=== PATIENT | female | born 1950 | race Caucasian/White ===

== ENCOUNTER 2023-01-09 10:41 | Outpatient (RCR) | payer MEDICARE, OTHER, SELFPAY | END 2023-02-26 11:42 | disposition home or self-care (01) | LOC: PT 10:41 | DX: S82.009D Unspecified fracture of unspecified patella, subsequent encounter for closed fracture with routine healing (principal) | CPT/HCPCS: 97110; 97112; 97113; 97140; 97162 ==

== ENCOUNTER 2023-02-04 08:47 | Outpatient (OUT) | payer MEDICARE, OTHER, SELFPAY ==
--- NOTE | 2023-02-04 08:58 | US_ITS ---
[address] [address] Patient Name: SALOMÓN ROMERO MRN: [id number] date: 1950 Sex: F Assigned Patient Location: US Current Patient Location: US Accession/Order Number: [id number] Exam Date: 02/04/2023 09:00 Report Date: 02/04/2023 11:06 At the request of: SAIMA RIGGS Procedure: US thyroid EXAMINATION: US thyroid HISTORY: Thyroid Nodule E04.1 COMPARISON: Ultrasound thyroid 10/18/2022 FINDINGS: RIGHT LOBE: Normal size and echotexture. Contains an incidental 4 mm colloid cyst. Lobe size: 4.0 x 1.5 x 1.6 cm LEFT LOBE: Homogeneous echotexture. Contains a stable 13 x 10 x 6 mm TR 3 nodule. Lobe size: 3.0 x 1.1 x 1.3 cm ISTHMUS: Normal size and echotexture. Thickness: 2 mm US/US thyroid IMPRESSION: 1. Stable 13 mm TR 3 nodule within left lobe. Follow-up in one year is recommended. TR3 (mildly suspicious): > 1.5 cm, follow-up ultrasound in 1, 3, and 5 years. > 2.5 cm, fine needle aspiration. Electronically authenticated by: LUPIS OZUNA Date: 02/04/2023 11:06
== END 2023-02-04 08:48 | disposition home or self-care (01) ==
LOC: US 08:48
PROVIDERS: Visit Provider Family Medicine
DX: E04.1 Nontoxic single thyroid nodule (principal)
CPT/HCPCS: 76536

== ENCOUNTER 2023-05-22 14:50 | Outpatient (REF) | payer MEDICARE, OTHER, SELFPAY ==
[2023-05-22 15:59] LABS: Bilirubin Urine NEGATIVE (NEGATIVE); Blood Urine NEGATIVE (NEGATIVE); Clarity Urine CLEAR (CLEAR); Color Urine LT. YELLOW (YELLOW); Glucose Urine UA NEGATIVE (NEGATIVE); Ketones Urine NEGATIVE (NEGATIVE); Leukocyte Esterase Urine MODERATE (NEGATIVE); Nitrite Urine POSITIVE (NEGATIVE); Protein Urine NEGATIVE (NEG/TRACE); Urobilinogen Urine 0.2 EU/dL (0.2-1.0)
[2023-05-22 16:19] LABS: Bacteria Urine LARGE #/HPF (NONE SEEN); Crystals Seen? None Seen #/HPF (None Seen); Mucus Urine NONE SEEN (NONE SEEN); RBC Urine 0-2 #/HPF (0-2); Squamous Epithelial Cell Urine FEW #/LPF (NONE/RARE)
[2023-05-22 16:20] LABS: Cast Seen? NONE SEEN #/LPF (NONE SEEN)
== END 2023-05-22 14:51 | disposition home or self-care (01) ==
LOC: LAB 14:50
PROVIDERS: Visit Provider Nurse Practitioner Family
DX: R35.0 Frequency of micturition (principal)
CPT/HCPCS: 81001; 87086; 87150; 87186

== ENCOUNTER 2023-07-18 09:26 | Outpatient (OUT) | payer MEDICARE, OTHER, SELFPAY ==
[2023-07-18 09:52] LABS: Bilirubin Urine NEGATIVE (NEGATIVE); Blood Urine NEGATIVE (NEGATIVE); Clarity Urine SL CLOUDY (CLEAR); Color Urine LT. YELLOW (YELLOW); Glucose Urine UA NEGATIVE (NEGATIVE); Ketones Urine NEGATIVE (NEGATIVE); Leukocyte Esterase Urine LARGE (NEGATIVE); Nitrite Urine NEGATIVE (NEGATIVE); Protein Urine NEGATIVE (NEG/TRACE); Urobilinogen Urine 0.2 EU/dL (0.2-1.0); pH Urine 5.5 (5.0-9.0)
[2023-07-18 10:00] LABS: WBC Urine 20-50 #/HPF (NONE SEEN)
[2023-07-18 10:01] LABS: Bacteria Urine SMALL #/HPF (NONE SEEN); Cast Seen? NONE SEEN #/LPF (NONE SEEN); Crystals Seen? None Seen #/HPF (None Seen); Mucus Urine NONE SEEN (NONE SEEN); RBC Urine 0-2 #/HPF (0-2); Squamous Epithelial Cell Urine FEW #/LPF (NONE/RARE)
== END 2023-07-18 09:27 | disposition home or self-care (01) ==
LOC: LAB 09:28
PROVIDERS: PCP Nurse Practitioner Family; Visit Provider Nurse Practitioner Family
DX: R30.0 Dysuria (principal)
CPT/HCPCS: 81001; 87086; 87150; 87186

== ENCOUNTER 2023-07-31 16:00 | Outpatient (REF) | payer MEDICARE, OTHER, SELFPAY ==
[2023-07-31 16:49] LABS: Bilirubin Urine NEGATIVE (NEGATIVE); Blood Urine NEGATIVE (NEGATIVE); Color Urine LT. YELLOW (YELLOW); Glucose Urine UA NEGATIVE (NEGATIVE); Ketones Urine NEGATIVE (NEGATIVE); Leukocyte Esterase Urine SMALL (NEGATIVE); Nitrite Urine NEGATIVE (NEGATIVE); Protein Urine NEGATIVE (NEG/TRACE); Specific Gravity Urine 1.025 (1.005-1.025); Urobilinogen Urine 0.2 EU/dL (0.2-1.0)
[2023-07-31 16:56] LABS: Clarity Urine SLIGHTLY CLOUDY (CLEAR); RBC Urine NONE SEEN #/HPF (0-2)
[2023-07-31 16:57] LABS: Bacteria Urine TRACE #/HPF (NONE SEEN); Cast Seen? NONE SEEN #/LPF (NONE SEEN); Crystals Seen? None Seen #/HPF (None Seen); Mucus Urine NONE SEEN (NONE SEEN); Squamous Epithelial Cell Urine RARE #/LPF (NONE/RARE)
== END 2023-07-31 16:01 | disposition home or self-care (01) ==
LOC: LAB 16:00
PROVIDERS: PCP Nurse Practitioner Family; Visit Provider Nurse Practitioner Family
DX: R30.0 Dysuria (principal)
CPT/HCPCS: 81001; 87086

== ENCOUNTER 2023-08-05 16:21 | Outpatient (REF) | payer MEDICARE, OTHER, SELFPAY ==
[2023-08-05 16:41] LABS: Bilirubin Urine NEGATIVE (NEGATIVE); Blood Urine NEGATIVE (NEGATIVE); Clarity Urine CLEAR (CLEAR); Color Urine LT. YELLOW (YELLOW); Glucose Urine UA NEGATIVE (NEGATIVE); Ketones Urine NEGATIVE (NEGATIVE); Leukocyte Esterase Urine SMALL (NEGATIVE); Nitrite Urine NEGATIVE (NEGATIVE); Protein Urine NEGATIVE (NEG/TRACE); Specific Gravity Urine 1.025 (1.005-1.025); Urobilinogen Urine 0.2 EU/dL (0.2-1.0); pH Urine 5.5 (5.0-9.0)
[2023-08-05 16:54] LABS: Bacteria Urine SMALL #/HPF (NONE SEEN); Cast Seen? NONE SEEN #/LPF (NONE SEEN); Crystals Seen? None Seen #/HPF (None Seen); Mucus Urine NONE SEEN (NONE SEEN); RBC Urine 0-2 #/HPF (0-2); Squamous Epithelial Cell Urine MODERATE #/LPF (NONE/RARE)
== END 2023-08-05 16:22 | disposition home or self-care (01) ==
LOC: LAB 16:21
PROVIDERS: PCP Nurse Practitioner Family; Visit Provider Nurse Practitioner Family
DX: N39.0 Urinary tract infection, site not specified (principal)
CPT/HCPCS: 81001; 87086

== ENCOUNTER 2023-08-26 06:48 | Outpatient (OUT) | payer MEDICARE, OTHER, SELFPAY ==
--- NOTE | 2023-08-26 08:00 | CT_ITS ---
[address] [address] Patient Name: SALOMÓN ROMERO MRN: [id number] date: 1950 Sex: F Assigned Patient Location: CT Current Patient Location: CT Accession/Order Number: [id number] Exam Date: 08/26/2023 07:55 Report Date: 08/26/2023 08:23 At the request of: SHAMIR RECINOS Procedure: CT abdomen pelvis wo con EXAMINATION: CT abdomen pelvis wo con HISTORY: Flank Pain R10.9, Urinary Tract Infection N39.0 COMPARISON: No relevant comparison available. TECHNIQUE: Axial, Coronal, and Sagittal images were created without IV contrast. Dose reduction techniques were achieved by using automated exposure control and/or adjustment of mA and/or kV according to patient size and/or use of iterative reconstruction technique. FINDINGS: LUNG BASES: Right basilar bronchiectasis LIVER: No enlargement, atrophy, abnormal density, or significant focal lesion. BILIARY: No dilatation or calcification. PANCREAS: No lesion, fluid collection, ductal dilatation, or atrophy. SPLEEN: No enlargement or focal lesion. ADRENALS: No mass or enlargement. KIDNEYS: Punctate bilateral nonobstructing nephrolithiasis. No hydronephrosis BOWEL/MESENTERY: No visible mass, obstruction, or bowel wall thickening. AORTA/VASCULAR: No aneurysm. Moderate diffuse atherosclerosis RETROPERITONEUM: No mass or adenopathy. LYMPH NODES: No adenopathy. URINARY BLADDER: Moderate fluid distention PELVIC ORGANS: Hysterectomy ABDOMINAL WALL: Density in the left breast possibly an implant, partially visualized BONES: No bony lesion or fracture. Rotatory levocurvature with moderate degenerative changes OTHER: Negative. CT/CT abdomen pelvis wo con IMPRESSION: No acute abnormality Electronically authenticated by: ILDEFONSO HO Date: 08/26/2023 08:23
== END 2023-08-26 06:49 | disposition home or self-care (01) ==
LOC: CT 06:48
PROVIDERS: PCP Nurse Practitioner Family; Visit Provider Urology
DX: R10.9 Unspecified abdominal pain (principal); N39.0 Urinary tract infection, site not specified
CPT/HCPCS: 74176

== ENCOUNTER 2023-09-08 07:22 | Day surgery (SDC) | payer MEDICARE, OTHER, SELFPAY ==
[2023-09-08 07:37] VITALS: BP 150/86; PULSE 69; RESP 20; TEMP 36.2; O2SAT 100
[2023-09-08] MEDS: LIDOCAINE 2% JELLY 10 ML UR (08:49)
[2023-09-08 08:52] VITALS: BP 134/87; PULSE 67; RESP 18; O2SAT 100
--- NOTE | 2023-09-08 09:01 | P.URON_ITS ---
Urology Surgery Operative Note Operative Note Procedure Date: 09/08/23 Time Out Performed: yes Pre-op Diagnosis: Urethral mass Post-op Diagnosis: same as pre-op Procedures performed: Cystoscopy Anesthesia: local Primary Surgeon: Star Campos Complications: None Estimated blood loss (mL): 0 Findings: Urethral prolapse Specimens: None Indications for Procedures: This lady has a urethral mass that she has palpated. It has been bothering her quite a bit. She has had a UTI. She is currently taking daily Augmentin. She now presents for cystoscopy and possible urethral dilation. She has signed an informed consent after risks were explained. Detailed description of Procedure: The patient was kept on the [facility] bed and brought to the endoscopy suite. She was in the supine position. Her legs were frog-legged and her perineum and genitalia were sterilely prepped and draped in the usual fashion. Timeout was done by all parties in the room. We all agreed upon the patient's identification and the planned procedures for this patient. 2% lidocaine gel was passed per urethra. I started by inspecting her urethra. 1 could see there was a 1-1/2 to 2 cm protruding fleshy mass. This seems to be simply prolapse of her urethral mucosa versus a neoplasm. I then passed a flexible cystoscope per urethra and into the bladder. Careful street endoscopy revealed no evidence of any tumors stones or erythematous mucosal lesions. The scope was retroverted upon itself and no new findings were noted. There was high-grade trabeculation. The scope was then removed. With Valsalva maneuver she did not leak. She had no prolapse. She was then discharged to home. I did send a prescription for Myrbetriq 50 mg daily. We will get her scheduled for excision of urethral prolapse under anesthesia.
[2023-09-08 09:03] VITALS: BP 141/72; PULSE 61; RESP 18; O2SAT 98
== END 2023-09-08 09:11 | disposition home or self-care (01) ==
PROVIDERS: PCP Nurse Practitioner Family; Visit Provider Urology
PROC: (CPT 52000; principal; 2023-09-08 08:05)
DX: N81.0 Urethrocele (principal); R33.9 Retention of urine, unspecified; Z87.440 Personal history of urinary (tract) infections; Z85.3 Personal history of malignant neoplasm of breast; M19.90 Unspecified osteoarthritis, unspecified site; Z87.891 Personal history of nicotine dependence; Z90.10 Acquired absence of unspecified breast and nipple; Z79.899 Other long term (current) drug therapy
CPT/HCPCS: 52000

== ENCOUNTER 2023-09-11 14:16 | Outpatient (OUT) | payer MEDICARE, OTHER, SELFPAY ==
--- NOTE | 2023-09-11 14:22 | ECG_ITS ---
[facility] Test Date: 2023-09-11 Pat Name: SALOMÓN ROMERO Department: Room: - Gender: Female [employer]ter: : 1950 Requested By: SHAMIR RECINOS Order Number: [id number] Reading MD: MAICOL LIMA Measurements Intervals [place] Rate: 65 P: 79 TN: 183 QRS: 9 QRSD: 74 T: 34 QT: 418 QTc: 436 Interpretive Statements SINUS RHYTHM WARNING: DATA QUALITY MAY AFFECT INTERPRETATION No previous ECG available for comparison Electronically Signed On 09-11-2023 21:28:03 EST by MAICOL LIMA
[2023-09-11 15:17] LABS: Basophils Percent Auto 0.8 % (0.2-2.0); Eosinophils Absolute Auto 0.2 10^3/uL (0.0-0.7); Hematocrit 37.6 % (36.0-48.0); Hemoglobin 12.1 g/dL (12.0-16.0); Immature Granulocytes Abs Auto 0.01 10^3/uL (0.00-0.03); Immature Granulocytes Pct Auto 0.2 % (0.0-0.5); Lymphocytes Percent Auto 39.1 % (20.5-60.0); Mean Corpuscular HGB Conc 32.2 g/dL (29.9-35.2); Mean Corpuscular Hemoglobin 29.7 pg (26.7-34.0); Mean Corpuscular Volume 92.4 fL (81.0-99.0); Mean Platelet Volume 9.7 fL (9.5-13.5); Monocytes Absolute Auto 0.3 10^3/uL (0.3-0.8); Monocytes Percent Auto 6.5 % (1.7-12.0); Neutrophils Absolute Auto 2.6 10^3/uL (1.4-6.5); Neutrophils Percent Auto 50.4 % (43.0-75.0); Platelet Count 238 10^3/uL (150-450); Red Blood Count 4.07 10^6/uL (4.20-5.40); Red Cell Distribution Width 13.6 % (11.0-15.0); White Blood Count 5.1 10^3/uL (4.0-11.0)
[2023-09-11 15:42] LABS: BUN Creatinine Ratio 23.8; Calcium 9.1 mg/dL (8.5-10.1); Carbon Dioxide 24.9 mmol/L (21.0-32.0); Chloride 107 mmol/L (98-107); Estimated GFR (African America >60 (>=60); Estimated GFR (Non-African Ame >60 (>=60); Glucose 93 mg/dL (74-106); Potassium 3.9 mmol/L (3.5-5.1); Sodium 142 mmol/L (136-145)
[2023-09-11 15:43] LABS: INR 1.04; Partial Thromboplastin Time 26.6 sec (22.3-36.2)
== END 2023-09-11 14:17 | disposition home or self-care (01) ==
LOC: PST 14:17
PROVIDERS: PCP Nurse Practitioner Family; Visit Provider Urology
DX: Z01.810 Encounter for preprocedural cardiovascular examination (principal); Z01.812 Encounter for preprocedural laboratory examination; N81.0 Urethrocele
CPT/HCPCS: 80048; 85025; 85610; 85730; 93005

== ENCOUNTER 2023-09-15 10:07 | Outpatient (OUT) | payer MEDICARE, OTHER, SELFPAY ==
[2023-09-15 10:57] LABS: Estimated Average Glucose 111 mg/dL; Glycohemoglobin A1C 5.5 % (4.5-6.2)
[2023-09-15 11:14] LABS: Alanine Aminotransferase 19 U/L (14-59); Albumin Globulin Ratio 0.9; Albumin Level 3.8 g/dL (3.4-5.0); Alkaline Phosphatase 87 U/L (46-116); Anion Gap 13.2; Aspartate Amino Transferase 17 U/L (15-37); BUN Creatinine Ratio 16.9; Bilirubin Total 0.5 mg/dL (0.2-1.0); Calcium 9.4 mg/dL (8.5-10.1); Carbon Dioxide 27.7 mmol/L (21.0-32.0); Chloride 110 mmol/L (98-107); Chol HDL Ratio 2.2; Cholesterol 188 mg/dL (<=200); Estimated GFR (African America >60 (>=60); Estimated GFR (Non-African Ame >60 (>=60); Free T3 2.65 pg/mL (2.18-3.98); Globulin 4.2 g/dL; Glucose 97 mg/dL (74-106); HDL Cholesterol 84 mg/dL (40-60); Potassium 3.9 mmol/L (3.5-5.1); Sodium 147 mmol/L (136-145); Thyroid Stimulating Hormone 2.631 uIU/mL (0.358-3.740); Triglycerides 90 mg/dL (<=150)
[2023-09-16 06:13] LABS: Insulin 6.4 uIU/mL (2.6-24.9)
== END 2023-09-15 10:08 | disposition home or self-care (01) ==
LOC: LAB 10:09
PROVIDERS: PCP Nurse Practitioner Family; Visit Provider Nurse Practitioner Family
DX: E78.5 Hyperlipidemia, unspecified (principal); R73.09 Other abnormal glucose; Z79.899 Other long term (current) drug therapy; R53.83 Other fatigue; E55.9 Vitamin D deficiency, unspecified; Z85.3 Personal history of malignant neoplasm of breast; D64.9 Anemia, unspecified
CPT/HCPCS: 36415; 80053; 80061; 82306; 83036; 83525; 83540; 84436; 84443; 84481; 86300

== ENCOUNTER 2023-09-25 08:35 | Day surgery (SDC) | payer MEDICARE, OTHER, SELFPAY ==
[2023-09-11 14:57] VITALS: BP 124/82; PULSE 73; RESP 16; TEMP 36.3; O2SAT 98; BMI 26.2
[2023-09-25] VITALS (8 sets, daily range): BP systolic 111–151; BP diastolic 74–94; PULSE 68–81; RESP 12–20; TEMP 36.1–36.6; O2SAT 93–100; BMI 25.8
[2023-09-25] MEDS: LACTATED RINGER'S SOLUTION 1,000 ML 50 ML IV (09:12)
[2023-09-25] MEDS: CEFAZOLIN SODIUM/DEXTROSE,ISO 1 GM/50 ML IV.SOLN IV (10:10)
--- NOTE | 2023-09-25 11:32 | PM.URSON ---
Urology Surgery Operative Note Operative Note Procedure Date: 09/25/23 Time Out Performed: yes Pre-op Diagnosis: Urethral prolapse and urinary frequency Post-op Diagnosis: same as pre-op Procedures performed: 1. Cystoscopy. 2. Excision of urethral prolapse. Anesthesia: General-LMA Primary Surgeon: Star Campos Complications: None Estimated blood loss (mL): 5 Findings: Significant urethral prolapse. Specimens: Urethral prolapse segment Drains: 18 Azerbaijani Martinez catheter to the bladder Indications for Procedures: This lady has had urethral prolapse for many years. She feels that it has been getting larger and it is now bothersome for her. She is getting infections also. She was desirous for excision of the urethral prolapse. Risks were explained to her. Some of these include bleeding, infection, anesthesia, urinary incontinence and recurrence to name a few. Detailed description of Procedure: The patient was brought to the operating room and placed on the operating room table in the supine position. SCDs were placed on the lower extremities and turned on and functioning during the entire case. Timeout was done by all parties in the room. We all agreed upon the patient's identification and the planned procedures for this patient. Genn. anesthesia was then administered. The patient was then repositioned into the modified dorsal lithotomy position. All pressure points were satisfactorily padded. Genitalia were sterilely prepped and draped in usual fashion. I started by passing a 22 Azerbaijani Olympus cystoscope per urethra and carefully evaluating the proximal and distal urethra. Her prolapse was mostly posterior in location. I then used a Allis to gain a purchase on the prolapse and then the needle tip Bovie cautery was used to excise this redundant protruding tissue. This was sent for permanent sections. I then used 4-0 Vicryl in an interrupted fashion to timo the mucosa circumferentially. Upon completion the scope was passed back in. There was no evidence of bleeding. Her anterior and mid urethra were not touched by the excision. The scope was removed. I then placed an 18 Azerbaijani Martinez catheter in the bladder. She was then transferred to a [place] bed and wheeled to PACU in stable condition. Urinary Catheter Management Urinary Catheter Management Urethral: Cath placed during this visit: no
== END 2023-09-25 12:40 | disposition home or self-care (01) ==
PROVIDERS: PCP Nurse Practitioner Family; Visit Provider Urology
PROC: (CPT 53275; principal; 2023-09-25 09:40)
DX: N81.0 Urethrocele (principal); N36.2 Urethral caruncle; R35.0 Frequency of micturition; D64.9 Anemia, unspecified; M19.90 Unspecified osteoarthritis, unspecified site; H91.90 Unspecified hearing loss, unspecified ear; Z87.891 Personal history of nicotine dependence; Z85.3 Personal history of malignant neoplasm of breast; Z90.10 Acquired absence of unspecified breast and nipple; Z87.440 Personal history of urinary (tract) infections; R35.1 Nocturia; N39.41 Urge incontinence; R10.9 Unspecified abdominal pain
CPT/HCPCS: 53275; 36415; 88305; 88342; 88360; 99999; J1094

== ENCOUNTER 2023-09-30 09:58 | Outpatient (OUT) | payer MEDICARE, OTHER, SELFPAY ==
[2023-09-30 11:28] LABS: Alanine Aminotransferase 38 U/L (14-59); Albumin Globulin Ratio 0.8; Albumin Level 3.5 g/dL (3.4-5.0); Alkaline Phosphatase 91 U/L (46-116); Anion Gap 12.6; Aspartate Amino Transferase 17 U/L (15-37); BUN Creatinine Ratio 15.5; Bilirubin Total 0.4 mg/dL (0.2-1.0); Calcium 9.5 mg/dL (8.5-10.1); Carbon Dioxide 28.7 mmol/L (21.0-32.0); Chloride 105 mmol/L (98-107); Estimated GFR (African America >60 (>=60); Estimated GFR (Non-African Ame >60 (>=60); Globulin 4.4 g/dL; Glucose 80 mg/dL (74-106); Potassium 4.3 mmol/L (3.5-5.1); Sodium 142 mmol/L (136-145); Total Protein 7.9 g/dL (6.4-8.2)
== END 2023-09-30 09:59 | disposition home or self-care (01) ==
LOC: LAB 10:00
PROVIDERS: PCP Nurse Practitioner Family; Visit Provider Nurse Practitioner Family
DX: R89.9 Unspecified abnormal finding in specimens from other organs, systems and tissues (principal)
CPT/HCPCS: 36415; 80053

== ENCOUNTER 2023-11-18 21:50 | Outpatient (REF) | payer MEDICARE, OTHER, SELFPAY | END 2023-11-18 21:51 | disposition home or self-care (01) | LOC: LAB 21:50 | PROVIDERS: PCP Nurse Practitioner Family; Visit Provider Obstetrics & Gynecology | DX: Z01.419 Encounter for gynecological examination (general) (routine) without abnormal findings (principal) | CPT/HCPCS: G0145 ==

== ENCOUNTER 2023-12-24 08:31 | Outpatient (OUT) | payer MEDICARE, OTHER, SELFPAY ==
--- NOTE | 2023-12-24 08:38 | MM_ITS ---
Patient Name: SALOMÓN ROMERO MR#: [id number] : 1950 Exam Date: 12/24/2023 Ordering Doctor: DR Danielito Morales . RADIOLOGY REPORT PROCEDURE: MM TOMOSYNTHESIS SCREENING RT COMPARISON: MG MAMM DX 3D RT CAD, 12/18/2022. INDICATIONS: Screening Calculator Name NCI Breast Cancer Risk Assessment Tool 5 Year Breast Cancer Risk n/a% Lifetime Breast Cancer Risk n/a% Personal Breast Cancer Yes, 48, mastectomy Personal Ovarian Cancer No Treatments None Family Cancers Sister with colon cancer at age 54. LOCATION: [facility] BREAST COMPOSITION: The breasts are heterogeneously dense,which may obscure small masses. FINDINGS: DIAGNOSTIC CATEGORY 2--BENIGN FINDING: Scattered benign-appearing calcifications are present. RIGHT BREAST: No significant suspicious finding. LEFT BREAST: No significant suspicious finding. RECOMMENDATIONS: ROUTINE MAMMOGRAM AND CLINICAL EVALUATION IN 12 MONTHS. PLEASE NOTE: A NORMAL MAMMOGRAM DOES NOT EXCLUDE THE POSSIBILITY OF BREAST CANCER. A CLINICALLY SUSPICIOUS PALPABLE LUMP SHOULD BE BIOPSIED. Dictated by: Jef Torres MD on 12/24/2023 at 13:03 Approved by: Jef Torres MD on 12/24/2023 at 13:04
== END 2023-12-24 08:32 | disposition home or self-care (01) ==
PROVIDERS: PCP Nurse Practitioner Family; Visit Provider Obstetrics & Gynecology
DX: Z12.31 Encounter for screening mammogram for malignant neoplasm of breast (principal); Z78.0 Asymptomatic menopausal state; Z80.0 Family history of malignant neoplasm of digestive organs
CPT/HCPCS: 77063; 77067

== ENCOUNTER 2023-12-25 09:59 | Outpatient (REF) | payer MEDICARE, OTHER, SELFPAY ==
[2023-12-25 13:03] LABS: Internal Control Within Normal Limits; SARS-CoV-2 Ag NEGATIVE (NEGATIVE)
[2023-12-25 15:36] LABS: SARS-CoV-2 NAA NOT DETECTED (NOT DETECTE)
== END 2023-12-25 10:00 | disposition home or self-care (01) ==
LOC: LAB 09:59
PROVIDERS: PCP Nurse Practitioner Family; Visit Provider Nurse Practitioner Family
DX: J40 Bronchitis, not specified as acute or chronic (principal)
CPT/HCPCS: 87635; 87811

== ENCOUNTER 2023-12-26 09:47 | Outpatient (OUT) | payer MEDICARE, OTHER, SELFPAY ==
--- NOTE | 2023-12-26 10:04 | XR_ITS ---
The [address] [address] Patient Name: SALOMÓN ROMERO MRN: [id number] date: 1950 Sex: F Assigned Patient Location: [facility] Current Patient Location: [facility] Accession/Order Number: [id number] Exam Date: 12/26/2023 09:53 Report Date: 12/26/2023 11:59 At the request of: TANIA ARREDONDO Procedure: XR DEXA axial skeleton EXAMINATION: XR DEXA axial skeleton HISTORY: Post Menopausal State Z78.0 COMPARISON: No relevant comparison available. TECHNIQUE: Dual-energy X-ray absorptiometry (DXA) was performed. FINDINGS: SPINE ANALYSIS: Prior back surgery. HIP ANALYSIS: Lowest bone mineral density is within the right femoral neck, 0.659 g/cm2. T-score (standard deviation relative to young adult mean): -2.7 . XR/XR DEXA axial skeleton IMPRESSION: [employer] Classification: Osteoporosis - High Fracture Risk FRAX: Cannot be calculated. Electronically authenticated by: LUPIS OZUNA Date: 12/26/2023 11:59
== END 2023-12-26 09:48 | disposition home or self-care (01) ==
LOC: RAD 09:49
PROVIDERS: PCP Nurse Practitioner Family; Visit Provider Obstetrics & Gynecology
DX: M81.0 Age-related osteoporosis without current pathological fracture (principal); Z78.0 Asymptomatic menopausal state
CPT/HCPCS: 77080

== ENCOUNTER 2024-02-17 13:45 | Outpatient (OUT) | payer MEDICARE, OTHER, SELFPAY ==
--- NOTE | 2024-02-17 13:48 | US_ITS ---
The [address] [address] Patient Name: SALOMÓN ROMERO MRN: [id number] date: 1950 Sex: F Assigned Patient Location: US Current Patient Location: Accession/Order Number: [id number] Exam Date: 02/17/2024 14:00 Report Date: 02/18/2024 07:08 At the request of: BART DOUGHERTY Procedure: US thyroid EXAMINATION: US thyroid HISTORY: Nontoxic Single Thyroid Nodule E04.1 COMPARISON: 02/04/2023 TECHNIQUE: Sonographic images of the thyroid gland were obtained. FINDINGS: The right thyroid lobe measures 3.6 x 1.2 x 1.5 cm. Single 6 mm cystic nodule Thyroid isthmus measures 2.4 mm, homogeneous with no nodule. The left thyroid lobe measures 3.4 x 1.1 x 1.1 cm. Single nodule. Nodule 1:1.4 x 1.2 x 0.6 cm. Solid, hyperechoic, wide, smooth margins, no calcifications. TR 3 US/US thyroid IMPRESSION: Minimal increase in size of a now 1.4 cm left thyroid TR 3 nodule TI-RADS: The [employer] TI-RADS committee's white paper recommendations for thyroid lesions classified as TR3 (mildly suspicious) are listed below: > 1.5 cm. Follow-up ultrasound in 1, 3, and 5 years. > 2.5 cm. FNA. J. Am Eduardo Radiol 2017;14:587-595. Electronically authenticated by: ILDEFONSO HO Date: 02/18/2024 07:08
== END 2024-02-17 13:46 | disposition home or self-care (01) ==
LOC: US 13:45
PROVIDERS: PCP Nurse Practitioner Family; Visit Provider Nurse Practitioner Family
DX: E04.1 Nontoxic single thyroid nodule (principal)
CPT/HCPCS: 76536

== ENCOUNTER 2024-04-26 12:21 | Outpatient (OUT) | payer MEDICARE, OTHER, SELFPAY ==
--- OUTSIDE RECORDS SUMMARY | 2024-04-26 12:30 | XMS_ITS | CCD ---
Author Organization [facility] Care Team Providers Care Milieu Coordinator Name Role Phone Se Campbellelle Unavailable Unavailable Adrian, Jing Unavailable Unavailable Adrian, Jing Unavailable Unavailable ADRIAN, JING Attending Unavailable ADRIAN, JING Primary Care Unavailable JUAN RUTHERFORD Attending Unavailable ADRIAN, JING Primary Care Unavailable Adrian, Jing Unavailable Unavailable Adrian, Jing R Unavailable Unavailable Adrian, Jing R Unavailable Unavailable Unavailable KRISTYN DOUGHERTY Attending Unavailable LADONNA, KRISTYN Consulting Unavailable LADONNA, KRISTYN Admitting Unavailable LADONNA, KRISTYN Attending Unavailable LADONNA, KRISTYN Admitting Unavailable LADONNA, KRISTYN Primary Care Unavailable DR ILDEFONSO HO V Consulting Unavailable LADONNA, KRISTYN Admitting Unavailable LADONNA, KRISTYN Primary Care Unavailable LADONNA, KRISTYN Attending Unavailable LADONNA, KRISTYN Consulting Unavailable LADONNA, KRISTYN Attending Unavailable DR LUPIS OZUNA Consulting Unavailable LADONNA, KRISTYN Admitting Unavailable LADONNA, KRISTYN Primary Care Unavailable LADONNA, KRISTYN Consulting Unavailable DR ILDEFONSO HO V Consulting Unavailable LADONNA, KRISTYN Attending Unavailable LADONNA, KRISTYN Admitting Unavailable LADONNA, KRISTYN Primary Care Unavailable LADONNA, KRISTYN Consulting Unavailable LADONNA, KRISTYN Attending Unavailable LADONNA, KRISTYN Admitting Unavailable LADONNA, KRISTYN Consulting Unavailable Ladonna, Kristyn S Unavailable MD CARLITO HORVATH Attending Laura camble DO JING CAMPBELL Referring Unavail able DO JING CAMPBELL Attending Unavail able DO JING CAMPBELL Primary Care Unavail able MD SANDRA TAYLOR Referring Unavailable MD SANDRA TAYLOR Attending Unavailable MD SANDRA TAYLOR Referring Unavailable MD SANDRA TAYLOR Attending Unavailable DO JING CAMPBELL Primary Care Unavail able MD SANDRA TAYLOR Referring Unavailable MD SANDRA TAYLOR Attending Unavailable MD SANDRA TAYLOR Attending Unavailable MD SANDRA TAYLOR Referring Unavailable MD CARLITO HORVATH Attending Laura MD CARLITO Crow Admitting Laura vailable ADRIAN, DO JING KEREN Primary Care Unavail able ADRIAN, DO JING KEREN Referring Unavail able ADRIAN, DO JING KEREN Attending Unavail able Adrian DO, Jing Keren Primary Care Provider KRISTYN DOUGHERTY Primary Care Physician [phone] Lawrence MEDINA Referring Unavailable ADRIAN, JING KEREN Primary Care Unavailabl e Lawrence MEDINA Attending Unavailable ADRIAN, JIGN KEREN Primary Care Unavailmaricruz e Star Recinos Attending Unavailable Star Recinos Admitting Unavailable TANIA ARREDONDO Attending Unavailable MD Star Recinos Attending Provider [phone] CARLITO HORVATH Attending Unavailable LADONNA, KRISTYN S Primary Care Unavailable LADONNA, KRISTYN S Primary Care Unavailable Ghazoul, Jadyn Attending Unavailable Ghazoul, Jadyn Referring Unavailable Ladonna, Kristyn Primary Care Unavailable Ladonna, Kristyn Referring Unavailable Ghazoul, Jadyn Attending Unavailable Ladonna, Kristyn Primary Care Unavailable Ladonna, Kristyn Referring Unavailable Ladonna, Kristyn Primary Care Unavailable Ghazoul, Jadyn Attending Unavailable Ladonna, Kristyn Primary Care Unavailable Ghazoul, Jadyn Attending Unavailable Ladonna, Kristyn Referring Unavailable Ghazoul, Jadyn Referring Unavailable Ghazoul, Jadyn Consulting Unavailable Ladonna, Kristyn Primary Care Unavailable Ghazoul, Jadyn Attending Unavailable Ladonna, Kristyn Primary Care Unavailable Ghazoul, Jadyn Attending Unavailable Ladonna, Kristyn Referring Unavailable Ghazoul, Jadyn Attending Unavailable Ghazoul, Jadyn Attending Unavailable Ghazoul, Jadyn Attending Unavailable Star RECINOS Attending Unavailable Star RECINOS Attending Unavailable Star RCEINOS Attending Unavailable Star RECINOS Attending Unavailable LADONNA, KRISTYN S Referring Unavailable Star RECINOS Attending Unavailable Star RECINOS Attending Unavailable Star RECINOS Attending Unavailable Star RECINOS Attending Unavailable Star RECINOS Referring Unavailable Allergies Allergy Classification Reported Allergen(s) Allergy Type Date of Onset Reaction(s) Facility Acetaminophen (9 sources) Acetaminophen; Translations: [Tylenol] Drug Allergy [id number] Work Phone: (20 sources) Acetaminophen; Translations: [Tylenol] Drug Allergy Tinnitus (finding) [facility] (19 sources) Codeine; Translations: [Codeine Derivatives] Drug Allergy [id number] Work Phone: (15 sources) Mold Extract Drug Allergy [id number] [id number] Work Phone: (15 sources) [place] mold Allergy to substance (finding) [id number] [id number] Work Phone: (5 sources) Animal dander - Cats Allergy to substance (finding) [id number] 2532L Work Phone: (4 sources) Acetaminophen; Translations: [ACETAMINOPHEN] Drug Allergy 4 Other: See [facility] (2 sources) Codeine; Translations: [CODEINE] Drug Allergy 3 [facility] (1 source) Environmental Allergies: Uncoded; Translations: [Environmental Allergies: Uncoded] Propensity to adverse reactions (disorder) 4 [facility] (1 source) cat dander Drug allergy (disorder) 4 [facility] Medications Current Medications Medication Drug Class(es) Dates Sig (Normalized) Sig (Original) amoxicillin 875 mg / clavulanate 125 mg oral tablet (2 sources) Penicillin-class Antibacterial Start: 08-25-2023 End: 10-24-2023 take 1 tablet by mouth every twenty-four hours at mealtime Augmentin 875 mg oral tablet = 1 tab(s), Oral, q24hr, Take with probiotics and with food., X 30 day(s), # 30 tab(s), Refills(s) 1, Pharmacy: [facility]/pharmacy #[id number], 165, cm, 08/25/23 12:11:00 EST, Height/Length Dosing, 72, kg, 08/25/23 12:11:00 EST, Weight Dosing Start Date: 08/25/23 Stop Date: 10/24/23 Status: Ordered Azithromycin (2 sources) Macrolide Antimicrobial Start: 12-21-2023 Azithromycin Active 0 PO .COMPLEX December 21, 2023 12:00am For 250 mg dose pack: take 500 mg today (day 1), then 250 mg for 4 days (days 2-5) PO Start: 10-29-2021 Azithromycin 2 50 MG Oral Tablet TAKE 2 TABLETS ON DAY 1 THEN TAKE 1 TABLET A DAY FOR 4 DAYS. Quantity: 1 Refills: 0 Ordered: 29-Oct-2021 Jing aCmpbell DO Start : 29-Oct-2021 Active Calcium Citrate / Vitamin D (4 sources) Start: 08-25-2023 calcium-vitamin D Refill(s) 0 Start Date: 08/25/23 Status: Ordered Elderberry preparation (3 sources) Start: 10-06-2023 elderberry oral liquid Refill(s) 0 Start Date: 10/06/23 Status: Ordered 12 hr guaiFENesin 600 mg extended release oral tablet (1 source) Start: 12-21-2023 take 1 tablet by mouth twice daily, then take 1 tablet by mouth every twelve hours Guaifenesin (Mucinex) 600 mg tablet extended release 12hr Active 600 MG PO Twice daily 14 December 21, 2023 12:00am methylPREDNISolone 4 mg oral tablet (1 source) Corticosteroid Start: 12-21-2023 take 1 tablet by mouth once Methylprednisolone (Medrol (John Paul)) 4 mg tablets,dose pack Active 0 PO per package directions December 21, 2023 12:00am PO PER PKG DIR 24 hr mirabegron 50 mg extended release oral tablet (3 sources) beta3-Adrenergic Agonist Start: 10-06-2023 Myrbetriq 50 mg oral tablet, extended release Refills(s) 0 Start Date: 10/06/23 Status: Ordered multivitamin with iron (4 sources) Start: 08-25-2023 multivitamin with iron mL, Refill(s) 0 Start Date: 08/25/23 Status: Ordered Phentermine (6 sources) Sympathomimetic Amine Anorectic Start: 08-25-2023 take 1 mg by mouth once daily Adipex-P mg, Oral, Daily, Refills(s) 0 Start Date: 08/25/23 Status: Ordered Start: 11-21-2022 Phentermine HC l - 37.5 MG Oral Tablet Quantity: 30 Refills: 0 Ordered: 21-Nov-2022 DO Start : 21-Nov-2022 Active Completed/Discontinued Medications Medication Drug Class(es) Dates Sig (Normalized) Sig (Original) B Complex 1 TABS (1 source) B Complex 1 TABS Refills: 0 DO Active B Complex 1 TABS (20 sources) B Complex 1 TABS Quantity: 0 Refills: 0 Ordered: 30-Apr-2019 DO Active bimatoprost 0.3 mg/ml topical solution (20 sources) Prostaglandin Analog Bimatoprost 0.03 % External Solution APPLY 1 [facility] Bedtime Quantity: 1 Refills: 3 Ordered: 12-Apr-2022 Jing Campbell DO Active Bimatoprost 0.03 % External Solution APPLY 1 [facility] Bedtime Quantity: 1 Refills: 3 Ordered: 29-Oct-2021 Jing Campbell DO Active calcium carbonate 1500 mg / cholecalciferol 200 unt oral tablet (1 source) Vitamin D Start: 03-28-2015 take 1 tablet by mouth once daily calcium carbonate 600 mg-cholecalciferol 200 units (CALCIUM 600 + D,3,) 600 mg(1,500mg) -200 unit tab Take 1 tablet by mouth once daily. 0 03/28/2015 Active Comment on above: Take 1 tablet by sophia once daily. cefdinir 300 mg oral capsule (2 sources) Cephalosporin Antibacterial Start: 06-28-2022 Cefdinir 300 MG Oral Capsule Quantity: 20 Refills: 0 Ordered: 28-Jun-2022 DO Start : 28-Jun-2022 Active celecoxib 200 mg oral capsule (2 sources) Nonsteroidal Anti-inflammatory Drug Start: 05-08-2021 take 1 capsule by mouth once daily as needed Celecoxib 200 MG Oral Capsule TAKE 1 CAPSULE DAILY NEEDED. Quantity: 30 Refills: 2 Ordered: 08-May-2021 Jing Campbell DO Start : 08-May-2021 Active cephalexin 500 mg oral capsule (2 sources) Cephalosporin Antibacterial Start: 08-16-2022 Cephalexin 500 MG Oral Capsule Quantity: 40 Refills: 0 Ordered: 16-Aug-2022 DO Start : 16-Aug-2022 Active cholecalciferol 0.05 mg oral tablet (20 sources) Vitamin D Start: 07-10-2020 take 1 capsule by mouth once daily Vitamin D 50 MCG (1999) Oral Tablet TAKE 1 CAPSULE BY MOUTH DAILY. Quantity: 0 Refills: 0 Ordered: 10-Jul-2020 DO Start : 10-Jul-2020 Active clindamycin 10 mg/ml medicated pad (2 sources) Lincosamide Antibacterial Start: 03-28-2022 Clindamycin Phosphate 1 % External Swab Quantity: 60 Refills: 0 Ordered: 28-Mar-2022 DO Start : 28-Mar-2022 Active diclofenac sodium 75 mg delayed release oral tablet (2 sources) Nonsteroidal Anti-inflammatory Drug Start: 07-06-2022 Diclofenac Sodium 75 MG Oral Tablet Delayed Release Quantity: 60 Refills: 0 Ordered: 06-Jul-2022 DO Start : 06-Jul-2022 Active doxycycline hyclate 100 mg oral capsule (15 sources) Tetracycline-clas s Drug Start: 10-29-2021 take 1 capsule by mouth once Doxycycline Hyclate 100 MG Oral Capsule Take 1 capsule by mouth daily. (Per Derm) Quantity: 0 Refills: 0 Ordered: 29-Oct-2021 DO Start : 29-Oct-2021 Active escitalopram 10 mg oral tablet (15 sources) Serotonin Reuptake Inhibitor take 1 tablet by mouth once daily Escitalopram Oxalate 10 MG Oral Tablet TAKE 1 TABLET DAILY. Quantity: 90 Refills: 3 Ordered: 04-Apr-2021 Jing Campbell DO Active estradiol 0.1 mg/ml vaginal cream (6 sources) Estrogen Start: 11-20-2021 Estradiol 0.1 MG/GM Vaginal Cream Apply pea-sized amount to vulva twice daily x 2 weeks then 2 daily x 2 weeks then twice a week for maintenance Quantity: 1 Refills: 2 Ordered: 20-Nov-2021 Efra Barnett DO Start : 20-Nov-2021 Active OK to substitute any generic version of topical estrogen Rx covered by insurance ibuprofen 600 mg oral tablet (2 sources) Nonsteroidal Anti-inflammatory Drug Start: 11-20-2022 Ibuprofen 600 MG Oral Tablet Quantity: 100 Refills: 0 Ordered: 20-Nov-2022 DO Start : 20-Nov-2022 Active linaclotide 0.29 mg oral capsule (3 sources) Guanylate Cyclase-C Agonist Start: 04-20-2021 take 1 capsule by mouth once daily Linzess 290 MCG Oral Capsule TAKE 1 CAPSULE Daily Quantity: 90 Refills: 3 Ordered: 20-Apr-2021 Allyn Ba PA-C Start : 20-Apr-2021 Active meloxicam 15 mg oral tablet (7 sources) Nonsteroidal Anti-inflammatory Drug Start: 02-26-2021 take 1 tablet by mouth once daily Meloxicam 15 MG Oral Tablet TAKE 1 TABLET BY MOUTH DAILY Quantity: 30 Refills: 3 Ordered: 26-Feb-2021 Jing Campbell DO Start : 26-Feb-2021 Active methylPREDNISolone 4 MG Oral Tablet Therapy Pack (3 sources) Start: 04-12-2022 methylPREDNISolone 4 MG Oral Tablet Therapy Pack USE DIRECTED Quantity: 1 Refills: 0 Ordered: 12-Apr-2022 Jing Campbell DO Start : 12-Apr-2022 Active Start: 10-29-2021 methylPREDNISo lone 4 MG Oral Tablet Therapy Pack USE DIRECTED Quantity: 1 Refills: 0 Ordered: 29-Oct-2021 Jing Campbell DO Start : 29-Oct-2021 Active multivitamin (DAILY MULTIPLE) tablet (1 source) Start: 03-28-2015 take 1 tablet by mouth once daily multivitamin (DAILY MULTIPLE) tablet Take 1 tablet by mouth once daily. 0 03/28/2015 Active Comment on above: Take 1 tablet by sophia once daily. Multivitamin Oral Tablet (10 sources) Start: 02-20-2021 take 1 tablet by mouth once daily Multivitamin Oral Tablet TAKE 1 TABLET DAILY. Quantity: 0 Refills: 0 Ordered: 20-Feb-2021 DO Start : 20-Feb-2021 Active omeprazole 40 mg delayed release oral capsule (2 sources) Proton Pump Inhibitor Start: 10-14-2022 Omeprazole 40 MG Oral Capsule Delayed Release Quantity: 30 Refills: 0 Ordered: 14-Oct-2022 DO Start : 14-Oct-2022 Active polyethylene glycol 3350 282210 mg / potassium chloride 2970 mg / sodium bicarbonate 6740 mg / sodium chloride 5860 mg / sodium sulfate 37953 mg powder for oral solution (2 sources) Osmotic Laxative Start: 05-01-2022 GaviLyte-G 23 6 GM Oral Solution Reconstituted Quantity: 4000 Refills: 0 Ordered: 01-May-2022 DO Start : 01-May-2022 Active predniSONE 10 mg oral tablet (10 sources) Start: 02-20-2021 take 4 tablets by mouth once daily, then take 3 tablets by mouth once daily, then take 2 tablets by mouth once daily, then take 1 tablet by mouth once daily predniSONE 10 MG Oral Tablet 4 po qd x 3 then 3 po qd x 3 then 2 o qd x 3 then 1 po qd x 3 Quantity: 30 Refills: 0 Ordered: 20-Feb-2021 Jing Campbell DO Start : 20-Feb-2021 Active Start: 12-27-2020 take 4 tablets by mo uth once daily, then take 3 tablets by mouth once daily, then take 2 tablets by mouth once daily, then take 1 tablet by mouth once daily predniSONE 10 MG Oral Tablet 4 po qd x 3 then 3 po qd x 3 then 2 o qd x 3 then 1 po qd x 3 Quantity: 30 Refills: 0 Ordered: 27-Dec-2020 Jing Campbell DO Start : 27-Dec-2020 Active Start: 07-10-2020 predniSONE 10 MG Oral Tablet 4 po qd x 2 then 3 po qd x 2 then2 po qd x 2 then 1 po qd x 2 Quantity: 20 Refills: 0 Jing Campbell DO Start : 10-Jul-2020 Active sennosides, halfway 8.6 mg oral tablet (19 sources) Start: 04-04-2021 take 8 tablets by mouth once daily at bedtime Senokot 8.6 MG Oral Tablet Take 8 tabs PO QHS. Quantity: 0 Refills: 0 Ordered: 04-Apr-2021 DO Start : 04-Apr-2021 Active spironolactone 50 mg oral tablet (15 sources) Aldosterone Antagonist Start: 04-21-2019 Spironolactone 50 MG Oral Tablet TAKE ONE-HALF TABLET BY MOUTH DAILY FOR ONE WEEK THEN INCREASE TO ONE Quantity: 30 Refills: 0 Ordered: 21-Apr-2019 DO Start : 21-Apr-2019 Active topiramate 25 mg oral tablet (1 source) Start: 03-28-2015 take 1 tablet by mouth twice daily topiramate (TOPAMAX) 25 mg tablet Take 1 tablet by mouth twice daily. 0 03/28/2015 Active Comment on above: Take 1 tablet by sophia twice daily. tretinoin 0.25 mg/ml topical cream (13 sources) Retinoid Start: 09-05-2020 Tretinoin 0.025 % External Cream Quantity: 45 Refills: 0 Ordered: 05-Sep-2020 DO Start : 05-Sep-2020 Active vitamin e 450 mg oral capsule (14 sources) Start: 07-10-2020 take 1 capsule by mouth once daily Vitamin E 1000 UNIT Oral Capsule TAKE 1 CAPSULE BY MOUTH DAILY. Quantity: 0 Refills: 0 Ordered: 10-Jul-2020 DO Start : 10-Jul-2020 Active Problems Active Problems Problem Classification Problem Date Documented Da te Episodic/Chronic Abdominal pain (5 sources) Abdominal pain; Translations: [Unspecified abdominal pain] Onset: 08-25-2023 Episodic Acute bronchitis (15 sources) Acute bronchitis; Translations: [Acute bronchitis] Episodic Calculus of urinary tract (4 sources) Kidney stone; Translations: [Calculus of kidney] Onset: 10-06-2023 Episodic Cancer of breast (4 sources) Malignant neoplasm of unspecified site of unspecified female breast; Translations: [Malignant neoplasm of central portion of right female breast] Onset: 01-17-2023 Chronic Cancer of breast (20 sources) History of malignant neoplasm of breast; Translations: [Personal history of malignant neoplasm of breast] Onset: 03-25-2023 Resolved: 07-10-2020 08-21-2023 Episodic Cataract (20 sources) Bilateral cataracts; Translations: [Unspecified cataract] Chronic Chronic obstructive pulmonary disease and bronchiectasis (2 sources) Bronchitis; Translations: [Bronchitis, not specified as acute or chronic] 12-21-2023 Episodic Complication of device; implant or graft (1 source) Capsular breast contracture of breast implant; Translations: [Capsular contracture of breast implant, initial encounter] 03-28-2023 Episodic Complications of surgical procedures or medical care (14 sources) Postablative ovarian failure; Translations: [Postablative ovarian failure] Chronic Deficiency and other anemia (4 sources) Anemia 08-25-2023 Episodic Developmental disorders (1 source) Word finding difficulty ; Translations: [Word finding difficulty] Chronic Diseases of mouth; excluding dental (20 sources) Geographic tongue; Translations: [Glossitis] Episodic Disorders of lipid metabolism (2 sources) Hyperlipidemia, unspecified; Translations: [HYPERLIPIDEMIA UNSPECIFIED] Onset: 08-21-2022 Chronic E Codes: Fall (20 sources) Fall; Translations: [Unspecified fall] Episodic Fracture of lower limb (3 sources) Closed fracture of patella; Translations: [Closed fracture of patella] Episodic Gastroduodenal ulcer (except hemorrhage) (1 source) Peptic ulcer, site unspecified, unspecified as acute or chronic, without hemorrhage or perforation; Translations: [Peptic ulc, site unsp, unsp as ac or chr, w/o hemor or perf] Onset: 01-17-2023 Chronic Genitourinary symptoms and ill-defined conditions (20 sources) Delay when starting to pass urine; Translations: [Urinary hesitancy] Onset: 06-28-2022 Episodic Headache; including migraine (4 sources) Headache 08-25-2023 Episodic Hemorrhoids (20 sources) Prolapsed internal hemorrhoids; Translations: [Hemorrhoids] Episodic Menopausal disorders (20 sources) Postmenopausal bleeding; Translations: [Postmenopausal bleeding] Chronic Mood disorders (1 source) Major depressive disorder, single episode, unspecified; Translations: [Major depressive disorder, single episode, unspecified] Onset: 01-17-2023 Chronic Nonmalignant breast conditions (7 sources) Pain of breast; Translations: [Mastodynia] Onset: 02-04-2024 03-28-2023 Episodic Nonspecific chest pain (19 sources) Pain of intercostal space; Translations: [Other chest pain] Episodic Nutritional deficiencies (20 sources) Vitamin D deficiency; Translations: [Unspecified vitamin D deficiency] Chronic Nutritional deficiencies (2 sources) Iron deficiency; Translations: [Iron deficiency] Onset: 01-16-2024 Episodic Osteoarthritis (20 sources) Arthritis; Translations: [Arthropathy, unspecified, site unspecified] Onset: 01-17-2023 08-25-2023 Chronic Osteoporosis (18 sources) Postmenopausal osteoporosis; Translations: [Senile osteoporosis] Onset: 01-17-2023 Chronic Other aftercare (20 sources) Patient encounter status; Translations: [Long-term (current) use of other medications] Episodic Other aftercare (2 sources) 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 non-steroidal anti-inflammatories (NSAID); Translations: [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 non-steroidal anti-inflammatories (NSAID)] Onset: 02-04-2024 Episodic Other connective tissue disease (20 sources) Muscle weakness of limb; Translations: [Other musculoskeletal symptoms referable to limbs] Episodic Other connective tissue disease (20 sources) H/O: osteoarthritis; Translations: [Personal history of other musculoskeletal disorders] Episodic Other connective tissue disease (7 sources) Swelling of finger ; Translations: [Swelling of limb] Episodic Other diseases of bladder and urethra (14 sources) Prolapse of urethral mucosa; Translations: [Prolapsed urethral mucosa] Episodic Other diseases of bladder and urethra (6 sources) Urethral caruncle; Translations: [Urethral caruncle] Onset: 08-25-2023 Episodic Other ear and sense organ disorders (4 sources) Hearing loss 08-25-2023 Chronic Other female genital disorders (6 sources) Vaginal bleeding; Translations: [Other specified noninflammatory disorders of vagina] Chronic Other gastrointestinal disorders (20 sources) Constipation; Translations: [Constipation, unspecified] Episodic Other gastrointestinal disorders (20 sources) Alteration in bowel elimination; Translations: [Other symptoms involving digestive system] Episodic Other gastrointestinal disorders (2 sources) Altered bowel function; Translations: [Other symptoms involving digestive system] Episodic Other inflammatory condition of skin (20 sources) Prurigo simplex ; Translations: [Prurigo] Episodic Other injuries and conditions due to external causes (20 sources) Spider bite wound; Translations: [Toxic effect of venom] Episodic Other nervous system disorders (20 sources) Word finding difficulty ; Translations: [Mental and behavioral problems with communication [including speech]] Episodic Other nervous system disorders (19 sources) Numbness and tingling sensation of skin; Translations: [Disturbance of skin sensation] Episodic Other nervous system disorders (2 sources) Impairment of balance; Translations: [Other symptoms involving nervous and musculoskeletal systems] Episodic Other non-traumatic joint disorders (20 sources) Polyarthropathy; Translations: [Unspecified polyarthropathy or polyarthritis, site unspecified] Chronic Other non-traumatic joint disorders (20 sources) Hip pain; Translations: [Pain in joint, pelvic region and thigh] Episodic Other non-traumatic joint disorders (1 source) Knee pain; Translations: [Knee pain, bilateral] Episodic Other non-traumatic joint disorders (20 sources) Pain in right knee; Translations: [Knee pain, bilateral] Episodic Other non-traumatic joint disorders (4 sources) Pain in left knee; Translations: [PAIN IN LEFT KNEE] Onset: 11-28-2022 Episodic Other nutritional; endocrine; and metabolic disorders (1 source) Lipodystrophy; Translations: [Lipodystrophy, not elsewhere classified] Onset: 12-09-2014 12-09-2014 Chronic Other nutritional; endocrine; and metabolic disorders (20 sources) Weight loss; Translations: [Loss of weight] Episodic Other nutritional; endocrine; and metabolic disorders (14 sources) Body mass index 25-29 - overweight; Translations: [Overweight] Episodic Other screening for suspected conditions (not mental disorders or infectious disease) (20 sources) Breast neoplasm screening status; Translations: [Other screening mammogram] Episodic Other skin disorders (20 sources) Inflamed seborrheic keratosis; Translations: [Inflamed seborrheic keratosis] Episodic Other skin disorders (2 sources) Other skin changes; Translations: [Other skin changes] Onset: 02-04-2024 Episodic Other upper respiratory disease (20 sources) Chronic rhinitis; Translations: [Chronic rhinitis] Chronic Other upper respiratory disease (20 sources) Allergic rhinitis; Translations: [Allergic rhinitis, cause unspecified] Chronic Other upper respiratory disease (1 source) Other seasonal allergic rhinitis; Translations: [Other seasonal allergic rhinitis] Onset: 01-17-2023 Chronic Pneumonia (except that caused by tuberculosis or sexually transmitted disease) (20 sources) Pneumonia; Translations: [Pneumonia, organism unspecified] Episodic Residual codes; unclassified (20 sources) Sleep apnea; Translations: [Unspecified sleep apnea] Chronic Residual codes; unclassified (20 sources) Memory impairment; Translations: [Memory loss] Episodic Residual codes; unclassified (20 sources) Insomnia; Translations: [Insomnia, unspecified] Episodic Residual codes; unclassified (19 sources) Symptom of head and neck region; Translations: [Other general symptoms] Episodic Residual codes; unclassified (14 sources) History of hysterectomy for benign disease; Translations: [Acquired absence of both cervix and uterus] Episodic Residual codes; unclassified (2 sources) Estrogen receptor negative status [ER-]; Translations: [Estrogen receptor negative status (ER-)] Onset: 01-16-2024 Episodic Residual codes; unclassified (2 sources) Other specified postprocedural states; Translations: [Other specified postprocedural states] Onset: 02-04-2024 Episodic Screening and history of mental health and substance abuse codes (20 sources) H/O: depression; Translations: [H/O: anxiety state] Onset: 08-25-2023 Resolved: 07-17-2020 Episodic Comment on above: Depression; Spondylosis; intervertebral disc disorders; other back problems (13 sources) Cervical radiculopathy; Translations: [Disorder of lumbar disc] Chronic Spondylosis; intervertebral disc disorders; other back problems (20 sources) Radiculopathy, cervical region; Translations: [Neck pain] Onset: 05-07-2018 Episodic Thyroid disorders (1 source) Nontoxic single thyroid nodule; Translations: [NONTOXIC SINGLE THYROID NODULE] Onset: 10-22-2022 Chronic Unclassified (1 source) Unknown / UNK(Unknown) Onset: 10-18-2017 Unclassified (1 source) Pain in left knee Onset: 05-07-2018 Unclassified (3 sources) Trochanteric bursitis, left hip; Translations: [Trochanteric bursitis, left hip] Onset: 08-25-2018 Unclassified (1 source) Trochanteric bursitis, right hip Onset: 08-25-2018 Unclassified (1 source) Pain in right hip Onset: 08-25-2018 Unclassified (1 source) Pain in left hip Onset: 08-25-2018 Unclassified (1 source) Other intervertebral disc degeneration, lumbar region Onset: 05-07-2018 Unclassified (1 source) Pain in right knee Onset: 05-07-2018 Unclassified (1 source) Encounter for screening, unspecified Onset: 05-07-2018 Unclassified (1 source) Toxic effect of unsp spider venom, accidental, init Onset: 05-07-2018 Unclassified (3 sources) CONTACT W/AND (SUSP) EXPOS COVID-19; Translations: [CONTACT W/AND (SUSP) EXPOS COVID-19] Onset: 07-08-2022 Unclassified (1 source) COUGH, UNSPECIFIED; Translations: [COUGH, UNSPECIFIED] Onset: 07-08-2022 Urinary tract infections (5 sources) Urinary tract infectious disease; Translations: [Urinary tract infection, site not specified] Onset: 08-25-2023 Episodic Viral infection (20 sources) Other specified viral infection; Translations: [Disease caused by nCoV] Episodic Past or Other Problems Problem Classification Problem Date Documented Date Episodic/Chronic Deficiency and other anemia (1 source) Anemia, unspecified; Translations: [ANEMIA UNSPECIFIED] Onset: 08-21-2022 Episodic Diabetes mellitus without complication (1 source) Other abnormal glucose; Translations: [OTHER ABNORMAL GLUCOSE] Onset: 08-21-2022 Episodic External cause codes: Fall (1 source) Fall; Translations: [Fall] Fracture of neck of femur (hip) (20 sources) Fracture of greater trochanter; Translations: [Closed fracture of trochanteric section of neck of femur] Resolved: 07-10-2020 Episodic Malaise and fatigue (4 sources) Other fatigue; Translations: [OTHER FATIGUE] Onset: 08-17-2022 Episodic Other female genital disorders (8 sources) History of gynecological disorder; Translations: [Personal history of other genital system and obstetric disorders] Resolved: 01-07-2022 Episodic Other lower respiratory disease (1 source) Pleurodynia; Translations: [PLEURODYNIA] Onset: 08-21-2022 Episodic Other upper respiratory disease (1 source) Nasal congestion; Translations: [NASAL CONGESTION] Onset: 07-08-2022 Episodic Unclassified (1 source) M54.16 [id number] Onset: 10-18-2017 Unclassified (1 source) Patient encounter status; Translations: [Medication management] Unclassified (1 source) CONTACT W/AND (SUSP) EXPOS COVID-19; Translations: [CONTACT W/AND (SUSP) EXPOS COVID-19] Onset: 07-05-2022 NEGATED: Highlighted row has not occurred!Residual codes; unclassified (6 sources) Disease Episodic Results Test Name Value Interpretation Reference Range Facility Plastic Surgery Visit Report on 04-21-2024 Plastic Surgery Visit Report [facility] Plastic Reconstructive Surgery [address], [address] [place] [id number] OFFICE VISIT Date of Service: 04/21/24 MR#: [id number] Acct: [id number] Name: BRIGITTE HIGH Rep #: [id number] : 1950 Provider: Dr. Jadyn mccall MD Age/Sex: 73/F Location: [facility] Status: Signed Intake Vital Signs 03/31/24 10:14 04/21/24 11:00 Height 5 ft 5 in 5 ft 5 in Weight: 157 lb 5 oz 156 lb BMI 26.2 25.9 BP 128/80 H Blood Pressure Location Rt brachial Rt brachial Position Sitting Sitting Respiration 16 18 Pulse 62 67 Pulse Source Monitor Temp 99.2 F H 97.7 F L Temp Source Temporal Oral Pulse Oximetry (%) 99 97 Oxygen Delivery Method room air room air Intake Visit Reasons: 3 W FU POST OP Chief Complaint: right breast lift/left skin fold revision post op Is patient in pain?: No Allergies cat dander (cats) Allergy (Mild, Verified 04/21/24 10:59) Other Environmental Allergies: Uncoded (dust) Allergy (Mild, Verified 04/21/24 10:59) Itching Medications ???Medication ???Instructions ???Recorded ???Confirmed ???Type coffee extract 100 mg-phosphatidyl 1 cap PO DAILY 01/20/24 04/21/24 History serine 100 mg capsule (Neuriva Original) ibuprofen 600 mg tablet 600 mg PO Q6H PRN pain 01/20/24 04/21/24 History cigncljyyfdt-Kr-eycn-mine rals 1 tab PO DAILY 01/20/24 04/21/24 History vitamin C 45 mg-zinc citrate 3.75 1 tab PO DAILY 01/20/24 04/21/24 History mg-elderberry 50 mg chewable tablet ([employer]) calcium carbonate 600 mg-vitamin 1 tab PO DAILY 03/02/24 04/21/24 History D3 5 mcg (200 unit) tablet fluticasone propionate 50 1 spray intranasal BID ALLERGY 03/02/24 04/21/24 History mcg/actuation nasal spray,suspension silver sulfadiazine 1 % topical 1 applic topical DAILY #20 grams 04/21/24 04/21/24 Rx cream (Silvadene) Have you fallen in the past year?: No Nurse's Note: post op R breast lift, L breast revision Subjective Details: Cata comes in for recheck of her right breast reduction and left breast revision. She had had some difficulty with some drainage noted at the base of her right breast. She was put on an oral antibiotic. Objective Details: There is a small opening at the base of the right breast. There is no evidence of infection or cellulitis. Fibrinous exudate was debrided. A thin layer of Silvadene was applied along with dry gauze. I have asked her to do the same daily. On the left breast revision, I have asked her to apply Aquaphor to the site daily. She is to follow-up in 2 weeks. We are delaying her return to work because of the opening and drainage. Coding Level of Care Code Global Post Op Diagnoses Delayed wound healing T14.8XXD Status post breast reconstruction Z98.890 [facility] Medical History Wears hearing aid Wears dentures Alcohol use Arthritis Low iron Anemia Back pain Injury of head and neck Syncope Constipation Gastric reflux Former smoker Shortness of breath on exertion Leg cramps History of pain when walking History of stress test History of breast cancer History of arthritis Surgical History Hx of neck surgery Hx of left breast implant History of reconstruction of left breast History of bladder surgery History of bilateral cataract extraction History of tonsillectomy and adenoidectomy H/O uvulectomy History of lumbar discectomy History of carpal tunnel release History of bilateral salpingo-oophorectomy History of total abdominal hysterectomy Family History Mother Arthritis Blood clot in leg Heart disease Father Blood clot in leg CVA (cerebral vascular accident) Sister Colon cancer Social History Smoking Status: Former smoker how long ago did patient quit smoking: quit 2015 alcohol intake: current substance use type: does not use additional social history: pt denies vaping, denies marijuana use, denies edibles, denies aspirin use Uses 600 mg ibuprofen Assessment and Plan (No Qualifiers) Assessment and Plan (1) Delayed wound healing: Status: Acute (2) Status post breast reconstruction: Status: Acute Plan Details Additional Comments: Follow-up in 2 weeks 04/21/24 198 Date Jadyn Houston Signature: Date (if applicable) CC: [facility] Plastic Surgery Visit Report on 03-31-2024 Plastic Surgery Visit Report [facility] Plastic Reconstructive Surgery [address], [address] [place] [address] OFFICE VISIT Date of Service: 03/31/24 MR#: [id number] Acct: [id number] Name: BRIGITTE HIGH Rep #: [id number] : 1950 Provider: Dr. Jadyn mccall MD Age/Sex: 73/F Location: [facility] Status: Signed Intake Vital Signs 03/17/24 09:28 03/31/24 10:14 Height 5 ft 5 in 5 ft 5 in Weight: 154 lb 6 oz 157 lb 5 oz BMI 25.7 26.2 BP 122/85 H Blood Pressure Location Rt brachial Rt brachial Position Sitting Sitting Respiration 16 16 Pulse 65 62 Temp 98.3 F 99.2 F H Temp Source Temporal Temporal Pulse Oximetry (%) 93 99 Oxygen Delivery Method room air room air Intake Visit Reasons: POST OP Chief Complaint: right breast lift/left skin fold revision post op Is patient in pain?: No Allergies cat dander (cats) Allergy (Mild, Verified 03/31/24 10:16) Other Environmental Allergies: Uncoded (dust) Allergy (Mild, Verified 03/31/24 10:16) Itching Medications ???Medication ???Instructions ???Recorded ???Confirmed ???Type coffee extract 100 mg-phosphatidyl 1 cap PO DAILY 01/20/24 03/31/24 History serine 100 mg capsule (Neuriva Original) ibuprofen 600 mg tablet 600 mg PO Q6H PRN pain 01/20/24 03/31/24 History letpbncgctvx-Tk-njzr-mine rals 1 tab PO DAILY 01/20/24 03/31/24 History vitamin C 45 mg-zinc citrate 3.75 1 tab PO DAILY 01/20/24 03/31/24 History mg-elderberry 50 mg chewable tablet ([employer]) calcium carbonate 600 mg-vitamin 1 tab PO DAILY 03/02/24 03/31/24 History D3 5 mcg (200 unit) tablet fluticasone propionate 50 1 spray intranasal BID ALLERGY 03/02/24 03/31/24 History mcg/actuation nasal spray,suspension Have you fallen in the past year?: No Nurse's Note: pt here for follow up no issues Subjective Details: Cata is 4 weeks since her right breast left and left breast revision. She denies any problems. She has started sleeping in her bed flat. Objective Details: Incisions are well-approximated. There is no evidence of infection. There is 1 small crust at the base of the right breast at the T portion. The remaining suture on the right side was removed. I have asked her to apply Aquaphor to her incisions. She is to continue to restrict her activity. I will see her back in 3 weeks for recheck. Coding Level of Care Code Global Post Op Diagnoses Status post breast reconstruction Z98.890 History of reduction surgery of right breast Z98.890 [facility] Medical History Wears hearing aid Wears dentures Alcohol use Arthritis Low iron Anemia Back pain Injury of head and neck Syncope Constipation Gastric reflux Former smoker Shortness of breath on exertion Leg cramps History of pain when walking History of stress test History of breast cancer History of arthritis Surgical History Hx of neck surgery Hx of left breast implant History of reconstruction of left breast History of bladder surgery History of bilateral cataract extraction History of tonsillectomy and adenoidectomy H/O uvulectomy History of lumbar discectomy History of carpal tunnel release History of bilateral salpingo-oophorectomy History of total abdominal hysterectomy Family History Mother Arthritis Blood clot in leg Heart disease Father Blood clot in leg CVA (cerebral vascular accident) Sister Colon cancer Social History Smoking Status: Former smoker how long ago did patient quit smoking: quit 2015 alcohol intake: current substance use type: does not use additional social history: pt denies vaping, denies marijuana use, denies edibles, denies aspirin use Uses 600 mg ibuprofen Assessment and Plan (No Qualifiers) Assessment and Plan (1) Status post breast reconstruction: Status: Acute (2) History of reduction surgery of right breast: Status: Acute Plan Details Additional Comments: She has to follow-up in 3 weeks. 03/31/24 1646 Date Jadyn Ocasioignbo Signature: Date (if applicable) CC: [facility] Reminderson 03-26-2024 Reminders Reminders From: Daniella Green To: EU - Recalls Recinos; Sent: 10/20/2023 15:17:03 EDT Show up: 01/26/2024 15:16:00 EDT Subject: Cysto Due Date/Time: 02/16/2024 15:17:00 EDT Reminder/Recall Patient needs 6 month cysto in 2023. DX; hx urethral lesion l/m on vm.LG Patient called back, sched for 05/03/24 at [facility] Plastic Surgery Visit Report on 03-17-2024 Plastic Surgery Visit Report [facility] Plastic Reconstructive Surgery [address], [address] [place], [place] [address] OFFICE VISIT Date of Service: 03/17/24 MR#: [id number] Acct: [id number] Name: BRIGITTE HIGH Rep #: [id number] : 1950 Provider: Dr. Jadyn mccall MD Age/Sex: 73/F Location: [facility] Status: Signed Intake Vital Signs 01/20/24 10:05 03/10/24 09:39 03/17/24 09:28 Height 5 ft 5 in 5 ft 5 in 5 ft 5 in Weight: 154 lb 6 oz BMI 25.7 BP 122/85 H Blood Pressure Location Rt brachial Position Sitting Respiration 16 Pulse 65 Temp 98.3 F Temp Source Temporal Pulse Oximetry (%) 93 Oxygen Delivery Method room air Intake Visit Reasons: post #2 right lift, left excision skin Chief Complaint: right breast lift/left skin fold revision post op Accompanied by: Daughter Is patient in pain?: No Allergies cat dander (cats) Allergy (Mild, Verified 03/17/24 09:30) Other Environmental Allergies: Uncoded (dust) Allergy (Mild, Verified 03/17/24 09:30) Itching Medications ???Medication ???Instructions ???Recorded ???Confirmed ???Type coffee extract 100 mg-phosphatidyl 1 cap PO DAILY 01/20/24 03/17/24 History serine 100 mg capsule (Neuriva Original) ibuprofen 600 mg tablet 600 mg PO Q6H PRN pain 01/20/24 03/17/24 History zolqrzxfbmcq-Yn-dsye-mine rals 1 tab PO DAILY 01/20/24 03/17/24 History vitamin C 45 mg-zinc citrate 3.75 1 tab PO DAILY 01/20/24 03/17/24 History mg-elderberry 50 mg chewable tablet ([employer]) calcium carbonate 600 mg-vitamin 1 tab PO DAILY 03/02/24 03/17/24 History D3 5 mcg (200 unit) tablet fluticasone propionate 50 1 spray intranasal BID ALLERGY 03/02/24 03/17/24 History mcg/actuation nasal spray,suspension Have you fallen in the past year?: No Nurse's Note: pt here for post op no issues, question about restrictions Subjective Details: Cata comes in for recheck of the right breast lift and left breast revision. She denies any problems. Objective Details: The incisions are well-approximated. There is no evidence of infection. I redressed the incisions with antibiotic ointment and dry gauze. She is instructed to do the same. She can begin to shower and drive. She is cautioned about other excessive activity. Coding Level of Care Code Global Post Op Diagnoses Status post breast reconstruction Z98.890 [facility] Medical History Wears hearing aid Wears dentures Alcohol use Arthritis Low iron Anemia Back pain Injury of head and neck Syncope Constipation Gastric reflux Former smoker Shortness of breath on exertion Leg cramps History of pain when walking History of stress test History of breast cancer History of arthritis Surgical History Hx of neck surgery Hx of left breast implant History of reconstruction of left breast History of bladder surgery History of bilateral cataract extraction History of tonsillectomy and adenoidectomy H/O uvulectomy History of lumbar discectomy History of carpal tunnel release History of bilateral salpingo-oophorectomy History of total abdominal hysterectomy Family History Mother Arthritis Blood clot in leg Heart disease Father Blood clot in leg CVA (cerebral vascular accident) Sister Colon cancer Social History Smoking Status: Former smoker how long ago did patient quit smoking: quit 2015 alcohol intake: current substance use type: does not use additional social history: pt denies vaping, denies marijuana use, denies edibles, denies aspirin use Uses 600 mg ibuprofen Assessment and Plan (No Qualifiers) Assessment and Plan (1) Status post breast reconstruction: Status: Acute Plan Details Additional Comments: I will see her back in 2 weeks for recheck and she is encouraged to call in the interim with any questions or problems 03/17/24 0448 Date Jadyn Chavez MD Cosigner Signature: Date (if applicable) CC: [facility] Plastic Surgery Visit Report on 03-10-2024 Plastic Surgery Visit Report [facility] Plastic Reconstructive Surgery [address], [address] [place] [address] OFFICE VISIT Date of Service: 03/10/24 MR#: [id number] Acct: [id number] Name: BRIGITTE HIGH Rep #: [id number] : 1950 Provider: Dr. Jadyn mccall MD Age/Sex: 73/F Location: [facility] Status: Signed Intake Vital Signs 01/20/24 10:05 03/04/24 06:31 03/10/24 09:39 Height 5 ft 5 in 5 ft 5 in 5 ft 5 in Weight: 157 lb 2 oz BMI 26.1 BP 138/84 H Blood Pressure Location Rt brachial Position Sitting Respiration 16 Pulse 74 Temp 97.4 F L Temp Source Oral Pulse Oximetry (%) 95 Oxygen Delivery Method room air Intake Visit Reasons: post #1 right lift/left excision skin Chief Complaint: right breast lift/left skin fold revision post op Accompanied by: Daughter Is patient in pain?: Yes (08/06 feeling alittle swollen) Allergies cat dander (cats) Allergy (Mild, Verified 03/10/24 09:43) Other Environmental Allergies: Uncoded (dust) Allergy (Mild, Verified 03/10/24 09:43) Itching Medications ???Medication ???Instructions ???Recorded ???Confirmed ???Type coffee extract 100 mg-phosphatidyl 1 cap PO DAILY 01/20/24 03/10/24 History serine 100 mg capsule (Neuriva Original) ibuprofen 600 mg tablet 600 mg PO Q6H PRN pain 01/20/24 03/10/24 History yroqngoprjdz-Zv-dxvc-mine rals 1 tab PO DAILY 01/20/24 03/10/24 History vitamin C 45 mg-zinc citrate 3.75 1 tab PO DAILY 01/20/24 03/10/24 History mg-elderberry 50 mg chewable tablet ([employer]) calcium carbonate 600 mg-vitamin 1 tab PO DAILY 03/02/24 03/10/24 History D3 5 mcg (200 unit) tablet fluticasone propionate 50 1 spray intranasal BID ALLERGY 03/02/24 03/10/24 History mcg/actuation nasal spray,suspension Have you fallen in the past year?: No Nurse's Note: pt here with daughter post op breast reconstruction-little swollen , question on lifting restrictions, has some issues with pain in right hand. Subjective Details: Brigitte comes in for recheck of the right breast left and left reconstruction revision. She denies any problems other than tightness especially noted medially. Objective Details: The incisions are well-approximated. There is no evidence of infection. Periareolar sutures are removed on the right side. The incision on the left lateral chest is well-approximated. Xeroform is placed on both sides. An ABD is placed over the left lateral incision to pad this from her bra. Dry gauze is placed on the right breast. She is placed vascular surgery bra. Limitations were reviewed with her including maintaining an elevated position and avoiding overusing her arms. Coding Level of Care Code Global Post Op Diagnoses Breast asymmetry between [place] breast and reconstructed breast N65.1 Status post left breast reconstruction Z98.890 History of reduction surgery of right breast Z98.890 [facility] Medical History Wears hearing aid Wears dentures Alcohol use Arthritis Low iron Anemia Back pain Injury of head and neck Syncope Constipation Gastric reflux Former smoker Shortness of breath on exertion Leg cramps History of pain when walking History of stress test History of breast cancer History of arthritis Surgical History Hx of neck surgery Hx of left breast implant History of reconstruction of left breast History of bladder surgery History of bilateral cataract extraction History of tonsillectomy and adenoidectomy H/O uvulectomy History of lumbar discectomy History of carpal tunnel release History of bilateral salpingo-oophorectomy History of total abdominal hysterectomy Family History Mother Arthritis Blood clot in leg Heart disease Father Blood clot in leg CVA (cerebral vascular accident) Sister Colon cancer Social History Smoking Status: Former smoker how long ago did patient quit smoking: quit 2015 alcohol intake: current substance use type: does not use additional social history: pt denies vaping, denies marijuana use, denies edibles, denies aspirin use Uses 600 mg ibuprofen Assessment and Plan (No Qualifiers) Assessment and Plan (1) Breast asymmetry between [place] breast and reconstructed breast: Status: Acute (2) Status post left breast reconstruction: Status: Acute (3) History of reduction surgery of right breast: Status: Acute Plan Details Additional Comments: She is to follow-up in 1 week for recheck. She is encouraged to call in the interim with any problems. Her limitations were reviewed with her and her daughter 02/25 (more content not included)... [facility] Discharge Instructionon Discharge Instruction [facility] Medical Records Department [address] [place] [address] Instructions for Home/Discharge Instructions 03/04/24 1123 MR#: [id number] Acct: [id number] Name: BRIGITTE HIGH Rep #: [id number] : 1950 73 From: Jadyn Chavez MD PCP: DOUG Brown Status:REG [facility] Discharge Instructions Dressing / Incision Additional Dressing/Incision Instructions:: Follow instructions given in the office. Maintain a recliner position. Leave the dressings in place until seen in the office. Follow Up Care Please Follow Up With: Jadyn Chavez MD Test Results: Test results from this visit will be discussed in further detail at your follow-up appointment, if applicable. Discharge Plan Admission Attending Provider: Jadyn Chavez Primary Care Provider: Kristyn Dougherty Instructions Print Language: Luxembourgish Discharge Orders/Prescriptions Prescriptions: No Action ibuprofen 600 mg tablet 600 mg PO Q6H PRN (Reason: pain) jodlzycgnpht-Pq-pjuy-mine rals Tablet 1 tab PO DAILY Neuriva Original 100-100 mg capsule 1 cap PO DAILY Elderberry [employer] 45-3.75-50 mg tablet,chewable 1 tab PO DAILY calcium carbonate-vitamin D3 600 mg-5 mcg (200 unit) tablet 1 tab PO DAILY fluticasone propionate 50 mcg/actuation spray,suspension 1 spray intranasal BID Rx Instructions: administer into each nostril cephalexin 500 mg capsule 500 mg PO BID Referrals / Follow Up: Kristyn Dougherty NP-C [Primary Care Provider] - Disposition Disposition (needs filled in before D/C Order can be placed): Home, Self Care 03/04/241123 Jadyn Chavez MD CC: [employer]-C Kristyn Dougherty Signed [facility] Discharge Instruction [facility] Medical Records Department [address] [place] [address] Instructions for Home/Discharge Instructions 03/04/24 1121 MR#: [id number] Acct: [id number] Name: BRIGITTE HIGH Rep #: [id number] : 1950 73 From: Jadyn Chavez MD PCP: DOUG Brown Status:DEP [place] Discharge Instructions Dressing / Incision Additional Dressing/Incision Instructions:: Follow instructions given in the office. Maintain a recliner position. Leave the dressings in place until seen in the office. Follow Up Care Please Follow Up With: Jadyn Chavez MD When: In 1 week Test Results: Test results from this visit will be discussed in further detail at your follow-up appointment, if applicable. Discharge Plan Admission Attending Provider: Jadyn Chavez Primary Care Provider: Kristyn Dougherty Instructions Print Language: Luxembourgish Discharge Orders/Prescriptions Prescriptions: No Action ibuprofen 600 mg tablet 600 mg PO Q6H PRN (Reason: pain) irkjdgdambzn-Iv-haox-mine rals Tablet 1 tab PO DAILY Neuriva Original 100-100 mg capsule 1 cap PO DAILY Elder[employer] 45-3.75-50 mg tablet,chewable 1 tab PO DAILY calcium carbonate-vitamin D3 600 mg-5 mcg (200 unit) tablet 1 tab PO DAILY fluticasone propionate 50 mcg/actuation spray,suspension 1 spray intranasal BID Rx Instructions: administer into each nostril cephalexin 500 mg capsule 500 mg PO BID Referrals / Follow Up: Kristyn Dougherty NP-C [Primary Care Provider] - Disposition Disposition (needs filled in before D/C Order can be placed): Home, Self Care 03/04/24 1333 Jadyn Chavez MD CC: [employer]-C Kristyn Dougherty Signed [facility] MR/POSTOP.NADIYA 03-04-2024 MR/POSTOP.[facility] Medical Records Department [address] [place] [address] Anesthesia Postop Eval I 03/04/24 1122 MR#: [id number] Acct: [id number] Name: BRIGITTE HIGH Rep #: [id number] : 1950 73 From: Hyun Hernandez PCP: DOUG Brown Status:REG [facility] Y Race: C Location: [place] [address] Anesthesia: Postop Eval I Current Vital Signs Temperature: 97.3 F Pulse Rate: 79 Blood Pressure: 127/67 Respiratory Rate: 16 Pulse Ox: 97 Oxygen Delivery Method: Room Air Assessment Airway patent: Yes Spontaneous unlabored respirations: Yes Mental status: Awake and Calm nausea: No Vomiting: No Anesthesia Complication: No Fluid Hydration Crystalloid volume administer (ml): 1,800 Total IV fluid infused: 1,800 Progress Note Anesthesia document: Postop Eval 1 completed: Yes 03/04/24 1233 Date Hyun Hernandez Cosigner Signature: CC: Signed [facility] MR/[id number] 03-04-2024 [facility] Medical Records Department [address] [place] [id number] Anesthesia Postop Eval II 03/04/24 1146 MR#: [id number] Acct: [id number] Name: BRIGITTE HIGH Rep #: [id number] : 1950 73 From: Julito Domingo MD PCP: Kristyn Dougherty NP-C Status:REG [facility] Y Race: C Location: [place] [address] Anesthesia Postop Eval I Sum Anesthesia Postop Eval I Summary Anesthesia Postop Eval I Summary: Anesthesia Postop Eval I: Assessment Summary Airway patent Spontaneous unlabored respirations Mental status nausea Vomiting Anesthesia Postop Eval I: Fluid Summary Crystalloid volume administer (ml) Colloids volume administered ( ml) Blood Product volume administered (ml) Total IV fluid infused Anesthesia Postop Eval I: Summary Notes Anesthesia Complication Anesthesia Complication Comment: Post-operative progress note Anesthesia: Postop Eval II Evaluation Mental status: Awake Pain Level: 0 nausea: No Vomiting: No 03/04/24 1146 Date Julito Domingo MD Cosigner Signature: CC: Signed [facility] Operative Reporton 4 Operative Report [facility] Medical Records Department [address] [place] [address] Operative Report 03/04/24 1124 MR#: [id number] Acct: [id number] Name: BRIGITTE HIGH Rep #: [id number] : 1950 73 From: Jadyn Chavez MD PCP: Kristyn Dougherty NP-C Status:[facility] Location: [facility] Report of Operation Date of Procedure: 03/04/24 Pre-Operative Diagnosis: Asymmetry between the right [place] breast and the left reconstructed breast; Right breast ptosis Painful scar left reconstructed breast Personal history of breast cancer Post-Operative Diagnosis: Same Surgery/Procedure Performed:: Right breast mastopexy Excision scar and skin fold left lateral breast (12 cm) with intermediate closure Surgeon: Jadyn Chavez Type of Anesthesia: General Drains: None Estimated Blood Loss (mL): Minimal Description of Procedure: The patient presents today status post left mastectomy and reconstruction following breast cancer. She has a fold of the left lateral breast which is painful which extends laterally from the previous flap area. Additionally, she has right breast ptosis. She presents for right breast mastopexy and revision left breast reconstruction with excision of a skin fold and intermediate closure. The patient is marked in the preop holding area prior to surgery. Informed consent was obtained. Patient is brought to the operating room and placed under general anesthesia in the supine position. Care was taken to pad all pressure points and inserted a Martinez catheter as well as sequential compression stockings. The chest and breasts are prepped and draped in the usual sterile fashion. We initially began with incising the premarked incisions of the right breast. Following this, the pedicle and inferior aspect of the breast are de-epithelialized. The upper flap is then from the breast maintaining a skin thickness of at least 2 cm as dissection continued cephalad. Following this, the wound is irrigated with antibiotic solution and checked for hemostasis which is controlled with cautery. The wound is then infolded intact together with silk and skin clips. With a satisfactory size and shape noted, the incisions are initially tacked together with a Vicryl suture. Following this, a STRATAFIX suture is used to approximate skin edges in 3 layers. Approximately 4 cm above the inframammary crease, the nipple areola is brought out through an opening and tacked in place with interrupted nylon suture. Further approximation of all the skin edges is performed with a running subcuticular strata fix suture. Xeroform and fluff gauze were placed on the breast. The patient is then repositioned into a right lateral decubitus position with care to apply axillary rolls, and padding. The left lateral breast area is prepped and draped in the usual sterile fashion. We I initially began with injecting the incision line with 1% Xylocaine with epinephrine. The skin within the premarked area is then removed leaving the underlying tissue which would include the pedicle intact. The skin is taken off in a deep dermal layer. The incision is then tacked together with skin clips. This is further reinforced with some pmpfwv-rf-xavhu Vicryl sutures. The skin edges were then approximated with a layered closure of strata fix with the epidermal layer approximated in a subcuticular fashion. Quarter percent plain Marcaine is injected along all the incisions. A silver padded dressing is applied. She is placed back in a supine position and placed in a surgery bra. She tolerated the procedure well was taken to the recovery area in awake and stable condition. Needle and sponge counts are correct. Complications None Admit VTE Documentation VTE Mechan Device Prophylaxis: SCD's 03/04/24 1333 Cosigner Signature (if applicable): CC: DOUG Dougherty; Dr. Jadyn Chavez MD Signed [facility] Surgery Specimen Level Franky 03-04-2024 Surgery Specimen Level IV Patient Age/Sex Location Account Attending Physician BRIGITTE HIGH 73/F [facility] [id number] Dr. Jadyn Chavez MD Specimen: [id number] Received: 03/04/24-130 Status: MEHREEN Tavarez Num: [id number] Spec Type: Lesion Subm Dr: Dr. Jadyn Chavez MD HEADER OPERATION: Right breast lift and revision left breast reconstruction PRE-OP DIAGNOSIS: Breast asymmetry between [place] breast and reconstructed breast, painful periwound skin, ptosis of right breast, status post left breast reconstruction, history of breast cancer in adulthood TISSUE SUBMITTED: Right breast tissue and skin MICROSCOPIC DIAGNOSIS Right breast tissue and skin, revision left breast reconstruction: Skin with underlying tissue and scant fragments of benign breast tissue, no pathologic diagnosis. GONZALEZ/ 03/05/2024 MICROSCOPIC DESCRIPTION Slides are reviewed. GROSS DESCRIPTION Received in fixative is one container labeled with the patient's name and designated Right breast tissue and skin. The specimen consists of a piece of skin with underlying tissue measuring 5.0 x 1.5cm and up to 1.5cm in thickness. Also present in the container are four variable sized pieces of sloan-white skin measuring in aggregate 7.5 x 4.0 x 0.2cm. No skin lesion is identified. Sections do not reveal any mass lesions. Baling Press Operator sections are submitted in two cassettes. Cecily 03/04/2024 TC:4 CPT:44914 Patient Age/Sex Location Account Attending Physician BRIGITTE HIGH 73/F [facility] [id number] Dr. Jadyn Chavez MD Signed (signature on file) Dr. Cy Sandhu MD 03/05/24 1101 [facility] Comment on above: Performed By: #### P SUIV #### [facility] [address] [place], [address] Basic Metabolic Profile (BMP )on 02-18-2024 BUN/CRE 32.4 RATIO High 10-20 [facility] Comment on above: Order Comment: pre s urgery testing Performed By: #### L 300.4310, L500.2500, L300.3900, L100.0500 ####[facility] [address] [place], [address] CA,Total 9.3 mg/dL Normal 8.5-10.1 [facility] Comment on above: Order Comment: pre s urgery testing Performed By: #### L 300.4310, L500.2500, L300.3900, L100.0500 ####[facility] [address] [place], [address] Chloride [Moles/Vol] 109 mmol/L High 98-107 [facility] Comment on above: Order Comment: pre s urgery testing Performed By: #### L 300.4310, L500.2500, L300.3900, L100.0500 ####[facility] [address] [place], [address] CO2 [Moles/Vol] 23.0 mmol/L Normal 21.0-32.0 [facility] Comment on above: Order Comment: pre s urgery testing Performed By: #### L 300.4310, L500.2500, L300.3900, L100.0500 ####[facility] [address] [place], [address] Creatinine [Mass/Vol] 0.68 mg/dL Normal 0.55-1.02 [facility] Comment on above: Order Comment: pre s urgery testing Result Comment: The validity of the calculated GFR GFRAA in patients over 70 years has not been determined. Clinical correlation is essential. Performed By: #### L 300.4310, L500.2500, L300.3900, L100.0500 ####[facility] [address] [place], [address] EST GFR - AA 109 mL/min Normal >60 [facility] Comment on above: Order Comment: pre s urgery testing Result Comment: Afri can Faroese GFR Calc Performed By: #### L 300.4310, L500.2500, L300.3900, L100.0500 ####[facility] [address] [place], [address] GAP 6 Normal 5-15 [facility] Comment on above: Order Comment: pre s urgery testing Performed By: #### L 300.4310, L500.2500, L300.3900, L100.0500 ####[facility] [address] [place], [address] GFR/1.73 sq M.predicted among non-blacks MDRD (S/P/Bld) [Vol rate/Area] 90 mL/min/{1.73_m2} Normal >60 [facility] Comment on above: Order Comment: pre s urgery testing Result Comment: Non- GFR Calc Performed By: #### L 300.4310, L500.2500, L300.3900, L100.0500 ####[facility] [address] [place], [address] Glucose [Mass/Vol] 104 mg/dL Normal 74-106 [facility] Comment on above: Order Comment: pre s urgery testing Result Comment: Fast ing Glucose result from 100 to 125 mg/dL suggests IMPAIRED HOMEOSTASIS per A.D.A. criteria. Performed By: #### L 300.4310, L500.2500, L300.3900, L100.0500 ####[facility] [address] [place], [address] Potassium [Moles/Vol] 4.2 mmol/L Normal 3.5-5.1 [facility] Comment on above: Order Comment: pre s urgery testing Performed By: #### L 300.4310, L500.2500, L300.3900, L100.0500 ####[facility] [address] [place], [address] Sodium [Moles/Vol] 138 mmol/L Normal 136-145 [facility] Comment on above: Order Comment: pre s urgery testing Performed By: #### L 300.4310, L500.2500, L300.3900, L100.0500 ####[facility] [address] [place], [address] Urea nitrogen [Mass/Vol] 22 mg/dL High 7-18 [facility] Comment on above: Order Comment: pre s urgery testing Performed By: #### L 300.4310, L500.2500, L300.3900, L100.0500 ####[facility] [address] [place], [address] CBC-Complete Blood Cnt No Di ffon 02-18-2024 Erythrocyte distribution width (RBC) [Ratio] 13.8 % Normal 11.6-14.6 [facility] Comment on above: Order Comment: Comme nts: pre surgery testing Performed By: #### L 300.4310, L500.2500, L300.3900, L100.0500 ####[facility] [address] [place], [address] Hematocrit (Bld) [Volume fraction] 41.3 % Normal 37-47 [facility] Comment on above: Order Comment: Comme nts: pre surgery testing Performed By: #### L 300.4310, L500.2500, L300.3900, L100.0500 ####[facility] [address] [place], [address] Hemoglobin (Bld) [Mass/Vol] 13.4 g/dL Normal 12.0-15.0 [facility] Comment on above: Order Comment: Comme nts: pre surgery testing Performed By: #### L 300.4310, L500.2500, L300.3900, L100.0500 ####[facility] [address] [place], [address] MCH (RBC) [Entitic mass] 30.4 pg Normal 27.0-32.0 [facility] Comment on above: Order Comment: Ester nts: pre surgery testing Performed By: #### L 300.4310, L500.2500, L300.3900, L100.0500 ####[facility] [address] [place], [address] MCHC (RBC) [Mass/Vol] 32.4 g/dL Normal 32-36 [facility] Comment on above: Order Comment: Ester nts: pre surgery testing Performed By: #### L 300.4310, L500.2500, L300.3900, L100.0500 ####[facility] [address] [place], [address] MCV (RBC) [Entitic vol] 93.7 fL Normal 81-99 [facility] Comment on above: Order Comment: Ester nts: pre surgery testing Performed By: #### L 300.4310, L500.2500, L300.3900, L100.0500 ####[facility] [address] [place], [address] Platelet mean volume (Bld) [Entitic vol] 9.4 fL Normal 6.2-12.0 [facility] Comment on above: Order Comment: Ester nts: pre surgery testing Performed By: #### L 300.4310, L500.2500, L300.3900, L100.0500 ####[facility] [address] [place], [address] Platelets (Bld) [#/Vol] 268 10*3/uL Normal 150-450 [facility] Comment on above: Order Comment: Ester nts: pre surgery testing Performed By: #### L 300.4310, L500.2500, L300.3900, L100.0500 ####[facility] [address] [place], [address] RBC (Bld) [#/Vol] 4.41 10*6/uL Normal 4.2-5.4 [facility] Comment on above: Order Comment: Comme nts: pre surgery testing Performed By: #### L 300.4310, L500.2500, L300.3900, L100.0500 ####[facility] [address] [place], [address] RDW SD 47.8 fl High 35.1-43.9 [facility] Comment on above: Order Comment: Comme nts: pre surgery testing Performed By: #### L 300.4310, L500.2500, L300.3900, L100.0500 ####[facility] [address] [place], [address] WBC (Bld) [#/Vol] 6.6 10*3/uL Normal 4.4-11.0 [facility] Comment on above: Order Comment: Comme nts: pre surgery testing Performed By: #### L 300.4310, L500.2500, L300.3900, L100.0500 ####[facility] [address] [place], [address] Partial Thromboplast Timeon 02-18-2024 aPTT Coag (Bld) [Time] 27.0 s Normal 24.1-36.2 [facility] Comment on above: Order Comment: Comme nts: pre surgery testing Performed By: #### L 300.4310, L500.2500, L300.3900, L100.0500 ####[facility] [address] [place], [address] Plastic Surgery Visit Report on 02-18-2024 Plastic Surgery Visit Report [facility] [address], [address] [place] [address] OFFICE VISIT Date of Service: 02/18/24 MR#: [id number] Acct: [id number] Name: BRIGITTE HIGH Rep #: [id number] : 1950 Provider: Dr. Jadyn mccall MD Age/Sex: 73/F Location: [facility] Status: Signed Intake Vital Signs 01/20/24 10:05 02/04/24 10:02 02/18/24 09:33 Height 5 ft 5 in 5 ft 5 in 5 ft 5 in Weight: 160 lb 165 lb BMI 26.6 27.4 BP 122/77 H 143/90 H Blood Pressure Location Rt brachial Rt brachial Position Sitting Sitting Respiration 16 Pulse 65 66 Temp 99.4 F H 97.4 F L Temp Source Temporal Oral Pulse Oximetry (%) 97 95 Oxygen Delivery Method room air room air Intake Visit Reasons: pre #2 right breast lift, left revision skin fold Chief Complaint: pre op #2 right breast lift/left skin fold revision Is patient in pain?: No Allergies cat dander (cats) Allergy (Mild, Verified 02/18/24 09:34) Other Environmental Allergies: Uncoded (dust) Allergy (Mild, Verified 02/18/24 09:34) Itching Medications ???Medication ???Instructions ???Recorded ???Confirmed ???Type cholecalciferol (vitamin D3) 125 125 mcg PO DAILY 01/20/24 02/18/24 History mcg (5,000 unit) capsule coffee extract 100 mg-phosphatidyl cap PO 01/20/24 02/18/24 History serine 100 mg capsule (Neuriva Original) ibuprofen 600 mg tablet 600 mg PO Q6H PRN 01/20/24 02/18/24 History tducyaozmfzu-Be-ljqd-mine rals tab PO 01/20/24 02/18/24 History vitamin C 45 mg-zinc citrate 3.75 tab PO 01/20/24 02/18/24 History mg-elderberry 50 mg chewable tablet (Guided [employer]) coffee extract 100 mg-phosphatidyl cap PO 02/04/24 02/18/24 History serine 100 mg capsule (Neuriva Original) zovksdiwpf-VW-ctjtpnhtnbr en 6.25 ml PO 02/04/24 02/18/24 History mg-15 mg-325 mg/15 mL oral liquid (Vicks Nyquil Nighttime Relief) cephalexin 500 mg capsule 500 mg PO BID #14 caps 02/18/24 02/18/24 Rx oxycodone-acetaminophen 5 mg-325 1 tab PO TID PRN pain 3 days #8 02/18/24 02/18/24 Rx mg tablet (Percocet) tab-caps Have you fallen in the past year?: No Nurse's Note: pt here with daughter pre op #2, has a few questions PFSH Medical History (Updated 01/20/24 @ 10:[address] Jadyn Chavez MD) History of breast cancer History of visual impairment History of hearing problem History of back problems History of arthritis History of anemia History of seasonal allergies Surgical History (Updated 01/20/24 @ 10:[address] Jadyn Chavez MD) Hx of left breast implant History of reconstruction of left breast History of bladder surgery History of bilateral cataract extraction History of tonsillectomy and adenoidectomy H/O uvulectomy History of lumbar discectomy History of carpal tunnel release History of bilateral salpingo-oophorectomy History of total abdominal hysterectomy Family History (Updated 01/20/24 @ 09:47 by Janel Wick) Mother Arthritis Blood clot in leg Heart disease Father Blood clot in leg CVA (cerebral vascular accident) Sister Colon cancer Social History (Updated 01/20/24 @ 10:08 by Janel Wick) Smoking Status: Former smoker how long ago did patient quit smoking: quit 2015 alcohol intake: current substance use type: does not use additional social history: pt denies vaping, denies marijuana use, denies edibles, denies aspirin use Uses 600 mg ibuprofen HPI pre #2 right breast lift, left revision skin fold Details: Cata comes in for review of the upcoming right breast reduction/lift and left lateral breast revision. She has obtained her medical clearance. She will be obtaining her PAT labs today. She has had a previous normal mammogram on the right side. Exam Details Patient with breast asymmetry with the right breast being slightly larger and ptotic compared to the left breast. She also has a lateral left breast skin fold which she described as painful. This follows lateral to the flap on the left breast. The procedure of right breast reduction/lift and left breast revision was reviewed with her including the incisions and scars as well as limitations after surgery. The expected pre-, intra, and postoperative course were reviewed. I have written prescriptions for Keflex and Percocet and their use and precautions reviewed. The pre and postoperative instructions were reviewed. This includes the need for sleeping in a recliner position, keeping her incisions dry, and limiting her lifting and reaching. The potential risks and complications of surgery were reviewed which include but are not exclusive of bleeding, infection, pain, numbness, asymmetry, scar tissue, skin necrosis, the need for further surgery, DVT, and even . She attends the appointmen (more content not included)... [facility] Prothrombin Time w/INRon INR Coag (PPP) [Relative time] 1.1 {INR} [facility] Comment on above: Order Comment: Ester nts: pre surgery testing Performed By: #### L 300.4310, L500.2500, L300.3900, L100.0500 ####[facility] [address] [place], [place], [address] PT Coag (PPP) [Time] 13.8 s Normal 11.7-14.9 [facility] Comment on above: Order Comment: Ester nts: pre surgery testing Performed By: #### L 300.4310, L500.2500, L300.3900, L100.0500 ####[facility] [address] [place], [address] Plastic Surgery Visit Report on 02-04-2024 Plastic Surgery Visit Report [facility]astic [facility] Surgery [address], [address] [place], [place] [address] OFFICE VISIT Date of Service: 02/04/24 MR#: [id number] Acct: [id number] Name: BRIGITTE HIGH Rep #: [id number] : 1950 Provider: Dr. Jadyn mccall MD Age/Sex: 73/F Location: [facility] [place] [facility] Status: Signed Intake Vital Signs 01/20/24 10:05 02/04/24 10:02 Height 5 ft 5 in 5 ft 5 in Weight: 160 lb 161 lb 6 oz BMI 26.6 26.8 BP 122/77 H 131/87 H Blood Pressure Location Rt brachial Rt brachial Position Sitting Sitting Respiration 16 16 Pulse 65 64 Temp 99.4 F H 97.6 F L Temp Source Temporal Oral Pulse Oximetry (%) 97 93 Oxygen Delivery Method room air room air Intake Visit Reasons: pre #1 right breast lift/left revision skin fold Chief Complaint: pre op #1 right breast lift/left skin fold revision Accompanied by: Daughter Is patient in pain?: No Allergies cat dander (cats) Allergy (Mild, Verified 02/04/24 10:04) Other Environmental Allergies: Uncoded (dust) Allergy (Mild, Verified 02/04/24 10:04) Itching Medications ???Medication ???Instructions ???Recorded ???Confirmed ???Type cholecalciferol (vitamin D3) 125 125 mcg PO DAILY 01/20/24 02/04/24 History mcg (5,000 unit) capsule coffee extract 100 mg-phosphatidyl cap PO 01/20/24 02/04/24 History serine 100 mg capsule (Neuriva Original) ibuprofen 600 mg tablet 600 mg PO Q6H PRN 01/20/24 02/04/24 History jgvroslnoypu-Eu-olrr-mine rals tab PO 01/20/24 02/04/24 History vitamin C 45 mg-zinc citrate 3.75 tab PO 01/20/24 02/04/24 History mg-elderberry 50 mg chewable tablet ([employer]) coffee extract 100 mg-phosphatidyl cap PO 02/04/24 02/04/24 History serine 100 mg capsule (Neuriva Original) pcggxgpewk-TS-njwnyegbrfw en 6.25 ml PO 02/04/24 02/04/24 History mg-15 mg-325 mg/15 mL oral liquid (Vicks Nyquil Nighttime Relief) Have you fallen in the past year?: No Nurse's Note: pt here with daughter(Chrissy) preop #1 PFSH Medical History (Updated 01/20/24 @ 10:[address] Jadyn Chavez MD) History of breast cancer History of visual impairment History of hearing problem History of back problems History of arthritis History of anemia History of seasonal allergies Surgical History (Updated 01/20/24 @ 10:[address] aJdyn Chavez MD) Hx of left breast implant History of reconstruction of left breast History of bladder surgery History of bilateral cataract extraction History of tonsillectomy and adenoidectomy H/O uvulectomy History of lumbar discectomy History of carpal tunnel release History of bilateral salpingo-oophorectomy History of total abdominal hysterectomy Family History (Updated 01/20/24 @ 09:47 by Janel Wick) Mother Arthritis Blood clot in leg Heart disease Father Blood clot in leg CVA (cerebral vascular accident) Sister Colon cancer Social History (Updated 01/20/24 @ 10:08 by Janel Wick) Smoking Status: Former smoker how long ago did patient quit smoking: quit 2015 alcohol intake: current substance use type: does not use additional social history: pt denies vaping, denies marijuana use, denies edibles, denies aspirin use Uses 600 mg ibuprofen HPI pre #1 right breast lift/left revision skin fold Details: Real comes in for further discussion regarding the proposed right breast mastopexy and left breast reconstruction revision of redundant skin. She is scheduled for surgery. She had had surgery in October including a cardiac clearance. She is otherwise in good health. She denies current use of nicotine or marijuana. Exam Details The breast volume of her right side is comparable to the left reconstructed side. Therefore we discussed mastopexy on the right side. On the left side, she has a redundant fold of tissue lateral to the flap. I reviewed excision and closure of this area. I indicated that we would not be taking subcutaneous fat to avoid compromising the pedicle. The incisions and scars as well as limitations after surgery were reviewed. 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 I discussed the need for a recliner and the limitations in driving and showering after surgery. She takes a significant amount of anti-inflammatory daily including ibuprofen morning and night as well as NyQuil. I reviewed the need to abstain from this for at least 2 weeks before surgery. I have given her a packet of information to review prior to the next appointment which includes instructions and an informed consent. Coding Level of Care Code Off vis,est,level 4 Diagnoses Painful periwound skin R23.8 Breast asymmetry between [place] breast and reconstructed breast N65.1 Ptosis of right breast N64.81 Status post left br (more content not included)... [facility] Surgery Visit Report on 01-20-2024 Plastic Surgery Visit Report [facility] Plastic Reconstructive Surgery [address], [address] [place] [address] OFFICE VISIT Date of Service: 01/20/24 MR#: [id number] Acct: [id number] Name: BRIGITTE HIGH Rep #: [id number] : 1950 Provider: Dr. Jadyn mccall MD Age/Sex: 73/F Location: [facility] Status: Signed Intake Vital Signs 01/20/24 10:05 Height 5 ft 5 in Weight: 160 lb BMI 26.6 BP 122/77 H Blood Pressure Location Rt brachial Position Sitting Respiration 16 Pulse 65 Temp 99.4 F H Temp Source Temporal Pulse Oximetry (%) 97 Oxygen Delivery Method room air Intake Visit Reasons: IMPLANT ISSUES/ SCAR ISSUES Chief Complaint: left implant issue/scar revision Accompanied by: Friend Allergies cat dander (cats) Allergy (Mild, Verified 01/20/24 09:49) Other Environmental Allergies: Uncoded (dust) Allergy (Mild, Verified 01/20/24 09:49) Itching Medications ???Medication ???Instructions ???Recorded ???Confirmed ???Type cholecalciferol (vitamin D3) 125 125 mcg PO DAILY 01/20/24 01/20/24 History mcg (5,000 unit) capsule coffee extract 100 mg-phosphatidyl cap PO 01/20/24 01/20/24 History serine 100 mg capsule (Neuriva Original) ibuprofen 600 mg tablet 600 mg PO Q6H PRN 01/20/24 01/20/24 History cjepdrilbgcg-In-ceja-mine rals tab PO 01/20/24 01/20/24 History vitamin C 45 mg-zinc citrate 3.75 tab PO 01/20/24 01/20/24 History mg-elderberry 50 mg chewable tablet ([employer]) Have you fallen in the past year?: No Nurse's Note: pt here for left breast reconstruction/concern, scar on back from surgery PFSH Medical History (Updated 01/20/24 @ 10:[address] Jadyn Chavez MD) History of breast cancer History of visual impairment History of hearing problem History of back problems History of arthritis History of anemia History of seasonal allergies Surgical History (Updated 01/20/24 @ 10:[address] Jadyn Chavez MD) Hx of left breast implant History of reconstruction of left breast History of bladder surgery History of bilateral cataract extraction History of tonsillectomy and adenoidectomy H/O uvulectomy History of lumbar discectomy History of carpal tunnel release History of bilateral salpingo-oophorectomy History of total abdominal hysterectomy Family History (Updated 01/20/24 @ 09:47 by Janel Wick) Mother Arthritis Blood clot in leg Heart disease Father Blood clot in leg CVA (cerebral vascular accident) Sister Colon cancer Social History (Updated 01/20/24 @ 10:08 by Janel Wick) Smoking Status: Former smoker how long ago did patient quit smoking: quit 2015 alcohol intake: current substance use type: does not use additional social history: pt denies vaping, denies marijuana use, denies edibles, denies aspirin use Uses 600 mg ibuprofen HPI IMPLANT ISSUES/ SCAR ISSUES Details: Cata is a 73-year-old female patient who presents for bilateral breast assessment. She underwent a left breast reconstruction following mastectomy in 1998. She had to have an implant replacement in 1999 for leaking implant. She believes her implants are saline. She also had a latissimus flap done at the time of her mastectomy. She had her initial surgery at [facility] and the second surgery at [facility]. She has a history of nicotine use and quit in 2006 after smoking 35 years. She admits to a titanium plate in her neck. She states she had an MRI of her breast last year which did not demonstrate any issues. ROS General General: Yes good health; No fatigue, fever(s) or weight loss HENMT HENMT: Yes rhinitis; No sore throat/mouth sore, nasal congestion, contacts or glaucoma Endo Endocrine: Yes cold intolerance; No thyroid disease, polydipsia, heat intolerance, hepatitis or excessive urine Skin Skin: No Bleeding, bruising, changing moles or suspicious lesion Musc Musculoskeletal: Yes joint pain, joint stiffness, muscle weakness and back pain; No osteoarthritis or Muscle aches/ myalgia Neuro Neurological: No headache(s), No lightheadedness and No numbness Cardio Cardiovascular: No chest pain, pacemaker, fatigue or shortness of breat with exertion Psych Psychiatric: No depression, claustrophobia or anxiety Resp Respiratory: No spitting up, shortness of breath, sleep apnea, asthma, emphysema, TB, Cough or Smoker Gastro Gastrointestinal: Yes constipation; No diarrhea, blood in stool, nausea, vomiting or abdominal bloating Jah Hematologic: No anemia, No bleeding and No abnormal bleeding Genitourinary: Yes urinary frequency; No blood in urine or incontinence Exam Details Patient with evidence of a latissimus flap on the left side with an implant. The implant appears to be intact. She has ptos (more content not included)... [facility] C Urineon 11-06-2023 Bacteria identified Cx Nom (U) Microbiology PROCEDURE: Urine Culture [R1] SOURCE: U Random BODY SITE: COLLECTED DATE/TIME: 11/04/2023 14:56 EDT RECEIVED DATE/TIME: 11/04/2023 20:15 EDT START DATE/TIME: 11/04/2023 20:15 EDT FREE TEXT SOURCE: JORJE FIGUEROA, Star RECINOS MD, Star Villavicencio FINAL REPORTS Final Report [] Verified Date/Time: 11/06/2023 10:14 EDT >100,000 cfu/ml Klebsiella pneumoniae SUSCEPTIBILITY RESULTS __ LEGEND: S=Susceptible, N/R=Not Reported, Blank=Data not available, or drug not advisable or tested, I=Intermediate, ESBL=Extended spectrum beta-lactamase, R=Resistant, TFG=Thymidine-dependent strain, AZEB=Beta-lactamase positive, THANH=mcg/m;(mg/L), S*=Predicted susceptible interp, R*=Predicted resistant interp Klepne Antibiotic THANH Dilutn THANH Interp Amikacin <=16 S Ampicillin >16 R Ampicillin/ >16/8 R Sulbactam Aztreonam <=4 S Cefazolin 4 S Cefepime <=2 S Cefoxitin <=8 S Ceftazidime <=1 S Ceftazidime/ <=8 S Avibactam Ceftriaxone <=1 S Ciprofloxacin <=1 S Ertapenem <=0.5 S Gentamicin <=4 S Levofloxacin <=2 S Meropenem <=1 S Nitrofurantoin <=32 S Piperacillin/ <=16 S Tazobactam Tetracycline <=4 S Tigecycline <=2 S Tobramycin <=4 S Trimethoprim/ <=2/38 S Sulfa Performing Locations R1: This test was performed at: [facility], [address] [place] [address], [id number] [place] [address], [facility] Comment on above: Performed By: #### 2 [id number] ####[place] [address] Pathology Noteon 11-05-2023 Pathology Note [id number]#1.00TIFF [facility] Pathology Noteon 10-23-2023 Pathology Note [id number]#1.00TIFF [facility] Pathology Noteon 10-21-2023 Pathology Note [id number]#1.00TIFF [facility] Pathology Note [id number]#1.00TIFF [facility] Pathology Noteon 10-20-2023 Pathology Note [id number]#1.00TIFF [facility] Pathology Noteon 10-17-2023 Pathology Note [id number]#1.00TIFF [facility] Pathology Note [id number]#1.00TIFF [facility] Pathology Noteon 10-08-2023 Pathology Note [id number]#1.00TIFF [facility] SURGICAL PATHOLOGY REFERENCE LAB CONSULTon 10-08-2023 CASE REPORT [facility] Comment on above: Order Comment: Speci men Type: FORMALIN-FIXED PARAFFIN-EMBEDDED TISSUE SPECIMEN Ordering Facility: [facility] Address: [address] [place] [phone] Result Comment: Surg ical Pathology Report Case: [id number] Authorizing Provider: Star Recinos MD Collected: 10/08/2023 07:46 PM Ordering Location: [facility] Received: 10/08/2023 07:45 PM [facility] Pathologist: Hema Ho MD Specimen: SLIDE(S), 4 SLIDES ([id number]) Performed By: #### L [id number] #### [facility] CLIA [id number] [address] [place] [address] [place] CLINICAL HISTORY CONSULT REQUESTED Normal [facility] Comment on above: Order Comment: Speci men Type: FORMALIN-FIXED PARAFFIN-EMBEDDED TISSUE SPECIMEN Ordering Facility: [facility] Address: [address] [place] [phone] Performed By: #### L [id number] #### [facility] CLIA [id number] [address] [place] [address] [place] DIAGNOSIS COMMENT Normal [facility] Comment on above: Order Comment: Speci men Type: FORMALIN-FIXED PARAFFIN-EMBEDDED TISSUE SPECIMEN Ordering Facility: [facility] Address: [address] [place] [phone] Result Comment: No i nvasive component is found in the sample examined. P16 immunostain performed at the referring institution is diffusely/strongly positive. Further, high-risk HPV CISH performed at the [facility] is positive. Laboratory Developed Test (LDT) Disclaimer: Performance characteristics of immunohistochemical, immunofluorescent and chromogenic in-situ hybridization tests have been determined by the performing laboratory within [facility]???s [facility] Laboratory Medicine David ([facility], [facility], [facility], [facility], [facility], [facility], [facility], or [facility]) in a manner consistent with CLIA requirements. One or more of these tests have not been cleared or approved by the FDA. [facility] is regulated under CLIA as qualified to perform high-complexity testing. These tests are used for clinical purposes. They should not be regarded as investigational or for research. Positive and negative controls stain appropriately. Performed By: #### L [id number] #### [facility] CLIA [id number] [address] [place] [address] FINAL DIAGNOSIS [facility] Comment on above: Order Comment: Speci men Type: FORMALIN-FIXED PARAFFIN-EMBEDDED TISSUE SPECIMEN Ordering Facility: [facility] Address: [address] [place], [place] [phone] Result Comment: A. U rethral mass, excision: ([id number], 09/25/2023) - High-grade squamous intraepithelial lesion (see comment). Performed By: #### L [id number] #### [facility] CLIA [id number] [address] [place] [address] OF [facility] FINAL PERFORMING LAB [facility] Comment on above: Order Comment: Speci men Type: FORMALIN-FIXED PARAFFIN-EMBEDDED TISSUE SPECIMEN Ordering Facility: [facility] Address: [address] [place] [phone] Result Comment: Diag nostic interpretation performed at [address] [address] CLIA# [id number] Network Project Manager: Eleazar Sutherland M.D. Performed By: #### L [id number] #### [facility] CLIA [id number] [address] [place] [address] [id number] [place] [address] [place] Patient Educationon 10-06-19 Patient Education Obstetrics and Gynec ology Kegel Exercises Kegel exercises can help strengthen your pelvic floor muscles. The pelvic floor is a group of muscles that support your rectum, small intestine, and bladder. In females, pelvic floor muscles also help support the uterus. These muscles help you control the flow of urine and stool (feces). Kegel exercises are painless and simple. They do not require any equipment. Your provider may suggest Kegel exercises to: ? Improve bladder and bowel control. ? Improve sexual response. ? Improve weak pelvic floor muscles after surgery to remove the uterus (hysterectomy) or after , in females. ? Improve weak pelvic floor muscles after prostate gland removal or surgery, in males. Kegel exercises involve squeezing your pelvic floor muscles. These are the same muscles you squeeze when you try to stop the flow of urine or keep from passing gas. The exercises can be done while sitting, standing, or lying down, but it is best to vary your position. Ask your health care provider which exercises are safe for you. Do exercises exactly as told by your health care provider and adjust them as directed. Do not begin these exercises until told by your health care provider. Exercises How to do Kegel exercises: 1. Squeeze your pelvic floor muscles tight. You should feel a tight lift in your rectal area. If you are a female, you should also feel a tightness in your vaginal area. Keep your stomach, buttocks, and legs relaxed. 2. Hold the muscles tight for up to 10 seconds. 3. Breathe normally. 4. Relax your muscles for up to 10 seconds. 5. Repeat as told by your health care provider. Repeat this exercise daily as told by your health care provider. Continue to do this exercise for at least 4?6 weeks, or for as long as told by your health care provider. You may be referred to a physical therapist who can help you learn more about how to do Kegel exercises. Depending on your condition, your health care provider may recommend: ? Varying how long you squeeze your muscles. ? Doing several sets of exercises every day. ? Doing exercises for several weeks. ? Making Kegel exercises a part of your regular exercise routine. This information is not intended to replace advice given to you by your health care provider. Make sure you discuss any questions you have with your health care provider. Document Revised: 11/22/2021 Document Reviewed: 11/22/2021 [employer] Patient Education ? 2022 [employer]. [employer] [facility] Urology Office/Clinic Noteon 10-06-2023 Urology Office/Clinic Note Chief Complaint follow up HPI Staff F/u to Excision of urethral prolapse done 09/25/23 to review pathology. Dx: UTI, left flank pain, urethral caruncle, incomplete bladder emptying and former smoker. Patient has catheter still-states she has noticed intermittent discharge around catheter and in catheter bag History of Present Illness Tests reviewed: reviewed path report I have reviewed the previous health record information and history for this patient from Dr. Recinos. I have reviewed and verified the staff HPI to be accurate for this encounter. Review of Systems PHQ Score Initial Depression Screen Score: 0 SCORE ROS - Provider Constitutional: denies weight loss, denies hot flashes. Eyes: denies eye problems. Gastrointestinal: denies nausea, denies vomiting. Cardiovascular: denies chest pain or angina. Integumentary: no dryness Musculoskeletal: denies musculoskeletal symptoms. ENMT: denies otolaryngeal symptoms. Respiratory: no shortness of breath. Heme/Lymph: denies easy bleeding tendency, denies easy bruising tendency. Psychiatric: no confusion, no anxiety. Genitourinary: See HPI. Physical Exam Vitals & Measurements HT: 65 in HT: 165 cm WT: 72 kg WT: 158.4 lb BMI: 26.45 General Appearance: alert , no acute distress, well nourished, well developed female. Genitourinary: bladder nonpalpable, no flank pain. Assessment/Plan Brigitte is a 72 yo female initially referred by Kristyn Dougherty CNP for urinary frequency and caruncle. Pt states she is going to [place] in November. 1. 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 High grade trabeculation. No leakage with Valsalva maneuver. S/p Cysto/Excision of urethral prolapse 09/25/23. Had 18 Fr Martinez catheter placed. 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 The pathology report was reviewed with the patient in detail today.This was discussed with the patient and all questions were answered in terms the patient could understand completely, along with the implications. We will be making plans for further treatment and evaluation as the results demand. The patient understands and agrees with this plan. -Pathology sent to [facility] for second opinion, will call pt with results -Pt's catheter has been removed in office with no complications. They have been advised to drink plenty of fluids. Pt. has been instructed to call the office in the event that they are not able to void in the next 4-6 hrs. Advised pt. to go to the ER if they experience any severe bleeding, fever over 101, and/or shaking chills. 2. Incomplete bladder emptying (R33.9: Retention of urine, unspecified) PVR 08/25/23 - [address] AP wo con 08/26/23 [facility] - Moderate fluid distention of bladder. No abnormalities. Started on Myrbetriq at time of cysto. 3. History of UTI (Z87.440: Personal history of urinary (tract) infections) Hx of breast cancer, tx'd w/ mastectomy. Tried estrogen cream and hormone cream but had SE of irritation on hormone replacement therapy. Treated with Augmentin x60 days at last OV. Denies any UTI sxs. 4. Kidney stones (N20.0: Calculus of kidney) CT AP wo con 08/26/23 [facility] - Punctate bilateral nonobstructing nephrolithiasis. No hydro. 5. Former smoker (Z87.891: Personal history of nicotine dependence) Quit at age 56. Risk factor for urothelial ca. [1] Follow-up With When Contact Information JORJE FIGUEROA, Star Villavicencio, URL [facility] [address], [place] [address]- [phone] Additional Instructions: toro call pt to review updated path Patient Education Pascual Buckner I, Pari Anton, personally scribed for Dr. Recinos on 10/06/2023 17:16:07. . Documentation recorded by the scribe, Pari Anton, accurately reflects the services(s) I performed and decisions made by me. Authenticated by Dr. Recinos on 10/06/2023 17:17:36. Problem List/Past Medical History Ongoing Anemia Arthritis Deafness Flank pain Former smoker Headache History of UTI Hx of breast cancer Incomplete bladder emptying Kidney stones Urethral caruncle UTI (urinary tract infection) Historical No qualifying data Procedure/Surgical History Carpal tunnel release, CE - Cataract extraction, Extraction of wisdom tooth, Mastectomy, Procedure on back, Procedure on neck. Medications Adipex-P, Oral, Daily Augmentin 875 mg oral tablet, 1 tab(s), Oral, q24hr, 1 refills calcium-vitamin D elderberry oral liquid multivitamin with iron Myrbetriq 50 mg oral tablet, extended release Allergies Tylenol (Ringing in ears) Social History Alcohol Current, Wine, Daily, 2 drinks/episode average. 2.00 drinks/episode maximum. Alcohol use interferes with work or home: No. Drinks more than intended: No. Others hurt by drinking: No. Wilma (more content not included)... [facility] Comment on above: Result Comment: Elec tronically Signed By: Star RECINOS MD\.br\Date and Time Signed: 10/06/23 17:17 EDT\.br\Electronically Co-Signed By: Pari Anton\.br\Date and Time Co-Signed: 10/06/23 17:16 EDT Pathology Noteon 10-02-2023 Pathology Note [id number]#1.00TIFF [facility] Fabian 09-25-2023 L Specimen: [id number] Received: 09/26/23-1329 Status: SOUT Req Num: [id number] Spec Type: Surgical Subm Dr: Star Recinos MD Tissues: A Urethra Biopsy (URETHRAL MASS) Procedures: HE/2, Gross/Micro L4, Ki-67, CINtec p16, IHC First AB Age/ Patient Sex Location Account Attending Physician Brigitte High 72/F [facility] [id number] Star Recinos MD SPEC NUM: [id number] RECD: 09/26/23-1328 STATUS: MEHREEN TAVAREZ NUM: [id number] CRESCENCIO: 09/25/23- SUBM DR: Star Recinos MD ENTERED: 09/26/23-[address]: MARIA E TYPE: Surgical DEPT: HONG GARCIA ORDERED: HE/2, Gross/Micro L4, Ki-67, CINtec p16, IHC First AB ORDERED: HE/2, Gross/Micro L4, Ki-67, CINtec p16, IHC First AB, IMMUNOHISTOCHEM Supplemental Report Addendum 2 Entered: 10/20/23-1132 Supplemental for findings of consultation report from [facility]: -No discrepancy between the diagnosis of the original report and the findings of consultation report from [facility] -Please also see the first supplemental report issued below Addendum Signed (signature on file) Chicho-Freddy Horvath MD 10/20/23 113 Addendum 1 Entered: 10/16/23-1436 Urethral mass, excision: ? High-grade squamous intraepithelial lesion. ? Comment: This specimen was reviewed by Dr. Hema Ho at the [facility], who rendered the diagnosis above. She noted that no invasive carcinoma is present in the sample examined. P16 immunostain performed at the referring institution is diffusely/strongly positive. Further, high-risk HPV CISH performed at the [facility] is positive. Specimen: [id number] Received: 09/26/23 Status: MEHREEN Tavarez Num: [id number] Spec Type: Surgical Subm Dr: Star Recinos MD Tissues: A Urethra Biopsy (URETHRAL MASS) Procedures: HE/2, Gross/Micro L4, Ki-67, CINtec p16, IHC First AB Patient: Brigitte High [id number] (Continued) Specimen: [id number] Received: 09/26/23 (Continued) Supplemental Report (Continued) Signed (signature on file) Rocío Horvath MD 09/29/23 1838 Specimen: [id number] Received: 09/26/23 Status: MEHREEN Tavarez Num: [id number] Spec Type: Surgical Subm Dr: Star Recinos MD Tissues: A Urethra Biopsy (URETHRAL MASS) Procedures: HE/2, Gross/Micro L4, Ki-67, CINtec p16, IHC First AB Patient: Brigitte High [id number] (Continued) Specimen: [id number] Received: 09/26/23-1329 (Continued) Supplemental Report (Continued) Addendum Signed (signature on file) Ildefonso Bella MD 10/16/23 1506 Pathological Diagnosis Urethral mass, excision: -High-grade squamous intraepithelial lesion of at least moderate dysplasia including patchy foci of grade 2?3/3, otherwise without stromal invasion -Ki-67 (at least 70% of lesional cells) and p16 (strongly positive of the entire epithelial layer) immunostains with appropriate control also show findings supporting the above interpretation -Lesion is present in at least one peripheral edge Clinical Information Urethral prolapse Gross Description Received in formalin labeled with the patient's name, date of and urethral mass is a 1.1 x 0.7 x 0.4 cm sloan-wetzel, rubbery tissue that is partially surfaced by sloan-wetzel mucosa. The specimen is inked and bisected revealing a rubbery, sloan-wetzel cut surface. Entirely submitted in one cassette labeled A1. CPT Codes 96354 18902, 35578 Specimen: [id number] Received: 09/26/23 Status: MEHREEN Tavarez Num: [id number] Spec Type: Surgical Subm Dr: Star Recinos MD Tissues: A Urethra Biopsy (URETHRAL MASS) Procedures: HE/2, Gross/Micro L4, Ki-67, CINtec p16, IHC First AB Patient: KodyJody macdonaldie [id number] (Continued) Signed (signature on file)___ (more content not included)... [facility] Operative Reporton 4 Operative Report [id number]#1.00TIFF [facility] Provider Letteron 09-16-2023 Provider Letter (Inserted Image. Laura ble to display) September 16, 2023 BRIGITTE HIGH [address] [place] [id number] : 1950 To Whom It May Concern, Please excuse above patient from work. Date of Illness: From: 09/25/2023 To: 10/09/2023 May Return to Work On:10/10/2023 Restrictions: N/A Comments: Patient is having a surgical procedure done 09/25/23, and may return to work on 10/10/23 without restrictions. Sincerely, [facility] ECG 12-Leadon 09-12-2023 ECG 12-Lead [id number]#1.00TIFF [facility] Lab Reportson 09-12-2023 Lab Reports [id number]#1.00TIFF [facility] Lab Reports [id number]#1.00TIFF [facility] Consent for Procedure/Surger yon 09-10-2023 Consent for Procedure/Surgery [id number]#1.00TIFF [facility] Operative Reporton 4 Operative Report [id number]#1.00TIFF [facility] Physician Referralon 024 Physician Referral [id number]#1.00TIFF [facility] Consent for Procedure/Surger yon 08-26-2023 Consent for Procedure/Surgery [id number]#1.00TIFF [facility] RAD - CT Reporton 08-26-2023 RAD - CT Report [id number]#1.00TIFF [facility] Ambulatory Visit Summaryon 0 08-25-2023 Ambulatory Visit Summary BRIGITTE HIGH :1950 Visit Date:08/25/2023 Ambulatory Visit Instructions Your Diagnosis UTI (urinary tract infection) Flank pain Urethral caruncle Incomplete bladder emptying Former smoker Tests Performed CT Abdomen/Pelvis w/o Contrast -- Results Pending -- Please visit your patient portal for your results or contact your primary care physician. Your Care Team Attending Physician - Star RECINOS MD Primary Care Physician - KRISTYN DOUGHERTY CNP Referring Physician - KRISTYN DOUGHERTY CNP This Is Your Medications List amoxicillin-clavulanate (Augmentin 875 mg oral tablet) Contact prescribing physician if questions or concerns calcium-vitamin D multivitamin with iron phentermine (Adipex-P) Procedures Performed Carpal tunnel release, CE - Cataract extraction, Extraction of wisdom tooth, Mastectomy, Procedure on back, Procedure on neck. Discharge Vitals Heart Rate (Peripheral) 79 Respiratory Rate 16 Blood Pressure 134/84 Height 165 cm Height 65 in Weight 72 kg Weight 158.4 lb BMI 26.45 What to do next You Need to Schedule the Following Appointments Follow Up with JORJE FIGUEROA, Star Villavicencio, URL When: Comments: sched cysto/UD Where: [facility] [address] , [place] [address]- [phone] Medications What How Much When Instructions New amoxicillin-clavulanate (Augmentin 875 mg oral tablet) 1 Tablets By Mouth Every 24 hours Duration: 30 Days Refills: 1 Take with probiotics and with food. Pickup at [facility]/pharmacy #[id number] Unchanged calcium-vitamin D Contact prescribing physician if questions or concerns Unchanged multivitamin with iron Contact prescribing physician if questions or concerns Unchanged phentermine (Adipex-P) By Mouth Every day Contact prescribing physician if questions or concerns Pharmacy Information [facility]/pharmacy #[id number]: [address], [place] [phone] Allergies Tylenol (Ringing in ears) Problems Ongoing - Any problem that you are currently receiving treatment for. Anemia Arthritis Deafness Flank pain Former smoker Headache Hx of breast cancer Incomplete bladder emptying Urethral caruncle UTI (urinary tract infection) Patient Survey You may receive a survey via text or e-mail asking about your office visit. Please share your experience with us by completing your survey. We appreciate your feedback and thank you for choosing us for your care. Education Materials Urinary Tract Infection, Adult A urinary tract infection (UTI) is an infection of any part of the urinary tract. The urinary tract includes: ? The kidneys. ? The ureters. ? The bladder. ? The urethra. These organs make, store, and get rid of pee (urine) in the body. What are the causes? This infection is caused by germs (bacteria) in your genital area. These germs grow and cause swelling (inflammation) of your urinary tract. What increases the risk? The following factors may make you more likely to develop this condition: ? Using a small, thin tube (catheter) to drain pee. ? Not being able to control when you pee or poop (incontinence). ? Being female. If you are female, these things can increase the risk: ? Using these methods to prevent : ? A medicine that kills sperm (spermicide). ? A device that blocks sperm (diaphragm). ? Having low levels of a female hormone (estrogen). ? Being . You are more likely to develop this condition if: ? You have genes that add to your risk. ? You are sexually active. ? You take antibiotic medicines. ? You have trouble peeing because of: ? A prostate that is bigger than normal, if you are male. ? A blockage in the part of your body that drains pee from the bladder. ? A kidney stone. ? A nerve condition that affects your bladder. ? Not getting enough to drink. ? Not peeing often enough. ? You have other conditions, such as: ? Diabetes. ? A weak disease-fighting system (immune system). ? Sickle cell disease. ? Gout. ? Injury of the spine. What are the signs or symptoms? Symptoms of this condition include: ? Needing to pee right away. ? Peeing small amounts often. ? Pain or burning when peeing. ? Blood in the pee. ? Pee that smells bad or not like normal. ? Trouble peeing. ? Pee that is cloudy. ? Fluid coming from the vagina, if you are female. ? Pain in the belly or lower back. Other symptoms include: ? Vomiting. ? Not feeling hungry. ? Feeling mixed up (confused). This may be the first symptom in older adults. ? Being tired and grouchy (irritable). ? A fever. ? Watery poop (diarrhea). How is this treated? ? Taking antibiotic medicine. ? Taking other medicines. ? Drinking enough water. In some cases, you may need to see a specialist. Follow these (more content not included)... [facility] Ambulatory Visit Summary BRIGITTE HIGH :1950 Visit Date:08/25/2023 Ambulatory Visit Instructions Your Diagnosis UTI (urinary tract infection) Flank pain Urethral caruncle Former smoker Your Care Team Attending Physician - Star RECINOS MD Primary Care Physician - KRISTYN DOUGHERTY CNP Referring Physician - KRISTYN DOUGHERTY CNP This Is Your Medications List Contact prescribing physician if questions or concerns calcium-vitamin D multivitamin with iron phentermine (Adipex-P) Procedures Performed Carpal tunnel release, CE - Cataract extraction, Extraction of wisdom tooth, Mastectomy, Procedure on back, Procedure on neck. Discharge Vitals Heart Rate (Peripheral) 79 Respiratory Rate 16 Blood Pressure 134/84 Height 165 cm Height 65 in Weight 72 kg Weight 158.4 lb BMI 26.45 Medications What How Much When Instructions Unchanged calcium-vitamin D Contact prescribing physician if questions or concerns Unchanged multivitamin with iron Contact prescribing physician if questions or concerns Unchanged phentermine (Adipex-P) Every day Contact prescribing physician if questions or concerns Allergies Tylenol (Ringing in ears) Problems Ongoing - Any problem that you are currently receiving treatment for. Anemia Arthritis Deafness Flank pain Former smoker Headache Hx of breast cancer Urethral caruncle UTI (urinary tract infection) Patient Survey You may receive a survey via text or e-mail asking about your office visit. Please share your experience with us by completing your survey. We appreciate your feedback and thank you for choosing us for your care. Education Materials Urinary Tract Infection, Adult A urinary tract infection (UTI) is an infection of any part of the urinary tract. The urinary tract includes: ? The kidneys. ? The ureters. ? The bladder. ? The urethra. These organs make, store, and get rid of pee (urine) in the body. What are the causes? This infection is caused by germs (bacteria) in your genital area. These germs grow and cause swelling (inflammation) of your urinary tract. What increases the risk? The following factors may make you more likely to develop this condition: ? Using a small, thin tube (catheter) to drain pee. ? Not being able to control when you pee or poop (incontinence). ? Being female. If you are female, these things can increase the risk: ? Using these methods to prevent : ? A medicine that kills sperm (spermicide). ? A device that blocks sperm (diaphragm). ? Having low levels of a female hormone (estrogen). ? Being . You are more likely to develop this condition if: ? You have genes that add to your risk. ? You are sexually active. ? You take antibiotic medicines. ? You have trouble peeing because of: ? A prostate that is bigger than normal, if you are male. ? A blockage in the part of your body that drains pee from the bladder. ? A kidney stone. ? A nerve condition that affects your bladder. ? Not getting enough to drink. ? Not peeing often enough. ? You have other conditions, such as: ? Diabetes. ? A weak disease-fighting system (immune system). ? Sickle cell disease. ? Gout. ? Injury of the spine. What are the signs or symptoms? Symptoms of this condition include: ? Needing to pee right away. ? Peeing small amounts often. ? Pain or burning when peeing. ? Blood in the pee. ? Pee that smells bad or not like normal. ? Trouble peeing. ? Pee that is cloudy. ? Fluid coming from the vagina, if you are female. ? Pain in the belly or lower back. Other symptoms include: ? Vomiting. ? Not feeling hungry. ? Feeling mixed up (confused). This may be the first symptom in older adults. ? Being tired and grouchy (irritable). ? A fever. ? Watery poop (diarrhea). How is this treated? ? Taking antibiotic medicine. ? Taking other medicines. ? Drinking enough water. In some cases, you may need to see a specialist. Follow these instructions at home: Medicines ? Take txdk-dip-qyytggk and prescription medicines only as told by your doctor. ? If you were prescribed an antibiotic medicine, take it as told by your doctor. Do not stop taking it even if you start to feel better. General instructions ? Make sure you: ? Pee until your bladder is empty. ? Do not hold pee for a long time. ? Empty your bladder after sex. ? Wipe from front to back after peeing or pooping if you are a female. Use each tissue one time when you wipe. ? Drink enough fluid to keep your pee pale yellow. ? Keep all follow-up visits. Contact a doctor if: ? You do not get better after 1?2 days. ? Your symptoms go away and then come back. Get help right away if: ? You have very bad back chacha (more content not included)... [facility] Formson 08-25-2023 Forms [id number] [facility] Patient Educationon 08-25-19 24 Patient Education Obstetrics and Gynec ology Urinary Tract Infection, Adult A urinary tract infection (UTI) is an infection of any part of the urinary tract. The urinary tract includes: ? The kidneys. ? The ureters. ? The bladder. ? The urethra. These organs make, store, and get rid of pee (urine) in the body. What are the causes? This infection is caused by germs (bacteria) in your genital area. These germs grow and cause swelling (inflammation) of your urinary tract. What increases the risk? The following factors may make you more likely to develop this condition: ? Using a small, thin tube (catheter) to drain pee. ? Not being able to control when you pee or poop (incontinence). ? Being female. If you are female, these things can increase the risk: ? Using these methods to prevent : ? A medicine that kills sperm (spermicide). ? A device that blocks sperm (diaphragm). ? Having low levels of a female hormone (estrogen). ? Being . You are more likely to develop this condition if: ? You have genes that add to your risk. ? You are sexually active. ? You take antibiotic medicines. ? You have trouble peeing because of: ? A prostate that is bigger than normal, if you are male. ? A blockage in the part of your body that drains pee from the bladder. ? A kidney stone. ? A nerve condition that affects your bladder. ? Not getting enough to drink. ? Not peeing often enough. ? You have other conditions, such as: ? Diabetes. ? A weak disease-fighting system (immune system). ? Sickle cell disease. ? Gout. ? Injury of the spine. What are the signs or symptoms? Symptoms of this condition include: ? Needing to pee right away. ? Peeing small amounts often. ? Pain or burning when peeing. ? Blood in the pee. ? Pee that smells bad or not like normal. ? Trouble peeing. ? Pee that is cloudy. ? Fluid coming from the vagina, if you are female. ? Pain in the belly or lower back. Other symptoms include: ? Vomiting. ? Not feeling hungry. ? Feeling mixed up (confused). This may be the first symptom in older adults. ? Being tired and grouchy (irritable). ? A fever. ? Watery poop (diarrhea). How is this treated? ? Taking antibiotic medicine. ? Taking other medicines. ? Drinking enough water. In some cases, you may need to see a specialist. Follow these instructions at home: Medicines ? Take ncsp-pob-xcysdqm and prescription medicines only as told by your doctor. ? If you were prescribed an antibiotic medicine, take it as told by your doctor. Do not stop taking it even if you start to feel better. General instructions ? Make sure you: ? Pee until your bladder is empty. ? Do not hold pee for a long time. ? Empty your bladder after sex. ? Wipe from front to back after peeing or pooping if you are a female. Use each tissue one time when you wipe. ? Drink enough fluid to keep your pee pale yellow. ? Keep all follow-up visits. Contact a doctor if: ? You do not get better after 1?2 days. ? Your symptoms go away and then come back. Get help right away if: ? You have very bad back pain. ? You have very bad pain in your lower belly. ? You have a fever. ? You have chills. ? You feeling like you will vomit or you vomit. Summary ? A urinary tract infection (UTI) is an infection of any part of the urinary tract. ? This condition is caused by germs in your genital area. ? There are many risk factors for a UTI. ? Treatment includes antibiotic medicines. ? Drink enough fluid to keep your pee pale yellow. This information is not intended to replace advice given to you by your health care provider. Make sure you discuss any questions you have with your health care provider. Document Revised: 02/23/2021 Document Reviewed: 02/23/2021 [employer] Patient Education ? [address] [employer] [facility] 04-02-2023 CATHYN Telephone (PLASAV) ----- BRIGITTE HIGH ([id number]) 1950 F Date Time Provider Department 04/02/23 Lawrence MEDINA PLASJESSICA During your visit today, we recorded the following information about you: Kyra Page RN 04/02/2023 7:41 AM Signed Brigitte called; she has decided to postpone any surgical procedure at this time; I have too much going on . She will contact our office if and when she is ready to proceed Allergies As of Date: 04/02/2023 Noted Allergy Reaction TYLENOL (ACETAMINOPHEN) 05/30/2014 14 - Other: See Comments Comments: Makes my ears ring Date Reviewed: 03/28/2023 Reviewed by: Radha Rosario MA - Fully Assessed Reason for Visit: Patient Update [1234] Prescriptions as of 04/02/2023 - topiramate (TOPAMAX) 25 mg tablet Take 1 tablet by mouth twice daily. - calcium carbonate 600 mg-cholecalciferol 200 units (CALCIUM 600 + D,3,) 600 mg(1,500mg) -200 unit tab Take 1 tablet by mouth once daily. - multivitamin (DAILY MULTIPLE) tablet Take 1 tablet by mouth once daily. Problem List As Of Date 04/02/2023 Noted Resolved Lipodystrophy [E88.1] 12/09/2014 Encounter Status:Closed by KYRA PAGE on 04/02/23 [facility] CNOVon 03-28-2023 CNOV Office Visit (PLASAM ) ----- BRIGITTE HIGH ([id number]) 1950 F Date Time Provider Department 03/28/23 10:00 AM Lawrence MEDINA During your visit today, we recorded the following information about you: Lawrence Medina MD 03/28/2023 10:57 AM Signed Family History: Significant Family Hx :NA Social History Smoking: No Marital Status: NA ROS: Mental status changes: No Chest pain difficulty breathing: No Bleeding problems: No Visual Disturbances No Weight change No Mood changes No Urine frequency No Joint pain No Skin changes No Hx of asthma, cough, wheezing No HPI: Brigitte High is a 72 year old with main concern:decreasing volume, and pain on her reconstructed left breast. S/p Lat Dorsi/implant reconstruction in 1999. She has done well up until a few a years ago when she noted tightening on the left reconstructed brats. The last 2 years, she has noted progressive loss of volume and worsening of pain, more within the past few months prompting this visit. Duration: few years Prior Treatment: above PMHx: None reported Exam: General: healthy appearing female, not in acutre distress Self-Perception: appropriate Mental Status: a/o x 3 Labored Breathing: no Extremity Edema:no Breast: Right Left Sternal notch-NAC 29cm NA Base width 13 13.5, contracted breast ~11cm IMF-NAC 68 NA LEFT reconstructed breast- healed scar from LD flap, visible and palpable contracture, tender to deep palpation. 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 Lawrence Medina MD Allergies As of Date: 03/28/2023 Noted Allergy Reaction TYLENOL (ACETAMINOPHEN) 05/30/2014 14 - Other: See Comments Comments: Makes my ears ring Date Reviewed: 03/28/2023 Reviewed by: Radha Rosario MA - Fully Assessed Reason for Visit: New Patient Evaluation [154] Cmt: Patient states has possible implant leak. Primary Visit Diagnosis:Breast pain [N64.4] Other Visit Diagnoses:Acquired breast deformity [N64.89] Capsular contracture of breast implant, initial encounter [T85.44XA] Prescriptions as of 03/28/2023 - topiramate (TOPAMAX) 25 mg tablet Take 1 tablet by mouth twice daily. - calcium carbonate 600 mg-cholecalciferol 200 units (CALCIUM 600 + D,3,) 600 mg(1,500mg) -200 unit tab Take 1 tablet by mouth once daily. - multivitamin (DAILY MULTIPLE) tablet Take 1 tablet by mouth once daily. Problem List As Of Date 03/28/2023 Noted Resolved Lipodystrophy [E88.1] 12/09/2014 Encounter Status:Closed by Lawrence MEDINA on 03/28/23 [facility] MRI BREAST WO IVCON BILon MRI BREAST WO IVCON CHRIS * * *Final Report* * * DATE OF EXAM: Mar 25 2023 2:01PM [facility] 0699 - MRI BREAST WO IVCON CHRIS / PROCEDURE REASON: History of breast cancer * * * * Physician Interpretation * * * * #[id number] - MRI BREAST WO IVCON CHRIS BREAST MRI OF BOTH BREASTS: 03/25/2023 HISTORY: History Of Breast Cancer/ This exam is without contrast only. RESULT: No prior exams were available for comparison. Informed consent was obtained from the patient. MRI images were obtained at 1 mm intervals with a dedicated breast MRI. PROCEDURE: The patient was studied using the dedicated breast coil of the Siemens 1.5 Melita scanner. Initial axial STIR imaging, silicone and water-suppressed imaging was obtained. No contrast was administered. FINDINGS: There is an intact retropectoral left saline implant. There is no axillary adenopathy. IMPRESSION: Left intact retropectoral saline implant. Note: This is a non-contrast exam and does not evaluate for breast cancer. Marva Bonilla M.D. tr/renato:03/26/2023 11:11:18 Permit Coordinator(s): Gray Mcdonald RT(R), [facility] MRI BI-RADS: n/a Multiple national specialty organizations have released breast cancer screening guidelines for women at average risk for developing breast cancer - guidelines that are based on both evidence and opinion, yet differ on when to start and how often to screen for breast cancer. With representation from Breast Imaging, Internal Medicine, Women's Health, Family Medicine, and Medical/Surgical Oncology, the [facility] has carefully reviewed the data and reached the following consensus: 1) All women should engage in shared decision-making with their providers to decide when to start and how often to screen; 2) All women should have the opportunity to start screening mammography at age 40; 3) For women ages 45-55, we recommend annual screening mammograms; 4) For women ages 55 and over, we support both the transition from an annual to a biennial interval if this aligns more with patient's values and preferences, or continuation with annual screening; 5) All women should discuss with their providers when to stop screening mammograms. Quality Assurance Qa Lab Technician: Renato Transcribe Date/Time: Mar 25 2023 1:29P Dictated by : MARVA BONILLA MD This examination was interpreted and the report reviewed and electronically signed by: MARVA BONILLA MD on Mar 26 2023 11:11AM EST [id number] [facility] Established Visit (Orthopaed ic Surgery)on 02-11-2023 Established Visit (Orthopaedic Surgery) Diagnoses/Problems Assessed Patella fracture (822.0) (S82.009A) Orders Patella fracture Xray Knee 3 View; Status:Resulted - Preliminary,Retrospective Authorization; Done: [id number] 10:14AM Laterality : Left Radiologist to Determine Optimal Study : Y What are the patient's signs and symptoms? : . Chief Complaint F/U Subacute left patella fracture XRAYS TODAY History of Present Illness History of Present Illness She is here today for follow-up of her left knee transverse patella fracture. She is roughly 3 months out from her injury. She has been treated with a knee brace and physical therapy. She states she is doing much better. She wears the brace on occasion when she is out of the house but does not wear it around the home. She is not using any ambulatory aids. Review of Systems GENERAL: Negative for malaise, significant weight loss, fever MUSCULOSKELETAL: see HPI NEURO: Negative Physical Exam Left knee Skin is intact without any evidence of erythema ecchymosis or effusion. No tenderness to palpation over bony landmarks Range of motion is 0 to 120 degrees The knee is stable in varus valgus and anterior posterior stresses She is distally neurovascularly intact. Imaging See dictated report from today. Assessment Left knee transverse patella fracture, healed Plan Continue with physical therapy as needed Wean out of the brace Follow-up in as needed All questions answered . Active Problems Problems Acute bronchitis (466.0) (J20.9) Acute pain of right knee (719.46) (M25.561) Allergic rhinitis (477.9) (J30.9) Arthritis (716.90) (M19.90) Atrophic vulvovaginitis (627.3) (N95.2) Back pain (724.5) (M54.9) Balance problem (781.99) (R26.89) Bowel habit changes (787.99) (R19.4) Cataracts, bilateral (366.9) (H26.9) Cervical radiculopathy, acute (723.4) (M54.12) Chronic rhinitis (472.0) (J31.0) Constipation (564.00) (K59.00) COVID-19 (079.89) (U07.1) Encounter for immunization (V03.89) (Z23) Fall (E888.9) (W19.XXXA) Fall, accidental (E888.9) (W19.XXXA) Finger swelling (729.81) (M79.89) Geographic tongue (529.1) (K14.1) Glossitis (529.0) (K14.0) H/O degenerative disc disease (V13.59) (Z87.39) H/O hysterectomy for benign disease (V88.01) (Z90.710) Hemorrhoids (455.6) (K64.9) Hip pain, bilateral (719.45) (M25.551,M25.552) Inflamed seborrheic keratosis (702.11) (L82.0) Insomnia (780.52) (G47.00) Intercostal pain (786.59) (R07.82) Knee pain, bilateral (719.46) (M25.561,M25.562) Leg weakness (729.89) (R29.898) Lumbar disc disease (722.93) (M51.9) Lumbar radiculopathy, acute (724.4) (M54.16) Lumbar spinal stenosis (724.02) (M48.061) Medication management (V58.69) (Z79.899) Memory loss or impairment (780.93) (R41.3) Neck pain (723.1) (M54.2) Other closed fracture of patella, unspecified laterality, initial encounter (822.0) (S82.099A) Other screening mammogram (V76.12) (Z12.31) Overweight (BMI 25.0-29.9) (278.02) (E66.3) Papular urticaria (698.2) (L28.2) Patella fracture (822.0) (S82.009A) Pneumonia (486) (J18.9) Polyarthropathy, multiple sites (716.50) (M13.0) Postmenopausal osteoporosis (733.01) (M81.0) Postmenopausal vaginal bleeding (627.1) (N95.0) 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) Prolapse urethral mucosa (599.5) (N36.8) Prolapsed internal hemorrhoids (455.2) (K64.8) Right knee pain, unspecified chronicity (719.46) (M25.561) Sciatica (724.3) (M54.30) Screening for colon cancer (V76.51) (Z12.11) Sleep apnea (780.57) (G47.30) Spider bite (989.5,E905.1) (T63.301A) Spinal stenosis, lumbar (724.02) (M48.061) Urinary hesitancy (788.64) (R39.11) Vitamin D deficiency (268.9) (E55.9) Weight loss (783.21) (R63.4) Word finding difficulty (V40.1) (R47.89) Past Medical History Problems History of Eye, ear, nose, and throat symptom (780.99) (R68.89) History of Greater trochanter fracture (820.20) (S72.113A) Resolved Date: 10 Jul 2020 History of anxiety (V11.8) (Z86.59) Resolved Date: 10 Jul 2020 History of depression (V11.8) (Z86.59) Resolved Date: 17 Jul 2020 Depression History of malignant neoplasm of breast (V10.3) (Z85.3) Resolved Date: 10 Jul 2020 History of vaginal bleeding (V13.29) (Z87.42) Resolved Date: 07 Jan 2022 History of Numbness and tingling (782.0) (R20.0,R20.2) Surgical History Problems History of Cataract surgery bilateral 2014 History of Hysterectomy total 1981 - due AUB and enloarged ovarian cyst History of Tonsillectomy with adenoidectomy uvula also removed History of Tubal ligation History of Varicose vein ligation Family History Mother Family history of Family history of hyperlipidemia (V18.19) (Z83.438) History of quadruple bypass Family history of Overweight Father Family history of Family history of hypertension (V17.49) (Z82.49) Social History Problems Caffeine use (V49.89) (Z78.9) Former smoker (V15.82) (Z87 (more content not included)... Normal [facility] KNEE 3 VIEWSon 02-11-2023 KNEE 3 VIEWS Patient Name: BRIGITTE HIGH STUDY: KNEE; 3 VIEWS; Left; 02/11/2023 10:14 am INDICATION: . S82.009A: Patella fracture. ACCESSION NUMBER(S): [id number] ORDERING CLINICIAN: SANDRA TAYLOR FINDINGS: Left knee films show transverse patellar fracture to stable in satisfactory position. There is filling in at the fracture site. There is moderate degenerative change seen in the medial and lateral compartments of the knee. There is also moderate degenerative change seen in the patellofemoral joint Electronically signed by: SANDRA TAYLOR MD [facility] Radiologyon 02-11-2023 XR Knee 3 Views Normal [facility] [address] Work Phone: Clinic Note - Heme Onc Sched ulingon 01-20-2023 Clinic Note - Heme Onc Scheduling Retrieve Patient Instructions: Patient Instructions: Patient Instructions: RetrievePatient Instructions Instructions Printed Schedule End of Visit Documentation: Clinic Location/Phone Number: Clinic Location/Phone Number: [place] [phone] End Of Visit MU Report Item: Visit Summary given or mailed to patientyes Mailed Appointments Electronic Signatures: Fatimah Melendez (Rev Cycl Spec) (Signed 20-Jan-2023 09:06) Authored: Retrieve Patient Instructions, End of Visit Documentation Last Updated: 20-Jan-2023 09:06 by Fatimah Melendez (Rev Cycl Spec) Normal [facility] CA27.29on 01-18-2023 CA27.29 53.0 U/mL High 0.0 - 38.6 [facility] Comment on above: Result Comment: CA 2 7.29 testing is performed by chemiluminescent immunoassay using the [employer]. Values obtained with different analytic methods cannot be used interchangeably. . Serum CA 27.29 measurement is intended for use as an aid in monitoring patients previously treated for Stage II or Stage III breast cancer. This assay is not intended for screening or diagnosis of cancer in the general population. The results must not be used as the sole means for clinical diagnosis or patient management decisions. Performed By: #### C 2729 #### [facility] [address] [place] [address] CA27.29 (CA15-3)on 3 Cancer Ag 27-29 Qn 53.0 [arb'U]/mL above high threshold 0.0 - 38.6 -[facility] [address] Work Phone: Comment on above: CA 27.29 testing is performed by chemiluminescent immunoassay using the [employer]. Values obtained with different analytic methods cannot be used interchangeably.. Serum CA 27.29 measurement is intended for use as an aid in monitoring patients previously treated for Stage II or Stage III breast cancer. This assay is not intended for screening or diagnosis of cancer in the general population. The results must not be used as the sole means for clinical diagnosis or patient management decisions. Clinic Note - Heme Onc-Follo w Up Visiton 01-17-2023 Clinic Note - Heme Onc-Follow Up Visit Patient Visit Information: Visit Type: Follow Up Visit History of Present Illness: ID Statement: BRIGITTE HIGH is a 72 year old Female Chief Complaint: I am doing okay Interval History: Ms. High is a 72 year old female with history of breast cancer who is here for medical oncology consultation. Patient is a transfer her care from [facility]. Dr. Jing Campbell is her PCP. The patient is transferring her medical oncology care here, after having been cared for by Dr. Aleyda Richardson. Her Juan Sheffield was a patient of our practice and in early 2018. Last reported mammogram 06/05/2016 done in [place]. She has history of left sided breast cancer s/p mastectomy. Her diagnostic right mammogram was negative for abnormalities. The patient was diagnosed with T2N1M0 carcinoma of the left breast, undergoing left radical mastectomy in 1998, followed by post op chemotherapy. She also has osteoporosis as well as cervical spondylosis. Dr. Davies offered and performed fusion surgery of 2 vertebrae, which improved the pain she was having in her neck and hands. She also has a history of peptic ulcer disease, and had panendoscopy in January 2009, and a repeat EGD done in 2017, which showed normal findings. For her osteoporosis, she had been on Fosamax with Calcium and Vitamin D supplements previously, with the osteoporosis pain centered in her right hip, at one point she was switched to Prolia which the patient discontinued previously. Last visit with Dr. Richardson was August 28, 2016. CA27.29 was 38.4 Her original pathology from her original breast surgery, which showed invasive poorly differentiated ductal adenocarcinoma, grade 3/3, 3cm across extension of resection margin, lymphovascular invasion not definite; ER neg, NJ neg, [id number] neg. The patient does not recall what chemotherapy she received back in 1989 for triple negative breast cancer. She did not need radiation treatment. She also states that one point her left breast implant had ruptured and it had to be replaced by the plastic surgeon. She decided to transfer her care here, because I previously took care of her who last year. Her PCP has her set up for right sided mammogram and chest xray to be done at [facility] this upcoming Friday. She also happens to mention that 3 months ago, her PCP had started her on Lisinopril, but then she developed an annoying dry cough, and she self discontinued Lisinopril one month ago, but she is still coughing. The patient has a daughter in law Corrie Ybarra who apparently has history of recurrent clots and is on Coumadin and has some sort of Factor deficiency. She has expressed interest in wanting to transfer her care here for now due to intolerable waits at the [place] office. 12/27/2019: Here for annual visit in the setting of history of breast cancer. Her most recent mammogram done on December 30 2018 and that was negative. 12/26/2020 here for interval followup; looking forward to going back to [place] in near future 01/18/2022 here for interval followup; has no complaints 01/17/2023 here for interval followup; now living in [facility] PAST MEDICAL HISTORY: History of sleep apnea, arthritis sciatica, depression, hearing problems PAST SURGICAL HISTORY: Cervical spine surgery adenoidectomy in September 2014 Hysterectomy in 1980 Mastectomy in 1988 left side with reconstruction Spinal anterior fusion surgery stripping of varicose veins in 2011 bone spur removed from foot, cataracts, bilateral carpal tunnel in 1984. Review of Systems: System ReviewAll other systems have been reviewed and are negative for complaint. ConstitutionalNEGATIVE: Fever, Chills, Anorexia, Weight Loss, Malaise EyesNEGATIVE: Blurry Vision, Drainage, Diploplia, Redness, Vision Loss/ Change ENMTNEGATIVE: Nasal Discharge, Nasal Congestion, Ear Pain, Mouth Pain, Throat Pain RespiratoryPOSITIVE: Dry Cough NEGATIVE: Productive Cough, Hemoptysis, Wheezing, Shortness of Breath CardiologyNEGATIVE: Chest Pain, Dyspnea on Exertion, Orthopnea, Palpitations, Syncope GastrointestinalPOSITIVE: Constipation NEGATIVE: Abdominal Pain, Diarrhea, Nausea, Vomiting GenitourinaryNEGATIVE: Discharge, Dysuria, Flank Pain, Frequency, Hematuria MusculoskeletalPOSITIVE: Pain, Stiffness NEGATIVE: Decreased ROM, Swelling, Weakness Comments POSITIVE back pain NeurologicalPOSITIVE: Headache NEGATIVE: Dizziness, Confusion, Seizures, Syncope PsychiatricNEGATIVE: Mood Changes, Anxiety, Hallucinations, Sleep Changes, Suicidal Ideas SkinNEGATIVE: Mass, Pain, Pruritus, Rash, Ulcer EndocrinePOSITIVE: Cold Intolerance NEGATIVE: Heat Intolerance, Sweat, Polyuria, Thirst Hematologic/LymphNEGATIVE : Anemia, Bruising, Easy Bleeding, Night Sweats, Petechiae Allergic/ImmunologicNEGAT VICKEY: Anaphylaxis, Itchy/ Teary Eyes, Itching, (more content not included)... [facility] Clinic Note - Intakeon 01-17 Clinic Note - Intake Patient Visit Information: Visit TypeFollow Up Visit Source of Informationpatient Admission Information: Admission Since Last VisitNo Vital Signs: Temp (degrees C)36 degrees C Temperaturetemporal Heart Rate (beats/min)77 beats per minute Respiration (breaths/min)16 breath per minute BP Systolic (mm Hg)140 mmHg BP Diastolic (mm Hg)86 mmHg BP Mean (mm Hg)104 mmHg Height in cm163.9 centimeter(s) Weight in kg72.4 kilogram(s) BMI (kg/m2)26.9 kg/M2 BSA (m2)1.81 M2 Last 3 Weights & HeightsDate: Weight/Scale Type:Height: 18-Jan-2022 09:4877.7 kg 163.9 cm SpO2 (%)95 % SpO2 Patient Onroom air Pain Screening: Patient States Painno (0) Allergies: Tylenol: Drug, Other, Active Outpatient Medication Profile: * Patient Currently Takes Medications as of 07-Feb-2022 10:12 documented in Structured Notes Motrin 400 mg oral tablet: 1 tab(s) orally every 6 hours doxycycline: 100 milligram(s) orally once a day spironolactone 50 mg oral tablet: 1 tab(s) orally 2 times a day Vitamin D3: 4000 international unit(s) orally once a day tretinoin 0.025% topical cream: Apply topically to affected area once a day (at bedtime) Notification: NotificationsAnnual Screens Due Dates Advanced Directives: Jan 18, 2023 Family Violence: Jan 18, 2023 Depression (Due every 6 months for ONC only; all others use Annual date): Jul 17, 2022 Substance Use - Alcohol: Jan 18, 2023 Substance Use - Drugs: Jan 18, 2023 Nutrition: Jan 18, 2023 Learning: Jan 18, 2023 Travel History: COVID-19 Screening Completedno exposure or symptoms Travel or ExposureNO travel to International locations in the past 30 days Falls: Have you fallen in the last 6 monthsyes Why have you fallenPt missed a step and fell Did you have a fall with injuryyes Explain Injurybroken left knee Do you have a fear of fallingno Do you feel you need assistanceno Is the patient using an assistive deviceno Falls Band/Sticker Applied and Clinician Awareno Electronic Signatures: Iona Ríos (DAMION II) (Signed 17-Jan-2023 13:29) Authored: Patient Visit Information, Vital Signs, Allergies, Outpatient Medication Profile, Notification, Travel History, Falls Last Updated: 17-Jan-2023 13:29 by Iona Ríos (DAMION II) [facility] BILATERAL KNEE 1 OR 2 VIEWSo n 01-07-2023 BILATERAL KNEE 1 OR 2 VIEWS Patient Name: BRIGITTE HIGH STUDY: BILATERAL KNEE; 1 OR 2 VIEWS; Left; 01/07/2023 9:57 am INDICATION: FX S82.009A: Patella fracture. ACCESSION NUMBER(S): [id number] ORDERING CLINICIAN: SANDRA TAYLOR FINDINGS: Bilateral knee films show on the right no fracture, dislocation or destructive lesion. There is mild to moderate degenerative change seen. The left knee patellar fracture is in stable position. It is nondisplaced. There is some filling in at the fracture site. Electronically signed by: SANDRA TAYLOR MD [facility] Established Visit (Orthopaed ic Surgery)on 01-07-2023 Established Visit (Orthopaedic Surgery) Diagnoses/Problems Assessed Patella fracture (822.0) (S82.009A) Right knee pain, unspecified chronicity (719.46) (M25.561) Orders Patella fracture Xray Knee 1 or 2 View; Status:Canceled; Laterality : Left Radiologist to Determine Optimal Study : Y What are the patient's signs and symptoms? : FX Physical Therapy - General Referral Evaluation and Treatment Evaluate AND Treat I ROM brace at 0 to 30 degrees, advance 10 degrees/week Status: Hold For - Scheduling Requested for: [id number] Chief Complaint F/U Subacute left patella fracture XRAYS TODAY History of Present Illness History of Present Illness She is here today for follow-up of her left knee transverse patella fracture. She has been in a knee immobilizer. She complains of no pain. She also had some right knee pain. She fell directly on both knees. The right knee pain has essentially resolved. Review of Systems GENERAL: Negative for malaise, significant weight loss, fever MUSCULOSKELETAL: see HPI NEURO: Negative Physical Exam Left knee Skin is intact without any evidence of erythema ecchymosis or effusion No tenderness to palpation over bony landmarks or around the patella Range of motion is 0 to 70 degrees The knee is stable in varus valgus and anterior posterior stresses Distally neurovascularly intact. Right knee Skin is intact without any evidence of erythema ecchymosis or effusion. No tenderness to palpation over bony landmarks Range of motion is 0 to 120 degrees Knee is stable in varus valgus and anterior posterior stresses She is distally neurovascularly intact. Imaging See dictated report from today. Assessment Left knee transverse patella fracture, healing Right knee pain Osteoarthrosis right knee Plan Discontinue knee immobilizer, begin I ROM brace at 0 to 60 degrees, to advance 10 degrees/week Physical therapy Follow-up in 1 month with x-rays Reassured patient there is no fracture on the right Observe right knee All questions answered . Active Problems Problems Acute bronchitis (466.0) (J20.9) Acute pain of right knee (719.46) (M25.561) Allergic rhinitis (477.9) (J30.9) Arthritis (716.90) (M19.90) Atrophic vulvovaginitis (627.3) (N95.2) Back pain (724.5) (M54.9) Balance problem (781.99) (R26.89) Bowel habit changes (787.99) (R19.4) Cataracts, bilateral (366.9) (H26.9) Cervical radiculopathy, acute (723.4) (M54.12) Chronic rhinitis (472.0) (J31.0) Constipation (564.00) (K59.00) COVID-19 (079.89) (U07.1) Encounter for immunization (V03.89) (Z23) Fall (E888.9) (W19.XXXA) Fall, accidental (E888.9) (W19.XXXA) Finger swelling (729.81) (M79.89) Geographic tongue (529.1) (K14.1) Glossitis (529.0) (K14.0) H/O degenerative disc disease (V13.59) (Z87.39) H/O hysterectomy for benign disease (V88.01) (Z90.710) Hemorrhoids (455.6) (K64.9) Hip pain, bilateral (719.45) (M25.551,M25.552) Inflamed seborrheic keratosis (702.11) (L82.0) Insomnia (780.52) (G47.00) Intercostal pain (786.59) (R07.82) Knee pain, bilateral (719.46) (M25.561,M25.562) Leg weakness (729.89) (R29.898) Lumbar disc disease (722.93) (M51.9) Lumbar radiculopathy, acute (724.4) (M54.16) Lumbar spinal stenosis (724.02) (M48.061) Medication management (V58.69) (Z79.899) Memory loss or impairment (780.93) (R41.3) Neck pain (723.1) (M54.2) Other closed fracture of patella, unspecified laterality, initial encounter (822.0) (S82.099A) Other screening mammogram (V76.12) (Z12.31) Overweight (BMI 25.0-29.9) (278.02) (E66.3) Papular urticaria (698.2) (L28.2) Pneumonia (486) (J18.9) Polyarthropathy, multiple sites (716.50) (M13.0) Postmenopausal osteoporosis (733.01) (M81.0) Postmenopausal vaginal bleeding (627.1) (N95.0) 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) Prolapse urethral mucosa (599.5) (N36.8) Prolapsed internal hemorrhoids (455.2) (K64.8) Sciatica (724.3) (M54.30) Screening for colon cancer (V76.51) (Z12.11) Sleep apnea (780.57) (G47.30) Spider bite (989.5,E905.1) (T63.301A) Spinal stenosis, lumbar (724.02) (M48.061) Urinary hesitancy (788.64) (R39.11) Vitamin D deficiency (268.9) (E55.9) Weight loss (783.21) (R63.4) Word finding difficulty (V40.1) (R47.89) Past Medical History Problems History of Eye, ear, nose, and throat symptom (780.99) (R68.89) History of Greater trochanter fracture (820.20) (S72.113A) Resolved Date: 10 Jul 2020 History of anxiety (V11.8) (Z86.59) Resolved Date: 10 Jul 2020 History of depression (V11.8) (Z86.59) Resolved Date: 17 Jul 2020 Depression History of malignant neoplasm of breast (V10.3) (Z85.3) Resolved Date: 10 Jul 2020 History of vaginal bleeding (V13.29) (Z87.42) Resolved Date: 07 Jan 2022 History of Numbness and tingling (782.0) (R20.0,R20.2) Surgical History Problems History of Cataract surgery bilateral 2014 History of Hysterectomy total 1980 - due AUB and enloarged ovarian cyst History o (more content not included)... [facility] Established Visit (Orthopaed ic Surgery)on 12-10-2022 Established Visit (Orthopaedic Surgery) Diagnoses/Problems Assessed Other closed fracture of patella, unspecified laterality, initial encounter (822.0) (S82.362Z) Chief Complaint Left knee pain Patient to bring xray disc History of Present Illness History of Present Illness This is a 72-year-old female here for. She was in [place] when she fell and landed on both knees. She has swelling and pain initially. Her pain did improve some. She never sought medical attention. She had knee pain. She had persistent pain and went to a hospital back in [place] and had x-rays. She is here for follow-up. She denies any hip or groin pain on the left. She complains of anterior knee pain. She has pain at night. She is able to walk. She denies any locking or catching in the knee. Review of Systems GENERAL: Negative for malaise, significant weight loss, fever MUSCULOSKELETAL: see HPI NEURO: Negative Physical Exam This is a female in no acute distress Left hip motion is painless with flexion, internal and external rotation. Left knee: The skin is intact, the extensor mechanism is intact There is no effusion, erythema or warmth Range of motion: 0-130 degrees Pain with flexion of the knee Exquisite tenderness to palpation about the patella Intact ankle dorsiflexion plantarflexion on the left Imaging Films from an outlying facility dated November 28, 2022 show a nondisplaced transverse patella fracture. No other fractures identified. Assessment Subacute left patella fracture Plan Knee immobilizer at all times only removing this for hygiene purposes. 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 Active Problems Problems Acute bronchitis (466.0) (J20.9) Acute pain of right knee (719.46) (M25.561) Allergic rhinitis (477.9) (J30.9) Arthritis (716.90) (M19.90) Atrophic vulvovaginitis (627.3) (N95.2) Back pain (724.5) (M54.9) Bowel habit changes (787.99) (R19.4) Cataracts, bilateral (366.9) (H26.9) Cervical radiculopathy, acute (723.4) (M54.12) Chronic rhinitis (472.0) (J31.0) Constipation (564.00) (K59.00) COVID-19 (079.89) (U07.1) Encounter for immunization (V03.89) (Z23) Fall (E888.9) (W19.XXXA) Fall, accidental (E888.9) (W19.XXXA) Finger swelling (729.81) (M79.89) Geographic tongue (529.1) (K14.1) Glossitis (529.0) (K14.0) H/O degenerative disc disease (V13.59) (Z87.39) H/O hysterectomy for benign disease (V88.01) (Z90.710) Hemorrhoids (455.6) (K64.9) Hip pain, bilateral (719.45) (M25.551,M25.552) Inflamed seborrheic keratosis (702.11) (L82.0) Insomnia (780.52) (G47.00) Intercostal pain (786.59) (R07.82) Knee pain, bilateral (719.46) (M25.561,M25.562) Leg weakness (729.89) (R29.898) Lumbar disc disease (722.93) (M51.9) Lumbar radiculopathy, acute (724.4) (M54.16) Lumbar spinal stenosis (724.02) (M48.061) Medication management (V58.69) (Z79.899) Memory loss or impairment (780.93) (R41.3) Neck pain (723.1) (M54.2) Other screening mammogram (V76.12) (Z12.31) Overweight (BMI 25.0-29.9) (278.02) (E66.3) Papular urticaria (698.2) (L28.2) Pneumonia (486) (J18.9) Polyarthropathy, multiple sites (716.50) (M13.0) Postmenopausal osteoporosis (733.01) (M81.0) Postmenopausal vaginal bleeding (627.1) (N95.0) 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) Prolapse urethral mucosa (599.5) (N36.8) Prolapsed internal hemorrhoids (455.2) (K64.8) Sciatica (724.3) (M54.30) Screening for colon cancer (V76.51) (Z12.11) Sleep apnea (780.57) (G47.30) Spider bite (989.5,E905.1) (T63.301A) Spinal stenosis, lumbar (724.02) (M48.061) Urinary hesitancy (788.64) (R39.11) Vitamin D deficiency (268.9) (E55.9) Weight loss (783.21) (R63.4) Word finding difficulty (V40.1) (R47.89) Past Medical History Problems History of Eye, ear, nose, and throat symptom (780.99) (R68.89) History of Greater trochanter fracture (820.20) (S72.113A) Resolved Date: 10 Jul 2020 History of anxiety (V11.8) (Z86.59) Resolved Date: 10 Jul 2020 History of depression (V11.8) (Z86.59) Resolved Date: 17 Jul 2020 Depression History of malignant neoplasm of breast (V10.3) (Z85.3) Resolved Date: 10 Jul 2020 History of vaginal bleeding (V13.29) (Z87.42) Resolved Date: 07 Jan 2022 History of Numbness and tingling (782.0) (R20.0,R20.2) Surgical History Problems History of Cataract surgery bilateral 2014 History of Hysterectomy total 1980 - due AUB and enloarged ovarian cyst History of Tonsillectomy with adenoidectomy uvula also removed History of Tubal ligation History of Varicose vein ligation Family History Mother Family history of Family history of hyperlipidemia (V18.19) (Z83.438) History of quadruple bypass Family history of Overweight Father Family history of Family history of hypertension (V17.49) (Z82.49) Social History (more content not included)... [facility] US THYROIDon 10-18-2022 US THYROID EXAMINATION: US THYR OID HISTORY: Disorder of spinal region COMPARISON: No relevant comparison available. FINDINGS: RIGHT LOBE: Homogeneous echotexture and contains an incidental 4 mm colloid cyst. Lobe size: 3.5 x 1.7 x 1.4 cm. LEFT LOBE: Homogeneous echotexture and contains a 14 x 12 x 7 mm TR 3 nodule. Lobe size: 3.7 x 1.2 x 1.3 cm ISTHMUS: Normal size and echotexture. Thickness: 3 mm IMPRESSION: 1. Left lobe contains a 14 mm TR 3 nodule. Follow-up in one year is recommended. TR3 (mildly suspicious): > 1.5 cm, follow-up ultrasound in 1, 3, and 5 years. > 2.5 cm, fine needle aspiration. Electronically authenticated by: LUPIS OZUNA Date: 2022-10-18 14:45 Normal [facility] INSULINon 08-19-2022 Insulin 4.6 uIU/mL Normal 2.6-24.9 [facility] Comment on above: Performed By: #### I NSULIN #### [facility] [address] [place] [address] Dr. Destini Horvath XR RIBS LT PA George 3 XR RIBS LT PA CH EXAMINATION: XR RIBS LT PA CH HISTORY: Rib pain COMPARISON: No relevant comparison available. FINDINGS: LUNGS: No significant pulmonary parenchymal abnormalities. PLEURA: No pneumothorax, effusion, or pleural thickening. MEDIASTINUM: No visible mass or adenopathy. CARDIAC: No cardiomegaly or cardiac silhouette abnormality. RIBS: No acute rib fracture OTHER: Mild to moderate spondylosis. Levocurvature of the thoracolumbar spine. Cervical fusion hardware. IMPRESSION: Clear lungs No definite rib fracture Electronically authenticated by: ILDEFONSO HO Date: 2022-08-19 06:59 Normal [facility] CBC AUTO DIFFon 08-17-2022 BASO # 0.1 103/ul Normal 0.0-0.1 [facility] Comment on above: Performed By: #### C BC #### [facility] [address] [place] [address] Dr. Destini Horvath Basophils/100 WBC (Bld) 1.1 % Normal 0.2-2.0 [facility] Comment on above: Performed By: #### C BC #### [facility] [address] [place] [address] Dr. Destini Horvath EO # 0.2 103/ul Normal 0.0-0.7 [facility] Comment on above: Performed By: #### C BC #### [facility] [address] [place] [address] Dr. Destini Horvath Eosinophils/100 WBC (Bld) 2.9 % Normal 0.9-7.0 [facility] Comment on above: Performed By: #### C BC #### [facility] [address] [place] [address] Dr. Destini Horvath Erythrocyte distribution width (RBC) [Ratio] 13.4 % Normal 11.0-15.0 [facility] Comment on above: Performed By: #### C BC #### [facility] [address] [place] [address] Dr. Destini Horvath Hematocrit (Bld) [Volume fraction] 35.2 % Critically low 36.0-48.0 [facility] Comment on above: Performed By: #### C BC #### [facility] [address] [place] [address] Dr. Destini Horvath Hemoglobin (Bld) [Mass/Vol] 12.4 g/dL Normal 12.0-16.0 [facility] [facility] Comment on above: Performed By: #### C BC #### [facility] [address] [place] [address] Dr. Destini Horvath IG # 0.01 10e3/ul Normal 0.00-0.03 [facility] Comment on above: Performed By: #### C BC #### [facility] [address] [place] [address] Dr. Destini Horvath IG % 0.2 % Normal 0.0-0.5 [facility] Comment on above: Performed By: #### C BC #### [facility] [address] [place] [address] Dr. Destini Horvath LYMPH # 2.5 103/ul Normal 1.2-3.8 [facility] Comment on above: Performed By: #### C BC #### [facility] [address] [place] [address] Dr. Destini Horvath Lymphocytes/100 WBC (Bld) 45.6 % Normal 20.5-60.0 [facility] Comment on above: Performed By: #### C BC #### [facility] [address] [place] [address] Dr. Destini Horvath MANUAL DIFF REQ NO Normal [facility] Comment on above: Performed By: #### C BC #### [facility] [address] [place] [address] Dr. Destini Horvath MCH (RBC) [Entitic mass] 30.1 pg Normal 26.7-34.0 [facility] Comment on above: Performed By: #### C BC #### [facility] [address] [place] [address] Dr. Destini Horvath MCHC (RBC) [Mass/Vol] 35.2 g/dL Normal 29.9-35.2 [facility] Comment on above: Performed By: #### C BC #### [facility] [address] [place] [address] Dr. Destini Horvath MCV (RBC) [Entitic vol] 85.4 fL Normal 81.0-99.0 [facility] Comment on above: Performed By: #### C BC #### [facility] [address] [place] [address] Dr. Destini Horvath MONO # 0.5 103/ul Normal 0.3-0.8 [facility] Comment on above: Performed By: #### C BC #### [facility] [address] [place] [address] Dr. Destini Horvath Monocytes/100 WBC (Bld) 8.3 % Normal 1.7-12.0 [facility] Comment on above: Performed By: #### C BC #### [facility] [address] [place] [address] Dr. Destini Horvath NEUT # 2.3 103/ul Normal 1.4-6.5 [facility] Comment on above: Performed By: #### C BC #### [facility] [address] [place] [address] Dr. Destini Horvath Neutrophils/100 WBC (Bld) 41.9 % Critically low 43.0-75.0 [facility] Comment on above: Performed By: #### C BC #### [facility] [address] [place] [address] Dr. Destini Horvath Platelet mean volume (Bld) [Entitic vol] 9.6 fL Normal 9.5-13.5 [facility] Comment on above: Performed By: #### C BC #### [facility] [address] [address] [address] Destini Horvath PLT 262 103/ul Normal 150-450 [facility] Comment on above: Performed By: #### C BC #### [facility] [address] [address] [address] Destini Horvath RBC 4.12 106/ul Critically low 4.20-5.[address] [facility] Comment on above: Performed By: #### C BC #### [facility] [address] [address] [address] Destini Horvath WBC 5.6 103/ul Normal 4.0-11.0 [facility] Comment on above: Performed By: #### C BC #### [facility] [address] [place] [address] Dr. Destini Horvath FREE THYROXINE INDEX T7on FTI 2.14 Normal 1.30-4.50 [facility] Comment on above: Performed By: #### T SH, LIPID, CMP, T7 #### [facility] [address] [place] [address] Dr. Destini Horvath T3U 34.0 % Normal 30.0-39.0 [facility] Comment on above: Performed By: #### T SH, LIPID, CMP, T7 #### [facility] [address] [place] [address] Dr. Destini Horvath T4 [Mass/Vol] 6.30 ug/dL Normal 4.80-13.90 [facility] Comment on above: Performed By: #### T SH, LIPID, CMP, T7 #### [facility] [address] [place] [address] Dr. Destini Horvath GLYCOHEMOGLOBIN A1Con 2022 ADA RECOMMENDATION SEE BELOW Normal [facility] Comment on above: Result Comment: ADA RECOMMENDED LIMIT 4.0 - 6.0 ADA THERAPEUTIC TARGET < 7.0 ACTION SUGGESTED > 7.0 Performed By: #### U RCX #### [facility] [address] [address] [address] Destini Horvath Glucose [Mass/Vol] 117 mg/dL Normal [facility] Comment on above: Performed By: #### U RCX #### [facility] [address] [place] [address] Dr. Destini Horvath HbA1c (Bld) [Mass fraction] 5.7 % Normal 4.5-6.2 [facility] Comment on above: Performed By: #### U RCX #### [facility] [address] [place] [address] Dr. Destini Horvath IRONon 08-17-2022 Iron [Mass/Vol] 39.0 ug/dL Critically low 50.0-170.0 [facility] Comment on above: Performed By: #### U RCX #### [facility] [address] [place] [address] Dr. Destini Horvath LIPID PROFILEon 08-17-2022 CHOL-HDL RATIO NORM SEE BELOW Normal [facility] Comment on above: Result Comment: 3.3 - 4.4 LOW RISK 4.4 - 7.1 AVERAGE RISK 7.1 - 11.0 MODERATE RISK >11.0 HIGH RISK Performed By: #### T SH, LIPID, CMP, T7 #### [facility] [address] [place] [address] Dr. Destini Horvath Cholesterol [Mass/Vol] 191 mg/dL Normal <=200 [facility] Comment on above: Performed By: #### T SH, LIPID, CMP, T7 #### [facility] [address] [place] [address] Dr. Destini Horvath Cholesterol in HDL [Mass/Vol] 109 mg/dL Critically high 40-60 [facility] Comment on above: Performed By: #### T SH, LIPID, CMP, T7 #### [facility] [address] [place] [address] Dr. Destini Horvath Cholesterol in LDL [Mass/Vol] 69.2 mg/dL Normal [facility] Comment on above: Performed By: #### T SH, LIPID, CMP, T7 #### [facility] [address] [place] [address] Dr. Destini Horvath Cholesterol.total/ Cholesterol in HDL [Mass ratio] 1.8 {ratio} Normal [facility] Comment on above: Performed By: #### T SH, LIPID, CMP, T7 #### [facility] [address] [address] [address] Destini Horvath HDL NORMAL > or = 60 mg/dl - LO W CARDIOVASCULAR RISK <40 mg/dl - HIGH CARDIOVASCULAR RISK Normal [facility] Comment on above: Performed By: #### T SH, LIPID, CMP, T7 #### [facility] [address] [address] [address] Destini Horvath LDL CALC NORMAL SEE BELOW Normal [facility] Comment on above: Result Comment: <100 mg/dl OPTIMAL 100 - 129 mg/dl NEAR OR ABOVE OPTIMAL 130 - 159 mg/dl BORDERLINE HIGH 160 - 189 mg/dl HIGH >190 mg/dl VERY HIGH Performed By: #### T SH, LIPID, CMP, T7 #### [facility] [address] [address] [address] Destini Horvath Triglyceride [Mass/Vol] 64 mg/dL Normal <=150 [facility] Comment on above: Performed By: #### T SH, LIPID, CMP, T7 #### [facility] [address] [place] [address] Dr. Destini Horvath VLDL CALC 12.8 mg/dL Normal [facility] Comment on above: Performed By: #### T SH, LIPID, CMP, T7 #### [facility] [address] [place] [address] Dr. Destini Horvath PROF 14(COMP METB)on 023 Albumin [Mass/Vol] 3.6 g/dL Normal 3.4-5.0 [facility] Comment on above: Performed By: #### T SH, LIPID, CMP, T7 #### [facility] [address] [place] [address] Dr. Destini Horvath Albumin/Globulin [Mass ratio] 1.0 {ratio} Normal [facility] Comment on above: Performed By: #### T SH, LIPID, CMP, T7 #### [facility] [address] [address] [address] Destini Horvath ALP [Catalytic activity/Vol] 101 U/L Normal 46-116 [facility] Comment on above: Performed By: #### T SH, LIPID, CMP, T7 #### [facility] [address] [place] [address] Dr. Destini Horvath ALT [Catalytic activity/Vol] 27 U/L Normal 14-59 [facility] Comment on above: Performed By: #### T SH, LIPID, CMP, T7 #### [facility] [address] [place] [address] Dr. Destini Horvath Anion gap [Moles/Vol] 15.0 mmol/L Normal [facility] Comment on above: Performed By: #### T SH, LIPID, CMP, T7 #### [facility] [address] [place] [address] Dr. Destini Horvath AST [Catalytic activity/Vol] 22 U/L Normal 15-37 [facility] Comment on above: Performed By: #### T SH, LIPID, CMP, T7 #### [facility] [address] [place] [address] Dr. Destini Horvath Bilirubin [Mass/Vol] 0.3 mg/dL Normal 0.2-1.0 [facility] Comment on above: Performed By: #### T SH, LIPID, CMP, T7 #### [facility] [address] [place] [address] Dr. Destini Horvath Calcium [Mass/Vol] 9.2 mg/dL Normal 8.5-10.1 [facility] Comment on above: Performed By: #### T SH, LIPID, CMP, T7 #### [facility] [address] [place] [address] Dr. Destini Horvath Chloride [Moles/Vol] 108 mmol/L Critically high 98-107 [facility] Comment on above: Performed By: #### T SH, LIPID, CMP, T7 #### [facility] [address] [place] [address] Dr. Destini Horvath CO2 [Moles/Vol] 23.7 mmol/L Normal 21.0-32.0 [facility] Comment on above: Performed By: #### T SH, LIPID, CMP, T7 #### [facility] [address] [address] [address] Destini Horvath Creatinine [Mass/Vol] 0.59 mg/dL Normal 0.55-1.02 [facility] Comment on above: Performed By: #### T SH, LIPID, CMP, T7 #### [facility] [address] [address] [address] Destini Horvath EGFR-AF PUERTO RICAN >60 Normal >=60 [facility] Comment on above: Performed By: #### T SH, LIPID, CMP, T7 #### [facility] [address] [address] [address] Destini Horvath EGFR-NON AF PUERTO RICAN >60 Normal >=60 [facility] Comment on above: Performed By: #### T SH, LIPID, CMP, T7 #### [facility] [address] [address] [address] Destini Horvath Globulin (S) [Mass/Vol] 3.7 g/dL Normal [facility] Comment on above: Performed By: #### T SH, LIPID, CMP, T7 #### [facility] [address] [address] [address] Destini Horvath Glucose [Mass/Vol] 91 mg/dL Normal 74-106 [facility] Comment on above: Performed By: #### T SH, LIPID, CMP, T7 #### [facility] [address] [address] [address] Destini Horvath Potassium [Moles/Vol] 3.7 mmol/L Normal 3.5-5.1 [facility] Comment on above: Performed By: #### T SH, LIPID, CMP, T7 #### [facility] [address] [address] [address] Destini Horvath Protein [Mass/Vol] 7.3 g/dL Normal 6.4-8.2 [facility] Comment on above: Performed By: #### T SH, LIPID, CMP, T7 #### [facility] [address] [place] [address] Dr. Destini Horvath Sodium [Moles/Vol] 143 mmol/L Normal 136-145 [facility] Comment on above: Performed By: #### T SH, LIPID, CMP, T7 #### [facility] [address] [address] [address] Destini Horvath Urea nitrogen [Mass/Vol] 17.0 mg/dL Normal 7.0-18.0 [facility] Comment on above: Performed By: #### T SH, LIPID, CMP, T7 #### [facility] [address] [address] [address] Destini Horvath Urea nitrogen/Creatinin e [Mass ratio] 28.8 mg/mg Normal [facility] Comment on above: Performed By: #### T SH, LIPID, CMP, T7 #### [facility] [address] [place] [address] Dr. Destini Horvath TSHon 08-17-2022 TSH 2.888 uIU/mL Normal 0.358-3.740 [facility] Comment on above: Performed By: #### T SH, LIPID, CMP, T7 #### [facility] [address] [place] [address] Dr. Destini Horvath Covid-19 PCR ([place])on SARS-CoV-2 (COVID-19) RNA MARY+probe Ql (Unsp spec) Not detected Normal NOT DETECTED [facility] Comment on above: Result Comment: When diagnostic testing is negative, the possibility of a false negative should be considered in the context of a patient's recent exposures and the presence of clinical signs and symptoms consistent with SARS-CoV-2. This test is not yet approved or cleared by the [place] FDA. When there are no FDA-approved or cleared tests available, and other criteria are met, FDA can make tests available under an emergency access mechanism called an Emergency Use Authorization (EUA). The EUA for this test is supported by the [place] of Health and Human Service's declaration that circumstances exist to justify the emergency use of in vitro diagnostics for the detection and/or diagnosis of the virus that causes COVID-19. This EUA will remain in effect for the duration of the COVID-19 declaration justifying emergency of IVDs, unless it is terminated or revoked by the FDA (after which the test may no longer be used). Performed By: #### C VDTBH #### [facility] [address] [place] [address] Dr. Destini Horvath INFLUENZA A AND B [facility] 07-05 [facility] SEE BELOW Normal [facility] Comment on above: Result Comment: Nega tive for Flu A protein angiten. Infection due to Flu A cannot be ruled out. Flu A angiten in the sample may be below the detection limit of the test. Performed By: #### U RCX #### [facility] [address] [place] [address] Dr. Destini Horvath INFLUBNEG SEE BELOW Normal [facility] Comment on above: Result Comment: Nega tive for Flu B protein antigen. Infection due to Flu B cannot be ruled out. Flu B antigen in the sample may be below the detection limit of the test. Performed By: #### U RCX #### [facility] [address] [place] [address] Dr. Destini Horvath INFLUENZA A AG Negative Normal NEGATIVE SEE COMMENT [facility] Comment on above: Performed By: #### U RCX #### [facility] [address] [place] [address] Dr. Destini Horvath INFLUENZA B AG Negative Normal NEGATIVE SEE COMMENT [facility] Comment on above: Performed By: #### U RCX #### [facility] [address] [place] [address] Dr. Destini Horvath INTERNAL CONTROLS Within Normal Limits Normal Wi thin Normal Limits [facility] Comment on above: Performed By: #### U RCX #### [facility] [address] [place] [address] Dr. Destini Horvath CULTURE URINEon 06-30-2022 CULTURE URINE Isolate 1 Escherichia coli >100,000 cfu/ml of ORGANISM 1 Escherichia coli ANTIBIOTIC M.I.C RX STATUS Ampicillin 4 S F Ampicillin/Sulbactam <=2 S F Piperacillin/Tazobactam <=4 S F Cefazolin <=4 S F Ceftazidime <=1 S F Ceftriaxone <=1 S F Ertapenem <=0.5 S F Imipenem <=0.25 S F Amikacin <=2 S F Gentamicin <=1 S F Tobramycin <=1 S F Ciprofloxacin <=0.25 S F Levofloxacin <=0.12 S F Nitrofurantoin <=16 S F Trimethoprim/Sulfamethoxa zole <=20 S F Normal [facility] Comment on above: Performed By: #### U RCX #### [facility] [address] [place] [address] Dr. Destini Horvath UA RANDOM W/MICROSCOPICon BACTERIA LARGE Abnormal NONE SEEN [facility] Comment on above: Performed By: #### U RCX #### [facility] [address] [place] [address] Dr. Destini Horvath Bilirubin Ql (U) Negative Normal NEGATIVE [facility] Comment on above: Performed By: #### U RCX #### [facility] [address] [place] [address] Dr. Destini Horvath CAST NONE SEEN Normal NONE SEEN [facility] Comment on above: Performed By: #### U RCX #### [facility] [address] [place] [address] Dr. Destini Horvath Clarity (U) SL CLOUDY Abnormal CLEAR [facility] Comment on above: Performed By: #### U RCX #### [facility] [address] [place] [address] Dr. Destini Horvath Color (U) LT. YELLOW Normal YELLOW [facility] Comment on above: Performed By: #### U RCX #### [facility] [address] [place] [address] Dr. Destini Horvath Crystals LM Nom (Urine sed) NONE SEEN Normal NONE SEEN [facility] Comment on above: Performed By: #### U RCX #### [facility] [address] [place] [address] Dr. Destini Horvath Epithelial cells LM Ql (Urine sed) FEW Abnormal NONE SEEN /RARE [facility] Comment on above: Performed By: #### U RCX #### [facility] [address] [place] [address] Dr. Destini Horvath Glucose Ql (U) Negative Normal NEGATIVE [facility] Comment on above: Performed By: #### U RCX #### [facility] [address] [place] [address] Dr. Destini Horvath Hemoglobin Ql (U) TRACE-INTACT Abnormal NEGATIVE [facility] Comment on above: Performed By: #### U RCX #### [facility] [address] [address] [address] Destini Horvath Ketones Ql (U) Negative Normal NEGATIVE [facility] Comment on above: Performed By: #### U RCX #### [facility] [address] [address] [address] Destini Horvath LEUKOCYTES MODERATE Abnormal NEGATIVE [facility] Comment on above: Performed By: #### U RCX #### [facility] [address] [place] [address] Dr. Destini Horvath MUCOUS NONE SEEN Normal NONE SEEN [facility] Comment on above: Performed By: #### U RCX #### [facility] [address] [place] [address] Dr. Destini Horvath Nitrite Ql (U) Negative Normal NEGATIVE [facility] Comment on above: Performed By: #### U RCX #### [facility] [address] [place] [address] Dr. Destini Horvath pH (U) 5.5 [pH] Normal 5-9 [facility] Comment on above: Performed By: #### U RCX #### [facility] [address] [place] [address] Dr. Destini Horvath RBC 2-5 Abnormal 0-2 [facility] Comment on above: Performed By: #### U RCX #### [facility] [address] [address] [address] Destini Horvath SPEC GRAVITY 1.015 Normal 1.005-<=1.02 5 [facility] Comment on above: Performed By: #### U RCX #### [facility] [address] [place] [address] Dr. Destini Horvath UA PROTEIN Negative Normal NEGATIVE/ TRACE [facility] Comment on above: Performed By: #### U RCX #### [facility] [address] [place], [place] [address] Dr. Destini Horvath Urobilinogen Qn (U) 0.2 {Abner'U}/dL Normal 0.2 - 1.0 [facility] Comment on above: Performed By: #### U RCX #### [facility] [address] [place], [place] [address] Dr. Destini Horvath WBC (U) [#/Vol] /uL Abnormal NONE SEEN [facility] Comment on above: Performed By: #### U RCX #### [facility] [address] [place], [place] [address] Dr. Destini Horvath CBCon 04-29-2022 Erythrocyte distribution width (RBC) [Ratio] 14.0 % Normal 11.5 - 14.5 [facility] Comment on above: Performed By: #### C BC #### [address] [id number] Hematocrit (Bld) [Volume fraction] 41.0 % Normal 36.0 - 46.0 [facility] Comment on above: Performed By: #### C BC #### [address] [id number] Hemoglobin (Bld) [Mass/Vol] 12.9 g/dL Normal 12.0 - 16.0 [facility] Comment on above: Performed By: #### C BC #### [address] [id number] MCHC (RBC) [Mass/Vol] 31.5 g/dL Low 32.0 - 36.0 [facility] Comment on above: Performed By: #### C BC #### [address] [id number] MCV (RBC) [Entitic vol] 97 fL Normal 80 - 100 [facility] Comment on above: Performed By: #### C BC #### [address] [id number] Platelets (Bld) [#/Vol] 268 10*3/uL Normal 150 - 450 [facility] Comment on above: Performed By: #### C BC #### [address] [id number] RBC 4.24 x10E12/L Normal 4.00 - 5.20 [facility] Comment on above: Performed By: #### C BC #### [address] [id number] WBC (Bld) [#/Vol] 6.0 10*3/uL Normal 4.4 - 11.3 [facility] Comment on above: Performed By: #### C BC #### [address] [id number] COMPREHENSIVE PANELon 2021 Albumin [Mass/Vol] 4.2 g/dL Normal 3.4 - 5.0 [facility] Comment on above: Performed By: #### C MP #### [address] [id number] ALP [Catalytic activity/Vol] 71 U/L Normal 33 - 136 [facility] Comment on above: Performed By: #### C MP #### [address] [id number] ALT [Catalytic activity/Vol] 23 U/L Normal 7 - 45 [facility] Comment on above: Result Comment: Luanne ents treated with Sulfasalazine may generate falsely decreased results for ALT. Performed By: #### C MP #### [address] [id number] Anion gap [Moles/Vol] 13 mmol/L Normal 10 - 20 [facility] Comment on above: Performed By: #### C MP #### [address] [id number] AST [Catalytic activity/Vol] 24 U/L Normal 9 - 39 [facility] Comment on above: Performed By: #### C MP #### [address] [id number] Bilirubin [Mass/Vol] 0.4 mg/dL Normal 0.0 - 1.2 [facility] Comment on above: Performed By: #### C MP #### [address] [id number] Calcium [Mass/Vol] 9.4 mg/dL Normal 8.6 - 10.3 [facility] Comment on above: Performed By: #### C MP #### [address] [id number] Chloride [Moles/Vol] 106 mmol/L Normal 98 - 107 [facility] Comment on above: Performed By: #### C MP #### [address] [id number] Creatinine [Mass/Vol] 0.69 mg/dL Normal 0.50 - 1.05 [facility] Comment on above: Performed By: #### C MP #### [address] [id number] eGFR FEMALE >90 Normal >90 [facility] Comment on above: Result Comment: CALC ULATIONS OF ESTIMATED GFR ARE PERFORMED USING THE 2020 CKD-EPI STUDY REFIT EQUATION WITHOUT THE RACE VARIABLE FOR THE IDMS-TRACEABLE CREATININE METHODS. https://jasn.asnjournals.org/content//ASN.123779729 8 Performed By: #### C MP #### [address] [id number] Glucose [Mass/Vol] 79 mg/dL Normal 74 - 99 [facility] Comment on above: Performed By: #### C MP #### [address] [id number] HCO3 (Bld) [Moles/Vol] 25 mmol/L Normal 21 - 32 [facility] Comment on above: Performed By: #### C MP #### [address] [id number] Potassium [Moles/Vol] 4.1 mmol/L Normal 3.5 - 5.3 [facility] Comment on above: Performed By: #### C MP #### [address] [id number] Protein [Mass/Vol] 7.4 g/dL Normal 6.4 - 8.2 [facility] Comment on above: Performed By: #### C MP #### [address] [id number] Sodium [Moles/Vol] 140 mmol/L Normal 136 - 145 [facility] Comment on above: Performed By: #### C MP #### [address] [id number] Urea nitrogen [Mass/Vol] 12 mg/dL Normal 6 - 23 [facility] Comment on above: Performed By: #### C MP #### [address] [id number] LIPID PANEL (CORONARY RISK 2 )on 04-29-2022 Cholesterol [Mass/Vol] 198 mg/dL Normal 0 - 199 [facility] Comment on above: Result Comment: . AGE DESIRABLE BORDERLINE HIGH HIGH 0-19 Y 0 - 169 170 - 199 >/= 200 20-24 Y 0 - 189 190 - 224 >/= 225 >24 Y 0 - 199 200 - 239 >/= 240 All ranges are based on fasting samples. Specific therapeutic targets will vary based on patient-specific cardiac risk. . Pediatric guidelines reference:Pediatrics 2011, 128(S5). Adult guidelines reference: NCEP ATPIII Guidelines, LUDIVINA 2001, 258:2486-97 . Venipuncture immediately after or during the administration of Metamizole may lead to falsely low results. Testing should be performed immediately prior to Metamizole dosing. Performed By: #### L IPID #### [address] [id number] Cholesterol in HDL [Mass/Vol] 89.0 mg/dL Normal [facility] Comment on above: Result Comment: . AGE VERY LOW LOW NORMAL HIGH 0-19 Y < 35 < 40 40-45 ---- 20-24 Y ---- < 40 >45 ---- >24 Y ---- < 40 40-60 >60 . Performed By: #### L IPID #### [address] [id number] Cholesterol in LDL [Mass/Vol] 87 mg/dL Normal 0 - 99 [facility] Comment on above: Result Comment: . NEAR BORD AGE DESIRABLE OPTIMAL HIGH HIGH VERY HIGH 0-19 Y 0 - 109 --- 110-129 >/= 130 ---- 20-24 Y 0 - 119 --- 120-159 >/= 160 ---- >24 Y 0 - 99 100-129 130-159 160-189 >/=190 . Performed By: #### L IPID #### [address] [id number] Cholesterol in VLDL [Mass/Vol] 22 mg/dL Normal 0 - 40 [facility] Comment on above: Performed By: #### L IPID #### [address] [id number] Cholesterol.total/ Cholesterol in HDL [Mass ratio] 2.2 {ratio} Normal [facility] Comment on above: Result Comment: REF VALUES DESIRABLE < 3.4 HIGH RISK > 5.0 Performed By: #### L IPID #### [address] [id number] Triglyceride [Mass/Vol] 109 mg/dL Normal 0 - 149 [facility] Comment on above: Result Comment: . AGE DESIRABLE BORDERLINE HIGH HIGH VERY HIGH 0 D-90 D 19 - 174 ---- ---- ---- 91 D- 9 Y 0 - 74 75 - 99 >/= 100 ---- 10-19 Y 0 - 89 90 - 129 >/= 130 ---- 20-24 Y 0 - 114 115 - 149 >/= 150 ---- >24 Y 0 - 149 150 - 199 200- 499 >/= 500 . Venipuncture immediately after or during the administration of Metamizole may lead to falsely low results. Testing should be performed immediately prior to Metamizole dosing. Performed By: #### L IPID #### [address] [id number] Laboratory - Chemistry and C hemistry - challengeon 04-29-2022 Albumin BCP dye [Mass/Vol] 4.2 g/dL 3.4 - 5.0 MQ-ODBR-Mnwe 2535A Work Phone: ALP [Catalytic activity/Vol] 71 U/L 33 - 136 RC-ULSJ-Skwq 2535A Work Phone: ALT With P-5'-P [Catalytic activity/Vol] 23 U/L 7 - 45 ZY-UOLA-Zneb 2535A Work Phone: Comment on above: Patients treated wit h Sulfasalazine may generate falsely decreased results for ALT. Anion gap [Moles/Vol] 13 mmol/L 10 - 20 XX-DIBD-Cznb 2535A Work Phone: AST With P-5'-P [Catalytic activity/Vol] 24 U/L 9 - 39 PF-WBKH-Rorl 2535A Work Phone: Bilirubin [Mass/Vol] 0.4 mg/dL 0.0 - 1.2 DW-KPKX-Zzik 2535A Work Phone: Calcium [Mass/Vol] 9.4 mg/dL 8.6 - 10.3 MP-WSP C-[place] Óscar Work Phone: Chloride [Moles/Vol] 106 mmol/L 98 - 107 GX-IVTL-Itfm 2535A Work Phone: CO2 [Moles/Vol] 25 mmol/L 21 - 32 MP-WSPC-A von Óscar Work Phone: Creatinine [Mass/Vol] 0.69 mg/dL See Below JI-LZUG-Eqsi 2535A Work Phone: Comment on above: Reference Range: 0.5 0 - 1.05 Glucose [Mass/Vol] 79 mg/dL 74 - 99 MP-WSP C-[place] 2535A Work Phone: Potassium [Moles/Vol] 4.1 mmol/L 3.5 - 5.3 HU-BGSC-Nlvh 2535A Work Phone: Protein [Mass/Vol] 7.4 g/dL 6.4 - 8.2 MP-WSP C-[place] Óscar5A Work Phone: Sodium [Moles/Vol] 140 mmol/L 136 - 145 MP-WSP C-[place] 2535A Work Phone: Urea nitrogen [Mass/Vol] 12 mg/dL 6 - 23 LQ-MJUF-Xzax 2535A Work Phone: Laboratory - Hematology and Cell countson 04-29-2022 Erythrocyte distribution width (RBC) [Ratio] 14.0 % See Below CY-EZOP-Mcvp 2535A Work Phone: Comment on above: Reference Range: 11. 5 - 14.5 Hematocrit (Bld) [Volume fraction] 41.0 % See Below CW-XFHT-Awpu 2535A Work Phone: Comment on above: Reference Range: 36. 0 - 46.0 Hemoglobin (Bld) [Mass/Vol] 12.9 g/dL See Below OD-XQBH-Dcct 2535A Work Phone: Comment on above: Reference Range: 12. 0 - 16.0 MCHC (RBC) [Mass/Vol] 31.5 g/dL below low threshold See Below PM-OCME-Dpzn 2535A Work Phone: Comment on above: Reference Range: 32. 0 - 36.0 MCV (RBC) [Entitic vol] 97 fL 80 - 100 OB-KYXO-Sqtm 2535A Work Phone: Platelets (Bld) [#/Vol] 268 10*3/uL 150 - 450 NJ-QBHC-Ccga 2535A Work Phone: RBC (Bld) [#/Vol] 4.24 {x10E12/L} See Below MP -WSPC-Laila 2535A Work Phone: Comment on above: Reference Range: 4.0 0 - 5.20 WBC (Bld) [#/Vol] 6.0 10*3/uL 4.4 - 11.3 MP-WSP C-Laila 6587I Work Phone: Lipid Panelon 04-29-2022 Cholesterol [Mass/Vol] 198 mg/dL 0 - 199 CM-YTYE-Hcgf 5968H Work Phone: Comment on above: . AGE DESIRABLE BORD CARMELO HIGH HIGH 0-19 Y 0 - 169 170 - 199 >/= 200 20-24 Y 0 - 189 190 - 224 >/= 225 >24 Y 0 - 199 200 - 239 >/= 240 All ranges are based on fasting samples. Specific therapeutic targets will vary based on patient-specific cardiac risk.. Pediatric guidelines reference:Pediatrics 2011, 128(S5). Adult guidelines reference: NCEP ATPIII Guidelines, LUDIVINA 2001, 258:2486-97. Venipuncture immediately after or during the administration of Metamizole may lead to falsely low results. Testing should be performed immediately prior to Metamizole dosing. Cholesterol in HDL [Mass/Vol] 89.0 mg/dL GQ-KGCA-Mfih 4758Z Work Phone: Comment on above: . AGE VERY LOW LOW N ORMAL HIGH 0-19 Y < 35 < 40 40-45 ---- 20- 24 Y ---- < 40 >45 ---- >24 Y ---- < 40 40-60 >60. Cholesterol in LDL [Mass/Vol] 87 mg/dL 0 - 99 TY-AOMX-Scxn 6555T Work Phone: Comment on above: . NEAR BORD AGE CHERRIE RABLE OPTIMAL HIGH HIGH VERY HIGH 0-19 Y 0 - 109 --- 110-129 >/= 130 ---- 20-24 Y 0 - 119 --- 120-159 >/= 160 ---- >24 Y 0 - 99 100-129 130-159 160-189 >/=190. Cholesterol.total/ Cholesterol in HDL [Mass ratio] 2.2 {ratio} XX-SICQ-Ajxy 1876O Work Phone: Comment on above: REF VALUESDESIRABLE < 3.4HIGH RISK > 5.0 Triglyceride [Mass/Vol] 109 mg/dL 0 - 149 BT-QIAO-Caqw 3039W Work Phone: Comment on above: . AGE DESIRABLE BORD CARMELO HIGH HIGH VERY HIGH 0 D-90 D 19 - 174 ---- ---- ----91 D- 9 Y 0 - 74 75 - 99 >/= 100 ---- 10-19 Y 0 - 89 90 - 129 >/= 130 ---- 20-24 Y 0 - 114 115 - 149 >/= 150 ---- >24 Y 0 - 149 150 - 199 200- 499 >/= 500. Venipuncture immediately after or during the administration of Metamizole may lead to falsely low results. Testing should be performed immediately prior to Metamizole dosing. Lipid Panel 22 mg/dL 0 - 40 JR-VTUU-Yqme 9045G Work Phone: Medicare Annual Wellness Vis iton 04-29-2022 Medicare Annual Wellness Visit *Chief Complaint flu 22 covid x 3 shingrix due prevnar + pneumovax + pap age mammogram 11/16 dxa declines colonoscopy 17 5 year [facility] in 2 weeks bmi 28 fall risk 2021 adv dir y depression screen 2021 eye exam 22 Adult Risk Screening There are no spiritual/cultural practices/values/needs that are important to know Initial Fall Risk Screening: BRIGITTE has fallen in the last 6 months. She has fallen due to Pt reports occasional mechanical falls d/t tripping over feet. Her fall did not result in injury. BRIGITTE does not have a fear of falling. She does not need assistance with sitting, standing or walking. Does not need assistance walking in her home. She does not need assistance in an unfamiliar setting. The patient is not using an assistive device. Pain Scale: On a scale of 0 to 10, the patient rates the pain at 2. Please identify location of pain: Generalized pain. Pain Quality: aching. Living Will. Living Will: Living will on file. Healthcare POA: Health care proxy on file. Tobacco Screening: BRIGITTE does not use tobacco. Domestic Violence Screen: Does not feel threatened or abused physically, emotionally or sexually. Do you feel UNSAFE? The patient feels safe in the home. Depression/Suicide Screening: During the past 2 weeks, the patient has not felt down, depressed or hopeless. During the past 2 weeks, the patient has not felt little interest or pleasure in doing things. Single alcohol screening question: In the past year the patient has had 5 or more drinks (men) or 4 or more drinks (women)? 0 time(s). Single substance abuse screening question: In the past year the patient has used a recreational drug or used a prescription drug for non-medical reasons? 0 time(s). Procedure or Sedation Areas: patient has not had alcohol, recreational drugs, or prescription drugs for non-medical reasons this morning. Nutrition Screening: In the past month, there was not a day when I or anyone in my family went hungry because there was not enough food. Patient Education: The patient denies that they or the person with them has problems with hearing, speaking, seeing, moving around or learning The patient is comfortable filling out medical forms. Food Insecurity: 1. Within the past 12 months, you worried that your food would run out before you got money to buy more: No 2. Within the past 12 months, the food you bought just didn't last and you didn't have money to get more: No History of Present Illness The patient is being seen for the subsequent annual wellness visit. Past Medical, Surgical and Family History: reviewed and updated in chart. Medications and Supplements: Review of all medications by a prescribing practitioner or clinical pharmacist (such as prescriptions, OTCs, herbal therapies and supplements) documented in the medical record. No, the patient is not using opioids. Patient Self Assessment of Health Status: good. Tobacco use: Non-User Alcohol use: User Illicit drug use: Non-User Current diet: well balanced diet, does not consume adequate fluids and does consume caffeine. Exercise Frequency: regularly. Depression/Suicide Screening: . During the past 2 weeks, the patient has not felt down, depressed or hopeless. During the past 2 weeks, the patient has not felt little interest or pleasure in doing things. Hearing Impairment: Patient has slight hearing impairment, bilaterally, She uses a hearing aid. Cognitive Impairment: No cognitive impairment observed. Bathing: performs independently. Dressing: performs independently. Walking: performs independently. Toileting: performs independently. Feeding: performs independently. Personal Hygiene: performs independently. Bowels: continent. Bladder: continent. Managing Finances: performs independently. Shopping: performs independently. Managing Medications: performs independently. Housework / Basic Home Maintenance: performs independently. Handling Transportation: performs independently. Preparing Meals: performs independently. Using the Telephone/ Communication Devices: performs independently. Falls Risk Screening:. BRIGITTE has fallen in the last 6 months. Her fall did not result in injury. (Pt reports falling d/t tripping over feet) Home safety risk factors: none. Advance directives:. Patient has living will. Patient has healthcare POA. Review of Systems Constitutional: not feeling poorly, no fever, no recent weight gain and no recent weight loss. Eyes: no blurred vision and no diplopia. ENT: no hearing loss, no tinnitus, no earache, no sore throat, no hoarseness and no swollen glands in the neck. Cardiovascular: no chest pain, no tightness or heavy pressure, no shortness of breath, no palpitations and no lower extremity edema. Respiratory: no cough, not coughing up sputum and no wheezing that is consistent with asthma. Gastrointestinal: no change in bowel habits, no diarrhea, no constipatio (more content not included)... Normal Touchworks No Panel Informationon 04-29 >90 >90 [employer] 4020V Work Phone: Comment on above: CALCULATIONS OF RYAN MATED GFR ARE PERFORMED USING THE 2020 CKD-EPI STUDY REFIT EQUATION WITHOUT THE RACE VARIABLE FOR THE IDMS-TRACEABLE CREATININE METHODS.https://jasn.asnjournals.org/content/early/ASN.2 047224674 TSHon 04-29-2022 TSH Qn 1.70 m[IU]/L Normal 0.44 - 3.98 [facility] Comment on above: Result Comment: TSH testing is performed using different testing methodology at [facility] than at other [facility]. Direct result comparisons should only be made within the same method. Performed By: #### T [facility] ####[address] [id number] TSH - Thyroid Stimulating Ho rmone, Serumon 04-29-2022 TSH Qn 1.70 m[IU]/L See Below DY-VLRH-Nmir 3995M Work Phone: Comment on above: Reference Range: 0.4 4 - 3.98 TSH testing is performed using different testing methodology at [facility] than at other [facility]. Direct result comparisons should only be made within the same method. Tobacco Screening.on Adult depression screening assessment No XY-VYYF-Zzph 2535A Work Phone: Fall risk assessment b) One or more falls in the last year OX-EPKK-Ofgc 2535A Work Phone: Tobacco use status CPHS b) No GL-BJCY-Glhl 2535A Work Phone: VITAMIN B12on 04-29-2022 Cobalamin (Vitamin B12) [Mass/Vol] 417 pg/mL Normal 211 - 911 [facility] Comment on above: Performed By: #### V TB12 ####[facility] [place], [place] [id number] VITAMIN D, 25-HYDROXYon VITAMIN D, 25-HYDROXY 31 ng/mL Normal [facility] Comment on above: Result Comment: . DEFICIENCY: < 20 NG/ML INSUFFICIENCY: 20-29 NG/ML SUFFICIENCY: 30-100 NG/ML THIS ASSAY ACCURATELY QUANTIFIES THE SUM OF VITAMIN D3, 25-HYDROXY AND VIT D2,25-HYDROXY. Performed By: #### V TDOH #### [facility] [address] [place], [place] [phone] Vitamin B12, Serumon Cobalamin (Vitamin B12) [Mass/Vol] 417 pg/mL 91 IJ-GRUS-Bclz 2535A Work Phone: Vitamin D 25-Hydroxyon 04-29 25-hydroxyvitamin D3 [Mass/Vol] 31 ng/mL SK-MWLT-Spej 2535A Work Phone: Comment on above: .DEFICIENCY: < 20 NG /MLINSUFFICIENCY: 20-29 NG/MLSUFFICIENCY: 30-100 NG/MLTHIS ASSAY ACCURATELY QUANTIFIES THE SUM OFVITAMIN D3, 25-HYDROXY AND VIT D2,25-HYDROXY. BASIC METABOLIC PANELon - Anion gap [Moles/Vol] 15 mmol/L Normal 10 - 20 [facility] Comment on above: Performed By: #### B MP #### [address] [id number] Calcium [Mass/Vol] 9.6 mg/dL Normal 8.6 - 10.3 [facility] Comment on above: Performed By: #### B MP #### [address] [id number] Chloride [Moles/Vol] 106 mmol/L Normal 98 - 107 [facility] Comment on above: Performed By: #### B MP #### [address] [id number] Creatinine [Mass/Vol] 0.80 mg/dL Normal 0.50 - 1.05 [facility] Comment on above: Performed By: #### B MP #### [address] [id number] GFR/1.73 sq M.predicted among non-blacks MDRD (S/P/Bld) [Vol rate/Area] 78 mL/min/{1.73_m2} Normal >90 [facility] Comment on above: Result Comment: CALC ULATIONS OF ESTIMATED GFR ARE PERFORMED USING THE 2020 CKD-EPI STUDY REFIT EQUATION WITHOUT THE RACE VARIABLE FOR THE IDMS-TRACEABLE CREATININE METHODS. https://jasn.asnjournals.org/content//ASN.161958001 8 Performed By: #### B MP #### [address] [id number] Glucose [Mass/Vol] 67 mg/dL Low 74 - 99 [facility] Comment on above: Performed By: #### B MP #### [address] [id number] HCO3 (Bld) [Moles/Vol] 22 mmol/L Normal 21 - 32 [facility] Comment on above: Performed By: #### B MP #### [address] [id number] Potassium [Moles/Vol] 3.6 mmol/L Normal 3.5 - 5.3 [facility] Comment on above: Performed By: #### B MP #### [address] [id number] Sodium [Moles/Vol] 139 mmol/L Normal 136 - 145 [facility] Comment on above: Performed By: #### B MP #### [address] [id number] Urea nitrogen [Mass/Vol] 17 mg/dL Normal 6 - 23 [facility] Comment on above: Performed By: #### B MP #### [address] [id number] CBCon 04-12-2022 Erythrocyte distribution width (RBC) [Ratio] 13.8 % Normal 11.5 - 14.5 [facility] Comment on above: Performed By: #### C BC #### [address] [id number] Hematocrit (Bld) [Volume fraction] 41.1 % Normal 36.0 - 46.0 [facility] Comment on above: Performed By: #### C BC #### [address] [id number] Hemoglobin (Bld) [Mass/Vol] 13.0 g/dL Normal 12.0 - 16.0 [facility] Comment on above: Performed By: #### C BC #### [address] [id number] MCHC (RBC) [Mass/Vol] 31.6 g/dL Low 32.0 - 36.0 [facility] Comment on above: Performed By: #### C BC #### [address] [id number] MCV (RBC) [Entitic vol] 97 fL Normal 80 - 100 [facility] Comment on above: Performed By: #### C BC #### [address] [id number] Platelets (Bld) [#/Vol] 287 10*3/uL Normal 150 - 450 [facility] Comment on above: Performed By: #### C BC #### [address] [id number] RBC 4.24 x10E12/L Normal 4.00 - 5.20 [facility] Comment on above: Performed By: #### C BC #### [address] [phone] WBC (Bld) [#/Vol] 5.9 10*3/uL Normal 4.4 - 11.3 [facility] Comment on above: Performed By: #### C BC #### [address] [phone] Laboratory - Chemistry and C hemistry - challengeon 04-12-2022 Anion gap [Moles/Vol] 15 mmol/L 10 - 20 FK-VFIQ-Ilaw 2535A Work Phone: Calcium [Mass/Vol] 9.6 mg/dL 8.6 - 10.3 MP-WSP C-[place] 2535A Work Phone: Chloride [Moles/Vol] 106 mmol/L 98 - 107 FW-YHDK-Yzlg 2535A Work Phone: CO2 [Moles/Vol] 22 mmol/L 21 - 32 MP-WSPC-A von 2535A Work Phone: Creatinine [Mass/Vol] 0.80 mg/dL See Below LG-SVPP-Jdwf 2535A Work Phone: Comment on above: Reference Range: 0.5 0 - 1.05 Glucose [Mass/Vol] 67 mg/dL below low threshold 74 - 99 NY-JURN-Bkbk 2535A Work Phone: Potassium [Moles/Vol] 3.6 mmol/L 3.5 - 5.3 LV-CLRQ-Nfcr 2535A Work Phone: Sodium [Moles/Vol] 139 mmol/L 136 - 145 MP-WSP C-Laila 2535A Work Phone: Urea nitrogen [Mass/Vol] 17 mg/dL 6 - 23 FY-IMZT-Yvpw 2535A Work Phone: Laboratory - Hematology and Cell countson 04-12-2022 Erythrocyte distribution width (RBC) [Ratio] 13.8 % See Below SC-ZPCS-Qyss 2535A Work Phone: Comment on above: Reference Range: 11. 5 - 14.5 Hematocrit (Bld) [Volume fraction] 41.1 % See Below ZF-RNMB-Raqy 2535A Work Phone: Comment on above: Reference Range: 36. 0 - 46.0 Hemoglobin (Bld) [Mass/Vol] 13.0 g/dL See Below EK-RXCY-Lrwu 2535A Work Phone: Comment on above: Reference Range: 12. 0 - 16.0 MCHC (RBC) [Mass/Vol] 31.6 g/dL below low threshold See Below HT-XGEM-Vucw 2535A Work Phone: Comment on above: Reference Range: 32. 0 - 36.0 MCV (RBC) [Entitic vol] 97 fL 80 - 100 WY-BNMN-Vecz Óscar5A Work Phone: Platelets (Bld) [#/Vol] 287 10*3/uL 150 - 450 PJ-DMPC-Exvp Óscar5A Work Phone: RBC (Bld) [#/Vol] 4.24 {x10E12/L} See Below MP -WSPC-[place] 2535A Work Phone: Comment on above: Reference Range: 4.0 0 - 5.20 WBC (Bld) [#/Vol] 5.9 10*3/uL 4.4 - 11.3 MP-WSP C-Laila 2535A Work Phone: No Panel Informationon 04-12 78 {mL/min/1.73m2} >90 MP-WSP C-Laila 2535A Work Phone: Comment on above: CALCULATIONS OF RYAN MATED GFR ARE PERFORMED USING THE 2020 CKD-EPI STUDY REFIT EQUATION WITHOUT THE RACE VARIABLE FOR THE IDMS-TRACEABLE CREATININE METHODS.https://jasn.asnjournals.org/content//ASN.2 641034749 Office Visit (Primary Care T xt/Forms)on 04-12-2022 Follow-up visit Diagnoses/Problems Assessed Encounter for immunization (V03.89) (Z23) Finger swelling (729.81) (M79.89) Orders Encounter for immunization Administered: Fluzone High-Dose Quadrivalent 0.7 ML Intramuscular Suspension Prefilled Syringe Finger swelling Start: methylPREDNISolone 4 MG Oral Tablet Therapy Pack (Medrol); USE DIRECTED Basic Metabolic Panel; Status:Complete; Done: 91Kyp1933 12:16PM Complete Blood Count; Status:Complete; Done: [id number] 12:16PM Sedimentation Rate, Erythrocyte; Status:Complete; Done: 74Obo6708 12:16PM Uric Acid, Serum; Status:Complete; Done: 65Rva0721 12:16PM Xray Finger(s) Min 2 View; Status:Hold For - Scheduling; Requested for:[id number]; Laterality : Left Radiologist to Determine Optimal Study : Y What are the patient's signs and symptoms? : 3rd digit Health Maintenance Renew: Bimatoprost 0.03 % External Solution (Latisse); APPLY 1 INCH Bedtime Patient Discussion/Summary steroid check labs xray if not improving History of Present Illness Hand Swelling C/o swelling to 1st finger and middle finger x1 week. C/o joint aching. Hands felt tight while wearing gloves. Took OTC Diurex and Aspercreme, voiced mild improvement. Review of Systems Constitutional: not feeling tired and no fever. Cardiovascular: no chest pain and no palpitations. Respiratory: no cough and no dyspnea with exertion. Active Problems Problems Acute bronchitis (466.0) (J20.9) Acute pain of right knee (719.46) (M25.561) Allergic rhinitis (477.9) (J30.9) Arthritis (716.90) (M19.90) Atrophic vulvovaginitis (627.3) (N95.2) Back pain (724.5) (M54.9) Bowel habit changes (787.99) (R19.4) Cataracts, bilateral (366.9) (H26.9) Cervical radiculopathy, acute (723.4) (M54.12) Chronic rhinitis (472.0) (J31.0) Constipation (564.00) (K59.00) COVID-19 (079.89) (U07.1) Encounter for immunization (V03.89) (Z23) Fall (E888.9) (W19.XXXA) Fall, accidental (E888.9) (W19.XXXA) Geographic tongue (529.1) (K14.1) Glossitis (529.0) (K14.0) H/O degenerative disc disease (V13.59) (Z87.39) H/O hysterectomy for benign disease (V88.01) (Z90.710) Hemorrhoids (455.6) (K64.9) Hip pain, bilateral (719.45) (M25.551,M25.552) Inflamed seborrheic keratosis (702.11) (L82.0) Insomnia (780.52) (G47.00) Intercostal pain (786.59) (R07.82) Knee pain, bilateral (719.46) (M25.561,M25.562) Leg weakness (729.89) (R29.898) Lumbar disc disease (722.93) (M51.9) Lumbar radiculopathy, acute (724.4) (M54.16) Lumbar spinal stenosis (724.02) (M48.061) Medication management (V58.69) (Z79.899) Memory loss or impairment (780.93) (R41.3) Neck pain (723.1) (M54.2) Other screening mammogram (V76.12) (Z12.31) Overweight (BMI 25.0-29.9) (278.02) (E66.3) Papular urticaria (698.2) (L28.2) Pneumonia (486) (J18.9) Polyarthropathy, multiple sites (716.50) (M13.0) Postmenopausal osteoporosis (733.01) (M81.0) Postmenopausal vaginal bleeding (627.1) (N95.0) 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) Prolapse urethral mucosa (599.5) (N36.8) Prolapsed internal hemorrhoids (455.2) (K64.8) Sciatica (724.3) (M54.30) Sleep apnea (780.57) (G47.30) Spider bite (989.5,E905.1) (T63.301A) Spinal stenosis, lumbar (724.02) (M48.061) Urinary hesitancy (788.64) (R39.11) Vitamin D deficiency (268.9) (E55.9) Weight loss (783.21) (R63.4) Word finding difficulty (V40.1) (R47.89) Past Medical History Problems History of Eye, ear, nose, and throat symptom (780.99) (R68.89) History of Greater trochanter fracture (820.20) (S72.113A) History of anxiety (V11.8) (Z86.59) History of depression (V11.8) (Z86.59) History of malignant neoplasm of breast (V10.3) (Z85.3) History of vaginal bleeding (V13.29) (Z87.42) History of Numbness and tingling (782.0) (R20.0,R20.2) Surgical History Problems History of Cataract surgery History of Hysterectomy total History of Tonsillectomy with adenoidectomy History of Tubal ligation History of Varicose vein ligation Family History Mother Family history of Family history of hyperlipidemia (V18.19) (Z83.438) History of quadruple bypass Family history of Overweight Father Family history of Family history of hypertension (V17.49) (Z82.49) Social History Problems Caffeine use (V49.89) (Z78.9) Former smoker (V15.82) (Z87.891) Occasional alcohol use Retired from employment Current Meds Medication NameInstruction B Complex 1 TABS Bimatoprost 0.03 % External SolutionAPPLY 1 INCH Bedtime Doxycycline Hyclate 100 MG Oral CapsuleTake 1 capsule by mouth daily. (Per Derm) Senokot 8.6 MG Oral TabletTake 8 tabs PO QHS. Vitamin D 50 MCG (1999) Oral TabletTAKE 1 CAPSULE BY MOUTH DAILY. Allergies Medication Codeine Derivatives Tylenol NonMedication [place] [employer] Mold Vitals Vital Signs Recorded: 12Apr2022 11:45AM Temperature: 98.2 F Heart Rate: 72 Respiration: 18 Systolic: 126 Diastolic: 80 Weight: 167 lb (more content not included)... Normal Touchworks SEDIMENTATION RATE, ERYTHROC YTEon 04-12-2022 SEDIMENTATION RATE, ERYTHROCYTE 9 mm/h Normal 0 - 30 [facility] Comment on above: Result Comment: Karis tatum note new reference ranges as of 12/03/2021. Ran on alternate instrument Reference Ranges: Males: 0-15 Females: 0-20 Children under 18: 0-10 Performed By: #### E SRWS #### [address] [id number] Sedimentation Rate, Erythroc yteon 04-12-2022 ESR (Bld) [Velocity] 9 mm/h 0 - 30 US-INCW-Lfgw 2532W Work Phone: Comment on above: Please note new refe rence ranges as of 12/03/2021.Ran on alternate instrumentReference Ranges: Males: 0-15 Females: 0-20 Children under 18: 0-10 Tobacco Screening.on 022 Fall risk assessment b) One or more falls in the last year ZI-YQJD-Liis 2532N Work Phone: Tobacco use status [facility] b) No XB-ZMYD-Yais 2535A Work Phone: URIC ACIDon 04-12-2022 Urate [Mass/Vol] 4.2 mg/dL Normal 2.3 - 6.7 [facility] Comment on above: Result Comment: Rachael puncture immediately after or during the administration of Metamizole may lead to falsely low results. Testing should be performed immediately prior to Metamizole dosing. Performed By: #### U AILYN #### [address] [id number] Uric Acid, Serumon 09-16-202 2 Urate [Mass/Vol] 4.2 mg/dL 2.3 - 6.7 MP-WSPC- [place] 2535A Work Phone: Comment on above: Venipuncture immedia tely after or during the administration of Metamizole may lead to falsely low results. Testing should be performed immediately prior to Metamizole dosing. DIGITAL MAMM SCREENING W/ TO Taylor 11-20-2021 DIGITAL MAMM SCREENING W/ CLAUDIA Patient Name: BRIGITTE HIGH STUDY: DIGITAL MAMM SCREENING W/ CLAUDIA; 11/20/2021 12:37 pm ACCESSION NUMBER(S): [id number] ORDERING CLINICIAN: JING CAMPBELL INDICATION: Right breast screening. Previous left mastectomy. COMPARISON: 07/15/2020, 12/30/2018. FINDINGS: 2D and tomosynthesis images of the right breast were reviewed at 1 mm slice thickness. The breast tissue is heterogeneously dense, which may obscure small masses. No new suspicious masses or calcifications are identified. IMPRESSION: No mammographic evidence of malignancy. BI-RADS CATEGORY: Category: 1 - Negative. Recommendation: 1 Year Screening. For any future breast imaging appointments, please call [phone]). Electronically signed by: BUCK HIGUERA MD Normal [facility] Mamm - Screening Mammogram w / Tomosynthesison 11-20-2021 MG Breast Screening Normal [facility] Work Phone: No Panel Informationon 11-20 Please click on the link to view the study images Normal [facility] Work Phone: Normal XI-MTGI-Jvvi 5A Work Phone: SPINE, LUMBOSACRAL MIN 4 VIE WSon 11-20-2021 SPINE, LUMBOSACRAL MIN 4 VIEWS Patient Name: BRIGITTE HIGH STUDY: Lumbar Spine, 5 views. INDICATION: lbp M54.9: Back pain. COMPARISON: 07/15/2020. ACCESSION NUMBER(S): [id number] ORDERING CLINICIAN: JING CAMPBELL FINDINGS: Moderate levoscoliosis centered in the mid lumbar region. Grade 1 L5-S1 anterolisthesis noted. Moderate spondylosis at L2-3 with disc height loss and endplate sclerosis. Mild spondylosis at L3-4. Ufoh-vw-xgvpnmmy facet joint degenerative changes throughout the lumbar spine. No spondylolysis on the oblique views. Atherosclerosis of the abdominal aorta noted Vertebral body heights are preserved. Posterior elements are intact. IMPRESSION: 1. Moderate levoscoliosis with lumbar spine degenerative changes as described above that are most pronounced at L2-3 and L3-4. 2. Grade 1 L5-S1 anterolisthesis. Electronically signed by: POORNIMA MONTERO MD Normal [facility] Tobacco Screening.on Last menstrual period start date hysterectomy [facility] Work Phone: Tobacco use status [facility] b) No [facility] Work Phone: CHEST 2 VIEW PA AND LATon CHEST 2 VIEW PA AND LAT Patient Name: BRIGITTE HIGH STUDY: TH CHEST 2 VIEW PA AND LAT; INDICATION: pain. Cough. History of breast cancer and history of smoking. COMPARISON: 07/27/2020 ACCESSION NUMBER(S): [id number] ORDERING CLINICIAN: JING CAMPBELL FINDINGS: The cardiac silhouette size is within normal limits. There is no focal consolidation, edema or pneumothorax. No sizeable pleural effusion. No acute osseous abnormality. Thoracic spine discogenic degenerative changes are noted in the mid and lower thoracic regions with disc height loss. Mild dextroscoliosis, centered in the lower thoracic region noted as well. Surgical clips are visualized in the region of the left breast. IMPRESSION: No acute cardiopulmonary process. Electronically signed by: POORNIMA MONTERO MD Normal [facility] Cult, Urineon 04-04-2021 Bacteria identified Cx Nom (U) RS-HXWO-Uycc 8500R Work Phone: Laboratory - Chemistry and C hemistry - challengeon 04-04-2021 Albumin BCP dye [Mass/Vol] 4.2 g/dL 3.4 - 5.0 DY-ZMQY-Zpqn 2535A Work Phone: ALP [Catalytic activity/Vol] 81 U/L 33 - 136 AT-VMJF-Bfqx 2535A Work Phone: ALT With P-5'-P [Catalytic activity/Vol] 24 U/L 7 - 45 PW-ZKON-Mqfv 2535A Work Phone: Comment on above: Patients treated wit h Sulfasalazine may generate falsely decreased results for ALT. Anion gap [Moles/Vol] 12 mmol/L 10 - 20 IN-GWVV-Wtkm Óscar5A Work Phone: AST With P-5'-P [Catalytic activity/Vol] 22 U/L 9 - 39 EM-USOP-Eucu 2535A Work Phone: Bilirubin [Mass/Vol] 0.4 mg/dL 0.0 - 1.2 RQ-QMWF-Xphv Óscar5A Work Phone: Calcium [Mass/Vol] 9.6 mg/dL 8.6 - 10.3 MP-WSP C-[place] Guy Work Phone: Chloride [Moles/Vol] 107 mmol/L 98 - 107 BI-VJZK-Zada Óscar5A Work Phone: CO2 [Moles/Vol] 26 mmol/L 21 - 32 MP-WSPC-A onel Cantrell Work Phone: Creatinine [Mass/Vol] 0.65 mg/dL See Below XO-MEEP-Llvw 2535A Work Phone: Comment on above: Reference Range: 0.5 0 - 1.05 Glucose [Mass/Vol] 89 mg/dL 74 - 99 MP-WSP C-Laila 2535A Work Phone: Potassium [Moles/Vol] 4.7 mmol/L 3.5 - 5.3 ZS-CHQH-Ejve 2535A Work Phone: Protein [Mass/Vol] 7.2 g/dL 6.4 - 8.2 MP-WSP C-[place] 2535A Work Phone: Sodium [Moles/Vol] 140 mmol/L 136 - 145 MP-WSP C-Laila Guy Work Phone: Urea nitrogen [Mass/Vol] 12 mg/dL 6 - 23 UE-UTDP-Ctzo 2535A Work Phone: Laboratory - Hematology and Cell countson 04-04-2021 Erythrocyte distribution width (RBC) [Ratio] 13.8 % See Below QW-PTSM-Arvh 2535A Work Phone: Comment on above: Reference Range: 11. 5 - 14.5 Hematocrit (Bld) [Volume fraction] 41.7 % See Below FX-NBIY-Deiw 253Jose Luis Work Phone: Comment on above: Reference Range: 36. 0 - 46.0 Hemoglobin (Bld) [Mass/Vol] 13.2 g/dL See Below WL-CUNP-Nlyr Guy Work Phone: Comment on above: Reference Range: 12. 0 - 16.0 MCHC (RBC) [Mass/Vol] 31.7 g/dL below low threshold See Below LP-NJYR-Vwvu Guy Work Phone: Comment on above: Reference Range: 32. 0 - 36.0 MCV (RBC) [Entitic vol] 98 fL 80 - 100 EQ-LUCW-Yeab Guy Work Phone: Platelets (Bld) [#/Vol] 247 10*3/uL 150 - 450 YZ-MCUI-Jmsu Guy Work Phone: RBC (Bld) [#/Vol] 4.26 {x10E12/L} See Below MP -WSPC-[place] 2535A Work Phone: Comment on above: Reference Range: 4.0 0 - 5.20 WBC (Bld) [#/Vol] 4.7 10*3/uL 4.4 - 11.3 MP-WSP C-Laila Work Phone: Lipid Panelon 04-04-2021 Cholesterol [Mass/Vol] 206 mg/dL above high threshold 0 - 199 DK-ZPVS-Etyv 0415R Work Phone: Comment on above: . AGE DESIRABLE BORD CARMELO HIGH HIGH 0-19 Y 0 - 169 170 - 199 >/= 200 20-24 Y 0 - 189 190 - 224 >/= 225 >24 Y 0 - 199 200 - 239 >/= 240 All ranges are based on fasting samples. Specific therapeutic targets will vary based on patient-specific cardiac risk.. Pediatric guidelines reference:Pediatrics 2011, 128(S5). Adult guidelines reference: NCEP ATPIII Guidelines, LUDIVINA 2001, 258:2486-97. Venipuncture immediately after or during the administration of Metamizole may lead to falsely low results. Testing should be performed immediately prior to Metamizole dosing. Cholesterol in HDL [Mass/Vol] 79.0 mg/dL XR-ZLCE-Bise 4077O Work Phone: Comment on above: . AGE VERY LOW LOW N ORMAL HIGH 0-19 Y < 35 < 40 40-45 ---- 20- 24 Y ---- < 40 >45 ---- >24 Y ---- < 40 40-60 >60. Cholesterol in LDL [Mass/Vol] 95 mg/dL 0 - 99 AS-LHRP-Qdvh 4822C Work Phone: Comment on above: . NEAR BORD AGE CHERRIE RABLE OPTIMAL HIGH HIGH VERY HIGH 0-19 Y 0 - 109 --- 110-129 >/= 130 ---- 20-24 Y 0 - 119 --- 120-159 >/= 160 ---- >24 Y 0 - 99 100-129 130-159 160-189 >/=190. Cholesterol.total/ Cholesterol in HDL [Mass ratio] 2.6 {ratio} HP-UQTJ-Vlch 6327L Work Phone: Comment on above: REF VALUESDESIRABLE < 3.4HIGH RISK > 5.0 Triglyceride [Mass/Vol] 161 mg/dL above high threshold 0 - 149 WI-NCOM-Ijzr 0882T Work Phone: Comment on above: . AGE DESIRABLE BORD CARMELO HIGH HIGH VERY HIGH 0 D-90 D 19 - 174 ---- ---- ----91 D- 9 Y 0 - 74 75 - 99 >/= 100 ---- 10-19 Y 0 - 89 90 - 129 >/= 130 ---- 20-24 Y 0 - 114 115 - 149 >/= 150 ---- >24 Y 0 - 149 150 - 199 200- 499 >/= 500. Venipuncture immediately after or during the administration of Metamizole may lead to falsely low results. Testing should be performed immediately prior to Metamizole dosing. Lipid Panel 32 mg/dL 0 - 40 HV-MDNY-Tkxi [employer] Work Phone: No Panel Informationon 04-04 >60 >60 ML-QXRT-Qarm [employer] Work Phone: Comment on above: CALCULATIONS OF RYAN MATED GFR ARE PERFORMED USING THE MDRD STUDY EQUATION FOR THE IDMS-TRACEABLE CREATININE METHODS. CLIN CHEM 2007;53:766-72 Radiologyon 04-04-2021 XR Chest 2 Views Normal MP-WSPC- [place] [employer] Work Phone: Urinalysison 04-04-2021 Color (U) YELLOW See Below TW-EXGS-Kgql [employer] Work Phone: Comment on above: Reference Range: STR AW,YELLOW Glucose Ql (U) Negative NEGATIVE MP-WSPC-Av on [employer] Work Phone: Ketones Ql (U) Negative NEGATIVE MP-WSPC-Av on [employer] Work Phone: Leukocyte esterase Test strip Ql (U) LARGE (3+) Abnormal NEGATIVE SJ-TFBI-Lscq [employer] Work Phone: pH (U) 5.0 [pH] 5.0 - 8.0 ND-LZUA-Ncse 2535A Work Phone: Protein (U) [Mass/Vol] Negative NEGATIVE AV-ZFNX-Ixxl [employer] Work Phone: RBC (U) [#/Vol] Negative NEGATIVE MP-WSPC-A von Óscar8G Work Phone: Specific gravity (U) [Rel density] 1.016 1 See Below NL-QCEA-Hvwg 2535A Work Phone: Comment on above: Reference Range: 1.0 05 - 1.035 Urinalysis Negative NEGATIVE SS-ITAM-Jttm 2535A Work Phone: Urinalysis <2.0 0.0 - 1.9 GP-NZTH-Rwqr 2535A Work Phone: Urinalysis CLEAR CLEAR ZV-BYGJ-Oydn 2535A Work Phone: Urinalysis, Microscopicon Urinalysis, Microscopic <1 0-5 KX-ROTW-Avto 2535A Work Phone: Urinalysis, Microscopic 1 {/HPF} 0-5 RN-ROBO-Cxuu 2535A Work Phone: Vitamin D 25-Hydroxyon 04-04 25-hydroxyvitamin D3 [Mass/Vol] 34 ng/mL KL-NHVD-Kemf 253Jose Luis Work Phone: Comment on above: .DEFICIENCY: < 20 NG /MLINSUFFICIENCY: 20-29 NG/MLSUFFICIENCY: 30-100 NG/MLTHIS ASSAY ACCURATELY QUANTIFIES THE SUM OFVITAMIN D3, 25-HYDROXY AND VIT D2,25-HYDROXY. BILATERAL KNEE 3 VIEWSon BILATERAL KNEE 3 VIEWS Patient Name: BRIGITTE HIGH STUDY: BILATERAL KNEE; 3 VIEWS; 02/20/2021 12:06 pm INDICATION: right lateral knee pain. COMPARISON: None. ACCESSION NUMBER(S): [id number] ORDERING CLINICIAN: JING CAMPBELL FINDINGS: Bilateral knees, three views of each Mild tricompartmental osteophytosis bilaterally. There is no joint space narrowing. There is no effusion. No fracture seen IMPRESSION: Mild degenerative changes with osteophyte formation Electronically signed by: RIKY MCDONOUGH MD [facility] C Reactive Protein, Serumon 02-20-2021 CRP [Mass/Vol] 0.59 mg/dL MP-WSPC-Av on Work Phone: Comment on above: REF VALUE< 1.00 Citrulline Antibodyon 2020 Cyclic citrullinated peptide IgG Qn <1 RT-UBJS-Pmap Work Phone: Comment on above: THE TEST FOR ANTIBOD IES SPECIFIC FOR CYCLICCITRULLINATED PEPTIDE (CCP) HAS SHOWN TO BEVALUABLE IN THE DIAGNOSIS OF RHEUMATOIDARTHRITIS. THE DIAGNOSTIC VALUE OFANTIBODIES TO CCP IN JUVENILE RHEUMATOIDARTHRITIS PATIENTS HAS NOT BEEN DETERMINED.ANTIBODIES TO CENTROMERE OR SS-A AND MYELOMA IGG MAY BE REACTIVE IN THIS ASSAY. REF VALUES NEGATIVE < 3 U/ML POSITIVE >=3 U/ML Laboratory - Chemistry and C hemistry - challengeon 02-20-2021 Albumin BCP dye [Mass/Vol] 4.3 g/dL 3.4 - 5.0 XS-DMZA-Coor 2S Work Phone: ALP [Catalytic activity/Vol] 70 U/L 33 - 136 ZV-OSGA-Pvbp [employer]0P Work Phone: ALT With P-5'-P [Catalytic activity/Vol] 23 U/L 7 - 45 CF-MRNW-Gqoz 1M Work Phone: Comment on above: Patients treated wit h Sulfasalazine may generate falsely decreased results for ALT. Anion gap [Moles/Vol] 13 mmol/L 10 - 20 IH-UERZ-Ywvl 0F Work Phone: AST With P-5'-P [Catalytic activity/Vol] 27 U/L 9 - 39 OO-AEOW-Jaux 2535A Work Phone: Bilirubin [Mass/Vol] 0.5 mg/dL 0.0 - 1.2 XS-WEMI-Grvu 2535A Work Phone: Calcium [Mass/Vol] 9.6 mg/dL 8.6 - 10.3 MP-WSP C-Laila 1Y Work Phone: Chloride [Moles/Vol] 107 mmol/L 98 - 107 OT-HMUI-Vbix 2535A Work Phone: CO2 [Moles/Vol] 23 mmol/L 21 - 32 LYN-WSPC-Lauryn quigley Work Phone: Creatinine [Mass/Vol] 0.71 mg/dL See Below GE-HZWC-Mjko 2535A Work Phone: Comment on above: Reference Range: 0.5 0 - 1.05 Glucose [Mass/Vol] 82 mg/dL 74 - 99 MP-WSP CThierno Tovar Work Phone: Potassium [Moles/Vol] 4.2 mmol/L 3.5 - 5.3 SY-LCVG-Flbj 2535A Work Phone: Protein [Mass/Vol] 7.2 g/dL 6.4 - 8.2 LYN-WSP C-Laila Tovar Work Phone: Sodium [Moles/Vol] 139 mmol/L 136 - 145 MP-WSP C-Laila Tovar Work Phone: Urea nitrogen [Mass/Vol] 18 mg/dL 6 - 23 AR-NZGN-Fklu 2535A Work Phone: Laboratory - Hematology and Cell countson 02-20-2021 Erythrocyte distribution width (RBC) [Ratio] 14.3 % See Below NV-FGDI-Zvto 2535A Work Phone: Comment on above: Reference Range: 11. 5 - 14.5 Hematocrit (Bld) [Volume fraction] 41.3 % See Below CE-JPGM-Cqri 2535A Work Phone: Comment on above: Reference Range: 36. 0 - 46.0 Hemoglobin (Bld) [Mass/Vol] 13.0 g/dL See Below GC-QEUR-Hihm Guy Work Phone: Comment on above: Reference Range: 12. 0 - 16.0 MCHC (RBC) [Mass/Vol] 31.5 g/dL below low threshold See Below OC-QBTS-Xuwr 2535A Work Phone: Comment on above: Reference Range: 32. 0 - 36.0 MCV (RBC) [Entitic vol] 100 fL 80 - 100 TK-TVTJ-Kder 2535A Work Phone: Platelets (Bld) [#/Vol] 261 10*3/uL 150 - 450 JF-CQNM-Irfg 2535A Work Phone: RBC (Bld) [#/Vol] 4.13 {x10E12/L} See Below MP -WSPC-[place] 2535A Work Phone: Comment on above: Reference Range: 4.0 0 - 5.20 WBC (Bld) [#/Vol] 6.0 10*3/uL 4.4 - 11.3 MP-WSP C-Laila 2535A Work Phone: Laboratory - Serology - non- microon 02-20-2021 Nuclear Ab Hep2 substrate Ql (S) Negative NEGATIVE JX-LDXE-Aogd 2535A Work Phone: Comment on above: The Antinuclear Anti body (JACOB) test was performed using indirect immunofluorescence assay with HEp-2 cells slide. No Panel Informationon 02-20 >60 >60 ZP-KVMN-Kdia 2535A Work Phone: Comment on above: CALCULATIONS OF RYAN MATED GFR ARE PERFORMED USING THE MDRD STUDY EQUATION FOR THE IDMS-TRACEABLE CREATININE METHODS. CLIN CHEM 2007;53:766-72 Radiologyon 02-20-2021 XR Knee - bilateral 3 Views Normal UO-LXNP-Kmyh 2535A Work Phone: XR Knee - bilateral 3 Views Please click on the link to view the study images Normal HU-OFNH-Sntn 2535A Work Phone: Rheumatoid Factor, Serum or Plasmaon 02-20-2021 Rheumatoid factor Nephelometry Qn (S) <10 0 - 15 OF-LHML-Zuql 2535A Work Phone: Sedimentation Rate, Erythroc yteon 02-20-2021 ESR (Bld) [Velocity] 8 mm/h 0 - 20 UJ-AGHF-VylwConductiv5L Work Phone: TSH - Thyroid Stimulating Ho rmone, Serumon 02-20-2021 TSH Qn 2.66 m[IU]/L See Below CA-HGGR-Qvuw 9357Q Work Phone: Comment on above: Reference Range: 0.4 4 - 3.98 TSH testing is performed using different testing methodology at [facility] than at other [facility]. Direct result comparisons should only be made within the same method. Uric Acid, Serumon 1 Urate [Mass/Vol] 4.5 mg/dL 2.3 - 6.7 MP-Abyz6N Work Phone: Comment on above: Venipuncture immedia tely after or during the administration of Metamizole may lead to falsely low results. Testing should be performed immediately prior to Metamizole dosing. Vitamin B12, Serumon 021 Cobalamin (Vitamin B12) [Mass/Vol] 306 pg/mL 211 - 911 IB-MLCI-HrydConductiv0O Work Phone: CA27.29 (CA15-3)on 1 Cancer Ag 27-29 Qn 44.7 [arb'U]/mL above high threshold 0.0 - 38.6 LS-MVQL-HvpdYETI Group1I Work Phone: Comment on above: CA 27.29 testing is performed by chemiluminescent immunoassay using the H-care. Values obtained with different analytic methods cannot be used interchangeably.. Serum CA 27.29 measurement is intended for use as an aid in monitoring patients previously treated for Stage II or Stage III breast cancer. This assay is not intended for screening or diagnosis of cancer in the general population. The results must not be used as the sole means for clinical diagnosis or patient management decisions. Complete Blood Count + Diffe rentialon 12-26-2020 Basophils/100 WBC (Bld) 0.5 % 0.0 - 2.0 TV-PNMK-Wdsp 2535A Work Phone: Erythrocyte distribution width (RBC) [Ratio] 14.1 % See Below FO-UIST-Prju 2535A Work Phone: Comment on above: Reference Range: 11. 5 - 14.5 Hematocrit (Bld) [Volume fraction] 36.1 % See Below HK-QZKA-Zasa 2535A Work Phone: Comment on above: Reference Range: 36. 0 - 46.0 Hemoglobin (Bld) [Mass/Vol] 11.9 g/dL below low threshold See Below GU-PJZD-Tnea 2535A Work Phone: Comment on above: Reference Range: 12. 0 - 16.0 Lymphocytes/100 WBC (Bld) 39.4 % See Below JZ-CMQJ-Wsik 253Jose Luis Work Phone: Comment on above: Reference Range: 13. 0 - 44.0 MCHC (RBC) [Mass/Vol] 33.0 g/dL See Below XF-RNTV-Szxk 253Jose Luis Work Phone: Comment on above: Reference Range: 32. 0 - 36.0 MCV (RBC) [Entitic vol] 95 fL 80 - 100 ET-QORS-Geae Guy Work Phone: Monocytes/100 WBC (Bld) 7.5 % 2.0 - 10.0 NN-OLEB-Olbm 2535A Work Phone: Neutrophils/100 WBC (Bld) 50.1 % See Below JV-DPCL-Zyrr 2535A Work Phone: Comment on above: Reference Range: 40. 0 - 80.0 Platelets (Bld) [#/Vol] 225 10*3/uL 150 - 450 FF-HRSG-Qghq 2535A Work Phone: RBC (Bld) [#/Vol] 3.80 {x10E12/L} below low threshold See Below DF-EZYN-Lryx 2535A Work Phone: Comment on above: Reference Range: 4.0 0 - 5.20 WBC (Bld) [#/Vol] 4.0 10*3/uL below low threshold 4.4 - 11.3 ZY-ILMG-Jplr Guy Work Phone: Complete Blood Count + Differential 0.02 {x10E9/L} See Below ZD-KPOR-Odlk Guy Work Phone: Comment on above: Reference Range: 0.0 0 - 0.10 Complete Blood Count + Differential 0.10 {x10E9/L} See Below JV-RYPQ-Wakg Guy Work Phone: Comment on above: Reference Range: 0.0 0 - 0.40 Complete Blood Count + Differential 0.30 {x10E9/L} See Below ZV-BQQA-Pdep Guy Work Phone: Comment on above: Reference Range: 0.0 5 - 0.80 Complete Blood Count + Differential 1.57 {x10E9/L} See Below DL-FWMU-Lwvy Guy Work Phone: Comment on above: Reference Range: 0.8 0 - 3.00 Complete Blood Count + Differential 1.99 {x10E9/L} See Below OO-UASB-Jpqe Guy Work Phone: Comment on above: Reference Range: 1.6 0 - 5.50 Complete Blood Count + Differential 2.5 % 0.0 - 6.0 LF-XRDR-Cdum Guy Work Phone: Complete Blood Count + Differential 0.0 % 0.0 - 0.9 CO-EOLK-Sdzc Guy Work Phone: Comment on above: Immature Granulocyte Count (IG) includes promyelocytes, myelocytes and metamyelocytes but does not include bands. Percent differential counts (%) should be interpreted in the context of the absolute cell counts (cells/L). Laboratory - Chemistry and C hemistry - challengeon 12-26-2020 Albumin BCP dye [Mass/Vol] 4.4 g/dL 3.4 - 5.0 MN-UYLR-Mdtj Guy Work Phone: ALP [Catalytic activity/Vol] 66 U/L 33 - 136 GZ-MKDC-Ygxd 2535A Work Phone: ALT With P-5'-P [Catalytic activity/Vol] 18 U/L 7 - 45 WS-JZKN-Bduk 2535A Work Phone: Comment on above: Patients treated wit h Sulfasalazine may generate falsely decreased results for ALT. Anion gap [Moles/Vol] 10 mmol/L 10 - 20 NP-VABO-Bjsy 2535A Work Phone: AST With P-5'-P [Catalytic activity/Vol] 19 U/L 9 - 39 TY-SHRJ-Tkxl 2535A Work Phone: Bilirubin [Mass/Vol] 0.5 mg/dL 0.0 - 1.2 RI-FJZE-Mgem 2535A Work Phone: Calcium [Mass/Vol] 9.6 mg/dL 8.6 - 10.3 MP-WSP C-[place] Work Phone: Chloride [Moles/Vol] 108 mmol/L above high threshold 98 - 107 AX-VCPO-Ugxo 2535A Work Phone: CO2 [Moles/Vol] 25 mmol/L 21 - 32 MP-WSPC-A von 6A Work Phone: Creatinine [Mass/Vol] 0.70 mg/dL See Below UV-YDHR-Spmz 2535A Work Phone: Comment on above: Reference Range: 0.5 0 - 1.05 Glucose [Mass/Vol] 108 mg/dL above high threshold 74 - 99 ZB-XGXO-Dyui 2535A Work Phone: Potassium [Moles/Vol] 3.7 mmol/L 3.5 - 5.3 OY-QCIQ-Talo 2535A Work Phone: Protein [Mass/Vol] 7.1 g/dL 6.4 - 8.2 MP-WSP C-[place] 0K Work Phone: Sodium [Moles/Vol] 139 mmol/L 136 - 145 MP-WSP C-[place] 2535A Work Phone: Urea nitrogen [Mass/Vol] 16 mg/dL 6 - 23 IH-QCJO-Zzpj 2535A Work Phone: No Panel Informationon 12-26 >60 >60 YK-CBCF-Sgsn 2537Z Work Phone: Comment on above: CALCULATIONS OF RYAN MATED GFR ARE PERFORMED USING THE MDRD STUDY EQUATION FOR THE IDMS-TRACEABLE CREATININE METHODS. CLIN CHEM 2007;53:766-72 Mamm - Screening Mammogram w / Tomosynthesison 07-15-2020 MG Breast screening Interpreted by: BAILEE HUDSON09/17/19 08:23MRN: [id number] Name: BRIGITTE HIGH STUDY:DIGITAL SCREENING RIGHT-SIDED MAMMOGRAM WITH BREAST TOMOSYNTHESIS ANDWITH CAD; 07/15/2020 9:51 am INDICATION:Routine screening. COMPARISON:12/30/2018 ORDERING CLINICIAN:JING CAMPBELL FINDINGS:2D and tomosynthesis images were reviewed at 1 mm slice thickness.Images were obtained in MLO and CC projections. The breast tissue is heterogeneously dense, which may obscure smallmasses. There are few stable scattered calcifications. No newsuspicious masses or calcifications are identified. There are stableareas of asymmetry. This study was interpreted with CAD. IMPRESSION:No mammographic evidence of malignancy. BI-RADS CATEGORY: Category: 2 - Benign.Recommendation: 1 Year Screening.Electronically signed by: BAILEE HUTSON 07/17/20 08:23 Normal TH-VVGB-Srvw 2907X Work Phone: Comment on above: ORDER REVISED TO A D IGITAL MAMM SCREENING W/ CLAUDIA BY RADIOLOGIST; Original Order Number: [id number] Otheron 07-15-2020 XR Cervical spine 3 views Interpreted by: YASMINE GIRON07/17/20 10:01MRN: [id number] Name: BRIGITTE HIGH STUDY:SPINE, CERVICAL, 2 OR 3 VIEWS INDICATION:Neck pain Cervicalgia M54.9 Dorsalgia, unspecified . COMPARISON:May 07, 2018 ORDERING CLINICIAN:JING CAMPBELL FINDINGS:Anterior cervical fusion C5 through C7 satisfactory appearance withadvanced cervical degenerative change C4-5 and to a lesser extentC7-T1 hardware satisfactory. Alignment unchanged. Possible new area of patchy airspace disease right upper lobe. IMPRESSION:Unchanged appearance with satisfactory C5-C7 seizure in anddegenerative change. Possible new right upper lobe airspace disease which could bepneumonia. I recommend dedicated radiographs of the chest.Electronically signed by: YASMINE GIRON 07/17/20 10:01 Normal [employer] 6980R Work Phone: XR Lumbar spine AP and lateral Interpreted by: YASMINE GIRON07/17/20 10:02MRN: [id number] Name: REAL HIGHMARIE STUDY:SPINE, LUMBOSACRAL; 2 OR 3 VIEWS INDICATION:Neck pain Cervicalgia M54.9 Dorsalgia, unspecified . COMPARISON:April 22, 2016 ORDERING CLINICIAN:JING CAMPBELL FINDINGS:Mild scoliosis unchanged. There is a moderate degree of multilevel lumbar degenerative changeat all levels from L2-S1 which has minimally progressed from prior.There is a mild anterolisthesis of 8 mm of L4-L5 which has alsoprogressed. IMPRESSION:There is a moderate degree of multilevel lumbar degenerative changeat all levels from L2-S1 which has minimally progressed from prior.There is a mild anterolisthesis of 8 mm of L4-L5 which has alsoprogressed.Electronic ally signed by: YASMINE GIRON 07/17/20 10:02 Normal [employer] 2535A Work Phone: KNEES BOTH STANDINGon 2017 KNEES BOTH STANDING DATE OF EXAM: May 07 2018 1:48PM CLINICAL HISTORY/ Patient Name: BRIGITTE HIGH STUDY: KNEES BOTH STANDING; 05/07/2018 1:48 pm INDICATION: cervical radiculopathy, bilat knee pain. COMPARISON: None. ACCESSION NUMBER(S): [id number] ORDERING CLINICIAN: JING CAMPBELL FINDINGS: No fracture or dislocation of either knee. Moderate joint space narrowing. Tiny patellar osteophytes. CONCLUSION: IMPRESSION: Moderate degenerative changes of the knees. Normal [facility] SPINE C MIN 4 VIEWSon 2017 SPINE C MIN 4 VIEWS DATE OF EXAM: May 07 2018 1:48PM CLINICAL HISTORY/ Patient Name: BRIGITTE HIGH STUDY: SPINE C MIN 4 VIEWS; 05/07/2018 1:48 pm INDICATION: cervical radiculopathy, bilat knee pain. COMPARISON: None. ACCESSION NUMBER(S): [id number] ORDERING CLINICIAN: JING CAMPBELL FINDINGS: Anterior metallic fusion hardware with solid osseous interbody fusion extends from C5-C7. Multilevel degenerative disc disease most pronounced at C4-5 and C7-T1. Multilevel facet arthropathy. Grade 1 anterolisthesis C7-T1. No apparent fracture or subluxation. Uncovertebral osteophytes are scattered throughout the cervical spine causing multilevel foraminal stenosis most pronounced at C4-5. CONCLUSION: IMPRESSION: C5-C7 fusion without apparent complication. Degenerative changes of the cervical spine. Normal [facility] LUMBAR SP WO CONTRASTon 09-26 LUMBAR SP WO CONTRAST STUDY:LUMBAR SP WO CONTRAST; 10/18/2017 8:10 amINDICATION:LUMBAR RADICULOPATHY (M54.16).COMPARISON:04/29ACCESSION NUMBER(S):[id number] RDERING CLINICIAN:Jing CampbellTECHNIQUE:Sagittal and axial T1 and T2 weighted images of the lumbar spine wereacquired.FINDINGS:Ali gnment: There remains mild levoscoliosis without listhesis.Vertebrae/Inter vertebral Discs: The vertebral bodies demonstrateexpected height.The marrow signal is within normal limits. There ispersistent disc desiccation with loss of disc height remaining mostpronounced at L3-4.Conus: The lower thoracic cord and conus remain unremarkable.T12-L1: There is no significant central canal or neural foraminalstenosis.L1-2: There is slight circumferential disc bulge. There is nosignificant central canal or neural foraminal stenosis.L2-3: There is slight circumferential disc bulge and right greaterthan left mild facet hypertrophy. There is no significant centralcanal or left neural foraminal stenosis. There is mild compromise ofthe right foramen.L3-4: There is a right side disc bulge that involves the mid anddistal right foramen. There is bilateral facet and some ligamentoushypertrophy that produce mild canal stenosis. There remains mild leftand moderate right compromise of foramina.L4-5: There is posterior disc bulge greater to the right with facetand ligamentous hypertrophy combining now for moderate canalstenosis. There remains mild left and moderate right compromise offoramina.L5-S1: There is posterior disc bulge with some facet hypertrophy.There is effacement of anterior epidural fat and mild narrowing ofthe transverse diameter of the canal from epidural fat but no greatercanal stenosis. There is mild left greater than right compromise offoramina.There remains a right S2 Tarlov cyst as normal-variant.IMPRESSION :Multifocal degenerative changes. There has been some progression tonow moderate canal stenosis at L4-5.Compromise of foramen remains most pronounced yet moderate to theright at L3-4 and L4-5.Interpreted within [facility] [place] [place] Normal [facility] [place], [place] Vital Signs Date Time Vital Sign Value Performing Clinician Facility 12-21-2023 09:57-0400 Body height 165.1 cm MD Star Recinos Work Phone: [facility] 12-21-2023 09:57-0400 Body mass index (BMI) [Ratio] 26.8 kg/m2 MD Star Recinos Work Phone: [facility] 12-21-2023 09:57-0400 Body temperature 97.8 [degF] MD Star Recinos Work Phone: [facility] 12-21-2023 09:57-0400 Body weight 73.02 kg MD Star Recinos Work Phone: [facility] 12-21-2023 09:57-0400 Diastolic blood pressure 70 mm[Hg] MD Star Recinos Work Phone: [facility] 12-21-2023 09:57-0400 Heart rate 77 /min MD Star Recinos Work Phone: [facility] 12-21-2023 09:57-0400 Respiratory rate 16 /min MD Star Recinos Work Phone: [facility] 12-21-2023 09:57-0400 SaO2% (BldA) [Mass fraction] 98 % MD Star Recinos Work Phone: [facility] 12-21-2023 09:57-0400 Systolic blood pressure 112 mm[Hg] MD Star Recinos Work Phone: [facility] 08-25-2023 11:36-0500 Blood Pressure Location Star RECINOS [facility] 08-25-2023 11:36-0500 Diastolic blood pressure 84 mm[Hg] Star RECINOS [facility] 08-25-2023 11:36-0500 Heart rate 79 /min Star RECINOS [facility] 08-25-2023 11:36-0500 Respiratory rate 16 /min Star RECINOS [facility] 08-25-2023 11:36-0500 Systolic blood pressure 134 mm[Hg] Star RECINOS [facility] 12-10-2022 16:07-0400 Body height 165.1 cm Kristyn Dougherty Work Phone: [facility] Work Phone: 12-10-2022 16:07-0400 Body mass index (BMI) [Ratio] 26.96 kg/m2 Kristyn Dougherty Work Phone: [facility] Work Phone: 12-10-2022 16:07-0400 Body surface area Derived from formula 1.81 m2 Kristyn Dougherty Work Phone: [facility] Work Phone: 12-10-2022 16:07-0400 Body weight 73.48 kg Kristyn Dougherty [facility] Work Phone: 04-29-2022 11:05-0400 Body height 163.83 cm Jing Campbell Work Phone: VU-GDAN-Fisy 2535A Work Phone: 04-29-2022 11:05-0400 Body mass index (BMI) [Ratio] 28.73 kg/m2 Jing Campbell Work Phone: XU-WSZV-Hfwm 2535A Work Phone: 04-29-2022 11:05-0400 Body surface area Derived from formula 1.84 m2 Jing Campbell Work Phone: EG-PTQM-Mzcg 2535A Work Phone: 04-29-2022 11:05-0400 Body temperature 97.5 [degF] Jing Campbell Work Phone: RM-QGZQ-Qwtg 2535A Work Phone: 04-29-2022 11:05-0400 Body weight 77.11 kg Jing Campbell Work Phone: FN-QELU-Vstn 2535A Work Phone: 04-29-2022 11:05-0400 Diastolic blood pressure 82 mm[Hg] Jing Campbell Work Phone: SO-CERU-Mpvr 2535A Work Phone: 04-29-2022 11:05-0400 Heart rate 72 /min Jing Campbell Work Phone: CJ-KXZG-Nycb 2535A Work Phone: 04-29-2022 11:05-0400 Respiratory rate 16 /min Jing Campbell Work Phone: mp-WSPC-Avon 2535A Work Phone: 04-29-2022 11:05-0400 SaO2% (BldA) [Mass fraction] 98 % Jing Campbell Work Phone: WO-UWCN-Hkol 2535A Work Phone: 04-29-2022 11:05-0400 Systolic blood pressure 130 mm[Hg] Jing Campbell Work Phone: SM-SYUQ-Zyjb 2535A Work Phone: 04-12-2022 11:45-0400 Body mass index (BMI) [Ratio] 27.79 kg/m2 Jing Campbell Work Phone: LR-PWYX-Ksxl 2535A Work Phone: 04-12-2022 11:45-0400 Body surface area Derived from formula 1.83 m2 Jing Campbell Work Phone: BV-PCMP-Vqub 2535A Work Phone: 04-12-2022 11:45-0400 Body temperature 98.2 [degF] Jing Campbell Work Phone: SR-QIOG-Qqoj 2535A Work Phone: 04-12-2022 11:45-0400 Body weight 75.75 kg Jing Campbell Work Phone: HJ-LEOQ-Zmgy 2535A Work Phone: 04-12-2022 11:45-0400 Diastolic blood pressure 80 mm[Hg] Jing Campbell Work Phone: DN-DQYB-Fyjz 2535A Work Phone: 04-12-2022 11:45-0400 Heart rate 72 /min Jing Campbell Work Phone: QY-DNOY-Efxg 2535A Work Phone: 04-12-2022 11:45-0400 Respiratory rate 18 /min Jing Campbell Work Phone: KR-RWLQ-Rsrx 2535A Work Phone: 04-12-2022 11:45-0400 SaO2% (BldA) [Mass fraction] 98 % Jing Campbell Work Phone: NN-OZEM-Rnhn 2535A Work Phone: 04-12-2022 11:45-0400 Systolic blood pressure 126 mm[Hg] Jing Campbell Work Phone: NS-EWTL-Hdpy 2532K Work Phone: 01-07-2022 09:18-0400 Body height 165.1 cm Jing Campbell Work Phone: [facility] Work Phone: 01-07-2022 09:18-0400 Body mass index (BMI) [Ratio] 28.11 kg/m2 Jing Campbell Work Phone: [facility] Work Phone: 01-07-2022 09:18-0400 Body surface area Derived from formula 1.84 m2 Jing Campbell Work Phone: [facility] Work Phone: 01-07-2022 09:18-0400 Body weight 76.61 kg Jing Campbell Work Phone: [facility] Work Phone: 01-07-2022 09:18-0400 Diastolic blood pressure 70 mm[Hg] Jing Campbell Work Phone: [facility] Work Phone: 01-07-2022 09:18-0400 Systolic blood pressure 118 mm[Hg] Jing Campbell Work Phone: [facility] Work Phone: 11-20-2021 13:51-0400 Body height 165.1 cm Jing Campbell Work Phone: [facility] Work Phone: 11-20-2021 13:51-0400 Body mass index (BMI) [Ratio] 28.62 kg/m2 Jing Campbell Work Phone: [facility] Work Phone: 11-20-2021 13:51-0400 Body surface area Derived from formula 1.86 m2 Jing Campbell Work Phone: [facility] Work Phone: 11-20-2021 13:51-0400 Body weight 78.02 kg Jing Campbell Work Phone: [facility] Work Phone: 11-20-2021 13:51-0400 Diastolic blood pressure 80 mm[Hg] Jing Campbell Work Phone: [facility] Work Phone: 11-20-2021 13:51-0400 Systolic blood pressure 110 mm[Hg] [facility] Work Phone: 10-29-2021 11:29-0400 Body mass index (BMI) [Ratio] 28.62 kg/m2 Jing Campbell Work Phone: LB-WCHZ-Zcrz 7305B Work Phone: 10-29-2021 11:29-0400 Body surface area Derived from formula 1.86 m2 Jing Campbell Work Phone: WV-GZIA-Hriv 2535A Work Phone: 10-29-2021 11:29-0400 Body temperature 98.2 [degF] Jing Campbell Work Phone: PL-RZXS-Nwgs 2535A Work Phone: 10-29-2021 11:29-0400 Body weight 78.02 kg Jing Campbell Work Phone: AO-BROK-Bqyk 2535A Work Phone: 10-29-2021 11:29-0400 Diastolic blood pressure 72 mm[Hg] Jing Campbell Work Phone: LQ-MMRN-Vxqm 2535A Work Phone: 10-29-2021 11:29-0400 Heart rate 76 /min Jing Campbell Work Phone: IF-PHOP-Qwst 2535A Work Phone: 10-29-2021 11:29-0400 Respiratory rate 18 /min Jing Campbell Work Phone: US-INID-Ooau 2535A Work Phone: 10-29-2021 11:29-0400 SaO2% (BldA) [Mass fraction] 98 % Jing Campbell Work Phone: PL-QGTN-Hnno 2535A Work Phone: 10-29-2021 11:29-0400 Systolic blood pressure 122 mm[Hg] Jing Campbell Work Phone: OY-VALW-Ahqt 2535A Work Phone: 05-08-2021 11:20-0400 Diastolic blood pressure 82 mm[Hg] Jing Campbell Work Phone: PK-YGJS-Zzxr 2535A Work Phone: 05-08-2021 11:20-0400 Systolic blood pressure 130 mm[Hg] Jing Campbell Work Phone: DS-BACO-Kkco 2535A Work Phone: 05-08-2021 10:35-0400 Body height 165.1 cm Jing Campbell Work Phone: WF-HQAA-Wjky 2535A Work Phone: 05-08-2021 10:35-0400 Body mass index (BMI) [Ratio] 28.62 kg/m2 Jing Campbell Work Phone: HH-HWZP-Anmn 2535A Work Phone: 05-08-2021 10:35-0400 Body surface area Derived from formula 1.86 m2 Jing Campbell Work Phone: PQ-KPNJ-Wxfo 2535A Work Phone: 05-08-2021 10:35-0400 Body temperature 97.5 [degF] Jing Campbell Work Phone: CR-JQRU-Ukjd 2535A Work Phone: 05-08-2021 10:35-0400 Body weight 78.02 kg Jing Campbell Work Phone: XW-XRZP-Yqrz 2535A Work Phone: 05-08-2021 10:35-0400 Diastolic blood pressure 84 mm[Hg] Jing Campbell Work Phone: RI-YJKM-Mefk 2535A Work Phone: 05-08-2021 10:35-0400 Heart rate 80 /min Jing Campbell Work Phone: CM-RSQH-Ymyy 2535A Work Phone: 05-08-2021 10:35-0400 Respiratory rate 16 /min Jing Campbell Work Phone: WL-AEPW-Jsfp 2535A Work Phone: 05-08-2021 10:35-0400 SaO2% (BldA) [Mass fraction] 98 % Jing Campbell Work Phone: KL-UTTA-Tgpi 0320A Work Phone: 05-08-2021 10:35-0400 Systolic blood pressure 144 mm[Hg] Jing Campbell Work Phone: VM-UKXV-Mqvt 9796C Work Phone: 04-20-2021 09:27-0400 Body height 165.1 cm Jing Campbell Work Phone: [facility] Work Phone: 04-20-2021 09:27-0400 Body mass index (BMI) [Ratio] 28.29 kg/m2 Jing Campbell Work Phone: [facility] Work Phone: 04-20-2021 09:27-0400 Body surface area Derived from formula 1.85 m2 Jing Campbell Work Phone: [facility] Work Phone: 04-20-2021 09:27-0400 Body temperature 97.3 [degF] Jnig Campbell Work Phone: [facility] Work Phone: 04-20-2021 09:27-0400 Body weight 77.11 kg Jing Campbell Work Phone: [facility] Work Phone: 04-20-2021 09:27-0400 Diastolic blood pressure 93 mm[Hg] Jing Campbell Work Phone: [facility] Work Phone: 04-20-2021 09:27-0400 Heart rate 69 /min Jing Campbell Work Phone[facility] Work Phone: 04-20-2021 09:27-0400 Systolic blood pressure 139 mm[Hg] Jing Campbell Work Phone: [facility] Work Phone: 04-04-2021 09:17-0400 Body height 165.1 cm Jing Campbell Work Phone: FF-QNIA-Larz 2535A Work Phone: 04-04-2021 09:17-0400 Body mass index (BMI) [Ratio] 28.46 kg/m2 Jing Campbell Work Phone: QG-HPCA-Ygal 2535A Work Phone: 04-04-2021 09:17-0400 Body surface area Derived from formula 1.85 m2 Jing Campbell Work Phone: KM-BAXP-Rufk 2535A Work Phone: 04-04-2021 09:17-0400 Body temperature 97.7 [degF] Jing Campbell Work Phone: EJ-WQXH-Cttq 2535A Work Phone: 04-04-2021 09:17-0400 Body weight 77.57 kg Jing Campbell Work Phone: UJ-FENL-Sjkk 2535A Work Phone: 04-04-2021 09:17-0400 Diastolic blood pressure 84 mm[Hg] Jing Campbell Work Phone: FO-LRQN-Xwae 2535A Work Phone: 04-04-2021 09:17-0400 Heart rate 68 /min Jing Campbell Work Phone: LT-XKXB-Tnnc 2535A Work Phone: 04-04-2021 09:17-0400 Respiratory rate 18 /min Jing Campbell Work Phone: EM-APLK-Xweu 2535A Work Phone: 04-04-2021 09:17-0400 SaO2% (BldA) [Mass fraction] 98 % Jing Campbell Work Phone: UE-DNWC-Fxkr 2535A Work Phone: 04-04-2021 09:17-0400 Systolic blood pressure 128 mm[Hg] Jing Saud Garciaey Work Phone: DN-SUVA-Yvsz 2535A Work Phone: 03-20-2021 15:27-0400 Body height 166.37 cm Jing Saud Garciaey Work Phone: MQ-IMBY-Dppd 2535A Work Phone: 03-20-2021 15:27-0400 Body mass index (BMI) [Ratio] 27.04 kg/m2 Jing Garciaey Work Phone: RX-HDTI-Dlpo 2535A Work Phone: 03-20-2021 15:27-0400 Body surface area Derived from formula 1.83 m2 Jing Garciaey Work Phone: HD-JRGU-Pkcr 2535A Work Phone: 03-20-2021 15:27-0400 Body weight 74.84 kg Jingbryce Garciaey Work Phone: EG-XQYE-Dccq 2535A Work Phone: 02-20-2021 10:54-0400 Body mass index (BMI) [Ratio] 27.12 kg/m2 Jing Campbell Work Phone: VF-JBRT-Bzco 2535A Work Phone: 02-20-2021 10:54-0400 Body surface area Derived from formula 1.81 m2 Jing Campbell Work Phone: KH-MCNL-Olav 2535A Work Phone: 02-20-2021 10:54-0400 Body temperature 97.2 [degF] Jing Campbell Work Phone: GV-PXLO-Babh 2535A Work Phone: 02-20-2021 10:54-0400 Body weight 73.94 kg Jing Campbell Work Phone: BC-YKYB-Tdxp 2535A Work Phone: 02-20-2021 10:54-0400 Diastolic blood pressure 78 mm[Hg] Jing Campbell Work Phone: RK-BKPD-Nwgx 2535A Work Phone: 02-20-2021 10:54-0400 Heart rate 72 /min Jing Campbell Work Phone: GB-MVPP-Pgjj 2535A Work Phone: 02-20-2021 10:54-0400 Respiratory rate 16 /min Jing Campbell Work Phone: EJ-EMSK-Qeou 2535A Work Phone: 02-20-2021 10:54-0400 SaO2% (BldA) [Mass fraction] 98 % Jing Campbell Work Phone: VW-NIBN-Prfl 2535A Work Phone: 02-20-2021 10:54-0400 Systolic blood pressure 128 mm[Hg] iJng Campbell Work Phone: LY-CITE-Rplw 2535A Work Phone: 12-27-2020 09:29-0400 Body mass index (BMI) [Ratio] 26.29 kg/m2 Jing Campbell Work Phone: HG-QHMD-Ocpo 2535A Work Phone: 12-27-2020 09:29-0400 Body surface area Derived from formula 1.79 m2 Jing Campbell Work Phone: XF-AQJW-Yynv 2535A Work Phone: 12-27-2020 09:29-0400 Body temperature 97.8 [degF] Jing Campbell Work Phone: LU-DLEF-Tkpd 2535A Work Phone: 12-27-2020 09:29-0400 Body weight 71.67 kg Jing Campbell Work Phone: BI-LVSI-Isjx 2532V Work Phone: 12-27-2020 09:29-0400 Diastolic blood pressure 82 mm[Hg] Jing Campbell Work Phone: LS-HQOF-Xufm 2537P Work Phone: 12-27-2020 09:29-0400 Heart rate 72 /min Jing Campbell Work Phone: WR-QEMX-Guaf 2533S Work Phone: 12-27-2020 09:29-0400 Respiratory rate 16 /min Jing Campbell Work Phone: EF-OJGT-Maqk 2535D Work Phone: 12-27-2020 09:29-0400 SaO2% (BldA) [Mass fraction] 97 % Jing Campbell Work Phone: LI-SMWP-Ngzd 2535A Work Phone: 12-27-2020 09:29-0400 Systolic blood pressure 132 mm[Hg] Jing Campbell Work Phone: HJ-TPJO-Fceo 2535A Work Phone: Encounters Encounter Date Encounter Type Care Provider Facility Start: 05-03-2024 ambulatory Star Macias ty:[id number] Start: 04-21-2024 End: 04-21-2024 ambulatory Kristyn Jean[facility] Start: 03-31-2024 End: 03-31-2024 ambulatory Kristyn Jean[facility] Start: 03-17-2024 End: 03-17-2024 ambulatory Kristyn Ladonna Facility:[facility] Start: 03-10-2024 End: 03-10-2024 ambulatory Kristyn Ladonna Facility:[facility] Start: 03-04-2024 ambulatory Jadyn Ghazoul Facility :[facility] Start: 03-04-2024 End: 03-04-2024 ambulatory Jadyn Ghazoul Facility:[facility] Start: 02-18-2024 End: 02-18-2024 ambulatory Jadyn Ghazoul Facility:[facility] Start: 02-04-2024 End: 02-04-2024 ambulatory Jadyn Ghazoul Facility:[facility] Start: 01-20-2024 End: 01-20-2024 ambulatory Jadyn Ghazoul Facility:[facility] Start: 01-16-2024 End: 01-16-2024 ambulatory [facility] Start: 12-21-2023 End: 12-21-2023 ambulatory MD Star Recinos Work Phone: [facility] Work Phone: Start: 12-21-2023 End: 12-21-2023 Patient encounter procedure MD Star Recinos Work Phone: [facility] Work Phone: Start: 11-18-2023 End: 11-18-2023 ambulatory TANIA ARREDONDO Not Available Start: 11-04-2023 End: 11-04-2023 ambulatory Star RECINOS [place] [place] Start: 11-04-2023 End: 11-04-2023 Lab Drop off Star RECINOS [facility] Start: 11-04-2023 End: 11-04-2023 ambulatory Star RECINOS Facility:[facility] Start: 11-04-2023 End: 11-04-2023 Patient encounter procedure Star RECINOS [facility] Start: 10-09-2023 ambulatory Star R RECINOS Facili ty:CD:[id number] Start: 10-06-2023 End: 10-06-2023 ambulatory Starvamsi RECINOS Facility:[facility] Start: 10-06-2023 End: 10-06-2023 Patient encounter procedure Star R JORJE [facility] Start: 09-25-2023 End: 09-25-2023 ambulatory Star Jorje Facility:[facility] Start: 09-25-2023 End: 09-25-2023 Departed Referred MD Star Recinos Work Phone: [facility] Start: 09-25-2023 End: 09-25-2023 ambulatory Star Saud JORJE Facility:CD:[id number] Start: 09-08-2023 End: 09-08-2023 ambulatory Star R RECINOS Facility:CD:[id number] Start: 08-25-2023 End: 08-25-2023 ambulatory Star RECINOS Facility:[facility] Start: 08-25-2023 End: 08-25-2023 Patient encounter procedure Starvamsi RECINOS [facility] Start: 05-27-2023 ambulatory Star RECINOS Facility :[facility] Start: 03-28-2023 End: 03-28-2023 ambulatory Lawrence MEDINA Facility:[facility] Start: 03-28-2023 End: 03-28-2023 Patient encounter procedure Lawrence Medina MD Work Phone: Plastic Surgery Comment on above: Breast pain (Primary Dx); Acquired breast deformity; Capsular contracture of breast implant, initial encounter Start: 03-25-2023 End: 03-25-2023 ambulatory Lawrence MEDINA Facility:[facility] Start: 02-11-2023 Patient encounter procedure Kristyn Dougherty [facility] Phone: [facility] Work Phone: Start: 02-11-2023 ambulatory MD SANDRA TAYLOR Facility: [id number] Start: 01-17-2023 ambulatory MD CARLITO HORVATH [facility] Start: 01-17-2023 ambulatory MD CARLITO HORVATH Facility:[id number] Start: 01-07-2023 ambulatory MD SANDRA TAYLOR Facility: [id number] Start: 12-18-2022 ambulatory KRISTYN DOUGHERTY Facility: H1 Start: 12-17-2022 ambulatory MD SANDRA TAYLOR Facility: [id number] Start: 12-10-2022 Patient encounter procedure Kristyn Dougherty Work Phone: [facility] Work Phone: Start: 12-10-2022 ambulatory DO JING CAMPBELL Facility:[id number] Start: 11-28-2022 End: 11-29-[address] ILDEFONSO HO Facility:H1 Start: 10-18-2022 End: 10-19-2022 ambulatory KRISTYN DOUGHERTY Facility:[facility] Start: 08-17-2022 End: 08-18-[address] ILDEFONSO HO Facility:H1 Start: 07-05-2022 End: 07-05-2022 ambulatory KRISTYN DOUGHERTY Facility:[facility] Start: 06-28-2022 End: 06-28-2022 ambulatory KRISTYN DOUGHERTY Facility:H1 Start: 05-01-2022 Chart Update Jing canseco Work Phone: XB-VCKI-Mvdq 6152B Work Phone: Start: 04-29-2022 ambulatory DO JING CAMPBELL Facility:[id number] Start: 04-29-2022 Current tobacco non- user cad cap copd pv dm Jing Campbell Work Phone: BQ-PENE-Pcrs 1500V Work Phone: Start: 04-16-2022 Chart Update Jing canseco Work Phone: RL-UQYG-Txsx 2535A Work Phone: Start: 04-12-2022 Patient encounter procedure Jing Campbell Work Phone: GI-XWNQ-Fcmc 2535A Work Phone: Start: 04-12-2022 ambulatory DO JING JOE SANDOVALManuel CAMPBELL Facility:[id number] Start: 01-07-2022 Office outpatient vi sit 15 minutes [facility]ing [facility] Work [facility]: Start: 11-30-2021 AUDIT Jing canseco Work Phone: BC-PHRA-Vwrd 2535A Work Phone: Start: 11-28-2021 AUDIT Jing canseco Work Phone: OO-QFDV-Sgkj 2535A Work Phone: Start: 11-26-2021 Chart Update Jing canseco Work Phone: FR-LWQL-Uzzt 2535A Work Phone: Start: 11-20-2021 Office outpatient ne w 45 minutes Jing Campbell Work Phone: [facility] Work Phone: Start: 10-29-2021 Office outpatient vi sit 25 minutes Jing Campbell Work Phone: OB-WBNG-Rugs 2535A Work Phone: Start: 05-08-2021 Current tobacco non- user cad cap copd pv dm Jing Campbell Work Phone: EO-NPKK-Yrjf 2535A Work Phone: Start: 04-20-2021 Office consultation new/estab patient 60 min Jing Campbell Work Phone: [facility] Work Phone: Start: 04-04-2021 Office outpatient vi sit 25 minutes Jing Campbell Work Phone: PP-JNIL-Jsvg 2535A Work Phone: Start: 03-13-2021 AUDIT Jing canseco Work Phone: FL-RPPX-Dare 2535A Work Phone: Start: 02-26-2021 AUDIT Jing canseco Work Phone: LT-WPIV-Yzzx 2535A Work Phone: Start: 02-23-2021 Chart Update Jing canseco Work Phone: CM-BHAS-Ztuv 2535A Work Phone: Start: 02-20-2021 Office outpatient vi sit 25 minutes Jing Campbell Work Phone: VY-APOW-Tnrw 2535A Work Phone: Start: 02-20-2021 Patient encounter procedure Jing Campbell Work Phone: MN-XSRE-Oqco 2535A Work Phone: Start: 12-27-2020 Office outpatient vi sit 25 minutes Jing Campbell Work Phone: UZ-VIIF-Hown 2535A Work Phone: Start: 07-10-2020 Patient encounter procedure Jing Campbell KE-FPZP-Bcna 2535A Work Phone: Start: 02-11-2020 Patient encounter procedure Jing Campbell VF-TZBL-Memx 2535A Work Phone: Start: 07-01-2019 Patient encounter procedure Jing Campbell IE-ADYY-Kcwr 2535A Work Phone: Start: 05-19-2019 Patient encounter procedure Jing Campbell UU-CFVA-Zpld 2535A Work Phone: Start: 05-10-2019 Patient encounter procedure Jing Campbell LM-UAPX-Vtpd 2535A Work Phone: Start: 08-25-2018 Patient encounter procedure JUAN RUTHERFORD Facility:8 Start: 05-07-2018 Patient encounter procedure JING CAMPBELL Facility:3 Start: 10-18-2017 Ambulatory Jing [place] [place] Procedure Procedure Detail Performing Clinician Cataract surgery Jing portillo Comment on above: bilateral 2015; Decompression of med melchor nerve Star RECINOS Excision of breast Star W ATEMOUNA Extraction of cataract Patri ck JORJE Extraction of wisdom tooth P atrick JORJE History of total hysterectomy with bilateral salpingo-oophorectomy Star RECINOS Ligation of fallopian tube M tito Campbell Work Phone: Ligation of varicose vein Lauren Campbell Procedure on back Star WA TERS Procedure on neck Star WA TERS Tonsillectomy and adenoidectomy Jing Campbell Comment on above: uvula also removed; Total hysterectomy Jing Campbell Work Phone: Comment on above: 1981 - due AUB and e nloarged ovarian cyst; Plan of Treatment Date Care Activity Detail Author Start: 03-28-2023 Influenza vaccination INFLUENZA (#1) [facility] Start: 01-07-2023 FUV, Provider: Sandra Taylor, Status: Pen, Time: 9:45 AM FUV, Provider: Sandra Taylor, Status: Pen, Time: 9:45 AM [facility] Work Phone: Start: 10-29-2022 EPV, Provider: Jing Campbell, Status: Pen, Time: 10:40 AM EPV, Provider: Jing Campbell, Status: Pen, Time: 10:40 AM WV-AVPK-Pquk 2535A Work Phone: Start: 07-28-2022 ADVANCE DIRECTIVE DISCUSSION ADVANCE DIRECTIVE DISCUSSION [facility] Start: 07-28-2022 DEPRESSION ASSESSMENT DEPRESSION ASSESSMENT [facility] Start: 04-29-2022 MCRINITIAL, Provider: Jing Campbell, Status: Pen, Time: 10:40 AM MCRINITIAL, Provider: Jing Campbell, Status: Pen, Time: 10:40 AM DH-AAKB-Uiep 2535A Work Phone: Start: 01-07-2022 FUV, Provider: Efra Barnett, Status: Pen, Time: 9:15 AM FUV, Provider: Efra Barnett, Status: Pen, Time: 9:15 AM -[facility] Work Phone: Start: 12-05-2021 NPV, Provider: Efra Barnett, Status: Pen, Time: 9:30 AM NPV, Provider: Efra Barnett, Status: Pen, Time: 9:30 AM FG-CQCA-Ublb 2535A Work Phone: Start: 07-16-2021 COVID-19 VACCINE (4 - Moderna series) COVID-19 VACCINE (4 - Moderna series) [facility] Start: 05-08-2021 Patient encounter procedure MCRANNUAL, Provider: Jing Campbell, Status: Pen, Time: 10:20 AM [id number]-[id number] 2535A Work Phone: Start: 04-20-2021 NPV, Provider: Allyn Ba, Status: Pen, Time: 9:30 AM NPV, Provider: Allyn Ba, Status: Pen, Time: 9:30 AM [facility] Work Phone: Start: 04-04-2021 MCRINITIAL, Provider: Jing Campbell, Status: Pen, Time: 9:20 AM MCRINITIAL, Provider: Jing Campbell, Status: Pen, Time: 9:20 AM PJ-ECVR-Kxjy 2535A Work Phone: Start: 03-20-2021 NPV, Provider: Juan Rutherford, Status: Pen, Time: 2:30 PM NPV, Provider: Juan Rutherford, Status: Pen, Time: 2:30 PM [facility] Work Phone: Start: 02-16-2021 NPV, Provider: Allyn Ba, Status: Pen, Time: 8:00 AM NPV, Provider: Allyn Ba, Status: Pen, Time: 8:00 AM [id number] Work Phone: Start: 2014 BONE DENSITY BONE DENSITY [facility] Start: 2014 PNEUMOCOCCAL: 65+ (1 - PCV) PNEUMOCOCCAL: 65+ (1 - PCV) [facility] Start: 11-08-1999 SHINGRIX VACCINE (1 of 2) SHINGRIX VACCINE (1 of 2) [facility] Start: 1994 COLOGUARD (FIT-DNA) COLOGUARD (FIT-DNA) [facility] Start: 1994 Colonoscopy COLONOSCOPY [facility] Start: 1994 COLORECTAL CANCER SCREENING COLORECTAL CANCER SCREENING [facility] Start: [address] COLONOGRAPHY [facility] Start: 1994 DIABETES SCREEN DIABETES SCREEN [facility] Start: 1994 FECAL OCCULT BLOOD FECAL OCCULT BLOOD [facility] Start: 1994 LIPID SCREEN LIPID SCREEN [facility] Start: 1994 SIGMOIDOSCOPY SIGMOIDOSCOPY [facility] Start: 1989 Mammography MAMMOGRAM [facility] Start: 1968 Urine microalbumin profile DTAP,TDAP,TD (1 - Tdap) [facility] Start: 11-08-1967 HEPATITIS C SCREENING HEPATITIS C SCREENING [facility] Immunizations Immunization Date Immunization Notes Care Provider Keila schneider 04-12-2022 Fluzone High-Dose Quadrivalent 0.7 ML Intramuscular Suspension Prefilled Syringe; Translations: [Fluzone High-Dose Quadrivalent 0.7 ML Intramuscular Suspension Prefilled Syringe] Jing Campbell Work Phone: [id number] [id number] Work Phone: Comment on above: Series: 05-21-2021 Moderna COVID-19 Vac cine 100 MCG/0.5ML Intramuscular Suspension Jing Campbell Work Phone: GH-MJYW-Cmvp 2535A Work Phone: Comment on above: Series: 04-04-2021 influenza, high dose seasonal, preservative-free; Translations: [Fluzone High-Dose 0.5 ML Intramuscular Suspension Prefilled Syringe] Jing Campbell Work Phone: VY-ONZX-Lgej 2532D Work Phone: Comment on above: Series: 10-27-2020 Moderna COVID-19 Vac cine 100 MCG/0.5ML Intramuscular Suspension Jing Campbell Work Phone: GC-QKPH-Qtcl 2534Y Work Phone: Comment on above: Series: 09-22-2020 Moderna COVID-19 Vac cine 100 MCG/0.5ML Intramuscular Suspension Jing Campbell Work Phone: CM-MAVZ-Drbt 2534H Work Phone: 03-20-2020 influenza, injectabl e, quadrivalent, preservative free Jing Campbell Work Phone: KF-FIMA-Apoi 2536W Work Phone: 05-19-2019 influenza, high dose seasonal, preservative-free; Translations: [Fluzone High-Dose 0.5 ML Intramuscular Suspension Prefilled Syringe] Jing Campbell ZN-CMRV-Csqg 2530G Work Phone: Comment on above: Series: 05-10-2019 pneumococcal polysaccharide vaccine, 23 valent; Translations: [Pneumococcal polysaccharide vaccine, 23 valent] Jing Campbell AI-NRBR-Bjgz 2534Z Work Phone: Comment on above: Series: 03-12-2018 influenza, high dose seasonal, preservative-free Jing Campbell Work Phone: UC-DPJE-Okla 2536I Work Phone: 05-08-2016 pneumococcal conjuga te vaccine, 13 valent Jing Campbell Work Phone: KN-AGYD-Ysms 2643M Work Phone: Comment on above: Series: 06-21-2014 pneumococcal polysaccharide vaccine, 23 valent Jing Villavicencio Adrian Work Phone: KZ-WIFF-Xyxu 2532L Work Phone: 06-21-2014 zoster vaccine, live Hayley Campbell Work Phone: YO-XAWW-Vggj 2532V Work Phone: Payers Date Payer Category Payer Self-pay 2021 Unknown 2014 Medicare MEDICARE MEDICAR E A AND B [id number] 2014-Present [phone] [place] [address] Medicare [id number] 1992 Medicare [id number] 1959 Medicare [id number] 1959 Unknown [id number] 1949 Unknown [id number] 2.16.840.1.860906.3.579.2.355 1949 Unknown [id number] 2.16.840.1.041019.3.579.2.355 1949 Unknown [id number] 2.16.840.1.461984.3.579.2.593 1949 Unknown [id number] 2.16.840.1.487478.3.579.2.593 1949 Unknown [id number] 2.16.840.1.608917.3.579.2.59 1949 Unknown [id number] 2.16.840.1.294284.3.579.2.593 1949 Unknown [id number] 2.16.840.1.635404.3.579.2.593 1949 Unknown [id number] 2.16.840.1.761183.3.579.2.593 1949 Unknown [id number] 2.16.840.1.921574.3.579.2.1069 1949 Unknown [id number] 2.16.840.1.953764.3.579.2.356 1949 Unknown [id number] 2.16.840.1.804753.3.579.2.356 1949 Unknown [id number] 2.16.840.1.663882.3.579.2.356 1949 Unknown [id number] 2.16.840.1.807406.3.579.2.356 1949 Unknown [id number] 2.16.840.1.848912.3.579.2.356 1949 Unknown [id number] 2.16.840.1.591856.3.579.2.356 1949 Unknown [id number] 2.16.840.1.220550.3.579.2.356 1949 Unknown [id number] 2.16.840.1.139477.3.579.2.1259 1949 Unknown [id number] 2.16.840.1.318002.3.579.2.1245 1949 Unknown [id number] 2.16.840.1.600744.3.579.2.1243 1949 Unknown [id number] 2.16.840.1.473833.3.579.2.727 1949 Unknown [id number] 2.16.840.1.018593.3.579.2.727 1949 Unknown [id number] 2.16.840.1.897053.3.579.2.727 1949 Unknown [id number] 2.16.840.1.563402.3.579.2.727 1949 Unknown [id number] 2.16.840.1.959024.3.579.2.727 1949 Unknown [id number] 2.16.840.1.853265.3.579.2.727 1949 Unknown [id number] 2.16.840.1.446654.3.579.2.727 Unknown [id number] Unknown [id number] 2.16.840.1.668599.3.579.2.531 Unknown [id number] 2.16.840.1.373063.3.579.2.462 Unknown [id number] 2.16.840.1.225570.3.579.2.462 Unknown [id number] 2.16.840.1.450741.3.579.2.462 Unknown [id number] 2.16.840.1.867179.3.579.2.462 Unknown [id number] 2.16.840.1.602866.3.579.2.462 Unknown [id number] 2.16.840.1.451095.3.579.2.462 Unknown [id number] 2.16.840.1.420878.3.579.2.462 Unknown [id number] 2.16.840.1.354068.3.579.2.462 Unknown [id number] 2.16.840.1.484484.3.579.2.462 Social History Date Type Detail Facility Start: 03-11-2022 End: 02-24-2023 Former smoker Former smoker ZL-LETE-Svpu 2535A Work Phone: Start: 05-30-2014 End: 08-25-2023 Tobacco smoking status DCIS Ex-smoker [facility] History of tobacco use Current smoker [facility] Start: 03-11-2022 Alcohol intake Current drinke r of alcohol (finding) [facility] Start: 03-11-2022 End: 02-24-2023 Tobacco use panel [facility] National Score (1-100), lower number is lower risk 91 [facility] Start: 05-30-2014 Tobacco Comment quit 7 years ago [facility] Start: 05-30-[address] [facility] Start: 1950 Sex Assigned At Not on file C [facility] Start: 1950 Sex Assigned At Female F [facility] NEGATED: Highlighted row - - Arideas- WSPC-Laila [id number] Work Phone: Medical Equipment Procedure Code Equipment Code Equipment Origin al Text Equipment Identifier Dates Lens Iol +15.50 Acrsf 13mm 6mm - [id number]_[facility] Start: 04-11-2015 Lens Iol +14 Salvador p 0 D Bcnvx 13 - [id number]_[facility] Start: 04-25-2015 Functional Status Date Assessment Result Facility 10-06-2023 Functional Status N/A [facility] 08-25-2023 Functional Status N/A [facility] NEGATED: Highlighted row Functional performance Functional status health issues are not documented Disease WV-UIKC-Ntwa 2532B Work Phone: Mental Status Date Assessment Result Facility NEGATED: Highlighted row Cognitive function [Interpretation] Cognitive status health issues are not documented Disease QN-QEKS-Nqum 1628V Work Phone: Clinical Notes 12-28-2020 to 03-04-2024 Lawrence Medina MD - 03/28/2023 10:39 AM EDT Note Date & Type Note Facility 03-04-2024 Note [facility] Medical Records Department [address] [place] [id number] History Physical Exam 03/04/24 0715 MR#: [id number] Acct: [id number] Name: BRIGITTE HIGH Rep #: [id number] : 1950 73 From: Jadyn Chavez MD PCP: MITCHEL BrownC Status:REG [facility] Location: [place] [address] History and Physical Date of Admission: 03/04/24 The patient is examined and there are no changes from the H P dated 02/12/2024. The patient presents for right breast lift for symmetry and revision left breast reconstruction. Informed consent is obtained and patient is marked in the preop holding area. Assessment Plan Assessment/Plan (1) Breast asymmetry between [facility] breast and reconstructed breast: PLAN: Patient for right breast lift for symmetry (2) Painful periwound skin: PLAN: Patient for revision left breast reconstruction (3) Ptosis of right breast: (4) Status post left breast reconstruction: (5) History of breast cancer in adulthood: 03/04/24 0718 Cosigner Signature (if applicable): CC: DOUG Dougherty; Dr. Jadyn Chavez MD Signed [facility] 11-04-2023 Evaluation + Plan note Diagnostic Tests PendingUrine Culture 11/04/23 [facility] 10-06-2023 Hospital Discharge instructions Patient Education 10/06/2023 17:14:42 Kegel Exercises Kegel Exercises Kegel exercises can help strengthen your pelvic floor muscles. The pelvic floor is a group of muscles that support your rectum, small intestine, and bladder. In females, pelvic floor muscles also help support the uterus. These muscles help you control the flow of urine and stool (feces). Kegel exercises are painless and simple. They do not require any equipment. Your provider may suggest Kegel exercises to: Improve bladder and bowel control. Improve sexual response. Improve weak pelvic floor muscles after surgery to remove the uterus (hysterectomy) or after , in females. Improve weak pelvic floor muscles after prostate gland removal or surgery, in males. Kegel exercises involve squeezing your pelvic floor muscles. These are the same muscles you squeeze when you try to stop the flow of urine or keep from passing gas. The exercises can be done while sitting, standing, or lying down, but it is best to vary your position. Ask your health care provider which exercises are safe for you. Do exercises exactly as told by your health care provider and adjust them as directed. Do not begin these exercises until told by your health care provider. Exercises How to do Kegel exercises: 1.Squeeze your pelvic floor muscles tight. You should feel a tight lift in your rectal area. If you are a female, you should also feel a tightness in your vaginal area. Keep your stomach, buttocks, and legs relaxed. 2.Hold the muscles tight for up to 10 seconds. 3.Breathe normally. 4.Relax your muscles for up to 10 seconds. 5.Repeat as told by your health care provider. Repeat this exercise daily as told by your health care provider. Continue to do this exercise for at least 4 6 weeks, or for as long as told by your health care provider. You may be referred to a physical therapist who can help you learn more about how to do Kegel exercises. Depending on your condition, your health care provider may recommend: Varying how long you squeeze your muscles. Doing several sets of exercises every day. Doing exercises for several weeks. Making Kegel exercises a part of your regular exercise routine. This information is not intended to replace advice given to you by your health care provider. Make sure you discuss any questions you have with your health care provider. Document Revised: 11/22/2021 Document Reviewed: 11/22/2021 [employer] Patient Education 2022 [employer]. Follow Up Care 09/09/2023 14:36:29 With:JORJE FIGUEROA, Star Villavicencio, URL Address: [facility] [address] [place] [address]- [phone] When: Unknown Comments:toro call pt to review updated path [facility] 08-25-2023 Hospital Discharge instructions Patient Education 08/25/2023 13:11:13 Urinary Tract Infection, Adult, Ljcu-bv-Qwxd Urinary Tract Infection, Adult A urinary tract infection (UTI) is an infection of any part of the urinary tract. The urinary tract includes: The kidneys. The ureters. The bladder. The urethra. These organs make, store, and get rid of pee (urine) in the body. What are the causes? This infection is caused by germs (bacteria) in your genital area. These germs grow and cause swelling (inflammation) of your urinary tract. What increases the risk? The following factors may make you more likely to develop this condition: Using a small, thin tube (catheter) to drain pee. Not being able to control when you pee or poop (incontinence). Being female. If you are female, these things can increase the risk: ?Using these methods to prevent : ?A medicine that kills sperm (spermicide). ?A device that blocks sperm (diaphragm). ?Having low levels of a female hormone (estrogen). ?Being . You are more likely to develop this condition if: You have genes that add to your risk. You are sexually active. You take antibiotic medicines. You have trouble peeing because of: ?A prostate that is bigger than normal, if you are male. ?A blockage in the part of your body that drains pee from the bladder. ?A kidney stone. ?A nerve condition that affects your bladder. ?Not getting enough to drink. ?Not peeing often enough. You have other conditions, such as: ?Diabetes. ?A weak disease-fighting system (immune system). ?Sickle cell disease. ?Gout. ?Injury of the spine. What are the signs or symptoms? Symptoms of this condition include: Needing to pee right away. Peeing small amounts often. Pain or burning when peeing. Blood in the pee. Pee that smells bad or not like normal. Trouble peeing. Pee that is cloudy. Fluid coming from the vagina, if you are female. Pain in the belly or lower back. Other symptoms include: Vomiting. Not feeling hungry. Feeling mixed up (confused). This may be the first symptom in older adults. Being tired and grouchy (irritable). A fever. Watery poop (diarrhea). How is this treated? Taking antibiotic medicine. Taking other medicines. Drinking enough water. In some cases, you may need to see a specialist. Follow these instructions at home: Medicines Take ktbl-qci-njfgpii and prescription medicines only as told by your doctor. If you were prescribed an antibiotic medicine, take it as told by your doctor. Do not stop taking it even if you start to feel better. General instructions Make sure you: ?Pee until your bladder is empty. ?Do not hold pee for a long time. ?Empty your bladder after sex. ?Wipe from front to back after peeing or pooping if you are a female. Use each tissue one time when you wipe. Drink enough fluid to keep your pee pale yellow. Keep all follow-up visits. Contact a doctor if: You do not get better after 1 2 days. Your symptoms go away and then come back. Get help right away if: You have very bad back pain. You have very bad pain in your lower belly. You have a fever. You have chills. You feeling like you will vomit or you vomit. Summary A urinary tract infection (UTI) is an infection of any part of the urinary tract. This condition is caused by germs in your genital area. There are many risk factors for a UTI. Treatment includes antibiotic medicines. Drink enough fluid to keep your pee pale yellow. This information is not intended to replace advice given to you by your health care provider. Make sure you discuss any questions you have with your health care provider. Document Revised: 02/23/2021 Document Reviewed: 02/23/2021 [employer] Patient Education 2022 [employer]. Follow Up Care 05/27/2023 09:36:14 With:JORJE FIGUEROA, Star Villavicencio, URL Address: [facility] [address], [place] [address]- [phone] When: Unknown Comments:sched cysto/UD [facility]25-2023 Note Chief Complaint furuncle HPI Staff Referral for urinary frequency and caruncle by Kristyn Dougherty CNP. Pt states that she has had this for about 10 years and has noticed a change in size in the caruncle. She feels it is changing her urinary stream. Pt as recently treated for UTI with nitrofurantoin. Finished the antibiotic a week ago. Pt feels she does not empty her bladder well. PVR today is 229ml. Dysuria: off and on burning Incomplete bladder emptying: pt feel she is not emptying Hematuria: no Frequency: varies sometimes every half an hour to every 2 hours Urgency: yes Nocturia: 3-4x for 4-5 months now Stream: some straining when she is trying to finish Leaking: yes a little Post void dripping: no Wearing pads/ Depends: thin pads and changes 3-4x daily Urge incontinence: yes Stress incontinence: yes with coughing and sneezing Incontinence without Sensory Awareness: no Abdominal pain: the last couple of weeks in her bladder and lower groin Flank pain: left sided for about 2 months now. Sexual complaints: no History of Present Illness Tests reviewed: reviewed UA, referral records I have reviewed the previous health record information and history for this patient from external providers. I have reviewed and verified the staff HPI to be accurate for this encounter. Review of Systems PHQ Score Initial Depression Screen Score: 0 SCORE ROS - Provider Constitutional: denies weight loss, denies hot flashes. Eyes: denies eye problems. Gastrointestinal: denies nausea, denies vomiting. Cardiovascular: denies chest pain or angina. Integumentary: no dryness Musculoskeletal: denies musculoskeletal symptoms. ENMT: denies otolaryngeal symptoms. Respiratory: no shortness of breath. Heme/Lymph: denies easy bleeding tendency, denies easy bruising tendency. Psychiatric: no confusion, no anxiety. Genitourinary: See HPI. Physical Exam Vitals & Measurements HR: 79(Peripheral) RR: 16 BP: 134/84 HT: 65 in HT: 165 cm WT: 72 kg WT: 158.4 lb BMI: 26.45 General Appearance: alert , no acute distress, well nourished, well developed female. Head: normocephalic . Eyes: normal orbit and globe. ENMT: normal examination of external ears. Chest: Lungs CTA, respirations non labored . Cardiovascular: regular rate and rhythm. Abdomen: soft , non distended, no tenderness, no mass or organomegaly, no hernia. Genitourinary: bladder nonpalpable, no flank tenderness. Lymph Nodes: unremarkable palpation of the cervical area. Skin: warm, dry, no bruising. Psychiatric: cooperative, affect appropriate for age, normal judgement, euthymic mood. Assessment/Plan Brigitte is a 72 yo female new pt referred by Kristyn Dougherty CNP for urinary frequency and caruncle. Pt states she is going to [place] in November. 1. UTI (urinary tract infection) (N39.0: Urinary tract infection, site not specified) Recently treated for UTI with nitrofurantoin, finished this 1wk ago. UA today shows small leuks. PVR today 229mL. Recommended pt to try emptying more often and to bend forward/press on bladder to ensure she empties and to prevent further infection. Discussed low dose daily abx for pt to help resolve infection. Hx of breast cancer, tx'd w/ mastectomy. Tried estrogen cream and hormone cream but had SE of irritation on hormone replacement therapy. No known hx of stones. States her stream does not feel as strong. States she can feel caruncle when she sits. Discussed it may be inflamed/infected. States she has only had blood a few times. Admits she had severe fever and chills 1 month ago. Advised pt she was bacteremic. Discussed she may be obstructed due to kidney stones. Will need to obtain imaging and sched cysto for further evaluation. -Take Augmentin 875mg qd x60 days. -Obtain CT AP wo con -Begin timed voids -Double void maneuvers -Will schedule Cysto with UD. The procedure risks, benefits, details, and treatment alternatives have been discussed with the patient. These include bleeding, infection, recurrent scar in over 50%, need for repeat dilation or other procedures, no symptom relief with dilation, among others. Full informed consent has been obtained. Will order Local anesthesia. 2. Flank pain (R10.9: Unspecified abdominal pain) Has had L flank pain, tender to palpation. ?from chronic infections. ?ureteral stone? -CT scan as above 3. 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 Incomplete bladder emptying (R33.9: Retention of urine, unspecified) See #1 5. Former smoker (Z87.891: Personal history of nicotine dependence) Quit at age 56. Risk factor for urothelial ca. Follow-up With When Contact Information Star RECINOS MD, URL [facility] [address], [place] [address] [phone] Additional Instructions: sched cysto/UD Patient Education Urinary Tract Infection, Adult, Udzh-ti-Wpvi IPari, personally scribed for Dr. Recinos on 08/25/2023 13:18:05. Electronically signed by (more content not included)... [facility] Comment on above: Result Comment: Elec tronically Signed By: Star RECINOS MD\.br\Date and Time Signed: 08/25/23 13:21 EST\.br\Electronically Co-Signed By: Pari Anton\Juliethbr\Date and Time Co-Signed: 08/25/23 13:18 EST 03-28-2023 Note HNO ID: [id number] Author: Lawrence Medina MD Service: ? Author Type: Physician Type: Progress Notes Filed: 03/28/2023 10:57 AM Note Text: Family History: Significant Family Hx :NA Social History Smoking: No Marital Status: NA ROS: Mental status changes: No Chest pain difficulty breathing: No Bleeding problems: No Visual Disturbances No Weight change No Mood changes No Urine frequency No Joint pain No Skin changes No Hx of asthma, cough, wheezing No HPI: Brigitte High is a 72 year old with main concern:decreasing volume, and pain on her reconstructed left breast. S/p Lat Dorsi/implant reconstruction in 1999. She has done well up until a few a years ago when she noted tightening on the left reconstructed brats. The last 2 years, she has noted progressive loss of volume and worsening of pain, more within the past few months prompting this visit. Duration: few years Prior Treatment: above PMHx: None reported Exam: General: healthy appearing female, not in acutre distress Self-Perception: appropriate Mental Status: a/o x 3 Labored Breathing: no Extremity Edema:no Breast: Right Left Sternal notch-NAC 29cm NA Base width 13 13.5, contracted breast ~11cm IMF-NAC 6/8 NA LEFT reconstructed breast- healed scar from LD flap, visible and palpable contracture, tender to deep palpation. 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 Lawrence Medina MD [facility] 03-28-2023 History of Present illness Narrative Family History: Significant Family Hx :NA Social History Smoking: No Marital Status: NA ROS: Mental status changes: No Chest pain difficulty breathing: No Bleeding problems: No Visual Disturbances No Weight change No Mood changes No Urine frequency No Joint pain No Skin changes No Hx of asthma, cough, wheezing No HPI: Brigitte High is a 72 year old with main concern:decreasing volume, and pain on her reconstructed left breast. S/p Lat Dorsi/implant reconstruction in 1999. She has done well up until a few a years ago when she noted tightening on the left reconstructed brats. The last 2 years, she has noted progressive loss of volume and worsening of pain, more within the past few months prompting this visit. Duration: few years Prior Treatment: above PMHx: None reported Exam: General: healthy appearing female, not in acutre distress Self-Perception: appropriate Mental Status: a/o x 3 Labored Breathing: no Extremity Edema:no Breast: Right Left Sternal notch-NAC 29cm NA Base width 13 13.5, contracted breast ~11cm IMF-NAC 6/8 NA LEFT reconstructed breast- healed scar from LD flap, visible and palpable contracture, tender to deep palpation. 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 Lawrence Medina MD documented in this encounter [facility] 03-25-2023 Note HNO ID: [id number] Author: Gray Mcdonald RT(Saud) Service: Radiology Author Type: Technologist Type: Progress Notes Filed: 03/25/2023 1:37 PM Note Text: Radiology Service Progress Note PATIENT NAME: Brigitte High DATE OF SERVICE: March 25, 2023 TIME: 1:36 PM PATIENT IDENTITY VERIFICATION COMPLETED USING TWO (2) IDENTIFIERS: Name and Date of confirmed by patient verbally and Name and Date of confirmed by identification band FALL SCREENING: Has the patient had 2 falls in the last year or 1 fall with injury or currently using an Ambulatory Assistive Device (Walker, Cane, Wheelchair, Crutches, etc.)? No PATIENT GENDER DATA: Female. status: : No status: N/A PATIENT RELEVANT IMPLANT DATA REVIEWED: Yes RADIOLOGY DEPARTMENT: MR; Exam(s) Completed: Chest: Breast PERIPHERAL IV DATA: Not applicable SIGNED BY: RT Jennifer(R) March 25, 2023 1:36 PM [facility] 11-28-2022 Note PROCEDURE: XR KNEE L T 3V COMPARISON: None. HISTORY: Pain of left knee joint FINDINGS: BONES:Subacute fracture mid pole of the patella extending from the anterior to posterior, articular, surface. Cortical step-off of the articular surface of 2 mm. Presence of lucency and ill-defined fracture planes suggests a subacute injury. Marginal osteophyte formation of the medial compartment. SOFT TISSUES:Negative. No visible soft tissue swelling. EFFUSION:Joint effusion OTHER: Call result initiated through operations IMPRESSION: Subacute mid patellar fracture extending to the articular surface Electronically authenticated by: ILDEFONSO HO Date: 2022-11-28 18:01 [facility] 12-05-2021 History of Present illness Narrative The patient is being seen for worsening symptoms of back pain. Symptoms: back stiffnessThe patient presents with complaints of back pain (Reports worsening back pain when attempting to move bowels).The patient presents with complaints of lower extremity numbness (Reports noted left big toe numbness last night) The patient is currently experiencing symptoms. Pain scores include a current pain level of 4/10. (Reports worsening bilat hip pain, knee pain) (Uses CBD gummies and Ibuprofen)The patient is being seen for worsening symptoms of constipation. Symptoms: infrequent stools, straining at stools and incomplete evacuationThe patient presents with complaints of small volume stools (Reports small, loose bm's). The patient is currently experiencing symptoms. Associated symptoms: bloating. (Saw GI, prescribed Linzess. Ineffective and could not tolerate)BRIGITTE HIGH presents with complaints of nonmenstrual bleeding (Reports occasional dark blood noted on underpants. Reports foul odor. Used OTC vaginal anti-fungal suppository. Noted blood on insert. Reports h/o hysterectomy 1980)BRIGITTE HIGH presents with complaints of cough (Reports symptoms started yesterday. Reports was in [place] about a month ago, had similar sx's. Took Zyrtec and Coricidin w/good effect. Had Covid test x1 month ago, negative)Associated symptoms include runny nose, stuffy nose, sore throat and headache, but no wheezing, no fever and no chest pain.The patient presents with complaints of dyspnea (Reports SOB on exertion) [facility] Work Phone: 10-29-2021 History of Present illness Narrative The patient is being seen for worsening symptoms of back pain. Symptoms: back stiffnessThe patient presents with complaints of back pain (Reports worsening back pain when attempting to move bowels).The patient presents with complaints of lower extremity numbness (Reports noted left big toe numbness last night) The patient is currently experiencing symptoms. Pain scores include a current pain level of 4/10. (Reports worsening bilat hip pain, knee pain) (Uses CBD gummies and Ibuprofen)The patient is being seen for worsening symptoms of constipation. Symptoms: infrequent stools, straining at stools and incomplete evacuationThe patient presents with complaints of small volume stools (Reports small, loose bm's). The patient is currently experiencing symptoms. Associated symptoms: bloating. (Saw GI, prescribed Linzess. Ineffective and could not tolerate)BRIGITTE HIGH presents with complaints of nonmenstrual bleeding (Reports occasional dark blood noted on underpants. Reports foul odor. Used OTC vaginal anti-fungal suppository. Noted blood on insert. Reports h/o hysterectomy 1980)BRIGITTE HIGH presents with complaints of cough (Reports symptoms started yesterday. Reports was in [place] about a month ago, had similar sx's. Took Zyrtec and Coricidin w/good effect. Had Covid test x1 month ago, negative)Associated symptoms include runny nose, stuffy nose, sore throat and headache, but no wheezing, no fever and no chest pain.The patient presents with complaints of dyspnea (Reports SOB on exertion) [id number] Work Phone: 04-20-2021 History of Present illness Narrative Ms. High is a 70-year-old female who is referred by Dr. Campbell for chronic constipation.She has history of chronic constipation. She has been using laxatives for over 20 years. Currently, she is taking 8 tabs of Sennakot every 2 to 3 days. She has tried fiber in the past (not effective) and Miralax (not effective though did not use consistently). Without using laxatives, she will go 3 to 4 days without a bowel movement and then develop abdominal bloating and discomfort. She denies splinting or using manual maneuvers to help herself defecate.She had a colonoscopy in March [address] at 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 I do not have the pathology results. She was advised to have her next colonoscopy in 5 years.Recent blood work reviewed and normal. She follows with Dr. Horvath in Oncology due to her history of breast cancer. She had a surveillance CT Chest/Abdomen/Pelvis last year that was normal.Past medical history: Chronic constipation, OA, anxiety, sleep apnea, breast cancer.Surgical history: Hemorrhoidal banding, cervical spine surgery, tonsillectomy and adenoidectomy, hysterectomy, mastectomy with reconstruction, spinal fusion, orthopedic surgeries NOS.Family history: Sister had colon cancer; she believes she was diagnosed in her 60's.Social history: Former smoker. Drinks 1 glass of wine daily. No illicits. [facility] Work Phone: 03-31-2021 History of Present illness Narrative The patient is being seen for an initial evaluation of chest pain. Symptoms: no cough, no fever and no palpitationsThe patient presents with complaints of intermittent episodes of bilateral anterior chest pain, described as pressure-like Episodes started March 31, 2021 (Pt reports falling x2 weeks ago. Was holding vasquez, hand in fist, fell forward onto chest. Reports chest pain started this past Sat).The patient presents with complaints of shortness of breath (C/o SOB on exertion or in supine position)The patient presents with complaints of orthopnea (C/o SOB in supine position) The patient is currently experiencing symptoms. Associated symptoms: fatigue, but no dizziness, no lightheadedness and no leg swellingThe patient presents with complaints of < 10 pound weight gain.BRIGITTE HIGH presents with complaints of dysuria starting 1 week ago (Pt reports lack or urination. Took Diurex x2. Pt not sure if effective)Associated symptoms include no urgency, no frequency, no suprapubic pain, no flank pain, no fever and no chills.The patient is being seen for worsening symptoms of constipation. Symptoms: straining at stools, hard stools and abdominal crampingThe patient presents with complaints of infrequent stools starting 1 month ago Symptoms are worsening (Pt reports worsening constipation. Taking x8 tabs of OTC Senokot QHS). The patient is currently experiencing symptoms. No associated symptoms are reported. [id number] Work Phone: 02-22-2021 History of Present illness Narrative BRIGITTE HIGH presents with complaints of joint pain, described as aching On a scale of 1 to 10, the patient rates the pain as 7 (Reports h/o generalized joint pain. Worsening x2 weeks)Associated symptoms include joint stiffness, morning stiffness and fatigue, but no fever and no chills.joint swelling [id number] Work Phone: 02-20-2021 History of Present illness Narrative BRIGITTE HIGH presents with complaints of joint pain, described as aching On a scale of 1 to 10, the patient rates the pain as 7 (Reports h/o generalized joint pain. Worsening x2 weeks)Associated symptoms include joint stiffness, morning stiffness and fatigue, but no fever and no chills.joint swelling [id number] Work Phone: 02-17-2021 History of Present illness Narrative The patient is being seen for worsening symptoms of back pain. Symptoms: back stiffness, decreased lateral bending and lower extremity weaknessThe patient presents with complaints of intermittent episodes of bilateral lower and bilateral upper back pain, described as aching, radiating to the left hand. On a scale of 1 to 10, the patient rates the pain as 1. Episodes started 2 months ago Symptoms are made worse by bending, twisting and walking down stairs (Pt reports h/o Sciatica pain. Reports worsening lower back pain w/bowel movements. ).The patient presents with complaints of lower extremity numbness (L>R)The patient presents with complaints of lower extremity tingling (L>R) The patient is currently experiencing symptoms. Associated symptoms: neck pain, but no headache, no dizziness, no urinary incontinence and no fecal incontinenceThe patient presents with complaints of difficulty sleeping (Sleeping on on couch d/t treatment for Radon in house). (C/o trigger finger to left middle finger and occasional right middle finger) Current treatment includes nonsteroidal anti-inflammatory drugs and Ibuprofen 600 mg BID/TID Hot shower in AM.low back pain into [facility] Work Phone: 12-31-2020 History of Present illness Narrative The patient is being seen for worsening symptoms of back pain. Symptoms: back stiffness, decreased lateral bending and lower extremity weaknessThe patient presents with complaints of intermittent episodes of bilateral lower and bilateral upper back pain, described as aching, radiating to the left hand. On a scale of 1 to 10, the patient rates the pain as 1. Episodes started 2 months ago Symptoms are made worse by bending, twisting and walking down stairs (Pt reports h/o Sciatica pain. Reports worsening lower back pain w/bowel movements. ).The patient presents with complaints of lower extremity numbness (L>R)The patient presents with complaints of lower extremity tingling (L>R) The patient is currently experiencing symptoms. Associated symptoms: neck pain, but no headache, no dizziness, no urinary incontinence and no fecal incontinenceThe patient presents with complaints of difficulty sleeping (Sleeping on on couch d/t treatment for Radon in house). (C/o trigger finger to left middle finger and occasional right middle finger) Current treatment includes nonsteroidal anti-inflammatory drugs and Ibuprofen 600 mg BID/TID Hot shower in AM.[facility] Work [facility]: 12-28-2020 History of Present illness Narrative The patient is being seen for worsening symptoms of back pain. Symptoms: back stiffness, decreased lateral bending and lower extremity weaknessThe patient presents with complaints of intermittent episodes of bilateral lower and bilateral upper back pain, described as aching, radiating to the left hand. On a scale of 1 to 10, the patient rates the pain as 1. Episodes started 2 months ago Symptoms are made worse by bending, twisting and walking down stairs (Pt reports h/o Sciatica pain. Reports worsening lower back pain w/bowel movements. ).The patient presents with complaints of lower extremity numbness (L>R)The patient presents with complaints of lower extremity tingling (L>R) The patient is currently experiencing symptoms. Associated symptoms: neck pain, but no headache, no dizziness, no urinary incontinence and no fecal incontinenceThe patient presents with complaints of difficulty sleeping (Sleeping on on couch d/t treatment for Radon in house). (C/o trigger finger to left middle finger and occasional right middle finger) Current treatment includes nonsteroidal anti-inflammatory drugs and Ibuprofen 600 mg BID/TID Hot shower in AM.low back pain into [id number] Work Phone: Evaluation + Plan note No data available for this section [facility] Evaluation note Diagnosis Breast pain- Primary Mastodynia Acquired breast deformity Other specified disorders of breast Capsular contracture of breast implant, initial encounter [facility] Onset Date Resolution Status Bronchitis acute [facility] Work Phone: History of Present illness Narrative* The patient is being seen for the subsequent annual wellness visit. * Past Medical, Surgical and Family History: reviewed and updated in chart. * Interval History: Patient has not been hospitalized previously. * Medications and Supplements: Medications and supplements, including calcium and vitamins reviewed and updated in chart. * No, the patient is not using opioids. * Patient Self Assessment of Health Status: good. * Tobacco use: Non-User * Alcohol use: User * Illicit drug use: Non-User * Current diet: well balanced diet, does consume adequate fluids and does consume caffeine. * Exercise Frequency: infrequently. * Depression/Suicide Screening: . * During the past 2 weeks, the patient has not felt down, depressed or hopeless. * During the past 2 weeks, the patient has not felt little interest or pleasure in doing things. * Hearing Impairment: none. * Cognitive Impairment: No cognitive impairment observed. * Bathing: performs independently. * Dressing: performs independently. * Walking: performs independently. * Toileting: performs independently. * Feeding: performs independently. * Personal Hygiene: performs independently. * Managing Finances: performs independently. * Shopping: performs independently. * Managing Medications: performs independently. * Housework / Basic Home Maintenance: performs independently. * Handling Transportation: performs independently. * Preparing Meals: performs independently. * Using the Telephone/ Communication Devices: performs independently. * Falls Risk Screening:. BRIGITTE has fallen in the last 6 months. Her fall did not result in injury. (Pt slipped on wet pavement and fell forward onto ground. Fell on closed fist to chest. No visibleinjury... Pt states she fell backwards after missing rung on step stool yesterday. Landed on R hip and shoulder, rolled on ground. No injury) * Home safety risk factors: none. * Advance directives:. Patient has living will. Patient has healthcare POA. [id number] Work Phone: History of Present illness NarrativePatient presents today with complaints of postmenopausal spotting x 2 weeks. No pain, + discolored dark discharge with wiping, bleeding with small/spotting with wiping or in underwear. The bleeding is vaginal, not urinary or bowel in origin. She had a prior hysterectomy 1980 for AUB/ovarian cyst, she had an open midline BRUCE/BSO. She was on hormonal therapy for short period of time after the removal of her ovaries, but she then stopped it she had severe mood side effects. She is not sexually active currently since the of her approximately 6 years ago, however she does have a new set of relationship and would like to become sexually active soon.[facility] Work Phone: history of Present illness NarrativePatient here for recheck of topical estrogen Rx use for severe atrophic vulvovaginitis. Patient stated she had a lot of spotting with using the applicator, she started having hot flashes and headaches and had to stop the topical estrogen. She has no further bleeding since stopping the medication. 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 [facility] Work Phone: History of Present illness Narrative* Hand Swelling * C/o swelling to 1st finger and middle finger x1 week. * C/o joint aching. * Hands felt tight while wearing gloves. * Took OTC Diurex and Aspercreme, voiced mild improvement. [id number] Work Phone: History of Present illness Narrative* The patient is being seen for the subsequent annual wellness visit. * Past Medical, Surgical and Family History: reviewed and updated in chart. * Medications and Supplements: Review of all medications by a prescribing practitioner or clinical pharmacist (such as prescriptions, OTCs, herbal therapies and supplements) documented in the medical record. * No, the patient is not using opioids. * Patient Self Assessment of Health Status: good. * Tobacco use: Non-User * Alcohol use: User * Illicit drug use: Non-User * Current diet: well balanced diet, does not consume adequate fluids and does consume caffeine. * Exercise Frequency: regularly. * Depression/Suicide Screening: . * During the past 2 weeks, the patient has not felt down, depressed or hopeless. * During the past 2 weeks, the patient has not felt little interest or pleasure in doing things. * Hearing Impairment: Patient has slight hearing impairment, bilaterally, She uses a hearing aid. * Cognitive Impairment: No cognitive impairment observed. * Bathing: performs independently. * Dressing: performs independently. * Walking: performs independently. * Toileting: performs independently. * Feeding: performs independently. * Personal Hygiene: performs independently. * Bowels: continent. * Bladder: continent. * Managing Finances: performs independently. * Shopping: performs independently. * Managing Medications: performs independently. * Housework / Basic Home Maintenance: performs independently. * Handling Transportation: performs independently. * Preparing Meals: performs independently. * Using the Telephone/ Communication Devices: performs independently. * Falls Risk Screening:. BRIGITTE has fallen in the last 6 months. Her fall did not result in injury. (Pt reports falling d/t tripping over feet) * Home safety risk factors: none. * Advance directives:. Patient has living will. Patient has healthcare POA. [id number] Work Phone: History of Present illness Narrative* History of Present Illness * She is here today for follow-up of her left knee transverse patella fracture. She is roughly 3 months out from her injury. She has been treated with a knee brace and physical therapy. She states she is doing much better. She wears the brace on occasion when she is out of the house but does not wearit around the home. She is not using any ambulatory aids. * Review of Systems * GENERAL: Negative for malaise, significant weight loss, fever * MUSCULOSKELETAL: see HPI * NEURO: Negative * Physical Exam * Left knee * Skin is intact without any evidence of erythema ecchymosis or effusion. * No tenderness to palpation over bony landmarks * Range of motion is 0 to 120 degrees * The knee is stable in varus valgus and anterior posterior stresses * She is distally neurovascularly intact. * Imaging * See dictated report from today. * Assessment * Left knee transverse patella fracture, healed * Plan * Continue with physical therapy as needed * Wean out of the brace * Follow-up in as needed * All questions answered * . [facility] Work Phone: Hospital Discharge instructions No data available for this section [facility] progress note No data available for this section [facility] Summary Purpose Family History No Family History Records Found Mother Name Dates Details Family history of (7 99.9, R99) Status:Active Family history of hyperlipid emia(V18.19, Z83.438) Status:Active Family history of History of quadruple bypass(V15.1, Z95.1) Status:Active Family history of Overweight (278.02, E66.3) Status:Active Father Name Dates Details Family history of (7 99.9, R99) Status:Active Family history of hypertensi on(V17.49, Z82.49) Status:Active Unknown Family Member Name Dates Details : Mother, Father Status:Active Family history of hyperlipid emia: Mother(V18.19, Z83.438) Status:Active History of quadruple bypass: Mother(V15.1, Z95.1) Status:Active Overweight: Mother Status:Active Family history of hypertensi on: Father(V17.49, Z82.49) Status:Active Unknown Family Member Name Dates Details : Mother, Father Status:Active Family history of hyperlipid emia: Mother(V18.19, Z83.438) Status:Active History of quadruple bypass: Mother(V15.1, Z95.1) Status:Active Overweight: Mother Status:Active Family history of hypertensi on: Father(V17.49, Z82.49) Status:Active Unknown Family Member Name Dates Details : Mother, Father Status:Active Family history of hyperlipid emia: Mother(V18.19, Z83.438) Status:Active History of quadruple bypass: Mother(V15.1, Z95.1) Status:Active Overweight: Mother Status:Active Family history of hypertensi on: Father(V17.49, Z82.49) Status:Active Unknown Family Member Name Dates Details : Mother, Father Status:Active Family history of hyperlipid emia: Mother(V18.19, Z83.438) Status:Active History of quadruple bypass: Mother(V15.1, Z95.1) Status:Active Overweight: Mother Status:Active Family history of hypertensi on: Father(V17.49, Z82.49) Status:Active Unknown Family Member Name Dates Details : Mother, Father Status:Active Family history of hyperlipid emia: Mother(V18.19, Z83.438) Status:Active History of quadruple bypass: Mother(V15.1, Z95.1) Status:Active Overweight: Mother Status:Active Family history of hypertensi on: Father(V17.49, Z82.49) Status:Active Unknown Family Member Name Dates Details : Mother, Father Status:Active Family history of hyperlipid emia: Mother(V18.19, Z83.438) Status:Active History of quadruple bypass: Mother(V15.1, Z95.1) Status:Active Overweight: Mother Status:Active Family history of hypertensi on: Father(V17.49, Z82.49) Status:Active Unknown Family Member Name Dates Details : Mother, Father Status:Active Family history of hyperlipid emia: Mother(V18.19, Z83.438) Status:Active History of quadruple bypass: Mother(V15.1, Z95.1) Status:Active Overweight: Mother Status:Active Family history of hypertensi on: Father(V17.49, Z82.49) Status:Active Unknown Family Member Name Dates Details : Mother, Father Status:Active Family history of hyperlipid emia: Mother(V18.19, Z83.438) Status:Active History of quadruple bypass: Mother(V15.1, Z95.1) Status:Active Overweight: Mother Status:Active Family history of hypertensi on: Father(V17.49, Z82.49) Status:Active Unknown Family Member Name Dates Details : Mother, Father Status:Active Family history of hyperlipid emia: Mother(V18.19, Z83.438) Status:Active History of quadruple bypass: Mother(V15.1, Z95.1) Status:Active Overweight: Mother Status:Active Family history of hypertensi on: Father(V17.49, Z82.49) Status:Active Unknown Family Member Name Dates Details : Mother, Father Status:Active Family history of hyperlipid emia: Mother(V18.19, Z83.438) Status:Active History of quadruple bypass: Mother(V15.1, Z95.1) Status:Active Overweight: Mother Status:Active Family history of hypertensi on: Father(V17.49, Z82.49) Status:Active Unknown Family Member Name Dates Details : Mother, Father Status:Active Family history of hyperlipid emia: Mother(V18.19, Z83.438) Status:Active History of quadruple bypass: Mother(V15.1, Z95.1) Status:Active Overweight: Mother Status:Active Family history of hypertensi on: Father(V17.49, Z82.49) Status:Active Unknown Family Member Name Dates Details : Mother, Father Status:Active Family history of hyperlipid emia: Mother(V18.19, Z83.438) Status:Active History of quadruple bypass: Mother(V15.1, Z95.1) Status:Active Overweight: Mother Status:Active Family history of hypertensi on: Father(V17.49, Z82.49) Status:Active Unknown Family Member Name Dates Details : Mother, Father Status:Active Family history of hyperlipid emia: Mother(V18.19, Z83.438) Status:Active History of quadruple bypass: Mother(V15.1, Z95.1) Status:Active Overweight: Mother Status:Active Family history of hypertensi on: Father(V17.49, Z82.49) Status:Active Unknown Family Member Name Dates Details Family history of hypertensi on: Father(V17.49, Z82.49) Status:Active Overweight: Mother Status:Active History of quadruple bypass: Mother(V15.1, Z95.1) Status:Active Family history of hyperlipid emia: Mother(V18.19, Z83.438) Status:Active : Mother, Father Status:Active Unknown Family Member Name Dates Details Family history of hypertensi on: Father(V17.49, Z82.49) Status:Active Overweight: Mother Status:Active History of quadruple bypass: Mother(V15.1, Z95.1) Status:Active Family history of hyperlipid emia: Mother(V18.19, Z83.438) Status:Active : Mother, Father Status:Active Unknown Family Member Name Dates Details : Mother, Father Status:Active Family history of hyperlipid emia: Mother(V18.19, Z83.438) Status:Active History of quadruple bypass: Mother(V15.1, Z95.1) Status:Active Overweight: Mother Status:Active Family history of hypertensi on: Father(V17.49, Z82.49) Status:Active Unknown Family Member Name Dates Details : Mother, Father Status:Active Family history of hyperlipid emia: Mother(V18.19, Z83.438) Status:Active History of quadruple bypass: Mother(V15.1, Z95.1) Status:Active Overweight: Mother Status:Active Family history of hypertensi on: Father(V17.49, Z82.49) Status:Active Unknown Family Member Name Dates Details : Mother, Father Status:Active Family history of hyperlipid emia: Mother(V18.19, Z83.438) Status:Active History of quadruple bypass: Mother(V15.1, Z95.1) Status:Active Overweight: Mother Status:Active Family history of hypertensi on: Father(V17.49, Z82.49) Status:Active Unknown Family Member Name Dates Details : Mother, Father Status:Active Family history of hyperlipid emia: Mother(V18.19, Z83.438) Status:Active History of quadruple bypass: Mother(V15.1, Z95.1) Status:Active Overweight: Mother Status:Active Family history of hypertensi on: Father(V17.49, Z82.49) Status:Active Unknown Family Member Name Dates Details : Mother, Father Status:Active Family history of hyperlipid emia: Mother(V18.19, Z83.438) Status:Active History of quadruple bypass: Mother(V15.1, Z95.1) Status:Active Overweight: Mother Status:Active Family history of hypertensi on: Father(V17.49, Z82.49) Status:Active Unknown Family Member Name Dates Details : Mother, Father Status:Active Family history of hyperlipid emia: Mother(V18.19, Z83.438) Status:Active History of quadruple bypass: Mother(V15.1, Z95.1) Status:Active Overweight: Mother Status:Active Family history of hypertensi on: Father(V17.49, Z82.49) Status:Active Unknown Family Member Name Dates Details : Mother, Father Status:Active Family history of hyperlipid emia: Mother(V18.19, Z83.438) Status:Active History of quadruple bypass: Mother(V15.1, Z95.1) Status:Active Overweight: Mother Status:Active Family history of hypertensi on: Father(V17.49, Z82.49) Status:Active Unknown Family Member Name Dates Details : Mother, Father Status:Active Family history of hyperlipid emia: Mother(V18.19, Z83.438) Status:Active History of quadruple bypass: Mother(V15.1, Z95.1) Status:Active Overweight: Mother Status:Active Family history of hypertensi on: Father(V17.49, Z82.49) Status:Active Unknown Family Member Name Dates Details : Mother, Father Status:Active Family history of hyperlipid emia: Mother(V18.19, Z83.438) Status:Active History of quadruple bypass: Mother(V15.1, Z95.1) Status:Active Overweight: Mother Status:Active Family history of hypertensi on: Father(V17.49, Z82.49) Status:Active Unknown Family Member Name Dates Details : Mother, Father Status:Active Family history of hyperlipid emia: Mother(V18.19, Z83.438) Status:Active History of quadruple bypass: Mother(V15.1, Z95.1) Status:Active Overweight: Mother Status:Active Family history of hypertensi on: Father(V17.49, Z82.49) Status:Active Unknown Family Member Name Dates Details : Mother, Father Status:Active Family history of hyperlipid emia: Mother(V18.19, Z83.438) Status:Active History of quadruple bypass: Mother(V15.1, Z95.1) Status:Active Overweight: Mother Status:Active Family history of hypertensi on: Father(V17.49, Z82.49) Status:Active Advance Directives No Advanced Directives Records Found Advance Directive Response Recorded Date/ Time Advance Directives No December 20 4 9:44am Chief Complaint * every joint is hurting * got a hot tub * helps * hips and neck * every joint is hurting * got a hot tub * helps * hips and neck * [place] raining and turned mechanical * next day was sore and has gotten worse and worse * painful to take a deep breath * today is able to * sore to touch and sore to breath in deep * pain in lower rib cage in back * pain with laying down * not urinating * just dribbles * drinking liquids * drinking pitcher * constipation * chronic * rescheduled gastro appt * had colonoscopy in 2016 joey * weight gain * eating healthy Referred by Dr. Campbell for constipation.* flu * shingrix due * prevnar * pneumovax * mammogram * dxa due * colooscopy 2016 4 year * pap age * depression screen 2020 * eye exam * fall risk 2020 * joints are getting tingly again * flu * shingrix due * prevnar * pneumovax * mammogram * dxa due * colooscopy 2016 4 year * pap age * depression screen 2020 * eye exam * fall risk 2020 * joints are getting tingly again * sick since yesterday * cough * mild shortness of breath * with straining has bright red blood on tp * dark brown on underwear * was in pool * used monistat and had blood * had a carbuncle * bowels are not formed * tried linzess * was too much * also was 600$ * had tried benefiber and miralax * new patient - here today c/o vaginal bleeding * patient had total hysterectomy in 80 - due to AUB * 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 No bleeding.* flu 22 * covid x 3 * shingrix due * prevnar + * pneumovax + * pap age * mammogram 11/16 * dxa declines * colonoscopy [age] year [facility] in 2 weeks * bmi 27 * fall risk 2021 * adv dir y * depression screen 2021 * eye exam 22 * flu 22 * covid x 3 * shingrix due * prevnar + * pneumovax + * pap age * mammogram 11/16 * dxa declines * colonoscopy [age] year [facility] in 2 weeks * bmi 27 * fall risk 2021 * adv dir y * depression screen 2021 * eye exam 22 * F/U Subacute left patella fracture * XRAYS TODAY Additional Source Comments INFORMATION SOURCE (unrecogn ized section and content) DATE CREATED AUTHOR 01/31/2018 [facility] DATE CREATED AUTHOR AUTHOR'S ORGANIZ ATION 09/16/2018 [facility] DATE CREATED AUTHOR AUTHOR'S ORGANIZ ATION 11/26/2021 [facility] DATE CREATED AUTHOR AUTHOR'S ORGANIZ ATION 12/05/2022 [facility] DATE CREATED AUTHOR AUTHOR'S ORGANIZ ATION 01/21/2023 [facility] DATE CREATED AUTHOR AUTHOR'S ORGANIZ ATION 02/12/2023 [facility] DATE CREATED AUTHOR AUTHOR'S ORGANIZ ATION 02/12/2023 [facility] DATE CREATED AUTHOR AUTHOR'S ORGANIZ ATION 10/17/2023 [facility] DATE CREATED AUTHOR AUTHOR'S ORGANIZ ATION 10/21/2023 [facility] DATE CREATED AUTHOR AUTHOR'S ORGANIZ ATION 11/19/2023 [facility] DATE CREATED AUTHOR AUTHOR'S ORGANIZ ATION 01/20/[address] [facility] DATE CREATED AUTHOR AUTHOR'S ORGANIZ ATION 01/21/2024 [facility] DATE CREATED AUTHOR AUTHOR'S ORGANIZ ATION 04/23/2024 [facility] DATE CREATED AUTHOR AUTHOR'S ORGANIZ ATION 04/23/2024 [facility] Source Comments (unrecognize d section and content) In the event this informatio n is protected by the Federal Confidentiality of Alcohol and Drug Abuse Patient Records regulations: The Federal rules restrict any use of the information to criminally investigate or prosecute any alcohol or drug abuse patient.[facility] Reason for Visit (unrecogniz ed section and content) Reason Comments New Patient Evaluation Patient states ramires s possible implant leak. Care Teams (unrecognized sec tion and content) Milieu Coordinator Relationship Specialty Start Date End Date AdrianJing canseco KerenDO [address] [place] [id number] PCP - General 03/28/15 Team Status: Active Member Role Status Dates DOUG Melendez Primary Care Provider Active Team Status: Inactive Member Role Status Dates Star Recinos MD Attending Provider Active St art: September 25, 2023 End: September 25, 2023 Team Status: Inactive Member Role Status Dates Suha Goel APRN Attending Provider Active S tart: December 21, 2023 End: December 21, 2023 DOUG Melendez Primary Care Provider Active Start: December 21, 2023 End: December 21, 2023 Goals (unrecognized section and content) Goals may be documented in a n alternate section FOR RECORDS PERTAINING TO PATIENTS WHO ARE OR HAVE BEEN ENROLLED IN A CHEMICAL DEPENDENCY/SUBSTANCEABUSE PROGRAM, SOME INFORMATION MAY BE OMITTED. This clinical summary was aggregated from multiple sources. Caution should be exercised in using it in the provision of clinical care. This summary normalizes information from multiple sources, and as a consequence, information in this document may materially change the coding, format and clinical context of patient data. In addition, data may be omitted in some cases. CLINICAL DECISIONS SHOULD BE BASED ON THE PRIMARY CLINICAL RECORDS. [facility] [facility]. provides no warranty or guarantee of the accuracy or completeness of information in this document.
== END 2024-04-26 12:22 | disposition home or self-care (01) ==
LOC: PST 12:22
PROVIDERS: PCP Nurse Practitioner Family; Visit Provider Urology
DX: Z01.818 Encounter for other preprocedural examination (principal); Z87.440 Personal history of urinary (tract) infections

== ENCOUNTER 2024-05-03 07:34 | Day surgery (SDC) | payer MEDICARE, OTHER, SELFPAY ==
--- OUTSIDE RECORDS SUMMARY | 2024-05-03 07:38 | XMS_ITS | CCD ---
Author Organization [facility] Care Team Providers Care Television Engineer Name Role Phone Jing Campbell Unavailable Unavailable Adrian, Jing Unavailable Unavailable Adrian, [...] Care Provider KRISTYN DOUGHERTY Primary Care Physician [phone] Lawrence MEDINA Referring Unavailable ADRIAN, JING KEREN Primary Care Unavailabl e Lawrence MEDINA Attending Unavailable ADRIAN, JING KEREN Primary Care Unavailmaricruz e Star Recinos Attending Unavailable Star Recinos Admitting Unavailable TANIA ARREDONDO Attending Unavailable MD Star Recinos Attending Provider [phone] CARLITO HORVATH Attending Unavailable LADONNA, KRISTYN S [...] Referring Unavailable Ghazoul, Jadyn Consulting Unavailable Ladonna, Kristny Primary Care Unavailable Ghazoul, Jadyn Attending Unavailable Ladonna, Kristyn Primary Care Unavailable Ghazoul, Jadyn Attending Unavailable Ladonna, Kristyn Referring Unavailable Ghazoul, Jadyn Attending Unavailable Ghazoul, Jadyn Attending Unavailable Ghazoul, Jadyn Attending Unavailable Star RECINOS Attending Unavailable Star RECINOS Attending Unavailable Star RECINOS Attending Unavailable Star RECINOS Attending Unavailable LADONNA, KRISTYN S Referring Unavailable Star RECINOS Attending Unavailable Star RECINOS Attending Unavailable Star RECINOS Attending Unavailable Star RECINOS Attending Unavailable Star RECINOS Referring Unavailable Allergies Allergy Classification Reported Allergen(s) Allergy Type Date of Onset Reaction(s) Facility Acetaminophen (9 sources) Acetaminophen; Translations: [Tylenol] Drug Allergy AJ-IKOE-Tyha 3871X Work Phone: (20 sources) Acetaminophen; Translations: [Tylenol] Drug Allergy Tinnitus (finding) [facility] (19 sources) Codeine; Translations: [Codeine Derivatives] Drug Allergy HX-YFIH-Phxz 6666T Work Phone: (15 sources) Mold Extract Drug Allergy QV-GGFK-Rsnt 2536A Work Phone: (15 sources) [place] mold Allergy to substance (finding) XH-AGTY-Ohoq 2532W Work Phone: (5 sources) Animal dander - Cats Allergy to substance (finding) OC-QZFP-Lwth 2531C Work Phone: (4 sources) Acetaminophen; Translations: [ACETAMINOPHEN] Drug Allergy 4 Other: See [facility] (2 sources) Codeine; Translations: [CODEINE] Drug Allergy 3 [facility] Repository (1 source) Environmental Allergies: Uncoded; Translations: [Environmental Allergies: Uncoded] Propensity to adverse reactions (disorder) 4 [facility] Repository (1 source) cat dander Drug allergy (disorder) 4 [facility] Repository Medications Current Medications Medication Drug [...] day(s), # 30 tab(s), Refills(s) 1, Pharmacy: [facility]/pharmacy #[id number], 165, cm, 08/25/23 12:11:00 EST, Height/Length [...] Jing Campbell DO Start : 29-Oct-2021 Active Calcium Citrate [...] Start : 14-Oct-2022 Active polyethylene glycol 3350 310037 mg / potassium chloride 2970 mg / sodium bicarbonate 6740 mg / sodium chloride 5860 mg / sodium sulfate 45526 mg powder for oral solution (2 sources) [...] Campbell DO Start : 10-Jul-2020 Active sennosides, mcfp 8.6 mg oral tablet (19 sources) Start: [...] other medications] Episodic Other aftercare (2 sources) 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) use of non-steroidal anti-inflammatories (NSAID); Translations: [custodial (current) use of non-steroidal anti-inflammatories (NSAID)] Onset: [...] Onset: 07-08-2022 Episodic Unclassified (1 source) M54.16 99701 Onset: 10-18-2017 Unclassified (1 source) Patient encounter status; Translations: [Medication management] Unclassified (1 source) CONTACT W/AND (SUSP) EXPOS COVID-19; Translations: [CONTACT W/AND (SUSP) EXPOS COVID-19] Onset: 07-05-2022 NEGATED: Highlighted row has not occurred!Residual codes; unclassified (6 sources) Disease Episodic Results Test Name Value Interpretation Reference Range Facility Plastic Surgery Visit Report on 04-21-2024 Plastic Surgery Visit Report [facility] Plastic Reconstructive Surgery [address], [address] [place] [id number] OFFICE VISIT Date of Service: 04/21/24 MR#: [id number] Acct: [id number] Name: BRIGITTE HIGH Rep #: [id number] : 1950 Provider: Dr. Jadyn mccall MD Age/Sex: 73/F Location: [facility] Status: Signed Intake Vital Signs 03/31/24 10:14 [...] PO Q6H PRN pain 01/20/24 04/21/24 History dcppzwkmusxz-Jg-bvei-mine rals 1 tab PO DAILY 01/20/24 04/21/24 History vitamin C 45 mg-zinc citrate 3.75 1 tab PO DAILY 01/20/24 04/21/24 History mg-elderberry 50 mg chewable tablet ([employer]) calcium carbonate 600 mg-vitamin 1 tab PO [...] healing T14.8XXD Status post breast reconstruction Z98.890 [facility] Medical History Wears hearing aid Wears dentures [...] Additional Comments: Follow-up in 2 weeks 04/21/24 731 Date Jadyn Houston Signature: Date (if applicable) CC: Normal [facility] Plastic Surgery Visit Report on 03-31-2024 Plastic Surgery Visit Report [facility] Plastic Reconstructive Surgery [address], [address] [place] [address] OFFICE VISIT Date of Service: 03/31/24 MR#: [id number] Acct: [id number] Name: BRIGITTE HIGH Rep #: [id number] : 1950 Provider: Dr. Jadyn mccall MD Age/Sex: 73/F Location: [facility] Status: Signed Intake Vital Signs 03/17/24 09:28 [...] PO Q6H PRN pain 01/20/24 03/31/24 History nypnzndxhwcz-Ta-wzyx-mine rals 1 tab PO DAILY 01/20/24 03/31/24 History vitamin C 45 mg-zinc citrate 3.75 1 tab PO DAILY 01/20/24 03/31/24 History mg-elderberry 50 mg chewable tablet ([employer]) calcium carbonate 600 mg-vitamin 1 tab PO [...] of reduction surgery of right breast Z98.890 [facility] Medical History Wears hearing aid Wears dentures [...] Ocasioignbo Signature: Date (if applicable) CC: Normal [facility] Reminderson 03-26-2024 Reminders Reminders From: Daniella Green To: EU - Recalls Recinos; Sent: 10/20/2023 15:17:03 EDT Show up: 01/26/2024 15:16:00 EDT Subject: Cysto Due Date/Time: 02/16/2024 15:17:00 EDT Reminder/Recall Patient needs 6 month cysto in 2023. DX; hx urethral lesion l/m on vm.LG Patient called back, sched for 05/03/24 at [facility].LG Normal [facility] Plastic Surgery Visit Report on 03-17-2024 Plastic Surgery Visit Report [facility] Plastic Reconstructive Surgery [address], [address] [place], [place] [address] OFFICE VISIT Date of Service: 03/17/24 MR#: [id number] Acct: [id number] Name: BRIGITTE HIGH Rep #: [id number] : 1950 Provider: Dr. Jadyn mccall MD Age/Sex: 73/F Location: [facility] Status: Signed Intake Vital Signs [...] PO Q6H PRN pain 01/20/24 03/17/24 History xszaqpfuxcom-Dp-ikva-mine rals 1 tab PO DAILY 01/20/24 03/17/24 History vitamin C 45 mg-zinc citrate 3.75 1 tab PO DAILY 01/20/24 03/17/24 History mg-elderberry 50 mg chewable tablet ([employer]) calcium carbonate 600 mg-vitamin 1 tab PO [...] Op Diagnoses Status post breast reconstruction Z98.890 [facility] Medical History Wears hearing aid Wears dentures [...] interim with any questions or problems 03/17/24 2058 Date Jadyn Chavez MD Cosigner Signature: Date (if applicable) CC: Normal [facility] Plastic Surgery Visit Report on 03-10-2024 Plastic Surgery Visit Report [facility] Plastic Reconstructive Surgery [address], [address] [place] [address] OFFICE VISIT Date of Service: 03/10/24 MR#: [id number] Acct: [id number] Name: BRIGITTE HIGH Rep #: [id number] : 1950 Provider: Dr. Jadyn mccall MD Age/Sex: 73/F Location: [facility] Status: Signed Intake Vital Signs [...] PO Q6H PRN pain 01/20/24 03/10/24 History pmrdpjqvgsqb-Ld-ynoa-mine rals 1 tab PO DAILY 01/20/24 03/10/24 History vitamin C 45 mg-zinc citrate 3.75 1 tab PO DAILY 01/20/24 03/10/24 History mg-elderberry 50 mg chewable tablet ([employer]) calcium carbonate 600 mg-vitamin 1 tab PO [...] Global Post Op Diagnoses Breast asymmetry between atka breast and reconstructed breast N65.1 Status post left breast reconstruction Z98.890 History of reduction surgery of right breast Z98.890 [facility] Medical History Wears hearing aid Wears dentures [...] Assessment and Plan (1) Breast asymmetry between atka breast and reconstructed breast: Status: Acute (2) Status post left breast reconstruction: Status: Acute (3) History of reduction surgery of right breast: Status: Acute Plan Details Additional Comments: She is to follow-up in 1 week for recheck. She is encouraged to call in the interim with any problems. Her limitations were reviewed with her and her daughter 02/25 (more content not included)... Normal [facility] Discharge Instructionon Discharge Instruction [facility] Medical Records Department [address] [place] [address] Instructions for Home/Discharge Instructions 03/04/24 1123 MR#: [id number] Acct: [id number] Name: BRIGITTE HIGH Rep #: [id number] : 1950 73 From: Jadyn Chavez MD PCP: DOUG Brown Status[place] [facility] [place] Instructions Dressing / Incision Additional Dressing/Incision [...] Care Provider: Kristyn Dougherty Instructions Print Language: Chinese Discharge Orders/Prescriptions Prescriptions: No Action ibuprofen 600 mg tablet 600 mg PO Q6H PRN (Reason: pain) ozyohplpswun-Wp-yssf-mine rals Tablet 1 tab PO DAILY Neuriva [...] Self Care 03/04/241123 Jadyn Chavez MD CC: PLANT ATTENDANT OR ASSISTANT OPERATOR-C Kristyn Dougherty Signed Normal [facility] Discharge Instruction [facility] Medical Records Department [address] [place] [address] Instructions for Home/Discharge Instructions 03/04/24 1121 MR#: [id number] Acct: [id number] Name: BRIGITTE HIGH Rep #: [id number] : 1950 73 From: Jadyn Chavez MD [...] Care Provider: Kristyn Dougherty Instructions Print Language: Chinese Discharge Orders/Prescriptions Prescriptions: No Action ibuprofen 600 mg tablet 600 mg PO Q6H PRN (Reason: pain) hbfacecfpoez-Pr-uvex-mine rals Tablet 1 tab PO DAILY Neuriva [...] Care 03/04/24 1333 Jadyn Chavez MD CC: PLANT ATTENDANT OR ASSISTANT OPERATOR-C Kristyn Dougherty Signed Normal [facility] MR/POSTOP.NADIYA 03-04-2024 MR/POSTOP.[facility] Medical Records Department [address] [place] [address] Anesthesia Postop Eval I 03/04/24 1122 MR#: [id number] Acct: [id number] Name: BRIGITTE HIGH Rep #: [id number] : 1950 73 From: Hyun Hernandez PCP: DOUG Bronw Status:REG SDC Y Race: C Location: [place] [address] Anesthesia: Postop Eval I Current Vital Signs [...] Hyun Hernandez Cosigner Signature: CC: Signed Normal [facility] MR/WALIWOSE4en 03-04-2024 /[facility] Medical Records Department [address] [place] [address] Anesthesia Postop Eval II 03/04/24 1146 MR#: [id number] Acct: [id number] Name: BRIGITTE HIGH Rep #: [id number] : 1950 73 From: Julito Domingo MD PCP: Kristyn Dougherty NP-C Status:REG [facility] Y Race: C Location: [place] [address] Anesthesia Postop Eval I Sum Anesthesia Postop [...] Domingo MD Cosigner Signature: CC: Signed Normal [facility] Operative Reporton 4 Operative Report [facility] Medical Records Department [address] [place] [address] Operative Report 03/04/24 1124 MR#: [id number] Acct: [id number] Name: BRIGITTE HIGH Rep #: [id number] : 1950 73 From: Jadyn Chavez MD PCP: Kristyn Dougherty NP-C Status:[facility] Location[place] [facility] [place] [place] Report of Operation Date of Procedure: 03/04/24 Pre-Operative Diagnosis: Asymmetry between the right atka breast and the left reconstructed breast; Right [...] clips. This is further reinforced with some bevqrp-mo-fcbas Vicryl sutures. The skin edges were then [...] Dougherty; Dr. Jadyn Chavez MD Signed Normal [facility] Surgery Specimen Level Franky 03-04-2024 Surgery Specimen Level IV Patient Age/Sex Location Account Attending Physician BRIGITTE HIGH 73/F [facility] [id number]. Jadyn Chavez MD Specimen: [id number] Received: 03/04/24-130 Status: MEHREEN Tavarez Num: [id number] Spec Type: Lesion Subm Dr: Dr. Jadyn Chavez MD HEADER OPERATION: Right breast lift and revision left breast reconstruction PRE-OP DIAGNOSIS: Breast asymmetry between atka breast and reconstructed breast, painful periwound skin, [...] Sections do not reveal any mass lesions. Director Of Mobile Marketing sections are submitted in two cassettes. Cecily 03/04/2024 TC:4 CPT:99666 Patient Age/Sex Location Account Attending Physician BRIGITTE HIGH 73/F [facility] [id number] Dr. Jadyn Chavez MD Signed (signature on file) Dr. Cy Sandhu MD 03/05/24 1101 [facility] Comment on above: Performed By: #### P SUIV #### [facility] Laboratory [address] [place], [address] Basic Metabolic Profile (BMP )on 02-18-2024 BUN/CRE 32.4 RATIO High 10-20 [facility] Comment on above: Order Comment: pre s urgery testing Performed By: #### L 300.4310, L500.2500, L300.3900, L100.0500 ####[facility] [address] [place], [address] CA,Total 9.3 mg/dL Normal 8.5-10.1 [facility] Comment on above: Order Comment: pre s urgery testing Performed By: #### L 300.4310, L500.2500, L300.3900, L100.0500 ####[facility] [address] [place], [address] Chloride [Moles/Vol] 109 mmol/L High 98-107 [facility] Comment on above: Order Comment: pre s urgery testing Performed By: #### L 300.4310, L500.2500, L300.3900, L100.0500 ####[facility] [address] [place], [address] CO2 [Moles/Vol] 23.0 mmol/L Normal 21.0-32.0 [facility] Comment on above: Order Comment: pre s urgery testing Performed By: #### L 300.4310, L500.2500, L300.3900, L100.0500 ####[facility] [address] [place], [address] Creatinine [Mass/Vol] 0.68 mg/dL Normal 0.55-1.02 [facility] Comment on above: Order Comment: pre s urgery testing Result Comment: The validity of the calculated GFR GFRAA in patients over 70 years has not been determined. Clinical correlation is essential. Performed By: #### L 300.4310, L500.2500, L300.3900, L100.0500 ####[facility] [address] [place], [address] EST GFR - AA 109 mL/min Normal >60 [facility] Comment on above: Order Comment: pre s urgery testing Result Comment: Afri can Bermudian GFR Calc Performed By: #### L 300.4310, L500.2500, L300.3900, L100.0500 ####[facility] [address] [place], [address] GAP 6 Normal 5-15 [facility] Comment on above: Order Comment: pre s urgery testing Performed By: #### L 300.4310, L500.2500, L300.3900, L100.0500 ####[facility] [address] [place], [address] GFR/1.73 sq M.predicted among non-blacks MDRD (S/P/Bld) [Vol rate/Area] 90 mL/min/{1.73_m2} Normal >60 [facility] Comment on above: Order Comment: pre s urgery testing Result Comment: Non- GFR Calc Performed By: #### L 300.4310, L500.2500, L300.3900, L100.0500 ####[facility] [address] [place], [address] Glucose [Mass/Vol] 104 mg/dL Normal 74-106 [facility] Comment on above: Order Comment: pre s urgery testing Result Comment: Fast ing Glucose result from 100 to 125 mg/dL suggests IMPAIRED HOMEOSTASIS per A.D.A. criteria. Performed By: #### L 300.4310, L500.2500, L300.3900, L100.0500 ####[facility] [address] [place], [address] Potassium [Moles/Vol] 4.2 mmol/L Normal 3.5-5.1 [facility] Comment on above: Order Comment: pre s urgery testing Performed By: #### L 300.4310, L500.2500, L300.3900, L100.0500 ####[facility] [address] [place], [address] Sodium [Moles/Vol] 138 mmol/L Normal 136-145 [facility] Comment on above: Order Comment: pre s urgery testing Performed By: #### L 300.4310, L500.2500, L300.3900, L100.0500 ####[facility] [address] [place], [address] Urea nitrogen [Mass/Vol] 22 mg/dL High 7-18 [facility] Comment on above: Order Comment: pre s urgery testing Performed By: #### L 300.4310, L500.2500, L300.3900, L100.0500 ####[facility] [address] [place], [address] CBC-Complete Blood Cnt No Di ffon 02-18-2024 Erythrocyte distribution width (RBC) [Ratio] 13.8 % Normal 11.6-14.6 [facility] Comment on above: Order Comment: Comme nts: pre surgery testing Performed By: #### L 300.4310, L500.2500, L300.3900, L100.0500 ####[facility] [address] [place], [address] Hematocrit (Bld) [Volume fraction] 41.3 % Normal 37-47 [facility] Comment on above: Order Comment: Comme nts: pre surgery testing Performed By: #### L 300.4310, L500.2500, L300.3900, L100.0500 ####[facility] [address] [place], [address] Hemoglobin (Bld) [Mass/Vol] 13.4 g/dL Normal 12.0-15.0 [facility] Comment on above: Order Comment: Comme nts: pre surgery testing Performed By: #### L 300.4310, L500.2500, L300.3900, L100.0500 ####[facility] [address] [place], [address] MCH (RBC) [Entitic mass] 30.4 pg Normal 27.0-32.0 [facility] Comment on above: Order Comment: Ester nts: pre surgery testing Performed By: #### L 300.4310, L500.2500, L300.3900, L100.0500 ####[facility] [address] [place], [address] MCHC (RBC) [Mass/Vol] 32.4 g/dL Normal 32-36 [facility] Comment on above: Order Comment: Ester nts: pre surgery testing Performed By: #### L 300.4310, L500.2500, L300.3900, L100.0500 ####[facility] [address] [place], [address] MCV (RBC) [Entitic vol] 93.7 fL Normal 81-99 [facility] Comment on above: Order Comment: Ester nts: pre surgery testing Performed By: #### L 300.4310, L500.2500, L300.3900, L100.0500 ####[facility] [address] [place], [address] Platelet mean volume (Bld) [Entitic vol] 9.4 fL Normal 6.2-12.0 [facility] Comment on above: Order Comment: Ester nts: pre surgery testing Performed By: #### L 300.4310, L500.2500, L300.3900, L100.0500 ####[facility] [address] [place], [address] Platelets (Bld) [#/Vol] 268 10*3/uL Normal 150-450 [facility] Comment on above: Order Comment: Ester nts: pre surgery testing Performed By: #### L 300.4310, L500.2500, L300.3900, L100.0500 ####[facility] [address] [place], [address] RBC (Bld) [#/Vol] 4.41 10*6/uL Normal 4.2-5.4 [facility] Comment on above: Order Comment: Comme nts: pre surgery testing Performed By: #### L 300.4310, L500.2500, L300.3900, L100.0500 ####[facility] [address] [place], [address] RDW SD 47.8 fl High 35.1-43.9 [facility] Comment on above: Order Comment: Comme nts: pre surgery testing Performed By: #### L 300.4310, L500.2500, L300.3900, L100.0500 ####[facility] [address] [place], [address] WBC (Bld) [#/Vol] 6.6 10*3/uL Normal 4.4-11.0 [facility] Comment on above: Order Comment: Comme nts: pre surgery testing Performed By: #### L 300.4310, L500.2500, L300.3900, L100.0500 ####[facility] [address] [place], [address] Partial Thromboplast Timeon 02-18-2024 aPTT Coag (Bld) [Time] 27.0 s Normal 24.1-36.2 [facility] Comment on above: Order Comment: Comme nts: pre surgery testing Performed By: #### L 300.4310, L500.2500, L300.3900, L100.0500 ####[facility] [address] [place], [address] Plastic Surgery Visit Report on 02-18-2024 Plastic Surgery Visit Report [facility] Plastic Reconstructive Surgery [address], [address] [place] [address] OFFICE VISIT Date of Service: 02/18/24 MR#: [id number] Acct: [id number] Name: BRIGITTE HIGH Rep #: [id number] : 1950 Provider: Dr. Jadyn mccall MD Age/Sex: 73/F Location: [facility] Status: Signed Intake Vital Signs 01/20/24 10:05 [...] mg PO Q6H PRN 01/20/24 02/18/24 History eaahyotyqrip-Ni-uaqm-mine rals tab PO 01/20/24 02/18/24 History vitamin C 45 mg-zinc citrate 3.75 tab PO 01/20/24 02/18/24 History mg-elderberry 50 mg chewable tablet ([employer]) coffee extract 100 mg-phosphatidyl cap PO 02/04/24 02/18/24 History serine 100 mg capsule (Neuriva Original) vvsvwfnjhp-FX-krgpdikgogv en 6.25 ml PO 02/04/24 02/18/24 History [...] the appointmen (more content not included)... Normal [facility] Prothrombin Time w/INRon INR Coag (PPP) [Relative time] 1.1 {INR} Normal [facility] Comment on above: Order Comment: Ester nts: pre surgery testing Performed By: #### L 300.4310, L500.2500, L300.3900, L100.0500 ####[facility] [address] [place], [place], [address] PT Coag (PPP) [Time] 13.8 s Normal 11.7-14.9 [facility] Comment on above: Order Comment: Ester nts: pre surgery testing Performed By: #### L 300.4310, L500.2500, L300.3900, L100.0500 ####[facility] [address] [place], [address] Plastic Surgery Visit Report on 02-04-2024 Plastic Surgery Visit Report [facility] Plastic Reconstructive Surgery [address], [address] [place], [place] [address] OFFICE VISIT Date of Service: 02/04/24 MR#: [id number] Acct: [id number] Name: BRIGITTE HIGH Rep #: [id number] : 1950 Provider: Dr. 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 [...] Painful periwound skin R23.8 Breast asymmetry between atka breast and reconstructed breast N65.1 Ptosis of right breast N64.81 Status post left br (more content not included)... Normal [facility] Plastic Surgery Visit Report on 01-20-2024 Plastic Surgery Visit Report [facility] Plastic Reconstructive Surgery [address], [address] [place] [address] OFFICE VISIT Date of Service: 01/20/24 MR#: [id number] Acct: [id number] Name: BRIGITTE HIGH Rep #: [id number] : 1950 Provider: Dr. Jadyn mccall MD Age/Sex: 73/F Location: [facility] Status: Signed Intake Vital Signs [...] mg PO Q6H PRN 01/20/24 01/20/24 History yueolrjugysn-Is-absh-mine rals tab PO 01/20/24 01/20/24 History vitamin C 45 mg-zinc citrate 3.75 tab PO 01/20/24 01/20/24 History mg-elderberry 50 mg chewable tablet ([employer]) Have you fallen in the past year?: [...] mastectomy. She had her initial surgery at [facility] and the second surgery at [facility]. She has a history of nicotine [...] has ptos (more content not included)... Normal [facility] C Urineon 11-06-2023 Bacteria identified Cx [...] Locations R1: This test was performed at: [facility], [address] [place] [address], [id number] [place] [address], [facility] Comment on above: Performed By: #### 2 [id number] ####[place] [address] Pathology Noteon 11-05-2023 Pathology Note [id number]#1.00TIFF Normal [facility] Pathology Noteon 10-23-2023 Pathology Note [id number]#1.00TIFF Normal [facility] Pathology Noteon 10-21-2023 Pathology Note [id number]#1.00TIFF Normal [facility] Pathology Note [id number]#1.00TIFF Normal [facility] Pathology Noteon 10-20-2023 Pathology Note [id number]#1.00TIFF Normal [facility] Pathology Noteon 10-17-2023 Pathology Note [id number]#1.00TIFF Normal [facility] Pathology Note [id number]#1.00TIFF Normal [facility] Pathology Noteon 10-08-2023 Pathology Note [id number]#1.00TIFF Normal [facility] SURGICAL PATHOLOGY REFERENCE LAB CONSULTon 10-08-2023 CASE REPORT Normal [facility] Comment on above: Order Comment: Speci men Type: FORMALIN-FIXED PARAFFIN-EMBEDDED TISSUE SPECIMEN Ordering Facility: [facility] Address: [address] [place] [phone] Result Comment: Surg ical Pathology Report Case: [id number] Authorizing Provider: Star Recinos MD Collected: 10/08/2023 07:46 PM Ordering Location: [facility] Received: 10/08/2023 07:45 PM [facility] Pathologist: Hema Ho MD Specimen: SLIDE(S), 4 SLIDES ([id number]) Performed By: #### L [id number] #### [facility] CLIA [id number] [address] [place] [address] [place] CLINICAL HISTORY CONSULT REQUESTED Normal [facility] Comment on above: Order Comment: Speci men Type: FORMALIN-FIXED PARAFFIN-EMBEDDED TISSUE SPECIMEN Ordering Facility: [facility] Address: [address] [place] [phone] Performed By: #### L [id number] #### [facility] CLIA [id number] [address] [place] [address] [place] DIAGNOSIS COMMENT Normal [facility] Comment on above: Order Comment: Speci men Type: FORMALIN-FIXED PARAFFIN-EMBEDDED TISSUE SPECIMEN Ordering Facility: [facility] Address: [address] [place] [phone] Result Comment: No i nvasive component is found in the sample examined. P16 immunostain performed at the referring institution is diffusely/strongly positive. Further, high-risk HPV CISH performed at the [facility] is positive. Laboratory Developed Test (LDT) Disclaimer: Performance characteristics of immunohistochemical, immunofluorescent and chromogenic in-situ hybridization tests have been determined by the performing laboratory within [facility]???s [facility] [place] ([facility], [facility], [facility], [facility], [facility], [facility], or [facility]) in a manner consistent with CLIA requirements. One or more of these tests have not been cleared or approved by the FDA. [facility] is regulated under CLIA as qualified to perform high-complexity testing. These tests are used for clinical purposes. They should not be regarded as investigational or for research. Positive and negative controls stain appropriately. Performed By: #### L [id number] #### [facility] CLIA [id number] [address] [place] [address] FINAL DIAGNOSIS Normal [facility] Comment on above: Order Comment: Speci men Type: FORMALIN-FIXED PARAFFIN-EMBEDDED TISSUE SPECIMEN Ordering Facility: [facility] Address: [address] [place], [place] [phone] Result Comment: A. U rethral mass, excision: ([id number], 09/25/2023) - High-grade squamous intraepithelial lesion (see comment). Performed By: #### L [id number] #### [facility] CLIA [id number] [address] [place] [address] OF [facility] FINAL PERFORMING LAB Normal [facility] Comment on above: Order Comment: Speci men Type: FORMALIN-FIXED PARAFFIN-EMBEDDED TISSUE SPECIMEN Ordering Facility: [facility] Address: [address] [place] [phone] Result Comment: Diag nostic interpretation performed at [address] [address] CLIA# [id number] Clinical Dietetic Technician: Eleazar Sutherland M.D. Performed By: #### L [id number] #### [facility] CLIA [id number] [address] [place] [address] [id number] [place] [address] [place] Patient Educationon 10-06-19 [...] provider. Document Revised: 11/22/2021 Document Reviewed: 11/22/2021 [employer] Patient Education ? 2022 [employer]. [facility] Urology Office/Clinic Noteon 10-06-2023 Urology Office/Clinic [...] [facility] [address], [place] [address]- [phone] Additional Instructions: toro call pt to review [...] No. Wilma (more content not included)... Normal [facility] Comment on above: Result Comment: Elec tronically Signed By: Star RECINOS MD\.br\Date and Time Signed: 10/06/23 17:17 EDT\.br\Electronically Co-Signed By: Pari Anton\.br\Date and Time Co-Signed: 10/06/23 17:16 EDT Pathology Noteon 10-02-2023 Pathology Note [id number]#1.00TIFF [facility] Fabian 09-25-2023 L Specimen: [id number] Received: 09/26/23-1329 Status: SOUT Req Num: [id number] Spec Type: Surgical Subm Dr: Star Recinos MD Tissues: A Urethra Biopsy (URETHRAL MASS) Procedures: HE/2, Gross/Micro L4, Ki-67, CINtec p16, IHC First AB Age/ Patient Sex Location Account Attending Physician Brigitte High 72/F LABELL [id number] Star Recinos MD SPEC NUM: [id number] RECD: 09/26/23-1328 STATUS: MEHREEN TAVAREZ NUM: [id number] CRESCENCIO: 09/25/23- SUBM DR: Star Recinos MD ENTERED: 09/26/23-[address]: MARIA E TYPE: Surgical DEPT: HONG GARCIA ORDERED: HE/2, Gross/Micro L4, Ki-67, CINtec p16, IHC First AB ORDERED: HE/2, Gross/Micro L4, Ki-67, CINtec p16, IHC First AB, IMMUNOHISTOCHEM Supplemental Report Addendum 2 Entered: 10/20/23-1132 Supplemental for findings of consultation report from [facility]: -No discrepancy between the diagnosis of the original report and the findings of consultation report from [facility] -Please also see the first supplemental report issued below Addendum Signed (signature on file) Chicho-Freddy Horvath MD 10/20/23 113 Addendum 1 Entered: 10/16/23-1436 Urethral mass, excision: ? High-grade squamous intraepithelial lesion. ? Comment: This specimen was reviewed by Dr. Hema Ho at the [facility], who rendered the diagnosis above. She noted that no invasive carcinoma is present in the sample examined. P16 immunostain performed at the referring institution is diffusely/strongly positive. Further, high-risk HPV CISH performed at the [facility] is positive. Specimen: [id number] Received: 09/26/23 Status: MEHREEN Tavarez Num: [id number] Spec Type: Surgical Subm Dr: Star Recinos MD Tissues: A Urethra Biopsy (URETHRAL MASS) Procedures: HE/2, Gross/Micro L4, Ki-67, CINtec p16, IHC First AB Patient: Brigitte High [id number] (Continued) Specimen: [id number] Received: 09/26/23 (Continued) Supplemental Report (Continued) Signed (signature on file) Rocío Horvath MD 09/29/23 1838 Specimen: [id number] Received: 09/26/23 Status: MEHREEN Tavarez Num: [id number] Spec Type: Surgical Subm Dr: Star Recinos MD Tissues: A Urethra Biopsy (URETHRAL MASS) Procedures: HE/2, Gross/Micro L4, Ki-67, CINtec p16, IHC First AB Patient: Brigitte High [id number] (Continued) Specimen: [id number] Received: 09/26/23-1329 (Continued) Supplemental Report (Continued) Addendum [...] in one cassette labeled A1. CPT Codes 42894 53607, 32793 Specimen: [id number] Received: 09/26/23 Status: MEHREEN Tavarez Num: [id number] Spec Type: Surgical Subm Dr: Star Recinos MD Tissues: A Urethra Biopsy (URETHRAL MASS) Procedures: HE/2, Gross/Micro L4, Ki-67, CINtec p16, IHC First AB Patient: KodyJody macdonaldie [id number] (Continued) Signed (signature on file)___ (more content not included)... Normal [facility] Operative Reporton 4 Operative Report [id number]#1.00TIFF [facility] Provider Letteron 09-16-2023 Provider Letter (Inserted Image. Laura ble to display) September 16, 2023 BRIGITTE HIGH [address] [place] [phone] : 1950 To Whom It May Concern, Please excuse above patient from work. Date of Illness: From: 09/25/2023 To: 10/09/2023 May Return to Work On:10/10/2023 Restrictions: N/A Comments: Patient is having a surgical procedure done 09/25/23, and may return to work on 10/10/23 without restrictions. Sincerely, [facility] ECG 12-Leadon 09-12-2023 ECG 12-Lead [id number]#1.00TIFF [facility] Lab Reportson 09-12-2023 Lab Reports [id number]#1.00TIFF [facility] Lab Reports [id number]#1.00TIFF [facility] Consent for Procedure/Surger yon 09-10-2023 Consent for Procedure/Surgery [id number]#1.00TIFF [facility] Operative Reporton 4 Operative Report [id number]#1.00TIFF [facility] Physician Referralon 024 Physician Referral [id number]#1.00TIFF [facility] Consent for Procedure/Surger yon 08-26-2023 Consent for Procedure/Surgery [id number]#1.00TIFF Normal [facility] RAD - CT Reporton 08-26-2023 RAD - CT Report [id number]#1.00TIFF Normal [facility] Ambulatory Visit Summaryon 0 08-25-2023 Ambulatory [...] cysto/UD Where: [facility] [address] , [place] [address]- [phone] Medications What How Much When Instructions New amoxicillin-clavulanate (Augmentin 875 mg oral tablet) 1 Tablets By Mouth Every 24 hours Duration: 30 Days Refills: 1 Take with probiotics and with food. Pickup at [facility]/pharmacy #[id number] Unchanged calcium-vitamin D Contact prescribing physician if questions or concerns Unchanged multivitamin with iron Contact prescribing physician if questions or concerns Unchanged phentermine (Adipex-P) By Mouth Every day Contact prescribing physician if questions or concerns Pharmacy Information [facility]/pharmacy #[id number]: [address], [place] [phone] Allergies Tylenol (Ringing in ears) Problems Ongoing [...] Follow these (more content not included)... Normal [facility] Ambulatory Visit Summary BRIGITTE HIGH :1950 [...] these instructions at home: Medicines ? Take zewy-uus-wmybxmo and prescription medicines only as told by [...] back chacha (more content not included)... Normal [facility] Formson 08-25-2023 Forms [id number]#1.00TIFF Normal [facility] Patient Educationon 08-25-19 24 Patient Education [...] these instructions at home: Medicines ? Take wvvn-wwd-gijhxnt and prescription medicines only as told by [...] provider. Document Revised: 02/23/2021 Document Reviewed: 02/23/2021 [employer] Patient Education ? 2022 MYFX. [facility] 04-02-2023 CATHYN Telephone (PLASAV) ----- BRIGITTE HIGH ([id number]) 1950 F Date Time Provider Department 04/02/23 [...] Encounter Status:Closed by KYRA PAGE on 04/02/23 [facility] CNOVon 03-28-2023 CNOV Office Visit (PLASAM ) ----- BRIGITTE HIGH ([id number]) 1950 F Date Time Provider Department 03/28/23 [...] Encounter Status:Closed by Lawrence MEDINA on 03/28/23 [facility] MRI BREAST WO IVCON BILon MRI BREAST WO IVCON CHRIS * * *Final Report* * * DATE OF EXAM: Mar 25 2023 2:01PM [facility] 0699 - MRI BREAST WO IVCON CHRIS / PROCEDURE REASON: History of breast cancer * * * * Physician Interpretation * * * * #[id number] - MRI BREAST WO IVCON CHRIS BREAST [...] breast cancer. Marva Bonilla M.D. tr/renato:03/26/2023 11:11:18 Service Member(s): Gray Mcdonald RT(R), [facility] MRI BI-RADS: n/a Multiple national specialty organizations have released breast cancer screening guidelines for women at average risk for developing breast cancer - guidelines that are based on both evidence and opinion, yet differ on when to start and how often to screen for breast cancer. With representation from Breast Imaging, Internal Medicine, Women's Health, Family Medicine, and Medical/Surgical Oncology, the [facility] has carefully reviewed the data and reached [...] their providers when to stop screening mammograms. Shop Foreman: Renato Transcribe Date/Time: Mar 25 2023 1:29P Dictated by : MARVA BONILLA MD This examination was interpreted and the report reviewed and electronically signed by: MARVA BONILLA MD on Mar 26 2023 11:11AM EST [id number] Normal [facility] Established Visit (Orthopaed ic Surgery)on 02-11-2023 Established Visit (Orthopaedic Surgery) Diagnoses/Problems Assessed Patella fracture (822.0) (S82.009A) Orders Patella fracture Xray Knee 3 View; Status:Resulted - Preliminary,Retrospective Authorization; Done: [id number] 10:14AM Laterality : Left Radiologist to Determine [...] INDICATION: . S82.009A: Patella fracture. ACCESSION NUMBER(S): [id number] ORDERING CLINICIAN: SANDRA TAYLOR FINDINGS: Left knee films show transverse patellar fracture to stable in satisfactory position. There is filling in at the fracture site. There is moderate degenerative change seen in the medial and lateral compartments of the knee. There is also moderate degenerative change seen in the patellofemoral joint Electronically signed by: SANDRA TAYLOR MD Normal [facility] Radiologyon 02-11-2023 XR Knee 3 Views Normal [facility] Work Phone: Clinic Note - Heme Onc Sched ulingon 01-20-2023 Clinic Note - Heme Onc Scheduling Retrieve Patient Instructions: Patient Instructions: Patient Instructions: RetrievePatient Instructions Instructions Printed Schedule End of Visit Documentation: Clinic Location/Phone Number: Clinic Location/Phone Number: [place] [phone] End Of Visit MU Report Item: Visit Summary given or mailed to patientyes Mailed Appointments Electronic Signatures: Fatimah Melendez (Rev Cycl Spec) (Signed 20-Jan-2023 09:06) Authored: Retrieve Patient Instructions, End of Visit Documentation Last Updated: 20-Jan-2023 09:06 by Fatimah Melendez (Rev Cycl Spec) Normal [facility] CA27.29on 01-18-2023 CA27.29 53.0 U/mL High 0.0 - 38.6 [place] Comment on above: Result Comment: CA 2 7.29 testing is performed by chemiluminescent immunoassay using the [employer]. Values obtained with different analytic methods cannot [...] decisions. Performed By: #### C 2729 #### [facility] [address] [place] [address] CA27.29 (CA15-3)on 3 Cancer Ag 27-29 Qn 53.0 [arb'U]/mL above high threshold 0.0 - 38.6 -[facility] Work Phone: Comment on above: CA 27.29 testing is performed by chemiluminescent immunoassay using the [employer]. Values obtained with different analytic methods cannot [...] Patient is a transfer her care from [facility]. Dr. Jing Campbell is her PCP. The patient is transferring her medical oncology care here, after having been cared for by Dr. Aleyda Richardson. Her Juan Sheffield was a patient of our practice and in early 2018. Last reported mammogram 06/05/2016 done in [place]. She has history of left sided breast [...] margin, lymphovascular invasion not definite; ER neg, LA neg, BRW0ggj neg. The patient does not recall what [...] and chest xray to be done at [facility] this upcoming Friday. She also happens [...] now due to intolerable waits at the [place] office. 12/27/2019: Here for annual visit in the setting of history of breast cancer. Her most recent mammogram done on December 30 2018 and that was negative. 12/26/2020 here for interval followup; looking forward to going back to [place] in near future 01/18/2022 here for interval followup; has no complaints 01/17/2023 here for interval followup; now living in [facility] PAST MEDICAL HISTORY: History of sleep apnea, [...] Eyes, Itching, (more content not included)... Normal [facility] Clinic Note - Intakeon 01-17 [...] 13:29 by Iona Ríos (DAMION II) Normal [facility] BILATERAL KNEE 1 OR 2 VIEWSo n 01-07-2023 BILATERAL KNEE 1 OR 2 VIEWS Patient Name: BRIGITTE HIGH STUDY: BILATERAL KNEE; 1 OR 2 VIEWS; Left; 01/07/2023 9:57 am INDICATION: FX S82.009A: Patella fracture. ACCESSION NUMBER(S): [id number] ORDERING CLINICIAN: SANDRA TAYLOR FINDINGS: Bilateral knee films show on the right no fracture, dislocation or destructive lesion. There is mild to moderate degenerative change seen. The left knee patellar fracture is in stable position. It is nondisplaced. There is some filling in at the fracture site. Electronically signed by: SANDRA TAYLOR MD Normal [facility] Established Visit (Orthopaed ic Surgery)on [...] Status: Hold For - Scheduling Requested for: [id number] Chief Complaint F/U Subacute left patella fracture [...] History o (more content not included)... Normal [employer] Established Visit (Orthopaed ic Surgery)on 12-10-2022 Established Visit (Orthopaedic Surgery) Diagnoses/Problems Assessed Other closed fracture of patella, unspecified laterality, initial encounter (822.0) (S82.502P) Chief Complaint Left knee pain Patient to [...] and went to a hospital back in [place] and had x-rays. 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 Destini Horvath XR RIBS LT PA [...] ILDEFONSO HO Date: 2022-08-19 06:59 Normal [facility] CBC AUTO DIFFon 08-17-2022 BASO # 0.1 103/ul Normal 0.0-0.1 [facility] Comment on above: Performed By: #### C BC #### [facility] [address] [place] [address] Dr. Destini Horvath Basophils/100 WBC (Bld) 1.1 % Normal 0.2-2.0 [facility] Comment on above: Performed By: #### C BC #### [facility] [address] [place] [address] Dr. Destini Horvath EO # 0.2 103/ul Normal 0.0-0.7 [facility] Comment on above: Performed By: #### C BC #### [facility] [address] [place] [address] Dr. Destini Horvath Eosinophils/100 WBC (Bld) 2.9 % Normal 0.9-7.0 [facility] Comment on above: Performed By: #### C BC #### [facility] [address] [place] [address] Dr. Destini Horvath Erythrocyte distribution width (RBC) [Ratio] 13.4 % Normal 11.0-15.0 [facility] Comment on above: Performed By: #### C BC #### [facility] [address] [place] [address] Dr. Destini Horvath Hematocrit (Bld) [Volume fraction] 35.2 % Critically low 36.0-48.0 [facility] Comment on above: Performed By: #### C BC #### [facility] [address] [place] [address] Dr. Destini Horvath Hemoglobin (Bld) [Mass/Vol] 12.4 g/dL Normal 12.0-16.0 [facility] Comment on above: Performed By: #### C BC #### [facility] [address] [place] [address] Dr. Destini Horvath IG # 0.01 10e3/ul Normal 0.00-0.03 [facility] Comment on above: Performed By: #### C BC #### [facility] [address] [place] [address] Dr. Destini Horvath IG % 0.2 % Normal 0.0-0.5 [facility] Comment on above: Performed By: #### C BC #### [facility] [address] [place] [address] Dr. Destini Horvath LYMPH # 2.5 103/ul Normal 1.2-3.8 [facility] Comment on above: Performed By: #### C BC #### [facility] [address] [place] [address] Dr. Destini Horvath Lymphocytes/100 WBC (Bld) 45.6 % Normal 20.5-60.0 [facility] Comment on above: Performed By: #### C BC #### [facility] [address] [place] [address] Dr. Destini Horvath MANUAL DIFF REQ NO Normal [facility] Comment on above: Performed By: #### C BC #### [facility] [address] [place] [address] Dr. eDstini Horvath MCH (RBC) [Entitic mass] 30.1 pg Normal 26.7-34.0 [facility] Comment on above: Performed By: #### C BC #### [facility] [address] [place] [address] Dr. Destini Horvath MCHC (RBC) [Mass/Vol] 35.2 g/dL Normal 29.9-35.2 [facility] Comment on above: Performed By: #### C BC #### [facility] [address] [place] [address] Dr. Destini Horvath MCV (RBC) [Entitic vol] 85.4 fL Normal 81.0-99.0 [facility] Comment on above: Performed By: #### C BC #### [facility] [address] [place] [address] Dr. Destini Horvath MONO # 0.5 103/ul Normal 0.3-0.8 [facility] Comment on above: Performed By: #### C BC #### [facility] [address] [place] [address] Dr. Destini Horvath Monocytes/100 WBC (Bld) 8.3 % Normal 1.7-12.0 [facility] [facility] Comment on above: Performed By: #### C BC #### [facility] [address] [place] [address] Dr. Destini Horvath NEUT # 2.3 103/ul Normal 1.4-6.5 [facility] Comment on above: Performed By: #### C BC #### [facility] [address] [place] [address] Dr. Destini Horvath Neutrophils/100 WBC (Bld) 41.9 % Critically low 43.0-75.0 [facility] Comment on above: Performed By: #### C BC #### [facility] [address] [place] [address] Dr. Destini Horvath Platelet mean volume (Bld) [Entitic vol] 9.6 fL Normal 9.5-13.5 [facility] Comment on above: Performed By: #### C BC #### [facility] [address] [address] [address] Destini Horvath PLT 262 103/ul Normal 150-450 [facility] Comment on above: Performed By: #### C BC #### [facility] [address] [address] [address] Destini Horvath RBC 4.12 106/ul Critically low 4.20-5.40 [facility] Comment on above: Performed By: #### C BC #### [facility] [address] [address] [address] Destini Horvath WBC 5.6 103/ul Normal 4.0-11.0 [facility] Comment on above: Performed By: #### C BC #### [facility] [address] [place] [address] Dr. Destini Horvath FREE THYROXINE INDEX T7on FTI 2.14 Normal 1.30-4.50 [facility] Comment on above: Performed By: #### T SH, LIPID, CMP, T7 #### [facility] [address] [place] [address] Dr. Destini Horvath T3U 34.0 % Normal 30.0-39.0 [facility] Comment on above: Performed By: #### T SH, LIPID, CMP, T7 #### [facility] [address] [place] [address] Dr. Destini Horvath T4 [Mass/Vol] 6.30 ug/dL Normal 4.80-13.90 [facility] Comment on above: Performed By: #### T SH, LIPID, CMP, T7 #### [facility] [address] [place] [address] Dr. Destini Horvath GLYCOHEMOGLOBIN A1Con 2022 ADA RECOMMENDATION SEE BELOW Normal [facility] Comment on above: Result Comment: ADA RECOMMENDED LIMIT 4.0 - 6.0 ADA THERAPEUTIC TARGET < 7.0 ACTION SUGGESTED > 7.0 Performed By: #### U RCX #### [facility] [address] [address] [address] Destini Horvath Glucose [Mass/Vol] 117 mg/dL Normal [facility] Comment on above: Performed By: #### U RCX #### [facility] [address] [place] [address] Dr. Destini Horvath HbA1c (Bld) [Mass fraction] 5.7 % Normal 4.5-6.2 [facility] Comment on above: Performed By: #### U RCX #### [facility] [address] [place] [address] Dr. Destini Horvath IRONon 08-17-2022 Iron [Mass/Vol] 39.0 ug/dL Critically low 50.0-170.0 [facility] Comment on above: Performed By: #### U RCX #### [facility] [address] [place] [address] Dr. Destini Horvath LIPID PROFILEon 08-17-2022 CHOL-HDL RATIO NORM SEE BELOW Normal [facility] Comment on above: Result Comment: 3.3 - 4.4 LOW RISK 4.4 - 7.1 AVERAGE RISK 7.1 - 11.0 MODERATE RISK >11.0 HIGH RISK Performed By: #### T SH, LIPID, CMP, T7 #### [facility] [address] [place] [address] Dr. Destini Horvath Cholesterol [Mass/Vol] 191 mg/dL Normal <=200 [facility] Comment on above: Performed By: #### T SH, LIPID, CMP, T7 #### [facility] [address] [place] [address] Dr. Destini Horvath Cholesterol in HDL [Mass/Vol] 109 mg/dL Critically high 40-60 [facility] Comment on above: Performed By: #### T SH, LIPID, CMP, T7 #### [facility] [address] [place] [address] Dr. Destini Horvath Cholesterol in LDL [Mass/Vol] 69.2 mg/dL Normal [facility] Comment on above: Performed By: #### T SH, LIPID, CMP, T7 #### [facility] [address] [place] [address] Dr. Destini Horvath Cholesterol.total/ Cholesterol in HDL [Mass ratio] 1.8 {ratio} Normal [facility] Comment on above: Performed By: #### T SH, LIPID, CMP, T7 #### [facility] [address] [address] [address] Destini Horvath HDL NORMAL > or = 60 mg/dl - LO W CARDIOVASCULAR RISK <40 mg/dl - HIGH CARDIOVASCULAR RISK Normal [facility] Comment on above: Performed By: #### T SH, LIPID, CMP, T7 #### [facility] [address] [address] [address] Destini Horvath LDL CALC NORMAL SEE BELOW Normal [facility] Comment on above: Result Comment: <100 mg/dl OPTIMAL 100 - 129 mg/dl NEAR OR ABOVE OPTIMAL 130 - 159 mg/dl BORDERLINE HIGH 160 - 189 mg/dl HIGH >190 mg/dl VERY HIGH Performed By: #### T SH, LIPID, CMP, T7 #### [facility] [address] [address] [address] Destini Horvath Triglyceride [Mass/Vol] 64 mg/dL Normal <=150 [facility] Comment on above: Performed By: #### T SH, LIPID, CMP, T7 #### [facility] [address] [place] [address] Dr. Destini Horvath VLDL CALC 12.8 mg/dL Normal [facility] Comment on above: Performed By: #### T SH, LIPID, CMP, T7 #### [facility] [address] [place] [address] Dr. Destini Horvath PROF 14(COMP METB)on 023 Albumin [Mass/Vol] 3.6 g/dL Normal 3.4-5.0 [facility] Comment on above: Performed By: #### T SH, LIPID, CMP, T7 #### [facility] [address] [place] [address] Dr. Destini Horvath Albumin/Globulin [Mass ratio] 1.0 {ratio} Normal [facility] Comment on above: Performed By: #### T SH, LIPID, CMP, T7 #### [facility] [address] [address] [address] Destini Horvath ALP [Catalytic activity/Vol] 101 U/L Normal 46-116 [facility] Comment on above: Performed By: #### T SH, LIPID, CMP, T7 #### [facility] [address] [place] [address] Dr. Destini Horvath ALT [Catalytic activity/Vol] 27 U/L Normal 14-59 [facility] Comment on above: Performed By: #### T SH, LIPID, CMP, T7 #### [facility] [address] [place] [address] Dr. Destini Horvath Anion gap [Moles/Vol] 15.0 mmol/L Normal [facility] Comment on above: Performed By: #### T SH, LIPID, CMP, T7 #### [facility] [address] [place] [address] Dr. Destini Horvath AST [Catalytic activity/Vol] 22 U/L Normal 15-37 [facility] Comment on above: Performed By: #### T SH, LIPID, CMP, T7 #### [facility] [address] [place] [address] Dr. Destini Horvath Bilirubin [Mass/Vol] 0.3 mg/dL Normal 0.2-1.0 [facility] Comment on above: Performed By: #### T SH, LIPID, CMP, T7 #### [facility] [address] [place] [address] Dr. Destini Horvath Calcium [Mass/Vol] 9.2 mg/dL Normal 8.5-10.1 [facility] Comment on above: Performed By: #### T SH, LIPID, CMP, T7 #### [facility] [address] [place] [address] Dr. Destini Horvath Chloride [Moles/Vol] 108 mmol/L Critically high 98-107 [facility] Comment on above: Performed By: #### T SH, LIPID, CMP, T7 #### [facility] [address] [place] [address] Dr. Destini Horvath CO2 [Moles/Vol] 23.7 mmol/L Normal 21.0-32.0 [facility] Comment on above: Performed By: #### T SH, LIPID, CMP, T7 #### [facility] [address] [address] [address] Destini Horvath Creatinine [Mass/Vol] 0.59 mg/dL Normal 0.55-1.02 [facility] Comment on above: Performed By: #### T SH, LIPID, CMP, T7 #### [facility] [address] [address] [address] Destini Horvath EGFR-AF KYRGYZ >60 Normal >=60 [facility] Comment on above: Performed By: #### T SH, LIPID, CMP, T7 #### [facility] [address] [address] [address] Destini Horvath EGFR-NON AF KYRGYZ >60 Normal >=60 [facility] Comment on above: Performed By: #### T SH, LIPID, CMP, T7 #### [facility] [address] [address] [address] Destini Horvath Globulin (S) [Mass/Vol] 3.7 g/dL Normal [facility] Comment on above: Performed By: #### T SH, LIPID, CMP, T7 #### [facility] [address] [address] [address] Destini Horvath Glucose [Mass/Vol] 91 mg/dL Normal 74-106 [facility] Comment on above: Performed By: #### T SH, LIPID, CMP, T7 #### [facility] [address] [address] [address] Destini Horvath Potassium [Moles/Vol] 3.7 mmol/L Normal 3.5-5.1 [facility] Comment on above: Performed By: #### T SH, LIPID, CMP, T7 #### [facility] [address] [address] [address] Destini Horvath Protein [Mass/Vol] 7.3 g/dL Normal 6.4-8.2 [facility] Comment on above: Performed By: #### T SH, LIPID, CMP, T7 #### [facility] [address] [place] [address] Dr. Destini Horvath Sodium [Moles/Vol] 143 mmol/L Normal 136-145 [facility] Comment on above: Performed By: #### T SH, LIPID, CMP, T7 #### [facility] [address] [address] [address] Destini Horvath Urea nitrogen [Mass/Vol] 17.0 mg/dL Normal 7.0-18.0 [facility] Comment on above: Performed By: #### T SH, LIPID, CMP, T7 #### [facility] [address] [address] [address] Destini Horvath Urea nitrogen/Creatinin e [Mass ratio] 28.8 mg/mg Normal [facility] Comment on above: Performed By: #### T SH, LIPID, CMP, T7 #### [facility] [address] [place] [address] Dr. Destini Horvath TSHon 08-17-2022 TSH 2.888 uIU/mL Normal 0.358-3.740 [facility] Comment on above: Performed By: #### T SH, LIPID, CMP, T7 #### [facility] [address] [place] [address] Dr. Destini Horvath Covid-19 PCR ([facility])on SARS-CoV-2 (COVID-19) RNA MARY+probe Ql (Unsp spec) Not detected Normal NOT DETECTED [facility] Comment on above: Result Comment: When diagnostic [...] for this test is supported by the May of Health and Human Service's declaration that [...] used). Performed By: #### C VDTBH #### [facility] [address] [place] [address] Dr. Destini Horvath INFLUENZA A AND B [facility] 07-05 [facility] SEE BELOW Normal [facility] Comment on above: Result Comment: Nega tive for Flu A protein angiten. Infection due to Flu A cannot be ruled out. Flu A angiten in the sample may be below the detection limit of the test. Performed By: #### U RCX #### [facility] [address] [place] [address] Dr. Destini Horvath INFLUBNEG SEE BELOW Normal [facility] Comment on above: Result Comment: Nega tive for Flu B protein antigen. Infection due to Flu B cannot be ruled out. Flu B antigen in the sample may be below the detection limit of the test. Performed By: #### U RCX #### [facility] [address] [place] [address] Dr. Destini Horvath INFLUENZA A AG Negative Normal NEGATIVE SEE COMMENT [facility] Comment on above: Performed By: #### U RCX #### [facility] [address] [place] [address] Dr. Destini Horvath INFLUENZA B AG Negative Normal NEGATIVE SEE COMMENT [facility] Comment on above: Performed By: #### U RCX #### [facility] [address] [place] [address] Dr. Destini Horvath INTERNAL CONTROLS Within Normal Limits Normal Wi thin Normal Limits [facility] Comment on above: Performed By: #### U RCX #### [facility] [address] [place] [address] Dr. Destini Horvath CULTURE URINEon 06-30-2022 CULTURE [...] Trimethoprim/Sulfamethoxa zole <=20 S F Normal [facility] Comment on above: Performed By: #### U RCX #### [facility] [address] [place] [address] Dr. Destini Horvath UA RANDOM W/MICROSCOPICon BACTERIA LARGE Abnormal NONE SEEN [facility] Comment on above: Performed By: #### U RCX #### [facility] [address] [place] [address] Dr. Destini Horvath Bilirubin Ql (U) Negative Normal NEGATIVE [facility] Comment on above: Performed By: #### U RCX #### [facility] [address] [place] [address] Dr. Destini Horvath CAST NONE SEEN Normal NONE SEEN [facility] Comment on above: Performed By: #### U RCX #### [facility] [address] [place] [address] Dr. Destini Horvath Clarity (U) SL CLOUDY Abnormal CLEAR [facility] Comment on above: Performed By: #### U RCX #### [facility] [address] [place] [address] Dr. Destini Horvath Color (U) LT. YELLOW Normal YELLOW [facility] Comment on above: Performed By: #### U RCX #### [facility] [address] [place] [address] Dr. Destini Horvath Crystals LM Nom (Urine sed) NONE SEEN Normal NONE SEEN [facility] Comment on above: Performed By: #### U RCX #### [facility] [address] [place] [address] Dr. Destini Horvath Epithelial cells LM Ql (Urine sed) FEW Abnormal NONE SEEN /RARE [facility] Comment on above: Performed By: #### U RCX #### [facility] [address] [place] [address] Dr. Destini Horvath Glucose Ql (U) Negative Normal NEGATIVE [facility] Comment on above: Performed By: #### U RCX #### [facility] [address] [place] [address] Dr. Destini Horvath Hemoglobin Ql (U) TRACE-INTACT Abnormal NEGATIVE [facility] Comment on above: Performed By: #### U RCX #### [facility] [address] [address] [address] Destini Horvath Ketones Ql (U) Negative Normal NEGATIVE [facility] Comment on above: Performed By: #### U RCX #### [facility] [address] [address] [address] Destini Horvath LEUKOCYTES MODERATE Abnormal NEGATIVE [facility] Comment on above: Performed By: #### U RCX #### [facility] [address] [place] [address] Dr. Destini Horvath MUCOUS NONE SEEN Normal NONE SEEN [facility] Comment on above: Performed By: #### U RCX #### [facility] [address] [place] [address] Dr. Destini Horvath Nitrite Ql (U) Negative Normal NEGATIVE [facility] Comment on above: Performed By: #### U RCX #### [facility] [address] [place] [address] Dr. Destini Horvath pH (U) 5.5 [pH] Normal 5-9 [facility] Comment on above: Performed By: #### U RCX #### [facility] [address] [place] [address] Dr. Destini Horvath RBC 2-5 Abnormal 0-2 [facility] Comment on above: Performed By: #### U RCX #### [facility] [address] [address] [address] Destini Horvath SPEC GRAVITY 1.015 Normal 1.005-<=1.02 5 [facility] Comment on above: Performed By: #### U RCX #### [facility] [address] [place] [address] Dr. Destini Horvath UA PROTEIN Negative Normal NEGATIVE/ TRACE [facility] Comment on above: Performed By: #### U RCX #### [facility] [address] [place], [place] [address] Dr. Destini Horvath Urobilinogen Qn (U) 0.2 {Abner'U}/dL Normal 0.2 - 1.0 [facility] Comment on above: Performed By: #### U RCX #### [facility] [address] [place], [place] [address] Dr. Destini Horvath WBC (U) [#/Vol] /uL Abnormal NONE SEEN [facility] Comment on above: Performed By: #### U RCX #### [facility] [address] [place], [place] [address] Dr. Destini Horvath CBCon 04-29-2022 Erythrocyte distribution width (RBC) [Ratio] 14.0 % Normal 11.5 - 14.5 [facility] Comment on above: Performed By: #### C BC #### [address] [id number] Hematocrit (Bld) [Volume fraction] 41.0 % Normal 36.0 - 46.0 [facility] Comment on above: Performed By: #### C BC #### [address] [id number] Hemoglobin (Bld) [Mass/Vol] 12.9 g/dL Normal 12.0 - 16.0 [facility] Comment on above: Performed By: #### C BC #### [address] [id number] MCHC (RBC) [Mass/Vol] 31.5 g/dL Low 32.0 - 36.0 [facility] Comment on above: Performed By: #### C BC #### [address] [id number] MCV (RBC) [Entitic vol] 97 fL Normal 80 - 100 [facility] Comment on above: Performed By: #### C BC #### [address] [id number] Platelets (Bld) [#/Vol] 268 10*3/uL Normal 150 - 450 [facility] Comment on above: Performed By: #### C BC #### [address] [id number] RBC 4.24 x10E12/L Normal 4.00 - 5.20 [facility] Comment on above: Performed By: #### C BC #### [address] [id number] WBC (Bld) [#/Vol] 6.0 10*3/uL Normal 4.4 - 11.3 [facility] Comment on above: Performed By: #### C BC #### [address] [id number] COMPREHENSIVE PANELon 2021 Albumin [Mass/Vol] 4.2 g/dL Normal 3.4 - 5.0 [facility] Comment on above: Performed By: #### C MP #### [address] [id number] ALP [Catalytic activity/Vol] 71 U/L Normal 33 - 136 [facility] Comment on above: Performed By: #### C MP #### [address] [id number] ALT [Catalytic activity/Vol] 23 U/L Normal 7 - 45 [facility] Comment on above: Result Comment: Luanne ents treated with Sulfasalazine may generate falsely decreased results for ALT. Performed By: #### C MP #### [address] [id number] Anion gap [Moles/Vol] 13 mmol/L Normal 10 - 20 [facility] Comment on above: Performed By: #### C MP #### [address] [id number] AST [Catalytic activity/Vol] 24 U/L Normal 9 - 39 [facility] Comment on above: Performed By: #### C MP #### [address] [id number] Bilirubin [Mass/Vol] 0.4 mg/dL Normal 0.0 - 1.2 [facility] Comment on above: Performed By: #### C MP #### [address] [id number] Calcium [Mass/Vol] 9.4 mg/dL Normal 8.6 - 10.3 [facility] Comment on above: Performed By: #### C MP #### [address] [id number] Chloride [Moles/Vol] 106 mmol/L Normal 98 - 107 [facility] Comment on above: Performed By: #### C MP #### [address] [id number] Creatinine [Mass/Vol] 0.69 mg/dL Normal 0.50 - 1.05 [facility] Comment on above: Performed By: #### C MP #### [address] [id number] eGFR FEMALE >90 Normal >90 [facility] Comment on above: Result Comment: CALC ULATIONS OF ESTIMATED GFR ARE PERFORMED USING THE 2020 CKD-EPI STUDY REFIT EQUATION WITHOUT THE RACE VARIABLE FOR THE IDMS-TRACEABLE CREATININE METHODS. https://jasn.asnjournals.org/content//ASN.842245792 8 Performed By: #### C MP #### [address] [id number] Glucose [Mass/Vol] 79 mg/dL Normal 74 - 99 [facility] Comment on above: Performed By: #### C MP #### [address] [id number] HCO3 (Bld) [Moles/Vol] 25 mmol/L Normal 21 - 32 [facility] Comment on above: Performed By: #### C MP #### [address] [id number] Potassium [Moles/Vol] 4.1 mmol/L Normal 3.5 - 5.3 [facility] Comment on above: Performed By: #### C MP #### [address] [id number] Protein [Mass/Vol] 7.4 g/dL Normal 6.4 - 8.2 [facility] Comment on above: Performed By: #### C MP #### [address] [id number] Sodium [Moles/Vol] 140 mmol/L Normal 136 - 145 [facility] Comment on above: Performed By: #### C MP #### [address] [id number] Urea nitrogen [Mass/Vol] 12 mg/dL Normal 6 - 23 [facility] Comment on above: Performed By: #### C MP #### [address] [id number] LIPID PANEL (CORONARY RISK 2 )on 04-29-2022 Cholesterol [Mass/Vol] 198 mg/dL Normal 0 - 199 [facility] Comment on above: Result Comment: [...] dosing. Performed By: #### L IPID #### [address] [id number] Cholesterol in HDL [Mass/Vol] 89.0 mg/dL Normal [facility] Comment on above: Result Comment: . AGE VERY LOW LOW NORMAL HIGH 0-19 Y < 35 < 40 40-45 ---- 20-24 Y ---- < 40 >45 ---- >24 Y ---- < 40 40-60 >60 . Performed By: #### L IPID #### [address] [id number] Cholesterol in LDL [Mass/Vol] 87 mg/dL Normal 0 - 99 [facility] Comment on above: Result Comment: . NEAR BORD AGE DESIRABLE OPTIMAL HIGH HIGH VERY HIGH 0-19 Y 0 - 109 --- 110-129 >/= 130 ---- 20-24 Y 0 - 119 --- 120-159 >/= 160 ---- >24 Y 0 - 99 100-129 130-159 160-189 >/=190 . Performed By: #### L IPID #### [address] [id number] Cholesterol in VLDL [Mass/Vol] 22 mg/dL Normal 0 - 40 [facility] Comment on above: Performed By: #### L IPID #### [address] [id number] Cholesterol.total/ Cholesterol in HDL [Mass ratio] 2.2 {ratio} Normal [facility] Comment on above: Result Comment: REF VALUES DESIRABLE < 3.4 HIGH RISK > 5.0 Performed By: #### L IPID #### [address] [id number] Triglyceride [Mass/Vol] 109 mg/dL Normal 0 - 149 [facility] Comment on above: Result Comment: [...] dosing. Performed By: #### L IPID #### [address] [id number] Laboratory - Chemistry and C hemistry - challengeon 04-29-2022 Albumin BCP dye [Mass/Vol] 4.2 g/dL 3.4 - 5.0 [id number]-Ztxr 2535A Work Phone: ALP [Catalytic activity/Vol] 71 U/L 33 - 136 WI-CVOC-Dzbu 2535A Work Phone: ALT With P-5'-P [Catalytic activity/Vol] 23 U/L 7 - 45 HF-IXES-Ptiz 2535A Work Phone: Comment on above: Patients treated wit h Sulfasalazine may generate falsely decreased results for ALT. Anion gap [Moles/Vol] 13 mmol/L 10 - 20 TF-TLFY-Wlfw 2535A Work Phone: AST With P-5'-P [Catalytic activity/Vol] 24 U/L 9 - 39 CT-XNRH-Oxjx 2535A Work Phone: Bilirubin [Mass/Vol] 0.4 mg/dL 0.0 - 1.2 VP-CRCT-Qpqf 2535A Work Phone: Calcium [Mass/Vol] 9.4 mg/dL 8.6 - 10.3 MP-WSP C-Laila Óscar Work Phone: Chloride [Moles/Vol] 106 mmol/L 98 - 107 PH-IARG-Fsah 2535A Work Phone: CO2 [Moles/Vol] 25 mmol/L 21 - 32 MP-WSPC-A von Óscar Work Phone: Creatinine [Mass/Vol] 0.69 mg/dL See Below PB-TKCU-Pdeg 2535A Work Phone: Comment on above: Reference Range: 0.5 0 - 1.05 Glucose [Mass/Vol] 79 mg/dL 74 - 99 MP-WSP C-[place] 2535A Work Phone: Potassium [Moles/Vol] 4.1 mmol/L 3.5 - 5.3 GF-FLRC-Qidb 2535A Work Phone: Protein [Mass/Vol] 7.4 g/dL 6.4 - 8.2 MP-WSP C-Laila Óscar5A Work Phone: Sodium [Moles/Vol] 140 mmol/L 136 - 145 MP-WSP C-Laila 2535A Work Phone: Urea nitrogen [Mass/Vol] 12 mg/dL 6 - 23 VT-KRLC-Zhvg 2535A Work Phone: Laboratory - Hematology and Cell countson 04-29-2022 Erythrocyte distribution width (RBC) [Ratio] 14.0 % See Below UT-VZBI-Lfsl 2535A Work Phone: Comment on above: Reference Range: 11. 5 - 14.5 Hematocrit (Bld) [Volume fraction] 41.0 % See Below QJ-FUTT-Wsfm 2535A Work Phone: Comment on above: Reference Range: 36. 0 - 46.0 Hemoglobin (Bld) [Mass/Vol] 12.9 g/dL See Below UI-VTAR-Yyzb 2535A Work Phone: Comment on above: Reference Range: 12. 0 - 16.0 MCHC (RBC) [Mass/Vol] 31.5 g/dL below low threshold See Below NL-KATF-Bphd 2535A Work Phone: Comment on above: Reference Range: 32. 0 - 36.0 MCV (RBC) [Entitic vol] 97 fL 80 - 100 TT-GTGG-Zsnc 2535A Work Phone: Platelets (Bld) [#/Vol] 268 10*3/uL 150 - 450 GM-GNHJ-Siwn 2535A Work Phone: RBC (Bld) [#/Vol] 4.24 {x10E12/L} See Below MP -WSPC-Laila 2535A Work Phone: Comment on above: Reference Range: 4.0 0 - 5.20 WBC (Bld) [#/Vol] 6.0 10*3/uL 4.4 - 11.3 MP-WSP C-[place] 1033L Work Phone: Lipid Panelon 04-29-2022 Cholesterol [Mass/Vol] 198 mg/dL 0 - 199 IA-GROW-Gvpw 9143C Work Phone: Comment on above: . AGE [...] dosing. Cholesterol in HDL [Mass/Vol] 89.0 mg/dL VS-MTWW-Xxxj 9527Q Work Phone: Comment on above: . AGE VERY LOW LOW N ORMAL HIGH 0-19 Y < 35 < 40 40-45 ---- 20- 24 Y ---- < 40 >45 ---- >24 Y ---- < 40 40-60 >60. Cholesterol in LDL [Mass/Vol] 87 mg/dL 0 - 99 UI-PMWX-Plzf 5109Z Work Phone: Comment on above: . NEAR BORD AGE CHERRIE RABLE OPTIMAL HIGH HIGH VERY HIGH 0-19 Y 0 - 109 --- 110-129 >/= 130 ---- 20-24 Y 0 - 119 --- 120-159 >/= 160 ---- >24 Y 0 - 99 100-129 130-159 160-189 >/=190. Cholesterol.total/ Cholesterol in HDL [Mass ratio] 2.2 {ratio} EY-AOQE-Gyzj 1360Z Work Phone: Comment on above: REF VALUESDESIRABLE < 3.4HIGH RISK > 5.0 Triglyceride [Mass/Vol] 109 mg/dL 0 - 149 XH-TDFL-Zuih 9094F Work Phone: Comment on above: . AGE [...] Lipid Panel 22 mg/dL 0 - 40 VT-LGXG-Rztv 4214W Work Phone: Medicare Annual Wellness Vis iton [...] Touchworks No Panel Informationon 04-29 >90 >90 AmVac 6532N Work Phone: Comment on above: CALCULATIONS OF RYAN MATED GFR ARE PERFORMED USING THE 2020 CKD-EPI STUDY REFIT EQUATION WITHOUT THE RACE VARIABLE FOR THE IDMS-TRACEABLE CREATININE METHODS.https://jasn.asnjournals.org/content/early/ASN.2 856619946 TSHon 04-29-2022 TSH Qn 1.70 m[IU]/L Normal 0.44 - 3.98 [facility] Comment on above: Result Comment: TSH testing is performed using different testing methodology at [facility] than at other [facility]. Direct result comparisons should only be made within the same method. Performed By: #### [facility] ####[address] [id number] TSH - Thyroid Stimulating Ho rmone, Serumon 04-29-2022 TSH Qn 1.70 m[IU]/L See Below FY-GJVI-Kkls 9659P Work Phone: Comment on above: Reference Range: 0.4 4 - 3.98 TSH testing is performed using different testing methodology at [facility] than at other [facility]. Direct result comparisons should only be made within the same method. Tobacco Screening.on Adult depression screening assessment No VW-HKDB-Xiqq 2535A Work Phone: Fall risk assessment b) One or more falls in the last year EE-ZXXF-Yppg 2535A Work Phone: Tobacco use status [facility]PHS b) No MK-EKQB-Pzff 2535A Work Phone: VITAMIN B12on 04-29-2022 Cobalamin (Vitamin B12) [Mass/Vol] 417 pg/mL Normal 211 - 911 [facility] Comment on above: Performed By: #### V TB12 ####[facility] [place], [place] [phone] VITAMIN D, 25-HYDROXYon VITAMIN D, 25-HYDROXY 31 ng/mL Normal [facility] Comment on above: Result Comment: . DEFICIENCY: < 20 NG/ML INSUFFICIENCY: 20-29 NG/ML SUFFICIENCY: 30-100 NG/ML THIS ASSAY ACCURATELY QUANTIFIES THE SUM OF VITAMIN D3, 25-HYDROXY AND VIT D2,25-HYDROXY. Performed By: #### V TDOH #### [facility] [address] [place], [place] [id number] Vitamin B12, Serumon Cobalamin (Vitamin B12) [Mass/Vol] 417 pg/mL 91 JT-ZIEN-Xlkd 2535A Work Phone: Vitamin D 25-Hydroxyon 04-29 25-hydroxyvitamin D3 [Mass/Vol] 31 ng/mL QQ-VNLB-Lggz 2535A Work Phone: Comment on above: .DEFICIENCY: < 20 NG /MLINSUFFICIENCY: 20-29 NG/MLSUFFICIENCY: 30-100 NG/MLTHIS ASSAY ACCURATELY QUANTIFIES THE SUM OFVITAMIN D3, 25-HYDROXY AND VIT D2,25-HYDROXY. BASIC METABOLIC PANELon - Anion gap [Moles/Vol] 15 mmol/L Normal 10 - 20 [facility] Comment on above: Performed By: #### B MP #### [address] [phone] Calcium [Mass/Vol] 9.6 mg/dL Normal 8.6 - 10.3 [facility] Comment on above: Performed By: #### B MP #### [address] [phone] Chloride [Moles/Vol] 106 mmol/L Normal 98 - 107 [facility] Comment on above: Performed By: #### B MP #### [address] [phone] Creatinine [Mass/Vol] 0.80 mg/dL Normal 0.50 - 1.05 [facility] Comment on above: Performed By: #### B MP #### [address] [phone] GFR/1.73 sq M.predicted among non-blacks MDRD (S/P/Bld) [Vol rate/Area] 78 mL/min/{1.73_m2} Normal >90 [facility] Comment on above: Result Comment: CALC ULATIONS OF ESTIMATED GFR ARE PERFORMED USING THE 2020 CKD-EPI STUDY REFIT EQUATION WITHOUT THE RACE VARIABLE FOR THE IDMS-TRACEABLE CREATININE METHODS. https://jasn.asnjournals.org/content//ASN.425421525 8 Performed By: #### B MP #### [address] [id number] Glucose [Mass/Vol] 67 mg/dL Low 74 - 99 [facility] Comment on above: Performed By: #### B MP #### [address] [phone] HCO3 (Bld) [Moles/Vol] 22 mmol/L Normal 21 - 32 [facility] Comment on above: Performed By: #### B MP #### [address] [phone] Potassium [Moles/Vol] 3.6 mmol/L Normal 3.5 - 5.3 [facility] Comment on above: Performed By: #### B MP #### [address] [phone] Sodium [Moles/Vol] 139 mmol/L Normal 136 - 145 [facility] Comment on above: Performed By: #### B MP #### [address] [id number] Urea nitrogen [Mass/Vol] 17 mg/dL Normal 6 - 23 [facility] Comment on above: Performed By: #### B MP #### [address] [phone] CBCon 04-12-2022 Erythrocyte distribution width (RBC) [Ratio] 13.8 % Normal 11.5 - 14.5 [facility] Comment on above: Performed By: #### C BC #### [address] [phone] Hematocrit (Bld) [Volume fraction] 41.1 % Normal 36.0 - 46.0 [facility] Comment on above: Performed By: #### C BC #### [address] [phone] Hemoglobin (Bld) [Mass/Vol] 13.0 g/dL Normal 12.0 - 16.0 [facility] Comment on above: Performed By: #### C BC #### [address] [phone] MCHC (RBC) [Mass/Vol] 31.6 g/dL Low 32.0 - 36.0 [facility] Comment on above: Performed By: #### C BC #### [address] [phone] MCV (RBC) [Entitic vol] 97 fL Normal 80 - 100 [facility] Comment on above: Performed By: #### C BC #### [address] [phone] Platelets (Bld) [#/Vol] 287 10*3/uL Normal 150 - 450 [facility] Comment on above: Performed By: #### C BC #### [address] [phone] RBC 4.24 x10E12/L Normal 4.00 - 5.20 [facility] Comment on above: Performed By: #### C BC #### [address] [phone] WBC (Bld) [#/Vol] 5.9 10*3/uL Normal 4.4 - 11.3 [facility] Comment on above: Performed By: #### C BC #### [address] [phone] Laboratory - Chemistry and C hemistry - challengeon 04-12-2022 Anion gap [Moles/Vol] 15 mmol/L 10 - 20 NS-UTRG-Kvvq 2535A Work Phone: Calcium [Mass/Vol] 9.6 mg/dL 8.6 - 10.3 MP-WSP C-Laila 2535A Work Phone: Chloride [Moles/Vol] 106 mmol/L 98 - 107 KV-RJFJ-Uhrj 2535A Work Phone: [phone] CO2 [Moles/Vol] 22 mmol/L 21 - 32 MP-WSPC-A von 2535A Work Phone: Creatinine [Mass/Vol] 0.80 mg/dL See Below AV-POAD-Pjbv 2535A Work Phone: Comment on above: Reference Range: 0.5 0 - 1.05 Glucose [Mass/Vol] 67 mg/dL below low threshold 74 - 99 VI-PMFS-Anos 2535A Work Phone: Potassium [Moles/Vol] 3.6 mmol/L 3.5 - 5.3 PI-FEVP-Ygus 2535A Work Phone: Sodium [Moles/Vol] 139 mmol/L 136 - 145 MP-WSP C-Laila 2535A Work Phone: Urea nitrogen [Mass/Vol] 17 mg/dL 6 - 23 NN-ZMWV-Rfkv 2535A Work Phone: Laboratory - Hematology and Cell countson 04-12-2022 Erythrocyte distribution width (RBC) [Ratio] 13.8 % See Below GU-VDBV-Csyg 2535A Work Phone: Comment on above: Reference Range: 11. 5 - 14.5 Hematocrit (Bld) [Volume fraction] 41.1 % See Below WA-VDOH-Lqou 2535A Work Phone: Comment on above: Reference Range: 36. 0 - 46.0 Hemoglobin (Bld) [Mass/Vol] 13.0 g/dL See Below QW-ZBZM-Etmp 2535A Work Phone: Comment on above: Reference Range: 12. 0 - 16.0 MCHC (RBC) [Mass/Vol] 31.6 g/dL below low threshold See Below GZ-IETR-Mpdw 2535A Work Phone: Comment on above: Reference Range: 32. 0 - 36.0 MCV (RBC) [Entitic vol] 97 fL 80 - 100 PP-JAPH-Jwpo Óscar5A Work Phone: Platelets (Bld) [#/Vol] 287 10*3/uL 150 - 450 YK-NOFE-Msuk Óscar5A Work Phone: RBC (Bld) [#/Vol] 4.24 {x10E12/L} See Below MP -WSPC-[place] 2535A Work Phone: Comment on above: Reference Range: 4.0 0 - 5.20 WBC (Bld) [#/Vol] 5.9 10*3/uL 4.4 - 11.3 MP-WSP C-[place] 2535A Work Phone: No Panel Informationon 04-12 78 {mL/min/1.73m2} >90 MP-WSP C-[place] 2535A Work Phone: Comment on above: CALCULATIONS OF RYAN MATED GFR ARE PERFORMED USING THE 2020 CKD-EPI STUDY REFIT EQUATION WITHOUT THE RACE VARIABLE FOR THE IDMS-TRACEABLE CREATININE METHODS.https://jasn.asnjournals.org/content//ASN.2 132055989 Office Visit (Primary Care T xt/Forms)on 04-12-2022 Follow-up visit Diagnoses/Problems Assessed Encounter for immunization (V03.89) (Z23) Finger swelling (729.81) (M79.89) Orders Encounter for immunization Administered: Fluzone High-Dose Quadrivalent 0.7 ML Intramuscular Suspension Prefilled Syringe Finger swelling Start: methylPREDNISolone 4 MG Oral Tablet Therapy Pack (Medrol); USE DIRECTED Basic Metabolic Panel; Status:Complete; Done: [id number] 12:16PM Complete Blood Count; Status:Complete; Done: 41Bph2950 12:16PM Sedimentation Rate, Erythrocyte; Status:Complete; Done: 72Okd7600 12:16PM Uric Acid, Serum; Status:Complete; Done: 14Owh9860 12:16PM Xray Finger(s) Min 2 View; Status:Hold For - Scheduling; Requested for:56Lgw2718; Laterality : Left Radiologist to Determine Optimal [...] DAILY. Allergies Medication Codeine Derivatives Tylenol NonMedication [place] mold Mold Vitals Vital Signs Recorded: 12Apr2022 11:45AM Temperature: 98.2 F Heart Rate: 72 Respiration: 18 Systolic: 126 Diastolic: 80 Weight: 167 lb (more content not included)... Normal Touchworks SEDIMENTATION RATE, ERYTHROC YTEon 04-12-2022 SEDIMENTATION RATE, ERYTHROCYTE 9 mm/h Normal 0 - 30 [facility] Comment on above: Result Comment: Karis tatum note new reference ranges as of 12/03/2021. Ran on alternate instrument Reference Ranges: Males: 0-15 Females: 0-20 Children under 18: 0-10 Performed By: #### E SRWS #### [address] [phone] Sedimentation Rate, Erythroc yteon 04-12-2022 ESR (Bld) [Velocity] 9 mm/h 0 - 30 CQ-ZIJV-Zwmg 2536I Work Phone: Comment on above: Please note new refe rence ranges as of 12/03/2021.Ran on alternate instrumentReference Ranges: Males: 0-15 Females: 0-20 Children under 18: 0-10 Tobacco Screening.on 022 Fall risk assessment b) One or more falls in the last year TY-JMGC-Bvwl 2535Q Work Phone: Tobacco use status [facility] b) No EP-NYLL-Tteu 2535A Work Phone: URIC ACIDon 04-12-2022 Urate [Mass/Vol] 4.2 mg/dL Normal 2.3 - 6.7 [facility] Comment on above: Result Comment: Rachael puncture immediately after or during the administration of Metamizole may lead to falsely low results. Testing should be performed immediately prior to Metamizole dosing. Performed By: #### U AILYN #### [address] [phone] Uric Acid, Serumon 09-16-202 2 Urate [Mass/Vol] 4.2 mg/dL 2.3 - 6.7 MP-WSPC- Laila 2535A Work Phone: Comment on above: Venipuncture immedia tely after or during the administration of Metamizole may lead to falsely low results. Testing should be performed immediately prior to Metamizole dosing. DIGITAL MAMM SCREENING W/ TO Taylor 11-20-2021 DIGITAL MAMM SCREENING W/ CLAUDIA Patient Name: BRIGITTE HIGH STUDY: DIGITAL MAMM SCREENING W/ CLAUDIA; 11/20/2021 12:37 pm ACCESSION NUMBER(S): [id number] ORDERING CLINICIAN: JING CAMPBELL INDICATION: Right breast [...] any future breast imaging appointments, please call [phone] Electronically signed by: BUCK HIGUERA MD Normal [facility] Mamm - Screening Mammogram w / Tomosynthesison 11-20-2021 MG Breast Screening Normal [facility] Work Phone: No Panel Informationon 11-20 Please click on the link to view the study images Normal [facility] Work Phone: Normal HT-XIAB-Mxob 5A Work Phone: SPINE, LUMBOSACRAL MIN 4 VIE WSon 11-20-2021 SPINE, LUMBOSACRAL MIN 4 VIEWS Patient Name: BRIGITTE HIGH STUDY: Lumbar Spine, 5 views. INDICATION: lbp M54.9: Back pain. COMPARISON: 07/15/2020. ACCESSION NUMBER(S): [id number] ORDERING CLINICIAN: JING CAMPBELL FINDINGS: Moderate levoscoliosis centered in the mid lumbar region. Grade 1 L5-S1 anterolisthesis noted. Moderate spondylosis at L2-3 with disc height loss and endplate sclerosis. Mild spondylosis at L3-4. Uglm-dd-sjzxqrka facet joint degenerative changes throughout the lumbar spine. No spondylolysis on the oblique views. Atherosclerosis of the abdominal aorta noted Vertebral body heights are preserved. Posterior elements are intact. IMPRESSION: 1. Moderate levoscoliosis with lumbar spine degenerative changes as described above that are most pronounced at L2-3 and L3-4. 2. Grade 1 L5-S1 anterolisthesis. Electronically signed by: POORNIMA MONTERO MD Normal [facility] Tobacco Screening.on Last menstrual period start date hysterectomy [facility] Work Phone: Tobacco use status CPHS b) No [facility] Work Phone: CHEST 2 VIEW PA AND LATon CHEST 2 VIEW PA AND LAT Patient Name: BRIGITTE HIGH STUDY: TH CHEST 2 VIEW PA AND LAT; INDICATION: pain. Cough. History of breast cancer and history of smoking. COMPARISON: 07/27/2020 ACCESSION NUMBER(S): [id number] ORDERING CLINICIAN: JING CAMPBELL FINDINGS: The cardiac [...] Electronically signed by: POORNIMA MONTERO MD Normal [facility] Cult, Urineon 04-04-2021 Bacteria identified Cx Nom (U) NG-MZRR-Lvwi 3566S Work Phone: Laboratory - Chemistry and C hemistry - challengeon 04-04-2021 Albumin BCP dye [Mass/Vol] 4.2 g/dL 3.4 - 5.0 HM-DGWX-Mmnp 2535A Work Phone: ALP [Catalytic activity/Vol] 81 U/L 33 - 136 XE-BAAH-Nbaa 2535A Work Phone: ALT With P-5'-P [Catalytic activity/Vol] 24 U/L 7 - 45 EP-BKOD-Afda 2535A Work Phone: Comment on above: Patients treated wit h Sulfasalazine may generate falsely decreased results for ALT. Anion gap [Moles/Vol] 12 mmol/L 10 - 20 OP-RRCT-Npyx Óscar5A Work Phone: AST With P-5'-P [Catalytic activity/Vol] 22 U/L 9 - 39 PO-PRWW-Gmze 2535A Work Phone: Bilirubin [Mass/Vol] 0.4 mg/dL 0.0 - 1.2 ED-IAPB-Nhbw Óscar5A Work Phone: Calcium [Mass/Vol] 9.6 mg/dL 8.6 - 10.3 MP-WSP C-[place] Guy Work Phone: Chloride [Moles/Vol] 107 mmol/L 98 - 107 JJ-QDUR-Vxbt Óscar5A Work Phone: CO2 [Moles/Vol] 26 mmol/L 21 - 32 MP-WSPC-A onel Cantrell Work Phone: Creatinine [Mass/Vol] 0.65 mg/dL See Below XI-HDET-Ebkq 2535A Work Phone: Comment on above: Reference Range: 0.5 0 - 1.05 Glucose [Mass/Vol] 89 mg/dL 74 - 99 MP-WSP C-Laila 2535A Work Phone: Potassium [Moles/Vol] 4.7 mmol/L 3.5 - 5.3 HN-OUXQ-Rwoq 2535A Work Phone: Protein [Mass/Vol] 7.2 g/dL 6.4 - 8.2 MP-WSP C-Laila 2535A Work Phone: Sodium [Moles/Vol] 140 mmol/L 136 - 145 MP-WSP C-[place] Guy Work Phone: Urea nitrogen [Mass/Vol] 12 mg/dL 6 - 23 HP-BABQ-Fqti 2535A Work Phone: Laboratory - Hematology and Cell countson 04-04-2021 Erythrocyte distribution width (RBC) [Ratio] 13.8 % See Below PL-EJGF-Sxsj 2535A Work Phone: Comment on above: Reference Range: 11. 5 - 14.5 Hematocrit (Bld) [Volume fraction] 41.7 % See Below AM-NGMR-Lugw 253Jose Luis Work Phone: Comment on above: Reference Range: 36. 0 - 46.0 Hemoglobin (Bld) [Mass/Vol] 13.2 g/dL See Below JU-JNNW-Jyzs Guy Work Phone: Comment on above: Reference Range: 12. 0 - 16.0 MCHC (RBC) [Mass/Vol] 31.7 g/dL below low threshold See Below RG-TYIG-Uffb Gyu Work Phone: Comment on above: Reference Range: 32. 0 - 36.0 MCV (RBC) [Entitic vol] 98 fL 80 - 100 RH-JEHB-Wgiq Guy Work Phone: Platelets (Bld) [#/Vol] 247 10*3/uL 150 - 450 LW-OKWG-Dcpg Guy Work Phone: RBC (Bld) [#/Vol] 4.26 {x10E12/L} See Below MP -WSPC-[place] 2535A Work Phone: Comment on above: Reference Range: 4.0 0 - 5.20 WBC (Bld) [#/Vol] 4.7 10*3/uL 4.4 - 11.3 MP-WSP C-[place] Work Phone: Lipid Panelon 04-04-2021 Cholesterol [Mass/Vol] 206 mg/dL above high threshold 0 - 199 BJ-GEGS-Ktfr 0253C Work Phone: Comment on above: . AGE [...] dosing. Cholesterol in HDL [Mass/Vol] 79.0 mg/dL AX-WRDN-Pqza 8337F Work Phone: Comment on above: . AGE VERY LOW LOW N ORMAL HIGH 0-19 Y < 35 < 40 40-45 ---- 20- 24 Y ---- < 40 >45 ---- >24 Y ---- < 40 40-60 >60. Cholesterol in LDL [Mass/Vol] 95 mg/dL 0 - 99 SF-XKFI-Lvpi 1713C Work Phone: Comment on above: . NEAR BORD AGE CHERRIE RABLE OPTIMAL HIGH HIGH VERY HIGH 0-19 Y 0 - 109 --- 110-129 >/= 130 ---- 20-24 Y 0 - 119 --- 120-159 >/= 160 ---- >24 Y 0 - 99 100-129 130-159 160-189 >/=190. Cholesterol.total/ Cholesterol in HDL [Mass ratio] 2.6 {ratio} RF-DBYB-Vuaq 4449R Work Phone: Comment on above: REF VALUESDESIRABLE < 3.4HIGH RISK > 5.0 Triglyceride [Mass/Vol] 161 mg/dL above high threshold 0 - 149 QK-TYRF-Rlwv 3140L Work Phone: Comment on above: . AGE [...] Lipid Panel 32 mg/dL 0 - 40 PQ-EAWK-Wpvl [place] Work Phone: No Panel Informationon 04-04 >60 >60 HR-EGIR-Nkvy [place] Work Phone: Comment on above: CALCULATIONS OF RYAN MATED GFR ARE PERFORMED USING THE MDRD STUDY EQUATION FOR THE IDMS-TRACEABLE CREATININE METHODS. CLIN CHEM 2007;53:766-72 Radiologyon 04-04-2021 XR Chest 2 Views Normal MP-WSPC- [place] Work Phone: Urinalysison 04-04-2021 Color (U) YELLOW See Below YZ-OMLI-Uohp [place] Work Phone: Comment on above: Reference Range: STR AW,YELLOW Glucose Ql (U) Negative NEGATIVE MP-WSPC-Av on [place] Work Phone: Ketones Ql (U) Negative NEGATIVE MP-WSPC-Av on [email or web address] Work Phone: Leukocyte esterase Test strip Ql (U) LARGE (3+) Abnormal NEGATIVE XO-JVHJ-Rvmt [place] Work Phone: pH (U) 5.0 [pH] 5.0 - 8.0 PO-LYIS-Eldw 2535A Work Phone: Protein (U) [Mass/Vol] Negative NEGATIVE DM-WIVF-Tnby [place] Work Phone: RBC (U) [#/Vol] Negative NEGATIVE MP-WSPC-A von Óscar1O Work Phone: Specific gravity (U) [Rel density] 1.016 1 See Below NZ-TZPD-Otzh 2535A Work Phone: Comment on above: Reference Range: 1.0 05 - 1.035 Urinalysis Negative NEGATIVE IR-OOWL-Rvyq 2535A Work Phone: Urinalysis <2.0 0.0 - 1.9 GU-OROQ-Ubtk 2535A Work Phone: Urinalysis CLEAR CLEAR OB-COJT-Kdbv 2535A Work Phone: Urinalysis, Microscopicon Urinalysis, Microscopic <1 0-5 NS-KVTF-Ghoq 2535A Work Phone: Urinalysis, Microscopic 1 {/HPF} 0-5 DO-XYUK-Gscc 2535A Work Phone: Vitamin D 25-Hydroxyon 04-04 25-hydroxyvitamin D3 [Mass/Vol] 34 ng/mL FO-ADNW-Bzxk 253Jose Luis Work Phone: Comment on above: .DEFICIENCY: < 20 NG /MLINSUFFICIENCY: 20-29 NG/MLSUFFICIENCY: 30-100 NG/MLTHIS ASSAY ACCURATELY QUANTIFIES THE SUM OFVITAMIN D3, 25-HYDROXY AND VIT D2,25-HYDROXY. BILATERAL KNEE 3 VIEWSon BILATERAL KNEE 3 VIEWS Patient Name: BRIGITTE HIGH STUDY: BILATERAL KNEE; 3 VIEWS; 02/20/2021 12:06 pm INDICATION: right lateral knee pain. COMPARISON: None. ACCESSION NUMBER(S): [id number] ORDERING CLINICIAN: JING CAMPBELL FINDINGS: Bilateral knees, three views of each Mild tricompartmental osteophytosis bilaterally. There is no joint space narrowing. There is no effusion. No fracture seen IMPRESSION: Mild degenerative changes with osteophyte formation Electronically signed by: RIKY MCDONOUGH MD [facility] C Reactive Protein, Serumon 02-20-2021 CRP [Mass/Vol] 0.59 mg/dL MP-WSPC-Av on Work Phone: Comment on above: REF VALUE< 1.00 Citrulline Antibodyon 2020 Cyclic citrullinated peptide IgG Qn <1 WN-GGLV-Tqno Work Phone: Comment on above: THE TEST [...] dye [Mass/Vol] 4.3 g/dL 3.4 - 5.0 DX-BLPF-Gmuu 9R Work Phone: ALP [Catalytic activity/Vol] 70 U/L 33 - 136 ZL-CHXE-Jvii [email or web address] Work Phone: ALT With P-5'-P [Catalytic activity/Vol] 23 U/L 7 - 45 PA-SYMN-Iacd 3N Work Phone: Comment on above: Patients treated wit h Sulfasalazine may generate falsely decreased results for ALT. Anion gap [Moles/Vol] 13 mmol/L 10 - 20 LO-GXPO-Ahtt 1Q Work Phone: AST With P-5'-P [Catalytic activity/Vol] 27 U/L 9 - 39 SM-ZBPW-Etyg 2535A Work Phone: Bilirubin [Mass/Vol] 0.5 mg/dL 0.0 - 1.2 YH-KZOL-Wvuy 2535A Work Phone: Calcium [Mass/Vol] 9.6 mg/dL 8.6 - 10.3 MP-WSP C-[place] 9V Work Phone: Chloride [Moles/Vol] 107 mmol/L 98 - 107 FZ-OPLY-Ikcz 2535A Work Phone: CO2 [Moles/Vol] 23 mmol/L 21 - 32 LYN-WSPC-Lauryn quigley Work Phone: Creatinine [Mass/Vol] 0.71 mg/dL See Below GR-CQIR-Oqri 2535A Work Phone: Comment on above: Reference Range: 0.5 0 - 1.05 Glucose [Mass/Vol] 82 mg/dL 74 - 99 MP-WSP CThierno Tovar Work Phone: Potassium [Moles/Vol] 4.2 mmol/L 3.5 - 5.3 KY-VUWL-Ktjd 2535A Work Phone: Protein [Mass/Vol] 7.2 g/dL 6.4 - 8.2 LYN-WSP C-Laila Tovar Work Phone: Sodium [Moles/Vol] 139 mmol/L 136 - 145 MP-WSP C-Laila Tovar Work Phone: Urea nitrogen [Mass/Vol] 18 mg/dL 6 - 23 SF-JRHB-Cbxn 2535A Work Phone: Laboratory - Hematology and Cell countson 02-20-2021 Erythrocyte distribution width (RBC) [Ratio] 14.3 % See Below NM-QALC-Xirn 2535A Work Phone: Comment on above: Reference Range: 11. 5 - 14.5 Hematocrit (Bld) [Volume fraction] 41.3 % See Below FX-AMWW-Fveo 2535A Work Phone: Comment on above: Reference Range: 36. 0 - 46.0 Hemoglobin (Bld) [Mass/Vol] 13.0 g/dL See Below OI-KKNS-Abzm Guy Work Phone: Comment on above: Reference Range: 12. 0 - 16.0 MCHC (RBC) [Mass/Vol] 31.5 g/dL below low threshold See Below QI-TJEO-Pexi 2535A Work Phone: Comment on above: Reference Range: 32. 0 - 36.0 MCV (RBC) [Entitic vol] 100 fL 80 - 100 PR-FVTA-Pxnr 2535A Work Phone: Platelets (Bld) [#/Vol] 261 10*3/uL 150 - 450 ZM-HXQJ-Krwu 2535A Work Phone: RBC (Bld) [#/Vol] 4.13 {x10E12/L} See Below MP -WSPC-Laila 2535A Work Phone: Comment on above: Reference Range: 4.0 0 - 5.20 WBC (Bld) [#/Vol] 6.0 10*3/uL 4.4 - 11.3 MP-WSP C-[place] 2535A Work Phone: Laboratory - Serology - non- microon 02-20-2021 Nuclear Ab Hep2 substrate Ql (S) Negative NEGATIVE JA-MLTJ-Pzxl 2535A Work Phone: Comment on above: The Antinuclear Anti body (JACOB) test was performed using indirect immunofluorescence assay with HEp-2 cells slide. No Panel Informationon 02-20 >60 >60 CS-CJRY-Gvzi 2535A Work Phone: Comment on above: CALCULATIONS OF RYAN MATED GFR ARE PERFORMED USING THE MDRD STUDY EQUATION FOR THE IDMS-TRACEABLE CREATININE METHODS. CLIN CHEM 2007;53:766-72 Radiologyon 02-20-2021 XR Knee - bilateral 3 Views Normal SI-VOSD-Fhxk 2535A Work Phone: XR Knee - bilateral 3 Views Please click on the link to view the study images Normal WR-IHDH-Opbn 2535A Work Phone: Rheumatoid Factor, Serum or Plasmaon 02-20-2021 Rheumatoid factor Nephelometry Qn (S) <10 0 - 15 CU-WLGN-Nfjc 2535A Work Phone: Sedimentation Rate, Erythroc yteon 02-20-2021 ESR (Bld) [Velocity] 8 mm/h 0 - 20 HF-BIIN-FpldCounterStorm1U Work Phone: TSH - Thyroid Stimulating Ho rmone, Serumon 02-20-2021 TSH Qn 2.66 m[IU]/L See Below CU-XPEN-Lxor 8575M Work Phone: Comment on above: Reference Range: 0.4 4 - 3.98 TSH testing is performed using different testing methodology at [facility] than at other [facility]. Direct result comparisons should only be made within the same method. Uric Acid, Serumon 1 Urate [Mass/Vol] 4.5 mg/dL 2.3 - 6.7 MP-Plazes5W Work Phone: Comment on above: Venipuncture immedia tely after or during the administration of Metamizole may lead to falsely low results. Testing should be performed immediately prior to Metamizole dosing. Vitamin B12, Serumon 021 Cobalamin (Vitamin B12) [Mass/Vol] 306 pg/mL 211 - 911 GM-BMST-YpelCounterStorm5H Work Phone: CA27.29 (CA15-3)on 1 Cancer Ag 27-29 Qn 44.7 [arb'U]/mL above high threshold 0.0 - 38.6 LJ-WXEA-[employer]zed[employer]9Z Work Phone: Comment on above: CA 27.29 testing is performed by chemiluminescent immunoassay using the [employer]. Values obtained with different analytic methods cannot [...] WBC (Bld) 0.5 % 0.0 - 2.0 KV-TVJZ-Kqko 2535A Work Phone: Erythrocyte distribution width (RBC) [Ratio] 14.1 % See Below LY-EBYF-Crns 2535A Work Phone: Comment on above: Reference Range: 11. 5 - 14.5 Hematocrit (Bld) [Volume fraction] 36.1 % See Below PJ-KWFY-Lwdc 2535A Work Phone: Comment on above: Reference Range: 36. 0 - 46.0 Hemoglobin (Bld) [Mass/Vol] 11.9 g/dL below low threshold See Below NY-DXVB-Jade 2535A Work Phone: Comment on above: Reference Range: 12. 0 - 16.0 Lymphocytes/100 WBC (Bld) 39.4 % See Below AD-EBKN-Ntab 253Jose Luis Work Phone: Comment on above: Reference Range: 13. 0 - 44.0 MCHC (RBC) [Mass/Vol] 33.0 g/dL See Below PF-WGSA-Ykpp 253Jose Luis Work Phone: Comment on above: Reference Range: 32. 0 - 36.0 MCV (RBC) [Entitic vol] 95 fL 80 - 100 SV-BLLE-Bsjy Guy Work Phone: Monocytes/100 WBC (Bld) 7.5 % 2.0 - 10.0 VY-KKIA-Cukp 2535A Work Phone: Neutrophils/100 WBC (Bld) 50.1 % See Below SE-KGKQ-Bfyd 2535A Work Phone: Comment on above: Reference Range: 40. 0 - 80.0 Platelets (Bld) [#/Vol] 225 10*3/uL 150 - 450 PY-QOEA-Xeup 2535A Work Phone: RBC (Bld) [#/Vol] 3.80 {x10E12/L} below low threshold See Below WP-DLZT-Gbcv 2535A Work Phone: Comment on above: Reference Range: 4.0 0 - 5.20 WBC (Bld) [#/Vol] 4.0 10*3/uL below low threshold 4.4 - 11.3 WO-DIOI-Chwz Guy Work Phone: Complete Blood Count + Differential 0.02 {x10E9/L} See Below AG-DCNJ-Jyhk Guy Work Phone: Comment on above: Reference Range: 0.0 0 - 0.10 Complete Blood Count + Differential 0.10 {x10E9/L} See Below VH-IVPR-Tnpm Guy Work Phone: Comment on above: Reference Range: 0.0 0 - 0.40 Complete Blood Count + Differential 0.30 {x10E9/L} See Below JZ-NEOV-Wefd Guy Work Phone: Comment on above: Reference Range: 0.0 5 - 0.80 Complete Blood Count + Differential 1.57 {x10E9/L} See Below MR-NLFH-Uifr Guy Work Phone: Comment on above: Reference Range: 0.8 0 - 3.00 Complete Blood Count + Differential 1.99 {x10E9/L} See Below CH-GTNZ-Aqwf Guy Work Phone: Comment on above: Reference Range: 1.6 0 - 5.50 Complete Blood Count + Differential 2.5 % 0.0 - 6.0 KI-XGUN-Rzrn Guy Work Phone: Complete Blood Count + Differential 0.0 % 0.0 - 0.9 BB-OYZJ-Apkm Guy Work Phone: Comment on above: Immature Granulocyte Count (IG) includes promyelocytes, myelocytes and metamyelocytes but does not include bands. Percent differential counts (%) should be interpreted in the context of the absolute cell counts (cells/L). Laboratory - Chemistry and C hemistry - challengeon 12-26-2020 Albumin BCP dye [Mass/Vol] 4.4 g/dL 3.4 - 5.0 ES-HNNA-Faoq Guy Work Phone: ALP [Catalytic activity/Vol] 66 U/L 33 - 136 JY-BYRA-Tgri 2535A Work Phone: ALT With P-5'-P [Catalytic activity/Vol] 18 U/L 7 - 45 SA-HLPT-Zyna 2535A Work Phone: Comment on above: Patients treated wit h Sulfasalazine may generate falsely decreased results for ALT. Anion gap [Moles/Vol] 10 mmol/L 10 - 20 ON-OGZR-Sezi 2535A Work Phone: AST With P-5'-P [Catalytic activity/Vol] 19 U/L 9 - 39 IY-NVZO-Xiyi 2535A Work Phone: Bilirubin [Mass/Vol] 0.5 mg/dL 0.0 - 1.2 VW-GBEW-Ctlt 2535A Work Phone: Calcium [Mass/Vol] 9.6 mg/dL 8.6 - 10.3 MP-WSP C-[place] Work Phone: Chloride [Moles/Vol] 108 mmol/L above high threshold 98 - 107 SJ-YBWY-Qxno 2535A Work Phone: CO2 [Moles/Vol] 25 mmol/L 21 - 32 MP-WSPC-A von 9Q Work Phone: Creatinine [Mass/Vol] 0.70 mg/dL See Below XM-VGAV-Fqdt 2535A Work Phone: Comment on above: Reference Range: 0.5 0 - 1.05 Glucose [Mass/Vol] 108 mg/dL above high threshold 74 - 99 HE-IRHS-Ruxd 2535A Work Phone: Potassium [Moles/Vol] 3.7 mmol/L 3.5 - 5.3 PU-BZZY-Tsby 2535A Work Phone: Protein [Mass/Vol] 7.1 g/dL 6.4 - 8.2 MP-WSP C-Laila 3Y Work Phone: Sodium [Moles/Vol] 139 mmol/L 136 - 145 MP-WSP C-Laila 2535A Work Phone: Urea nitrogen [Mass/Vol] 16 mg/dL 6 - 23 CU-HNPI-Dman 2535A Work Phone: No Panel Informationon 12-26 >60 >60 DB-MIOA-Tmhq 2539A Work Phone: Comment on above: CALCULATIONS OF RYAN MATED GFR ARE PERFORMED USING THE MDRD STUDY EQUATION FOR THE IDMS-TRACEABLE CREATININE METHODS. CLIN CHEM 2007;53:766-72 Mamm - Screening Mammogram w / Tomosynthesison 07-15-2020 MG Breast screening Interpreted by: BAILEE HUDSON09/17/19 08:23MRN: [id number] Name: BRIGITTE HIGH STUDY:DIGITAL SCREENING RIGHT-SIDED MAMMOGRAM [...] signed by: BAILEE HUTSON 07/17/20 08:23 Normal YM-ZMCF-Agpl 7070U Work Phone: Comment on above: ORDER REVISED TO A D IGITAL MAMM SCREENING W/ CLAUDIA BY RADIOLOGIST; Original Order Number: [id number] Otheron 07-15-2020 XR Cervical spine 3 views Interpreted by: YASMINE GIRON07/17/20 10:01MRN: [id number] Name: BRIGITTE HIGH STUDY:SPINE, CERVICAL, 2 OR [...] signed by: YASMINE GIRON 07/17/20 10:01 Normal AmVac 7231Z Work Phone: XR Lumbar spine AP and lateral Interpreted by: YASMINE GIRON07/17/20 10:02MRN: [id number] Name: REAL HIGHMARIE STUDY:SPINE, LUMBOSACRAL; 2 OR [...] signed by: YASMINE GIRON 07/17/20 10:02 Normal AmVac 2535A Work Phone: KNEES BOTH STANDINGon 2017 KNEES BOTH STANDING DATE OF EXAM: May 07 2018 1:48PM CLINICAL HISTORY/ Patient Name: BRIGITTE HIGH STUDY: KNEES BOTH STANDING; 05/07/2018 1:48 pm INDICATION: cervical radiculopathy, bilat knee pain. COMPARISON: None. ACCESSION NUMBER(S): [id number] ORDERING CLINICIAN: JING CAMPBELL FINDINGS: No fracture or dislocation of either knee. Moderate joint space narrowing. Tiny patellar osteophytes. CONCLUSION: IMPRESSION: Moderate degenerative changes of the knees. Normal [facility] SPINE C MIN 4 VIEWSon 2017 SPINE C MIN 4 VIEWS DATE OF EXAM: May 07 2018 1:48PM CLINICAL HISTORY/ Patient Name: BRIGITTE HIGH STUDY: SPINE C MIN 4 VIEWS; 05/07/2018 1:48 pm INDICATION: cervical radiculopathy, bilat knee pain. COMPARISON: None. ACCESSION NUMBER(S): [id number] ORDERING CLINICIAN: JING CAMPBELL FINDINGS: Anterior metallic [...] Degenerative changes of the cervical spine. Normal [facility] LUMBAR SP WO CONTRASTon 09-26 LUMBAR SP WO CONTRAST STUDY:LUMBAR SP WO CONTRAST; 10/18/2017 8:10 amINDICATION:LUMBAR RADICULOPATHY (M54.16).COMPARISON:04/29ACCESSION NUMBER(S):[id number] RDERING CLINICIAN:Jing CampbellTECHNIQUE:Sagittal and axial T1 and [...] to theright at L3-4 and L4-5.Interpreted within [facility], [place] Normal [facility] [place] Vital Signs Date Time Vital Sign Value Performing Clinician Facility 12-21-2023 09:57-0400 Body height 165.1 cm MD Star Recinos Work Phone: [facility] 12-21-2023 09:57-0400 Body mass index (BMI) [Ratio] 26.8 kg/m2 MD Star Recinos Work Phone: [facility] 12-21-2023 09:57-0400 Body temperature 97.8 [degF] MD Star Recinos Work Phone: [facility] 12-21-2023 09:57-0400 Body weight 73.02 kg MD Star Recinos Work Phone: [facility] 12-21-2023 09:57-0400 Diastolic blood pressure 70 mm[Hg] MD Star Recinos Work Phone: [facility] 12-21-2023 09:57-0400 Heart rate 77 /min MD Star Recinos Work Phone: [facility] 12-21-2023 09:57-0400 Respiratory rate 16 /min MD Star Recinos Work Phone: [facility] 12-21-2023 09:57-0400 SaO2% (BldA) [Mass fraction] 98 % MD Star Recinos Work Phone: [facility] 12-21-2023 09:57-0400 Systolic blood pressure 112 mm[Hg] MD Star Recinos Work Phone: [facility] 08-25-2023 11:36-0500 Blood Pressure Location Star RECINOS [facility] 08-25-2023 11:36-0500 Diastolic blood pressure 84 mm[Hg] Star RECINOS [facility] 08-25-2023 11:36-0500 Heart rate 79 /min Star RECINOS [facility] 08-25-2023 11:36-0500 Respiratory rate 16 /min Star RECINOS [facility] 08-25-2023 11:36-0500 Systolic blood pressure 134 mm[Hg] Star RECINOS [facility] 12-10-2022 16:07-0400 Body height 165.1 cm Kristyn Dougherty Work Phone: [facility] Work Phone: 12-10-2022 16:07-0400 Body mass index (BMI) [Ratio] 26.96 kg/m2 Kristyn Dougherty Work Phone: [facility] Work Phone: 12-10-2022 16:07-0400 Body surface area Derived from formula 1.81 m2 Kristyn Dougherty Work Phone: [facility] Work Phone: 12-10-2022 16:07-0400 Body weight 73.48 kg Kristyn Dougherty [facility] Work Phone: 04-29-2022 11:05-0400 Body height 163.83 cm Jing Campbell Work Phone: JU-OZVO-Fzbi 2535A Work Phone: 04-29-2022 11:05-0400 Body mass index (BMI) [Ratio] 28.73 kg/m2 Jing Campbell Work Phone: QQ-TYZO-Znnb 2535A Work Phone: 04-29-2022 11:05-0400 Body surface area Derived from formula 1.84 m2 Jing Campbell Work Phone: SL-TONB-Henv 2535A Work Phone: 04-29-2022 11:05-0400 Body temperature 97.5 [degF] Jing Campbell Work Phone: IQ-NAXQ-Dbzc 2535A Work Phone: 04-29-2022 11:05-0400 Body weight 77.11 kg Jing Campbell Work Phone: SI-UWTF-Iimv 2535A Work Phone: 04-29-2022 11:05-0400 Diastolic blood pressure 82 mm[Hg] Jing Campbell Work Phone: IV-CSJB-Vcfi 2535A Work Phone: 04-29-2022 11:05-0400 Heart rate 72 /min Jing Campbell Work Phone: NH-OEJP-Iqqr 2535A Work Phone: 04-29-2022 11:05-0400 Respiratory rate 16 /min Jing Campbell Work Phone: mp-WSPC-Avon 2535A Work Phone: 04-29-2022 11:05-0400 SaO2% (BldA) [Mass fraction] 98 % Jing Campbell Work Phone: ZB-DGYW-Ozom 2535A Work Phone: 04-29-2022 11:05-0400 Systolic blood pressure 130 mm[Hg] Jing Campbell Work Phone: CH-NAST-Pfam 2535A Work Phone: 04-12-2022 11:45-0400 Body mass index (BMI) [Ratio] 27.79 kg/m2 Jing Campbell Work Phone: QM-YMXT-Jucv 2535A Work Phone: 04-12-2022 11:45-0400 Body surface area Derived from formula 1.83 m2 Jing Campbell Work Phone: IS-CSCN-Azwe 2535A Work Phone: 04-12-2022 11:45-0400 Body temperature 98.2 [degF] Jing Campbell Work Phone: DF-SUBP-Tlai 2535A Work Phone: 04-12-2022 11:45-0400 Body weight 75.75 kg Jing Campbell Work Phone: HP-HTMB-Ywaw 2535A Work Phone: 04-12-2022 11:45-0400 Diastolic blood pressure 80 mm[Hg] Jing Campbell Work Phone: JF-XWPG-Afdy 2535A Work Phone: 04-12-2022 11:45-0400 Heart rate 72 /min Jing Campbell Work Phone: NQ-QSWZ-Eeoq 2535A Work Phone: 04-12-2022 11:45-0400 Respiratory rate 18 /min Jing Campbell Work Phone: QY-EMRT-Arin 2535A Work Phone: 04-12-2022 11:45-0400 SaO2% (BldA) [Mass fraction] 98 % Jing Campbell Work Phone: SY-LSIN-Bpsk 2535A Work Phone: 04-12-2022 11:45-0400 Systolic blood pressure 126 mm[Hg] Jing Campbell Work Phone: ET-DHDF-Cycj 2538M Work Phone: 01-07-2022 09:18-0400 Body height 165.1 cm Jing Campbell Work Phone: [facility] Work Phone: 01-07-2022 09:18-0400 Body mass index (BMI) [Ratio] 28.11 kg/m2 Jing Campbell Work Phone: [facility] Work Phone: 01-07-2022 09:18-0400 Body surface area Derived from formula 1.84 m2 Jing Campbell Work Phone: [facility] Work Phone: 01-07-2022 09:18-0400 Body weight 76.61 kg Jing Campbell Work Phone: [facility] Work Phone: 01-07-2022 09:18-0400 Diastolic blood pressure 70 mm[Hg] Jing Campbell Work Phone: [facility] Work Phone: 01-07-2022 09:18-0400 Systolic blood pressure 118 mm[Hg] Jing Campbell Work Phone: [facility] Work Phone: 11-20-2021 13:51-0400 Body height 165.1 cm Jing Campbell Work Phone: [facility] Work Phone: 11-20-2021 13:51-0400 Body mass index (BMI) [Ratio] 28.62 kg/m2 Jing Campbell Work Phone: [facility] Work Phone: 11-20-2021 13:51-0400 Body surface area Derived from formula 1.86 m2 Jing Campbell Work Phone: [facility] Work Phone: 11-20-2021 13:51-0400 Body weight 78.02 kg Jing Campbell Work Phone: [facility] Work Phone: 11-20-2021 13:51-0400 Diastolic blood pressure 80 mm[Hg] Jing Campbell Work Phone: [facility] Work Phone: 11-20-2021 13:51-0400 Systolic blood pressure 110 mm[Hg] [facility]ing [facility] Work Phone: 10-29-2021 11:29-0400 Body mass index (BMI) [Ratio] 28.62 kg/m2 Jing Campbell Work Phone: JS-EHST-Ngbx 6332E Work Phone: 10-29-2021 11:29-0400 Body surface area Derived from formula 1.86 m2 Jing Campbell Work Phone: BT-QQLT-Aqqm 2535A Work Phone: 10-29-2021 11:29-0400 Body temperature 98.2 [degF] Jing Campbell Work Phone: YB-VAWZ-Ybgx 2535A Work Phone: 10-29-2021 11:29-0400 Body weight 78.02 kg Jing Campbell Work Phone: SG-IIFZ-Mlds 2535A Work Phone: 10-29-2021 11:29-0400 Diastolic blood pressure 72 mm[Hg] Jing Campbell Work Phone: LT-NTQG-Eqhl 2535A Work Phone: 10-29-2021 11:29-0400 Heart rate 76 /min Jing Campbell Work Phone: EU-DOFE-Rzao 2535A Work Phone: 10-29-2021 11:29-0400 Respiratory rate 18 /min Jing Campbell Work Phone: JH-XYPR-Seuw 2535A Work Phone: 10-29-2021 11:29-0400 SaO2% (BldA) [Mass fraction] 98 % Jing Campbell Work Phone: WN-HLTF-Pxqw 2535A Work Phone: 10-29-2021 11:29-0400 Systolic blood pressure 122 mm[Hg] Jing Campbell Work Phone: TW-ALJQ-Ckzs 2535A Work Phone: 05-08-2021 11:20-0400 Diastolic blood pressure 82 mm[Hg] Jing Campbell Work Phone: JL-LVBB-Juyz 2535A Work Phone: 05-08-2021 11:20-0400 Systolic blood pressure 130 mm[Hg] Jing Campbell Work Phone: ZA-FPIZ-Tujf 2535A Work Phone: 05-08-2021 10:35-0400 Body height 165.1 cm Jing Campbell Work Phone: VF-BSNJ-Seni 2535A Work Phone: 05-08-2021 10:35-0400 Body mass index (BMI) [Ratio] 28.62 kg/m2 Jing Campbell Work Phone: CK-IIRJ-Urlf 2535A Work Phone: 05-08-2021 10:35-0400 Body surface area Derived from formula 1.86 m2 Jing Campbell Work Phone: PY-KEJB-Itxo 2535A Work Phone: 05-08-2021 10:35-0400 Body temperature 97.5 [degF] Jing Campbell Work Phone: UM-ADTR-Hemp 2535A Work Phone: 05-08-2021 10:35-0400 Body weight 78.02 kg Jing Campbell Work Phone: DD-ZFHR-Aczs 2535A Work Phone: 05-08-2021 10:35-0400 Diastolic blood pressure 84 mm[Hg] Jing Campbell Work Phone: UO-CEXN-Sntc 2535A Work Phone: 05-08-2021 10:35-0400 Heart rate 80 /min Jing Campbell Work Phone: SU-WJXM-Qgmk 2535A Work Phone: 05-08-2021 10:35-0400 Respiratory rate 16 /min Jing Campbell Work Phone: CQ-NYBA-Czfx 2535A Work Phone: 05-08-2021 10:35-0400 SaO2% (BldA) [Mass fraction] 98 % Jing Campbell Work Phone: WT-ERKD-Wgrk 6579W Work Phone: 05-08-2021 10:35-0400 Systolic blood pressure 144 mm[Hg] Jing Campbell Work Phone: DC-TIXU-Iuwk 0799R Work Phone: 04-20-2021 09:27-0400 Body height 165.1 cm Jing Campbell Work Phone: [facility] Work Phone: 04-20-2021 09:27-0400 Body mass index (BMI) [Ratio] 28.29 kg/m2 Jing Campbell Work Phone: [facility] Work Phone: 04-20-2021 09:27-0400 Body surface area Derived from formula 1.85 m2 Jing Campbell Work Phone: [facility] Work Phone: 04-20-2021 09:27-0400 Body temperature 97.3 [degF] Jing Campbell Work Phone: [facility] Work Phone: 04-20-2021 09:27-0400 Body weight 77.11 kg Jing Campbell Work Phone: [facility] Work Phone: 04-20-2021 09:27-0400 Diastolic blood pressure 93 mm[Hg] Jing Campbell Work Phone: [facility] Work Phone: 04-20-2021 09:27-0400 Heart rate 69 /min Jing Campbell Work Phone: [facility] Work Phone: 04-20-2021 09:27-0400 Systolic blood pressure 139 mm[Hg] Jing Campbell Work Phone: [facility] Work Phone: 04-04-2021 09:17-0400 Body height 165.1 cm Jing Campbell Work Phone: NV-ETUT-Xelj 2535A Work Phone: 04-04-2021 09:17-0400 Body mass index (BMI) [Ratio] 28.46 kg/m2 Jing Campbell Work Phone: VV-UFYY-Tbdr 2535A Work Phone: 04-04-2021 09:17-0400 Body surface area Derived from formula 1.85 m2 Jing Campbell Work Phone: AX-LFNW-Vrxd 2535A Work Phone: 04-04-2021 09:17-0400 Body temperature 97.7 [degF] Jing Campbell Work Phone: KK-FFWL-Msbo 2535A Work Phone: 04-04-2021 09:17-0400 Body weight 77.57 kg Jing Campbell Work Phone: MN-BMXJ-Ncao 2535A Work Phone: 04-04-2021 09:17-0400 Diastolic blood pressure 84 mm[Hg] Jing Campbell Work Phone: ZA-DQOX-Lhay 2535A Work Phone: 04-04-2021 09:17-0400 Heart rate 68 /min Jing Campbell Work Phone: HM-KFQU-Duuj 2535A Work Phone: 04-04-2021 09:17-0400 Respiratory rate 18 /min Jing Campbell Work Phone: WZ-EHMF-Dysc 2535A Work Phone: 04-04-2021 09:17-0400 SaO2% (BldA) [Mass fraction] 98 % Jing Campbell Work Phone: CX-LKKL-Wpyy 2535A Work Phone: 04-04-2021 09:17-0400 Systolic blood pressure 128 mm[Hg] Jing Saud Garciaey Work Phone: VR-SDNZ-Zrzf 2535A Work Phone: 03-20-2021 15:27-0400 Body height 166.37 cm Jing Saud Garciaey Work Phone: AS-DPVM-Cbfv 2535A Work Phone: 03-20-2021 15:27-0400 Body mass index (BMI) [Ratio] 27.04 kg/m2 Jing Garciaey Work Phone: KD-NBOQ-Qmcr 2535A Work Phone: 03-20-2021 15:27-0400 Body surface area Derived from formula 1.83 m2 Jing Garciaey Work Phone: FE-MGMQ-Cqpt 2535A Work Phone: 03-20-2021 15:27-0400 Body weight 74.84 kg Jingbryce Garciaey Work Phone: QV-SZME-Xffu 2535A Work Phone: 02-20-2021 10:54-0400 Body mass index (BMI) [Ratio] 27.12 kg/m2 Jing Campbell Work Phone: JU-ZLFG-Jpui 2535A Work Phone: 02-20-2021 10:54-0400 Body surface area Derived from formula 1.81 m2 Jing Campbell Work Phone: XD-HKIT-Iaze 2535A Work Phone: 02-20-2021 10:54-0400 Body temperature 97.2 [degF] Jing Campbell Work Phone: ZE-BQSO-Xugo 2535A Work Phone: 02-20-2021 10:54-0400 Body weight 73.94 kg Jing Campbell Work Phone: RL-TPFW-Gqhf 2535A Work Phone: 02-20-2021 10:54-0400 Diastolic blood pressure 78 mm[Hg] Jing Campbell Work Phone: AD-CCJN-Nfja 2535A Work Phone: 02-20-2021 10:54-0400 Heart rate 72 /min Jing Campbell Work Phone: NF-VVGL-Jfxi 2535A Work Phone: 02-20-2021 10:54-0400 Respiratory rate 16 /min Jing Campbell Work Phone: KN-YCMK-Nwdh 2535A Work Phone: 02-20-2021 10:54-0400 SaO2% (BldA) [Mass fraction] 98 % Jing Campbell Work Phone: VS-LIOD-Cxwt 2535A Work Phone: 02-20-2021 10:54-0400 Systolic blood pressure 128 mm[Hg] Jing Campbell Work Phone: CM-AJAA-Ymex 2535A Work Phone: 12-27-2020 09:29-0400 Body mass index (BMI) [Ratio] 26.29 kg/m2 Jing Campbell Work Phone: CZ-CCRF-Bwsj 2535A Work Phone: 12-27-2020 09:29-0400 Body surface area Derived from formula 1.79 m2 Jing Campbell Work Phone: AU-AMUE-Ipsc 2535A Work Phone: 12-27-2020 09:29-0400 Body temperature 97.8 [degF] Jing Campbell Work Phone: RV-YIZX-Fldu 2535A Work Phone: 12-27-2020 09:29-0400 Body weight 71.67 kg Jing Campbell Work Phone: KW-BEDW-Cfqa 2532B Work Phone: 12-27-2020 09:29-0400 Diastolic blood pressure 82 mm[Hg] Jing Campbell Work Phone: VT-CRYO-Jahm 2533L Work Phone: 12-27-2020 09:29-0400 Heart rate 72 /min Jing Campbell Work Phone: IL-BDBT-Ifdo 2532U Work Phone: 12-27-2020 09:29-0400 Respiratory rate 16 /min Jing Campbell Work Phone: HX-DXAM-Gags 2536G Work Phone: 12-27-2020 09:29-0400 SaO2% (BldA) [Mass fraction] 97 % Jing Campbell Work Phone: ZU-BDRJ-Rlvi 2535A Work Phone: 12-27-2020 09:29-0400 Systolic blood pressure 132 mm[Hg] Jing Campbell Work Phone: EP-RCIS-Mzsx 2535A Work Phone: Encounters Encounter Date Encounter Type Care Provider Facility Start: 05-03-2024 ambulatory Star Macias ty:[id number] Start: 04-21-2024 End: 04-21-2024 ambulatory Kristyn Jean[facility] Start: 03-31-2024 End: 03-31-2024 ambulatory Kristyn Jean[facility] Start: 03-17-2024 End: 03-17-2024 ambulatory Kristyn Ladonna Facility:[facility] Start: 03-10-2024 End: 03-10-2024 ambulatory Kristyn Ladonna Facility:[facility] Start: 03-04-2024 ambulatory Jadyn Ghazoul Facility :[facility] Start: 03-04-2024 End: 03-04-2024 ambulatory Jadyn Ghazoul Facility:[facility] Start: 02-18-2024 End: 02-18-2024 ambulatory Jadyn Ghazoul Facility:[facility] Start: 02-04-2024 End: 02-04-2024 ambulatory Jadyn Ghazoul Facility:[facility] Start: 01-20-2024 End: 01-20-2024 ambulatory Jadyn Ghazoul Facility:[facility] Start: 01-16-2024 End: 01-16-2024 ambulatory [facility] Start: 12-21-2023 End: 12-21-2023 ambulatory MD Star Recinos Work Phone: [facility] Work Phone: Start: 12-21-2023 End: 12-21-2023 Patient encounter procedure MD Star Recinos Work Phone: [facility] Work Phone: Start: 11-18-2023 End: 11-18-2023 ambulatory TANIA ARREDONDO Not Available Start: 11-04-2023 End: 11-04-2023 ambulatory Star RECINOS Facility[facility] Start: 11-04-2023 End: 11-04-2023 Lab Drop off Star RECINOS [facility] Start: 11-04-2023 End: 11-04-2023 ambulatory Star RECINOS Facility:[facility] Start: 11-04-2023 End: 11-04-2023 Patient encounter procedure Star RECINOS [facility] Start: 10-09-2023 ambulatory Star R RECINOS Facili ty:CD:[id number] Start: 10-06-2023 End: 10-06-2023 ambulatory Starvamsi RECINOS Facility:[facility] Start: 10-06-2023 End: 10-06-2023 Patient encounter procedure Star R JORJE [facility] Start: 09-25-2023 End: 09-25-2023 ambulatory Star Jorje Facility:[facility] Start: 09-25-2023 End: 09-25-2023 Departed Referred MD Star Recinos Work Phone: [facility] Start: 09-25-2023 End: 09-25-2023 ambulatory Star Saud JORJE Facility:[id number] Start: 09-08-2023 End: 09-08-2023 ambulatory Star R RECINOS Facility:[id number] Start: 08-25-2023 End: 08-25-2023 ambulatory Star RECINOS Facility:[facility] [place] Start: 08-25-2023 End: 08-25-2023 Patient encounter procedure Starvamsi RECINOS [facility] Start: 05-27-2023 ambulatory Star RECINOS Facility :[facility] [place] Start: 03-28-2023 End: 03-28-2023 ambulatory Lawrence MEDINA Facility:[facility] Start: 03-28-2023 End: 03-28-2023 Patient encounter procedure Lawrence Medina MD Work Phone: Plastic Surgery Comment on above: Breast pain (Primary Dx); Acquired breast deformity; Capsular contracture of breast implant, initial encounter Start: 03-25-2023 End: 03-25-2023 ambulatory Lawrence MEDINA Facility:[facility] Start: 02-11-2023 Patient encounter procedure Kristyn Dougherty Work Phone: [facility] Work Phone: Start: 02-11-2023 ambulatory MD SANDRA TAYLOR Facility: [id number] Start: 01-17-2023 ambulatory MD CARLITO HORVATH Facility:[facility] Start: 01-17-2023 ambulatory MD CARLITO HORVATH Facility:[id number] Start: 01-07-2023 ambulatory MD SANDRA TAYLOR Facility: [id number] Start: 12-18-2022 ambulatory KRISTYN DOUGHERTY Facility: H1 Start: 12-17-2022 ambulatory MD SANDRA TAYLOR Facility: [id number] Start: 12-10-2022 Patient encounter procedure Kristyn Dougherty Work Phone: [facility] Work Phone: Start: 12-10-2022 ambulatory DO JING CAMPBELL Facility:[id number] Start: 11-28-2022 End: 11-29-[address] ILDEFONSO HO Facility:H1 Start: 10-18-2022 End: 10-19-2022 ambulatory KRISTYN DOUGHERTY Facility:[facility] Start: 08-17-2022 End: 08-18-[address] ILDEFONSO HO Facility:[facility]1 Start: 07-05-2022 End: 07-05-2022 ambulatory KRISTYN DOUGHERTY Facility:[facility] Start: 06-28-2022 End: 06-28-2022 ambulatory KRISTYN DOUGHERTY Facility:[facility] Start: 05-01-2022 Chart Update Jing canseco Work Phone: HV-CICF-Fqmb 5614E Work Phone: Start: 04-29-2022 ambulatory DO JING CAMPBELL Facility:[id number] Start: 04-29-2022 Current tobacco non- user cad cap copd pv dm Jing Campbell Work Phone: IY-SRTQ-Sxke 0769W Work Phone: Start: 04-16-2022 Chart Update Jing canseco Work Phone: CZ-DJEK-Qiwc 2535A Work Phone: Start: 04-12-2022 Patient encounter procedure Jing Campbell Work Phone: YL-HVVS-Asgb 2535A Work Phone: Start: 04-12-2022 ambulatory DO JING JOE SANDOVALManuel CAMPBELL Facility:[id number] Start: 01-07-2022 Office outpatient vi sit 15 minutes Jing Campbell [facility] Work Phone: Start: 11-30-2021 AUDIT Jing canseco Work Phone: [id number] Work Phone: Start: 11-28-2021 AUDIT Jing canseco Work Phone: [id number] Work Phone: Start: 11-26-2021 Chart Update Jing canseco Work Phone: [id number] Work Phone: Start: 11-20-2021 Office outpatient ne w 45 minutes Jing Campbell Work Phone: [facility] Work Phone: Start: 10-29-2021 Office outpatient vi sit 25 minutes Jing Campbell Work Phone: HV-KUCZ-Qxzx [id number] Work Phone: Start: 05-08-2021 Current tobacco non- user cad cap copd pv dm Jing Campbell Work Phone: LN-WOGC-Qgom 2535A Work Phone: Start: 04-20-2021 Office consultation new/estab patient 60 min Jing Campbell Work Phone: [facility] Gastroenterology-[facility] Work Phone: Start: 04-04-2021 Office outpatient vi sit 25 minutes Jing Campbell Work Phone: PC-YOTN-Qlls 2535A Work Phone: Start: 03-13-2021 AUDIT Jing canseco Work Phone: DD-TNLO-Lzgq 2535A Work Phone: Start: 02-26-2021 AUDIT Jing canseco Work Phone: CW-SOZH-Sbwa 2535A Work Phone: Start: 02-23-2021 Chart Update Jing canseco Work Phone: JJ-GGJJ-Jjgm 2535A Work Phone: Start: 02-20-2021 Office outpatient vi sit 25 minutes Jing Campbell Work Phone: RH-UDLE-Pdoi 2535A Work Phone: Start: 02-20-2021 Patient encounter procedure Jing Campbell Work Phone: AV-UZMP-Bups 2535A Work Phone: Start: 12-27-2020 Office outpatient vi sit 25 minutes Jing Campbell Work Phone: XT-KFWU-Kpnv 2535A Work Phone: Start: 07-10-2020 Patient encounter procedure Jing Campblel AY-ZCSY-Ntrc 2535A Work Phone: Start: 02-11-2020 Patient encounter procedure Jing Campbell DH-CBYA-Hzol 2535A Work Phone: Start: 07-01-2019 Patient encounter procedure Jing Campbell MN-OMXQ-Jgmh 2535A Work Phone: Start: 05-19-2019 Patient encounter procedure Jing Campbell GW-DQDQ-Icsi 2535A Work Phone: Start: 05-10-2019 Patient encounter procedure Jing Campbell TK-SHJO-Wadu 2535A Work Phone: Start: 08-25-2018 Patient encounter procedure JUAN RUTHERFORD Facility:8 Start: 05-07-2018 Patient encounter procedure JING CAMPBELL Facility:3 Start: 10-18-2017 Ambulatory Jing Campbell Facility :[place] Procedures Date Procedure Procedure Detail Performing Clinician [...] Author Start: 03-28-2023 Influenza vaccination INFLUENZA (#1) [facility] Start: 01-07-2023 FUV, Provider: Sandra Taylor, Status: Pen, Time: 9:45 AM FUV, Provider: Sandra Taylor, Status: Pen, Time: 9:45 AM [facility] Work Phone: Start: 10-29-2022 EPV, Provider: Jing Campbell, Status: Pen, Time: 10:40 AM EPV, Provider: Jing Campbell, Status: Pen, Time: 10:40 AM XA-FXIQ-Zkfq 2535A Work Phone: Start: 07-28-2022 ADVANCE DIRECTIVE DISCUSSION ADVANCE DIRECTIVE DISCUSSION [facility] Start: 07-28-2022 DEPRESSION ASSESSMENT DEPRESSION ASSESSMENT [facility] Start: 04-29-2022 MCRINITIAL, Provider: Jing Campbell, Status: Pen, Time: 10:40 AM MCRINITIAL, Provider: Jing Campbell, Status: Pen, Time: 10:40 AM EG-WFIX-Hpaa 2535A Work Phone: Start: 01-07-2022 FUV, Provider: Efra Barnett, Status: Pen, Time: 9:15 AM FUV, Provider: Efra Barnett, Status: Pen, Time: 9:15 AM -[facility] Work Phone: Start: 12-05-2021 NPV, Provider: Efra Barnett, Status: Pen, Time: 9:30 AM NPV, Provider: Efra Barnett, Status: Pen, Time: 9:30 AM EI-GIAU-Kedl 2535A Work Phone: Start: 07-16-2021 COVID-19 VACCINE (4 - Moderna series) COVID-19 VACCINE (4 - Moderna series) [facility] Start: 05-08-2021 Patient encounter procedure MCRANNUAL, Provider: Jing Campbell, Status: Pen, Time: 10:20 AM NU-IFOJ-Jquf 2535A Work Phone: Start: 04-20-2021 NPV, Provider: Allyn Ba, Status: Pen, Time: 9:30 AM NPV, Provider: Allyn Ba, Status: Pen, Time: 9:30 AM [facility] Work Phone: Start: 04-04-2021 MCRINITIAL, Provider: Jing Campbell, Status: Pen, Time: 9:20 AM MCRINITIAL, Provider: Jing Campbell, Status: Pen, Time: 9:20 AM MR-MMVD-Xxks 2535A Work Phone: Start: 03-20-2021 NPV, Provider: Juan Rutherford, Status: Pen, Time: 2:30 PM NPV, Provider: Juan Rutherford, Status: Pen, Time: 2:30 PM [facility] Work Phone: Start: 02-16-2021 NPV, Provider: Allyn Ba, Status: Pen, Time: 8:00 AM NPV, Provider: Allyn Ba, Status: Pen, Time: 8:00 AM CW-NNXR-Dpnr 4040J Work Phone: Start: 2014 BONE DENSITY BONE DENSITY [facility] Start: 2014 PNEUMOCOCCAL: 65+ (1 - PCV) PNEUMOCOCCAL: 65+ (1 - PCV) [facility] Start: 11-08-1999 SHINGRIX VACCINE (1 of 2) SHINGRIX VACCINE (1 of 2) [facility] Start: 1994 COLOGUARD (FIT-DNA) COLOGUARD (FIT-DNA) [facility] Start: 1994 Colonoscopy COLONOSCOPY [facility] Start: 1994 COLORECTAL CANCER SCREENING COLORECTAL CANCER SCREENING [facility] Start: [address] COLONOGRAPHY [facility] Start: 1994 DIABETES SCREEN DIABETES SCREEN [facility] Start: 1994 FECAL OCCULT BLOOD FECAL OCCULT BLOOD [facility] Start: 1994 LIPID SCREEN LIPID SCREEN [facility] Start: 1994 SIGMOIDOSCOPY SIGMOIDOSCOPY [facility] Start: 1989 Mammography MAMMOGRAM [facility] Start: 1968 Urine microalbumin profile DTAP,TDAP,TD (1 - Tdap) [facility] Start: 11-08-1967 HEPATITIS C SCREENING HEPATITIS C SCREENING [facility] Immunizations Immunization Date Immunization Notes Care Provider Keila schneider 04-12-2022 Fluzone High-Dose Quadrivalent 0.7 ML Intramuscular Suspension Prefilled Syringe; Translations: [Fluzone High-Dose Quadrivalent 0.7 ML Intramuscular Suspension Prefilled Syringe] Jing Campbell Work Phone: EG-LBYG-Pntu 8814L Work Phone: Comment on above: Series: 05-21-2021 Moderna COVID-19 Vac cine 100 MCG/0.5ML Intramuscular Suspension Jing Campbell Work Phone: DH-FXSH-Cznl 2535A Work Phone: Comment on above: Series: 04-04-2021 influenza, high dose seasonal, preservative-free; Translations: [Fluzone High-Dose 0.5 ML Intramuscular Suspension Prefilled Syringe] Jing Campbell Work Phone: FE-NSXQ-Fhbs 2536Z Work Phone: Comment on above: Series: 10-27-2020 Moderna COVID-19 Vac cine 100 MCG/0.5ML Intramuscular Suspension Jing Campbell Work Phone: WF-BRMD-Rzec 2538Z Work Phone: Comment on above: Series: 09-22-2020 Moderna COVID-19 Vac cine 100 MCG/0.5ML Intramuscular Suspension Jing Campbell Work Phone: NB-KRKR-Lvwb 2538I Work Phone: 03-20-2020 influenza, injectabl e, quadrivalent, preservative free Jing Campbell Work Phone: YZ-CLXE-Lemh 2538U Work Phone: 05-19-2019 influenza, high dose seasonal, preservative-free; Translations: [Fluzone High-Dose 0.5 ML Intramuscular Suspension Prefilled Syringe] Jing Campbell HR-NHFW-Ulnv 2532I Work Phone: Comment on above: Series: 05-10-2019 pneumococcal polysaccharide vaccine, 23 valent; Translations: [Pneumococcal polysaccharide vaccine, 23 valent] Jing Campbell VN-WMUH-Yptb 2534M Work Phone: Comment on above: Series: 03-12-2018 influenza, high dose seasonal, preservative-free Jing Campbell Work Phone: HM-WTQO-Bsej 2535B Work Phone: 05-08-2016 pneumococcal conjuga te vaccine, 13 valent Jing Campbell Work Phone: EJ-UITJ-Zzwn 1803U Work Phone: Comment on above: Series: 06-21-2014 pneumococcal polysaccharide vaccine, 23 valent Jing Villavicencio Adrian Work Phone: ZK-ZHAD-Xinb 2538Z Work Phone: 06-21-2014 zoster vaccine, live Hayley Campbell Work Phone: ZK-BKKX-Ilue 2532L Work Phone: Payers Date Payer Category Payer Self-pay 2021 Unknown 2014 Medicare MEDICARE MEDICAR E A AND B [id number] 2014-Present [phone] [place] [address] Medicare [id number] 1992 Medicare [id number] 1959 Medicare [id number] 1959 Unknown [id number] 1949 Unknown [id number] 2.16.840.1.608409.3.579.2.355 1949 Unknown [id number] 2.16.840.1.936979.3.579.2.355 1949 Unknown [id number] 2.16.840.1.470319.3.579.2.593 1949 Unknown [id number] 2.16.840.1.467935.3.579.2.593 1949 Unknown [id number] 2.16.840.1.925023.3.579.2.59 1949 Unknown [id number] 2.16.840.1.668503.3.579.2.593 1949 Unknown [id number] 2.16.840.1.185430.3.579.2.593 1949 Unknown [id number] 2.16.840.1.035388.3.579.2.593 1949 Unknown [id number] 2.16.840.1.712881.3.579.2.1069 1949 Unknown [id number] 2.16.840.1.822189.3.579.2.356 1949 Unknown [id number] 2.16.840.1.220753.3.579.2.356 1949 Unknown [id number] 2.16.840.1.066817.3.579.2.356 1949 Unknown [id number] 2.16.840.1.868856.3.579.2.356 1949 Unknown [id number] 2.16.840.1.098630.3.579.2.356 1949 Unknown [id number] 2.16.840.1.269744.3.579.2.356 1949 Unknown [id number] 2.16.840.1.528237.3.579.2.356 1949 Unknown [id number] 2.16.840.1.400706.3.579.2.1259 1949 Unknown [id number] 2.16.840.1.872430.3.579.2.1245 1949 Unknown [id number] 2.16.840.1.743864.3.579.2.1243 1949 Unknown [id number] 2.16.840.1.033498.3.579.2.727 1949 Unknown [id number] 2.16.840.1.239241.3.579.2.727 1949 Unknown [id number] 2.16.840.1.872446.3.579.2.727 1949 Unknown [id number] 2.16.840.1.606660.3.579.2.727 1949 Unknown [id number] 2.16.840.1.138260.3.579.2.727 1949 Unknown [id number] 2.16.840.1.376782.3.579.2.727 1949 Unknown [id number] 2.16.840.1.069667.3.579.2.727 Unknown [id number] Unknown [id number] 2.16.840.1.203137.3.579.2.531 Unknown [id number] 2.16.840.1.827911.3.579.2.462 Unknown [id number] 2.16.840.1.410756.3.579.2.462 Unknown [id number] 2.16.840.1.666650.3.579.2.462 Unknown [id number] 2.16.840.1.951392.3.579.2.462 Unknown [id number] 2.16.840.1.984772.3.579.2.462 Unknown [id number] 2.16.840.1.434463.3.579.2.462 Unknown [id number] 2.16.840.1.133745.3.579.2.462 Unknown [id number] 2.16.840.1.700916.3.579.2.462 Unknown [id number] 2.16.840.1.701176.3.579.2.462 Social History Date Type Detail Facility Start: 03-11-2022 End: 02-24-2023 Former smoker Former smoker PZ-VILO-Ddlz 2535A Work Phone: Start: 05-30-2014 End: 08-25-2023 Tobacco smoking status WAIS Ex-smoker [facility] History of tobacco use Current smoker [facility] Start: 03-11-2022 Alcohol intake Current drinke r of alcohol (finding) [facility] Start: 03-11-2022 End: 02-24-2023 Tobacco use panel [facility] National Score (1-100), lower number is lower risk 91 [facility] Start: 05-30-2014 Tobacco Comment quit 7 years ago Efra[facility] Start: 05-30-2014 Alcohol Comment social [facility] Start: 1950 Sex Assigned At Not on file [facility] Start: 1950 Sex Assigned At Female F [facility] NEGATED: Highlighted row - - [employer]- [facility] [place] 3055A Work Phone: Medical Equipment Procedure Code Equipment Code Equipment Origin al Text Equipment Identifier Dates Lens Iol +15.50 Acrsf 13mm 6mm - [id number] Start: 04-11-2015 Lens Iol +14 Salvador p 0 D Bcnvx 13 - [id number] Start: 04-25-2015 Functional Status Date Assessment Result Facility 10-06-2023 Functional Status N/A [facility] 08-25-2023 Functional Status N/A [facility] NEGATED: Highlighted row Functional performance Functional status health issues are not documented Disease CE-FRTN-Hkfs 2532P Work Phone: Mental Status Date Assessment Result Facility NEGATED: Highlighted row Cognitive function [Interpretation] Cognitive status health issues are not documented Disease NF-KKHG-Hcpe 2097K Work Phone: Clinical Notes 12-28-2020 to 03-04-2024 Lawrence Medina MD - 03/28/2023 10:39 AM EDT Note Date & Type Note Facility 03-04-2024 Note [facility] Medical Records Department [address] [place] [address] History Physical Exam 03/04/24 0715 MR#: [id number] Acct: [id number] Name: BRIGITTE IHGH Rep #: [id number] : 1950 73 From: Jadyn Chavez MD PCP: MITCHEL BrownC [place] [facility] [place] [address] History and Physical Date of Admission: 03/04/24 The patient is examined and there are no changes from the H P dated 02/12/2024. The patient presents for right breast lift for symmetry and revision left breast reconstruction. Informed consent is obtained and patient is marked in the preop holding area. Assessment Plan Assessment/Plan (1) Breast asymmetry between atka breast and reconstructed breast: PLAN: Patient for right breast lift for symmetry (2) Painful periwound skin: PLAN: Patient for revision left breast reconstruction (3) Ptosis of right breast: (4) Status post left breast reconstruction: (5) History of breast cancer in adulthood: 03/04/24 0718 Cosigner Signature (if applicable): CC: DOUG Dougherty; Dr. Jadyn Chavez MD Signed [facility] 11-04-2023 Evaluation + Plan note Diagnostic Tests PendingUrine Culture 11/04/23 [facility] 10-06-2023 Hospital Discharge instructions Patient Education 10/06/2023 [...] provider. Document Revised: 11/22/2021 Document Reviewed: 11/22/2021 [employer] Patient Education 2022 MYFX. Follow Up Care 09/09/2023 14:36:29 With:JORJE FIGUEROA, Star Villavicencio, URL Address: [facility] [address] [place] [phone] When: Unknown Comments:toro call pt to review updated path [facility] 08-25-2023 Hospital Discharge instructions Patient Education 08/25/2023 13:11:13 Urinary Tract Infection, Adult, Ctkh-fo-Rjht Urinary Tract Infection, Adult A urinary tract [...] Follow these instructions at home: Medicines Take tmpc-ths-fpuisvu and prescription medicines only as told by [...] provider. Document Revised: 02/23/2021 Document Reviewed: 02/23/2021 [employer] Patient Education 2022 MYFX. Follow Up Care 05/27/2023 09:36:14 With:JORJE FIGUEROA, Star Villavicencio, URL Address: [facility] [address], [place] [address]- [phone] When: Unknown Comments:sched cysto/UD [facility]-2023 Note Chief Complaint furuncle HPI [...] MD, URL [facility] [address], [place] [phone] Additional Instructions: sched cysto/UD Patient Education Urinary Tract Infection, Adult, Csnt-ye-Imrn IPari, personally scribed for Dr. Recinos on 08/25/2023 13:18:05. Electronically signed by (more content not included)... [facility] Comment on above: Result Comment: Elec tronically Signed By: Star RECINOS MD\.br\Date and Time Signed: 08/25/23 13:21 EST\.br\Electronically Co-Signed By: Pari Anton\Juliethbr\Date and Time Co-Signed: 08/25/23 13:18 EST 03-28-2023 Note HNO ID: [id number] Author: Lawrence Medina MD Service: ? Author [...] forward with replacement surgery. Lawrence Medina MD [facility] 03-28-2023 History of Present illness Narrative Family [...] Lawrence Medina MD documented in this encounter [facility] 03-25-2023 Note HNO ID: [id number] Author: Gray Mcdonald RT(Saud) Service: Radiology Author [...] RT Jennifer(R) March 25, 2023 1:36 PM [facility] 11-28-2022 Note PROCEDURE: XR KNEE L T [...] authenticated by: ILDEFONSO HO Date: 2022-11-28 18:01 [facility] 12-05-2021 History of Present illness Narrative The [...] complaints of dyspnea (Reports SOB on exertion) [facility] Work Phone: 10-29-2021 History of Present illness [...] complaints of dyspnea (Reports SOB on exertion) FH-TDHW-Ssvi 4650U Work Phone: 04-20-2021 History of Present illness [...] in March [address] Simms at [facility] that demonstrated melanosis coli, two 2-3 mm [...] 1 glass of wine daily. No illicits. [facility] G[facility]ology-[facility] Work Phone: 03-31-2021 History of Present illness [...] experiencing symptoms. No associated symptoms are reported. TE-LPGG-Slid 5946R Work Phone: 02-22-2021 History of Present illness Narrative BRIGITTE HIGH presents with complaints of joint pain, described as aching On a scale of 1 to 10, the patient rates the pain as 7 (Reports h/o generalized joint pain. Worsening x2 weeks)Associated symptoms include joint stiffness, morning stiffness and fatigue, but no fever and no chills.joint swelling HI-BJNF-Qlim 2535A Work Phone: 02-20-2021 History of Present illness Narrative BRIGITTE HIGH presents with complaints of joint pain, described as aching On a scale of 1 to 10, the patient rates the pain as 7 (Reports h/o generalized joint pain. Worsening x2 weeks)Associated symptoms include joint stiffness, morning stiffness and fatigue, but no fever and no chills.joint swelling JK-QXJO-Ymww 2535A Work Phone: 02-17-2021 History of Present [...] Hot shower in AM.low back pain into [facility] Work Phone: 12-31-2020 History of Present illness [...] [facility]: 12-28-2020 History of Present illness [...] Hot shower in AM.low back pain into [facility] 2535A Work Phone: Evaluation + Plan note No data available for this section [facility] [place] Evaluation note Diagnosis Breast pain- Primary Mastodynia Acquired breast deformity Other specified disorders of breast Capsular contracture of breast implant, initial encounter documented in this encounter [facility] Diagnosis Onset Date Resolution Status Bronchitis acute [facility] Work Phone: History of Present illness Narrative* [...] has living will. Patient has healthcare POA. JD-WNMJ-Gnkv 7581R Work Phone: History of Present illness NarrativePatient [...] and would like to become sexually active soon.[facility] Work Phone: history of Present illness NarrativePatient here for recheck of topical estrogen Rx use for severe atrophic vulvovaginitis. Patient stated she had a lot of spotting with using the applicator, she started having hot flashes and headaches and had to stop the topical estrogen. She has no further bleeding since stopping the medication. 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 [facility] Work Phone: History of Present illness Narrative* Hand Swelling * C/o swelling to 1st finger and middle finger x1 week. * C/o joint aching. * Hands felt tight while wearing gloves. * Took OTC Diurex and Aspercreme, voiced mild improvement. CQ-MPOO-Tkxd 5844I Work Phone: History of Present illness Narrative* [...] has living will. Patient has healthcare POA. BZ-TGHI-Jtbr 4599K Work Phone: History of Present illness Narrative* [...] needed * All questions answered * . 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 DATE CREATED AUTHOR AUTHOR'S ORGANIZ ATION 11/26/2021 [facility] DATE CREATED AUTHOR AUTHOR'S ORGANIZ ATION 12/05/2022 [facility] DATE CREATED AUTHOR AUTHOR'S ORGANIZ ATION 01/21/2023 [facility] DATE CREATED AUTHOR AUTHOR'S ORGANIZ ATION 02/12/2023 [facility] DATE CREATED AUTHOR AUTHOR'S ORGANIZ ATION 02/12/2023 [facility] DATE CREATED AUTHOR AUTHOR'S ORGANIZ ATION 10/17/2023 [facility] DATE CREATED AUTHOR AUTHOR'S ORGANIZ ATION 10/21/2023 [facility] DATE CREATED AUTHOR AUTHOR'S ORGANIZ ATION 11/19/2023 [facility] DATE CREATED AUTHOR AUTHOR'S ORGANIZ ATION 01/20/2024 [facility] DATE CREATED AUTHOR AUTHOR'S ORGANIZ ATION 01/21/2024 [facility] DATE CREATED AUTHOR AUTHOR'S ORGANIZ ATION 04/23/2024 [facility] DATE CREATED AUTHOR AUTHOR'S ORGANIZ ATION 04/23/2024 [facility] Source Comments (unrecognize d section and content) In the event this informatio n is protected by the Federal Confidentiality of Alcohol and Drug Abuse Patient Records regulations: The Federal rules restrict any use of the information to criminally investigate or prosecute any alcohol or drug abuse patient.[facility] Reason for Visit (unrecogniz ed section and content) Reason Comments New Patient Evaluation Patient states ramires s possible implant leak. 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 [employer] [facility]. provides no warranty or guarantee of the accuracy or completeness of information in this document.
[2024-05-03 08:12] VITALS: BP 126/83; PULSE 64; TEMP 36.2; O2SAT 95
[2024-05-03] MEDS: LIDOCAINE 2% JELLY 10 ML UR (08:20)
[2024-05-03 08:25] VITALS: BP 123/72; BP 135/84; PULSE 60; PULSE 62; O2SAT 97; O2SAT 98
--- NOTE | 2024-05-03 08:28 | PM.URSON ---
Urology Surgery Operative Note Operative Note Procedure Date: 05/03/24 Time Out Performed: yes Pre-op Diagnosis: History of high-grade squamous intraepithelial urethral lesion Post-op Diagnosis: same as pre-op Procedures performed: 1. Cystoscopy. Anesthesia: local Primary Surgeon: Star Campos Complications: None Estimated blood loss (mL): 0 Findings: Possible minimal regrowth of urethral lesion Specimens: None Drains: None Indications for Procedures: This lady has a history of recurrent UTIs and high-grade squamous intraepithelial lesion by excisional biopsy done September 26, 2023. She now presents for a cystoscopy and urethral exam. She has signed an informed consent. Detailed description of Procedure: The patient was kept on the [place] bed and brought in the Endo suite. She was in the supine position. Her legs were frog-legged. Timeout was done by all parties in the room. We all agreed upon the patient's identification and the planned procedures for this patient. Genitalia were sterilely prepped and draped in the usual fashion. 2% lidocaine gel was passed per urethra. I started by examining her urethra. It is possible that she has ever so slight regrowth of the lesion on the posterior aspect of the urethral meatus. I then passed the flexible cystoscope per urethra and into the bladder. The urethra appeared unremarkable. The bladder revealed no evidence of any tumors or stones. There was moderate trabeculation. The scope was retroverted upon itself and no new findings were noted. The scope was then removed. The plan is that we will do this again in 6 months. If there is any growth noted we will then reexcise this posterior urethral lesion.
== END 2024-05-03 08:40 | disposition home or self-care (01) ==
PROVIDERS: PCP Nurse Practitioner Family; Visit Provider Urology
PROC: (CPT 52000; principal; 2024-05-03 08:30)
DX: Z87.440 Personal history of urinary (tract) infections (principal); Z85.3 Personal history of malignant neoplasm of breast; H91.90 Unspecified hearing loss, unspecified ear; Z87.448 Personal history of other diseases of urinary system; N32.89 Other specified disorders of bladder; Z87.891 Personal history of nicotine dependence
CPT/HCPCS: 52000

== ENCOUNTER 2024-09-15 12:19 | Outpatient (OUT) | payer MEDICARE, OTHER, SELFPAY ==
--- OUTSIDE RECORDS SUMMARY | 2024-09-15 12:25 | XMS_ITS | CCD ---
Author Organization [facility] Care Team Providers Care Ux Consultant Name Role Phone Jing Campbell Unavailable Unavailable Se Campbellelle Unavailable Unavailable Se Campbellelle Unavailable Unavailable JING CAMPBELL Attending Unavailable JING CAMPBELL Primary Care Unavailable JUAN RUTHERFORD Attending Unavailable [...] S Unavailable MD CARLITO HORVATH Attending Laura hamiltonilable DO JING CAMPBELL Referring Unavail able DO JING CAMPBELL Attending Unavail able ADRIAN, DO JING GILLETTE Primary Care Unavail able MD SANDRA TAYLOR Referring Unavailable MD SANDRA TAYLOR Attending Unavailable MD SANDRA TAYLOR Referring Unavailable MD SANDRA TAYLOR Attending Unavailable ADRIAN, DO JING KEREN Primary Care Unavail able MD SANDRA TAYLOR Referring Unavailable MD SANDRA TAYLOR Attending Unavailable MD SANDRA TAYLOR Attending Unavailable MD SANDRA TAYLOR Referring Unavailable MD CARLITO HORVATH Attending Laura vailable MD CARLITO HORVATH Admitting Laura vailable ADRIAN, DO JING KEREN Primary Care Unavail able ADRIAN, DO JING KEREN Referring Unavail able ADRIAN, DO JING KEREN Attending Unavail able Adrian DO, Jing Keren Primary Care Provider KRISTYN DOUGHERTY S Primary Care Physician Lawrence MEDINA Referring Unavailable ADRIAN, JING KEREN Primary Care Unavailabl e Lawrence MEDINA Attending Unavailable ADRIAN, JING KEREN Primary Care Unavailabl Star Parnell Attending Unavailable Star Recinos Admitting Unavailable TANIA ARREDONDO Attending Unavailable MD Star Recinos Attending Provider CARLITO HORVATH Attending Unavailable LADONNA, KRISTYN S Primary Care Unavailable LADONNA, KRISTYN S Primary Care Unavailable Ghazoul, Jadyn Consulting Unavailable Ladonna, Kristyn Primary Care Unavailable Ghazoul, Jadyn Attending Unavailable Ghazoul, Jadyn Referring Unavailable Ghazoul, Jadyn Attending Unavailable Ghazoul, Jadyn Attending Unavailable Ghazoul, Jadyn Attending Unavailable Ghazoul, Jadyn Attending Unavailable Ladonna, Kristyn Referring Unavailable Ladonna, Kristyn Primary Care Unavailable Ghazoul, Jadyn Attending Unavailable Ladonna, Kristyn Referring Unavailable Ladonna, Kristyn Primary Care Unavailable Ladonna, Kristyn Primary Care Unavailable Ghazoul, Jadyn Attending Unavailable Ladonan, Kristyn Referring Unavailable Ladonna, Kristyn Primary Care Unavailable Ghazoul, Jadyn Attending Unavailable Ladonna, Kristyn Referring Unavailable Ladonna, Kristyn Primary Care Unavailable Ghazoul, Jadyn Attending Unavailable Ladonna, Kristyn Referring Unavailable Ladonna, Kristyn Primary Care Unavailable Ghazoul, Jadyn Attending Unavailable Ghazoul, Jadyn Referring Unavailable Ladonna, Kristyn Primary Care Unavailable Ghazoul, Jadyn Attending Unavailable Ladonna, Kristyn Referring Unavailable Ladonna [employer] [facility], Kristyn S Primary Care Provider Carlito Horvath MD Unavailable [phone] Star RECINOS Attending Unavailable RECINOS, Star Villavicencio Attending Unavailable RECINOS, Star Villavicencio Attending Unavailable RECINOS, Star Villavicencio Attending Unavailable RECINOS, Star Villavicencio Attending Unavailable RECINOS, Star Villavicencio Attending Unavailable RECINOS, Star Villavicencio Referring Unavailable Star RECINOS Attending Unavailable Allergies Allergy Classification Reported Allergen(s) Allergy Type Date of Onset Reaction(s) Facility Acetaminophen (9 sources) Acetaminophen; Translations: [Tylenol] Drug Allergy [id number] 2535A Work Phone: (20 sources) Acetaminophen; Translations: [Tylenol] Drug Allergy Tinnitus (finding) [facility] (20 sources) Codeine; Translations: [Codeine Derivatives] Drug Allergy 3 Unknown UN-PHNF-Narv 2535A Work Phone: (15 sources) Mold Extract Drug Allergy XX-BLED-Lbbz 2535A Work Phone: (15 sources) Redkey mold Allergy to substance (finding) BO-DOKK-Ktfk 2535A Work Phone: (5 sources) Animal dander - Cats Allergy to substance (finding) CV-ZSKH-[id number] 2535A Work Phone: (5 sources) Acetaminophen; Translations: [ACETAMINOPHEN] Drug Allergy 4 Other: See Comments, Unknown [facility] (2 sources) Codeine; Translations: [CODEINE] Drug Allergy 3 [facility] (1 source) Environmental Allergies: Uncoded; Translations: [Environmental Allergies: Uncoded] Propensity to adverse reactions (disorder) 4 [facility] (1 source) cat dander Drug allergy (disorder) 4 [facility] Medications Current Medications Medication Drug Class(es) Dates Sig (Normalized) Sig (Original) amoxicillin 875 mg / clavulanate 125 mg oral tablet (2 sources) Penicillin-class Antibacterial Start: 08-25-2023 End: 10-24-2023 take 1 tablet by mouth every twenty-four hours at mealtime Augmentin 875 mg oral tablet = 1 tab(s), Oral, q24hr, Take with probiotics and with food., X 30 day(s), # 30 tab(s), Refills(s) 1, Pharmacy: [facility]/pharmacy #[id number], 165, cm, 08/25/23 12:11:00 EST, Height/Length [...] Jing Campbell DO Start : 29-Oct-2021 Active bimatoprost 0.3 mg/ml topical solution (20 sources) Prostaglandin Analog Start: 04-15-[address] (Latisse) 0.03 % ophthalmic solution Indications: Encounter for general adult medical examination without abnormal findings APPLY 1 IN[facility] TO AFFECTED EYE EVERYDAY AT BEDTIME 3 mL 3 04/15/2023 Active Bimatoprost 0.03 % External Solution APPLY 1 [facility] Bedtime Quantity: 1 Refills: 3 Ordered: 12-Apr-2022 Jing Campbell DO Active Bimatoprost 0.03 % External Solution APPLY 1 [facility] Bedtime Quantity: 1 Refills: 3 Ordered: 29-Oct-2021 Jing Campbell DO Active Calcium Citrate / Vitamin D (4 sources) Start: 08-25-2023 calcium-vitamin D Refill(s) 0 Start Date: 08/25/23 Status: Ordered cholecalciferol 0.05 mg oral tablet (20 sources) Vitamin D Start: 07-10-2020 take 1 tablet by mouth once daily cholecalciferol (Vitamin D-3) 50 MCG (2000 UT) tablet Take 1 tablet (2,000 Units) by mouth once daily. 07/10/2020 Active doxycycline hyclate 100 mg oral capsule (16 sources) Tetracycline-c lass Drug Start: 10-29-2021 doxycycline (Vibramycin) 100 mg capsule Take by mouth. 10/29/2021 Active Start: 10-29-2021 take 1 capsule by mouth once D oxycycline Hyclate 100 MG Oral Capsule Take 1 capsule by mouth daily. (Per Derm) Quantity: 0 Refills: 0 Ordered: 29-Oct-2021 DO Start : 29-Oct-2021 Active Elderberry preparation (3 sources) Start: 10-06-2023 elderberry [...] 2023 12:00am methylPREDNISolone 4 mg oral tablet (2 sources) Corticosteroid Start: 12-21-2023 take 1 tablet by mouth once Methylprednisolone (Medrol (John Paul)) 4 mg tablets,dose pack Active 0 PO per package directions December 21, 2023 12:00am PO PER PKG DIR Start: 04-12-2022 methylPREDNISo lone (Medrol Dospak) 4 mg tablets Take by mouth. 04/12/2022 Active 24 hr mirabegron 50 mg extended release [...] Ordered: 21-Nov-2022 DO Start : 21-Nov-2022 Active sennosides, prison 8.6 mg oral tablet (20 sources) Start: 04-04-2021 sennosides (Se nokot) 8.6 mg tablet 8 tablets (68.8 mg) once daily at bedtime. 04/04/2021 Active vit B complex 100 combo no.2 (B-100 Complex) 100 mg tablet extended release (1 source) vit B complex 10 0 combo no.2 (B-100 Complex) 100 mg tablet extended release Take by mouth. Active Completed/Discontinued Medications Medication Drug Class(es) Dates Sig (Normalized) Sig (Original) B Complex 1 TABS (1 source) B Complex 1 TABS Refills: 0 DO Active B Complex 1 TABS (20 sources) B Complex 1 TABS Quantity: 0 Refills: 0 Ordered: 30-Apr-2019 DO Active calcium carbonate 1500 mg / cholecalciferol 200 unt oral tablet (1 source) Vitamin D Start: 5 take 1 tablet by mouth once daily calcium carbonate 600 mg-cholecalciferol 200 units (CALCIUM 600 + D,3,) 600 mg(1,500mg) -200 unit tab Take 1 tablet by mouth once daily. 0 03/28/2015 Active Comment on above: Take 1 tablet by sophia th once daily. cefdinir 300 mg oral capsule (2 sources) Cephalosporin Antibacterial Start: 2 Cefdinir 300 MG Oral Capsule Quantity: 20 Refills: 0 Ordered: 28-Jun-2022 DO Start : 28-Jun-2022 Active celecoxib 200 mg oral capsule (2 sources) Nonsteroidal Anti-inflammatory Drug Start: 1 take 1 capsule by mouth once daily as needed Celecoxib 200 MG Oral Capsule TAKE 1 CAPSULE DAILY NEEDED. Quantity: 30 Refills: 2 Ordered: 08-May-2021 Jing Campbell DO Start : 08-May-2021 Active cephalexin 500 mg oral capsule (2 sources) Cephalosporin Antibacterial Start: 3 Cephalexin 500 MG Oral Capsule Quantity: 40 Refills: 0 Ordered: 16-Aug-2022 DO Start : 16-Aug-2022 Active clindamycin 10 mg/ml medicated pad (2 sources) Lincosamide Antibacterial Start: 2 Clindamycin Phosphate 1 % External Swab Quantity: 60 Refills: 0 Ordered: 28-Mar-2022 DO Start : 28-Mar-2022 Active diclofenac sodium 75 mg delayed release oral tablet (2 sources) Nonsteroidal Anti-inflammatory Drug Start: 2 Diclofenac Sodium 75 MG Oral Tablet Delayed Release Quantity: 60 Refills: 0 Ordered: 06-Jul-2022 DO Start : 06-Jul-2022 Active escitalopram 10 mg oral tablet (15 sources) Serotonin Reuptake Inhibitor take 1 tablet by mouth once daily Escitalopram Oxalate 10 MG Oral Tablet TAKE 1 TABLET DAILY. Quantity: 90 Refills: 3 Ordered: 04-Apr-2021 Jing Campbell DO Active estradiol 0.1 mg/ml vaginal cream (6 sources) Estrogen Start: 2 Estradiol 0.1 MG/GM Vaginal Cream Apply pea-sized [...] tablet (2 sources) Nonsteroidal Anti-inflammatory Drug Start: 3 Ibuprofen 600 MG Oral Tablet Quantity: 100 Refills: 0 Ordered: 20-Nov-2022 DO Start : 20-Nov-2022 Active linaclotide 0.29 mg oral capsule (3 sources) Guanylate Cyclase-C Agonist Start: 1 take 1 capsule by mouth once daily Linzess 290 MCG Oral Capsule TAKE 1 CAPSULE Daily Quantity: 90 Refills: 3 Ordered: 20-Apr-2021 Allyn Ba PA-C Start : 20-Apr-2021 Active meloxicam 15 mg oral tablet (7 sources) Nonsteroidal Anti-inflammatory Drug Start: 1 take 1 tablet by mouth once daily Meloxicam 15 MG Oral Tablet TAKE 1 TABLET BY MOUTH DAILY Quantity: 30 Refills: 3 Ordered: 26-Feb-2021 Jing Campbell DO Start : 26-Feb-2021 Active methylPREDNISolone 4 MG Oral Tablet Therapy Pack (3 sources) Start: 2 methylPREDNISolone 4 MG Oral Tablet Therapy Pack [...] Start : 14-Oct-2022 Active polyethylene glycol 3350 508356 mg / potassium chloride 2970 mg / sodium bicarbonate 6740 mg / sodium chloride 5860 mg / sodium sulfate 52047 mg powder for oral solution (2 sources) [...] Start: 12-27-2020 take 4 tablets by mo [facility] once daily, then take 3 tablets by [...] Jing Campbell DO Start : 10-Jul-2020 Active spironolactone 50 mg oral tablet (15 [...] on above: Take 1 tablet by sophia th twice daily. tretinoin 0.25 mg/ml topical cream [...] Translations: [Unspecified abdominal pain] Onset: 08-25-2023 Episodic Calculus of urinary tract (4 sources) Kidney stone; Translations: [Calculus of kidney] Onset: 10-06-2023 Episodic Cancer of breast (6 sources) Malignant neoplasm of unspecified site of unspecified female breast; Translations: [Malignant neoplasm of central portion of right female breast] Onset: 01-17-2023 Chronic Cancer of breast (20 sources) History of malignant neoplasm of breast; Translations: [Personal history of malignant neoplasm of breast] Onset: 03-25-2023 Resolved: 07-10-2020 08-21-2023 Episodic Cataract (20 sources) Bilateral cataracts; Translations: [Unspecified cataract] Onset: 09-05-2022 09-05-2022 Chronic Chronic obstructive pulmonary disease and bronchiectasis (2 sources) Bronchitis; Translations: [Bronchitis, not specified as acute or chronic] 12-21-2023 Episodic Complication of device; implant or graft (1 source) Capsular breast contracture of breast implant; Translations: [Capsular contracture of breast implant, initial encounter] 03-28-2023 Episodic Complications of surgical procedures or medical care (15 sources) Postablative ovarian failure; Translations: [Postablative ovarian failure] Onset: 09-05-2022 09-05-2022 Chronic Deficiency and other anemia (4 sources) Anemia 08-25-2023 Episodic Developmental disorders (1 source) Word finding difficulty ; Translations: [Word finding difficulty] Chronic Disorders of lipid metabolism (2 sources) Hyperlipidemia, unspecified; Translations: [HYPERLIPIDEMIA UNSPECIFIED] Onset: 08-21-2022 Chronic Gastroduodenal ulcer (except hemorrhage) (3 sources) Peptic ulcer, site unspecified, unspecified as acute or chronic, without hemorrhage or perforation; Translations: [Peptic ulcer] Onset: 01-17-2023 01-19-2024 Chronic Headache; including migraine (4 sources) Headache 08-25-2023 Episodic Menopausal disorders (20 sources) Postmenopausal bleeding; Translations: [Postmenopausal bleeding] Onset: 09-05-2022 09-05-2022 Chronic Mood disorders (1 source) Major depressive disorder, single episode, unspecified; Translations: [Major depressive disorder, single episode, unspecified] Onset: 01-17-2023 Chronic Nonmalignant breast conditions (7 sources) Pain of breast; Translations: [Mastodynia] Onset: 02-04-2024 03-28-2023 Episodic Nutritional deficiencies (20 sources) Vitamin D deficiency; Translations: [Unspecified vitamin D deficiency] Onset: 09-05-2022 09-05-2022 Chronic Nutritional deficiencies (4 sources) Iron deficiency; Translations: [Iron deficiency] Onset: 01-16-2024 Episodic Osteoarthritis (20 sources) Arthritis; Translations: [Arthropathy, unspecified, site unspecified] Onset: 09-05-2022 08-25-2023 Chronic Osteoporosis (20 sources) Postmenopausal osteoporosis; Translations: [Senile osteoporosis] Onset: 09-05-2022 01-19-2024 Chronic Other aftercare (20 sources) Patient encounter status; Translations: [Long-term (current) use of other medications] Episodic Other aftercare (2 sources) residential (current) use of non-steroidal anti-inflammatories (NSAID); Translations: [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 non-steroidal anti-inflammatories (NSAID)] Onset: 02-04-2024 Episodic Other connective tissue disease (20 sources) H/O: osteoarthritis; Translations: [Personal history of other musculoskeletal disorders] Episodic Other diseases of bladder and urethra (6 sources) Urethral caruncle; Translations: [Urethral caruncle] Onset: 08-25-2023 Episodic Other ear and sense organ disorders (4 sources) Hearing loss 08-25-2023 Chronic Other female genital disorders (6 sources) Vaginal bleeding; Translations: [Other specified noninflammatory disorders of vagina] Chronic Other gastrointestinal disorders (20 sources) Alteration in bowel elimination; Translations: [Other symptoms involving digestive system] Episodic Other nervous system disorders (19 sources) Numbness and tingling sensation of skin; Translations: [Disturbance of skin sensation] Episodic Other nervous system disorders (2 sources) Impairment of balance; Translations: [Other symptoms involving nervous and musculoskeletal systems] Episodic Other non-traumatic joint disorders (20 sources) Polyarthropathy; Translations: [Unspecified polyarthropathy or polyarthritis, site unspecified] Onset: 09-05-2022 09-05-2022 Chronic Other non-traumatic joint disorders (1 source) Knee pain; Translations: [Knee pain, bilateral] Episodic Other non-traumatic joint disorders (4 sources) Pain in left knee; Translations: [PAIN IN LEFT KNEE] Onset: 11-28-2022 Episodic Other nutritional; endocrine; and metabolic disorders (1 source) Lipodystrophy; Translations: [Lipodystrophy, not elsewhere classified] Onset: 12-09-2014 12-09-2014 Chronic Other screening for suspected conditions (not mental disorders or infectious disease) (20 sources) Breast neoplasm screening status; Translations: [Other screening mammogram] Episodic Other skin disorders (2 sources) Other skin changes; Translations: [Other skin changes] Onset: 02-04-2024 Episodic Other upper respiratory disease (20 sources) Chronic rhinitis; Translations: [Chronic rhinitis] Onset: 09-05-2022 09-05-2022 Chronic Other upper respiratory disease (20 sources) Allergic rhinitis; Translations: [Allergic rhinitis, cause unspecified] Onset: 09-05-2022 09-05-2022 Chronic Other upper respiratory disease (1 source) Other seasonal allergic rhinitis; Translations: [Other seasonal allergic rhinitis] Onset: 01-17-2023 Chronic Residual codes; unclassified (20 sources) Sleep apnea; Translations: [Unspecified sleep apnea] Onset: 09-05-2022 09-05-2022 Chronic Residual codes; unclassified (19 sources) Symptom of head and neck region; Translations: [Other general symptoms] Episodic Residual codes; unclassified (2 sources) Estrogen [...] Spondylosis; intervertebral disc disorders; other back problems (14 sources) Cervical radiculopathy; Translations: [Disorder of lumbar disc] Onset: 09-05-2022 09-05-2022 Chronic Thyroid disorders (1 source) Nontoxic single thyroid [...] infection, site not specified] Onset: 08-25-2023 Episodic Past or Other Problems Problem Classification Problem Date Documented Da te Episodic/Chronic Acute bronchitis (16 sources) Acute bronchitis; Translations: [Acute bronchitis] Onset: 09-05-2022 09-05-2022 Episodic Deficiency and other anemia (1 source) Anemia, unspecified; Translations: [ANEMIA UNSPECIFIED] Onset: 08-21-2022 Episodic Diabetes mellitus without complication (1 source) Other abnormal glucose; Translations: [OTHER ABNORMAL GLUCOSE] Onset: 08-21-2022 Episodic Diseases of mouth; excluding dental (20 sources) Geographic tongue; Translations: [Glossitis] Onset: 09-05-2022 09-05-2022 Episodic E Codes: Fall (20 sources) Fall; Translations: [Unspecified fall] Onset: 09-05-2022 09-05-2022 Episodic External cause codes: Fall (1 source) Fall; Translations: [Fall] Fracture of lower limb (5 sources) Closed fracture of patella; Translations: [Closed fracture of patella] Onset: 01-19-2024 01-19-2024 Episodic Fracture of neck of femur (hip) (20 sources) Fracture of greater trochanter; Translations: [Closed fracture of trochanteric section of neck of femur] Resolved: 07-10-2020 Episodic Genitourinary symptoms and ill-defined conditions (20 sources) Delay when starting to pass urine; Translations: [Urinary hesitancy] Onset: 06-28-2022 Episodic Hemorrhoids (20 sources) Prolapsed internal hemorrhoids; Translations: [Hemorrhoids] Onset: 09-05-2022 09-05-2022 Episodic Malaise and fatigue (4 sources) Other fatigue; Translations: [OTHER FATIGUE] Onset: 08-17-2022 Episodic Nonspecific chest pain (20 sources) Pain of intercostal space; Translations: [Other chest pain] Onset: 09-05-2022 09-05-2022 Episodic Other connective tissue disease (20 sources) Muscle weakness of limb; Translations: [Other musculoskeletal symptoms referable to limbs] Onset: 09-05-2022 09-05-2022 Episodic Other connective tissue disease (8 sources) Swelling of finger ; Translations: [Swelling of limb] Onset: 09-05-2022 09-05-2022 Episodic Other diseases of bladder and urethra (15 sources) Prolapse of urethral mucosa; Translations: [Prolapsed urethral mucosa] Onset: 09-05-2022 09-05-2022 Episodic Other eye disorders (2 sources) Dry eyes; Translations: [Dry eye syndrome of bilateral lacrimal glands] Onset: 01-19-2024 01-19-2024 Episodic Other female genital disorders (8 sources) History of gynecological disorder; Translations: [Personal history of other genital system and obstetric disorders] Resolved: 01-07-2022 Episodic Other gastrointestinal disorders (20 sources) Constipation; Translations: [Constipation, unspecified] Onset: 09-05-2022 09-05-2022 Episodic Other gastrointestinal disorders (3 sources) Altered bowel function; Translations: [Other symptoms involving digestive system] Onset: 09-05-2022 09-05-2022 Episodic Other inflammatory condition of skin (20 sources) Prurigo simplex ; Translations: [Prurigo] Onset: 09-05-2022 09-05-2022 Episodic Other injuries and conditions due to external causes (20 sources) Spider bite wound; Translations: [Toxic effect of venom] Onset: 09-05-2022 09-05-2022 Episodic Other lower respiratory disease (1 source) Pleurodynia; Translations: [PLEURODYNIA] Onset: 08-21-2022 Episodic Other nervous system disorders (20 sources) Word finding difficulty ; Translations: [Mental and behavioral problems with communication [including speech]] Onset: 09-05-2022 09-05-2022 Episodic Other non-traumatic joint disorders (20 sources) Hip pain; Translations: [Pain in joint, pelvic region and thigh] Onset: 09-05-2022 09-05-2022 Episodic Other non-traumatic joint disorders (20 sources) Pain in right knee; Translations: [Knee pain, bilateral] Onset: 09-05-2022 09-05-2022 Episodic Other nutritional; endocrine; and metabolic disorders (20 sources) Weight loss; Translations: [Loss of weight] Onset: 09-05-2022 09-05-2022 Episodic Other nutritional; endocrine; and metabolic disorders (15 sources) Body mass index 25-29 - overweight; Translations: [Overweight] Onset: 09-05-2022 09-05-2022 Episodic Other skin disorders (20 sources) Inflamed seborrheic keratosis; Translations: [Inflamed seborrheic keratosis] Onset: 09-05-2022 09-05-2022 Episodic Other upper respiratory disease (1 source) Nasal congestion; Translations: [NASAL CONGESTION] Onset: 07-08-2022 Episodic Pneumonia (except that caused by tuberculosis or sexually transmitted disease) (20 sources) Pneumonia; Translations: [Pneumonia, organism unspecified] Onset: 09-05-2022 09-05-2022 Episodic Residual codes; unclassified (20 sources) Memory impairment; Translations: [Memory loss] Onset: 09-05-2022 09-05-2022 Episodic Residual codes; unclassified (20 sources) Insomnia; Translations: [Insomnia, unspecified] Onset: 09-05-2022 09-05-2022 Episodic Residual codes; unclassified (15 sources) History of hysterectomy for benign disease; Translations: [Acquired absence of both cervix and uterus] Onset: 09-05-2022 09-05-2022 Episodic Spondylosis; intervertebral disc disorders; other back problems (20 sources) Radiculopathy, cervical region; Translations: [Neck pain] Onset: 05-07-2018 Episodic Unclassified (1 source) M54.16 [id number] Onset: 10-18-2017 Unclassified (1 source) Patient encounter status; Translations: [Medication management] Unclassified (1 source) CONTACT W/AND (SUSP) EXPOS COVID-19; Translations: [CONTACT W/AND (SUSP) EXPOS COVID-19] Onset: 07-05-2022 Viral infection (20 sources) Other specified viral infection; Translations: [Disease caused by 2019-nCoV] Onset: 09-05-2022 09-05-2022 Episodic NEGATED: Highlighted row has not occurred!Residual codes; unclassified (6 sources) Disease Episodic Results Test Name Value Interpretation Reference Range Facility Reminderson 09-09-2024 Reminders Reminders From: Daniella Green To: CLAUDY - Riana Recnios; Sent: 05/20/2024 16:30:34 EDT Show up: 08/28/2024 16:30:00 EST Subject: cysto, 6 mo Due Date/Time: 09/20/2024 16:30:00 EST Reminder/Recall Patient needs sched for 6 month cysto in October 2024, pt prefers [facility] on cell [facility] l/m on cell [facility] Patient called back, sched for 11/15/24 at [facility] Normal [facility] Plastic Surgery Visit Report on 06-02-2024 Plastic Surgery Visit Report [facility]ive [facility] [address] [place] [address] OFFICE VISIT Date of Service: 06/02/24 MR#: [id number] Acct: [id number] Name: BRIGITTE HIGH Rep #: [id number] : 1950 Provider: Dr. Jadyn mccall MD Age/Sex: 73/F Location: [facility] Status: Signed Intake Vital Signs 04/21/24 11:00 06/02/24 10:46 Height 5 ft 5 in 5 ft 5 in Weight: 156 lb BMI 25.9 BP 128/80 H 147/87 H Blood Pressure Location Rt brachial Lt brachial Position Sitting Sitting Respiration 18 16 Pulse 67 64 Pulse Source Monitor Temp 97.7 F L 97.5 F L Temp Source Oral Oral Pulse Oximetry (%) 97 96 Oxygen Delivery Method room air room air Intake Visit Reasons: 1 M FU Chief Complaint: right breast lift/left skin fold revision post op Is patient in pain?: No Allergies cat dander (cats) Allergy (Mild, Verified 06/02/24 10:47) Other Environmental Allergies: Uncoded (dust) Allergy (Mild, Verified 06/02/24 10:47) Itching Medications ???Medication ???Instructions ???Recorded ???Confirmed ???Type coffee extract 100 mg-phosphatidyl 1 cap PO DAILY 01/20/24 06/02/24 History serine 100 mg capsule (Neuriva Original) ibuprofen 600 mg tablet 600 mg PO Q6H PRN pain 01/20/24 06/02/24 History ksmsdkewidke-Fw-zhuu-mine rals 1 tab PO DAILY 01/20/24 06/02/24 History vitamin C 45 mg-zinc citrate 3.75 1 tab PO DAILY 01/20/24 06/02/24 History mg-elderberry 50 mg chewable tablet ([employer]) calcium 600 mg (as 1 tab PO DAILY 03/02/24 06/02/24 History carbonate)-vitamin D3 5 mcg (200 unit) tablet fluticasone propionate 50 1 spray intranasal BID ALLERGY 03/02/24 06/02/24 History mcg/actuation nasal spray,suspension silver sulfadiazine 1 % topical 1 applic topical DAILY #20 grams 04/21/24 06/02/24 Rx cream (Silvadene) Have you fallen in the past year?: No Nurse's Note: post op , no issues Subjective Details: Cata comes in for recheck of the right breast mastopexy and left breast scar revision. She denies any problems. She has had no further drainage. Objective Details: All the incisions are well-approximated. There is no evidence of infection or drainage. The left lateral chest incision is also healing satisfactorily. She is encouraged to call with any problems otherwise I will see her back as needed. Coding Level of Care Code Global Post Op Diagnoses Status post breast reconstruction Z98.890 History of reduction surgery of right breast Z98.890 [facility] Medical History Wears hearing aid Wears dentures [...] Details Additional Comments: She is to follow-up as needed. 06/02/24 1748 Date Jadyn Chavez MD Cosigner Signature: Date (if applicable) CC: Normal [facility] Plastic Surgery Visit Report on 05-05-2024 Plastic Surgery Visit Report [facility] Plastic Reconstructive Surgery [address], [address] [place] [address] OFFICE VISIT Date of Service: 05/05/24 MR#: [id number] Acct: [id number] Name: BRIGITTE HIGH Rep #: [id number] : 1950 Provider: Dr. Jadyn mccall MD Age/Sex: 73/F Location: [facility] Status: Signed Intake Vital Signs 04/21/24 11:00 05/05/24 11:27 Height 5 ft 5 in Weight: 156 lb 159 lb BMI 25.9 BP 128/80 H 130/78 H Blood Pressure Location Rt brachial Rt brachial Position Sitting Sitting Respiration 18 18 Pulse 67 65 Pulse Source Monitor Monitor Temp 97.7 F L 97.6 F L Temp Source Oral Oral Pulse Oximetry (%) 97 96 Oxygen Delivery Method room air room air Intake Visit Reasons: 2 W FU Chief Complaint: right breast lift/left skin fold revision post op Is patient in pain?: No Allergies cat dander (cats) Allergy (Mild, Verified 05/05/24 11:24) Other Environmental Allergies: Uncoded (dust) Allergy (Mild, Verified 05/05/24 11:24) Itching Medications ???Medication ???Instructions ???Recorded ???Confirmed ???Type coffee extract 100 mg-phosphatidyl 1 cap PO DAILY 01/20/24 05/05/24 History serine 100 mg capsule (Neuriva Original) ibuprofen 600 mg tablet 600 mg PO Q6H PRN pain 01/20/24 04/21/24 History fcgouflpylfk-Gr-rrtt-mine rals 1 tab PO DAILY 01/20/24 05/05/24 History vitamin C 45 mg-zinc citrate 3.75 1 tab PO DAILY 01/20/24 05/05/24 History mg-elderberry 50 mg chewable tablet ([employer]) calcium 600 mg (as 1 tab PO DAILY 03/02/24 05/05/24 History carbonate)-vitamin D3 5 mcg (200 unit) tablet fluticasone propionate 50 1 spray intranasal BID ALLERGY 03/02/24 04/21/24 History mcg/actuation nasal spray,suspension silver sulfadiazine 1 % topical 1 applic topical DAILY #20 grams 04/21/24 05/05/24 Rx cream (Silvadene) Have you fallen in the past year?: No Nurse's Note: post op skin revision and breast lift Subjective Details: Brigitte comes in for recheck of her right breast surgery and left breast reconstruction revision. She states that she still has an open area at the base of the right breast. Objective Details: There is a small opening at the base of the right breast which is smaller and more shallow than at the last appointment. The tract is granulating. The left breast incision is healing satisfactorily. She also states there is a size discrepancy however I indicated that her surgery on the right side just removed skin and did not alter the size of her existing breast. I have asked her to keep the area on the right breast open at night. She can apply Silvadene once a day. She can begin resuming normal activities. I will see her back in a month for recheck. Coding Level of Care Code Global Post Op Diagnoses Delayed wound healing T14.8XXD Status post breast reconstruction Z98.890 [facility] Medical History Wears hearing aid Wears dentures [...] Acute Plan Details Additional Comments: Follow-up in 1 month 05/05/24 1535 Date Jadyn Chavez MD Cosigner Signature: Date (if applicable) CC: Normal [facility] Plastic Surgery Visit Report on 04-21-2024 Plastic Surgery Visit Report [facility] Plastic Reconstructive Surgery [address], [address] [place] [address] OFFICE VISIT Date of Service: 04/21/24 MR#: [id number] Acct: [id number] Name: BRIGITTE HIGH Rep #: [id number] : 1950 Provider: Dr. Jadyn mccall MD Age/Sex: 73/F Location: [facility] Status: Signed Intake Vital Signs 03/31/24 [...] PO Q6H PRN pain 01/20/24 04/21/24 History gyxcdvauzydj-Zw-frsb-mine rals 1 tab PO DAILY 01/20/24 04/21/24 History vitamin C 45 mg-zinc citrate 3.75 1 tab PO DAILY 01/20/24 04/21/24 History mg-elderberry 50 mg chewable tablet ([employer]) calcium carbonate 600 mg-vitamin 1 tab PO [...] healing T14.8XXD Status post breast reconstruction Z98.890 [facility] Medical History Wears hearing aid Wears dentures [...] long ago did patient quit smoking: quit 2016 alcohol intake: current substance use type: does not use additional social history: pt denies vaping, denies marijuana use, denies edibles, denies aspirin use Uses 600 mg ibuprofen Assessment and Plan (No Qualifiers) Assessment and Plan (1) Delayed wound healing: Status: Acute (2) Status post breast reconstruction: Status: Acute Plan Details Additional Comments: Follow-up in 2 weeks 04/21/24 1653 Date Jadyn Chavez MD Cosigner Signature: Date (if applicable) CC: Normal [facility] Plastic Surgery Visit Report on 03-31-2024 Plastic Surgery Visit Report [facility] Plastic Reconstructive Surgery [address], [address] [place] [address] OFFICE VISIT Date of Service: 03/31/24 MR#: [id number] Acct: [id number] Name: BRIGITTE HIGH Rep #: [id number] : 1950 Provider: Dr. Jadyn mccall MD Age/Sex: 73/F Location: [facility] Status: Signed Intake Vital Signs 03/17/24 [...] PO Q6H PRN pain 01/20/24 03/31/24 History bjgbzptawbgw-Ap-zzzb-mine rals 1 tab PO DAILY 01/20/24 03/31/24 History vitamin C 45 mg-zinc citrate 3.75 1 tab PO DAILY 01/20/24 03/31/24 History mg-elderberry 50 mg chewable tablet ([employer]) calcium carbonate 600 mg-vitamin 1 tab PO [...] of reduction surgery of right breast Z98.890 [facility] Medical History Wears hearing aid Wears dentures [...] in 3 weeks. 03/31/24 1646 Date Jadyn Chavez MD Cosign Signature: Date (if applicable) CC: Normal [facility] Reminderson 03-26-2024 Reminders Reminders From: Daniella Green To: EU - Recalls Recinos; Sent: 10/20/2023 15:17:03 EDT Show up: 01/26/2024 15:16:00 EDT Subject: Cysto Due Date/Time: 02/16/2024 15:17:00 EDT Reminder/Recall Patient needs 6 month cysto in 2023. DX; hx urethral lesion l/m on vm.LG Patient called back, sched for 05/03/24 at [facility] Plastic Surgery Visit Report on 03-17-2024 Plastic Surgery Visit Report [facility] Plastic Reconstructive Surgery [address], [address] [place] [address] OFFICE VISIT Date of Service: 03/17/24 MR#: [id number] Acct: [id number] Name: BRIGITTE HIGH Rep #: [id number] : 1950 Provider: Dr. Jadyn mccall MD Age/Sex: 73/F Location: [facility] Status: Signed Intake Vital Signs 01/20/24 [...] PO Q6H PRN pain 01/20/24 03/17/24 History mwxpkcrhdfzv-Aq-mtpv-mine rals 1 tab PO DAILY 01/20/24 03/17/24 History vitamin C 45 mg-zinc citrate 3.75 1 tab PO DAILY 01/20/24 03/17/24 History mg-elderberry 50 mg chewable tablet (Elderberry [employer]) calcium carbonate 600 mg-vitamin 1 tab PO [...] Op Diagnoses Status post breast reconstruction Z98.890 [facility] Medical History Wears hearing aid Wears dentures [...] interim with any questions or problems 03/17/24 7851 Date Jadyn Chavez MD [facility] Signature: Date (if applicable) CC: Normal [facility] Plastic Surgery Visit Report on 03-10-2024 Plastic Surgery Visit Report [facility] Plastic Reconstructive Surgery [address], [address] [place] [address] OFFICE VISIT Date of Service: 03/10/24 MR#: [id number] Acct: [id number] Name: BRIGITTE HIGH Rep #: [id number] : 1950 Provider: Dr. Jadyn mccall MD Age/Sex: 73/F Location: [facility] Status: Signed Intake Vital Signs 01/20/24 [...] PO Q6H PRN pain 01/20/24 03/10/24 History jzkxavjgbmfs-Em-kjyy-mine rals 1 tab PO DAILY 01/20/24 03/10/24 History vitamin C 45 mg-zinc citrate 3.75 1 tab PO DAILY 01/20/24 03/10/24 History mg-elderberry 50 mg chewable tablet ([employer]) calcium carbonate 600 mg-vitamin 1 tab PO [...] Global Post Op Diagnoses Breast asymmetry between onondaga breast and reconstructed breast N65.1 Status post left breast reconstruction Z98.890 History of reduction surgery of right breast Z98.890 [facility] Medical History Wears hearing aid Wears dentures [...] Assessment and Plan (1) Breast asymmetry between onondaga breast and reconstructed breast: Status: Acute (2) Status post left breast reconstruction: Status: Acute (3) History of reduction surgery of right breast: Status: Acute Plan Details Additional Comments: She is to follow-up in 1 week for recheck. She is encouraged to call in the interim with any problems. Her limitations were reviewed with her and her daughter 02/25 (more content not included)... Normal [facility] Discharge Instructionon Discharge Instruction [facility] Medical Records Department [address] [place] [address] Instructions for Home/Discharge Instructions 03/04/24 1123 MR#: [id number] Acct: [id number] Name: BRIGITTE HIGH Rep #: [id number] : 1950 73 From: Jadyn Chavez MD PCP: DOUG Brown Status:REG [facility] Discharge Instructions Dressing / Incision Additional Dressing/Incision [...] Care Provider: Kristyn Dougherty Instructions Print Language: Mauritanian Discharge Orders/Prescriptions Prescriptions: No Action ibuprofen 600 mg tablet 600 mg PO Q6H PRN (Reason: pain) oxqndcwudxru-Ku-lmuy-mine rals Tablet 1 tab PO DAILY Neuriva Original 100-100 mg capsule 1 cap PO DAILY Elderberry [employer] 45-3.75-50 mg tablet,chewable 1 tab PO [...] can be placed): Home, Self Care 03/04/24 1124 Jadyn Chavez MD CC: INTERNATIONAL STUDENT COUNSELOR-C Kristyn Dougherty Signed Normal [facility] Discharge Instruction [facility] Medical Records Department [address] [place] [address] Instructions for Home/Discharge Instructions 03/04/24 1121 MR#: [id number] Acct: [id number] Name: BRIGITTE HIGH Rep #: [id number] : 1950 73 From: Jadyn Chavez MD PCP: DOUG Brown Status:DEP [facility] Discharge Instructions Dressing / Incision Additional Dressing/Incision [...] Care Provider: Kristyn Dougherty Instructions Print Language: Mauritanian Discharge Orders/Prescriptions Prescriptions: No Action ibuprofen 600 mg tablet 600 mg PO Q6H PRN (Reason: pain) lmupjgaztugj-No-gwml-mine rals Tablet 1 tab PO DAILY Neuriva Original 100-100 mg capsule 1 cap PO DAILY [employer] 45-3.75-50 mg tablet,chewable 1 tab PO [...] Care 03/04/24 1333 Jadyn Chavez MD CC: DOUG Dougherty Signed [facility] MR/POSTOP.ANEon 03-04-2024 MR/POSTOP.[facility] Medical Records Department [address] [place] [address] Anesthesia Postop Eval I 03/04/24 1122 MR#: [id number] Acct: [id number] Name: BRIGITTE HIGH Rep #: [id number] : 1950 73 From: Hyun Hernandez PCP: DOUG Brown Status:REG SDC Y Race: C Location: [place] [address] Anesthesia: Postop Eval I Current Vital Signs [...] 1 completed: Yes 03/04/24 1233 Date Hyun Houston Signature: Date CC: Signed [facility] MR/JIFQZYZW8jo 03-04-2024 MR/POSTOPAN2 [facility] Medical Records Department [address] [place] [address] Anesthesia Postop Eval II 03/04/24 1146 MR#: [id number] Acct: [id number] Name: BRIGITTE HIGH Rep #: [id number] : 1950 73 From: Julito Domingo MD PCP: DOUG Brown Status:[facility] Y Race: C Location: [place] [address] Anesthesia Postop Eval I Sum Anesthesia Postop [...] 1146 Date Julito Domingo MD Cosigner Signature: Date CC: Signed Normal [facility] Operative Reporton 4 Operative Report [facility] Medical Records Department [address] [place] [address] Operative Report 03/04/24 1124 MR#: [id number] Acct: [id number] Name: BRIGITTE HIGH Rep #: [id number] : 1950 73 From: Jadyn Chavez MD PCP: DOUG Brown Status:[facility] Location: [facility] Report of Operation Date of Procedure: 03/04/24 Pre-Operative Diagnosis: Asymmetry between the right onondaga breast and the left reconstructed breast; Right [...] clips. This is further reinforced with some sewbfw-na-etvob Vicryl sutures. The skin edges were then [...] Documentation VTE Mechan Device Prophylaxis: SCD's 03/04/24 3814 Cosigner Signature (if applicable): CC: DOUG Dougherty; Dr. Jadyn Chavez MD Signed Normal [facility] Surgery Specimen Level Franky 03-04-2024 Surgery Specimen Level IV Patient Age/Sex Location Account Attending Physician BRIGITTE HIGH 73/F [facility] [id number] Dr. Jadyn Chavez MD Specimen: [id number] Received: 03/04/24 Status: MEHREEN Maude Num: [id number] Spec Type: Lesion Subm Dr: Dr. Jadyn Chavez MD HEADER OPERATION: Right breast lift and revision left breast reconstruction PRE-OP DIAGNOSIS: Breast asymmetry between onondaga breast and reconstructed breast, painful periwound skin, ptosis of right breast, status post left breast reconstruction, history of breast cancer in adulthood TISSUE SUBMITTED: Right breast tissue and skin MICROSCOPIC DIAGNOSIS Right breast tissue and skin, revision left breast reconstruction: Skin with underlying tissue and scant fragments of benign breast tissue, no pathologic diagnosis. / 03/05/2024 MICROSCOPIC DESCRIPTION Slides are reviewed. GROSS [...] Sections do not reveal any mass lesions. Managed Care Coordinator sections are submitted in two cassettes. / 03/04/2024 TC:4 CPT:15163 Patient Age/Sex Location Account Attending Physician BRIGITTE HIGH 73/F [facility] [id number] Dr. Jadyn Chavez MD Signed (signature on file) Dr. Cy Sandhu MD 03/05/24 1101 Normal [facility] Comment on above: Performed By: #### P SUIV ####[facility] [address] [place], [place], [id number] Basic Metabolic Profile (BMP )on 02-18-2024 BUN/CRE 32.4 RATIO High 10-20 [facility] Comment on above: Order Comment: pre s urgery testing Performed By: #### L 300.4310, L500.2500, L300.3900, L100.0500 ####[facility] [address] [place], [address] CA,Total 9.3 mg/dL Normal 8.5-10.1 [facility] Comment on above: Order Comment: pre s urgery testing Performed By: #### L 300.4310, L500.2500, L300.3900, L100.0500 ####[facility] [address] [place], [address] Chloride [Moles/Vol] 109 mmol/L High 98-107 [facility] Comment on above: Order Comment: pre s urgery testing Performed By: #### L 300.4310, L500.2500, L300.3900, L100.0500 ####[facility] [address] [place], [address] CO2 [Moles/Vol] 23.0 mmol/L Normal 21.0-32.0 [facility] Comment on above: Order Comment: pre s urgery testing Performed By: #### L 300.4310, L500.2500, L300.3900, L100.0500 ####[facility] [address] [place], [address] Creatinine [Mass/Vol] 0.68 mg/dL Normal 0.55-1.02 [facility] Comment on above: Order Comment: pre s urgery testing Result Comment: The validity of the calculated GFR GFRAA in patients over 70 years has not been determined. Clinical correlation is essential. Performed By: #### L 300.4310, L500.2500, L300.3900, L100.0500 ####[facility] [address] [place], [address] EST GFR - AA 109 mL/min Normal >60 [facility] Comment on above: Order Comment: pre s urgery testing Result Comment: Afri can [place] GFR Calc Performed By: #### L 300.4310, L500.2500, L300.3900, L100.0500 ####[facility] [address] [place], [address] GAP 6 Normal 5-15 [facility] Comment on above: Order Comment: pre s urgery testing Performed By: #### L 300.4310, L500.2500, L300.3900, L100.0500 ####[facility] [address] [place], [address] GFR/1.73 sq M.predicted among non-blacks MDRD (S/P/Bld) [Vol rate/Area] 90 mL/min/{1.73_m2} Normal >60 [facility] Comment on above: Order Comment: pre s urgery testing Result Comment: Non- GFR Calc Performed By: #### L 300.4310, L500.2500, L300.3900, L100.0500 ####[facility] [address] [place], [address] Glucose [Mass/Vol] 104 mg/dL Normal 74-106 [facility] Comment on above: Order Comment: pre s urgery testing Result Comment: Fast ing Glucose result from 100 to 125 mg/dL suggests IMPAIRED HOMEOSTASIS per A.D.A. criteria. Performed By: #### L 300.4310, L500.2500, L300.3900, L100.0500 ####[facility] [address] [place], [address] Potassium [Moles/Vol] 4.2 mmol/L Normal 3.5-5.1 [facility] Comment on above: Order Comment: pre s urgery testing Performed By: #### L 300.4310, L500.2500, L300.3900, L100.0500 ####[facility] [address] [place], [address] Sodium [Moles/Vol] 138 mmol/L Normal 136-145 [facility] Comment on above: Order Comment: pre s urgery testing Performed By: #### L 300.4310, L500.2500, L300.3900, L100.0500 ####[facility] [address] [place], [address] Urea nitrogen [Mass/Vol] 22 mg/dL High 7-18 [facility] Comment on above: Order Comment: pre s urgery testing Performed By: #### L 300.4310, L500.2500, L300.3900, L100.0500 ####[facility] [address] [place], [address] CBC-Complete Blood Cnt No Di ffon 02-18-2024 Erythrocyte distribution width (RBC) [Ratio] 13.8 % Normal 11.6-14.6 [facility] Comment on above: Order Comment: Ester nts: pre surgery testing Performed By: #### L 300.4310, L500.2500, L300.3900, L100.0500 ####[facility] [address] [place], [address] Hematocrit (Bld) [Volume fraction] 41.3 % Normal 37-47 [facility] Comment on above: Order Comment: Ester nts: pre surgery testing Performed By: #### L 300.4310, L500.2500, L300.3900, L100.0500 ####[facility] [address] [place], [address] Hemoglobin (Bld) [Mass/Vol] 13.4 g/dL Normal 12.0-15.0 [facility] Comment on above: Order Comment: Ester nts: pre surgery testing Performed By: #### L 300.4310, L500.2500, L300.3900, L100.0500 ####[facility] [address] [place], [address] MCH (RBC) [Entitic mass] 30.4 pg Normal 27.0-32.0 [facility] Comment on above: Order Comment: Ester nts: pre surgery testing Performed By: #### L 300.4310, L500.2500, L300.3900, L100.0500 ####[facility] [address] [place], [address] MCHC (RBC) [Mass/Vol] 32.4 g/dL Normal 32-36 [facility] Comment on above: Order Comment: Ester nts: pre surgery testing Performed By: #### L 300.4310, L500.2500, L300.3900, L100.0500 ####[facility] [address] [place], [address] MCV (RBC) [Entitic vol] 93.7 fL Normal 81-99 [facility] Comment on above: Order Comment: Comme nts: pre surgery testing Performed By: #### L 300.4310, L500.2500, L300.3900, L100.0500 ####[facility] [address] [place], [address] Platelet mean volume (Bld) [Entitic vol] 9.4 fL Normal 6.2-12.0 [facility] Comment on above: Order Comment: Comme nts: pre surgery testing Performed By: #### L 300.4310, L500.2500, L300.3900, L100.0500 ####[facility] [address] [place], [address] Platelets (Bld) [#/Vol] 268 10*3/uL Normal 150-450 [facility] Comment on above: Order Comment: Commmanuel nts: pre surgery testing Performed By: #### L 300.4310, L500.2500, L300.3900, L100.0500 ####[facility] [address] [place], [address] RBC (Bld) [#/Vol] 4.41 10*6/uL Normal 4.2-5.4 [facility] Comment on above: Order Comment: Commmanuel nts: pre surgery testing Performed By: #### L 300.4310, L500.2500, L300.3900, L100.0500 ####[facility] [address] [place], [address] RDW SD 47.8 fl High 35.1-43.9 [facility] Comment on above: Order Comment: Ester nts: pre surgery testing Performed By: #### L 300.4310, L500.2500, L300.3900, L100.0500 ####[facility] [address] [place], [address] WBC (Bld) [#/Vol] 6.6 10*3/uL Normal 4.4-11.0 [facility] Comment on above: Order Comment: Comme nts: pre surgery testing Performed By: #### L 300.4310, L500.2500, L300.3900, L100.0500 ####[facility] [address] [place], [address] Partial Thromboplast Timeon 02-18-2024 aPTT Coag (Bld) [Time] 27.0 s Normal 24.1-36.2 [facility] Comment on above: Order Comment: Comme nts: pre surgery testing Performed By: #### L 300.4310, L500.2500, L300.3900, L100.0500 ####[facility] [address] [place], [place], [address] Plastic Surgery Visit Report on 02-18-2024 Plastic Surgery Visit Report [facility] Plastic Reconstructive Surgery [address], [address] [place] [address] OFFICE VISIT Date of Service: 02/18/24 MR#: [id number] Acct: [id number] Name: BRIGITTE HIGH Rep #: [id number] : 1950 Provider: Dr. Jadyn mccall MD Age/Sex: 73/F Location: [facility] Status: Signed Intake Vital Signs 01/20/24 [...] mg PO Q6H PRN 01/20/24 02/18/24 History zqzrtzlhkqtq-Ma-vyst-mine rals tab PO 01/20/24 02/18/24 History vitamin C 45 mg-zinc citrate 3.75 tab PO 01/20/24 02/18/24 History mg-elderberry 50 mg chewable tablet ([employer]) coffee extract 100 mg-phosphatidyl cap PO 02/04/24 02/18/24 History serine 100 mg capsule (Neuriva Original) xeamypaonj-TC-ypklbiqfmja en 6.25 ml PO 02/04/24 02/18/24 History [...] long ago did patient quit smoking: quit 2016 alcohol intake: current substance use type: does [...] the appointmen (more content not included)... Normal [facility] Prothrombin Time w/INRon INR Coag (PPP) [Relative time] 1.1 {INR} Normal [facility] Comment on above: Order Comment: Comme nts: pre surgery testing Performed By: #### L 300.4310, L500.2500, L300.3900, L100.0500 ####[facility] [address] [place], [place], [id number] PT Coag (PPP) [Time] 13.8 s Normal 11.7-14.9 [facility] Comment on above: Order Comment: Comme nts: pre surgery testing Performed By: #### L 300.4310, L500.2500, L300.3900, L100.0500 ####[facility] [address] [place], [address] Plastic Surgery Visit Report on 02-04-2024 Plastic Surgery Visit Report [facility] Plastic Reconstructive Surgery [address], [address] [place], [place] [address] OFFICE VISIT Date of Service: 02/04/24 MR#: [id number] Acct: [id number] Name: BRIGITTE HIGH Rep #: [id number] : 1950 Provider: Dr. Jadyn mccall MD Age/Sex: 73/F Location: [facility] Status: Signed Intake Vital Signs 01/20/24 [...] mg PO Q6H PRN 01/20/24 02/04/24 History pyertcxoueij-Eu-jzfb-mine rals tab PO 01/20/24 02/04/24 History vitamin C 45 mg-zinc citrate 3.75 tab PO 01/20/24 02/04/24 History mg-elderberry 50 mg chewable tablet ([employer]) coffee extract 100 mg-phosphatidyl cap PO 02/04/24 02/04/24 History serine 100 mg capsule (Neuriva Original) grevwpmbzw-GI-ullarknurfm en 6.25 ml PO 02/04/24 02/04/24 History [...] right breast lift/left revision skin fold Details: Caridad comes in for further discussion regarding the [...] 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 I [...] Painful periwound skin R23.8 Breast asymmetry between [place] breast and reconstructed breast N65.1 Ptosis of right breast N64.81 Status post left br (more content not included)... Normal [facility] Plastic Surgery Visit Report on 01-20-2024 Plastic Surgery Visit Report [facility] Plastic Reconstructive Surgery [address], [address] [place] [address] OFFICE VISIT Date of Service: 01/20/24 MR#: [id number] Acct: [id number] Name: BRIGITTE HIGH Rep #: [id number] : 1950 Provider: Dr. Jadyn mccall MD Age/Sex: 73/F Location: [facility] Status: Signed Intake Vital Signs 01/20/24 [...] mg PO Q6H PRN 01/20/24 01/20/24 History clcoymvriasq-Qt-cwvc-mine rals tab PO 01/20/24 01/20/24 History vitamin C 45 mg-zinc citrate 3.75 tab PO 01/20/24 01/20/24 History mg-elderberry 50 mg chewable tablet ([employer]) Have you fallen in the past year?: [...] had to have an implant replacement in 2000 for leaking implant. She believes her implants are saline. She also had a latissimus flap done at the time of her mastectomy. She had her initial surgery at [facility] and the second surgery at [facility]. She has a history of nicotine [...] has ptos (more content not included)... Normal [facility] C Urineon 11-06-2023 Bacteria identified Cx Nom (U) Microbiology PROCEDURE: Urine Culture [R1] SOURCE: U Random BODY SITE: COLLECTED DATE/TIME: 11/04/2023 14:56 EDT RECEIVED DATE/TIME: 11/04/2023 20:15 EDT START DATE/TIME: 11/04/2023 20:15 EDT FREE TEXT SOURCE: JORJE FIGUEROA, Star RCEINOS MD, Star Villavicencio FINAL REPORTS Final Report [...] Locations R1: This test was performed at: [facility], [address] [place] [address], [address] , [place], Normal [facility] Comment on above: Performed By: #### 2 [id number] ####[facility] [address] [place] [address] Pathology Noteon 11-05-2023 Pathology Note [id number]#1.00TIFF Normal [facility] Pathology Noteon 10-23-2023 Pathology Note [id number]#1.00TIFF Normal [facility] Pathology Noteon 10-21-2023 Pathology Note [id number]#1.00TIFF Normal [facility] Pathology Note [id number]#1.00TIFF Normal [facility] Pathology Noteon 10-20-2023 Pathology Note [id number]#1.00TIFF Normal [facility] Pathology Noteon 10-17-2023 Pathology Note [id number]#1.00TIFF Normal [facility] Pathology Note [id number]#1.00TIFF Normal [facility] Pathology Noteon 10-08-2023 Pathology Note [id number]#1.00TIFF Normal [facility] SURGICAL PATHOLOGY REFERENCE LAB CONSULTon 10-08-2023 CASE REPORT Normal [facility] Comment on above: Order Comment: Speci men Type: FORMALIN-FIXED PARAFFIN-EMBEDDED TISSUE SPECIMEN Ordering Facility: [facility] Address: [address] [place] [phone] Result Comment: Surg ical Pathology Report Case: [id number] Authorizing Provider: Star Recinos MD Collected: 10/08/2023 07:46 PM [facility] Received: 10/08/2023 07:45 PM [facility] Laboratory Pathologist: Hema Ho MD Specimen: SLIDE(S), 4 SLIDES ([id number]) Performed By: #### L [id number] #### [facility] CLIA [id number] [address] [place] [address] OF THE [facility] CLINICAL HISTORY CONSULT REQUESTED [facility] Comment on above: Order Comment: Speci men Type: FORMALIN-FIXED PARAFFIN-EMBEDDED TISSUE SPECIMEN Ordering Facility: [facility] Address: [address] [place], [place] [phone] Performed By: #### L [id number] #### [facility] CLIA [id number] [address] [place] [address] DIAGNOSIS COMMENT Normal [facility] Comment on above: Order Comment: Speci men Type: FORMALIN-FIXED PARAFFIN-EMBEDDED TISSUE SPECIMEN Ordering Facility: [facility] Address: [address] [place] [address] Result Comment: No i nvasive component is found in the sample examined. P16 immunostain performed at the referring institution is diffusely/strongly positive. Further, high-risk HPV CISH performed at the [facility] is positive. Laboratory Developed Test (LDT) Disclaimer: Performance characteristics of immunohistochemical, immunofluorescent and chromogenic in-situ hybridization tests have been determined by the performing laboratory within [facility]???s Silvio Martinez Pathology and Laboratory Medicine [place] ([facility], [facility], [facility], [facility], [facility], [facility], or [facility]) in a manner consistent with CLIA requirements. One or more of these tests have not been cleared or approved by the FDA. [facility] is regulated under CLIA as qualified to perform high-complexity testing. These tests are used for clinical purposes. They should not be regarded as investigational or for research. Positive and negative controls stain appropriately. Performed By: #### L [id number] #### [facility] CLIA [id number] [address] [place] [address] FINAL DIAGNOSIS Normal [facility] Comment on above: Order Comment: Speci men Type: FORMALIN-FIXED PARAFFIN-EMBEDDED TISSUE SPECIMEN Ordering Facility: [facility] Address: [address] [place], [place] [phone] Result Comment: A. U rethral mass, excision: ([id number], 09/25/2023) - High-grade squamous intraepithelial lesion (see comment). Performed By: #### L [id number] #### [facility] CLIA [id number] [address] [place] [address] [place] FINAL PERFORMING LAB Normal [facility] Comment on above: Order Comment: Speci men Type: FORMALIN-FIXED PARAFFIN-EMBEDDED TISSUE SPECIMEN Ordering Facility: [facility] Address: [address] [place], [place] [phone] Result Comment: Diag nostic interpretation performed at [facility], [address] [place] [address] CLIA# [id number] Personnel Analyst: Eleazar Sutherland M.D. Performed By: #### L [id number] #### [facility] CLIA [id number] [address] [place] [address] [place] Patient Educationon 10-06-19 Patient [...] provider. Document Revised: 11/22/2021 Document Reviewed: 11/22/2021 [employer] Patient Education ? 2022 enosiX. [facility] Urology Office/Clinic Noteon 10-06-2023 Urology Office/Clinic [...] caruncle. Pt states she is going to [place] in November. 1. Urethral caruncle (N36.2: Urethral [...] Urology [address], [place] [phone] Additional Instructions: toro call pt to review updated path Patient Education Kegel Exercises I, Pari Anton, personally scribed for Dr. Recinos on 10/06/2023 17:16:07. . Documentation recorded by the scribePari, accurately reflects the services(s) I performed and [...] No. Wilma (more content not included)... Normal [facility] Comment on above: Result Comment: Elec tronically Signed By: JORJE FIGUEROA, Star Villavicencio\.br\Date and Time Signed: 10/06/23 17:17 EDT\.br\Electronically Co-Signed By: Pari Anton\.br\Date and Time Co-Signed: 10/06/23 17:16 EDT Pathology Noteon 10-02-2023 Pathology Note [id number]#1.00TIFF Normal [facility] Fabian 09-25-2023 L Specimen: [id number] Received: 09/26/23 Status: SOURyann Req Num: [id number] Spec Type: Surgical Subm Dr: Star Recinos MD Tissues: A Urethra Biopsy (URETHRAL MASS) Procedures: HE/2, Gross/Micro L4, Ki-67, CINtec p16, IHC First AB Age/ Patient Sex Location Account Attending Physician Brigitte High 72/F LABELL [id number] Star Recinos MD SPEC NUM: [id number] RECD: 09/26/23 STATUS: MEHREEN TAVAREZ NUM: [id number] CRESCENCIO: 09/25/23 DR: Star Recinos MD ENTERED: 09/26/[address] [facility] [address]: SPEC TYPE: Surgical DEPT: HONG GARCIA ORDERED: HE/2, Gross/Micro L4, Ki-67, CINtec p16, IHC First AB ORDERED: HE/2, Gross/Micro L4, Ki-67, CINtec p16, IHC First AB, IMMUNOHISTOCHEM Supplemental Report Addendum 2 Entered: 10/20/23 Supplemental for findings of consultation report from [facility]: -No discrepancy between the diagnosis of the original report and the findings of consultation report from [facility] -Please also see the first supplemental report issued below Addendum Signed (signature on file) Rocío Horvath MD 10/20/23 743 Addendum 1 Entered: 10/16/23143 Urethral mass, excision: ? High-grade squamous intraepithelial lesion. ? Comment: This specimen was reviewed by Dr. Hema Ho at the [facility], who rendered the diagnosis above. She noted that no invasive carcinoma is present in the sample examined. P16 immunostain performed at the referring institution is diffusely/strongly positive. Further, high-risk HPV CISH performed at the [facility] is positive. Specimen: [id number] Received: 09/26/23 Status: MEHREEN Tavarez Num: [id number] Spec Type: Surgical Subm Dr: Star Recinos MD Tissues: A Urethra Biopsy (URETHRAL MASS) Procedures: HE/2, Gross/Micro L4, Ki-67, CINtec p16, IHC First AB Patient: Jody Highie [id number] (Continued) Specimen: [id number] Received: 09/26/23 (Continued) Supplemental Report (Continued) Signed (signature on file) Lou Horvath MD 09/29/23 1838 Specimen: [id number] Received: 09/26/23 Status: MEHREEN Tavarez Num: [id number] Spec Type: Surgical Subm Dr: Star Recinos MD Tissues: A Urethra Biopsy (URETHRAL MASS) Procedures: HE/2, Gross/Micro L4, Ki-67, CINtec p16, IHC First AB Patient: Caridad Highmarie [id number] (Continued) Specimen: [id number] Received: 09/26/23 (Continued) Supplemental Report (Continued) Addendum Signed (signature [...] in one cassette labeled A1. CPT Codes 86602 13139, 86534 Specimen: [id number] Received: 09/26/23 Status: MEHREEN Tavarez Num: [id number] Spec Type: Surgical Subm Dr: Star Recinos MD Tissues: A Urethra Biopsy (URETHRAL MASS) Procedures: HE/2, Gross/Micro L4, Ki-67, CINte p16, IHC First AB Patient: Brigitte High [id number] (Continued) Signed (signature on file)___ (more content not included)... [facility] Operative Reporton 4 Operative Report [id number]#1.00TIFF [facility] Provider Letteron 09-16-2023 Provider Letter (Inserted Image. Laura ble to display) September 16, 2023 BRIGITTEIBRAHIMA VIERASANDEEP [address] [place] [id number] : 1950 To Whom It May Concern, Please excuse above patient from work. Date of Illness: From: 09/25/2023 To: 10/09/2023 May Return to Work On:10/10/2023 Restrictions: N/A Comments: Patient is having a surgical procedure done 09/25/23, and may return to work on 10/10/23 without restrictions. Sincerely, [facility] Daniel 04-02-2023 CNPN Telephone (PLASAV) ----- BRIGITTE HIGH ([id number]) 1950 F Date Time Provider Department 04/02/23 Lawrence MEDINA During your visit today, we recorded the following information about you: Kyra Page, RN 04/02/2023 7:41 AM Signed Brigitte called; [...] Encounter Status:Closed by KYRA PAGE on 04/02/23 [facility] BEBETOOVgloria 03-28-2023 CNOV Office Visit (PLASAM ) ----- BRIGITTE HIGH ([id number]) 1950 F Date Time Provider Department 03/28/23 [...] Hx of asthma, cough, wheezing No HPI: Brgiitte High is a 72 year old with [...] Encounter Status:Closed by Lawrence MEDINA on 03/28/23 Normal [facility] MRI BREAST WO IVCON BILon MRI BREAST WO IVCON CHRIS * * *Final Report* * * DATE OF EXAM: Mar 25 2023 2:01PM [facility] 0699 - MRI BREAST WO IVCON CHRIS / PROCEDURE REASON: History of breast cancer * * * * Physician Interpretation * * * * #[id number] - MRI BREAST WO IVCON CHRIS BREAST [...] does not evaluate for breast cancer. Marva pérez/renato:03/26/2023 11:11:18 Fruit Farmer(s): RT Jennifer(R), [facility] MRI BI-RADS: n/a Multiple national specialty organizations have released breast cancer screening guidelines for women at average risk for developing breast cancer - guidelines that are based on both evidence and opinion, yet differ on when to start and how often to screen for breast cancer. With representation from Breast Imaging, Internal Medicine, Women's Health, Family Medicine, and Medical/Surgical Oncology, the [facility] has carefully reviewed the data and reached [...] their providers when to stop screening mammograms. Kalsominer: Renato Transcribe Date/Time: Mar 25 2023 1:29P Dictated by : MARVA BONILLA MD This examination was interpreted and the report reviewed and electronically signed by: MARVA BONILLA MD on Mar 26 2023 11:11AM EST [id number] Normal [facility] Established Visit (Orthopaed ic Surgery)on 02-11-2023 Established Visit (Orthopaedic Surgery) Diagnoses/Problems Assessed Patella fracture (822.0) (S82.009A) Orders Patella fracture Xray Knee 3 View; Status:Resulted - Preliminary,Retrospective Authorization; Done: [id number] 10:14AM Laterality : Left Radiologist to Determine [...] History Problems History of Cataract surgery bilateral 2015 History of Hysterectomy total 1981 - due [...] (V15.82) (Z87 (more content not included)... Normal [facility] KNEE 3 VIEWSon 02-11-2023 KNEE 3 VIEWS Patient Name: BRIGITTE HIGH STUDY: KNEE; 3 VIEWS; Left; 02/11/2023 10:14 am INDICATION: . S82.009A: Patella fracture. ACCESSION NUMBER(S): [id number] ORDERING CLINICIAN: SANDRA TAYLOR FINDINGS: Left knee films show transverse patellar fracture to stable in satisfactory position. There is filling in at the fracture site. There is moderate degenerative change seen in the medial and lateral compartments of the knee. There is also moderate degenerative change seen in the patellofemoral joint Electronically signed by: SANDRA TAYLOR MD Normal [facility] Radiologyon 02-11-2023 XR Knee 3 Views [facility] Work Phone: Clinic Note - Heme Onc Sched ulingon 01-20-2023 Clinic Note - Heme Onc Scheduling Retrieve Patient Instructions: Patient Instructions: Patient Instructions: RetrievePatient Instructions Instructions Printed Schedule End of Visit Documentation: Clinic Location/Phone Number: Clinic Location/Phone Number: [address] [address] End Of Visit MU Report Item: Visit Summary given or mailed to patientyes Mailed Appointments Electronic Signatures: Fatimah Melendez (Rev Cycl Spec) (Signed 20-Jan-2023 09:06) Authored: Retrieve Patient Instructions, End of Visit Documentation Last Updated: 20-Jan-2023 09:06 by Fatimah Melendez (Rev Cycl Spec) Normal [facility] CA27.29on 01-18-2023 CA27.29 53.0 U/mL High 0.0 - 38.6 [facility] Comment on above: Result Comment: CA 2 7.29 testing is performed by chemiluminescent immunoassay using the Siemens Atellica. Values obtained with different analytic methods cannot [...] decisions. Performed By: #### C 2729 #### [facility] [address] [place] [address] CA27.29 (CA15-3)on 3 Cancer Ag 27-29 Qn 53.0 [arb'U]/mL above high threshold 0.0 - 38.6 -[facility] Work Phone: Comment on above: CA 27.29 testing is performed by chemiluminescent immunoassay using the Siemens Atellica. Values obtained with different analytic methods cannot [...] Patient is a transfer her care from [facility]. Dr. Jing Campbell is her PCP. The patient is transferring her medical oncology care here, after having been cared for by Dr. Aleyda Richardson. Her Juan Sheffield was a patient of our practice and in early 2017. Last reported mammogram 06/05/2016 done in [place]. She has history of left sided breast [...] 2009, and a repeat EGD done in 2016, which showed normal findings. For her osteoporosis, [...] margin, lymphovascular invasion not definite; ER neg, CA neg, MKK2yjc neg. The patient does not recall what [...] and chest xray to be done at [facility] this upcoming Friday. She also happens [...] now due to intolerable waits at the [place] office. 12/27/2019: Here for annual visit in the setting of history of breast cancer. Her most recent mammogram done on December 30 2018 and that was negative. 12/26/2020 here for interval followup; looking forward to going back to [place] in near future 01/18/2022 here for interval followup; has no complaints 01/17/2023 here for interval followup; now living in [facility] PAST MEDICAL HISTORY: History of sleep [...] Eyes, Itching, (more content not included)... Normal [facility] Clinic Note - Intakeon 01-17 [...] and Clinician Awareno Electronic Signatures: Iona Ríos II) (Signed 17-Jan-2023 13:29) Authored: Patient Visit Information, Vital Signs, Allergies, Outpatient Medication Profile, Notification, Travel History, Falls Last Updated: 17-Jan-2023 13:29 by Iona Ríos (DAMION II) Normal [facility] BILATERAL KNEE 1 OR 2 VIEWSo n 01-07-2023 BILATERAL KNEE 1 OR 2 VIEWS Patient Name: BRIGITTE HIGH STUDY: BILATERAL KNEE; 1 OR 2 VIEWS; Left; 01/07/2023 9:57 am INDICATION: FX S82.009A: Patella fracture. ACCESSION NUMBER(S): [id number] ORDERING CLINICIAN: SANDRA TAYLOR FINDINGS: Bilateral knee films show on the right no fracture, dislocation or destructive lesion. There is mild to moderate degenerative change seen. The left knee patellar fracture is in stable position. It is nondisplaced. There is some filling in at the fracture site. Electronically signed by: SANDRA TAYLOR MD Normal [facility] Established Visit (Orthopaed ic Surgery)on [...] Status: Hold For - Scheduling Requested for: 07Jan2023 Chief Complaint F/U Subacute left patella fracture [...] History o (more content not included)... Normal [place] Established Visit (Orthopaed ic Surgery)on 12-10-2022 Established Visit (Orthopaedic Surgery) Diagnoses/Problems Assessed Other closed fracture of patella, unspecified laterality, initial encounter (822.0) (S82.759U) Chief Complaint Left knee pain Patient to bring xray disc History of Present Illness History of Present Illness This is a 72-year-old female here for. She was in [place] when she fell and landed on both knees. She has swelling and pain initially. Her pain did improve some. She never sought medical attention. She had knee pain. She had persistent pain and went to a hospital back in [place] and had x-rays. 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 Normal [facility] US THYROIDon 10-18-2022 US THYROID EXAMINATION: [...] LUPIS OZUNA Date: 2022-10-18 14:45 Normal [facility] INSULINon 08-19-2022 Insulin 4.6 uIU/mL Normal 2.6-24.9 [facility] Comment on above: Performed By: #### I NSULIN #### [facility] [address] [place] [address] Dr. Destini Horvath XR RIBS LT PA [...] ILDEFONSO HO Date: 2022-08-19 06:59 Normal [facility] CBC AUTO DIFFon 08-17-2022 BASO # 0.1 103/ul Normal 0.0-0.1 [facility] Comment on above: Performed By: #### C BC #### [facility] [address] [address] [address] Destini Horvath Basophils/100 WBC (Bld) 1.1 % Normal 0.2-2.0 [facility] Comment on above: Performed By: #### C BC #### [facility] [address] [address] [address] Destini Horvath EO # 0.2 103/ul Normal 0.0-0.7 [facility] Comment on above: Performed By: #### C BC #### [facility] [address] [address] [address] Destini Horvath Eosinophils/100 WBC (Bld) 2.9 % Normal 0.9-7.0 [facility] Comment on above: Performed By: #### C BC #### [facility] [address] [address] [address] Destini Horvath Erythrocyte distribution width (RBC) [Ratio] 13.4 % Normal 11.0-15.0 [facility] Comment on above: Performed By: #### C BC #### [facility] [address] [address] [address] Destini Horvath Hematocrit (Bld) [Volume fraction] 35.2 % Critically low 36.0-48.0 [facility] Comment on above: Performed By: #### C BC #### [facility] [address] [address] [address] Destini Horvath Hemoglobin (Bld) [Mass/Vol] 12.4 g/dL Normal 12.0-16.0 [facility] Comment on above: Performed By: #### C BC #### [facility] [address] [place] [address] Dr. Destini Horvath IG # 0.01 10e3/ul Normal 0.00-0.03 [facility] Comment on above: Performed By: #### C BC #### [facility] [address] [place] [address] Dr. Destini Horvath IG % 0.2 % Normal 0.0-0.5 [facility] Comment on above: Performed By: #### C BC #### [facility] [address] [place] [address] Dr. Destini Horvath LYMPH # 2.5 103/ul Normal 1.2-3.8 [facility] Comment on above: Performed By: #### C BC #### [facility] [address] [place] [address] Dr. Destini Horvath Lymphocytes/100 WBC (Bld) 45.6 % Normal 20.5-60.0 [facility] Comment on above: Performed By: #### C BC #### [facility] [address] [place] [address] Dr. Destini Horvath MANUAL DIFF REQ NO Normal [facility] Comment on above: Performed By: #### C BC #### [facility] [address] [place] [address] Dr. Destini Horvath MCH (RBC) [Entitic mass] 30.1 pg Normal 26.7-34.0 [facility] Comment on above: Performed By: #### C BC #### [facility] [address] [place] [address] Dr. Destini Horvath MCHC (RBC) [Mass/Vol] 35.2 g/dL Normal 29.9-35.2 [facility] Comment on above: Performed By: #### C BC #### [facility] [address] [place] [address] Dr. Destini Horvath MCV (RBC) [Entitic vol] 85.4 fL Normal 81.0-99.0 [facility] Comment on above: Performed By: #### C BC #### [facility] [address] [place] [address] Dr. Destini Horvath MONO # 0.5 103/ul Normal 0.3-0.8 [facility] Comment on above: Performed By: #### C BC #### [facility] [address] [address] [address] Destini Horvath Monocytes/100 WBC (Bld) 8.3 % Normal 1.7-12.0 [facility] Comment on above: Performed By: #### C BC #### [facility] [address] [place] [address] Dr. Destini Horvath NEUT # 2.3 103/ul Normal 1.4-6.5 [facility] Comment on above: Performed By: #### C BC #### [facility] [address] [place] [address] Dr. Destini Horvath Neutrophils/100 WBC (Bld) 41.9 % Critically low 43.0-75.0 [facility] Comment on above: Performed By: #### C BC #### [facility] [address] [place] [address] Dr. Destini Horvath Platelet mean volume (Bld) [Entitic vol] 9.6 fL Normal 9.5-13.5 [facility] Comment on above: Performed By: #### C BC #### [facility] [address] [place] [address] Dr. Destini Horvath PLT 262 103/ul Normal 150-450 [facility] Comment on above: Performed By: #### C BC #### [facility] [address] [place] [address] Dr. Destini Horvath RBC 4.12 106/ul Critically low 4.20-5.40 [facility] Comment on above: Performed By: #### C BC #### [facility] [address] [place] [address] Dr. Destiin Horvath WBC 5.6 103/ul Normal 4.0-11.0 [facility] Comment on above: Performed By: #### C BC #### [facility] [address] [address] [address] Destini Horvath FREE THYROXINE INDEX T7on FTI 2.14 Normal 1.30-4.50 [facility] Comment on above: Performed By: #### T SH, LIPID, CMP, T7 #### [facility] [address] [address] [address] Destini Horvath T3U 34.0 % Normal 30.0-39.0 [facility] Comment on above: Performed By: #### T SH, LIPID, CMP, T7 #### [facility] [address] [address] [address] Destini Horvath T4 [Mass/Vol] 6.30 ug/dL Normal 4.80-13.90 [facility] Comment on above: Performed By: #### T SH, LIPID, CMP, T7 #### [facility] [address] [place] [address] Dr. Destini Horvath GLYCOHEMOGLOBIN A1Con 2022 ADA RECOMMENDATION SEE BELOW Normal [facility] Comment on above: Result Comment: ADA RECOMMENDED LIMIT 4.0 - 6.0 ADA THERAPEUTIC TARGET < 7.0 ACTION SUGGESTED > 7.0 Performed By: #### U RCX #### [facility] [address] [place] [address] Dr. Destini Horvath Glucose [Mass/Vol] 117 mg/dL Normal [facility] Comment on above: Performed By: #### U RCX #### [facility] [address] [place] [address] Dr. Destini Horvath HbA1c (Bld) [Mass fraction] 5.7 % Normal 4.5-6.2 [facility] Comment on above: Performed By: #### U RCX #### [facility] [address] [place] [address] Dr. Destini Horvath IRONon 08-17-2022 Iron [Mass/Vol] 39.0 ug/dL Critically low 50.0-170.0 [facility] Comment on above: Performed By: #### U RCX #### [facility] [address] [place] [address] Dr. Destini Horvath LIPID PROFILEon 08-17-2022 CHOL-HDL RATIO NORM SEE BELOW Normal [facility] Comment on above: Result Comment: 3.3 - 4.4 LOW RISK 4.4 - 7.1 AVERAGE RISK 7.1 - 11.0 MODERATE RISK >11.0 HIGH RISK Performed By: #### T SH, LIPID, CMP, T7 #### [facility] [address] [address] [address] Destini Horvath Cholesterol [Mass/Vol] 191 mg/dL Normal <=200 [facility] Comment on above: Performed By: #### T SH, LIPID, CMP, T7 #### [facility] [address] [address] [address] Destini Horvath Cholesterol in HDL [Mass/Vol] 109 mg/dL Critically high 40-60 [facility] Comment on above: Performed By: #### T SH, LIPID, CMP, T7 #### [facility] [address] [address] [address] Destini Horvath Cholesterol in LDL [Mass/Vol] 69.2 mg/dL Normal [facility] Comment on above: Performed By: #### T SH, LIPID, CMP, T7 #### [facility] [address] [address] [address] Destini Horvath Cholesterol.total/ Cholesterol in HDL [Mass ratio] 1.8 {ratio} Normal [facility] Comment on above: Performed By: #### T SH, LIPID, CMP, T7 #### [facility] [address] [address] [address] Destini Horvath HDL NORMAL > or = 60 mg/dl - LO W CARDIOVASCULAR RISK <40 mg/dl - HIGH CARDIOVASCULAR RISK Normal [facility] Comment on above: Performed By: #### T SH, LIPID, CMP, T7 #### [facility] [address] [place] [address] Dr. Destini Horvath LDL CALC NORMAL SEE BELOW Normal [facility] Comment on above: Result Comment: <100 mg/dl OPTIMAL 100 - 129 mg/dl NEAR OR ABOVE OPTIMAL 130 - 159 mg/dl BORDERLINE HIGH 160 - 189 mg/dl HIGH >190 mg/dl VERY HIGH Performed By: #### T SH, LIPID, CMP, T7 #### [facility] [address] [address] [address] Destini Horvath Triglyceride [Mass/Vol] 64 mg/dL Normal <=150 [facility] Comment on above: Performed By: #### T SH, LIPID, CMP, T7 #### [facility] [address] [address] [address] Destini Horvath VLDL CALC 12.8 mg/dL Normal [facility] Comment on above: Performed By: #### T SH, LIPID, CMP, T7 #### [facility] [address] [place] [address] Dr. Destini Horvath PROF 14(COMP METB)on 023 Albumin [Mass/Vol] 3.6 g/dL Normal 3.4-5.0 [facility] Comment on above: Performed By: #### T SH, LIPID, CMP, T7 #### [facility] [address] [place] [address] Dr. Destini Horvath Albumin/Globulin [Mass ratio] 1.0 {ratio} Normal [facility] Comment on above: Performed By: #### T SH, LIPID, CMP, T7 #### [facility] [address] [place] [address] Dr. Destini Horvath ALP [Catalytic activity/Vol] 101 U/L Normal 46-116 [facility] Comment on above: Performed By: #### T SH, LIPID, CMP, T7 #### [facility] [address] [place] [address] Dr. Destini Horvath ALT [Catalytic activity/Vol] 27 U/L Normal 14-59 [facility] Comment on above: Performed By: #### T SH, LIPID, CMP, T7 #### [facility] [address] [place] [address] Dr. Destini Horvath Anion gap [Moles/Vol] 15.0 mmol/L Normal [facility] Comment on above: Performed By: #### T SH, LIPID, CMP, T7 #### [facility] [address] [place] [address] Dr. Destini Horvath AST [Catalytic activity/Vol] 22 U/L Normal 15-37 [facility] Comment on above: Performed By: #### T SH, LIPID, CMP, T7 #### [facility] [address] [address] [address] Destini Horvath Bilirubin [Mass/Vol] 0.3 mg/dL Normal 0.2-1.0 [facility] Comment on above: Performed By: #### T SH, LIPID, CMP, T7 #### [facility] [address] [address] [address] Destini Horvath Calcium [Mass/Vol] 9.2 mg/dL Normal 8.5-10.1 [facility] Comment on above: Performed By: #### T SH, LIPID, CMP, T7 #### [facility] [address] [place] [address] Dr. Destini Horvath Chloride [Moles/Vol] 108 mmol/L Critically high 98-107 [facility] Comment on above: Performed By: #### T SH, LIPID, CMP, T7 #### [facility] [address] [place] [address] Dr. Destini Horvath CO2 [Moles/Vol] 23.7 mmol/L Normal 21.0-32.0 [facility] Comment on above: Performed By: #### T SH, LIPID, CMP, T7 #### [facility] [address] [place] [address] Dr. Destini Horvath Creatinine [Mass/Vol] 0.59 mg/dL Normal 0.55-1.02 [facility] Comment on above: Performed By: #### T SH, LIPID, CMP, T7 #### [facility] [address] [place] [address] Dr. Destini Horvath EGFR-AF ALGERIAN >60 Normal >=60 [facility] Comment on above: Performed By: #### T SH, LIPID, CMP, T7 #### [facility] [address] [place] [address] Dr. Destini Horvath EGFR-NON AF ALGERIAN >60 Normal >=60 [facility] Comment on above: Performed By: #### T SH, LIPID, CMP, T7 #### [facility] [address] [address] [address] Destini Horvath Globulin (S) [Mass/Vol] 3.7 g/dL Normal [facility] Comment on above: Performed By: #### T SH, LIPID, CMP, T7 #### [facility] [address] [address] [address] Destini Horvath Glucose [Mass/Vol] 91 mg/dL Normal 74-106 [facility] Comment on above: Performed By: #### T SH, LIPID, CMP, T7 #### [facility] [address] [address] [address] Destini Horvath Potassium [Moles/Vol] 3.7 mmol/L Normal 3.5-5.1 [facility] Comment on above: Performed By: #### T SH, LIPID, CMP, T7 #### [facility] [address] [place] [address] Dr. Destini Horvath Protein [Mass/Vol] 7.3 g/dL Normal 6.4-8.2 [facility] Comment on above: Performed By: #### T SH, LIPID, CMP, T7 #### [facility] [address] [address] [address] Destini Horvath Sodium [Moles/Vol] 143 mmol/L Normal 136-145 [facility] Comment on above: Performed By: #### T SH, LIPID, CMP, T7 #### [facility] [address] [address] [address] Destini Horvath Urea nitrogen [Mass/Vol] 17.0 mg/dL Normal 7.0-18.0 [facility] Comment on above: Performed By: #### T SH, LIPID, CMP, T7 #### [facility] [address] [address] [address] Destini Horvath Urea nitrogen/Creatinin e [Mass ratio] 28.8 mg/mg Normal [facility] Comment on above: Performed By: #### T SH, LIPID, CMP, T7 #### [facility] [address] [address] [address] Destini Horvath TSHon 08-17-2022 TSH 2.888 uIU/mL Normal 0.358-3.740 [facility] Comment on above: Performed By: #### T SH, LIPID, CMP, T7 #### [facility] [address] [place] [address] [id number] [address] Destini Horvath Covid-19 PCR ([facility])on SARS-CoV-2 (COVID-19) RNA MARY+probe Ql (Unsp spec) Not detected Normal NOT DETECTED [facility] Comment on above: Result Comment: When [...] for this test is supported by the Assistant Art Director of Health and Human Service's declaration that [...] used). Performed By: #### C VDTBH #### [facility] [address] [place] [address] Dr. Destini Horvath INFLUENZA A AND B AGon 07-05 [facility] SEE BELOW Normal [facility] Comment on above: Result Comment: Nega tive for Flu A protein angiten. Infection due to Flu A cannot be ruled out. Flu A angiten in the sample may be below the detection limit of the test. Performed By: #### U RCX #### [facility] [address] [place] [address] Dr. Destini Horvath INFLUBNEG SEE BELOW Normal [facility] Comment on above: Result Comment: Nega tive for Flu B protein antigen. Infection due to Flu B cannot be ruled out. Flu B antigen in the sample may be below the detection limit of the test. Performed By: #### U RCX #### [facility] [address] [place] [address] Dr. Destini Horvath INFLUENZA A AG Negative Normal NEGATIVE SEE COMMENT [facility] Comment on above: Performed By: #### U RCX #### [facility] [address] [address] [address] Destini Horvath INFLUENZA B AG Negative Normal NEGATIVE SEE COMMENT [facility] Comment on above: Performed By: #### U RCX #### [facility] [address] [place] [address] Dr. Destini Horvath INTERNAL CONTROLS Within Normal Limits Normal Wi thin Normal Limits [facility] Comment on above: Performed By: #### U RCX #### [facility] [address] [place] [address] Dr. Destini Horvath CULTURE URINEon 06-30-2022 CULTURE [...] Trimethoprim/Sulfamethoxa zole <=20 S F Normal [facility] Comment on above: Performed By: #### U RCX #### [facility] [address] [place] [address] Dr. Destini Horvath UA RANDOM W/MICROSCOPICon BACTERIA LARGE Abnormal NONE SEEN [facility] Comment on above: Performed By: #### U RCX #### [facility] [address] [place] [address] Dr. Destini Horvath Bilirubin Ql (U) Negative Normal NEGATIVE [facility] Comment on above: Performed By: #### U RCX #### [facility] [address] [address] [address] Destini Horvath CAST NONE SEEN Normal NONE SEEN [facility] Comment on above: Performed By: #### U RCX #### [facility] [address] [address] [address] Destini Horvath Clarity (U) SL CLOUDY Abnormal CLEAR [facility] Comment on above: Performed By: #### U RCX #### [facility] [address] [address] [address] Destini Horvath Color (U) LT. YELLOW Normal YELLOW [facility] Comment on above: Performed By: #### U RCX #### [facility] [address] [place] [address] Dr. Destini Horvath Crystals LM Nom (Urine sed) NONE SEEN Normal NONE SEEN [facility] Comment on above: Performed By: #### U RCX #### [facility] [address] [place] [address] Dr. Destini Horvath Epithelial cells LM Ql (Urine sed) FEW Abnormal NONE SEEN /RARE [facility] Comment on above: Performed By: #### U RCX #### [facility] [address] [place] [address] Dr. Destini Horvath Glucose Ql (U) Negative Normal NEGATIVE [facility] Comment on above: Performed By: #### U RCX #### [facility] [address] [place] [address] Dr. Destini Horvath Hemoglobin Ql (U) TRACE-INTACT Abnormal NEGATIVE [facility] Comment on above: Performed By: #### U RCX #### [facility] [address] [place] [address] Dr. Destini Horvath Ketones Ql (U) Negative Normal NEGATIVE [facility] Comment on above: Performed By: #### U RCX #### [facility] [address] [place] [address] Dr. Destini Horvath LEUKOCYTES MODERATE Abnormal NEGATIVE [facility] Comment on above: Performed By: #### U RCX #### [facility] [address] [place] [address] Dr. Destini Horvath MUCOUS NONE SEEN Normal NONE SEEN [facility] Comment on above: Performed By: #### U RCX #### [facility] [address] [place] [address] Dr. Destini Horvath Nitrite Ql (U) Negative Normal NEGATIVE [facility] Comment on above: Performed By: #### U RCX #### [facility] [address] [place] [address] Dr. Destini Horvath pH (U) 5.5 [pH] Normal 5-9 [facility] Comment on above: Performed By: #### U RCX #### [facility] [address] [place] [address] Dr. Destini Horvath RBC 2-5 Abnormal 0-2 [facility] Comment on above: Performed By: #### U RCX #### [facility] [address] [place] [address] Dr. Destini Horvath SPEC GRAVITY 1.015 Normal 1.005-<=1.02 5 [facility] Comment on above: Performed By: #### U RCX #### [facility] [address] [place] [address] Dr. Destini Horvath UA PROTEIN Negative Normal NEGATIVE/ TRACE [facility] Comment on above: Performed By: #### U RCX #### [facility] [address] [place] [address] Dr. Destini Horvath Urobilinogen Qn (U) 0.2 {Abner'U}/dL Normal 0.2 - 1.0 [facility] Comment on above: Performed By: #### U RCX #### [facility] [address] [place] [address] Dr. Destini Horvath WBC (U) [#/Vol] /uL Abnormal NONE SEEN [facility] Comment on above: Performed By: #### U RCX #### [facility] [address] [place] [address] Dr. Destini Horvath CBCon 04-29-2022 Erythrocyte distribution width (RBC) [Ratio] 14.0 % Normal 11.5 - 14.5 [facility] Comment on above: Performed By: #### C BC #### [address] [id number] Hematocrit (Bld) [Volume fraction] 41.0 % Normal 36.0 - 46.0 [facility] Comment on above: Performed By: #### C BC #### [address] [id number] Hemoglobin (Bld) [Mass/Vol] 12.9 g/dL Normal 12.0 - 16.0 [facility] Comment on above: Performed By: #### C BC #### [address] [id number] MCHC (RBC) [Mass/Vol] 31.5 g/dL Low 32.0 - 36.0 [facility] Comment on above: Performed By: #### C BC #### [address] [id number] MCV (RBC) [Entitic vol] 97 fL Normal 80 - 100 [facility] Comment on above: Performed By: #### C BC #### [address] [id number] Platelets (Bld) [#/Vol] 268 10*3/uL Normal 150 - 450 [facility] Comment on above: Performed By: #### C BC #### [address] [id number] RBC 4.24 x10E12/L Normal 4.00 - 5.20 [facility] Comment on above: Performed By: #### C BC #### [address] [id number] WBC (Bld) [#/Vol] 6.0 10*3/uL Normal 4.4 - 11.3 [facility] Comment on above: Performed By: #### C BC #### [address] [id number] COMPREHENSIVE PANELon 2021 Albumin [Mass/Vol] 4.2 g/dL Normal 3.4 - 5.0 [facility] Comment on above: Performed By: #### C MP #### [address] [id number] ALP [Catalytic activity/Vol] 71 U/L Normal 33 - 136 [facility] Comment on above: Performed By: #### C MP #### [address] [id number] ALT [Catalytic activity/Vol] 23 U/L Normal 7 - 45 [facility] Comment on above: Result Comment: Luanne ents treated with Sulfasalazine may generate falsely decreased results for ALT. Performed By: #### C MP #### [address] [id number] Anion gap [Moles/Vol] 13 mmol/L Normal 10 - 20 [facility] Comment on above: Performed By: #### C MP #### [address] [id number] AST [Catalytic activity/Vol] 24 U/L Normal 9 - 39 [facility] Comment on above: Performed By: #### C MP #### [address] [id number] Bilirubin [Mass/Vol] 0.4 mg/dL Normal 0.0 - 1.2 [facility] Comment on above: Performed By: #### C MP #### [address] [id number] Calcium [Mass/Vol] 9.4 mg/dL Normal 8.6 - 10.3 [facility] Comment on above: Performed By: #### C MP #### [address] [id number] Chloride [Moles/Vol] 106 mmol/L Normal 98 - 107 [facility] Comment on above: Performed By: #### C MP #### [address] [id number] Creatinine [Mass/Vol] 0.69 mg/dL Normal 0.50 - 1.05 [facility] Comment on above: Performed By: #### C MP #### [address] [id number] eGFR FEMALE >90 Normal >90 [facility] Comment on above: Result Comment: CALC ULATIONS OF ESTIMATED GFR ARE PERFORMED USING THE 2020 CKD-EPI STUDY REFIT EQUATION WITHOUT THE RACE VARIABLE FOR THE IDMS-TRACEABLE CREATININE METHODS. https://jasn.asnjournals.org/content//ASN.092130103 8 Performed By: #### C MP #### [address] [id number] Glucose [Mass/Vol] 79 mg/dL Normal 74 - 99 [facility] Comment on above: Performed By: #### C MP #### [address] [id number] HCO3 (Bld) [Moles/Vol] 25 mmol/L Normal 21 - 32 [facility] Comment on above: Performed By: #### C MP #### [address] [id number] Potassium [Moles/Vol] 4.1 mmol/L Normal 3.5 - 5.3 [facility] Comment on above: Performed By: #### C MP #### [address] [id number] Protein [Mass/Vol] 7.4 g/dL Normal 6.4 - 8.2 [facility] Comment on above: Performed By: #### C MP #### [address] [id number] Sodium [Moles/Vol] 140 mmol/L Normal 136 - 145 [facility] Comment on above: Performed By: #### C MP #### [address] [id number] Urea nitrogen [Mass/Vol] 12 mg/dL Normal 6 - 23 [facility] Comment on above: Performed By: #### C MP #### [address] [id number] LIPID PANEL (CORONARY RISK 2 )on 04-29-2022 Cholesterol [Mass/Vol] 198 mg/dL Normal 0 - 199 [facility] Comment on above: Result Comment: [...] dosing. Performed By: #### L IPID #### [address] [id number] Cholesterol in HDL [Mass/Vol] 89.0 mg/dL Normal [facility] Comment on above: Result Comment: . AGE VERY LOW LOW NORMAL HIGH 0-19 Y < 35 < 40 40-45 ---- 20-24 Y ---- < 40 >45 ---- >24 Y ---- < 40 40-60 >60 . Performed By: #### L IPID #### [address] [id number] Cholesterol in LDL [Mass/Vol] 87 mg/dL Normal 0 - 99 [facility] Comment on above: Result Comment: . NEAR BORD AGE DESIRABLE OPTIMAL HIGH HIGH VERY HIGH 0-19 Y 0 - 109 --- 110-129 >/= 130 ---- 20-24 Y 0 - 119 --- 120-159 >/= 160 ---- >24 Y 0 - 99 100-129 130-159 160-189 >/=190 . Performed By: #### L IPID #### [address] [id number] Cholesterol in VLDL [Mass/Vol] 22 mg/dL Normal 0 - 40 [facility] Comment on above: Performed By: #### L IPID #### [address] [id number] Cholesterol.total/ Cholesterol in HDL [Mass ratio] 2.2 {ratio} Normal [facility] Comment on above: Result Comment: REF VALUES DESIRABLE < 3.4 HIGH RISK > 5.0 Performed By: #### L IPID #### [address] [id number] Triglyceride [Mass/Vol] 109 mg/dL Normal 0 - 149 [facility] Comment on above: Result Comment: [...] dosing. Performed By: #### L IPID #### [address] [id number] Laboratory - Chemistry and C hemistry - challengeon 04-29-2022 Albumin BCP dye [Mass/Vol] 4.2 g/dL 3.4 - 5.0 RG-EMMU-Wayn [id number] Work Phone: ALP [Catalytic activity/Vol] 71 U/L 33 - 136 VB-MKGK-Krqt [id number] Work Phone: ALT With P-5'-P [Catalytic activity/Vol] 23 U/L 7 - 45 CP-EWQM-Xzxo 2535A Work Phone: Comment on above: Patients treated wit h Sulfasalazine may generate falsely decreased results for ALT. Anion gap [Moles/Vol] 13 mmol/L 10 - 20 XJ-GBVS-Oxym 2535A Work Phone: AST With P-5'-P [Catalytic activity/Vol] 24 U/L 9 - 39 MA-HQTK-Aiug 2535A Work Phone: Bilirubin [Mass/Vol] 0.4 mg/dL 0.0 - 1.2 JE-CURD-Quaj 2535A Work Phone: Calcium [Mass/Vol] 9.4 mg/dL 8.6 - 10.3 MP-WSP C-Laila Cantrell Work Phone: Chloride [Moles/Vol] 106 mmol/L 98 - 107 HM-CUXY-Fmtw 2535A Work Phone: CO2 [Moles/Vol] 25 mmol/L 21 - 32 MP-WSPC-A onel Tovar Work Phone: Creatinine [Mass/Vol] 0.69 mg/dL See Below TC-XCYT-Fgrt 2535A Work Phone: Comment on above: Reference Range: 0.5 0 - 1.05 Glucose [Mass/Vol] 79 mg/dL 74 - 99 MP-WSP C-Laila Cantrell Work Phone: Potassium [Moles/Vol] 4.1 mmol/L 3.5 - 5.3 BP-AYUC-Bhsg 2535A Work Phone: Protein [Mass/Vol] 7.4 g/dL 6.4 - 8.2 MP-WSP C-Laila Tovar Work Phone: Sodium [Moles/Vol] 140 mmol/L 136 - 145 MP-WSP C-Lailagloria Tovar Work Phone: Urea nitrogen [Mass/Vol] 12 mg/dL 6 - 23 AQ-IEMK-Popk Guy Work Phone: Laboratory - Hematology and Cell countson 04-29-2022 Erythrocyte distribution width (RBC) [Ratio] 14.0 % See Below AX-GZGS-Wwqx Óscar5A Work Phone: Comment on above: Reference Range: 11. 5 - 14.5 Hematocrit (Bld) [Volume fraction] 41.0 % See Below CC-KOBR-Nrzw Guy Work Phone: Comment on above: Reference Range: 36. 0 - 46.0 Hemoglobin (Bld) [Mass/Vol] 12.9 g/dL See Below YZ-JNMG-Nnaw 2537S Work Phone: Comment on above: Reference Range: 12. 0 - 16.0 MCHC (RBC) [Mass/Vol] 31.5 g/dL below low threshold See Below WO-IQQM-Mhus 2537Z Work Phone: Comment on above: Reference Range: 32. 0 - 36.0 MCV (RBC) [Entitic vol] 97 fL 80 - 100 ZJ-BQBX-Rxuk 2538U Work Phone: Platelets (Bld) [#/Vol] 268 10*3/uL 150 - 450 NI-BIDX-Yazu 4D Work Phone: RBC (Bld) [#/Vol] 4.24 {x10E12/L} See Below MP -WSPC-Laila 2539Z Work Phone: Comment on above: Reference Range: 4.0 0 - 5.20 WBC (Bld) [#/Vol] 6.0 10*3/uL 4.4 - 11.3 MP-WSP C-Laila 5538N Work Phone: Lipid Panelon 04-29-2022 Cholesterol [Mass/Vol] 198 mg/dL 0 - 199 TW-AVBM-Mbai WILEX9R Work Phone: Comment on above: . AGE [...] dosing. Cholesterol in HDL [Mass/Vol] 89.0 mg/dL GD-OOCT-Booi WILEX6G Work Phone: Comment on above: . AGE VERY LOW LOW N ORMAL HIGH 0-19 Y < 35 < 40 40-45 ---- 20- 24 Y ---- < 40 >45 ---- >24 Y ---- < 40 40-60 >60. Cholesterol in LDL [Mass/Vol] 87 mg/dL 0 - 99 ZL-CORT-Ramn WILEX9V Work Phone: Comment on above: . NEAR BORD AGE CHERRIE RABLE OPTIMAL HIGH HIGH VERY HIGH 0-19 Y 0 - 109 --- 110-129 >/= 130 ---- 20-24 Y 0 - 119 --- 120-159 >/= 160 ---- >24 Y 0 - 99 100-129 130-159 160-189 >/=190. Cholesterol.total/ Cholesterol in HDL [Mass ratio] 2.2 {ratio} OZ-TUUY-Ufqq 2535A Work Phone: Comment on above: REF VALUESDESIRABLE < 3.4HIGH RISK > 5.0 Triglyceride [Mass/Vol] 109 mg/dL 0 - 149 AE-BCJX-Roxg 2530V Work Phone: Comment on above: . AGE [...] Lipid Panel 22 mg/dL 0 - 40 JM-FZJA-Mimw WILEX2I Work Phone: Medicare Annual Wellness Vis iton [...] Communication Devices: performs independently. Falls Risk Screening:. BRIIGTTE has fallen in the last 6 months. [...] Touchworks No Panel Informationon 04-29 >90 >90 CZ-XJGJ-Vepm 2535A Work Phone: Comment on above: CALCULATIONS OF RYAN MATED GFR ARE PERFORMED USING THE 2020 CKD-EPI STUDY REFIT EQUATION WITHOUT THE RACE VARIABLE FOR THE IDMS-TRACEABLE CREATININE METHODS.https://jasn.asnjournals.org/content//ASN.2 514030683 TSHon 04-29-2022 TSH Qn 1.70 m[IU]/L Normal 0.44 - 3.98 [facility] Comment on above: Result Comment: TSH testing is performed using different testing methodology at [facility] than at other [facility]. Direct result comparisons should only be made within the same method. Performed By: #### T SH2 ####[address] [place], [place] [id number] TSH - Thyroid Stimulating Ho rmone, Serumon 04-29-2022 TSH Qn 1.70 m[IU]/L See Below RE-VGTL-Ekbu 2535Y Work Phone: Comment on above: Reference Range: 0.4 4 - 3.98 TSH testing is performed using different testing methodology at [facility] than at [facility]. Direct result comparisons should only be made within the same method. Tobacco Screening.on 022 Adult depression screening assessment No TL-EXOD-Iiyf 2535A Work Phone: Fall risk assessment b) One or more falls in the last year LU-VQAL-Jsht 2535A Work Phone: Tobacco use status CPHS b) No PW-XWNR-Zdgb 2535A Work Phone: VITAMIN B12on 04-29-2022 Cobalamin (Vitamin B12) [Mass/Vol] 417 pg/mL Normal 211 - 911 [facility] Comment on above: Performed By: #### V TB12 ####[address] [place], [place] [id number] VITAMIN D, 25-HYDROXYon VITAMIN D, 25-HYDROXY 31 ng/mL Normal [facility] Comment on above: Result Comment: . DEFICIENCY: < 20 NG/ML INSUFFICIENCY: 20-29 NG/ML SUFFICIENCY: 30-100 NG/ML THIS ASSAY ACCURATELY QUANTIFIES THE SUM OF VITAMIN D3, 25-HYDROXY AND VIT D2,25-HYDROXY. Performed By: #### V TDOH #### [address] [id number] Vitamin B12, Serumon 022 Cobalamin (Vitamin B12) [Mass/Vol] 417 pg/mL 211 - 911 SV-PNOG-Ovqt 5346E Work Phone: Vitamin D 25-Hydroxyon 04-29 25-hydroxyvitamin D3 [Mass/Vol] 31 ng/mL ED-QATF-Jjuc 1839Y Work Phone: Comment on above: .DEFICIENCY: < 20 NG /MLINSUFFICIENCY: 20-29 NG/MLSUFFICIENCY: 30-100 NG/MLTHIS ASSAY ACCURATELY QUANTIFIES THE SUM OFVITAMIN D3, 25-HYDROXY AND VIT D2,25-HYDROXY. BASIC METABOLIC PANELon 03-28 Anion gap [Moles/Vol] 15 mmol/L Normal 10 - 20 [facility] Comment on above: Performed By: #### B MP #### [address] [id number] Calcium [Mass/Vol] 9.6 mg/dL Normal 8.6 - 10.3 [facility] Comment on above: Performed By: #### B MP #### [address] [id number] Chloride [Moles/Vol] 106 mmol/L Normal 98 - 107 [facility] Comment on above: Performed By: #### B MP #### [address] [id number] Creatinine [Mass/Vol] 0.80 mg/dL Normal 0.50 - 1.05 [facility] Comment on above: Performed By: #### B MP #### [address] [id number] GFR/1.73 sq M.predicted among non-blacks MDRD (S/P/Bld) [Vol rate/Area] 78 mL/min/{1.73_m2} Normal >90 [facility] Comment on above: Result Comment: CALC ULATIONS OF ESTIMATED GFR ARE PERFORMED USING THE 2020 CKD-EPI STUDY REFIT EQUATION WITHOUT THE RACE VARIABLE FOR THE IDMS-TRACEABLE CREATININE METHODS. https://jasn.asnjournals.org/content/early//ASN.697804513 8 Performed By: #### B MP #### [address] [id number] Glucose [Mass/Vol] 67 mg/dL Low 74 - 99 [facility] Comment on above: Performed By: #### B MP #### [address] [phone] HCO3 (Bld) [Moles/Vol] 22 mmol/L Normal 21 - 32 [facility] Comment on above: Performed By: #### B MP #### [address] [id number] Potassium [Moles/Vol] 3.6 mmol/L Normal 3.5 - 5.3 [facility] Comment on above: Performed By: #### B MP #### [address] [id number] Sodium [Moles/Vol] 139 mmol/L Normal 136 - 145 [facility] Comment on above: Performed By: #### B MP #### [address] [id number] Urea nitrogen [Mass/Vol] 17 mg/dL Normal 6 - 23 [facility] Comment on above: Performed By: #### B MP #### [address] [id number] CBCon 04-12-2022 Erythrocyte distribution width (RBC) [Ratio] 13.8 % Normal 11.5 - 14.5 [facility] Comment on above: Performed By: #### C BC #### [address] [id number] Hematocrit (Bld) [Volume fraction] 41.1 % Normal 36.0 - 46.0 [facility] Comment on above: Performed By: #### C BC #### [address] [id number] Hemoglobin (Bld) [Mass/Vol] 13.0 g/dL Normal 12.0 - 16.0 [facility] Comment on above: Performed By: #### C BC #### [address] [id number] MCHC (RBC) [Mass/Vol] 31.6 g/dL Low 32.0 - 36.0 [facility] Comment on above: Performed By: #### C BC #### [address] [id number] MCV (RBC) [Entitic vol] 97 fL Normal 80 - 100 [facility] Comment on above: Performed By: #### C BC #### [address] [id number] Platelets (Bld) [#/Vol] 287 10*3/uL Normal 150 - 450 [facility] Comment on above: Performed By: #### C BC #### [address] [id number] RBC 4.24 x10E12/L Normal 4.00 - 5.20 [facility] Comment on above: Performed By: #### C BC #### [address] [id number] WBC (Bld) [#/Vol] 5.9 10*3/uL Normal 4.4 - 11.3 [facility] Comment on above: Performed By: #### C BC #### [address] [phone] Laboratory - Chemistry and C hemistry - challengeon 04-12-2022 Anion gap [Moles/Vol] 15 mmol/L 10 - 20 HY-IQMF-Qggq 2535A Work Phone: Calcium [Mass/Vol] 9.6 mg/dL 8.6 - 10.3 MP-WSP C-Laila Tovar Work Phone: Chloride [Moles/Vol] 106 mmol/L 98 - 107 WN-JSCS-Zfbp 2535A Work Phone: CO2 [Moles/Vol] 22 mmol/L 21 - 32 MP-WSPC-A onel Tovar Work Phone: Creatinine [Mass/Vol] 0.80 mg/dL See Below RO-XNCA-Pnzf 2535A Work Phone: Comment on above: Reference Range: 0.5 0 - 1.05 Glucose [Mass/Vol] 67 mg/dL below low threshold 74 - 99 RG-CAPA-Vhaj 2535A Work Phone: Potassium [Moles/Vol] 3.6 mmol/L 3.5 - 5.3 DD-RPRA-Upuu 2535A Work Phone: Sodium [Moles/Vol] 139 mmol/L 136 - 145 MP-WSP Zaheer-Laila Tovar Work Phone: Urea nitrogen [Mass/Vol] 17 mg/dL 6 - 23 XU-MGIN-Qvpj 2535A Work Phone: Laboratory - Hematology and Cell countson 04-12-2022 Erythrocyte distribution width (RBC) [Ratio] 13.8 % See Below YL-ZVFY-Uskj 2535A Work Phone: Comment on above: Reference Range: 11. 5 - 14.5 Hematocrit (Bld) [Volume fraction] 41.1 % See Below IG-VNAL-Xcnf 2535A Work Phone: Comment on above: Reference Range: 36. 0 - 46.0 Hemoglobin (Bld) [Mass/Vol] 13.0 g/dL See Below PL-VHLO-Ouey 2535A Work Phone: Comment on above: Reference Range: 12. 0 - 16.0 MCHC (RBC) [Mass/Vol] 31.6 g/dL below low threshold See Below BO-HCRL-Mtmf 2535A Work Phone: Comment on above: Reference Range: 32. 0 - 36.0 MCV (RBC) [Entitic vol] 97 fL 80 - 100 MA-NKDI-Gvgt 2535A Work Phone: Platelets (Bld) [#/Vol] 287 10*3/uL 150 - 450 RS-LOOG-Ewpj 2535A Work Phone: RBC (Bld) [#/Vol] 4.24 {x10E12/L} See Below MP -WSPC-Watkins 2535A Work Phone: Comment on above: Reference Range: 4.0 0 - 5.20 WBC (Bld) [#/Vol] 5.9 10*3/uL 4.4 - 11.3 MP-WSP C-Watkins 2533O Work Phone: No Panel Informationon 04-12 78 {mL/min/1.73m2} >90 MP-WSP C-Watkins 2535A Work Phone: Comment on above: CALCULATIONS OF RYAN MATED GFR ARE PERFORMED USING THE 2020 CKD-EPI STUDY REFIT EQUATION WITHOUT THE RACE VARIABLE FOR THE IDMS-TRACEABLE CREATININE METHODS.https://jasn.asnjournals.org/content//ASN.2 320586042 Office Visit (Primary Care T xt/Forms)on 04-12-2022 Follow-up visit Diagnoses/Problems Assessed Encounter for immunization (V03.89) (Z23) Finger swelling (729.81) (M79.89) Orders Encounter for immunization Administered: Fluzone High-Dose Quadrivalent 0.7 ML Intramuscular Suspension Prefilled Syringe Finger swelling Start: methylPREDNISolone 4 MG Oral Tablet Therapy Pack (Medrol); USE DIRECTED Basic Metabolic Panel; Status:Complete; Done: [id number] 12:16PM Complete Blood Count; Status:Complete; Done: 74Ayz5236 12:16PM Sedimentation Rate, Erythrocyte; Status:Complete; Done: 99Cmy8163 12:16PM Uric Acid, Serum; Status:Complete; Done: 57Efh0610 12:16PM Xray Finger(s) Min 2 View; Status:Hold For - Scheduling; Requested for:[id number]; Laterality : Left Radiologist to Determine Optimal [...] tabs PO QHS. Vitamin D 50 MCG (1999 UT) Oral TabletTAKE 1 CAPSULE BY MOUTH DAILY. Allergies Medication Codeine Derivatives Tylenol NonMedication Redkey mold Mold Vitals Vital Signs Recorded: 20Mpt3261 11:45AM Temperature: 98.2 F Heart Rate: 72 Respiration: 18 Systolic: 126 Diastolic: 80 Weight: 167 lb (more content not included)... Normal Touchworks SEDIMENTATION RATE, ERYTHROC YTEon 04-12-2022 SEDIMENTATION RATE, ERYTHROCYTE 9 mm/h Normal 0 - 30 [facility] Comment on above: Result Comment: Karis tatum note new reference ranges as of 12/03/2021. Ran on alternate instrument Reference Ranges: Males: 0-15 Females: 0-20 Children under 18: 0-10 Performed By: #### E [facility] #### [address] [id number] Sedimentation Rate, Erythroc yteon 04-12-2022 ESR (Bld) [Velocity] 9 mm/h 0 - 30 RI-JSPU-Gnly 4596V Work Phone: Comment on above: Please note new refe rence ranges as of 12/03/2021.Ran on alternate instrumentReference Ranges: Males: 0-15 Females: 0-20 Children under 18: 0-10 Tobacco Screening.on 022 Fall risk assessment b) One or more falls in the last year JE-BBNO-Oyfr 2536U Work Phone: Tobacco use status CP b) No FM-PWGP-Nibj 2535A Work Phone: URIC ACIDon 04-12-2022 Urate [Mass/Vol] 4.2 mg/dL Normal 2.3 - 6.7 [facility] Comment on above: Result Comment: Rachael puncture immediately after or during the administration of Metamizole may lead to falsely low results. Testing should be performed immediately prior to Metamizole dosing. Performed By: #### U AILYN #### [address] [id number] Uric Acid, Serumon Urate [Mass/Vol] 4.2 mg/dL 2.3 - 6.7 MP-WSPC- Watkins 5336H Work Phone: Comment on above: Venipuncture immedia tely after or during the administration of Metamizole may lead to falsely low results. Testing should be performed immediately prior to Metamizole dosing. DIGITAL MAMM SCREENING W/ TO Taylor 11-20-2021 DIGITAL MAMM SCREENING W/ CLAUDIA Patient Name: BRIGITTE HIGH STUDY: DIGITAL MAMM SCREENING W/ CLAUDIA; 11/20/2021 12:37 pm ACCESSION NUMBER(S): [id number] ORDERING CLINICIAN: JING CAMPBELL INDICATION: Right breast [...] any future breast imaging appointments, please call [phone]). Electronically signed by: BUCK HIGUERA MD Normal [facility] Mamm - Screening Mammogram w / Tomosynthesison 11-20-2021 MG Breast Screening Normal [facility] Work Phone: No Panel Informationon 11-20 Please click on the link to view the study images Normal [facility] Work Phone: Normal XJ-AKHY-Zwjx 2531B Work Phone: SPINE, LUMBOSACRAL MIN 4 VIE WSon 11-20-2021 SPINE, LUMBOSACRAL MIN 4 VIEWS Patient Name: BRIGITTE HIGH STUDY: Lumbar Spine, 5 views. INDICATION: lbp M54.9: Back pain. COMPARISON: 07/15/2020. ACCESSION NUMBER(S): [id number] ORDERING CLINICIAN: JING CAMPBELL FINDINGS: Moderate levoscoliosis centered in the mid lumbar region. Grade 1 L5-S1 anterolisthesis noted. Moderate spondylosis at L2-3 with disc height loss and endplate sclerosis. Mild spondylosis at L3-4. Vmul-bs-acciglfl facet joint degenerative changes throughout the lumbar spine. No spondylolysis on the oblique views. Atherosclerosis of the abdominal aorta noted Vertebral body heights are preserved. Posterior elements are intact. IMPRESSION: 1. Moderate levoscoliosis with lumbar spine degenerative changes as described above that are most pronounced at L2-3 and L3-4. 2. Grade 1 L5-S1 anterolisthesis. Electronically signed by: POORNIMA MONTERO MD Normal [facility] Tobacco Screening.on 022 Last menstrual period start date hysterectomy [facility] Work Phone: Tobacco use status CPHS b) No [facility] Work Phone: CHEST 2 VIEW PA AND LATon CHEST 2 VIEW PA AND LAT Patient Name: BRIGITTE HIGH STUDY: TH CHEST 2 VIEW PA AND LAT; INDICATION: pain. Cough. History of breast cancer and history of smoking. COMPARISON: 07/27/2020 ACCESSION NUMBER(S): [id number] ORDERING CLINICIAN: JING CAMPBELL FINDINGS: The cardiac [...] process. Electronically signed by: POORNIMA MONTERO MD [facility] Cult, Urineon 04-04-2021 Bacteria identified Cx Nom (U) JX-USTI-Kfvc 2533T Work Phone: Laboratory - Chemistry and C hemistry - challengeon 04-04-2021 Albumin BCP dye [Mass/Vol] 4.2 g/dL 3.4 - 5.0 JV-JKWZ-Ozbs 2535A Work Phone: ALP [Catalytic activity/Vol] 81 U/L 33 - 136 SE-SOWD-Okmc 2535A Work Phone: ALT With P-5'-P [Catalytic activity/Vol] 24 U/L 7 - 45 CF-MXLH-Fgkf 2535A Work Phone: Comment on above: Patients treated wit h Sulfasalazine may generate falsely decreased results for ALT. Anion gap [Moles/Vol] 12 mmol/L 10 - 20 NF-NZAU-Prlr 2535A Work Phone: AST With P-5'-P [Catalytic activity/Vol] 22 U/L 9 - 39 XF-FIXH-Xnpv 2535A Work Phone: Bilirubin [Mass/Vol] 0.4 mg/dL 0.0 - 1.2 BV-UVPQ-Blnt 2535A Work Phone: Calcium [Mass/Vol] 9.6 mg/dL 8.6 - 10.3 MP-WSP C-Laila Tovar Work Phone: Chloride [Moles/Vol] 107 mmol/L 98 - 107 JR-GSPQ-Xzyj 2535A Work Phone: CO2 [Moles/Vol] 26 mmol/L 21 - 32 LYN-WSPC-Lauryn Magallanes Work Phone: Creatinine [Mass/Vol] 0.65 mg/dL See Below QB-FLYW-Zdxr 2535A Work Phone: Comment on above: Reference Range: 0.5 0 - 1.05 Glucose [Mass/Vol] 89 mg/dL 74 - 99 LYN-WSP C-Laila Tovar Work Phone: Potassium [Moles/Vol] 4.7 mmol/L 3.5 - 5.3 AX-VTSN-Gbjb 2535A Work Phone: Protein [Mass/Vol] 7.2 g/dL 6.4 - 8.2 MP-WSP C-Laila Tovar Work Phone: Sodium [Moles/Vol] 140 mmol/L 136 - 145 MP-WSP C-Laila Tovar Work Phone: Urea nitrogen [Mass/Vol] 12 mg/dL 6 - 23 AW-FBAT-Cngc 2535A Work Phone: Laboratory - Hematology and Cell countson 04-04-2021 Erythrocyte distribution width (RBC) [Ratio] 13.8 % See Below UA-XPEX-Mrps 2535A Work Phone: Comment on above: Reference Range: 11. 5 - 14.5 Hematocrit (Bld) [Volume fraction] 41.7 % See Below BZ-SJPT-Gxbm Guy Work Phone: Comment on above: Reference Range: 36. 0 - 46.0 Hemoglobin (Bld) [Mass/Vol] 13.2 g/dL See Below WB-ZCMG-Nsmj 2535A Work Phone: Comment on above: Reference Range: 12. 0 - 16.0 MCHC (RBC) [Mass/Vol] 31.7 g/dL below low threshold See Below NP-DYBK-Hgdv 2535A Work Phone: Comment on above: Reference Range: 32. 0 - 36.0 MCV (RBC) [Entitic vol] 98 fL 80 - 100 GP-XVXP-Ntti 2535A Work Phone: Platelets (Bld) [#/Vol] 247 10*3/uL 150 - 450 KR-VBAI-Xcot 2535A Work Phone: RBC (Bld) [#/Vol] 4.26 {x10E12/L} See Below MP -WSPC-Laila 2535A Work Phone: Comment on above: Reference Range: 4.0 0 - 5.20 WBC (Bld) [#/Vol] 4.7 10*3/uL 4.4 - 11.3 MP-WSP C-Watkins 2537G Work Phone: Lipid Panelon 04-04-2021 Cholesterol [Mass/Vol] 206 mg/dL above high threshold 0 - 199 RS-TTVF-Fuig 2535A Work Phone: Comment on above: . AGE [...] dosing. Cholesterol in HDL [Mass/Vol] 79.0 mg/dL CF-RRUW-Olqa 2535A Work Phone: Comment on above: . AGE VERY LOW LOW N ORMAL HIGH 0-19 Y < 35 < 40 40-45 ---- 20- 24 Y ---- < 40 >45 ---- >24 Y ---- < 40 40-60 >60. Cholesterol in LDL [Mass/Vol] 95 mg/dL 0 - 99 PJ-CQOK-Lpdv 2097S Work Phone: Comment on above: . NEAR BORD AGE CHERRIE RABLE OPTIMAL HIGH HIGH VERY HIGH 0-19 Y 0 - 109 --- 110-129 >/= 130 ---- 20-24 Y 0 - 119 --- 120-159 >/= 160 ---- >24 Y 0 - 99 100-129 130-159 160-189 >/=190. Cholesterol.total/ Cholesterol in HDL [Mass ratio] 2.6 {ratio} XO-YFTK-Wvzd WILEX3O Work Phone: Comment on above: REF VALUESDESIRABLE < 3.4HIGH RISK > 5.0 Triglyceride [Mass/Vol] 161 mg/dL above high threshold 0 - 149 BR-VPMG-Xomq WILEX7L Work Phone: Comment on above: . AGE [...] Lipid Panel 32 mg/dL 0 - 40 HH-OGYW-Zcqx 4099K Work Phone: No Panel Informationon 04-04 >60 >60 LK-AAEZ-Iuon 2531U Work Phone: Comment on above: CALCULATIONS OF RYAN MATED GFR ARE PERFORMED USING THE MDRD STUDY EQUATION FOR THE IDMS-TRACEABLE CREATININE METHODS. CLIN CHEM 2007;53:766-72 Radiologyon 04-04-2021 XR Chest 2 Views Normal MP-WSPC- Watkins 2535A Work Phone: Urinalysison 04-04-2021 Color (U) YELLOW See Below LB-JMYB-Qjah 2535A Work Phone: Comment on above: Reference Range: STR AW,YELLOW Glucose Ql (U) Negative NEGATIVE MP-WSPC-Av on Work Phone: Ketones Ql (U) Negative NEGATIVE MP-WSPC-Av on Work Phone: Leukocyte esterase Test strip Ql (U) LARGE (3+) Abnormal NEGATIVE VD-LHRB-Yrtu Work Phone: pH (U) 5.0 [pH] 5.0 - 8.0 AJ-METB-Tpxi Work Phone: Protein (U) [Mass/Vol] Negative NEGATIVE AB-VFXK-Kcst 2535A Work Phone: RBC (U) [#/Vol] Negative NEGATIVE MP-WSPC-A von Work Phone: Specific gravity (U) [Rel density] 1.016 1 See Below TJ-KMMI-Wiyq 2535A Work Phone: Comment on above: Reference Range: 1.0 05 - 1.035 Urinalysis Negative NEGATIVE FA-HGZQ-Auih 2535A Work Phone: Urinalysis <2.0 0.0 - 1.9 EY-WQUY-Jsxj 2535A Work Phone: Urinalysis CLEAR CLEAR LS-LJEJ-Xvwo 2535A Work Phone: Urinalysis, Microscopicon Urinalysis, Microscopic <1 0-5 EE-MRGK-Brys 2535A Work Phone: Urinalysis, Microscopic 1 {/HPF} 0-5 QH-KTFW-Zyzz Work Phone: Vitamin D 25-Hydroxyon 04-04 25-hydroxyvitamin D3 [Mass/Vol] 34 ng/mL CZ-JERY-Wdhr Work Phone: Comment on above: .DEFICIENCY: < 20 NG /MLINSUFFICIENCY: 20-29 NG/MLSUFFICIENCY: 30-100 NG/MLTHIS ASSAY ACCURATELY QUANTIFIES THE SUM OFVITAMIN D3, 25-HYDROXY AND VIT D2,25-HYDROXY. BILATERAL KNEE 3 VIEWSon BILATERAL KNEE 3 VIEWS Patient Name: BRIGITTE HIGH STUDY: BILATERAL KNEE; 3 VIEWS; 02/20/2021 12:06 pm INDICATION: right lateral knee pain. COMPARISON: None. ACCESSION NUMBER(S): [id number] ORDERING CLINICIAN: JING CAMPBELL FINDINGS: Bilateral knees, three views of each Mild tricompartmental osteophytosis bilaterally. There is no joint space narrowing. There is no effusion. No fracture seen IMPRESSION: Mild degenerative changes with osteophyte formation Electronically signed by: RIKY MCDONOUGH MD [facility] C Reactive Protein, Serumon 02-20-2021 CRP [Mass/Vol] 0.59 mg/dL MP-WSPC-Av on Work Phone: Comment on above: REF VALUE< 1.00 Citrulline Antibodyon 2020 Cyclic citrullinated peptide IgG Qn <1 ST-FXOM-Elil Work Phone: Comment on above: THE TEST [...] dye [Mass/Vol] 4.3 g/dL 3.4 - 5.0 ZW-YCII-Twoi 2535A Work Phone: ALP [Catalytic activity/Vol] 70 U/L 33 - 136 EH-HAHH-Rcaz 2535A Work Phone: ALT With P-5'-P [Catalytic activity/Vol] 23 U/L 7 - 45 EZ-ITCG-Usgr 2535A Work Phone: Comment on above: Patients treated wit h Sulfasalazine may generate falsely decreased results for ALT. Anion gap [Moles/Vol] 13 mmol/L 10 - 20 IR-FTTC-Rwpw 2535A Work Phone: AST With P-5'-P [Catalytic activity/Vol] 27 U/L 9 - 39 QD-ETWM-Atdi 2535A Work Phone: Bilirubin [Mass/Vol] 0.5 mg/dL 0.0 - 1.2 LP-MDZV-Tdys 2535A Work Phone: Calcium [Mass/Vol] 9.6 mg/dL 8.6 - 10.3 MP-WSP C-Watkins Óscar Work Phone: Chloride [Moles/Vol] 107 mmol/L 98 - 107 BK-CRXX-Wflv 2535A Work Phone: CO2 [Moles/Vol] 23 mmol/L 21 - 32 MP-WSPC-A onel Cantrell Work Phone: Creatinine [Mass/Vol] 0.71 mg/dL See Below SE-VVEQ-Mdao 2535A Work Phone: Comment on above: Reference Range: 0.5 0 - 1.05 Glucose [Mass/Vol] 82 mg/dL 74 - 99 MP-WSP C-Watkins 2535A Work Phone: Potassium [Moles/Vol] 4.2 mmol/L 3.5 - 5.3 NX-NWLP-Vckq 2535A Work Phone: Protein [Mass/Vol] 7.2 g/dL 6.4 - 8.2 MP-WSP C-Watkins Guy Work Phone: Sodium [Moles/Vol] 139 mmol/L 136 - 145 MP-WSP C-Laila Óscar5A Work Phone: Urea nitrogen [Mass/Vol] 18 mg/dL 6 - 23 SY-QIFF-Sqtx Guy Work Phone: Laboratory - Hematology and Cell countson 02-20-2021 Erythrocyte distribution width (RBC) [Ratio] 14.3 % See Below BA-UGLZ-Iuah 2535A Work Phone: Comment on above: Reference Range: 11. 5 - 14.5 Hematocrit (Bld) [Volume fraction] 41.3 % See Below NP-KVGJ-Qyuy Guy Work Phone: Comment on above: Reference Range: 36. 0 - 46.0 Hemoglobin (Bld) [Mass/Vol] 13.0 g/dL See Below TR-YUJX-Ygld Guy Work Phone: Comment on above: Reference Range: 12. 0 - 16.0 MCHC (RBC) [Mass/Vol] 31.5 g/dL below low threshold See Below VO-EHBJ-Mzdi Guy Work Phone: Comment on above: Reference Range: 32. 0 - 36.0 MCV (RBC) [Entitic vol] 100 fL 80 - 100 LA-ONRX-Vlcw Guy Work Phone: Platelets (Bld) [#/Vol] 261 10*3/uL 150 - 450 FH-YREA-Mizi 2535A Work Phone: RBC (Bld) [#/Vol] 4.13 {x10E12/L} See Below MP -WSPC-Laila 2535A Work Phone: Comment on above: Reference Range: 4.0 0 - 5.20 WBC (Bld) [#/Vol] 6.0 10*3/uL 4.4 - 11.3 MP-WSP C-Watkins 2535A Work Phone: Laboratory - Serology - non- microon 02-20-2021 Nuclear Ab Hep2 substrate Ql (S) Negative NEGATIVE CX-HZOD-Xqcu Óscar5A Work Phone: Comment on above: The Antinuclear Anti body (JACOB) test was performed using indirect immunofluorescence assay with HEp-2 cells slide. No Panel Informationon 02-20 >60 >60 ZC-XXAH-Hzst Guy Work Phone: Comment on above: CALCULATIONS OF RYAN MATED GFR ARE PERFORMED USING THE MDRD STUDY EQUATION FOR THE IDMS-TRACEABLE CREATININE METHODS. CLIN CHEM 2007;53:766-72 Radiologyon 02-20-2021 XR Knee - bilateral 3 Views Normal HO-ZHUX-Azlt Guy Work Phone: XR Knee - bilateral 3 Views Please click on the link to view the study images Normal KQ-DLDM-Vrlz Guy Work Phone: Rheumatoid Factor, Serum or Plasmaon 02-20-2021 Rheumatoid factor Nephelometry Qn (S) <10 0 - 15 KF-IRBD-Wppd 253Jose Luis Work Phone: Sedimentation Rate, Erythroc yteon 02-20-2021 ESR (Bld) [Velocity] 8 mm/h 0 - 20 HS-LDHE-Qbnr Guy Work Phone: TSH - Thyroid Stimulating Ho rmone, Serumon 02-20-2021 TSH Qn 2.66 m[IU]/L See Below TE-JVHT-Ifyq 2535A Work Phone: Comment on above: Reference Range: 0.4 4 - 3.98 TSH testing is performed using different testing methodology at [facility] than at other [facility]. Direct result comparisons should only be made within the same method. Uric Acid, Serumon Urate [Mass/Vol] 4.5 mg/dL 2.3 - 6.7 MP-WSPC- Watkins 2535A Work Phone: Comment on above: Venipuncture immedia tely after or during the administration of Metamizole may lead to falsely low results. Testing should be performed immediately prior to Metamizole dosing. Vitamin B12, Serumon 021 Cobalamin (Vitamin B12) [Mass/Vol] 306 pg/mL 211 - 911 KK-TASP-Cfyl 9216G Work Phone: CA27.29 (CA15-3)on Cancer Ag 27-29 Qn 44.7 [arb'U]/mL above high threshold 0.0 - 38.6 BY-FYTQ-Hara 2531I Work Phone: Comment on above: CA 27.29 testing is performed by chemiluminescent immunoassay using the [employer]. Values obtained with different analytic methods cannot [...] WBC (Bld) 0.5 % 0.0 - 2.0 ZL-QRJG-Fbrg 5089M Work Phone: Erythrocyte distribution width (RBC) [Ratio] 14.1 % See Below RL-CMEK-Xgko WILEX0N Work Phone: Comment on above: Reference Range: 11. 5 - 14.5 Hematocrit (Bld) [Volume fraction] 36.1 % See Below BY-TDJC-Nork WILEX1K Work Phone: Comment on above: Reference Range: 36. 0 - 46.0 Hemoglobin (Bld) [Mass/Vol] 11.9 g/dL below low threshold See Below US-UMCJ-Aycq [id number] Work Phone: Comment on above: Reference Range: 12. 0 - 16.0 Lymphocytes/100 WBC (Bld) 39.4 % See Below AK-IVUD-Ztwi WILEX9X Work Phone: Comment on above: Reference Range: 13. 0 - 44.0 MCHC (RBC) [Mass/Vol] 33.0 g/dL See Below NY-CAAJ-Tuzr Guy Work Phone: Comment on above: Reference Range: 32. 0 - 36.0 MCV (RBC) [Entitic vol] 95 fL 80 - 100 UA-NQUW-Zsme Óscar5A Work Phone: Monocytes/100 WBC (Bld) 7.5 % 2.0 - 10.0 MR-NPRO-Ylgy Óscar5A Work Phone: Neutrophils/100 WBC (Bld) 50.1 % See Below KL-MZSS-Rrzw Guy Work Phone: Comment on above: Reference Range: 40. 0 - 80.0 Platelets (Bld) [#/Vol] 225 10*3/uL 150 - 450 VQ-FJXN-Gxfe Guy Work Phone: RBC (Bld) [#/Vol] 3.80 {x10E12/L} below low threshold See Below TF-UWOZ-Ulej Guy Work Phone: Comment on above: Reference Range: 4.0 0 - 5.20 WBC (Bld) [#/Vol] 4.0 10*3/uL below low threshold 4.4 - 11.3 SE-CREF-Sqqa Guy Work Phone: Complete Blood Count + Differential 0.02 {x10E9/L} See Below PD-FYWJ-Qxrx Guy Work Phone: Comment on above: Reference Range: 0.0 0 - 0.10 Complete Blood Count + Differential 0.10 {x10E9/L} See Below JA-TFSO-Tred 2535A Work Phone: Comment on above: Reference Range: 0.0 0 - 0.40 Complete Blood Count + Differential 0.30 {x10E9/L} See Below UP-OGRO-Wlgj Óscar5A Work Phone: Comment on above: Reference Range: 0.0 5 - 0.80 Complete Blood Count + Differential 1.57 {x10E9/L} See Below FK-DQCF-Fajl 2X Work Phone: Comment on above: Reference Range: 0.8 0 - 3.00 Complete Blood Count + Differential 1.99 {x10E9/L} See Below JB-VLTM-Egal 3L Work Phone: Comment on above: Reference Range: 1.6 0 - 5.50 Complete Blood Count + Differential 2.5 % 0.0 - 6.0 DF-LLMB-Whcr 7N Work Phone: Complete Blood Count + Differential 0.0 % 0.0 - 0.9 KY-QRCE-Kftc Guy Work Phone: Comment on above: Immature Granulocyte Count (IG) includes promyelocytes, myelocytes and metamyelocytes but does not include bands. Percent differential counts (%) should be interpreted in the context of the absolute cell counts (cells/L). Laboratory - Chemistry and C hemistry - challengeon 12-26-2020 Albumin BCP dye [Mass/Vol] 4.4 g/dL 3.4 - 5.0 SV-UNDZ-Rhrx 7V Work Phone: ALP [Catalytic activity/Vol] 66 U/L 33 - 136 AL-AYGP-Xoin Work Phone: ALT With P-5'-P [Catalytic activity/Vol] 18 U/L 7 - 45 HQ-TCUV-Tuxq Work Phone: Comment on above: Patients treated wit h Sulfasalazine may generate falsely decreased results for ALT. Anion gap [Moles/Vol] 10 mmol/L 10 - 20 AA-WPJO-Hyxr Work Phone: AST With P-5'-P [Catalytic activity/Vol] 19 U/L 9 - 39 HY-VGPA-Vavn 2535A Work Phone: Bilirubin [Mass/Vol] 0.5 mg/dL 0.0 - 1.2 JW-RVFJ-Pcfh Óscar5A Work Phone: Calcium [Mass/Vol] 9.6 mg/dL 8.6 - 10.3 MP-WSP C-Laila Óscar5A Work Phone: Chloride [Moles/Vol] 108 mmol/L above high threshold 98 - 107 CG-JRYF-Khgi Óscar5A Work Phone: CO2 [Moles/Vol] 25 mmol/L 21 - 32 MP-WSPC-A onel Tovar Work Phone: Creatinine [Mass/Vol] 0.70 mg/dL See Below PT-RAWO-Bbgv Guy Work Phone: Comment on above: Reference Range: 0.5 0 - 1.05 Glucose [Mass/Vol] 108 mg/dL above high threshold 74 - 99 LZ-IJLB-Elmw 2535A Work Phone: Potassium [Moles/Vol] 3.7 mmol/L 3.5 - 5.3 AB-WDYR-Lxzf Guy Work Phone: Protein [Mass/Vol] 7.1 g/dL 6.4 - 8.2 MP-WSP C-Laila Guy Work Phone: Sodium [Moles/Vol] 139 mmol/L 136 - 145 MP-WSP C-Watkins Guy Work Phone: Urea nitrogen [Mass/Vol] 16 mg/dL 6 - 23 WS-BIJQ-Pyyj Guy Work Phone: No Panel Informationon 12-26 >60 >60 AN-UTFI-Pldy 2535A Work Phone: Comment on above: CALCULATIONS OF RYAN MATED GFR ARE PERFORMED USING THE MDRD STUDY EQUATION FOR THE IDMS-TRACEABLE CREATININE METHODS. CLIN CHEM 2007;53:766-72 Mamm - Screening Mammogram w / Tomosynthesison 07-15-2020 MG Breast screening Interpreted by: BAILEE FRANKLIND109/17/19 08:23MRN: [id number] Name: BRIGITTE HIGH STUDY:DIGITAL SCREENING RIGHT-SIDED MAMMOGRAM [...] signed by: BAILEE HUTSON 07/17/20 08:23 Normal AH-EYKS-Wlhs 7271E Work Phone: Comment on above: ORDER REVISED TO A D IGITAL MAMM SCREENING W/ CLAUDIA BY RADIOLOGIST; Original Order Number: [id number] Otheron 07-15-2020 XR Cervical spine 3 views Interpreted by: YASMINE GIRON07/17/20 10:01MRN: [id number] Name: BRIGITTE HIGH STUDY:SPINE, CERVICAL, 2 OR [...] signed by: YASMINE GIRON 07/17/20 10:01 Normal VW-UZAR-Lsnh 2177S Work Phone: XR Lumbar spine AP and lateral Interpreted by: YASMINE GIRON07/17/20 10:02MRN: [id number] Name: BRIGITTE HIGH STUDY:SPINE, LUMBOSACRAL; 2 OR 3 VIEWS INDICATION:Neck [...] signed by: YASMINE GIRON 07/17/20 10:02 Normal IC-DCRE-Tijo 2535A Work Phone: KNEES BOTH STANDINGon 2017 KNEES BOTH STANDING DATE OF EXAM: May 07 2018 1:48PM CLINICAL HISTORY/ Patient Name: BRIGITTE HIGH STUDY: KNEES BOTH STANDING; 05/07/2018 1:48 pm INDICATION: cervical radiculopathy, bilat knee pain. COMPARISON: None. ACCESSION NUMBER(S): [id number] ORDERING CLINICIAN: JING CAMPBELL FINDINGS: No fracture or dislocation of either knee. Moderate joint space narrowing. Tiny patellar osteophytes. CONCLUSION: IMPRESSION: Moderate degenerative changes of the knees. Normal [facility] SPINE C MIN 4 VIEWSon 2017 SPINE C MIN 4 VIEWS DATE OF EXAM: May 07 2018 1:48PM CLINICAL HISTORY/ Patient Name: BRIGITTE HIGH STUDY: SPINE C MIN 4 VIEWS; 05/07/2018 1:48 pm INDICATION: cervical radiculopathy, bilat knee pain. COMPARISON: None. ACCESSION NUMBER(S): [id number] ORDERING CLINICIAN: JING CAMPBELL FINDINGS: Anterior metallic [...] Degenerative changes of the cervical spine. Normal [facility] LUMBAR SP WO CONTRASTon 09-26 LUMBAR SP WO CONTRAST STUDY:LUMBAR SP WO CONTRAST; 10/18/2017 8:10 amINDICATION:LUMBAR RADICULOPATHY (M54.16).COMPARISON:04/29ACCESSION NUMBER(S):[id number] RDERING CLINICIAN:Jing Johnson:Sagittal and axial T1 and T2 weighted images [...] to theright at L3-4 and L4-5.Interpreted within [facility] [place] Normal [facility] Vital Signs Date Time Vital Sign Value Performing Clinician Facility 01-16-2024 10:23-0400 Body mass index (BMI) [Ratio] 26.89 kg/m2 Carlito Horvath MD Work Phone: [facility] 01-16-2024 10:23-0400 Body temperature 97.9 [degF] Carlito Horvath MD Work Phone: [facility] 01-16-2024 10:23-0400 Body weight 73.3 kg Carlito Horvath MD Work Phone: [facility] 01-16-2024 10:23-0400 Diastolic blood pressure 87 mm[Hg] Carlito Horvath MD Work Phone: [facility] 01-16-2024 10:23-0400 Heart rate 70 /min Carlito Horvath MD Work Phone: [facility] 01-16-2024 10:23-0400 Respiratory rate 16 /min Carlito Horvath MD Work Phone: [facility] 01-16-2024 10:23-0400 SaO2% (BldA) [Mass fraction] 96 % Carlito Horvtah MD Work Phone: [facility] 01-16-2024 10:23-0400 Systolic blood pressure 137 mm[Hg] Carlito Horvath MD Work Phone: [facility] 12-21-2023 09:57-0400 Body height 165.1 cm MD Star Recinos Work Phone: [facility] 12-21-2023 09:57-0400 Body mass index (BMI) [Ratio] 26.8 kg/m2 MD Star Recinos Work Phone: [facility] 12-21-2023 09:57-0400 Body temperature 97.8 [degF] MD Star Recinos Work Phone: [facility] 12-21-2023 09:57-0400 Body weight 73.02 kg MD Star Recinos Work Phone: [facility] 12-21-2023 09:57-0400 Diastolic blood pressure 70 mm[Hg] MD Star Recinos Work Phone: [facility] 12-21-2023 09:57-0400 Heart rate 77 /min MD Star Recinos Work Phone: [facility] 12-21-2023 09:57-0400 Respiratory rate 16 /min MD Star Recinos Work Phone: [facility] 12-21-2023 09:57-0400 SaO2% (BldA) [Mass fraction] 98 % MD Star Recinos Work Phone: [facility] 12-21-2023 09:57-0400 Systolic blood pressure 112 mm[Hg] MD Star Recinos Work Phone: [facility] 08-25-2023 11:36-0500 Blood Pressure Location Star RECINOS [facility] 08-25-2023 11:36-0500 Diastolic blood pressure 84 mm[Hg] Star RECINOS [facility] 08-25-2023 11:36-0500 Heart rate 79 /min Star RECINOS [facility] 08-25-2023 11:36-0500 Respiratory rate 16 /min Star RECINOS [facility] 08-25-2023 11:36-0500 Systolic blood pressure 134 mm[Hg] Star RECINOS [facility] 12-10-2022 16:07-0400 Body height 165.1 cm Kristyn Dougherty Work Phone: [facility] Work Phone: 12-10-2022 16:07-0400 Body mass index (BMI) [Ratio] 26.96 kg/m2 Kristyn Dougherty Work Phone: [facility] Work Phone: 12-10-2022 16:07-0400 Body surface area Derived from formula 1.81 m2 Kristyn Jean-Baptistemer Work Phone: [facility] Work Phone: 12-10-2022 16:07-0400 Body weight 73.48 kg Kristyn Dougherty Work Phone: [facility] Work Phone: 04-29-2022 11:05-0400 Body height 163.83 cm Jing Campbell Work Phone: AA-WALY-Rfnd 2535A Work Phone: 04-29-2022 11:05-0400 Body mass index (BMI) [Ratio] 28.73 kg/m2 Jing Campbell Work Phone: VQ-QPLF-Mqww 2535A Work Phone: 04-29-2022 11:05-0400 Body surface area Derived from formula 1.84 m2 Jing Campbell Work Phone: PF-GLHM-Tcse 2535A Work Phone: 04-29-2022 11:05-0400 Body temperature 97.5 [degF] Jing Campbell Work Phone: UP-CAKS-Mxtw 2535A Work Phone: 04-29-2022 11:05-0400 Body weight 77.11 kg Jing Campbell Work Phone: JU-IYBG-Axux 2535A Work Phone: 04-29-2022 11:05-0400 Diastolic blood pressure 82 mm[Hg] Jing Campbell Work Phone: ZD-PMVP-Cqiz 2535A Work Phone: 04-29-2022 11:05-0400 Heart rate 72 /min Jing Campbell Work Phone: AS-BEDD-Srec 2535A Work Phone: 04-29-2022 11:05-0400 Respiratory rate 16 /min Jing Campbell Work Phone: MB-LMSR-Xyio 2535A Work Phone: 04-29-2022 11:05-0400 SaO2% (BldA) [Mass fraction] 98 % Jing Campbell Work Phone: AQ-TDEB-Vdzy 2535A Work Phone: 04-29-2022 11:05-0400 Systolic blood pressure 130 mm[Hg] Jing Campbell Work Phone: TO-FAQS-Lnip 2535A Work Phone: 04-12-2022 11:45-0400 Body mass index (BMI) [Ratio] 27.79 kg/m2 Jing Campbell Work Phone: XJ-FPXV-Bsml 2535A Work Phone: 04-12-2022 11:45-0400 Body surface area Derived from formula 1.83 m2 Jing Campbell Work Phone: UQ-NRGW-Rdbc 2535A Work Phone: 04-12-2022 11:45-0400 Body temperature 98.2 [degF] Jing Campbell Work Phone: FM-KUOA-Vtap 2535A Work Phone: 04-12-2022 11:45-0400 Body weight 75.75 kg Jing Campbell Work Phone: EW-DYOR-Lcuz 2535A Work Phone: 04-12-2022 11:45-0400 Diastolic blood pressure 80 mm[Hg] Jing Campbell Work Phone: ML-XXTM-Nitb 2535A Work Phone: 04-12-2022 11:45-0400 Heart rate 72 /min Jing Campbell Work Phone: BQ-UVIR-Buee 2535A Work Phone: 04-12-2022 11:45-0400 Respiratory rate 18 /min Jing Campbell Work Phone: NM-BUPI-Tbhc 2532W Work Phone: 04-12-2022 11:45-0400 SaO2% (BldA) [Mass fraction] 98 % Jing Campbell Work Phone: VX-WHSU-Xcsu 2536I Work Phone: 04-12-2022 11:45-0400 Systolic blood pressure 126 mm[Hg] Jing Campbell Work Phone: PV-ZXJD-Ilfg 2530K Work Phone: 01-07-2022 09:18-0400 Body height 165.1 cm Jing Campbell Work Phone: [facility] Work Phone: 01-07-2022 09:18-0400 Body mass index (BMI) [Ratio] 28.11 kg/m2 [facility] 01-07-2022 09:18-0400 Body surface area Derived from formula 1.84 m2 Jing Campbell [facility] Work Phone: 01-07-2022 09:18-0400 Body weight 76.61 kg Jing Campbell Work Phone: [facility] Work Phone: 01-07-2022 09:18-0400 Diastolic blood pressure 70 mm[Hg] Jing Campbell Work Phone: [facility] Work Phone: 01-07-2022 09:18-0400 Systolic blood pressure 118 mm[Hg] Jing Campbell Work Phone: [facility] Work Phone: 11-20-2021 13:51-0400 Body height 165.1 cm Jing Campbell Work Phone: [facility] Work Phone: 11-20-2021 13:51-0400 Body mass index (BMI) [Ratio] 28.62 kg/m2 Jing Campbell Work Phone: [facility] Work Phone: 11-20-2021 13:51-0400 Body surface area Derived from formula 1.86 m2 Jing Campbell Work Phone: [facility] Work Phone: 11-20-2021 13:51-0400 Body weight 78.02 kg Jing Campbell Work Phone: [facility] Work Phone: 11-20-2021 13:51-0400 Diastolic blood pressure 80 mm[Hg] Jing Campbell Work Phone: [facility] Work Phone: 11-20-2021 13:51-0400 Systolic blood pressure 110 mm[Hg] Jing Campbell Work Phone: [facility] Work Phone: 10-29-2021 11:29-0400 Body mass index (BMI) [Ratio] 28.62 kg/m2 Jing Campbell Work Phone: WO-VQSH-Viox 2535A Work Phone: 10-29-2021 11:29-0400 Body surface area Derived from formula 1.86 m2 Jing Campbell Work Phone: NY-HHMM-Xyma 2535A Work Phone: 10-29-2021 11:29-0400 Body temperature 98.2 [degF] Jing Campbell Work Phone: WB-GDWG-Embk 2535A Work Phone: 10-29-2021 11:29-0400 Body weight 78.02 kg Jing Campbell Work Phone: PV-AALC-Ojuv 2535A Work Phone: 10-29-2021 11:29-0400 Diastolic blood pressure 72 mm[Hg] Jing Campbell Work Phone: OF-XPAA-Jxwh 2535A Work Phone: 10-29-2021 11:29-0400 Heart rate 76 /min Jing Campbell Work Phone: YV-SOAE-Voca 2535A Work Phone: 10-29-2021 11:29-0400 Respiratory rate 18 /min Jing Campbell Work Phone: BE-LFEM-Unvc 2535A Work Phone: 10-29-2021 11:29-0400 SaO2% (BldA) [Mass fraction] 98 % Jing Campbell Work Phone: GY-ZOBT-Vceq 2535A Work Phone: 10-29-2021 11:29-0400 Systolic blood pressure 122 mm[Hg] Jing Campbell Work Phone: GG-YCIN-Unoq 2535A Work Phone: 05-08-2021 11:20-0400 Diastolic blood pressure 82 mm[Hg] Jingnikhil Garciaey Work Phone: JL-VNBM-Rgem 2535A Work Phone: 05-08-2021 11:20-0400 Systolic blood pressure 130 mm[Hg] Jing Garciaey Work Phone: RN-KILF-Fnsa 2535A Work Phone: 05-08-2021 10:35-0400 Body height 165.1 cm Jing Campbell Work Phone: IH-WXHA-Dsno 2535A Work Phone: 05-08-2021 10:35-0400 Body mass index (BMI) [Ratio] 28.62 kg/m2 Jingnikhil Garciaey Work Phone: LA-ETTA-Mmmv 2535A Work Phone: 05-08-2021 10:35-0400 Body surface area Derived from formula 1.86 m2 Jing Garciaey Work Phone: VG-PQND-Adux 2535A Work Phone: 05-08-2021 10:35-0400 Body temperature 97.5 [degF] Jing Campbell Work Phone: GN-HHJI-Blka 2535A Work Phone: 05-08-2021 10:35-0400 Body weight 78.02 kg Jing Campbell Work Phone: AP-EQIM-Qagd 2535A Work Phone: 05-08-2021 10:35-0400 Diastolic blood pressure 84 mm[Hg] Jing Campbell Work Phone: CI-CIHE-Vpeq 2535A Work Phone: 05-08-2021 10:35-0400 Heart rate 80 /min Jing Campbell Work Phone: NUVETA 2537N Work Phone: 05-08-2021 10:35-0400 Respiratory rate 16 /min Jing Campbell Work Phone: NUVETA 2539U Work Phone: 05-08-2021 10:35-0400 SaO2% (BldA) [Mass fraction] 98 % Jing Campbell Work Phone: NUVETA 2537I Work Phone: 05-08-2021 10:35-0400 Systolic blood pressure 144 mm[Hg] Jing Campbell Work Phone: NUVETA 2530P Work Phone: 04-20-2021 09:27-0400 Body height 165.1 cm Jing Campbell Work Phone: [facility] Work Phone: 04-20-2021 09:27-0400 Body mass index (BMI) [Ratio] 28.29 kg/m2 Jing Campbell Work Phone: [facility] Work Phone: 04-20-2021 09:27-0400 Body surface area Derived from formula 1.85 m2 Jing Campbell Work Phone: [facility] Work Phone: 04-20-2021 09:27-0400 Body temperature 97.3 [degF] Jing Campbell Work Phone: [facility] Work Phone: 04-20-2021 09:27-0400 Body weight 77.11 kg Jing Campbell Work Phone: [facility] Work Phone: 04-20-2021 09:27-0400 Diastolic blood pressure 93 mm[Hg] Jing Campbell Work Phone: [facility] Work Phone: 04-20-2021 09:27-0400 Heart rate 69 /min Jing Campbell Work Phone: [facility] Work Phone: 04-20-2021 09:27-0400 Systolic blood pressure 139 mm[Hg] Jing Campbell Work Phone: [facility] Work Phone: 04-04-2021 09:17-0400 Body height 165.1 cm Jing Campbell Work Phone: BO-HERZ-Iluv 2535A Work Phone: 04-04-2021 09:17-0400 Body mass index (BMI) [Ratio] 28.46 kg/m2 Jing Campbell Work Phone: RC-LJKP-Uvlu 2535A Work Phone: 04-04-2021 09:17-0400 Body surface area Derived from formula 1.85 m2 Jing Campbell Work Phone: ID-DJNI-Oixd 2535A Work Phone: 04-04-2021 09:17-0400 Body temperature 97.7 [degF] Jing Campbell Work Phone: GC-HCUF-Qvpn 2535A Work Phone: 04-04-2021 09:17-0400 Body weight 77.57 kg Jing Campbell Work Phone: FX-LGES-Hshl 2535A Work Phone: 04-04-2021 09:17-0400 Diastolic blood pressure 84 mm[Hg] Jing Campbell Work Phone: ST-HYSM-Heat 2535A Work Phone: 04-04-2021 09:17-0400 Heart rate 68 /min Jing Campbell Work Phone: OU-WZLH-Hwhm 2535A Work Phone: 04-04-2021 09:17-0400 Respiratory rate 18 /min Jing Campbell Work Phone: DF-DBKK-Lmus 2535A Work Phone: 04-04-2021 09:17-0400 SaO2% (BldA) [Mass fraction] 98 % Jing Campbell Work Phone: BC-DREQ-Ryjb 2535A Work Phone: 04-04-2021 09:17-0400 Systolic blood pressure 128 mm[Hg] Jing Campbell Work Phone: MD-LDFF-Phhq 2535A Work Phone: 03-20-2021 15:27-0400 Body height 166.37 cm Jing Campbell Work Phone: KD-LHJR-Heni 2535A Work Phone: 03-20-2021 15:27-0400 Body mass index (BMI) [Ratio] 27.04 kg/m2 Jing Campbell Work Phone: GQ-ERYD-Ktib 2535A Work Phone: 03-20-2021 15:27-0400 Body surface area Derived from formula 1.83 m2 Jing Saud Adrian Work Phone: GY-DFVU-Peif 2535A Work Phone: 03-20-2021 15:27-0400 Body weight 74.84 kg Jing Saud Adrian Work Phone: KW-YNWG-Ejpx 2535A Work Phone: 02-20-2021 10:54-0400 Body mass index (BMI) [Ratio] 27.12 kg/m2 Jing Campbell Work Phone: JA-VLHK-Sgbu 2535A Work Phone: 02-20-2021 10:54-0400 Body surface area Derived from formula 1.81 m2 Jing Campbell Work Phone: YK-XDSY-Wxew 2535A Work Phone: 02-20-2021 10:54-0400 Body temperature 97.2 [degF] Jing Campbell Work Phone: UT-ZCYL-Wzhg 2535A Work Phone: 02-20-2021 10:54-0400 Body weight 73.94 kg Jing Campbell Work Phone: AL-WKWK-Rntd 2535A Work Phone: 02-20-2021 10:54-0400 Diastolic blood pressure 78 mm[Hg] Jing Campbell Work Phone: JA-QOSC-Hyou 2535A Work Phone: 02-20-2021 10:54-0400 Heart rate 72 /min Jing Campbell Work Phone: EX-LNWR-Yqco 2535A Work Phone: 02-20-2021 10:54-0400 Respiratory rate 16 /min Jing Campbell Work Phone: SF-TVTE-Ectp 2535A Work Phone: 02-20-2021 10:54-0400 SaO2% (BldA) [Mass fraction] 98 % Jing Campbell Work Phone: YZ-YQMM-Ocfd 2535A Work Phone: 02-20-2021 10:54-0400 Systolic blood pressure 128 mm[Hg] Jing Garciaey Work Phone: QR-MFDG-Bqmo 2535A Work Phone: 12-27-2020 09:29-0400 Body mass index (BMI) [Ratio] 26.29 kg/m2 Jing Garciaey Work Phone: KX-ISVT-Ddpj 2535A Work Phone: 12-27-2020 09:29-0400 Body surface area Derived from formula 1.79 m2 Jing Campbell Work Phone: SX-VYBX-Woeh 2535A Work Phone: 12-27-2020 09:29-0400 Body temperature 97.8 [degF] Jing Campbell Work Phone: QU-ZSSP-Edzm 2535A Work Phone: 12-27-2020 09:29-0400 Body weight 71.67 kg Jing Garciaey Work Phone: II-WLPK-Anxj 2535A Work Phone: 12-27-2020 09:29-0400 Diastolic blood pressure 82 mm[Hg] Jing Campbell Work Phone: UB-JOJQ-Jpfz 2535A Work Phone: 12-27-2020 09:29-0400 Heart rate 72 /min Jing Campbell Work Phone: GO-BPFR-Qdpt 2535A Work Phone: 12-27-2020 09:29-0400 Respiratory rate 16 /min Jing Campbell Work Phone: LP-FNQW-Ctek 2535A Work Phone: 12-27-2020 09:29-0400 SaO2% (BldA) [Mass fraction] 97 % Jing Campbell Work Phone: XI-SAFG-Nzbz 2535A Work Phone: 12-27-2020 09:29-0400 Systolic blood pressure 132 mm[Hg] Jing Campbell Work Phone: mp-WSPC-Avon 2537Z Work Phone: Encounters Encounter Date Encounter Type Care Provider Facility Start: 11-15-[facility]24 [id number] Start: 06-02-2024 End: 06-02-2024 ambulatory Jadyn Ghazoul Facility:[facility] Start: 05-05-2024 End: 05-05-2024 ambulatory Jadyn Ghazoul Facility:[facility] Start: 05-03-2024 End: 05-03-2024 ambulatory Star RECINOS Facility:[id number] Start: 04-21-2024 End: 04-21-2024 ambulatory Kristyn Dougherty Facility:[facility] Start: 03-31-2024 End: 03-31-2024 ambulatory Kristyn Ladonna Facility:[facility] Start: 03-17-2024 End: 03-17-2024 ambulatory Kristyn Ladonna Facility:[facility] Start: 03-10-2024 End: 03-10-2024 ambulatory Kristyn Ladonna Facility:[facility] Start: 03-04-2024 ambulatory Jadyn Ghazoul Facility :[facility] Start: 03-04-2024 End: 03-04-2024 ambulatory Kristyn Ladonna Facility:[facility] Start: 02-18-2024 End: 02-18-2024 ambulatory Jadyn Ghazoul Facility:[facility] Start: 02-04-2024 End: 02-04-2024 ambulatory Jadyn Ghazoul Facility:[facility] Start: 01-20-2024 End: 01-20-2024 ambulatory Jadyn Ghazoul Facility:[facility] Start: 01-16-2024 End: 01-16-2024 Office outpatient visit 25 minutes Carlito Horvath MD Work Phone: [facility] Comment on above: Malignant neoplasm o f central portion of right breast in female, estrogen receptor negative (Multi) (Primary Dx); Iron deficiency; Postmenopausal osteoporosis; Peptic ulcer disease; Dry eyes; Closed sleeve fracture of left patella, sequela Start: 01-16-2024 End: 01-16-2024 ambulatory CARLITO Y [facility] Start: 12-21-2023 End: 12-21-2023 ambulatory MD Star Recinos Work Phone: [facility] Work Phone: Start: 12-21-2023 End: 12-21-2023 Patient encounter procedure MD Star Recinos Work Phone: [facility] Work Phone: Start: 11-18-2023 End: 11-18-2023 ambulatory TANIA ARNULFO Not Available Start: 11-04-2023 End: 11-04-2023 ambulatory Star RECINOS Facility:[facility] Start: 11-04-2023 End: 11-04-2023 Lab Drop off Star RECINOS [facility] Start: 11-04-2023 End: 11-04-2023 ambulatory Star RECINOS Facility:[facility] Start: 11-04-2023 End: 11-04-2023 Patient encounter procedure Star RECINOS [facility] Start: 10-09-2023 ambulatory Star RECINOS Facili ty:[id number] Start: 10-06-2023 End: 10-06-2023 ambulatory Star RECINOS Facility:[facility] Start: 10-06-2023 End: 10-06-2023 Patient encounter procedure Star RECINOS [facility] Start: 09-25-2023 End: 09-25-2023 ambulatory Star Recinos Facility:[facility] Start: 09-25-2023 End: 09-25-2023 Departed Referred MD Star Recinos Work Phone: [facility] Start: 09-25-2023 End: 09-25-2023 ambulatory Star RECINOS Facility:[id number] Start: 08-25-2023 End: 08-25-2023 Patient encounter procedure Star RECINOS [facility] Start: 03-28-2023 End: 03-28-2023 ambulatory Lawrence MEDINA Facility:[facility] Start: 03-28-2023 End: 03-28-2023 Patient encounter procedure Lawrence Medina MD Work Phone: Plastic Surgery Comment on above: Breast pain (Primary Dx); Acquired breast deformity; Capsular contracture of breast implant, initial encounter Start: 03-25-2023 End: 03-25-2023 ambulatory Lawrence MEDINA Facility:[facility] Start: 02-11-2023 Patient encounter procedure Kristyn Dougherty [facility] Work Phone: Start: 02-11-2023 ambulatory MD SANDRA TAYLOR Facility: [id number] Start: 01-17-2023 ambulatory MD CARLITO HORVATH Facility:[facility] Start: 01-17-2023 ambulatory MD CARLITO HORVATH Facility:[id number] Start: 01-07-2023 ambulatory MD SANDRA TAYLOR Facility: [id number] Start: 12-18-2022 ambulatory KRISTYN DOUGHERTY Facility: H1 Start: 12-17-2022 ambulatory MD SANDRA TAYLOR Facility: [id number] Start: 12-10-2022 Patient encounter procedure Kristyn Dougherty Work Phone: [facility] Work Phone: Start: 12-10-2022 ambulatory DO JING CAMPBELL Facility:[id number] Start: 11-28-2022 End: 11-29-[address] ILDEFONSO HO Facility:H1 Start: 10-18-2022 End: 10-19-2022 ambulatory KRISTYN DOUGHERTY Facility:H1 Start: 08-17-2022 End: 08-18-[address] ILDEFONSO HO Facility:H1 Start: 07-05-2022 End: 07-05-2022 ambulatory KRISTYN DOUGHERTY Facility:H1 Start: 06-28-2022 End: 06-28-2022 ambulatory KRISTYN DOUGHERTY Facility:H1 Start: 05-01-2022 Chart Update Jing canseco Work Phone: YC-MIZH-Sbva 2535A Work Phone: Start: 04-29-2022 ambulatory DO JING CAMPBELL Facility:[id number] Start: 04-29-2022 Current tobacco non- user cad cap copd pv dm Jing Campbell Work Phone: PR-MWEA-Jkvj 2535A Work Phone: Start: 04-16-2022 Chart Update Jing canseco Work Phone: LH-GHIT-Cxsv 2535A Work Phone: Start: 04-12-2022 Patient encounter procedure Jing Campbell Work Phone: EV-VCMO-Mlve 2535A Work Phone: Start: 04-12-2022 ambulatory DO JING CAMPBELL Facility:[id number] Start: 01-07-2022 Office outpatient vi sit 15 minutes Jing Campbell Work Phone: [facility] Work Phone: Start: 11-30-2021 AUDIT Jing canseco Work Phone: [id number] Work Phone: Start: 11-28-2021 AUDIT Jing canseco Work Phone: [id number] [id number] Work Phone: Start: 11-26-2021 Chart Update Jing canseco Work Phone: [id number] [id number] Work Phone: Start: 11-20-2021 Office outpatient ne w 45 minutes Jing Campbell Work Phone: [facility] Work Phone: Start: 10-29-2021 Office outpatient vi sit 25 minutes Jing Campbell Work Phone: [id number] [id number] Work Phone: Start: 05-08-2021 Current tobacco non- user cad cap copd pv dm Jing Campbell Work Phone: [id number]-[id number] [id number] Work Phone: Start: 04-20-2021 Office consultation new/estab patient 60 min Jing Campbell Work Phone: [facility] Work Phone: Start: 04-04-2021 Office outpatient vi sit 25 minutes Jing Campbell Work Phone: [id number] [id number] Work Phone: Start: 03-13-2021 AUDIT Jing canseco Work Phone: [id number]-[id number] [id number] Work Phone: Start: 02-26-2021 AUDIT Jing canseco Work Phone: [id number]-Oexk [id number] Work Phone: Start: 02-23-2021 Chart Update Jing canseco Work Phone: RE-RKEV-Tzbv [id number] Work Phone: Start: 02-20-2021 Office outpatient vi sit 25 minutes Jing Campbell Work Phone: [id number] 2535A Work Phone: Start: 02-20-2021 Patient encounter procedure Jing Campbell Work Phone: [id number] [id number] Work Phone: Start: 12-27-2020 Office outpatient vi sit 25 minutes Jing Saud Adrian Work Phone: [id number] [id number] Work Phone: Start: 07-10-2020 Patient encounter procedure Jing Campbell UV-BPFW-Myyo 2535A Work Phone: Start: 02-11-2020 Patient encounter procedure Jing Campbell [id number]-[id number] 2535A Work Phone: Start: 07-01-2019 Patient encounter procedure Jing Campbell UN-LJFL-Onja 2535A Work Phone: Start: 05-19-2019 Patient encounter procedure Jing Campebll GA-ZFDJ-Lgej 2535A Work Phone: Start: 05-10-2019 Patient encounter procedure Jing Campbell AJ-RVTT-Mcsk [id number] Work Phone: Start: 08-25-2018 Patient encounter procedure JUAN CORONAFIELD Facility:8 Start: 05-07-2018 Patient encounter procedure JINGNIKHIL CAMPBELL Facility:3 Start: 10-18-2017 Ambulatory Jing Adrian Facility :[facility] Procedures Date Procedure Procedure Detail Performing Clinician Start: 05-16-2022 Colonoscopy Carlito paul MD Work Phone: Start: 04-29-2022 Lipid 1996 panel - S saadia or Plasma Carlito Horvath MD Work Phone: Cataract surgery Jing portillo Comment on above: bilateral 2014; Decompression of med melchor nerve Star RECINOS Excision of breast Star W ATERS Extraction of cataract Patri tony RECINOS Extraction of wisdom tooth P atrick JORJE History of total hysterectomy with bilateral salpingo-oophorectomy Star RECINOS Ligation of fallopian tube M tito Campbell Work Phone: Ligation of varicose vein Lauren Campbell Procedure on back Starvamsi CASEY Procedure on neck Star CASEY Tonsillectomy and adenoidectomy Jing Campbell Comment on above: uvula also removed; Total hysterectomy Jing R Adrian Work Phone: Comment on above: 1981 - due AUB and e nloarged ovarian cyst; Plan of Treatment Date Care Activity Detail Author Start: 05-16-2032 Screening for malign ant neoplasm of colon [facility] Start: 04-29-2027 Lipid panel Lipid Panel [facility] Start: 01-14-2025 End: 07-17-2025 Cancer Ag 27-29 [Units/volume] in Serum or Plasma Cancer Antigen 27-29 Lab Routine Malignant neoplasm of central portion of right breast in female, estrogen receptor negative (Multi) Expected: 01/14/2025 (Approximate), Expires: 07/17/2025 [facility] Work Phone: Comment on above: Expected: 01/14/2025 (Approximate), Expires: 07/17/2025 Start: 01-14-2025 End: 07-17-2025 CBC W Auto Differential panel - Blood CBC and Auto Differential Lab Routine Malignant neoplasm of central portion of right breast in female, estrogen receptor negative (Multi) Expected: 01/14/2025, Expires: 07/17/2025 [facility] Service Area Work Phone: Comment on above: Expected: 01/14/2025 , Expires: 07/17/2025 Start: 01-14-2025 End: 07-17-2025 Comprehensive metabolic 2000 panel - Serum or Plasma Comprehensive metabolic panel Lab Routine Malignant neoplasm of central portion of right breast in female, estrogen receptor negative (Multi) Expected: 01/14/2025 (Approximate), Expires: 07/17/2025 [facility] Work Phone: Comment on above: Expected: 01/14/2025 (Approximate), Expires: 07/17/2025 Start: 01-14-2025 End: 07-17-2025 Ferritin [Mass/volume] in Serum or Plasma Ferritin Lab Routine Iron deficiency Expected: 01/14/2025 (Approximate), Expires: 07/17/2025 [facility] Work Phone: Comment on above: Expected: 01/14/2025 (Approximate), Expires: 07/17/2025 Start: 01-14-2025 End: 07-17-2025 Iron and Iron binding capacity panel - Serum or Plasma Iron and TIBC Lab Routine Iron deficiency Expected: 01/14/2025, Expires: 07/17/2025 [facility] Work Phone: Comment on above: Expected: 01/14/2025 , Expires: 07/17/2025 Start: 01-14-2025 End: 01-14-2025 Patient encounter procedure 01/14/2025 10:00 AM EDT Office Visit [facility] [address] [place] [address] [address] [place] [id number] Carlito Horvath MD [address] [place] [address] [address] [place], [place] [id number] [facility] Start: 11-26-2023 Zoster Vaccines (3 of 3) Zoste r Vaccines (3 of 3) [facility] Start: 03-28-2023 COVID-19 Vaccine ( season) COVID-19 Vaccine ( season) [facility] Start: 03-28-2023 Influenza vaccination INFLUENZA (#1) [facility] Start: 01-07-2023 FUV, Provider: Sandra Taylor, Status: Pen, Time: 9:45 AM FUV, Provider: Sandra Taylor, Status: Pen, Time: 9:45 AM [facility] Work Phone: Start: 10-29-2022 EPV, Provider: Jing Campbell, Status: Pen, Time: 10:40 AM EPV, Provider: Jing Campbell, Status: Pen, Time: 10:40 AM [id number] [id number] Work Phone: Start: 07-28-2022 ADVANCE DIRECTIVE DISCUSSION ADVANCE DIRECTIVE DISCUSSION [facility] Start: 07-28-2022 DEPRESSION ASSESSMENT DEPRESSION ASS ESSMENT [facility] Start: 04-29-2022 MCRINITIAL, Provider : Jing aCmpbell, Status: Pen, Time: 10:40 AM MCRINITIAL, Provider: Jing Campbell, Status: Pen, Time: 10:40 AM [id number]-[id number] 2535A Work Phone: Start: 01-07-2022 FUV, Provider: Efra Barnett, Status: Pen, Time: 9:15 AM FUV, Provider: Efra Barnett, Status: Pen, Time: 9:[address] [facility] Work Phone: Start: 12-05-2021 NPV, Provider: Efra Barnett, Status: Pen, Time: 9:30 AM NPV, Provider: Efra Barnett, Status: Pen, Time: 9:30 AM [id number]-[id number] [id number] Work Phone: Start: 07-16-2021 COVID-19 VACCINE (4 - Moderna series) COVID-19 VACCINE (4 - Moderna series) [facility] Start: 05-08-2021 Patient encounter procedure MCRANNUAL, Provider: Jing Campbell, Status: Pen, Time: 10:20 AM DH-[id number]-[id number] 2535A Work Phone: Start: 04-20-2021 NPV, Provider: Allyn Ba, Status: Pen, Time: 9:30 AM NPV, Provider: Allyn Ba, Status: Pen, Time: 9:30 AM [facility] Work Phone: Start: 04-04-2021 MCRINITIAL, Provider : Jing Campbell, Status: Pen, Time: 9:20 AM MCRINITIAL, Provider: Jing Campbell, Status: Pen, Time: 9:20 AM UP-[id number]-Mrir 2535A Work Phone: Start: 03-20-2021 NPV, Provider: Juan Rutherford, Status: Pen, Time: 2:30 PM NPV, Provider: Juan Rutherford, Status: Pen, Time: 2:30 PM [facility] Work Phone: Start: 02-16-2021 NPV, Provider: Allyn Ba, Status: Pen, Time: 8:00 AM NPV, Provider: Allyn Ba, Status: Pen, Time: 8:00 AM [id number] [id number] Work Phone: Start: 2014 BONE DENSITY BONE DENSITY [facility] Start: 2014 PNEUMOCOCCAL: 65+ (1 - PCV) PNEUMOCOCCAL: 65+ (1 - PCV) [facility] Start: 11-08-1999 SHINGRIX VACCINE (1 of 2) SHINGRIX VACCINE (1 of 2) [facility] Start: 1994 COLOGUARD (FIT-DNA) COLOGUARD (FIT-D NA) [facility] Start: 1994 Colonoscopy COLONOSCOPY [facility] Start: 1994 COLORECTAL CANCER SCREENING COLORECTAL CANCER SCREENING [facility] Start: [address] COLONOGRAPHY [facility] Start: 1994 DIABETES SCREEN DIABETES SCREEN [facility] Start: 1994 FECAL OCCULT BLOOD FECAL OCCULT BLOO D [facility] Start: 1994 LIPID SCREEN LIPID SCREEN [facility] Start: 1994 SIGMOIDOSCOPY SIGMOIDOSCOPY [facility] Start: 1989 Mammography MAMMOGRAM [facility] Start: 11-08-1971 DTaP/Tdap/Td Vaccine s (1 - Tdap) DTaP/Tdap/Td Vaccines (1 - Tdap) [facility] Start: 1968 Urine microalbumin profile DTAP,TDAP,TD (1 - Tdap) [facility] Start: 11-08-1967 HEPATITIS C SCREENING HEPATITIS C [facility] Start: 11-08-1967 Hepatitis C screening Hepatitis C [facility] Start: 1949 Medicare Annual Well ness Visit Medicare Annual Wellness Visit (AWV) [facility] Start: 1949 Screening for malign ant neoplasm of colon [facility] Start: 1949 Screening for osteoporosis Bone Density Scan [facility] Immunizations Immunization Date Immunization Notes Care Provider Keila schneider 04-12-2022 Fluzone High-Dose Quadrivalent 0.7 ML Intramuscular Suspension Prefilled Syringe; Translations: [Fluzone High-Dose Quadrivalent 0.7 ML Intramuscular Suspension Prefilled Syringe] Jing Campbell Work Phone: [id number] Work Phone: Comment on above: Series: 05-21-2021 Moderna COVID-19 Vac cine 100 MCG/0.5ML Intramuscular Suspension Jing Campbell Work Phone: [facility] Comment on above: Series: 04-04-2021 influenza, high dose seasonal, preservative-free; Translations: [Fluzone High-Dose 0.5 ML Intramuscular Suspension Prefilled Syringe] Jing Campbell Work Phone: [id number] Work Phone: Comment on above: Series: 10-27-2020 Moderna COVID-19 Vac cine 100 MCG/0.5ML Intramuscular Suspension Jing Campbell Work Phone: [id number]-Vctu [id number] Work Phone: Comment on above: Series: 09-22-2020 Moderna COVID-19 Vac cine 100 MCG/0.5ML Intramuscular Suspension Jing Campbell Work Phone: [facility] 03-20-2020 influenza, injectabl e, quadrivalent, preservative free Jing Campbell Work Phone: [id number]-Awhd 2530N Work Phone: 05-19-2019 influenza, high dose seasonal, preservative-free; Translations: [Fluzone High-Dose 0.5 ML Intramuscular Suspension Prefilled Syringe] Jing Campbell TN-LBHN-Pszh 2536O Work Phone: Comment on above: Series: 05-10-2019 pneumococcal polysaccharide vaccine, 23 valent; Translations: [Pneumococcal polysaccharide vaccine, 23 valent] Jing Campbell [facility] Comment on above: Series: 03-12-2018 influenza, high dose seasonal, preservative-free Jing Campbell Work Phone: LN-BQQO-Udpx [id number] Work Phone: 05-08-2016 pneumococcal conjuga te vaccine, 13 valent Jing Campbell Work Phone: [id number]-TWFE-Hymo 4785O Work Phone: Comment on above: Series: 06-21-2014 pneumococcal polysaccharide vaccine, 23 valent Jing Campbell Work Phone: [facility] 06-21-2014 zoster vaccine, live Hayley Garciaey Work Phone: [facility] Payers Date Payer Category Payer Self-pay 2021 Unknown 2014 Medicare [id number] 1992 Medicare [id number] 1959 Medicare [id number] 1959 Unknown [id number] 1949 Unknown [id number] 2.16.8 40.1.162039.3.579.2.355 1949 Unknown [id number] 2.16.8 40.1.405440.3.579.2.355 1949 Unknown [id number] 2.16.84 0.1.223439.3.579.2.593 1949 Unknown [id number] 2.16.84 0.1.405089.3.579.2.593 1949 Unknown [id number] 2.16.84 0.1.825694.3.579.2.593 1949 Unknown [id number] 2.16.84 0.1.795211.3.579.2.593 1949 Unknown [id number] 2.16.84 0.1.319570.3.579.2.593 1949 Unknown [id number] 2.16.84 0.1.765296.3.579.2.593 1949 Unknown [id number] 2.16.8 40.1.913829.3.579.2.1069 1949 Unknown [id number] 2.16. 840.1.247153.3.579.2.356 1949 Unknown [id number] 2.16. 840.1.537275.3.579.2.356 1949 Unknown [id number] 2.16. 840.1.857519.3.579.2.356 1949 Unknown [id number] 2.16. 840.1.424702.3.579.2.356 1949 Unknown [id number] 2.16. 840.1.895187.3.579.2.356 1949 Unknown [id number] 2.16. 840.1.055584.3.579.2.356 1949 Unknown [id number] 2.16. 840.1.777579.3.579.2.356 1949 Unknown [id number] 2.16.84 0.1.282388.3.579.2.1259 1949 Unknown [id number] 2.16.8 40.1.540612.3.579.2.1245 1949 Unknown [id number] 2.16.8 40.1.322876.3.579.2.1243 1949 Unknown [id number] 2.16.8 40.1.902334.3.579.2.727 1949 Unknown [id number] 2.16.8 40.1.689274.3.579.2.727 1949 Unknown [id number] 2.16.8 40.1.024473.3.579.2.727 1949 Unknown [id number] 2.16.8 40.1.569581.3.579.2.727 1949 Unknown [id number] 2.16.8 40.1.050489.3.579.2.727 Unknown [id number] Unknown [id number] 2.16.8 40.1.262666.3.579.2.531 Unknown [id number] 2.16.8 40.1.874839.3.579.2.462 Unknown [id number] 2.16.8 40.1.939174.3.579.2.462 Unknown [id number] 2.16.8 40.1.875352.3.579.2.462 Unknown [id number] 2.16.8 40.1.448771.3.579.2.462 Unknown [id number] 2.16.8 40.1.302056.3.579.2.462 Unknown [id number] 2.16.8 40.1.618276.3.579.2.462 Unknown [id number] 2.16.8 40.1.650510.3.579.2.462 Unknown [id number] 2.16.8 40.1.871569.3.579.2.462 Unknown [id number] 2.16.8 40.1.070245.3.579.2.462 Unknown [id number] 2.16.8 40.1.871451.3.579.2.462 Unknown [id number] 2.16.8 40.1.479104.3.579.2.462 Social History Date Type Detail Facility Start: 03-11-2022 End: 02-24-2023 Former smoker Former smoker [id number] Work Phone: Start: 05-30-2014 End: 08-25-2023 Tobacco smoking status NHIS Ex-smoker [facility] History of tobacco use Current smoker [facility] Start: 03-11-2022 Alcohol intake Current drinke r of alcohol (finding) [facility] Start: 03-11-2022 End: 02-24-2023 Tobacco use panel [facility] National Score (1-100), lower number is lower risk 91 [facility] Start: 05-30-2014 Tobacco Comment quit 7 years ago [facility] Start: 05-30-2014 Alcohol Comment [facility] Start: 1950 Sex Assigned At Not on file [facility] Start: 1950 Sex Assigned At Female [facility] Start: 01-16-2024 Tobacco smoking status NHIS Tobacco smoking consumption unknown [facility] Start: 01-06-2024 End: 01-16-2024 Exposure to SARS-CoV-2 (event) Not sure [facility] NEGATED: Highlighted row - - [id number] 2535A Work Phone: Medical Equipment Procedure Code Equipment Code Equipment Origin al Text Equipment Identifier Dates Lens Iol +15.50 Acrsf 13mm 6mm - [id number] Start: 04-11-2015 Lens Iol +14 Salvador p 0 D Bcnvx 13 - [id number] Start: 04-25-2015 Functional Status Date Assessment Result Facility 10-06-2023 Functional Status N/A [facility] 08-25-2023 Functional Status N/A [facility] NEGATED: Highlighted row Functional performance Functional status health issues are not documented Disease [id number] 2535A Work Phone: Mental Status Date Assessment Result Facility NEGATED: Highlighted row Cognitive function [Interpretation] Cognitive status health issues are not documented Disease [id number]-Nshs [id number] Work Phone: Clinical Notes 12-28-2020 to 03-04-2024 Carlito Horvath MD - 01/16/2024 10:40 AM EDTPatient Lawrence Isaacs MD - 03/28/2023 10:39 AM EDT Note Date & Type Note Facility 03-04-2024 Note [facility] Medical Records Department [address] [place] [address] History Physical Exam 03/04/24 0715 MR#: [id number] Acct: [id number] Name: BRIGITTE HIGH Rep #: [id number] : 1950 73 From: Jadyn Chavez MD PCP: DOUG Brown Status[facility] Location: [address] History and Physical Date of Admission: 03/04/24 The patient is examined and there are no changes from the H P dated 02/12/2024. The patient presents for right breast lift for symmetry and revision left breast reconstruction. Informed consent is obtained and patient is marked in the preop holding area. Assessment Plan Assessment/Plan (1) Breast asymmetry between [place] breast and reconstructed breast: PLAN: Patient for right breast lift for symmetry (2) Painful periwound skin: PLAN: Patient for revision left breast reconstruction (3) Ptosis of right breast: (4) Status post left breast reconstruction: (5) History of breast cancer in adulthood: 03/04/24717 Cosigner Signature (if applicable): CC: INTERNATIONAL STUDENT COUNSELORAriadne Dougherty; Dr. Jadyn Chavez MD Signed [facility] 01-16-2024 History of Present illness Narrative Patient ID: Brigitte High is a 73 y.o. female. Referring Physician: No referring provider defined for this encounter. Primary Care Provider: NADIRA Davis Visit Type: Follow Up Subjective HPI I am doing okay Review of Systems Constitutional: Negative. HENT: Negative. Eyes: Negative. Respiratory: Negative. Cardiovascular: Negative. Gastrointestinal: Negative. Endocrine: Negative. Genitourinary: Negative. Musculoskeletal: Negative. Skin: Negative. Neurological: Negative. Hematological: Negative. Psychiatric/Behavioral: Negative. Objective BSA: 1.83 meters squared BP 137/87 (BP Location: Right arm, Patient Position: Sitting, BP Cuff Size: Adult) Pulse 70 Temp 36.6 C (97.9 F) (Temporal) Resp 16 Wt 73.3 kg (161 lb 9.6 oz) SpO2 96% BMI 26.89 kg/m has a past medical history of Anesthesia of skin (03/20/2021), Displaced fracture of greater trochanter of unspecified femur, initial encounter for closed fracture (Multi) (07/10/2020), Other general symptoms and signs (03/20/2021), Personal history of malignant neoplasm of breast (07/10/2020), Personal history of other diseases of the female genital tract (01/07/2022), Personal history of other mental and behavioral disorders (07/17/2020), and Personal history of other mental and behavioral disorders (07/10/2020). has a past surgical history that includes Other surgical history (04/30/2019); Other surgical history (04/30/2019); Other surgical history (04/30/2019); Other surgical history (11/20/2021); and Other surgical history (11/20/2021). No family history on file. Oncology History No history exists. Brigitte High has no history on file for tobacco use. She has no history on file for alcohol use. She has no history on file for drug use. Physical Exam Vitals reviewed. Constitutional: Appearance: Normal appearance. HENT: Head: Normocephalic. Mouth/Throat: Mouth: Mucous membranes are moist. Eyes: Extraocular Movements: Extraocular movements intact. Pupils: Pupils are equal, round, and reactive to light. Cardiovascular: Rate and Rhythm: Normal rate and regular rhythm. Pulses: Normal pulses. Heart sounds: Normal heart sounds. Pulmonary: Breath sounds: Normal breath sounds. Abdominal: General: Bowel sounds are normal. Palpations: Abdomen is soft. Musculoskeletal: General: Normal range of motion. Cervical back: Normal range of motion and neck supple. Skin: General: Skin is warm. Neurological: General: No focal deficit present. Mental Status: She is alert and oriented to person, place, and time. Psychiatric: Mood and Affect: Mood normal. Behavior: Behavior normal. WBC Date/Time Value Ref Range Status 04/29/2022 11:49 AM 6.0 4.4 - 11.3 x10E9/L Final 04/12/2022 12:16 PM 5.9 4.4 - 11.3 x10E9/L Final 01/18/2022 10:00 AM 5.8 4.4 - 11.3 x10E9/L Final nRBC Date Value Ref Range Status 02/11/2020 0.0 0.0 - 0.0 /100 WBC Final 05/10/2019 0.0 0.0 - 0.0 /100 WBC Final 11/09/2018 0.0 0.0 - 0.0 /100 WBC Final RBC Date Value Ref Range Status 04/29/2022 4.24 4.00 - 5.20 x10E12/L Final 04/12/2022 4.24 4.00 - 5.20 x10E12/L Final 01/18/2022 4.24 4.00 - 5.20 x10E12/L Final Hemoglobin Date Value Ref Range Status 04/29/2022 12.9 12.0 - 16.0 g/dL Final 04/12/2022 13.0 12.0 - 16.0 g/dL Final 01/18/2022 12.9 12.0 - 16.0 g/dL Final Hematocrit Date Value Ref Range Status 04/29/2022 41.0 36.0 - 46.0 % Final 04/12/2022 41.1 36.0 - 46.0 % Final 01/18/2022 39.5 36.0 - 46.0 % Final MCV Date/Time Value Ref Range Status 04/29/2022 11:49 AM 97 80 - 100 fL Final 04/12/2022 12:16 PM 97 80 - 100 fL Final 01/18/2022 10:00 AM 93 80 - 100 fL Final No results found for: MCH MCHC Date/Time Value Ref Range Status 04/29/2022 11:49 AM 31.5 (L) 32.0 - 36.0 g/dL Final 04/12/2022 12:16 PM 31.6 (L) 32.0 - 36.0 g/dL Final 01/18/2022 10:00 AM 32.7 32.0 - 36.0 g/dL Final RDW Date/Time Value Ref Range Status 04/29/2022 11:49 AM 14.0 11.5 - 14.5 % Final 04/12/2022 12:16 PM 13.8 11.5 - 14.5 % Final 01/18/2022 10:00 AM 14.0 11.5 - 14.5 % Final Platelets Date/Time Value Ref Range Status 04/29/2022 11:49 AM 268 150 - 450 x10E9/L Final 04/12/2022 12:16 PM 287 150 - 450 x10E9/L Final 01/18/2022 10:00 AM 272 150 - 450 x10E9/L Final No results found for: MPV Neutrophils % Date/Time Value Ref Range Status 01/18/2022 10:00 AM 54.7 40.0 - 80.0 % Final 12/26/2020 10:30 AM 50.1 40.0 - 80.0 % Final 12/22/2019 01:38 PM 52.2 40.0 - 80.0 % Final Immature Granulocytes %, Automated Date/Time Value Ref Range Status 01/18/2022 10:00 AM 0.3 0.0 - 0.9 % Final Comment: Immature Granulocyte Count (IG) includes promyelocytes, myelocytes and metamyelocytes but does not include bands. Percent differential counts (%) should be interpreted in the context of the absolute cell counts (cells/L). 12/26/2020 10:30 AM 0.0 0.0 - 0.9 % Final Comment: Immature Granulocyte Count (IG) includes promyelocytes, myelocytes and metamyelocytes but does not include bands. Percent differential counts (%) should be interpreted in the context of the absolute cell counts (cells/L). 12/22/2019 01:38 PM 0.0 0.0 - 0.9 % Final Comment: Immature Granulocyte Count (IG) includes promyelocytes, myelocytes and metamyelocytes but does not include bands. Percent differential counts (%) should be interpreted in the context of the absolute cell counts (cells/L). Lymphocytes % Date/Time Value Ref Range Status 01/18/2022 10:00 AM 33.4 13.0 - 44.0 % Final 12/26/2020 10:30 AM 39.4 13.0 - 44.0 % Final 12/22/2019 01:38 PM 37.2 13.0 - 44.0 % Final Monocytes % Date/Time Value Ref Range Status 01/18/2022 10:00 AM 8.7 2.0 - 10.0 % Final 12/26/2020 10:30 AM 7.5 2.0 - 10.0 % Final 12/22/2019 01:38 PM 7.0 2.0 - 10.0 % Final Eosinophils % Date/Time Value Ref Range Status 01/18/2022 10:00 AM 2.4 0.0 - 6.0 % Final 12/26/2020 10:30 AM 2.5 0.0 - 6.0 % Final 12/22/2019 01:38 PM 2.8 0.0 - 6.0 % Final Basophils % Date/Time Value Ref Range Status 01/18/2022 10:00 AM 0.5 0.0 - 2.0 % Final 12/26/2020 10:30 AM 0.5 0.0 - 2.0 % Final 12/22/2019 01:38 PM 0.8 0.0 - 2.0 % Final Neutrophils Absolute Date/Time Value Ref Range Status 01/18/2022 10:00 AM 3.18 1.60 - 5.50 x10E9/L Final 12/26/2020 10:30 AM 1.99 1.60 - 5.50 x10E9/L Final 12/22/2019 01:38 PM 3.22 1.20 - 7.70 x10E9/L Final No results found for: IGABSOL Lymphocytes Absolute Date/Time Value Ref Range Status 01/18/2022 10:00 AM 1.95 0.80 - 3.00 x10E9/L Final 12/26/2020 10:30 AM 1.57 0.80 - 3.00 x10E9/L Final 12/22/2019 01:38 PM 2.29 1.20 - 4.80 x10E9/L Final Monocytes Absolute Date/Time Value Ref Range Status 01/18/2022 10:00 AM 0.51 0.05 - 0.80 x10E9/L Final 12/26/2020 10:30 AM 0.30 0.05 - 0.80 x10E9/L Final 12/22/2019 01:38 PM 0.43 0.10 - 1.00 x10E9/L Final Eosinophils Absolute Date/Time Value Ref Range Status 01/18/2022 10:00 AM 0.14 0.00 - 0.40 x10E9/L Final 12/26/2020 10:30 AM 0.10 0.00 - 0.40 x10E9/L Final 12/22/2019 01:38 PM 0.17 0.00 - 0.70 x10E9/L Final Basophils Absolute Date/Time Value Ref Range Status 01/18/2022 10:00 AM 0.03 0.00 - 0.10 x10E9/L Final 12/26/2020 10:30 AM 0.02 0.00 - 0.10 x10E9/L Final 12/22/2019 01:38 PM 0.05 0.00 - 0.10 x10E9/L Final Comment: Automated WBC differential has been confirmed by manual smear. 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, invasive ductal carcinoma of the left breast in 1998, for which she underwent left radical mastectomy followed by reconstruction -It was ER neg, CA neg, and GTO3tar neg -She had received post-op chemotherapy but is unable to recall the names of these agents -She did not need radiation therapy -The implant did rupture at one point, and she needed this to be replaced - here for interval followup-moved to [facility] -last mammo was done in 12/24/2023 in [place]--breasts are heterogeneously dense which may obscure small masses; scattered benign appearing calcifications are present; no significant suspicious findings in either breast -labs done with PCP on 09/15/2023 reviewed wbc 5.1, hgb 12.1, plt 238,000, creatinine 0.59, calcium 9.4, ALT 17, AST 19, alk phos 87, ca 27.29 43.1 -serum iron 115--not sure what this was for as marker of body's iron stores is ferritin, not serum iron -she was given lab requisition slips for CBC, COMP, Ca 27.29 and iron panel + ferritin for next year -she went on a [email or web address] sponsored bus tour of [place]--she said she had to share a room with a crazy lady who was coughing on everyone; by the time the trip ended, Brigitte herself had gotten sick 2) osteoporosis -was on fosamax -was on prolia -now just on high dose vitamin D supplements 50,000 units once per week 3) dry eyes -on latisse 4) Peptic ulcer disease -has history of gastric ulcers -diagnosed in 2008, but subsequent EGD in 2017 revealed no abnormalities in her stomach. 5) fractured patella -while visiting a friend in [place] in January 2023--she saw her friend returning home, and ran through the house intending to open the front gate--she tripped on a landing and fractured her left kneecap--neither her friend nor her friend's wanted to take her to the ED so when she returned to [place] she went to the ER and had xrays done confirming fractured left patella--she worse a knee stabilizer/brace Problem List Items Addressed This Visit None Visit Diagnoses Codes Malignant neoplasm of central portion of right breast in female, estrogen receptor negative (Multi) - Primary C50.111, Z17.1 Relevant Orders Clinic Appointment Request Follow Up; CARLITO HORVATH; [facility] CBC and Auto Differential Comprehensive metabolic panel Cancer Antigen 27-29 Iron deficiency E61.1 Relevant Orders Iron and TIBC Ferritin Carlito Horvath MD documented in this encounter [facility] Work Phone: 01-16-2024 Instructions Carlito Horvath MD - 01/16/2024 10:40 AM EDT See you again in 1 year documented in this encounter [facility] Work Phone: 11-04-2023 Evaluation + Plan note Diagnostic Tests PendingUrine Culture 11/04/23 [facility] 10-06-2023 Hospital Discharge instructions Patient Education [...] provider. Document Revised: 11/22/2021 Document Reviewed: 11/22/2021 [employer] Patient Education 2022 [email or web address]. Follow Up Care 09/09/2023 14:36:29 With:JORJE FIGUEROA, Star Villavicencio, URL Address: [facility] [address] [place] [address] [phone] When: Unknown Comments:toro call pt to review updated path [facility] 08-25-2023 Hospital Discharge instructions Patient Education 08/25/2023 13:11:13 Urinary Tract Infection, Adult, Lzas-ih-Vsok Urinary Tract Infection, Adult A urinary tract [...] Follow these instructions at home: Medicines Take kqbi-acb-vsadzee and prescription medicines only as told by [...] provider. Document Revised: 02/23/2021 Document Reviewed: 02/23/2021 [employer] Patient Education 2022 [email or web address]. Follow Up Care 05/27/2023 09:36:14 With:JORJE FIGUEROA, Star Villavicencio, URL Address: [facility] [address], [place] [address] [phone] When: Unknown Comments:sched cysto/UD [facility] 03-28-2023 Note HNO ID: [id number] Author: Lawrence Medina MD Service: ? Author [...] forward with replacement surgery. Lawrence Medina MD [facility] 03-28-2023 History of Present illness Narrative Family [...] width 13 13.5, contracted breast ~11cm IMF-NAC 01/02 NA LEFT reconstructed breast- healed scar from [...] Lawrence Medina MD documented in this encounter [facility] 03-25-2023 Note HNO ID: [id number] Author: Gray Mcdonald RT(R) Service: Radiology Author Type: Technologist Type: Progress [...] RT Jennifer(R) March 25, 2023 1:36 PM [facility] 11-28-2022 Note PROCEDURE: XR KNEE L T [...] authenticated by: ILDEFONSO HO Date: 2022-11-28 18:01 [facility] 12-05-2021 History of Present illness Narrative [...] complaints of dyspnea (Reports SOB on exertion) [facility] Work Phone: 10-29-2021 History of Present illness [...] complaints of dyspnea (Reports SOB on exertion) [id number] Work Phone: 04-20-2021 History of Present illness [...] March [address] [facility] that demonstrated melanosis coli, two [...] 1 glass of wine daily. No illicits. [facility] [place] Work Phone: 03-31-2021 History of Present illness [...] experiencing symptoms. No associated symptoms are reported. [id number] Work Phone: 02-22-2021 History of Present illness Narrative BRIGITTE HIGH presents with complaints of joint pain, described as aching On a scale of 1 to 10, the patient rates the pain as 7 (Reports h/o generalized joint pain. Worsening x2 weeks)Associated symptoms include joint stiffness, morning stiffness and fatigue, but no fever and no chills.joint swelling [id number] Work Phone: 02-20-2021 History of Present illness Narrative BRIGITTE HIGH presents with complaints of joint pain, described as aching On a scale of 1 to 10, the patient rates the pain as 7 (Reports h/o generalized joint pain. Worsening x2 weeks)Associated symptoms include joint stiffness, morning stiffness and fatigue, but no fever and no chills.joint swelling [id number] Work Phone: 02-17-2021 History of Present illness [...] Hot shower in AM.[facility] back [facility] [employer] Work Phone: 12-28-2020 History of Present illness [...] Hot shower in AM.low back pain into butthaving bad constipation [id number] Work Phone: Evaluation + Plan note No data available for this section [facility] Evaluation note Diagnosis Breast pain- Primary Mastodynia Acquired breast deformity Other specified disorders of breast Capsular contracture of breast implant, initial encounter [facility] Onset Date Resolution Status Bronchitis acute [facility] Work Phone: Evaluation note* Diagnosis Malignant neoplasm of central portion of right breast in female, estrogen receptor negative (Multi)- Primary Iron deficiency Disorders of iron metabolism Postmenopausal osteoporosis Peptic ulcer disease Peptic ulcer, unspecified site, unspecified as acute or chronic, without mention of hemorrhage, perforation, or obstruction Dry eyes Unspecified tear film insufficiency Closed sleeve fracture of left patella, sequela documented in this encounter [facility] Work Phone: History of Present illness Narrative* [...] has living will. Patient has healthcare POA. [facility] [id number] Work Phone: History of Present illness NarrativePatient [...] and would like to become sexually active soon.[facility] Work Phone: history of Present illness NarrativePatient here for recheck of topical estrogen Rx use for severe atrophic vulvovaginitis. Patient stated she had a lot of spotting with using the applicator, she started having hot flashes and headaches and had to stop the topical estrogen. She has no further bleeding since stopping the medication. She has no new TABLEAU LEAD complaints. [facility] Work Phone: History of Present illness Narrative* Hand Swelling * C/o swelling to 1st finger and middle finger x1 week. * C/o joint aching. * Hands felt tight while wearing gloves. * Took OTC Diurex and Aspercreme, voiced mild improvement. [facility] [id number] Work Phone: History of Present illness Narrative* [...] has living will. Patient has healthcare POA. [id number] Work Phone: History of Present illness Narrative* [...] needed * All questions answered * . 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 Prachi winters Living Will 10/14/2014 Chief Complaint * every joint is hurting [...] gastro appt * had colonoscopy in [facility] * weight gain * eating healthy Referred [...] mammogram * dxa due * colooscopy 2016 10 year * pap age * depression screen [...] in 80 - due to AUB * 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 - DAMION Rodgers * sick since yesterday [...] section and content) DATE CREATED AUTHOR 01/31/2018 [facility] DATE CREATED AUTHOR AUTHOR'S ORGANIZ ATION 09/16/2018 [facility] DATE CREATED AUTHOR AUTHOR'S ORGANIZ ATION 11/26/2021 [facility] DATE CREATED AUTHOR AUTHOR'S ORGANIZ ATION 12/05/2022 [facility] DATE CREATED AUTHOR AUTHOR'S ORGANIZ ATION 01/21/2023 [facility] DATE CREATED AUTHOR AUTHOR'S ORGANIZ ATION 02/12/2023 [facility] DATE CREATED AUTHOR AUTHOR'S ORGANIZ ATION 02/12/2023 [employer] DATE CREATED AUTHOR AUTHOR'S ORGANIZ ATION 10/17/2023 [facility] DATE CREATED AUTHOR AUTHOR'S ORGANIZ ATION 10/21/2023 [facility] DATE CREATED AUTHOR AUTHOR'S ORGANIZ ATION 11/19/2023 [facility] DATE CREATED AUTHOR AUTHOR'S ORGANIZ ATION 01/20/2024 [facility] DATE CREATED AUTHOR AUTHOR'S ORGANIZ ATION 01/21/2024 [facility] DATE CREATED AUTHOR AUTHOR'S ORGANIZ ATION 06/04/2024 [facility] DATE CREATED AUTHOR AUTHOR'S ORGANIZ ATION 09/14/2024 [facility] Source Comments (unrecognize d section and content) In the event this informatio n is protected by the Federal Confidentiality of Alcohol and Drug Abuse Patient Records regulations: The Federal rules restrict any use of the information to criminally investigate or prosecute any alcohol or drug abuse patient.[facility] Reason for Visit (unrecogniz ed section and content) Reason Comments New Patient Evaluation Patient states ramires s possible implant leak. Reason Comments Follow-up Care Teams (unrecognized sec tion and content) [employer] Consultant Relationship Specialty Start Date End Date Jing Campbell DO [address] [place] [id number] PCP - General 03/28/15 Team Status: Active Member Role Status Dates Kristyn Dougherty NP-C Primary Care Provider Active Team Status: Inactive Member Role Status Dates Star Recinos MD Attending Provider Active St art: September 25, 2023 End: September 25, 2023 Team Status: Inactive Member Role Status Dates Suha Goel APRN Attending Provider Active S tart: December 21, 2023 End: December 21, 2023 Kristyn Dougherty NP-C Primary Care Provider Active Start: December 21, 2023 End: December 21, 2023 Ux Consultant Relationship Specialty Start Date End Date Kristyn Dougherty APRN-DISABILITY AIDE [address] [place] [address] PCP - General 12/10/22 [place] [id number] [facility] [address] [place] [address] Consulting Physician Hematology and Oncology 09/16/23 Goals (unrecognized section and content) Goals may [...] BE BASED ON THE PRIMARY CLINICAL RECORDS. [facility] [employer] [facility] provides no warranty or guarantee of the accuracy or completeness of information in this document.
== END 2024-09-15 12:20 | disposition home or self-care (01) ==
PROVIDERS: PCP Nurse Practitioner Family; Visit Provider Nurse Practitioner Family
DX: I96 Gangrene, not elsewhere classified (principal)
CPT/HCPCS: 93923

== ENCOUNTER 2024-11-09 09:38 | Outpatient (OUT) | payer MEDICARE, OTHER, SELFPAY ==
--- OUTSIDE RECORDS SUMMARY | 2024-11-09 10:00 | XMS_ITS | CCD ---
Author Organization [facility] Care Team Providers Care Motorcycle Deliverer Name Role Phone Adrian, Jing Unavailable Unavailable Adrian, Jing Unavailable Unavailable Adrian, [...] Attending Unavailable MD Star Recinos Attending Provider [phone] CARLITO HORVATH Attending Unavailable LADONNA, KRISTYN S [...] Attending Unavailable Ladonna, Kristyn Referring Unavailable Ladonna APPLICATION SECURITY DEVELOPER-CATHY Kristyn S Primary Care Provider Carlito Horvath MD Unavailable [phone] Ladonna MORGAN Kristyn S Primary Care Provider [phone] Star RECINOS Attending Unavailable Star RECINOS Attending Unavailable Star RECINOS Attending Unavailable Star RECINOS Attending Unavailable Star RECINOS Attending Unavailable Star RECINOS Attending Unavailable Unavailable Primary Care Provider Unavailabl e Allergies Allergy Classification Reported Allergen(s) Allergy Type Date of Onset Reaction(s) Facility Acetaminophen (9 sources) Acetaminophen; Translations: [Tylenol] Drug Allergy PO-TVCM-Szpb 2535A Work Phone: (20 sources) Acetaminophen; Translations: [Tylenol] Drug Allergy Tinnitus (finding) [facility] (20 sources) Codeine; Translations: [Codeine Derivatives] Drug Allergy 3 Unknown, Other (See Comments) SS-TVFQ-Jgcv 2535A Work Phone: (15 sources) Mold Extract Drug Allergy CU-QCIF-Cjaz 2535A Work Phone: (15 sources) [place] mold Allergy to substance (finding) HU-NTTC-Vczw 2535A Work Phone: (5 sources) Animal dander - Cats Allergy to substance (finding) BI-LCLG-Lybt 2535A Work Phone: (9 sources) Acetaminophen; Translations: [ACETAMINOPHEN] Drug Allergy 3 Other: See Comments, Unknown, Other (See Comments), Tinnitus [facility] (2 sources) Codeine; Translations: [CODEINE] Drug Allergy 3 [facility] (1 source) Environmental Allergies: Uncoded; Translations: [Environmental Allergies: Uncoded] Propensity to adverse reactions (disorder) 4 [facility] (1 source) cat dander Drug allergy (disorder) 4 [facility] Medications Current Medications Medication Drug [...] day(s), # 30 tab(s), Refills(s) 1, Pharmacy: [id number]/pharmacy #[id number], 165, cm, 08/25/23 12:11:00 EST, [...] 3 Ordered: 29-Oct-2021 Jing Campbell DO Active Biotin (2 sources) BIOTIN ORAL Take by mouth. Active calcium carbonate 1500 mg oral tablet (1 source) take 1 tablet by mouth in the morning, then take 1 tablet by mouth at mealtime calcium carbonate (OS-JAMESON) 600 mg elemental (1,500 mg) tablet Take 1 tablet (600 mg total) by mouth in the morning and 1 tablet (600 mg total) in the evening. Take with meals. Active calcium carbonate 1500 mg / cholecalciferol 200 unt oral tablet (4 sources) Vitamin D Start: 03-28-20 15 take 1 tablet by mouth once daily calcium carbonate 600 mg-cholecalciferol 200 units (CALCIUM 600 + D,3,) 600 mg(1,500mg) -200 unit tab Take 1 tablet by mouth once daily. 03/28/2015 Active Comment on above: Take 1 tablet by sophia th once daily. Calcium Citrate / Vitamin D (4 sources) Start: 08-25-19 24 calcium-vitamin D Refill(s) 0 Start Date: 08/25/23 Status: Ordered cholecalciferol 0.05 mg oral tablet (20 sources) Vitamin D Start: 07-10-20 20 take 1 tablet by mouth once daily cholecalciferol (Vitamin D-3) 50 MCG (2000 UT) tablet Take 1 tablet (2,000 Units) by mouth once daily. 07/10/2020 Active clopidogrel 75 mg oral tablet (1 source) P2Y12 Platelet Inhibitor Start: 10-22-19 25 take 1 tablet by mouth in the morning clopidogreL (PLAVIX) 75 mg tablet Take 1 tablet (75 mg total) by mouth in the morning. 60 tablet 3 10/21/2024 Active Start: 10-21-2024 take 1 tablet by sophia th in the morning clopidogreL (PLAVIX) 75 mg tablet Take 1 tablet (75 mg total) by mouth in the morning. 60 tablet 3 10/21/2024 Active pjbhvi-pcqpyxfs-xdofufzibe d is (NEURIVA DE-STRESS) 100-200-10 mg capsule (1 source) take 1 tablet by mouth in the morning ywwyoc-kgjfpclw-ugfglwzlmj dis (NEURIVA DE-STRESS) 100-200-10 mg capsule Take 1 tablet by mouth in the morning. Active doxycycline hyclate 100 mg o ral capsule (16 sources) Tetracycl ine-class Drug Star t: 04-0 11-14 doxycycline (Vibramycin) 100 mg capsule Take by [...] Twice daily 14 December 21, 2023 12:00am lubiprostone 0.024 mg oral capsule (1 source) Chloride Channel Activator Start: 09-21-2024 take 1 capsule by mouth twice daily at mealtime lubiprostone (AMITIZA) 24 mcg capsule Take 1 capsule by mouth two times a day with meals. 60 capsule 5 09/21/2024 Active methylPREDNISolone 4 mg oral tablet (2 sources) [...] Refills(s) 0 Start Date: 10/06/23 Status: Ordered wktikxpa-eue-gupce acid-lutein 0.4-250 mg-mcg tablet (1 source) take 1 tablet by mouth once in the morning vfhwuqum-iqz-sgsy c acid-lutein 0.4-250 mg-mcg tablet Take 1 tablet by mouth in the morning. Active multivitamin (DAILY MULTIPLE) tablet (4 sources) Start: 03-28-2015 take 1 tablet by mouth once daily multivitamin (DAILY MULTIPLE) tablet Take 1 tablet by mouth once daily. 0 03/28/2015 Active Comment on above: Take 1 tablet by sophia once daily. multivitamin with iron (4 sources) Start: 08-25-2023 [...] Ordered: 21-Nov-2022 DO Start : 21-Nov-2022 Active plecanatide 3 mg oral tablet (2 sources) Start: 09-21-2024 take 1 tablet by mouth once daily plecanatide (TRULANCE) 3 mg tablet Take 1 tablet by mouth once daily. 30 tablet 5 09/21/2024 Active rosuvastatin calcium 5 mg oral tablet (1 source) HMG-CoA Reductase Inhibitor Start: 10-21-2024 take 1 tablet by mouth in the morning rosuvastatin (CRESTOR) 5 mg tablet Take 1 tablet (5 mg total) by mouth in the morning. 30 tablet 3 10/21/2024 Active Start: 10-21-2024 take 1 tablet by sophia th in the morning rosuvastatin (CRESTOR) 5 mg tablet Take 1 tablet (5 mg total) by mouth in the morning. 30 tablet 3 10/21/2024 Active sennosides, care home 8.6 mg oral tablet (20 sources) Start: 04-04-2021 sennosides (Se nokot) 8.6 mg tablet 8 tablets (68.8 mg) once daily at bedtime. 04/04/2021 Active Turmeric extract (3 sources) take 1 tablet by mouth in the morning TURMERIC ORAL Take 1 tablet by mouth in the morning. Active TURMERIC ORAL Ta ke by mouth. Active vit B complex 100 combo no.2 [...] 0 Refills: 0 Ordered: 30-Apr-2019 DO Active cefdinir 300 mg oral capsule (2 sources) [...] by insurance ibuprofen 600 mg oral tablet (5 sources) Nonsteroidal Anti-inflammatory Drug Start: 11-20-2022 Ibuprofen 600 MG Oral Tablet Quantity: 100 Refills: 0 Ordered: 20-Nov-2022 DO Start : 20-Nov-2022 Active take 1 tablet by sophia th every eight hours as needed ibuprofen (MOTRIN) 600 mg tablet Take 1 tablet (600 mg total) by mouth every 8 (eight) hours as needed. Active linaclotide 0.29 mg oral capsule (3 sources) Guanylate Cyclase-C Agonist Start: 04-20-2021 take 1 capsule by mouth once daily Linzess 290 MCG Oral Capsule TAKE 1 CAPSULE Daily Quantity: 90 Refills: 3 Ordered: 20-Apr-2021 Allyn Ba PA-C Start : 20-Apr-2021 Active meloxicam 15 mg oral tablet (7 sources) Nonsteroidal Anti-inflammator y Drug Start: 02-26-2021 take 1 tablet by [...] Jing Campbell DO Start : 29-Oct-2021 Active Multivitamin Oral Tablet (10 sources) Start: 02-20-2021 [...] Start : 14-Oct-2022 Active polyethylene glycol 3350 860982 mg / potassium chloride 2970 mg / sodium bicarbonate 6740 mg / sodium chloride 5860 mg / sodium sulfate 39385 mg powder for oral solution (2 sources) [...] 3 Quantity: 30 Refills: 0 Ordered: 20-Feb-2021 Adrian Jing Start : 20-Feb-2021 Active Start: 12-27-2020 take 4 tablets by mo [facility] once daily, then take 3 tablets [...] 21-Apr-2019 Active topiramate 25 mg oral tablet (3 sources) Start: 03-28-2015 End: 09-21-2024 take 1 tablet by mouth twice daily topiramate (TOPAMAX) 25 mg tablet Take 1 tablet by mouth twice daily. 0 03/28/2015 09/21/2024 Discontinued Comment on above: Take 1 tablet by [facility] twice daily. 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 Chronic Calculus of urinary tract (4 sources) Kidney [...] other medications] Episodic Other aftercare (2 sources) terminal manager (current) use of non-steroidal anti-inflammatories (NSAID); Translations: [terminal manager (current) use of non-steroidal anti-inflammatories (NSAID)] Onset: 02-04-2024 Episodic Other and unspecified benign neoplasm (1 source) History of polyp of colon; Translations: [History of colon polyps] 09-21-2024 Episodic Other connective tissue disease (20 sources) [...] Onset: 09-05-2022 09-05-2022 Episodic Other gastrointestinal disorders (20 sources) Alteration [...] Episodic Other nutritional; endocrine; and metabolic disorders (4 sources) Lipodystrophy; Translations: [Lipodystrophy, not elsewhere classified] Onset: [...] [Other seasonal allergic rhinitis] Onset: 01-17-2023 Chronic Peripheral and visceral atherosclerosis (4 sources) Peripheral vascular disease, unspecified; Translations: [Peripheral vascular disease, unspecified] Onset: 10-21-2024 10-21-2024 Chronic Residual codes; unclassified (20 sources) Sleep [...] states; Translations: [Other specified postprocedural states] Onset: 07-10-2024 Episodic Screening and history of mental health [...] disorders] Resolved: 01-07-2022 Episodic Other gastrointestinal disorders (3 sources) Altered [...] Onset: 05-07-2018 Episodic Unclassified (1 source) M54.16 35102 Onset: 10-18-2017 Unclassified (1 source) Patient encounter [...] Test Name Value Interpretation Reference Range Facility Ambulatory Visit Summaryon 0 10-18-2024 Ambulatory Visit Summary Ambulatory Visit Summary BRIGITTE HIGH :1950 Visit Date:10/18/2024 Ambulatory Visit Instructions Your Diagnosis Urethral caruncle Incomplete bladder emptying History of UTI Kidney stones Former smoker Your Care Team Attending Physician - JORJE FIGUEROA, Star Villavicencio Primary Care Physician - LADONNA MORGAN, KRISTYN Marie This Is Your Medications List Contact prescribing physician if questions or concerns calcium-vitamin D elderberry (elderberry oral liquid) mirabegron (Myrbetriq 50 mg oral tablet, extended release) multivitamin with iron phentermine (Adipex-P) [Image Removed: STOP]Stop taking these medications ciprofloxacin (Cipro 500 mg Tab) Procedures Performed Carpal tunnel release, CE - Cataract extraction, Extraction of wisdom tooth, History of total hysterectomy with bilateral salpingo-oophorectomy, Mastectomy, Procedure on back, Procedure on neck. Discharge Vitals Heart Rate (Peripheral) 72 Respiratory Rate 18 Blood Pressure 130/82 Height 165 cm Height 65 in Weight 72 kg Weight 158.733 lb BMI 26.45 What to do next Scheduled Follow-Up Appointments Friday 8:15 AM EDT With: Star RECINOS MD Where: [facility] [address] [facility] [place] [address]- You Need to Schedule the Following Appointments Follow Up with Star RECINOS MD, URL When: Where: [facility] [address], [place] [address]- [phone] Medications What How Much When Instructions Unchanged calcium-vitamin D Contact prescribing physician if questions or concerns Unchanged elderberry (elderberry oral liquid) Contact prescribing physician if questions or concerns Unchanged mirabegron (Myrbetriq 50 mg oral tablet, extended release) Contact prescribing physician if questions or concerns Unchanged multivitamin with iron Contact prescribing physician if questions or concerns Unchanged phentermine (Adipex-P) Every day Contact prescribing physician if questions or concerns What How Much When Comments Stop Taking ciprofloxacin (Cipro 500 mg Tab) 1 Tablets By Mouth Every day Take 1 tablet the day before the procedure and 1 tablet after the procedure Medications and Immunizations Administered Given lidocaine Top 2% Gel w/Appl 6 mL, 6 mL, Topical. For: Urethral caruncle Allergies Tylenol (Ringing in ears) Problems Ongoing - Any problem that you are currently receiving treatment for. Anemia Arthritis Deafness Flank pain Former smoker Headache History of UTI Hx of breast cancer Incomplete bladder emptying Kidney stones Urethral caruncle UTI (urinary tract infection) Patient Survey You may receive a survey via text or e-mail asking about your office visit. Please share your experience with us by completing your survey. We appreciate your feedback and thank you for choosing us for your care. Education Materials Cystoscopy Cystoscopy is a procedure that is used to help diagnose and sometimes treat conditions that affect the lower urinary tract. The lower urinary tract includes the bladder and the urethra. The urethra is the tube that drains urine from the bladder. Cystoscopy is done using a thin, tube-shaped instrument with a light and camera at the end (cystoscope). The cystoscope may be hard or flexible, depending on the goal of the procedure. The cystoscope is inserted through the urethra, into the bladder. Cystoscopy may be recommended if you have: ??? Urinary tract infections that keep coming back. ??? Blood in the urine (hematuria). ??? An inability to control when you urinate (urinary incontinence) or an overactive bladder. ??? Unusual cells found in a urine sample. ??? A blockage in the urethra, such as a urinary stone. ??? Painful urination. ??? An abnormality in the bladder found during an intravenous pyelogram (IVP) or CT scan. Cystoscopy may also be done to remove a sample of tissue to be examined under a microscope (biopsy). Tell a health care provider about: ??? Any allergies you have. ??? All medicines you are taking, including vitamins, herbs, eye drops, creams, and tiub-yaf-cezzoqy medicines. ??? Any problems you or family members have had with anesthetic medicines. ??? Any blood disorders you have. ??? Any surgeries you have had. ??? Any medical conditions you have. ??? Whether you are or may be . What are the risks? Generally, this is a safe procedure. However, problems may occur, including: ??? Infection. ??? Bleeding. ??? Allergic reactions to medicines. ??? Damage to other structures or organs. What happens before the procedure? Medicines Ask your health care provider about: ??? Changing or stopping your regular medicines. This is especially important if you are taking diabetes medicines or blood thinners. ??? Taking medic (more content not included)... Normal [facility] Urology Office/Clinic Noteon 10-18-2024 Urology Office/Clinic Note Urology Office/Clinic Note Chief Complaint cystoscopy HPI Staff 73 yr old here for cystoscopy. Dx: UTI, left flank pain, urethral caruncle, incomplete bladder emptying and former smoker. History of Present Illness Tests reviewed: none I have reviewed the previous health record [...] HPI. Physical Exam Vitals & Measurements HR: 72(Peripheral) RR: 18 BP: 130/82 HT: 165 cm HT: 65 in WT: 158.733 lb WT: 72 kg BMI: 26.45 General Appearance: alert , no acute distress, well nourished, well developed female. Procedure Operative Information Anesthesia Type: Local Procedure: Local Cystoscopy Complications: None Surgical risks, benefits, details of the procedure have been explained to the patient. Full informed consent has been obtained. Intraoperative Information Prepped: Patient is brought back to the endoscopy suite. Patient is placed in modified dorso/lithotomy position. Patient prepped in the usual fashion with Betadine solution. 2% Xylocaine Jelly is placed per Urethra. After waiting several minutes, the Cystoscope is introduced. The Urethra is: Mild regrowth of lesion on posterior and lateral aspects of urethral meatus. no inflammation or bleeding. The Bladder: No tumors or stones, Trabeculated: Moderate (2) The Ureteral orifices: Show efflux of clear urine Specimens Removed: None Removal: Cystoscope is removed. The patient tolerated it well. Postoperative Information Patient is discharged home with antibiotic coverage. Follow up arranged. Assessment/Plan 1. 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 High grade trabeculation. No leakage with Valsalva maneuver. S/p Cysto/Excision of urethral prolapse 09/25/23. 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 S/p Cysto 05/03/24 - Slight regrowth of lesion on posterior aspect of urethral meatus. No b.t. or stones. Moderate bladder trabeculations. Pt had IO cysto wo complications today to check for further regrowth. Pt took prophylactic abx prior to procedure. Found to have mild regrowth today. -Cysto in 6 mos to reevaluate 2. Incomplete bladder emptying (R33.9: Retention of urine, unspecified) PVR 08/25/23 - [address] AP wo con 08/26/23 [facility] - Moderate fluid distention of bladder. No abnormalities. 3. History of UTI (Z87.440: Personal history of urinary (tract) infections) Hx of breast cancer, tx'd w/ mastectomy. Tried estrogen cream and hormone cream but had SE of irritation on hormone replacement therapy. [1] 4. Kidney stones (N20.0: Calculus of kidney) CT AP wo con 08/26/23 [facility] - Punctate bilateral nonobstructing nephrolithiasis. No hydro. [2] 5. Former smoker (Z87.891: Personal history of nicotine dependence) Quit at age 56. Risk factor for urothelial ca. [3] Follow-up With When Contact Information JORJE FIGUEROA, Star Villavicencio, URL [facility] [address], [place] [address]- [phone] Additional Instructions: 6 mos cysto Patient Education Cystoscopy I, Pari Anton, personally scribed for Dr. Recinos on 10/18/2024 09:07:03. . Documentation recorded by the scribePari, accurately reflects the services(s) I performed and decisions made by me. Authenticated by Dr. Recinos on 10/18/2024 09:11:00. Problem List/Past Medical History Ongoing Anemia Arthritis Deafness Flank pain Former smoker Headache History of UTI Hx of breast cancer Incomplete bladder emptying Kidney stones Urethral caruncle UTI (urinary tract infection) Historical No qualifying data Procedure/Surgical History Carpal tunnel release, CE - Cataract extraction, Extraction of wisdom tooth, History of total hysterectomy with bilateral salpingo-oophorectomy, Mastectomy, Procedure on back, Procedure on neck. Medications Adipex-P, Oral, Daily calcium-vitamin D elderberry oral liquid multivitamin with iron Myrbetriq 50 mg oral tablet, extended r (more content not included)... Normal [facility] Comment on above: Result Comment: Elec tronically Signed By: JORJE FIGUEROA, Star Villavicencio\.br\Date and Time Signed: 10/18/24 09:11 EDT\.br\Electronically Co-Signed By: Pari Anton\.gregorio\Date and Time Co-Signed: 10/18/24 09:07 EDT Reminderson 09-09-2024 Reminders Reminders From: Daniella Green To: [facility] - Recalls Recinos; Sent: 05/20/2024 16:30:34 EDT Show up: 08/28/2024 16:30:00 EST Subject: cysto, 6 mo Due Date/Time: 09/20/2024 16:30:00 EST Reminder/Recall Patient needs sched for 6 month cysto in October 2024, pt prefers [facility] l/m on cell vm.[facility] l/m on cell vm.[facility] Patient called back, sched for 11/15/24 at [facility] Normal [facility] Plastic Surgery Visit Report on 06-02-2024 Plastic Surgery Visit Report [facility] Plastic Reconstructive Surgery [address], [address] [place] [id number] OFFICE VISIT Date of Service: 06/02/24 MR#: [id number] Acct: [id number] Name: BRIGITTE HIGH Rep #: [id number] : 1950 Provider: Dr. Jadyn mccall MD Age/Sex: 73/F Location: [facility] Status: Signed Intake Vital Signs 04/21/24 11:00 [...] PO Q6H PRN pain 01/20/24 06/02/24 History clrphenxpyqx-Cc-tyhi-mine rals 1 tab PO DAILY 01/20/24 06/02/24 History vitamin C 45 mg-zinc citrate 3.75 1 tab PO DAILY 01/20/24 06/02/24 History mg-elderberry 50 mg chewable tablet (PlumWillow) calcium 600 mg (as 1 tab PO [...] of reduction surgery of right breast Z98.890 [facility] Medical History Wears hearing aid Wears [...] needed. 06/02/24 1748 Date Jadyn Chavez MD Cosign Signature: Date (if applicable) CC: Normal [facility] Plastic Surgery Visit Report on 05-05-2024 Plastic Surgery Visit Report [facility] Plastic Reconstructive Surgery [address] [place] [address], [address] [place] [address] OFFICE VISIT Date of Service: 05/05/24 MR#: [id number] Acct: [id number] Name: BRIGITTE HIGH Rep #: [id number] : 1950 Provider: Dr. Jadyn mccall MD Age/Sex: 73/F Location: [facility] Status: Signed Intake Vital Signs 04/21/24 11:00 [...] PO Q6H PRN pain 01/20/24 04/21/24 History flntwdfoatar-Gm-uvtb-mine rals 1 tab PO DAILY 01/20/24 05/05/24 History vitamin C 45 mg-zinc citrate 3.75 1 tab PO DAILY 01/20/24 05/05/24 History mg-elderberry 50 mg chewable tablet (PlumWillow) calcium 600 mg (as 1 tab PO [...] healing T14.8XXD Status post breast reconstruction Z98.890 [facility] Medical History Wears hearing aid Wears [...] Additional Comments: Follow-up in 1 month 05/05/24 3958 Date Jadyn Chavez MD Cosigner Signature: Date (if applicable) CC: Normal [facility] Plastic Surgery Visit Report on 04-21-2024 Plastic Surgery Visit Report [facility] Plastic Reconstructive Surgery [address], [address] [place] [address] OFFICE VISIT Date of Service: 04/21/24 MR#: [id number] Acct: [id number] Name: BRIGITTE HIGH Rep #: [id number] : 1950 Provider: Dr. Jadyn mccall MD Age/Sex: 73/F Location: [facility] Status: Signed Intake Vital Signs [...] PO Q6H PRN pain 01/20/24 04/21/24 History likgnizbwpqv-Ms-fwbb-mine rals 1 tab PO DAILY 01/20/24 04/21/24 History vitamin C 45 mg-zinc citrate 3.75 1 tab PO DAILY 01/20/24 04/21/24 History mg-elderberry 50 mg chewable tablet (PlumWillow) calcium carbonate 600 mg-vitamin 1 tab PO [...] healing T14.8XXD Status post breast reconstruction Z98.890 [facility] Medical History Wears hearing aid Wears [...] Cosigner Signature: Date (if applicable) CC: Normal [facility] Plastic Surgery Visit Report on 03-31-2024 Plastic Surgery Visit Report [facility] Plastic Reconstructive Surgery [address] [facility], [address] [place] [address] OFFICE VISIT Date of Service: 03/31/24 MR#: [id number] Acct: [id number] Name: BRIGITTE HIGH Rep #: [id number] : 1950 Provider: Dr. Jadyn mccall MD Age/Sex: 73/F Location: [facility] Status: Signed Intake Vital Signs [...] PO Q6H PRN pain 01/20/24 03/31/24 History zctushchpjld-Xq-rtry-mine rals 1 tab PO DAILY 01/20/24 03/31/24 History vitamin C 45 mg-zinc citrate 3.75 1 tab PO DAILY 01/20/24 03/31/24 History mg-elderberry 50 mg chewable tablet (PlumWillow) calcium carbonate 600 mg-vitamin 1 tab PO [...] of reduction surgery of right breast Z98.890 [facility] Medical History Wears hearing aid Wears [...] weeks. 03/31/24 1646 Date Jadyn Chavez MD Cosigner Signature: Date (if applicable) CC: Normal [facility] Plastic Surgery Visit Report on 03-17-2024 Plastic Surgery Visit Report [facility] Plastic Reconstructive Surgery [address], [address] [place] [address] OFFICE VISIT Date of Service: 03/17/24 MR#: [id number] Acct: [id number] Name: BRIGITTE HIGH Rep #: [id number] : 1950 Provider: Dr. Jadyn mccall MD Age/Sex: 73/F Location: [facility] Status: Signed Intake Vital Signs 01/20/24 10:05 [...] PO Q6H PRN pain 01/20/24 03/17/24 History xkmxhnlyksbe-Lt-ulpf-mine rals 1 tab PO DAILY 01/20/24 03/17/24 History vitamin C 45 mg-zinc citrate 3.75 1 tab PO DAILY 01/20/24 03/17/24 History mg-elderberry 50 mg chewable tablet (PlumWillow) calcium carbonate 600 mg-vitamin 1 tab PO [...] Op Diagnoses Status post breast reconstruction Z98.890 [facility] Medical History Wears hearing aid Wears [...] interim with any questions or problems 03/17/24 0622 Date Jadyn Chavez MD Cosigner Signature: Date (if applicable) CC: Normal [facility] Plastic Surgery Visit Report on 03-10-2024 Plastic Surgery Visit Report [facility] Plastic Reconstructive Surgery [address], [address] [place] [address] OFFICE VISIT Date of Service: 03/10/24 MR#: [id number] Acct: [id number] Name: BRIGITTE HIGH Rep #: [id number] : 1950 Provider: Dr. Jadyn mccall MD Age/Sex: 73/F Location: [facility] Status: Signed Intake Vital Signs [...] PO Q6H PRN pain 01/20/24 03/10/24 History qkppbtimpqan-Cp-gfoz-mine rals 1 tab PO DAILY 01/20/24 03/10/24 History vitamin C 45 mg-zinc citrate 3.75 1 tab PO DAILY 01/20/24 03/10/24 History mg-elderberry 50 mg chewable tablet (Elderberry Generous Deals) calcium carbonate 600 mg-vitamin 1 tab PO [...] Global Post Op Diagnoses Breast asymmetry between [place] breast and reconstructed breast N65.1 Status post left breast reconstruction Z98.890 History of reduction surgery of right breast Z98.890 [facility] Medical History Wears hearing aid Wears [...] Assessment and Plan (1) Breast asymmetry between [place] breast and reconstructed breast: Status: Acute (2) Status post left breast reconstruction: Status: Acute (3) History of reduction surgery of right breast: Status: Acute Plan Details Additional Comments: She is to follow-up in 1 week for recheck. She is encouraged to call in the interim with any problems. Her limitations were reviewed with her and her daughter 02/25 (more content not included)... Normal [facility] Discharge Instructionon Discharge Instruction [facility] Medical Records Department [address] [place] [address] Instructions for Home/Discharge Instructions 03/04/24 1123 MR#: [id number] Acct: [id number] Name: BRIGITTE HIGH Rep #: [id number] : 1950 73 From: Jadyn Chavez MD PCP: DOUG Brown Status:REG [facility] Discharge Instructions Dressing / Incision Additional Dressing/Incision [...] Care Provider: Kristyn Dougherty Instructions Print Language: Afghan Discharge Orders/Prescriptions Prescriptions: No Action ibuprofen 600 mg tablet 600 mg PO Q6H PRN (Reason: pain) ypozslydcihp-Yk-kgnx-mine rals Tablet 1 tab PO DAILY Neuriva Original 100-100 mg capsule 1 cap PO DAILY [facility] 45-3.75-50 mg tablet,chewable 1 tab PO [...] Care 03/04/24 1124 Jadyn Chavez MD CC: MACHINE CUTTERIglesiaC Kristyn Dougherty Signed Normal [facility] Discharge Instruction [facility] Medical Records Department [address] [place] [address] Instructions for Home/Discharge Instructions 03/04/24 112 MR#: [id number] Acct: [id number] Name: BRIGITTE HIGH Rep #: [id number] : 1950 73 From: Jadyn Chavez MD PCP: DOUG Brown Status:DEP [facility] Discharge Instructions Dressing / Incision Additional Dressing/Incision [...] Care Provider: Kristyn Dougherty Instructions Print Language: Afghan Discharge Orders/Prescriptions Prescriptions: No Action ibuprofen 600 mg tablet 600 mg PO Q6H PRN (Reason: pain) spxhvqguraoy-Wj-ioir-mine rals Tablet 1 tab PO DAILY Neuriva [...] Jadyn Chavez MD CC: DOUG Dougherty Signed Normal [facility] MR/POSTOP.ANEon 03-04-2024 MR/POSTOP.ANE [facility] Medical Records Department [address] [place] [address] Anesthesia Postop Eval I 03/04/24 1122 MR#: [id number] Acct: [id number] Name: AYLINBRIGITTE HOPKINS Rep #: [id number] : 1950 73 From: Hyun Hernandez PCP: DOUG Brown Status:REG SDC Y Race: C Location: [place] [address] Anesthesia: Postop Eval I Current Vital Signs [...] Date Hyun Houston Signature: Date CC: Signed Normal [facility] MR/TKAUPIDZ8fj 03-04-2024 [facility] Medical Records Department [address] [place] [address] Anesthesia Postop Eval II 03/04/24 1146 MR#: [id number] Acct: [id number] Name: BRIGITTE HIGH Rep #: [id number] : 1950 73 From: Julito Domingo MD PCP: DOUG Brown Status:REG SDC Y Race: C Location: [place] [address] Anesthesia Postop Eval I Sum Anesthesia Postop [...] MD Cosigner Signature: Date CC: Signed Normal [facility] Operative Reporton 4 Operative Report [facility] Medical Records Department [address] [place] [address] Operative Report 03/04/24 1124 MR#: [id number] Acct: [id number] Name: BRIGITTE HIGH Rep #: [id number] : 1950 73 From: Jadyn Chavez MD PCP: Kristyn Dougherty NP-C Status:[facility] Location: [facility] Report of Operation Date of Procedure: 03/04/24 Pre-Operative Diagnosis: Asymmetry between the right [place] breast and the left reconstructed breast; Right [...] clips. This is further reinforced with some fpgaul-pl-dndbh Vicryl sutures. The skin edges were then [...] Documentation VTE Mechan Device Prophylaxis: SCD's 03/04/24 6773 Cosigner Signature (if applicable): CC: DOUG Dougherty; Dr. Jadyn Chavez MD Signed Normal [facility] Surgery Specimen Level Franky 03-04-2024 Surgery Specimen Level IV Patient Age/Sex Location Account Attending Physician BRIGITTE HIGH 73/F [facility] [id number] Dr. Jadyn Chavez MD Specimen: [id number] Received: 03/04/24 Status: MEHREEN Tavarez Num: [id number] Spec Type: Lesion Subm Dr: Dr. Jadyn Chavez MD HEADER OPERATION: Right breast lift and revision left breast reconstruction PRE-OP DIAGNOSIS: Breast asymmetry between [place] breast and reconstructed breast, painful periwound skin, ptosis of right breast, status post left breast reconstruction, history of breast cancer in adulthood TISSUE SUBMITTED: Right breast tissue and skin MICROSCOPIC DIAGNOSIS Right breast tissue and skin, revision left breast reconstruction: Skin with underlying tissue and scant fragments of benign breast tissue, no pathologic diagnosis. [facility] 03/05/2024 MICROSCOPIC DESCRIPTION Slides are reviewed. GROSS [...] Sections do not reveal any mass lesions. Radio Installer sections are submitted in two cassettes. [facility] 03/04/2024 TC:4 CPT:70670 Patient Age/Sex Location Account Attending Physician BRIGITTE HIGH 73/F [facility] [id number] Dr. Jadyn Chavez MD Signed (signature on file) Dr. Cy Sandhu MD 03/05/24 1101 Normal [facility] Comment on above: Performed By: #### P SUIV ####[facility] [address] [place], [address] Basic Metabolic Profile (BMP )on 02-18-2024 BUN/CRE 32.4 RATIO High 10-20 [facility] Comment on above: Order Comment: pre s urgery testing Performed By: #### L 300.4310, L500.2500, L300.3900, L100.0500 ####[facility] [address] [place], [address] CA,Total 9.3 mg/dL Normal 8.5-10.1 [facility] Comment on above: Order Comment: pre s urgery testing Performed By: #### L 300.4310, L500.2500, L300.3900, L100.0500 ####[facility] [address] [place], [address] Chloride [Moles/Vol] 109 mmol/L High 98-107 [facility] Comment on above: Order Comment: pre s urgery testing Performed By: #### L 300.4310, L500.2500, L300.3900, L100.0500 ####[facility] [address] [place], [address] CO2 [Moles/Vol] 23.0 mmol/L Normal 21.0-32.0 [facility] Comment on above: Order Comment: pre s urgery testing Performed By: #### L 300.4310, L500.2500, L300.3900, L100.0500 ####[facility] [address] [place], [address] Creatinine [Mass/Vol] 0.68 mg/dL Normal 0.55-1.02 [facility] Comment on above: Order Comment: pre s urgery testing Result Comment: The validity of the calculated GFR GFRAA in patients over 70 years has not been determined. Clinical correlation is essential. Performed By: #### L 300.4310, L500.2500, L300.3900, L100.0500 ####[facility] [address] [place], [address] EST GFR - AA 109 mL/min Normal >60 [facility] Comment on above: Order Comment: pre s urgery testing Result Comment: Afri can Luxembourger GFR Calc Performed By: #### L 300.4310, L500.2500, L300.3900, L100.0500 ####[facility] [address] [place], [address] GAP 6 Normal 5-15 [facility] Comment on above: Order Comment: pre s urgery testing Performed By: #### L 300.4310, L500.2500, L300.3900, L100.0500 ####[facility] [address] [place], [address] GFR/1.73 sq M.predicted among non-blacks MDRD (S/P/Bld) [Vol rate/Area] 90 mL/min/{1.73_m2} Normal >60 [facility] Comment on above: Order Comment: pre s urgery testing Result Comment: Non- GFR Calc Performed By: #### L 300.4310, L500.2500, L300.3900, L100.0500 ####[facility] [address] [place], [address] Glucose [Mass/Vol] 104 mg/dL Normal 74-106 [facility] Comment on above: Order Comment: pre s urgery testing Result Comment: Fast ing Glucose result from 100 to 125 mg/dL suggests IMPAIRED HOMEOSTASIS per A.D.A. criteria. Performed By: #### L 300.4310, L500.2500, L300.3900, L100.0500 ####[facility] [address] [place], [address] Potassium [Moles/Vol] 4.2 mmol/L Normal 3.5-5.1 [facility] Comment on above: Order Comment: pre s urgery testing Performed By: #### L 300.4310, L500.2500, L300.3900, L100.0500 ####[facility] [address] [place], [address] Sodium [Moles/Vol] 138 mmol/L Normal 136-145 [facility] Comment on above: Order Comment: pre s urgery testing Performed By: #### L 300.4310, L500.2500, L300.3900, L100.0500 ####[facility] [address] [place], [address] Urea nitrogen [Mass/Vol] 22 mg/dL High 7-18 [facility] Comment on above: Order Comment: pre s urgery testing Performed By: #### L 300.4310, L500.2500, L300.3900, L100.0500 ####[facility] [address] [place], [address] CBC-Complete Blood Cnt No Di ffon 02-18-2024 Erythrocyte distribution width (RBC) [Ratio] 13.8 % Normal 11.6-14.6 [facility] Comment on above: Order Comment: Comme nts: pre surgery testing Performed By: #### L 300.4310, L500.2500, L300.3900, L100.0500 ####[facility] [address] [place], [address] Hematocrit (Bld) [Volume fraction] 41.3 % Normal 37-47 [facility] Comment on above: Order Comment: Ester nts: pre surgery testing Performed By: #### L 300.4310, L500.2500, L300.3900, L100.0500 ####[facility] [address] [place], [address] Hemoglobin (Bld) [Mass/Vol] 13.4 g/dL Normal 12.0-15.0 [facility] Comment on above: Order Comment: Ester nts: pre surgery testing Performed By: #### L 300.4310, L500.2500, L300.3900, L100.0500 ####[facility] [address] [place], [address] MCH (RBC) [Entitic mass] 30.4 pg Normal 27.0-32.0 [facility] Comment on above: Order Comment: Ester nts: pre surgery testing Performed By: #### L 300.4310, L500.2500, L300.3900, L100.0500 ####[facility] [address] [place], [address] MCHC (RBC) [Mass/Vol] 32.4 g/dL Normal 32-36 [facility] Comment on above: Order Comment: Ester nts: pre surgery testing Performed By: #### L 300.4310, L500.2500, L300.3900, L100.0500 ####[facility] [address] [place], [address] MCV (RBC) [Entitic vol] 93.7 fL Normal 81-99 [facility] Comment on above: Order Comment: Ester nts: pre surgery testing Performed By: #### L 300.4310, L500.2500, L300.3900, L100.0500 ####[facility] [address] [place], [address] Platelet mean volume (Bld) [Entitic vol] 9.4 fL Normal 6.2-12.0 [facility] Comment on above: Order Comment: Comme nts: pre surgery testing Performed By: #### L 300.4310, L500.2500, L300.3900, L100.0500 ####[facility] [address] [place], [address] Platelets (Bld) [#/Vol] 268 10*3/uL Normal 150-450 [facility] Comment on above: Order Comment: Comme nts: pre surgery testing Performed By: #### L 300.4310, L500.2500, L300.3900, L100.0500 ####[facility] [address] [place], [address] RBC (Bld) [#/Vol] 4.41 10*6/uL Normal 4.2-5.4 [facility] Comment on above: Order Comment: Etser nts: pre surgery testing Performed By: #### L 300.4310, L500.2500, L300.3900, L100.0500 ####[facility] [address] [place], [address] RDW SD 47.8 fl High 35.1-43.9 [facility] Comment on above: Order Comment: Ester nts: pre surgery testing Performed By: #### L 300.4310, L500.2500, L300.3900, L100.0500 ####[facility] [address] [place], [address] WBC (Bld) [#/Vol] 6.6 10*3/uL Normal 4.4-11.0 [facility] Comment on above: Order Comment: Ester nts: pre surgery testing Performed By: #### L 300.4310, L500.2500, L300.3900, L100.0500 ####[facility] [address] [place], [address] Partial Thromboplast Timeon 02-18-2024 aPTT Coag (Bld) [Time] 27.0 s Normal 24.1-36.2 [facility] Comment on above: Order Comment: Comme nts: pre surgery testing Performed By: #### L 300.4310, L500.2500, L300.3900, L100.0500 ####[facility] [address] [place], [address] Plastic Surgery Visit Report on 02-18-2024 Plastic Surgery Visit Report [facility] Plastic Reconstructive Surgery [address], [address] [place] [address] OFFICE VISIT Date of Service: 02/18/24 MR#: [id number] Acct: [id number] Name: BRIGITTE HIGH Rep #: [id number] : 1950 Provider: Dr. Jadyn mccall MD Age/Sex: 73/F Location: [facility] Status: Signed Intake Vital Signs [...] mg PO Q6H PRN 01/20/24 02/18/24 History ninyzvjwhkmq-Xx-ukhb-mine rals tab PO 01/20/24 02/18/24 History vitamin C 45 mg-zinc citrate 3.75 tab PO 01/20/24 02/18/24 History mg-elderberry 50 mg chewable tablet (PlumWillow) coffee extract 100 mg-phosphatidyl cap PO 02/04/24 02/18/24 History serine 100 mg capsule (Neuriva Original) ydusaygcck-ZG-lvfksejsxso en 6.25 ml PO 02/04/24 02/18/24 History [...] the appointmen (more content not included)... Normal [facility] Prothrombin Time w/INRon INR Coag (PPP) [Relative time] 1.1 {INR} Normal [facility] Comment on above: Order Comment: Ester nts: pre surgery testing Performed By: #### L 300.4310, L500.2500, L300.3900, L100.0500 ####[facility] [address] [place] [place], [address] PT Coag (PPP) [Time] 13.8 s Normal 11.7-14.9 [facility] Comment on above: Order Comment: Ester nts: pre surgery testing Performed By: #### L 300.4310, L500.2500, L300.3900, L100.0500 ####[facility] [address] [place], [address] Plastic Surgery Visit Report on 02-04-2024 Plastic Surgery Visit Report [facility] Plastic Reconstructive Surgery [address], [address] [place], [place] [address] OFFICE VISIT Date of Service: 02/04/24 MR#: [id number] Acct: [id number] Name: BRIGITTE HIGH Rep #: [id number] : 1950 Provider: Dr. Jadyn mccall MD Age/Sex: 73/F Location: [facility] Status: Signed Intake Vital Signs [...] mg PO Q6H PRN 01/20/24 02/04/24 History ohhtehfqqedo-Rt-badk-mine rals tab PO 01/20/24 02/04/24 History vitamin C 45 mg-zinc citrate 3.75 tab PO 01/20/24 02/04/24 History mg-elderberry 50 mg chewable tablet (PlumWillow) coffee extract 100 mg-phosphatidyl cap PO 02/04/24 02/04/24 History serine 100 mg capsule (Neuriva Original) eontnaissk-VQ-rtspoyltvrr en 6.25 ml PO 02/04/24 02/04/24 History mg-15 mg-325 mg/15 mL oral liquid (Vicks Nyquil Nighttime Relief) Have you fallen in the past year?: No Nurse's Note: pt here with daughter(Chrissy) preop #1 [facility] Medical History (Updated 01/20/24 @ 10:37 by [...] 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 [...] Painful periwound skin R23.8 Breast asymmetry between [place] breast and reconstructed breast N65.1 Ptosis of right breast N64.81 Status post left br (more content not included)... Normal [facility] Plastic Surgery Visit Report on 01-20-2024 Plastic Surgery Visit Report [facility] Plastic Reconstructive Surgery [address], [address] [place] [address] OFFICE VISIT Date of Service: 01/20/24 MR#: [id number] Acct: [id number] Name: BRIGITTE HIGH Rep #: [id number] : 1950 Provider: Dr. Jadyn mccall MD Age/Sex: 73/F Location: [facility] Status: Signed Intake Vital Signs [...] mg PO Q6H PRN 01/20/24 01/20/24 History czowwytswsmw-Qz-oqwd-mine rals tab PO 01/20/24 01/20/24 History vitamin C 45 mg-zinc citrate 3.75 tab PO 01/20/24 01/20/24 History mg-elderberry 50 mg chewable tablet (Elderberry Generous Deals) Have you fallen in the past year?: No Nurse's Note: pt here for left breast reconstruction/concern, scar on back from surgery [facility] Medical History (Updated 01/20/24 @ 10:37 by [...] mastectomy. She had her initial surgery at [facility] and the second surgery at [facility]. She has a history of nicotine [...] has ptos (more content not included)... Normal [facility] C Urineon 11-06-2023 Bacteria identified Cx Nom [...] Locations R1: This test was performed at: [facility], [address] [place] [address], [address]- , [place], Normal [facility] Comment on above: Performed By: #### 2 [id number] #### [facility] [address] [place] [address] SURGICAL PATHOLOGY REFERENCE LAB CONSULTon 10-08-2023 CASE REPORT Normal [facility] Comment on above: Order Comment: Speci men Type: FORMALIN-FIXED PARAFFIN-EMBEDDED TISSUE SPECIMEN Ordering Facility: [facility] Address: [address] [place] [address] Result Comment: Surg ical Pathology Report Case: [id number] Authorizing Provider: Star Recinos MD Collected: 10/08/2023 07:46 PM Ordering Location: [facility] Received: 10/08/2023 07:45 PM [facility] Pathologist: Hema Ho MD Specimen: SLIDE(S), 4 SLIDES ([id number]) Performed By: #### L [id number] #### [facility] CLIA [id number] [address] [place] [address] [place] CLINICAL HISTORY CONSULT REQUESTED [facility] Comment on above: Order Comment: Speci men Type: FORMALIN-FIXED PARAFFIN-EMBEDDED TISSUE SPECIMEN Ordering Facility: [facility] Address: [address] [place] [address] Performed By: #### L [id number] #### [facility] CLIA [id number] [address] [place] [address] DIAGNOSIS COMMENT Normal [facility] [place] Comment on above: Order Comment: Speci men Type: FORMALIN-FIXED PARAFFIN-EMBEDDED TISSUE SPECIMEN Ordering Facility: [facility] Address: [address] [place] [address] Result Comment: No i nvasive component is found in the sample examined. P16 immunostain performed at the referring institution is diffusely/strongly positive. 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 Laboratory Developed Test (LDT) Disclaimer: Performance characteristics of immunohistochemical, immunofluorescent and chromogenic in-situ hybridization tests have been determined by the performing laboratory within [facility]???s [facility] [place] ([facility], [facility], [facility], [facility], [facility], [facility], [facility], or [facility]) in a manner consistent with CLIA requirements. One or more of these tests have not been cleared or approved by the FDA. [facility] is regulated under CLIA as qualified to perform high-complexity testing. These tests are used for clinical purposes. They should not be regarded as investigational or for research. Positive and negative controls stain appropriately. Performed By: #### L [id number] #### [facility] CLIA [id number] [address] [place] [address] FINAL DIAGNOSIS Normal [facility] Comment on above: Order Comment: Speci men Type: FORMALIN-FIXED PARAFFIN-EMBEDDED TISSUE SPECIMEN Ordering Facility: [facility] Address: [address] [place] [address] Result Comment: A. U rethral mass, excision: ([id number], 09/25/2023) - High-grade squamous intraepithelial lesion (see comment). Performed By: #### L [id number] #### [facility] CLIA [id number] [address] [place] [address] FINAL PERFORMING LAB Normal [facility] Comment on above: Order Comment: Speci men Type: FORMALIN-FIXED PARAFFIN-EMBEDDED TISSUE SPECIMEN Ordering Facility: [facility] Address: [address] [place] [address] Result Comment: Diag nostic interpretation performed at [facility], [address] [place] [address] CLIA# [id number] Tick Eradicator: Eleazar Sutherland M.D. Performed By: #### L [id number] #### [facility] CLIA [id number] [address] [place] [address] Fabian 09-25-2023 L Specimen: [id number] Received: 09/26/239 Status: MEHREEN Tavarez Num: [id number] Spec Type: Surgical Subm Dr: Star Recinos MD Tissues: A Urethra Biopsy (URETHRAL MASS) Procedures: HE/2, Gross/Micro L4, Ki-67, CINtec p16, IHC First AB Age/ Patient Sex Location Account Attending Physician Brigitte High 72/F [facility] [id number] Star Recinos MD SPEC NUM: [id number] RECD: 09/26/23-1328 STATUS: MEHREEN TAVAREZ NUM: [id number] CRESCENCIO: 09/25/23- SUBM DR: Star Recinos MD ENTERED: 09/26/23-[address]: MARIA E TYPE: Surgical DEPT: HONG GARCIA ORDERED: HE/2, Gross/Micro L4, Ki-67, CINtec p16, IHC First AB ORDERED: HE/2, Gross/Micro L4, Ki-67, CINtec p16, IHC First AB, IMMUNOHISTOCHEM Supplemental Report Addendum 2 Entered: 10/20/23-1132 Supplemental for findings of consultation report from [facility]: -No discrepancy between the diagnosis of the original report and the findings of consultation report from [facility] -Please also see the first supplemental report issued below Addendum Signed (signature on file) Chicho-Freddy Horvath MD 10/20/23 113 Addendum 1 Entered: 10/16/23-1436 Urethral mass, excision: ? High-grade squamous intraepithelial lesion. ? Comment: This specimen was reviewed by Dr. Hema Ho at the [facility], who rendered the diagnosis above. She noted that no invasive carcinoma is present in the sample examined. P16 immunostain performed at the referring institution is diffusely/strongly positive. 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 Specimen: [id number] Received: 09/26/23 Status: NADIARyann Tavarez Num: [id number] Spec Type: Surgical Subm Dr: Star Recinos MD Tissues: A Urethra Biopsy (URETHRAL MASS) Procedures: HE/2, Gross/Micro L4, Ki-67, CINtec p16, IHC First AB Patient: Brigitte High [id number] (Continued) Specimen: [id number] Received: 09/26/23 (Continued) Supplemental Report (Continued) Signed (signature on file) Rocío Horvath MD 09/29/23 1838 Specimen: [id number] Received: 09/26/23 Status: MEHREEN Tavarez Num: [id number] Spec Type: Surgical Subm Dr: Star Recinos MD Tissues: A Urethra Biopsy (URETHRAL MASS) Procedures: HE/2, Gross/Micro L4, Ki-67, CINtec p16, IHC First AB Patient: Brigitte High [id number] (Continued) Specimen: [id number] Received: 09/26/23-1325 (Continued) Supplemental Report (Continued) Addendum Signed (signature [...] in one cassette labeled A1. CPT Codes 96601 58621, 17040 Specimen: [id number] Received: 09/26/23 Status: MEHREEN Tavarez Num: [id number] Spec Type: Surgical Subm Dr: Star Recinos MD Tissues: A Urethra Biopsy (URETHRAL MASS) Procedures: HE/2, Gross/Micro L4, Ki-67, CINtec p16, IHC First AB Patient: Brigitte High [id number] (Continued) Signed (signature on file)___ (more content not included)... [facility] CNPSherry 04-02-2023 CNPN Telephone (PLASAV) ----- BRIGITTE HIGH ([id number]) 1950 F Date Time Provider Department 04/02/23 Lawrence MEDINA PLASAV During your visit today, we recorded the [...] by KYRA PAGE on 04/02/23 [facility] CNOVon 03-28-2023 CNOV Office Visit (PLASAM ) ----- BRIGITTE HIGH ([id number]) 1950 F Date Time Provider Department 03/28/23 [...] by Lawrence MEDINA on 03/28/23 [facility] MRI BREAST WO IVCON BILon MRI BREAST WO IVCON CHRIS * * *Final Report* * * DATE OF EXAM: Mar 25 2023 2:01PM [facility] 0699 - MRI BREAST WO IVCON CHRIS / PROCEDURE REASON: History of breast cancer * * * * Physician Interpretation * * * * #[id number] - MRI BREAST WO IVCON CHRIS BREAST [...] does not evaluate for breast cancer. Marva pérez/penrad:03/26/2023 11:11:18 [employer]obile Spring Repairer(s): Gray Mcdonald RT(R), [facility] MRI BI-RADS: n/a Multiple national specialty organizations have released breast cancer screening guidelines for women at average risk for developing breast cancer - guidelines that are based on both evidence and opinion, yet differ on when to start and how often to screen for breast cancer. With representation from Breast Imaging, Internal Medicine, Women's Health, Family Medicine, and Medical/Surgical Oncology, the [facility] has carefully reviewed the data and [...] their providers when to stop screening mammograms. Clinical Rehab Specialist: Renato Transcribe Date/Time: Mar 25 2023 1:29P Dictated by : MARVA BONILLA MD This examination was interpreted and the report reviewed and electronically signed by: MARVA OBNILLA MD on Mar 26 2023 11:11AM EST [id number] Normal [facility] Established Visit (Orthopaed ic Surgery)on 02-11-2023 Established Visit (Orthopaedic Surgery) Diagnoses/Problems Assessed Patella fracture (822.0) (S82.009A) Orders Patella fracture Xray Knee 3 View; Status:Resulted - Preliminary,Retrospective Authorization; Done: [id number] 10:14AM Laterality : Left Radiologist to Determine [...] INDICATION: . S82.009A: Patella fracture. ACCESSION NUMBER(S): [id number] ORDERING CLINICIAN: SANDRA TAYLOR FINDINGS: Left knee films show transverse patellar fracture to stable in satisfactory position. There is filling in at the fracture site. There is moderate degenerative change seen in the medial and lateral compartments of the knee. There is also moderate degenerative change seen in the patellofemoral joint Electronically signed by: SANDRA TAYLOR MD Normal [facility] Radiologyon 02-11-2023 XR Knee 3 Views Normal [facility] Work Phone: Clinic Note - Heme Onc Sched ulingon 01-20-2023 Clinic Note - Heme Onc Scheduling Retrieve Patient Instructions: Patient Instructions: Patient Instructions: RetrievePatient Instructions Instructions Printed Schedule End of Visit Documentation: Clinic Location/Phone Number: Clinic Location/Phone Number: [place] [phone] End Of Visit MU Report Item: Visit Summary given or mailed to patientyes Mailed Appointments Electronic Signatures: Fatimah Melendez (Rev Cycl Spec) (Signed 20-Jan-2023 09:06) Authored: Retrieve Patient Instructions, End of Visit Documentation Last Updated: 20-Jan-2023 09:06 by Fatimah Melendez (Rev Cycl Spec) Normal [facility] CA27.29on 01-18-2023 CA27.29 53.0 U/mL High 0.0 - 38.6 [facility] Comment on above: Result Comment: CA 2 [...] decisions. Performed By: #### C 2729 #### [facility] [address] [place] [address] CA27.29 (CA15-3)on 3 Cancer Ag 27-29 Qn 53.0 [arb'U]/mL above high threshold 0.0 - 38.6 -[facility] Work Phone: Comment on above: CA 27.29 [...] Patient is a transfer her care from [facility]. Dr. Jing Campbell is her PCP. The patient is transferring her medical oncology care here, after having been cared for by Dr. Aleyda Richardson. Her Juan Sheffield was a patient of our practice and in early 2017. Last reported mammogram 06/05/2016 done in [place]. She has history of left sided breast [...] margin, lymphovascular invasion not definite; ER neg, DE neg, FHY4vbt neg. The patient does not recall what [...] and chest xray to be done at [facility] this upcoming Friday. She also happens to [...] now due to intolerable waits at the [place] office. 12/27/2019: Here for annual visit in the setting of history of breast cancer. Her most recent mammogram done on December 30 2018 and that was negative. 12/26/2020 here for interval followup; looking forward to going back to [place] in near future 01/18/2022 here for interval followup; has no complaints 01/17/2023 here for interval followup; now living in [facility] PAST MEDICAL HISTORY: History of [...] Eyes, Itching, (more content not included)... Normal [facility] Clinic Note - Intakeon 01-17 [...] and Clinician Awareno Electronic Signatures: Iona Ríos (MA II) (Signed 17-Jan-2023 13:29) Authored: Patient Visit Information, Vital Signs, Allergies, Outpatient Medication Profile, Notification, Travel History, Falls Last Updated: 17-Jan-2023 13:29 by Iona Ríos (DAMION II) Normal [facility] BILATERAL KNEE 1 OR 2 VIEWSo n 01-07-2023 BILATERAL KNEE 1 OR 2 VIEWS Patient Name: BRIGITTE HIGH STUDY: BILATERAL KNEE; 1 OR 2 VIEWS; Left; 01/07/2023 9:57 am INDICATION: FX S82.009A: Patella fracture. ACCESSION NUMBER(S): [id number] ORDERING CLINICIAN: SANDRA TAYLOR FINDINGS: Bilateral knee films show on the right no fracture, dislocation or destructive lesion. There is mild to moderate degenerative change seen. The left knee patellar fracture is in stable position. It is nondisplaced. There is some filling in at the fracture site. Electronically signed by: SANDRA TAYLOR MD Normal [facility] Established Visit (Orthopaed ic Surgery)on [...] 2014 History of Hysterectomy total 1980 - AUB and enloarged ovarian cyst History o (more content not included)... Normal [facility] Established Visit (Orthopaed ic Surgery)on 12-10-2022 Established Visit (Orthopaedic Surgery) Diagnoses/Problems Assessed Other closed fracture of patella, unspecified laterality, initial encounter (822.0) (S82.981B) Chief Complaint Left knee pain Patient to bring xray disc History of Present Illness History of Present Illness This is a 72-year-old female here for. 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 Destini Horvath XR RIBS LT PA [...] ILDEFONSO HO Date: 2022-08-19 06:59 Normal The [facility] CBC AUTO DIFFon 08-17-2022 BASO # 0.1 103/ul Normal 0.0-0.1 [facility] Comment on above: Performed By: #### C BC #### [facility] [address] [place] [address] Dr. Destini Horvath Basophils/100 WBC (Bld) 1.1 % Normal 0.2-2.0 [facility] Comment on above: Performed By: #### C BC #### [facility] [address] [place] [address] Dr. Destini Horvath EO # 0.2 103/ul Normal 0.0-0.7 [facility] Comment on above: Performed By: #### C BC #### [facility] [address] [place] [address] Dr. Destini Horvath Eosinophils/100 WBC (Bld) 2.9 % Normal 0.9-7.0 [facility] Comment on above: Performed By: #### C BC #### [facility] [address] [place] [address] Dr. Destini Horvath Erythrocyte distribution width (RBC) [Ratio] 13.4 % Normal 11.0-15.0 [facility] Comment on above: Performed By: #### C BC #### [facility] [address] [place] [address] Dr. Destini Horvath Hematocrit (Bld) [Volume fraction] 35.2 % Critically low 36.0-48.0 [facility] Comment on above: Performed By: #### C BC #### [facility] [address] [place] [address] Dr. Destini Horvath Hemoglobin (Bld) [Mass/Vol] 12.4 g/dL Normal 12.0-16.0 [facility] Comment on above: Performed By: #### C BC #### [facility] [address] [place] [address] Dr. Destini Horvath IG # 0.01 10e3/ul Normal 0.00-0.03 [facility] Comment on above: Performed By: #### C BC #### [facility] [address] [place] [address] Dr. Destini Horvath IG % 0.2 % Normal 0.0-0.5 [facility] Comment on above: Performed By: #### C BC #### [facility] [address] [place] [address] Dr. Destini Horvath LYMPH # 2.5 103/ul Normal 1.2-3.8 [facility] Comment on above: Performed By: #### C BC #### [facility] [address] [place] [address] Dr. Destini Horvath Lymphocytes/100 WBC (Bld) 45.6 % Normal 20.5-60.0 [facility] Comment on above: Performed By: #### C BC #### [facility] [address] [place] [address] Dr. Destini Horvath MANUAL DIFF REQ NO Normal [facility] Comment on above: Performed By: #### C BC #### [facility] [address] [place] [address] Dr. Destini Horvath MCH (RBC) [Entitic mass] 30.1 pg Normal 26.7-34.0 [facility] Comment on above: Performed By: #### C BC #### [facility] [address] [place] [address] Dr. Destini Horvath MCHC (RBC) [Mass/Vol] 35.2 g/dL Normal 29.9-35.2 [facility] Comment on above: Performed By: #### C BC #### [facility] [address] [address] [address] Destini Horvath MCV (RBC) [Entitic vol] 85.4 fL Normal 81.0-99.0 [facility] Comment on above: Performed By: #### C BC #### [facility] [address] [address] [address] Destini Horvath MONO # 0.5 103/ul Normal 0.3-0.8 [facility] Comment on above: Performed By: #### C BC #### [facility] [address] [address] [address] Destini Horvath Monocytes/100 WBC (Bld) 8.3 % Normal 1.7-12.0 [facility] Comment on above: Performed By: #### C BC #### [facility] [address] [address] [address] Destini Horvath NEUT # 2.3 103/ul Normal 1.4-6.5 [facility] Comment on above: Performed By: #### C BC #### [facility] [address] [place] [address] Dr. Destini Horvath Neutrophils/100 WBC (Bld) 41.9 % Critically low 43.0-75.0 [facility] Comment on above: Performed By: #### C BC #### [facility] [address] [address] [address] Destini Horvath Platelet mean volume (Bld) [Entitic vol] 9.6 fL Normal 9.5-13.5 The [facility] Comment on above: Performed By: #### C BC #### [facility] [address] [place] [address] Dr. Destini Horvath PLT 262 103/ul Normal 150-450 The [facility] Comment on above: Performed By: #### C BC #### [facility] [address] [address] [address] Destini Horvath RBC 4.12 106/ul Critically low 4.20-5.40 [facility] Comment on above: Performed By: #### C BC #### [facility] [address] [address] [address] Destini Horvath WBC 5.6 103/ul Normal 4.0-11.0 [facility] Comment on above: Performed By: #### C BC #### [facility] [address] [address] [address] Destini Horvath FREE THYROXINE INDEX T7on FTI 2.14 Normal 1.30-4.50 [facility] Comment on above: Performed By: #### T SH, LIPID, CMP, T7 #### [facility] [address] [address] [address] Destini Horvath T3U 34.0 % Normal 30.0-39.0 [facility] Comment on above: Performed By: #### T SH, LIPID, CMP, T7 #### [facility] [address] [place] [address] Dr. Destini Horvath T4 [Mass/Vol] 6.30 ug/dL Normal 4.80-13.90 [facility] Comment on above: Performed By: #### T SH, LIPID, CMP, T7 #### [facility] [address] [address] [address] Destini Horvath GLYCOHEMOGLOBIN A1Con 2022 ADA RECOMMENDATION SEE BELOW Normal [facility] Comment on above: Result Comment: ADA RECOMMENDED LIMIT 4.0 - 6.0 ADA THERAPEUTIC TARGET < 7.0 ACTION SUGGESTED > 7.0 Performed By: #### U RCX #### [facility] [address] [place] [address] Dr. Destini Horvath Glucose [Mass/Vol] 117 mg/dL Normal [facility] Comment on above: Performed By: #### U RCX #### [facility] [address] [place] [address] Dr. Destini Horvath HbA1c (Bld) [Mass fraction] 5.7 % Normal 4.5-6.2 [facility] Comment on above: Performed By: #### U RCX #### [facility] [address] [place] [address] Dr. Destini Horvath IRONon 08-17-2022 Iron [Mass/Vol] 39.0 ug/dL Critically low 50.0-170.0 [facility] Comment on above: Performed By: #### U RCX #### [facility] [address] [place] [address] Dr. Destini Horvath LIPID PROFILEon 08-17-2022 CHOL-HDL RATIO NORM SEE BELOW Normal [facility] Comment on above: Result Comment: 3.3 - 4.4 LOW RISK 4.4 - 7.1 AVERAGE RISK 7.1 - 11.0 MODERATE RISK >11.0 HIGH RISK Performed By: #### T SH, LIPID, CMP, T7 #### [facility] [address] [place] [address] Dr. Destini Horvath Cholesterol [Mass/Vol] 191 mg/dL Normal <=200 [facility] Comment on above: Performed By: #### T SH, LIPID, CMP, T7 #### [facility] [address] [place] [address] Dr. Destini Horvath Cholesterol in HDL [Mass/Vol] 109 mg/dL Critically high 40-60 [facility] Comment on above: Performed By: #### T SH, LIPID, CMP, T7 #### [facility] [address] [place] [address] Dr. Destini Horvath Cholesterol in LDL [Mass/Vol] 69.2 mg/dL Normal [facility] Comment on above: Performed By: #### T SH, LIPID, CMP, T7 #### [facility] [address] [place] [address] Dr. Destini Horvath Cholesterol.total/ Cholesterol in HDL [Mass ratio] 1.8 {ratio} Normal [facility] Comment on above: Performed By: #### T SH, LIPID, CMP, T7 #### [facility] [address] [place] [address] Dr. Destini Horvath HDL NORMAL > or = 60 mg/dl - LO W CARDIOVASCULAR RISK <40 mg/dl - HIGH CARDIOVASCULAR RISK Normal [facility] Comment on above: Performed By: #### T SH, LIPID, CMP, T7 #### [facility] [address] [place] [address] Dr. Destini Horvath LDL CALC NORMAL SEE BELOW Normal [facility] Comment on above: Result Comment: <100 mg/dl OPTIMAL 100 - 129 mg/dl NEAR OR ABOVE OPTIMAL 130 - 159 mg/dl BORDERLINE HIGH 160 - 189 mg/dl HIGH >190 mg/dl VERY HIGH Performed By: #### T SH, LIPID, CMP, T7 #### [facility] [address] [address] [address] Destini Horvath Triglyceride [Mass/Vol] 64 mg/dL Normal <=150 [facility] Comment on above: Performed By: #### T SH, LIPID, CMP, T7 #### [facility] [address] [address] [address] Destini Horvath VLDL CALC 12.8 mg/dL Normal [facility] Comment on above: Performed By: #### T SH, LIPID, CMP, T7 #### [facility] [address] [place] [address] Dr. Destini Horvath PROF 14(COMP METB)on 023 Albumin [Mass/Vol] 3.6 g/dL Normal 3.4-5.0 [facility] Comment on above: Performed By: #### T SH, LIPID, CMP, T7 #### [facility] [address] [address] [address] Destini Horvath Albumin/Globulin [Mass ratio] 1.0 {ratio} Normal [facility] Comment on above: Performed By: #### T SH, LIPID, CMP, T7 #### [facility] [address] [address] [address] Destini Horvath ALP [Catalytic activity/Vol] 101 U/L Normal 46-116 The [facility] Comment on above: Performed By: #### T SH, LIPID, CMP, T7 #### [facility] [address] [address] [address] Destini Horvath ALT [Catalytic activity/Vol] 27 U/L Normal 14-59 [facility] Comment on above: Performed By: #### T SH, LIPID, CMP, T7 #### [facility] [address] [address] [address] Destini Horvath Anion gap [Moles/Vol] 15.0 mmol/L Normal [facility] Comment on above: Performed By: #### T SH, LIPID, CMP, T7 #### [facility] [address] [address] [address] Destini Horvath AST [Catalytic activity/Vol] 22 U/L Normal 15-37 [facility] Comment on above: Performed By: #### T SH, LIPID, CMP, T7 #### [facility] [address] [address] [address] Destini Horvath Bilirubin [Mass/Vol] 0.3 mg/dL Normal 0.2-1.0 The [facility] Comment on above: Performed By: #### T SH, LIPID, CMP, T7 #### [facility] [address] [address] [address] Destini Horvath Calcium [Mass/Vol] 9.2 mg/dL Normal 8.5-10.1 [facility] Comment on above: Performed By: #### T SH, LIPID, CMP, T7 #### [facility] [address] [address] [address] Destini Horvath Chloride [Moles/Vol] 108 mmol/L Critically high 98-107 The [facility] Comment on above: Performed By: #### T SH, LIPID, CMP, T7 #### [facility] [address] [address] [address] Destini Horvath CO2 [Moles/Vol] 23.7 mmol/L Normal 21.0-32.0 [facility] [place] [facility] Comment on above: Performed By: #### T SH, LIPID, CMP, T7 #### [facility] [address] [address] [address] Destini Horvath Creatinine [Mass/Vol] 0.59 mg/dL Normal 0.55-1.02 The [facility] Comment on above: Performed By: #### T SH, LIPID, CMP, T7 #### [facility] [address] [address] [address] Destini Horvath EGFR-AF NEPALESE >60 Normal >=60 [facility] [place] [facility] Comment on above: Performed By: #### T SH, LIPID, CMP, T7 #### [facility] [address] [address] [address] Destini Horvath EGFR-NON AF NEPALESE >60 Normal >=60 [facility] Comment on above: Performed By: #### T SH, LIPID, CMP, T7 #### [facility] [address] [address] [address] Destini Horvath Globulin (S) [Mass/Vol] 3.7 g/dL Normal [facility] Comment on above: Performed By: #### T SH, LIPID, CMP, T7 #### [facility] [address] [address] [address] Destini Horvath Glucose [Mass/Vol] 91 mg/dL Normal 74-106 [facility] Comment on above: Performed By: #### T SH, LIPID, CMP, T7 #### [facility] [address] [place] [address] Dr. Destini Horvath Potassium [Moles/Vol] 3.7 mmol/L Normal 3.5-5.1 [facility] Comment on above: Performed By: #### T SH, LIPID, CMP, T7 #### [facility] [address] [address] [address] Destini Horvath Protein [Mass/Vol] 7.3 g/dL Normal 6.4-8.2 [facility] Comment on above: Performed By: #### T SH, LIPID, CMP, T7 #### [facility] [address] [address] [address] Destini Horvath Sodium [Moles/Vol] 143 mmol/L Normal 136-145 [facility] Comment on above: Performed By: #### T SH, LIPID, CMP, T7 #### [facility] [address] [address] [address] Destini Horvath Urea nitrogen [Mass/Vol] 17.0 mg/dL Normal 7.0-18.0 [facility] Comment on above: Performed By: #### T SH, LIPID, CMP, T7 #### [facility] [address] [address] [address] Destini Horvath Urea nitrogen/Creatinin e [Mass ratio] 28.8 mg/mg Normal The [facility] Comment on above: Performed By: #### T SH, LIPID, CMP, T7 #### [facility] [address] [place] [address] [address] [address] Destini Horvath TSHon 08-17-2022 TSH 2.888 uIU/mL Normal 0.358-3.740 [facility] Comment on above: Performed By: #### T SH, LIPID, CMP, T7 #### [facility] [address] [place], [place] [address] Dr. Destini Horvath Covid-19 PCR ([facility])on SARS-CoV-2 (COVID-19) RNA MARY+probe Ql (Unsp spec) Not detected Normal NOT DETECTED The [facility] Comment on above: Result Comment: [...] for this test is supported by the [place] of Health and Human Service's declaration that [...] used). Performed By: #### C VDTBH #### [facility] [address] [place] [address] [address] [address] Destini Horvath INFLUENZA A AND B AGon 07-05 INFLUANEGH SEE BELOW Normal The [facility] Comment on above: Result Comment: Nega tive for Flu A protein angiten. Infection due to Flu A cannot be ruled out. Flu A angiten in the sample may be below the detection limit of the test. Performed By: #### U RCX #### [facility] [address] [place] [address] Dr. Destini Horvath [facility] SEE BELOW Normal [facility] [facility] Comment on above: Result Comment: Nega tive for Flu B protein antigen. Infection due to Flu B cannot be ruled out. Flu B antigen in the sample may be below the detection limit of the test. Performed By: #### U RCX #### [facility] [address] [place] [address] Dr. Destini Horvath INFLUENZA A AG Negative Normal NEGATIVE SEE COMMENT The [facility] Comment on above: Performed By: #### U RCX #### [facility] [address] [place] [address] Dr. Destini Horvath INFLUENZA B AG Negative Normal NEGATIVE SEE COMMENT The [facility] Comment on above: Performed By: #### U RCX #### [facility] [address] [place] [address] Dr. Destini Horvath INTERNAL CONTROLS Within Normal Limits Normal Wi thin Normal Limits [facility] Comment on above: Performed By: #### U RCX #### [facility] [address] [place] [address] Dr. Destini Horvath CULTURE URINEon 06-30-2022 CULTURE [...] Trimethoprim/Sulfamethoxa zole <=20 S F Normal The [facility] Comment on above: Performed By: #### U RCX #### [facility] [address] [place] [address] Dr. Destini Horvath UA RANDOM W/MICROSCOPICon BACTERIA LARGE Abnormal NONE SEEN The [facility] Comment on above: Performed By: #### U RCX #### [facility] [address] [address] [address] Destini Horvath Bilirubin Ql (U) Negative Normal NEGATIVE [facility] Comment on above: Performed By: #### U RCX #### [facility] [address] [address] [address] Destini Horvath CAST NONE SEEN Normal NONE SEEN The [facility] Comment on above: Performed By: #### U RCX #### [facility] [address] [address] [address] Destini Horvath Clarity (U) SL CLOUDY Abnormal CLEAR The [facility] Comment on above: Performed By: #### U RCX #### [facility] [address] [address] [address] Destini Horvath Color (U) LT. YELLOW Normal YELLOW The [facility] Comment on above: Performed By: #### U RCX #### [facility] [address] [address] [address] Destini Horvath Crystals LM Nom (Urine sed) NONE SEEN Normal NONE SEEN [facility] Comment on above: Performed By: #### U RCX #### [facility] [address] [place] [address] Dr. Destini Horvath Epithelial cells LM Ql (Urine sed) FEW Abnormal NONE SEEN /RARE The [facility] Comment on above: Performed By: #### U RCX #### [facility] [address] [address] [address] Destini Horvath Glucose Ql (U) Negative Normal NEGATIVE [facility] Comment on above: Performed By: #### U RCX #### [facility] [address] [address] [address] Destini Horvath Hemoglobin Ql (U) TRACE-INTACT Abnormal NEGATIVE [facility] Comment on above: Performed By: #### U RCX #### [facility] [address] [address] [address] Destini Horvath Ketones Ql (U) Negative Normal NEGATIVE [facility] Comment on above: Performed By: #### U RCX #### [facility] [address] [place] [address] Dr. Destini Horvath LEUKOCYTES MODERATE Abnormal NEGATIVE [facility] Comment on above: Performed By: #### U RCX #### [facility] [address] [place] [address] Dr. Destini Horvath MUCOUS NONE SEEN Normal NONE SEEN [facility] Comment on above: Performed By: #### U RCX #### [facility] [address] [place] [address] Dr. Destini Horvath Nitrite Ql (U) Negative Normal NEGATIVE [facility] Comment on above: Performed By: #### U RCX #### [facility] [address] [place] [address] Dr. Destini Horvath pH (U) 5.5 [pH] Normal 5-9 [facility] Comment on above: Performed By: #### U RCX #### [facility] [address] [place] [address] Dr. Destini Horvath RBC 2-5 Abnormal 0-2 The [facility] Comment on above: Performed By: #### U RCX #### [facility] [address] [place] [address] Dr. Destini Horvath SPEC GRAVITY 1.015 Normal 1.005-<=1.02 5 [facility] Comment on above: Performed By: #### U RCX #### [facility] [address] [place] [address] Dr. Destini Horvath UA PROTEIN Negative Normal NEGATIVE/ TRACE The [facility] Comment on above: Performed By: #### U RCX #### [facility] [address] [place] [address] Dr. Destini Horvath Urobilinogen Qn (U) 0.2 {Abner'U}/dL Normal 0.2 - 1.0 [facility] Comment on above: Performed By: #### U RCX #### [facility] [address] [place] [address] Dr. Destini Horvath WBC (U) [#/Vol] /uL Abnormal NONE SEEN The [facility] Comment on above: Performed By: #### U RCX #### [facility] [address] [place], [place] [address] Dr. Destini Horvath CBCon 04-29-2022 Erythrocyte distribution width (RBC) [Ratio] 14.0 % Normal 11.5 - 14.5 [facility] Comment on above: Performed By: #### C BC #### [address] [id number] Hematocrit (Bld) [Volume fraction] 41.0 % Normal 36.0 - 46.0 [facility] Comment on above: Performed By: #### C BC #### [address] [id number] Hemoglobin (Bld) [Mass/Vol] 12.9 g/dL Normal 12.0 - 16.0 [facility] Comment on above: Performed By: #### C BC #### [address] [id number] MCHC (RBC) [Mass/Vol] 31.5 g/dL Low 32.0 - 36.0 [facility] Comment on above: Performed By: #### C BC #### [address] [id number] MCV (RBC) [Entitic vol] 97 fL Normal 80 - 100 [facility] Comment on above: Performed By: #### C BC #### [address] [id number] Platelets (Bld) [#/Vol] 268 10*3/uL Normal 150 - 450 [facility] Comment on above: Performed By: #### C BC #### [address] [id number] RBC 4.24 x10E12/L Normal 4.00 - 5.20 [facility] Comment on above: Performed By: #### C BC #### [address] [id number] WBC (Bld) [#/Vol] 6.0 10*3/uL Normal 4.4 - 11.3 [facility] [place] Comment on above: Performed By: #### C BC #### [address] [id number] COMPREHENSIVE PANELon 2021 Albumin [Mass/Vol] 4.2 g/dL Normal 3.4 - 5.0 [facility] [place] Comment on above: Performed By: #### C MP #### [address] [id number] ALP [Catalytic activity/Vol] 71 U/L Normal 33 - 136 [facility] Comment on above: Performed By: #### C MP #### [address] [id number] ALT [Catalytic activity/Vol] 23 U/L Normal 7 - 45 [facility] Comment on above: Result Comment: Luanne ents treated with Sulfasalazine may generate falsely decreased results for ALT. Performed By: #### C MP #### [address] [id number] Anion gap [Moles/Vol] 13 mmol/L Normal 10 - 20 [facility] Comment on above: Performed By: #### C MP #### [address] [id number] AST [Catalytic activity/Vol] 24 U/L Normal 9 - 39 [facility] Comment on above: Performed By: #### C MP #### [address] [id number] Bilirubin [Mass/Vol] 0.4 mg/dL Normal 0.0 - 1.2 [facility] Comment on above: Performed By: #### C MP #### [address] [id number] Calcium [Mass/Vol] 9.4 mg/dL Normal 8.6 - 10.3 [facility] [place] Comment on above: Performed By: #### C MP #### [address] [id number] Chloride [Moles/Vol] 106 mmol/L Normal 98 - 107 [facility] Comment on above: Performed By: #### C MP #### [address] [id number] Creatinine [Mass/Vol] 0.69 mg/dL Normal 0.50 - 1.05 [facility] Comment on above: Performed By: #### C MP #### [address] [id number] eGFR FEMALE >90 Normal >90 [facility] Comment on above: Result Comment: CALC ULATIONS OF ESTIMATED GFR ARE PERFORMED USING THE 2020 CKD-EPI STUDY REFIT EQUATION WITHOUT THE RACE VARIABLE FOR THE IDMS-TRACEABLE CREATININE METHODS. https://jasn.asnjournals.org/content//ASN.580811984 8 Performed By: #### C MP #### [address] [id number] Glucose [Mass/Vol] 79 mg/dL Normal 74 - 99 [facility] [place] Comment on above: Performed By: #### C MP #### [address] [id number] HCO3 (Bld) [Moles/Vol] 25 mmol/L Normal 21 - 32 [facility] Comment on above: Performed By: #### C MP #### [address] [id number] Potassium [Moles/Vol] 4.1 mmol/L Normal 3.5 - 5.3 [facility] Comment on above: Performed By: #### C MP #### [address] [id number] Protein [Mass/Vol] 7.4 g/dL Normal 6.4 - 8.2 [facility] [place] Comment on above: Performed By: #### C MP #### [address] [id number] Sodium [Moles/Vol] 140 mmol/L Normal 136 - 145 [facility] [place] Comment on above: Performed By: #### C MP #### [address] [id number] Urea nitrogen [Mass/Vol] 12 mg/dL Normal 6 - 23 [facility] Comment on above: Performed By: #### C MP #### [address] [id number] LIPID PANEL (CORONARY RISK 2 )on 04-29-2022 Cholesterol [Mass/Vol] 198 mg/dL Normal 0 - 199 [facility] Comment on above: Result Comment: [...] dosing. Performed By: #### L IPID #### [address] [id number] Cholesterol in HDL [Mass/Vol] 89.0 mg/dL Normal [facility] Comment on above: Result Comment: . AGE VERY LOW LOW NORMAL HIGH 0-19 Y < 35 < 40 40-45 ---- 20-24 Y ---- < 40 >45 ---- >24 Y ---- < 40 40-60 >60 . Performed By: #### L IPID #### [address] [id number] Cholesterol in LDL [Mass/Vol] 87 mg/dL Normal 0 - 99 [facility] Comment on above: Result Comment: . NEAR BORD AGE DESIRABLE OPTIMAL HIGH HIGH VERY HIGH 0-19 Y 0 - 109 --- 110-129 >/= 130 ---- 20-24 Y 0 - 119 --- 120-159 >/= 160 ---- >24 Y 0 - 99 100-129 130-159 160-189 >/=190 . Performed By: #### L IPID #### [address] [id number] Cholesterol in VLDL [Mass/Vol] 22 mg/dL Normal 0 - 40 [facility] Comment on above: Performed By: #### L IPID #### [address] [id number] Cholesterol.total/ Cholesterol in HDL [Mass ratio] 2.2 {ratio} Normal [facility] Comment on above: Result Comment: REF VALUES DESIRABLE < 3.4 HIGH RISK > 5.0 Performed By: #### L IPID #### [address] [id number] Triglyceride [Mass/Vol] 109 mg/dL Normal 0 - 149 [facility] Comment on above: Result Comment: [...] dosing. Performed By: #### L IPID #### [address] [id number] Laboratory - Chemistry and C hemistry - challengeon 04-29-2022 Albumin BCP dye [Mass/Vol] 4.2 g/dL 3.4 - 5.0 HW-HUPG-Zbqm 1895F Work Phone: ALP [Catalytic activity/Vol] 71 U/L 33 - 136 RA-FHBC-Jcje 4245F Work Phone: ALT With P-5'-P [Catalytic activity/Vol] 23 U/L 7 - 45 RF-XPLB-Ouep 4106M Work Phone: Comment on above: Patients treated wit h Sulfasalazine may generate falsely decreased results for ALT. Anion gap [Moles/Vol] 13 mmol/L 10 - 20 WI-TAQS-Utqr 253 Work Phone: AST With P-5'-P [Catalytic activity/Vol] 24 U/L 9 - 39 TL-WEJQ-Umze 2535A Work Phone: Bilirubin [Mass/Vol] 0.4 mg/dL 0.0 - 1.2 ME-RSSS-Afau 2535A Work Phone: Calcium [Mass/Vol] 9.4 mg/dL 8.6 - 10.3 MP-WSP C-Laila Cantrell Work Phone: Chloride [Moles/Vol] 106 mmol/L 98 - 107 PH-YDWY-Bprg 2535A Work Phone: CO2 [Moles/Vol] 25 mmol/L 21 - 32 -Digit[employer]PC-Lauryn quigley Work Phone: Creatinine [Mass/Vol] 0.69 mg/dL See Below CI-QZNE-Otri 2535A Work Phone: Comment on above: Reference Range: 0.5 0 - 1.05 Glucose [Mass/Vol] 79 mg/dL 74 - 99 MP-WSP C-Laila Cantrell Work Phone: [phone] Potassium [Moles/Vol] 4.1 mmol/L 3.5 - 5.3 TM-HJMK-Ldfj 2535A Work Phone: Protein [Mass/Vol] 7.4 g/dL 6.4 - 8.2 MP-WSP C-Laila Cantrell Work Phone: Sodium [Moles/Vol] 140 mmol/L 136 - 145 MP-WSP C-Lailagloria Cantrell Work Phone: [phone] Urea nitrogen [Mass/Vol] 12 mg/dL 6 - 23 BI-OSJS-Qrjo 2535A Work Phone: [phone] Laboratory - Hematology and Cell countson 04-29-2022 Erythrocyte distribution width (RBC) [Ratio] 14.0 % See Below ZK-TSMQ-Ogtz 2535A Work Phone: Comment on above: Reference Range: 11. 5 - 14.5 Hematocrit (Bld) [Volume fraction] 41.0 % See Below OL-UJVQ-Dtrn 2535A Work Phone: Comment on above: Reference Range: 36. 0 - 46.0 Hemoglobin (Bld) [Mass/Vol] 12.9 g/dL See Below LA-JVHM-Mjlf 2535A Work Phone: Comment on above: Reference Range: 12. 0 - 16.0 MCHC (RBC) [Mass/Vol] 31.5 g/dL below low threshold See Below HQ-YRWM-Knrt 2535A Work Phone: Comment on above: Reference Range: 32. 0 - 36.0 MCV (RBC) [Entitic vol] 97 fL 80 - 100 SZ-QDYE-Upyr 2535A Work Phone: Platelets (Bld) [#/Vol] 268 10*3/uL 150 - 450 NY-KKKR-Uymw 2535A Work Phone: RBC (Bld) [#/Vol] 4.24 {x10E12/L} See Below MP -WSPC-Laila 2535A Work Phone: Comment on above: Reference Range: 4.0 0 - 5.20 WBC (Bld) [#/Vol] 6.0 10*3/uL 4.4 - 11.3 MP-WSP C-Laila 3D Work Phone: Lipid Panelon 04-29-2022 Cholesterol [Mass/Vol] 198 mg/dL 0 - 199 PS-HLBN-Hxmh 2535A Work Phone: Comment on above: . [...] dosing. Cholesterol in HDL [Mass/Vol] 89.0 mg/dL [facility] ([facility] 4430M Work Phone: Comment on above: . AGE VERY LOW LOW N ORMAL HIGH 0-19 Y < 35 < 40 40-45 ---- 20- 24 Y ---- < 40 >45 ---- >24 Y ---- < 40 40-60 >60. Cholesterol in LDL [Mass/Vol] 87 mg/dL 0 - 99 [employer] Work Phone: Comment on above: . NEAR BORD AGE CHERRIE RABLE OPTIMAL HIGH HIGH VERY HIGH 0-19 Y 0 - 109 --- 110-129 >/= 130 ---- 20-24 Y 0 - 119 --- 120-159 >/= 160 ---- >24 Y 0 - 99 100-129 130-159 160-189 >/=190. Cholesterol.total/ Cholesterol in HDL [Mass ratio] 2.2 {ratio} [facility] ([facility] 9163I Work Phone: Comment on above: REF VALUESDESIRABLE < 3.4HIGH RISK > 5.0 Triglyceride [Mass/Vol] 109 mg/dL 0 - 149 [facility] ([facility] 5250N Work Phone: Comment on above: . AGE [...] Lipid Panel 22 mg/dL 0 - 40 WZ-EVAQ-Csey 2363G Work Phone: Medicare Annual Wellness Vis shaun 04-29-2022 Medicare Annual Wellness Visit *Chief Complaint [...] Touchworks No Panel Informationon 04-29 >90 >90 EM-ALPN-Syja 9106J Work Phone: Comment on above: CALCULATIONS OF RYAN MATED GFR ARE PERFORMED USING THE 2020 CKD-EPI STUDY REFIT EQUATION WITHOUT THE RACE VARIABLE FOR THE IDMS-TRACEABLE CREATININE METHODS.https://jasn.asnjournals.org/content//ASN.2 120367108 TSHon 04-29-2022 TSH Qn 1.70 m[IU]/L Normal 0.44 - 3.98 [facility] Comment on above: Result Comment: TSH testing is performed using different testing methodology at [facility] than at other [facility]. Direct result comparisons should only be made within the same method. Performed By: #### T SH2 ####[address] [id number] TSH - Thyroid Stimulating Ho liliana, Serumon 04-29-2022 TSH Qn 1.70 m[IU]/L See Below KK-YEDS-Joeu 3019J Work Phone: Comment on above: Reference Range: 0.4 4 - 3.98 TSH testing is performed using different testing methodology at [facility] than at other [facility]. Direct result comparisons should only be made within the same method. Tobacco Screening.on 022 Adult depression screening assessment No QI-YIYJ-Tigo 2530B Work Phone: Fall risk assessment b) One or more falls in the last year PE-HHGH-Ojog 2538O Work Phone: Tobacco use status CPHS b) No GZ-QERT-Htko 2535A Work Phone: VITAMIN B12on 04-29-2022 Cobalamin (Vitamin B12) [Mass/Vol] 417 pg/mL Normal 211 - 911 [facility] Comment on above: Performed By: #### V TB12 ####[facility] [place], [place] [id number] VITAMIN D, 25-HYDROXYon 10-0 VITAMIN D, 25-HYDROXY 31 ng/mL Normal [facility] Comment on above: Result Comment: . DEFICIENCY: < 20 NG/ML INSUFFICIENCY: 20-29 NG/ML SUFFICIENCY: 30-100 NG/ML THIS ASSAY ACCURATELY QUANTIFIES THE SUM OF VITAMIN D3, 25-HYDROXY AND VIT D2,25-HYDROXY. Performed By: #### V TDOH #### [facility] [address] [place], [place] [id number] Vitamin B12, Serumon 022 Cobalamin (Vitamin B12) [Mass/Vol] 417 pg/mL 211 - 911 [facility] ([facility] 4687G Work Phone: Vitamin D 25-Hydroxyon 04-29 25-hydroxyvitamin D3 [Mass/Vol] 31 ng/mL BS-OGEU-Kotp 2535A Work Phone: Comment on above: .DEFICIENCY: < 20 NG /MLINSUFFICIENCY: 20-29 NG/MLSUFFICIENCY: 30-100 NG/MLTHIS ASSAY ACCURATELY QUANTIFIES THE SUM OFVITAMIN D3, 25-HYDROXY AND VIT D2,25-HYDROXY. BASIC METABOLIC PANELon 03-28 Anion gap [Moles/Vol] 15 mmol/L Normal 10 - 20 [facility] Comment on above: Performed By: #### B MP #### [facility] [address] [place], [place] [id number] Calcium [Mass/Vol] 9.6 mg/dL Normal 8.6 - 10.3 [facility] [place] Comment on above: Performed By: #### B MP #### [facility] [address] [place], [place] [phone] Chloride [Moles/Vol] 106 mmol/L Normal 98 - 107 [facility] Comment on above: Performed By: #### B MP #### [address] [id number] Creatinine [Mass/Vol] 0.80 mg/dL Normal 0.50 - 1.05 [facility] Comment on above: Performed By: #### B MP #### [address] [id number] GFR/1.73 sq M.predicted among non-blacks MDRD (S/P/Bld) [Vol rate/Area] 78 mL/min/{1.73_m2} Normal >90 [facility] Comment on above: Result Comment: CALC ULATIONS OF ESTIMATED GFR ARE PERFORMED USING THE 2020 CKD-EPI STUDY REFIT EQUATION WITHOUT THE RACE VARIABLE FOR THE IDMS-TRACEABLE CREATININE METHODS. https://jasn.asnjournals.org/content/early//ASN.213846786 8 Performed By: #### B MP #### [address] [id number] Glucose [Mass/Vol] 67 mg/dL Low 74 - 99 [facility] [place] Comment on above: Performed By: #### B MP #### [address] [id number] HCO3 (Bld) [Moles/Vol] 22 mmol/L Normal 21 - 32 [facility] Comment on above: Performed By: #### B MP #### [address] [id number] Potassium [Moles/Vol] 3.6 mmol/L Normal 3.5 - 5.3 [facility] Comment on above: Performed By: #### B MP #### [address] [id number] Sodium [Moles/Vol] 139 mmol/L Normal 136 - 145 [facility] [place] Comment on above: Performed By: #### B MP #### [address] [id number] Urea nitrogen [Mass/Vol] 17 mg/dL Normal 6 - 23 [facility] Comment on above: Performed By: #### B MP #### [address] [id number] CBCon 04-12-2022 Erythrocyte distribution width (RBC) [Ratio] 13.8 % Normal 11.5 - 14.5 [facility] Comment on above: Performed By: #### C BC #### [address] [id number] Hematocrit (Bld) [Volume fraction] 41.1 % Normal 36.0 - 46.0 [facility] Comment on above: Performed By: #### C BC #### [address] [id number] Hemoglobin (Bld) [Mass/Vol] 13.0 g/dL Normal 12.0 - 16.0 [facility] Comment on above: Performed By: #### C BC #### [address] [id number] MCHC (RBC) [Mass/Vol] 31.6 g/dL Low 32.0 - 36.0 [facility] Comment on above: Performed By: #### C BC #### [address] [id number] MCV (RBC) [Entitic vol] 97 fL Normal 80 - 100 [facility] Comment on above: Performed By: #### C BC #### [address] [id number] Platelets (Bld) [#/Vol] 287 10*3/uL Normal 150 - 450 [facility] Comment on above: Performed By: #### C BC #### [address] [id number] RBC 4.24 x10E12/L Normal 4.00 - 5.20 [facility] Comment on above: Performed By: #### C BC #### [address] [id number] WBC (Bld) [#/Vol] 5.9 10*3/uL Normal 4.4 - 11.3 [facility] [place] Comment on above: Performed By: #### C BC #### [address] [id number] Laboratory - Chemistry and C hemistry - challengeon 04-12-2022 Anion gap [Moles/Vol] 15 mmol/L 10 - 20 CV-SRVC-Qiee 2535A Work Phone: Calcium [Mass/Vol] 9.6 mg/dL 8.6 - 10.3 MP-WSP C-[place] 2535A Work Phone: Chloride [Moles/Vol] 106 mmol/L 98 - 107 ME-OFZG-Mydq 2535A Work Phone: CO2 [Moles/Vol] 22 mmol/L 21 - 32 MP-WSPC-A von 2535A Work Phone: Creatinine [Mass/Vol] 0.80 mg/dL See Below XX-NXSM-Bqad 2535A Work Phone: Comment on above: Reference Range: 0.5 0 - 1.05 Glucose [Mass/Vol] 67 mg/dL below low threshold 74 - 99 PK-ESAA-Elrn 2535A Work Phone: Potassium [Moles/Vol] 3.6 mmol/L 3.5 - 5.3 XM-RGRS-Rcmc 2535A Work Phone: Sodium [Moles/Vol] 139 mmol/L 136 - 145 MP-WSP C-[place] 2535A Work Phone: Urea nitrogen [Mass/Vol] 17 mg/dL 6 - 23 SR-ONZK-Mwwm 2535A Work Phone: Laboratory - Hematology and Cell countson 04-12-2022 Erythrocyte distribution width (RBC) [Ratio] 13.8 % See Below ML-UFMK-Ekyt 2535A Work Phone: Comment on above: Reference Range: 11. 5 - 14.5 Hematocrit (Bld) [Volume fraction] 41.1 % See Below VL-PSTF-Vjam 2535A Work Phone: Comment on above: Reference Range: 36. 0 - 46.0 Hemoglobin (Bld) [Mass/Vol] 13.0 g/dL See Below JK-BFEX-Qnlj 2535A Work Phone: Comment on above: Reference Range: 12. 0 - 16.0 MCHC (RBC) [Mass/Vol] 31.6 g/dL below low threshold See Below DN-YKOK-Uozf 2535A Work Phone: Comment on above: Reference Range: 32. 0 - 36.0 MCV (RBC) [Entitic vol] 97 fL 80 - 100 WS-EDNE-Unfa 2535A Work Phone: Platelets (Bld) [#/Vol] 287 10*3/uL 150 - 450 XF-PYAF-Gxrh 2535A Work Phone: RBC (Bld) [#/Vol] 4.24 {x10E12/L} See Below MP -WSPC-Laila 2535A Work Phone: Comment on above: Reference Range: 4.0 0 - 5.20 WBC (Bld) [#/Vol] 5.9 10*3/uL 4.4 - 11.3 MP-WSP C-[place] 2535A Work Phone: No Panel Informationon 04-12 78 {mL/min/1.73m2} >90 MP-WSP C-Laila 2535A Work Phone: Comment on above: CALCULATIONS OF RYAN MATED GFR ARE PERFORMED USING THE 2020 CKD-EPI STUDY REFIT EQUATION WITHOUT THE RACE VARIABLE FOR THE IDMS-TRACEABLE CREATININE METHODS.https://jasn.asnjournals.org/content//ASN.2 399351966 Office Visit (Primary Care T xt/Forms)on 04-12-2022 Follow-up visit Diagnoses/Problems Assessed Encounter for immunization (V03.89) (Z23) Finger swelling (729.81) (M79.89) Orders Encounter for immunization Administered: Fluzone High-Dose Quadrivalent 0.7 ML Intramuscular Suspension Prefilled Syringe Finger swelling Start: methylPREDNISolone 4 MG Oral Tablet Therapy Pack (Medrol); USE DIRECTED Basic Metabolic Panel; Status:Complete; Done: [id number] 12:16PM Complete Blood Count; Status:Complete; Done: [id number] 12:16PM Sedimentation Rate, Erythrocyte; Status:Complete; Done: 01Ysx1465 12:16PM Uric Acid, Serum; Status:Complete; Done: 81Seh3177 12:16PM Xray Finger(s) Min 2 View; Status:Hold For - Scheduling; Requested for:[id number]; Laterality : Left Radiologist to Determine Optimal [...] DAILY. Allergies Medication Codeine Derivatives Tylenol NonMedication [place] mold Mold Vitals Vital Signs Recorded: [id number] 11:45AM Temperature: 98.2 F Heart Rate: 72 Respiration: 18 Systolic: 126 Diastolic: 80 Weight: 167 lb (more content not included)... Normal Touchworks SEDIMENTATION RATE, ERYTHROC YTEon 04-12-2022 SEDIMENTATION RATE, ERYTHROCYTE 9 mm/h Normal 0 - 30 [facility] Comment on above: Result Comment: Plea se note new reference ranges as of 12/03/2021. Ran on alternate instrument Reference Ranges: Males: 0-15 Females: 0-20 Children under 18: 0-10 Performed By: #### E SRWS #### [address] [id number] Sedimentation Rate, Erythroc yteon 04-12-2022 ESR (Bld) [Velocity] 9 mm/h 0 - 30 FE-GENE-Vagk 2535A Work Phone: Comment on above: Please note new refe rence ranges as of 12/03/2021.Ran on alternate instrumentReference Ranges: Males: 0-15 Females: 0-20 Children under 18: 0-10 Tobacco Screening.on 022 Fall risk assessment b) One or more falls in the last year EC-JSYK-Qeqh 2535A Work Phone: Tobacco use status CPHS b) No XW-KYCV-Ayav 2535A Work Phone: URIC ACIDon 04-12-2022 Urate [Mass/Vol] 4.2 mg/dL Normal 2.3 - 6.7 [facility] Comment on above: Result Comment: Rachael puncture immediately after or during the administration of Metamizole may lead to falsely low results. Testing should be performed immediately prior to Metamizole dosing. Performed By: #### U AILYN #### [address] [id number] Uric Acid, Serumon Urate [Mass/Vol] 4.2 mg/dL 2.3 - 6.7 MP-WSPC- Laila 2530Z Work Phone: Comment on above: Venipuncture immedia tely after or during the administration of Metamizole may lead to falsely low results. Testing should be performed immediately prior to Metamizole dosing. DIGITAL MAMM SCREENING W/ TO Taylor 11-20-2021 DIGITAL MAMM SCREENING W/ CLAUDIA Patient Name: BRIGITTE HIGH STUDY: DIGITAL MAMM SCREENING W/ CLAUDIA; 11/20/2021 12:37 pm ACCESSION NUMBER(S): [id number] ORDERING CLINICIAN: JING CAMPBELL INDICATION: Right breast [...] any future breast imaging appointments, please call [phone]). Electronically signed by: BUCK HIGUERA MD [facility] Mamm - Screening Mammogram w / Tomosynthesison 11-20-2021 MG Breast Screening Normal [facility] Work Phone: No Panel Informationon 11-20 Please click on the link to view the study images Normal [facility] Work Phone: Normal TD-THXN-Jtiu 8886S Work Phone: SPINE, LUMBOSACRAL MIN 4 VIE WSon 11-20-2021 SPINE, LUMBOSACRAL MIN 4 VIEWS Patient Name: BRIGITTE HIGH STUDY: Lumbar Spine, 5 views. INDICATION: lbp M54.9: Back pain. COMPARISON: 07/15/2020. ACCESSION NUMBER(S): [id number] ORDERING CLINICIAN: JING CAMPBELL FINDINGS: Moderate levoscoliosis centered in the mid lumbar region. Grade 1 L5-S1 anterolisthesis noted. Moderate spondylosis at L2-3 with disc height loss and endplate sclerosis. Mild spondylosis at L3-4. Uugc-qi-syxujehj facet joint degenerative changes throughout the lumbar spine. No spondylolysis on the oblique views. Atherosclerosis of the abdominal aorta noted Vertebral body heights are preserved. Posterior elements are intact. IMPRESSION: 1. Moderate levoscoliosis with lumbar spine degenerative changes as described above that are most pronounced at L2-3 and L3-4. 2. Grade 1 L5-S1 anterolisthesis. Electronically signed by: POORNIMA MONTERO MD [facility] Tobacco Screening.on Last menstrual period start date hysterectomy [facility] Work Phone: Tobacco use status [facility] b) No [facility] Work Phone: CHEST 2 VIEW PA AND LATon CHEST 2 VIEW PA AND LAT Patient Name: BRIGITTE HIGH STUDY: TH CHEST 2 VIEW PA AND LAT; INDICATION: pain. Cough. History of breast cancer and history of smoking. COMPARISON: 07/27/2020 ACCESSION NUMBER(S): [id number] ORDERING CLINICIAN: IJNG CAMPBELL FINDINGS: The cardiac silhouette size is [...] Electronically signed by: POORNIMA MONTERO MD Normal [facility] Cult, Urineon 04-04-2021 Bacteria identified Cx Nom (U) UZ-PRJI-Zvty 1964E Work Phone: Laboratory - Chemistry and C hemistry - challengeon 04-04-2021 Albumin BCP dye [Mass/Vol] 4.2 g/dL 3.4 - 5.0 MR-CKOP-Bjpv 2535A Work Phone: ALP [Catalytic activity/Vol] 81 U/L 33 - 136 WZ-YXLK-Ewen 2535A Work Phone: ALT With P-5'-P [Catalytic activity/Vol] 24 U/L 7 - 45 PD-KNBB-Ipxf 2535A Work Phone: Comment on above: Patients treated wit h Sulfasalazine may generate falsely decreased results for ALT. Anion gap [Moles/Vol] 12 mmol/L 10 - 20 PH-PJZB-Ywri 2535A Work Phone: AST With P-5'-P [Catalytic activity/Vol] 22 U/L 9 - 39 XZ-TZTD-Leuo 2535A Work Phone: Bilirubin [Mass/Vol] 0.4 mg/dL 0.0 - 1.2 SG-NKNS-Nyui Guy Work Phone: Calcium [Mass/Vol] 9.6 mg/dL 8.6 - 10.3 MP-WSP C-Lailagloria Cantrell Work Phone: Chloride [Moles/Vol] 107 mmol/L 98 - 107 YD-HQZV-Pgqh 2535A Work Phone: CO2 [Moles/Vol] 26 mmol/L 21 - 32 MP-WSPC-A onel Cantrell Work Phone: Creatinine [Mass/Vol] 0.65 mg/dL See Below UW-ZURG-Ugnf 2535A Work Phone: Comment on above: Reference Range: 0.5 0 - 1.05 Glucose [Mass/Vol] 89 mg/dL 74 - 99 MP-WSP C-Laila Tovar Work Phone: Potassium [Moles/Vol] 4.7 mmol/L 3.5 - 5.3 VC-THWA-Ebxt 2535A Work Phone: Protein [Mass/Vol] 7.2 g/dL 6.4 - 8.2 MP-WSP C-Laila Cantrell Work Phone: Sodium [Moles/Vol] 140 mmol/L 136 - 145 MP-WSP C-Lailagloria Cantrell5A Work Phone: Urea nitrogen [Mass/Vol] 12 mg/dL 6 - 23 AJ-DTQH-Zrbi Guy Work Phone: Laboratory - Hematology and Cell countson 04-04-2021 Erythrocyte distribution width (RBC) [Ratio] 13.8 % See Below KU-XQBA-Kydw Guy Work Phone: Comment on above: Reference Range: 11. 5 - 14.5 Hematocrit (Bld) [Volume fraction] 41.7 % See Below TX-ZKAK-Dpdl 2535A Work Phone: Comment on above: Reference Range: 36. 0 - 46.0 Hemoglobin (Bld) [Mass/Vol] 13.2 g/dL See Below WN-CWWB-Quks 2535A Work Phone: Comment on above: Reference Range: 12. 0 - 16.0 MCHC (RBC) [Mass/Vol] 31.7 g/dL below low threshold See Below AB-ZIAG-Uwql 2535A Work Phone: Comment on above: Reference Range: 32. 0 - 36.0 MCV (RBC) [Entitic vol] 98 fL 80 - 100 TJ-YJWG-Zgwk 2535A Work Phone: Platelets (Bld) [#/Vol] 247 10*3/uL 150 - 450 NZ-OJPZ-Iews 2535A Work Phone: RBC (Bld) [#/Vol] 4.26 {x10E12/L} See Below MP -WSPC-[place] 2535A Work Phone: Comment on above: Reference Range: 4.0 0 - 5.20 WBC (Bld) [#/Vol] 4.7 10*3/uL 4.4 - 11.3 MP-WSP C-[place] 2426D Work Phone: Lipid Panelon 04-04-2021 Cholesterol [Mass/Vol] 206 mg/dL above high threshold 0 - 199 YJ-ETWX-Akxz 2535A Work Phone: Comment on above: . [...] dosing. Cholesterol in HDL [Mass/Vol] 79.0 mg/dL [facility] 7048T Work Phone: Comment on above: . AGE VERY LOW LOW N ORMAL HIGH 0-19 Y < 35 < 40 40-45 ---- 20- 24 Y ---- < 40 >45 ---- >24 Y ---- < 40 40-60 >60. Cholesterol in LDL [Mass/Vol] 95 mg/dL 0 - 99 [facility] 8831G Work Phone: Comment on above: . NEAR BORD AGE CHERRIE RABLE OPTIMAL HIGH HIGH VERY HIGH 0-19 Y 0 - 109 --- 110-129 >/= 130 ---- 20-24 Y 0 - 119 --- 120-159 >/= 160 ---- >24 Y 0 - 99 100-129 130-159 160-189 >/=190. Cholesterol.total/ Cholesterol in HDL [Mass ratio] 2.6 {ratio} [facility] 8951Q Work Phone: Comment on above: REF VALUESDESIRABLE < 3.4HIGH RISK > 5.0 Triglyceride [Mass/Vol] 161 mg/dL above high threshold 0 - 149 [facility] 1885D Work Phone: Comment on above: . AGE [...] Lipid Panel 32 mg/dL 0 - 40 QU-ITCX-Zaxc Work Phone: No Panel Informationon 04-04 >60 >60 CB-OPMP-Vvtr 2535A Work Phone: Comment on above: CALCULATIONS OF RYAN MATED GFR ARE PERFORMED USING THE MDRD STUDY EQUATION FOR THE IDMS-TRACEABLE CREATININE METHODS. CLIN CHEM 2007;53:766-72 Radiologyon 04-04-2021 XR Chest 2 Views Normal MP-WSPC- [place] Work Phone: Urinalysison 04-04-2021 Color (U) YELLOW See Below RX-EAMI-Gigi Work Phone: Comment on above: Reference Range: STR AW,YELLOW Glucose Ql (U) Negative NEGATIVE MP-WSPC-Av on Work Phone: Ketones Ql (U) Negative NEGATIVE MP-WSPC-Av on Work Phone: Leukocyte esterase Test strip Ql (U) LARGE (3+) Abnormal NEGATIVE FN-BFUL-Lqhm Work Phone: pH (U) 5.0 [pH] 5.0 - 8.0 QH-HXTQ-Ytbk Work Phone: Protein (U) [Mass/Vol] Negative NEGATIVE HQ-QYJF-Czko Work Phone: RBC (U) [#/Vol] Negative NEGATIVE MP-WSPC-A von Work Phone: Specific gravity (U) [Rel density] 1.016 1 See Below LM-FDAK-Yzwm Work Phone: Comment on above: Reference Range: 1.0 05 - 1.035 Urinalysis Negative NEGATIVE CU-WPJE-Lhsz Work Phone: Urinalysis <2.0 0.0 - 1.9 WF-FOKC-Wclg 253 Work Phone: Urinalysis CLEAR CLEAR XJ-GUPI-Cmyp Work Phone: Urinalysis, Microscopicon Urinalysis, Microscopic <1 0-5 EQ-QXXG-Oyqd Work Phone: Urinalysis, Microscopic 1 {/HPF} 0-5 YK-DFRL-Czqz Work Phone: Vitamin D 25-Hydroxyon 04-04 25-hydroxyvitamin D3 [Mass/Vol] 34 ng/mL CZ-CPXZ-Evpk Work Phone: Comment on above: .DEFICIENCY: < 20 NG /MLINSUFFICIENCY: 20-29 NG/MLSUFFICIENCY: 30-100 NG/MLTHIS ASSAY ACCURATELY QUANTIFIES THE SUM OFVITAMIN D3, 25-HYDROXY AND VIT D2,25-HYDROXY. BILATERAL KNEE 3 VIEWSon BILATERAL KNEE 3 VIEWS Patient Name: BRIGITTE HIGH STUDY: BILATERAL KNEE; 3 VIEWS; 02/20/2021 12:06 pm INDICATION: right lateral knee pain. COMPARISON: None. ACCESSION NUMBER(S): [id number] ORDERING CLINICIAN: JING CAMPBELL FINDINGS: Bilateral knees, three views of each Mild tricompartmental osteophytosis bilaterally. There is no joint space narrowing. There is no effusion. No fracture seen IMPRESSION: Mild degenerative changes with osteophyte formation Electronically signed by: RIKY MCDONOUGH MD [facility] C Reactive Protein, Serumon 02-20-2021 CRP [Mass/Vol] 0.59 mg/dL MP-WSPC-Av on Work Phone: Comment on above: REF VALUE< 1.00 Citrulline Antibodyon 2020 Cyclic citrullinated peptide IgG Qn <1 SN-TKTF-Yjre Work Phone: Comment on above: THE TEST [...] dye [Mass/Vol] 4.3 g/dL 3.4 - 5.0 XL-JFZH-Djye 2535A Work Phone: ALP [Catalytic activity/Vol] 70 U/L 33 - 136 IG-RFKA-Myjr 2535A Work Phone: ALT With P-5'-P [Catalytic activity/Vol] 23 U/L 7 - 45 HA-IDMP-Tudu 2535A Work Phone: Comment on above: Patients treated wit h Sulfasalazine may generate falsely decreased results for ALT. Anion gap [Moles/Vol] 13 mmol/L 10 - 20 AQ-FTSW-Jiin 2535A Work Phone: AST With P-5'-P [Catalytic activity/Vol] 27 U/L 9 - 39 NR-CCBX-Uxxs 2535A Work Phone: Bilirubin [Mass/Vol] 0.5 mg/dL 0.0 - 1.2 EZ-SWVQ-Ctxm 2535A Work Phone: Calcium [Mass/Vol] 9.6 mg/dL 8.6 - 10.3 MP-WSP C-[place] Work Phone: Chloride [Moles/Vol] 107 mmol/L 98 - 107 VK-CYIT-Csow 2535A Work Phone: CO2 [Moles/Vol] 23 mmol/L 21 - 32 MP-WSPC-A von 253 Work Phone: Creatinine [Mass/Vol] 0.71 mg/dL See Below ZA-SWTY-Cqvv 2535A Work Phone: [phone] Comment on above: Reference Range: 0.5 0 - 1.05 Glucose [Mass/Vol] 82 mg/dL 74 - 99 MP-WSP C-[place] 2535A Work Phone: Potassium [Moles/Vol] 4.2 mmol/L 3.5 - 5.3 EW-PELZ-Qjok 2535A Work Phone: Protein [Mass/Vol] 7.2 g/dL 6.4 - 8.2 MP-WSP C-[place] 2535A Work Phone: Sodium [Moles/Vol] 139 mmol/L 136 - 145 MP-WSP C-Laila Óscar5A Work Phone: Urea nitrogen [Mass/Vol] 18 mg/dL 6 - 23 JG-VEGE-Kvxi 2535A Work Phone: Laboratory - Hematology and Cell countson 02-20-2021 Erythrocyte distribution width (RBC) [Ratio] 14.3 % See Below YW-XEPQ-Vakk 2535A Work Phone: Comment on above: Reference Range: 11. 5 - 14.5 Hematocrit (Bld) [Volume fraction] 41.3 % See Below YA-RZIL-Mdwx 253Jose Luis Work Phone: Comment on above: Reference Range: 36. 0 - 46.0 Hemoglobin (Bld) [Mass/Vol] 13.0 g/dL See Below PX-UNZB-Xutq 2535A Work Phone: Comment on above: Reference Range: 12. 0 - 16.0 MCHC (RBC) [Mass/Vol] 31.5 g/dL below low threshold See Below VF-ZEVP-Olzd 2535A Work Phone: Comment on above: Reference Range: 32. 0 - 36.0 MCV (RBC) [Entitic vol] 100 fL 80 - 100 QI-FWMM-Qizq 2535A Work Phone: Platelets (Bld) [#/Vol] 261 10*3/uL 150 - 450 WN-YDTW-Qzdi 2535A Work Phone: RBC (Bld) [#/Vol] 4.13 {x10E12/L} See Below MP -WSPC-Laila Guy Work Phone: Comment on above: Reference Range: 4.0 0 - 5.20 WBC (Bld) [#/Vol] 6.0 10*3/uL 4.4 - 11.3 MP-WSP C-Laila Guy Work Phone: Laboratory - Serology - non- microon 02-20-2021 Nuclear Ab Hep2 substrate Ql (S) Negative NEGATIVE AX-GHSP-Gbvy Guy Work Phone: Comment on above: The Antinuclear Anti body (JACOB) test was performed using indirect immunofluorescence assay with HEp-2 cells slide. No Panel Informationon 02-20 >60 >60 XR-SFWV-Lsxg Guy Work Phone: Comment on above: CALCULATIONS OF RYAN MATED GFR ARE PERFORMED USING THE MDRD STUDY EQUATION FOR THE IDMS-TRACEABLE CREATININE METHODS. CLIN CHEM 2007;53:766-72 Radiologyon 02-20-2021 XR Knee - bilateral 3 Views Normal SO-LNYD-Hirx Guy Work Phone: XR Knee - bilateral 3 Views Please click on the link to view the study images Normal TS-BVQT-Ziav Guy Work Phone: Rheumatoid Factor, Serum or Plasmaon 02-20-2021 Rheumatoid factor Nephelometry Qn (S) <10 0 - 15 PY-SRUN-Dsqt Guy Work Phone: Sedimentation Rate, Erythroc yteon 02-20-2021 ESR (Bld) [Velocity] 8 mm/h 0 - 20 CD-JZTG-Pbet 2535A Work Phone: TSH - Thyroid Stimulating Ho rmone, Serumon 02-20-2021 TSH Qn 2.66 m[IU]/L See Below FX-HAQY-Zxbn Guy Work Phone: Comment on above: Reference Range: 0.4 4 - 3.98 TSH testing is performed using different testing methodology at [facility] than at other [place] [facility]. Direct result comparisons should only be made within the same method. Uric Acid, Serumon 1 Urate [Mass/Vol] 4.5 mg/dL 2.3 - 6.7 [employer] Work Phone: Comment on above: Venipuncture immedia tely after or during the administration of Metamizole may lead to falsely low results. Testing should be performed immediately prior to Metamizole dosing. Vitamin B12, Serumon 021 Cobalamin (Vitamin B12) [Mass/Vol] 306 pg/mL 211 - 911 BG-BFKG-Tvmh 2539N Work Phone: CA27.29 (CA15-3)on 1 Cancer Ag 27-29 Qn 44.7 [arb'U]/mL above high threshold 0.0 - 38.6 [employer] Work Phone: Comment on above: CA 27.29 testing is performed by chemiluminescent immunoassay using the [employer]WINLINX. Values obtained with different analytic methods cannot [...] WBC (Bld) 0.5 % 0.0 - 2.0 PZ-UQLJ-Typt [employer] Work Phone: Erythrocyte distribution width (RBC) [Ratio] 14.1 % See Below QN-NXDA-Cmvv [employer] Work Phone: Comment on above: Reference Range: 11. 5 - 14.5 Hematocrit (Bld) [Volume fraction] 36.1 % See Below JK-CSGC-Rtny [employer] Work Phone: Comment on above: Reference Range: 36. 0 - 46.0 Hemoglobin (Bld) [Mass/Vol] 11.9 g/dL below low threshold See Below CS-PYPQ-Nxqz 2535A Work Phone: Comment on above: Reference Range: 12. 0 - 16.0 Lymphocytes/100 WBC (Bld) 39.4 % See Below HJ-KTHU-Phck 2535A Work Phone: Comment on above: Reference Range: 13. 0 - 44.0 MCHC (RBC) [Mass/Vol] 33.0 g/dL See Below JJ-IHWF-Seop 2535A Work Phone: Comment on above: Reference Range: 32. 0 - 36.0 MCV (RBC) [Entitic vol] 95 fL 80 - 100 SI-TCCZ-Nlij 2535A Work Phone: Monocytes/100 WBC (Bld) 7.5 % 2.0 - 10.0 UB-ULPV-Yagy 2535A Work Phone: Neutrophils/100 WBC (Bld) 50.1 % See Below FL-AMYW-Ejja 2535A Work Phone: Comment on above: Reference Range: 40. 0 - 80.0 Platelets (Bld) [#/Vol] 225 10*3/uL 150 - 450 DN-KXZQ-Nreh 2535A Work Phone: RBC (Bld) [#/Vol] 3.80 {x10E12/L} below low threshold See Below VL-FBPN-Wuyp 2535A Work Phone: Comment on above: Reference Range: 4.0 0 - 5.20 WBC (Bld) [#/Vol] 4.0 10*3/uL below low threshold 4.4 - 11.3 IA-DWRH-Vnds 2535A Work Phone: Complete Blood Count + Differential 0.02 {x10E9/L} See Below XY-VKMS-Potw 2535A Work Phone: Comment on above: Reference Range: 0.0 0 - 0.10 Complete Blood Count + Differential 0.10 {x10E9/L} See Below CW-AVXE-Gxwb 2535A Work Phone: Comment on above: Reference Range: 0.0 0 - 0.40 Complete Blood Count + Differential 0.30 {x10E9/L} See Below AE-RZQF-Pjfw 1C Work Phone: Comment on above: Reference Range: 0.0 5 - 0.80 Complete Blood Count + Differential 1.57 {x10E9/L} See Below ZT-WECI-Qwcg 8B Work Phone: Comment on above: Reference Range: 0.8 0 - 3.00 Complete Blood Count + Differential 1.99 {x10E9/L} See Below PQ-KYOJ-Ansn 0I Work Phone: Comment on above: Reference Range: 1.6 0 - 5.50 Complete Blood Count + Differential 2.5 % 0.0 - 6.0 OU-LBBW-Cfly 8C Work Phone: Complete Blood Count + Differential 0.0 % 0.0 - 0.9 AG-QOLA-Qnij Óscar1D Work Phone: Comment on above: Immature Granulocyte Count (IG) includes promyelocytes, myelocytes and metamyelocytes but does not include bands. Percent differential counts (%) should be interpreted in the context of the absolute cell counts (cells/L). Laboratory - Chemistry and C hemistry - challengeon 12-26-2020 Albumin BCP dye [Mass/Vol] 4.4 g/dL 3.4 - 5.0 KG-TNFH-Ztmr 3T Work Phone: ALP [Catalytic activity/Vol] 66 U/L 33 - 136 QN-TXUN-Ovqm 0Z Work Phone: ALT With P-5'-P [Catalytic activity/Vol] 18 U/L 7 - 45 GT-KMJK-Nrsg 6C Work Phone: Comment on above: Patients treated wit h Sulfasalazine may generate falsely decreased results for ALT. Anion gap [Moles/Vol] 10 mmol/L 10 - 20 OH-UQOE-Begk 0S Work Phone: AST With P-5'-P [Catalytic activity/Vol] 19 U/L 9 - 39 LG-VUJP-Gacw 2535A Work Phone: Bilirubin [Mass/Vol] 0.5 mg/dL 0.0 - 1.2 CN-ZXEX-Ehpr 2535A Work Phone: Calcium [Mass/Vol] 9.6 mg/dL 8.6 - 10.3 MP-WSP C-Laila Tovar Work Phone: Chloride [Moles/Vol] 108 mmol/L above high threshold 98 - 107 QB-YXYX-Fyps 2535A Work Phone: CO2 [Moles/Vol] 25 mmol/L 21 - 32 LYN-WSPC-Lauryn Magallanes Work Phone: Creatinine [Mass/Vol] 0.70 mg/dL See Below GG-IGFP-Uovx 2535A Work Phone: Comment on above: Reference Range: 0.5 0 - 1.05 Glucose [Mass/Vol] 108 mg/dL above high threshold 74 - 99 SZ-DCSI-Tknk 2535A Work Phone: Potassium [Moles/Vol] 3.7 mmol/L 3.5 - 5.3 YD-ZVZM-Ckax 2535A Work Phone: Protein [Mass/Vol] 7.1 g/dL 6.4 - 8.2 MP-WSP C-Laila Tovar Work Phone: Sodium [Moles/Vol] 139 mmol/L 136 - 145 MP-WSP C-[place] Óscar5A Work Phone: Urea nitrogen [Mass/Vol] 16 mg/dL 6 - 23 RC-BNOB-Vuxb Óscar5A Work Phone: No Panel Informationon 12-26 >60 >60 MK-JZWP-Kbvr Guy Work Phone: Comment on above: CALCULATIONS OF RYAN MATED GFR ARE PERFORMED USING THE MDRD STUDY EQUATION FOR THE IDMS-TRACEABLE CREATININE METHODS. CLIN CHEM 2007;53:766-72 Mamm - Screening Mammogram w / Tomosynthesison 07-15-2020 MG Breast screening Interpreted by: BAILEE HUDSON09/17/19 08:23MRN: [id number] Name: BRIGITTE HIGH STUDY:DIGITAL SCREENING RIGHT-SIDED MAMMOGRAM [...] signed by: BAILEE HUTSON 07/17/20 08:23 Normal KI-WVOR-Znzc 6820G Work Phone: Comment on above: ORDER REVISED TO A D IGITAL MAMM SCREENING W/ CLAUDIA BY RADIOLOGIST; Original Order Number: [id number] Otheron 07-15-2020 XR Cervical spine 3 views Interpreted by: YASMINE GIRON07/17/20 10:01MRN: [id number] Name: BRIGITTE HIGH STUDY:SPINE, CERVICAL, 2 OR [...] signed by: YASMINE GIRON 07/17/20 10:01 Normal [facility] 6438O Work Phone: XR Lumbar spine AP and lateral Interpreted by: YASMINE GIRON07/17/20 10:02MRN: [id number] Name: BRIGITTE HIGH STUDY:SPINE, LUMBOSACRAL; 2 OR [...] signed by: YASMINE GIRON 07/17/20 10:02 Normal [facility] 2535A Work Phone: KNEES BOTH STANDINGon 2017 KNEES BOTH STANDING DATE OF EXAM: May 07 2018 1:48PM CLINICAL HISTORY/ Patient Name: BRIGITTE HIGH STUDY: KNEES BOTH STANDING; 05/07/2018 1:48 pm INDICATION: cervical radiculopathy, bilat knee pain. COMPARISON: None. ACCESSION NUMBER(S): [id number] ORDERING CLINICIAN: JING CAMPBELL FINDINGS: No fracture or dislocation of either knee. Moderate joint space narrowing. Tiny patellar osteophytes. CONCLUSION: IMPRESSION: Moderate degenerative changes of the knees. Normal [facility] SPINE C MIN 4 VIEWSon 2017 SPINE C MIN 4 VIEWS DATE OF EXAM: May 07 2018 1:48PM CLINICAL HISTORY/ Patient Name: BRIGITTE HIGH STUDY: SPINE C MIN 4 VIEWS; 05/07/2018 1:48 pm INDICATION: cervical radiculopathy, bilat knee pain. COMPARISON: None. ACCESSION NUMBER(S): [id number] ORDERING CLINICIAN: JING CAMPBELL FINDINGS: Anterior metallic [...] changes of the cervical spine. Normal [facility] LUMBAR SP WO CONTRASTon 09-26 LUMBAR SP WO CONTRAST STUDY:LUMBAR SP WO CONTRAST; 10/18/2017 8:10 amINDICATION:LUMBAR RADICULOPATHY (M54.16).COMPARISON:04/29ACCESSION NUMBER(S):[id number] RDERING CLINICIAN:Jing CampbellTECHNIQUE:Sagittal and axial T1 and [...] to theright at L3-4 and L4-5.Interpreted within [facility] [place] Normal [facility] Vital Signs Date Time Vital Sign Value Performing Clinician Facility 10-21-2024 09:15-0400 Body height 165.1 cm Lexx Diop MD Work Phone: [facility] 10-21-2024 09:15-0400 Body mass index (BMI) [Ratio] 26.96 kg/m2 Lexx Diop MD Work Phone: [facility] 10-21-2024 09:15-0400 Body temperature 97.2 [degF] Lexx Diop MD Work Phone: [facility] 10-21-2024 09:15-0400 Body weight 73.48 kg Lexx Diop MD Work Phone: [facility] 10-21-2024 09:15-0400 Diastolic blood pressure 76 mm[Hg] Lexx Diop MD Work Phone: [facility] 10-21-2024 09:15-0400 Heart rate 86 /min Lexx Diop MD Work Phone: [facility] 10-21-2024 09:15-0400 SaO2% (BldA) [Mass fraction] 97 % Lexx Diop MD Work Phone: [facility] 10-21-2024 09:15-0400 Systolic blood pressure 122 mm[Hg] Lexx Diop MD Work Phone: [facility] 09-21-2024 10:35-0500 Body height 165.1 cm Christi Jones APRN.CNP Work Phone: [facility] 09-21-2024 10:35-0500 Body mass index (BMI) [Ratio] 27.36 kg/m2 Christi Jones APRN.PRINT [employer] FEEDER Work Phone: [facility] 09-21-2024 10:35-0500 Body weight 74.57 kg Christi Karen APPLICATION SECURITY DEVELOPER.[employer] Work Phone: [facility] 09-21-2024 10:35-0500 Diastolic blood pressure 86 mm[Hg] Christi Karen APPLICATION SECURITY DEVELOPER.[employer] Work Phone: [facility] 09-21-2024 10:35-0500 Heart rate 67 /min Christi Karen APPLICATION SECURITY DEVELOPER.[employer] Work Phone: [facility] 09-21-2024 10:35-0500 Systolic blood pressure 135 mm[Hg] Christi Karen APPLICATION SECURITY DEVELOPER.[employer] Work Phone: [facility] 01-16-2024 10:23-0400 Body mass index (BMI) [Ratio] 26.89 kg/m2 Carlito Horvath MD Work Phone: [facility] 01-16-2024 10:23-0400 Body temperature 97.9 [degF] Carlito Horvath MD Work Phone: [facility] 01-16-2024 10:23-0400 Body weight 73.3 kg Carlito Horvath MD Work Phone: [facility] 01-16-2024 10:23-0400 Diastolic blood pressure 87 mm[Hg] Carlito Horvath MD Work Phone: [facility] 01-16-2024 10:23-0400 Heart rate 70 /min Carlito Horvath MD Work Phone: [facility] 01-16-2024 10:23-0400 Respiratory rate 16 /min Carlito Horvath MD Work Phone: [facility] 01-16-2024 10:23-0400 SaO2% (BldA) [Mass fraction] 96 % Carlito Horvath MD Work Phone: [facility] 01-16-2024 10:23-0400 Systolic blood pressure 137 mm[Hg] Carlito Horvath MD Work Phone: [facility] 12-21-2023 09:57-0400 Body height 165.1 cm MD Star Recinos Work Phone: [facility] 12-21-2023 09:57-0400 Body mass index (BMI) [Ratio] 26.8 kg/m2 MD Star Recinos Work Phone: [facility] 12-21-2023 09:57-0400 Body temperature 97.8 [degF] MD Star Recinos Work Phone: [facility] 12-21-2023 09:57-0400 Body weight 73.02 kg MD Star Recinos Work Phone: [facility] 12-21-2023 09:57-0400 Diastolic blood pressure 70 mm[Hg] MD Star Recinos Work Phone: [facility] 12-21-2023 09:57-0400 Heart rate 77 /min MD Star Recinos Work Phone: [facility] 12-21-2023 09:57-0400 Respiratory rate 16 /min MD Star Recinos Work Phone: [facility] 12-21-2023 09:57-0400 SaO2% (BldA) [Mass fraction] 98 % MD Star Recinos Work Phone: [facility] 12-21-2023 09:57-0400 Systolic blood pressure 112 mm[Hg] MD Star Recinos Work Phone: [facility] 08-25-2023 11:36-0500 Blood Pressure Location Star RECINOS [facility] 08-25-2023 11:36-0500 Diastolic blood pressure 84 mm[Hg] Star RECINOS [facility] 08-25-2023 11:36-0500 Heart rate 79 /min Star RECINOS [facility] 08-25-2023 11:36-0500 Respiratory rate 16 /min Star RECINOS [facility] 08-25-2023 11:36-0500 Systolic blood pressure 134 mm[Hg] Star RECINOS [facility] 12-10-2022 16:07-0400 Body height 165.1 cm Kristyn Dougherty Work Phone: -[facility] Work Phone: 12-10-2022 16:07-0400 Body mass index (BMI) [Ratio] 26.96 kg/m2 Kristyn Jean-Baptistemer Work Phone: [facility] Work Phone: 12-10-2022 16:07-0400 Body surface area Derived from formula 1.81 m2 Kristyn Dougherty Work Phone: [facility] [facility] Work Phone: 12-10-2022 16:07-0400 Body weight 73.48 kg Kristyn Dougherty Work Phone: [facility] [facility] Work Phone: 04-29-2022 11:05-0400 Body height 163.83 cm Jing Campbell Work Phone: JO-ROXY-Eyjm 2535A Work Phone: 04-29-2022 11:05-0400 Body mass index (BMI) [Ratio] 28.73 kg/m2 Jing Campbell Work Phone: ZL-KOPW-Yfyi 2535A Work Phone: 04-29-2022 11:05-0400 Body surface area Derived from formula 1.84 m2 Jing Campbell Work Phone: RF-RFJN-Jbur 2535A Work Phone: 04-29-2022 11:05-0400 Body temperature 97.5 [degF] Jing Saud Adrian Work Phone: MW-DRML-Rzvj 2535A Work Phone: 04-29-2022 11:05-0400 Body weight 77.11 kg Jing Saud Garciaey Work Phone: UY-WUFN-Goni 2535A Work Phone: 04-29-2022 11:05-0400 Diastolic blood pressure 82 mm[Hg] Jing Garciaey Work Phone: SO-SBCX-Infp 2535A Work Phone: 04-29-2022 11:05-0400 Heart rate 72 /min Jing Campbell Work Phone: VP-VVOA-Ojan 2535A Work Phone: 04-29-2022 11:05-0400 Respiratory rate 16 /min Jing Garciaey Work Phone: IE-PAUU-Gwyo 2535A Work Phone: 04-29-2022 11:05-0400 SaO2% (BldA) [Mass fraction] 98 % Jing Garciaey Work Phone: UD-YRUD-Wkgw 2535A Work Phone: 04-29-2022 11:05-0400 Systolic blood pressure 130 mm[Hg] Jing Garciaey Work Phone: OZ-NALS-Pagi 2535A Work Phone: 04-12-2022 11:45-0400 Body mass index (BMI) [Ratio] 27.79 kg/m2 Jing Campbell Work Phone: NG-YDCK-Ivif 2535A Work Phone: 04-12-2022 11:45-0400 Body surface area Derived from formula 1.83 m2 Jing Campbell Work Phone: KQ-SHDR-Lxrp 2535A Work Phone: 04-12-2022 11:45-0400 Body temperature 98.2 [degF] Jing Campbell Work Phone: UT-JUMZ-Ruew 2535A Work Phone: 04-12-2022 11:45-0400 Body weight 75.75 kg Jing Campbell Work Phone: PO-DQTC-Gnpt 2535A Work Phone: 04-12-2022 11:45-0400 Diastolic blood pressure 80 mm[Hg] Jing Campbell Work Phone: QP-OSDV-Zqle 2535A Work Phone: 04-12-2022 11:45-0400 Heart rate 72 /min Jing Campbell Work Phone: BM-LALD-Rxyh 2535A Work Phone: 04-12-2022 11:45-0400 Respiratory rate 18 /min Jing Campbell Work Phone: MV-HLOR-Jdtd 2535A Work Phone: 04-12-2022 11:45-0400 SaO2% (BldA) [Mass fraction] 98 % Jing Campbell Work Phone: ZT-SXAF-Uvvl 2535A Work Phone: 04-12-2022 11:45-0400 Systolic blood pressure 126 mm[Hg] Jing Campbell Work Phone: LQ-WCEB-Svvp 2531C Work Phone: 01-07-2022 09:18-0400 Body height 165.1 cm Jing Campbell Work Phone: [facility] Work Phone: 01-07-2022 09:18-0400 Body mass index (BMI) [Ratio] 28.11 kg/m2 Jing Campbell Work Phone: [facility] Work Phone: 01-07-2022 09:18-0400 Body surface area Derived from formula 1.84 m2 Jing Campbell Work Phone: [facility] Work Phone: 01-07-2022 09:18-0400 Body weight 76.61 kg Jing Campbell Work Phone: [facility] Work Phone: 01-07-2022 09:18-0400 Diastolic blood pressure 70 mm[Hg] Jing Campbell Work Phone: [facility] Work Phone: 01-07-2022 09:18-0400 Systolic blood pressure 118 mm[Hg] Jing Campbell Work Phone: [facility] Work Phone: 11-20-2021 13:51-0400 Body height 165.1 cm Jing Campbell Work Phone: [facility] Work Phone: 11-20-2021 13:51-0400 Body mass index (BMI) [Ratio] 28.62 kg/m2 Jing Campbell Work Phone: [facility] Work Phone: 11-20-2021 13:51-0400 Body surface area Derived from formula 1.86 m2 Jing Campbell Work Phone: [facility] Work Phone: 11-20-2021 13:51-0400 Body weight 78.02 kg Jing Campbell Work Phone: [facility] Work Phone: 11-20-2021 13:51-0400 Diastolic blood pressure 80 mm[Hg] Jing Campbell Work Phone: [facility] Work Phone: 11-20-2021 13:51-0400 Systolic blood pressure 110 mm[Hg] Jing Campbell Work Phone: [facility] Work Phone: 10-29-2021 11:29-0400 Body mass index (BMI) [Ratio] 28.62 kg/m2 Jing Campbell Work Phone: NB-VQWS-Hgkx 2535A Work Phone: 10-29-2021 11:29-0400 Body surface area Derived from formula 1.86 m2 Jing Campbell Work Phone: VX-DYUH-Ayqi 2535A Work Phone: 10-29-2021 11:29-0400 Body temperature 98.2 [degF] Jing Campbell Work Phone: WM-JDWH-Wxwo 2535A Work Phone: 10-29-2021 11:29-0400 Body weight 78.02 kg Jing Campbell Work Phone: TY-RUPL-Zujb 2535A Work Phone: 10-29-2021 11:29-0400 Diastolic blood pressure 72 mm[Hg] Jing Campbell Work Phone: YH-MXHA-Gsol 2535A Work Phone: 10-29-2021 11:29-0400 Heart rate 76 /min Jing Campbell Work Phone: RM-SRZP-Roim 2535A Work Phone: 10-29-2021 11:29-0400 Respiratory rate 18 /min Jing Campbell Work Phone: AV-NBZT-Tmfr 2535A Work Phone: 10-29-2021 11:29-0400 SaO2% (BldA) [Mass fraction] 98 % Jing Campbell Work Phone: UA-JFVJ-Tiuj 2535A Work Phone: 10-29-2021 11:29-0400 Systolic blood pressure 122 mm[Hg] Jing Campbell Work Phone: BN-HROH-Povx 2535A Work Phone: 05-08-2021 11:20-0400 Diastolic blood pressure 82 mm[Hg] Jing Campbell Work Phone: SV-ZYVV-Wsmb 2535A Work Phone: 05-08-2021 11:20-0400 Systolic blood pressure 130 mm[Hg] Jign Campbell Work Phone: MV-TMMX-Rwdx 2535A Work Phone: 05-08-2021 10:35-0400 Body height 165.1 cm Jing Campbell Work Phone: RG-WEIX-Aclf 2535A Work Phone: 05-08-2021 10:35-0400 Body mass index (BMI) [Ratio] 28.62 kg/m2 Jing Campbell Work Phone: WL-QPNI-Nyyq 2535A Work Phone: 05-08-2021 10:35-0400 Body surface area Derived from formula 1.86 m2 Jing Campbell Work Phone: NF-ZICH-Aqeu 2535A Work Phone: 05-08-2021 10:35-0400 Body temperature 97.5 [degF] Jing Garciaey Work Phone: VK-RNKW-Pbdl 2535A Work Phone: 05-08-2021 10:35-0400 Body weight 78.02 kg Jing Campbell Work Phone: LQ-HXSJ-Ygfh 2535A Work Phone: 05-08-2021 10:35-0400 Diastolic blood pressure 84 mm[Hg] Jing Campbell Work Phone: GN-VMZS-Zmxl 2535A Work Phone: 05-08-2021 10:35-0400 Heart rate 80 /min Jing Campbell Work Phone: NG-BVSR-Balg 2535A Work Phone: 05-08-2021 10:35-0400 Respiratory rate 16 /min Jing Campbell Work Phone: VK-PZSJ-Mhzd 2535A Work Phone: 05-08-2021 10:35-0400 SaO2% (BldA) [Mass fraction] 98 % Jing Campbell Work Phone: VJ-WVTE-Sjjb 2535A Work Phone: 05-08-2021 10:35-0400 Systolic blood pressure 144 mm[Hg] Jing Campbell Work Phone: PP-WRRY-Knfz 2535A Work Phone: 04-20-2021 09:27-0400 Body height 165.1 cm Jing Campbell [facility] Phone[facility] Work Phone: 04-20-2021 09:27-0400 Body mass index (BMI) [Ratio] 28.29 kg/m2 Jing Campbell Work Phone: [facility] Work Phone: 04-20-2021 09:27-0400 Body surface area Derived from formula 1.85 m2 Jing Campbell Work Phone: [facility] Work Phone: 04-20-2021 09:27-0400 Body temperature 97.3 [degF] Jing Campbell Work Phone: [facility] Work Phone: 04-20-2021 09:27-0400 Body weight 77.11 kg Jing Campbell Work Phone: [facility] Work Phone: 04-20-2021 09:27-0400 Diastolic blood pressure 93 mm[Hg] Jing Campbell Work Phone: [facility] Work Phone: 04-20-2021 09:27-0400 Heart rate 69 /min Jing Campbell Work Phone: [facility] Work Phone: 04-20-2021 09:27-0400 Systolic blood pressure 139 mm[Hg] Jing Campbell Work Phone: [facility] Work Phone: 04-04-2021 09:17-0400 Body height 165.1 cm Jing Campbell Work Phone: GL-GKNG-Yalr 2535A Work Phone: 04-04-2021 09:17-0400 Body mass index (BMI) [Ratio] 28.46 kg/m2 Jing Campbell Work Phone: TJ-VHRT-Fmtg 2535A Work Phone: 04-04-2021 09:17-0400 Body surface area Derived from formula 1.85 m2 Jing Campbell Work Phone: UE-GMQN-Vdgp 2535A Work Phone: 04-04-2021 09:17-0400 Body temperature 97.7 [degF] Jing Campbell Work Phone: EF-UPEP-Clet 2535A Work Phone: 04-04-2021 09:17-0400 Body weight 77.57 kg Jing Campbell Work Phone: MQ-SRAZ-Vkcs 2535A Work Phone: 04-04-2021 09:17-0400 Diastolic blood pressure 84 mm[Hg] Jing Campbell Work Phone: IA-UYEU-Abje 2535A Work Phone: 04-04-2021 09:17-0400 Heart rate 68 /min Jing Campbell Work Phone: RW-NAUH-Yahl 2535A Work Phone: 04-04-2021 09:17-0400 Respiratory rate 18 /min Jing Campbell Work Phone: UC-RCYQ-Dnmv 2535A Work Phone: 04-04-2021 09:17-0400 SaO2% (BldA) [Mass fraction] 98 % Jing Campbell Work Phone: VY-GDXH-Nwmx 2535A Work Phone: 04-04-2021 09:17-0400 Systolic blood pressure 128 mm[Hg] Jing Campbell Work Phone: KG-ZGPG-Mpsc 2535A Work Phone: 03-20-2021 15:27-0400 Body height 166.37 cm Jing Campbell Work Phone: HB-WNYU-Vlki 2535A Work Phone: 03-20-2021 15:27-0400 Body mass index (BMI) [Ratio] 27.04 kg/m2 Jing Campbell Work Phone: CB-IMCI-Nmap 2535A Work Phone: 03-20-2021 15:27-0400 Body surface area Derived from formula 1.83 m2 Jing Campbell Work Phone: NP-VZSM-Hitj 2535A Work Phone: 03-20-2021 15:27-0400 Body weight 74.84 kg Jing Campbell Work Phone: HQ-HFMN-Lqkp 2535A Work Phone: 02-20-2021 10:54-0400 Body mass index (BMI) [Ratio] 27.12 kg/m2 Jing Saud Adrian Work Phone: RT-VEOJ-Ifju 2535A Work Phone: 02-20-2021 10:54-0400 Body surface area Derived from formula 1.81 m2 Jing Villavicencio Adrian Work Phone: MR-ZRJL-Hjpi 2535A Work Phone: 02-20-2021 10:54-0400 Body temperature 97.2 [degF] Jing Saud Adrian Work Phone: PD-ELEK-Gsoz 2535A Work Phone: 02-20-2021 10:54-0400 Body weight 73.94 kg Jingnikhil Garciaey Work Phone: QJ-BWCS-Tcsq 2535A Work Phone: 02-20-2021 10:54-0400 Diastolic blood pressure 78 mm[Hg] Jing Campbell Work Phone: VD-HJJD-Ienu 2535A Work Phone: 02-20-2021 10:54-0400 Heart rate 72 /min Jing Campbell Work Phone: KE-MNOH-Hmii 2535A Work Phone: 02-20-2021 10:54-0400 Respiratory rate 16 /min Jing Campbell Work Phone: WN-WUWV-Sogu 2535A Work Phone: 02-20-2021 10:54-0400 SaO2% (BldA) [Mass fraction] 98 % Jing Campbell Work Phone: QK-QQVL-Cjdc 2535A Work Phone: 02-20-2021 10:54-0400 Systolic blood pressure 128 mm[Hg] Jing Campbell Work Phone: AV-HEAX-Ydgh 2538V Work Phone: 12-27-2020 09:29-0400 Body mass index (BMI) [Ratio] 26.29 kg/m2 Jing Campbell Work Phone: EB-BNHY-Dbkf 2537T Work Phone: 12-27-2020 09:29-0400 Body surface area Derived from formula 1.79 m2 Jing Campbell Work Phone: CE-CTHJ-Hbvt 2535A Work Phone: 12-27-2020 09:29-0400 Body temperature 97.8 [degF] Jing Campbell Work Phone: NR-DQEP-Teaf 2535A Work Phone: 12-27-2020 09:29-0400 Body weight 71.67 kg Jing Campbell Work Phone: ZE-OGLD-Pjdc 2535A Work Phone: 12-27-2020 09:29-0400 Diastolic blood pressure 82 mm[Hg] Jing Campbell Work Phone: EP-QNZP-Hckq 2535A Work Phone: 12-27-2020 09:29-0400 Heart rate 72 /min Jing Campbell Work Phone: AR-FUGL-Vikp 2535A Work Phone: 12-27-2020 09:29-0400 Respiratory rate 16 /min Jing Campbell Work Phone: NN-OKQO-Tgeg 2535A Work Phone: 12-27-2020 09:29-0400 SaO2% (BldA) [Mass fraction] 97 % Jing Campbell Work Phone: NH-KHIE-Exsy 2534S Work Phone: 12-27-2020 09:29-0400 Systolic blood pressure 132 mm[Hg] Jing Campbell Work Phone: UT-PPON-Rkxy 2538M Work Phone: Encounters Encounter Date Encounter Type Care Provider Facility Start: 04-04-2025 ambulatory Star Macias ty:[facility] Start: 11-15-2024 ambulatory Star Macias ty:CD:[id number] Start: 10-21-2024 End: 10-21-2024 Office outpatient new 45 minutes Lexx Diop MD Work Phone: 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); PAD (peripheral artery disease) ([facility]); Arterial embolism ([facility]) Start: 10-18-2024 End: 10-18-2024 ambulatory Star RECINOS Facility:[facility] Start: 09-21-2024 End: 09-21-2024 Telephone encounter Christi Jones APRN.CNP Work Phone: [facility] [place] Comment on above: Refill Request Start: 09-21-2024 End: 09-21-2024 Patient encounter procedure Christi Jones APRN.CNP Work Phone: [facility] [place] Comment on above: Constipation, unspec ified constipation type (Primary Dx); History of colon polyps Start: 09-13-2024 End: 09-16-2024 Telephone encounter [facility] Work Phone: [facility] Start: 06-02-2024 End: 06-02-2024 ambulatory Jadyn Ghazoul Facility:[facility] Start: 05-05-2024 End: 05-05-2024 ambulatory Jadyn Ghazoul Facility:[facility] Start: 05-03-2024 End: 05-03-2024 ambulatory Star RECINOS Facility:[id number] Start: 04-21-2024 End: 04-21-2024 ambulatory Kristyn Dougherty Facility:[facility] Start: 03-31-2024 End: 03-31-2024 ambulatory Kristyn Ladonna Facility:[facility] Start: 03-17-2024 End: 03-17-2024 ambulatory Kristyn Ladonna Facility:[facility] Start: 03-10-2024 End: 03-10-2024 ambulatory Kristyn Ladonna Facility:[facility] Start: 03-04-2024 ambulatory Jadyn Ghazoul Facility :[facility] Start: 03-04-2024 End: 03-04-2024 ambulatory Kristyn Ladonna Facility:[facility] Start: 02-18-2024 End: 02-18-2024 ambulatory Jadyn Ghazoul Facility:[facility] Start: 02-04-2024 End: 02-04-2024 ambulatory Jadyn Ghazoul Facility:[facility] Start: 01-20-2024 End: 01-20-2024 ambulatory Jadyn Ghazoul Facility:[facility] Start: 01-16-2024 End: 01-16-2024 Office outpatient visit 25 minutes Carlito Horvath MD Work Phone: [facility] Comment on above: Malignant neoplasm o f central portion of right breast in female, estrogen receptor negative (Multi) (Primary Dx); Iron deficiency; Postmenopausal osteoporosis; Peptic ulcer disease; Dry eyes; Closed sleeve fracture of left patella, sequela Start: 01-16-2024 End: 01-16-2024 ambulatory CARLITO HORVATH [facility] Start: 12-21-2023 End: 12-21-2023 ambulatory MD Star Recinos Work Phone: [facility] Work Phone: Start: 12-21-2023 End: 12-21-2023 Patient encounter procedure MD Star Recinos Work Phone: [facility] Work Phone: Start: 11-18-2023 End: 11-18-2023 ambulatory TANIAMaribeth ALEXANDRAO Not Available Start: 11-04-2023 End: 11-04-2023 ambulatory Star RECINOS [facility] Start: 11-04-2023 End: 11-04-2023 Lab Drop off Star RECINOS [facility] Start: 11-04-2023 End: 11-04-2023 ambulatory Star RECINOS Facility:[facility] Start: 11-04-2023 End: 11-04-2023 Patient encounter procedure Star RECINOS [facility] Start: 10-06-2023 End: 10-06-2023 Patient encounter procedure Star RECINOS [facility] Start: 09-25-2023 End: 09-25-2023 ambulatory Star Recinos Facility:[facility] Start: 09-25-2023 End: 09-25-2023 Departed Referred MD Star Recinos Work Phone: [facility] Start: 08-25-2023 End: 08-25-2023 Patient encounter procedure Star RECINOS [facility] Start: 03-28-2023 End: 03-28-2023 ambulatory Lawrence MEDINA Facility:[facility] Start: 03-28-2023 End: 03-28-2023 Patient encounter procedure Lawrence Medina MD Work Phone: Plastic Surgery Comment on above: Breast pain (Primary Dx); Acquired breast deformity; Capsular contracture of breast implant, initial encounter Start: 03-25-2023 End: 03-25-2023 ambulatory Lawrence MEDINA Facility:[facility] Start: 02-11-2023 Patient encounter procedure Kristyn Marie Ladonna [facility] Work Phone: Start: 02-11-2023 ambulatory MD SANDRA TAYLOR Facility: [id number] Start: 01-17-2023 ambulatory MD CARLITO HORVATH Facility:[facility] Start: 01-17-2023 ambulatory MD CARLITO HORVATH Facility:[id number] Start: 01-07-2023 ambulatory MD SANDRA TAYLOR Facility: [id number] Start: 12-18-2022 ambulatory KRISTYN DOUGHERTY Facility: H1 Start: 12-17-2022 ambulatory MD SANDRA TAYLOR Facility: [id number] Start: 12-10-2022 Patient encounter procedure Kristyn Marie Ladonna [facility] Work Phone: Start: 12-10-2022 ambulatory DO JING CAMPBELL Facility:[id number] Start: 11-28-2022 End: 11-29-[address] ILDEFONSO HO Facility:H1 Start: 10-18-2022 End: 10-19-2022 ambulatory KRISTYN DOUGHERTY Facility:H1 Start: 08-17-2022 End: 08-18-[address] ILDEFONSO HO Facility:H1 Start: 07-05-2022 End: 07-05-2022 ambulatory KRISTYN DOUGHERTY Facility:H1 Start: 06-28-2022 End: 06-28-2022 ambulatory KRISTYN DOUGHERTY Facility:H1 Start: 05-01-2022 Chart Update Jing canseco Work Phone: LV-MCLL-Iltn 2535A Work Phone: Start: 04-29-2022 ambulatory DO JING CAMPBELL Facility:[id number] Start: 04-29-2022 Current tobacco non-user cad cap copd pv dm Jing Campbell Work Phone: KD-GPVO-Ivdf 2535A Work Phone: Start: 04-16-2022 Chart Update Jing canseco Work Phone: HY-HSED-Cagj 2535A Work Phone: Start: 04-12-2022 Patient encounter procedure Jing Campbell Work Phone: YD-DHXS-Pirc 2535A Work Phone: Start: 04-12-2022 ambulatory DO JING CAMPBELL [facility]:[id number] Start: 01-07-2022 Office outpatient visit 15 minutes Jing Campbell Work Phone: [facility] Work Phone: Start: 11-30-2021 AUDIT Jing canseco Work Phone: RB-RXAS-Yjzn 2535A Work Phone: Start: 11-28-2021 AUDIT Jing canseco Work Phone: IU-MOQH-Hdpq 2535A Work Phone: Start: 11-26-2021 Chart Update Jing canseco Work Phone: BF-AQFQ-Tinx 2535A Work Phone: Start: 11-20-2021 Office outpatient new 45 minutes Jing Campbell [facility] Work Phone: Start: 10-29-2021 Office outpatient visit 25 minutes Jing Campbell Work Phone: SL-YNJK-Djun 2535A Work Phone: Start: 05-08-2021 Current tobacco non-user cad cap copd pv dm Jing Campbell Work Phone: KZ-YSMW-Vqkk 2535A Work Phone: Start: 04-20-2021 Office consultation new/estab patient 60 min Jing Campbell Work Phone: [facility] [place] Work Phone: Start: 04-04-2021 Office outpatient visit 25 minutes Jing Campbell Work Phone: HO-DSYO-Oeva 2535A Work Phone: Start: 03-13-2021 AUDIT Jing canseco Work Phone: FS-RVGX-Hkhk 2535A Work Phone: Start: 02-26-2021 AUDIT Jing canseco Work Phone: WI-VAUS-Wkrc 2535A Work Phone: Start: 02-23-2021 Chart Update Jing canseco Work Phone: CV-XWQL-Qujt 2535A Work Phone: Start: 02-20-2021 Office outpatient visit 25 minutes Jing Campbell Work Phone: IK-ZKKS-Tsbo 2535A Work Phone: Start: 02-20-2021 Patient encounter procedure Jing Campbell Work Phone: MZ-JDVQ-Cbba 2535A Work Phone: Start: 12-27-2020 Office outpatient visit 25 minutes Jing Campbell Work Phone: MU-CEHE-Hxut 2535A Work Phone: Start: 07-10-2020 Patient encounter procedure Jing Campbell KH-IBLZ-Rirf 2535A Work Phone: Start: 02-11-2020 Patient encounter procedure Jing Campbell FR-ABST-Zrai 2535A Work Phone: Start: 07-01-2019 Patient encounter procedure Jing Campbell QP-QMJD-Jyhr 2535A Work Phone: Start: 05-19-2019 Patient encounter procedure Jingnikhil Campbell JG-ITNN-Rfsq 2535A Work Phone: Start: 05-10-2019 Patient encounter procedure Jing Campbell BT-WDHG-Ycbe 2535A Work Phone: Start: 08-25-2018 Patient encounter procedure JUAN RUTHERFORD Facility:8 Start: 05-07-2018 Patient encounter procedure JINGNIKHIL CAMPBELL Facility:3 Start: 10-18-2017 Ambulatory Jing Adrian Facility :[facility] Procedures Date Procedure Procedure Detail Performing Clinician Start: 05-16-2022 Colonoscopy Carlito paul MD Work Phone: Start: 04-29-2022 Lipid 1996 panel - S saadia or Plasma Carlito Horvaht MD Work Phone: Cataract surgery Jing portillo Comment on above: bilateral 2014; Decompression of med melchor nerve Stra RECINOS Excision of breast Star W ATEMOUNA [...] Activity Detail Author Start: 05-16-2032 Screening for malignant neoplasm of colon [facility] Start: 04-29-2027 Lipid panel [facility] Start: 10-21-2025 Adult BMI Screening [facility] Start: 10-21-2025 Tobacco Screening [facility] Start: 04-29-2025 Diabetes Screening Diabetes Screening [facility] Start: 01-14-2025 End: 07-17-2025 Cancer Ag 27-29 [Units/volume] in Serum or Plasma Cancer Antigen 27-29 Lab Routine Malignant neoplasm of central portion of right breast in female, estrogen receptor negative (Multi) Expected: 01/14/2025 (Approximate), Expires: 07/17/2025 [facility] Work Phone: Comment on above: Expected: 01/14/2025 (Approximate), Expi res: 07/17/2025 Start: 01-14-2025 End: 07-17-2025 CBC W Auto Differential panel - Blood CBC and Auto Differential Lab Routine Malignant neoplasm of central portion of right breast in female, estrogen receptor negative (Multi) Expected: 01/14/2025, Expires: 07/17/2025 [facility] Work Phone: Comment on above: Expected: 01/14/2025, Expires: Start: 01-14-2025 End: 07-17-2025 Comprehensive metabolic 2000 panel - Serum or Plasma Comprehensive metabolic panel Lab Routine Malignant neoplasm of central portion of right breast in female, estrogen receptor negative (Multi) Expected: 01/14/2025 (Approximate), Expires: 07/17/2025 [facility] Work Phone: Comment on above: Expected: 01/14/2025 (Approximate), Expi res: 07/17/2025 Start: 01-14-2025 End: 07-17-2025 Ferritin [Mass/volume] in Serum or Plasma Ferritin Lab Routine Iron deficiency Expected: 01/14/2025 (Approximate), Expires: 07/17/2025 [facility] Work Phone: Comment on above: Expected: 01/14/2025 (Approximate), Expi res: 07/17/2025 Start: 01-14-2025 End: 07-17-2025 Iron and Iron binding capacity panel - Serum or Plasma Iron and TIBC Lab Routine Iron deficiency Expected: 01/14/2025, Expires: 07/17/2025 [facility] Work Phone: Comment on above: Expected: 01/14/2025, Expires: 5 Start: 01-14-2025 End: 01-14-2025 Patient encounter procedure [facility] Comment on above: 4 month follow up visit Start: 12-23-2024 Screening for malignant neoplasm of breast Mammogram Screening [facility] Start: 2024 RSV Vaccine (1 - 1-dose 75+ series) RSV Vaccine (1 - 1-dose 75+ series) [facility] Start: 10-21-2024 End: 10-21-2025 CTA Abdominal Aorta and Bilateral Runoff Vessels W contrast IV CT angiogram abdominal aorta with runoff Imaging Routine Arterial embolism (CMS-HCC) Expected: 10/21/2024, Expires: 10/21/2025 [employer] Work Phone: Comment on above: Expected: 10/21/2024, Expires: Start: 09-21-2024 End: 09-21-2024 Patient encounter procedure 09/21/2024 10:30 AM EST Office Visit CP [facility] [address] [place] [address] Christi Jones APRN.[employer] [address] [place] [address] constipation pain lower back [facility] Comment on above: constipation pain lower back Start: 07-28-2024 Advance Directive Discussion Advance Directive Discussion [facility] Start: 06-10-2024 Administration of varicella zoster vaccine Zoster (Shingles) Vaccine (3 of 3) Point Start: 06-10-2024 Shingrix Vaccine (3 of 3) Shingrix Vaccine (3 of 3) [facility] Start: 03-28-2024 Covid-19 Vaccine ( season) Covid-19 Vaccine () [facility] Start: 03-28-2024 Influenza vaccination Influenza Vaccine (#1) [facility] Start: 11-26-2023 Zoster Vaccines (3 of 3) Zoster Vaccines (3 of 3) [facility] Start: 05-16-2023 Screening for malignant neoplasm of colon [facility] Start: 03-28-2023 COVID-19 Vaccine ( season) COVID-19 Vaccine ( season) [facility] Start: 03-28-2023 Influenza vaccination INFLUENZA (#1) [facility] Start: 03-20-2023 Urine microalbumin profile DTaP,Tdap,Td Vaccine (2 - Td or Tdap) [facility] Start: 01-07-2023 FUV, Provider: Sandra Taylor, Status: Pen, Time: 9:45 AM FUV, Provider: Sandra Taylor, Status: Pen, Time: 9:45 AM [facility]: Start: 10-29-2022 EPV, Provider: Jing Campbell, Status: Pen, Time: 10:40 AM EPV, Provider: Jing Campbell, Status: Pen, Time: 10:40 AM [id number] Work Phone: Start: 07-28-2022 ADVANCE DIRECTIVE DISCUSSION ADVANCE DIRECTIVE DISCUSSION [facility] Start: 07-28-2022 DEPRESSION ASSESSMENT DEPRESSION ASSESSMENT [facility] Start: 04-29-2022 MCRINITIAL, Provider: Jing Campbell, Status: Pen, Time: 10:40 AM MCRINITIAL, Provider: Jing Campbell, Status: Pen, Time: 10:40 AM [id number] [id number] Work Phone: Start: 01-07-2022 FUV, Provider: Efra Barnett, Status: Pen, Time: 9:15 AM FUV, Provider: Efra Barnett, Status: Pen, Time: 9:15 AM [facility] Work Phone: Start: 12-05-2021 NPV, Provider: Efra Barnett, Status: Pen, Time: 9:30 AM NPV, Provider: Efra Barnett, Status: Pen, Time: 9:30 AM [id number] [id number] Work Phone: Start: 07-16-2021 COVID-19 VACCINE (4 - Moderna series) COVID-19 VACCINE (4 - Moderna series) [facility] Start: 05-08-2021 Patient encounter procedure MCRANNUAL, Provider: Jing Campbell, Status: Pen, Time: 10:20 AM [id number] Work Phone: Start: 04-20-2021 NPV, Provider: Allyn Ba, Status: Pen, Time: 9:30 AM NPV, Provider: Allyn Ba, Status: Pen, Time: 9:30 AM [facility] Work Phone: Start: 04-04-2021 MCRINITIAL, Provider: Jing Campbell, Status: Pen, Time: 9:20 AM MCRINITIAL, Provider: Jing Campbell, Status: Pen, Time: 9:20 AM [id number] [id number] Work Phone: Start: 03-20-2021 NPV, Provider: Juan Rutherford, Status: Pen, Time: 2:30 PM NPV, Provider: Juan Rutherford, Status: Pen, Time: 2:30 PM [facility] Work Phone: Start: 02-16-2021 NPV, Provider: Allyn Ba, Status: Pen, Time: 8:00 AM NPV, Provider: Allyn Ba, Status: Pen, Time: 8:00 AM [id number] Work Phone: Start: 2014 BONE DENSITY BONE DENSITY [facility] Start: 2014 Fall Risk Screening Fall Risk Screening [facility] Start: 2014 PNEUMOCOCCAL: 65+ (1 - PCV) PNEUMOCOCCAL: 65+ (1 - PCV) [facility] Start: 2014 Screening for osteoporosis Bone Density Screening [facility] Start: 08-16-2014 Shingrix Vaccine (2 of 3) Shingrix Vaccine (2 of 3) [facility] Start: 11-08-1999 SHINGRIX VACCINE (1 of 2) SHINGRIX VACCINE (1 of 2) [facility] Start: 1994 COLOGUARD (FIT-DNA) COLOGUARD (FIT-DNA) [facility] Start: 1994 Colonoscopy COLONOSCOPY [facility] Start: 1994 COLORECTAL CANCER SCREENING COLORECTAL CANCER SCREENING [facility] Start: [address] COLONOGRAPHY [facility] Start: 1994 DIABETES SCREEN DIABETES SCREEN [facility] Start: 1994 FECAL OCCULT BLOOD FECAL OCCULT BLOOD [facility] Start: 1994 LIPID SCREEN LIPID SCREEN [facility] Start: 1994 Screening for malignant neoplasm of colon [facility] Start: 1994 SIGMOIDOSCOPY SIGMOIDOSCOPY [facility] Start: 1989 Mammography MAMMOGRAM [facility] Start: 11-08-1971 DTaP/Tdap/Td Vaccines (1 - Tdap) DTaP/Tdap/Td Vaccines (1 - Tdap) [facility] Start: 1968 DTaP,Tdap and Td Vaccines (1 - Tdap) DTaP,Tdap and Td Vaccines (1 - Tdap) [facility] Start: 1968 Urine microalbumin profile DTAP,TDAP,TD (1 - Tdap) [facility] Start: 11-08-1967 Adult BMI Follow Up Plan Adult BMI Follow Up Plan [facility] Start: 11-08-1967 Anxiety Screening Anxiety Screening [facility] Start: 11-08-1967 Depression Screening Depression Screening [facility] Start: 11-08-1967 HEPATITIS C SCREENING HEPATITIS C SCREENING [facility] Start: 11-08-1967 Hepatitis C screening Hepatitis C Screening [facility] Start: 1961 Depression Screening Depression Screening [facility] Start: 1949 Medicare Annual Wellness Visit Medicare Annual Wellness Visit (AWV) [facility] Start: 1949 Screening for malignant neoplasm of colon [facility] Start: 1949 Screening for osteoporosis Bone Density Scan [facility] End: 10-21-2025 Creatinine includes GFR, serum Creatinine includes GFR, serum Lab Routine PAD (peripheral artery disease) (CMS-HCC) Ischemia of both feet (CMS-HCC) Arterial embolism (CMS-HCC) 1 Occurrences starting 10/21/2024 until 10/21/2025 [facility] on above: 1 Occurrences starting 10/21/2024 until 10/21/2025 Immunizations Immunization Date Immunization Notes Care Provider Keila schneider 04-15-2024 zoster vaccine, unspecified formulation Lexx Diop MD [facility] 10-01-2022 influenza virus vaccine, unspecified formulation [facility] Work Phone: [facility] 04-12-2022 Fluzone High-Dose Quadrivalent 0.7 ML Intramuscular Suspension Prefilled Syringe; Translations: [Fluzone High-Dose Quadrivalent 0.7 ML Intramuscular Suspension Prefilled Syringe] Jing Campbell Work Phone: [id number] Work Phone: Comment on above: Series: 05-21-2021 Moderna COVID-19 Vaccine 100 MCG/0.5ML Intramuscular Suspension Jing Campbell Work Phone: [facility] Comment on above: Series: 04-04-2021 influenza, high dose seasonal, preservative-free; Translations: [Fluzone High-Dose 0.5 ML Intramuscular Suspension Prefilled Syringe] Jing Campbell Work Phone: [id number] Work Phone: Comment on above: Series: 10-27-2020 Moderna COVID-19 Vaccine 100 MCG/0.5ML Intramuscular Suspension Jing Campbell Work Phone: [id number] [id number] Work Phone: Comment on above: Series: 09-22-2020 Moderna COVID-19 Vaccine 100 MCG/0.5ML Intramuscular Suspension Jing Campbell Work Phone: [facility] 03-20-2020 influenza, injectable, quadrivalent, preservative free Jing Campbell Work Phone: [id number] [id number] Work Phone: 05-19-2019 influenza, high dose seasonal, preservative-free; Translations: [Fluzone High-Dose 0.5 ML Intramuscular Suspension Prefilled Syringe] Jing Campbell [id number] Work Phone: Comment on above: Series: 05-10-2019 pneumococcal polysaccharide vaccine, 23 valent; Translations: [Pneumococcal polysaccharide vaccine, 23 valent] Jing Campbell [facility] Comment on above: Series: 03-12-2018 influenza, high dose seasonal, preservative-free Jing Campbell Work Phone: [id number] Work Phone: 05-08-2016 pneumococcal conjugate vaccine, 13 valent Jing Campbell Work Phone: VP-[id number]-Czzz [id number] Work Phone: Comment on above: Series: 06-21-2014 pneumococcal polysaccharide vaccine, 23 valent Jing Campbell Work Phone: [facility] 06-21-2014 zoster vaccine, live Hayley Campbell Work Phone: [facility] Payers Date Payer Category Payer Self-pay 2021 Commercial Indemnity [facility] [id number] 2021 Private Health Insurance [id number] 2021 Unknown 2014 Medicare [id number]. [id number] 1992 Medicare [id number] 1959 Medicare [id number] 1959 Unknown [id number] 1949 Unknown [id number] 2.16.840.1.813034.3.579.2. 355 1949 Unknown [id number] 2.16.840.1.593816.3.579.2. 355 1949 Unknown [id number] 2.16.840.1.477002.3.579.2. 593 1949 Unknown [id number] 2.16.840.1.336055.3.579.2. 593 1949 Unknown [id number] 2.16.840.1.210611.3.579.2. 593 1949 Unknown [id number] 2.16.840.1.510742.3.579.2. 593 1949 Unknown [id number] 2.16.840.1.628198.3.579.2. 593 1949 Unknown [id number] 2.16.840.1.874764.3.579.2. 593 1949 Unknown [id number] 2.16.840.1.866377.3.579.2. 1069 1949 Unknown [id number] 2.16.840.1.309245.3.579.2. 356 1949 Unknown [id number] 2.16.840.1.833799.3.579.2. 356 1949 Unknown [id number] 2.16.840.1.085265.3.579.2. 356 1949 Unknown [id number] 2.16.840.1.908094.3.579.2. 356 1949 Unknown [id number] 2.16.840.1.776027.3.579.2. 356 1949 Unknown [id number] 2.16.840.1.593114.3.579.2. 356 1949 Unknown [id number] 2.16.840.1.475056.3.579.2. 356 1949 Unknown [id number] 2.16.840.1.680761.3.579.2. 1259 1949 Unknown [id number] 2..840.1.600420.3.579.2. 1245 1949 Unknown [id number] 2.840.1.693489.3.579.2. 1243 1949 Unknown [id number] 2.840.1.334350.3.579.2. 727 1949 Unknown [id number] 2.840.1.810848.3.579.2. 727 1949 Unknown [id number] 2.840.1.388944.3.579.2. 727 1949 Unknown [id number] 2.840.1.112734.3.579.2. 727 1949 Unknown [id number] 2.840.1.885947.3.579.2. 727 Unknown [id number] Unknown [id number] 2.840.1.088244.3.579.2. 531 Unknown [id number] 2.840.1.259263.3.579.2. 462 Unknown [id number] 2.840.1.391892.3.579.2. 462 Unknown [id number] 2.840.1.558483.3.579.2. 462 Unknown [id number] 2.16.840.1.053660.3.579.2. 462 Unknown [id number] 2.840.1.664392.3.579.2. 462 Unknown [id number] 2.16.840.1.062411.3.579.2. 462 Unknown [id number] 2.16.840.1.899751.3.579.2. 462 Unknown [id number] 2.16.840.1.444440.3.579.2. 462 Unknown [id number] 2.16.840.1.371374.3.579.2. 462 Unknown [id number] 2.16.840.1.258548.3.579.2. 462 Unknown [id number] 2.16.840.1.197066.3.579.2. 462 Social History Date Type Detail Facility Start: 03-11-2022 End: 10-21-2024 Former smoker Former smoker [id number] [id number] Work Phone: Start: 05-30-2014 End: 10-21-2024 Tobacco smoking status TNIS Ex-smoker [facility] History of tobacco use Current smoker [facility] Start: 03-11-2022 End: 09-21-2024 Alcohol intake Current drinker of alcohol (finding) [facility] Start: 03-11-2022 End: 10-21-2024 Tobacco use panel [facility] National Score (1-100), lower number is lower risk 91 [facility] Start: 05-30-2014 Tobacco Comment quit 7 years ago [facility] Start: 05-30-2014 Alcohol Comment social [facility] Start: 1950 Sex Assigned At Not on file [facility] Start: 1950 Sex Assigned At Female [facility] Start: 01-16-2024 Tobacco smoking status TNIS Tobacco smoking consumption unknown [facility] Start: 01-06-2024 End: 01-16-2024 Exposure to SARS-CoV-2 (event) Not sure [facility] History of tobacco use Cigarette Smoker [facility] Start: 10-21-2024 Tobacco use and exposure Smokeless tobacco non-user [facility] Start: 10-21-2024 Tobacco Comment Patient smoked 1PPD [id number] [facility] Start: 09-30-2024 Sex Female (finding) [facility] NEGATED: Highlighted row - - [id number] [id number] Work Phone: Medical Equipment Procedure Code Equipment Code Equipment Origin al Text Equipment Identifier Dates Lens Iol +15.50 Acrsf 13mm 6mm - [id number] Start: 04-11-2015 Lens Iol +14 Salvador p 0 D Bcnvx 13 - [id number] Start: 04-25-2015 Functional Status Date Assessment Result Facility 10-06-2023 Functional Status N/A [facility] 08-25-2023 Functional Status N/A [facility] 12-09-2014 Are you deaf, or do you have serious difficulty hearing No 12/09/2014 11:05 AM Xiomy Daly LPN [facility] 12-09-2014 Are you blind, or do you have serious difficulty seeing, even when wearing glasses No 12/09/2014 11:05 AM Xiomy Daly LPN [facility] 12-09-2014 Do you have serious difficulty walking or climbing stairs No 12/09/2014 11:05 AM Xiomy Daly LPN [facility] 12-09-2014 Do you have difficul ty dressing or bathing No 12/09/2014 11:05 AM Xiomy Daly LPN [facility] 12-09-2014 Because of a physica l, mental, or emotional condition, do you have difficulty doing errands alone such as visiting a physician's office or shopping No 12/09/2014 11:05 AM Xiomy Daly LPN [facility] NEGATED: Highlighted row Functional performance Functional status health issues are not documented Disease [id number] [id number] Work Phone: Mental Status Date Assessment Result Facility 12-09-2014 Because of a physical, mental, or emotional condition, do you have serious difficulty concentrating, remembering, or making decisions No 12/09/2014 11:05 AM Xiomy Daly LPN [facility] NEGATED: Highlighted row Cognitive function [Interpretation] Cognitive status health issues are not documented Disease [id number] [id number] Work Phone: Clinical Notes 12-28-2020 to 10-21-2024 Assessment & Plan Note - Lexx Diop MD - 10/21/2024 9:49 AM EDTAssessment & Plan Note - Lexx Diop MD - 10/21/2024 9:49 AM EDTMwing Diop MD - 10/21/2024 9:10 AM EDT Note Date & Type Note Facility 10-21-2024 Evaluation + Plan note Associated Problem(s): Ischemia of both feet (CMS-HCC) 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 She has strong palpable popliteal pulses. She has strong family history of abdominal arctic aneurysm. The plan is to start aspirin Plavix and Statin. We will alsoget a CTA abdomen pelvis with runoff. 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 She has strong palpable popliteal pulses. She has strong family history of abdominal arctic aneurysm. The plan is to start aspirin Plavix and Statin. We will alsoget a CTA abdomen pelvis with runoff. documented in this encounter [facility] 10-21-2024 History of Presen t illness Narrative Images from the original note were not included. To: No primary care provider on file. HPI: Brigitte High is a 73 y.o. female with Ex-smoker with atherosclerotic disease strong palpable popliteal pulses and normal ALDO with very severe toe pressures. She has discoloration of her fifth toe bilaterally. She has what looks like atheroembolic disease or thromboembolic disease. She will get a CTA with runoff I will add her aspirin Plavix and statin to her medications.. Review of Systems: Review of Systems Constitutional: Negative. HENT: Negative. Respiratory: Negative. Cardiovascular: Negative. Gastrointestinal: Negative. Endocrine: Negative. Genitourinary: Negative. Musculoskeletal: Negative. Skin: Negative. Neurological: Negative. Hematological: Negative. Medications: Current Outpatient Medications on File Prior to Visit Medication Sig Dispense Refill ibuprofen (MOTRIN) 600 mg tablet Take 1 tablet (600 mg total) by mouth every 8 (eight) hours as needed. ntccrzzk-nxr-neatx acid-lutein 0.4-250 mg-mcg tablet Take 1 tablet by mouth in the morning. TURMERIC ORAL Take 1 tablet by mouth in the morning. calcium carbonate (OS-JAMESON) 600 mg elemental (1,500 mg) tablet Take 1 tablet (600 mg total) by mouth in the morning and 1 tablet (600 mg total) in the evening. Take with meals. gwkhxk-pnjznuao-ksvpsedhcf dis (NEURIVA DE-STRESS) 100-200-10 mg capsule Take 1 tablet by mouth in the morning. No current facility-administered medications on file prior to visit. Past Medical History: Past Medical History: Diagnosis Date Cancer ([facility]) History of arterial disease of lower extremity Venous insufficiency Past Surgical History: Past Surgical History: Procedure Laterality Date BREAST RECONSTRUCTION Bilateral FOOT SURGERY Bilateral HYSTERECTOMY VEIN SURGERY Social and Family History: Social History Socioeconomic History Marital status: Unknown Spouse name: Not on file Number of children: Not on file Years of education: Not on file Highest education level: Not on file Occupational History Not on file Tobacco Use Smoking status: Former Types: Cigarettes Smokeless tobacco: Never Tobacco comments: Patient smoked 1PPD [id number] Substance and Sexual Activity Alcohol use: Not on file Drug use: Not on file Sexual activity: Not on file Other Topics Concern Not on file Social History Narrative Not on file Social Drivers of Health Financial Resource Strain: Not on file Food Insecurity: No Food Insecurity (10/21/2024) Hunger Screening Food Insecurity - Worry: Never True Food Insecurity - Inability: Never True Transportation Needs: Not on file Physical Activity: Not on file Stress: Not on file Social Connections: Not on file Interpersonal Safety: Not on file Housing Instability: Not on file History reviewed. No pertinent family history. Recent Labs: Recent and relative labs were reviewed and interpreted and contributed to the assessment and plan below. Vitals: BP 122/76 (BP Site: Right Arm, BP Postition: Sitting, BP CUFF SIZE: M (9-13 inches)) Pulse 86 Temp 36.2 C (97.2 F) (Temporal) Ht 165.1 cm (5' 5 ) Wt 73.5 kg (162 lb) SpO2 97% BMI 26.96 kg/m Body mass index is 26.96 kg/m . Physical Exam: Physical Exam Constitutional: Appearance: Normal appearance. HENT: Head: Normocephalic and atraumatic. Mouth/Throat: Mouth: Mucous membranes are moist. Eyes: Extraocular Movements: Extraocular movements intact. Pupils: Pupils are equal, round, and reactive to light. Cardiovascular: Rate and Rhythm: Normal rate and regular rhythm. Pulmonary: Effort: Pulmonary effort is normal. Breath sounds: Normal breath sounds. Abdominal: General: Abdomen is flat. Bowel sounds are normal. Palpations: Abdomen is soft. Musculoskeletal: General: Normal range of motion. Cervical back: Normal range of motion. Skin: General: Skin is warm and dry. Neurological: General: No focal deficit present. Mental Status: She is alert and oriented to person, place, and time. Mental status is at baseline. Psychiatric: Mood and Affect: Mood normal. Behavior: Behavior normal. Thought Content: Thought content normal. Judgment: Judgment normal. 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 She has strong palpable popliteal pulses. She has strong family history of abdominal arctic aneurysm. The plan is to start aspirin Plavix and Statin. We will alsoget a CTA abdomen pelvis with runoff. Brigitte was seen today for pad (peripheral artery disease) ([facility]) i73.9] please sc. Diagnoses and all orders for this visit: Ischemia of both feet ([facility]) PAD (peripheral artery disease) ([facility]) - [facility] [place], [place] Arterial embolism ([facility]) Lexx Diop MD, LARA, RPVI, FSVS, FACS [facility] This note was created with the assistance of a speech recognition program. While intending to generate a timely document that accurately reflects the content of the visit, no guarantee can be provided that every grammatical or spelling mistake has been or will be identified or corrected. Thank you for your understanding. documented in this encounter [facility] 10-18-2024 Note Patient Education Urology Cystoscopy Cystoscopy is a procedure that is used to help diagnose and sometimes treat conditions that affect the lower urinary tract. The lower urinary tract includes the bladder and the urethra. The urethra is the tube that drains urine from the bladder. Cystoscopy is done using a thin, tube-shaped instrument with a light and camera at the end (cystoscope). The cystoscope may be hard or flexible, depending on the goal of the procedure. The cystoscope is inserted through the urethra, into the bladder. Cystoscopy may be recommended if you have: ??? Urinary tract infections that keep coming back. ??? Blood in the urine (hematuria). ??? An inability to control when you urinate (urinary incontinence) or an overactive bladder. ??? Unusual cells found in a urine sample. ??? A blockage in the urethra, such as a urinary stone. ??? Painful urination. ??? An abnormality in the bladder found during an intravenous pyelogram (IVP) or CT scan. Cystoscopy may also be done to remove a sample of tissue to be examined under a microscope (biopsy). Tell a health care provider about: ??? Any allergies you have. ??? All medicines you are taking, including vitamins, herbs, eye drops, creams, and dpnu-ivs-eijenuk medicines. ??? Any problems you or family members have had with anesthetic medicines. ??? Any blood disorders you have. ??? Any surgeries you have had. ??? Any medical conditions you have. ??? Whether you are or may be . What are the risks? Generally, this is a safe procedure. However, problems may occur, including: ??? Infection. ??? Bleeding. ??? Allergic reactions to medicines. ??? Damage to other structures or organs. What happens before the procedure? Medicines Ask your health care provider about: ??? Changing or stopping your regular medicines. This is especially important if you are taking diabetes medicines or blood thinners. ??? Taking medicines such as aspirin and ibuprofen. These medicines can thin your blood. Do not take these medicines unless your health care provider tells you to take them. ??? Taking qlrt-kgr-jnydcmn medicines, vitamins, herbs, and supplements. Tests You may have an exam or testing, such as: ??? X-rays of the bladder, urethra, or kidneys. ??? CT scan of the abdomen or pelvis. ??? Urine tests to check for signs of infection. General instructions ??? Follow instructions from your health care provider about eating or drinking restrictions. ??? Ask your health care provider what steps will be taken to help prevent infection. These steps may include: ? Washing skin with a germ-killing soap. ? Taking antibiotic medicine. ??? Plan to have a responsible adult take you home from the hospital or clinic. What happens during the procedure? You will be given one or more of the following: ? A medicine to help you relax (sedative). ? A medicine to numb the area (local anesthetic). ??? The area around the opening of your urethra will be cleaned. ??? The cystoscope will be passed through your urethra into your bladder. ??? Germ-free (sterile) fluid will flow through the cystoscope to fill your bladder. The fluid will stretch your bladder so that your health care provider can clearly examine your bladder fong. ??? Your doctor will look at the urethra and bladder. Your doctor may take a biopsy or remove stones. ??? The cystoscope will be removed, and your bladder will be emptied. The procedure may vary among health care providers and hospitals. What can I expect after the procedure? After the procedure, it is common to have: ??? Some soreness or pain in your abdomen and urethra. ??? Urinary symptoms. These include: ? Mild pain or burning when you urinate. Pain should stop within a few minutes after you urinate. This may last for up to 1 week. ? A small amount of blood in your urine for several days. ? Feeling like you need to urinate but producing only a small amount of urine. Follow these instructions at home: Medicines ??? Take ozpc-mza-mrjxorp and prescription medicines only as told by your health care provider. ??? If you were prescribed an antibiotic medicine, take it as told by your health care provider. Do not stop taking the antibiotic even if you start to feel better. General instructions ??? Return to your normal activities as told by your health care provider. Ask your health care provider what activities are safe for you. ??? If you were given a sedative during the procedure, it can affect you for several hours. Do not drive or operate machinery until your health care provider says that it is safe. ??? Watch for any blood in your urine. If the amount of blood in your urine increases, call your health care provider. ??? Follow instructions from your health care provider about eating or drinking restrictions. ??? If a tissue sample was removed for testing (biopsy) during your (more content not included)... [facility] 09-21-2024 Telephone encounter Note I sent amitiza to [facility]. It's about $40 per month with [employer] if insurance won't cover it. [facility] 09-21-2024 Miscellaneous Notes I sent amitiza to [facility]. It's about $40 per month with [employer] if insurance won't cover it. documented in this encounter [facility] 09-21-2024 Instructions Christi Jones APRN.CNP - 09/21/2024 11:19 AM EST Trulance has been sent to your pharmacy. If you start trulance and don't have a BM in first 48 hours, please get a bottle Magnesium citrate (over the counter) to flush the colon, then resume daily trulance. If it's not covered, please contact our office and we will try an alternative medication (Amitiza). If you do not respond to either potential medication above, we should pursue testing of your pelvic floor- please call or Fabulyzer message with an update in 1 month. We will see you in the office in 4 months. documented in this encounter [facility] 09-21-2024 History of Presen t illness Narrative Images from the original note were not included. [facility] DATE: 09/21/2024 PATIENT NAME: Brigitte High : 1950 CHIEF COMPLAINT Patient presents with: Consult Constipation: Constipation, pain lower back HPI Ms. High is a 73 year old female with PMHx breast CA (1998), FRANC, OP, PUD who presents for worsening constipation. Constipation for many years. Uses senna daily. Prev tried miralax (no response) and linzess (erratic, watery stools and high cost). Senna no longer effective. Can go 4-5 days between BMs. Bloating, cramping, low back pain. Stools can be hard, straining, very painful. Rare BRB on toilet tissue, none in stools. Urge to defecate between but unable to pass stool. No N/V, GIB, appetite/wt changes. Hysterectomy decades ago. Urethral growth monitored for years, got larger and underwent resection Spring 2023 (Dr Recinos [place]). Was told it is regrowing already, has follow up coming up. Colonoscopy 04/2022 with med lipoma in asc colon, tics, 2 polyps removed, melanosis, IH. Repeat 5 yrs. PMH PAST MEDICAL HISTORY Diagnosis Date Herniated disc L3-4 Hx of breast cancer 1998 FRANC (obstructive sleep apnea) resolved s/p T&A and uvulectomy PSH PAST SURGICAL HISTORY Procedure Laterality Date HERNIA REPAIR HX ICAPSULAR CATARACT XTRJ INSJ IO LENS PRSTH 1 STG Right 04/12/2015 Dr. Marino NECK SURGERY HX PAST SURGICAL HISTORY OF carpel tunnel PAST SURGICAL HISTORY OF mastectomy with reconstruction of Left, s/p chemo PAST SURGICAL HISTORY OF ACDF PAST SURGICAL HISTORY OF 2015 T&A and uvulectomy for FRANC XCAPSL CTRC RMVL INSJ IO LENS PROSTH W/O ECP Left 04/25/2015 [facility] ALLERGIES Allergen Reactions Tylenol [Acetaminop* Other: See Comments Makes my ears ring CURRENT MEDS PRIOR TO VISIT Current Outpatient Medications Medication Sig Dispense Refill TURMERIC ORAL Take by mouth. BIOTIN ORAL Take by mouth. calcium carbonate 600 mg-cholecalciferol 200 units (CALCIUM 600 + D,3,) 600 mg(1,500mg) -200 unit tab Take 1 tablet by mouth once daily. multivitamin (DAILY MULTIPLE) tablet Take 1 tablet by mouth once daily. 0 ibuprofen (MOTRIN) 600 mg tablet Take 600 mg by mouth. No current facility-administered medications for this visit. FH Family History Problem Relation Age of Onset Cataract Father Macular Degen Father Cataract Mother SH Social History Tobacco Use Smoking status: Former Tobacco comments: quit 7 years ago Vaping Use Vaping status: Never Used Substance Use Topics Alcohol use: Yes Comment: social Drug use: No REVIEW OF SYSTEMS A complete and comprehensive 12 system ROS was ow negative. OBJECTIVE VITALS: BP 135/86 Pulse 67 Ht 5' 5 (1.65m) Wt 164 lb 6.4 oz (74.6kg) BMI 27.36 kg/(m^2). PHYSICAL EXAMINATION GEN: Appears well nourished. No signs of acute distress present. Speech is normal. Alert and oriented X 3. No involuntary movement. Patient is cooperative. HEAD/FACE: Normocephalic on inspection. EYES: PERRLA. Sclerae clear and anicteric. NECK: Neck is supple RESP: Respiration rate is normal. CV: Rate is regular. Rhythm is regular. ABDOMEN: Abdomen is soft, nontender, and nondistended without guarding, rigidity or rebound tenderness. No abdominal masses palpable. No palpable hepatosplenomegaly. PERINEUM/ANUS/RECTUM: Exam deferred at this time. SKIN: Skin is warm and dry with no jaundice, lesions or rashes. NEURO: No focal deficits appreciated. LABS Reviewed; no recent pertinent labs ASSESSMENT/PLAN Ms. High is a 73 year old female with PMHx breast CA (1998), FRANC, OP, PUD who presents for worsening constipation despite senna, associated lower back pain, pain with defecation. Prev tried miralax (no response) and linzess (erratic, watery stools and high cost). Suspect she may have motility and pelvic floor component. Colonoscopy 04/2022 with med lipoma in asc colon, tics, 2 polyps removed, melanosis, IH. Repeat 5 yrs. # Constipation - Stop senna. Start trulance daily. Mg citrate if no response in 48 hours. If it's not covered, try amitiza. - ARM if constipation doesn't approve with meds above - Obtain records from [facility] (surgery 2023 for urethral growth ) RTC 4 months Christi Jones APRN.CNP [facility] [address] [place] [address] Office: [phone] documented in this encounter [facility] 09-13-2024 Telephone encounter Note Images from the original note were not included. [facility] 09-13-2024 Miscellaneous Notes Images from the original note were not included. documented in this encounter [facility] 03-04-2024 Note [facility] Medical Records Department [address] [place] [address] History Physical Exam 03/04/24714 MR#: [id number] Acct: [id number] Name: BRIGITTE HIGH Rep #: [id number] : 1950 73 From: Jadyn Chavez MD PCP: MITCHEL BrownC Status:REG [facility] Location: [place] [address] History and Physical Date of Admission: 03/04/24 The patient is examined and there are no changes from the H P dated 02/12/2024. The patient presents for right breast lift for symmetry and revision left breast reconstruction. Informed consent is obtained and patient is marked in the preop holding area. Assessment Plan Assessment/Plan (1) Breast asymmetry between [place] breast and reconstructed breast: PLAN: Patient for right breast lift for symmetry (2) Painful periwound skin: PLAN: Patient for revision left breast reconstruction (3) Ptosis of right breast: (4) Status post left breast reconstruction: (5) History of breast cancer in adulthood: 03/04/24 0718 Cosigner Signature (if applicable): CC: MACHINE CUTTERAriadne Dougherty; Dr. Jadyn Chavez MD Signed [facility] 01-16-2024 History of Presen t illness Narrative Patient ID: Brigitte High is [...] followed by reconstruction -It was ER neg, DE neg, and [id number] neg -She had received post-op chemotherapy but is unable to recall the names of these agents -She did not need radiation therapy -The implant did rupture at one point, and she needed this to be replaced - here for interval followup-moved to [place] -last mammo was done in 12/24/2023 in [place]--breasts are heterogeneously dense which may obscure small [...] for next year -she went on a [employer] sponsored bus tour of [place]--she said she had to share a room [...] fractured patella -while visiting a friend in [place] in January 2023--she saw her friend returning home, and ran through the house intending to open the front gate--she tripped on a landing and fractured her left kneecap--neither her friend nor her friend's wanted to take her to the ED so when she returned to [place] she went to the ER and had xrays done confirming fractured left patella--she worse a knee stabilizer/brace Problem List Items Addressed This Visit None Visit Diagnoses Codes Malignant neoplasm of central portion of right breast in female, estrogen receptor negative (Multi) - Primary C50.111, Z17.1 Relevant Orders Clinic Appointment Request Follow Up; CARLITO HORVATH; [facility] CBC and Auto Differential Comprehensive metabolic panel Cancer Antigen 27-29 Iron deficiency E61.1 Relevant Orders Iron and TIBC Ferritin Carlito Horvath MD documented in this encounter [facility] Work Phone: 01-16-2024 Instructions Carlito Horvath MD - 01/16/2024 10:40 AM EDT See you again in 1 year documented in this encounter [facility] Work Phone: 11-04-2023 Evaluation + Plan note Diagnostic Tests PendingUrine Culture 11/04/[address] [facility] 10-06-2023 Hospital Discharg e instructions Patient Education 10/06/2023 17:14:42 Kegel Exercises [...] provider. Document Revised: 11/22/2021 Document Reviewed: 11/22/2021 [employer] Patient Education 2022 [employer]. Follow Up Care 09/09/2023 14:36:29 With:JORJE FIGUEROA, Star Villavicencio, URL Address: [facility] [address], [place] [address]- [phone] When: Unknown Comments:toro call pt to review updated path [facility] 08-25-2023 Hospital Discharg e instructions Patient Education 08/25/2023 13:11:13 Urinary Tract Infection, Adult, Ojhq-ml-Yoae Urinary Tract Infection, Adult A urinary tract [...] Follow these instructions at home: Medicines Take [id number]-swbgvac and prescription medicines only as told by [...] provider. Document Revised: 02/23/2021 Document Reviewed: 02/23/2021 [employer] Patient Education 2022 [employer]. Follow Up Care 05/27/2023 09:36:14 With:JORJE FIGUEROA, Star Villavicencio, URL Address: [facility] [address], [place] [address] [phone] When: Unknown Comments:sched cysto/UD [facility] 03-28-2023 Note HNO ID: [id number] Author: Lawrence Medina MD Service: ? Author [...] wants to move forward with replacement surgery. aLwrence Medina MD [facility] 03-28-2023 History of Presen t illness Narrative Family History: Significant Family Hx [...] Lawrence Medina MD documented in this encounter [facility] 03-25-2023 Note HNO ID: [id number] Author: Gray Mcdonald RT(R) Service: Radiology Author [...] RT Jennifer(R) March 25, 2023 1:36 PM [facility] 11-28-2022 Note PROCEDURE: XR KNEE L T [...] authenticated by: ILDEFONSO HO Date: 2022-11-28 18:01 [facility] 12-05-2021 History of Presen t illness Narrative The patient is being seen [...] complaints of dyspnea (Reports SOB on exertion) [facility] Work Phone: 10-29-2021 History of Presen t illness Narrative The patient is being seen [...] complaints of dyspnea (Reports SOB on exertion) [id number] Work Phone: 04-20-2021 History of Presen t illness Narrative Ms. High is a 70-year-old [...] in March [address] Simms at [facility] that demonstrated melanosis coli, two 2-3 mm [...] 1 glass of wine daily. No illicits. [facility] Work Phone: 03-31-2021 History of Presen t illness Narrative The patient is being seen [...] experiencing symptoms. No associated symptoms are reported. [facility] [id number] Work Phone: 02-22-2021 History of Presen t illness Narrative BRIGITTE HIGH presents with complaints of joint pain, described as aching On a scale of 1 to 10, the patient rates the pain as 7 (Reports h/o generalized joint pain. Worsening x2 weeks)Associated symptoms include joint stiffness, morning stiffness and fatigue, but no fever and no chills.joint swelling [facility] [id number] Work Phone: 02-20-2021 History of Presen t illness Narrative BRIGITTE HIGH presents with complaints of joint pain, described as aching On a scale of 1 to 10, the patient rates the pain as 7 (Reports h/o generalized joint pain. Worsening x2 weeks)Associated symptoms include joint stiffness, morning stiffness and fatigue, but no fever and no chills.joint swelling [facility] [id number] Work Phone: 02-17-2021 History of Presen t illness Narrative The patient is being seen [...] Hot shower in AM.low back pain into [facility] Work Phone: 12-31-2020 History of Presen t illness Narrative The patient is being seen [...] Hot shower in AM.low back pain into [facility] Work Phone: 12-28-2020 History of Presen t illness Narrative The patient is being seen [...] AM.low back pain into butthaving bad constipation [id number] Work Phone: Evaluation + Plan note No data available for this section [facility] Evaluation note Diagnosis Breast pain- Primary Mastodynia Acquired breast deformity Other specified disorders of breast Capsular contracture of breast implant, initial encounter [facility] Diagnosis Onset Date Resolution Status Bronchitis acute [facility] Work Phone: Evaluation note* Diagnosis [...] left patella, sequela documented in this encounter [facility] Work Phone: Evaluation note* Diagnosis Constipation, unspecified constipation type- Primary History of colon polyps Personal history of colonic polyps [facility] Ischemia of both feet- Primary PAD (peripheral artery disease) Unspecified peripheral vascular disease Arterial embolism ([facility]) Embolism and thrombosis of unspecified artery [facility]* The patient is [...] has living will. Patient has healthcare POA. [id number] Work Phone: History of Present illness NarrativePatient [...] and would like to become sexually active soon.[facility] Work Phone: History of Present illness NarrativePatient here for recheck of topical estrogen Rx use for severe atrophic vulvovaginitis. Patient stated she had a lot of spotting with using the applicator, she started having hot flashes and headaches and had to stop the topical estrogen. She has no further bleeding since stopping the medication. 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 [facility] Work Phone: History of Present illness Narrative* Hand Swelling * C/o swelling to 1st finger and middle finger x1 week. * C/o joint aching. * Hands felt tight while wearing gloves. * Took OTC Diurex and Aspercreme, voiced mild improvement. [id number] Work Phone: History of Present illness Narrative* [...] has living will. Patient has healthcare POA. Pio [id number] Work Phone: History of Present illness Narrative* [...] needed * All questions answered * . [facility] Work Phone: Hospital Discharge instructions No data available for this section [facility] InstructionsNot on filedocumented in this encounter [facility] No data available for this section [facility] Summary Purpose Family History Mother Name Dates Details Family history of [...] hypertensi on: Father(V17.49, Z82.49) Status:Active Advance Directives Advance Directive Response Recorded Date/ Time Advance Directives No December 20 9:44am Documents on File Type Date Recorded 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 Living Will 10/14/2014 Chief Complaint * every [...] gastro appt * had colonoscopy in 2016 triciaba * weight gain * eating healthy Referred [...] in 81 - due to AUB * hosting engineer - DAMION Rodgers * sick since yesterday [...] section and content) DATE CREATED AUTHOR 01/31/2018 [facility] DATE CREATED AUTHOR AUTHOR'S ORGANIZ ATION 09/16/2018 [facility] DATE CREATED AUTHOR AUTHOR'S ORGANIZ ATION 11/26/2021 [facility] DATE CREATED AUTHOR AUTHOR'S ORGANIZ ATION 12/05/2022 [facility] DATE CREATED AUTHOR AUTHOR'S ORGANIZ ATION 01/21/2023 [facility] DATE CREATED AUTHOR AUTHOR'S ORGANIZ ATION 02/12/2023 [facility] DATE CREATED AUTHOR AUTHOR'S ORGANIZ ATION 02/12/2023 [facility] DATE CREATED AUTHOR AUTHOR'S ORGANIZ ATION 10/17/2023 [facility] DATE CREATED AUTHOR AUTHOR'S ORGANIZ ATION 10/21/2023 [facility] DATE CREATED AUTHOR AUTHOR'S ORGANIZ ATION 11/19/2023 [facility] DATE CREATED AUTHOR AUTHOR'S ORGANIZ ATION 01/20/2024 [facility] DATE CREATED AUTHOR AUTHOR'S ORGANIZ ATION 01/21/2024 [facility] DATE CREATED AUTHOR AUTHOR'S ORGANIZ ATION 06/04/2024 [facility] DATE CREATED AUTHOR AUTHOR'S ORGANIZ ATION 10/19/2024 [facility] Source Comments (unrecognize d section and content) In the event this informatio n is protected by the Federal Confidentiality of Alcohol and Drug Abuse Patient Records regulations: The Federal rules restrict any use of the information to criminally investigate or prosecute any alcohol or drug abuse patient.[facility] the event this information is protected by the Federal Confidentiality of Alcohol and Drug Abuse Patient Records regulations: The Federal rules restrict any use of the information to criminally investigate or prosecute any alcohol or drug abuse patient.[facility] Hospital[facility] the event this information is protected by the Federal Confidentiality of Alcohol and Drug Abuse Patient Records regulations: The Federal rules restrict any use of the information to criminally investigate or prosecute any alcohol or drug abuse patient.[facility] Hospital[facility] the event this information is protected by the Federal Confidentiality of Alcohol and Drug Abuse Patient Records regulations: The Federal rules restrict any use of the information to criminally investigate or prosecute any alcohol or drug abuse patient.[facility] Reason for Visit (unrecogniz ed section and content) Reason Comments New Patient Evaluation Patient states ramires s possible implant leak. Reason Comments Follow-up Reason Comments Consult Constipation Constipation, pain l ower back Reason Onset Date Comments Refill Request 09/21/2024 Reason Comments PAD (peripheral artery disease) ([facility] ) I73.9] Please sc Specialty Diagnoses / Procedures Referred By Contnatalya t Referred To Contact Vascular Surgery Diagnoses PAD (peripheral artery disease) Kristyn Dougherty APRN-CNP [address] [place] [address] Phone: tel:[phone] fax: [facility] [address] [place] [address] Phone: tel:[phone] fax: Referral ID Status Reason Start Date Expiration Date Visits Requested Visits Authorized [id number] Pending Review Specialty Services Required 09/30/2024 09/30/2025 1 1 Care Teams (unrecognized sec tion and content) Motorcycle Deliverer Relationship Specialty Start Date End Date Jing Campbell DO [address] [place] [address] PCP - General 03/28/15 Team Status: Active [...] December 21, 2023 End: December 21, 2023 Motorcycle Deliverer Relationship Specialty Start Date End Date Kristyn Dougherty APRN-CNP [address] [place] [address] PCP - General 12/10/22 [place] [address] [address] Consulting Physician Hematology and Oncology 09/16/23 Motorcycle Deliverer Relationship Specialty Start Date End Date Kristyn Dougherty CNP [address] [place] [address] PCP - General Internal Medicine 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 [facility]. provides no warranty or guarantee of the accuracy or completeness of information in this document.
[2024-11-09 10:32] LABS: Basophils Absolute Auto 0.1 10^3/uL (0.0-0.1); Eosinophils Absolute Auto 0.1 10^3/uL (0.0-0.7); Eosinophils Percent Auto 2.7 % (0.9-7.0); Hematocrit 39.7 % (36.0-48.0); Hemoglobin 13.1 g/dL (12.0-16.0); Immature Granulocytes Abs Auto 0.01 10^3/uL (0.00-0.03); Immature Granulocytes Pct Auto 0.2 % (0.0-0.5); Lymphocytes Absolute Auto 1.6 10^3/uL (1.2-3.8); Lymphocytes Percent Auto 33.8 % (20.5-60.0); Mean Corpuscular Hemoglobin 30.5 pg (26.7-34.0); Mean Corpuscular Volume 92.3 fL (81.0-99.0); Mean Platelet Volume 9.5 fL (9.5-13.5); Monocytes Absolute Auto 0.3 10^3/uL (0.3-0.8); Monocytes Percent Auto 6.8 % (1.7-12.0); Neutrophils Absolute Auto 2.7 10^3/uL (1.4-6.5); Neutrophils Percent Auto 55.5 % (43.0-75.0); Platelet Count 279 10^3/uL (150-450); Red Cell Distribution Width 12.9 % (11.0-15.0); White Blood Count 4.9 10^3/uL (4.0-11.0)
[2024-11-09 10:46] LABS: Estimated Average Glucose 111 mg/dL; Glycohemoglobin A1C 5.5 % (4.5-6.2)
[2024-11-09 12:37] LABS: Alanine Aminotransferase 34 U/L (14-59); Albumin Globulin Ratio 0.9; Albumin Level 3.7 g/dL (3.4-5.0); Alkaline Phosphatase 86 U/L (46-116); Anion Gap 14.4; Aspartate Amino Transferase 26 U/L (15-37); BUN Creatinine Ratio 16.4; Bilirubin Total 0.4 mg/dL (0.2-1.0); Calcium 9.4 mg/dL (8.5-10.1); Carbon Dioxide 24.3 mmol/L (21.0-32.0); Chloride 108 mmol/L (98-107); Chol HDL Ratio 1.6; Cholesterol 159 mg/dL (<=200); Estimated GFR (African America >60 (>=60 mL/min/1.73m^2); Estimated GFR (Non-African Ame >60 (>=60 mL/min/1.73m^2); Free T3 2.41 pg/mL (2.18-3.98); Globulin 3.9 g/dL; Glucose 90 mg/dL (74-106); HDL Cholesterol 99 mg/dL (40-60); Potassium 3.7 mmol/L (3.5-5.1); Sodium 143 mmol/L (136-145); Thyroid Stimulating Hormone 1.871 uIU/mL (0.358-3.740); Total Protein 7.6 g/dL (6.4-8.2); Triglycerides 38 mg/dL (<=150); VLDL CHOLESTEROL 7.6 mg/dL
[2024-11-10 04:07] LABS: Insulin 5.3 uIU/mL (2.6-24.9)
== END 2024-11-09 09:39 | disposition home or self-care (01) ==
LOC: LAB 09:55
PROVIDERS: PCP Nurse Practitioner Family; Visit Provider Nurse Practitioner Family
DX: E78.5 Hyperlipidemia, unspecified (principal); R73.09 Other abnormal glucose; D64.9 Anemia, unspecified; E55.9 Vitamin D deficiency, unspecified
CPT/HCPCS: 36415; 80053; 80061; 82306; 83036; 83525; 83540; 84436; 84443; 84481; 85025; 86300

== ENCOUNTER 2024-12-24 06:47 | Outpatient (OUT) | payer MEDICARE, OTHER, SELFPAY ==
--- OUTSIDE RECORDS SUMMARY | 2024-12-24 06:51 | XMS_ITS | CCD ---
Author Organization [facility] Care Team Providers Care Community Health Specialist Name Role Phone Adrian, Jing Unavailable Unavailable [...] CARLITO HORVATH Attending Laura camble DO JING CAMPEBLL Referring Unavail able DO JING CAMPBELL Attending Unavail able DO JING CAMPBELL Primary Care Unavail MD SANDRA Pelletier Referring Unavailable MD SANDRA TAYLOR Attending Unavailable MD SANDRA TAYLOR Referring Unavailable MD SANDRA TAYLOR Attending Unavailable DO JING CAMPBELL Primary Care Unavail able MD SANDRA TAYLOR Referring Unavailable MD SANDRA TAYLOR Attending Unavailable MD SANDRA TAYLOR Attending Unavailable MD SANDRA TAYLOR Referring Unavailable MD CARLITO HORVATH Attending Laura MD CARLITO rCow Admitting Laura vailable ADRIAN, DO JING KEREN Primary Care Unavail able ADRIAN, DO JING KEREN Referring Unavail able ADRIAN, DO JING KEREN Attending Unavail able Adrian DO, Jing Keren Primary Care Provider KRISTYN DOUGHERTY S Primary Care Physician [phone] Lawrence MEDINA Referring Unavailable ADRIAN, JING KEREN Primary Care Unavailabl e Lawrence MEDINA Attending Unavailable ADRIAN, JING KEREN Primary Care Unavailmaricruz e Star Recinos Attending Unavailable Star Recinos Admitting Unavailable MD Star Recinos Attending Provider CARLITO [...] Jadyn Attending Unavailable Ladonna, Kristyn Referring Unavailable Ladonan, Kristyn Primary Care Unavailable Ghazoul, Jadyn Attending Unavailable Ghazoul, Jadyn Referring Unavailable Ladonna, Kristyn Primary Care Unavailable Ghazoul, Jadyn Attending Unavailable Ladonna, Kristyn Referring Unavailable Ladonna SHAREPOINT DEVELOPER-ORDER TRACER, Kristyn S Primary Care Provider Carlito Horvath MD Unavailable Ladonna MORGAN Kristyn S Primary Care Provider Star RECINOS Attending Unavailable Star RECINOS Attending Unavailable Star RECINOS Attending Unavailable Star RECINOS Attending Unavailable Star RECINOS Attending Unavailable RECINOS, Star Villavicencio Attending Unavailable Unavailable Primary Care Provider Kristyn Jerome Primary Care Provider Unavailable Primary Care Provider DANIELITO Zamarripa Attending Unavailable Allergies Allergy Classification Reported Allergen(s) Allergy Type Date of Onset Reaction(s) Facility Acetaminophen (9 sources) Acetaminophen; Translations: [Tylenol] Drug Allergy JG-BSTU-Ddqg 2535A Work Phone: (20 sources) Acetaminophen; Translations: [Tylenol] Drug Allergy Tinnitus (finding) [facility] (20 sources) Codeine; Translations: [Codeine Derivatives] Drug Allergy 3 Unknown, Other (See Comments) QV-MVUE-Esmq 2535A Work Phone: (15 sources) Mold Extract Drug Allergy NM-CBUC-Xhtv 2535A Work Phone: (15 sources) Gordo mold Allergy to substance (finding) QK-FJBR-Thel 2535A Work Phone: (5 sources) Animal dander - Cats Allergy to substance (finding) GP-IAOI-Xiiu 2535A Work Phone: (10 sources) Acetaminophen; Translations: [ACETAMINOPHEN] Drug Allergy 3 Other: See Comments, Unknown, Other (See Comments), Tinnitus [facility] (2 sources) Codeine; Translations: [CODEINE] Drug Allergy 3 [facility] (1 source) Environmental Allergies: Uncoded; Translations: [Environmental Allergies: Uncoded] Propensity to adverse reactions (disorder) 4 [facility] (1 source) cat dander Drug allergy (disorder) 4 [facility] (3 sources) Acetaminophen Drug Allergy 3 Unknown, Tinnitus [facility] Medications Current Medications Medication Drug Class(es) Dates Sig (Normalized) Sig (Original) amoxicillin 875 mg / clavulanate 125 mg oral tablet (2 sources) Penicillin-class Antibacterial Start: 08-25-2023 End: 10-24-2023 take 1 tablet by mouth every twenty-four hours at mealtime Augmentin 875 mg oral tablet = 1 tab(s), Oral, q24hr, Take with probiotics and with food., X 30 day(s), # 30 tab(s), Refills(s) 1, Pharmacy: [facility]/pharmacy #[id number], 165, cm, 08/25/23 12:11:00 EST, [...] Jing Campbell DO Start : 29-Oct-2021 Active B Dxfpbyp-Gvhdnl-VG (GNP B-100 Complex) tablet controlled-release (3 sources) B Complex-Biotin -FA (GNP B-100 Complex) tablet controlled-release Take by mouth Active bimatoprost 0.3 mg/ml topical solution (20 sources) Prostaglandin Analog Start: bimatoprost (Latisse) 0.03 % ophthalmic solution Indications: Encounter [...] Active calcium carbonate 1500 mg oral tablet (2 sources) take 1 tablet by mouth in [...] 07/10/2020 Active clopidogrel 75 mg oral tablet (2 sources) P2Y12 Platelet Inhibitor Start: 10-22-19 25 take 1 tablet by mouth in the morning clopidogreL (PLAVIX) 75 mg tablet Take 1 tablet (75 mg total) by mouth in the morning. 60 tablet 3 10/21/2024 Active asfsgp-xwycggib-uabwegp brenna dis (NEURIVA DE-STRESS) 100-200-10 mg capsule (2 sources) take 1 tablet by mouth in the morning bwgdxl-wscumhke-fzjfea xide dis (NEURIVA DE-STRESS) 100-200-10 mg capsule Take 1 tablet by mouth in the morning. Active doxycycline hyclate 100 mg oral capsule (19 sources) Tetracycline-clas s Drug Start: 10-30-19 doxycycline (Vibramycin) 100 mg capsule Take by mouth. 10/29/2021 Active Start: 10-29-2021 take 1 capsule by mouth once D oxycycline Hyclate 100 MG Oral Capsule Take 1 capsule by mouth daily. (Per Derm) Quantity: 0 Refills: 0 Ordered: 29-Oct-2021 DO Start : 29-Oct-2021 Active Elderberry preparation (3 sources) Start: 10-06-2023 elderberry ora l liquid Refill(s) 0 Start Date: 10/06/23 Status: Ordered 12 hr guaiFENesin 600 mg extended release oral tablet (1 source) Start: 12-21-2023 take 1 tablet by mouth twice daily, then take 1 tablet by mouth every twelve hours Guaifenesin (Mucinex) 600 mg tablet extended release 12hr Active 600 MG PO Twice daily 14 December 21, 2023 12:00am ibuprofen 600 mg oral tablet (12 sources) Nonsteroidal Anti-inflammatory Drug Start: 07-20-2023 ibuprofen 600 MG tablet TAKE 1 TABLET BY MOUTH EVERY 6 TO 8 HOURS NEEDED 07/20/2023 Active Start: 11-20-2022 Ibuprofen 600 MG Oral Tablet Quantity: 100 Refills: 0 Ordered: 20-Nov-2022 DO Start : 20-Nov-2022 Active take 3 tablets by mo ut every six hours as needed ibuprofen 200 MG tablet Take 600 mg by mouth every 6 (six) hours if needed Active lubiprostone 0.024 mg oral capsule (1 source) [...] mirabegron 50 mg extended release oral tablet (6 sources) beta3-Adrenergic Agonist Start: 09-08-2023 take 1 tablet by mouth once daily Myrbetriq 50 MG 24 hr tablet Take 50 mg by mouth Daily 09/08/2023 Active yalilvgw-atb-qfqrf acid-lutein 0.4-250 mg-mcg tablet (2 sources) take 1 tablet by mouth once in the morning eeqhnqpc-exq-vwwb c acid-lutein 0.4-250 mg-mcg tablet Take 1 tablet by mouth in the morning. Active multivitamin (DAILY MULTIPLE) tablet (4 sources) Start: 03-28-2015 take 1 tablet by mouth once daily multivitamin (DAILY MULTIPLE) tablet Take 1 tablet by mouth once daily. 0 03/28/2015 Active Comment on above: Take 1 tablet by sophia th once daily. multivitamin (Theragran) tablet (3 sources) multivitamin (Theragran) tablet Active multivitamin with iron (4 sources) Start: 08-25-2023 multivitamin with iron mL, Refill(s) 0 Start Date: 08/25/23 Status: Ordered omeprazole 40 mg delayed release oral capsule (5 sources) Proton Pump Inhibitor Start: 03-14-2023 take 1 capsule by mouth once daily omeprazole (PriLOSEC) [address] capsule Take 40 mg by mouth Daily 03/14/2023 Active Start: 10-14-2022 Omeprazole 40 MG Oral Capsule Delayed Release Quantity: 30 Refills: 0 Ordered: 14-Oct-2022 DO Start : 14-Oct-2022 Active Phentermine (6 sources) Sympathomimetic Amine Anorectic Start: [...] Active rosuvastatin calcium 5 mg oral tablet (2 sources) HMG-CoA Reductase Inhibitor Start: 10-21-2024 take 1 tablet by mouth in the morning rosuvastatin (CRESTOR) 5 mg tablet Take 1 tablet (5 mg total) by mouth in the morning. 30 tablet 3 10/21/2024 Active sennosides, mcc 8.6 mg oral tablet (20 sources) Start: 04-04-2021 sennosides (Senokot) 8.6 mg tablet 8 tablets (68.8 mg) once daily at bedtime. 04/04/2021 Active turmeric extract 500 mg oral capsule (7 sources) Turmeric (QC Tumeric Complex) 500 MG capsule Take by mouth Active take 1 tablet by mouth in the mo rning TURMERIC ORAL Take 1 tablet by mouth [...] sodium 75 mg delayed release oral tablet (5 sources) Nonsteroidal Anti-inflammatory Drug Start: 07-06-2022 Diclofenac Sodium 75 MG Oral Tablet Delayed Release Quantity: 60 Refills: 0 Ordered: 06-Jul-2022 DO Start : 06-Jul-2022 Active diclofenac (Volt aren) 75 MG EC tablet Take by mouth Active escitalopram 10 mg oral tablet (15 sources) Serotonin Reuptake Inhibitor take 1 tablet by mouth once daily Escitalopram Oxalate 10 MG Oral Tablet TAKE 1 TABLET DAILY. Quantity: 90 Refills: 3 Ordered: 04-Apr-2021 Jing Campbell DO Active estradiol 0.1 mg/ml vaginal cream (6 sources) Estrogen Start: 2021 Estradiol 0.1 MG/GM Vaginal Cream Apply pea-sized amount to vulva twice daily x 2 weeks then 2 daily x 2 weeks then twice a week for maintenance Quantity: 1 Refills: 2 Ordered: 20-Nov-2021 Efra Barnett DO Start : 20-Nov-2021 Active OK to substitute any generic version of topical estrogen Rx covered by insurance linaclotide 0.29 mg oral capsule (3 sources) Guanylate Cyclase-C Agonist Start: 2020 take 1 capsule by mouth once daily Linzess 290 MCG Oral Capsule TAKE 1 CAPSULE Daily Quantity: 90 Refills: 3 Ordered: 20-Apr-2021 Allyn Ba PA-C Start : 20-Apr-2021 Active meloxicam 15 mg oral tablet (7 sources) Nonsteroidal Anti-inflammatory Drug Start: 2020 take 1 tablet by mouth once daily Meloxicam 15 MG Oral Tablet TAKE 1 TABLET BY MOUTH DAILY Quantity: 30 Refills: 3 Ordered: 26-Feb-2021 Jing Campbell DO Start : 26-Feb-2021 Active methylPREDNISolone 4 MG Oral Tablet Therapy Pack (3 sources) Start: 2021 methylPREDNISolone 4 MG Oral Tablet Therapy Pack [...] Ordered: 20-Feb-2021 DO Start : 20-Feb-2021 Active polyethylene glycol 3350 698458 mg / potassium chloride 2970 mg / sodium bicarbonate 6740 mg / sodium chloride 5860 mg / sodium sulfate 86563 mg powder for oral solution (2 sources) Osmotic Laxative Start: 05-01-2022 GaviLyte-G 236 GM Oral Solution Reconstituted Quantity: 4000 Refills: [...] Start: 12-27-2020 take 4 tablets by mo [facility] once daily, then take 3 tablets by [...] medications] Episodic Other aftercare (2 sources) 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) use of non-steroidal anti-inflammatories (NSAID); Translations: [assisted (current) use of non-steroidal anti-inflammatories (NSAID)] Onset: [...] neoplasm screening status; Translations: [Other screening mammogram] 11-23-2024 Episodic Other skin disorders (2 sources) Other [...] Onset: 01-17-2023 Chronic Peripheral and visceral atherosclerosis (8 sources) Peripheral vascular disease, unspecified; Translations: [Peripheral vascular disease, unspecified] Onset: 10-21-2024 10-21-2024 Chronic Residual codes; unclassified (20 sources) Sleep apnea; Translations: [Unspecified sleep apnea] Onset: 09-05-2022 3 Chronic Residual codes; unclassified (19 sources) Symptom [...] Onset: 05-07-2018 Episodic Unclassified (1 source) M54.16 30857 Onset: 10-18-2017 Unclassified (1 source) Patient encounter [...] FIGUEROA, Star Villavicencio Primary Care Physician - KRISTYN DOUGHERTY CNP This Is [...] Star RECINOS MD Where: [facility] [address] You Need to Schedule the Following Appointments Follow Up with Star RECINOS MD, URL When: Where: [facility] [address], [place] [address]- [phone] Medications What How Much When Instructions Unchanged [...] including vitamins, herbs, eye drops, creams, and mlgz-oco-nqvsayl medicines. ??? Any problems you or family [...] Taking medic (more content not included)... Normal [facility] Urology Office/Clinic Noteon 10-18-2024 Urology Office/Clinic Note [...] without stromal invasion. Second opinion path from [facility] did not have any discrepancy between the [...] Star Villavicencio, URL [facility] [address] [place] [address]- [phone] Additional Instructions: 6 mos cysto Patient Education [...] extended r (more content not included)... Normal [facility] Comment on above: Result Comment: Elec tronically Signed By: Star RECINOS MD\.br\Date and Time Signed: 10/18/24 09:11 EDT\.br\Electronically Co-Signed By: Pari Anton\.br\Date and Time Co-Signed: 10/18/24 09:07 EDT Reminderson 09-09-2024 Reminders Reminders From: Daniella Green To: [facility] - Brysons Jorje; Sent: 05/20/2024 16:30:34 EDT Show up: 08/28/2024 16:30:00 EST Subject: cysto, 6 mo Due Date/Time: 09/20/2024 16:30:00 EST Reminder/Recall Patient needs sched for 6 month cysto in October 2024, pt prefers [facility] l/m on cell .LG l/m on cell .LG Patient called back, sched for 11/15/24 at [facility].LG [facility] Plastic Surgery Visit Report on 06-02-2024 Plastic Surgery Visit Report [facility] Plastic Reconstructive Surgery [address], [address] [place] [address] OFFICE VISIT Date of Service: 06/02/24 MR#: [id number] Acct: [id number] Name: BRIGITTE HIGH Rep #: [id number] : 1950 Provider: Dr. Jadyn mccall MD Age/Sex: 73/F Location: [facility] Status: Signed Intake Vital Signs 04/21/24 [...] PO Q6H PRN pain 01/20/24 06/02/24 History ytfiozgguswg-Jz-cqnr-mine rals 1 tab PO DAILY 01/20/24 06/02/24 History vitamin C 45 mg-zinc citrate 3.75 1 tab PO DAILY 01/20/24 06/02/24 History mg-elderberry 50 mg chewable tablet (Notch Wearable Movement Capture) calcium 600 mg (as 1 tab PO [...] surgery of right breast Z98.890 [facility] Medical History Wears hearing aid Wears dentures [...] She is to follow-up as needed. 06/02/24 2088 Date [facility]: Date (if applicable) CC: Normal [facility] Plastic Surgery Visit Report on 05-05-2024 Plastic Surgery Visit Report [facility] Plastic Reconstructive Surgery [address], [address] [place] [address] OFFICE VISIT Date of Service: 05/05/24 MR#: [id number] Acct: [id number] Name: BRIGITTE HIGH Rep #: [id number] : 1950 Provider: Dr. Jadyn mccall MD Age/Sex: 73/F Location: [facility] Status: Signed Intake Vital Signs 04/21/24 [...] PO Q6H PRN pain 01/20/24 04/21/24 History nwgzvdznuygc-Bo-vqnm-mine rals 1 tab PO DAILY 01/20/24 05/05/24 History vitamin C 45 mg-zinc citrate 3.75 1 tab PO DAILY 01/20/24 05/05/24 History mg-elderberry 50 mg chewable tablet (Notch Wearable Movement Capture) calcium 600 mg (as 1 tab PO [...] Status post breast reconstruction Z98.890 [facility] Medical History Wears hearing aid Wears dentures [...] Cosigner Signature: Date (if applicable) CC: Normal [facility] Plastic Surgery Visit Report on 04-21-2024 Plastic Surgery Visit Report [facility] Plastic Reconstructive Surgery [address], [address] [place] [address] OFFICE VISIT Date of Service: 04/21/24 MR#: [id number] Acct: [id number] Name: BRIGITTE HIGH Rep #: [id number] : 1950 Provider: Dr. Jadyn mccall MD Age/Sex: 73/F Location: [facility] Status: Signed Intake Vital Signs [...] PO Q6H PRN pain 01/20/24 04/21/24 History siavuggphdzi-Hk-tmzp-mine rals 1 tab PO DAILY 01/20/24 04/21/24 History vitamin C 45 mg-zinc citrate 3.75 1 tab PO DAILY 01/20/24 04/21/24 History mg-elderberry 50 mg chewable tablet (Notch Wearable Movement Capture) calcium carbonate 600 mg-vitamin 1 tab PO [...] Status post breast reconstruction Z98.890 [facility] Medical History Wears hearing aid Wears dentures [...] Additional Comments: Follow-up in 2 weeks 04/21/24 165 Date [facility]: Date (if applicable) CC: Normal [facility] Plastic Surgery Visit Report on 03-31-2024 Plastic Surgery Visit Report [facility] Plastic Reconstructive Surgery [address], [address] [place] [address] OFFICE VISIT Date of Service: 03/31/24 MR#: [id number] Acct: [id number] Name: BRIGITTE HIGH Rep #: [id number] : 1950 Provider: Dr. Jadyn mccall MD Age/Sex: 73/F Location: [facility] Status: Signed Intake Vital Signs [...] PO Q6H PRN pain 01/20/24 03/31/24 History hanhwimsaegq-Oi-vcml-mine rals 1 tab PO DAILY 01/20/24 03/31/24 History vitamin C 45 mg-zinc citrate 3.75 1 tab PO DAILY 01/20/24 03/31/24 History mg-elderberry 50 mg chewable tablet (Notch Wearable Movement Capture) calcium carbonate 600 mg-vitamin 1 tab PO [...] surgery of right breast Z98.890 [facility] Medical History Wears hearing aid Wears dentures [...] in 3 weeks. 03/31/24 1646 Date Jadyn Ocasioigner Signature: Date (if applicable) CC: Normal [facility] Plastic Surgery Visit Report on 03-17-2024 Plastic Surgery Visit Report [facility] Plastic Reconstructive Surgery [address], [address] [place] [address] OFFICE VISIT Date of Service: 03/17/24 MR#: [id number] Acct: [id number] Name: BRIGITTE HIGH Rep #: [id number] : 1950 Provider: Dr. Jadyn mccall MD Age/Sex: 73/F Location: [facility] Status: Signed Intake Vital Signs [...] PO Q6H PRN pain 01/20/24 03/17/24 History mplhyrcxlkuv-Vx-hplg-mine rals 1 tab PO DAILY 01/20/24 03/17/24 History vitamin C 45 mg-zinc citrate 3.75 1 tab PO DAILY 01/20/24 03/17/24 History mg-elderberry 50 mg chewable tablet (Notch Wearable Movement Capture) calcium carbonate 600 mg-vitamin 1 tab PO [...] Status post breast reconstruction Z98.890 [facility] Medical History Wears hearing aid Wears dentures [...] interim with any questions or problems 03/17/24 7279 Date Jadyn Chavez MD [facility] Signature: Date (if applicable) CC: Normal [facility] Plastic Surgery Visit Report on 03-10-2024 Plastic Surgery Visit Report [facility] Plastic Reconstructive Surgery [address], [address] [place] [address] OFFICE VISIT Date of Service: 03/10/24 MR#: [id number] Acct: [id number] Name: BRIGITTE HIGH Rep #: [id number] : 1950 Provider: Dr. Jadyn mccall MD Age/Sex: 73/F Location: [facility] Status: Signed Intake Vital Signs [...] PO Q6H PRN pain 01/20/24 03/10/24 History tjvjklggpqlz-Ks-wzmw-mine rals 1 tab PO DAILY 01/20/24 03/10/24 History vitamin C 45 mg-zinc citrate 3.75 1 tab PO DAILY 01/20/24 03/10/24 History mg-elderberry 50 mg chewable tablet (Notch Wearable Movement Capture) calcium carbonate 600 mg-vitamin 1 tab PO [...] Global Post Op Diagnoses Breast asymmetry between ewiiaapaayp breast and reconstructed breast N65.1 Status post left breast reconstruction Z98.890 History of reduction surgery of right breast Z98.890 [facility] Medical History Wears hearing aid Wears dentures [...] Assessment and Plan (1) Breast asymmetry between ewiiaapaayp breast and reconstructed breast: Status: Acute (2) Status post left breast reconstruction: Status: Acute (3) History of reduction surgery of right breast: Status: Acute Plan Details Additional Comments: She is to follow-up in 1 week for recheck. She is encouraged to call in the interim with any problems. Her limitations were reviewed with her and her daughter 02/25 (more content not included)... Normal [facility] Discharge Instructionon Discharge Instruction [facility] Medical Records Department [address] [place] [address] Instructions for Home/Discharge Instructions 03/04/24 1123 MR#: [id number] Acct: [id number] Name: BRIGITTE HIGH Rep #: [id number] : 1950 73 From: Jadyn Chavez MD PCP: MITCHEL BrownC Status:REG [facility] Discharge Instructions Dressing / [...] Care Provider: Kristyn Dougherty Instructions Print Language: Dutch Discharge Orders/Prescriptions Prescriptions: No Action ibuprofen 600 mg tablet 600 mg PO Q6H PRN (Reason: pain) mhstyosnlfgj-Nb-qidc-mine rals Tablet 1 tab PO DAILY Neuriva Original 100-100 mg capsule 1 cap PO DAILY Elderberry [employer] 45-3.75-50 mg tablet,chewable 1 tab PO [...] Care 03/04/24 1124 Jadyn Chavez MD CC: LABOR DELIVERY SPECIALIST-C Kristyn Dougherty Signed Normal [facility] Discharge Instruction [facility] Medical Records Department [address] [place] [address] Instructions for Home/Discharge Instructions 03/04/24 1121 MR#: [id number] Acct: [id number] Name: BRIGITTE HIGH Rep #: [id number] : 1950 73 From: Jadyn Chavez MD PCP: DOUG Brown Status:DEP [facility] Discharge Instructions Dressing / [...] Care Provider: Kristyn Dougherty Instructions Print Language: Dutch Discharge Orders/Prescriptions Prescriptions: No Action ibuprofen 600 mg tablet 600 mg PO Q6H PRN (Reason: pain) oyzoiwnfpwun-Px-cgjg-mine rals Tablet 1 tab PO DAILY Neuriva Original 100-100 mg capsule 1 cap PO DAILY [facility] 45-3.75-50 mg tablet,chewable 1 tab [...] Jadyn Chavez MD CC: DOUG Dougherty Signed [facility] MR/POSTOP.ANEon 03-04-2024 MR/POSTOP.[facility] Medical Records Department [address] [facility] [address] Anesthesia Postop Eval I 03/04/24 1122 MR#: [id number] Acct: [id number] Name: BRIGITTE HIGH Rep #: [id number] : 1950 73 From: Hyun Hernandez PCP: DOUG Brown Status:REG SDC Y Race: C Location: [place] [address] Anesthesia: Postop Eval I Current Vital Signs [...] Date Hyun Houston Signature: Date CC: Signed [facility] MR/JLGHKWUI7ub 03-04-2024 MR/POSTOPAN2 [facility] Medical Records Department [address] [place] [address] Anesthesia Postop Eval II 03/04/24 1146 MR#: [id number] Acct: [id number] Name: BRIGITTE HIGH Rep #: [id number] : 1950 73 From: Julito Domingo MD PCP: DOUG Brown Status:REG [facility] Y Race: C Location: [place] [address] Anesthesia Postop Eval I Sum Anesthesia Postop [...] MD Cosigner Signature: Date CC: Signed [facility] Operative Reporton 4 Operative Report [facility] Medical Records Department [address] [place] [address] Operative Report 03/04/24 1124 MR#: [id number] Acct: [id number] Name: BRIGITTE HIGH Rep #: [id number] : 1950 73 From: Jadyn Chavez MD PCP: DOGU Brown Status:[facility] Location: [facility] Report of Operation Date of Procedure: 03/04/24 Pre-Operative Diagnosis: Asymmetry between the right ewiiaapaayp breast and the left reconstructed breast; Right [...] clips. This is further reinforced with some rfwjvf-qr-ynqdl Vicryl sutures. The skin edges were then [...] Documentation VTE Mechan Device Prophylaxis: SCD's 03/04/24 1769 Cosigner Signature (if applicable): CC: DOUG Dougherty; Dr. Jadyn Chavez MD Signed Normal [facility] Surgery Specimen Level Franky 03-04-2024 Surgery Specimen Level IV Patient Age/Sex Location Account Attending Physician BRIGITTE HIGH 73/F [facility] [id number] Dr. Jadyn Chavez MD Specimen: [id number] Received: 03/04/24 Status: MEHREEN Muade Num: [id number] Spec Type: Lesion Subm Dr: Dr. Jadyn Chavez MD HEADER OPERATION: Right breast lift and revision left breast reconstruction PRE-OP DIAGNOSIS: Breast asymmetry between ewiiaapaayp breast and reconstructed breast, painful periwound skin, ptosis of right breast, status post left breast reconstruction, history of breast cancer in adulthood TISSUE SUBMITTED: Right breast tissue and skin MICROSCOPIC DIAGNOSIS Right breast tissue and skin, revision left breast reconstruction: Skin with underlying tissue and scant fragments of benign breast tissue, no pathologic diagnosis. [facility] 03/05/2024 MICROSCOPIC DESCRIPTION Slides are reviewed. [...] Sections do not reveal any mass lesions. Hot Metal Charger sections are submitted in two cassettes. [facility] 03/04/2024 TC:4 CPT:89012 Patient Age/Sex Location Account Attending Physician BRIGITTE HIGH 73/F [facility] [id number] Dr. Jadyn Chavez MD Signed (signature on file) Dr. Cy Sandhu MD 03/05/[address] [facility] Comment on above: Performed By: #### P SUIV ####[facility] [address] [place], [address] Basic Metabolic Profile (BMP )on 02-18-2024 BUN/CRE 32.4 RATIO High 10-20 [facility] Comment on above: Order Comment: pre s urgery testing Performed By: #### L 300.4310, L500.2500, L300.3900, L100.0500 ####[facility] [address] [place], [address] CA,Total 9.3 mg/dL Normal 8.5-10.1 [facility] Comment on above: Order Comment: pre s urgery testing Performed By: #### L 300.4310, L500.2500, L300.3900, L100.0500 ####[facility] [address] [place], [address] Chloride [Moles/Vol] 109 mmol/L High 98-107 [facility] Comment on above: Order Comment: pre s urgery testing Performed By: #### L 300.4310, L500.2500, L300.3900, L100.0500 ####[facility] [address] [place], [address] CO2 [Moles/Vol] 23.0 mmol/L Normal 21.0-32.0 [facility] Comment on above: Order Comment: pre s urgery testing Performed By: #### L 300.4310, L500.2500, L300.3900, L100.0500 ####[facility] [address] [place], [address] Creatinine [Mass/Vol] 0.68 mg/dL Normal 0.55-1.02 [facility] Comment on above: Order Comment: pre s urgery testing Result Comment: The validity of the calculated GFR GFRAA in patients over 70 years has not been determined. Clinical correlation is essential. Performed By: #### L 300.4310, L500.2500, L300.3900, L100.0500 ####[facility] [address] [place], [address] EST GFR - AA 109 mL/min Normal >60 [facility] Comment on above: Order Comment: pre s urgery testing Result Comment: Afri can Liberian GFR Calc Performed By: #### L 300.4310, L500.2500, L300.3900, L100.0500 ####[facility] [address] [place], [address] GAP 6 Normal 5-15 [facility] Comment on above: Order Comment: pre s urgery testing Performed By: #### L 300.4310, L500.2500, L300.3900, L100.0500 ####[facility] [address] [place], [address] GFR/1.73 sq M.predicted among non-blacks MDRD (S/P/Bld) [Vol rate/Area] 90 mL/min/{1.73_m2} Normal >60 [facility] Comment on above: Order Comment: pre s urgery testing Result Comment: Non- GFR Calc Performed By: #### L 300.4310, L500.2500, L300.3900, L100.0500 ####[facility] [address] [place], [address] Glucose [Mass/Vol] 104 mg/dL Normal 74-106 [facility] Comment on above: Order Comment: pre s urgery testing Result Comment: Fast ing Glucose result from 100 to 125 mg/dL suggests IMPAIRED HOMEOSTASIS per A.D.A. criteria. Performed By: #### L 300.4310, L500.2500, L300.3900, L100.0500 ####[facility] [address] [place], [address] Potassium [Moles/Vol] 4.2 mmol/L Normal 3.5-5.1 [facility] Comment on above: Order Comment: pre s urgery testing Performed By: #### L 300.4310, L500.2500, L300.3900, L100.0500 ####[facility] [address] [place], [address] Sodium [Moles/Vol] 138 mmol/L Normal 136-145 [facility] Comment on above: Order Comment: pre s urgery testing Performed By: #### L 300.4310, L500.2500, L300.3900, L100.0500 ####[facility] [address] [place], [address] Urea nitrogen [Mass/Vol] 22 mg/dL High 7-18 [facility] Comment on above: Order Comment: pre s urgery testing Performed By: #### L 300.4310, L500.2500, L300.3900, L100.0500 ####[facility] [address] [place], [address] CBC-Complete Blood Cnt No Di ffon 02-18-2024 Erythrocyte distribution width (RBC) [Ratio] 13.8 % Normal 11.6-14.6 [facility] Comment on above: Order Comment: Ester nts: pre surgery testing Performed By: #### L 300.4310, L500.2500, L300.3900, L100.0500 ####[facility] [address] [place], [address] Hematocrit (Bld) [Volume fraction] 41.3 % Normal 37-47 [facility] Comment on above: Order Comment: Ester nts: pre surgery testing Performed By: #### L 300.4310, L500.2500, L300.3900, L100.0500 ####[facility] [address] [place], [address] Hemoglobin (Bld) [Mass/Vol] 13.4 g/dL Normal 12.0-15.0 [facility] Comment on above: Order Comment: Ester nts: pre surgery testing Performed By: #### L 300.4310, L500.2500, L300.3900, L100.0500 ####[facility] [address] [place], [address] MCH (RBC) [Entitic mass] 30.4 pg Normal 27.0-32.0 [facility] Comment on above: Order Comment: Ester nts: pre surgery testing Performed By: #### L 300.4310, L500.2500, L300.3900, L100.0500 ####[facility] [address] [place], [address] MCHC (RBC) [Mass/Vol] 32.4 g/dL Normal 32-36 [facility] Comment on above: Order Comment: Ester nts: pre surgery testing Performed By: #### L 300.4310, L500.2500, L300.3900, L100.0500 ####[facility] [address] [place], [address] MCV (RBC) [Entitic vol] 93.7 fL Normal 81-99 [facility] Comment on above: Order Comment: Ester nts: pre surgery testing Performed By: #### L 300.4310, L500.2500, L300.3900, L100.0500 ####[facility] [address] [place], [address] Platelet mean volume (Bld) [Entitic vol] 9.4 fL Normal 6.2-12.0 [facility] Comment on above: Order Comment: Ester nts: pre surgery testing Performed By: #### L 300.4310, L500.2500, L300.3900, L100.0500 ####[facility] [address] [place], [address] Platelets (Bld) [#/Vol] 268 10*3/uL Normal 150-450 [facility] Comment on above: Order Comment: Ester nts: pre surgery testing Performed By: #### L 300.4310, L500.2500, L300.3900, L100.0500 ####[facility] [address] [place], [address] RBC (Bld) [#/Vol] 4.41 10*6/uL Normal 4.2-5.4 [facility] Comment on above: Order Comment: Ester nts: pre surgery testing Performed By: #### L 300.4310, L500.2500, L300.3900, L100.0500 ####[facility] [address] [place], [address] RDW SD 47.8 fl High 35.1-43.9 [facility] Comment on above: Order Comment: Ester nts: pre surgery testing Performed By: #### L 300.4310, L500.2500, L300.3900, L100.0500 ####[facility] [address] [place], [address] WBC (Bld) [#/Vol] 6.6 10*3/uL Normal 4.4-11.0 [facility] Comment on above: Order Comment: Comme nts: pre surgery testing Performed By: #### L 300.4310, L500.2500, L300.3900, L100.0500 ####[facility] [address] [place], [place], [address] Partial Thromboplast Timeon 02-18-2024 aPTT Coag (Bld) [Time] 27.0 s Normal 24.1-36.2 [facility] Comment on above: Order Comment: Comme nts: pre surgery testing Performed By: #### L 300.4310, L500.2500, L300.3900, L100.0500 ####[facility] [address] [place], [place], [address] Plastic Surgery Visit Report on 02-18-2024 Plastic Surgery Visit Report [facility] Plastic Reconstructive Surgery [address], [address] [place], [place] [address] OFFICE VISIT Date of Service: 02/18/24 MR#: [id number] Acct: [id number] Name: BRIGITTE HIGH Rep #: [id number] : 1950 Provider: Dr. Jadyn mccall MD Age/Sex: 73/F Location: [facility] Status: Signed Intake Vital Signs [...] mg PO Q6H PRN 01/20/24 02/18/24 History apcrxeidawev-Hq-ight-mine rals tab PO 01/20/24 02/18/24 History vitamin C 45 mg-zinc citrate 3.75 tab PO 01/20/24 02/18/24 History mg-elderberry 50 mg chewable tablet ([facility]) coffee extract 100 mg-phosphatidyl cap PO 02/04/24 02/18/24 History serine 100 mg capsule (Neuriva Original) tlttaotxex-[place]-jxesjhmhobr en 6.25 ml PO 02/04/24 02/18/24 History [...] pre op #2, has a few questions [facility] History (Updated 01/20/24 @ 10:37 by [...] the appointmen (more content not included)... Normal [facility] Prothrombin Time w/INRon INR Coag (PPP) [Relative time] 1.1 {INR} Normal [facility] Comment on above: Order Comment: Comme nts: pre surgery testing Performed By: #### L 300.4310, L500.2500, L300.3900, L100.0500 ####[facility] [address] [place], [place], [id number] PT Coag (PPP) [Time] 13.8 s Normal 11.7-14.9 [facility] Comment on above: Order Comment: Comme nts: pre surgery testing Performed By: #### L 300.4310, L500.2500, L300.3900, L100.0500 ####[facility] [address] [place], [place], [id number] Plastic Surgery Visit Report on 02-04-2024 Plastic Surgery Visit Report [facility] Plastic Reconstructive Surgery [address], [address] [place] [address] OFFICE VISIT Date of Service: 02/04/24 MR#: [id number] Acct: [id number] Name: BRIGITTE HIGH Rep #: [id number] : 1950 Provider: Dr. 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 I [...] Painful periwound skin R23.8 Breast asymmetry between ewiiaapaayp breast and reconstructed breast N65.1 Ptosis of right breast N64.81 Status post left br (more content not included)... Normal [facility] Plastic Surgery Visit Report on 01-20-2024 Plastic Surgery Visit Report [facility] Plastic Reconstructive Surgery [address], [address] [place] [address] OFFICE VISIT Date of Service: 01/20/24 MR#: [id number] Acct: [id number] Name: BRIGITTE HIGH Rep #: [id number] : 1950 Provider: Dr. Jadyn mccall MD Age/Sex: 73/F Location: [facility] Status: Signed Intake Vital Signs [...] mg PO Q6H PRN 01/20/24 01/20/24 History jhgaiyfuckas-Si-tsnf-mine rals tab PO 01/20/24 01/20/24 History vitamin C 45 mg-zinc citrate 3.75 tab PO 01/20/24 01/20/24 History mg-elderberry 50 mg chewable tablet ([employer]) Have you fallen in the past year?: No Nurse's Note: pt here for left breast reconstruction/concern, scar on back from surgery [facility] Medical History (Updated 01/20/24 @ 10:37 by [...] mastectomy. She had her initial surgery at [facility] and the second surgery at [facility]. She has a history of nicotine use [...] has ptos (more content not included)... Normal [facility] C Urineon 11-06-2023 Bacteria identified Cx Nom [...] Locations R1: This test was performed at: [facility], [address] [place] [address], [address] , [place], Normal [facility] Comment on above: Performed By: #### 2 [id number] #### [facility] [address] [place] [address] SURGICAL PATHOLOGY REFERENCE LAB CONSULTon 10-08-2023 CASE REPORT Normal [facility] Comment on above: Order Comment: Speci men Type: FORMALIN-FIXED PARAFFIN-EMBEDDED TISSUE SPECIMEN Ordering Facility: [facility] Address: [address] [place] [phone] Result Comment: Surg ical Pathology Report Case: [id number] Authorizing Provider: Star Recinos MD Collected: 10/08/2023 07:46 PM Ordering Location: [facility] Received: 10/08/2023 07:45 PM [facility] Pathologist: Hema Ho MD Specimen: SLIDE(S), 4 SLIDES ([id number]) Performed By: #### L [id number] #### [facility] CLIA [id number] [address] [place] [address] STATES OF [facility] CLINICAL HISTORY CONSULT REQUESTED Normal [facility] Comment on above: Order Comment: Speci men Type: FORMALIN-FIXED PARAFFIN-EMBEDDED TISSUE SPECIMEN Ordering Facility: [facility] Address: [address] [place] [phone] Performed By: #### L [id number] #### [facility] CLIA [id number] [address] [place] [address] STATES OF [place] DIAGNOSIS COMMENT Normal [facility] Comment on above: Order Comment: Speci men Type: FORMALIN-FIXED PARAFFIN-EMBEDDED TISSUE SPECIMEN Ordering Facility: [facility] Address: [address] [place] [phone] Result Comment: No i nvasive component is found in the sample examined. P16 immunostain performed at the referring institution is diffusely/strongly positive. Further, high-risk HPV CISH performed at the [facility] is positive. Laboratory Developed Test (LDT) Disclaimer: Performance characteristics of immunohistochemical, immunofluorescent and chromogenic in-situ hybridization tests have been determined by the performing laboratory within [facility]???s [facility] [place] ([facility]3], [facility], [facility], [facility], [facility], [facility], or [facility]) in a manner consistent with CLIA requirements. One or more of these tests have not been cleared or approved by the FDA. [facility] is regulated under CLIA as qualified to perform high-complexity testing. These tests are used for clinical purposes. They should not be regarded as investigational or for research. Positive and negative controls stain appropriately. Performed By: #### L [id number] #### [facility] CLIA [id number] [address] [place] [address] OF [facility] FINAL DIAGNOSIS Normal [facility] Comment on above: Order Comment: Speci men Type: FORMALIN-FIXED PARAFFIN-EMBEDDED TISSUE SPECIMEN Ordering Facility: [facility] Address: [address] [place] [address] Result Comment: A. U rethral mass, excision: ([id number], 09/25/2023) - High-grade squamous intraepithelial lesion (see comment). Performed By: #### L [id number] #### [facility] CLIA [id number] [address] [place] [address] FINAL PERFORMING LAB Normal [facility] Comment on above: Order Comment: Speci men Type: FORMALIN-FIXED PARAFFIN-EMBEDDED TISSUE SPECIMEN Ordering Facility: [facility] Address: [address] [place], [place] [address] Result Comment: Diag nostic interpretation performed at [facility], [address] [place] [address] CLIA# [id number] Stud Driver: Eleazar Sutherland M.D. Performed By: #### L [id number] #### [facility] CLIA [id number] [address] [place] [address] STATES OF [place] Fabian 09-25-2023 L Specimen: [id number] Received: 09/26/23 Status: MEHREEN Tavarez Num: [id number] Spec Type: Surgical Subm Dr: Star Recinos MD Tissues: A Urethra Biopsy (URETHRAL MASS) Procedures: HE/2, Gross/Micro L4, Ki-67, CINtec p16, IHC First AB Age/ Patient Sex Location Account Attending Physician Brigitte High 72/F [place] [id number] Star Recinos MD SPEC NUM: [id number] RECD: 09/26/23 STATUS: MEHREEN TAVAREZ NUM: [id number] CRESCENCIO: 09/25/23 DR: Star Recinos MD ENTERED: 09/26/[address] [facility] [address]: SPEC TYPE: Surgical DEPT: HONG GARCIA [...] (signature on file) Rocío Horvath MD 10/20/23 113 Addendum 1 Entered: 10/16/23-1436 Urethral mass, excision: ? High-grade squamous intraepithelial lesion. ? Comment: This specimen was reviewed by Dr. Hema Ho at the [facility], who rendered the diagnosis above. She noted that no invasive carcinoma is present in the sample examined. P16 immunostain performed at the referring institution is diffusely/strongly positive. Further, high-risk HPV CISH performed at the [facility] is positive. Specimen: [id number] Received: 09/26/23 Status: MEHREEN Tavarez Num: [id number] Spec Type: Surgical Subm Dr: Star Recinos MD Tissues: A Urethra Biopsy (URETHRAL MASS) Procedures: HE/2, Gross/Micro L4, Ki-67, CINtec p16, IHC First AB Patient: Brigitte High [id number] (Continued) Specimen: [id number] Received: 09/26/23 (Continued) Supplemental Report (Continued) Signed (signature on file) Rocío Horvath MD 09/29/23 1838 Specimen: [id number] Received: 09/26/23 Status: MEHREEN Tavarez Num: [id number] Spec Type: Surgical Subm Dr: Star Recinos MD Tissues: A Urethra Biopsy (URETHRAL MASS) Procedures: HE/2, Gross/Micro L4, Ki-67, CINtec p16, IHC First AB Patient: Jody Highie [id number] (Continued) Specimen: [id number] Received: 09/26/23 (Continued) Supplemental Report (Continued) Addendum [...] in one cassette labeled A1. CPT Codes 99482 22731, [address] Specimen: [id number] Received: 09/26/23 Status: MEHREEN Tavarez Num: [id number] Spec Type: Surgical Subm Dr: Star Recinos MD Tissues: A Urethra Biopsy (URETHRAL MASS) Procedures: HE/2, Gross/Micro L4, Ki-67, CINtec p16, IHC First AB Patient: Brigitte High [id number] (Continued) Signed (signature on file)___ (more content not included)... [facility] CNPNon 04-02-2023 CNPN Telephone (PLASAV) ----- BRIGITTE HIGH ([id number]) 1950 F Date Time Provider Department 04/02/23 [...] Encounter Status:Closed by KYRA PAGE on 04/02/23 [facility] CNOVon 03-28-2023 CNOV Office Visit (PLASAM ) ----- BRIGITTE HIGH ([id number]) 1950 F Date Time Provider Department 03/28/23 [...] Status:Closed by Lawrence MEDINA on 03/28/23 Normal [facility] MRI BREAST WO IVCON BILon MRI BREAST WO IVCON CHRIS * * *Final Report* * * DATE OF EXAM: Mar 25 2023 2:01PM [facility] 0699 - MRI BREAST WO IVCON CHRIS / PROCEDURE REASON: History of breast cancer * * * * Physician Interpretation * * * * #[id number] - MRI BREAST WO IVCON CHRIS BREAST [...] breast cancer. Marva Bonilla M.D. tr/renato:03/26/2023 11:11:18 Metal Annealer(s): Gray Mcdonald RT(R), [facility] MRI BI-RADS: n/a Multiple national specialty organizations have released breast cancer screening guidelines for women at average risk for developing breast cancer - guidelines that are based on both evidence and opinion, yet differ on when to start and how often to screen for breast cancer. With representation from Breast Imaging, Internal Medicine, Women's Health, Family Medicine, and Medical/Surgical Oncology, the [facility] has carefully reviewed the data [...] their providers when to stop screening mammograms. Sort Line: Renato Transcribe Date/Time: Mar 25 2023 1:29P Dictated by : MARVA BONILLA MD This examination was interpreted and the report reviewed and electronically signed by: MARVA BONILLA MD on Mar 26 2023 11:11AM EST [id number] Normal [facility] Established Visit (Orthopaed ic Surgery)on 02-11-2023 Established Visit (Orthopaedic Surgery) Diagnoses/Problems Assessed Patella fracture (822.0) (S82.009A) Orders Patella fracture Xray Knee 3 View; Status:Resulted - Preliminary,Retrospective Authorization; Done: [id number] 10:14AM Laterality : Left Radiologist to Determine [...] INDICATION: . S82.009A: Patella fracture. ACCESSION NUMBER(S): [id number] ORDERING CLINICIAN: SANDRA TAYLOR FINDINGS: Left knee films show transverse patellar fracture to stable in satisfactory position. There is filling in at the fracture site. There is moderate degenerative change seen in the medial and lateral compartments of the knee. There is also moderate degenerative change seen in the patellofemoral joint Electronically signed by: SANDRA TAYLOR MD Normal [facility] Radiologyon 02-11-2023 XR Knee 3 Views Normal [facility] Work Phone: Clinic Note - Heme Onc Sched ulingon 01-20-2023 Clinic Note - Heme Onc Scheduling Retrieve Patient Instructions: Patient Instructions: Patient Instructions: RetrievePatient Instructions Instructions Printed Schedule End of Visit Documentation: Clinic Location/Phone Number: Clinic Location/Phone Number: [place] [phone] End Of Visit MU Report Item: Visit Summary given or mailed to patientyes Mailed Appointments Electronic Signatures: Fatimah Melendez (Rev Cycl Spec) (Signed 20-Jan-2023 09:06) Authored: Retrieve Patient Instructions, End of Visit Documentation Last Updated: 20-Jan-2023 09:06 by Fatimah Melendez (Rev Cycl Spec) Normal [facility] CA27.29on 01-18-2023 CA27.29 53.0 U/mL High 0.0 - 38.6 [facility] Comment on above: Result Comment: CA 2 7.29 testing is performed by chemiluminescent immunoassay using the Siemens Switchcam. Values obtained with different analytic methods cannot [...] decisions. Performed By: #### C [id number] #### [facility] [address] [place] [address] CA27.29 (CA15-3)on 3 Cancer Ag 27-29 Qn 53.0 [arb'U]/mL above high threshold 0.0 - 38.6 -[facility] Work Phone: Comment on above: CA 27.29 testing is performed by chemiluminescent immunoassay using the Siemens Switchcam. Values obtained with different analytic methods cannot [...] Patient is a transfer her care from [facility]. Dr. Jing Campbell is her PCP. The patient is transferring her medical oncology care here, after having been cared for by Dr. Aleyda Richardson. Her Juan Sheffield was a patient of our practice and in early 2017. Last reported mammogram 06/05/2016 done in [place]. She has history of left sided breast [...] margin, lymphovascular invasion not definite; ER neg, MT neg, TDW2uwa neg. The patient does not recall what [...] and chest xray to be done at [facility] this upcoming Friday. She also [...] now due to intolerable waits at the [place] office. 12/27/2019: Here for annual visit in the setting of history of breast cancer. Her most recent mammogram done on December 30 2018 and that was negative. 12/26/2020 here for interval followup; looking forward to going back to [place] in near future 01/18/2022 here for interval followup; has no complaints 01/17/2023 here for interval followup; now living in [facility] PAST MEDICAL HISTORY: History of sleep [...] Eyes, Itching, (more content not included)... Normal [facility] Clinic Note - Intakeon 01-17 Clinic Note [...] 13:29 by Iona Ríos (DAMION II) Normal [facility] BILATERAL KNEE 1 OR 2 VIEWSo n 01-07-2023 BILATERAL KNEE 1 OR 2 VIEWS Patient Name: BRIGITTE HIGH STUDY: BILATERAL KNEE; 1 OR 2 VIEWS; Left; 01/07/2023 9:57 am INDICATION: FX S82.009A: Patella fracture. ACCESSION NUMBER(S): [id number] ORDERING CLINICIAN: SANDRA TAYLOR FINDINGS: Bilateral knee films show on the right no fracture, dislocation or destructive lesion. There is mild to moderate degenerative change seen. The left knee patellar fracture is in stable position. It is nondisplaced. There is some filling in at the fracture site. Electronically signed by: SANDRA TAYLOR MD Normal [facility] Established Visit (Orthopaed ic Surgery)on 01-07-2023 Established [...] Status: Hold For - Scheduling Requested for: [id number] Chief Complaint F/U Subacute left patella fracture [...] History o (more content not included)... Normal [facility] Established Visit (Orthopaed ic Surgery)on 12-10-2022 Established Visit (Orthopaedic Surgery) Diagnoses/Problems Assessed Other closed fracture of patella, unspecified laterality, initial encounter (822.0) (S82.099A) Chief Complaint Left knee pain Patient to bring xray disc History of Present Illness History of Present Illness This is a 72-year-old female here for. She was in [place] when she fell and landed on both knees. She has swelling and pain initially. Her pain did improve some. She never sought medical attention. She had knee pain. She had persistent pain and went to a hospital back in [place] and had x-rays. 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 Destini Horvath XR RIBS LT PA [...] ILDEFONSO HO Date: 2022-08-19 06:59 Normal [facility] CBC AUTO DIFFon 08-17-2022 BASO # 0.1 103/ul Normal 0.0-0.1 [facility] Comment on above: Performed By: #### C BC #### [facility] [address] [place] [address] Dr. Destini Horvath Basophils/100 WBC (Bld) 1.1 % Normal 0.2-2.0 [facility] Comment on above: Performed By: #### C BC #### [facility] [address] [place] [address] Dr. Destini Horvath EO # 0.2 103/ul Normal 0.0-0.7 [facility] Comment on above: Performed By: #### C BC #### [facility] [address] [place] [address] Dr. Destini Horvath Eosinophils/100 WBC (Bld) 2.9 % Normal 0.9-7.0 [facility] Comment on above: Performed By: #### C BC #### [facility] [address] [place] [address] Dr. Destini Horvath Erythrocyte distribution width (RBC) [Ratio] 13.4 % Normal 11.0-15.0 [facility] Comment on above: Performed By: #### C BC #### [facility] [address] [place] [address] Dr. Destini Horvath Hematocrit (Bld) [Volume fraction] 35.2 % Critically low 36.0-48.0 [facility] Comment on above: Performed By: #### C BC #### [facility] [address] [place] [address] Dr. Destini Horvath Hemoglobin (Bld) [Mass/Vol] 12.4 g/dL Normal 12.0-16.0 [facility] Comment on above: Performed By: #### C BC #### [facility] [address] [place] [address] Dr. Destini Horvath IG # 0.01 10e3/ul Normal 0.00-0.03 [facility] Comment on above: Performed By: #### C BC #### [facility] [address] [place] [address] Dr. Destini Horvath IG % 0.2 % Normal 0.0-0.5 [facility] Comment on above: Performed By: #### C BC #### [facility] [address] [place] [address] Dr. Destini Horvath LYMPH # 2.5 103/ul Normal 1.2-3.8 [facility] Comment on above: Performed By: #### C BC #### [facility] [address] [place] [address] Dr. Destini Horvath Lymphocytes/100 WBC (Bld) 45.6 % Normal 20.5-60.0 [facility] Comment on above: Performed By: #### C BC #### [facility] [address] [place] [address] Dr. Destini Horvath MANUAL DIFF REQ NO Normal [facility] Comment on above: Performed By: #### C BC #### [facility] [address] [address] [address] Destini Horvath MCH (RBC) [Entitic mass] 30.1 pg Normal 26.7-34.0 [facility] Comment on above: Performed By: #### C BC #### [facility] [address] [place] [address] Dr. Destini Horvath MCHC (RBC) [Mass/Vol] 35.2 g/dL Normal 29.9-35.2 [facility] Comment on above: Performed By: #### C BC #### [facility] [address] [place] [address] Dr. Destini Horvath MCV (RBC) [Entitic vol] 85.4 fL Normal 81.0-99.0 [facility] Comment on above: Performed By: #### C BC #### [facility] [address] [place] [address] Dr. Destini Horvath MONO # 0.5 103/ul Normal 0.3-0.8 [facility] Comment on above: Performed By: #### C BC #### [facility] [address] [place] [address] Dr. Destini Horvath Monocytes/100 WBC (Bld) 8.3 % Normal 1.7-12.0 [facility] Comment on above: Performed By: #### C BC #### [facility] [address] [place] [address] Dr. Destini Horvath NEUT # 2.3 103/ul Normal 1.4-6.5 [facility] Comment on above: Performed By: #### C BC #### [facility] [address] [place] [address] Dr. Destini Horvath Neutrophils/100 WBC (Bld) 41.9 % Critically low 43.0-75.0 [facility] Comment on above: Performed By: #### C BC #### [facility] [address] [place] [address] Dr. Destini Horvath Platelet mean volume (Bld) [Entitic vol] 9.6 fL Normal 9.5-13.5 [facility] Comment on above: Performed By: #### C BC #### [facility] [address] [address] [address] Destini Horvath PLT 262 103/ul Normal 150-450 [facility] Comment on above: Performed By: #### C BC #### [facility] [address] [address] [address] Destini Horvath RBC 4.12 106/ul Critically low 4.20-5.40 [facility] Comment on above: Performed By: #### C BC #### [facility] [address] [address] [address] Destini Horvath WBC 5.6 103/ul Normal 4.0-11.0 [facility] Comment on above: Performed By: #### C BC #### [facility] [address] [address] [address] Destini Horvath FREE THYROXINE INDEX T7on FTI 2.14 Normal 1.30-4.50 [facility] Comment on above: Performed By: #### T SH, LIPID, CMP, T7 #### [facility] [address] [address] [address] Destini Horvath T3U 34.0 % Normal 30.0-39.0 [facility] Comment on above: Performed By: #### T SH, LIPID, CMP, T7 #### [facility] [address] [address] [address] Destini Horvath T4 [Mass/Vol] 6.30 ug/dL Normal 4.80-13.90 [facility] Comment on above: Performed By: #### T SH, LIPID, CMP, T7 #### [facility] [address] [address] [address] Destini Horvath GLYCOHEMOGLOBIN A1Con 2022 ADA RECOMMENDATION SEE BELOW Normal [facility] Comment on above: Result Comment: ADA RECOMMENDED LIMIT 4.0 - 6.0 ADA THERAPEUTIC TARGET < 7.0 ACTION SUGGESTED > 7.0 Performed By: #### U RCX #### [facility] [address] [address] [address] Destini Horvath Glucose [Mass/Vol] 117 mg/dL Normal [facility] Comment on above: Performed By: #### U RCX #### [facility] [address] [address] [address] Destini Horvath HbA1c (Bld) [Mass fraction] 5.7 % Normal 4.5-6.2 [facility] Comment on above: Performed By: #### U RCX #### [facility] [address] [id number] [address] Destini Horvath IRONon 08-17-2022 Iron [Mass/Vol] 39.0 ug/dL Critically low 50.0-170.0 [facility] Comment on above: Performed By: #### U RCX #### [facility] [address] [address] [address] Destini Horvath LIPID PROFILEon 08-17-2022 CHOL-HDL RATIO NORM SEE BELOW Normal [facility] Comment on above: Result Comment: 3.3 - 4.4 LOW RISK 4.4 - 7.1 AVERAGE RISK 7.1 - 11.0 MODERATE RISK >11.0 HIGH RISK Performed By: #### T SH, LIPID, CMP, T7 #### [facility] [address] [address] [address] Destini Horvath Cholesterol [Mass/Vol] 191 mg/dL Normal <=200 [facility] Comment on above: Performed By: #### T SH, LIPID, CMP, T7 #### [facility] [address] [address] [address] Destini Horvath Cholesterol in HDL [Mass/Vol] 109 mg/dL Critically high 40-60 [facility] Comment on above: Performed By: #### T SH, LIPID, CMP, T7 #### [facility] [address] [id number] [address] Destini Horvath Cholesterol in LDL [Mass/Vol] 69.2 mg/dL Normal [facility] Comment on above: Performed By: #### T SH, LIPID, CMP, T7 #### [facility] [address] [id number] [address] Destini Horvath Cholesterol.total/ Cholesterol in HDL [Mass ratio] 1.8 {ratio} Normal [facility] Comment on above: Performed By: #### T SH, LIPID, CMP, T7 #### [facility] [address] [address] [address] Destini Horvath HDL NORMAL > or = 60 mg/dl - LO W CARDIOVASCULAR RISK <40 mg/dl - HIGH CARDIOVASCULAR RISK Normal [facility] Comment on above: Performed By: #### T SH, LIPID, CMP, T7 #### [facility] [address] [address] [address] Destini Horvath LDL CALC NORMAL SEE BELOW Normal [facility] Comment on above: Result Comment: <100 mg/dl OPTIMAL 100 - 129 mg/dl NEAR OR ABOVE OPTIMAL 130 - 159 mg/dl BORDERLINE HIGH 160 - 189 mg/dl HIGH >190 mg/dl VERY HIGH Performed By: #### T SH, LIPID, CMP, T7 #### [facility] [address] [address] [address] Destini Horvath Triglyceride [Mass/Vol] 64 mg/dL Normal <=150 [facility] Comment on above: Performed By: #### T SH, LIPID, CMP, T7 #### [facility] [address] [address] [address] Destini Horvath VLDL CALC 12.8 mg/dL Normal [facility] Comment on above: Performed By: #### T SH, LIPID, CMP, T7 #### [facility] [address] [address] [address] Destini Horvath PROF 14(COMP METB)on 023 Albumin [Mass/Vol] 3.6 g/dL Normal 3.4-5.0 [facility] Comment on above: Performed By: #### T SH, LIPID, CMP, T7 #### [facility] [address] [address] [address] Destini Horvath Albumin/Globulin [Mass ratio] 1.0 {ratio} Normal [facility] Comment on above: Performed By: #### T SH, LIPID, CMP, T7 #### [facility] [address] [address] [address] Destini Horvath ALP [Catalytic activity/Vol] 101 U/L Normal 46-116 [facility] Comment on above: Performed By: #### T SH, LIPID, CMP, T7 #### [facility] [address] [address] [address] Destini Horvath ALT [Catalytic activity/Vol] 27 U/L Normal 14-59 [facility] Comment on above: Performed By: #### T SH, LIPID, CMP, T7 #### [facility] [address] [address] [address] Destini Horvath Anion gap [Moles/Vol] 15.0 mmol/L Normal [facility] Comment on above: Performed By: #### T SH, LIPID, CMP, T7 #### [facility] [address] [address] [address] Destini Horvath AST [Catalytic activity/Vol] 22 U/L Normal 15-37 [facility] Comment on above: Performed By: #### T SH, LIPID, CMP, T7 #### [facility] [address] [place] [address] Dr. Destini Horvath Bilirubin [Mass/Vol] 0.3 mg/dL Normal 0.2-1.0 [facility] Comment on above: Performed By: #### T SH, LIPID, CMP, T7 #### [facility] [address] [place] [address] Dr. Destini Horvath Calcium [Mass/Vol] 9.2 mg/dL Normal 8.5-10.1 [facility] Comment on above: Performed By: #### T SH, LIPID, CMP, T7 #### [facility] [address] [address] [address] Destini Horvath Chloride [Moles/Vol] 108 mmol/L Critically high 98-107 [facility] Comment on above: Performed By: #### T SH, LIPID, CMP, T7 #### [facility] [address] [place] [address] Dr. Destini Horvath CO2 [Moles/Vol] 23.7 mmol/L Normal 21.0-32.0 [facility] Comment on above: Performed By: #### T SH, LIPID, CMP, T7 #### [facility] [address] [address] [address] Destini Horvath Creatinine [Mass/Vol] 0.59 mg/dL Normal 0.55-1.02 [facility] Comment on above: Performed By: #### T SH, LIPID, CMP, T7 #### [facility] [address] [address] [address] Destini Horvath EGFR-AF MACANESE >60 Normal >=60 [facility] Comment on above: Performed By: #### T SH, LIPID, CMP, T7 #### [facility] [address] [address] [address] Destini Horvath EGFR-NON AF MACANESE >60 Normal >=60 [facility] Comment on above: Performed By: #### T SH, LIPID, CMP, T7 #### [facility] [address] [place] [address] Dr. Destini Horvath Globulin (S) [Mass/Vol] 3.7 g/dL Normal [facility] Comment on above: Performed By: #### T SH, LIPID, CMP, T7 #### [facility] [address] [address] [address] Destini Horvath Glucose [Mass/Vol] 91 mg/dL Normal 74-[address] [facility] Comment on above: Performed By: #### T SH, LIPID, CMP, T7 #### [facility] [address] [address] [address] Destini Horvath Potassium [Moles/Vol] 3.7 mmol/L Normal 3.5-5.1 [facility] Comment on above: Performed By: #### T SH, LIPID, CMP, T7 #### [facility] [address] [address] [address] Destini Horvath Protein [Mass/Vol] 7.3 g/dL Normal 6.4-8.[address] [facility] Comment on above: Performed By: #### T SH, LIPID, CMP, T7 #### [facility] [address] [address] [address] Destini Horvath Sodium [Moles/Vol] 143 mmol/L Normal 136-[address] [facility] Comment on above: Performed By: #### T SH, LIPID, CMP, T7 #### [facility] [address] [address] [address] Destini Horvath Urea nitrogen [Mass/Vol] 17.0 mg/dL Normal 7.0-18.0 [facility] Comment on above: Performed By: #### T SH, LIPID, CMP, T7 #### [facility] [address] [address] [address] Destini Horvath Urea nitrogen/Creatinin e [Mass ratio] 28.8 mg/mg Normal [facility] Comment on above: Performed By: #### T SH, LIPID, CMP, T7 #### [facility] [address] [place] [address] Dr. Destini Horvath TSHon 08-17-2022 TSH 2.888 uIU/mL Normal 0.358-3.740 [facility] Comment on above: Performed By: #### T SH, LIPID, CMP, T7 #### [facility] [address] [address] [address] Destini Horvath Covid-19 PCR (CVDTB)on SARS-CoV-2 (COVID-19) RNA MARY+probe Ql (Unsp spec) Not detected Normal NOT DETECTED [facility] Comment on above: Result Comment: When diagnostic [...] for this test is supported by the [place] of Health and Human Service's declaration that [...] used). Performed By: #### C VDTBH #### [facility] [address] [place] [address] Dr. Destini Horvath INFLUENZA A AND B AGon 07-05 INFLUANEGH SEE BELOW Normal [facility] Comment on above: Result Comment: Nega tive for Flu A protein angiten. Infection due to Flu A cannot be ruled out. Flu A angiten in the sample may be below the detection limit of the test. Performed By: #### U RCX #### [facility] [address] [place] [address] Dr. Destini [facility] SEE BELOW Normal [facility] Comment on above: Result Comment: Nega tive for Flu B protein antigen. Infection due to Flu B cannot be ruled out. Flu B antigen in the sample may be below the detection limit of the test. Performed By: #### U RCX #### [facility] [address] [place] [address] Dr. Destini Horvath INFLUENZA A AG Negative Normal NEGATIVE SEE COMMENT [facility] Comment on above: Performed By: #### U RCX #### [facility] [address] [place] [address] Dr. Destini Horavth INFLUENZA B AG Negative Normal NEGATIVE SEE COMMENT [facility] Comment on above: Performed By: #### U RCX #### [facility] [address] [place] [address] Dr. Destini Horvath INTERNAL CONTROLS Within Normal Limits Normal Wi thin Normal Limits [facility] Comment on above: Performed By: #### U RCX #### [facility] [address] [place] [address] Dr. Destini Horvath CULTURE URINEon 06-30-2022 CULTURE [...] Trimethoprim/Sulfamethoxa zole <=20 S F Normal [facility] Comment on above: Performed By: #### U RCX #### [facility] [address] [place] [address] Dr. eDstini Horvath UA RANDOM W/MICROSCOPICon BACTERIA LARGE Abnormal NONE SEEN [facility] Comment on above: Performed By: #### U RCX #### [facility] [address] [place] [address] Dr. Destini Horvath Bilirubin Ql (U) Negative Normal NEGATIVE [facility] Comment on above: Performed By: #### U RCX #### [facility] [address] [place] [address] Dr. Destini Horvath CAST NONE SEEN Normal NONE SEEN [facility] Comment on above: Performed By: #### U RCX #### [facility] [address] [place] [address] Dr. Destini Horvath Clarity (U) SL CLOUDY Abnormal CLEAR [facility] Comment on above: Performed By: #### U RCX #### [facility] [address] [place] [address] Dr. Destini Horvath Color (U) LT. YELLOW Normal YELLOW [facility] Comment on above: Performed By: #### U RCX #### [facility] [address] [place] [address] Dr. Destini Horvath Crystals LM Nom (Urine sed) NONE SEEN Normal NONE SEEN [facility] Comment on above: Performed By: #### U RCX #### [facility] [address] [place] [address] Dr. Destini Horvath Epithelial cells LM Ql (Urine sed) FEW Abnormal NONE SEEN /RARE [facility] Comment on above: Performed By: #### U RCX #### [facility] [address] [place] [address] Dr. Destini Horvath Glucose Ql (U) Negative Normal NEGATIVE [facility] Comment on above: Performed By: #### U RCX #### [facility] [address] [address] [address] Destini Horvath Hemoglobin Ql (U) TRACE-INTACT Abnormal NEGATIVE [facility] Comment on above: Performed By: #### U RCX #### [facility] [address] [address] [address] Destini Horvath Ketones Ql (U) Negative Normal NEGATIVE [facility] Comment on above: Performed By: #### U RCX #### [facility] [address] [address] [address] Destini Horvath LEUKOCYTES MODERATE Abnormal NEGATIVE [facility] Comment on above: Performed By: #### U RCX #### [facility] [address] [place] [address] Dr. Destini Horvath MUCOUS NONE SEEN Normal NONE SEEN [facility] Comment on above: Performed By: #### U RCX #### [facility] [address] [place] [address] Dr. Destini Horvath Nitrite Ql (U) Negative Normal NEGATIVE [facility] Comment on above: Performed By: #### U RCX #### [facility] [address] [place] [address] Dr. Destini Horvath pH (U) 5.5 [pH] Normal 5-9 [facility] Comment on above: Performed By: #### U RCX #### [facility] [address] [place] [address] Dr. Destini Horvath RBC 2-5 Abnormal 0-2 [facility] Comment on above: Performed By: #### U RCX #### [facility] [address] [place] [address] Dr. Destini Horvath SPEC GRAVITY 1.015 Normal 1.005-<=1.02 5 [facility] Comment on above: Performed By: #### U RCX #### [facility] [address] [place] [address] Dr. Destini Horvath UA PROTEIN Negative Normal NEGATIVE/ TRACE [facility] Comment on above: Performed By: #### U RCX #### [facility] [address] [place] [address] Dr. Destini Horvath Urobilinogen Qn (U) 0.2 {Abner'U}/dL Normal 0.2 - 1.0 [facility] Comment on above: Performed By: #### U RCX #### [facility] [address] [address] [address] Destini Horvath WBC (U) [#/Vol] /uL Abnormal NONE SEEN [facility] Comment on above: Performed By: #### U RCX #### [facility] [address] [address] [address] Destini Horvath CBCon 04-29-2022 Erythrocyte distribution width (RBC) [Ratio] 14.0 % Normal 11.5 - 14.5 [facility] Comment on above: Performed By: #### C BC #### [address] [id number] Hematocrit (Bld) [Volume fraction] 41.0 % Normal 36.0 - 46.0 [facility] Comment on above: Performed By: #### C BC #### [address] [id number] Hemoglobin (Bld) [Mass/Vol] 12.9 g/dL Normal 12.0 - 16.0 [facility] Comment on above: Performed By: #### C BC #### [address] [id number] MCHC (RBC) [Mass/Vol] 31.5 g/dL Low 32.0 - 36.0 [facility] Comment on above: Performed By: #### C BC #### [address] [id number] MCV (RBC) [Entitic vol] 97 fL Normal 80 - 100 [facility] Comment on above: Performed By: #### C BC #### [address] [id number] Platelets (Bld) [#/Vol] 268 10*3/uL Normal 150 - 450 [facility] Comment on above: Performed By: #### C BC #### [address] [id number] RBC 4.24 x10E12/L Normal 4.00 - 5.20 [facility] [place] Comment on above: Performed By: #### C BC #### [address] [id number] WBC (Bld) [#/Vol] 6.0 10*3/uL Normal 4.4 - 11.3 [facility] Comment on above: Performed By: #### C BC #### [address] [id number] COMPREHENSIVE PANELon 2021 Albumin [Mass/Vol] 4.2 g/dL Normal 3.4 - 5.0 [facility] Comment on above: Performed By: #### C MP #### [address] [id number] ALP [Catalytic activity/Vol] 71 U/L Normal 33 - 136 [facility] Comment on above: Performed By: #### C MP #### [address] [id number] ALT [Catalytic activity/Vol] 23 U/L Normal 7 - 45 [facility] Comment on above: Result Comment: Luanne ents treated with Sulfasalazine may generate falsely decreased results for ALT. Performed By: #### C MP #### [address] [id number] Anion gap [Moles/Vol] 13 mmol/L Normal 10 - 20 [facility] Comment on above: Performed By: #### C MP #### [address] [id number] AST [Catalytic activity/Vol] 24 U/L Normal 9 - 39 [facility] Comment on above: Performed By: #### C MP #### [address] [id number] Bilirubin [Mass/Vol] 0.4 mg/dL Normal 0.0 - 1.2 [facility] Comment on above: Performed By: #### C MP #### [address] [id number] Calcium [Mass/Vol] 9.4 mg/dL Normal 8.6 - 10.3 [facility] Comment on above: Performed By: #### C MP #### [address] [id number] Chloride [Moles/Vol] 106 mmol/L Normal 98 - 107 [facility] Comment on above: Performed By: #### C MP #### [address] [id number] Creatinine [Mass/Vol] 0.69 mg/dL Normal 0.50 - 1.05 [facility] Comment on above: Performed By: #### C MP #### [address] [id number] eGFR FEMALE >90 Normal >90 [facility] Comment on above: Result Comment: CALC ULATIONS OF ESTIMATED GFR ARE PERFORMED USING THE 2020 CKD-EPI STUDY REFIT EQUATION WITHOUT THE RACE VARIABLE FOR THE IDMS-TRACEABLE CREATININE METHODS. https://jasn.asnjournals.org/content///ASN.624730001 8 Performed By: #### C MP #### [address] [id number] Glucose [Mass/Vol] 79 mg/dL Normal 74 - 99 [facility] Comment on above: Performed By: #### C MP #### [address] [id number] HCO3 (Bld) [Moles/Vol] 25 mmol/L Normal 21 - 32 [facility] Comment on above: Performed By: #### C MP #### [address] [id number] Potassium [Moles/Vol] 4.1 mmol/L Normal 3.5 - 5.3 [facility] Comment on above: Performed By: #### C MP #### [address] [id number] Protein [Mass/Vol] 7.4 g/dL Normal 6.4 - 8.2 [facility] Comment on above: Performed By: #### C MP #### [address] [id number] Sodium [Moles/Vol] 140 mmol/L Normal 136 - 145 [facility] Comment on above: Performed By: #### C MP #### [address] [id number] Urea nitrogen [Mass/Vol] 12 mg/dL Normal 6 - 23 [facility] Comment on above: Performed By: #### C MP #### [address] [id number] LIPID PANEL (CORONARY RISK 2 )on 04-29-2022 Cholesterol [Mass/Vol] 198 mg/dL Normal 0 - 199 [facility] Comment on above: Result Comment: . AGE [...] dosing. Performed By: #### L IPID #### [address] [id number] Cholesterol in HDL [Mass/Vol] 89.0 mg/dL Normal [facility] Comment on above: Result Comment: . AGE VERY LOW LOW NORMAL HIGH 0-19 Y < 35 < 40 40-45 ---- 20-24 Y ---- < 40 >45 ---- >24 Y ---- < 40 40-60 >60 . Performed By: #### L IPID #### [address] [id number] Cholesterol in LDL [Mass/Vol] 87 mg/dL Normal 0 - 99 [facility] Comment on above: Result Comment: . NEAR BORD AGE DESIRABLE OPTIMAL HIGH HIGH VERY HIGH 0-19 Y 0 - 109 --- 110-129 >/= 130 ---- 20-24 Y 0 - 119 --- 120-159 >/= 160 ---- >24 Y 0 - 99 100-129 130-159 160-189 >/=190 . Performed By: #### L IPID #### [address] [id number] Cholesterol in VLDL [Mass/Vol] 22 mg/dL Normal 0 - 40 [facility] Comment on above: Performed By: #### L IPID #### [address] [id number] Cholesterol.total/ Cholesterol in HDL [Mass ratio] 2.2 {ratio} Normal [facility] Comment on above: Result Comment: REF VALUES DESIRABLE < 3.4 HIGH RISK > 5.0 Performed By: #### L IPID #### [address] [id number] Triglyceride [Mass/Vol] 109 mg/dL Normal 0 - 149 [facility] Comment on above: Result Comment: . AGE [...] dosing. Performed By: #### L IPID #### [address] [id number] Laboratory - Chemistry and C hemistry - challengeon 04-29-2022 Albumin BCP dye [Mass/Vol] 4.2 g/dL 3.4 - 5.0 ON-UFUU-Nsgh 2535A Work Phone: ALP [Catalytic activity/Vol] 71 U/L 33 - 136 BX-QQSY-Gfut 2535A Work Phone: ALT With P-5'-P [Catalytic activity/Vol] 23 U/L 7 - 45 CG-CDEY-Vhuc 2535A Work Phone: Comment on above: Patients treated wit h Sulfasalazine may generate falsely decreased results for ALT. Anion gap [Moles/Vol] 13 mmol/L 10 - 20 QU-RHHH-Lmhs Óscar5A Work Phone: AST With P-5'-P [Catalytic activity/Vol] 24 U/L 9 - 39 VW-XJXH-Jaxn 2535A Work Phone: Bilirubin [Mass/Vol] 0.4 mg/dL 0.0 - 1.2 EL-UTMT-Rvxs Guy Work Phone: Calcium [Mass/Vol] 9.4 mg/dL 8.6 - 10.3 MP-WSP C-Reading Guy Work Phone: Chloride [Moles/Vol] 106 mmol/L 98 - 107 ND-VLHP-Egej Óscar5A Work Phone: CO2 [Moles/Vol] 25 mmol/L 21 - 32 MP-WSPC-A onel Cantrell Work Phone: Creatinine [Mass/Vol] 0.69 mg/dL See Below VO-RKGC-Cyms 2535A Work Phone: Comment on above: Reference Range: 0.5 0 - 1.05 Glucose [Mass/Vol] 79 mg/dL 74 - 99 MP-WSP C-Laila 2535A Work Phone: Potassium [Moles/Vol] 4.1 mmol/L 3.5 - 5.3 GO-SYKW-Uspg 2535A Work Phone: Protein [Mass/Vol] 7.4 g/dL 6.4 - 8.2 MP-WSP C-Laila 2535A Work Phone: Sodium [Moles/Vol] 140 mmol/L 136 - 145 MP-WSP C-Laila Guy Work Phone: Urea nitrogen [Mass/Vol] 12 mg/dL 6 - 23 EJ-HQEV-Eblz 2535A Work Phone: Laboratory - Hematology and Cell countson 04-29-2022 Erythrocyte distribution width (RBC) [Ratio] 14.0 % See Below YW-IJBM-Kjbv 2535A Work Phone: Comment on above: Reference Range: 11. 5 - 14.5 Hematocrit (Bld) [Volume fraction] 41.0 % See Below PZ-LCRY-Nndq 253Jose Luis Work Phone: Comment on above: Reference Range: 36. 0 - 46.0 Hemoglobin (Bld) [Mass/Vol] 12.9 g/dL See Below CB-CCTL-Zdap Guy Work Phone: Comment on above: Reference Range: 12. 0 - 16.0 MCHC (RBC) [Mass/Vol] 31.5 g/dL below low threshold See Below GT-XJSG-Doyb Guy Work Phone: Comment on above: Reference Range: 32. 0 - 36.0 MCV (RBC) [Entitic vol] 97 fL 80 - 100 ZG-CLGH-Ykvw Óscar Work Phone: Platelets (Bld) [#/Vol] 268 10*3/uL 150 - 450 EY-FZGC-Szbc Guy Work Phone: RBC (Bld) [#/Vol] 4.24 {x10E12/L} See Below MP -WSPC-Laila 2535A Work Phone: Comment on above: Reference Range: 4.0 0 - 5.20 WBC (Bld) [#/Vol] 6.0 10*3/uL 4.4 - 11.3 MP-WSP C-Laila Work Phone: Lipid Panelon 04-29-2022 Cholesterol [Mass/Vol] 198 mg/dL 0 - 199 IY-AOYH-Bbdn 7813G Work Phone: Comment on above: . AGE [...] dosing. Cholesterol in HDL [Mass/Vol] 89.0 mg/dL GD-NLGF-Yubt 4015C Work Phone: Comment on above: . AGE VERY LOW LOW N ORMAL HIGH 0-19 Y < 35 < 40 40-45 ---- 20- 24 Y ---- < 40 >45 ---- >24 Y ---- < 40 40-60 >60. Cholesterol in LDL [Mass/Vol] 87 mg/dL 0 - 99 YZ-HGPY-Mbjr 2865L Work Phone: Comment on above: . NEAR BORD AGE CHERRIE RABLE OPTIMAL HIGH HIGH VERY HIGH 0-19 Y 0 - 109 --- 110-129 >/= 130 ---- 20-24 Y 0 - 119 --- 120-159 >/= 160 ---- >24 Y 0 - 99 100-129 130-159 160-189 >/=190. Cholesterol.total/ Cholesterol in HDL [Mass ratio] 2.2 {ratio} UW-KFSJ-Dxmo 5497M Work Phone: Comment on above: REF VALUESDESIRABLE < 3.4HIGH RISK > 5.0 Triglyceride [Mass/Vol] 109 mg/dL 0 - 149 PH-ZKIJ-Yaqe 9837V Work Phone: Comment on above: . AGE [...] Lipid Panel 22 mg/dL 0 - 40 [place] 2060N Work Phone: Medicare Annual Wellness Vis iton [...] Touchworks No Panel Informationon 04-29 >90 >90 [place] 6611N Work Phone: Comment on above: CALCULATIONS OF RYAN MATED GFR ARE PERFORMED USING THE 2020 CKD-EPI STUDY REFIT EQUATION WITHOUT THE RACE VARIABLE FOR THE IDMS-TRACEABLE CREATININE METHODS.https://jasn.asnjournals.org/content//ASN.2 508548446 TSHon 04-29-2022 TSH Qn 1.70 m[IU]/L Normal 0.44 - 3.98 [facility] Comment on above: Result Comment: TSH testing is performed using different testing methodology at [facility] than at other [facility]. Direct result comparisons should only be made within the same method. Performed By: #### T SH2 ####[facility] [place], [place] [id number] TSH - Thyroid Stimulating Ho liliana, Serumon 04-29-2022 TSH Qn 1.70 m[IU]/L See Below ZT-OWOL-Yhsm 0237G Work Phone: Comment on above: Reference Range: 0.4 4 - 3.98 TSH testing is performed using different testing methodology at [facility] than at other [facility]. Direct result comparisons should only be made within the same method. Tobacco Screening.on Adult depression screening assessment No YI-DDWP-Ultk 2535A Work Phone: Fall risk assessment b) One or more falls in the last year ME-SAQB-Cgiw 2535A Work Phone: Tobacco use status [facility] b) No YT-HVYJ-Jmci 2535A Work Phone: VITAMIN B12on 04-29-2022 Cobalamin (Vitamin B12) [Mass/Vol] 417 pg/mL Normal 211 - 911 [facility] Comment on above: Performed By: #### V TB12 ####[facility] [place], [place] [id number] VITAMIN D, 25-HYDROXYon VITAMIN D, 25-HYDROXY 31 ng/mL Normal [facility] Comment on above: Result Comment: . DEFICIENCY: < 20 NG/ML INSUFFICIENCY: 20-29 NG/ML SUFFICIENCY: 30-100 NG/ML THIS ASSAY ACCURATELY QUANTIFIES THE SUM OF VITAMIN D3, 25-HYDROXY AND VIT D2,25-HYDROXY. Performed By: #### V TDOH #### [address] [id number] Vitamin B12, Serumon Cobalamin (Vitamin B12) [Mass/Vol] 417 pg/mL 211 - 911 YM-XCCV-Gsfo 2536S Work Phone: Vitamin D 25-Hydroxyon 04-29 25-hydroxyvitamin D3 [Mass/Vol] 31 ng/mL JY-UPPL-Dxnm 2535A Work Phone: Comment on above: .DEFICIENCY: < 20 NG /MLINSUFFICIENCY: 20-29 NG/MLSUFFICIENCY: 30-100 NG/MLTHIS ASSAY ACCURATELY QUANTIFIES THE SUM OFVITAMIN D3, 25-HYDROXY AND VIT D2,25-HYDROXY. BASIC METABOLIC PANELon 03-28 Anion gap [Moles/Vol] 15 mmol/L Normal 10 - 20 [facility] Comment on above: Performed By: #### B MP #### [address] [id number] Calcium [Mass/Vol] 9.6 mg/dL Normal 8.6 - 10.3 [facility] Comment on above: Performed By: #### B MP #### [address] [id number] Chloride [Moles/Vol] 106 mmol/L Normal 98 - 107 [facility] Comment on above: Performed By: #### B MP #### [address] [id number] Creatinine [Mass/Vol] 0.80 mg/dL Normal 0.50 - 1.05 [facility] Comment on above: Performed By: #### B MP #### [address] [id number] GFR/1.73 sq M.predicted among non-blacks MDRD (S/P/Bld) [Vol rate/Area] 78 mL/min/{1.73_m2} Normal >90 [facility] Comment on above: Result Comment: CALC ULATIONS OF ESTIMATED GFR ARE PERFORMED USING THE 2020 CKD-EPI STUDY REFIT EQUATION WITHOUT THE RACE VARIABLE FOR THE IDMS-TRACEABLE CREATININE METHODS. https://jasn.asnjournals.org/content/early/ASN.989841247 8 Performed By: #### B MP #### [address] [id number] Glucose [Mass/Vol] 67 mg/dL Low 74 - 99 [facility] Comment on above: Performed By: #### B MP #### [address] [id number] HCO3 (Bld) [Moles/Vol] 22 mmol/L Normal 21 - 32 [facility] Comment on above: Performed By: #### B MP #### [address] [id number] Potassium [Moles/Vol] 3.6 mmol/L Normal 3.5 - 5.3 [facility] Comment on above: Performed By: #### B MP #### [address] [id number] Sodium [Moles/Vol] 139 mmol/L Normal 136 - 145 [facility] Comment on above: Performed By: #### B MP #### [address] [id number] Urea nitrogen [Mass/Vol] 17 mg/dL Normal 6 - 23 [facility] Comment on above: Performed By: #### B MP #### [address] [id number] CBCon 04-12-2022 Erythrocyte distribution width (RBC) [Ratio] 13.8 % Normal 11.5 - 14.5 [facility] Comment on above: Performed By: #### C BC #### [address] [id number] Hematocrit (Bld) [Volume fraction] 41.1 % Normal 36.0 - 46.0 [facility] Comment on above: Performed By: #### C BC #### [address] [id number] Hemoglobin (Bld) [Mass/Vol] 13.0 g/dL Normal 12.0 - 16.0 [facility] Comment on above: Performed By: #### C BC #### [address] [id number] MCHC (RBC) [Mass/Vol] 31.6 g/dL Low 32.0 - 36.0 [facility] Comment on above: Performed By: #### C BC #### [address] [id number] MCV (RBC) [Entitic vol] 97 fL Normal 80 - 100 [facility] Comment on above: Performed By: #### C BC #### [address] [id number] Platelets (Bld) [#/Vol] 287 10*3/uL Normal 150 - 450 [facility] Comment on above: Performed By: #### C BC #### [address] [id number] RBC 4.24 x10E12/L Normal 4.00 - 5.20 [facility] Comment on above: Performed By: #### C BC #### [address] [id number] WBC (Bld) [#/Vol] 5.9 10*3/uL Normal 4.4 - 11.3 [facility] Comment on above: Performed By: #### C BC #### [address] [id number] Laboratory - Chemistry and C hemistry - challengeon 04-12-2022 Anion gap [Moles/Vol] 15 mmol/L 10 - 20 KE-KHWX-Yrty 2535A Work Phone: Calcium [Mass/Vol] 9.6 mg/dL 8.6 - 10.3 MP-WSP C-Laila 2535A Work Phone: Chloride [Moles/Vol] 106 mmol/L 98 - 107 YY-OIJR-Rjox 2535A Work Phone: CO2 [Moles/Vol] 22 mmol/L 21 - 32 MP-WSPC-A von Work Phone: Creatinine [Mass/Vol] 0.80 mg/dL See Below JF-XZKO-Xjol 2535A Work Phone: Comment on above: Reference Range: 0.5 0 - 1.05 Glucose [Mass/Vol] 67 mg/dL below low threshold 74 - 99 NE-IQBI-Lvih 2535A Work Phone: Potassium [Moles/Vol] 3.6 mmol/L 3.5 - 5.3 TI-AVKG-Zfdv 2535A Work Phone: [phone] Sodium [Moles/Vol] 139 mmol/L 136 - 145 MP-WSP C-Reading 2535A Work Phone: Urea nitrogen [Mass/Vol] 17 mg/dL 6 - 23 ZD-TLWH-Ungc 2535A Work Phone: Laboratory - Hematology and Cell countson 04-12-2022 Erythrocyte distribution width (RBC) [Ratio] 13.8 % See Below ED-QOCQ-Alad 2535A Work Phone: Comment on above: Reference Range: 11. 5 - 14.5 Hematocrit (Bld) [Volume fraction] 41.1 % See Below GC-LNNH-Knnr 2535A Work Phone: Comment on above: Reference Range: 36. 0 - 46.0 Hemoglobin (Bld) [Mass/Vol] 13.0 g/dL See Below SB-EQBE-Vnaf 2535A Work Phone: Comment on above: Reference Range: 12. 0 - 16.0 MCHC (RBC) [Mass/Vol] 31.6 g/dL below low threshold See Below SE-XIQH-Lysh 2535A Work Phone: Comment on above: Reference Range: 32. 0 - 36.0 MCV (RBC) [Entitic vol] 97 fL 80 - 100 QU-DYGA-Ttix 2535A Work Phone: Platelets (Bld) [#/Vol] 287 10*3/uL 150 - 450 XF-SCOK-Mglj 2535A Work Phone: RBC (Bld) [#/Vol] 4.24 {x10E12/L} See Below MP Urakkamaailma.fiWSPC-Reading 2535A Work Phone: Comment on above: Reference Range: 4.0 0 - 5.20 WBC (Bld) [#/Vol] 5.9 10*3/uL 4.4 - 11.3 MP-WSP C-Laila 2535A Work Phone: No Panel Informationon 04-12 78 {mL/min/1.73m2} >90 MP-WSP C-Reading 2535A Work Phone: Comment on above: CALCULATIONS OF RYAN MATED GFR ARE PERFORMED USING THE 2020 CKD-EPI STUDY REFIT EQUATION WITHOUT THE RACE VARIABLE FOR THE IDMS-TRACEABLE CREATININE METHODS.https://jasn.asnjournals.org/content//ASN.2 659574842 Office Visit (Primary Care T xt/Forms)on 04-12-2022 Follow-up visit Diagnoses/Problems Assessed Encounter for immunization (V03.89) (Z23) Finger swelling (729.81) (M79.89) Orders Encounter for immunization Administered: Fluzone High-Dose Quadrivalent 0.7 ML Intramuscular Suspension Prefilled Syringe Finger swelling Start: methylPREDNISolone 4 MG Oral Tablet Therapy Pack (Medrol); USE DIRECTED Basic Metabolic Panel; Status:Complete; Done: [id number] 12:16PM Complete Blood Count; Status:Complete; Done: 85Oop7890 12:16PM Sedimentation Rate, Erythrocyte; Status:Complete; Done: 98Uqu0615 12:16PM Uric Acid, Serum; Status:Complete; Done: 27Pxn3508 12:16PM Xray Finger(s) Min 2 View; Status:Hold For - Scheduling; Requested for:77Grx2449; Laterality : Left Radiologist to Determine Optimal [...] tabs PO QHS. Vitamin D 50 MCG (2000 UT) Oral TabletTAKE 1 CAPSULE BY MOUTH DAILY. Allergies Medication Codeine Derivatives Tylenol NonMedication Gordo mold Mold Vitals Vital Signs Recorded: 73Ihf4749 11:45AM Temperature: 98.2 F Heart Rate: 72 Respiration: 18 Systolic: 126 Diastolic: 80 Weight: 167 lb (more content not included)... Normal Touchworks SEDIMENTATION RATE, ERYTHROC YTEon 04-12-2022 SEDIMENTATION RATE, ERYTHROCYTE 9 mm/h Normal 0 - 30 [facility] Comment on above: Result Comment: Karis tatum note new reference ranges as of 12/03/2021. Ran on alternate instrument Reference Ranges: Males: 0-15 Females: 0-20 Children under 18: 0-10 Performed By: #### E SRWS #### [address] [id number] Sedimentation Rate, Erythroc yteon 04-12-2022 ESR (Bld) [Velocity] 9 mm/h 0 - 30 RO-LOTT-Dobo 2535A Work Phone: Comment on above: Please note new refe rence ranges as of 12/03/2021.Ran on alternate instrumentReference Ranges: Males: 0-15 Females: 0-20 Children under 18: 0-10 Tobacco Screening.on 022 Fall risk assessment b) One or more falls in the last year MO-WJLA-Qwuy 2535A Work Phone: Tobacco use status [facility] b) No CM-TXPJ-Cmre 2535A Work Phone: URIC ACIDon 04-12-2022 Urate [Mass/Vol] 4.2 mg/dL Normal 2.3 - 6.7 [facility] Comment on above: Result Comment: Rachael puncture immediately after or during the administration of Metamizole may lead to falsely low results. Testing should be performed immediately prior to Metamizole dosing. Performed By: #### U AILYN #### [address] [id number] Uric Acid, Serumon Urate [Mass/Vol] 4.2 mg/dL 2.3 - 6.7 MP-WSPC- Reading 2535A Work Phone: Comment on above: Venipuncture immedia tely after or during the administration of Metamizole may lead to falsely low results. Testing should be performed immediately prior to Metamizole dosing. DIGITAL MAMM SCREENING W/ TO Taylor 11-20-2021 DIGITAL MAMM SCREENING W/ CLAUDIA Patient Name: BRIGITTE HIGH STUDY: DIGITAL MAMM SCREENING W/ CLAUDIA; 11/20/2021 12:37 pm ACCESSION NUMBER(S): [id number] ORDERING CLINICIAN: JING CAMPBELL INDICATION: Right breast [...] any future breast imaging appointments, please call [phone] ([phone]). Electronically signed by: BUCK HIGUERA MD Normal [facility] Mamm - Screening Mammogram w / Tomosynthesison 11-20-2021 MG Breast Screening Normal [facility] Work Phone: No Panel Informationon 11-20 Please click on the link to view the study images Normal [facility] Work Phone: Normal KW-FRQV-Oity 6S Work Phone: SPINE, LUMBOSACRAL MIN 4 VIE WSon 11-20-2021 SPINE, LUMBOSACRAL MIN 4 VIEWS Patient Name: BRIGITTE HIGH STUDY: Lumbar Spine, 5 views. INDICATION: lbp M54.9: Back pain. COMPARISON: 07/15/2020. ACCESSION NUMBER(S): [id number] ORDERING CLINICIAN: JING CAMPBELL FINDINGS: Moderate levoscoliosis centered in the mid lumbar region. Grade 1 L5-S1 anterolisthesis noted. Moderate spondylosis at L2-3 with disc height loss and endplate sclerosis. Mild spondylosis at L3-4. Qvhe-bd-cdnsorky facet joint degenerative changes throughout the lumbar spine. No spondylolysis on the oblique views. Atherosclerosis of the abdominal aorta noted Vertebral body heights are preserved. Posterior elements are intact. IMPRESSION: 1. Moderate levoscoliosis with lumbar spine degenerative changes as described above that are most pronounced at L2-3 and L3-4. 2. Grade 1 L5-S1 anterolisthesis. Electronically signed by: POORNIMA MONTERO MD Normal [facility] Tobacco Screening.on Last menstrual period start date hysterectomy [facility] Work Phone: Tobacco use status [facility] b) No [facility] Work Phone: CHEST 2 VIEW PA AND LATon CHEST 2 VIEW PA AND LAT Patient Name: BRIGITTE HIGH STUDY: TH CHEST 2 VIEW PA AND LAT; INDICATION: pain. Cough. History of breast cancer and history of smoking. COMPARISON: 07/27/2020 ACCESSION NUMBER(S): [id number] ORDERING CLINICIAN: JING CAMPBELL FINDINGS: The cardiac [...] Electronically signed by: POORNIMA MONTERO MD Normal [facility] Cult, Urineon 04-04-2021 Bacteria identified Cx Nom (U) DK-ZLPO-Kuox 2535A Work Phone: Laboratory - Chemistry and C hemistry - challengeon 04-04-2021 Albumin BCP dye [Mass/Vol] 4.2 g/dL 3.4 - 5.0 ET-FVRO-Srqy 2535A Work Phone: ALP [Catalytic activity/Vol] 81 U/L 33 - 136 ZG-CTOW-Urox 2535A Work Phone: ALT With P-5'-P [Catalytic activity/Vol] 24 U/L 7 - 45 YC-IFHF-Odwp 2535A Work Phone: Comment on above: Patients treated wit h Sulfasalazine may generate falsely decreased results for ALT. Anion gap [Moles/Vol] 12 mmol/L 10 - 20 CY-LWGD-Rlba 2535A Work Phone: AST With P-5'-P [Catalytic activity/Vol] 22 U/L 9 - 39 HN-IJFB-Pkwz 2535A Work Phone: Bilirubin [Mass/Vol] 0.4 mg/dL 0.0 - 1.2 EQ-LGIC-Ipyd 2535A Work Phone: Calcium [Mass/Vol] 9.6 mg/dL 8.6 - 10.3 MP-WSP C-Laila Óscar Work Phone: Chloride [Moles/Vol] 107 mmol/L 98 - 107 KJ-DGEO-Gzxs Óscar5A Work Phone: CO2 [Moles/Vol] 26 mmol/L 21 - 32 MP-WSPC-A onel Cantrell Work Phone: Creatinine [Mass/Vol] 0.65 mg/dL See Below LV-RAUC-Ewcx 2535A Work Phone: Comment on above: Reference Range: 0.5 0 - 1.05 Glucose [Mass/Vol] 89 mg/dL 74 - 99 MP-WSP C-Reading Óscar5A Work Phone: Potassium [Moles/Vol] 4.7 mmol/L 3.5 - 5.3 UE-DRNX-Fwkw 2535A Work Phone: Protein [Mass/Vol] 7.2 g/dL 6.4 - 8.2 MP-WSP C-Reading 2535A Work Phone: Sodium [Moles/Vol] 140 mmol/L 136 - 145 MP-WSP C-Reading 2535A Work Phone: Urea nitrogen [Mass/Vol] 12 mg/dL 6 - 23 EV-KNQQ-Ahya 2535A Work Phone: Laboratory - Hematology and Cell countson 04-04-2021 Erythrocyte distribution width (RBC) [Ratio] 13.8 % See Below QA-BRBZ-Kxne 2535A Work Phone: Comment on above: Reference Range: 11. 5 - 14.5 Hematocrit (Bld) [Volume fraction] 41.7 % See Below DT-CRGI-Xygi 2535A Work Phone: Comment on above: Reference Range: 36. 0 - 46.0 Hemoglobin (Bld) [Mass/Vol] 13.2 g/dL See Below EX-VGJC-Jzkk 253Jose Luis Work Phone: Comment on above: Reference Range: 12. 0 - 16.0 MCHC (RBC) [Mass/Vol] 31.7 g/dL below low threshold See Below PE-UHTE-Rwfo 2535A Work Phone: Comment on above: Reference Range: 32. 0 - 36.0 MCV (RBC) [Entitic vol] 98 fL 80 - 100 RP-ZUQY-Tahy 253Jose Luis Work Phone: Platelets (Bld) [#/Vol] 247 10*3/uL 150 - 450 AU-KPGN-Fmsx 2535A Work Phone: RBC (Bld) [#/Vol] 4.26 {x10E12/L} See Below MP -WSPC-Laila 2535A Work Phone: Comment on above: Reference Range: 4.0 0 - 5.20 WBC (Bld) [#/Vol] 4.7 10*3/uL 4.4 - 11.3 MP-WSP C-Laila 2535A Work Phone: Lipid Panelon 04-04-2021 Cholesterol [Mass/Vol] 206 mg/dL above high threshold 0 - 199 QG-RJJU-Cnbc 2535A Work Phone: Comment on above: . [...] dosing. Cholesterol in HDL [Mass/Vol] 79.0 mg/dL NB-QYXP-Fmni 8508R Work Phone: Comment on above: . AGE VERY LOW LOW N ORMAL HIGH 0-19 Y < 35 < 40 40-45 ---- 20- 24 Y ---- < 40 >45 ---- >24 Y ---- < 40 40-60 >60. Cholesterol in LDL [Mass/Vol] 95 mg/dL 0 - 99 JD-LJZH-Bixs 5794N Work Phone: Comment on above: . NEAR BORD AGE CHERRIE RABLE OPTIMAL HIGH HIGH VERY HIGH 0-19 Y 0 - 109 --- 110-129 >/= 130 ---- 20-24 Y 0 - 119 --- 120-159 >/= 160 ---- >24 Y 0 - 99 100-129 130-159 160-189 >/=190. Cholesterol.total/ Cholesterol in HDL [Mass ratio] 2.6 {ratio} OX-TPDP-Kjgj 1046J Work Phone: Comment on above: REF VALUESDESIRABLE < 3.4HIGH RISK > 5.0 Triglyceride [Mass/Vol] 161 mg/dL above high threshold 0 - 149 IQ-RSKX-Fyvg 8913H Work Phone: Comment on above: . AGE [...] Lipid Panel 32 mg/dL 0 - 40 PW-XVOT-Mkuq 2535A Work Phone: No Panel Informationon 04-04 >60 >60 ZF-EWHH-Gftt 2535A Work Phone: Comment on above: CALCULATIONS OF RYAN MATED GFR ARE PERFORMED USING THE MDRD STUDY EQUATION FOR THE IDMS-TRACEABLE CREATININE METHODS. CLIN CHEM 2007;53:766-72 Radiologyon 04-04-2021 XR Chest 2 Views Normal MP-WSPC- Reading Work Phone: Urinalysison 04-04-2021 Color (U) YELLOW See Below UT-SQVK-Jbgk Work Phone: Comment on above: Reference Range: STR AW,YELLOW Glucose Ql (U) Negative NEGATIVE MP-WSPC-Av on Work Phone: Ketones Ql (U) Negative NEGATIVE MP-WSPC-Av on Work Phone: Leukocyte esterase Test strip Ql (U) LARGE (3+) Abnormal NEGATIVE WP-AJHM-Rrol Work Phone: pH (U) 5.0 [pH] 5.0 - 8.0 OE-SHMG-Sfda Work Phone: Protein (U) [Mass/Vol] Negative NEGATIVE AP-WQUK-Xlmv Work Phone: RBC (U) [#/Vol] Negative NEGATIVE MP-WSPC-A von Work Phone: Specific gravity (U) [Rel density] 1.016 1 See Below YY-YEOJ-Muud 8P Work Phone: Comment on above: Reference Range: 1.0 05 - 1.035 Urinalysis Negative NEGATIVE NX-OVQJ-Fllh 2534Z Work Phone: Urinalysis <2.0 0.0 - 1.9 NI-CTWT-Vikn 2532M Work Phone: Urinalysis CLEAR CLEAR QS-HYPD-Ncsb 2535A Work Phone: Urinalysis, Microscopicon Urinalysis, Microscopic <1 0-5 VN-ANRF-Bysb 2536B Work Phone: Urinalysis, Microscopic 1 {/HPF} 0-5 XQ-NDIS-Vvma 2539L Work Phone: Vitamin D 25-Hydroxyon 04-04 25-hydroxyvitamin D3 [Mass/Vol] 34 ng/mL ZC-OCSY-Vulw 6N Work Phone: Comment on above: .DEFICIENCY: < 20 NG /MLINSUFFICIENCY: 20-29 NG/MLSUFFICIENCY: 30-100 NG/MLTHIS ASSAY ACCURATELY QUANTIFIES THE SUM OFVITAMIN D3, 25-HYDROXY AND VIT D2,25-HYDROXY. BILATERAL KNEE 3 VIEWSon BILATERAL KNEE 3 VIEWS Patient Name: BRIGITTE HIGH STUDY: BILATERAL KNEE; 3 VIEWS; 02/20/2021 12:06 pm INDICATION: right lateral knee pain. COMPARISON: None. ACCESSION NUMBER(S): [id number] ORDERING CLINICIAN: JING CAMPBELL FINDINGS: Bilateral knees, three views of each Mild tricompartmental osteophytosis bilaterally. There is no joint space narrowing. There is no effusion. No fracture seen IMPRESSION: Mild degenerative changes with osteophyte formation Electronically signed by: RIKY MCDOONUGH MD [facility] C Reactive Protein, Serumon 02-20-2021 CRP [Mass/Vol] 0.59 mg/dL MP-WSPC-Av on [id number] Work Phone: Comment on above: REF VALUE< 1.00 Citrulline Antibodyon 2020 Cyclic citrullinated peptide IgG Qn <1 NK-SRLT-Sury 2535A Work Phone: Comment on above: THE TEST [...] dye [Mass/Vol] 4.3 g/dL 3.4 - 5.0 JG-HHFF-Opxb 2534D Work Phone: ALP [Catalytic activity/Vol] 70 U/L 33 - 136 JC-IRGD-Bqua 2535H Work Phone: ALT With P-5'-P [Catalytic activity/Vol] 23 U/L 7 - 45 GI-NHJM-Fwut 2535N Work Phone: Comment on above: Patients treated wit h Sulfasalazine may generate falsely decreased results for ALT. Anion gap [Moles/Vol] 13 mmol/L 10 - 20 FG-FNQI-Txgh 2530Z Work Phone: AST With P-5'-P [Catalytic activity/Vol] 27 U/L 9 - 39 FI-CBQZ-Efrz 2535A Work Phone: Bilirubin [Mass/Vol] 0.5 mg/dL 0.0 - 1.2 NQ-XJWW-Zmrt 2535A Work Phone: Calcium [Mass/Vol] 9.6 mg/dL 8.6 - 10.3 MP-WSP C-Laila 1A Work Phone: Chloride [Moles/Vol] 107 mmol/L 98 - 107 IW-GDGW-Qnvc 2535A Work Phone: CO2 [Moles/Vol] 23 mmol/L 21 - 32 MP-WSPC-A von Óscar5A Work Phone: Creatinine [Mass/Vol] 0.71 mg/dL See Below NL-TMKD-Mjkt 2535A Work Phone: Comment on above: Reference Range: 0.5 0 - 1.05 Glucose [Mass/Vol] 82 mg/dL 74 - 99 MP-WSP C-Laila Óscar Work Phone: Potassium [Moles/Vol] 4.2 mmol/L 3.5 - 5.3 SJ-VOZZ-Ugvd Óscar5A Work Phone: Protein [Mass/Vol] 7.2 g/dL 6.4 - 8.2 MP-WSP C-Laila Guy Work Phone: Sodium [Moles/Vol] 139 mmol/L 136 - 145 MP-WSP C-Laila Guy Work Phone: Urea nitrogen [Mass/Vol] 18 mg/dL 6 - 23 ML-VHDN-Aayr Guy Work Phone: Laboratory - Hematology and Cell countson 02-20-2021 Erythrocyte distribution width (RBC) [Ratio] 14.3 % See Below OW-HKUY-Nmsc 2535A Work Phone: Comment on above: Reference Range: 11. 5 - 14.5 Hematocrit (Bld) [Volume fraction] 41.3 % See Below IH-OSPP-Luux Óscar5A Work Phone: Comment on above: Reference Range: 36. 0 - 46.0 Hemoglobin (Bld) [Mass/Vol] 13.0 g/dL See Below NL-FJOK-Twwj 2535A Work Phone: Comment on above: Reference Range: 12. 0 - 16.0 MCHC (RBC) [Mass/Vol] 31.5 g/dL below low threshold See Below OI-VBYW-Cjfa 2535A Work Phone: Comment on above: Reference Range: 32. 0 - 36.0 MCV (RBC) [Entitic vol] 100 fL 80 - 100 RZ-XSCH-Rdqx 2535A Work Phone: Platelets (Bld) [#/Vol] 261 10*3/uL 150 - 450 OY-QEFJ-Vtme 2535A Work Phone: RBC (Bld) [#/Vol] 4.13 {x10E12/L} See Below MP -WSPC-Laila 2535A Work Phone: Comment on above: Reference Range: 4.0 0 - 5.20 WBC (Bld) [#/Vol] 6.0 10*3/uL 4.4 - 11.3 MP-WSP C-Laila 253Jose Luis Work Phone: Laboratory - Serology - non- microon 02-20-2021 Nuclear Ab Hep2 substrate Ql (S) Negative NEGATIVE GY-KXFG-Nxqu 253Jose Luis Work Phone: Comment on above: The Antinuclear Anti body (JACOB) test was performed using indirect immunofluorescence assay with HEp-2 cells slide. No Panel Informationon 02-20 >60 >60 OF-JLDJ-Owdy 2535A Work Phone: Comment on above: CALCULATIONS OF RYAN MATED GFR ARE PERFORMED USING THE MDRD STUDY EQUATION FOR THE IDMS-TRACEABLE CREATININE METHODS. CLIN CHEM 2007;53:766-72 Radiologyon 02-20-2021 XR Knee - bilateral 3 Views Normal AW-LWAX-Jjck 2535A Work Phone: XR Knee - bilateral 3 Views Please click on the link to view the study images Normal PP-GTRS-Ztvr 2535A Work Phone: Rheumatoid Factor, Serum or Plasmaon 02-20-2021 Rheumatoid factor Nephelometry Qn (S) <10 0 - 15 TH-AWMB-Pjkh 2535A Work Phone: Sedimentation Rate, Erythroc yteon 02-20-2021 ESR (Bld) [Velocity] 8 mm/h 0 - 20 PC-LEDI-Rmuo 1652C Work Phone: TSH - Thyroid Stimulating Ho rmone, Serumon 02-20-2021 TSH Qn 2.66 m[IU]/L See Below WS-POTU-Oylc 4240I Work Phone: Comment on above: Reference Range: 0.4 4 - 3.98 TSH testing is performed using different testing methodology at [facility] than at other [facility]. Direct result comparisons should only be made within the same method. Uric Acid, Serumon 1 Urate [Mass/Vol] 4.5 mg/dL 2.3 - 6.7 ViViFi-Thoughtful Movers3T Work Phone: Comment on above: Venipuncture immedia tely after or during the administration of Metamizole may lead to falsely low results. Testing should be performed immediately prior to Metamizole dosing. Vitamin B12, Serumon 021 Cobalamin (Vitamin B12) [Mass/Vol] 306 pg/mL 211 - 911 JD-CGGM-Ogvi 0394U Work Phone: CA27.29 (CA15-3)on 1 Cancer Ag 27-29 Qn 44.7 [arb'U]/mL above high threshold 0.0 - 38.6 [place] 0833S Work Phone: Comment on above: CA 27.29 testing is performed by chemiluminescent immunoassay using the [employer]. Values obtained with different analytic methods cannot [...] WBC (Bld) 0.5 % 0.0 - 2.0 [place] 5991M Work Phone: Erythrocyte distribution width (RBC) [Ratio] 14.1 % See Below YZ-QRFQ-Joru 2535A Work Phone: Comment on above: Reference Range: 11. 5 - 14.5 Hematocrit (Bld) [Volume fraction] 36.1 % See Below IS-RUZH-Mjpq 2535A Work Phone: Comment on above: Reference Range: 36. 0 - 46.0 Hemoglobin (Bld) [Mass/Vol] 11.9 g/dL below low threshold See Below XU-SCXP-Mgwn 2535A Work Phone: Comment on above: Reference Range: 12. 0 - 16.0 Lymphocytes/100 WBC (Bld) 39.4 % See Below GG-UQNU-Hbrd 2535A Work Phone: Comment on above: Reference Range: 13. 0 - 44.0 MCHC (RBC) [Mass/Vol] 33.0 g/dL See Below WD-GEJG-Xkdy 253Jose Luis Work Phone: Comment on above: Reference Range: 32. 0 - 36.0 MCV (RBC) [Entitic vol] 95 fL 80 - 100 UQ-HHXA-Ualx Guy Work Phone: Monocytes/100 WBC (Bld) 7.5 % 2.0 - 10.0 ZA-YCFJ-Thlm 2535A Work Phone: Neutrophils/100 WBC (Bld) 50.1 % See Below IH-TEBD-Laoo 2535A Work Phone: Comment on above: Reference Range: 40. 0 - 80.0 Platelets (Bld) [#/Vol] 225 10*3/uL 150 - 450 UD-OCJU-Kmnj 2535A Work Phone: RBC (Bld) [#/Vol] 3.80 {x10E12/L} below low threshold See Below BO-SHZG-Lyau 2535A Work Phone: Comment on above: Reference Range: 4.0 0 - 5.20 WBC (Bld) [#/Vol] 4.0 10*3/uL below low threshold 4.4 - 11.3 XI-QOEL-Hwyz Guy Work Phone: Complete Blood Count + Differential 0.02 {x10E9/L} See Below NZ-PBPA-Yflw Guy Work Phone: Comment on above: Reference Range: 0.0 0 - 0.10 Complete Blood Count + Differential 0.10 {x10E9/L} See Below AC-BHZQ-Zppb Guy Work Phone: Comment on above: Reference Range: 0.0 0 - 0.40 Complete Blood Count + Differential 0.30 {x10E9/L} See Below NG-DDTR-Imhm Guy Work Phone: Comment on above: Reference Range: 0.0 5 - 0.80 Complete Blood Count + Differential 1.57 {x10E9/L} See Below VH-EVQS-Mkcg Guy Work Phone: Comment on above: Reference Range: 0.8 0 - 3.00 Complete Blood Count + Differential 1.99 {x10E9/L} See Below HW-GCRR-Lxzq Guy Work Phone: Comment on above: Reference Range: 1.6 0 - 5.50 Complete Blood Count + Differential 2.5 % 0.0 - 6.0 DU-TMXK-Rjys Guy Work Phone: Complete Blood Count + Differential 0.0 % 0.0 - 0.9 HG-WTAT-Bxfu Guy Work Phone: Comment on above: Immature Granulocyte Count (IG) includes promyelocytes, myelocytes and metamyelocytes but does not include bands. Percent differential counts (%) should be interpreted in the context of the absolute cell counts (cells/L). Laboratory - Chemistry and C hemistry - challengeon 12-26-2020 Albumin BCP dye [Mass/Vol] 4.4 g/dL 3.4 - 5.0 HQ-LRNM-Bvsu Guy Work Phone: ALP [Catalytic activity/Vol] 66 U/L 33 - 136 GA-TYWO-Wpvw 2535A Work Phone: ALT With P-5'-P [Catalytic activity/Vol] 18 U/L 7 - 45 KQ-RBRL-Svcq 2535A Work Phone: Comment on above: Patients treated wit h Sulfasalazine may generate falsely decreased results for ALT. Anion gap [Moles/Vol] 10 mmol/L 10 - 20 OO-UHBJ-Rwod 2535A Work Phone: AST With P-5'-P [Catalytic activity/Vol] 19 U/L 9 - 39 BD-HKXD-Iawe 2535A Work Phone: Bilirubin [Mass/Vol] 0.5 mg/dL 0.0 - 1.2 HU-EYOI-Epru 2535A Work Phone: Calcium [Mass/Vol] 9.6 mg/dL 8.6 - 10.3 MP-WSP C-Laila Guy Work Phone: Chloride [Moles/Vol] 108 mmol/L above high threshold 98 - 107 HW-ZXVZ-Duex Óscar5A Work Phone: CO2 [Moles/Vol] 25 mmol/L 21 - 32 MP-WSPC-A onel Tovar Work Phone: Creatinine [Mass/Vol] 0.70 mg/dL See Below XL-XCBN-Iqsk 2535A Work Phone: Comment on above: Reference Range: 0.5 0 - 1.05 Glucose [Mass/Vol] 108 mg/dL above high threshold 74 - 99 IE-MSQM-Wwmy 2535A Work Phone: Potassium [Moles/Vol] 3.7 mmol/L 3.5 - 5.3 RD-CYIS-Zotj 2535A Work Phone: Protein [Mass/Vol] 7.1 g/dL 6.4 - 8.2 MP-WSP C-Laila 2535A Work Phone: Sodium [Moles/Vol] 139 mmol/L 136 - 145 MP-WSP C-Laila 7455I Work Phone: Urea nitrogen [Mass/Vol] 16 mg/dL 6 - 23 FN-SQSC-Xiff 2537B Work Phone: No Panel Informationon 12-26 >60 >60 LR-QNTH-Cyho 2535A Work Phone: Comment on above: CALCULATIONS OF RYAN MATED GFR ARE PERFORMED USING THE MDRD STUDY EQUATION FOR THE IDMS-TRACEABLE CREATININE METHODS. CLIN CHEM 2007;53:766-72 Mamm - Screening Mammogram w / Tomosynthesison 07-15-2020 MG Breast screening Interpreted by: BAILEE HUDSON09/17/19 08:23MRN: [id number] Name: BRIGITTE HIGH STUDY:DIGITAL SCREENING RIGHT-SIDED MAMMOGRAM [...] signed by: BAILEE HUTSON 07/17/20 08:23 Normal EK-RMYA-Javx 5416D Work Phone: Comment on above: ORDER REVISED TO A D IGITAL MAMM SCREENING W/ CLAUDIA BY RADIOLOGIST; Original Order Number: [id number] Otheron 07-15-2020 XR Cervical spine 3 views Interpreted by: YASMINE GIRON07/17/20 10:01MRN: [id number] Name: BRIGITTE HIGH STUDY:SPINE, CERVICAL, 2 OR [...] signed by: YASMINE GIRON 07/17/20 10:01 Normal [place] 1725Q Work Phone: XR Lumbar spine AP and lateral Interpreted by: YASMINE GIRON07/17/20 10:02MRN: [id number] Name: BRIGITTE HIGH STUDY:SPINE, LUMBOSACRAL; 2 OR [...] signed by: YASMINE GIRON 07/17/20 10:02 Normal [place] 2535A Work Phone: KNEES BOTH STANDINGon 2017 KNEES BOTH STANDING DATE OF EXAM: May 07 2018 1:48PM CLINICAL HISTORY/ Patient Name: AYLINSANDEEP BRIGITTE STUDY: KNEES BOTH STANDING; 05/07/2018 1:48 pm INDICATION: cervical radiculopathy, bilat knee pain. COMPARISON: None. ACCESSION NUMBER(S): [id number] ORDERING CLINICIAN: JING CAMPBELL FINDINGS: No fracture or dislocation of either knee. Moderate joint space narrowing. Tiny patellar osteophytes. CONCLUSION: IMPRESSION: Moderate degenerative changes of the knees. Normal [facility] SPINE C MIN 4 VIEWSon 2017 SPINE C MIN 4 VIEWS DATE OF EXAM: May 07 2018 1:48PM CLINICAL HISTORY/ Patient Name: BRIGITTE HIGH STUDY: SPINE C MIN 4 VIEWS; 05/07/2018 1:48 pm INDICATION: cervical radiculopathy, bilat knee pain. COMPARISON: None. ACCESSION NUMBER(S): [id number] ORDERING CLINICIAN: JING CAMPBELL FINDINGS: Anterior metallic [...] Degenerative changes of the cervical spine. Normal [facility] LUMBAR SP WO CONTRASTon 09-26 LUMBAR SP WO CONTRAST STUDY:LUMBAR SP WO CONTRAST; 10/18/2017 8:10 amINDICATION:LUMBAR RADICULOPATHY (M54.16).COMPARISON:04/29ACCESSION NUMBER(S):[id number] RDERING CLINICIAN:Jing CampbellTECHNIQUE:Sagittal and axial T1 and [...] to theright at L3-4 and L4-5.Interpreted within [facility], [place] Normal [facility] Vital Signs Date Time Vital Sign Value Performing Clinician Facility 11-23-2024 14:10-0400 Body weight 74.3 kg Scioderm Work Phone: [facility] 11-23-2024 14:10-0400 Diastolic blood pressure 66 mm[Hg] Danielito Carmen DO Work Phone: [facility] 11-23-2024 14:10-0400 Systolic blood pressure 112 mm[Hg] Danielito Carmen DO Work Phone: [facility] 11-18-2024 08:43-0400 Body height 165.1 cm Lexx Diop MD Work Phone: [facility] 11-18-2024 08:43-0400 Body mass index (BMI) [Ratio] 26.63 kg/m2 Lexx Diop MD Work Phone: [facility] 11-18-2024 08:43-0400 Body temperature 97.11 [degF] Lexx Diop MD Work Phone: [facility] 11-18-2024 08:43-0400 Body weight 72.58 kg Lexx Diop MD Work Phone: [facility] 11-18-2024 08:43-0400 Diastolic blood pressure 88 mm[Hg] Lexx Diop MD Work Phone: [facility] 11-18-2024 08:43-0400 Heart rate 68 /min Lexx Diop MD Work Phone: [facility] 11-18-2024 08:43-0400 SaO2% (BldA) [Mass fraction] 96 % Lexx Diop MD Work Phone: [facility] 11-18-2024 08:43-0400 Systolic blood pressure 138 mm[Hg] Lexx Diop MD Work Phone: [facility] 10-21-2024 09:15-0400 Body height 165.1 cm Lexx Diop MD Work Phone: [facility] 10-21-2024 09:15-0400 Body mass index (BMI) [Ratio] 26.96 kg/m2 Lexx Diop MD Work Phone: [facility] 10-21-2024 09:15-0400 Body temperature 97.2 [degF] Lexx Diop MD Work Phone: [facility] 10-21-2024 09:15-0400 Body weight 73.48 kg Lexx Diop MD Work Phone: [facility] 10-21-2024 09:15-0400 Diastolic blood pressure 76 mm[Hg] Lexx Diop MD Work Phone: [facility] 10-21-2024 09:15-0400 Heart rate 86 /min Lexx Diop MD Work Phone: [facility] 10-21-2024 09:15-0400 SaO2% (BldA) [Mass fraction] 97 % Lexx Diop MD Work Phone: [facility] 10-21-2024 09:15-0400 Systolic blood pressure 122 mm[Hg] Lexx Diop MD Work Phone: [facility] 09-21-2024 10:35-0500 Body height 165.1 cm Christi Jones APRN.CNP Work Phone: [facility] 09-21-2024 10:35-0500 Body mass index (BMI) [Ratio] 27.36 kg/m2 Christi Karen SHAREPOINT DEVELOPER.ORDER TRACER Work Phone: [facility] 09-21-2024 10:35-0500 Body weight 74.57 kg Christi Karen SHAREPOINT DEVELOPER.ORDER TRACER Work Phone: [facility] 09-21-2024 10:35-0500 Diastolic blood pressure 86 mm[Hg] Christi Karen SHAREPOINT DEVELOPER.ORDER TRACER Work Phone: [facility] 09-21-2024 10:35-0500 Heart rate 67 /min Christi Karen SHAREPOINT DEVELOPER.ORDER TRACER Work Phone: [facility] 09-21-2024 10:35-0500 Systolic blood pressure 135 mm[Hg] Christi Karen SHAREPOINT DEVELOPER.ORDER TRACER Work Phone: [facility] 01-16-2024 10:23-0400 Body mass index (BMI) [Ratio] 26.89 kg/m2 Carlito Horvath MD Work Phone: [facility] 01-16-2024 10:23-0400 Body temperature 97.9 [degF] Carlito Horvath MD Work Phone: [facility] 01-16-2024 10:23-0400 Body weight 73.3 kg Carlito Horvath MD Work Phone: [facility] 01-16-2024 10:23-0400 Diastolic blood pressure 87 mm[Hg] Carlito Horvath MD Work Phone: [facility] 01-16-2024 10:23-0400 Heart rate 70 /min Carlito Horvath MD Work Phone: [facility] 01-16-2024 10:23-0400 Respiratory rate 16 /min Carlito Horvath MD Work Phone: [facility] 01-16-2024 10:23-0400 SaO2% (BldA) [Mass fraction] 96 % Carlito Horvath MD Work Phone: [facility] 01-16-2024 10:23-0400 Systolic blood pressure 137 mm[Hg] Carlito Horvath MD Work Phone: [facility] 12-21-2023 09:57-0400 Body height 165.1 cm MD Star Recinos Work Phone: [facility] 12-21-2023 09:57-0400 Body mass index (BMI) [Ratio] 26.8 kg/m2 MD Star Recinos Work Phone: [facility] 12-21-2023 09:57-0400 Body temperature 97.8 [degF] MD Star Recinos Work Phone: [facility] 12-21-2023 09:57-0400 Body weight 73.02 kg MD Star Recinos Work Phone: [facility] 12-21-2023 09:57-0400 Diastolic blood pressure 70 mm[Hg] MD Star Recinos Work Phone: [facility] 12-21-2023 09:57-0400 Heart rate 77 /min MD Star Recinos Work Phone: [facility] 12-21-2023 09:57-0400 Respiratory rate 16 /min MD Star Recinos Work Phone: [facility] 12-21-2023 09:57-0400 SaO2% (BldA) [Mass fraction] 98 % MD Star Recinos Work Phone: [facility] 12-21-2023 09:57-0400 Systolic blood pressure 112 mm[Hg] MD Star Recinos Work Phone: [facility] 08-25-2023 11:36-0500 Blood Pressure Location Star RECINOS [facility] 08-25-2023 11:36-0500 Diastolic blood pressure 84 mm[Hg] Star RECINOS [facility] 08-25-2023 11:36-0500 Heart rate 79 /min Star RECINOS [facility] 08-25-2023 11:36-0500 Respiratory rate 16 /min Star RECINOS [facility] 08-25-2023 11:36-0500 Systolic blood pressure 134 mm[Hg] Star RECINOS [facility] 12-10-2022 16:07-0400 Body height 165.1 cm Kristyn S Ladonna Work Phone: [facility] DO Work Phone: 12-10-2022 16:07-0400 Body mass index (BMI) [Ratio] 26.96 kg/m2 Kristynfrank Jean-Baptistemer Work Phone: [facility] DO Work Phone: 12-10-2022 16:07-0400 Body surface area Derived from formula 1.81 m2 Kristyn S Ladonna Work Phone: [facility] DO Work Phone: 12-10-2022 16:07-0400 Body weight 73.48 kg Kristyn Jean-Baptistemer Work Phone: [facility] DO Work Phone: 04-29-2022 11:05-0400 Body height 163.83 cm Jing Campbell Work Phone: [place] 5998U Work Phone: 04-29-2022 11:05-0400 Body mass index (BMI) [Ratio] 28.73 kg/m2 Jing Campbell Work Phone: EN-IGJE-Ucvr 1815A Work Phone: 04-29-2022 11:05-0400 Body surface area Derived from formula 1.84 m2 Jing Saud Adrian Work Phone: GI-XKLK-Ctsn 2535A Work Phone: 04-29-2022 11:05-0400 Body temperature 97.5 [degF] Jing Saud Adrian Work Phone: IC-ACAG-Obmx 2535A Work Phone: 04-29-2022 11:05-0400 Body weight 77.11 kg Jing Saud Garciaey Work Phone: KB-BJAP-Hjzw 2535A Work Phone: 04-29-2022 11:05-0400 Diastolic blood pressure 82 mm[Hg] Jing Garciaey Work Phone: ID-BWDS-Zvzw 2535A Work Phone: 04-29-2022 11:05-0400 Heart rate 72 /min Jing Saud Adrian Work Phone: LM-GWFS-Qrsx 2535A Work Phone: 04-29-2022 11:05-0400 Respiratory rate 16 /min Jing Campbell Work Phone: FQ-AUCA-Jicj 2535A Work Phone: 04-29-2022 11:05-0400 SaO2% (BldA) [Mass fraction] 98 % Jing R Adrian Work Phone: TM-QFEY-Cjig 2535A Work Phone: 04-29-2022 11:05-0400 Systolic blood pressure 130 mm[Hg] Jing Campbell Work Phone: CV-KITY-Pgzv 2535A Work Phone: 04-12-2022 11:45-0400 Body mass index (BMI) [Ratio] 27.79 kg/m2 Jing Campbell Work Phone: AD-AWQS-Qymz 2535A Work Phone: 04-12-2022 11:45-0400 Body surface area Derived from formula 1.83 m2 Jing Campbell Work Phone: BF-VNXQ-Kqvk 2535A Work Phone: 04-12-2022 11:45-0400 Body temperature 98.2 [degF] Jing Campbell Work Phone: SC-FLEC-Oqir 2535A Work Phone: 04-12-2022 11:45-0400 Body weight 75.75 kg Jing Campbell Work Phone: BX-QYHF-Zyrl 2535A Work Phone: 04-12-2022 11:45-0400 Diastolic blood pressure 80 mm[Hg] Jing Campbell Work Phone: HG-URYO-Jrzt 2535A Work Phone: 04-12-2022 11:45-0400 Heart rate 72 /min Jing Campbell Work Phone: RG-CEKO-Wqvz 2535A Work Phone: 04-12-2022 11:45-0400 Respiratory rate 18 /min Jing Campbell Work Phone: YJ-GCHY-Ijbh 2535A Work Phone: 04-12-2022 11:45-0400 SaO2% (BldA) [Mass fraction] 98 % Jing Campbell Work Phone: VO-DTQH-Xeap 2535A Work Phone: 04-12-2022 11:45-0400 Systolic blood pressure 126 mm[Hg] Jing Campbell Work Phone: YE-MIIO-Ijzj 2535A Work Phone: 01-07-2022 09:18-0400 Body height 165.1 cm Jing Campbell Work Phone: [facility] Work Phone: 01-07-2022 09:18-0400 Body mass index (BMI) [Ratio] 28.11 kg/m2 Jing Campbell Work Phone: [facility] Work Phone: 01-07-2022 09:18-0400 Body surface area Derived from formula 1.84 m2 Jing Campbell Work Phone: [facility] Work Phone: 01-07-2022 09:18-0400 Body weight 76.61 kg Jing Campbell Work Phone: [facility] Work Phone: 01-07-2022 09:18-0400 Diastolic blood pressure 70 mm[Hg] Jing Campbell Work Phone: [facility] Work Phone: 01-07-2022 09:18-0400 Systolic blood pressure 118 mm[Hg] Jing Campbell Work Phone: [facility] Work Phone: 11-20-2021 13:51-0400 Body height 165.1 cm Jign Campbell Work Phone: [facility] Work Phone: 11-20-2021 13:51-0400 Body mass index (BMI) [Ratio] 28.62 kg/m2 Jing Campbell Work Phone: [facility] Work Phone: 11-20-2021 13:51-0400 Body surface area Derived from formula 1.86 m2 Jing Campbell Work Phone: [facility] Work Phone: 11-20-2021 13:51-0400 Body weight 78.02 kg Jing Campbell [facility] Work Phone: 11-20-2021 13:51-0400 Diastolic blood pressure 80 mm[Hg] Jing Campbell Work Phone: [facility] Work Phone: 11-20-2021 13:51-0400 Systolic blood pressure 110 mm[Hg] Jing Campbell Work Phone: [facility] Work Phone: 10-29-2021 11:29-0400 Body mass index (BMI) [Ratio] 28.62 kg/m2 Jing Campbell Work Phone: LZ-NJWH-Kjzh 2535A Work Phone: 10-29-2021 11:29-0400 Body surface area Derived from formula 1.86 m2 Jing Campbell Work Phone: GG-GIRV-Sumd 2535A Work Phone: 10-29-2021 11:29-0400 Body temperature 98.2 [degF] Jing Campbell Work Phone: HP-MICG-Tira 2535A Work Phone: 10-29-2021 11:29-0400 Body weight 78.02 kg Jing Campbell Work Phone: PF-DDDP-Hrjs 2535A Work Phone: 10-29-2021 11:29-0400 Diastolic blood pressure 72 mm[Hg] Jing Campbell Work Phone: FO-ODDX-Qwtm 2535A Work Phone: 10-29-2021 11:29-0400 Heart rate 76 /min Jing Campbell Work Phone: QX-JVWN-Tfxb 2535A Work Phone: 10-29-2021 11:29-0400 Respiratory rate 18 /min Jing Campbell Work Phone: OH-FZOF-Iuhx 2535A Work Phone: 10-29-2021 11:29-0400 SaO2% (BldA) [Mass fraction] 98 % Jing Saud Adrian Work Phone: HZ-ZDTJ-Dxqd 2535A Work Phone: 10-29-2021 11:29-0400 Systolic blood pressure 122 mm[Hg] Jingnikhil Garciaey Work Phone: FH-OARV-Iaej 2535A Work Phone: 05-08-2021 11:20-0400 Diastolic blood pressure 82 mm[Hg] Jing Campbell Work Phone: ZP-DUQV-Fwxc 2535A Work Phone: 05-08-2021 11:20-0400 Systolic blood pressure 130 mm[Hg] Jing R Adrian Work Phone: VF-CSWA-Kvyx 2535A Work Phone: 05-08-2021 10:35-0400 Body height 165.1 cm Jing R Adrian Work Phone: YE-JLFG-Iknd 2535A Work Phone: 05-08-2021 10:35-0400 Body mass index (BMI) [Ratio] 28.62 kg/m2 Jing Garciaey Work Phone: BH-OGFY-Rplj 2535A Work Phone: 05-08-2021 10:35-0400 Body surface area Derived from formula 1.86 m2 Jing Campbell Work Phone: DL-LHZV-Ebgm 2535A Work Phone: 05-08-2021 10:35-0400 Body temperature 97.5 [degF] Jing Campbell Work Phone: LK-JEOV-Cnep 2535A Work Phone: 05-08-2021 10:35-0400 Body weight 78.02 kg Jing Campbell Work Phone: KM-GIOK-Tsfj 2535A Work Phone: 05-08-2021 10:35-0400 Diastolic blood pressure 84 mm[Hg] Jing Villavicencio Adrian Work Phone: WB-WMQL-Booh 2535A Work Phone: 05-08-2021 10:35-0400 Heart rate 80 /min Jing Campbell Work Phone: KX-SKYL-Lcnm 2535A Work Phone: 05-08-2021 10:35-0400 Respiratory rate 16 /min Jing Campbell Work Phone: ID-DRXT-Epge 2535A Work Phone: 05-08-2021 10:35-0400 SaO2% (BldA) [Mass fraction] 98 % Jing Saud Adrian Work Phone: UH-LPSO-Zufw 2535A Work Phone: 05-08-2021 10:35-0400 Systolic blood pressure 144 mm[Hg] Jing Campbell Work Phone: DJ-QAOZ-Vbsh 2535A Work Phone: 04-20-2021 09:27-0400 Body height 165.1 cm Jing Campbell Work Phone: [facility] Work Phone: 04-20-2021 09:27-0400 Body mass index (BMI) [Ratio] 28.29 kg/m2 Jing Campbell Work Phone: [facility] Work Phone: 04-20-2021 09:27-0400 Body surface area Derived from formula 1.85 m2 Jing Campbell Work Phone: [facility] Work Phone: 04-20-2021 09:27-0400 Body temperature 97.3 [degF] Jing Campbell Work Phone: [facility] Work Phone: 04-20-2021 09:27-0400 Body weight 77.11 kg Jing Campbell Work Phone: [facility] Work Phone: 04-20-2021 09:27-0400 Diastolic blood pressure 93 mm[Hg] Jing Campbell Work Phone: [facility] Work Phone: 04-20-2021 09:27-0400 Heart rate 69 /min Jing Campbell Work Phone: [facility] Work Phone: 04-20-2021 09:27-0400 Systolic blood pressure 139 mm[Hg] Jing Campbell Work Phone: [facility] Work Phone: 04-04-2021 09:17-0400 Body height 165.1 cm Jing Campbell Work Phone: PD-QMCQ-Htyy 9345W Work Phone: 04-04-2021 09:17-0400 Body mass index (BMI) [Ratio] 28.46 kg/m2 Jing Campbell Work Phone: DJ-RHPN-Onbk 2535A Work Phone: 04-04-2021 09:17-0400 Body surface area Derived from formula 1.85 m2 Jing Campbell Work Phone: [id number] Work Phone: 04-04-2021 09:17-0400 Body temperature 97.7 [degF] Jing Campbell Work Phone: [id number] Work Phone: 04-04-2021 09:17-0400 Body weight 77.57 kg Jing Campbell Work Phone: [id number] [id number] Work Phone: 04-04-2021 09:17-0400 Diastolic blood pressure 84 mm[Hg] Jing Campbell Work Phone: [id number] Work Phone: 04-04-2021 09:17-0400 Heart rate 68 /min Jing Campbell Work Phone: QO-KXXR-Sjek 2535A Work Phone: 04-04-2021 09:17-0400 Respiratory rate 18 /min Jing Campbell Work Phone: SG-MRHM-Btcw 2535A Work Phone: 04-04-2021 09:17-0400 SaO2% (BldA) [Mass fraction] 98 % Jing Campbell Work Phone: AD-JWXW-Voqg 2535A Work Phone: 04-04-2021 09:17-0400 Systolic blood pressure 128 mm[Hg] Jing Campbell Work Phone: YC-ICOB-Ickn 2535A Work Phone: 03-20-2021 15:27-0400 Body height 166.37 cm Jing Garciaey Work Phone: NS-XTZN-Jbtw 2535A Work Phone: 03-20-2021 15:27-0400 Body mass index (BMI) [Ratio] 27.04 kg/m2 Jing Campbell Work Phone: RM-OWFD-Oksa 2535A Work Phone: 03-20-2021 15:27-0400 Body surface area Derived from formula 1.83 m2 Jing Campbell Work Phone: MT-OFWG-Ilga 2535A Work Phone: 03-20-2021 15:27-0400 Body weight 74.84 kg Jing Campbell Work Phone: UK-DGZU-Mnxn 2535A Work Phone: 02-20-2021 10:54-0400 Body mass index (BMI) [Ratio] 27.12 kg/m2 Jing Campbell Work Phone: RB-WDHP-Rjlz 2535A Work Phone: 02-20-2021 10:54-0400 Body surface area Derived from formula 1.81 m2 Jing Campbell Work Phone: QD-PFEF-Jrfe 2535A Work Phone: 02-20-2021 10:54-0400 Body temperature 97.2 [degF] Jing Campbell Work Phone: QB-IVZT-Lhxq 2535A Work Phone: 02-20-2021 10:54-0400 Body weight 73.94 kg Jing Campbell Work Phone: FC-QKUE-Xxpq 2535A Work Phone: 02-20-2021 10:54-0400 Diastolic blood pressure 78 mm[Hg] Jing Campbell Work Phone: MG-MKSD-Eoyi 2535A Work Phone: 02-20-2021 10:54-0400 Heart rate 72 /min Jing Campbell Work Phone: TF-NHNK-Mjov 2535A Work Phone: 02-20-2021 10:54-0400 Respiratory rate 16 /min Jing Campbell Work Phone: VX-QOLG-Ymse 2533W Work Phone: 02-20-2021 10:54-0400 SaO2% (BldA) [Mass fraction] 98 % Jing Campbell Work Phone: PG-QAHH-Zwgi 2538H Work Phone: 02-20-2021 10:54-0400 Systolic blood pressure 128 mm[Hg] Jing Campbell Work Phone: IH-DGOH-Erdc 2535A Work Phone: 12-27-2020 09:29-0400 Body mass index (BMI) [Ratio] 26.29 kg/m2 Jing Campbell Work Phone: YY-QUCG-Tcds 2530F Work Phone: 12-27-2020 09:29-0400 Body surface area Derived from formula 1.79 m2 Jing Campbell Work Phone: FF-QSXF-Fwrr 2535A Work Phone: 12-27-2020 09:29-0400 Body temperature 97.8 [degF] Jing Campbell Work Phone: YG-STOM-Fvuc 2535A Work Phone: 12-27-2020 09:29-0400 Body weight 71.67 kg Jing Campbell Work Phone: YQ-VIBT-Ixvn 2535A Work Phone: 12-27-2020 09:29-0400 Diastolic blood pressure 82 mm[Hg] Jing Campbell Work Phone: IQ-QZHO-Ltka 2533P Work Phone: 12-27-2020 09:29-0400 Heart rate 72 /min Jing Campbell Work Phone: ZW-RQIF-Kocr 2530J Work Phone: 12-27-2020 09:29-0400 Respiratory rate 16 /min Jing Campbell Work Phone: HB-JCHN-Vtwg 2538I Work Phone: 12-27-2020 09:29-0400 SaO2% (BldA) [Mass fraction] 97 % Jing Campbell Work Phone: EW-RJBX-Wvbc 2537Q Work Phone: 12-27-2020 09:29-0400 Systolic blood pressure 132 mm[Hg] Jing Campbell Work Phone: TN-HMKQ-Oais 2530C Work Phone: Encounters Encounter Date Encounter Type Care Provider Facility Start: 04-04-2025 ambulatory Star Macias ty:[facility] Start: 11-23-2024 End: 11-23-2024 Bamboo flowsheet Danielito Carmen DO Work Phone: [facility] Start: 11-23-2024 End: 11-23-2024 Bamboo flowsheet Danielito Carmen DO Work Phone: [facility] Start: 11-23-2024 End: 11-23-2024 Office outpatient visit 10 minutes Danielito Carmen DO Work Phone: [facility] Comment on above: Breast cancer screen ing by mammogram; Wellness examination Start: 11-23-2024 End: 11-23-2024 Patient encounter status Danielito Carmen DO Work Phone: [facility] Start: 11-23-2024 End: 11-23-2024 ambulatory DANIELITO MORALES Not Available Start: 11-18-2024 End: 11-18-2024 Office outpatient visit 15 minutes Lexx Diop MD Work Phone: [facility] Comment on above: PAD (peripheral johny ry disease) (Primary Dx); Ischemia of both feet Start: 11-15-2024 ambulatory Star RECINOS Facili ty:[id number] Start: 10-21-2024 End: 10-21-2024 Office outpatient new 45 minutes Lexx Diop MD Work Phone: [facility] Comment on above: Ischemia of both fee t (CMS-HCC) (Primary Dx); PAD (peripheral artery disease) ([facility]-HCC); Arterial embolism ([facility]-HCC) Start: 10-18-2024 End: 10-18-2024 ambulatory Star RECINOS Facility:[facility] [place] Start: 09-21-2024 End: 09-21-2024 Telephone encounter Christi Jones APRN.CNP Work Phone: [facility] [place] Comment on above: Refill Request Start: 09-21-2024 End: 09-21-2024 Patient encounter procedure Christi Jones APRN.CNP Work Phone: [facility] Comment on above: Constipation, unspec ified constipation type (Primary Dx); History of colon polyps Start: 09-13-2024 End: 09-16-2024 Telephone encounter [facility] Work Phone: [facility] Start: 06-02-2024 End: 06-02-2024 ambulatory Jadyn Ghazocal Facility:[facility] Start: 05-05-2024 End: 05-05-2024 ambulatory Jadyn Paddyazoul Facility:[facility] Start: 05-03-2024 End: 05-03-2024 ambulatory Star RECINOS Facility:[id number] Start: 04-21-2024 End: 04-21-2024 ambulatory Kristyn Dougherty Facility:[facility] Start: 03-31-2024 End: 03-31-2024 ambulatory Kritsyn Dougherty Facility:[facility] Start: 03-17-2024 End: 03-17-2024 ambulatory Kristyn Dougherty Facility:[facility] Start: 03-10-2024 End: 03-10-2024 ambulatory Kristyn Dougherty Facility:[facility] Start: 03-04-2024 ambulatory Jadyn Kathy Facility :[facility] Start: 03-04-2024 End: 03-04-2024 ambulatory Kristyn Dougherty Facility:[facility] Start: 02-18-2024 End: 02-18-2024 ambulatory Jadyn Paddyazoul Facility:[facility] Start: 02-04-2024 End: 02-04-2024 ambulatory Jadyn Ghazoul Facility:[facility] Start: 01-20-2024 End: 01-20-2024 ambulatory Jadyn Ghazoul Facility:[facility] Start: 01-16-2024 End: 01-16-2024 Office outpatient visit 25 minutes Carlito Horvath MD Work Phone: [facility] [address] Comment on above: Malignant neoplasm o f central portion of right breast in female, estrogen receptor negative (Multi) (Primary Dx); Iron deficiency; Postmenopausal osteoporosis; Peptic ulcer disease; Dry eyes; Closed sleeve fracture of left patella, sequela Start: 01-16-2024 End: 01-16-2024 ambulatory CARLITO HORVATH [facility] Start: 12-21-2023 End: 12-21-2023 ambulatory MD Star Recinos Work Phone: [facility] Work Phone: Start: 12-21-2023 End: 12-21-2023 Patient encounter procedure MD Star Recinos Work Phone: [facility] Work Phone: Start: 11-04-2023 End: 11-04-2023 ambulatory Star RECINOS Facility:[facility] Start: 11-04-2023 End: 11-04-2023 Lab Drop off Star RECINOS [facility] Start: 11-04-2023 End: 11-04-2023 ambulatory Star RECINOS Facility:[facility] [place] Start: 11-04-2023 End: 11-04-2023 Patient encounter procedure Star RECINOS [facility] Start: 10-06-2023 End: 10-06-2023 Patient encounter procedure Star RECINOS [facility] Start: 09-25-2023 End: 09-25-2023 ambulatory Star Recinos Facility:[facility] Start: 09-25-2023 End: 09-25-2023 Departed Referred MD Star Recinos Work Phone: [facility] Start: 08-25-2023 End: 08-25-2023 Patient encounter procedure Star RECINOS [facility] Start: 03-28-2023 End: 03-28-2023 ambulatory Lawrence MEDINA Facility:[facility] Start: 03-28-2023 End: 03-28-2023 Patient encounter procedure Lawrence Medina MD Work Phone: Plastic Surgery Comment on above: Breast pain (Primary Dx); Acquired breast deformity; Capsular contracture of breast implant, initial encounter Start: 03-25-2023 End: 03-25-2023 ambulatory Lawrence MEDINA Facility:[facility] Start: 02-11-2023 Patient encounter procedure Kristyn Dougherty Work Phone: [facility] Work Phone: Start: 02-11-2023 ambulatory MD SANDRA TAYLOR Facility: [id number] Start: 01-17-2023 ambulatory MD CARLITO HORVATH Facility:[facility] Start: 01-17-2023 ambulatory MD CARLITO HORVATH Facility:[id number] Start: 01-07-2023 ambulatory MD SANDRA TAYLOR Facility: [id number] Start: 12-18-2022 ambulatory KRISTYN DOUGHERTY Facility: H1 Start: 12-17-2022 ambulatory MD SANDRA TAYLOR Facility: [id number] Start: 12-10-2022 Patient encounter procedure Kristyn Dougherty Work Phone: [facility] Work Phone: Start: 12-10-2022 ambulatory DO JING CAMPBELL Facility:[id number] Start: 11-28-2022 End: 11-29-[address] ILDEFONSO HO Facility:H1 Start: 10-18-2022 End: 10-19-2022 ambulatory KRISTYN DOUGHERTY Facility:H1 Start: 08-17-2022 End: 08-18-[address] ILDEFONSO HO Facility:H1 Start: 07-05-2022 End: 07-05-2022 ambulatory KRISTYN DOUGHERTY Facility:H1 Start: 06-28-2022 End: 06-28-2022 ambulatory KRISTYN DOUGHERTY Facility:H1 Start: 05-01-2022 Chart Update Jing canseco Work Phone: [id number]-Kdzh 2535U Work Phone: Start: 04-29-2022 ambulatory DO JING CAMPBELL Facility:[id number] Start: 04-29-2022 Current tobacco non-user cad cap copd pv dm Jing Campbell Work Phone: AF-VRNJ-Jsyj 2535A Work Phone: Start: 04-16-2022 Chart Update Jing canseco Work Phone: YA-NKVF-Odeo 2535A Work Phone: Start: 04-12-2022 Patient encounter procedure Jing Campbell Work Phone: mp-WSPC-Avon 2534Z Work Phone: Start: 04-12-2022 ambulatory DO JING CAMPBELL Facility:[id number] Start: 01-07-2022 Office outpatient visit 15 minutes Jing Campbell Work Phone: [facility] Work Phone: Start: 11-30-2021 AUDIT Jing canseco Work Phone: ES-LRSE-Tnou 2535A Work Phone: Start: 11-28-2021 AUDIT Jing canseco Work Phone: DE-GYJG-Lizr 2535A Work Phone: Start: 11-26-2021 Chart Update Jing canseco Work Phone: BN-DPNE-Kghf 2535A Work Phone: Start: 11-20-2021 Office outpatient new 45 minutes Jing Campbell Work Phone: [facility] Work Phone: Start: 10-29-2021 Office outpatient visit 25 minutes Jing Campbell Work Phone: IW-FXAO-Jpcj 2535A Work Phone: Start: 05-08-2021 Current tobacco non-user cad cap copd pv dm Jing Campbell Work Phone: FG-KTIY-Gtai 2535A Work Phone: Start: 04-20-2021 Office consultation new/estab patient 60 min Jing Campbell Work Phone: [facility] Work Phone: Start: 04-04-2021 Office outpatient visit 25 minutes Jing Campbell Work Phone: QG-GVDY-Buki 2535A Work Phone: Start: 03-13-2021 AUDIT Jing canseco Work Phone: MJ-PJLN-Brkm 2535A Work Phone: Start: 02-26-2021 AUDIT Jing canseco Work Phone: ET-JUHQ-Yyhg 2535A Work Phone: Start: 02-23-2021 Chart Update Jing canseco Work Phone: SC-GPOL-Oklz 2535A Work Phone: Start: 02-20-2021 Office outpatient visit 25 minutes Jing Campbell Work Phone: UC-JHFQ-Nyzf 2535A Work Phone: Start: 02-20-2021 Patient encounter procedure Jing Campbell Work Phone: SI-NCWH-Gkti 2535A Work Phone: Start: 12-27-2020 Office outpatient visit 25 minutes Jing Campbell Work Phone: OU-VMRB-Oujq 2535A Work Phone: Start: 07-10-2020 Patient encounter procedure Jing Campbell RQ-UILR-Utmz 2535A Work Phone: Start: 02-11-2020 Patient encounter procedure Jing Campbell ZP-OMQD-Aphs 2535A Work Phone: Start: 07-01-2019 Patient encounter procedure Jing Campbell YG-PJFK-Fzjn 2535A Work Phone: Start: 05-19-2019 Patient encounter procedure Jing Campbell YW-NDZT-Sfzq 2535A Work Phone: Start: 05-10-2019 Patient encounter procedure Jing Campbell DN-MEFM-Oyiv 2535A Work Phone: Start: 08-25-2018 Patient encounter procedure JUAN RUTHERFORD Facility:8 Start: 05-07-2018 Patient encounter procedure JINGNIKHIL CAMPBELL Facility:3 Start: 10-18-2017 Ambulatory Jingnikhil Campbell [facility] [place] Date Procedure Procedure Detail Performing Clinician Start: 05-16-2022 Colonoscopy Carlito paul MD Work Phone: Start: 04-29-2022 Lipid 1996 panel - S saadia or Plasma Carlito Horvath MD Work Phone: Cataract surgery Jing portillo Comment on above: bilateral 2015; Decompression of med melchor nerve Star RECINOS Excision of breast Star JONES Extraction of cataract Pablo RECINOS Extraction of wisdom tooth P mikaela RECINOS History of total hysterectomy with bilateral salpingo-oophorectomy Star RECINOS Ligation of fallopian tube M tito Saud Adrian Work Phone: Ligation of varicose vein Lauren Campbell Procedure on back Star WA TERS Procedure on neck Star MENDEZ TERS Tonsillectomy and adenoidectomy Jing Campbell Comment on above: uvula also removed; Total hysterectomy Jing Campbell Work Phone: Comment on above: 1980 - due AUB and e nloarged ovarian cyst; Plan of Treatment Date Care Activity Detail Author Start: 05-16-2032 Screening for malignant neoplasm of colon [facility] Start: 04-29-2027 Lipid panel [facility] Start: 10-21-2025 Adult [facility]ening [facility] Start: 10-21-2025 Tobacco Screening [facility] Start: 04-29-2025 Diabetes Screening Diabetes Screening [facility] Start: 03-28-2025 Influ[facility] Start: 01-14-2025 End: 07-17-2025 Cancer Ag 27-29 [Units/volume] in Serum or Plasma Cancer Antigen 27-29 Lab Routine Malignant neoplasm of central portion of right breast in female, estrogen receptor negative (Multi) Expected: 01/14/2025 (Approximate), Expires: 07/17/2025 [facility] Work Phone: Comment on above: Expected: 01/14/2025 (Approximate), Expi res: 07/17/2025 Start: 01-14-2025 End: 07-17-2025 CBC W Auto Differential panel - Blood CBC and Auto Differential Lab Routine Malignant neoplasm of central portion of right breast in female, estrogen receptor negative (Multi) Expected: 01/14/2025, Expires: 07/17/2025 [facility] Service [facility] Work Phone: Comment on above: Expected: 01/14/2025, Expires: Start: 01-14-2025 End: 07-17-2025 Comprehensive metabolic 2000 panel - Serum or Plasma Comprehensive metabolic panel Lab Routine Malignant neoplasm of central portion of right breast in female, estrogen receptor negative (Multi) Expected: 01/14/2025 (Approximate), Expires: 07/17/2025 [facility] Work Phone: Comment on above: Expected: 01/14/2025 (Approximate), Expi res: 07/17/2025 Start: 01-14-2025 End: 07-17-2025 Ferritin [Mass/volume] in Serum or Plasma Ferritin Lab Routine Iron deficiency Expected: 01/14/2025 (Approximate), Expires: 07/17/2025 [facility] Work Phone: Comment on above: Expected: 01/14/2025 (Approximate), Expi res: 07/17/2025 Start: 01-14-2025 End: 07-17-2025 Iron and Iron binding capacity panel - Serum or Plasma Iron and TIBC Lab Routine Iron deficiency Expected: 01/14/2025, Expires: 07/17/2025 [facility] Work Phone: Comment on above: Expected: 01/14/2025, Expires: Start: 01-14-2025 End: 01-14-2025 Patient encounter procedure [facility] Comment on above: 4 month follow up visit Start: 12-23-2024 Screening for malignant neoplasm of breast Mammogram Screening [facility] Start: 11-23-2024 End: 01-23-2026 MG Breast - bilateral Screening Bilateral screening mammogram Imaging Routine Breast cancer screening by mammogram Expected: 11/23/2024, Expires: 01/23/2026 [facility] Work Phone: Comment on above: Expected: 11/23/2024, Expires: Start: 11-23-2024 End: 11-23-2024 Patient encounter procedure 11/23/2024 2:00 PM EDT Office Visit [facility] [address] [place] [address] Danielito Morales, DO [address] [place] [address] Arrived [facility] Comment on above: Arrived Start: 2024 RSV Vaccine (1 - 1-dose 75+ series) RSV Vaccine (1 - 1-dose 75+ series) [facility] Start: 10-21-2024 End: 10-21-2025 CTA Abdominal Aorta and Bilateral Runoff Vessels W contrast IV CT angiogram abdominal aorta with runoff Imaging Routine Arterial embolism (CMS-HCC) Expected: 10/21/2024, Expires: 10/21/2025 [facility] Work Phone: Comment on above: Expected: 10/21/2024, Expires: Start: 09-21-2024 End: 09-21-2024 Patient encounter procedure 09/21/2024 10:30 AM EST Office Visit [facility] [address] [place] [address] Christi Jones APRN.ORDER TRACER [address] [place] [id number] constipation pain lower back [facility] Comment on above: constipation pain lower back Start: 07-28-2024 Advance Directive Discussion Advance Directive Discussion [facility] Start: 06-10-2024 Administration of varicella zoster vaccine Zoster (Shingles) Vaccine (3 of 3) [facility] nubelo [facility] Start: 06-10-2024 Shingrix Vaccine (3 of 3) Shingrix Vaccine (3 of 3) [facility] Start: 03-28-2024 Covid-19 Vaccine ( season) Covid-19 Vaccine ( season) [facility] Start: 03-28-2024 Influenza vaccination Influenza Vaccine (#1) [facility] Start: 11-26-2023 Zoster Vaccines (3 of 3) Zoster Vaccines (3 of 3) [facility] Start: 05-16-2023 Screening for malignant neoplasm of colon [facility] Start: 03-28-2023 COVID-19 Vaccine ( season) COVID-19 Vaccine () [facility] Start: 03-28-2023 Influenza vaccination INFLUENZA (#1) [facility] Start: 03-20-2023 Urine microalbumin profile DTaP,Tdap,Td Vaccine (2 - Td or Tdap) [facility] Start: 01-07-2023 FUV, Provider: Sandra Taylor, Status: Pen, Time: 9:45 AM FUV, Provider: Sandra Taylor, Status: Pen, Time: 9:45 AM [facility] Work Phone: Start: 10-29-2022 EPV, Provider: Jing Campbell, Status: Pen, Time: 10:40 AM EPV, Provider: Jing Campbell, Status: Pen, Time: 10:40 AM [id number]-Isyf 2535A Work Phone: Start: 07-28-2022 ADVANCE DIRECTIVE DISCUSSION ADVANCE DIRECTIVE DISCUSSION [facility] Start: 07-28-2022 DEPRESSION ASSESSMENT DEPRESSION ASSESSMENT [facility] Start: 04-29-2022 MCRINITIAL, Provider: Jing Campbell, Status: Pen, Time: 10:40 AM MCRINITIAL, Provider: Jing Campbell, Status: Pen, Time: 10:40 AM BI-EISU-Nbyw 2535A Work Phone: Start: 01-07-2022 FUV, Provider: Efra Barnett, Status: Pen, Time: 9:15 AM FUV, Provider: Efra Barnett, Status: Pen, Time: 9:15 AM [facility] Work Phone: Start: 12-05-2021 NPV, Provider: Efra Barnett, Status: Pen, Time: 9:30 AM NPV, Provider: Efra Barnett, Status: Pen, Time: 9:30 AM [id number]-Ccqe 2535A Work Phone: Start: 07-16-2021 COVID-19 VACCINE (4 - Moderna series) COVID-19 VACCINE (4 - Moderna series) [facility] Start: 05-08-2021 Patient encounter procedure MCRANNUAL, Provider: Jing Campbell, Status: Pen, Time: 10:20 AM [id number]-Cbpl 2535A Work Phone: Start: 04-20-2021 NPV, Provider: Allyn Ba, Status: Pen, Time: 9:30 AM NPV, Provider: Allyn Ba, Status: Pen, Time: 9:30 AM [facility] Work Phone: Start: 04-04-2021 MCRINITIAL, Provider: Jing Campbell, Status: Pen, Time: 9:20 AM MCRINITIAL, Provider: Jing Campbell, Status: Pen, Time: 9:20 AM QZ-CNSW-Jtyk 2535A Work Phone: Start: 03-20-2021 NPV, Provider: Juan Rutherford, Status: Pen, Time: 2:30 PM NPV, Provider: Juan Rutherford, Status: Pen, Time: 2:30 PM [facility] Work Phone: Start: 02-16-2021 NPV, Provider: Allyn Ba, Status: Pen, Time: 8:00 AM NPV, Provider: Allyn Ba, Status: Pen, Time: 8:00 AM MN-YXOE-Kati 2535A Work Phone: Start: 2014 BONE DENSITY BONE DENSITY [facility] Start: 2014 Fall Risk Screening Fall Risk Screening [facility] Start: 2014 PNEUMOCOCCAL: 65+ (1 - PCV) PNEUMOCOCCAL: 65+ (1 - PCV) [facility] Start: 2014 Screening for osteoporosis Bone Density Screening [facility] Start: 08-16-2014 Shingrix Vaccine (2 of 3) Shingrix Vaccine (2 of 3) [facility] Start: 11-08-1999 SHINGRIX VACCINE (1 of 2) SHINGRIX VACCINE (1 of 2) [facility] Start: 1994 COLOGUARD (FIT-DNA) COLOGUARD (FIT-DNA) [facility] Start: 1994 Colonoscopy COLONOSCOPY [facility] Start: 1994 COLORECTAL CANCER SCREENING COLORECTAL CANCER SCREENING [facility] Start: [address] COLONOGRAPHY [facility] Start: 1994 DIABETES SCREEN DIABETES SCREEN [facility] Start: 1994 FECAL OCCULT BLOOD FECAL OCCULT BLOOD [facility] Start: 1994 LIPID SCREEN LIPID SCREEN [facility] Start: 1994 Screening for malignant neoplasm of colon [facility] Start: 1994 SIGMOIDOSCOPY SIGMOIDOSCOPY [facility] Start: 1989 Mammography MAMMOGRAM [facility] Start: 11-08-1971 DTaP/Tdap/Td Vaccines (1 - Tdap) DTaP/Tdap/Td Vaccines (1 - Tdap) [facility] Start: 1968 DTaP,Tdap and Td Vaccines (1 - Tdap) DTaP,Tdap and Td Vaccines (1 - Tdap) [facility] Start: 1968 Urine microalbumin profile DTAP,TDAP,TD (1 - Tdap) [facility] Start: 11-08-1967 Adult BMI Follow Up Plan Adult BMI Follow Up Plan [facility] Start: 11-08-1967 Anxiety Screening Anxiety Screening [facility] Start: 11-08-1967 Depression Screening Depression Screening [facility] Start: 11-08-1967 HEPATITIS C SCREENING HEPATITIS C SCREENING [facility] Start: 11-08-1967 Hepatitis C screening Hepatitis C Screening [facility] Start: 1961 Depression Screening [facility]ening [facility] Start: 1949 Medicare Annual Wellness Visit Medicare Annual Wellness Visit (AWV) [facility] Start: 1949 Screening for malignant neoplasm of colon [facility] Start: 1949 Screening for osteoporosis Bone Density Scan [facility] End: 10-21-2025 Creatinine includes GFR, serum Creatinine includes GFR, serum Lab Routine PAD (peripheral artery disease) (CMS-HCC) Ischemia of both feet ([facility]-HCC) Arterial embolism ([facility]-HCC) 1 Occurrences starting 10/21/2024 until 10/21/2025 [facility] Comment on above: 1 Occurrences starting 10/21/2024 until 10/21/2025 Immunizations Immunization Date Immunization Notes Care Provider Fa rigo 04-15-2024 influenza virus vaccine, unspecified formulation Lexx Diop MD Work Phone: [facility] 04-15-2024 zoster vaccine, unspecified formulation Lexx Diop MD Work Phone: [facility] 10-01-2022 influenza virus vaccine, unspecified formulation [facility] Work Phone: [facility] 04-12-2022 Fluzone High-Dose Quadrivalent 0.7 ML Intramuscular Suspension Prefilled Syringe; Translations: [Fluzone High-Dose Quadrivalent 0.7 ML Intramuscular Suspension Prefilled Syringe] Jing Campbell Work Phone: [id number] Work Phone: Comment on above: Series: 05-21-2021 Moderna COVID-19 Vaccine 100 MCG/0.5ML Intramuscular Suspension Jing Campbell Work Phone: [facility] Comment on above: Series: 04-04-2021 influenza, high dose seasonal, preservative-free; Translations: [Fluzone High-Dose 0.5 ML Intramuscular Suspension Prefilled Syringe] Jing Campbell Work Phone: [id number] [id number] Work Phone: Comment on above: Series: 10-27-2020 Moderna COVID-19 Vaccine 100 MCG/0.5ML Intramuscular Suspension Jing Campbell Work Phone: [id number] Work Phone: Comment on above: Series: 09-22-2020 Moderna COVID-19 Vaccine 100 MCG/0.5ML Intramuscular Suspension Jing Campbell Work Phone: [facility] 03-20-2020 influenza, injectable, quadrivalent, preservative free Jing Saud Garciaey Work Phone: [id number] [id number] Work Phone: 05-19-2019 influenza, high dose seasonal, preservative-free; Translations: [Fluzone High-Dose 0.5 ML Intramuscular Suspension Prefilled Syringe] Jing Campbell [id number] Work Phone: Comment on above: Series: 05-10-2019 pneumococcal polysaccharide vaccine, 23 valent; Translations: [Pneumococcal polysaccharide vaccine, 23 valent] Jing Campbell [facility] Comment on above: Series: 03-12-2018 influenza, high dose seasonal, preservative-free Jing Garciaey Work Phone: [id number] Work Phone: 05-08-2016 pneumococcal conjugate vaccine, 13 valent Jing Campbell Work Phone: [id number] [id number] Work Phone: Comment on above: Series: 06-21-2014 pneumococcal polysaccharide vaccine, 23 valent Jing Campbell Work Phone: [facility] 06-21-2014 zoster vaccine, live Hayley Campbell Work Phone: [facility] COVID-19 mRNA booste r vaccine, Moderna, (Moderna COVID-19 Vac, Booster,) 50 MCG/0.5ML suspension dark blue cap injection Danielito Carmen DO Work Phone: [facility] Payers Date Payer Category Payer Self-pay 2021 Commercial Indemnity [facility] Member Subscriber Plan / Payer (Effective 2021-Present) Name: Brigitte High Relation to Subscriber: Self Name: Brigitte High Payer ID: Not on file Type: Not on file Address: [place] [id number] 2021 Private Health Insurance [id number] .[id number]. [id number] 2021 Unknown 2014 Medicare [id number]. 1.13.159.2. [id number] 1992 Medicare [id number] 1959 Medicare [id number] 1959 Unknown [id number] 1949 Unknown [id number] 2.16.840.1.499717.3.579.2. 355 1949 Unknown [id number] 2.16.840.1.812859.3.579.2. 355 1949 Unknown [id number] 2.16.840.1.472722.3.579.2. 593 1949 Unknown [id number] 2.16.840.1.897823.3.579.2. 593 1949 Unknown [id number] 2.16.840.1.334234.3.579.2. 593 1949 Unknown [id number] 2.16.840.1.014581.3.579.2. 593 1949 Unknown [id number] 2.16.840.1.117949.3.579.2. 593 1949 Unknown [id number] 2.16.840.1.107444.3.579.2. 593 1949 Unknown [id number] 2.16.840.1.249003.3.579.2. 1069 1949 Unknown [id number] 2.16.840.1.355390.3.579.2. 356 1949 Unknown [id number] 2.16.840.1.419668.3.579.2. 356 1949 Unknown [id number] 2.16.840.1.319688.3.579.2. 356 1949 Unknown [id number] 2.16.840.1.823393.3.579.2. 356 1949 Unknown [id number] 2.16.840.1.374106.3.579.2. 356 1949 Unknown [id number] 2.16.840.1.353808.3.579.2. 356 1949 Unknown [id number] 2.16.840.1.631299.3.579.2. 356 1949 Unknown [id number] 2.16.840.1.406641.3.579.2. 1245 1949 Unknown [id number] 2.840.1.034392.3.579.2. 1243 1949 Unknown [id number] 2.16.840.1.516143.3.579.2. 727 1949 Unknown [id number] 2.16.840.1.703162.3.579.2. 727 1949 Unknown [id number] 2.16.840.1.858352.3.579.2. 727 1949 Unknown [id number] 2..840.1.418218.3.579.2. 727 1949 Unknown [id number] 2.16.840.1.352921.3.579.2. 727 1949 Unknown [id number] 2.16.840.1.250382.3.579.2. 1259 Unknown [id number] Unknown [id number] 2.16.840.1.616322.3.579.2. 531 Unknown [id number] 2.16.840.1.128248.3.579.2. 462 Unknown [id number] 2.16.840.1.906940.3.579.2. 462 Unknown [id number] 2.16.840.1.977063.3.579.2. 462 Unknown [id number] 2.16.840.1.994809.3.579.2. 462 Unknown [id number] 2.16.840.1.679198.3.579.2. 462 Unknown [id number] 2.16.840.1.997528.3.579.2. 462 Unknown [id number] 2.16.840.1.158864.3.579.2. 462 Unknown [id number] 2.16.840.1.782298.3.579.2. 462 Unknown [id number] 2.16.840.1.244881.3.579.2. 462 Unknown [id number] 2.840.1.003135.3.579.2. 462 Unknown [id number] 2.16.840.1.725683.3.579.2. 462 Social History Date Type Detail Facility Start: 03-11-2022 End: 11-18-2024 Former smoker Former smoker [id number]-[id number] [id number] Work Phone: Start: 05-30-2014 End: 10-21-2024 Tobacco smoking status MEIS Ex-smoker [facility] History of tobacco use Current smoker [facility] Start: 03-11-2022 End: 09-21-2024 Alcohol intake Current drinker of alcohol (finding) [facility] Start: 03-11-2022 End: 11-18-2024 Tobacco use panel [facility] National Score (1-100), lower number is lower risk 91 [facility] Start: 05-30-2014 Tobacco Comment quit 7 years ago [facility] Start: 05-30-2014 Alcohol Comment social [facility] Start: 1950 Sex Assigned At Not on file [facility] Start: 1950 Sex Assigned At Female [facility] Start: 01-16-2024 Tobacco smoking status MEIS Tobacco smoking consumption unknown [facility] Start: 01-06-2024 End: 01-16-2024 Exposure to SARS-CoV-2 (event) Not sure [facility] History of tobacco use Cigarette Smoker [facility] Start: 10-21-2024 Tobacco use and exposure Smokeless tobacco non-user [facility] Start: 10-21-2024 Tobacco Comment Patient smoked 1PPD [id number] [facility] Start: 09-30-2024 Sex Female (finding) [facility] NEGATED: Highlighted row - - PH-PICV-Aint [id number] Work Phone: Medical Equipment Procedure Code Equipment Code Equipment Origin al Text Equipment Identifier Dates Lens Iol +15.50 Acrsf 13mm 6mm - [id number][facility] Start: 04-11-2015 Lens Iol +14 Salvador p 0 D Bcnvx 13 - [id number][facility] Start: 04-25-2015 Functional Status Date Assessment Result Facility 10-06-2023 Functional Status N/A [facility] 08-25-2023 Functional Status N/A [facility] 12-09-2014 Are you deaf, or do you have serious difficulty hearing No 12/09/2014 11:05 AM Xiomy Daly LPN [facility] 12-09-2014 Are you blind, or do you have serious difficulty seeing, even when wearing glasses No 12/09/2014 11:05 AM Xiomy Daly LPN [facility] 12-09-2014 Do you have serious difficulty walking or climbing stairs No 12/09/2014 11:05 AM Ximoy Daly LPN [facility] 12-09-2014 Do you have difficul ty dressing or bathing No 12/09/2014 11:05 AM Xiomy Daly LPN [facility] 12-09-2014 Because of a physica l, mental, or emotional condition, do you have difficulty doing errands alone such as visiting a physician's office or shopping No 12/09/2014 11:05 AM Xiomy Daly LPN [facility] NEGATED: Highlighted row Functional performance Functional status health issues are not documented Disease VC-ZWOL-Gcdn [id number] Work Phone: Mental Status Date Assessment Result Facility 12-09-2014 Because of a physical, mental, or emotional condition, do you have serious difficulty concentrating, remembering, or making decisions No 12/09/2014 11:05 AM EDT Xiomy Gerber LPN No [facility] NEGATED: Highlighted row Cognitive function [Interpretation] Cognitive status health issues are not documented Disease GI-ZGDY-Nfic 2535A Work Phone: Clinical Notes 12-28-2020 to 11-23-2024 Sangeeta Bennett LPN - 11/23/2024 2:00 PM EDTAssessment & Plan Note - Lexx Diop MD - 11/18/2024 9:10 AM EDTAssessment & Plan Note - Lexx Diop MD - 11/18/2024 9:10 AM EDT Note Date & Type Note Facility 11-23-2024 History of Presen t illness Narrative Reason for Appointment: Patient ID: Brigitte High is a 74 y.o. female who presents for Well Women Visit Patient presents today for Consult appointment. MEDICATIONS Current Outpatient Medications Medication Instructions B Hgyjdgl-Ufxpoi-DJ (GNP B-100 Complex) tablet controlled-release Oral bimatoprost (Latisse) 0.03 % ophthalmic solution APPLY 1 INCH TO AFFECTED EYE EVERYDAY AT BEDTIME COVID-19 mRNA booster vaccine, Moderna, (Moderna COVID-19 Vac, Booster,) 50 MCG/0.5ML suspension dark blue cap injection Intramuscular diclofenac (Voltaren) 75 MG EC tablet Oral doxycycline (Vibramycin) 100 MG capsule ibuprofen 600 MG tablet TAKE 1 TABLET BY MOUTH EVERY 6 TO 8 HOURS NEEDED ibuprofen 600 mg, Oral, Every 6 hours PRN multivitamin (Theragran) tablet Myrbetriq 50 mg, Oral, Daily omeprazole (PRILOSEC) 40 mg, Oral, Daily Turmeric (QC Tumeric Complex) 500 MG capsule Oral ALLERGIES Allergies Allergen Reactions Acetaminophen Unknown and Tinnitus Other Reaction(s): EARS RING Makes my ears ring Other Reaction(s): EARS RING, Other (See Comments) Makes my ears ring Other Reaction(s): EARS RING Makes my ears ring Codeine Unknown Other Reaction(s): Other (See Comments) PROBLEMS Active Ambulatory Problems Diagnosis Date Noted High risk for fracture due to osteoporosis by DEXA scan ([facility]) 01/26/2024 Resolved Ambulatory Problems Diagnosis Date Noted No Resolved Ambulatory Problems No Additional Past Medical History HISTORY PAST MEDICAL HISTORY SOCIAL HISTORY History reviewed. No pertinent past medical history. Social History Tobacco Use Smoking status: Not on file Smokeless tobacco: Not on file Substance Use Topics Alcohol use: Not on file Drug use: Not on file FAMILY HISTORY No family history on file. SURGICAL HISTORY Past Surgical History: Procedure Laterality Date CT AORTA AND BILATERAL ILIOFEMORAL RUNOFF ANGIOGRAM W AND/OR WO IV CONTRAST 11/02/2024 CT AORTA AND BILATERAL ILIOFEMORAL RUNOFF ANGIOGRAM W AND/OR WO IV CONTRAST 11/02/2024 HYSTERECTOMY 1981 REVIEW OF SYSTEMS Review of Systems: Review of Systems Constitutional: Negative. HENT: Negative. Eyes: Negative. Respiratory: Negative. Cardiovascular: Negative. Gastrointestinal: Negative. Genitourinary: Negative. Musculoskeletal: Negative. Skin: Negative. Neurological: Negative. All other systems reviewed and are negative. Hematological: Negative. Endocrine: Negative. Allergic/Immunologic: Negative. OBJECTIVE Objective: Physical Exam Constitutional: Appearance: Normal appearance. She is well-developed. Cardiovascular: Rate and Rhythm: Normal rate and regular rhythm. Pulmonary: Effort: Pulmonary effort is normal. Breath sounds: Normal breath sounds. Abdominal: General: Bowel sounds are normal. There is no distension. Palpations: Abdomen is soft. Tenderness: There is no abdominal tenderness. There is no guarding or rebound. Musculoskeletal: General: No swelling. Normal range of motion. Right lower leg: No edema. Left lower leg: No edema. Neurological: Mental Status: She is alert and oriented to person, place, and time. Skin: General: Skin is warm and dry. Psychiatric: Mood and Affect: Mood normal. Behavior: Behavior normal. Vitals and nursing note reviewed. Exam conducted with a conference service coordinator present. Vitals: There is no height or weight on file to calculate BMI. BP: 112/66 No LMP recorded. Patient is postmenopausal. ASSESSMENT & PLAN ICD-10-CM 1. Breast cancer screening by mammogram Z12.31 Bilateral screening mammogram Bilateral screening mammogram 2. Wellness examination Z00.00 Pt presents for discussion of osteoporosis and breast reconstruction. Pt does weight bearing exercises. Follows up with oncologist in the next few months for breast exam. Documented by Sangeeta Bennett LPN on behalf of: Danielito Morales DO documented in this encounter [facility] 11-18-2024 Evaluation + Plan note Associated Problem(s): PAD (peripheral artery disease) Continue aspirin and statin. Continue Crestor 5 mg and aspirin 81 mg.Risk factors modification to control blood pressure. Continue walking [facility] 11-18-2024 Evaluation + Plan note Associated Problem(s): Ischemia of both feet Continue aspirin and statin. Continue Crestor 5 mg and aspirin 81 mg.Risk factors modification to control blood pressure. Continue walking [facility] 11-18-2024 Miscellaneous Notes Associated Problem(s): PAD (peripheral artery disease) Continue aspirin and statin. Continue Crestor 5 mg and aspirin 81 mg.Risk factors modification to control blood pressure. Continue walking Associated Problem(s): Ischemia of both feet Continue aspirin and statin. Continue Crestor 5 mg and aspirin 81 mg.Risk factors modification to control blood pressure. Continue walking documented in this encounter [facility] 11-18-2024 History of Presen t illness Narrative Images from the original note were not included. To: KRISTYN DOUGHERTY, SHAREPOINT DEVELOPER-ORDER TRACER HPI: Brigitte High is a 74 y.o. female with Bilateral lower extremity atheroembolic disease I obtained ALDO PVR and CTA with runoff. She has atherosclerotic disease but no significant occlusive disease. No clot burden or clear source that needs interventional treatment. Recommended medical therapy by continuing aspirin Plavix and statin. She would like to stop the Plavix because of multiple bruises. I thought that is reasonable. She will however continue the aspirin and the statin. The discoloration and skin changes in her feet are largely resolved.. Review of Systems: Review of Systems Constitutional: Negative. HENT: Negative. Respiratory: Negative. Cardiovascular: Negative. Gastrointestinal: Negative. Endocrine: Negative. Genitourinary: Negative. Musculoskeletal: Negative. Skin: Negative. Neurological: Negative. Hematological: Negative. Medications: Current Outpatient Medications on File Prior to Visit Medication Sig Dispense Refill calcium carbonate (OS-JAMESON) 600 mg elemental (1,500 mg) tablet Take 1 tablet (600 mg total) by mouth in the morning and 1 tablet (600 mg total) in the evening. Take with meals. clopidogreL (PLAVIX) 75 mg tablet Take 1 tablet (75 mg total) by mouth in the morning. 60 tablet 3 wessph-dywaqtqy-yyhqkjbwzn dis (NEURIVA DE-STRESS) 100-200-10 mg capsule Take 1 tablet by mouth in the morning. ibuprofen (MOTRIN) 600 mg tablet Take 1 tablet (600 mg total) by mouth every 8 (eight) hours as needed. xuykgtor-top-elduw acid-lutein 0.4-250 mg-mcg tablet Take 1 tablet by mouth in the morning. rosuvastatin (CRESTOR) 5 mg tablet Take 1 tablet (5 mg total) by mouth in the morning. 30 tablet 3 TURMERIC ORAL Take 1 tablet by mouth in the morning. No current facility-administered medications on file prior to visit. Past Medical History: Past Medical History: Diagnosis Date Cancer ([facility]) History of arterial disease of lower extremity Venous insufficiency Past Surgical History: Past Surgical History: Procedure Laterality Date BREAST RECONSTRUCTION Bilateral FOOT SURGERY Bilateral HYSTERECTOMY VEIN SURGERY Social and Family History: Social History Socioeconomic History Marital status: Spouse name: Not on file Number of children: Not on file Years of education: Not on file Highest education level: Not on file Occupational History Not on file Tobacco Use Smoking status: Former Types: Cigarettes Smokeless tobacco: Never Tobacco comments: Patient smoked 1PPD [id number] Substance and Sexual Activity Alcohol use: Not on file Drug use: Not on file Sexual activity: Not on file Other Topics Concern Not on file Social History Narrative Not on file Social Drivers of Health Financial Resource Strain: Not on file Food Insecurity: No Food Insecurity (11/18/2024) Hunger Screening Food Insecurity - Worry: Never True Food Insecurity - Inability: Never True Transportation Needs: Not on file Physical Activity: Not on file Stress: Not on file Social Connections: Not on file Interpersonal Safety: Not on file Housing Instability: Not on file No family history on file. Recent Labs: Recent and relative labs were reviewed and interpreted and contributed to the assessment and plan below. Vitals: BP 138/88 (BP Site: Right Arm, BP Postition: Sitting, BP CUFF SIZE: M (9-13 inches)) Pulse 68 Temp 36.2 C (97.1 F) Ht 165.1 cm (5' 5 ) Wt 72.6 kg (160 lb) SpO2 96% BMI 26.63 kg/m Body mass index is 26.63 kg/m . Physical Exam: Physical Exam Constitutional: [...] content normal. Judgment: Judgment normal. Recent testing: CTA and aorta and runoff. PVR Assessment and Plan: Problem List PAD (peripheral artery disease) - Primary Current Assessment & Plan Continue aspirin and statin. Continue Crestor 5 mg and aspirin 81 mg.Risk factors modification to control blood pressure. Continue walking Ischemia of both feet Current Assessment & Plan Continue aspirin and statin. Continue Crestor 5 mg and aspirin 81 mg.Risk factors modification to control blood pressure. Continue walking Brigitte was seen today for follow up to go over ct abdomen and pelvis runoff. Diagnoses and all orders for this visit: PAD (peripheral artery disease) Ischemia of both feet Lexx Diop MD, LARA, RPVI, FSVS, FACS [facility] This note was created with the assistance of a speech recognition program. While intending to generate a timely document that accurately reflects the content of the visit, no guarantee can be provided that every grammatical or spelling mistake has been or will be identified or corrected. Thank you for your understanding. 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 She has strong palpable popliteal pulses. She has strong family history of abdominal arctic aneurysm. The plan is to start aspirin Plavix and Statin. We will alsoget a CTA abdomen pelvis with runoff. 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 She has strong palpable popliteal pulses. She has strong family history of abdominal arctic aneurysm. The plan is to start aspirin Plavix and Statin. We will alsoget a CTA abdomen pelvis with runoff. documented in this encounter [facility] 10-21-2024 History of Presen t illness [...] mouth every 8 (eight) hours as needed. hlflbkvy-gpg-nvqff acid-lutein 0.4-250 mg-mcg tablet Take 1 tablet by mouth in the morning. TURMERIC ORAL Take 1 tablet by mouth in the morning. calcium carbonate (OS-JAMESON) 600 mg elemental (1,500 mg) tablet Take 1 tablet (600 mg total) by mouth in the morning and 1 tablet (600 mg total) in the evening. Take with meals. zpnaxz-hranbtad-qocvdfdgys dis (NEURIVA DE-STRESS) 100-200-10 mg capsule Take 1 tablet by mouth in the morning. No current facility-administered medications on file prior to visit. 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 She has strong palpable popliteal pulses. She has strong family history of abdominal arctic aneurysm. The plan is to start aspirin Plavix and Statin. We will alsoget a CTA abdomen pelvis with runoff. Brigitte was seen today for pad (peripheral artery disease) [place] i73.9] please sc. Diagnoses and all orders for this visit: Ischemia of both feet ([facility]) PAD (peripheral artery disease) [place] - [facility] [place], [place] Arterial embolism [place] Lexx Diop MD, LARA, RPVI, FSVS, FACS [facility] This note was created with the assistance of a speech recognition program. While intending to generate a timely document that accurately reflects the content of the visit, no guarantee can be provided that every grammatical or spelling mistake has been or will be identified or corrected. Thank you for your understanding. documented in this encounter [facility] 10-18-2024 Note Patient Education Urology Cystoscopy [...] including vitamins, herbs, eye drops, creams, and pozy-elj-rmbzuty medicines. ??? Any problems you or family [...] tells you to take them. ??? Taking mlcz-gbb-avycupc medicines, vitamins, herbs, and supplements. Tests You [...] these instructions at home: Medicines ??? Take qvre-duo-dihovye and prescription medicines only as told by [...] (biopsy) during your (more content not included)... [facility] 09-21-2024 Telephone encounter Note I sent amitiza to [facility]. It's about $40 per month with goodRX if insurance won't cover it. [facility] 09-21-2024 Miscellaneous Notes I sent amitiza to [facility]. It's about $40 per month with good[employer] if insurance won't cover it. documented in this encounter [facility] 09-21-2024 Instructions Christi Jones APRN.CNP - 09/21/2024 [...] of your pelvic floor- please call or Membersuite message with an update in 1 month. We will see you in the office in 4 months. documented in this encounter [facility] 09-21-2024 History of Presen t illness Narrative Images from the original note were not included. [facility] DATE: [...] and underwent resection Spring 2023 (Dr Recinos [place]). Was told it is regrowing already, has [...] HISTORY OF ACDF PAST SURGICAL HISTORY OF 2014 T&A and uvulectomy for FRANC XCAPSL CTRC [...] ) RTC 4 months Christi Jones APRN.CNP [facility] [address] [place] [address] [place] [id number] Office: [phone] documented in this encounter [facility] 09-13-2024 Telephone encounter Note Images from the original note were not included. [facility] 09-13-2024 Miscellaneous Notes Images from the original note were not included. documented in this encounter [facility] 03-04-2024 Note [facility] Medical Records Department [address] [place] [address] History Physical Exam 03/04/2415 MR#: [id number] Acct: [id number] Name: BRIGITTE HIGH Rep #: [id number] : 1950 73 From: Jadyn Chavez MD PCP: Kristyn Dougherty NP-C Status:REG [facility] Location: [place] [address] History and Physical Date of Admission: 03/04/24 The patient is examined and there are no changes from the H P dated 02/12/2024. The patient presents for right breast lift for symmetry and revision left breast reconstruction. Informed consent is obtained and patient is marked in the preop holding area. Assessment Plan Assessment/Plan (1) Breast asymmetry between ewiiaapaayp breast and reconstructed breast: PLAN: Patient for right breast lift for symmetry (2) Painful periwound skin: PLAN: Patient for revision left breast reconstruction (3) Ptosis of right breast: (4) Status post left breast reconstruction: (5) History of breast cancer in adulthood: 03/04/24 0718 Cosigner Signature (if applicable): CC: DOUG Dougherty; Dr. Jadyn Chavez MD Signed [facility] 01-16-2024 History of Presen t illness Narrative Patient ID: Brigitte High is a 73 y.o. female. Referring Physician: No referring provider defined for this encounter. Primary Care Provider: Kristyn Dougherty, LEDY-CATHY Visit Type: Follow Up Subjective HPI I [...] followed by reconstruction -It was ER neg, MT neg, and PBC3pyy neg -She had received post-op chemotherapy but is unable to recall the names of these agents -She did not need radiation therapy -The implant did rupture at one point, and she needed this to be replaced - here for interval followup-moved to [place] -[place] [place]--breasts are heterogeneously dense which may obscure small [...] for next year -she went on a [employer] sponsored bus tour of [place]--she said she had to share a room [...] fractured patella -while visiting a friend in [place] in January 2023--she saw her friend returning home, and ran through the house intending to open the front gate--she tripped on a landing and fractured her left kneecap--neither her friend nor her friend's wanted to take her to the ED so when she returned to [place] she went to the ER and had xrays done confirming fractured left patella--she worse a knee stabilizer/brace Problem List Items Addressed This Visit None Visit Diagnoses Codes Malignant neoplasm of central portion of right breast in female, estrogen receptor negative (Multi) - Primary C50.111, Z17.1 Relevant Orders Clinic Appointment Request Follow Up; CARLITO HORVATH; [facility] MEDONC1 CBC and Auto Differential Comprehensive metabolic panel Cancer Antigen 27-29 Iron deficiency E61.1 Relevant Orders Iron and TIBC Ferritin Carlito Horvath MD documented in this encounter [facility] Work Phone: 01-16-2024 Instructions Carlito Horvath MD - 01/16/2024 10:40 AM EDT See you again in 1 year documented in this encounter [facility] Work Phone: 11-04-2023 Evaluation + Plan note Diagnostic Tests PendingUrine Culture 11/04/23 [facility] 10-06-2023 Hospital Discharg e instructions Patient Education [...] provider. Document Revised: 11/22/2021 Document Reviewed: 11/22/2021 Elsevier Patient Education 2022 nothingGrinder. Follow Up Care 09/09/2023 14:36:29 With:JORJE FIGUEROA, Star Villavicencio, URL Address: [facility] [address], [place] [address] [phone] When: Unknown Comments:toro call pt to review updated path [facility] 08-25-2023 Hospital Discharg e instructions Patient Education 08/25/2023 13:11:13 Urinary Tract Infection, Adult, Veaa-dy-Nyeg Urinary Tract Infection, Adult A urinary tract [...] Follow these instructions at home: Medicines Take xpxv-lfy-nqatohj and prescription medicines only as told by [...] provider. Document Revised: 02/23/2021 Document Reviewed: 02/23/2021 [employer] Patient Education 2022 nothingGrinder. Follow Up Care 05/27/2023 09:36:14 With:JORJE FIGUEROA, Star Villavicencio, URL Address: [facility] [address], [place] [address] [phone] When: Unknown Comments:sched cysto/UD [facility] 03-28-2023 Note HNO ID: [id number] Author: Lawrence Medina MD Service: ? Author [...] forward with replacement surgery. Lawrence Medina MD [facility] 03-28-2023 History of Presen t illness Narrative [...] MD documented in this encounter [facility] 03-25-2023 Note HNO ID: [id number] Author: Gray Mcdonald RT(R) Service: Radiology Author [...] RT Jennifer(R) March 25, 2023 1:36 PM [facility] 11-28-2022 Note PROCEDURE: XR KNEE L T [...] authenticated by: ILDEFONSO HO Date: 2022-11-28 18:01 [facility] 12-05-2021 History of Presen t illness Narrative [...] complaints of dyspnea (Reports SOB on exertion) [facility] Work Phone: 10-29-2021 History of Presen t [...] complaints of dyspnea (Reports SOB on exertion) [id number]-[id number] Work Phone: 04-20-2021 History of Presen t [...] in March [address] Simms at [employer] that demonstrated melanosis coli, two 2-3 mm [...] 1 glass of wine daily. No illicits. [facility] Work Phone: 03-31-2021 History of Presen [...] experiencing symptoms. No associated symptoms are reported. [place] [id number] Work Phone: 02-22-2021 History of Presen t illness Narrative BRIGITTE HIGH presents with complaints of joint pain, described as aching On a scale of 1 to 10, the patient rates the pain as 7 (Reports h/o generalized joint pain. Worsening x2 weeks)Associated symptoms include joint stiffness, morning stiffness and fatigue, but no fever and no chills.joint swelling [place] [id number] Work Phone: 02-20-2021 History of Presen t illness Narrative BRIGITTE HIGH presents with complaints of joint pain, described as aching On a scale of 1 to 10, the patient rates the pain as 7 (Reports h/o generalized joint pain. Worsening x2 weeks)Associated symptoms include joint stiffness, morning stiffness and fatigue, but no fever and no chills.joint swelling [place] 2249W Work Phone: 02-17-2021 History of Presen t [...] Hot shower in AM.low back pain into [facility] Work Phone: 12-31-2020 History of Presen t [...] Hot shower in AM.low back pain into [facility] [employer] Work Phone: 12-28-2020 History of Presen [...] AM.low back pain into butthaving bad constipation [id number] [id number] Work Phone: Evaluation + Plan note No data available for this section [facility] Evaluation note Diagnosis Breast pain- Primary Mastodynia Acquired breast deformity Other specified disorders of breast Capsular contracture of breast implant, initial encounter [facility] Diagnosis Onset Date Resolution Status Bronchitis acute [facility] Work Phone: Evaluation note* Diagnosis Malignant neoplasm [...] left patella, sequela documented in this encounter [facility] Work Phone: Evaluation note* Diagnosis Constipation, unspecified constipation type- Primary History of colon polyps Personal history of colonic polyps [facility] Ischemia of both feet- Primary PAD (peripheral artery disease) Unspecified peripheral vascular disease Arterial embolism (CMS-HCC) Embolism and thrombosis of unspecified artery [facility] Diagnosis Ischemia of both feet- Primary PAD (peripheral artery disease) Unspecified peripheral vascular disease Arterial embolism (CMS-HCC) Embolism and thrombosis of unspecified artery PAD (peripheral artery disease)- Primary Unspecified peripheral vascular disease Ischemia of both feet [facility]* Diagnosis Breast cancer screening by mammogram Wellness examination [facility] The patient is [...] has living will. Patient has healthcare POA. [id number] Work Phone: History of Present illness NarrativePatient [...] and would like to become [facility] Work Phone: Hiscfra of Present illness NarrativePatient here for recheck of topical estrogen Rx use for severe atrophic vulvovaginitis. Patient stated she had a lot of spotting with using the applicator, she started having hot flashes and headaches and had to stop the topical estrogen. She has no further bleeding since stopping the medication. 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 [facility] Work Phone: History of Present illness Narrative* Hand Swelling * C/o swelling to 1st finger and middle finger x1 week. * C/o joint aching. * Hands felt tight while wearing gloves. * Took OTC Diurex and Aspercreme, voiced mild improvement. [id number] [id number] Work Phone: History of Present illness Narrative* [...] has living will. Patient has healthcare POA. LZ-ZTFF-Isis 6190R Work Phone: History of Present illness Narrative* [...] needed * All questions answered * . [facility] Work Phone: Hospital Discharge instructions No data available for this section [facility] InstructionsNot on filedocumented in this encounter [facility] filedocumented in this encounter [facility] No data available for this section [facility] Summary Purpose Family History No Family [...] Documents on File Type Date Recorded Patient Hot Metal Charger Expl anation Living Will 10/14/2014 Chief Complaint [...] gastro appt * had colonoscopy in 2016 [facility] * weight gain * eating healthy [...] in 80 - due to AUB * 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 DATE CREATED AUTHOR AUTHOR'S ORGANIZ ATION [facility] [facility] DATE CREATED AUTHOR AUTHOR'S ORGANIZ ATION [facility]/05/2022 [facility] DATE CREATED AUTHOR AUTHOR'S ORGANIZ ATION 01/21/2023 [facility] DATE CREATED AUTHOR AUTHOR'S ORGANIZ ATION 02/12/2023 [facility] DATE CREATED AUTHOR AUTHOR'S ORGANIZ ATION 02/12/2023 [facility] DATE CREATED AUTHOR AUTHOR'S ORGANIZ ATION 10/17/2023 [facility] DATE CREATED AUTHOR AUTHOR'S ORGANIZ ATION 10/21/2023 [facility] DATE CREATED AUTHOR AUTHOR'S ORGANIZ ATION 01/20/2024 [facility] DATE CREATED AUTHOR AUTHOR'S ORGANIZ ATION 01/21/2024 [facility] DATE CREATED AUTHOR AUTHOR'S ORGANIZ ATION 06/04/2024 [facility] DATE CREATED AUTHOR AUTHOR'S ORGANIZ ATION 10/19/2024 [facility] DATE CREATED AUTHOR AUTHOR'S ORGANIZ ATION 11/24/2024 [facility] Specialists EPIC Source Comments (unrecognize d section and content) In the event this informatio n is protected by the Federal Confidentiality of Alcohol and Drug Abuse Patient Records regulations: The Federal rules restrict any use of the information to criminally investigate or prosecute any alcohol or drug abuse patient.[facility] Center[facility] the event this information is protected by the Federal Confidentiality of Alcohol and Drug Abuse Patient Records regulations: The Federal rules restrict any use of the information to criminally investigate or prosecute any alcohol or drug abuse patient.[facility] Center[facility] the event this information is protected by the Federal Confidentiality of Alcohol and Drug Abuse Patient Records regulations: The Federal rules restrict any use of the information to criminally investigate or prosecute any alcohol or drug abuse patient.[facility] CenterIn the event this information is protected by the Federal Confidentiality of Alcohol and Drug Abuse Patient Records regulations: The Federal rules restrict any use of the information to criminally investigate or prosecute any alcohol or drug abuse patient.[facility] Reason for Visit (unrecogniz ed section and content) Reason Comments New Patient Evaluation Patient states ramires s possible implant leak. Reason Comments Follow-up Reason Comments Consult Constipation Constipation, pain l ower back Reason Onset Date Comments Refill Request 09/21/2024 Reason Comments PAD (peripheral artery disease) ([facility] ) I73.9] Please sc Specialty Diagnoses / Procedures Referred By Contac t Referred To Contact Vascular Surgery Diagnoses PAD (peripheral artery disease) Kristyn Dougherty APRN-ORDER TRACER [address] [place] [address] Phone: tel:[phone] fax: [facility] [address] [place] [address] Phone: tel:[phone] fax: Referral ID Status Reason Start Date Expiration Date Visits Requested Visits Authorized [id number] Pending Review Specialty Services Required 09/30/2024 09/30/2025 1 1 Reason Comments Follow up to go over Ct abdo men and pelvis runoff Follow up to go over Ct abdomen and pelv is runoff Reason Comments [facility] Visit Care Teams (unrecognized sec tion and content) Community Health Specialist Relationship Specialty Start Date End Date Jing Campbell DO [facility] [place] [address] PCP - General 03/28/15 Team Status: Active [...] December 21, 2023 End: December 21, 2023 Community Health Specialist Relationship Specialty Start Date End Date Kristyn Dougherty APRN-CNP [address] [place] [id number] PCP - General 12/10/22 [place] [address] [place] [phone] Consulting Physician Hematology and Oncology 09/16/23 Community Health Specialist Relationship Specialty Start Date End Date Kristyn Dougherty CNP [address] [place] [phone] PCP - General Internal Medicine 09/13/24 Community Health Specialist Relationship Specialty Start Date End Date Kristyn Dougherty CNP [address] [place] [phone] PCP - General Internal Medicine 09/13/24 Community Health Specialist Relationship Specialty Start Date End Date Kristyn Dougherty CNP [address] [place] [phone] PCP - General Internal Medicine 09/13/24 Community Health Specialist Relationship Specialty Start Date End Date Kristyn Dougherty APRN-CNP [address] [place] [phone] PCP - General Family Medicine 10/25/24 Goals (unrecognized section and content) Goals may [...] BE BASED ON THE PRIMARY CLINICAL RECORDS. [facility]. provides no warranty or guarantee of the accuracy or completeness of information in this document.
--- NOTE | 2024-12-24 07:05 | MM_ITS ---
Patient Name: SALOMÓN ROMERO MR#: [id number] : 1950 Exam Date: 12/24/2024 Ordering Doctor: DR TANIA ARREDONDO . RADIOLOGY REPORT PROCEDURE: MM TOMOSYNTHESIS SCREENING RT COMPARISON: MM TOMOSYNTHESIS SCREENING RT, 12/24/2023. MG MAMM DX 3D RT CAD, 12/18/2022. MG MAMM SCREEN RT 3D CAD, 11/20/2021. MG MAMM SCREEN RT 3D CAD, 07/15/2020. INDICATIONS: Screening Calculator Name NCI Breast Cancer Risk Assessment Tool 5 Year Breast Cancer Risk n/a% Lifetime Breast Cancer Risk n/a% Personal Breast Cancer Yes, 48, mastectomy left Personal Ovarian Cancer No Treatments None Family Cancers Sister with colon cancer at age 54. LOCATION: [facility] BREAST COMPOSITION: The breasts are heterogeneously dense,which may obscure small masses. FINDINGS: DIAGNOSTIC CATEGORY 2--BENIGN FINDING: RECOMMENDATIONS: ROUTINE MAMMOGRAM AND CLINICAL EVALUATION IN 12 MONTHS. PLEASE NOTE: A NORMAL MAMMOGRAM DOES NOT EXCLUDE THE POSSIBILITY OF BREAST CANCER. A CLINICALLY SUSPICIOUS PALPABLE LUMP SHOULD BE BIOPSIED. RIGHT BREAST: No significant suspicious finding. Benign-appearing calcifications are present. Dictated by: Raul Suarez MD on 12/24/2024 at 09:59 Approved by: Raul Suarez MD on 12/24/2024 at 10:08
== END 2024-12-24 06:48 | disposition home or self-care (01) ==
LOC: MAMMO 06:48
PROVIDERS: PCP Nurse Practitioner Family; Visit Provider Obstetrics & Gynecology
DX: Z12.31 Encounter for screening mammogram for malignant neoplasm of breast (principal); Z80.0 Family history of malignant neoplasm of digestive organs
CPT/HCPCS: 77063; 77067

== ENCOUNTER 2025-02-11 09:48 | Outpatient (OUT) | payer MEDICARE, OTHER, SELFPAY ==
--- OUTSIDE RECORDS SUMMARY | 2024-12-27 04:48 | XMS_ITS ---
Author Organization [facility] in [place] Address [address] [place] [address] Care Team Providers Care Postmaster Name Role Phone Kristyn Zamora Primary Care Provider REASON FOR VISIT mammo results Encounters Encounter Location Date Provider Diagnosis [facility] [address] [place] [address] 12/27/2024 Kristyn Zamora Plan Of Treatment No Information Progress Notes * Wanda HIGHOB: [birth year] (74 yo F)Acc No.[id number]:12/27/2024 Patient: Brigitte CALLAHAN :1950 A ge:74 Y S ex:Female Address:[address] [place] [phone] * true * Date: Generated for Michellei ng/Fachiarag/eTransmitting on: 0 02/11/2025 09:50 AM EDT
--- OUTSIDE RECORDS SUMMARY | 2025-02-08 04:17 | XMS_ITS ---
Author Organization [facility] in [place] Address [address] [place] [address] Care Team Providers Care Plate Former Name Role Phone Kristyn Zamora Primary Care Provider [phone] REASON FOR VISIT Due for US Encounters Encounter Location Date Provider Diagnosis [facility] [address] [place] [address] 02/08/2025 Kristyn Zamora Left thyroid nodule E04.1 Assessments Encounter Date Diagnosis (ICD Code) Assessment Notes Treatment Notes Treatment Clinical Notes Section Notes 02/08/2025 Left thyroid nodule (ICD-10 - E04.1) Plan Of Treatment Pending Test Test Name Order Date US THYROID 02/08/2025 Progress Notes * Wanda ROMEROOB: 950 (74 yo F)Acc No.[id number]:02/08/2025 Patient: Brigitte CALLAHAN :1950 A ge:74 Y S ex:Female Address:[address] [place] [phone] Subjective: * Chief Complaints: * D ue for US * Medical History: * Surgical History: * Hospitalization/Major Diagno stic Procedure: * Medications: Objective: * Vitals: * Physical Examination: Assessment: * Assessment: 1. L eft thyroid nodule - E04.1 (Primary) Plan: * Treatment: * Procedure Codes: * true * Date: Generated for Printi ng/Faxing/eTransmitting on: 0 02/11/2025 09:50 AM EDT
--- OUTSIDE RECORDS SUMMARY | 2025-02-08 06:15 | XMS_ITS ---
Author Organization [facility] in [place] Address [address] [place] [address] Care Team Providers Care Ham Sawyer Name Role Phone Kristyn Zamora Primary Care Provider Allergies Allergen (clinical drug ingredient) Drug/Non Drug Allergy documented on EMR Reaction Allergy Type Onset Date Status [place] Mold (uncoded) Unknown Allergy Active acetaminophen Tylenol Ringing ears Drug Allergy Active Cat dander Cat Dander Unknown Allergy Active Cannabis sativa whole extract Marijuana (Cannabis Sativa) Swelling Drug Allergy Active Spider Bites Edema/ Swelling Allergy A ctive REASON FOR VISIT stung by several yellow jacket- sick, stung on both arms Medications Medication SIG (Take, Route, Frequency, Duration) Notes Start Date End Date Status Rosuvastatin Calcium 20 MG 1 tablet Orally Once a day Active Ondansetron HCl 4 MG 1 tablet Orally BID prn for 7 days 02/08/2025 Active Turmeric Active predniSONE 20 MG 2 tablet Orally Once a day for 3 days 02/08/2025 Active Neuriva - as directed Orally A ctive Bimatoprost 0.03 % INSTILL 1 DROP INTO BOTH EYES IN THE EVENING ONCE A DAY for 30 Active Hair Skin & Nails Ac tive Ibuprofen 600 MG TAKE 1 TABLET BY ADONIS TH EVERY 6 TO 8 HOURS NEEDED for 25 PRN Active Multi Vitamin - 1 tablet Orally Once a day With Iron Active Social History Tobacco Use: Social History Observation Description Date Details (start date - stop date) Former Smoker NA - NA Tobacco Use/Smoking Question Answer Notes Patient is a former smoker How long has it been since you last smoked? > 10 years AUDIT-C (Standard) Question Answer Notes Did you have a drink containing alcohol in the p ast year? No Points 0 Interpretation Negative Vital Signs Weight 153.8 lbs 02/08/2025 Height 65 in 02/08/2025 Blood pressure systolic 134 mm Hg 02/09/20 25 Blood pressure diastolic 80 mm Hg 025 BMI 25.59 kg/m2 02/08/2025 Encounters Encounter Location Date Provider Diagnosis [facility] [address] [place] [address] 02/08/2025 Kristyn Zamora Wasp sting T63.461A Assessments Encounter Date Diagnosis (ICD Code) Assessment Notes Treatment Notes Treatment Clinical Notes Section Notes 02/08/2025 Wasp sting (ICD-10 - T63.461A) rest push fluids otc allergy meds ok for off work note Plan Of Treatment Medication Medication Name Sig Start Date Stop Date Notes Ondansetron HCl 4 MG 1 tablet Orally BID prn for 7 days predniSONE 20 MG 2 tablet Orally Once a day for 3 days Treatment Notes Assessment Notes Wasp sting rest push fluids otc allergy meds ok for off work note Next Appt Details Follow Up: prn, Reason: Progress Notes * Wanda HIGHOB: [birth year] (74 yo F)Acc No.[id number]:02/08/2025 Progress Note Patient: Brigitte CALLAHAN Provider: Johnathan Zamora ([facility]), ENVIRONMENTAL HEALTH AND SAFETY LEADER :1950 A ge:74 Y S ex:Female Date:02/08/2025 Address:[address] [place], [place] [id number] Check In:10:12 AM ESTCheck O ut:10:34 AM EST Subjective: * Chief Complaints: * 1 . Stung by several yellow jacket- sick. 2. Stung on both arms. * HPI: G eneral: happened Friday stung on both arms welts feeling nauseous today not feeing great no breathing difficulties took some allergy meds. * ROS: G eneral/Constitutional: Feeling Poorly a dmits. F ever d enies. H eadache d enies. W eight loss d enies. O phthalmologic: Discharge d enies. E ye Pain d enies. I tching and redness d enies. E NT: Nasal discharge d enies. N elmer congestion d enies.�Sore throat d enies. C ardiovascular: Chest tightness/ heavy pressure d enies. R apid heart rate d enies. S welling of extremities d enies. C hest pain d enies. � R espiratory: Productive cough d enies. C hest pain d enies. C ough d enies. S hortness of breath d enies. W heezing d enies. � G astrointestinal: Abdominal pain d enies. C onstipation d enies. D ecreased appetite d enies. D iarrhea d enies. N ausea a dmits. V omiting d enies. G enitourinary: Urinary incontinence d enies. P ainful urination d enies. M usculoskeletal: Back pain d enies. N jazmyne pain d enies. M uscle aches d enies. S kin: Patient admits s everal wasp stings to arms, painful, redness, itchy. R nancy d enies. S kin lesion(s) d enies. * Active Problem List Z85.3 History of breast ca ncer Modified On:11/27/2022 Status:confirmed M54.9 Back pain Modified On:11/27/2022 Status:confirmed K63.5 Colonic polyp Modified On:11/27/2022 Status:confirmed R07.81 Rib pain on left willis e Modified On:11/27/2022 Status:confirmed E04.1 Left thyroid nodule Modified On:11/27/2022 Status:confirmed L70.0 Cystic acne Modified On:11/27/2022 Status:confirmed M53.9 Cervical dysfunction Modified On:11/27/2022 Status:confirmed Z87.891 Ex-smoker for more t banda 1 year Modified On:11/27/2022 Status:confirmed L03.039 Paronychia of great toe Modified On:11/27/2022 Status:confirmed R05.3 Chronic cough Modified On:07/17/2023U Status:confirmed E66.3 Overweight Modified On:09/11/2023 Status:confirmed R30.0 Dysuria Modified On:07/17/2023 Status:confirmed R53.83 Fatigue Modified On:11/27/2022 Status:confirmed K21.9 Gastro-esophageal re flux disease without esophagitis Modified On:10/15/2022 Status:confirmed M19.90 Unspecified osteoart hritis, unspecified site Modified On:10/15/2022 Status:confirmed M19.90 Arthritis Modified On:10/15/2022 Status:confirmed R89.9 Unspecified abnormal finding in specimens from other organs, systems and tissues Modified On:09/16/2023 Status:confirmed M81.0 Osteoporosis Modified On:12/29/2023 Status:confirmed I96 Black toe Modified On:09/08/2024 Status:confirmed I73.9 Peripheral artery di sease Modified On:09/27/2024 Status:confirmed I99.8 Ischemia of both low er extremities Modified On:11/19/2024 Status:confirmed * Medical History: L eft thyroid nodule, Cervical dysfunction, Chronic cough, Overweight, Paronychia of great toe, Fatigue, Rib pain on left side, Back pain, Colonic polyp, Dysuria, Ex-smoker for more than 1 year, History of breast cancer, Cystic acne. * Surgical History: B ack Surgery , Neck Surgery , Left Side Masectomy with Reconstruction , Bilateral Carpal Tunnel Surgery , [place] Teeth Extraction , Cataract Extraction- Bilateral , breast reduction 03/20. * Family History: F ather: , Cerebral vascular accident. M other: , Heart Disease, hypertension, diagnosed with Unspecified essential hypertension, Unspecified heart disease. S ister(s): alive, colon cancer, dementia. 2 sister(s) . 1 son(s) , 1 daughter(s) - healthy. . * Social History: T obacco Use: T obacco Use/Smoking P atient is a f ormer smoker H ow long has it been since you last smoked?�> 10 years D rug/Alcohol: A GARRETT-C (Standard) D id you have a drink containing alcohol in the past year? N o P oints 0 I nterpretation N egative * Medications: T aking Bimatoprost 0.03 % Solution INSTILL 1 DROP INTO BOTH EYES IN THE EVENING ONCE A DAY , Taking Hair Skin & Nails , Taking Ibuprofen 600 MG Tablet TAKE 1 TABLET BY MOUTH EVERY 6 TO 8 HOURS NEEDED , Notes to Pharmacist: PRN, Taking Multi Vitamin - Tablet 1 tablet Orally Once a day , Notes to Pharmacist: With Iron, Taking Neuriva(Misc Natural Products) - Capsule as directed Orally , Taking Rosuvastatin Calcium 20 MG Tablet 1 tablet Orally Once a day , Taking Turmeric , Medication List reviewed and reconciled with the patient * Allergies: T ylenol: Ringing ears - Side Effects - Criticality High, Cat Dander: Allergy, [place] Mold: Allergy, Spider Bites: Edema/ Swelling, Marijuana (Cannabis Sativa): Swelling. Objective: * Vitals: W t:153.8lbs, Ht: 65 in, BP:134/80mm Hg, BMI:25.59Index, Ht-cm: 165.1 cm, Wt-k.76 kg. * Examination: G eneral Examinations: GENERAL APPEARANCE: a lert and oriented, i n no acute distress. EYES: c onjunctiva normal, sclera non-icteric. NOSE: n ormal external appearance. THROAT: n ormal. LUNGS: c lear to auscultation bilaterally. CARDIO: r egular rate and rhythm, S1, S2 normal. ABDOMEN: s oft, nontender. MUSCULOSKELETAL: G ait and station normal. SKIN: s everal wasp bites, redness, warmth, swelling. � Assessment: * Assessment: 1. W asp sting - T63.461A (Primary) Plan: * Treatment: * Preventive Medicine: Screenings/Counseling: B ID ACTION PLAN Above Normal BMI Follow-up D ietary management education, guidance, and counseling * Follow Up: p rn * * Electronically signed by Gunjan Zamora , CLAY, SPEECH LANGUAGE PATHOLOGIST ASSISTANT.ENVIRONMENTAL HEALTH AND SAFETY LEADER.[id number] on 02/09/2025 at 10:44 AM EDT Sign off status: Completed Visit Status: C HK (Check Out) true * Provider: Johnathan Zamora ([facility]), ENVIRONMENTAL HEALTH AND SAFETY LEADER Date: 02/08/2025 Generated for Ralph de la o/Mikayla/eTransmitting on: 02/11/2025 09:50 AM EDT History and Physical Notes * HPI (History of Present Illness) Category Sub-Category Detail Notes Category Not es General happened Friday stung on both arms welts feeling nauseous today not feeing great no breathing difficulties took some allergy meds Examination Category Sub-Category Detail Notes Category Not es General Examinations GENERAL APPEARANCE: alert a nd oriented, in no acute distress EYES: conjunctiva normal, sclera non-icteric EARS: NOSE: normal external appe arance THROAT: normal CARDIO: regular rate and rhy thm, S1, S2 normal LUNGS: clear to auscultatio n bilaterally ABDOMEN: soft, nontender SKIN: several wasp bites, redness, warmth, swelling BACK: MUSCULOSKELETAL: Gait and station nor mal LYMPH NODES:
--- OUTSIDE RECORDS SUMMARY | 2025-02-10 05:00 | XMS_ITS ---
Author Organization [facility] Address [address] [place] [address] Care Team Providers Care Supervisor Car And [employer] Name Role Phone Dr. Fred Recinos Primary Care Provider [phone] Allergies Allergen (clinical drug ingredient) Drug/Non Drug Allergy documented on EMR Reaction Allergy Type Onset Date Status Mold Unknown Allergy Active Dust Mites Unknown Allergy Active Cat dander Cat Dander Unknown Allergy Active REASON FOR VISIT Post-phlebectomy sclerotherapy Medications Medication SIG (Take, Route, Frequency, Duration) Notes Start Date End Date Status Cephalexin 500 MG TAKE 2 CAPSULES BY MOUTH TWICE A DAY FOR 10 DAYS Oral for 10 Days Not-Taking Estradiol 0.1 MG/GM APPLY PEA SIZED AMOUNT TO VULVA TWICE DAILY FOR 2 WEEKS THEN TWICE A WEEK FOR MAINTENANCE Vaginal for 90 Not-Taking Phentermine HCl 37.5 MG TAKE ONE TABLET BY MOUTH DAILY IN THE MORNING BEFORE BREAKFAST Oral for 30 Days Not-Taking Mupirocin 2 % APPLY 1 APPLICATION TOPICALLY TWICE A DAY FOR 5 DAYS External for 22 Days Not-Taking Clopidogrel Bisulfate 75 MG TAKE 1 TABLE T (75 MG TOTAL) BY MOUTH IN THE MORNING Oral for 60 Days Not-Taking GaviLyte-G 236 GM Oral for 1 N ot-Taking Cefdinir 300 MG Oral for 10 No t-Taking methylPREDNISolone 4 MG TAKE 6 TABLETS O N DAY 1 DIRECTED ON PACKAGE AND DECREASE BY 1 TAB EACH DAY FOR A TOTAL OF 6 DAYS Oral for 6 Not-Taking Spironolactone 50 MG Oral for 90 Not-Taking Clindamycin Phosphate 1 % APPLY TO FACE EVERY DAY External for 120 Not-Taking Rosuvastatin Calcium 5 MG TAKE 1 TABLET (5 MG TOTAL) BY MOUTH IN THE MORNING Oral for 30 Days Active Cephalexin 500 MG Oral for 10 Not-Taking Doxycycline Hyclate 100 MG TAKE 1 CAPSUL E BY MOUTH TWICE DAILY WITH FOOD AND WATER. DO NOT LAY FLAT FOR 1 HOUR AFTER TAKING Oral for 30 Not-Taking Azithromycin 250 MG Oral for 5 Not-Taking Diclofenac Sodium 75 MG TAKE 1 TABLET BY MOUTH TWICE A DAY Oral for 30 Not-Taking Iron 28 MG 1 tablet Orally Once a day for 30 day(s) 09/05/2022 Active Baby Aspirin Active Bimatoprost 0.03 % APPLY 1 INCH TO AFFECTED EYE EVERYDAY AT BEDTIME External for 30 Active Ibuprofen 600 MG Oral for 25 A ctive Multivitamin - 1 tablet Orally Once a day for 30 day(s) 09/05/2022 Active Prescription grade compression stockings 20 - 30mmHg as directed thigh high Daily Active Vital Signs Blood pressure systolic 122 mm Hg 02/11/20 25 Blood pressure diastolic 80 mm Hg 025 Heart Rate 80 /min 02/10/2025 Height 65 in 02/10/2025 Weight 150 lbs 02/10/2025 BMI 24.96 kg/m2 02/10/2025 Oximetry 96 % 02/10/2025 Encounters Encounter Location Date Provider Diagnosis [facility] [address] [place] [address] 02/10/2025 Fred Recinos Varicose veins of right lower extremity with inflammation I83.11 and Varicose veins of left lower extremity with inflammation I83.12 Assessments Encounter Date Diagnosis (ICD Code) Assessment Notes Treatment Notes Treatment Clinical Notes Section Notes 02/10/2025 Varicose veins of right lower extremity with inflammation (ICD-10 - I83.11) 02/10/2025 Varicose veins of left lower extremity with inflammation (ICD-10 - I83.12) Plan Of Treatment Next Appt Details Follow Up: for more scleroth erapy, Reason: Provider Name:Fred Recinos, 02/24/2025 09:00:00 AM, [address], [place], [address], Procedure Notes * Category Sub-Category Detail Notes Sclerotherapy Sclerotherapy The nature of sc lerotherapy and its risks and benefits were reviewed and discussed with the patient at length. All questions were answered and the patient wishes to proceed with the procedure. Under direct vision, the varicosities of the bilateral anterior, medial, lateral, and posterior thighs and lower legs were injected with glycerin. This agent was used in order to minimize hyperpigmentation and inflammatory changes in order to acheive optimal patient results. Cotton balls and tape were placed on the injection sites. The patient tolerated the procedure well, and there were no operative complications. This procedure was performed by Ebonie Davis CNP Progress Notes * Jody HIGHLenOB: [birth year] (74 yo F)Acc No.[id number]:02/10/2025 Sclerotherapy Patient: Brigitte CALLAHAN Provider: Joby Recinos M.D. :1950 A ge:74 Y S ex:Female Date:02/10/2025 Address:[address] [place], [place] [address] Subjective: * Chief Complaints: * 1 . Post-phlebectomy sclerotherapy. * HPI: S clerotherapy: Sclerotherapy Deacon High presents to the office for follow up after her ambulatory phlebectomy. She notes that she has some tenderness at her incision sites along with some subcutaneous hematomas. She denies any drainage or redness at her incision sites. She states that she wishes to proceed with chemical ablation of her residual symptomatic varicosities. The nature of chemical ablation, and its risks and benefits were reviewed and discussed with her at length. All questions were answered and she wishes to proceed with the chemical ablation. * Medical History: A rthritis, Chronic Acne , Eye Lash growth , Varicose veins, LT breast cancer s/p reconstruction and chemotherapy, Urethral caruncle. * Medications: T aking Prescription grade compression stockings 20 - 30mmHg as directed thigh high Daily , Taking Baby Aspirin , Taking Ibuprofen 600 MG Tablet Oral , Taking Bimatoprost 0.03 % Solution APPLY 1 INCH TO AFFECTED EYE EVERYDAY AT BEDTIME External , Taking Multivitamin - Tablet 1 tablet Orally Once a day , Taking Iron 28 MG Tablet 1 tablet Orally Once a day , Taking Rosuvastatin Calcium 5 MG Tablet TAKE 1 TABLET (5 MG TOTAL) BY MOUTH IN THE MORNING Oral , Not-Taking Doxycycline Hyclate 100 MG Capsule TAKE 1 CAPSULE BY MOUTH TWICE DAILY WITH FOOD AND WATER. DO NOT LAY FLAT FOR 1 HOUR AFTER TAKING Oral , Not-Taking Cephalexin 500 MG Capsule Oral , Not- Taking Diclofenac Sodium 75 MG Tablet Delayed Release TAKE 1 TABLET BY MOUTH TWICE A DAY Oral , Not-Taking Azithromycin 250 MG Tablet Oral , Not-Taking Cefdinir 300 MG Capsule Oral , Not-Taking GaviLyte-G 236 GM Solution Reconstituted Oral , Not- Taking methylPREDNISolone 4 MG Tablet Therapy Pack TAKE 6 TABLETS ON DAY 1 DIRECTED ON PACKAGE AND DECREASE BY 1 TAB EACH DAY FOR A TOTAL OF 6 DAYS Oral , Not-Taking Clindamycin Phosphate 1 % Swab APPLY TO FACE EVERY DAY External , Not-Taking Spironolactone 50 MG Tablet Oral , Not-Taking Estradiol 0.1 MG/GM Cream APPLY PEA SIZED AMOUNT TO VULVA TWICE DAILY FOR 2 WEEKS THEN TWICE A WEEK FOR MAINTENANCE Vaginal , Not-Taking Cephalexin 500 MG Capsule TAKE 2 CAPSULES BY MOUTH TWICE A DAY FOR 10 DAYS Oral , Not-Taking Mupirocin 2 % Ointment APPLY 1 APPLICATION TOPICALLY TWICE A DAY FOR 5 DAYS External , Not-Taking Phentermine HCl 37.5 MG Tablet TAKE ONE TABLET BY MOUTH DAILY IN THE MORNING BEFORE BREAKFAST Oral , Not-Taking Clopidogrel Bisulfate 75 MG Tablet TAKE 1 TABLET (75 MG TOTAL) BY MOUTH IN THE MORNING Oral , Medication List reviewed and reconciled with the patient * Allergies: C at Dander, Dust Mites, Mold. Objective: * Vitals: P ain scale:01-10, BP:122/80mm Hg, HR:80/min, Oxygen sat %:96%, Ht: 65 in, Wt:150lbs, BMI:24.96Index. * Examination: G eneral Examination: Extremities m any reticular veins and telangiectasias, pulses 2+, the incision sites are healing well, there is mild ecchymosis along her incision sites, there is no purulent drainage, there are small palpable subcutaneous hematomas. G eneral Surgery: Postoperative complications S urgical Site infection present N o. Assessment: * Assessment: 1. V aricose veins of right lower extremity with inflammation - I83.11 (Primary) �2. V aricose veins of left lower extremity with inflammation - I83.12 Plan: * Treatment: * Procedures: S clerotherapy: Sclerotherapy T he nature of sclerotherapy and its risks and benefits were reviewed and discussed with the patient at length. All questions were answered and the patient wishes to proceed with the procedure. Under direct vision, the varicosities of the bilateral anterior, medial, lateral, and posterior thighs and lower legs were injected with glycerin. This agent was used in order to minimize hyperpigmentation and inflammatory changes in order to acheive optimal patient results. Cotton balls and tape were placed on the injection sites. The patient tolerated the procedure well, and there were no operative complications. This procedure was performed by Ebonie Davis CNP . * Procedure Codes: [id number] INJECTION THERAPY OF VEINS * Follow Up: f or more sclerotherapy * Images: * Electronic signature of Dr. Fred Recinos MD,RVT,RPV on 02/11/2025 at 09:51 AM EDT Sign off status: Pending * Provider: Joby Recinos M.D. Date: 02/10/2025 Generated for Ralph de la o/Mikayla/Dejanitting on: 02/11/2025 09:51 AM EDT History and Physical Notes * HPI (History of Present Illness) Category Sub-Category Detail Notes Category Not es Sclerotherapy Sclerotherapy Ms. Lennox maradiaga nts to the office for follow up after her ambulatory phlebectomy. She notes that she has some tenderness at her incision sites along with some subcutaneous hematomas. She denies any drainage or redness at her incision sites. She states that she wishes to proceed with chemical ablation of her residual symptomatic varicosities. The nature of chemical ablation, and its risks and benefits were reviewed and discussed with her at length. All questions were answered and she wishes to proceed with the chemical ablation Examination Category Sub-Category Detail Notes Category Not es General Examination Extremities many reticul ar veins and telangiectasias, pulses 2+, the incision sites are healing well, there is mild ecchymosis along her incision sites, there is no purulent drainage, there are small palpable subcutaneous hematomas General Surgery Postoperative complications Surgical Site infection present: No
--- OUTSIDE RECORDS SUMMARY | 2025-02-11 09:50 | XMS_ITS | Clinical Summary ---
Author Organization [facility] Address [address], [address] [place] [address] Care Team Providers Care Automation Software Engineer Name Role Phone Unavailable Primary Care Provider Unavailabl e Allergies Active Allergy Reactions Criticality Noted Date Comments Acetaminophen 03/20/2013 Medications ibuprofen (ADVIL;MOTRIN) 200 MG tablet Take 600 mg by mouth every 6 hours as needed for Pain Active Active Problems Problem Noted Date Diagnosed Date Spinal stenosis of lumbar re gion without neurogenic claudication 11/20/2017 Left sided sciatica 11/20/2017 Social History Tobacco Use Types Packs/Day Years Used Date Smoking Tobacco: Former Cigarettes Q uit: 11/20/2006 Smokeless Tobacco: Never Comments Unknown Sex and Gender Information Value Date Recorded Sex Assigned at Not on file Legal Sex Female 4:53 AM EST Gender Identity Not on file Sexual Orientation Not on file Last Filed Vital Signs Vital Sign Reading Time Taken Comments Blood Pressure - - Pulse - - Temperature 36.5 C (97.7 F) 11/20/2017 2:34 PM EDT Respiratory Rate - - Oxygen Saturation - - Inhaled Oxygen Concentration - - Weight 80.3 kg (177 lb) 11/20/2017 2:34 PM EDT Height 165.1 cm (5' 5 ) 11/20/2017 2:34 PM EDT Body Mass Index 29.45 11/20/2017 2:34 PM EDT Plan of Treatment Not on file Insurance MEDICARE [employer] MEDICARE SUPP
--- OUTSIDE RECORDS SUMMARY | 2025-02-11 09:50 | XMS_ITS | Patient Health Record ---
Author Organization [facility] Address [address] [place] [address] Care Team Providers Care Keno Writer / Runner Name Role Phone Dr. Fred Recinos Primary Care Provider Allergies Allergen (clinical drug ingredient) Drug/Non Drug Allergy documented on EMR Reaction Allergy Type Onset Date Status Mold Unknown Allergy Active Dust Mites Unknown Allergy Active Cat dander Cat Dander Unknown Allergy Active Results Component Value Reference Range Notes Ultrasound : Legs, bilateral Reviewed date:01/17/2025 01:10:16 PM Interpretation:No DVT, Distal left small saphenous vein reflux associated with multiple insurance risk surveyor veins, Reflux in varicosities Performing Lab: Notes/Report: No DVT, Distal left small saphenous vein reflux associated with multiple insurance risk surveyor veins, Reflux in varicosities Reason For Referral No Information Medications Medication SIG (Take, Route, Frequency, Duration) Notes Start Date End Date Status Rosuvastatin Calcium 5 MG TAKE 1 TABLET (5 MG TOTAL) BY MOUTH IN THE MORNING Oral for 30 Days Active Cephalexin 500 MG TAKE 2 CAPSULES BY MOUTH TWICE A DAY FOR 10 DAYS Oral for 10 Days Not-Taking Iron 28 MG 1 tablet Orally Once a day for 30 day(s) 09/05/2022 Active Estradiol 0.1 MG/GM APPLY PEA SIZED AMOUNT TO VULVA TWICE DAILY FOR 2 WEEKS THEN TWICE A WEEK FOR MAINTENANCE Vaginal for 90 Not-Taking Cephalexin 500 MG Oral for 10 Not-Taking Phentermine HCl 37.5 MG TAKE ONE TABLET BY MOUTH DAILY IN THE MORNING BEFORE BREAKFAST Oral for 30 Days Not-Taking Doxycycline Hyclate 100 MG TAKE 1 CAPSUL E BY MOUTH TWICE DAILY WITH FOOD AND WATER. DO NOT LAY FLAT FOR 1 HOUR AFTER TAKING Oral for 30 Not-Taking Mupirocin 2 % APPLY 1 APPLICATION TOPICALLY TWICE A DAY FOR 5 DAYS External for 22 Days Not-Taking Azithromycin 250 MG Oral for 5 Not-Taking Diclofenac Sodium 75 MG TAKE 1 TABLET BY MOUTH TWICE A DAY Oral for 30 Not-Taking Clopidogrel Bisulfate 75 MG TAKE 1 TABLE T (75 MG TOTAL) BY MOUTH IN THE MORNING Oral for 60 Days Not-Taking Baby Aspirin Active GaviLyte-G 236 GM Oral for 1 N ot-Taking Prescription grade compression stockings 20 - 30mmHg as directed thigh high Daily Active Cefdinir 300 MG Oral for 10 No t-Taking Bimatoprost 0.03 % APPLY 1 INCH TO AFFECTED EYE EVERYDAY AT BEDTIME External for 30 Active Ibuprofen 600 MG Oral for 25 A ctive methylPREDNISolone 4 MG TAKE 6 TABLETS O N DAY 1 DIRECTED ON PACKAGE AND DECREASE BY 1 TAB EACH DAY FOR A TOTAL OF 6 DAYS Oral for 6 Not-Taking Multivitamin - 1 tablet Orally Once a day for 30 day(s) 09/05/2022 Active Spironolactone 50 MG Oral for 90 Not-Taking Clindamycin Phosphate 1 % APPLY TO FACE EVERY DAY External for 120 Not-Taking Immunizations Vaccine Route Administration Date Status Comme nts Influenza, seasonal, injecta ble, preservative free, 3 yrs and above Unknown 09/05/2022 Administered Pneumococcal polysaccharide PPV23 Unknown 09/05/2022 Ad ministered Influenza, seasonal, injecta ble (split), for 3 yrs and up Unknown 10/01/2022 Administered Social History Tobacco Use: Social History Observation Description Date Details (start date - stop date) Never Smoker NA - NA AUDIT-C (Standard) Question Answer Notes Did you have a drink contain ing alcohol in the past year? Yes How often did you have a dri nk containing alcohol in the past year? Monthly or less (1 point) How many drinks did you have on a typical day when you were drinking in the past year? 1 or 2 drinks (0 point) How often did you have six o r more drinks on one occasion in the past year? Never (0 point) Points 1 Interpretation Negative Tobacco Control (Standard) Question Answer Notes Tobacco use: Nonsmoker Problems Problem Type SNOMED Code ICD Code Onset Dates Problem Status W/U Status Risk Notes Problem Varicose veins o f right lower extremity with inflammation (I83.11) Active confirmed Problem Varicose veins o f left lower extremity with inflammation (I83.12) Active confirmed Problem Varicose veins o f left lower extremity with inflammation (I83.12) Active confirmed Vital Signs Heart Rate 80 /min 02/10/2025 Oximetry 96 % 02/10/2025 Blood pressure diastolic 80 mm Hg 02/10/2025 Height 65 in 02/10/2025 Blood pressure systolic 122 mm Hg 02/10/2025 Weight 150 lbs 02/10/2025 BMI 24.96 kg/m2 02/10/2025 Encounters Encounter Location Date Provider Diagnosis [facility] [address] [place] [address] 01/14/2025 Dvora Jorje Varicose veins of right lower extremity with inflammation I83.11 and Varicose veins of left lower extremity with inflammation I83.12 [facility] [address] [place] [address] 01/14/2025 Dvora Jorje Varicose veins of right lower extremity with inflammation I83.11 and Varicose veins of left lower extremity with inflammation I83.12 [facility] [address] [place] [address] 01/27/2025 Dvora Jorje Varicose veins of right lower extremity with inflammation I83.11 and Varicose veins of left lower extremity with inflammation I83.12 [facility] [address] [place] [address] 02/10/2025 Dvora Jorje Varicose veins of right lower extremity with inflammation I83.11 and Varicose veins of left lower extremity with inflammation I83.12 [facility] [address] [place] [address] 02/03/2025 Dvora Jorje Assessments Encounter Date Diagnosis (ICD Code) Assessment Notes Treatment Notes Treatment Clinical Notes Section Notes 01/14/2025 Varicose veins of right lower extremity with inflammation (ICD-10 - I83.11) Ms. High was made aware that she has significant reflux, and that she is a surgical candidate for an ambulatory phlebectomy and chemical ablation with Varithena and sclerotherapy. The nature of an ambulatory phlebectomy and chemical ablation of her symptomatic varicosities with Varithena and sclerotherapy and the risks and benefits of the procedures were reviewed and discussed with the patient at length. She appeared to understand that she is at risk of bleeding, infection, a significantly smaller risk of adjacent nerve injury and numbness. Alternatives to treatment including continuing to wear compression stockings or just not proceeding with any procedures was discussed with the patient. The patient was made aware that in the presence of venous reflux, she is at increased risk of spontaneous deep venous thrombosis if she does not do preventative measures like wearing compression. All questions were answered, and she wishes to proceed with the surgical plan and work up. The patient was made aware that her existing hyperpigmentation is a permanent skin change that will not resolve with surgical intervention. 01/14/2025 Varicose veins of right lower extremity with inflammation (ICD-10 - I83.11) 01/27/2025 Varicose veins of right lower extremity with inflammation (ICD-10 - I83.11) 02/10/2025 Varicose veins of right lower extremity with inflammation (ICD-10 - I83.11) 01/14/2025 Varicose veins of left lower extremity with inflammation (ICD-10 - I83.12) 01/14/2025 Varicose veins of left lower extremity with inflammation (ICD-10 - I83.12) 01/27/2025 Varicose veins of left lower extremity with inflammation (ICD-10 - I83.12) 02/10/2025 Varicose veins of left lower extremity with inflammation (ICD-10 - I83.12) Plan Of Treatment Next Appt Details Provider Name:Dedricksilvio Jorje, 02/24/2025 09:00:00 AM, [address], [place], [address], Insurance Providers Payer Name Payer Address Payer Phone Subscriber Number Group Number Insured Name Patient Relationship to Insured Coverage Start Date Coverage End Date Medicare [address] [id number] Brigitte High Self - patient is the insured Medical [facility] [address] [place] [address] [id number] Brigitte High Self - patient is the insured Medical (General) History Medical History History ICD Code Arthritis Chronic Acne Eye Lash growth Varicose veins LT breast cancer s/p reconstruction and chemotherapy Urethral caruncle Surgical History Surgery Date(Month/Year) sclerotherapy right breast reduction left patella stabilization with brace cataract removal mastectomy osteophytectomy bi lateral carpal tunnel tonsillectomy hysterectomy discectomy phlebectomy Hospitalization History Reason Date(Month/Year) mastectomy discectomy natural child hysterectomy
--- OUTSIDE RECORDS SUMMARY | 2025-02-11 09:50 | XMS_ITS | Encounter Summary ---
Author Organization [facility] Address [address] [address] Phone Care Team Providers Care Storage Brine Worker Name Role Phone Kristyn Zamora Primary Care Provider Ney Parkinson MD Unavailable [phone] Encounter Details Date Type Department Care Team (Late st Contact Info) Description 03/30/2023 Patient Risk Score [facility] Care Management [address] [facility] [address] [place] [id number] Social History Tobacco Use Types Packs/Day Years Used Date Smoking Tobacco: Never Assessed Comments Unknown Sex and Gender Information Value Date Recorded Sex Assigned at Not on file Legal Sex Female 2:46 PM EST Gender Identity Not on file Sexual Orientation Not on file documented as of this encounter Plan of Treatment Upcoming Encounters Date Type Department Care Team (Late st Contact Info) Description 01/13/2026 10:00 AM EDT Office Visit [facility] [address] [place] [id number] Ney Parkinson MD [address] [place] [address] [address] [place] [address] documented as of this encounter Visit Diagnoses Not on filedocumented in this encounter Care Teams Storage Brine Worker Relationship Specialty Start Date End Date Kristyn Zamora APRN-CNP [address] [place] [address] PCP - General 12/10/22 Ney Parkinson MD [address] [place] [address] [address] [place] [address] Consulting Physician Hematology and Oncology 09/16/23 documented as of this encounter
--- OUTSIDE RECORDS SUMMARY | 2025-02-11 09:50 | XMS_ITS | Clinical Summary ---
Author Organization [facility] Address [id number] [place] [address] Care Team Providers Care Sales Advisor Name Role Phone Kristyn Zamora Cynthia HOUSE WIRER HELPER-RESEARCH ELECTRICIAN Primary Care Provider Allergies Active Allergy Reactions Criticality Noted Date Comments Acetaminophen Other (See Comments),Tinnitus Medium 03/20/2013 Makes my ears ring Other Reaction(s): EARS RING Makes my ears ring Codeine Other (See Comments) 09/05/2022 Medications ibuprofen (MOTRIN) 600 mg tablet Take 1 tablet (600 mg total) by mouth every 8 (eight) hours as needed. Active mrgaogdb-wlo-af lic acid-lutein 0.4-250 mg-mcg tablet Take 1 tablet by mouth in the morning. Active TURMERIC ORAL Take 1 tablet by mouth in the morning. Active calcium carbonate (OS-JAMESON) 600 mg elemental (1,500 mg) tablet Take 1 tablet (600 mg total) by mouth in the morning and 1 tablet (600 mg total) in the evening. Take with meals. Active coffee-theanine -superoxide dis (NEURIVA DE-STRESS) 100-200-10 mg capsule Take 1 tablet by mouth in the morning. Active clopidogreL (PLAVIX) 75 mg tablet Take 1 tablet (75 mg total) by mouth in the morning. 60 tablet 3 10/21/2024 Active rosuvastatin (CRESTOR) 5 mg tablet Take 1 tablet (5 mg total) by mouth in the morning. 30 tablet 3 10/21/2024 Active Active Problems Problem Noted Date Diagnosed Date PAD (peripheral artery disease) 10/21/2024 Assessment & Plan (11/18/2024 9:10 AM EDT): Continue aspirin and statin. Continue Crestor 5 mg and aspirin 81 mg.Risk factors modification to control blood pressure. Continue walking Ischemia of both feet 10/21/2024 Assessment & Plan (11/18/2024 9:10 AM EDT): Continue aspirin and statin. Continue Crestor 5 mg and aspirin 81 mg.Risk factors modification to control blood pressure. 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 She has strong palpable popliteal pulses. She has strong family history of abdominal arctic aneurysm. The plan is to start aspirin Plavix and Statin. We will alsoget a CTA abdomen pelvis with runoff. Encounters Date Type Department Care Team Description 11/18/2024 8:50 AM EDT [facility] [address] [place] [phone] Lexx Diop MD PAD (peripheral artery disease) (Primary Dx); Ischemia of both feet 11/18/2024 Travel from Last 3 Months Family History Relation Name Status Comments Father Stroke, femoral artery surgeries Mother blood clots, [place] BGx4 Social History Tobacco Use Types Packs/Day Years Used Date Smoking Tobacco: Former Cigarettes Smokeless Tobacco: Never Tobacco Cessation:Counseling Given: Not Answered Comments:Patient smoked 1PPD [id number] Hunger Screening Answer Date Recorded Within the past 12 months we worried whether our food would run out before we got money to buy more. Never True 11/18/2024 Within the past 12 months th e food we bought just didn't last and we didn't have money to get more. Never True 11/18/2024 Comments Unknown Sex and Gender Information Value Date Recorded Sex Assigned at Not on file Legal Sex Female 3:47 PM EST Gender Identity Not on file Sexual Orientation Not on file Last Filed Vital Signs Vital Sign Reading Time Taken Comments Blood Pressure 138/88 11/18/2024 8:43 AM EDT Pulse 68 11/18/2024 8:43 AM EDT Temperature 36.2 C (97.1 F) 11/18/2024 8:43 AM EDT Respiratory Rate - - Oxygen Saturation 96% 11/18/2024 8:43 AM EDT Inhaled Oxygen Concentration - - Weight 72.6 kg (160 lb) 11/18/2024 8:43 AM EDT Height 165.1 cm (5' 5 ) 11/18/2024 8:43 AM EDT Body Mass Index 26.63 11/18/2024 8:43 AM EDT Plan of Treatment Health Maintenance Due Date Last Done Comments Depression Screening 1962 DTaP,Tdap and Td Vaccines (1 - Tdap) 1968 Fall Risk Screening 2014 COVID-19 Vaccine (4 - 2023-2 5 season) 2024 05/21/2021, 10/27/2020, 09/22/2020 Zoster (Shingles) Vaccine (3 of 3) 06/10/2024 04/15/2024, 10/01/2023, 06/21/2014 Influenza Vaccine 03/28/2025 04/15/2024, , 10/01/2022, Additional history exists Tobacco Screening 11/18/2025 11/18/2024 Medical Devices Not on file Insurance [employer] Care Teams Sales Advisor Relationship Specialty Start Date End Date Kristyn Zamora APRN-CATHY [address] [place] [id number] PCP - General Family Medicine 10/25/24
--- OUTSIDE RECORDS SUMMARY | 2025-02-11 09:50 | XMS_ITS | Clinical Summary ---
Author Organization [facility] Address [address] [place] [address] Phone Care Team Providers Care Research Chemist Name Role Phone Kristyn Zmaora APRN-RUBBISH COLLECTOR Primary Care Provider Ney Parkinson MD Unavailable [phone] Allergies Active Allergy Reactions Criticality Noted Date Comments Acetaminophen Unknown 09/05/2022 Codeine Unknown 09/05/2022 Medications vit B complex 100 combo no.2 (B-100 Complex) 100 mg tablet extended release Take by mouth. Active sennosides (Senokot) 8.6 mg tablet 8 tablets (68.8 mg) once daily at bedtime. 1 Active methylPREDNISolo ne (Medrol Dospak) 4 mg tablets Take by mouth. 2 Active doxycycline (Vibramycin) 100 mg capsule Take by mouth. 2 Active cholecalciferol (Vitamin D-3) 50 MCG (2000 UT) tablet Take 1 tablet (50 mcg) by mouth once daily. 0 Active bimatoprost (Latisse) 0.03 % ophthalmic solutionIndicati ons:Encounter for general adult medical examination without abnormal findings APPLY 1 INCH TO AFFECTED EYE EVERYDAY AT BEDTIME 3 mL 3 3 Active Active Problems Problem Noted Date Diagnosed Date Malignant neoplasm of centra l portion of right breast in female, estrogen receptor negative 01/19/2024 Iron deficiency 01/19/2024 Peptic ulcer disease 01/19/2024 Dry eyes 01/19/2024 Closed patellar sleeve fracture of left knee Acute bronchitis 09/05/2022 Allergic rhinitis 09/05/2022 Chronic rhinitis 09/05/2022 Atrophic vulvovaginitis 09/05/2022 Bowel habit changes 09/05/2022 Cataracts, bilateral 09/05/2022 Constipation 09/05/2022 COVID-19 09/05/2022 Fall, accidental 09/05/2022 Finger swelling 09/05/2022 Arthritis 09/05/2022 Geographic tongue 09/05/2022 Glossitis 09/05/2022 Polyarthropathy, multiple sites 09/05/2022 H/O hysterectomy for benign disease 09/05/2022 Hemorrhoids 09/05/2022 Back pain 09/05/2022 Hip pain, bilateral 09/05/2022 Inflamed seborrheic keratosis 09/05/2022 Insomnia 09/05/2022 Intercostal pain 09/05/2022 Knee pain, bilateral 09/05/2022 Leg weakness 09/05/2022 Memory loss or impairment 09/05/2022 Neck pain 09/05/2022 Overweight (BMI 25.0-29.9) 09/05/2022 Papular urticaria 09/05/2022 Pneumonia 09/05/2022 Postmenopausal osteoporosis 09/05/2022 Postmenopausal vaginal bleeding 09/05/2022 Premature surgical menopause 09/05/2022 Cervical radiculopathy, acute 09/05/2022 Lumbar disc disease 09/05/2022 Lumbar radiculopathy, acute 09/05/2022 Prolapse urethral mucosa 09/05/2022 Spinal stenosis of lumbar region 09/05/2022 Prolapsed internal hemorrhoids 09/05/2022 Sciatica 09/05/2022 Sleep apnea 09/05/2022 Spider bite 09/05/2022 Urinary hesitancy 09/05/2022 Vitamin D deficiency 09/05/2022 Weight loss 09/05/2022 Word finding difficulty 09/05/2022 Encounters Date Type Department Care Team Description 01/14/2025 10:00 AM EDT Office Visit [facility] [address] [facility] [address] [place] [address] Ney Parkinson MD Malignant neoplasm of central portion of right breast in female, estrogen receptor negative (Primary Dx); Iron deficiency; Dry eyes; Postmenopausal osteoporosis; Peptic ulcer disease; Closed sleeve fracture of left patella, sequela 01/14/2025 9:55 AM EDT Lab [facility] [address] [place] [address] [place] [address] Malignant neoplasm of central portion of right breast in female, estrogen receptor negative; Iron deficiency 01/14/2025 Travel from Last 3 Months Immunizations Immunization Administration Dates Next Due Flu vaccine, quadrivalent, h igh-dose, preservative free, age 65y+ (FLUZONE) 04/12/2022 Moderna SARS-CoV-2 Vaccination 05/21/2021,2020,09/22/2020 Pneumococcal conjugate vacci ne, 13-valent (PREVNAR 13) 05/08/2016 Pneumococcal polysaccharide vaccine, 23-valent, age 2 years and older (PNEUMOVAX 23) 05/10/2019,06/21/2014 Zoster, live 06/21/2014 Social History Tobacco Use Types Packs/Day Years Used Date Smoking Tobacco: Never Assessed Tobacco Cessation:Counseling Given: No Comments Unknown Sex and Gender Information Value Date Recorded Sex Assigned at Not on file Legal Sex Female 2:46 PM EST Gender Identity Not on file Sexual Orientation Not on file Last Filed Vital Signs Vital Sign Reading Time Taken Comments Blood Pressure 135/83 01/14/2025 9:58 AM EDT Pulse 66 01/14/2025 9:58 AM EDT Temperature 36.4 C (97.5 F) 01/14/2025 9:58 AM EDT Respiratory Rate 16 01/14/2025 9:58 AM EDT Oxygen Saturation 97% 01/14/2025 9:58 AM EDT Inhaled Oxygen Concentration - - Weight 69.9 kg (154 lb 1.6 oz) 01/14/2025 9:58 A M EDT Height 165.1 cm (5' 5 ) 12/10/2022 4:07 PM EDT Body Mass Index 25.64 12/10/2022 4:07 PM EDT Plan of Treatment Upcoming Encounters Date Type Department Care Team (Late st Contact Info) Description 01/13/2026 10:00 AM EDT Office Visit [facility] [address] [facility] [address] [place] [address] Ney Parkinson MD [address] [place] [address] [address] [place] [address] Health Maintenance Due Date Last Done Comments CT Colonography 1949 FIT-DNA (Cologuard) 1950 FIT 1950 Sigmoidoscopy 1950 Hepatitis C Screening 11/08/1967 DTaP/Tdap/Td Vaccines (1 - Tdap) 11/08/1971 COVID-19 Vaccine (4 - season) 2024 05/21/2021, 10/27/2020, 09/22/2020 Medicare Annual Wellness Visit (AWV) 10/07/2024 10/07/2023, 04/29/2022, 05/08/2021, Additional history exists Influenza Vaccine (#1) 2025 , 05/27/2023, 10/01/2022, Additional history exists Bone Density Scan 12/25/2025 12/26/2023 Lipid Panel 04/29/2027 04/29/2022, 090 02/2021, 02/11/2020, Additional history exists Colonoscopy 05/16/2032 05/16/2022, 04/28, 04/01/2017 Colorectal Cancer Screening 05/16/2032 Irritable Bowel Syndrome Discontinued 05/16/2022, 11/2016 Pneumococcal Vaccine Completed 09/05/2022, 05/10/2019, 05/08/2016, Additional history exists RSV High Risk: (Elderly (60+) or Population) Completed 05/27/2023 Zoster Vaccines Completed 04/15/2024, 030 12/2023, 06/21/2014 Mammogram Discontinued 12/24/2024, 11/27, 12/24/2023, Additional history exists HIB Vaccines Aged Out No longer eligi ble based on patient's age to complete this topic HPV Vaccines Aged Out No longer eligi ble based on patient's age to complete this topic Hepatitis A Vaccines Aged Out No long er eligible based on patient's age to complete this topic Hepatitis B Vaccines Aged Out No long er eligible based on patient's age to complete this topic IPV Vaccines Aged Out No longer eligi ble based on patient's age to complete this topic Meningococcal Vaccine Aged Out No jasper tanisha eligible based on patient's age to complete this topic Rotavirus Vaccines Aged Out No longer eligible based on patient's age to complete this topic Procedures Procedure Name Priority Date/Time Associated Diagnosis Comments CANCER ANTIGEN 27-29 Routine 01/14/2025 9:51 AM EDT Malignant neoplasm of central portion of right breast in female, estrogen receptor negative FERRITIN Routine 01/14/2025 9:51 AM EDT Iron deficiency IRON AND TIBC Routine 01/14/2025 9:51 AM EDT Iron deficiency COMPREHENSIVE METABOLIC PANEL Routine 01/14/2025 9:51 AM EDT Malignant neoplasm of central portion of right breast in female, estrogen receptor negative CBC WITH AUTO DIFFERENTIAL Routine 01/14/2025 9:51 AM EDT Malignant neoplasm of central portion of right breast in female, estrogen receptor negative COLONOSCOPY 05/16/2022 LIPID PANEL Routine 04/29/2022 11:49 AM EDT DIGITAL MAMM SCREENING Routine 12:37 PM EDT Encounter for general adult medical examination without abnormal findings from Last 3 Months or Most Recently Relevant to Health Maintenance Results * CBC and Auto Differential (01/14/2025 9:51 AM EDT) WBC 5.7 4.4 - 11.3 x10*3/uL LAB HEMATOLOGY METHOD 01/14/2025 9:57 AM EDT [facility] RBC 4.07 4.00 - 5.20 x10*6/uL LAB HEMATOLOGY METHOD 01/14/2025 9:57 AM EDT [facility] Hemoglobin 12.4 12.0 - 16.0 g/dL LAB HEMATOLOGY METHOD 01/14/2025 9:57 AM EDT [facility] Hematocrit 38.2 36.0 - 46.0 % LAB HEMATOLOGY METHOD 01/14/2025 9:57 AM EDT [facility] MCV 94 80 - 100 fL LAB HEMATOLOGY METHOD 01/14/2025 9:57 AM EDT [facility] MCH 30.5 26.0 - 34.0 pg LAB HEMATOLOGY METHOD 01/14/2025 9:57 AM EDT [facility] MCHC 32.5 32.0 - 36.0 g/dL LAB HEMATOLOGY METHOD 01/14/2025 9:57 AM EDT [facility] RDW 13.3 11.5 - 14.5 % LAB HEMATOLOGY METHOD 01/14/2025 9:57 AM EDT [facility] Platelets 237 150 - 450 x10*3/uL LAB HEMATOLOGY METHOD 01/14/2025 9:57 AM EDT [facility] Neutrophils % 58.1 40.0 - 80.0 % LAB HEMATOLOGY METHOD 01/14/2025 9:57 AM EDT [facility] Immature Granulocytes %, Automated 0.0 0.0 - 0.9 % LAB HEMATOLOGY METHOD 01/14/2025 9:57 AM EDT [facility] Comment:Immature Granulocyte Count (IG) includes promyelocytes, myelocytes and metamyelocytes but does not include bands. Percent differential counts (%) should be interpreted in the context of the absolute cell counts (cells/UL). Lymphocytes % 31.4 13.0 - 44.0 % LAB HEMATOLOGY METHOD 01/14/2025 9:57 AM EDT [facility] Monocytes % 6.8 2.0 - 10.0 % LAB HEMATOLOGY METHOD 01/14/2025 9:57 AM EDT [facility] Eosinophils % 2.8 0.0 - 6.0 % LAB HEMATOLOGY METHOD 01/14/2025 9:57 AM EDT [facility] Basophils % 0.9 0.0 - 2.0 % LAB HEMATOLOGY METHOD 01/14/2025 9:57 AM EDT [facility] Neutrophils Absolute 3.31 1.60 - 5.50 x10*3/uL LAB HEMATOLOGY METHOD 01/14/2025 9:57 AM EDT [facility] Comment:Percent differential counts (%) should be interpreted in the context of the absolute cell counts (cells/uL). Immature Granulocytes Absolute, Automated 0.00 0.00 - 0.50 x10*3/uL LAB HEMATOLOGY METHOD 01/14/2025 9:57 AM EDT [facility] Lymphocytes Absolute 1.79 0.80 - 3.00 x10*3/uL LAB HEMATOLOGY METHOD 01/14/2025 9:57 AM EDT [facility] Monocytes Absolute 0.39 0.05 - 0.80 x10*3/uL LAB HEMATOLOGY METHOD 01/14/2025 9:57 AM EDT [facility] Eosinophils Absolute 0.16 0.00 - 0.40 x10*3/uL LAB HEMATOLOGY METHOD 01/14/2025 9:57 AM EDT [facility] Basophils Absolute 0.05 0.00 - 0.10 x10*3/uL LAB HEMATOLOGY METHOD 01/14/2025 9:57 AM EDT [facility] Blood Venous blood specimen / Unknown Venipuncture / Unknown 01/14/2025 9:51 AM EDT 01/14/2025 9:51 AM EDT us Ney Parkinson MD LAB BLOOD ORDERABLES Final Re sult [facility] [address] [place] [address] * (ABNORMAL) Cancer Antigen 27-29 (01/14/2025 9:51 AM EDT) CA 27.29 43.5(H) 0.0 - 38.6 U/mL LAB IMMUNOASSAY METHOD 01/14/2025 8:08 PM EDT [facility] Blood Venous blood specimen / Unknown Venipuncture / Unknown 01/14/2025 9:51 AM EDT 01/14/2025 9:51 AM EDT Narrative [facility] - 01/14/2025 8:08 PM EDT CA 27.29 testing is performed by chemiluminescent immunoassay using the Siemens Exhale Fans. Values obtained with different analytic methods cannot be used interchangeably. Serum CA 27.29 measurement is intended for use as an aid in monitoring patients previously treated for Stage II or Stage III breast cancer. This assay is not intended for creening or diagnosis of cancer in the general population. The results must not be used as the sole means for clinical diagnosis or patient management decisions. Ney Parkinson MD LAB BLOOD ORDERABLES Final Re sult Performing Organization Address City/[facility]/ZIP Co de Phone Number [facility] [address] [address] * (ABNORMAL) Iron and TIBC (01/14/2025 9:51 AM EDT) Iron 59 35 - 150 ug/dL LAB CHEMISTRY METHOD 01/14/2025 11:18 AM EDT [facility] UIBC 278 110 - 370 ug/dL LAB CHEMISTRY METHOD 01/14/2025 11:18 AM EDT [facility] TIBC 337 240 - 445 ug/dL LAB CHEMISTRY METHOD 01/14/2025 11:18 AM EDT [facility] % Saturation 18(L) 25 - 45 % LAB CHEMISTRY METHOD 01/14/2025 11:18 AM EDT [facility] Blood Venous blood specimen / Unknown Venipuncture / Unknown 01/14/2025 9:51 AM EDT 01/14/2025 9:51 AM EDT us Ney Parkinson MD LAB BLOOD ORDERABLES Final Re sult Performing Organization Address City/[facility]/ZIP Co de Phone Number [facility] [address] [place] [address] * Ferritin (01/14/2025 9:51 AM EDT) Ferritin 59 8 - 150 ng/mL LAB CHEMISTRY METHOD 01/14/2025 11:18 AM EDT [facility] Blood Venous blood specimen / Unknown Venipuncture / Unknown 01/14/2025 9:51 AM EDT 01/14/2025 9:51 AM EDT us Ney Parkinson MD LAB BLOOD ORDERABLES Final Re sult [facility] [address] [place] [address] * (ABNORMAL) Comprehensive metabolic panel (01/14/2025 9:51 AM EDT) Glucose 106(H) 74 - 99 mg/dL LAB CHEMISTRY METHOD 01/14/2025 10:12 AM EDT [facility] Sodium 144 136 - 145 mmol/L LAB CHEMISTRY METHOD 01/14/2025 10:12 AM EDT [facility] Potassium 3.2(L) 3.5 - 5.3 mmol/L LAB CHEMISTRY METHOD 01/14/2025 10:12 AM EDT [facility] Chloride 109(H) 98 - 107 mmol/L LAB CHEMISTRY METHOD 01/14/2025 10:12 AM EDT [facility] Bicarbonate 26 21 - 32 mmol/L LAB CHEMISTRY METHOD 01/14/2025 10:12 AM EDT [facility] Anion Gap 12 10 - 20 mmol/L LAB CHEMISTRY METHOD 01/14/2025 10:12 AM EDT [facility] Urea Nitrogen 22 6 - 23 mg/dL LAB CHEMISTRY METHOD 01/14/2025 10:12 AM EDT [facility] Creatinine 0.56 0.50 - 1.05 mg/dL LAB CHEMISTRY METHOD 01/14/2025 10:12 AM EDT [facility] eGFR >90 >60 mL/min/1. 73m*2 LAB CHEMISTRY METHOD 01/14/2025 10:12 AM EDT [facility] Comment: Calculations of estimated GFR are performed using the 2020 CKD-EPI Study Refit equation without the race variable for the IDMS-Traceable creatinine methods. https://jasn.asnjournals.org/content//ASN.0738646851 Calcium 9.3 8.6 - 10.3 mg/dL LAB CHEMISTRY METHOD 01/14/2025 10:12 AM EDT [facility] Albumin 4.3 3.4 - 5.0 g/dL LAB CHEMISTRY METHOD 01/14/2025 10:12 AM EDT [facility] Alkaline Phosphatase 68 33 - 136 U/L LAB CHEMISTRY METHOD 01/14/2025 10:12 AM EDT [facility] Total Protein 6.9 6.4 - 8.2 g/dL LAB CHEMISTRY METHOD 01/14/2025 10:12 AM EDT [facility] AST 20 9 - 39 U/L LAB CHEMISTRY METHOD 01/14/2025 10:12 AM EDT [facility] Bilirubin, Total 0.4 0.0 - 1.2 mg/dL LAB CHEMISTRY METHOD 01/14/2025 10:12 AM EDT [facility] ALT 21 7 - 45 U/L LAB CHEMISTRY METHOD 01/14/2025 10:12 AM EDT [facility] Comment:Patients treated wit h Sulfasalazine may generate falsely decreased results for ALT. Blood Venous blood specimen / Unknown Venipuncture / Unknown 01/14/2025 9:51 AM EDT 01/14/2025 9:51 AM EDT us Ney Parkinson MD LAB BLOOD ORDERABLES Final Re sult [facility] [address] [place] [address] * COLONOSCOPY (05/16/2022) Anatomical Region Laterality Modality Endoscopy Narrative 05/16/2022 Ordered by an unspecified provider. us Onbase Conversion ENDOSCOPY PROCEDURE ORDERABLES Final Result * Lipid Panel (04/29/2022 11:49 AM EDT) Cholesterol 198 0 - 199 mg/dL [facility] Comment: . AGE DESIRABLE BORDERLINE HIGH HIGH [...] be performed immediately prior to Metamizole dosing. HDL 89.0 mg/dL [facility] Comment: . AGE VERY LOW LOW NORMAL HIGH 0-19 Y < 35 < 40 40-45 ---- 20-24 Y ---- < 40 >45 ---- >24 Y ---- < 40 40-60 >60 . Cholesterol/HDL Ratio 2.2 [facility] Comment: REF VALUES DESIRABLE < 3.4 HIGH RISK > 5.0 LDL 87 0 - 99 mg/dL [facility] Comment: . NEAR BORD AGE DESIRABLE OPTIMAL HIGH HIGH VERY HIGH 0-19 Y 0 - 109 --- 110-129 >/= 130 ---- 20-24 Y 0 - 119 --- 120-159 >/= 160 ---- >24 Y 0 - 99 100-129 130-159 160-189 >/=190 . VLDL 22 0 - 40 mg/dL [facility] Triglycerides 109 0 - 149 mg/dL [facility] Comment: . AGE DESIRABLE BORDERLINE HIGH HIGH [...] be performed immediately prior to Metamizole dosing. 04/29/2022 11:4 9 AM EDT 04/29/2022 9:29 PM EDT us Azul Campbell DO LAB BLOOD ORDERABLES Final R esult [facility] [address] [place] [address] from Last 3 Months or Most Recently Relevant to Health Maintenance Insurance MEDICARE PART A AND B Member Subscriber Plan / Payer (Ef fective 2014-Present) Name:Brigitte High Member ID:[id number] Relation to Subscriber:Self Name:Brigitte High Subscriber ID:[id number] Payer ID:Not on file Group ID:Not on file Type:Not on file Address: [address] MEDICARE SUPPLEMENT MEDICARE PART A AND B MEDICARE SUPPLEMENT Advance Directives For more information, please contact: [phone] (Available ) Documents on File Type Date Recorded Patient Nursing Technician Expl anation Living Will 10/14/2014 Care Teams Research Chemist Relationship Specialty Start Date End Date Kristyn Zamora, MANAGER TRAFFIC-RUBBISH COLLECTOR [address] [place] [address] PCP - General 12/10/22 [place] [address] [facility] [facility] [address] [place] [address] Consulting Physician Hematology and Oncology 09/16/23
--- OUTSIDE RECORDS SUMMARY | 2025-02-11 09:50 | XMS_ITS | Encounter Summary ---
Author Organization [facility] Address [address] [place] [address] Phone Care Team Providers Care [employer] Paralegal Name Role Phone Kristyn Zamora Primary Care Provider Ney Parkinson MD Unavailable [phone] Encounter Details Date Type Department Care Team (Late st Contact Info) Description 02/27/2023 Patient Risk Score [facility] [address] [facility] [address] [place] [phone] Social History Tobacco Use Types Packs/Day Years [...] Description 01/13/2026 10:00 AM EDT Office Visit [facility] [address] [address] [place] [phone] Ney Parkinson MD [address] [place] [address] [address] [place] [address] documented as of this encounter Visit Diagnoses Not on filedocumented in this encounter Care Teams [employer] Paralegal Relationship Specialty Start Date End Date Kristyn Zamora APRN-CNP [address] [place] [address] PCP - General 12/10/22 Ney Parkinson MD [address] [place] [address] [address] [place] [address] Consulting Physician Hematology and Oncology 09/16/23 documented as of this encounter
--- OUTSIDE RECORDS SUMMARY | 2025-02-11 09:50 | XMS_ITS | Clinical Summary ---
Author Organization [facility] Address [address] [place] [id number] Care Team Providers Care Hardener Helper Name Role Phone Kristyn Zamora CNP Primary Care Provider [phone] Allergies Active Allergy Reactions Criticality Noted Date Comments Acetaminophen Other: See Comments 05/30/2014 Makes my ears ring Medications calcium carbonate 600 mg-cholecalcife rol 200 units (CALCIUM 600 + D,3,) 600 mg(1,500mg) -200 unit tab Take 1 tablet by mouth once daily. 03/28/2015 Active multivitamin (DAILY MULTIPLE) tablet Take 1 tablet by mouth once daily. 0 03/28/2015 Active TURMERIC ORAL Take by mouth. Active BIOTIN ORAL Take by mouth. Active ibuprofen (MOTRIN) 600 mg tablet Take 600 mg by mouth. Active plecanatide (TRULANCE) 3 mg tablet Take 1 tablet by mouth once daily. 30 tablet 5 09/21/2024 Active lubiprostone (AMITIZA) 24 mcg capsule Take 1 capsule by mouth two times a day with meals. 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 Family History Medical History Relation Comments Cataract Father Macular Degen Father Cataract Mother Relation Status Comments Father Mother Social History Tobacco Use Types Packs/Day Years Used Date Smoking Tobacco: Former Comments:quit 7 years ago Alcohol Use Standard Drinks/Week Comments Yes 0 (1 standard drink = 0.6 oz pur e alcohol) social Area Deprivation Index Answer Date Erasmo rded National Score (1-100), lower number is lower ri sk 91 02/24/2023 State Score (1-10), lower number is lower risk 9 02/24/2023 Data from: https://www.neighborhoodatlas.medicine.[facility].edu/. 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 Not on file Not on file Not on file Last Filed Vital Signs Vital Sign Reading Time Taken Comments Blood Pressure 135/86 09/21/2024 10:35 AM EST Pulse 67 09/21/2024 10:35 AM EST Temperature 36.4 C (97.6 F) 05/30/2014 11:01 AM EST Respiratory Rate 16 04/25/2015 3:31 PM EDT Oxygen Saturation 98% 04/25/2015 3:31 PM EDT Inhaled Oxygen Concentration - - Weight 74.6 kg (164 lb 6.4 oz) 09/21/2024 10:35 AM EST Height 165.1 cm (5' 5 ) 09/21/2024 10:35 AM EST Body Mass Index 27.36 09/21/2024 10:35 AM EST Plan of Treatment Health Maintenance Due Date Last Done Comments Anxiety Screening 11/08/1967 Depression Screening 11/08/1967 Hepatitis C Screening 11/08/1967 CT Colonography 1994 Cologuard (FIT-DNA) 1994 Fecal Occult Blood 1994 Sigmoidoscopy 1994 Medicare Annual Wellness Visit 10/26/2014 Bone Density Screening 2014 DTaP,Tdap,Td Vaccine (2 - Td or Tdap) 03/20/2023 03/20/2013 Colonoscopy 05/16/2023 05/16/2022, 04/28, 04/01/2017, Additional history exists Colorectal Cancer Screening 05/16/2023 Covid-19 Vaccine (4 - 2023-2 5 season) 2024 05/21/2021, 10/27/2020, 09/22/2020 Shingrix Vaccine (3 of 3) 06/10/20242023, 10/01/2023, 06/21/2014 Advance Directive Discussion 07/28/2024 Influenza Vaccine (#1) 2025 4, 05/27/2023, 10/01/2022, Additional history exists Diabetes Screening 04/29/2025 04/29/2022, 0 04/12/2022, 01/18/2022, Additional history exists Lipid Screening 04/29/2027 04/29/2022, 09/0 02/2021, 02/11/2020, Additional history exists Pneumococcal Vaccine: 50+ Completed 2022, 05/10/2019, 05/08/2016, Additional history exists RSV Vaccine Completed 05/27/2023 Mammogram Screening Discontinued 12/24/2023, Medical Devices Implanted Type Area Hvac Engineer Device Identifier Shelf Expiration Date Model / Serial / Lot Lens Iol +15.50 Acrsf 13mm 6mm - [id number] Implanted:Qty : 1 on 04/11/2015 at [facility] Intraocular Lens Right: Eye [employer] [facility] 03/27/2019 SN6CWS 15.5 / [id number] / Lens Iol +14 Nidia 0 D Bcnvx 13 - [id number] Implanted:Qty : 1 on 04/25/2015 at [facility] Intraocular Lens Left: Eye [employer] [facility] 06/26/2019 SN6CWS 14.0 / [id number] / Insurance MEDICARE Member Subscriber Plan / Payer (Ef fective 2014-Present) Name:Brigitte High Member ID:[id number] Relation to Subscriber:Self Name:Brigitte High Subscriber ID:[id number] Payer ID:Not on file Group ID:Not on file Type:Medicare Address: [facility] [address] MEDICARE SUPPLEMENT MEDICARE Member Subscriber Plan / Payer ( fective 2014-Present) Name:Brigitte High Member ID:[id number] Relation to Subscriber:Self Name:Brigitte High Subscriber ID:[id number] Payer ID:Not on file Group ID:Not on file Type:Medicare Address: [address] MEDICARE SUPPLEMENT Member Subscriber Plan / Payer ( fective 2021-Present) Name:Brigitte High Relation to Subscriber:Self Name:Brigitte High Payer ID:Not on file Type:Indemnity Address: [place] [id number] Care Teams Hardener Helper Relationship Specialty Start Date End Date Kristyn Zamora, GROCERY SPECIALIST [address] [place] [address] PCP - General Internal Medicine 09/13/24
--- OUTSIDE RECORDS SUMMARY | 2025-02-11 09:50 | XMS_ITS | Encounter Summary ---
Author Organization [facility] Address [address] [place] [address] Phone Care Team Providers Care Corporate Scheduler Name Role Phone Kristyn Zamora Primary Care Provider Ney Parkinson MD Unavailable [phone] Encounter Details Date Type Department Care Team (Late st Contact Info) Description 01/27/2023 Patient Risk Score [facility] Care Management [address] [facility] [address] [place] [phone] Social History Tobacco Use Types Packs/Day Years [...] Description 01/13/2026 10:00 AM EDT Office Visit [facility] [address] [facility] [address] [place] [id number] Ney Parkinson MD [address] [place] [address] [address] [place] [address] documented as of this encounter Visit Diagnoses Not on filedocumented in this encounter Care Teams Corporate Scheduler Relationship Specialty Start Date End Date Kristyn Zamora APRN-CNP [address] [place] [address] PCP - General 12/10/22 Ney Parkinson MD [address] [place] [address] [address] [place] [address] Consulting Physician Hematology and Oncology 09/16/23 documented as of this encounter
--- OUTSIDE RECORDS SUMMARY | 2025-02-11 09:51 | XMS_ITS | Encounter Summary ---
Author Organization [facility] Address [address] [place] [address] Care Team Providers Care Uke Operator Name Role Phone Azul Campbell DO Primary Care Provider + Kristyn Zamora CNP Primary Care Provider + Source Comments In the event this information is protected by the Federal Confidentiality of Alcohol and Drug AbusePatient Records regulations: The Federal rules restrict any use of the information to criminally investigate or prosecute any alcohol or drug abuse patient.[facility] Encounter Details Date Type Department Care Team (Late st Contact Info) Description 10/08/2023 Lab Requisition [facility] [address] [place] [address] Star Campos MD [address] [place] [address] Person encountering health services to consult on behalf of another person Social History Tobacco Use Types Packs/Day Years Used Date Smoking Tobacco: Never Assessed Area Deprivation Index Answer Date Erasmo rded National Score (1-100), lower number is lower ri sk 91 02/24/2023 State Score (1-10), lower number is lower risk 9 02/24/2023 Data from: https://www.neighborhoodatlas.[facility]/. Last address used for calculation [address] [facility] 02/24/2023 Comments No Sex and Gender Information Value Date Recorded Sex Assigned at Not on file Legal Sex Female 8:56 AM EST Gender Identity Not on file Sexual Orientation Not on file documented as of this encounter Functional Status * Are you deaf or do you have serious difficulty hearing? Answer Date of Assessment Author No 12/09/2014 11:05 AM EDT Xiomy Wright LPN * Are you blind or do you have serious difficulty seeing, even when wearing glasses? Answer Date of Assessment Author No 12/09/2014 11:05 AM EDT Xiomy Wright LPN * Do you have serious difficulty walking or climbing stairs? Answer Date of Assessment Author No 12/09/2014 11:05 AM EDT Xiomy Wright LPN * Do you have difficulty dressing or bathing? Answer Date of Assessment Author No 12/09/2014 11:05 AM EDT Xiomy Wrgiht LPN * Because of a physical, mental, or emotional condition, do you have difficulty doing errands alone such as visiting a doctor's office or shopping? Answer Date of Assessment Author No 12/09/2014 11:05 AM EDT Xiomy Wright LPN documented as of this encounter Mental Status * Because of a physical, mental, or emotional condition, do you have serious difficulty concentrating, remembering, or making decisions? Answer Entry Date Author No 12/09/2014 11:05 AM EDT Xiomy Wright LPN documented in this encounter Plan of Treatment Not on file documented as of this encounter Procedures Procedure Name Priority Date/Time Associated Diagnosis Comments SURGICAL PATHOLOGY REFERENCE LAB CONSULT Routine 10/08/2023 7:46 PM EDT Person encountering health services to consult on behalf of another person documented in this encounter Results * SURGICAL PATHOLOGY REFERENCE LAB CONSULT (10/08/2023 7:46 PM EDT) Case Report Surgical Pathology Report Case: [id number] Authorizing Provider: Star Campos MD Collected: 10/08/2023 07:46 PM Ordering Location: [facility] Received: 10/08/2023 07:45 PM [facility] Pathologist: Hema Ho MD Specimen: SLIDE(S), 4 SLIDES ([id number]) 10/15/2023 4:02 PM EDT [facility] FINAL DIAGNOSIS A. 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 10/15/2023 4:02 PM EDT [facility] at 1602 EDT Diagnosis Comment No invasive component is found in the sample examined. P16 immunostain performed at the referring institution is diffusely/strongly positive. Further, high-risk HPV CISH performed at the [facility] is positive. Laboratory Developed Test (LDT) Disclaimer: Performance characteristics of immunohistochemical, immunofluorescent and chromogenic in-situ hybridization tests have been determined by the performing laboratory within [facility] [place] ([facility], [facility], [facility], [facility], [facility], [facility], or [facility]) in a manner consistent with CLIA requirements. One or more of these tests have not been cleared or approved by the FDA. [facility] is regulated under CLIA as qualified to perform high-complexity testing. These tests are used for clinical purposes. They should not be regarded as investigational or for research. Positive and negative controls stain appropriately. 10/15/2023 4:02 PM EDT [facility] Clinical History CONSULT REQUESTED 10/15/2023 4:02 PM EDT [facility] Performing Lab Diagnostic interpretation performed at [facility], [address] [place], [place] [id number] CLIA# [id number] Maintainer Operator: Eleazar Sutherland M.D. 10/15/2023 4:02 PM EDT [facility] Blocks or Slides MICROSCOPE SLIDE / Unknown 10/08/2023 7:46 PM EDT 10/08/2023 7:45 PM EDT us Star Campos MD SURGICAL PATHOLOGY Final Res ult [facility] [address] [facility] [address] [place] [address], documented in this encounter Visit Diagnoses Diagnosis Person encountering health services to consult on behalf of another person Other person consulting on behalf of another person documented in this encounter Care Teams Uke Operator Relationship Specialty [place] [address] [place] [phone] PCP - General 03/28/15 09/12/24 Kristyn Zamora, BREAK OUT MAN [address] [place] [address] PCP - General Internal Medicine 09/13/24 documented as of this encounter
--- OUTSIDE RECORDS SUMMARY | 2025-02-11 09:51 | XMS_ITS | Clinical Summary ---
Author Organization [facility] Address [address] [place] [address] Care Team Providers Care Medicaid Eligibility Specialist Name Role Phone Unavailable Primary Care Provider Unavailabl e Allergies Active Allergy Reactions Criticality Noted Date Comments Acetaminophen Unknown,Tinnitus Medium 03/20/2013 Other Reaction(s): EARS RING Makes my ears ring Other Reaction(s): EARS RING, Other (See Comments) Makes my ears ring Other Reaction(s): EARS RING Makes my ears ring Codeine Unknown 09/05/2022 Other Reaction(s): Other (See Comments) Medications B Complex-Biotin- FA (GNP B-100 Complex) tablet controlled-rele ase Take by mouth Active bimatoprost (Latisse) 0.03 % ophthalmic solution APPLY 1 INCH TO AFFECTED EYE EVERYDAY AT BEDTIME Active COVID-19 mRNA booster vaccine, Moderna, (Moderna COVID-19 Vac, Booster,) 50 MCG/0.5ML suspension dark blue cap injection Inject into the shoulder, thigh, or buttocks Active diclofenac (Voltaren) 75 MG EC tablet Take by mouth Act bubba doxycycline (Vibramycin) 100 MG capsule Activ e ibuprofen 200 MG tablet Take 600 mg by mouth every 6 (six) hours if needed Active ibuprofen 600 MG tablet TAKE 1 TABLET BY MOUTH EVERY 6 TO 8 HOURS NEEDED 07/20/2023 Active Myrbetriq 50 MG 24 hr tablet Take 50 mg by mouth Daily 09/08/2023 Active multivitamin (Theragran) tablet Active omeprazole (PriLOSEC) [address] capsule Take 40 mg by mouth Daily 03/14/2023 Active Turmeric (QC Tumeric Complex) 500 MG capsule Take by mouth Active Active Problems Problem Noted Date Diagnosed Date High risk for fracture due to osteoporosis by DE XA scan 01/26/2024 Encounters Date Type Department Care Team Description 12/24/2024 Clinisync Result Encounter [facility] Department Unsolicited Tanai Morales DO 11/23/2024 2:00 PM EDT Office Visit [facility] [address] [place] [address] Tania Morales, Breast cancer screening by mammogram; Wellness examination 11/23/2024 Bamboo flowsheet [facility] [address] [place] [address] Tania Morales DO 11/16/2024 Orders Only [facility] [address] [place] [address] Jennifer Orlando LPN from Last 3 Months Social History Tobacco Use Types Packs/Day Years Used Date Smoking Tobacco: Never Assessed Comments No Sex and Gender Information Value Date Recorded Sex Assigned at Not on file Legal Sex Female 12:54 PM EDT Gender Identity Not on file Sexual Orientation Not on file Last Filed Vital Signs Vital Sign Reading Time Taken Comments Blood Pressure 112/66 11/23/2024 2:10 PM EDT Pulse - - Temperature - - Respiratory Rate - - Oxygen Saturation - - Inhaled Oxygen Concentration - - Weight 74.3 kg (163 lb 12.8 oz) 11/23/2024 2:10 PM EDT Height - - Body Mass Index - - Plan of Treatment Health Maintenance Due Date Last Done Comments CT Colonography 1950 FIT-DNA 1949 FIT 1950 FOBT 1950 Sigmoidoscopy 1950 Influenza Vaccine (#1) 2025 , 05/27/2023, 04/12/2022, Additional history exists Colonoscopy 05/16/2032 05/16/2022, 04/28, 04/01/2017 Colorectal Cancer Screening 05/16/2032 Pneumococcal Vaccine: 65+ Years Completed 05/10/2019, 05/08/2016, 06/21/2014 Mammogram Discontinued 12/24/2024, 11/26, 11/20/2021, Additional history exists Procedures Procedure Name Priority Date/Time Associated Diagnosis Comments BI MAMMOGRAM SCREENING TOMOSYNTHESIS RIGHT 12/24/2024 10:09 AM EDT from Last 3 Months Results * Right screening mammogram with tomosynthesis (12/24/2024 10:09 AM EDT) Anatomical Region Laterality Modality Breast Right Mammography 12/24/2024 10:0 9 AM EDT Narrative 12/24/2024 10:09 [place] [address] Mammography Report Signed Patient: BRIGITTE HIGH MR#: [id number] : 1950 Acct:[id number] Age/Sex: 74 / F ADM Date: 12/24/24 Loc: MAMMO Attending Dr: Tania Morales D.O. Ordering Physician: Tania Morales D.O. Results: Date of Service: 12/24/24 Follow Up: Procedure(s): MM tomosynthesis screening RT Accession Number(s): [id number] cc: BART DOUGHERTY ; Tania Morales D.O. Patient Name: BRIGITTE HIGH MR#: [id number] : 1950 Exam Date: 12/24/2024 Ordering Doctor: DR TANIA MORALES . RADIOLOGY REPORT PROCEDURE: MM TOMOSYNTHESIS SCREENING RT COMPARISON: MM TOMOSYNTHESIS SCREENING RT, 12/24/2023. MG MAMM DX 3D RT CAD, 12/18/2022. MG MAMM SCREEN RT 3D CAD, 11/20/2021. MG MAMM SCREEN RT 3D CAD, 07/15/2020. INDICATIONS: Screening Calculator Name NCI Breast Cancer Risk Assessment Tool 5 Year Breast Cancer Risk n/a% Lifetime Breast Cancer Risk n/a% Personal Breast Cancer Yes, 48, mastectomy left Personal Ovarian Cancer No Treatments None Family Cancers Sister with colon cancer at age 54. LOCATION: [facility] BREAST COMPOSITION: The breasts are heterogeneously dense,which may obscure small masses. FINDINGS: DIAGNOSTIC CATEGORY 2--BENIGN FINDING: RECOMMENDATIONS: ROUTINE MAMMOGRAM AND CLINICAL EVALUATION IN 12 MONTHS. PLEASE NOTE: A NORMAL MAMMOGRAM DOES NOT EXCLUDE THE POSSIBILITY OF BREAST CANCER. A CLINICALLY SUSPICIOUS PALPABLE LUMP SHOULD BE BIOPSIED. RIGHT BREAST: No significant suspicious finding. Benign-appearing calcifications are present. Dictated by: Raul Suarez MD on 12/24/2024 at 09:59 Approved by: Raul Suarez MD on 12/24/2024 at 10:08 Dictated By: Raul Suarez M.D. Signed By: 12/24/24 1009 DD/ 100 TD/TT: Coach Builder: Procedure Note Radiology, Radiologist, MD - 12/24/2024 [place] [address] Mammography Report Signed Patient: BRIGITTE HIGHMR#: [id number] : 1950Acct:[id number] Age/Sex: 74 / FADM Date: 12/24/24 Loc: MAMMO Attending Dr: Tania Morales D.O. Ordering Physician: Tania Morales D.O.Results: Date of Service: 12/24/24Follow Up: Procedure(s): MM tomosynthesis screening RT Accession Number(s): [id number] cc: BART DOUGHERTY ; Tania Morales D.O. Patient Name: BRIGITTE HIGH MR#: [id number] : 1950 Exam Date: 12/24/2024 Ordering Doctor: DR TANAI MORALES . RADIOLOGY REPORT PROCEDURE: MM TOMOSYNTHESIS SCREENING RT COMPARISON: MM TOMOSYNTHESIS SCREENING RT, 12/24/2023. MG MAMM DX 3DRT CAD, 12/18/2022. MG MAMM SCREEN RT 3D CAD, 11/20/2021. MG MAMM SCREEN RT3D CAD, 07/15/2020. INDICATIONS: Screening Calculator Name NCI Breast Cancer Risk Assessment Tool 5 Year Breast Cancer Risk n/a% Lifetime Breast Cancer Risk n/a% Personal Breast Cancer Yes, 48, mastectomy left Personal Ovarian Cancer No Treatments None Family Cancers Sister with colon cancer at age 54. LOCATION: [facility] BREAST COMPOSITION: The breasts are heterogeneously dense,which may obscure small masses. FINDINGS: DIAGNOSTIC CATEGORY 2--BENIGN FINDING: RECOMMENDATIONS: ROUTINE MAMMOGRAM AND CLINICAL EVALUATION IN 12 MONTHS. PLEASE NOTE: A NORMAL MAMMOGRAM DOES NOT EXCLUDE THE POSSIBILITY OFBREAST CANCER. A CLINICALLY SUSPICIOUS PALPABLE LUMP SHOULD BE BIOPSIED. RIGHT BREAST: No significant suspicious finding. Benign-appearing calcifications are present. Dictated by: Raul Suarez MD on 12/24/2024 at 09:59 Approved by: Raul Suarez MD on 12/24/2024 at 10:08 Dictated By: Raul Suarez M.D. Signed By:12/24/249 DD/ 08 TD/TT: Coach Builder: Tania Carmen DO IMG BI PROCEDURES Final Result from Last 3 Months Insurance [employer] [facility] [place]
--- OUTSIDE RECORDS SUMMARY | 2025-02-11 09:51 | XMS_ITS | Patient Health Record ---
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 Name Role Phone Noah, Kristyn Primary Care Provider Anna Cantor Unavailable [phone] Allergies Allergen (clinical drug ingredient) Drug/Non Drug Allergy documented on EMR Reaction Allergy Type Onset Date Status [place] Mold (uncoded) Unknown Allergy Active acetaminophen Tylenol Ringing ears Drug Allergy Active Cat dander Cat Dander Unknown Allergy Active Cannabis sativa whole extract Marijuana (Cannabis Sativa) Swelling Drug Allergy Active Spider Bites Edema/ Swelling Allergy A ctive Results Component Value Reference Range Notes TSH Reviewed date:11/09/2024 02:39:09 PM Interpretation: Performing Lab: Notes/Report: [facility] , Thyroid Stimulating Hormone 1.871 0.358-3.740 uIU/mL Performing Lab: see note ML - [facility] LB CBC AUTO DIFF Reviewed date:11/09/2024 02:39:09 PM Interpretation: Performing Lab: Notes/Report: [facility] , White Blood Count 4.9 4.0-11.0 10 3/uL Red Blood Count 4.30 4.20-5.40 10 6/uL Hemoglobin 13.1 12.0-16.0 g/dL Hematocrit 39.7 36.0-48.0 % Mean Corpuscular Volume 92.3 81.0-99.0 fL Mean Corpuscular Hemoglobin 30.5 26.7-34.0 pg Mean Corpuscular HGB Conc 33.0 29.9-35.2 g/dL Red Cell Distribution Width 12.9 11.0-15.0 % Platelet Count 279 150-450 10 3/uL Mean Platelet Volume 9.5 9.5-13.5 fL Neutrophils Percent Auto 55.5 43.0-75.0 % Lymphocytes Percent Auto 33.8 20.5-60.0 % Monocytes Percent Auto 6.8 1.7-12.0 % Eosinophils Percent Auto 2.7 0.9-7.0 % Basophils Percent Auto 1.0 0.2-2.0 % Immature Granulocytes Pct Auto 0.2 0.0-0.5 % Neutrophils Absolute Auto 2.7 1.4-6.5 10 3/uL Lymphocytes Absolute Auto 1.6 1.2-3.8 10 3/uL Monocytes Absolute Auto 0.3 0.3-0.8 10 3/uL Eosinophils Absolute Auto 0.1 0.0-0.7 10 3/uL Basophils Absolute Auto 0.1 0.0-0.1 10 3/uL Immature Granulocytes Abs Auto 0.01 0.00-0.03 10 3/uL Performing Lab: see note ML - [facility] LB CA segmental UE or LE CHRIS Reviewed date:09/27/2024 03:26:20 PM Interpretation: Performing Lab: Notes/Report: Source Facility: [place] [address] Cardiology Report Signed Patient: BRIGITTE HIGH MR#: [id number] : 1950 Acct:[id number] Age/Sex: 73 / F ADM Date: 09/15/24 Loc: CARD Attending Dr: KRISTYN DOUGHERTY Ordering Physician: KRISTYN DOUGHERTY Date of Service: 09/15/24 Procedure(s): CA segmental UE or LE CHRIS Accession Number(s): [id number] cc: KRISTYN DOUGHERTY [facility] Test Date: 2024-09-15 Pat Name: BRIGITTE HIGH Department: Room: - Gender: Female 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 Interpretive Statements Summary of the findings: Right leg: ALDO= 1.19; TBI= 0.10. Doppler waveforms demonstrate biphasic flow at the posterior tibial and dorsalis pedis arteries. Left leg: ALDO= 1.20; TBI= 0.33. Doppler waveforms demonstrate biphasic flow at the posterior tibial and dorsalis pedis arteries. Segmental pressures: Segmental pressures indicate significant infrapopliteal disease bilaterally. Pulse volume recordings: PVRs at the high thigh, below knee and ankle levels show normal waveforms. Conclusion: Right and left ankle-brachial indices are suggestive of normal overall arterial flow at rest. Toe-brachial indices are suggestive of PAD. Segmental pressures show significant infrapopliteal disease bilaterally. Pulse volume recordings indicate good overall resting arterial flow bilaterally. Electronically Signed On 09-25-2024 17:59:49 EST by LION BACON M.D. 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 Interpretive Statements Summary of the findings: Right leg: ALDO= 1.19 ; TBI= 0.10. Doppler waveforms demonstrate biphasic flow at the posterior tibial and dorsalis pedis arteries. Left leg: ALDO= 1.20; TBI= 0.33. Doppler waveforms demonstrate biphasic flow at the posterior tibial and dorsalis pedis arteries. Segmental pressures: Segmental pressures indicate significant infrapopliteal disease bilaterally. Pulse volume recordings: PVRs at the high thigh, below knee and ankle levels show normal waveforms. Conclusion: Right and left ankle-brachial indices are suggestive of normal overall arterial flow at rest. Toe-brachial indices are suggestive of PAD. Segmental pressures show significant infrapopliteal disease bilaterally. Pulse volume recordings indicate good overall resting arterial flow bilaterally. Electronically Nicolasa d On 09-25-2024 17:59:49 EST by LION BACON M.D. Dictated By: LION BACON Signed By: 09/25/24179909/25/241799 DD/ 1357 TD/TT: Soot Blower: US THYROID Reviewed date:02/18/2024 09:20:40 AM Interpretation: Performing Lab: Notes/Report: Source Facility: [place] [address] Ultrasound Report Signed Patient: BRIGITTE HIGH MR#: [id number] : 1950 Acct:[id number] Age/Sex: 73 / F ADM Date: 02/17/24 Loc: US Attending Dr: KRISTYN DOUGHERTY Ordering Physician: KRISTYN DOUGHERTY Date of Service: 02/17/24 Procedure(s): US thyroid Accession Number(s): [id number] cc: KRISTYN DOUGHERTY [place] [address] Patient Name: BRIGITTE HIGH MRN: [id number] date: 1950 Sex: F Assigned Patient Location: Current Patient Location: Accession/Order Number: [id number] Exam Date: 02/17/2024 14:00 Report Date: 02/18/2024 07:08 At the request of: KRISTYN DOUGHERTY Procedure: US thyroid EXAMINATION: US thyroid HISTORY: Nontoxic Single Thyroid Nodule E04.1 COMPARISON: 02/04/2023 TECHNIQUE: Sonographic images of the thyroid gland were obtained. FINDINGS: The right thyroid lobe measures 3.6 x 1.2 x 1.5 cm. Single 6 mm cystic nodule Thyroid isthmus measures 2.4 mm, homogeneous with no nodule. The left thyroid lobe measures 3.4 x 1.1 x 1.1 cm. Single nodule. Nodule 1:1.4 x 1.2 x 0.6 cm. Solid, hyperechoic, wide, smooth margins, no calcifications. TR 3 US/US thyroid IMPRESSION: Minimal increase in size of a now 1.4 cm left thyroid TR 3 nodule TI-RADS: The [employer] TI-RADS committee's white paper recommendations for thyroid lesions classified as TR3 (mildly suspicious) are listed below: > 1.5 cm. Follow-up ultrasound in 1, 3, and 5 years. > 2.5 cm. FNA. J. Am Eduardo Radiol 2017;14:587-595. Electronically authenticated by: ILDEFONSO HO Date: 02/18/2024 07:08 Dictated By: Ildefonso Ho M.D. Signed By: 02/18/2410 DD/ TD/TT: Soot Blower: [address] [address] Ultrasound Report Signed Patient: BRIGITTE HIGH MR#: [id number] : 1950 Acct:[id number] Age/Sex: 73 / F ADM Date: 02/17/24 Loc: US Attending Dr: KRISTYN DOUGHERTY Ordering Physician: KRISTYN DOUGHERTY Date of Service: 02/17/24 Procedure(s): US thyroid Accession Number(s): [id number] cc: KRISTYN DOUGHERTY [place] [id number] Patient Name: BRIGITTE HIGH MRN: [id number] date: 1950 Sex: F Assigned Patient Location: US Current Patient Location: Accession/Order Number: [id number] Exam Date: 02/17/2024 14:00 Report Date: 02/18/2024 07:08 At the request of: KRISTYN DOUGHERTY Procedure: US thyroid EXAMINATION: US thyroid HISTORY: Nontoxic Single Thyroid Nodule E04.1 COMPARISON: 02/04/2023 TECHNIQUE: Sonographic images of the thyroid gland were obtained. FINDINGS: The right thyroid lobe measures 3.6 x 1.2 x 1.5 cm. Single 6 mm cystic nodule Thyroid isthmus measures 2.4 mm, homogeneous with no nodule. The left thyroid lob e measures 3.4 x 1.1 x 1.1 cm. Single nodule. Nodule 1:1.4 x 1.2 x 0.6 cm. Solid, hyperechoic, wide, smooth margins, no calcifications. TR 3 US/US thyroid IMPRESSION: Minimal increase in size of a now 1.4 cm left thyroid TR 3 nodule TI-RADS: The [place] [employer] TI-RADS committee's white paper recommendations for thyroid lesions classified as TR3 (mildly suspicious) are listed below: > 1.5 cm. Follow-up ultrasound in 1, 3, and 5 years. > 2.5 cm. FNA. J. Am Eduardo Radiol 2017;14:587-595. Electronically authenticated by: ILDEFONSO HO Date: 02/18/2024 07:08 Dictated By: Ildefonso Ho M.D. Signed By: 02/18/2410 DD/ TD/TT: Soot Blower: MM tomosynthesis screening B I Reviewed date:12/24/2024 12:40:04 PM Interpretation: Performing Lab: Notes/Report: Source Facility: [place] [address] Mammography Report Signed Patient: BRIGITTE HIGH MR#: [id number] : 1950 Acct:[id number] Age/Sex: 74 / F ADM Date: 12/24/24 Loc: MAMMO Attending Dr: Tania Morales D.O. Ordering Physician: Tania Morales D.O. Results: Date of Service: 12/24/24 Follow Up: Procedure(s): MM tomosynthesis screening RT Accession Number(s): [id number] cc: KRISTYN DOUGHERTY ; Tania Morales D.O. Patient Name: BRIGITTE HIGH MR#: [id number] : 1950 Exam Date: 12/24/2024 Ordering Doctor: [...] colon cancer at age 53. LOCATION: [facility] BREAST COMPOSITION: The breasts are heterogeneously dense,which [...] Suarez M.D. Signed By: 12/24/24 1009 DD/ 1009 TD/TT: Soot Blower: [place] [address] Mammography Report Signed Patient: BRIGITTE HIGH MR#: [id number] : 1950 Acct:[id number] Age/Sex: 74 / F ADM Date: 12/24/24 Loc: MAMMO Attending Dr: Tania Morales D.O. Ordering Physician: Tania Morales D.O. Results: Date of Service: 12/24/24 Follow Up: Procedure(s): MM tomosynthesis screening RT Accession Number(s): [id number] cc: KRISTYN DOUGHERTY ; Tania Morales D.O. Patient Name: BRIGITTE HIGH MR#: [id number] : 1950 Exam Date: 12/24/2024 Ordering Doctor: [...] Ovarian Cancer No Treatments None Family Cancers Siste r with colon cancer at age 53. LOCATION: [facility] BREAST COMPOSITION: The breasts are heterogeneously dense,which may obscure small masses. FINDINGS: DIAGNOSTIC CATEGORY 2--BENIGN FINDING: RECOMMENDATIONS: ROUTINE MAMMOGRAM AN D CLINICAL EVALUATION IN 12 MONTHS. PLEASE NOTE: A JONATHAN L MAMMOGRAM DOES NOT EXCLUDE THE POSSIBILITY OF BREAST CANCER. A CLINICALLY SUSPICIOUS PALPABLE LUMP SHOULD BE BIOPSIED. RIGHT BREAST: No significant suspicious finding. Benign-appearing calcifications are present. Dictated by: Raul Suarez MD on 12/24/2024 at 09:59 Approved by: Raul Suarez MD on 12/24/2024 at 10:08 Dictated By: Raul Suarez M.D. Signed By: 12/24/24 1009 DD/ 1009 TD/TT: Soot Blower: VITAMIN D 25 [place] Reviewed date:11/09/2024 02:39:09 PM Interpretation: Performing Lab: Notes/Report: [facility] , Vitamin D 34.6 <20 ng/mL Vit D deficient >100 ng/mL Potential Toxicity 20-<30 ng/mL Vit D insufficient 30-100 ng/mL Vit D sufficient Performing Lab: see note ML - [facility] LB T4 Reviewed date:11/09/2024 02:39:09 PM Interpretation: Performing Lab: Notes/Report: [facility] , T4 Thyroxine 5.70 4.80-13.90 ug/dL Performing Lab: see note ML - [facility] LB PROF 14(COMP METB) Reviewed date:11/09/2024 02:39:09 PM Interpretation: Performing Lab: Notes/Report: [facility] , Sodium 143 136-145 mmol/L Potassium 3.7 3.5-5.1 mmol/L Chloride 108 98-107 mmol/L Carbon Dioxide 24.3 21.0-32.0 mmol/L Anion Gap 14.4 Glucose 90 74-106 mg/dL Blood Urea Nitrogen 11.0 7.0-18.0 mg/dL Creatinine 0.67 0.55-1.02 mg/dL Estimated GFR ( Geetha >60 >=60 mL/min/1.73m 2 Estimated GFR (Non- Dayana >60 >=60 mL/min/1.73m 2 BUN Creatinine Ratio 16.4 Calcium 9.4 8.5-10.1 mg/dL Bilirubin Total 0.4 0.2-1.0 mg/dL Aspartate Amino Transferase 26 15-37 U/L Alanine Aminotransferase 34 14-59 U/L Alkaline Phosphatase 86 46-116 U/L Total Protein 7.6 6.4-8.2 g/dL Albumin Level 3.7 3.4-5.0 g/dL Globulin 3.9 Albumin Globulin Ratio 0.9 Performing Lab: see note ML - [facility] LIPID PROFILE Reviewed date:11/09/2024 02:39:09 PM Interpretation: Performing Lab: Notes/Report: [facility] , Triglycerides 38 <=150 mg/dL Cholesterol 159 <=200 mg/dL HDL Cholesterol 99 40-60 mg/dL <40 mg/dl - HIGH CARDIOVASCULAR RISK > or =60 mg/dl - LOW CARDIOVASCULAR RISK LDL Cholesterol Calculated 53.0 <100 mg/dl OPTIMAL >190 mg/dl VERY HIGH 160-189 mg/dl HIGH 100-129 mg/dl NEAR OR ABOVE OPTIMAL 130-159 mg/dl BORDERLINE HIGH VLDL CHOLESTEROL 7.6 Chol HDL Ratio 1.6 >11.0 HIGH RISK 7.1 - 11.0 MODERATE RISK 3.3 - 4.4 LOW RISK 4.4 - 7.1 AVERAGE RISK Performing Lab: see note ML - [facility] IRON Reviewed date:11/09/2024 02:39:09 PM Interpretation: Performing Lab: Notes/Report: [facility] , Iron 59.0 50.0-170.0 ug/dL Performing Lab: see note ML - [facility] INSULIN Reviewed date:11/10/2024 10:55:47 AM Interpretation: Performing Lab: Notes/Report: [facility] , Insulin 5.3 2.6-24.9 uIU/mL [address] [place], [place] [id number] Blanket Inspector: Boris Rosen PhD, Phone: [phone] Performed at: [facility] Performing Lab: see note [facility] LB GLYCOHEMOGLOBIN A1C Reviewed date:11/09/2024 02:39:09 PM Interpretation: Performing Lab: Notes/Report: [facility] , Glycohemoglobin A1C 5.5 4.5-6.2 % ADA RECOMMENDED LIMIT 4.0 - 6.0 ACTION SUGGESTED ADA THERAPEUTIC TARGET < 7.0 > 7.0 Estimated Average Glucose 111 Performing Lab: see note - [facility] FREE T3 Reviewed date:11/09/2024 02:39:09 PM Interpretation: Performing Lab: Notes/Report: [facility] , Free T3 2.41 2.18-3.98 pg/mL Performing Lab: see note - [facility] LAB TESTING Reviewed date:11/11/2024 11:59:20 AM Interpretation: Performing Lab: Notes/Report: [id number] CA27.29 [facility] , Miscellaneous Test COMMENT . Performed at: [facility] be used interchangeably. Results cannot be interpreted as Test Ordered: [id number] CA 27.29 [employer] Immunochemiluminometric Methodology (ICMA) CA 27.29 44.9 [H ] U/mL Reference Range: 0.0-38.[address] [place] [phone] absolute evidence of the presence or absence of malignant Blanket Inspector: Boris Rosen PhD, Phone: [phone] disease. Values obtained with different assay methods or kits cannot Performing Lab: see note - [facility] Reason For Referral Diagnosis 1 BRBPR (bright red bl ood per rectum) (K62.5) Referral Organization [facility] Referring Provider First Name Kristyn Referring Provider Last Name Noah Referring Provider [facility] Referred Provider Specialty Gastroentero logy Referral Priority Routine Diagnosis 1 Black toe (I96) Referral Organization [facility] Referring Provider First Name Kristyn Referring Provider Last Name Noah Referring Provider [facility] Referred Provider Josh Casillas Referred Provider Specialty Podiatry Referral Priority Routine Reason Would like to be see n at [place] office please. Thank You. Diagnosis 1 Peripheral artery di sease (I73.9) Referral Organization [facility] Referring Provider First Name Kristyn Referring Provider Last Name Noah Referring Provider Speciality Family Med aaron Referred Provider Lexx Diop Referred Provider Specialty Vascular John zulma Referral Priority Routine Medications Medication SIG (Take, Route, Frequency, Duration) Notes Start Date End Date Status Rosuvastatin Calcium 20 MG 1 tablet Orally Once a day Active Ondansetron HCl 4 MG 1 tablet Orally BID prn for 7 days 02/08/2025 Active Turmeric Active predniSONE 20 MG 2 tablet Orally Once a day for 3 days 02/08/2025 Active Bimatoprost 0.03 % INSTILL 1 DROP INTO BOTH EYES IN THE EVENING ONCE A DAY for 30 Active Hair Skin & Nails Ac tive Ibuprofen 600 MG TAKE 1 TABLET BY ADONSI TH EVERY 6 TO 8 HOURS NEEDED for 25 PRN Active Multi Vitamin - 1 tablet Orally Once a day With Iron Active Neuriva - as directed Orally A ctive Social History Tobacco Use: Social History Observation Description Date Details (start date - stop date) Former Smoker NA - NA Tobacco Use/Smoking Question Answer Notes Patient is a former smoker How long has it been since you last smoked? > 10 years Alcohol Screen (Audit-C) Question Answer Notes Did you have a drink contain ing alcohol in the past year? Yes How often did you have 6 or more drinks on one occasion in the past year? Never (0 point) How many drinks did you have on a typical day when you were drinking in the past year? 1 or 2 drinks (0 point) How often did you have a dri nk containing alcohol in the past year? Monthly (2 points) Points 2 Interpretation Negative AUDIT-C (Standard) Question Answer Notes Did you have a drink containing alcohol in the p ast year? No Points 0 Interpretation Negative Problems Problem Type SNOMED Code ICD Code Onset Dates Problem Status W/U Status Risk Notes Problem Gastro-esophageal reflux disease without esophagitis (074112650) Gastro-esophagea l reflux disease without esophagitis (K21.9) Active confirmed Problem Overweight (618477745) Overweight (E66.3) Active confirmed Problem Osteoarthritis (391327458) Unspecified osteoarthritis, unspecified site (M19.90) Active confirmed Problem Dysuria (50809203) Dysuria (R30.0) Active confi rmed Problem 753309808 Unspecified abnormal finding in specimens from other organs, systems and tissues (R89.9) Active confirmed Problem Fatigue (13850521) Fatigue (R53.83) Active conf irmed Problem Peripheral artery disease (915601146) Peripheral artery disease (I73.9) Active confirmed Problem Arthritis (0378770) Arthritis (M19.90) Active confirmed Problem Personal history of primary malignant neoplasm of breast (638543298) History of breast cancer (Z85.3) Active confirmed Problem Back pain (972106248) Back pain (M54.9) Active confirmed Problem Osteoporosis (82536965) Osteoporosis (M81.0) Active confirmed Problem Colonic polyp (72598451) Colonic polyp (K63.5) Active confirmed Problem Breathing painful (46567095) Rib pain on left side (R07.81) Active confirmed Problem Non-toxic single thyroid nodule (815422186) Left thyroid nodule (E04.1) Active confirmed Problem Cystic acne (10371759) Cystic acne (L70.0) Active confirmed Problem Cervical dysfunction (M53.9) Active confirmed Problem Ex-smoker for more than 1 year (46856819435848) Ex-smoker for more than 1 year (Z87.891) Active confirmed Problem Ischemia of both lower extremities (I99.8) Active confirmed Problem Gangrenous disorder (028066815) Black toe (I96) Active confirmed Problem Cellulitis of toe (72774567) Paronychia of great toe (L03.039) Active confirmed Problem Chronic cough (91486728) Chronic cough (R05.3) Active confirmed Vital Signs Heart Rate 75 /min 09/09/2024 Temperature 97.9 degrees Fahrenheit 06/23/2024 Oximetry 92 % 09/09/2024 Blood pressure diastolic 80 mm Hg 02/08/2025 Height 65 in 02/08/2025 Blood pressure systolic 134 mm Hg 02/08/2025 Weight 153.8 lbs 02/08/2025 BMI 25.59 kg/m2 02/08/2025 Procedures Procedure Date Ordered Date Performed Result Body Sit e ALDO Segmental Pressure Study of Lower Extremity 09/08/2024 N/A Encounters Encounter Location Date Provider Diagnosis [facility] [address] [place] [address] 12/27/2024 Kristyn Dougehrty [facility] [address] [place] [address] 02/08/2025 Kristyn Dougherty Left thyroid nodule E04.1 [facility] [address] [facility] [address] 09/08/2024 Kristyn Dougherty BRBPR (bright red blood per rectum) K62.5 [facility] [address] [facility] [place] [address] 09/08/2024 Kristyn Dougherty Black toe I96 [facility] [address] [facility] [address] 09/21/2024 Kristyn Dougherty [facility] [address] [facility] [place] [address] 09/27/2024 Kristyn Dougherty Peripheral artery disease I73.9 [facility] [address] [facility] [place] [address] 11/09/2024 Kristyn Dougherty [facility] [address] [facility] [place] [address] 11/11/2024 Kristyn Dougherty [facility] [address] [facility] [place] [address] 02/18/2024 Kristyn Dougherty [facility] [address] [facility] [address] 04/14/2024 Kristyn Dougherty [facility] [address] [facility] [place] [address] 07/30/2024 Kristyn Dougherty [facility] [address] [facility] [address] 09/08/2024 Kristyn Dougherty [facility] [address] [facility] [address] 08/11/2024 Kristyn Dougherty Cellulitis L03.90 [facility] [address] [facility] [address] 09/08/2024 Kristyn Dougherty Black toe I96 and BRBPR (bright red blood per rectum) K62.5 [facility] [address] [facility] [place] [address] 02/08/2025 Kristyn Dougherty Wasp sting T63.461A [facility] (PODIATRY) [address] [place] [address] [place] [address] 09/09/2024 Anna Cantor Other injury of unspecified body region, initial encounter T14.8XXA and Blister (nonthermal), unspecified lesser toe(s), initial encounter S90.426A [address] [address] 06/23/2024 Kristyn Dougherty URI (upper respiratory infection) J06.[address] [address] 07/30/2024 Kristyn Noah Overweight E66.3 and Chronic cough R05.[address] [address] 11/09/2024 Kristyn Noah Overweight E66.3 ; Fatigue R53.83 and History of breast cancer Z85.[address] [address] 12/27/2024 Kristynfrank [facility] Paronychia L03.019 and Wellness examination Z00.00 Assessments Encounter Date Diagnosis (ICD Code) Assessment Notes Treatment Notes Treatment Clinical Notes Section Notes 06/23/2024 URI (upper respiratory infection) (ICD-10 - J06.9) hx smoking fu if not improving 07/30/2024 Overweight (ICD-10 - E66.3) 12/27/2024 Paronychia (ICD-10 - L03.019) continue warm soaks 12/27/2024 Wellness examination (ICD-10 - Z00.00) labs reviewed ROS done exam done recent mammogram follows with onc breast CA 02/08/2025 Wasp sting (ICD-10 - T63.461A) rest push fluids otc allergy meds ok for off work note 09/08/2024 BRBPR (bright red blood per rectum) (ICD-10 - K62.5) 09/08/2024 Black toe (ICD-10 - I96) 09/27/2024 Peripheral artery disease (ICD-10 - I73.9) 02/08/2025 Left thyroid nodule (ICD-10 - E04.1) 08/11/2024 Cellulitis (ICD-10 - L03.90) warm soaks TID close monitoring if not improving, worsens, needs to seek medical care 09/08/2024 Black toe (ICD-10 - I96) 2-3 weeks changed color numb was purple, red sore before that baby ASA daily , see wound care while waiting for aldo testing 09/08/2024 BRBPR (bright red blood per rectum) (ICD-10 - K62.5) referral to GI last colonoscopy 2021 increased BRBRP scant amt 09/09/2024 Other injury of unspecified body region, initial encounter (ICD-10 - T14.8XXA) The patient is a pleasant 73 year old female with former history of tobacco use who was sent by her PCP for evaluation of a black toe. The patient states this happened to the same toe about a year ago and resolved without specific intervention. Exam is consistent with a blood blister from mechanical irritation. It is not consistent with an exchar. Toe #4 overrides #5 and she has a pinch callus on the fat pad of the 5th toe. This blood blister is overlying the pinch callus. She does not have diabetes, is neurologically intact, and appears to be perfusing her feet well. She does have a fairly wide forefoot and her shoes appear narrow. I encouraged her to wear shoes with a wide toe box and use a toe separator or gauze between toes 4/5. She was given a silicone toe sleeve today to try out. I advised that this blister will likely peel off on its own. I offered to debride the area but she declined. She was encouraged to go ahead and have the arterial studies her PCP ordered. She is to followup with us is she develops any signs of infection or worsening of the discoloration. Blood Blister right 5th toe 09/09/2024 Blister (nonthermal), unspecified lesser toe(s), initial encounter (ICD-10 - S90.426A) 11/09/2024 Overweight (ICD-10 - E66.3) work on diet discussed my fitness pal karol to track calories increase protein, decrease carbs int fasting? 11/09/2024 Fatigue (ICD-10 - R53.83) 07/30/2024 Chronic cough (ICD-10 - R05.3) TRY OTC allergy pill and Flonase 11/09/2024 History of breast cancer (ICD-10 - Z85.3) Plan Of Treatment Pending Test Test Name Order Date CMP (COMPLETE METABOLIC PANEL) CMP (COMPLETE METABOLIC PANEL) 4 UA (URINALYSIS, COMPLETE) 05/27/2023 UA (URINALYSIS, COMPLETE) 07/22/2023 UA (URINALYSIS, COMPLETE) 08/01/2023 UA (URINALYSIS, COMPLETE) 07/17/2023 UA (URINALYSIS, COMPLETE) 05/22/2023 CA27.29 11/09/2024 CA27.29 09/11/2023 HEMOGLOBIN A1C (GLYCO) 09/11/2023 HEMOGLOBIN A1C (GLYCO) 11/09/2024 IRON, TOTAL 11/09/2024 IRON, TOTAL 09/11/2023 LIPID PANEL (CHOL/TRIG/HDL/LDL) 09/11/19 24 LIPID PANEL (CHOL/TRIG/HDL/LDL) 11/10/19 25 CBC WITH DIFF 09/11/2023 VITAMIN D, 25 LEVEL (TOTAL) 09/11/2023 VITAMIN D, 25 LEVEL (TOTAL) 11/09/2024 US Thyroid 02/04/2024 UA DIP NONAUTO WO MICRO (61503) - IN OFF ICE 05/22/2023 Urine Culture 07/22/2023 Urine Culture 08/01/2023 URINE CULTURE 05/22/2023 URINE CULTURE 07/17/2023 Insulin Level 11/09/2024 Insulin Level 09/11/2023 Covid-19 PCR (CVDTB[facility]) 12/25/2023 CULTURE URINE 05/27/2023 URINE MICROSCOPIC ONLY 08/01/2023 MG MAMM RT DIAG FU 11/28/2022 US THYROID 01/30/2023 US THYROID 02/08/2025 THYROID PANEL (T4/TSH/FREE T3) THYROID PANEL (T4/TSH/FREE T3) ALDO Segmental Pressure Study of Lower Ex tremity 09/08/2024 CMP (COMP MET LAMBERT) w/eGFR CKD-EPI 2024 CBC WITH DIFF 11/09/2024 Insurance Providers Payer Name Payer Address Payer Phone Subscriber Number Group Number Insured Name Patient Relationship to Insured Coverage Start Date Coverage End Date [place]IC[place] [address] [place] [address] [id number] Brigitte High Self - patient is the insured 3 MMO [employer] [address] [place] [phone] [id number] Brigitte High Self - patient is the insured 9 Medical (General) History Medical History History ICD Code Left thyroid nodule E04.1 Cervical dysfunction M53.9 Chronic cough R05.3 Overweight E66.3 Paronychia of great toe L03.039 Fatigue R53.83 Rib pain on left side R07.81 Back pain M54.9 Colonic polyp K63.5 Dysuria R30.0 Ex-smoker for more than 1 year Z87.891 History of breast cancer Z85.3 Cystic acne L70.0 Surgical History Surgery Date(Month/Year) breast reduction 03/20 Cataract Extraction- Bilateral Bond Teeth Extraction Bilateral Carpal Tunnel Surgery Left Side Masectomy with Reconstruction Neck Surgery Back Surgery
--- OUTSIDE RECORDS SUMMARY | 2025-02-11 09:51 | XMS_ITS | Encounter Summary ---
Author Organization [facility] Address [address] [place] [address] Care Team Providers Care Assistant Grocery Store Manager Name Role Phone Unavailable Primary Care Provider Unavailabl e Encounter Details Date Type Department Care Team (Late st Contact Info) Description 02/06/2024 Abstract [facility] OB [address] [place] [phone] Danielito Morales, DO [address] Cotton, [facility]11 Social History Tobacco Use Types Packs/Day Years Used Date Smoking Tobacco: Never Assessed Comments No Sex and Gender Information Value Date Recorded Sex Assigned at Not on file Legal Sex Female 12:54 PM EDT Gender Identity Not on file Sexual Orientation Not on file documented as of this encounter Plan of Treatment Not on file documented as of this encounter Visit Diagnoses Not on filedocumented in this encounter
--- OUTSIDE RECORDS SUMMARY | 2025-02-11 09:51 | XMS_ITS | Encounter Summary ---
Author Organization [facility] Address [address] [place] [address] Care Team Providers Care Health Occupations Instructor Name Role Phone Unavailable Primary Care Provider Unavailabl e Encounter Details Date Type Department Care Team (Late st Contact Info) Description 11/16/2024 Orders Only [facility] [address] [place] [phone] Jennifer Orlando LPN [address] [place] [id number] Social History Tobacco Use Types Packs/Day Years [...] Procedure Name Priority Date/Time Associated Diagnosis Comments PAP SMEAR Routine 11/18/2023 12:00 AM EDT documented in this encounter Results * Pap Smear (11/18/2023 12:00 AM EDT) Swab Cervical swab / Unknown us Carmen Nurse [facility] LAB CYTOLOGY ORDERABLES Final Result EXTERNAL LAB documented in this encounter Visit Diagnoses Not on filedocumented in this encounter
--- OUTSIDE RECORDS SUMMARY | 2025-02-11 09:51 | XMS_ITS | Encounter Summary ---
Author Organization [facility] Address [address] [place] [address] Care Team Providers Care Global Consumer Sector Vice President Name Role Phone Unavailable Primary Care Provider Unavailabl e Encounter Details Date Type Department Care Team (Late st Contact Info) Description 09/22/2024 Abstract [facility] OB [address] [place] [phone] Danielito Morales, DO [address] Cotton, [facility]11 Social History Tobacco Use Types Packs/Day Years [...]
--- OUTSIDE RECORDS SUMMARY | 2025-02-11 09:51 | XMS_ITS | Encounter Summary ---
Author Organization [facility] Address [address] [place] [address] Phone Care Team Providers Care Clip And Hanger Attacher Name Role Phone Azul Campbell DO Primary Care Provider [phone] Azul Campbell DO Unavailable [phone] Kristyn Zamora PSYCH NP-CONSTRUCTION DRILLER Primary Care Provider Ney Parkinson MD Unavailable [phone] Encounter Details Date Type Department Care Team (Late st Contact Info) Description 06/10/2019 Orders Only [facility] [address] [place] [address] Conversion, Onbase Social History Tobacco Use Types Packs/Day Years [...] Description 01/13/2026 10:00 AM EDT Office Visit [facility] [address] [place] [address] [place] [address] [place] [address] Scheduled Orders Name Type Priority Associated Diagnoses Orde r Schedule OUTSIDE LAB SCAN Lab Ordered: 06/10/2019 documented as of this encounter Visit Diagnoses Not on filedocumented in this encounter Care Teams Clip And Hanger Attacher Relationship Specialty Start Date End Date Azul Campbell DO [address] [place] [address] PCP - General 10/26/18 12/09/22 Azul Campbell DO On license of [facility] [place] [address] PCP - MSSP ACO Attributed Provider 07/28/21 10/25/22 Kristyn Zamora, PSYCH NP-CONSTRUCTION DRILLER [address] [place] [address] PCP - General 12/10/22 [place] [id number] [address] Consulting Physician Hematology and Oncology 09/16/23 documented as of this encounter
--- OUTSIDE RECORDS SUMMARY | 2025-02-11 09:51 | XMS_ITS | Encounter Summary ---
Author Organization [facility] Address [address] [place] [address] Care Team Providers Care Control And Recovery Combat Rescue Name Role Phone Unavailable Primary Care Provider Unavailabl e Encounter Details Date Type Department Care Team (Late st Contact Info) Description 12/24/2023 Clinisync Result Encounter [facility] External Department Unsolicited Danielito Morales, DO [address] [place] [address] Social History Tobacco Use Types Packs/Day Years [...] Diagnosis Comments BI MAMMOGRAM SCREENING TOMOSYNTHESIS RIGHT 12/24/2023 1:04 PM EDT documented in this encounter Results * Right screening mammogram with tomosynthesis (12/24/2023 1:04 PM EDT) Anatomical Region Laterality Modality Breast Right Mammography 12/24/2023 1:04 PM EDT Narrative 12/24/2023 1:06 PM EDT The [address] [place] [address] [address] Mammography Report Signed Patient: BRIGITTE HIGH MR#: [id number] : 1950 Acct:[id number] Age/Sex: 73 / F ADM Date: 12/24/23 Loc: MAMMO Attending Dr: Danielito Morales D.O. Ordering Physician: Danielito Morales D.O. Results: Date of Service: 12/24/23 Follow Up: Procedure(s): MM tomosynthesis screening RT Accession Number(s): [id number] cc: BART DOUGHERTY ; Danielito Morales D.O. Patient Name: BRIGITTE HIGH MR#: [id number] : 1950 Exam Date: 12/24/2023 Ordering Doctor: DR Danielito Morales . RADIOLOGY REPORT PROCEDURE: MM TOMOSYNTHESIS SCREENING RT COMPARISON: MG MAMM DX 3D RT CAD, 12/18/2022. INDICATIONS: Screening Calculator Name NCI Breast Cancer Risk Assessment Tool 5 Year Breast Cancer Risk n/a% Lifetime Breast Cancer Risk n/a% Personal Breast Cancer Yes, 48, mastectomy Personal Ovarian Cancer No Treatments None Family Cancers Sister with colon cancer at age 54. LOCATION: The [facility] BREAST COMPOSITION: The breasts are heterogeneously dense,which may obscure small masses. FINDINGS: DIAGNOSTIC CATEGORY 2--BENIGN FINDING: Scattered benign-appearing calcifications are present. RIGHT BREAST: No significant suspicious finding. LEFT BREAST: No significant suspicious finding. RECOMMENDATIONS: ROUTINE MAMMOGRAM AND CLINICAL EVALUATION IN 12 MONTHS. PLEASE NOTE: A NORMAL MAMMOGRAM DOES NOT EXCLUDE THE POSSIBILITY OF BREAST CANCER. A CLINICALLY SUSPICIOUS PALPABLE LUMP SHOULD BE BIOPSIED. Dictated by: Jef Torres MD on 12/24/2023 at 13:03 Approved by: Jef Torres MD on 12/24/2023 at 13:04 Dictated By: Jef Torres M.D. Signed By: 12/24/23 1306 DD/ 1304 TD/TT: Assistant Financial Accountant: Procedure Note Radiology, Radiologist, MD - 12/24/2023 [place] [address] Mammography Report Signed Patient: BRIGITTE HIGHMR#: [id number] : 1950Acct:[id number] Age/Sex: 73 / FADM Date: 12/24/23 Loc: MAMMO Attending Dr: Danielito Morales D.O. Ordering Physician: Danielito Morales D.O.Results: Date of Service: 12/24/23Follow Up: Procedure(s): MM tomosynthesis screening RT Accession Number(s): [id number] cc: BART DOUGHERTY ; Danielito Morales D.O. Patient Name: BRIGITTE HIGH MR#: [id number] : 1950 Exam Date: 12/24/2023 Ordering Doctor: DR Danielito Morales . RADIOLOGY REPORT PROCEDURE: MM TOMOSYNTHESIS SCREENING RT COMPARISON: MG MAMM DX 3D RT CAD, 12/18/2022. INDICATIONS: Screening Calculator Name NCI Breast Cancer Risk Assessment Tool 5 Year Breast Cancer Risk n/a% Lifetime Breast Cancer Risk n/a% Personal Breast Cancer Yes, 48, mastectomy Personal Ovarian Cancer No Treatments None Family Cancers Sister with colon cancer at age 54. LOCATION: The [facility] BREAST COMPOSITION: The breasts are heterogeneously dense,which may obscure small masses. FINDINGS: DIAGNOSTIC CATEGORY 2--BENIGN FINDING: Scattered benign-appearing calcifications are present. RIGHT BREAST: No significant suspicious finding. LEFT BREAST: No significant suspicious finding. RECOMMENDATIONS: ROUTINE MAMMOGRAM AND CLINICAL EVALUATION IN 12 MONTHS. PLEASE NOTE: A NORMAL MAMMOGRAM DOES NOT EXCLUDE THE POSSIBILITY OFBREAST CANCER. A CLINICALLY SUSPICIOUS PALPABLE LUMP SHOULD BE BIOPSIED. Dictated by: Jef Torres MD on 12/24/2023 at 13:03 Approved by: Jef Torres MD on 12/24/2023 at 13:04 Dictated By: Jef Torres M.D. Signed By:12/24/23 1306 DD/ 1304 TD/TT: Assistant Financial Accountant: Danielito Morales DO IMG BI PROCEDURES Final Result documented in this encounter Visit Diagnoses Not on filedocumented in this encounter
--- OUTSIDE RECORDS SUMMARY | 2025-02-11 09:51 | XMS_ITS | Encounter Summary ---
Author Organization [facility] Address [address] [place] [address] Care Team Providers Care Skein Inspector Name Role Phone Unavailable Primary Care Provider Unavailabl e Encounter Details Date Type Department Care Team (Late st Contact Info) Description 12/26/2023 Clinisync Result Encounter [facility] External Department Unsolicited Tania Morales DO [address] [facility] [place] [address] Social History Tobacco Use Types [...] Procedure Name Priority Date/Time Associated Diagnosis Comments XR DEXA AXIAL SKELETON 12/26/2023 11:59 AM EDT documented in this encounter Results * XR DEXA AXIAL SKELETON (12/26/2023 11:59 AM EDT) Anatomical Region Laterality Modality Other 12/26/2023 11:5 9 AM EDT Narrative 12/26/2023 12:02 PM EDT The [address] [address] XRay Report Signed Patient: BRIGITTE HIGH MR#: [id number] : 1950 Acct:[id number] Age/Sex: 73 / F ADM Date: 12/26/23 Loc: RAD Attending Dr: Tania Morales D.O. Ordering Physician: Tania Morales D.O. Date of Service: 12/26/23 Procedure(s): XR DEXA axial skeleton Accession Number(s): [id number] cc: BART DOUGHERTY ; Tania Morales D.O. The [address] [address] Patient Name: BRIGITTE HIGH MRN: [facility]:[id number] date: 1950 Sex: F Assigned Patient Location: RAD Current Patient Location: RAD Accession/Order Number: [id number] Exam Date: 12/26/2023 09:53 Report Date: 12/26/2023 11:59 At the request of: TANIA MORALES Procedure: XR DEXA axial skeleton EXAMINATION: XR DEXA axial skeleton HISTORY: Post Menopausal State Z78.0 COMPARISON: No relevant comparison available. TECHNIQUE: Dual-energy X-ray absorptiometry (DXA) was performed. FINDINGS: SPINE ANALYSIS: Prior back surgery. HIP ANALYSIS: Lowest bone mineral density is within the right femoral neck, 0.659 g/cm2. T-score (standard deviation relative to young adult mean): -2.7 . XR/XR DEXA axial skeleton IMPRESSION: [employer] Organization Classification: Osteoporosis - High Fracture Risk FRAX: Cannot be calculated. Electronically authenticated by: XAVIER BAILEY Date: 12/26/2023 11:59 Dictated By: Xavier Bailey M.D. Signed By: 12/26/23 1202 DD/ 1159 TD/TT: Block Cleaner: Procedure Note Radiology, Radiologist, MD - 12/26/2023 The [place] [id number] XRay Report Signed Patient: BRIGITTE HIGHMR#: [id number] : 1950Acct:[id number] Age/Sex: 73 / FADM Date: 12/26/23 Loc: RAD Attending Dr: Tania Morales D.O. Ordering Physician: Tania Morales D.O. Date of Service: 12/26/23 Procedure(s): XR DEXA axial skeleton Accession Number(s): [id number] cc: BART DOUGHERTY ; Tania Morales D.O. The [place] [id number] Patient Name: BRIGITTE HIGH MRN: [id number] date: 1950 Sex: F Assigned Patient Location: RAD Current Patient Location: RAD Accession/Order Number: [id number] Exam Date: 12/26/2023 09:53 Report Date: 12/26/2023 11:59 At the request of: TANIA MORALES Procedure: XR DEXA axial skeleton EXAMINATION: XR DEXA axial skeleton HISTORY: Post Menopausal State Z78.0 COMPARISON: No relevant comparison available. TECHNIQUE: Dual-energy X-ray absorptiometry (DXA) was performed. FINDINGS: SPINE ANALYSIS: Prior back surgery. HIP ANALYSIS: Lowest bone mineral density is within the right femoral neck, 0.659 g/cm2. T-score (standard deviation relative to young adult mean): -2.7 . XR/XR DEXA axial skeleton IMPRESSION: [employer] Organization Classification: Osteoporosis - High Fracture Risk FRAX: Cannot be calculated. Electronically authenticated by: XAVIER BAILEY Date: 12/26/2023 11:59 Dictated By: Xavier Bailey M.D. Signed By:12/26/23 1202 DD/ 1159 TD/TT: Block Cleaner: Tania Morales DO [facility] Final Result documented in this encounter Visit Diagnoses Not on filedocumented in this encounter
--- NOTE | 2025-02-11 09:56 | US_ITS ---
The [address] [address] Patient Name: SALOMÓN ROMERO MRN: [id number] date: 1950 Sex: F Assigned Patient Location: US Current Patient Location: Accession/Order Number: [id number] Exam Date: 02/12/2025 00:25 Report Date: 02/12/2025 00:29 At the request of: BART DOUGHERTY Procedure: US thyroid US thyroid 02/11/2025 11:09 AM SIGNS AND SYMPTOMS: ^Left Thyroid Nodule COMPARISON: 02/17/2024, 02/04/2023, and 10/18/2022 FINDINGS: Right and left thyroid lobes are normal in size and echotexture. The right thyroid lobe measures 3.7 x 1.5 x 1.4 cm and the left thyroid lobe measures 4.2 x 1.3 x 1.4 cm. The isthmus measures 3 mm in thickness. There is a predominant cystic wider than tall well-circumscribed nodule on the right leg and calcifications measuring up to 7 mm in greatest dimension. There is a nearly isoechoic ill-defined solid appearing nodule near the inferior pole the left thyroid lobe gland calcification. This is wider than tall and measures approximately 1.3 cm in greatest dimension. No cervical lymphadenopathy is noted. US/US thyroid IMPRESSION: TIRADS: 3 (mildly suspicious) There is a mildly suspicious nodule in the left thyroid lobe which is essentially unchanged dating back to the October 18, 2022 study. This study serves as the two-year follow-up. Continued follow-up at years 3 and 5 is recommended. Impression dictated by: Rual Suarez M.D. 02/12/2025 12:29 AM Dictation Location: [place] [address] Electronically authenticated by: [id number] Y Date: 02/12/2025 00:29
--- OUTSIDE RECORDS SUMMARY | 2025-02-11 10:11 | XMS_ITS | CCD ---
Author Organization [facility] Care Team Providers Care Baker Second Name Role Phone Jing Campbell Unavailable Unavailable [...] Provider KRISTYN DOUGHERTY S Primary Care Physician [phone] Lawrence MEDINA Referring Unavailable ADRIAN, JING KEREN Primary Care Unavailabl e Lawrence MEDINA Attending Unavailable ADRIAN, JING KEREN Primary Care Unavailabl Star Parnell Attending Unavailable Star Recinos Admitting Unavailable MD Star Recinos Attending Provider [phone] [place], Jadyn Consulting Unavailable Ladonna, Kristyn Primary [...] Attending Unavailable Ladonna, Kristyn Referring Unavailable Ladonna HYDROLOGIC MODELER-Gunjan MORGANela S Primary Care Provider Carlito Horvath MD Unavailable [phone] Kristyn Dougherty CNP S Primary Care Provider RECINOS, Star R Attending Unavailable RECINOS, Star R Attending Unavailable RECINOS, Star R Attending Unavailable RECINOS, Star R Attending Unavailable RECINOS, Star R Attending Unavailable RECINOS, Star R Attending Unavailable Unavailable Primary Care Provider Unavailmaricruz Dougherty HYDROLOGIC MODELER-SYSTEMS INTEGRATION ANALYST, Kristyn S Primary Care Provider Unavailable Primary Care Provider UnavailDANIELITO Edwards Attending Unavailable LADONNA, KRISTYN S Primary Care Unavailable Ladonna HYDROLOGIC MODELER-SYSTEMS INTEGRATION ANALYST, Kristyn S Primary Care Provider Carlito Horvath MD Unavailable CARLITO HORVATH Attending Unavailable CARLITO HORVATH Referring Unavailable LADONNA, KRISTYN S Primary Care Unavailable Allergies Allergy Classification Reported Allergen(s) Allergy Type Date of Onset Reaction(s) Facility Acetaminophen (9 sources) Acetaminophen; Translations: [Tylenol] Drug Allergy AX-XMDG-Ccqc 2535A Work Phone: (20 sources) Acetaminophen; Translations: [Tylenol] Drug Allergy Tinnitus (finding) [facility] (20 sources) Codeine; Translations: [Codeine Derivatives] Drug Allergy 3 Unknown, Other (See Comments) MZ-ZXHX-Snzv 2535A Work Phone: (15 sources) Mold Extract Drug Allergy XV-JLGT-Cktr 2535A Work Phone: (15 sources) [place] mold Allergy to substance (finding) AO-VFSP-Rwpi 2535A Work Phone: (5 sources) Animal dander - Cats Allergy to substance (finding) RD-IDLM-Izif 2535A Work Phone: (12 sources) Acetaminophen; Translations: [ACETAMINOPHEN] Drug Allergy 3 Other: See Comments, Unknown, Other (See Comments), Tinnitus [facility] (1 source) Environmental Allergies: Uncoded; Translations: [Environmental Allergies: Uncoded] Propensity to adverse reactions (disorder) 4 [facility] (1 source) cat dander Drug allergy (disorder) 4 [facility] (4 sources) Acetaminophen Drug Allergy 3 Unknown, Tinnitus [facility] (2 sources) Codeine; Translations: [CODEINE] Drug Allergy 3 [facility] 2 Repository Medications Current Medications Medication Drug Class(es) [...] 30 tab(s), Refills(s) 1, Pharmacy: [facility]/pharmacy #[id number], 165, cm, 08/25/23 12:11:00 EST, Height/Length [...] Campbell DO Start : 29-Oct-2021 Active B Issfdmp-Hsjbcq-CT (GNP B-100 Complex) tablet controlled-release (4 sources) B Complex-Biotin -FA (GNP B-100 Complex) tablet controlled-release Take by mouth Active bimatoprost 0.3 mg/ml topical solution (20 sources) Prostaglandin Analog Start: 3 bimatoprost (Latisse) 0.03 % ophthalmic solution Indications: [...] Bedtime Quantity: 1 Refills: 3 Ordered: 29-Oct-2021 Adrian DO Jing Active Biotin (3 sources) BIOTIN ORAL Take by mouth. Active [...] mg / cholecalciferol 200 unt oral tablet (5 sources) Vitamin D Start: 03-28-20 15 take [...] tablet (50 mcg) by mouth once daily. 07/10/2020 Active Start: 07-10-2020 take 1 tablet by sophia th once daily cholecalciferol (Vitamin D-3) 50 MCG (2000 UT) tablet Take 1 tablet (2,000 Units) by mouth once daily. 07/10/2020 Active clopidogrel 75 mg oral tablet (2 sources) P2Y12 Platelet Inhibitor Start: 10-21-2024 take 1 tablet by mouth in the morning clopidogreL (PLAVIX) 75 mg tablet Take 1 tablet (75 mg total) by mouth in the morning. 60 tablet 3 10/21/2024 Active tjnqwa-lbvsgesb-rpv eroxide dis (NEURIVA DE-STRESS) 100-200-10 mg capsule (2 sources) take 1 tablet by mouth in the morning jjrdth-jafsguko-oo peroxide dis (NEURIVA DE-STRESS) 100-200-10 mg capsule Take 1 tablet by mouth in the morning. Active doxycycline hyclate 100 mg oral capsule (20 sources) Tetracycline-clas s Drug Start: 10-29-2021 doxycycline (Vibramycin) 100 mg [...] 2023 12:00am ibuprofen 600 mg oral tablet (15 sources) Nonsteroidal Anti-inflammatory Drug Start: 07-20-2023 ibuprofen [...] needed Active lubiprostone 0.024 mg oral capsule (2 sources) Chloride Channel Activator Start: 09-21-2024 take 1 capsule by mouth twice daily at mealtime lubiprostone (AMITIZA) 24 mcg capsule Take 1 capsule by mouth two times a day with meals. 60 capsule 5 09/21/2024 Active methylPREDNISolone 4 mg oral tablet (3 sources) Corticosteroid Start: 12-21-2023 take 1 tablet by mouth once Methylprednisolone (Medrol (John Paul)) 4 mg tablets,dose pack Active 0 PO per package directions December 21, 2023 12:00am PO PER PKG DIR Start: 04-12-2022 methylPREDNISo lone (Medrol Dospak) 4 mg tablets Take by mouth. 04/12/2022 Active 24 hr mirabegron 50 mg extended release oral tablet (7 sources) beta3-Adrenergic Agonist Start: 09-08-2023 take 1 tablet by mouth once daily Myrbetriq 50 MG 24 hr tablet Take 50 mg by mouth Daily 09/08/2023 Active uhlvldud-hnc-sdfrw acid-lutein 0.4-250 mg-mcg tablet (2 sources) take 1 tablet by mouth once in the morning qoudxtbd-gmb-nwwn c acid-lutein 0.4-250 mg-mcg tablet Take 1 tablet by mouth in the morning. Active multivitamin (DAILY MULTIPLE) tablet (5 sources) Start: 03-28-2015 take 1 tablet by mouth once daily multivitamin (DAILY MULTIPLE) tablet Take 1 tablet by mouth once daily. 0 03/28/2015 Active Comment on above: Take 1 tablet by sophia th once daily. multivitamin (Theragran) tablet (4 sources) multivitamin (Theragran) tablet Active multivitamin with iron (4 sources) Start: 08-25-2023 multivitamin with iron mL, Refill(s) 0 Start Date: 08/25/23 Status: Ordered omeprazole 40 mg delayed release oral capsule (6 sources) Proton Pump Inhibitor Start: 03-14-2023 take [...] 21-Nov-2022 Active plecanatide 3 mg oral tablet (3 sources) Start: 09-21-2024 take 1 tablet by [...] daily at bedtime. 04/04/2021 Active Turmeric extract (9 sources) Turmeric (QC Tumeric Complex) 500 MG capsule Take by mouth Active take 1 tablet by mouth in the mo rning TURMERIC ORAL Take 1 tablet by mouth in the morning. Active TURMERIC ORAL Ta ke by mouth. Active vit B complex 100 combo no.2 (B-100 Complex) 100 mg tablet extended release (2 sources) vit B complex 10 0 combo no.2 [...] sodium 75 mg delayed release oral tablet (6 sources) Nonsteroidal Anti-inflammatory Drug Start: 07-06-2022 Diclofenac [...] Start : 20-Feb-2021 Active polyethylene glycol 3350 984700 mg / potassium chloride 2970 mg / sodium bicarbonate 6740 mg / sodium chloride 5860 mg / sodium sulfate 20868 mg powder for oral solution (2 sources) [...] kidney] Onset: 10-06-2023 Episodic Cancer of breast (10 sources) Malignant neoplasm of unspecified site of unspecified female breast; Translations: [Malignant neoplasm of central part of female breast] Onset: 01-17-2023 01-16-2024 Chronic Cancer of breast (20 sources) History [...] Complications of surgical procedures or medical care (16 sources) Postablative ovarian failure; Translations: [Postablative ovarian failure] Onset: 09-05-2022 09-05-2022 Chronic Deficiency and other anemia (4 sources) Anemia 08-25-2023 Episodic Developmental disorders (1 source) Word finding difficulty ; Translations: [Word finding difficulty] Chronic Disorders of lipid metabolism (2 sources) Hyperlipidemia, unspecified; Translations: [HYPERLIPIDEMIA UNSPECIFIED] Onset: 08-21-2022 Chronic Fracture of lower limb (7 sources) Closed fracture of patella; Translations: [Closed fracture of patella] Onset: 01-19-2024 01-19-2024 Episodic Gastroduodenal ulcer (except hemorrhage) (5 sources) Peptic ulcer, site unspecified, unspecified as [...] deficiency] Onset: 09-05-2022 09-05-2022 Chronic Nutritional deficiencies (8 sources) Iron deficiency; Translations: [Iron deficiency] Onset: 01-19-2024 01-16-2024 Episodic Osteoarthritis (20 sources) Arthritis; Translations: [...] (4 sources) Hearing loss 08-25-2023 Chronic Other eye disorders (4 sources) Dry eyes; Translations: [Dry eye syndrome of bilateral lacrimal glands] Onset: 01-19-2024 01-19-2024 Episodic Other female genital disorders (6 sources) Vaginal [...] Episodic Other nutritional; endocrine; and metabolic disorders (5 sources) Lipodystrophy; Translations: [Lipodystrophy, not elsewhere classified] [...] symptoms] Episodic Residual codes; unclassified (2 sources) Other specified postprocedural states; Translations: [Other specified postprocedural states] Onset: 02-04-2024 Episodic Residual codes; unclassified (4 sources) Estrogen receptor negative status [ER-]; Translations: [Estrogen receptor negative status (ER-)] Onset: 01-19-2024 Episodic Screening and history of mental health and substance abuse codes (20 sources) H/O: depression; Translations: [H/O: anxiety state] Onset: 08-25-2023 Resolved: 07-17-2020 Episodic Comment on above: Depression; Spondylosis; intervertebral disc disorders; other back problems (15 sources) Cervical radiculopathy; Translations: [Disorder of lumbar [...] Date Documented Da te Episodic/Chronic Acute bronchitis (17 sources) Acute bronchitis; Translations: [Acute bronchitis] Onset: [...] 09-05-2022 09-05-2022 Episodic Other connective tissue disease (9 sources) Swelling of finger ; Translations: [Swelling of limb] Onset: 09-05-2022 09-05-2022 Episodic Other diseases of bladder and urethra (16 sources) Prolapse of urethral mucosa; Translations: [Prolapsed urethral mucosa] Onset: 09-05-2022 09-05-2022 Episodic Other female genital disorders (8 sources) History of gynecological disorder; Translations: [Personal history of other genital system and obstetric disorders] Resolved: 01-07-2022 Episodic Other gastrointestinal disorders (20 sources) Constipation; Translations: [Constipation, unspecified] Onset: 09-05-2022 09-05-2022 Episodic Other gastrointestinal disorders (4 sources) Altered bowel function; Translations: [Other symptoms involving digestive system] Onset: 09-05-2022 09-05-2022 Episodic Other inflammatory condition of skin (20 sources) Prurigo simplex ; Translations: [Prurigo] Onset: 09-05-2022 09-05-2022 Episodic Other inflammatory condition of skin (1 source) Pruritic rash; Translations: [Other prurigo] Onset: 09-05-2022 09-05-2022 Episodic Other injuries and [...] Episodic Other nutritional; endocrine; and metabolic disorders (16 sources) Body mass index 25-29 - overweight; Translations: [Overweight] Onset: 09-05-2022 09-05-2022 Episodic Other nutritional; endocrine; and metabolic disorders (1 source) Weight decreased; Translations: [Abnormal weight loss] Onset: 09-05-2022 09-05-2022 Episodic Other skin disorders [...] Onset: 09-05-2022 09-05-2022 Episodic Residual codes; unclassified (16 sources) History of hysterectomy for benign disease; Translations: [Acquired absence of both cervix and uterus] Onset: 09-05-2022 09-05-2022 Episodic Spondylosis; intervertebral disc disorders; other back problems (20 sources) Radiculopathy, cervical region; Translations: [Neck pain] Onset: 05-07-2018 Episodic Unclassified (1 source) M54.16 84341 Onset: 10-18-2017 Unclassified (1 source) Patient encounter [...] Test Name Value Interpretation Reference Range Facility CBC W Auto Differential pane l (Bld)on 01-14-2025 Basophils (Bld) [#/Vol] 0.05 x10*3/uL Normal 0.00-0.10 [facility] Comment on above: Performed By: #### 5 7021-8 #### SERJIO LINARES ([id number]) [facility] ([facility]) [address] [place] [address] [place] [address] Basophils/100 WBC (Bld) 0.9 % Normal 0.0-2.0 [facility] Comment on above: Performed By: #### 5 7021-8 #### SERJIO LINARES ([id number]) [facility] ([facility]) [address] [place] [address] [place] [address] Eosinophils (Bld) [#/Vol] 0.16 x10*3/uL Normal 0.00-0.40 [facility] Comment on above: Performed By: #### 5 7021-8 #### SERJIO LINARES ([id number]) [facility] ([facility]) [address] [place] [address] [place] [address] Eosinophils/100 WBC (Bld) 2.8 % Normal 0.0-6.0 [facility] Comment on above: Performed By: #### 5 7021-8 #### SERJIO LINARES ([id number]) [facility] ([facility]) [address] [place] [address] [place] [address] Erythrocyte distribution width (RBC) [Ratio] 13.3 % Normal 11.5-14.5 [facility] Comment on above: Performed By: #### 5 7021-8 #### SERJIO LINARES ([id number]) [facility] ([facility]) [address] [place] [address] [place] [address] Hematocrit (Bld) [Volume fraction] 38.2 % Normal 36.0-46.0 [facility] Comment on above: Performed By: #### 5 7021-8 #### SERJIO LINARES ([id number]) [facility] ([facility]) [address] [place] [address] [place] [address] Hemoglobin (Bld) [Mass/Vol] 12.4 g/dL Normal 12.0-16.0 [facility] Comment on above: Performed By: #### 5 7021-8 #### SERJIO LINARES ([id number]) [facility] ([facility]) [address] [place] [address] [place] [address] Immature granulocytes (Bld) [#/Vol] 0.00 x10*3/uL Normal 0.00-0.50 [facility] Comment on above: Performed By: #### 5 7021-8 #### SERJIO LINARES ([id number]) [facility] ([facility]) [address] [place] [address] [place] [address] Immature granulocytes/100 WBC (Bld) 0.0 % Normal 0.0-0.9 [facility] Comment on above: Result Comment: Sandee ture Granulocyte Count (IG) includes promyelocytes, myelocytes and metamyelocytes but does not include bands. Percent differential counts (%) should be interpreted in the context of the absolute cell counts (cells/UL). Performed By: #### 5 7021-8 #### SERJIO LINARES ([id number]) [facility] ([facility]) [address] [place] [address] [place] [address] Lymphocytes (Bld) [#/Vol] 1.79 x10*3/uL Normal 0.80-3.00 [facility] Comment on above: Performed By: #### 5 7021-8 #### SERJIO LINARES ([id number]) [facility] ([facility]) [address] [place] [address] [place] [address] Lymphocytes/100 WBC (Bld) 31.4 % Normal 13.0-44.0 [facility] Comment on above: Performed By: #### 5 7021-8 #### SERJIO LINARES ([id number]) [facility] ([facility]) [address] [place] [address] [place] [address] MCH (RBC) [Entitic mass] 30.5 pg Normal 26.0-34.0 [facility] Comment on above: Performed By: #### 5 7021-8 #### SERJIO LINARES ([id number]) [facility] ([facility]) [address] [place] [address] [place] [address] MCHC (RBC) [Mass/Vol] 32.5 g/dL Normal 32.0-36.0 [facility] Comment on above: Performed By: #### 5 7021-8 #### SERJIO LINARES ([id number]) [facility] ([facility]) [address] [place] [address] [place] [address] MCV (RBC) [Entitic vol] 94 fL Normal 80-100 [facility] Comment on above: Performed By: #### 5 7021-8 #### SERJIO LINARES ([id number]) [facility] ([facility]) [address] [place] [address] [place] [address] Monocytes (Bld) [#/Vol] 0.39 x10*3/uL Normal 0.05-0.80 [facility] Comment on above: Performed By: #### 5 7021-8 #### SERJIO LINARES ([id number]) [facility] ([facility]) [address] [place] [address] [place] [address] Monocytes/100 WBC (Bld) 6.8 % Normal 2.0-10.0 [facility] Comment on above: Performed By: #### 5 7021-8 #### SERJIO LINARES ([id number]) [facility] ([facility]) [address] [place] [address] [place] [address] Neutrophils (Bld) [#/Vol] 3.31 x10*3/uL Normal 1.60-5.50 [facility] Comment on above: Result Comment: Perc ent differential counts (%) should be interpreted in the context of the absolute cell counts (cells/uL). Performed By: #### 5 7021-8 #### SERJIO LINARES ([id number]) [facility] ([facility]) [address] [place] [address] [place] [address] Neutrophils/100 WBC (Bld) 58.1 % Normal 40.0-80.0 [facility] Comment on above: Performed By: #### 5 7021-8 #### SERJIO LINARES ([id number]) [facility] ([facility]) [address] [place] [address] [place] [address] Platelets (Bld) [#/Vol] 237 x10*3/uL Normal 150-450 [facility] Comment on above: Performed By: #### 5 7021-8 #### SERJIO LINARES ([id number]) [facility] ([facility]) [address] [place] [address] [place] 157[address] RBC (Bld) [#/Vol] 4.07 x10*6/uL Normal 4.00-5.20 [facility] Comment on above: Performed By: #### 5 7021-8 #### SERJIO LINARES ([id number]) [facility] ([facility]) [address] [place] [address] [place] [address] WBC (Bld) [#/Vol] 5.7 x10*3/uL Normal 4.4-11.3 [facility] Comment on above: Performed By: #### 5 7021-8 #### SERJIO LINARES ([id number]) [facility] ([facility]) [address] [place] [address] [place] [address] Cancer Ag -29on 01-14-2025 Cancer Ag 27-29 Qn 43.5 [arb'U]/mL High 0.0-38.6 U [facility] Comment on above: Order Comment: CA 27 .29 testing is performed by chemiluminescent immunoassay using the Siemens Chasm.io (formerly [employer]ah[employer]y). Values obtained with different analytic methods cannot [...] or patient management decisions. Performed By: #### 1 7842-6 #### SHA Gould ([id number]) [facility] ([facility]) [address] [place], [place] [id number] Comprehensive metabolic 2000 panelon 01-14-2025 Albumin BCP dye [Mass/Vol] 4.3 g/dL Normal 3.4-5.0 [facility] Comment on above: Performed By: #### 2 4323-8 #### SERJIO LINARES ([id number]) [facility] ([facility]) [address] [place] [address] [place] [address] ALP [Catalytic activity/Vol] 68 U/L Normal 33-136 [facility] Comment on above: Performed By: #### 2 4323-8 #### SERJIO LINARES ([id number]) [facility] ([facility]) [address] [place] [address] [place] [address] ALT With P-5'-P [Catalytic activity/Vol] 21 U/L Normal 7-45 [facility] Comment on above: Result Comment: Luanne ents treated with Sulfasalazine may generate falsely decreased results for ALT. Performed By: #### 2 4323-8 #### SERJIO LINARES ([id number]) [facility] ([facility]) [address] [place] [address] [place] [address] Anion gap [Moles/Vol] 12 mmol/L Normal 10-20 [facility] Comment on above: Performed By: #### 2 4323-8 #### SERJIO LINARES ([id number]) [facility] ([facility]) [address] [place] [address] [place] [address] AST With P-5'-P [Catalytic activity/Vol] 20 U/L Normal 9-39 [facility] Comment on above: Performed By: #### 2 432-8 #### SERJIO LINARES ([id number]) [facility] ([facility]) [address] [place] [address] [place] [address] Bilirubin [Mass/Vol] 0.4 mg/dL Normal 0.0-1.2 [facility] Comment on above: Performed By: #### 2 432-8 #### SERJIO LINARES ([id number]) [facility] ([facility]) [address] [place] [address] [place] [address] Calcium [Mass/Vol] 9.3 mg/dL Normal 8.6-10.3 [facility] Comment on above: Performed By: #### 2 432-8 #### SERJIO LINARES ([id number]) [facility] ([facility]) [address] [place] [address] [place] [address] Chloride [Moles/Vol] 109 mmol/L High 98-107 [facility] Comment on above: Performed By: #### 2 432-8 #### SERJIO LINARES ([id number]) [facility] ([facility]) [address] [place] [address] [place] [address] CO2 [Moles/Vol] 26 mmol/L Normal 21-32 [facility] Comment on above: Performed By: #### 2 432-8 #### SERJIO LINARES ([id number]) [facility] ([facility]) [address] [place] [address] [place] [address] Creatinine [Mass/Vol] 0.56 mg/dL Normal 0.50-1.05 [facility] Comment on above: Performed By: #### 2 432-8 #### SERJIO LINARES ([id number]) [facility] ([facility]) [address] [place] [address] [place] [address] GFR/1.73 sq M.predicted MDRD (S/P/Bld) [Vol rate/Area] mL/min/{1.73_m2} Normal >60 [facility] Comment on above: Result Comment: Calc ulations of estimated GFR are performed using the 2020 CKD-EPI Study Refit equation without the race variable for the IDMS-Traceable creatinine methods. https://jasn.asnjournals.org/content/early/ASN.28179103 88 Performed By: #### 2 4323-8 #### SERJIO LINARES ([id number]) [facility] ([facility]) [address] [place] [address] [place] 266[address] Glucose [Mass/Vol] 106 mg/dL High 74-99 [facility] Comment on above: Performed By: #### 2 4323-8 #### SERJIO LINARES ([id number]) [facility] ([facility]) [address] [place] [address] [place] [address] Potassium [Moles/Vol] 3.2 mmol/L Low 3.5-5.3 [facility] Comment on above: Performed By: #### 2 4323-8 #### SERJIO LINARES ([id number]) [facility] ([facility]) [address] [place] [address] [place] 17547 Protein [Mass/Vol] 6.9 g/dL Normal 6.4-8.2 [facility] Comment on above: Performed By: #### 2 4323-8 #### SERJIO LINARES ([id number]) [facility] ([facility]) [address] [place] [address] [place] [address] Sodium [Moles/Vol] 144 mmol/L Normal 136-145 [facility] Comment on above: Performed By: #### 2 4323-8 #### SERJIO LINARES ([id number]) [facility] ([facility]) [address] [place] [address] Urea nitrogen [Mass/Vol] 22 mg/dL Normal 6-23 [facility] Comment on above: Performed By: #### 2 4323-8 #### SERJIO LINARES ([id number]) [facility] ([facility]) [id number] [place] [address] [place] [address] Ferritinon 01-14-2025 Ferritin [Mass/Vol] 59 ng/mL Normal 8-150 [facility] Comment on above: Performed By: #### 2 276-4 #### SERJIO LINARES ([id number]) [facility] ([facility]) [address] [place] [address] Iron and Iron binding capaci ty panelon 01-14-2025 Iron [Mass/Vol] 59 ug/dL Normal 35-150 [facility] Comment on above: Performed By: #### 5 0190-8 #### SERJIO LINARES ([id number]) [facility] ([facility]) [address] [place] [address] Iron binding capacity [Mass/Vol] 337 ug/dL Normal 240-445 [facility] Comment on above: Performed By: #### 5 0190-8 #### SERJIO LINARES ([id number]) [facility] ([facility]) [address] [place] [address] Iron binding capacity.unsaturate d [Mass/Vol] 278 ug/dL Normal 110-370 [facility] Comment on above: Performed By: #### 5 0190-8 #### SERJIO LINARES ([id number]) [facility] [place] [facility] [place] [address] [place] [address] Iron saturation [Mass fraction] 18 % Low 25-45 [facility] Comment on above: Performed By: #### 5 0190-8 #### SERJIO LINARES ([id number]) [facility] ([facility] [place] [facility] [place] [address] [place] [address] DBT Breast - right screening on 12-24-2024 [facility] [address] [place] [address] Mammography Report Signed Patient: BRIGITTE HIGH MR#: [id number] : 1950 Acct:[id number] Age/Sex: 74 / F ADM Date: 12/24/24 Loc: MAMMO Attending Dr: Danielito Morales D.O. Ordering Physician: Danielito Morales D.O. Results: Date of Service: 12/24/24 Follow Up: Procedure(s): MM tomosynthesis screening RT Accession Number(s): [id number] cc: KRISTYN DOUGHERTY ; Danielito Morales D.O. Patient Name: BRIGITTE HIGH MR#: [id number] : 1950 Exam Date: 12/24/2024 Ordering Doctor: DR DANIELITO MORALES . RADIOLOGY REPORT PROCEDURE: MM TOMOSYNTHESIS [...] colon cancer at age 53. LOCATION: [facility] BREAST COMPOSITION: The breasts are heterogeneously [...] Suarez M.D. Signed By: 12/24/24 1009 DD/ 08 TD/TT: Events Director: [facility] Radiology, Radiologrebecca brennan MD - 12/24/2024 [place] [address] Mammography Report Signed Patient: BRIGITTE HIGH MR#: [id number] : 1950 Acct:[id number] Age/Sex: 74 / F ADM Date: 12/24/24 Loc: MAMMO Attending Dr: Danielito Morales D.O. Ordering Physician: Danielito Morales D.O. Results: Date of Service: 12/24/24 Follow Up: Procedure(s): MM tomosynthesis screening RT Accession Number(s): [id number] cc: KRISTYN DOUGHERTY ; Danielito Morales D.O. Patient Name: BRIGITTE HIGH MR#: [id number] : 1950 Exam Date: 12/24/2024 Ordering Doctor: DR DANIELITO MORALES . RADIOLOGY REPORT PROCEDURE: MM TOMOSYNTHESIS [...] colon cancer at age 53. LOCATION: [facility] BREAST COMPOSITION: The breasts are heterogeneously [...] Suarez M.D. Signed By: 12/24/24 1009 DD/ 08 TD/TT: Events Director: [facility] Radiology Study observation (narrative) [facility] DBT Breast - right screening Ordered By: Radiologist Radiology on 12-24-2024 [facility] Work Phone: Ambulatory Visit Summaryon 0 10-18-2024 Ambulatory Visit [...] Star RECINOS MD Where: [facility] [address] [place] [address]- You Need to Schedule the Following Appointments Follow Up with Star RECINOS MD, URL When: Where: [facility] [address], [place] [phone] Medications What How Much When Instructions Unchanged [...] including vitamins, herbs, eye drops, creams, and laaf-mcy-ubztnxx medicines. ??? Any problems you or family [...] Taking medic (more content not included)... Normal [facility] Urology Office/Clinic Noteon 10-18-2024 Urology Office/Clinic [...] without stromal invasion. Second opinion path from [facility] did not have any discrepancy between [...] Villavicencio, URL [facility] [address] [place] [address]- [phone] Additional Instructions: 6 mos cysto Patient Education Cystoscopy I, Pari Anton, personally scribed for Dr. Recinos on 10/18/2024 09:07:03. . Documentation recorded by the scribe, Pari [...] tablet, extended r (more content not included)... [facility] Comment on above: Result Comment: Elec tronically Signed By: Star RECINOS MD\.br\Date and Time Signed: 10/18/24 09:11 EDT\.br\Electronically Co-Signed By: Pari Anton\.br\Date and Time Co-Signed: 10/18/24 09:07 EDT Reminderson 09-09-2024 Reminders Reminders From: Daniella Green To: EU - Recalls Jorje; Sent: 05/20/2024 16:30:34 EDT Show up: 08/28/2024 16:30:00 EST Subject: cysto, 6 mo Due Date/Time: 09/20/2024 16:30:00 EST Reminder/Recall Patient needs sched for 6 month cysto in October 2024, pt prefers [facility] l/m on cell .LG l/m on cell .LG Patient called back, sched for 11/15/24 at [facility].LG Normal [facility] Plastic Surgery Visit Report on 06-02-2024 Plastic Surgery Visit Report [facility] Plastic Reconstructive Surgery [address], [address] [place] [address] OFFICE VISIT Date of Service: 06/02/24 MR#: [id number] Acct: [id number] Name: BRIGITTE HIGH Rep #: [id number] : 1950 Provider: Dr. Jadyn mccall MD Age/Sex: 73/F Location: [facility] Status: Signed Intake Vital Signs 04/21/24 11:00 [...] PO Q6H PRN pain 01/20/24 06/02/24 History lgwvlagjjspq-Nh-zqhn-mine rals 1 tab PO DAILY 01/20/24 06/02/24 History vitamin C 45 mg-zinc citrate 3.75 1 tab PO DAILY 01/20/24 06/02/24 History mg-elderberry 50 mg chewable tablet (Elderberry TapToLearn) calcium 600 mg (as 1 tab PO [...] of reduction surgery of right breast Z98.890 [facility] Medical History Wears hearing aid Wears dentures [...] Cosigner Signature: Date (if applicable) CC: Normal [facility] Plastic Surgery Visit Report on 05-05-2024 Plastic Surgery Visit Report [facility] Plastic Reconstructive Surgery [address], [address] [place] [address] OFFICE VISIT Date of Service: 05/05/24 MR#: [id number] Acct: [id number] Name: BRIGITTE HIGH Rep #: [id number] : 1950 Provider: Dr. Jadyn mccall MD Age/Sex: 73/F Location: [facility] Status: Signed Intake Vital Signs 04/21/24 11:00 [...] PO Q6H PRN pain 01/20/24 04/21/24 History psubpslgbtsd-Xq-ankq-mine rals 1 tab PO DAILY 01/20/24 05/05/24 History vitamin C 45 mg-zinc citrate 3.75 1 tab PO DAILY 01/20/24 05/05/24 History mg-elderberry 50 mg chewable tablet ([employer]) calcium 600 mg (as 1 tab PO [...] healing T14.8XXD Status post breast reconstruction Z98.890 [facility] Medical History Wears hearing aid Wears dentures [...] month 05/05/24 1535 Date Jadyn Chavez MD [facility] Division[facility] Signature: Date (if applicable) CC: Normal [facility] Plastic Surgery Visit Report on 04-21-2024 Plastic Surgery Visit Report [facility]constructive Surgery [address] [place] [address] OFFICE VISIT Date of Service: 04/21/24 MR#: [id number] Acct: [id number] Name: BRIGITTE HIGH Rep #: [id number] : 1950 Provider: Dr. Jadyn mccall MD Age/Sex: 73/F Location: [facility] Status: Signed Intake Vital Signs 03/31/24 10:14 [...] PO Q6H PRN pain 01/20/24 04/21/24 History vcwinyeopdam-Dj-hohr-mine rals 1 tab PO DAILY 01/20/24 04/21/24 History vitamin C 45 mg-zinc citrate 3.75 1 tab PO DAILY 01/20/24 04/21/24 History mg-elderberry 50 mg chewable tablet ([employer]) calcium carbonate 600 mg-vitamin 1 tab PO [...] healing T14.8XXD Status post breast reconstruction Z98.890 [facility] Medical History Wears hearing aid Wears dentures [...] Additional Comments: Follow-up in 2 weeks 04/21/24 5188 Date Jadyn Chavez MD Cosigner Signature: Date (if applicable) CC: Normal [facility] Plastic Surgery Visit Report on 03-31-2024 Plastic Surgery Visit Report [facility] Plastic Reconstructive Surgery [address], [address] [place], [place] [address] OFFICE VISIT Date of Service: 03/31/24 MR#: [id number] Acct: [id number] Name: BRIGITTE HIGH Rep #: [id number] : 1950 Provider: Dr. Jadyn mccall MD Age/Sex: 73/F Location: [facility] Status: Signed Intake Vital Signs 03/17/24 [...] PO Q6H PRN pain 01/20/24 03/31/24 History lvuergnxkbcl-Mk-mcvz-mine rals 1 tab PO DAILY 01/20/24 03/31/24 History vitamin C 45 mg-zinc citrate 3.75 1 tab PO DAILY 01/20/24 03/31/24 History mg-elderberry 50 mg chewable tablet ([employer]) calcium carbonate 600 mg-vitamin 1 tab PO [...] of reduction surgery of right breast Z98.890 [facility] Medical History Wears hearing aid Wears dentures [...] Cosigner Signature: Date (if applicable) CC: Normal [facility] Plastic Surgery Visit Report on 03-17-2024 Plastic Surgery Visit Report [facility] Plastic Reconstructive Surgery [address], [address] [place] [address] OFFICE VISIT Date of Service: 03/17/24 MR#: [id number] Acct: [id number] Name: BRIGITTE HIGH Rep #: [id number] : 1950 Provider: Dr. Jadyn mccall MD Age/Sex: 73/F Location: [facility] Status: Signed Intake Vital Signs 01/20/24 10:05 [...] PO Q6H PRN pain 01/20/24 03/17/24 History ejjyfiecsvxl-Kq-vqrp-mine rals 1 tab PO DAILY 01/20/24 03/17/24 History vitamin C 45 mg-zinc citrate 3.75 1 tab PO DAILY 01/20/24 03/17/24 History mg-elderberry 50 mg chewable tablet ([employer]) calcium carbonate 600 mg-vitamin 1 tab PO [...] Op Diagnoses Status post breast reconstruction Z98.890 [facility] Medical History Wears hearing aid Wears dentures [...] interim with any questions or problems 03/17/24 1628 Date Jadyn Chavez MD Cosigner Signature: Date (if applicable) CC: Normal [facility] Plastic Surgery Visit Report on 03-10-2024 Plastic Surgery Visit Report [facility] Plastic Reconstructive Surgery [address] [place] [address], [address] [place] [address] OFFICE VISIT Date of Service: 03/10/24 MR#: [id number] Acct: [id number] Name: BRIGITTE HIGH Rep #: [id number] : 1950 Provider: Dr. Jadyn mccall MD Age/Sex: 73/F Location: [facility] Status: Signed Intake Vital Signs 01/20/24 10:05 [...] PO Q6H PRN pain 01/20/24 03/10/24 History hkleywekoynu-Pz-wnnw-mine rals 1 tab PO DAILY 01/20/24 03/10/24 History vitamin C 45 mg-zinc citrate 3.75 1 tab PO DAILY 01/20/24 03/10/24 History mg-elderberry 50 mg chewable tablet ([employer]) calcium carbonate 600 mg-vitamin 1 tab PO [...] Global Post Op Diagnoses Breast asymmetry between capitan grande band breast and reconstructed breast N65.1 Status post left breast reconstruction Z98.890 History of reduction surgery of right breast Z98.890 [facility] Medical History Wears hearing aid Wears dentures [...] Assessment and Plan (1) Breast asymmetry between capitan grande band breast and reconstructed breast: Status: Acute (2) Status post left breast reconstruction: Status: Acute (3) History of reduction surgery of right breast: Status: Acute Plan Details Additional Comments: She is to follow-up in 1 week for recheck. She is encouraged to call in the interim with any problems. Her limitations were reviewed with her and her daughter 02/25 (more content not included)... Normal [facility] Discharge Instructionon Discharge Instruction [facility] Medical Records Department [address] [place] [address] Instructions for Home/Discharge Instructions 03/04/24 1123 MR#: [id number] Acct: [id number] Name: GIMBENCHRISTOPHERBRIGITTE Rep #: [id number] : 1950 73 From: Jadyn Chavez MD PCP: DOUG Brown Status:[facility] Discharge Instructions Dressing / Incision Additional Dressing/Incision [...] Care Provider: Kristyn Dougherty Instructions Print Language: Salvadorean Discharge Orders/Prescriptions Prescriptions: No Action ibuprofen 600 mg tablet 600 mg PO Q6H PRN (Reason: pain) ibufxagzfqmc-Yp-snuo-mine rals Tablet 1 tab PO DAILY Neuriva [...] Care 03/04/24 1124 Jadyn Chavez MD CC: TABLE MAKER-C Kristyn Dougherty Signed Normal [facility] Discharge Instruction [facility] Medical Records Department [address] [place] [address] Instructions for Home/Discharge Instructions 03/04/24 1121 MR#: [id number] Acct: [id number] Name: BRIGITTE HIGH Rep #: [id number] : 1950 73 From: Jadyn Chavez MD PCP: DOUG Brown Status:[facility] Discharge Instructions Dressing / Incision Additional Dressing/Incision [...] Care Provider: Kristyn Dougherty Instructions Print Language: Salvadorean Discharge Orders/Prescriptions Prescriptions: No Action ibuprofen 600 mg tablet 600 mg PO Q6H PRN (Reason: pain) gostihncyenr-Rx-meyw-mine rals Tablet 1 tab PO DAILY Neuriva Original 100-100 mg capsule 1 cap PO DAILY [employer] 45-3.75-50 mg tablet,chewable 1 tab [...] Care 03/04/24 1333 Jadyn Chavez MD CC: TABLE MAKER-C Kristyn Dougherty Signed [facility] MR/POSTOP.[facility] 03-04-2024 MR/POSTOP.[facility] Medical Records Department [address] [place] [address] Anesthesia Postop Eval I 03/04/24 1122 MR#: [id number] Acct: [id number] Name: BRIGITTE HIGH Rep #: [id number] : 1950 73 From: Hyun Hernandez PCP: DOUG Brown Status:REG SDC Y Race: C Location: [place] [address] Anesthesia: Postop Eval I Current Vital Signs [...] 1 completed: Yes 03/04/24 1233 Date Hyun Estradasherrell Ocasioignbo Signature: Date CC: Signed [facility] MR/HJWBPIOW4ks 03-04-2024 MR/POSTOPAN2 [facility] Medical Records Department [address] [place] [address] Anesthesia Postop Eval II 03/04/24 1146 MR#: [id number] Acct: [id number] Name: BRIGITTE HIGH Rep #: [id number] : 1950 73 From: Julito Domingo MD PCP: DOUG Brown Status:[facility] Y Race: C Location: [place] [address] Anesthesia Postop Eval I Sum Anesthesia Postop [...] 0 nausea: No Vomiting: No 03/04/24 1146 Julito Houston Signature: Date CC: Signed [facility] Operative Reporton Operative Report [facility] Medical Records Department [address] [place] [address] Operative Report 03/04/24 1124 MR#: [id number] Acct: [id number] Name: BRIGITTE HIGH Rep #: [id number] : 1950 73 From: Jadyn Chavez MD PCP: DOUG Brown Status:[facility] Location: [facility] Report of Operation Date of Procedure: 03/04/24 Pre-Operative Diagnosis: Asymmetry between the right capitan grande band breast and the left reconstructed breast; Right [...] clips. This is further reinforced with some hwmupe-jn-vdxdc Vicryl sutures. The skin edges were then [...] Documentation VTE Mechan Device Prophylaxis: SCD's 03/04/24 3943 Cosigner Signature (if applicable): CC: DOUG Dougherty; Dr. Jadyn Chavez MD Signed [facility] Surgery Specimen Level Franky 03-04-2024 Surgery Specimen Level IV Patient Age/Sex Location Account Attending Physician BRIGITTE HIGH 73/F [facility] [id number] Dr. Jadyn Chavez MD Specimen: [id number] Received: 03/04/24 Status: MEHREEN Tavarez Num: [id number] Spec Type: Lesion Subm Dr: Dr. Jadyn Chavez MD HEADER OPERATION: Right breast lift and revision left breast reconstruction PRE-OP DIAGNOSIS: Breast asymmetry between capitan grande band breast and reconstructed breast, painful periwound skin, ptosis of right breast, status post left breast reconstruction, history of breast cancer in adulthood TISSUE SUBMITTED: Right breast tissue and skin MICROSCOPIC DIAGNOSIS Right breast tissue and skin, revision left breast reconstruction: Skin with underlying tissue and scant fragments of benign breast tissue, no pathologic diagnosis. [facility] 03/05/2024 MICROSCOPIC DESCRIPTION Slides are reviewed. GROSS [...] Sections do not reveal any mass lesions. Customer Sales Consultant sections are submitted in two cassettes. [facility] 03/04/2024 TC:4 CPT:97957 Patient Age/Sex Location Account Attending Physician BRIGITTE HIGH 73/F [facility] [id number] Dr. Jadyn Chavez MD Signed (signature on file) Dr. Cy Sandhu MD 03/05/24 1101 Normal [facility] Comment on above: Performed By: #### P CARON ####[facility] [address] [place], [place], [address] Basic Metabolic Profile (BMP )on 02-18-2024 BUN/CRE 32.4 RATIO High 10-20 [facility] Comment on above: Order Comment: pre s urgery testing Performed By: #### L 300.4310, L500.2500, L300.3900, L100.0500 ####[facility] [address] [place], [address] CA,Total 9.3 mg/dL Normal 8.5-10.1 [facility] Comment on above: Order Comment: pre s urgery testing Performed By: #### L 300.4310, L500.2500, L300.3900, L100.0500 ####[facility] [address] [place], [address] Chloride [Moles/Vol] 109 mmol/L High 98-107 [facility] Comment on above: Order Comment: pre s urgery testing Performed By: #### L 300.4310, L500.2500, L300.3900, L100.0500 ####[facility] [address] [place], [address] CO2 [Moles/Vol] 23.0 mmol/L Normal 21.0-32.0 [facility] Comment on above: Order Comment: pre s urgery testing Performed By: #### L 300.4310, L500.2500, L300.3900, L100.0500 ####[facility] [address] [place], [address] Creatinine [Mass/Vol] 0.68 mg/dL Normal 0.55-1.02 [facility] Comment on above: Order Comment: pre s urgery testing Result Comment: The validity of the calculated GFR GFRAA in patients over 70 years has not been determined. Clinical correlation is essential. Performed By: #### L 300.4310, L500.2500, L300.3900, L100.0500 ####[facility] [address] [place], [address] EST GFR - AA 109 mL/min Normal >60 [facility] Comment on above: Order Comment: pre s urgery testing Result Comment: Afri can Mauritian GFR Calc Performed By: #### L 300.4310, L500.2500, L300.3900, L100.0500 ####[facility] [address] [place], [address] GAP 6 Normal 5-15 [facility] Comment on above: Order Comment: pre s urgery testing Performed By: #### L 300.4310, L500.2500, L300.3900, L100.0500 ####[facility] [address] [place], [address] GFR/1.73 sq M.predicted among non-blacks MDRD (S/P/Bld) [Vol rate/Area] 90 mL/min/{1.73_m2} Normal >60 [facility] Comment on above: Order Comment: pre s urgery testing Result Comment: Non- GFR Calc Performed By: #### L 300.4310, L500.2500, L300.3900, L100.0500 ####[facility] [address] [place], [address] Glucose [Mass/Vol] 104 mg/dL Normal 74-106 [facility] Comment on above: Order Comment: pre s urgery testing Result Comment: Fast ing Glucose result from 100 to 125 mg/dL suggests IMPAIRED HOMEOSTASIS per A.D.A. criteria. Performed By: #### L 300.4310, L500.2500, L300.3900, L100.0500 ####[facility] [address] [place], [address] Potassium [Moles/Vol] 4.2 mmol/L Normal 3.5-5.1 [facility] Comment on above: Order Comment: pre s urgery testing Performed By: #### L 300.4310, L500.2500, L300.3900, L100.0500 ####[facility] [address] [place], [address] Sodium [Moles/Vol] 138 mmol/L Normal 136-145 [facility] Comment on above: Order Comment: pre s urgery testing Performed By: #### L 300.4310, L500.2500, L300.3900, L100.0500 ####[facility] [address] [place], [address] Urea nitrogen [Mass/Vol] 22 mg/dL High 7-18 [facility] Comment on above: Order Comment: pre s urgery testing Performed By: #### L 300.4310, L500.2500, L300.3900, L100.0500 ####[facility] [address] [place], [address] CBC-Complete Blood Cnt No Di ffon 02-18-2024 Erythrocyte distribution width (RBC) [Ratio] 13.8 % Normal 11.6-14.6 [facility] Comment on above: Order Comment: Commcarmen nts: pre surgery testing Performed By: #### L 300.4310, L500.2500, L300.3900, L100.0500 ####[facility] [address] [place], [address] Hematocrit (Bld) [Volume fraction] 41.3 % Normal 37-47 [facility] Comment on above: Order Comment: Commcarmen nts: pre surgery testing Performed By: #### L 300.4310, L500.2500, L300.3900, L100.0500 ####[facility] [address] [place], [address] Hemoglobin (Bld) [Mass/Vol] 13.4 g/dL Normal 12.0-15.0 [facility] Comment on above: Order Comment: Ester nts: pre surgery testing Performed By: #### L 300.4310, L500.2500, L300.3900, L100.0500 ####[facility] [address] [place], [address] MCH (RBC) [Entitic mass] 30.4 pg Normal 27.0-32.0 [facility] Comment on above: Order Comment: Commcarmen nts: pre surgery testing Performed By: #### L 300.4310, L500.2500, L300.3900, L100.0500 ####[facility] [address] [place], [address] MCHC (RBC) [Mass/Vol] 32.4 g/dL Normal 32-36 [facility] Comment on above: Order Comment: Ester nts: pre surgery testing Performed By: #### L 300.4310, L500.2500, L300.3900, L100.0500 ####[facility] [address] [place], [address] MCV (RBC) [Entitic vol] 93.7 fL Normal 81-99 [facility] Comment on above: Order Comment: Ester nts: pre surgery testing Performed By: #### L 300.4310, L500.2500, L300.3900, L100.0500 ####[facility] [address] [place], [address] Platelet mean volume (Bld) [Entitic vol] 9.4 fL Normal 6.2-12.0 [facility] Comment on above: Order Comment: Ester nts: pre surgery testing Performed By: #### L 300.4310, L500.2500, L300.3900, L100.0500 ####[facility] [address] [place], [address] Platelets (Bld) [#/Vol] 268 10*3/uL Normal 150-450 [facility] Comment on above: Order Comment: Ester nts: pre surgery testing Performed By: #### L 300.4310, L500.2500, L300.3900, L100.0500 ####[facility] [address] [place], [address] RBC (Bld) [#/Vol] 4.41 10*6/uL Normal 4.2-5.4 [facility] Comment on above: Order Comment: Comme nts: pre surgery testing Performed By: #### L 300.4310, L500.2500, L300.3900, L100.0500 ####[facility] [address] [place], [address] RDW SD 47.8 fl High 35.1-43.9 [facility] Comment on above: Order Comment: Comme nts: pre surgery testing Performed By: #### L 300.4310, L500.2500, L300.3900, L100.0500 ####[facility] [address] [place], [address] WBC (Bld) [#/Vol] 6.6 10*3/uL Normal 4.4-11.0 [facility] Comment on above: Order Comment: Comme nts: pre surgery testing Performed By: #### L 300.4310, L500.2500, L300.3900, L100.0500 ####[facility] [address] [place], [address] Partial Thromboplast Timeon 02-18-2024 aPTT Coag (Bld) [Time] 27.0 s Normal 24.1-36.2 [facility] Comment on above: Order Comment: Comme nts: pre surgery testing Performed By: #### L 300.4310, L500.2500, L300.3900, L100.0500 ####[facility] [address] [place], [address] Plastic Surgery Visit Report on 02-18-2024 Plastic Surgery Visit Report [facility] Plastic Reconstructive Surgery [address] [place] [address] OFFICE VISIT Date of Service: 02/18/24 MR#: [id number] Acct: [id number] Name: BRIGITTE HIGH Rep #: [id number] : 1950 Provider: Dr. Jadyn mccall MD Age/Sex: 73/F Location: [facility] Status: Signed Intake Vital Signs 01/20/24 [...] mg PO Q6H PRN 01/20/24 02/18/24 History cjrdtjsbzjab-Cq-eswe-mine rals tab PO 01/20/24 02/18/24 History vitamin C 45 mg-zinc citrate 3.75 tab PO 01/20/24 02/18/24 History mg-elderberry 50 mg chewable tablet (Elderberry [employer]) coffee extract 100 mg-phosphatidyl cap PO 02/04/24 02/18/24 History serine 100 mg capsule (Neuriva Original) qeudvfxshu-IZ-seaollwmlsh en 6.25 ml PO 02/04/24 02/18/24 History [...] pre op #2, has a few questions [facility] (Updated 01/20/24 @ 10:37 [...] the appointmen (more content not included)... Normal [facility] Prothrombin Time w/INRon INR Coag (PPP) [Relative time] 1.1 {INR} Normal [facility] Comment on above: Order Comment: Ester nts: pre surgery testing Performed By: #### L 300.4310, L500.2500, L300.3900, L100.0500 ####[facility] [address] [place], [place], [address] PT Coag (PPP) [Time] 13.8 s Normal 11.7-14.9 [facility] Comment on above: Order Comment: Ester nts: pre surgery testing Performed By: #### L 300.4310, L500.2500, L300.3900, L100.0500 ####[facility] [address] [address] [place], [place], [address] Plastic Surgery Visit Report on 02-04-2024 Plastic Surgery Visit Report [facility] Plastic Reconstructive Surgery [address], [address] [place], [place] [address] OFFICE VISIT Date of Service: 02/04/24 MR#: [id number] Acct: [id number] Name: BRIGITTE HIGH Rep #: [id number] : 1950 Provider: Dr. Jadyn mccall MD Age/Sex: 73/F Location: [facility] Status: Signed Intake Vital Signs 01/20/24 [...] mg PO Q6H PRN 01/20/24 02/04/24 History qkvdwwywbdxa-Df-xhrf-mine rals tab PO 01/20/24 02/04/24 History vitamin C 45 mg-zinc citrate 3.75 tab PO 01/20/24 02/04/24 History mg-elderberry 50 mg chewable tablet ([employer]) coffee extract 100 mg-phosphatidyl cap PO 02/04/24 02/04/24 History serine 100 mg capsule (Neuriva Original) puaucxypco-YA-hkssunouccl en 6.25 ml PO 02/04/24 02/04/24 History [...] Painful periwound skin R23.8 Breast asymmetry between capitan grande band breast and reconstructed breast N65.1 Ptosis of right breast N64.81 Status post left br (more content not included)... Normal [facility] Plastic Surgery Visit Report on 01-20-2024 Plastic Surgery Visit Report [facility] Plastic Reconstructive Surgery [address], [address] [place] [address] OFFICE VISIT Date of Service: 01/20/24 MR#: [id number] Acct: [id number] Name: BRIGITTE HIGH Rep #: [id number] : 1950 Provider: Dr. Jadyn mccall MD Age/Sex: 73/F Location: [facility] Status: Signed Intake Vital Signs 01/20/24 10:05 [...] mg PO Q6H PRN 01/20/24 01/20/24 History yluwqdbpzhla-Fg-kdff-mine rals tab PO 01/20/24 01/20/24 History vitamin C 45 mg-zinc citrate 3.75 tab PO 01/20/24 01/20/24 History mg-elderberry 50 mg chewable tablet (Elderberry [employer]To[employer]) Have you fallen in the past year?: [...] mastectomy. She had her initial surgery at [facility] and the second surgery at [facility]. She has a history of nicotine use [...] has ptos (more content not included)... Normal [facility] C Urineon 11-06-2023 Bacteria identified Cx [...] Locations R1: This test was performed at: [facility], [address] [place] [address], [phone] , , [facility] Comment on above: Performed By: #### 2 [id number] #### [facility] [address] [place] [address] SURGICAL PATHOLOGY REFERENCE LAB CONSULTon 10-08-2023 CASE REPORT Normal [facility] Comment on above: Order Comment: Speci lawrence Type: FORMALIN-FIXED PARAFFIN-EMBEDDED TISSUE SPECIMEN Ordering Facility: [facility] Address: [address] [place] [phone] Result Comment: Surg [facility] Pathology Report Case: [id number] Authorizing Provider: Star Recinos MD Collected: 10/08/2023 07:46 PM Ordering Location: [facility] Received: 10/08/2023 07:45 PM [facility] Pathologist: Hema Ho MD Specimen: SLIDE(S), 4 SLIDES ([id number]) Performed By: #### L [id number] #### [facility] CLIA [id number] [address] [place] [address] [place] [address] [place] CLINICAL HISTORY CONSULT REQUESTED Normal C [facility] Comment on above: Order Comment: Speci men Type: FORMALIN-FIXED PARAFFIN-EMBEDDED TISSUE SPECIMEN Ordering Facility: [facility] Address: [address] [place], [place] [phone] Performed By: #### L [id number] #### [facility] CLIA [id number] [address] [place] [address] DIAGNOSIS COMMENT Normal [facility] Comment on above: Order Comment: Speci men Type: FORMALIN-FIXED PARAFFIN-EMBEDDED TISSUE SPECIMEN Ordering Facility: [facility] Address: [address] [place] [phone] Result Comment: No i nvasive component is found in the sample examined. P16 immunostain performed at the referring institution is diffusely/strongly positive. Further, high-risk HPV CISH performed at the [facility] is positive. Laboratory Developed Test (LDT) Disclaimer: Performance characteristics of immunohistochemical, immunofluorescent and chromogenic in-situ hybridization tests have been determined by the performing laboratory within [facility]???s [facility] Pathology and Laboratory Medicine [place] ([facility], [facility], [facility], [facility], [facility], [facility], or [facility]) in a manner consistent with CLIA requirements. One or more of these tests have not been cleared or approved by the FDA. [facility] is regulated under CLIA as qualified to perform high-complexity testing. These tests are used for clinical purposes. They should not be regarded as investigational or for research. Positive and negative controls stain appropriately. Performed By: #### L [id number] #### [facility] CLIA [id number] [address] [place] [address] FINAL DIAGNOSIS Normal [facility] Comment on above: Order Comment: Speci men Type: FORMALIN-FIXED PARAFFIN-EMBEDDED TISSUE SPECIMEN Ordering Facility: [facility] Address: [address] [place] [phone] Result Comment: A. U rethral mass, excision: ([id number], 09/25/2023) - High-grade squamous intraepithelial lesion (see comment). Performed By: #### L [id number] #### [facility] CLIA [id number] [address] [place] [address] [place] FINAL PERFORMING LAB Normal [facility] Comment on above: Order Comment: Speci men Type: FORMALIN-FIXED PARAFFIN-EMBEDDED TISSUE SPECIMEN Ordering Facility: [facility] Address: [address] [place] [phone] Result Comment: Diag nostic interpretation performed at [facility], [address] [place] [address] CLIA# [id number] Wood Planer: Eleazar Sutherland M.D. Performed By: #### L [id number] #### [facility] CLIA [id number] [address] [place] [address] [place] Fabian 09-25-2023 L Specimen: [id number] Received: 09/26/23 Status: SOUT Req Num: [id number] Spec Type: Surgical Subm Dr: Star Recinos MD Tissues: A Urethra Biopsy (URETHRAL MASS) Procedures: HE/2, Gross/Micro L4, Ki-67, CINtec p16, IHC First AB Age/ Patient Sex Location Account Attending Physician Brigitte High 72/F LABELL [id number] Star Recinos MD SPEC NUM: [id number] RECD: 09/26/23 STATUS: MEHREEN TAVAREZ NUM: [id number] CRESCENCIO: 09/25/23- SUBM DR: Star Recinos MD ENTERED: 09/26/23-[address] [facility] [address]: SPEC TYPE: Surgical DEPT: HONG GARCIA ORDERED: HE/2, Gross/Micro L4, Ki-67, CINtec p16, IHC First AB ORDERED: HE/2, Gross/Micro L4, Ki-67, CINtec p16, IHC First AB, IMMUNOHISTOCHEM Supplemental Report Addendum 2 Entered: 10/20/23-2177 Supplemental for findings of consultation report from [facility]: -No discrepancy between the diagnosis of the original report and the findings of consultation report from [facility] -Please also see the first supplemental report issued below Addendum Signed (signature on file) Chin-Freddy Horvath MD 10/20/23 1133 Addendum 1 Entered: 10/16/23-1436 Urethral mass, excision: ? High-grade squamous intraepithelial lesion. ? Comment: This specimen was reviewed by Dr. Hema Ho at the [facility], who rendered the diagnosis above. She noted that no invasive carcinoma is present in the sample examined. P16 immunostain performed at the referring institution is diffusely/strongly positive. Further, high-risk HPV CISH performed at the [facility] is positive. Specimen: [id number] Received: 09/26/23-1328 Status: MEHREEN Maude Num: [id number] Spec Type: Surgical Subm Dr: Star Recinos MD Tissues: A Urethra Biopsy (URETHRAL MASS) Procedures: HE/2, Gross/Micro L4, Ki-67, CINtec p16, IHC First AB Patient: Brigitte High [id number] (Continued) Specimen: [id number] Received: 09/26/23 (Continued) Supplemental Report (Continued) Signed (signature on file) Rocío Horvath MD 09/29/23 1838 Specimen: [id number] Received: 09/26/23 Status: MEHREEN Tavarez Num: [id number] Spec Type: Surgical Subm Dr: Star Recinos MD Tissues: A Urethra Biopsy (URETHRAL MASS) Procedures: HE/2, Gross/Micro L4, Ki-67, CINtec p16, IHC First AB Patient: Brigitte High [id number] (Continued) Specimen: [id number] Received: 09/26/23-1329 (Continued) Supplemental Report (Continued) Addendum [...] in one cassette labeled A1. CPT Codes 66399 47439, 05767 Specimen: [id number] Received: 09/26/23 Status: MEHREEN Tavarez Num: [id number] Spec Type: Surgical Subm Dr: Star Recinos MD Tissues: A Urethra Biopsy (URETHRAL MASS) Procedures: HE/2, Gross/Micro L4, Ki-67, CINtec p16, IHC First AB Patient: Brigitte High [id number] (Continued) Signed (signature on file)___ (more content not included)... [facility] CNPNon 04-02-2023 CNPN Telephone (PLASAV) ----- BRIGITTE HIGH ([id number]) 1950 F Date Time Provider Department 04/02/23 [...] Encounter Status:Closed by KYRA PAGE on 04/02/23 [facility] CNOVon 03-28-2023 CNOV Office Visit (PLASAM ) ----- BRIGITTE HIGH ([id number]) 1950 F Date Time Provider Department 03/28/23 [...] Status:Closed by Lawrence MEDINA on 03/28/23 Normal [facility] MRI BREAST WO IVCON BILon MRI BREAST WO IVCON CHRIS * * *Final Report* * * DATE OF EXAM: Mar 25 2023 2:01PM [facility] 0699 - MRI BREAST WO IVCON CHRIS / PROCEDURE REASON: History of breast cancer * * * * Physician Interpretation * * * * #[id number] - MRI BREAST WO IVCON CHRIS BREAST [...] breast cancer. Marva Bonilla M.D. tr/renato:03/26/2023 11:11:18 Operations Administrative Assistant(s): RT Jennifer(Saud), [facility] MRI BI-RADS: n/a Multiple national specialty organizations have released breast cancer screening guidelines for women at average risk for developing breast cancer - guidelines that are based on both evidence and opinion, yet differ on when to start and how often to screen for breast cancer. With representation from Breast Imaging, Internal Medicine, Women's Health, Family Medicine, and Medical/Surgical Oncology, the [facility] has carefully reviewed the data and reached [...] their providers when to stop screening mammograms. Events Director: Renaot Transcribe Date/Time: Mar 25 2023 1:29P Dictated by : MARVA BONILLA MD This examination was interpreted and the report reviewed and electronically signed by: MARVA BONILLA MD on Mar 26 2023 11:11AM EST [id number] Normal [facility] Established Visit (Orthopaed ic Surgery)on 02-11-2023 Established Visit (Orthopaedic Surgery) Diagnoses/Problems Assessed Patella fracture (822.0) (S82.009A) Orders Patella fracture Xray Knee 3 View; Status:Resulted - Preliminary,Retrospective Authorization; Done: [id number] 10:14AM Laterality : Left Radiologist to Determine [...] INDICATION: . S82.009A: Patella fracture. ACCESSION NUMBER(S): [id number] ORDERING CLINICIAN: SANDRA TAYLOR FINDINGS: Left knee films show transverse patellar fracture to stable in satisfactory position. There is filling in at the fracture site. There is moderate degenerative change seen in the medial and lateral compartments of the knee. There is also moderate degenerative change seen in the patellofemoral joint Electronically signed by: SANDRA TAYLOR MD Normal [facility] Radiologyon 02-11-2023 XR Knee 3 Views Normal [facility] Work Phone: Clinic Note - Heme Onc Sched ulingon 01-20-2023 Clinic Note - Heme Onc Scheduling Retrieve Patient Instructions: Patient Instructions: Patient Instructions: RetrievePatient Instructions Instructions Printed Schedule End of Visit Documentation: Clinic Location/Phone Number: Clinic Location/Phone Number: [place] [phone] End Of Visit MU Report Item: Visit Summary given or mailed to patientyes Mailed Appointments Electronic Signatures: Fatimah Melendez (Rev Cycl Spec) (Signed 20-Jan-2023 09:06) Authored: Retrieve Patient Instructions, End of Visit Documentation Last Updated: 20-Jan-2023 09:06 by Fatimah Melendez (Rev Cycl Spec) Normal [facility] CA27.29on 01-18-2023 CA27.29 53.0 U/mL High 0.0 - 38.6 [facility] Comment on above: Result Comment: CA 2 [...] decisions. Performed By: #### C [id number] #### [facility] [address] [place] [address] CA27.29 (CA15-3)on 3 Cancer Ag 27-29 Qn 53.0 [arb'U]/mL above high threshold 0.0 - 38.6 [facility] Work Phone: Comment on above: CA 27.29 [...] Patient is a transfer her care from [facility]. Dr. Jing Campbell is her PCP. The patient is transferring her medical oncology care here, after having been cared for by Dr. Aleyda Richardson. Her Juan Sheffield was a patient of our practice and in early 2018. Last reported mammogram 06/05/2016 done in [place]. She has history of left sided breast [...] margin, lymphovascular invasion not definite; ER neg, MA neg, FYW6uzi neg. The patient does not recall what [...] and chest xray to be done at [facility] this upcoming Friday. She also [...] now due to intolerable waits at the [place] office. 12/27/2019: Here for annual visit in the setting of history of breast cancer. Her most recent mammogram done on December 30 2018 and that was negative. 12/26/2020 here for interval followup; looking forward to going back to [place] in near future 01/18/2022 here for interval followup; has no complaints 01/17/2023 here for interval followup; now living in [facility] PAST MEDICAL HISTORY: History of sleep [...] Eyes, Itching, (more content not included)... Normal [facility] Clinic Note - Intakeon 01-17 Clinic [...] Clinician Awareno Electronic Signatures: Iona Ríos (DAMION BRASWELL) (Signed 17-Jan-2023 13:29) Authored: Patient Visit Information, Vital Signs, Allergies, Outpatient Medication Profile, Notification, Travel History, Falls Last Updated: 17-Jan-2023 13:29 by Iona Ríos (DAMION BRASWELL) Normal [facility] BILATERAL KNEE 1 OR 2 VIEWSo n 01-07-2023 BILATERAL KNEE 1 OR 2 VIEWS Patient Name: BRIGITTE HIGH STUDY: BILATERAL KNEE; 1 OR 2 VIEWS; Left; 01/07/2023 9:57 am INDICATION: FX S82.009A: Patella fracture. ACCESSION NUMBER(S): [id number] ORDERING CLINICIAN: SANDRA TAYLOR FINDINGS: Bilateral knee films show on the right no fracture, dislocation or destructive lesion. There is mild to moderate degenerative change seen. The left knee patellar fracture is in stable position. It is nondisplaced. There is some filling in at the fracture site. Electronically signed by: SANDRA TAYLOR MD [facility] Established Visit (Orthopaed ic Surgery)on [...] 2015 History of Hysterectomy total 1980 - due AUB and enloarged ovarian cyst History o (more content not included)... Normal [facility] Established Visit (Orthopaed ic Surgery)on 12-10-2022 Established Visit (Orthopaedic Surgery) Diagnoses/Problems Assessed Other closed fracture of patella, unspecified laterality, initial encounter (822.0) (S82.099A) Chief Complaint Left knee pain Patient to bring xray disc History of Present Illness History of Present Illness This is a 72-year-old female here for. She was in [place] when she fell and landed on both knees. She has swelling and pain initially. Her pain did improve some. She never sought medical attention. She had knee pain. She had persistent pain and went to a hospital back in [place] and had x-rays. She is here for [...] 2015 History of Hysterectomy total 1980 - due [...] LUPIS OZUNA Date: 2022-10-18 14:45 Normal [facility] INSULINon 08-19-2022 Insulin 4.6 uIU/mL Normal 2.6-24.9 [facility] Comment on above: Performed By: #### I NSULIN #### [facility] [address] [place] [address] Dr. Destini Horvath XR RIBS LT PA [...] ILDEFONSO HO Date: 2022-08-19 06:59 Normal [facility] CBC AUTO DIFFon 08-17-2022 BASO # 0.1 103/ul Normal 0.0-0.1 [facility] Comment on above: Performed By: #### C BC #### [facility] [address] [place] [address] Dr. Destini Horvath Basophils/100 WBC (Bld) 1.1 % Normal 0.2-2.0 [facility] Comment on above: Performed By: #### C BC #### [facility] [address] [place] [address] Dr. Destini Horvath EO # 0.2 103/ul Normal 0.0-0.7 [facility] Comment on above: Performed By: #### C BC #### [facility] [address] [place] [address] Dr. Destini Horvath Eosinophils/100 WBC (Bld) 2.9 % Normal 0.9-7.0 [facility] Comment on above: Performed By: #### C BC #### [facility] [address] [place] [address] Dr. Destini Horvath Erythrocyte distribution width (RBC) [Ratio] 13.4 % Normal 11.0-15.0 [facility] Comment on above: Performed By: #### C BC #### [facility] [address] [place] [address] Dr. Destini Horvath Hematocrit (Bld) [Volume fraction] 35.2 % Critically low 36.0-48.0 [facility] Comment on above: Performed By: #### C BC #### [facility] [address] [place] [address] Dr. Destini Horvath Hemoglobin (Bld) [Mass/Vol] 12.4 g/dL Normal 12.0-16.0 [facility] Comment on above: Performed By: #### C BC #### [facility] [address] [place] [address] Dr. Destini Horvath IG # 0.01 10e3/ul Normal 0.00-0.03 [facility] Comment on above: Performed By: #### C BC #### [facility] [address] [place] [address] Dr. Destini Horvath IG % 0.2 % Normal 0.0-0.5 [facility] Comment on above: Performed By: #### C BC #### [facility] [address] [place] [address] Dr. Destini Horvath LYMPH # 2.5 103/ul Normal 1.2-3.8 [facility] Comment on above: Performed By: #### C BC #### [facility] [address] [place] [address] Dr. Destini Horvath Lymphocytes/100 WBC (Bld) 45.6 % Normal 20.5-60.0 [facility] Comment on above: Performed By: #### C BC #### [facility] [address] [place] [address] Dr. Destini Horvath MANUAL DIFF REQ NO Normal [facility] Comment on above: Performed By: #### C BC #### [facility] [address] [place] [address] Dr. Destini Horvath MCH (RBC) [Entitic mass] 30.1 pg Normal 26.7-34.0 [facility] Comment on above: Performed By: #### C BC #### [facility] [address] [place] [address] Dr. Destini Horvath MCHC (RBC) [Mass/Vol] 35.2 g/dL Normal 29.9-35.2 [facility] Comment on above: Performed By: #### C BC #### [facility] [address] [place] [address] Dr. Destini Horvath MCV (RBC) [Entitic vol] 85.4 fL Normal 81.0-99.0 [facility] Comment on above: Performed By: #### C BC #### [facility] [address] [place] [address] Dr. Destini Horvath MONO # 0.5 103/ul Normal 0.3-0.8 [facility] Comment on above: Performed By: #### C BC #### [facility] [address] [place] [address] Dr. Destini Horvath Monocytes/100 WBC (Bld) 8.3 % Normal 1.7-12.0 [facility] Comment on above: Performed By: #### C BC #### [facility] [address] [place] [address] [address] Destini Horvath NEUT # 2.3 103/ul Normal 1.4-6.5 [facility] Comment on above: Performed By: #### C BC #### [facility] [address] [place] [address] [address] Destini Horvath Neutrophils/100 WBC (Bld) 41.9 % Critically low 43.0-75.0 [facility] Comment on above: Performed By: #### C BC #### [facility] [address] [place] [address] Dr. Destini Horvath Platelet mean volume (Bld) [Entitic vol] 9.6 fL Normal 9.5-13.5 [facility] Comment on above: Performed By: #### C BC #### [facility] [address] [place] [address] Dr. Destini Horvath PLT 262 103/ul Normal 150-450 [facility] Comment on above: Performed By: #### C BC #### [facility] [address] [place] [address] Dr. Destini Horvath RBC 4.12 106/ul Critically low 4.20-5.40 [facility] Comment on above: Performed By: #### C BC #### [facility] [address] [place] [address] Dr. Destini Horvath WBC 5.6 103/ul Normal 4.0-11.0 [facility] Comment on above: Performed By: #### C BC #### [facility] [address] [place] [address] Dr. Destini Horvath FREE THYROXINE INDEX T7on FTI 2.14 Normal 1.30-4.50 [facility] Comment on above: Performed By: #### T SH, LIPID, CMP, T7 #### [facility] [address] [place] [address] Dr. Destini Horvath T3U 34.0 % Normal 30.0-39.0 [facility] Comment on above: Performed By: #### T SH, LIPID, CMP, T7 #### [facility] [address] [place] [address] [address] Destini Horvath T4 [Mass/Vol] 6.30 ug/dL Normal 4.80-13.90 [facility] Comment on above: Performed By: #### T SH, LIPID, CMP, T7 #### [facility] [address] [place] [address] [address] Destini Horvath GLYCOHEMOGLOBIN A1Con 2022 ADA RECOMMENDATION SEE BELOW Normal [facility] Comment on above: Result Comment: ADA RECOMMENDED LIMIT 4.0 - 6.0 ADA THERAPEUTIC TARGET < 7.0 ACTION SUGGESTED > 7.0 Performed By: #### U RCX #### [facility] [address] [place] [address] [address] Destini Horvath Glucose [Mass/Vol] 117 mg/dL Normal [facility] Comment on above: Performed By: #### U RCX #### [facility] [address] [place] [address] Dr. Destini Horvath HbA1c (Bld) [Mass fraction] 5.7 % Normal 4.5-6.2 [facility] Comment on above: Performed By: #### U RCX #### [facility] [address] [place] [address] [address] Destini Horvath IRONon 08-17-2022 Iron [Mass/Vol] 39.0 ug/dL Critically low 50.0-170.0 [facility] Comment on above: Performed By: #### U RCX #### [facility] [address] [place] [address] Dr. Destini Horvath LIPID PROFILEon 08-17-2022 CHOL-HDL RATIO NORM SEE BELOW Normal [facility] Comment on above: Result Comment: 3.3 - 4.4 LOW RISK 4.4 - 7.1 AVERAGE RISK 7.1 - 11.0 MODERATE RISK >11.0 HIGH RISK Performed By: #### T SH, LIPID, CMP, T7 #### [facility] [address] [place] [address] Dr. Destini Horvath Cholesterol [Mass/Vol] 191 mg/dL Normal <=200 [facility] Comment on above: Performed By: #### T SH, LIPID, CMP, T7 #### [facility] [address] [address] [address] Destini Horvath Cholesterol in HDL [Mass/Vol] 109 mg/dL Critically high 40-60 [facility] Comment on above: Performed By: #### T SH, LIPID, CMP, T7 #### [facility] [address] [address] [address] Destini Horvath Cholesterol in LDL [Mass/Vol] 69.2 mg/dL Normal [facility] Comment on above: Performed By: #### T SH, LIPID, CMP, T7 #### [facility] [address] [address] [address] Destini Horvath Cholesterol.total/C holesterol in HDL [Mass ratio] 1.8 {ratio} Normal [facility] Comment on above: Performed By: #### T SH, LIPID, CMP, T7 #### [facility] [address] [address] [address] Destini Horvath HDL NORMAL > or = 60 mg/dl - LO W CARDIOVASCULAR RISK <40 mg/dl - HIGH CARDIOVASCULAR RISK Normal [facility] Comment on above: Performed By: #### T SH, LIPID, CMP, T7 #### [facility] [address] [address] [address] Destini Horvath LDL CALC NORMAL SEE BELOW Normal [facility] Comment on above: Result Comment: <100 mg/dl OPTIMAL 100 - 129 mg/dl NEAR OR ABOVE OPTIMAL 130 - 159 mg/dl BORDERLINE HIGH 160 - 189 mg/dl HIGH >190 mg/dl VERY HIGH Performed By: #### T SH, LIPID, CMP, T7 #### [facility] [address] [address] [address] Destini Horvath Triglyceride [Mass/Vol] 64 mg/dL Normal <=150 [facility] Comment on above: Performed By: #### T SH, LIPID, CMP, T7 #### [facility] [address] [address] [address] Destini Horvath VLDL CALC 12.8 mg/dL Normal [facility] Comment on above: Performed By: #### T SH, LIPID, CMP, T7 #### [facility] [address] [place] [address] Dr. Destini Horvath PROF 14(COMP METB)on 023 Albumin [Mass/Vol] 3.6 g/dL Normal 3.4-5.0 [facility] Comment on above: Performed By: #### T SH, LIPID, CMP, T7 #### [facility] [address] [place] [address] Dr. Destini Horvath Albumin/Globulin [Mass ratio] 1.0 {ratio} Normal [facility] Comment on above: Performed By: #### T SH, LIPID, CMP, T7 #### [facility] [address] [place] [address] Dr. Destini Horvath ALP [Catalytic activity/Vol] 101 U/L Normal 46-116 [facility] Comment on above: Performed By: #### T SH, LIPID, CMP, T7 #### [facility] [address] [place] [address] Dr. Destini Horvath ALT [Catalytic activity/Vol] 27 U/L Normal 14-59 [facility] Comment on above: Performed By: #### T SH, LIPID, CMP, T7 #### [facility] [address] [place] [address] Dr. Destini Horvath Anion gap [Moles/Vol] 15.0 mmol/L Normal [facility] Comment on above: Performed By: #### T SH, LIPID, CMP, T7 #### [facility] [address] [place] [address] Dr. Destini Horvath AST [Catalytic activity/Vol] 22 U/L Normal 15-37 [facility] Comment on above: Performed By: #### T SH, LIPID, CMP, T7 #### [facility] [address] [place] [address] Dr. Destini Horvath Bilirubin [Mass/Vol] 0.3 mg/dL Normal 0.2-1.0 [facility] Comment on above: Performed By: #### T SH, LIPID, CMP, T7 #### [facility] [address] [place] [address] Dr. Destini Horvath Calcium [Mass/Vol] 9.2 mg/dL Normal 8.5-10.1 [facility] Comment on above: Performed By: #### T SH, LIPID, CMP, T7 #### [facility] [address] [address] [address] Destini Horvath Chloride [Moles/Vol] 108 mmol/L Critically high 98-107 [facility] Comment on above: Performed By: #### T SH, LIPID, CMP, T7 #### [facility] [address] [address] [address] Destini Horvath CO2 [Moles/Vol] 23.7 mmol/L Normal 21.0-32.0 [facility] Comment on above: Performed By: #### T SH, LIPID, CMP, T7 #### [facility] [address] [place] [address] Dr. Destini Horvath Creatinine [Mass/Vol] 0.59 mg/dL Normal 0.55-1.02 [facility] Comment on above: Performed By: #### T SH, LIPID, CMP, T7 #### [facility] [address] [place] [address] Dr. Destini Horvath EGFR-AF STATELESS >60 Normal >=60 [facility] Comment on above: Performed By: #### T SH, LIPID, CMP, T7 #### [facility] [address] [place] [address] Dr. Destini Horvath EGFR-NON AF STATELESS >60 Normal >=60 [facility] Comment on above: Performed By: #### T SH, LIPID, CMP, T7 #### [facility] [address] [address] [address] Destini Horvath Globulin (S) [Mass/Vol] 3.7 g/dL Normal [facility] Comment on above: Performed By: #### T SH, LIPID, CMP, T7 #### [facility] [address] [place] [address] Dr. Destini Horvath Glucose [Mass/Vol] 91 mg/dL Normal 74-106 [facility] Comment on above: Performed By: #### T SH, LIPID, CMP, T7 #### [facility] [address] [place] [address] Dr. Destini Horvath Potassium [Moles/Vol] 3.7 mmol/L Normal 3.5-5.1 [facility] Comment on above: Performed By: #### T SH, LIPID, CMP, T7 #### [facility] [address] [place] [address] Dr. Destini Horvath Protein [Mass/Vol] 7.3 g/dL Normal 6.4-8.2 [facility] Comment on above: Performed By: #### T SH, LIPID, CMP, T7 #### [facility] [address] [place] [address] Dr. Destini Horvath Sodium [Moles/Vol] 143 mmol/L Normal 136-145 [facility] Comment on above: Performed By: #### T SH, LIPID, CMP, T7 #### [facility] [address] [place] [address] Dr. Destini Horvath Urea nitrogen [Mass/Vol] 17.0 mg/dL Normal 7.0-18.0 [facility] Comment on above: Performed By: #### T SH, LIPID, CMP, T7 #### [facility] [address] [place] [address] Dr. Destini Horvath Urea nitrogen/Creatinine [Mass ratio] 28.8 mg/mg Normal [facility] Comment on above: Performed By: #### T SH, LIPID, CMP, T7 #### [facility] [address] [place] [address] Dr. Destini Horvath TSHon 08-17-2022 TSH 2.888 uIU/mL Normal 0.358-3.740 [facility] Comment on above: Performed By: #### T SH, LIPID, CMP, T7 #### [facility] [address] [place] [address] Dr. Destini oHrvath [facility]id-19 [facility]on SARS-CoV-2 (COVID-19) RNA MARY+probe Ql (Unsp spec) Not detected Normal NOT DETECTED [facility] Comment on above: Result Comment: When [...] for this test is supported by the Life Skills Coordinator Volunteer of Health and Human Service's declaration that [...] longer be used). Performed By: #### C VDTB #### [facility] [address] [place] [address] Dr. Destini Horvath INFLUENZA A AND B AGon 07-05 [facility] SEE BELOW Normal [facility] Comment on above: Result Comment: Nega tive for Flu A protein angiten. Infection due to Flu A cannot be ruled out. Flu A angiten in the sample may be below the detection limit of the test. Performed By: #### U RCX #### [facility] [address] [place] [address] Dr. Destini [facility] BEL[facility] Normal [facility] Comment on above: Result Comment: Nega tive for Flu B protein antigen. Infection due to Flu B cannot be ruled out. Flu B antigen in the sample may be below the detection limit of the test. Performed By: #### U RCX #### [facility] [address] [place] [address] Dr. Destini Horvath INFLUENZA A AG Negative Normal NEGATIVE SEE COMMENT [facility] Comment on above: Performed By: #### U RCX #### [facility] [address] [place] [address] Dr. Destini Horvath INFLUENZA B AG Negative Normal NEGATIVE SEE COMMENT [facility] Comment on above: Performed By: #### U RCX #### [facility] [address] [place] [address] Dr. Destini Horvath INTERNAL CONTROLS Within Normal Limits Normal Wi thin Normal Limits [facility] Comment on above: Performed By: #### U RCX #### [facility] [address] [place] [address] Dr. Destini Horvath CULTURE URINEon 06-30-2022 CULTURE [...] Trimethoprim/Sulfamethoxa zole <=20 S F Normal [facility] Comment on above: Performed By: #### U RCX #### [facility] [address] [place] [address] Dr. Destini Horvath UA RANDOM W/MICROSCOPICon BACTERIA LARGE Abnormal NONE SEEN [facility] Comment on above: Performed By: #### U RCX #### [facility] [address] [place] [address] Dr. Destini Horvath Bilirubin Ql (U) Negative Normal NEGATIVE [facility] Comment on above: Performed By: #### U RCX #### [facility] [address] [place] [address] Dr. Destini Horvath CAST NONE SEEN Normal NONE SEEN [facility] Comment on above: Performed By: #### U RCX #### [facility] [address] [place] [address] Dr. Destini Horvath Clarity (U) SL CLOUDY Abnormal CLEAR [facility] Comment on above: Performed By: #### U RCX #### [facility] [address] [place] [address] Dr. Destini Horvath Color (U) LT. YELLOW Normal YELLOW [facility] Comment on above: Performed By: #### U RCX #### [facility] [address] [address] [address] Destini Horvath Crystals LM Nom (Urine sed) NONE SEEN Normal NONE SEEN [facility] Comment on above: Performed By: #### U RCX #### [facility] [address] [address] [address] Destini Horvath Epithelial cells LM Ql (Urine sed) FEW Abnormal NONE SEEN /RARE [facility] Comment on above: Performed By: #### U RCX #### [facility] [address] [address] [address] Destini Horvath Glucose Ql (U) Negative Normal NEGATIVE [facility] Comment on above: Performed By: #### U RCX #### [facility] [address] [place] [address] Dr. Destini Horvath Hemoglobin Ql (U) TRACE-INTACT Abnormal NEGATIVE [facility] Comment on above: Performed By: #### U RCX #### [facility] [address] [place] [address] Dr. Destini Horvath Ketones Ql (U) Negative Normal NEGATIVE [facility] Comment on above: Performed By: #### U RCX #### [facility] [address] [place] [address] Dr. Destini Horvath LEUKOCYTES MODERATE Abnormal NEGATIVE [facility] Comment on above: Performed By: #### U RCX #### [facility] [address] [address] [address] Destini Horvath MUCOUS NONE SEEN Normal NONE SEEN [facility] Comment on above: Performed By: #### U RCX #### [facility] [address] [address] [address] Destini Horvath Nitrite Ql (U) Negative Normal NEGATIVE [facility] Comment on above: Performed By: #### U RCX #### [facility] [address] [place] [address] Dr. Destini Horvath pH (U) 5.5 [pH] Normal 5-9 [facility] Comment on above: Performed By: #### U RCX #### [facility] [address] [address] [address] Destini Horvath RBC 2-5 Abnormal 0-2 [facility] Comment on above: Performed By: #### U RCX #### [facility] [address] [address] [address] Destini Horvath SPEC GRAVITY 1.015 Normal 1.005-<=1.02 5 [facility] Comment on above: Performed By: #### U RCX #### [facility] [address] [place] [address] Dr. Destini Horvath UA PROTEIN Negative Normal NEGATIVE/ TRACE [facility] Comment on above: Performed By: #### U RCX #### [facility] [address] [place] [address] Dr. Destini Horvath Urobilinogen Qn (U) 0.2 {Abner'U}/dL Normal 0.2 - 1. 0 [facility] Comment on above: Performed By: #### U RCX #### [facility] [address] [place] [address] Dr. Destini Horvath WBC (U) [#/Vol] /uL Abnormal NONE SEEN [facility] Comment on above: Performed By: #### U RCX #### [facility] [address] [place] [address] Dr. Destini Horvath CBCon 04-29-2022 Erythrocyte distribution width (RBC) [Ratio] 14.0 % Normal 11.5 - 14.5 [facility] Comment on above: Performed By: #### C BC #### [address] [id number] Hematocrit (Bld) [Volume fraction] 41.0 % Normal 36.0 - 46.0 [facility] Comment on above: Performed By: #### C BC #### [address] [id number] Hemoglobin (Bld) [Mass/Vol] 12.9 g/dL Normal 12.0 - 16.0 [facility] Comment on above: Performed By: #### C BC #### [address] [id number] MCHC (RBC) [Mass/Vol] 31.5 g/dL Low 32.0 - 36.0 [facility] Comment on above: Performed By: #### C BC #### [address] [id number] MCV (RBC) [Entitic vol] 97 fL Normal 80 - 100 [facility] Comment on above: Performed By: #### C BC #### [address] [id number] Platelets (Bld) [#/Vol] 268 10*3/uL Normal 150 - 450 [facility] Comment on above: Performed By: #### C BC #### [address] [id number] RBC 4.24 x10E12/L Normal 4.00 - 5.20 [facility] Comment on above: Performed By: #### C BC #### [address] [id number] WBC (Bld) [#/Vol] 6.0 10*3/uL Normal 4.4 - 11.3 [facility] Comment on above: Performed By: #### C BC #### [address] [id number] COMPREHENSIVE PANELon 2021 Albumin [Mass/Vol] 4.2 g/dL Normal 3.4 - 5.0 [facility] Comment on above: Performed By: #### C MP #### [address] [id number] ALP [Catalytic activity/Vol] 71 U/L Normal 33 - 136 [facility] Comment on above: Performed By: #### C MP #### [address] [id number] ALT [Catalytic activity/Vol] 23 U/L Normal 7 - 45 [facility] Comment on above: Result Comment: Luanne ents treated with Sulfasalazine may generate falsely decreased results for ALT. Performed By: #### C MP #### [address] [id number] Anion gap [Moles/Vol] 13 mmol/L Normal 10 - 20 [facility] Comment on above: Performed By: #### C MP #### [address] [id number] AST [Catalytic activity/Vol] 24 U/L Normal 9 - 39 [facility] Comment on above: Performed By: #### C MP #### [address] [id number] Bilirubin [Mass/Vol] 0.4 mg/dL Normal 0.0 - 1.2 [facility] Comment on above: Performed By: #### C MP #### [address] [id number] Calcium [Mass/Vol] 9.4 mg/dL Normal 8.6 - 10.3 [facility] Comment on above: Performed By: #### C MP #### [address] [id number] Chloride [Moles/Vol] 106 mmol/L Normal 98 - 107 [facility] Comment on above: Performed By: #### C MP #### [address] [id number] Creatinine [Mass/Vol] 0.69 mg/dL Normal 0.50 - 1.05 [facility] Comment on above: Performed By: #### C MP #### [address] [id number] eGFR FEMALE >90 Normal >90 [facility] Comment on above: Result Comment: CALC ULATIONS OF ESTIMATED GFR ARE PERFORMED USING THE 2020 CKD-EPI STUDY REFIT EQUATION WITHOUT THE RACE VARIABLE FOR THE IDMS-TRACEABLE CREATININE METHODS. https://jasn.asnjournals.org/content/early/ASN.14092782 88 Performed By: #### C MP #### [address] [id number] Glucose [Mass/Vol] 79 mg/dL Normal 74 - 99 [facility] Comment on above: Performed By: #### C MP #### [address] [id number] HCO3 (Bld) [Moles/Vol] 25 mmol/L Normal 21 - 32 [facility] Comment on above: Performed By: #### C MP #### [address] [id number] Potassium [Moles/Vol] 4.1 mmol/L Normal 3.5 - 5.3 [facility] Comment on above: Performed By: #### C MP #### [address] [id number] Protein [Mass/Vol] 7.4 g/dL Normal 6.4 - 8.2 [facility] Comment on above: Performed By: #### C MP #### [address] [id number] Sodium [Moles/Vol] 140 mmol/L Normal 136 - 145 [facility] Comment on above: Performed By: #### C MP #### [address] [id number] Urea nitrogen [Mass/Vol] 12 mg/dL Normal 6 - 23 [facility] Comment on above: Performed By: #### C MP #### [address] [id number] LIPID PANEL (CORONARY RISK 2 )on 04-29-2022 Cholesterol [Mass/Vol] 198 mg/dL Normal 0 - 199 [facility] Comment on above: Result Comment: . [...] dosing. Performed By: #### L IPID #### [address] [id number] Cholesterol in HDL [Mass/Vol] 89.0 mg/dL Normal [facility] Comment on above: Result Comment: . AGE VERY LOW LOW NORMAL HIGH 0-19 Y < 35 < 40 40-45 ---- 20-24 Y ---- < 40 >45 ---- >24 Y ---- < 40 40-60 >60 . Performed By: #### L IPID #### [address] [id number] Cholesterol in LDL [Mass/Vol] 87 mg/dL Normal 0 - 99 [facility] Comment on above: Result Comment: . NEAR BORD AGE DESIRABLE OPTIMAL HIGH HIGH VERY HIGH 0-19 Y 0 - 109 --- 110-129 >/= 130 ---- 20-24 Y 0 - 119 --- 120-159 >/= 160 ---- >24 Y 0 - 99 100-129 130-159 160-189 >/=190 . Performed By: #### L IPID #### [address] [id number] Cholesterol in VLDL [Mass/Vol] 22 mg/dL Normal 0 - 40 [facility] Comment on above: Performed By: #### L IPID #### [address] [id number] Cholesterol.total/C holesterol in HDL [Mass ratio] 2.2 {ratio} Normal [facility] Comment on above: Result Comment: REF VALUES DESIRABLE < 3.4 HIGH RISK > 5.0 Performed By: #### L IPID #### [address] [id number] Triglyceride [Mass/Vol] 109 mg/dL Normal 0 - 149 [facility] Comment on above: Result Comment: . [...] dosing. Performed By: #### L IPID #### [address] [id number] Laboratory - Chemistry and C hemistry - challengeon 04-29-2022 Albumin BCP dye [Mass/Vol] 4.2 g/dL 3.4 - 5.0 UQ-IZWM-Fxku 0372M Work Phone: ALP [Catalytic activity/Vol] 71 U/L 33 - 136 OG-MYYC-Bumi 2530Y Work Phone: ALT With P-5'-P [Catalytic activity/Vol] 23 U/L 7 - 45 AS-LYGN-Jclh 2538P Work Phone: Comment on above: Patients treated wit h Sulfasalazine may generate falsely decreased results for ALT. Anion gap [Moles/Vol] 13 mmol/L 10 - 20 LB-JNZY-Kaff 2535G Work Phone: AST With P-5'-P [Catalytic activity/Vol] 24 U/L 9 - 39 RF-RIZB-Fcyv 2538R Work Phone: Bilirubin [Mass/Vol] 0.4 mg/dL 0.0 - 1.2 MJ-AWTT-Mawz 2535A Work Phone: Calcium [Mass/Vol] 9.4 mg/dL 8.6 - 10.3 MP-WSP C-[place] 6860V Work Phone: Chloride [Moles/Vol] 106 mmol/L 98 - 107 DX-WELR-Qxdu 2532C Work Phone: CO2 [Moles/Vol] 25 mmol/L 21 - 32 MP-WSPC-A onel Tovar Work Phone: Creatinine [Mass/Vol] 0.69 mg/dL See Below TA-THYW-Horf 2535A Work Phone: Comment on above: Reference Range: 0.5 0 - 1.05 Glucose [Mass/Vol] 79 mg/dL 74 - 99 MP-WSP C-Laila Guy Work Phone: Potassium [Moles/Vol] 4.1 mmol/L 3.5 - 5.3 EJ-CNYN-Xgoh Guy Work Phone: Protein [Mass/Vol] 7.4 g/dL 6.4 - 8.2 MP-WSP C-Lailagloria Tovar Work Phone: Sodium [Moles/Vol] 140 mmol/L 136 - 145 MP-WSP C-Laila Guy Work Phone: Urea nitrogen [Mass/Vol] 12 mg/dL 6 - 23 HU-FOSZ-Ltcb Guy Work Phone: Laboratory - Hematology and Cell countson 04-29-2022 Erythrocyte distribution width (RBC) [Ratio] 14.0 % See Below UO-DGVY-Ugsk Guy Work Phone: Comment on above: Reference Range: 11. 5 - 14.5 Hematocrit (Bld) [Volume fraction] 41.0 % See Below WE-UYKS-Zeqz Guy Work Phone: Comment on above: Reference Range: 36. 0 - 46.0 Hemoglobin (Bld) [Mass/Vol] 12.9 g/dL See Below MG-MWIQ-Gynt Guy Work Phone: Comment on above: Reference Range: 12. 0 - 16.0 MCHC (RBC) [Mass/Vol] 31.5 g/dL below low threshold See Below XL-ONFD-Zhsf 2535A Work Phone: Comment on above: Reference Range: 32. 0 - 36.0 MCV (RBC) [Entitic vol] 97 fL 80 - 100 OS-NVCF-Auay 2535A Work Phone: Platelets (Bld) [#/Vol] 268 10*3/uL 150 - 450 TF-MSRK-Nbgg 2535A Work Phone: RBC (Bld) [#/Vol] 4.24 {x10E12/L} See Below MP -WSPC-[place] 2535A Work Phone: Comment on above: Reference Range: 4.0 0 - 5.20 WBC (Bld) [#/Vol] 6.0 10*3/uL 4.4 - 11.3 MP-WSP C-[place] 2535A Work Phone: Lipid Panelon 04-29-2022 Cholesterol [Mass/Vol] 198 mg/dL 0 - 199 HR-HHVH-Dsbf 2535A Work Phone: Comment on above: . [...] guidelines reference: NCEP ATPIII Guidelines, LUDIV[place] 2001, 258:8786-97. Venipuncture immediately after or during the administration of Metamizole may lead to falsely low results. Testing should be performed immediately prior to Metamizole dosing. Cholesterol in HDL [Mass/Vol] 89.0 mg/dL CL-WPRL-Utgs 2531V Work Phone: Comment on above: . AGE VERY LOW LOW N ORMAL HIGH 0-19 Y < 35 < 40 40-45 ---- 20- 24 Y ---- < 40 >45 ---- >24 Y ---- < 40 40-60 >60. Cholesterol in LDL [Mass/Vol] 87 mg/dL 0 - 99 JZ-AZFW-Yomf 2535A Work Phone: Comment on above: . NEAR BORD AGE CHERRIE RABLE OPTIMAL HIGH HIGH VERY HIGH 0-19 Y 0 - 109 --- 110-129 >/= 130 ---- 20-24 Y 0 - 119 --- 120-159 >/= 160 ---- >24 Y 0 - 99 100-129 130-159 160-189 >/=190. Cholesterol.total/C holesterol in HDL [Mass ratio] 2.2 {ratio} [employer] 3664I Work Phone: Comment on above: REF VALUESDESIRABLE < 3.4HIGH RISK > 5.0 Triglyceride [Mass/Vol] 109 mg/dL 0 - 149 [employer] 4473V Work Phone: Comment on above: . AGE [...] Lipid Panel 22 mg/dL 0 - 40 [employer] 6602U Work Phone: Medicare Annual Wellness Vis iton [...] Touchworks No Panel Informationon 04-29 >90 >90 YL-HRKM-Nkgq 0631R Work Phone: Comment on above: CALCULATIONS OF RYAN MATED GFR ARE PERFORMED USING THE 2020 CKD-EPI STUDY REFIT EQUATION WITHOUT THE RACE VARIABLE FOR THE IDMS-TRACEABLE CREATININE METHODS.https://jasn.asnjournals.org/content/early/ASN. 1608897434 TSHon 04-29-2022 TSH Qn 1.70 m[IU]/L Normal 0.44 - 3.98 [facility] Comment on above: Result Comment: TSH testing is performed using different testing methodology at [facility] than at other [facility]. Direct result comparisons should only be made within the same method. Performed By: #### T SH2 ####[facility] [place], [place] [id number] TSH - Thyroid Stimulating Ho liliana, Serumon 04-29-2022 TSH Qn 1.70 m[IU]/L See Below QT-WLHQ-Wcaw 0314B Work Phone: Comment on above: Reference Range: 0.4 4 - 3.98 TSH testing is performed using different testing methodology at [facility] than at other [facility]. Direct result comparisons should only be made within the same method. Tobacco Screening.on Adult depression screening assessment No ZA-JDPR-Tlbu 2535A Work Phone: Fall risk assessment b) One or more falls in the last year FK-UUJO-Oooz 2532D Work Phone: Tobacco use status CPHS b) No HC-YBXV-Bqfu 2535A Work Phone: VITAMIN B12on 04-29-2022 Cobalamin (Vitamin B12) [Mass/Vol] 417 pg/mL Normal 211 - 911 [facility] Comment on above: Performed By: #### V TB12 ####[facility] [place], [place] [id number] VITAMIN D, 25-HYDROXYon VITAMIN D, 25-HYDROXY 31 ng/mL Normal [facility] Comment on above: Result Comment: . DEFICIENCY: < 20 NG/ML INSUFFICIENCY: 20-29 NG/ML SUFFICIENCY: 30-100 NG/ML THIS ASSAY ACCURATELY QUANTIFIES THE SUM OF VITAMIN D3, 25-HYDROXY AND VIT D2,25-HYDROXY. Performed By: #### V TDOH #### [facility] [address] [place], [place] [id number] Vitamin B12, Serumon 022 Cobalamin (Vitamin B12) [Mass/Vol] 417 pg/mL 211 - 911 TE-JLTZ-Xpvs 2536Q Work Phone: Vitamin D 25-Hydroxyon 04-29 25-hydroxyvitamin D3 [Mass/Vol] 31 ng/mL EN-VGLG-Prkr 4515P Work Phone: Comment on above: .DEFICIENCY: < 20 NG /MLINSUFFICIENCY: 20-29 NG/MLSUFFICIENCY: 30-100 NG/MLTHIS ASSAY ACCURATELY QUANTIFIES THE SUM OFVITAMIN D3, 25-HYDROXY AND VIT D2,25-HYDROXY. BASIC METABOLIC PANELon 03-28 Anion gap [Moles/Vol] 15 mmol/L Normal 10 - 20 [facility] Comment on above: Performed By: #### B MP #### [address] [id number] Calcium [Mass/Vol] 9.6 mg/dL Normal 8.6 - 10.3 [facility] Comment on above: Performed By: #### B MP #### [address] [id number] Chloride [Moles/Vol] 106 mmol/L Normal 98 - 107 [facility] [facility] Comment on above: Performed By: #### B MP #### [address] [id number] Creatinine [Mass/Vol] 0.80 mg/dL Normal 0.50 - 1.05 [facility] Comment on above: Performed By: #### B MP #### [address] [id number] GFR/1.73 sq M.predicted among non-blacks MDRD (S/P/Bld) [Vol rate/Area] 78 mL/min/{1.73_m2} Normal >90 [facility] Comment on above: Result Comment: CALC ULATIONS OF ESTIMATED GFR ARE PERFORMED USING THE 2020 CKD-EPI STUDY REFIT EQUATION WITHOUT THE RACE VARIABLE FOR THE IDMS-TRACEABLE CREATININE METHODS. https://jasn.asnjournals.org/content//ASN.24145696 88 Performed By: #### B MP #### [address] [id number] Glucose [Mass/Vol] 67 mg/dL Low 74 - 99 [facility] Comment on above: Performed By: #### B MP #### [address] [id number] HCO3 (Bld) [Moles/Vol] 22 mmol/L Normal 21 - 32 [facility] Comment on above: Performed By: #### B MP #### [address] [id number] Potassium [Moles/Vol] 3.6 mmol/L Normal 3.5 - 5.3 [facility] Comment on above: Performed By: #### B MP #### [address] [id number] Sodium [Moles/Vol] 139 mmol/L Normal 136 - 145 [facility] Comment on above: Performed By: #### B MP #### [address] [id number] Urea nitrogen [Mass/Vol] 17 mg/dL Normal 6 - 23 [facility] Comment on above: Performed By: #### B MP #### [address] [id number] CBCon 04-12-2022 Erythrocyte distribution width (RBC) [Ratio] 13.8 % Normal 11.5 - 14.5 [facility] Comment on above: Performed By: #### C BC #### [address] [id number] Hematocrit (Bld) [Volume fraction] 41.1 % Normal 36.0 - 46.0 [facility] Comment on above: Performed By: #### C BC #### [address] [id number] Hemoglobin (Bld) [Mass/Vol] 13.0 g/dL Normal 12.0 - 16.0 [facility] Comment on above: Performed By: #### C BC #### [address] [id number] MCHC (RBC) [Mass/Vol] 31.6 g/dL Low 32.0 - 36.0 [facility] Comment on above: Performed By: #### C BC #### [address] [id number] MCV (RBC) [Entitic vol] 97 fL Normal 80 - 100 [facility] Comment on above: Performed By: #### C BC #### [address] [id number] Platelets (Bld) [#/Vol] 287 10*3/uL Normal 150 - 450 [facility] Comment on above: Performed By: #### C BC #### [address] [id number] RBC 4.24 x10E12/L Normal 4.00 - 5.20 [facility] Comment on above: Performed By: #### C BC #### [address] [id number] WBC (Bld) [#/Vol] 5.9 10*3/uL Normal 4.4 - 11.3 [facility] Comment on above: Performed By: #### C BC #### [address] [id number] Laboratory - Chemistry and C hemistry - challengeon 04-12-2022 Anion gap [Moles/Vol] 15 mmol/L 10 - 20 ZN-TPHT-Qrzn 7464S Work Phone: Calcium [Mass/Vol] 9.6 mg/dL 8.6 - 10.3 MP-WSP C-[place] 4715H Work Phone: Chloride [Moles/Vol] 106 mmol/L 98 - 107 BI-ZUPX-Bwna 4603J Work Phone: CO2 [Moles/Vol] 22 mmol/L 21 - 32 MP-WSPC-A von 0X Work Phone: Creatinine [Mass/Vol] 0.80 mg/dL See Below FZ-IEXK-Tzwq 1100L Work Phone: Comment on above: Reference Range: 0.5 0 - 1.05 Glucose [Mass/Vol] 67 mg/dL below low threshold 74 - 99 XF-IDJL-Sxyb 2535A Work Phone: Potassium [Moles/Vol] 3.6 mmol/L 3.5 - 5.3 NE-NOYU-Csbx 2535A Work Phone: Sodium [Moles/Vol] 139 mmol/L 136 - 145 MP-WSP C-[place] Guy Work Phone: Urea nitrogen [Mass/Vol] 17 mg/dL 6 - 23 OP-OZOC-Sozf 2535A Work Phone: Laboratory - Hematology and Cell countson 04-12-2022 Erythrocyte distribution width (RBC) [Ratio] 13.8 % See Below LS-CFBC-Gsfs 2535A Work Phone: Comment on above: Reference Range: 11. 5 - 14.5 Hematocrit (Bld) [Volume fraction] 41.1 % See Below DW-TRHJ-Hvez Guy Work Phone: Comment on above: Reference Range: 36. 0 - 46.0 Hemoglobin (Bld) [Mass/Vol] 13.0 g/dL See Below HC-JHDD-Imxg 2535A Work Phone: Comment on above: Reference Range: 12. 0 - 16.0 MCHC (RBC) [Mass/Vol] 31.6 g/dL below low threshold See Below RR-KJYW-Mtbn 2535A Work Phone: Comment on above: Reference Range: 32. 0 - 36.0 MCV (RBC) [Entitic vol] 97 fL 80 - 100 PD-WNMX-Pdsx 2535A Work Phone: Platelets (Bld) [#/Vol] 287 10*3/uL 150 - 450 QZ-TSZH-Mftn 2535A Work Phone: RBC (Bld) [#/Vol] 4.24 {x10E12/L} See Below MP -WSPC-[place] 2535A Work Phone: Comment on above: Reference Range: 4.0 0 - 5.20 WBC (Bld) [#/Vol] 5.9 10*3/uL 4.4 - 11.3 MP-WSP C-Laila 0568S Work Phone: No Panel Informationon 04-12 78 {mL/min/1.73m2} >90 MP-WSP C-Laila 5381Z Work Phone: Comment on above: CALCULATIONS OF RYAN MATED GFR ARE PERFORMED USING THE 2020 CKD-EPI STUDY REFIT EQUATION WITHOUT THE RACE VARIABLE FOR THE IDMS-TRACEABLE CREATININE METHODS.https://jasn.asnjournals.org/content//ASN. 1016794453 Office Visit (Primary Care T xt/Forms)on 04-12-2022 Follow-up visit Diagnoses/Problems Assessed Encounter for immunization (V03.89) (Z23) Finger swelling (729.81) (M79.89) Orders Encounter for immunization Administered: Fluzone High-Dose Quadrivalent 0.7 ML Intramuscular Suspension Prefilled Syringe Finger swelling Start: methylPREDNISolone 4 MG Oral Tablet Therapy Pack (Medrol); USE DIRECTED Basic Metabolic Panel; Status:Complete; Done: [id number] 12:16PM Complete Blood Count; Status:Complete; Done: [id number] 12:16PM Sedimentation Rate, Erythrocyte; Status:Complete; Done: [id number] 12:16PM Uric Acid, Serum; Status:Complete; Done: 83Emn2007 12:16PM Xray Finger(s) Min 2 View; Status:Hold For - Scheduling; Requested for:[id number]; Laterality : Left Radiologist to Determine Optimal [...] DAILY. Allergies Medication Codeine Derivatives Tylenol NonMedication Pierceton mold Mold Vitals Vital Signs Recorded: 25Yjc8132 11:45AM Temperature: 98.2 F Heart Rate: 72 Respiration: 18 Systolic: 126 Diastolic: 80 Weight: 167 lb (more content not included)... Normal Touchworks SEDIMENTATION RATE, ERYTHROC YTEon 04-12-2022 SEDIMENTATION RATE, ERYTHROCYTE 9 mm/h Normal 0 - 30 [facility] Comment on above: Result Comment: Karis tatum note new reference ranges as of 12/03/2021. Ran on alternate instrument Reference Ranges: Males: 0-15 Females: 0-20 Children under 18: 0-10 Performed By: #### E SRWS #### [address] [id number] Sedimentation Rate, Erythroc yteon 04-12-2022 ESR (Bld) [Velocity] 9 mm/h 0 - 30 TH-GPFR-Adiq 4773U Work Phone: Comment on above: Please note new refe rence ranges as of 12/03/2021.Ran on alternate instrumentReference Ranges: Males: 0-15 Females: 0-20 Children under 18: 0-10 Tobacco Screening.on 022 Fall risk assessment b) One or more falls in the last year GH-OABK-Pcav 8100P Work Phone: Tobacco use status HS b) No RL-WAFR-Gufh 2535A Work Phone: URIC ACIDon 04-12-2022 Urate [Mass/Vol] 4.2 mg/dL Normal 2.3 - 6.7 [facility] [place] Comment on above: Result Comment: Rachael puncture immediately after or during the administration of Metamizole may lead to falsely low results. Testing should be performed immediately prior to Metamizole dosing. Performed By: #### U AILYN #### [address] [id number] Uric Acid, Serumon 2 Urate [Mass/Vol] 4.2 mg/dL 2.3 - 6.7 MP-WSPC- [place] 7628H Work Phone: Comment on above: Venipuncture immedia tely after or during the administration of Metamizole may lead to falsely low results. Testing should be performed immediately prior to Metamizole dosing. DIGITAL MAMM SCREENING W/ TO Taylor 11-20-2021 DIGITAL MAMM SCREENING W/ CLAUDIA Patient Name: BRIGITTE HIGH STUDY: DIGITAL MAMM SCREENING W/ CLAUDIA; 11/20/2021 12:37 pm ACCESSION NUMBER(S): [id number] ORDERING CLINICIAN: JING CAMPBELL INDICATION: Right breast [...] any future breast imaging appointments, please call [phone] ([phone]). Electronically signed by: BUCK HIGUERA MD Normal [facility] ([place], [place]) Mamm - Screening Mammogram w / Tomosynthesison 11-20-2021 MG Breast Screening Normal -[facility] Work Phone: No Panel Informationon 11-20 Please click on the link to view the study images Normal [facility] Work Phone: Normal EX-YPTT-Ktbp 5162Z Work Phone: SPINE, LUMBOSACRAL MIN 4 VIE WSon 11-20-2021 SPINE, LUMBOSACRAL MIN 4 VIEWS Patient Name: BRIGITTE HIGH STUDY: Lumbar Spine, 5 views. INDICATION: lbp M54.9: Back pain. COMPARISON: 07/15/2020. ACCESSION NUMBER(S): [id number] ORDERING CLINICIAN: JING CAMPBELL FINDINGS: Moderate levoscoliosis centered in the mid lumbar region. Grade 1 L5-S1 anterolisthesis noted. Moderate spondylosis at L2-3 with disc height loss and endplate sclerosis. Mild spondylosis at L3-4. Zemk-zh-dkblskml facet joint degenerative changes throughout the lumbar spine. No spondylolysis on the oblique views. Atherosclerosis of the abdominal aorta noted Vertebral body heights are preserved. Posterior elements are intact. IMPRESSION: 1. Moderate levoscoliosis with lumbar spine degenerative changes as described above that are most pronounced at L2-3 and L3-4. 2. Grade 1 L5-S1 anterolisthesis. Electronically signed by: POORNIMA MONTERO MD [facility] Tobacco Screening.on Last menstrual period start date hysterectomy [facility] Work Phone: Tobacco use status [facility] b) No [facility] Work Phone: CHEST 2 VIEW PA AND LATon CHEST 2 VIEW PA AND LAT Patient Name: BRIGITTE HIGH STUDY: TH CHEST 2 VIEW PA AND LAT; INDICATION: pain. Cough. History of breast cancer and history of smoking. COMPARISON: 07/27/2020 ACCESSION NUMBER(S): [id number] ORDERING CLINICIAN: JING CAMPBELL FINDINGS: The cardiac [...] Electronically signed by: POORNIMA MONTERO MD Normal [facility] ([place], [place]) Cult, Urineon 04-04-2021 Bacteria identified Cx Nom (U) PL-VXEL-Fvhr 2535A Work Phone: Laboratory - Chemistry and C hemistry - challengeon 04-04-2021 Albumin BCP dye [Mass/Vol] 4.2 g/dL 3.4 - 5.0 YA-UQHM-Kluo 2535A Work Phone: ALP [Catalytic activity/Vol] 81 U/L 33 - 136 ZT-XWVM-Rlfc 2535A Work Phone: ALT With P-5'-P [Catalytic activity/Vol] 24 U/L 7 - 45 DS-MXJU-Bxdx 2535A Work Phone: Comment on above: Patients treated wit h Sulfasalazine may generate falsely decreased results for ALT. Anion gap [Moles/Vol] 12 mmol/L 10 - 20 MP-OXIM-Rhxx 2535A Work Phone: AST With P-5'-P [Catalytic activity/Vol] 22 U/L 9 - 39 NF-DIPB-Cvhn 2535A Work Phone: Bilirubin [Mass/Vol] 0.4 mg/dL 0.0 - 1.2 YS-ZKNZ-Ptip 2535A Work Phone: Calcium [Mass/Vol] 9.6 mg/dL 8.6 - 10.3 MP-WSP C-[place] 2535A Work Phone: Chloride [Moles/Vol] 107 mmol/L 98 - 107 VX-GXNA-Rzpx 2535A Work Phone: CO2 [Moles/Vol] 26 mmol/L 21 - 32 MP-WSPC-A von 2535A Work Phone: Creatinine [Mass/Vol] 0.65 mg/dL See Below QY-PATM-Pstg 2535A Work Phone: Comment on above: Reference Range: 0.5 0 - 1.05 Glucose [Mass/Vol] 89 mg/dL 74 - 99 MP-WSP C-[place] 2535A Work Phone: Potassium [Moles/Vol] 4.7 mmol/L 3.5 - 5.3 UL-GDWB-Abti 2535A Work Phone: Protein [Mass/Vol] 7.2 g/dL 6.4 - 8.2 MP-WSP C-Lail[place] 2535A Work Phone: Sodium [Moles/Vol] 140 mmol/L 136 - 145 MP-WSP C-[place] 2535A Work Phone: Urea nitrogen [Mass/Vol] 12 mg/dL 6 - 23 FV-VTND-Fcmz 2535A Work Phone: Laboratory - Hematology and Cell countson 04-04-2021 Erythrocyte distribution width (RBC) [Ratio] 13.8 % See Below TK-ZARC-Dwtv 2535A Work Phone: Comment on above: Reference Range: 11. 5 - 14.5 Hematocrit (Bld) [Volume fraction] 41.7 % See Below HS-INSA-Xsai 2535A Work Phone: Comment on above: Reference Range: 36. 0 - 46.0 Hemoglobin (Bld) [Mass/Vol] 13.2 g/dL See Below UE-KEPB-Xpdc 2535A Work Phone: Comment on above: Reference Range: 12. 0 - 16.0 MCHC (RBC) [Mass/Vol] 31.7 g/dL below low threshold See Below BR-LVIH-Eddy 2535A Work Phone: Comment on above: Reference Range: 32. 0 - 36.0 MCV (RBC) [Entitic vol] 98 fL 80 - 100 KN-HSYQ-Whqs 2535A Work Phone: Platelets (Bld) [#/Vol] 247 10*3/uL 150 - 450 YC-VKCW-Ebsa 2535A Work Phone: RBC (Bld) [#/Vol] 4.26 {x10E12/L} See Below MP -WSPC-[place] 2535A Work Phone: Comment on above: Reference Range: 4.0 0 - 5.20 WBC (Bld) [#/Vol] 4.7 10*3/uL 4.4 - 11.3 MP-WSP C-[place] 2049X Work Phone: Lipid Panelon 04-04-2021 Cholesterol [Mass/Vol] 206 mg/dL above high threshold 0 - 199 OX-ODLT-Cwam Adormo9V Work Phone: Comment on above: . AGE [...] dosing. Cholesterol in HDL [Mass/Vol] 79.0 mg/dL FW-QCUL-Fgnw Adormo7R Work Phone: Comment on above: . AGE VERY LOW LOW N ORMAL HIGH 0-19 Y < 35 < 40 40-45 ---- 20- 24 Y ---- < 40 >45 ---- >24 Y ---- < 40 40-60 >60. Cholesterol in LDL [Mass/Vol] 95 mg/dL 0 - 99 WO-ZGTD-Epsk Adormo3F Work Phone: Comment on above: . NEAR BORD AGE CHERRIE RABLE OPTIMAL HIGH HIGH VERY HIGH 0-19 Y 0 - 109 --- 110-129 >/= 130 ---- 20-24 Y 0 - 119 --- 120-159 >/= 160 ---- >24 Y 0 - 99 100-129 130-159 160-189 >/=190. Cholesterol.total/C holesterol in HDL [Mass ratio] 2.6 {ratio} HE-QIDZ-Iokh Abigail Stewart Work Phone: Comment on above: REF VALUESDESIRABLE < 3.4HIGH RISK > 5.0 Triglyceride [Mass/Vol] 161 mg/dL above high threshold 0 - 149 UZ-EPCZ-Zari Adormo5A Work Phone: Comment on above: . AGE [...] Lipid Panel 32 mg/dL 0 - 40 YL-NVLD-Tydo Abigail Stewart Work Phone: No Panel Informationon 04-04 >60 >60 JV-LOAK-Ujam Abigail Stewart Work Phone: Comment on above: CALCULATIONS OF RYAN MATED GFR ARE PERFORMED USING THE MDRD STUDY EQUATION FOR THE IDMS-TRACEABLE CREATININE METHODS. CLIN CHEM 2007;53:766-72 Radiologyon 04-04-2021 XR Chest 2 Views Normal MP-WSPC- [place] Abigail Stewart Work Phone: Urinalysison 04-04-2021 Color (U) YELLOW See Below QQ-ZOAS-Srij Abigail Stewart Work Phone: Comment on above: Reference Range: STR AW,YELLOW Glucose Ql (U) Negative NEGATIVE MP-WSPC-Av on Abigail Stewart Work Phone: Ketones Ql (U) Negative NEGATIVE MP-WSPC-Av on Abigail Stewart Work Phone: Leukocyte esterase Test strip Ql (U) LARGE (3+) Abnormal NEGATIVE KQ-AXWJ-Iqgu Adormo5A Work Phone: pH (U) 5.0 [pH] 5.0 - 8.0 TF-DEKN-Cpuz 2535A Work Phone: Protein (U) [Mass/Vol] Negative NEGATIVE SK-PAFF-Wthv 2535A Work Phone: RBC (U) [#/Vol] Negative NEGATIVE MP-WSPC-A von Guy Work Phone: Specific gravity (U) [Rel density] 1.016 1 See Below DK-BHUF-Yrqv 2535A Work Phone: Comment on above: Reference Range: 1.0 05 - 1.035 Urinalysis Negative NEGATIVE HW-MRHC-Jmhx 2535A Work Phone: Urinalysis <2.0 0.0 - 1.9 EX-TFPC-Bajn 2535A Work Phone: Urinalysis CLEAR CLEAR FD-FCMH-Vuoz 2535A Work Phone: Urinalysis, Microscopicon Urinalysis, Microscopic <1 0-5 VR-HUSF-Agan 253Jose Luis Work Phone: Urinalysis, Microscopic 1 {/HPF} 0-5 WO-UTJE-Ohqw 2535A Work Phone: Vitamin D 25-Hydroxyon 04-04 25-hydroxyvitamin D3 [Mass/Vol] 34 ng/mL LY-KGDA-Kzta 253Jose Luis Work Phone: Comment on above: .DEFICIENCY: < 20 NG /MLINSUFFICIENCY: 20-29 NG/MLSUFFICIENCY: 30-100 NG/MLTHIS ASSAY ACCURATELY QUANTIFIES THE SUM OFVITAMIN D3, 25-HYDROXY AND VIT D2,25-HYDROXY. BILATERAL KNEE 3 VIEWSon BILATERAL KNEE 3 VIEWS Patient Name: BRIGITTE HIGH STUDY: BILATERAL KNEE; 3 VIEWS; 02/20/2021 12:06 pm INDICATION: right lateral knee pain. COMPARISON: None. ACCESSION NUMBER(S): [id number] ORDERING CLINICIAN: JING CAMPBELL FINDINGS: Bilateral knees, three views of each Mild tricompartmental osteophytosis bilaterally. There is no joint space narrowing. There is no effusion. No fracture seen IMPRESSION: Mild degenerative changes with osteophyte formation Electronically signed by: RIKY MCDONOUGH MD [facility] C Reactive Protein, Serumon 02-20-2021 CRP [Mass/Vol] 0.59 mg/dL MP-WSPC-Av on Work Phone: Comment on above: REF VALUE< 1.00 Citrulline Antibodyon 2020 Cyclic citrullinated peptide IgG Qn <1 SK-IGFX-Qlhq Work Phone: Comment on above: THE TEST [...] dye [Mass/Vol] 4.3 g/dL 3.4 - 5.0 TQ-FSMH-Lrtw 3O Work Phone: ALP [Catalytic activity/Vol] 70 U/L 33 - 136 AN-ENRW-Rpvm Work Phone: ALT With P-5'-P [Catalytic activity/Vol] 23 U/L 7 - 45 AW-HFVU-Sfnw Work Phone: Comment on above: Patients treated wit h Sulfasalazine may generate falsely decreased results for ALT. Anion gap [Moles/Vol] 13 mmol/L 10 - 20 BW-LAXX-Rqlr 253 Work Phone: AST With P-5'-P [Catalytic activity/Vol] 27 U/L 9 - 39 HX-UMJN-Trvf 253 Work Phone: Bilirubin [Mass/Vol] 0.5 mg/dL 0.0 - 1.2 QW-FZYV-Splc 253 Work Phone: Calcium [Mass/Vol] 9.6 mg/dL 8.6 - 10.3 LYN-THUYP Alphonso Tovar Work Phone: Chloride [Moles/Vol] 107 mmol/L 98 - 107 MY-IIJS-Ccfj 2535A Work Phone: CO2 [Moles/Vol] 23 mmol/L 21 - 32 RIRI Magallanes Work Phone: Creatinine [Mass/Vol] 0.71 mg/dL See Below ID-NAVG-Wray 2535A Work Phone: Comment on above: Reference Range: 0.5 0 - 1.05 Glucose [Mass/Vol] 82 mg/dL 74 - 99 LYN-THUYP Alphonso Tovar Work Phone: Potassium [Moles/Vol] 4.2 mmol/L 3.5 - 5.3 Pio Tovar Work Phone: Protein [Mass/Vol] 7.2 g/dL 6.4 - 8.2 LYN-ERYN Tovar Work Phone: Sodium [Moles/Vol] 139 mmol/L 136 - 145 LYN-THUYP Zaheer-Laila Tovar Work Phone: Urea nitrogen [Mass/Vol] 18 mg/dL 6 - 23 CA-LCFU-MxbdZaynab Tovar Work Phone: Laboratory - Hematology and Cell countson 02-20-2021 Erythrocyte distribution width (RBC) [Ratio] 14.3 % See Below AP-XRWH-Lfyx 2535A Work Phone: Comment on above: Reference Range: 11. 5 - 14.5 Hematocrit (Bld) [Volume fraction] 41.3 % See Below GN-ACCA-Jsmn 2535A Work Phone: Comment on above: Reference Range: 36. 0 - 46.0 Hemoglobin (Bld) [Mass/Vol] 13.0 g/dL See Below QK-YPHK-Gwgq 2535A Work Phone: Comment on above: Reference Range: 12. 0 - 16.0 MCHC (RBC) [Mass/Vol] 31.5 g/dL below low threshold See Below BK-PXDA-Xnwe 2535A Work Phone: Comment on above: Reference Range: 32. 0 - 36.0 MCV (RBC) [Entitic vol] 100 fL 80 - 100 LP-BLPZ-Znfj 2535A Work Phone: Platelets (Bld) [#/Vol] 261 10*3/uL 150 - 450 LW-REMR-Xqlb 2535A Work Phone: RBC (Bld) [#/Vol] 4.13 {x10E12/L} See Below MP -WSPC-Laila 2535A Work Phone: Comment on above: Reference Range: 4.0 0 - 5.20 WBC (Bld) [#/Vol] 6.0 10*3/uL 4.4 - 11.3 MP-WSP C-[place] Guy Work Phone: Laboratory - Serology - non- microon 02-20-2021 Nuclear Ab Hep2 substrate Ql (S) Negative NEGATIVE MA-DLRI-Femr 2535A Work Phone: Comment on above: The Antinuclear Anti body (JACOB) test was performed using indirect immunofluorescence assay with HEp-2 cells slide. No Panel Informationon 02-20 >60 >60 SK-APRL-Lfqa 2535A Work Phone: Comment on above: CALCULATIONS OF RYAN MATED GFR ARE PERFORMED USING THE MDRD STUDY EQUATION FOR THE IDMS-TRACEABLE CREATININE METHODS. CLIN CHEM 2007;53:766-72 Radiologyon 02-20-2021 XR Knee - bilateral 3 Views Normal UE-UQAM-Ubqx 2535A Work Phone: XR Knee - bilateral 3 Views Please click on the link to view the study images Normal YM-QIFD-Qvsf 2535A Work Phone: Rheumatoid Factor, Serum or Plasmaon 02-20-2021 Rheumatoid factor Nephelometry Qn (S) <10 0 - 15 LG-LKMN-Ayuk 9624N Work Phone: Sedimentation Rate, Erythroc yteon 02-20-2021 ESR (Bld) [Velocity] 8 mm/h 0 - 20 HS-CRRC-Tcde 2537N Work Phone: TSH - Thyroid Stimulating Ho rmone, Serumon 02-20-2021 TSH Qn 2.66 m[IU]/L See Below ZZ-YYTR-Iade 5007L Work Phone: Comment on above: Reference Range: 0.4 4 - 3.98 TSH testing is performed using different testing methodology at [facility] than at other [facility]. Direct result comparisons should only be made within the same method. Uric Acid, Serumon 1 Urate [Mass/Vol] 4.5 mg/dL 2.3 - 6.7 BeehiveID-Vulevúon Adormo7A Work Phone: Comment on above: Venipuncture immedia tely after or during the administration of Metamizole may lead to falsely low results. Testing should be performed immediately prior to Metamizole dosing. Vitamin B12, Serumon 021 Cobalamin (Vitamin B12) [Mass/Vol] 306 pg/mL 211 - 911 IF-MFDX-Veno Adormo7X Work Phone: CA27.29 (CA15-3)on 1 Cancer Ag 27-29 Qn 44.7 [arb'U]/mL above high threshold 0.0 - 38.6 EG-BDSB-Fjtx Adormo3I Work Phone: Comment on above: CA 27.29 testing is performed by chemiluminescent immunoassay using the KIDOZ. Values obtained with different analytic methods cannot [...] WBC (Bld) 0.5 % 0.0 - 2.0 UE-FLPW-Rzgn 2535A Work Phone: Erythrocyte distribution width (RBC) [Ratio] 14.1 % See Below ZX-BRSW-Mdfg 2535A Work Phone: Comment on above: Reference Range: 11. 5 - 14.5 Hematocrit (Bld) [Volume fraction] 36.1 % See Below OQ-ESGC-Mvzt 2535A Work Phone: Comment on above: Reference Range: 36. 0 - 46.0 Hemoglobin (Bld) [Mass/Vol] 11.9 g/dL below low threshold See Below SN-PFMQ-Ygfy 2535A Work Phone: Comment on above: Reference Range: 12. 0 - 16.0 Lymphocytes/100 WBC (Bld) 39.4 % See Below UK-PTEP-Iqrh 253Jose Luis Work Phone: Comment on above: Reference Range: 13. 0 - 44.0 MCHC (RBC) [Mass/Vol] 33.0 g/dL See Below CE-LJBK-Xote 253Jose Luis Work Phone: Comment on above: Reference Range: 32. 0 - 36.0 MCV (RBC) [Entitic vol] 95 fL 80 - 100 CD-BUJI-Zxbw Guy Work Phone: Monocytes/100 WBC (Bld) 7.5 % 2.0 - 10.0 IY-BYEN-Togo 2535A Work Phone: Neutrophils/100 WBC (Bld) 50.1 % See Below GV-JNXK-Ggdb 2535A Work Phone: Comment on above: Reference Range: 40. 0 - 80.0 Platelets (Bld) [#/Vol] 225 10*3/uL 150 - 450 GS-PYGI-Kuuz 2535A Work Phone: RBC (Bld) [#/Vol] 3.80 {x10E12/L} below low threshold See Below MA-RWBV-Xbql 2535A Work Phone: Comment on above: Reference Range: 4.0 0 - 5.20 WBC (Bld) [#/Vol] 4.0 10*3/uL below low threshold 4.4 - 11.3 OX-WANZ-Jnwj Guy Work Phone: Complete Blood Count + Differential 0.02 {x10E9/L} See Below CE-CBWG-Lmty Guy Work Phone: Comment on above: Reference Range: 0.0 0 - 0.10 Complete Blood Count + Differential 0.10 {x10E9/L} See Below FR-IBIK-Osen Guy Work Phone: Comment on above: Reference Range: 0.0 0 - 0.40 Complete Blood Count + Differential 0.30 {x10E9/L} See Below SV-HGYY-Jcgk Guy Work Phone: Comment on above: Reference Range: 0.0 5 - 0.80 Complete Blood Count + Differential 1.57 {x10E9/L} See Below FJ-DEYB-Avof Guy Work Phone: Comment on above: Reference Range: 0.8 0 - 3.00 Complete Blood Count + Differential 1.99 {x10E9/L} See Below TV-GTPN-Sbzi Guy Work Phone: Comment on above: Reference Range: 1.6 0 - 5.50 Complete Blood Count + Differential 2.5 % 0.0 - 6.0 DU-VRUL-Hglp Guy Work Phone: Complete Blood Count + Differential 0.0 % 0.0 - 0.9 BF-GPMD-Ketq Guy Work Phone: Comment on above: Immature Granulocyte Count (IG) includes promyelocytes, myelocytes and metamyelocytes but does not include bands. Percent differential counts (%) should be interpreted in the context of the absolute cell counts (cells/L). Laboratory - Chemistry and C hemistry - challengeon 12-26-2020 Albumin BCP dye [Mass/Vol] 4.4 g/dL 3.4 - 5.0 CH-NUQE-Yalk Guy Work Phone: ALP [Catalytic activity/Vol] 66 U/L 33 - 136 YM-XVYB-Umbj 2535A Work Phone: ALT With P-5'-P [Catalytic activity/Vol] 18 U/L 7 - 45 KY-TMXW-Gslb 2535A Work Phone: Comment on above: Patients treated wit h Sulfasalazine may generate falsely decreased results for ALT. Anion gap [Moles/Vol] 10 mmol/L 10 - 20 LL-RZYX-Uzvx 2535A Work Phone: AST With P-5'-P [Catalytic activity/Vol] 19 U/L 9 - 39 OP-NTSM-Otxy 2535A Work Phone: Bilirubin [Mass/Vol] 0.5 mg/dL 0.0 - 1.2 QL-SQEH-Olfk 2535A Work Phone: Calcium [Mass/Vol] 9.6 mg/dL 8.6 - 10.3 MP-WSP C-Laila Óscar5A Work Phone: Chloride [Moles/Vol] 108 mmol/L above high threshold 98 - 107 KO-IVDG-Iith Óscar5A Work Phone: CO2 [Moles/Vol] 25 mmol/L 21 - 32 MP-WSPC-A onel Tovar Work Phone: Creatinine [Mass/Vol] 0.70 mg/dL See Below TO-JSZU-Zrxf [id number] Work Phone: Comment on above: Reference Range: 0.5 0 - 1.05 Glucose [Mass/Vol] 108 mg/dL above high threshold 74 - 99 IJ-QAGJ-Txne 2535A Work Phone: Potassium [Moles/Vol] 3.7 mmol/L 3.5 - 5.3 KY-TXIF-Ntey 2535A Work Phone: Protein [Mass/Vol] 7.1 g/dL 6.4 - 8.2 MP-WSP C-Laila 2535A Work Phone: Sodium [Moles/Vol] 139 mmol/L 136 - 145 MP-WSP C-Laila 7670G Work Phone: Urea nitrogen [Mass/Vol] 16 mg/dL 6 - 23 VZ-IJDX-Xvmd 1A Work Phone: No Panel Informationon 12-26 >60 >60 DH-PRGZ-Vdoi 3785N Work Phone: Comment on above: CALCULATIONS OF RYAN MATED GFR ARE PERFORMED USING THE MDRD STUDY EQUATION FOR THE IDMS-TRACEABLE CREATININE METHODS. CLIN CHEM 2007;53:766-72 Mamm - Screening Mammogram w / Tomosynthesison 07-15-2020 MG Breast screening Interpreted by: BAILEE HUDSON09/17/19 08:23MRN: [id number] Name: BRIGITTE H[employer] STUDY:DIGITAL SCREENING RIGHT-SIDED MAMMOGRAM [...] signed by: BAILEE HUTSON 07/17/20 08:23 Normal PC-OTDV-Srrp 0648N Work Phone: Comment on above: ORDER REVISED TO A D IGITAL MAMM SCREENING W/ CLAUDIA BY RADIOLOGIST; Original Order Number: [id number] [place] 07-15-2020 XR Cervical spine 3 views Interpreted by: YASMINE GIRON07/17/20 10:01MRN: [id number] Name: BRIGITTE HIGH STUDY:SPINE, CERVICAL, 2 OR [...] signed by: YASMINE GIRON 07/17/20 10:01 Normal [facility] [facility] Work Phone: XR Lumbar spine AP and lateral Interpreted by: YASMINE GIRON07/17/20 10:02MRN: [id number] Name: BRIGITTE HIGH STUDY:SPINE, LUMBOSACRAL; 2 OR [...] signed by: YASMINE GIRON 07/17/20 10:02 Normal [employer] 2535A Work Phone: KNEES BOTH STANDINGon 2017 KNEES BOTH STANDING DATE OF EXAM: May 07 2018 1:48PM CLINICAL HISTORY/ Patient Name: BRIGITTE HIGH STUDY: KNEES BOTH STANDING; 05/07/2018 1:48 pm INDICATION: cervical radiculopathy, bilat knee pain. COMPARISON: None. ACCESSION NUMBER(S): [id number] ORDERING CLINICIAN: JING CAMPBELL FINDINGS: No fracture or dislocation of either knee. Moderate joint space narrowing. Tiny patellar osteophytes. CONCLUSION: IMPRESSION: Moderate degenerative changes of the knees. Normal [facility] SPINE C MIN 4 VIEWSon 2017 SPINE C MIN 4 VIEWS DATE OF EXAM: May 07 2018 1:48PM CLINICAL HISTORY/ Patient Name: BRIGITTE HIGH STUDY: SPINE C MIN 4 VIEWS; 05/07/2018 1:48 pm INDICATION: cervical radiculopathy, bilat knee pain. COMPARISON: None. ACCESSION NUMBER(S): [id number] ORDERING CLINICIAN: JING CAMPBELL FINDINGS: Anterior metallic [...] Degenerative changes of the cervical spine. Normal [facility] LUMBAR SP WO CONTRASTon 09-26 LUMBAR SP WO CONTRAST STUDY:LUMBAR SP WO CONTRAST; 10/18/2017 8:10 amINDICATION:LUMBAR RADICULOPATHY (M54.16).COMPARISON:04/29ACCESSION NUMBER(S):[id number] RDERING CLINICIAN:Jing CampbellTECHNIQUE:Sagittal and axial T1 and [...] to theright at L3-4 and L4-5.Interpreted within [facility], [place] Normal [facility] Vital Signs Date Time Vital Sign Value Performing Clinician Facility 01-14-2025 09:58-0400 Body mass index (BMI) [Ratio] 25.64 kg/m2 Carlito Horvath MD Work Phone: [facility] 01-14-2025 09:58-0400 Body temperature 97.5 [degF] Carlito Horvath MD Work Phone: [facility] 01-14-2025 09:58-0400 Body weight 69.9 kg Carlito Horvath MD Work Phone: [facility] 01-14-2025 09:58-0400 Diastolic blood pressure 83 mm[Hg] Carlito Horvath MD Work Phone: [facility] 01-14-2025 09:58-0400 Heart rate 66 /min Carlito Horvath MD Work Phone: [facility] 01-14-2025 09:58-0400 Respiratory rate 16 /min Carlito Horvath MD Work Phone: [facility] 01-14-2025 09:58-0400 SaO2% (BldA) [Mass fraction] 97 % Carlito Horvath MD Work Phone: [facility] 01-14-2025 09:58-0400 Systolic blood pressure 135 mm[Hg] Carlito Horvath MD Work Phone: [facility] 11-23-2024 14:10-0400 Body weight 74.3 kg Danielito Carmen DO Work Phone: [facility] 11-23-2024 14:10-0400 Diastolic blood pressure 66 mm[Hg] Danielito Carmen DO Work Phone: [facility] 11-23-2024 14:10-0400 Systolic blood pressure 112 mm[Hg] Danielito Carmen DO Work Phone: [facility] 11-18-2024 08:43-0400 Body height 165.1 cm Lexx Diop MD Work Phone: [facility] 11-18-2024 08:43-0400 Body mass index (BMI) [Ratio] 26.63 kg/m2 Lexx Diop MD Work Phone: [facility] 11-18-2024 08:43-0400 Body temperature 97.11 [degF] Lexx Diop MD Work Phone: [facility] 11-18-2024 08:43-0400 Body weight 72.58 kg Lexx Diop MD Work Phone: [facility] 11-18-2024 08:43-0400 Diastolic blood pressure 88 mm[Hg] Lexx Diop MD Work Phone: [facility] 11-18-2024 08:43-0400 Heart rate 68 /min Lexx Diop MD Work Phone: [facility] 11-18-2024 08:43-0400 SaO2% (BldA) [Mass fraction] 96 % Lexx Diop MD Work Phone: [facility] 11-18-2024 08:43-0400 Systolic blood pressure 138 mm[Hg] Lexx Diop MD Work Phone: [facility] 10-21-2024 09:15-0400 Body height 165.1 cm Lexx Diop MD Work Phone: [facility] 10-21-2024 09:15-0400 Body mass index (BMI) [Ratio] 26.96 kg/m2 Lexx Diop MD Work Phone: [facility] 10-21-2024 09:15-0400 Body temperature 97.2 [degF] Lexx Diop MD Work Phone: [facility] 10-21-2024 09:15-0400 Body weight 73.48 kg Lexx Diop MD Work Phone: [facility] 10-21-2024 09:15-0400 Diastolic blood pressure 76 mm[Hg] Lexx Diop MD Work Phone: [facility] 10-21-2024 09:15-0400 Heart rate 86 /min Lexx Diop MD Work Phone: [facility] 10-21-2024 09:15-0400 SaO2% (BldA) [Mass fraction] 97 % Lexx Diop MD Work Phone: [facility] 10-21-2024 09:15-0400 Systolic blood pressure 122 mm[Hg] Lexx Diop MD Work Phone: [facility] 09-21-2024 10:35-0500 Body height 165.1 cm Christi Jones APRN.SYSTEMS INTEGRATION ANALYST Work Phone: [facility] 09-21-2024 10:35-0500 Body mass index (BMI) [Ratio] 27.36 kg/m2 Christi Karen HYDROLOGIC MODELER.SYSTEMS INTEGRATION ANALYST Work Phone: [facility] 09-21-2024 10:35-0500 Body weight 74.57 kg Christi Karen HYDROLOGIC MODELER.SYSTEMS INTEGRATION ANALYST Work Phone: [facility] 09-21-2024 10:35-0500 Diastolic blood pressure 86 mm[Hg] Christi Karen HYDROLOGIC MODELER.SYSTEMS INTEGRATION ANALYST Work Phone: [facility] 09-21-2024 10:35-0500 Heart rate 67 /min Christi Karen HYDROLOGIC MODELER.SYSTEMS INTEGRATION ANALYST Work Phone: [facility] 09-21-2024 10:35-0500 Systolic blood pressure 135 mm[Hg] Christi Jones APRN.SYSTEMS INTEGRATION ANALYST Work Phone: [facility] 01-16-2024 10:23-0400 Body mass index (BMI) [Ratio] [...] 165.1 cm MD Star Recinos Work Phone: [facility] 12-21-2023 09:57-0400 Body mass index (BMI) [Ratio] 26.8 kg/m2 MD Star Recinos Work Phone: [facility] 12-21-2023 09:57-0400 Body temperature 97.8 [degF] MD Star Recinos Work Phone: [facility] 12-21-2023 09:57-0400 Body weight 73.02 kg MD Star Recinos Work Phone: [facility] 12-21-2023 09:57-0400 Diastolic blood pressure 70 mm[Hg] MD Star Recinos Work Phone: [facility] 12-21-2023 09:57-0400 Heart rate 77 /min MD Star Recinos Work Phone: [facility] 12-21-2023 09:57-0400 Respiratory rate 16 /min MD Star Recinos Work Phone: [facility] 12-21-2023 09:57-0400 SaO2% (BldA) [Mass fraction] 98 % MD Star Recinos Work Phone: [facility] 12-21-2023 09:57-0400 Systolic blood pressure 112 mm[Hg] MD Star Recinos Work Phone: [facility] 08-25-2023 11:36-0500 Blood Pressure Location Star RECINOS [facility] 08-25-2023 11:36-0500 Diastolic blood pressure 84 mm[Hg] Star RECINOS [facility] 08-25-2023 11:36-0500 Heart rate 79 /min Star RECINOS [facility] 08-25-2023 11:36-0500 Respiratory rate 16 /min Star RECINOS [facility] 08-25-2023 11:36-0500 Systolic blood pressure 134 mm[Hg] Star RECINOS [facility] 12-10-2022 16:07-0400 Body height 165.1 cm Kristyn Dougherty Work Phone: -[facility] Work Phone: 12-10-2022 16:07-0400 Body mass index (BMI) [Ratio] 26.96 kg/m2 Kristyn Dougherty Work Phone: -[facility] Work Phone: 12-10-2022 16:07-0400 Body surface area Derived from formula 1.81 m2 Kristyn Dougherty Work Phone: -[facility] Work Phone: 12-10-2022 16:07-0400 Body weight 73.48 kg Kristyn Dougherty Work Phone: [facility] Work Phone: 04-29-2022 11:05-0400 Body height 163.83 cm Jing Campbell Work Phone: UO-FYDY-Knwb 2535A Work Phone: 04-29-2022 11:05-0400 Body mass index (BMI) [Ratio] 28.73 kg/m2 Jing Campbell Work Phone: CP-NIMH-Xtif 2535A Work Phone: 04-29-2022 11:05-0400 Body surface area Derived from formula 1.84 m2 Jing Campbell Work Phone: LX-XSPE-Djxv 2535A Work Phone: 04-29-2022 11:05-0400 Body temperature 97.5 [degF] Jing Campbell Work Phone: JN-EODE-Ddzn 2535A Work Phone: 04-29-2022 11:05-0400 Body weight 77.11 kg Jing Campbell Work Phone: LO-KEXS-Nblb 2535A Work Phone: 04-29-2022 11:05-0400 Diastolic blood pressure 82 mm[Hg] Jing Garciaey Work Phone: FZ-KNOA-Pwaw 2535A Work Phone: 04-29-2022 11:05-0400 Heart rate 72 /min Jingbryce Garciaey Work Phone: NC-EQGD-Udrr 2535A Work Phone: 04-29-2022 11:05-0400 Respiratory rate 16 /min Jing Saud Garciaey Work Phone: BW-JXXH-Bile 2535A Work Phone: 04-29-2022 11:05-0400 SaO2% (BldA) [Mass fraction] 98 % Jing Garciaey Work Phone: TM-OSUK-Uybg 2535A Work Phone: 04-29-2022 11:05-0400 Systolic blood pressure 130 mm[Hg] Jing Garciaey Work Phone: OZ-YPAS-Lysi 2535A Work Phone: 04-12-2022 11:45-0400 Body mass index (BMI) [Ratio] 27.79 kg/m2 Jing Garciaey Work Phone: NW-YLYZ-Bxun 2535A Work Phone: 04-12-2022 11:45-0400 Body surface area Derived from formula 1.83 m2 Jing Campbell Work Phone: LF-LFZO-Wswp 2535A Work Phone: 04-12-2022 11:45-0400 Body temperature 98.2 [degF] Jing Campbell Work Phone: NY-QGEF-Ppjz 2535A Work Phone: 04-12-2022 11:45-0400 Body weight 75.75 kg Jing Campbell Work Phone: SM-BRVO-Vcnr 2535A Work Phone: 04-12-2022 11:45-0400 Diastolic blood pressure 80 mm[Hg] Jing Campbell Work Phone: HY-SFEJ-Fidb 2535A Work Phone: 04-12-2022 11:45-0400 Heart rate 72 /min Jing Campbell Work Phone: LS-SDGX-Rmoz 2535A Work Phone: 04-12-2022 11:45-0400 Respiratory rate 18 /min Jing Campbell Work Phone: UI-GZVI-Zuot 2535A Work Phone: 04-12-2022 11:45-0400 SaO2% (BldA) [Mass fraction] 98 % Jing Campbell Work Phone: XR-IHSQ-Pqjz 2535A Work Phone: 04-12-2022 11:45-0400 Systolic blood pressure 126 mm[Hg] Jing Campbell Work Phone: NJ-YBTY-Wzqy 2535A Work Phone: 01-07-2022 09:18-0400 Body height 165.1 cm Jing Campbell Work Phone: [facility] Work Phone: 01-07-2022 09:18-0400 Body mass index (BMI) [Ratio] 28.11 kg/m2 Jing Campbell Work Phone: [facility] Work Phone: 01-07-2022 09:18-0400 Body surface area Derived from formula 1.84 m2 Jing Campbell Work Phone: [facility] Work Phone: 01-07-2022 09:18-0400 Body weight 76.61 kg Jing Campbell Work Phone: [facility] Work Phone: 01-07-2022 09:18-0400 Diastolic blood pressure 70 mm[Hg] Jing Campbell Work Phone: [facility] Work Phone: 01-07-2022 09:18-0400 Systolic blood pressure 118 mm[Hg] Jing Campbell Work Phone: [facility] Work Phone: 11-20-2021 13:51-0400 Body height 165.1 cm Jing Campbell Work Phone: [facility] Work Phone: 11-20-2021 13:51-0400 Body mass index (BMI) [Ratio] 28.62 kg/m2 Jing Campbell Work Phone: [facility] Work Phone: 11-20-2021 13:51-0400 Body surface area Derived from formula 1.86 m2 Jing Campbell Work Phone: [facility] Work Phone: 11-20-2021 13:51-0400 Body weight 78.02 kg Jing Campbell Work Phone: [facility] Work Phone: 11-20-2021 13:51-0400 Diastolic blood pressure 80 mm[Hg] Jing Campbell Work Phone: [facility] Work Phone: 11-20-2021 13:51-0400 Systolic blood pressure 110 mm[Hg] Jing Campbell Work Phone: [facility] Work Phone: 10-29-2021 11:29-0400 Body mass index (BMI) [Ratio] 28.62 kg/m2 Jing Campbell Work Phone: KA-DYKI-Umjv 2535A Work Phone: 10-29-2021 11:29-0400 Body surface area Derived from formula 1.86 m2 Jing Campbell Work Phone: KP-LAPS-Wnws 2535A Work Phone: 10-29-2021 11:29-0400 Body temperature 98.2 [degF] Jing Campbell Work Phone: SQ-IWME-Rrpu 2535A Work Phone: 10-29-2021 11:29-0400 Body weight 78.02 kg Jing Campbell Work Phone: DB-HNZK-Jjmq 2535A Work Phone: 10-29-2021 11:29-0400 Diastolic blood pressure 72 mm[Hg] Jing Campbell Work Phone: KD-FSHT-Uggj 2535A Work Phone: 10-29-2021 11:29-0400 Heart rate 76 /min Jing Campbell Work Phone: MR-SKJA-Hodt 2535A Work Phone: 10-29-2021 11:29-0400 Respiratory rate 18 /min Jing Campbell Work Phone: WU-OLLN-Aagn 2535A Work Phone: 10-29-2021 11:29-0400 SaO2% (BldA) [Mass fraction] 98 % Jing Campbell Work Phone: NZ-VMJT-Rwqi 2535A Work Phone: 10-29-2021 11:29-0400 Systolic blood pressure 122 mm[Hg] Jing Campbell Work Phone: PB-XIRB-Uepw 2535A Work Phone: 05-08-2021 11:20-0400 Diastolic blood pressure 82 mm[Hg] Jing Campbell Work Phone: CP-VKGB-Rifs 2535A Work Phone: 05-08-2021 11:20-0400 Systolic blood pressure 130 mm[Hg] Jing Campbell Work Phone: LW-TUKL-Sjxv 2535A Work Phone: 05-08-2021 10:35-0400 Body height 165.1 cm Jing Campbell Work Phone: CG-ZQHK-Udka 2535A Work Phone: 05-08-2021 10:35-0400 Body mass index (BMI) [Ratio] 28.62 kg/m2 Jing Campbell Work Phone: MK-IWBA-Zhjd 2535A Work Phone: 05-08-2021 10:35-0400 Body surface area Derived from formula 1.86 m2 Jing Campbell Work Phone: XG-KWWY-Lusb 2535A Work Phone: 05-08-2021 10:35-0400 Body temperature 97.5 [degF] Jing Campbell Work Phone: IE-SGXL-Tzwm 2535A Work Phone: 05-08-2021 10:35-0400 Body weight 78.02 kg Jing Campbell Work Phone: EU-SGRC-Beez 2535A Work Phone: 05-08-2021 10:35-0400 Diastolic blood pressure 84 mm[Hg] Jing Campbell Work Phone: XH-OTWA-Riso 2535A Work Phone: 05-08-2021 10:35-0400 Heart rate 80 /min Jing Garciaey Work Phone: SW-TAHD-Eprc 2535A Work Phone: 05-08-2021 10:35-0400 Respiratory rate 16 /min Jing Campbell Work Phone: CT-UPDW-Ipsf 2538E Work Phone: 05-08-2021 10:35-0400 SaO2% (BldA) [Mass fraction] 98 % Jing Campbell Work Phone: DY-QBZC-Poyu 2535A Work Phone: 05-08-2021 10:35-0400 Systolic blood pressure 144 mm[Hg] Jing Campbell Work Phone: OW-XAZU-Kmkl 2535O Work Phone: 04-20-2021 09:27-0400 Body height 165.1 cm Jing Campbell Work Phone: [facility] Work Phone: 04-20-2021 09:27-0400 Body mass index (BMI) [Ratio] 28.29 kg/m2 Jing Campbell Work Phone: [facility] Work Phone: 04-20-2021 09:27-0400 Body surface area Derived from formula 1.85 m2 Jing Campbell Work Phone: [facility] Work Phone: 04-20-2021 09:27-0400 Body temperature 97.3 [degF] Jing Campbell Work Phone: [facility] Work Phone: 04-20-2021 09:27-0400 Body weight 77.11 kg Jing Campbell Work Phone: [facility] Work Phone: 04-20-2021 09:27-0400 Diastolic blood pressure 93 mm[Hg] Jing Campbell Work Phone: [facility] Work Phone: 04-20-2021 09:27-0400 Heart rate 69 /min Jing Campbell Work Phone: [facility] Work Phone: 04-20-2021 09:27-0400 Systolic blood pressure 139 mm[Hg] Jing Campbell Work Phone: [facility] Work Phone: 04-04-2021 09:17-0400 Body height 165.1 cm Jing Campbell Work Phone: AM-CFCX-Wnzc 2535A Work Phone: 04-04-2021 09:17-0400 Body mass index (BMI) [Ratio] 28.46 kg/m2 Jing Campbell Work Phone: IR-ORBU-Hamy 2535A Work Phone: 04-04-2021 09:17-0400 Body surface area Derived from formula 1.85 m2 Jing Campbell Work Phone: KO-QNNH-Cvvs 2535A Work Phone: 04-04-2021 09:17-0400 Body temperature 97.7 [degF] Jing Campbell Work Phone: HK-SVIU-Nzyv 2535A Work Phone: 04-04-2021 09:17-0400 Body weight 77.57 kg Jing Campbell Work Phone: WQ-NEHR-Bshy 2535A Work Phone: 04-04-2021 09:17-0400 Diastolic blood pressure 84 mm[Hg] Jing Campbell Work Phone: ZT-TZEA-Bvth 2535A Work Phone: 04-04-2021 09:17-0400 Heart rate 68 /min Jing Campbell Work Phone: JS-NEGD-Hjwm 2535A Work Phone: 04-04-2021 09:17-0400 Respiratory rate 18 /min Jing Campbell Work Phone: PF-HZBZ-Uqes 2535A Work Phone: 04-04-2021 09:17-0400 SaO2% (BldA) [Mass fraction] 98 % Jing Campbell Work Phone: DD-GRVX-Paqj 2535A Work Phone: 04-04-2021 09:17-0400 Systolic blood pressure 128 mm[Hg] Jing Campbell Work Phone: EG-DSXH-Sauc 2535A Work Phone: 03-20-2021 15:27-0400 Body height 166.37 cm Jing Campbell Work Phone: HL-QEXX-Oilb 2535A Work Phone: 03-20-2021 15:27-0400 Body mass index (BMI) [Ratio] 27.04 kg/m2 Jing Campbell Work Phone: SV-YWON-Dugv 2535A Work Phone: 03-20-2021 15:27-0400 Body surface area Derived from formula 1.83 m2 Jing Campbell Work Phone: DJ-MFFH-Pmxx 2535A Work Phone: 03-20-2021 15:27-0400 Body weight 74.84 kg Jing Campbell Work Phone: QK-GICM-Qfes 2535A Work Phone: 02-20-2021 10:54-0400 Body mass index (BMI) [Ratio] 27.12 kg/m2 Jing Saud Adrian Work Phone: XW-LITF-Lmqh 2535A Work Phone: 02-20-2021 10:54-0400 Body surface area Derived from formula 1.81 m2 Jing Garciaey Work Phone: SW-YCEV-Chce 2535A Work Phone: 02-20-2021 10:54-0400 Body temperature 97.2 [degF] Jing Garciaey Work Phone: UC-HLFO-Ggwf 2535A Work Phone: 02-20-2021 10:54-0400 Body weight 73.94 kg Jing Campbell Work Phone: FW-NHRM-Bdpx 2535A Work Phone: 02-20-2021 10:54-0400 Diastolic blood pressure 78 mm[Hg] Jing Garciaey Work Phone: XE-JPAK-Nztz 2535A Work Phone: 02-20-2021 10:54-0400 Heart rate 72 /min Jing Campbell Work Phone: ML-CWJS-Ffdo 2535A Work Phone: 02-20-2021 10:54-0400 Respiratory rate 16 /min Jing Campbell Work Phone: OI-SFQR-Beqx 2535A Work Phone: 02-20-2021 10:54-0400 SaO2% (BldA) [Mass fraction] 98 % Jing Campbell Work Phone: KF-AMAE-Cgsf 2535A Work Phone: 02-20-2021 10:54-0400 Systolic blood pressure 128 mm[Hg] Jing Campbell Work Phone: II-QWIQ-Idmt 2535A Work Phone: 12-27-2020 09:29-0400 Body mass index (BMI) [Ratio] 26.29 kg/m2 Jing Campbell Work Phone: GL-AWCT-Oaej 2535A Work Phone: 12-27-2020 09:29-0400 Body surface area Derived from formula 1.79 m2 Jing Campbell Work Phone: FQ-KUZU-Lvmm 2535A Work Phone: 12-27-2020 09:29-0400 Body temperature 97.8 [degF] Jing Campbell Work Phone: XF-HUKN-Nlaw 2535A Work Phone: 12-27-2020 09:29-0400 Body weight 71.67 kg Jing Campbell Work Phone: BJ-GKUL-Vzoc 2535A Work Phone: 12-27-2020 09:29-0400 Diastolic blood pressure 82 mm[Hg] Jing Campbell Work Phone: MB-NPWR-Sgnz 2535A Work Phone: 12-27-2020 09:29-0400 Heart rate 72 /min Jing Campbell Work Phone: IF-JGNC-Mlfu 2535A Work Phone: 12-27-2020 09:29-0400 Respiratory rate 16 /min Jing Campbell Work Phone: IN-WOBP-Rbji 2535A Work Phone: 12-27-2020 09:29-0400 SaO2% (BldA) [Mass fraction] 97 % Jing Campbell Work Phone: VR-QNZT-Hgdp 8021D Work Phone: 12-27-2020 09:29-0400 Systolic blood pressure 132 mm[Hg] Jing Campbell Work Phone: XS-KYTA-Vbhy 0041S Work Phone: Encounters Encounter Date Encounter Type Care Provider Facility Start: 04-04-2025 ambulatory Star Saud Macias ty:[facility] Start: 01-14-2025 End: 01-14-2025 Office outpatient visit 25 minutes Carlito Horvath MD Work Phone: [facility] Comment on above: Malignant neoplasm o f central portion of right breast in female, estrogen receptor negative (Primary Dx); Iron deficiency; Dry eyes; Postmenopausal osteoporosis; Peptic ulcer disease; Closed sleeve fracture of left patella, sequela Start: 01-14-2025 End: 01-14-2025 ambulatory [facility] Start: 12-24-2024 End: 12-24-2024 Clinisync Result Encounter Danielito Carmen DO Work Phone: [facility] External [facility] Unsolicited Start: 12-24-2024 End: 12-24-2024 Clinisync Result Encounter Danielito Carmen DO Work Phone: [facility] External [facility] Unsolicited Start: 11-23-2024 End: 11-23-2024 Bamboo flowsheet Danielito [...] 11-23-2024 End: 11-23-2024 Patient encounter status Danielito Morales DO Work Phone: [facility] Start: 11-23-2024 End: 11-23-2024 ambulatory DANIELITO MORALES Not Available Start: 11-18-2024 End: 11-18-2024 Office outpatient visit 15 minutes Lexx Diop MD Work Phone: [facility] Comment on above: PAD (peripheral johny ry disease) (Primary Dx); Ischemia of both feet Start: 11-15-2024 ambulatory Star RECINOS Facili ty:[id number] Start: 10-21-2024 End: 10-21-2024 Office outpatient new 45 minutes Lexx Diop MD Work Phone: [facility] Comment on above: Ischemia of both fee t (CMS-HCC) (Primary Dx); PAD (peripheral artery disease) (CMS-HCC); Arterial embolism (CMS-HCC) Start: 10-18-2024 End: 10-18-2024 ambulatory Star RECINOS Facility:[facility] Start: 09-22-2024 End: 01-04-2025 Telephone encounter Sanya Simms MD Work Phone: [facility] Comment on above: Received Outside Med ical Records Start: 09-21-2024 End: 09-21-2024 Telephone encounter Christi Jones APRN.SYSTEMS INTEGRATION ANALYST Work Phone: [facility] Comment on above: Refill Request Start: 09-21-2024 End: 09-21-2024 Patient encounter procedure Christi Jones APRN.SYSTEMS INTEGRATION ANALYST Work Phone: [facility] Comment on above: Constipation, unspec ified constipation type (Primary Dx); History of colon polyps Start: 09-13-2024 End: 09-16-2024 Telephone encounter [facility] Work Phone: [facility] Start: 06-02-2024 End: 06-02-2024 ambulatory Jadyn Chavez Facility:[facility] Start: 05-05-2024 End: 05-05-2024 ambulatory Jadyn Ghazoul Facility:[facility] Start: 05-03-2024 End: 05-03-2024 ambulatory Star RECINOS Facility:[id number] Start: 04-21-2024 End: 04-21-2024 ambulatory Kristyn Dougherty Facility:[facility] Start: 03-31-2024 End: 03-31-2024 ambulatory Kristyn Ladonna Facility:[facility] Start: 03-17-2024 End: 03-17-2024 ambulatory Kristyn Ladonna Facility:[facility] Start: 03-10-2024 End: 03-10-2024 ambulatory Kristyn Ladonna Facility:[facility] Start: 03-04-2024 ambulatory Jadyn Ghazoul Facility :[facility] Start: 03-04-2024 End: 03-04-2024 ambulatory Kristyn Dougherty Facility:[facility] Start: 02-18-2024 End: 02-18-2024 ambulatory Jadyn Ghazoul Facility:[facility] Start: 02-04-2024 End: 02-04-2024 ambulatory Jadyn Ghazoul Facility:[facility] Start: 01-20-2024 End: 01-20-2024 ambulatory Jadyn Ghazoul Facility:[facility] Start: 01-16-2024 End: 01-16-2024 Office outpatient visit 25 minutes Carlito Horvath MD Work Phone: [facility] Comment on above: Malignant neoplasm o f central portion of right breast in female, estrogen receptor negative (Multi) (Primary Dx); Iron deficiency; Postmenopausal osteoporosis; Peptic ulcer disease; Dry eyes; Closed sleeve fracture of left patella, sequela Start: 12-21-2023 End: 12-21-2023 ambulatory MD Star Recinos Work Phone: [facility] Work Phone: Start: 12-21-2023 End: 12-21-2023 Patient encounter procedure MD Star Recinos Work Phone: [facility] Work Phone: Start: 11-04-2023 End: 11-04-2023 ambulatory Star RECINOS [facility] Start: 11-04-2023 End: 11-04-2023 Lab Drop off Star RECINOS [facility] Start: 11-04-2023 End: 11-04-2023 ambulatory Star RECINOS Facility:[facility] Start: 11-04-2023 End: 11-04-2023 Patient encounter procedure Star RECINOS [facility] Start: 10-06-2023 End: 10-06-2023 Patient encounter procedure Star RECINOS [facility] Start: 09-25-2023 End: 09-25-2023 ambulatory Star Recinos Facility:[facility] Start: 09-25-2023 End: 09-25-2023 Departed Referred MD Star Recinos Work Phone: [facility] Start: 08-25-2023 End: 08-25-2023 Patient encounter procedure Star RECINOS [facility] Start: 03-28-2023 End: 03-28-2023 ambulatory Lawrence MEDINA Facility:[facility] Start: 03-28-2023 End: 03-28-2023 Patient encounter procedure Lawrence Medina MD Work Phone: Plastic Surgery Comment on above: Breast pain (Primary Dx); Acquired breast deformity; Capsular contracture of breast implant, initial encounter Start: 03-25-2023 End: 03-25-2023 ambulatory Lawrence MEDINA Facility:[facility] Start: 02-11-2023 Patient encounter procedure [facility]herty [facility] Work Phone: Start: 02-11-2023 ambulatory MD SANDRA TAYLOR Facility: [id number] Start: 01-17-2023 ambulatory MD CARLITO HORVATH Facility:[facility] Start: 01-17-2023 ambulatory MD CARLITO HORVATH Facility:9542 Start: 01-07-2023 ambulatory MD SANDRA TAYLOR Facility: 9330 Start: 12-18-2022 ambulatory KRISTYN DOUGHERTY Facility: H1 Start: 12-17-2022 ambulatory MD SANDRA TAYLOR Facility: 9330 Start: 12-10-2022 Patient encounter procedure Kristyn Dougherty Work Phone: [facility] Work Phone: Start: 12-10-2022 ambulatory DO JING CAMPBELL Facility:9330 Start: 11-28-2022 End: 11-29-[address] ILDEFONSO HO Facility:H1 Start: 10-18-2022 End: 10-19-2022 ambulatory KRISTYN DOUGHERTY Facility:H1 Start: 08-17-2022 End: 08-18-[address] ILDEFONSO HO Facility:H1 Start: 07-05-2022 End: 07-05-2022 ambulatory KRISTYN DOUGHERTY Facility:H1 Start: 06-28-2022 End: 06-28-2022 ambulatory KRISTYN DOUGHERTY Facility:H1 Start: 05-01-2022 Chart Update Jing canseco Work Phone: [id number] Work Phone: Start: 04-29-2022 ambulatory DO JING CAMPBELL Facility:[id number] Start: 04-29-2022 Current tobacco non-user cad cap copd pv dm Jing Campbell Work Phone: [id number] Work Phone: Start: 04-16-2022 Chart Update Jing canseco Work Phone: AP-ERSD-Mtsm [id number] Work Phone: Start: 04-12-2022 Patient encounter procedure Jing Campbell Work Phone: AV-SKGO-Ttqb [id number] Work Phone: Start: 04-12-2022 ambulatory DO JING CAMPBELL Facility:9228 Start: 01-07-2022 Office outpatient visit 15 minutes Jing Campbell Work Phone: [facility] Work Phone: Start: 11-30-2021 AUDIT Jing canseco Work Phone: [id number] [id number] Work Phone: Start: 11-28-2021 AUDIT Jing canseco Work Phone: [id number]-Dnun [id number] Work Phone: Start: 11-26-2021 Chart Update Jing canseco Work Phone: AK-SXHF-Ncor [id number] Work Phone: Start: 11-20-2021 Office outpatient new 45 minutes Jing Campbell Work Phone: [facility] Work Phone: Start: 10-29-2021 Office outpatient visit 25 minutes Jing Campbell Work Phone: CS-KUGU-Nxtz [id number] Work Phone: Start: 05-08-2021 Current tobacco non-user cad cap copd pv dm Jing Campbell Work Phone: [id number] [id number] Work Phone: Start: 04-20-2021 Office consultation new/estab patient 60 min Jing Campbell Work Phone: [facility] [place] Work Phone: Start: 04-04-2021 Office outpatient visit 25 minutes Jing Campbell Work Phone: [id number]-QVWG-Xwef [id number] Work Phone: Start: 03-13-2021 AUDIT Jing Saud Garcia ajith Work Phone: SM-GUEU-Gepo 2535A Work Phone: Start: 02-26-2021 AUDIT Jing Saud Garcia ajith Work Phone: GQ-GLOR-Xfcr [id number] Work Phone: Start: 02-23-2021 Chart Update Jing Saud Garcia ajith Work Phone: [id number]-[id number] 2535A Work Phone: Start: 02-20-2021 Office outpatient visit 25 minutes Jing Campbell Work Phone: [id number]-[id number] 2535A Work Phone: Start: 02-20-2021 Patient encounter procedure Jing Campbell Work Phone: [id number]-Pvzg 2535A Work Phone: Start: 12-27-2020 Office outpatient visit 25 minutes Jing Campbell Work Phone: [id number]-SLQQ-Cgvm 2535A Work Phone: Start: 07-10-2020 Patient encounter procedure Jing Adrian RB-TYLA-Ozzd 2535A Work Phone: Start: 02-11-2020 Patient encounter procedure Jing Adrian XK-WKVJ-Qcus 2535A Work Phone: Start: 07-01-2019 Patient encounter procedure Jingbryec Campbell AY-LXDY-Ospg 2535A Work Phone: Start: 05-19-2019 Patient encounter procedure Jing Campbell QF-QFAU-Foyw 2535A Work Phone: Start: 05-10-2019 Patient encounter procedure Jing Adrian QU-ZCND-Ycxw 2535A Work Phone: Start: 08-25-2018 Patient encounter procedure JUAN RUTHERFORD Facility:8 Start: 05-07-2018 Patient encounter procedure JING CAMPBELL Facility:3 Start: 10-18-2017 Ambulatory Jing Campbell Facility :[facility] Procedures Date Procedure Procedure Detail Performing Clinician Start: 12-24-2024 Screening digital br east tomosynthesis bi Danielito Morales DO Work Phone: Start: 05-16-2022 Colonoscopy Carlito paul MD Work [...] Lauren Campbell Procedure on back [place] TERCynthia Procedure on neck [place] TERCynthia Tonsillectomy and adenoidectomy Jing Campbell Comment on above: uvula also removed; Total hysterectomy Jing Campbell Work Phone: Comment on above: 1982 - due AUB and e nloarged ovarian cyst; Plan of Treatment Date Care Activity Detail Author Start: 05-16-2032 Screening for malignant neoplasm of colon [facility] Start: 04-29-2027 Lipid panel [facility] Start: 01-13-2026 End: 07-16-2026 Cancer Ag 27-29 [Units/volume] in Serum or Plasma Cancer Antigen 27-29 Lab Routine Malignant neoplasm of central portion of right breast in female, estrogen receptor negative Expected: 01/13/2026 (Approximate), Expires: 07/16/2026 [facility] Work Phone: Comment on above: Expected: 01/13/2026 (Approximate), Expi res: 07/16/2026 Start: 01-13-2026 End: 07-16-2026 CBC W Auto Differential panel - Blood CBC and Auto Differential Lab Routine Malignant neoplasm of central portion of right breast in female, estrogen receptor negative Expected: 01/13/2026, Expires: 07/16/2026 [facility] Service Area Work Phone: Comment on above: Expected: 01/13/2026, Expires: Start: 01-13-2026 End: 07-16-2026 Comprehensive metabolic 2000 panel - Serum or Plasma Comprehensive metabolic panel Lab Routine Malignant neoplasm of central portion of right breast in female, estrogen receptor negative Expected: 01/13/2026 (Approximate), Expires: 07/16/2026 [facility] Work Phone: Comment on above: Expected: 01/13/2026 (Approximate), Expi res: 07/16/2026 Start: 01-13-2026 End: 07-16-2026 Ferritin [Mass/volume] in Serum or Plasma Ferritin Lab Routine Iron deficiency Expected: 01/13/2026 (Approximate), Expires: 07/16/2026 [facility] Work Phone: Comment on above: Expected: 01/13/2026 (Approximate), Expi res: 07/16/2026 Start: 01-13-2026 End: 07-16-2026 Iron and Iron binding capacity panel - Serum or Plasma Iron and TIBC Lab Routine Iron deficiency Expected: 01/13/2026, Expires: 07/16/2026 [facility] Work Phone: Comment on above: Expected: 01/13/2026, Expires: Start: 01-13-2026 End: 01-13-2026 Patient encounter procedure 01/13/2026 10:00 AM EDT Office Visit [facility] [address] [place] [address] [place] [address] [place] [address] [facility] Start: 12-25-2025 Screening for osteoporosis Bone Density Scan [facility] Start: 10-21-2025 Adult BMI Screening Adult BMI Screening [facility] Start: 10-21-2025 Tobacco Screening Tobacco Screening [facility] Start: 04-29-2025 Diabetes Screening Diabetes Screening [facility] Start: 03-28-2025 Influenza vaccination [facility] Start: 01-14-2025 End: 07-17-2025 Cancer [...] receptor negative (Multi) Expected: 01/14/2025, Expires: 07/17/2025 [facility] Service Area Work Phone: Comment on above: [...] Start: 01-14-2025 End: 01-14-[address] [facility] Comment on above: 4 month follow up visit Start: 12-23-2024 Screening for malignant neoplasm of breast Mammogram Screening [facility] Start: 11-23-2024 End: 01-23-2026 MG Breast - bilateral Screening Bilateral screening mammogram Imaging Routine Breast cancer screening by mammogram Expected: 11/23/2024, Expires: 01/23/2026 [facility] Work Phone: Comment on above: Expected: 11/23/2024, Expires: Start: 11-23-2024 End: 11-23-2024 Patient encounter procedure 11/23/2024 2:00 PM EDT Office Visit [facility] OB [address] [address] Danielito Morales, DO [address] Renee Cotton, [place] [address] Arrived [facility] Comment on above: Arrived Start: 2024 RSV Vaccine (1 - 1-dose 75+ series) RSV Vaccine (1 - 1-dose 75+ series) [facility] Start: 10-21-2024 End: 10-21-2025 CTA Abdominal Aorta and Bilateral Runoff Vessels W contrast IV CT angiogram abdominal aorta with runoff Imaging Routine Arterial embolism (CMS-HCC) Expected: 10/21/2024, Expires: 10/21/2025 [facility] Work Phone: Comment on above: Expected: 10/21/2024, Expires: Start: 10-07-2024 Medicare Annual Wellness Visit Medicare Annual Wellness Visit (AWV) [facility] Start: 09-21-2024 End: 09-21-2024 Patient encounter procedure 09/21/2024 10:30 AM EST Office Visit [facility] [address] [place] [id number] Christi Jones APRN.SYSTEMS INTEGRATION ANALYST [address] [place] [address] constipation pain lower back [facility] Comment on above: constipation pain lower back Start: 07-28-2024 Advance Directive Discussion Advance Directive Discussion [facility] Start: 06-10-2024 Administration of varicella zoster vaccine Zoster (Shingles) Vaccine (3 of 3) [facility] Start: 06-10-2024 Shingrix Vaccine (3 of 3) Shingrix Vaccine (3 of 3) [facility] Start: 03-28-2024 Covid-19 Vaccine ( season) Covid-19 Vaccine ( season) [facility] Start: 03-28-2024 Influenza vaccination Influenza Vaccine (#1) [facility] Start: 11-26-2023 Zoster Vaccines (3 of 3) Zoster Vaccines (3 of 3) [facility] Start: 05-16-2023 Screening for malignant neoplasm of colon [facility] Start: 03-28-2023 COVID-19 Vaccine ( season) COVID-19 Vaccine ( season) [facility] Start: 03-28-2023 Influenza vaccination INFLUENZA (#1) [facility] Start: 03-20-2023 Urine microalbumin profile DTaP,Tdap,Td Vaccine (2 - Td or Tdap) [facility] Start: 01-07-2023 FUV, Provider: Sandra Taylor, Status: Pen, Time: 9:45 AM FUV, Provider: Sandra Taylor, Status: Pen, Time: 9:45 AM [facility] Work Phone: Start: 10-29-2022 EPV, Provider: Jing Campbell, Status: Pen, Time: 10:40 AM EPV, Provider: Jing Campbell, Status: Pen, Time: 10:40 AM [id number]-[id number] [id number] Work Phone: Start: 07-28-2022 ADVANCE DIRECTIVE DISCUSSION ADVANCE DIRECTIVE DISCUSSION [facility] Start: 07-28-2022 DEPRESSION ASSESSMENT DEPRESSION ASSESSMENT [facility] Start: 04-29-2022 MCRINITIAL, Provider: Jing Campbell, Status: Pen, Time: 10:40 AM MCRINITIAL, Provider: Jing Campbell, Status: Pen, Time: 10:40 AM PV-VOTL-Mwae 2535A Work Phone: Start: 01-07-2022 FUV, Provider: Efra Barnett, Status: Pen, Time: 9:15 AM FUV, Provider: Efra Barnett, Status: Pen, Time: 9:15 AM [facility] Work Phone: Start: 12-05-2021 NPV, Provider: Efra Barnett, Status: Pen, Time: 9:30 AM NPV, Provider: Efra Barnett, Status: Pen, Time: 9:30 AM QO-YAZU-Lzuf [id number] Work Phone: Start: 07-16-2021 COVID-19 VACCINE (4 - Moderna series) COVID-19 VACCINE (4 - Moderna series) [facility] Start: 05-08-2021 Patient encounter procedure MCRANNUAL, Provider: Jing Campbell, Status: Pen, Time: 10:20 AM [id number] 2535A Work Phone: Start: 04-20-2021 NPV, Provider: Allyn Ba, Status: Pen, Time: 9:30 AM NPV, Provider: Allyn Ba, Status: Pen, Time: 9:30 AM [facility] Work Phone: Start: 04-04-2021 MCRINITIAL, Provider: Jing Campbell, Status: Pen, Time: 9:20 AM MCRINITIAL, Provider: Jing Campbell, Status: Pen, Time: 9:20 AM [id number]-Eqlw 2535A Work Phone: Start: 03-20-2021 NPV, Provider: Juan Rutherford, Status: Pen, Time: 2:30 PM NPV, Provider: Juan Rutherford, Status: Pen, Time: 2:30 PM [facility] Work Phone: Start: 02-16-2021 NPV, Provider: Allyn Ba, Status: Pen, Time: 8:00 AM NPV, Provider: Allyn Ba, Status: Pen, Time: 8:00 AM CM-WPQY-Ajap 2535A Work Phone: Start: 2014 BONE DENSITY BONE DENSITY [facility] Start: 2014 Fall Risk Screening Fall Risk Screening [facility] Start: 2014 PNEUMOCOCCAL: 65+ (1 - PCV) PNEUMOCOCCAL: 65+ (1 - PCV) [facility] Start: 2014 Screening for osteoporosis Bone Density Screening [facility] Start: 08-16-2014 Shingrix Vaccine (2 of 3) Shingrix Vaccine (2 of 3) [facility] Start: 11-08-1999 SHINGRIX VACCINE (1 of 2) SHINGRIX VACCINE (1 of 2) [facility] Start: 1994 COLOGUARD (FIT-DNA) COLOGUARD (FIT-DNA) [facility] Start: 1994 Colonoscopy COLONOSCOPY [facility] Start: 1994 COLORECTAL CANCER SCREENING COLORECTAL CANCER SCREENING [facility] Start: [address] COLONOGRAPHY [facility] Start: 1994 DIABETES SCREEN DIABETES SCREEN [facility] Start: 1994 FECAL OCCULT BLOOD FECAL OCCULT BLOOD [facility] Start: 1994 LIPID SCREEN LIPID SCREEN [facility] Start: 1994 Screening for malignant neoplasm of colon [facility] Start: 1994 SIGMOIDOSCOPY SIGMOIDOSCOPY [facility] Start: 1989 Mammography MAMMOGRAM [facility] Start: 11-08-1971 DTaP/Tdap/Td Vaccines (1 - Tdap) DTaP/Tdap/Td Vaccines (1 - Tdap) [facility] Start: 1968 DTaP,Tdap and Td Vaccines (1 - Tdap) DTaP,Tdap and Td Vaccines (1 - Tdap) [facility] Start: 1968 Urine microalbumin profile DTAP,TDAP,TD (1 - Tdap) [facility] Start: 11-08-1967 Adult BMI Follow Up Plan Adult BMI Follow Up Plan [facility] Start: 11-08-1967 Anxiety Screening Anxiety Screening [facility] Start: 11-08-1967 Depression Screening Depression Screening [facility] Start: 11-08-1967 HEPATITIS C SCREENING HEPATITIS C SCREENING [facility] Start: 11-08-1967 Hepatitis C screening Hepatitis C Screening [facility] Start: 1961 Depression Screening Depression Screening [facility] Start: 1949 Medicare Annual Wellness Visit Medicare Annual Wellness Visit (AWV) [facility] Start: 1949 Screening for malignant neoplasm of colon [facility] Start: 1949 Screening for osteoporosis Bone Density Scan [facility] End: 10-21-2025 Creatinine includes GFR, serum Creatinine includes GFR, serum Lab Routine PAD (peripheral artery disease) (CMS-HCC) Ischemia of both feet (CMS-HCC) Arterial embolism ([facility]-H[facility]) 1 Occurrences starting 10/21/2024 until 10/21/2025 [facility] Comment on above: 1 Occurrences starting 10/21/2024 until 10/21/2025 Immunizations Immunization Date Immunization Notes Care Provider Fa [facility] 04-15-2024 influenza virus vaccine, unspecified formulation Lexx Diop MD Work Phone: [facility] 04-15-2024 zoster vaccine, unspecified formulation Lexx Diop MD Work Phone: [facility] 10-01-2022 influenza virus vaccine, unspecified formulation [facility] Work Phone: [facility] 04-12-2022 Fluzone High-Dose Quadrivalent 0.7 ML Intramuscular Suspension Prefilled Syringe; Translations: [Fluzone High-Dose Quadrivalent 0.7 ML Intramuscular Suspension Prefilled Syringe] Jing Campbell Work Phone: [id number]-Bexn [id number] Work Phone: Comment on above: Series: 05-21-2021 Moderna COVID-19 Vaccine 100 MCG/0.5ML Intramuscular Suspension Jing Campbell Work Phone: [facility] Comment on above: Series: 04-04-2021 influenza, high dose seasonal, preservative-free; Translations: [Fluzone High-Dose 0.5 ML Intramuscular Suspension Prefilled Syringe] Jing Campbell Work Phone: [id number]-[id number] 2539B Work Phone: Comment on above: Series: 10-27-2020 Moderna COVID-19 Vaccine 100 MCG/0.5ML Intramuscular Suspension Jing Campbell Work Phone: NJ-XCCK-Ybbg 2532G Work Phone: Comment on above: Series: 09-22-2020 Moderna COVID-19 Vaccine 100 MCG/0.5ML Intramuscular Suspension Jing Campbell Work Phone: [facility] 03-20-2020 influenza, injectable, quadrivalent, preservative free Jing Campbell Work Phone: EG-AIII-Ylvp 2535V Work Phone: 05-19-2019 influenza, high dose seasonal, preservative-free; Translations: [Fluzone High-Dose 0.5 ML Intramuscular Suspension Prefilled Syringe] Jing Campbell HH-IINR-Czfa 2533Y Work Phone: Comment on above: Series: 05-10-2019 pneumococcal polysaccharide vaccine, 23 valent; Translations: [Pneumococcal polysaccharide vaccine, 23 valent] Jing Campbell [facility] Comment on above: Series: 03-12-2018 influenza, high dose seasonal, preservative-free Jing Campbell Work Phone: CM-GOEJ-Cyep 2534A Work Phone: 05-08-2016 pneumococcal conjugate vaccine, 13 valent Jing Campbell Work Phone: RC-ZTBI-Qopi 2535A Work Phone: Comment on above: Series: 06-21-2014 pneumococcal polysaccharide vaccine, 23 valnolvia Villavicencio Adrian Work Phone: [facility] 06-21-2014 zoster vaccine, live Hayley morales Saud Campbell Work Phone: [facility] COVID-19 mRNA booste r vaccine, Moderna, (Moderna COVID-19 Vac, Booster,) 50 MCG/0.5ML suspension dark blue cap injection Danielito Morales DO Work Phone: [facility] Healthcare Payers Date Payer Category Payer Self-pay 2021 Commercial Indemnity [facility] UA [id number] 2021 Private Health Insurance [id number] 2021 Unknown 2014 Medicare [id number] [id number]. [id number] 1992 Medicare [id number] 1959 Medicare [id number] 1959 Unknown [id number] 1949 Unknown [id number] 2.16.840.1.187832.3.579.2. 355 1949 Unknown [id number] 2.16.840.1.961438.3.579.2. 355 1949 Unknown [id number] 2.16.840.1.963495.3.579.2. 593 1949 Unknown [id number] 2.16.840.1.380012.3.579.2. 593 1949 Unknown [id number] 2.16.840.1.397147.3.579.2. 593 1949 Unknown [id number] 2.16.840.1.575787.3.579.2. 593 1949 Unknown [id number] 2.16.840.1.887621.3.579.2. 593 1949 Unknown [id number] 2.16.840.1.417377.3.579.2. 593 1949 Unknown [id number] 2.16.840.1.286634.3.579.2. 1069 1949 Unknown [id number] 2.16.840.1.832261.3.579.2. 356 1949 Unknown [id number] 2.16.840.1.404126.3.579.2. 356 1949 Unknown [id number] 2.16.840.1.789884.3.579.2. 356 1949 Unknown [id number] 2.16.840.1.105079.3.579.2. 356 1949 Unknown [id number] 2.16.840.1.987673.3.579.2. 356 1949 Unknown [id number] 2.16.840.1.964570.3.579.2. 356 1949 Unknown [id number] 2.16.840.1.128144.3.579.2. 356 1949 Unknown [id number] 2.16.840.1.830718.3.579.2. 727 1949 Unknown [id number] 2.16.840.1.347004.3.579.2. 727 1949 Unknown [id number] 2.16.840.1.796503.3.579.2. 727 1949 Unknown [id number] 2.16.840.1.487361.3.579.2. 727 1949 Unknown [id number] 2..840.1.671224.3.579.2. 727 1949 Unknown [id number] 2.840.1.759857.3.579.2. 1259 1949 Unknown [id number] 2.840.1.857815.3.579.2. 1243 1949 Unknown [id number] 2.840.1.678470.3.579.2. 1245 Unknown [id number] Unknown [id number] 2.840.1.334364.3.579.2. 531 Unknown [id number] 2.840.1.799648.3.579.2. 462 Unknown [id number] 2.840.1.227163.3.579.2. 462 Unknown [id number] 2.840.1.986598.3.579.2. 462 Unknown [id number] 2.840.1.505077.3.579.2. 462 Unknown [id number] 2.840.1.585805.3.579.2. 462 Unknown [id number] 2.840.1.317965.3.579.2. 462 Unknown [id number] 2.840.1.379796.3.579.2. 462 Unknown [id number] 2.840.1.377373.3.579.2. 462 Unknown [id number] 2.840.1.799185.3.579.2. 462 Unknown [id number] 2.840.1.933128.3.579.2. 462 Unknown [id number] 2.16.840.1.799035.3.579.2. 462 Social History Date Type Detail Facility Start: 03-11-2022 End: 02-24-2023 Former smoker Former smoker AP-[id number]-Bmml 2535A Work Phone: Start: 05-30-2014 End: 10-21-2024 Tobacco smoking status NHIS Ex-smoker [facility] History of tobacco use Current smoker [facility] Start: 03-11-2022 End: 09-21-2024 Alcohol intake Current drinker of alcohol (finding) [facility] Start: 03-11-2022 End: 02-24-2023 Tobacco use panel [facility] National Score (1-100), lower number is lower risk 91 [facility] Start: 05-30-2014 Tobacco Comment quit 7 years ago [facility] Start: 05-30-2014 Alcohol Comment social [facility] Start: 1950 Sex Assigned At Not on file [facility] Start: 1950 Sex Assigned At Female [facility] Start: 01-16-2024 Tobacco smoking status FLIS Tobacco smoking consumption unknown [facility] Start: 01-06-2024 End: 01-16-2024 Exposure to SARS-CoV-2 (event) Not sure [facility] History of tobacco use Cigarette Smoker [facility] Start: 10-21-2024 Tobacco use and exposure Smokeless tobacco non-user [facility] Start: 10-21-2024 Tobacco Comment Patient smoked 1PPD [id number] [facility] Start: 09-30-2024 Sex Female (finding) [facility] NEGATED: Highlighted row - - [id number] 2535A Work Phone: Medical Equipment Procedure Code Equipment Code Equipment Origin al Text Equipment Identifier Dates Lens Iol +15.50 Acrsf 13mm 6mm - [id number] Start: 04-11-2015 Lens Iol +14 Salvador p 0 D Bcnvx 13 - [id number] Start: 04-25-2015 Functional Status Date Assessment Result Facility 10-06-2023 Functional Status N/A [facility] 08-25-2023 Functional Status N/A [facility] 12-09-2014 Are you deaf, or do you have serious difficulty hearing No 12/09/2014 11:05 AM Xiomy Daly LPN [facility] 12-09-2014 Are you blind, or do you have serious difficulty seeing, even when wearing glasses No 12/09/2014 11:05 AM Xiomy Daly LPN [facility] 12-09-2014 Do you have serious difficulty walking or climbing stairs No 12/09/2014 11:05 AM Xiomy Daly LPN [facility] 12-09-2014 Do you have difficul ty dressing or bathing No 12/09/2014 11:05 AM Xiomy Daly LPN [facility] 12-09-2014 Because of a physica l, mental, or emotional condition, do you have difficulty doing errands alone such as visiting a physician's office or shopping No 12/09/2014 11:05 AM Xiomy Daly LPN [facility] NEGATED: Highlighted row Functional performance Functional status health issues are not documented Disease [id number] Work Phone: Mental Status Date Assessment Result Facility 12-09-2014 Because of a physical, mental, or emotional condition, do you have serious difficulty concentrating, remembering, or making decisions No 12/09/2014 11:05 AM Xiomy Daly LPN [facility] NEGATED: Highlighted row Cognitive function [Interpretation] Cognitive status health issues are not documented Disease [id number]-Pniu [id number] Work Phone: Clinical Notes 12-28-2020 to 01-14-2025 Carlito Horvath MD - 01/14/2025 10:00 AM EDTPatient InstructionsSangeeta Bennett LPN - 11/23/2024 2:00 PM EDTAssessment & Plan Note - Lexx Diop MD - 11/18/2024 9:10 AM EDTPatient Instructions Note Date & Type Note Facility 01-14-2025 History of Presen t illness Narrative Patient ID: Brigitte High is a 74 y.o. female. [place]erring [place]: [place] [id number] [place] [address] Primary Care Provider: NADIRA Davis Visit Type: Follow Up Subjective HPI I am doing okay Did you see my labwork results? Review of Systems Constitutional: Negative. HENT: Negative. Eyes: Negative. Respiratory: Negative. Cardiovascular: Negative. Gastrointestinal: Negative. Endocrine: Negative. Genitourinary: Negative. Musculoskeletal: Negative. Skin: Negative. Neurological: Negative. Hematological: Negative. Psychiatric/Behavioral: Negative. Objective BSA: 1.79 meters squared BP 135/83 (BP Location: Right arm, Patient Position: Sitting, BP Cuff Size: Adult) Pulse 66 Temp 36.4 C (97.5 F) (Temporal) Resp 16 Wt 69.9 kg (154 lb 1.6 oz) SpO2 97% BMI 25.64 kg/m has a past medical history of [...] history (11/20/2021); and Other surgical history (11/20/2021). Family History[1] Oncology History No history exists. Brigitte High [...] pulses. Heart sounds: Normal heart sounds. Pulmonary: Effort: Pulmonary effort is normal. Breath [...] normal. WBC Date/Time Value Ref Range Status 01/14/2025 09:51 AM 5.7 4.4 - 11.3 x10*3/uL Final 04/29/2022 11:49 AM 6.0 4.4 - 11.3 x10E9/L Final 04/12/2022 12:16 PM 5.9 4.4 - 11.3 x10E9/L Final 01/18/2022 10:00 AM 5.8 4.4 - 11.3 x10E9/L Final nRBC Date Value Ref Range Status 02/11/2020 0.0 0.0 - 0.0 /100 WBC Final 05/10/2019 0.0 0.0 - 0.0 /100 WBC Final 11/09/2018 0.0 0.0 - 0.0 /100 WBC Final RBC Date Value Ref Range Status 01/14/2025 4.07 4.00 - 5.20 x10*6/uL Final 04/29/2022 4.24 4.00 - 5.20 x10E12/L Final 04/12/2022 4.24 4.00 - 5.20 x10E12/L Final 01/18/2022 4.24 4.00 - 5.20 x10E12/L Final Hemoglobin Date Value Ref Range Status 01/14/2025 12.4 12.0 - 16.0 g/dL Final 04/29/2022 12.9 12.0 - 16.0 g/dL Final 04/12/2022 13.0 12.0 - 16.0 g/dL Final 01/18/2022 12.9 12.0 - 16.0 g/dL Final Hematocrit Date Value Ref Range Status 01/14/2025 38.2 36.0 - 46.0 % Final 04/29/2022 41.0 36.0 - 46.0 % Final 04/12/2022 41.1 36.0 - 46.0 % Final 01/18/2022 39.5 36.0 - 46.0 % Final MCV Date/Time Value Ref Range Status 01/14/2025 09:51 AM 94 80 - 100 fL Final 04/29/2022 11:49 AM 97 80 - 100 fL Final 04/12/2022 12:16 PM 97 80 - 100 fL Final 01/18/2022 10:00 AM 93 80 - 100 fL Final MCH Date/Time Value Ref Range Status 01/14/2025 09:51 AM 30.5 26.0 - 34.0 pg Final MCHC Date/Time Value Ref Range Status 01/14/2025 09:51 AM 32.5 32.0 - 36.0 g/dL Final 04/29/2022 11:49 AM 31.5 (L) 32.0 - 36.0 g/dL Final 04/12/2022 12:16 PM 31.6 (L) 32.0 - 36.0 g/dL Final 01/18/2022 10:00 AM 32.7 32.0 - 36.0 g/dL Final RDW Date/Time Value Ref Range Status 01/14/2025 09:51 AM 13.3 11.5 - 14.5 % Final 04/29/2022 11:49 AM 14.0 11.5 - 14.5 % Final 04/12/2022 12:16 PM 13.8 11.5 - 14.5 % Final 01/18/2022 10:00 AM 14.0 11.5 - 14.5 % Final Platelets Date/Time Value Ref Range Status 01/14/2025 09:51 AM 237 150 - 450 x10*3/uL Final 04/29/2022 11:49 AM 268 150 - 450 x10E9/L Final 04/12/2022 12:16 PM 287 150 - 450 x10E9/L Final 01/18/2022 10:00 AM 272 150 - 450 x10E9/L Final No results found for: MPV Neutrophils % Date/Time Value Ref Range Status 01/14/2025 09:51 AM 58.1 40.0 - 80.0 % Final 01/18/2022 10:00 AM 54.7 40.0 - 80.0 % Final 12/26/2020 10:30 AM 50.1 40.0 - 80.0 % Final 12/22/2019 01:38 PM 52.2 40.0 - 80.0 % Final Immature Granulocytes %, Automated Date/Time Value Ref Range Status 01/14/2025 09:51 AM 0.0 0.0 - 0.9 % Final Comment: Immature Granulocyte Count (IG) includes promyelocytes, myelocytes and metamyelocytes but does not include bands. Percent differential counts (%) should be interpreted in the context of the absolute cell counts (cells/UL). 01/18/2022 10:00 AM 0.3 0.0 - 0.9 [...] Lymphocytes % Date/Time Value Ref Range Status 01/14/2025 09:51 AM 31.4 13.0 - 44.0 % Final 01/18/2022 10:00 AM 33.4 13.0 - 44.0 % Final 12/26/2020 10:30 AM 39.4 13.0 - 44.0 % Final 12/22/2019 01:38 PM 37.2 13.0 - 44.0 % Final Monocytes % Date/Time Value Ref Range Status 01/14/2025 09:51 AM 6.8 2.0 - 10.0 % Final 01/18/2022 10:00 AM 8.7 2.0 - 10.0 % Final 12/26/2020 10:30 AM 7.5 2.0 - 10.0 % Final 12/22/2019 01:38 PM 7.0 2.0 - 10.0 % Final Eosinophils % Date/Time Value Ref Range Status 01/14/2025 09:51 AM 2.8 0.0 - 6.0 % Final 01/18/2022 10:00 AM 2.4 0.0 - 6.0 % Final 12/26/2020 10:30 AM 2.5 0.0 - 6.0 % Final 12/22/2019 01:38 PM 2.8 0.0 - 6.0 % Final Basophils % Date/Time Value Ref Range Status 01/14/2025 09:51 AM 0.9 0.0 - 2.0 % Final 01/18/2022 10:00 AM 0.5 0.0 - 2.0 % Final 12/26/2020 10:30 AM 0.5 0.0 - 2.0 % Final 12/22/2019 01:38 PM 0.8 0.0 - 2.0 % Final Neutrophils Absolute Date/Time Value Ref Range Status 01/14/2025 09:51 AM 3.31 1.60 - 5.50 x10*3/uL Final Comment: Percent differential counts (%) should be interpreted in the context of the absolute cell counts (cells/uL). 01/18/2022 10:00 AM 3.18 1.60 - 5.50 x10E9/L Final 12/26/2020 10:30 AM 1.99 1.60 - 5.50 x10E9/L Final 12/22/2019 01:38 PM 3.22 1.20 - 7.70 x10E9/L Final Immature Granulocytes Absolute, Automated Date/Time Value Ref Range Status 01/14/2025 09:51 AM 0.00 0.00 - 0.50 x10*3/uL Final Lymphocytes Absolute Date/Time Value Ref Range Status 01/14/2025 09:51 AM 1.79 0.80 - 3.00 x10*3/uL Final 01/18/2022 10:00 AM 1.95 0.80 - 3.00 x10E9/L Final 12/26/2020 10:30 AM 1.57 0.80 - 3.00 x10E9/L Final 12/22/2019 01:38 PM 2.29 1.20 - 4.80 x10E9/L Final Monocytes Absolute Date/Time Value Ref Range Status 01/14/2025 09:51 AM 0.39 0.05 - 0.80 x10*3/uL Final 01/18/2022 10:00 AM 0.51 0.05 - 0.80 x10E9/L Final 12/26/2020 10:30 AM 0.30 0.05 - 0.80 x10E9/L Final 12/22/2019 01:38 PM 0.43 0.10 - 1.00 x10E9/L Final Eosinophils Absolute Date/Time Value Ref Range Status 01/14/2025 09:51 AM 0.16 0.00 - 0.40 x10*3/uL Final 01/18/2022 10:00 AM 0.14 0.00 - 0.40 x10E9/L Final 12/26/2020 10:30 AM 0.10 0.00 - 0.40 x10E9/L Final 12/22/2019 01:38 PM 0.17 0.00 - 0.70 x10E9/L Final Basophils Absolute Date/Time Value Ref Range Status 01/14/2025 09:51 AM 0.05 0.00 - 0.10 x10*3/uL Final 01/18/2022 10:00 AM 0.03 0.00 - 0.10 x10E9/L Final 12/26/2020 10:30 AM 0.02 0.00 - 0.10 x10E9/L Final 12/22/2019 01:38 PM 0.05 0.00 - 0.10 x10E9/L Final Comment: Automated WBC differential has been confirmed by manual smear. No components found for: PT No results found for: APTT Medication Documentation Review Audit Reviewed by Gabby Wallace MA (Lumber [employer]iler) on 01/14/25 at 0958 Medication Order Taking? Sig Documenting Provider Last Dose Status bimatoprost (Latisse) 0.03 % ophthalmic solution [id number] Yes APPLY 1 INCH TO AFFECTED EYE EVERYDAY AT BEDTIME Jing Campbell Taking Active cholecalciferol (Vitamin D-3) 50 MCG (1999) tablet [id number] Yes Take 1 tablet (50 mcg) by mouth once daily. Historical Provider, Taking Active doxycycline (Vibramycin) 100 mg capsule [id number] Yes Take by mouth. Historical Provider, Taking Active methylPREDNISolone (Medrol Dospak) 4 mg tablets [id number] Yes Take by mouth. Historical Provider, Taking Active sennosides (Senokot) 8.6 mg tablet [id number] Yes 8 tablets (68.8 mg) once daily at bedtime. Historical Provider, Taking Active vit B complex 100 combo no.2 (B-100 Complex) 100 mg tablet extended release [id number] Yes Take by mouth. 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, invasive ductal carcinoma of the left breast in 1998, for which she underwent left radical mastectomy followed by reconstruction -It was ER neg, MA neg, and FDW9cjx neg -She had received post-op chemotherapy but is unable to recall the names of these agents -She did not need radiation therapy -The implant did rupture at one point, and she needed this to be replaced -last mammo was done in 12/24/2023 in [place]--breasts are heterogeneously dense which may obscure small masses; scattered benign appearing calcifications are present; no significant suspicious findings in either breast -here for interval followup -doing well, has no new complaints -mammo done at [facility] on 12/24/2024 reviewed--the breasts are heterogeneously dense, which may obscure small masses; no significant suspicious finding in right breast, benign appearing calcifications are present -labs done with PCP on 11/09/2024 reviewed--wbc 4.9, hgb 13.1, plt 278,000, ANC 2700, serum Fe 59, creatinine 0.67, calcium 9.4, vitamin D 34.6 -labs to be done today included CBC + COMP CA 27.9 + iron panel + ferritin -results reviewed-- wbc 5.7, hgb 12.4, plt 237,000, creatinine 0.56, calcium 9.3, alk phos 68, AST 20, total bili 0.4, ALT 21, TIBC 337, sat 18%, ferritin 59 -will see her again in 1 year 2) osteoporosis -was on fosamax -was on prolia -now just on high dose vitamin D supplements 50,000 units once per week 3) dry eyes -on latisse 4) Peptic ulcer disease -has history of gastric ulcers -diagnosed in 2008, but subsequent EGD in 2017 revealed no abnormalities in her stomach. 5) fractured patella -while visiting a friend in [place] in January 2023--she saw her friend returning home, and ran through the house intending to open the front gate--she tripped on a landing and fractured her left kneecap--neither her friend nor her friend's wanted to take her to the ED so when she returned to [place] she went to the ER and had xrays done confirming fractured left patella--she worse a knee stabilizer/brace Problem List Items Addressed This Visit ICD-10-CM Malignant neoplasm of central portion of right breast in female, estrogen receptor negative C50.111, Z17.1 Relevant Orders Clinic Appointment Request Follow Up; CARLITO HORVATH; [facility] CBC and Auto Differential Comprehensive metabolic panel Cancer Antigen 27-29 Iron deficiency - Primary E61.1 Relevant Orders Iron and TIBC Ferritin Carlito Horvath MD [1] No family history on file. documented in this encounter [facility] Work Phone: 01-14-2025 Instructions Carlito Horvath MD - 01/14/2025 10:00 AM EDT See you again in 1 year documented in this encounter [facility] Work Phone: 11-23-2024 History of Presen t illness Narrative Reason for Appointment: Patient ID: Brigitte High is a 74 y.o. female who presents for Well Women Visit Patient presents today for Consult appointment. MEDICATIONS Current Outpatient Medications Medication Instructions B Fdswgqy-Iemxwb-UA (GNP B-100 Complex) tablet controlled-release Oral bimatoprost [...] fracture due to osteoporosis by DEXA scan ([facility]) 01/26/2024 Resolved Ambulatory Problems Diagnosis Date Noted [...] nursing note reviewed. Exam conducted with a tile molder hand present. Vitals: There is no height or [...] Danielito Morales DO documented in this encounter [facility] 11-18-2024 Evaluation + Plan note Associated Problem(s): PAD (peripheral artery disease) Continue aspirin and statin. Continue Crestor 5 mg and aspirin 81 mg.Risk factors modification to control blood pressure. Continue walking [facility] 11-18-2024 Evaluation + Plan note Associated Problem(s): Ischemia of both feet Continue aspirin and statin. Continue Crestor 5 mg and aspirin 81 mg.Risk factors modification to control blood pressure. Continue walking [facility] 11-18-2024 Miscellaneous Notes Associated Problem(s): PAD (peripheral artery disease) Continue aspirin and statin. Continue Crestor 5 mg and aspirin 81 mg.Risk factors modification to control blood pressure. Continue walking Associated Problem(s): Ischemia of both feet Continue aspirin and statin. Continue Crestor 5 mg and aspirin 81 mg.Risk factors modification to control blood pressure. Continue walking documented in this encounter [facility] 11-18-2024 History of Presen t illness Narrative Images from the original note were not included. To: KRISTYN DOUGHERTY, HYDROLOGIC MODELER-SYSTEMS INTEGRATION ANALYST HPI: Brigitte High is a 74 y.o. [...] mouth in the morning. 60 tablet 3 dphyii-dhkjnlrs-wxyugcztjp dis (NEURIVA DE-STRESS) 100-200-10 mg capsule Take 1 tablet by mouth in the morning. ibuprofen (MOTRIN) 600 mg tablet Take 1 tablet (600 mg total) by mouth every 8 (eight) hours as needed. smbolvrd-mck-xrykg acid-lutein 0.4-250 mg-mcg tablet Take 1 tablet by mouth in the morning. rosuvastatin (CRESTOR) 5 mg tablet Take 1 tablet (5 mg total) by mouth in the morning. 30 tablet 3 TURMERIC ORAL Take 1 tablet by mouth in the morning. No current facility-administered medications on file prior to visit. Past Medical History: Past Medical History: Diagnosis Date Cancer ([facility]) History of arterial disease of lower extremity [...] tobacco: Never Tobacco comments: Patient smoked 1PPD [id number] Substance and Sexual Activity Alcohol use: Not [...] Lexx Diop MD, LARA, RPVI, FSVS, FACS [facility] This note was created with the assistance of a speech recognition program. While intending to generate a timely document that accurately reflects the content of the visit, no guarantee can be provided that every grammatical or spelling mistake has been or will be identified or corrected. Thank you for your understanding. 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 She has strong palpable popliteal pulses. She has strong family history of abdominal arctic aneurysm. The plan is to start aspirin Plavix and Statin. We will alsoget a CTA abdomen pelvis with runoff. 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 She has strong palpable popliteal pulses. She has strong family history of abdominal arctic aneurysm. The plan is to start aspirin Plavix and Statin. We will alsoget a CTA abdomen pelvis with runoff. documented in this encounter [facility] [employer] 10-21-2024 History of Presen t illness Narrative [...] mouth every 8 (eight) hours as needed. fkwhvmpo-owo-kytek acid-lutein 0.4-250 mg-mcg tablet Take 1 tablet by mouth in the morning. TURMERIC ORAL Take 1 tablet by mouth in the morning. calcium carbonate (OS-JAMESON) 600 mg elemental (1,500 mg) tablet Take 1 tablet (600 mg total) by mouth in the morning and 1 tablet (600 mg total) in the evening. Take with meals. zfzzgu-cmbaywce-uajsusavro dis (NEURIVA DE-STRESS) 100-200-10 mg capsule Take 1 tablet by mouth in the morning. No current facility-administered medications on file prior to visit. 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 She has strong palpable popliteal pulses. She has strong family history of abdominal arctic aneurysm. The plan is to start aspirin Plavix and Statin. We will alsoget a CTA abdomen pelvis with runoff. Brigitte was seen today for pad (peripheral artery disease) ([facility]) i73.9] please sc. Diagnoses and all orders for this visit: Ischemia of both feet ([facility]) PAD (peripheral artery disease) ([facility]) [facility] [place], [place] Arterial embolism ([facility]) Lexx Diop MD, LARA, RPVI, FSVS, FACS [facility] This note was created with the assistance of a speech recognition program. While intending to generate a timely document that accurately reflects the content of the visit, no guarantee can be provided that every grammatical or spelling mistake has been or will be identified or corrected. Thank you for your understanding. documented in this encounter [facility] 10-18-2024 Note Patient Education Urology Cystoscopy Cystoscopy [...] including vitamins, herbs, eye drops, creams, and tqun-agf-zgxtvdf medicines. ??? Any problems you or family [...] tells you to take them. ??? Taking mkyo-kuq-pfzbnsf medicines, vitamins, herbs, and supplements. Tests You [...] these instructions at home: Medicines ??? Take toiw-xop-orvfbrs and prescription medicines only as told by [...] (biopsy) during your (more content not included)... [facility] 09-22-2024 Telephone encounter Note Summary: All records are in scanned documents for viewing. Images from the original note were not included. [facility] 09-22-2024 Miscellaneous Notes Summary: All records are in scanned documents for viewing. Images from the original note were not included. documented in this encounter [facility] 09-21-2024 Telephone encounter Note I sent amitiza to [facility]. It's about $40 per month with [employer] if insurance won't cover it. [facility] 09-21-2024 Miscellaneous Notes I sent amitiza to [facility]. It's about $40 per month with [employer] if insurance won't cover it. documented in this encounter [facility] 09-21-2024 Instructions Christi Jones APRN.CNP - 09/21/2024 [...] of your pelvic floor- please call or [employer] message with an update in 1 month. We will see you in the office in 4 months. documented in this encounter [facility] 09-21-2024 History of Presen t illness Narrative Images from the original note were not included. [facility] DATE: 09/21/2024 PATIENT [...] and underwent resection Spring 2023 (Dr Recinos [place]). Was told it is regrowing already, has [...] growth ) RTC 4 months Christi Jones APRN.CATHY [facility] [address] [place] [address] Office: [phone] documented in this encounter [facility] 09-13-2024 Telephone encounter Note Images from the original note were not included. [facility] 09-13-2024 Miscellaneous Notes Images from the original note were not included. documented in this encounter [facility] 03-04-2024 Note [facility] Medical Records Department [address] [place] [address] History Physical Exam 03/04/24 0715 MR#: [id number] Acct: [id number] Name: BRIGITTE HIGH Rep #: [id number] : 1950 73 From: Jadyn Chavez MD PCP: DOUG Brown Status:[facility] Location: [place] [address] History and Physical Date of Admission: 03/04/24 The patient is examined and there are no changes from the H P dated 02/12/2024. The patient presents for right breast lift for symmetry and revision left breast reconstruction. Informed consent is obtained and patient is marked in the preop holding area. Assessment Plan Assessment/Plan (1) Breast asymmetry between capitan grande band breast and reconstructed breast: PLAN: Patient for right breast lift for symmetry (2) Painful periwound skin: PLAN: Patient for revision left breast reconstruction (3) Ptosis of right breast: (4) Status post left breast reconstruction: (5) History of breast cancer in adulthood: 03/04/24 0718 Cosigner Signature (if applicable): CC: DOUG Dougherty; Dr. Jadyn Chavez MD Signed [facility] 01-16-2024 History of Presen t illness Narrative [...] followed by reconstruction -It was ER neg, MA neg, and BWP1ehk neg -She had received post-op chemotherapy but is unable to recall the names of these agents -She did not need radiation therapy -The implant did rupture at one point, and she needed this to be replaced - here for interval followup-moved to [place] -last mammo was done in 12/24/2023 in [place]--breasts are heterogeneously dense which may obscure small [...] for next year -she went on a [employer] sponsored bus tour of [place]--she said she had to share a room [...] fractured patella -while visiting a friend in [place] in January 2023--she saw her friend returning home, and ran through the house intending to open the front gate--she tripped on a landing and fractured her left kneecap--neither her friend nor her friend's wanted to take her to the ED so when she returned to [place] she went to the ER and had xrays done confirming fractured left patella--she worse a knee stabilizer/brace Problem List Items Addressed This Visit None Visit Diagnoses Codes Malignant neoplasm of central portion of right breast in female, estrogen receptor negative (Multi) - Primary C50.111, Z17.1 Relevant Orders Clinic Appointment Request Follow Up; CARLITO HORVATH; [facility] CBC and Auto Differential Comprehensive metabolic [...] Culture 11/04/23 [facility] 10-06-2023 Hospital Discharg e instructions Patient Education [...] provider. Document Revised: 11/22/2021 Document Reviewed: 11/22/2021 [employer] Patient Education 2022 [employer]. Follow Up Care 09/09/2023 14:36:29 With:JORJE FIGUEROA, Star Villavicencio, URL Address: [facility] [address], [place] [address]- [phone] When: Unknown Comments:toro call pt to review updated path [facility] 08-25-2023 Hospital Discharg e instructions Patient Education 08/25/2023 13:11:13 Urinary Tract Infection, Adult, [facility] Urinary Tract Infection, Adult A urinary tract [...] Follow these instructions at home: Medicines Take fajh-ybg-oyqbzyk and prescription medicines only as told by [...] provider. Document Revised: 02/23/2021 Document Reviewed: 02/23/2021 [employer] Patient Education 2022 [employer]. Follow Up Care 05/27/2023 09:36:14 With:JORJE FIGUEROA, Star Villavicencio, URL Address: [facility] [address] , [place] [address]- [phone] When: Unknown Comments:sched cysto/UD [facility] 03-28-2023 Note HNO ID: [id number] Author: Lawrence Medina MD Service: ? Author [...] forward with replacement surgery. Lawrence Medina MD [facility] 03-28-2023 History of Presen t illness Narrative [...] Lawrence Medina MD documented in this encounter [facility] 03-25-2023 Note HNO ID: [id number] Author: Gray Mcdonald RT(R) Service: Radiology Author [...] PERIPHERAL IV DATA: Not applicable SIGNED BY: Gray Mcdonald RT(R) March 25, 2023 1:36 PM [facility] 11-28-2022 Note PROCEDURE: XR KNEE L [...] authenticated by: ILDEFONSO HO Date: 2022-11-28 18:01 [facility] 12-05-2021 History of Presen t illness [...] complaints of dyspnea (Reports SOB on exertion) [facility] Work Phone: 10-29-2021 History of Presen t [...] complaints of dyspnea (Reports SOB on exertion) [id number] Work Phone: 04-20-2021 History of Presen t [...] in March [address] 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 No illicits. [facility] Work Phone: 03-31-2021 History of Presen t [...] experiencing symptoms. No associated symptoms are reported. [employer] [id number] Work Phone: 02-22-2021 History of Presen t illness Narrative BRIGITTE HIGH presents with complaints of joint pain, described as aching On a scale of 1 to 10, the patient rates the pain as 7 (Reports h/o generalized joint pain. Worsening x2 weeks)Associated symptoms include joint stiffness, morning stiffness and fatigue, but no fever and no chills.joint swelling [employer] [id number] Work Phone: 02-20-2021 History of Presen t illness Narrative BRIGITTE HIGH presents with complaints of joint pain, described as aching On a scale of 1 to 10, the patient rates the pain as 7 (Reports h/o generalized joint pain. Worsening x2 weeks)Associated symptoms include joint stiffness, morning stiffness and fatigue, but no fever and no chills.joint swelling [employer]rand [id number] Work Phone: 02-17-2021 History of Presen t [...] Hot shower in AM.low back pain into [facility] Work Phone: 12-31-2020 History of Presen t [...] Hot shower in AM.low back pain into [facility] [employer] Work Phone: 12-28-2020 History of Presen [...] AM.low back pain into butthaving bad constipation [id number] Work Phone: Evaluation + Plan note No data available for this section [facility] Evaluation note Diagnosis Breast pain- Primary Mastodynia Acquired breast deformity Other specified disorders of breast Capsular contracture of breast implant, initial encounter [facility] Diagnosis Onset Date Resolution Status Bronchitis acute [facility] Work Phone: Evaluation note* Diagnosis Malignant neoplasm [...] of colonic polyps [facility] Diagnosis Ischemia of both feet- Primary PAD (peripheral artery disease) Unspecified peripheral vascular disease Arterial embolism (CMS-HCC) Embolism and thrombosis of unspecified artery [facility] Diagnosis Ischemia of both feet- Primary PAD (peripheral artery disease) Unspecified peripheral vascular disease Arterial embolism (CMS-HCC) Embolism and thrombosis of unspecified artery PAD (peripheral artery disease)- Primary Unspecified peripheral vascular disease Ischemia of both feet documented [facility]* Diagnosis Breast cancer screening by mammogram Wellness examination [facility] Diagnosis Malignant neoplasm of central portion of right breast in female, estrogen receptor negative- Primary Iron deficiency Disorders of iron metabolism Dry eyes Unspecified tear film insufficiency Postmenopausal osteoporosis Peptic ulcer disease Peptic ulcer, unspecified site, unspecified as acute or chronic, without mention of hemorrhage, perforation, or obstruction Closed sleeve fracture of left patella, sequela documented in this encounter [facility] Work Phone: History of Present illness [...] has living will. Patient has healthcare POA. [id number] Work Phone: History of Present illness NarrativePatient [...] and would like to become sexually active soon.[facility] Work Phone: History of Present illness NarrativePatient here for recheck of topical estrogen Rx use for severe atrophic vulvovaginitis. Patient stated she had a lot of spotting with using the applicator, she started having hot flashes and headaches and had to stop the topical estrogen. She has no further bleeding since stopping the medication. 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 [facility] Work Phone: History of Present illness Narrative* Hand Swelling * C/o swelling to 1st finger and middle finger x1 week. * C/o joint aching. * Hands felt tight while wearing gloves. * Took OTC Diurex and Aspercreme, voiced mild improvement. [id number] Work Phone: History of Present illness Narrative* [...] living will. Patient has healthcare POA. Pio [id number] Work Phone: History of Present illness Narrative* [...] needed * All questions answered * . [facility] Work Phone[facility] Hospital Discharge instructions No data available for this section [facility] InstructionsNot on filedocumented in this encounter [facility] SystemInstructionsNot on filedocumented in this encounter [facility] SystemProgress note No data available for this section [facility] [place] Summary Purpose Family History No Family History [...] Response Recorded Date/ Time Advance Directives No May 26th, 202 4 9:44am Documents on File Type Date Recorded 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 10/14/2014 Chief Complaint [...] in 80 - due to AUB * 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 * 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 since yesterday [...] section and content) DATE CREATED AUTHOR 01/31/2018 [facility] DATE CREATED AUTHOR AUTHOR'S ORGANIZ ATION 09/16/2018 [facility] DATE CREATED AUTHOR AUTHOR'S ORGANIZ ATION 11/26/2021 [facility] DATE CREATED AUTHOR AUTHOR'S ORGANIZ ATION 12/05/2022 [facility] DATE CREATED AUTHOR AUTHOR'S ORGANIZ ATION 01/21/2023 [facility] DATE CREATED AUTHOR AUTHOR'S ORGANIZ ATION 02/12/2023 [facility] DATE CREATED AUTHOR AUTHOR'S ORGANIZ ATION 02/12/2023 [facility] DATE CREATED AUTHOR AUTHOR'S ORGANIZ ATION 10/17/2023 [facility] DATE CREATED AUTHOR AUTHOR'S ORGANIZ ATION 10/21/2023 [facility] DATE CREATED AUTHOR AUTHOR'S ORGANIZ ATION 06/04/2024 [facility] DATE CREATED AUTHOR AUTHOR'S ORGANIZ ATION 10/19/2024 [facility] DATE CREATED AUTHOR AUTHOR'S ORGANIZ ATION 11/24/2024 [facility] DATE CREATED AUTHOR AUTHOR'S ORGANIZ ATION 01/19/2025 [facility] DATE CREATED AUTHOR AUTHOR'S ORGANIZ ATION 01/28/2025 [facility] Source Comments (unrecognize d section and content) In the event this informatio n is protected by the Federal Confidentiality of Alcohol and Drug Abuse Patient Records regulations: The Federal rules restrict any use of the information to criminally investigate or prosecute any alcohol or drug abuse patient.[facility] the event this information is protected by the Federal Confidentiality of Alcohol and Drug Abuse Patient Records regulations: The Federal rules restrict any use of the information to criminally investigate or prosecute any alcohol or drug abuse patient.[facility] the event this information is protected by the Federal Confidentiality of Alcohol and Drug Abuse Patient Records regulations: The Federal rules restrict any use of the information to criminally investigate or prosecute any alcohol or drug abuse patient.[facility] the event this information is protected by the Federal Confidentiality of Alcohol and Drug Abuse Patient Records regulations: The Federal rules restrict any use of the information to criminally investigate or prosecute any alcohol or drug abuse patient.[facility] the event this information is protected by the Federal Confidentiality of Alcohol and Drug Abuse Patient Records regulations: The Federal rules restrict any use of the information to criminally investigate or prosecute any alcohol or drug abuse patient.[facility] Reason for Visit (unrecogniz ed section and content) Reason Comments New Patient Evaluation Patient states ramires s possible implant leak. Reason Comments Follow-up Reason Comments Consult Constipation Constipation, pain l ower back Reason Onset Date Comments Refill Request 09/21/2024 Reason Comments PAD (peripheral artery disease) ([facility] I73.9] Please sc Specialty Diagnoses / Procedures Referred By Contac t Referred To Contact Vascular Surgery Diagnoses PAD (peripheral artery disease) Kristyn Dougherty, HYDROLOGIC MODELER-SYSTEMS INTEGRATION ANALYST [address] [place] [address] Phone: tel:[phone] fax: [facility] [address] [place] [address] Phone: tel:[phone] fax: Referral ID Status Reason Start Date Expiration Date Visits Requested Visits Authorized [id number] Pending Review Specialty Services Required 09/30/2024 09/30/2025 1 1 Reason Comments Follow up to go over Ct abdo men and pelvis runoff Follow up to go over Ct abdomen and pelv is runoff Reason Comments [facility] Visit Reason Comments Received Outside Medical Records Care Teams (unrecognized sec tion and content) Baker Second Relationship Specialty Start Date End Date Jing Campbell DO [address] [place] [id number] PCP - General 03/28/15 Team Status: Active Member Role Status Dates Kristyn Dougherty , CLAY-C Primary Care Provider Active Team Status: Inactive Member Role Status Dates Star Recinos MD Attending Provider Active St art: September 25, 2023 End: September 25, 2023 Team Status: Inactive Member Role Status Dates Suha Goel APRN Attending Provider Active S tart: December 21, 2023 End: December 21, 2023 Kristyn Dougherty , TABLE MAKER-C Primary Care Provider Active Start: December 21, 2023 End: December 21, 2023 Baker Second Relationship Specialty Start Date End Date Kristyn Dougherty APRN-CNP [address] [place] [id number] PCP - General 12/10/22 [place] [id number] [address] [place] [id number] Consulting Physician Hematology and Oncology 09/16/23 Baker Second Relationship Specialty Start Date End Date Kristyn Dougherty CNP [address] [place] [id number] PCP - General Internal Medicine 09/13/24 Baker Second Relationship Specialty Start Date End Date Kristyn Dougherty CNP [address] [place] [id number] PCP - General Internal Medicine 09/13/24 Baker Second Relationship Specialty Start Date End Date Kristyn Dougherty CNP [address] [place] [address] PCP - General Internal Medicine 09/13/24 Baker Second Relationship Specialty Start Date End Date Kristyn Dougherty APRN-CNP [address] [place] [id number] PCP - General Family Medicine 10/25/24 Baker Second Relationship Specialty Start Date End Date Kristyn Dougherty APRN-CNP [address] [place] [id number] PCP - General 12/10/22 [place] [address] [facility] [address] [place] [address] Consulting Physician Hematology and Oncology 09/16/23 Goals [...] BE BASED ON THE PRIMARY CLINICAL RECORDS. [facility] [employer] provides no warranty or guarantee of the accuracy or completeness of information in this document.
== END 2025-02-11 09:49 | disposition home or self-care (01) ==
LOC: US 09:48
PROVIDERS: PCP Nurse Practitioner Family; Visit Provider Nurse Practitioner Family
DX: E04.1 Nontoxic single thyroid nodule (principal)
CPT/HCPCS: 76536

== ENCOUNTER 2025-06-30 10:21 | Outpatient (OUT) | payer MEDICARE, OTHER, SELFPAY ==
--- OUTSIDE RECORDS SUMMARY | 2025-06-30 10:26 | XMS_ITS | Clinical Summary ---
Author Organization [facility] Address [address] [place] [address] Phone Care Team Providers Care Curtain Drier Name Role Phone Kristyn Zamora APRN-COMMISSARY ASSISTANT Primary Care Provider Ney Parkinson MD Unavailable [phone] Allergies Active AllergyReactionsCriticalityNoted DateCommentsAcetaminophenUnknown 4683VpfcomjWzfywpd27/09/2023 Medications MedicationSigDispense QuantityRefillsLast FilledStart DateEnd DateStatus vit B complex 100 combo no.2 (B-100 Complex) 100 mg tablet extended release Take by mouth.Active sennosides (Senokot) 8.6 mg tablet 8 tablets (68.8 mg) once daily at bedtime.04/04/2021ctive methylPREDNISolone (Medrol Dospak) 4 mg tablets Take by mouth.04/12/2022ctive doxycycline (Vibramycin) 100 mg capsule Take by mouth.10/29/2021ctive cholecalciferol (Vitamin D-3) 50 MCG (1999) tablet Take 1 tablet (50 mcg) by mouth once daily.07/10/2020Active bimatoprost (Latisse) 0.03 % ophthalmic solution Indications:Encounter for general adult medical examination without abnormal findingsAPPLY 1 INCH TO AFFECTED EYE EVERYDAY AT BEDTIME 3 mL ctive Active Problems ProblemNoted DateDiagnosed DateMalignant neoplasm of central portion of right breast in female, estrogen receptor mblapqss74/24/2024Iron hpfuyoonbl84/24/2024 Peptic ulcer wlkivhn1901/19/2024ry eyes01/19/2024losed patellar sleeve fracture of left knee01/19/2024cute hztputvqgt64/09/2023llergic reiwdyys57/09/2023 Chronic kusamzdk06/09/2023trophic xzxbikrubxymel27/09/2023owel habit changes 09/05/2022ataracts, /09/0778Gohbtptmuupw24/09/2023OVID-19009/05/2022 Fall, spzulksbbc74/09/2023Finger nyqecwot82/09/7462Xibwftxqw18/09/2023eographic pllgwx9009/05/20225896Oibjwjzxz73/09/2023olyarthropathy, multiple sites09/05/2022H/O hysterectomy for benign ukxmhjd0309/05/20223420Eupywckmbpi37/09/2023ack pain 09/05/2022Hip pain, wripcfxoh15/09/2023Inflamed seborrheic jzlaeakkn70/09/2023 Wotsqfnz92/09/2023Intercostal pain09/05/2022nee pain, nxgxvjtae61/09/2023Leg /09/2023Memory loss or dhsfrwarzj18/09/2023Neck pain09/05/2022 Overweight (BMI 25.0-29.9)09/05/2022apular jrfskvkey14/09/2023neumonia 09/05/2022ostmenopausal rjlxnsjretdg25/09/2023ostmenopausal vaginal bleeding 09/05/2022remature surgical jwdvzloln29/09/2023ervical radiculopathy, acute 09/05/2022Lumbar disc bywxbkb4709/05/2022Lumbar radiculopathy, acute09/05/2022 Prolapse urethral vkthbe9609/05/2022Spinal stenosis of lumbar zmnusw3809/05/2022 Prolapsed internal jtfgnigscus21/09/2174Dkyonlnx23/09/2023Sleep apnea09/05/2022 Spider bite09/05/2022Urinary assqwvacp68/09/2023Vitamin D zobioonpqd41/09/2023 Weight loss09/05/2022Word finding vuknzmxfcq53/09/2023 Immunizations ImmunizationAdministration DatesNext DueFlu vaccine, quadrivalent, high-dose, preservative free, age 65y+ (FLUZONE)04/12/2022Moderna SARS-CoV-2 Vaccination 05/21/2021,10/27/2020,1Pneumococcal conjugate vaccine, 13-valent (PREVNAR 13)05/08/2016Pneumococcal polysaccharide vaccine, 23-valent, age 2 years and older (PNEUMOVAX 23)05/10/2019,06/21/2014Zoster, live06/21/2014 Social History Tobacco UseTypesPacks/DayYears UsedDateSmoking Tobacco: Never Assessed Tobacco Cessation:Counseling Given: No CommentsUnknownSex and Gender InformationValueDate RecordedSex Assigned at BirthNot on fileLegal SafCviqrn02/26/2022 2:46 PM ESTGender IdentityNot on fileSexual OrientationNot on file Last Filed Vital Signs Vital SignReadingTime TakenCommentsBlood Yzcdleyn544/8301/14/2025 9:58 AM EDT Gpzsb222001/14/2025 9:58 AM ATPRvdmilhkret64.4 ??C (97.5 ??F)01/14/2025 9:58 AM EDTRespiratory Cwdh571701/14/2025 9:58 AM EDTOxygen Mwtcraoykk88%01/14/2025 9:58 AM EDTInhaled Oxygen Concentration--Qshxem43.9 kg (154 lb 1.6 oz)01/14/2025 9:58 AM IEIYsvgmc442.1 cm (5' 5 )12/10/2022 4:07 PM EDTBody Mass Index25.64012/10/2022 4:07 PM EDT Plan of Treatment DateTypeDepartmentCare Team (Latest Contact Info)Vennsmqrero37/19/2026 10:00 AM EDTOffice Visit [facility] [address] [place] [phone] [place] [address] [place] [address] Health MaintenanceDue DateLast DoneCommentsCT Myrjmgwvznej08/13/1950FIT-DNA (Cologuard)1949FIT11/07/19498657Wkyvbdgybgbqf93/13/1950Hepatitis C Screening 11/08/1967DTaP/Tdap/Td Vaccines (1 - Tdap)11/08/1971MMR Vaccines (1 of 1 - Standard series)07/19/2014Medicare Annual Wellness Visit (AWV)10/07/2024 10/07/2023, 04/29/2022, 05/08/2021, Additional history existsInfluenza Vaccine (#1)5004/15/2024, 05/27/2023, 10/01/2022, Additional history exists COVID-19 Vaccine ( season), 10/27/2020, 09/22/2020one Density Scan6012/26/2023Lipid Panel/09/2021, 04/04/2021, 02/11/2020, Additional history mybagrOjvhpumsura82/20/2032 05/16/2022, 05/16/2022, 04/01/2017Colorectal Cancer Jmnnqqnou18/20/2032Irritable Bowel PnkqmlguVuakdippxfuv06/20/2022, 04/01/2017Pneumococcal VaccineCompleted 09/05/2022, 05/10/2019, 05/08/2016, Additional history existsRSV High Risk: (Elderly (60+) or Population)Pixuaqjdd35/31/2023Zoster Vaccines Dqmvmwuia99/19/2024, 10/01/2023, 06/21/20145016YoyyxwxfmOwncfyqazhqh45/30/2025, 12/24/2024, 12/24/2023, Additional history existsHIB VaccinesAged OutNo longer eligible based on patient's age to complete this topicHPV VaccinesAged OutNo longer eligible based on patient's age to complete this topicHepatitis A VaccinesAged OutNo longer eligible based on patient's age to complete this topic Hepatitis B VaccinesAged OutNo longer eligible based on patient's age to complete this topicIPV VaccinesAged OutNo longer eligible based on patient's age to complete this topicMeningococcal VaccineAged OutNo longer eligible based on patient's age to complete this topicRotavirus VaccinesAged OutNo longer eligible based on patient's age to complete this topic Procedures Procedure NamePriorityDate/TimeAssociated HuruprlzcKbyengbwIGZUCYJUEQN68/20/2022 LIPID OLDYLFtqwnkf79/03/2022 11:49 AM EDT DIGITAL MAMM YWUHGQCLFHokikvj19/26/2022 12:37 PM EDT Encounter for general adult medical examination without abnormal findings from Last 3 Months or Most Recently Relevant to Health Maintenance Results * COLONOSCOPY (05/16/2022)Anatomical RegionLateralityModalityEndoscopy Narrative 05/16/2022 Ordered by an unspecified provider. Authorizing ProviderResult TypeResult StatusOnbase ConversionENDOSCOPY PROCEDURE ORDERABLESFinal Result * Lipid Panel (04/29/2022 11:49 AM EDT)ComponentValueRef RangeTest Method Analysis TimePerformed AtPathologist CsmrhzmvzLaisbhsycih3236 - 199 mg/dL [facility]: . ?AGE ?DESIRABLE ?? BORDERLINE HIGH ?? HIGH 0-19 Y 0 - 169 170 - 199 >/= 200 20-24 Y 0 - 189 190 - 224 >/= 225 >24 Y 0 - 199 200 - 239 >/= 240 All ranges are based on fasting samples. Specific therapeutic targets will vary based on patient-specific cardiac risk. . Pediatric guidelines reference:Pediatrics 2011, 128(S5). Adult guidelines reference: NCEP ATPIII Guidelines, ??LUDIVINA 2001, 258:2486-97 . Venipuncture immediately after or during the administration of Metamizole may lead to falsely low results. Testing should be performed immediately prior to Metamizole dosing. HDL89.0mg/dLLE[facility] LABComment: . ?AGE ?VERY LOW ?? LOW ? NORMAL ?HIGH ?? 0-19 Y < 35 < 40 40-45 ---- 20-24 Y ---- < 40 >45 ---- >24 Y ---- < 40 40-60 >60 . Cholesterol/HDL Ratio2.2ECANY[facility] LABComment: REF VALUES DESIRABLE < 3.4 HIGH RISK > 5.0 YPQ348 - 99 mg/dLLE[facility] LABComment: . ? NEAR ?BORD ?AGE ?DESIRABLE ??OPTIMAL ?HIGH ? HIGH ? VERY HIGH 0-19 Y 0 - 109 --- 110-129 >/= 130 ---- 20-24 Y 0 - 119 --- 120-159 >/= 160 ---- >24 Y 0 - 99 100-129 130-159 160-189 >/=190 . AQPE073 - 40 mg/dL[facility] THWKczvubreheokf7192 - 149 mg/dLLE[facility] LABComment: . ?AGE ?DESIRABLE ?? BORDERLINE HIGH ?? HIGH ? VERY HIGH 0 D-90 D ?19 - 174 ? ---- ? ---- ?---- 91 D- 9 Y 0 - 74 [...] be performed immediately prior to Metamizole dosing. Specimen (Source)Anatomical Location / LateralityCollection Method / Volume Collection TimeReceived Time04/29/2022 11:49 AM EDT1 9:29 PM EDT Narrative Authorizing ProviderResult TypeResult StatusMicverena MEDRANO BLOOD ORDERABLESFinal ResultPerforming OrganizationAddressCity/State/RUST CodePhone Number [facility] [address] [place] [address] * DIGITAL MAMM SCREENING (11/20/2021 12:37 PM EDT)Anatomical RegionLaterality ModalityMammographySpecimen (Source)Anatomical Location / LateralityCollection Method / VolumeCollection TimeReceived Time Narrative 11/20/2021 12:45 PM EDT Patient Name: BRIGITTE HIGH STUDY: DIGITAL MAMM SCREENING W/ CLAUDIA; ??11/20/2021 12:37 pm ACCESSION NUMBER(S): [id number] ORDERING CLINICIAN: JING MENDOZA INDICATION: Right breast screening. Previous left mastectomy. COMPARISON: 07/15/2020, 12/30/2018. FINDINGS: 2D and tomosynthesis images of the right breast were reviewed at 1 mm slice thickness. The breast tissue is heterogeneously dense, which may obscure small masses. ?? No new suspicious masses or calcifications are identified. IMPRESSION: No mammographic evidence of malignancy. BI-RADS CATEGORY: Category: 1 - Negative. Recommendation: 1 Year Screening. For any future breast imaging appointments, please call [phone] ([phone]). Procedure Note Rick Castro MD - 09/09/2022 Patient Name: BRIGITTE HIGH STUDY: DIGITAL MAMM SCREENING W/ CLAUDIA; 11/20/2021 12:37 pm ACCESSION NUMBER(S): [id number] ORDERING CLINICIAN: JING MENDOZA INDICATION: Right breast screening. Previous left mastectomy. [...] any future breast imaging appointments, please call [phone] ([phone]). Authorizing ProviderResult TypeResult StatusMicverena Mendoza DOIMG BI PROCEDURES Final Result from Last 3 Months or Most Recently Relevant to Health Maintenance Insurance Advance Directives For more information, please contact: [phone] (Available ) TypeDate RecordedPatient RepresentativeExplanationAdvance Directives and Living Will3/20/2015Advance Directives and Living Will10/14/2014Living Will10/14/2014 Care Teams Team MemberRelationshipSpecialtyStart DateEnd Date Kristyn Zamora, GLOVE WRAPPER-COMMISSARY ASSISTANT [address] [place] [address] PCP - General12/10/22 [place] [address] [facility] [address] [place] [address] Consulting PhysicianHematology and Oncology09/16/23
--- OUTSIDE RECORDS SUMMARY | 2025-06-30 10:26 | XMS_ITS | Patient Health Record ---
Author Organization [facility] Address [address] [place] [address] Care Team Providers Care Small Engine Specialist Name Role Phone Dr. Fred Recinos Primary Care Provider [phone] Allergies Allergen (clinical drug ingredient) Drug/Non Drug Allergy documented on EMR Reaction Allergy Type Onset Date Status MoldUnknownAllergyActiveDust MitesUnknownAllergyActiveCat danderCat Dander UnknownAllergyActive Results Component Value Reference Range Notes Ultrasound : Legs, bilateral Reviewed date:01/17/2025 01:10:16 PM Interpretation:No DVT, Distal left small saphenous vein reflux associated with multiple log deck tender veins, Reflux in varicosities Performing Lab: Notes/Report: No DVT, Distal left small saphenous vein reflux associated with multiple log deck tender veins, Reflux in varicosities Reason For Referral No Information Medications Medication SIG (Take, Route, Frequency, Duration) Notes Start Date End Date Status Bimatoprost 0.03 % APPLY 1 INCH TO AFFE CTED EYE EVERYDAY AT BEDTIME External for 30 ActiveIbuprofen 600 MGOral for 25ActivemethylPREDNISolone 4 MGTAKE 6 TABLETS ON DAY 1 DIRECTED ON PACKAGE AND DECREASE BY 1 TAB EACH DAY FOR A TOTAL OF 6 DAYSOral for 6Not-TakingBaby AspirinActiveGaviLyte-G 236 GMOral for 1Not-Taking Prescription grade compression stockings 20 - 30mmHgas directed thigh high Daily ActiveCefdinir 300 MGOral for 10Not-TakingAzithromycin 250 MGOral for 5 Not-TakingDiclofenac Sodium 75 MGTAKE 1 TABLET BY MOUTH TWICE A DAY Oral for 30 Not-TakingClopidogrel Bisulfate 75 MGTAKE 1 TABLET (75 MG TOTAL) BY MOUTH IN THE MORNING Oral for 60 DaysNot-TakingCephalexin 500 MGOral for 10Not-Taking Phentermine HCl 37.5 MGTAKE ONE TABLET BY MOUTH DAILY IN THE MORNING BEFORE BREAKFAST Oral for 30 DaysNot-TakingDoxycycline Hyclate 100 MGTAKE 1 CAPSULE BY MOUTH TWICE DAILY WITH FOOD AND WATER. DO NOT LAY FLAT FOR 1 HOUR AFTER TAKING Oral for 30Not-TakingMupirocin 2 %APPLY 1 APPLICATION TOPICALLY TWICE A DAY FOR 5 DAYS External for 22 DaysNot-TakingRosuvastatin Calcium 5 MGTAKE 1 TABLET (5 MG TOTAL) BY MOUTH IN THE MORNING Oral for 30 DaysActiveCephalexin 500 MGTAKE 2 CAPSULES BY MOUTH TWICE A DAY FOR 10 DAYS Oral for 10 DaysNot-TakingIron 28 MG1 tablet Orally Once a day for 30 day(s)09/05/2022ctiveEstradiol 0.1 MG/GMAPPLY PEA SIZED AMOUNT TO VULVA TWICE DAILY FOR 2 WEEKS THEN TWICE A WEEK FOR MAINTENANCE Vaginal for 90Not-TakingMultivitamin -1 tablet Orally Once a day for 30 day(s)09/05/2022ctiveSpironolactone 50 MGOral for 90Not-TakingClindamycin Phosphate 1 %APPLY TO FACE EVERY DAY External for 120Not-Taking Immunizations Vaccine Route Administration Date Status Comme nts Influenza, seasonal, injecta ble, preservative free, 3 yrs and above Unknown 09/05/2022 Administered Pneumococcal polysaccharide XXR65Wrdzosu56/09/2023dministeredInfluenza, seasonal, injectable (split), for 3 yrs and mdHauojng48/07/2023dministered Social History Tobacco Use: Social History Observation Description Date Details (start date - stop date) Never Smoker NA - NA AUDIT-C (Standard) Question Answer Notes Did you have a drink containing alcohol in the p ast year? 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 [place] [address] 01/14/2025 Dvora [facility] Varicose veins of right lower extremity with inflammation I83.11 and Varicose veins of left lower extremity with inflammation I83.12 [facility] [address] [place] [address] 03/11/2025 Dvora [facility] Varicose veins of right lower extremity with inflammation I83.11 and Varicose veins of left lower extremity with inflammation I83.12 [facility] [address] [place] [address] 01/14/2025 Dvora [facility] Varicose veins of right lower extremity with inflammation I83.11 and Varicose veins of left lower extremity with inflammation I83.12 [facility] [address] [place] [address] 01/27/2025 Dvora [facility]orje Varicose veins of right lower extremity with inflammation I83.11 and Varicose veins of left lower extremity with inflammation I83.12 [facility] [address] [place] [address] 02/10/2025 Dvora [facility] Varicose veins of right lower extremity with inflammation I83.11 and Varicose veins of left lower extremity with inflammation I83.12 [facility] [address] [place] [address] 02/24/2025 Fred Recinos Varicose veins of right lower extremity with inflammation I83.11 and Varicose veins of left lower extremity with inflammation I83.12 [facility] [address] [place] [address] 02/03/2025 Fred Recinos Assessments Encounter Date Diagnosis (ICD Code) Assessment Notes Treatment Notes Treatment Clinical Notes Section Notes 01/14/2025 Varicose veins of ri ght lower extremity with inflammation (ICD-10 - I83.11) Ms. High was made aware that she has significant reflux, and that she is a surgical candidate jen ambulatory phlebectomy and chemical ablation with Varithena and sclerotherapy. The nature of an ambulatory phlebectomy and chemical ablation of her symptomatic varicosities with Varithena and scler otherapy and the risks and benefits of the [...] the surgical plan and work up. The patientwas made aware that her existing hyperpigmentation is a permanent skin change that will not resolvewith surgical intervention.03/11/2025Varicose veins of right lower extremity with inflammation (ICD-10 - I83.11)Ms. High verbalized understanding that she will not be able to proceed with sclerotherapy today due to her scheduled trip in three days. She verbalized understanding to wear her thigh high prescription grade compression stockings while traveling in order to minimize the potential risk for developing a deep vein thrombosis. She will also stay well hydrated and ambulate as often as possible whileon the plane. The plan is for Ms. High to return to the office for additional sessions of sclerotherapy once she is done traveling.This patient was evaluated and seen by Ebonie Davis, CATHY, [facility], and I have reviewed the findings and concur with the treatment plan.01/14/2025Varicose veins of right lower extremity with inflammation (ICD-10 - I83.11)01/27/2025Varicose veins of right lower extremity with inflammation (ICD-10 - I83.11)02/10/2025Varicose veins of right lower extremity with inflammation (ICD-10 - I83.11)02/24/2025Varicose veins of right lower extremity with inflammation (ICD-10 - I83.11)01/14/2025Varicose veins of left lower extremity with inflammation (ICD-10 - I83.12)03/11/2025Varicose veins of left lower extremity with inflammation (ICD-10 - I83.12)01/14/2025Varicose veins of left lower extremity with inflammation (ICD-10 - I83.12)01/27/2025 Varicose veins of left lower extremity with inflammation (ICD-10 - I83.12) 02/10/2025Varicose veins of left lower extremity with inflammation (ICD-10 - I83.12)02/24/2025Varicose veins of left lower extremity with inflammation (ICD- 10 - I83.12) Plan Of Treatment No Information Insurance Providers Payer Name Payer Address Payer Phone Subscriber Number Group Number Insured Name Patient Relationship to Insured Coverage Start Date Coverage [place] [address] [place] [address] [id number] High - patient is the insuredMedical [facility] RehabilitationPO [address] [place] [id number], RosemarieSelf - patient is the insured Medical (General) History Medical History History ICD Code Arthritis Chronic AcneEye Lash growthVaricose veinsLT breast cancer s/p reconstruction and chemotherapyUrethral caruncleSurgical History Surgery Date(Month/Year) Phlebetomy 01/2025 sclerotherapy right breast reductionleft patella stabilization with bracecataract removal mastectomyosteophytectomybi lateral carpal tunneltonsillectomyhysterectomy discectomyphlebectomyHospitalization History Reason Date(Month/Year) mastectomy discectomynatural child birthhysterectomy
--- OUTSIDE RECORDS SUMMARY | 2025-06-30 10:26 | XMS_ITS | Clinical Summary ---
Author Organization [facility] Address [address], [address] [place] [address] Care Team Providers Care Adult Education Instructor Name Role Phone Unavailable Primary Care Provider Unavailabl e Allergies Active AllergyReactionsCriticalityNoted AgljOazhvsvrEmsxgdnmzxxak25/24/2013 Medications MedicationSigDispense QuantityRefillsLast FilledStart DateEnd DateStatus ibuprofen (ADVIL;MOTRIN) 200 MG tablet Take 600 mg by mouth every 6 hours as needed for PainActive Active Problems ProblemNoted DateDiagnosed DateSpinal stenosis of lumbar region without neurogenic /26/2018Left sided /26/2018 Social History Tobacco UseTypesPacks/DayYears UsedDateSmoking Tobacco: FormerCigarettesQuit: 11/20/2006Smokeless Tobacco: NeverCommentsUnknownSex and Gender InformationValueDate RecordedSex Assigned at BirthNot on fileLegal SexFemale 09/08/2012 4:53 AM ESTGender IdentityNot on fileSexual OrientationNot on file Last Filed Vital Signs Vital SignReadingTime TakenCommentsBlood Pressure--Pulse--Usrnhefpatv92.5 ??C (97.7 ??F)11/20/2017 2:34 PM EDTRespiratory Rate--Oxygen Saturation--Inhaled Oxygen Concentration--Phzbbl14.3 kg (177 lb)11/20/2017 2:34 PM LRQCvkegl280.1 cm (5' 5 )11/20/2017 2:34 PM EDTBody Mass Index29.45011/20/2017 2:34 PM EDT Plan of Treatment Not on file Insurance
--- OUTSIDE RECORDS SUMMARY | 2025-06-30 10:26 | XMS_ITS | Clinical Summary ---
Author Organization [facility] Address [address] [place] [address] Care Team Providers Care Venereal Disease Control Head Name Role Phone Unavailable Primary Care Provider Unavailabl e Allergies Active AllergyReactionsCriticalityNoted DateCommentsAcetaminophenUnknown, IenvnklsZdhfff96/24/2013 Other Reaction(s): EARS RING Makes my ears ring Other Reaction(s): EARS RING, Other (See Comments) Makes my ears ring Other Reaction(s): EARS RING ??Makes my ears ring BmuunczZzgnuay22/09/2023 Other Reaction(s): Other (See Comments) Medications MedicationSigDispense QuantityRefillsLast FilledStart DateEnd DateStatus B Lssnrwo-Fgcjbh-CQ (GNP B-100 Complex) tablet controlled-release Take by mouthActive bimatoprost (Latisse) 0.03 % ophthalmic solution APPLY 1 INCH TO AFFECTED EYE EVERYDAY AT BEDTIMEActive COVID-19 mRNA booster vaccine, Moderna, (Moderna COVID-19 Vac, Booster,) 50 MCG/0.5ML suspension dark blue cap injection Inject into the shoulder, thigh, or buttocksActive diclofenac (Voltaren) 75 MG EC tablet Take by mouthActive doxycycline (Vibramycin) 100 MG capsule Active ibuprofen 200 MG tablet Take 600 mg by mouth every 6 (six) hours if neededActive ibuprofen 600 MG tablet TAKE 1 TABLET BY MOUTH EVERY 6 TO 8 HOURS YNHIBH8407/20/2023ctive Myrbetriq 50 MG 24 hr tablet Take 50 mg by mouth Daily09/08/2023ctive multivitamin (Theragran) tablet Active omeprazole (PriLOSEC) [address] capsule Take 40 mg by mouth Daily03/14/2023ctive Turmeric (QC Tumeric Complex) 500 MG capsule Take by mouthActive Active Problems ProblemNoted DateDiagnosed DateHigh risk for fracture due to osteoporosis by DEXA scan01/26/2024 Social History Tobacco UseTypesPacks/DayYears UsedDateSmoking Tobacco: Never Assessed CommentsNoSex and Gender InformationValueDate RecordedSex Assigned at BirthNot on fileLegal YhsWllnoo65/28/2024 12:54 PM EDTGender IdentityNot on fileSexual OrientationNot on file Last Filed Vital Signs Vital SignReadingTime TakenCommentsBlood Hkdgdqcf197/66011/23/2024 2:10 PM EDT Pulse--Temperature--Respiratory Rate--Oxygen Saturation--Inhaled Oxygen Concentration--Lpcezr38.3 kg (163 lb 12.8 oz)11/23/2024 2:10 PM EDTHeight--Body Mass Index-- Plan of Treatment Health MaintenanceDue DateLast DoneCommentsCT Ixgocveslswu25/13/1951FIT-DNA 1950FIT1950FOBT11/07/19501916Yimuyiqysvvar53/13/1951COVID-19 Vaccine ( season)51, 10/27/2020, 09/22/2020Influenza Vaccine (#1)5004/15/2024, 05/27/2023, 10/01/2022, Additional history exists Audbeowpsox19/20/527194, 05/16/2022, 04/01/2017Colorectal Cancer Bagazqsjj56/20/2032Pneumococcal Vaccine: 65+ LwdoxSxfyfxunq89/09/2023, 05/10/2019, 05/08/2016, Additional history existsMammogramDiscontinued 12/24/2024, 12/24/2023, 11/20/2021, Additional history exists Procedures Procedure NamePriorityDate/TimeAssociated DiagnosisCommentsBI MAMMOGRAM SCREENING TOMOSYNTHESIS RIGHT12/24/2024 10:09 AM EDT from Last 3 Months or Most Recently Relevant to Health Maintenance Results * Right screening mammogram with tomosynthesis (12/24/2024 10:09 AM EDT) Anatomical RegionLateralityModalityBreastRightMammographySpecimen (Source) Anatomical Location / LateralityCollection Method / VolumeCollection Time Received Time12/24/2024 10:09 AM EDT Narrative 12/24/2024 10:09 AM EDT [facility] ?[address] ? [place] [address] ? Mammography Report ? Signed ? Patient: AYLINEN,BRIGITTE ?MR#: [id number] ?? : 1950 ?Acct:[id number] ?? Age/Sex: 74 / F ?ADM Date: 12/24/24 ?? Loc: MAMMO ? Attending Dr: Tania Morales D.O. ? Ordering Physician: Tania Morales D.O. ?Results: ? Date of Service: 12/24/24 ?Follow Up: ? Procedure(s): MM tomosynthesis screening RT ?? Accession Number(s): [id number] ? cc: BART DOUGHERTY ; Tania Morales D.O. ? Patient Name: ? BRIGITTE HIGH ? MR#: [id number] ? : 1950 ? Exam Date: 12/24/2024 ?? Ordering Doctor: DR TANIA MORALES . ? RADIOLOGY REPORT ? PROCEDURE: ? MM TOMOSYNTHESIS SCREENING RT ? COMPARISON: ? MM TOMOSYNTHESIS SCREENING RT, 12/24/2023. ??MG MAMM DX 3D RT ?? CAD, 12/18/2022. ??MG MAMM SCREEN RT 3D CAD, 11/20/2021. ??MG MAMM SCREEN RT 3D ?? CAD, 07/15/2020. ? INDICATIONS: ? Screening ? Calculator Name ? NCI Breast Cancer Risk Assessment Tool ?? 5 Year Breast Cancer Risk ? n/a% ?? Lifetime Breast Cancer Risk ? n/a% ?? Personal Breast Cancer ?Yes, 48, mastectomy left ?? Personal Ovarian Cancer ? No ?? Treatments ? None ?? Family Cancers ? Sister with colon cancer at age 54. ? LOCATION: ? [facility] ? BREAST COMPOSITION: ? The breasts are heterogeneously dense,which may ?? obscure small masses. ? FINDINGS: ? DIAGNOSTIC CATEGORY 2--BENIGN FINDING: ? RECOMMENDATIONS: ? ROUTINE MAMMOGRAM AND CLINICAL EVALUATION IN 12 MONTHS. ? PLEASE NOTE: ??A NORMAL MAMMOGRAM DOES NOT EXCLUDE THE POSSIBILITY OF BREAST ?? CANCER. ??A CLINICALLY SUSPICIOUS PALPABLE LUMP SHOULD BE BIOPSIED. ? RIGHT BREAST: ??No significant suspicious finding. ??Benign-appearing ?? calcifications are present. ? Dictated by: Raul Suarez MD on 12/24/2024 at 09:59 ? Approved by: Raul Suarez MD on 12/24/2024 at 10:08 ? Dictated By: ?Raul Suarez M.D. ? Signed By: ?12/24/24 1009 ? DD/ 1009 ? TD/TT: ? Supplier Manager: Procedure Note Radiology, Radiologist, - 12/24/2024 [place] [address] Mammography Report Signed Patient: FABIAN HIGH#: [id number] : 1950Acct:[id number] Age/Sex: 74 / FADM Date: 12/24/24 Loc: MAMMO Attending Dr: Tania Morales D.O. Ordering Physician: Tania Morales D.O.Results: Date of Service: 12/24/24Follow Up: Procedure(s): MM tomosynthesis screening RT Accession Number(s): [id number] cc: BART DOUGHERTY ; Tania Morales D.O. Patient Name: BRIGITTE HIGH MR#: [id number] : 1950 Exam Date: 12/24/2024 Ordering Doctor: [...] colon cancer at age 53. LOCATION: [facility] BREAST COMPOSITION: The breasts are heterogeneously dense,which [...] 10:08 Dictated By: Raul Suarez M.D. Signed By:12/24/24 1009 DD/ 1009 TD/TT: Supplier Manager: Authorizing ProviderResult TypeResult StatusCorey Carmen DOIMG BI PROCEDURESFinal Result from Last 3 Months or Most Recently Relevant to Health Maintenance Insurance
--- OUTSIDE RECORDS SUMMARY | 2025-06-30 10:26 | XMS_ITS | Clinical Summary ---
Author Organization [email or web address] Address [id number] [address] [place] [address] Care Team Providers Care Field Hockey Coach Name Role Phone Kristyn Zamora Cynthia FOREST RANGER-RN LACTATION CONSULTANT Primary Care Provider Allergies Active AllergyReactionsCriticalityNoted DateCommentsAcetaminophenOther (See Comments),FowhlhwqJbvfjn77/24/2013 Makes my ears ring Other Reaction(s): EARS RING Makes my ears ring CodeineOther (See Comments)09/05/2022 Medications MedicationSigDispense QuantityRefillsLast FilledStart DateEnd DateStatus ibuprofen (MOTRIN) 600 mg tablet Take 1 tablet (600 mg total) by mouth every 8 (eight) hours as needed.Active oaptvptq-tdj-boesl acid-lutein 0.4-250 mg-mcg tablet Take 1 tablet by mouth in the morning.Active TURMERIC ORAL Take 1 tablet by mouth in the morning.Active calcium carbonate (OS-JAMESON) 600 mg elemental (1,500 mg) tablet Take 1 tablet (600 mg total) by mouth in the morning and 1 tablet (600 mg total) in the evening. Take with meals.Active hyhbgu-tjlvcill-tpwyophkja dis (NEURIVA DE-STRESS) 100-200-10 mg capsule Take 1 tablet by mouth in the morning.Active clopidogreL (PLAVIX) 75 mg tablet Take 1 tablet (75 mg total) by mouth in the morning. 60 tablet 5Active rosuvastatin (CRESTOR) 5 mg tablet TAKE 1 TABLET (5 MG TOTAL) BY MOUTH IN THE MORNING 30 tablet 5Active Active Problems ProblemNoted DateDiagnosed DatePAD (peripheral artery disease)10/21/2024 Assessment & Plan (11/18/2024 9:10 AM EDT): Continue aspirin and statin. Continue Crestor 5 mg and aspirin 81 mg.Risk factors modification to control blood pressure. Continue walking Ischemia of both feet10/21/2024 Assessment & Plan (11/18/2024 9:10 AM EDT): [...] aneurysm. The plan is to start aspirin Plavixand Statin. We will alsoget a CTA abdomen pelvis with runoff. Family History RelationNameStatusCommentsFatherStroke, femoral artery surgeriesMotherblood clots, CABGx4 Social History Tobacco UseTypesPacks/DayYears UsedDateSmoking Tobacco: FormerCigarettes Smokeless Tobacco: Never Tobacco Cessation:Counseling Given: Not Answered Comments:Patient smoked 1PPD [id number] Hunger ScreeningAnswerDate RecordedWithin the past 12 months we worried whether our food would run out before we got money to buy more.Never True11/18/2024 Within the past 12 months the food we bought just didn't last and we didn't have money to get more.Never True11/18/2024CommentsUnknownSex and Gender InformationValueDate RecordedSex Assigned at BirthNot on fileLegal SexFemale 09/30/2024 3:47 PM ESTGender IdentityNot on fileSexual OrientationNot on file Last Filed Vital Signs Vital SignReadingTime TakenCommentsBlood Bpradobd758/8804 8:43 AM EDT Lpdcb016611/18/2024 8:43 AM TSIXshxqyssdds31.2 ??C (97.1 ??F)11/18/2024 8:43 AM EDTRespiratory Rate--Oxygen Ouyyxvqava48%11/18/2024 8:43 AM EDTInhaled Oxygen Concentration--Ypukip97.6 kg (160 lb)11/18/2024 8:43 AM UPXShuyrz551.1 cm (5' 5 )11/18/2024 8:43 AM EDTBody Mass Index26.63011/18/2024 8:43 AM EDT Plan of Treatment Health MaintenanceDue DateLast DoneCommentsDepression Kzyxlyzxz88/13/1962 DTaP,Tdap and Td Vaccines (1 - Tdap)1968Fall Risk Afjacfmsl29/13/2015 Zoster (Shingles) Vaccine (3 of 3)/, 10/01/2023, 06/21/2014 COVID-19 Vaccine (4 - season)/, 10/27/2020, 09/22/2020Influenza Wxpfvxc73/, 05/27/2023, 10/01/2022, Additional history existsTobacco Xiywwnwiy51RSV ( or age 60+ yrs)Kuxkzwexd25/31/2023 Medical Devices Not on file Insurance Care Teams Team MemberRelationshipSpecialtyStart DateEnd Date Kristyn Zamora, FOREST RANGER-RN LACTATION CONSULTANT [address] [place] [phone] PCP - GeneralFamely Medicine10/25/24
--- OUTSIDE RECORDS SUMMARY | 2025-06-30 10:26 | XMS_ITS | Clinical Summary ---
Author Organization [facility] Address [address] [place] [address] Care Team Providers Care Test Inspection Engineer Name Role Phone Kristyn Zamora CNP Primary Care Provider + Allergies Active AllergyReactionsCriticalityNoted DateCommentsAcetaminophenOther: See Tdhgskzi98/03/2014 Makes my ears ring Medications MedicationSigDispense QuantityRefillsLast FilledStart DateEnd DateStatus calcium carbonate 600 mg-cholecalciferol 200 units (CALCIUM 600 + D,3,) 600 mg(1,500mg) -200 unit tab Take 1 tablet by mouth once daily.03/28/2015ctive multivitamin (DAILY MULTIPLE) tablet Take 1 tablet by mouth once daily.ctive TURMERIC ORAL Take by mouth.Active BIOTIN ORAL Take by mouth.Active ibuprofen (MOTRIN) 600 mg tablet Take 600 mg by mouth.Active plecanatide (TRULANCE) 3 mg tablet Take 1 tablet by mouth once daily. 30 tablet 5Active lubiprostone (AMITIZA) 24 mcg capsule Take 1 capsule by mouth two times a day with meals. 60 capsule 5Active Active Problems ProblemNoted DateDiagnosed PxhrNxnnttfgqahyg19/15/2015 Family History Medical HistoryRelationCommentsCataractFatherMacular DegenFatherCataractMother RelationStatusCommentsFatherDeceasedMotherDeceased Social History Tobacco UseTypesPacks/DayYears UsedDateSmoking Tobacco: Former Comments:quit 7 years ago Alcohol UseStandard Drinks/WeekCommentsYes0 (1 standard drink = 0.6 oz pure alcohol)socialArea Deprivation IndexAnswerDate RecordedNational Score (1-100), lower number is lower sncb754702/24/2023State Score (1-10), lower number is lower ovkj4153Data from: https://www.neighborhoodatlas.medicine.[facility].edu/. Last address used for [address] [place], [place] [address]CommentsNoSex and Gender InformationValueDate RecordedSex Assigned at BirthNot on fileLegal Sex Ypveln4506/28/2012 8:56 AM ESTGender IdentityNot on fileSexual OrientationNot on fileOccupationIndustryJob Start DateJob End DateSECRETARYNot on fileNot on file Not on fileretired in 2013Not on fileNot on fileNot on file Last Filed Vital Signs Vital SignReadingTime TakenCommentsBlood Wqwodgnb446/8609/21/2024 10:35 AM EST Ljkns768209/21/2024 10:35 AM FYEIhqbwzblodr59.4 ??C (97.6 ??F)05/30/2014 11:01 AM ESTRespiratory Dypd847004/25/2015 3:31 PM EDTOxygen Fchbcimdwj95%04/25/2015 3:31 PM EDTInhaled Oxygen Concentration--Ybrpxd43.6 kg (164 lb 6.4 oz)09/21/2024 10:35 AM GJHKndyjs535.1 cm (5' 5 )09/21/2024 10:35 AM ESTBody Mass Index27.36 09/21/2024 10:35 AM EST Plan of Treatment Health MaintenanceDue DateLast DoneCommentsAnxiety Vkstafpir86/13/1968Depression Lgapqsqtn00/13/1968Hepatitis C Astmknydd21/13/1968CT Yikqrzfrkgpt57/13/1995 Cologuard (FIT-DNA)1994Fecal Occult Blood11/07/19946682Cgzzpvyvufrvj15/13/1995 Medicare Annual Wellness Visit10/26/2014Bone Density Mqhzabqbd98/13/2015 DTaP,Tdap,Td Vaccine (2 - Td or Tdap)Colonoscopy05/16/2023 05/16/2022, 05/16/2022, 04/01/2017, Additional history existsColorectal Cancer Meckcacsq72/20/2023Shingrix Vaccine (3 of 3)409/, 10/01/2023, 06/21/2014dvance Directive Cbnxlmimba53/01/2025ovid-19 Vaccine ( season)/, 10/27/2020, 09/22/2020Influenza Vaccine (#1) /, 05/27/2023, 10/01/2022, Additional history existsDiabetes Ahpghnpsi28/09/2021, 04/12/2022, 01/18/2022, Additional history exists Lipid Ixeyfhlvi70/09/2021, 04/04/2021, 02/11/2020, Additional history existsPneumococcal Vaccine: 50+Wwculpnbd11/09/2023, 05/10/2019, 05/08/2016, Additional history existsRSV NvibvakTcfpahvao58/31/2023Mammogram Screening Nhtpllmxekhu72/29/2024, 12/24/2023 Medical Devices ImplantedTypeAreaManufacturerDevice IdentifierShelf Expiration DateModel / Serial / LotLens Iol +15.50 Acrsf 13mm 6mm - [id number] [facility]planted:[facility]Intraocular LensRight: Eye [employer] JVMZJAKH09/31/[id number] 15.5 / [id number] / Lens Iol +14 Nidia 0 D Bcnvx 13 - [id number] Implanted:Qty: 1 [facility]25/2015 [facility]Intra[facility] LensLeft: [employer] CEBTUUZN03/30/2355VI6AAP 14.0 / [id number] / Insurance Care Teams Team MemberRelationshipSpecialtyStart DateEnd Date Kristyn Zamora, SERVICE GREETER [address] [place] [address] PCP - GeneralInternal Medicine09/13/24
--- NOTE | 2025-06-30 10:28 | XR_ITS ---
The [address] [address] Patient Name: SALOMÓN ROMERO MRN: [id number] date: 1950 Sex: F Assigned Patient Location: [facility] Current Patient Location: [facility] Accession/Order Number: [id number] Exam Date: 06/30/2025 10:55 Report Date: 06/30/2025 11:40 At the request of: BART DOUGHERTY Procedure: XR thoracic spine 2V CLINICAL DATA: Chronic mid back pain. THORACIC SPINE -2 views: COMPARISON: None AP and lateral views were obtained. There is osteopenia. There is slight dextroscoliotic curvature. There is no evidence of compression fracture or displacement. The pedicles, as visualized are intact. There is mild endplate spurring. Prior cervical fusion is noted. There are no paraspinal soft tissue abnormalities. XR/XR lumbar spine 2-3V IMPRESSION: OSTEOPENIA, SCOLIOSIS AND DEGENERATIVE CHANGES LUMBAR SPINE - 2 views COMPARISON: CT 08/26/2023 AP and lateral views were obtained. There is osteopenia. There is S-shaped thoracolumbar scoliotic curvature. No acute compression fractures are identified. There is still slight anterolisthesis of L4 on L5 and L5 on S1. There is disc space narrowing at L2-3 and L3-4, greater toward the right. There is mild endplate spurring and lower lumbar facet hypertrophy. The SI joints are intact. There is atherosclerotic plaque at the aorta and iliac arteries. IMPRESSION: OSTEOPENIA, SCOLIOSIS AND DEGENERATIVE CHANGES SIMILAR TO THE PRIOR. Impression dictated by: Sangeeta Mckeon M.D. 06/30/2025 11:40 AM Dictation Location: [place] [address] Electronically authenticated by: [id number] Y Date: 06/30/2025 11:40
--- NOTE | 2025-06-30 10:28 | XR_ITS ---
The [address] [address] Patient Name: SALOMÓN ROMERO MRN: [id number] date: 1950 Sex: F Assigned Patient Location: [facility] Current Patient Location: [facility] Accession/Order Number: [id number] Exam Date: 06/30/2025 10:55 Report Date: 06/30/2025 11:40 At the request of: BART DOUGHERTY Procedure: XR thoracic spine 2V CLINICAL DATA: Chronic mid back pain. THORACIC SPINE -2 views: COMPARISON: None AP and lateral views were obtained. There is osteopenia. There is slight dextroscoliotic curvature. There is no evidence of compression fracture or displacement. The pedicles, as visualized are intact. There is mild endplate spurring. Prior cervical fusion is noted. There are no paraspinal soft tissue abnormalities. XR/XR thoracic spine 2V IMPRESSION: OSTEOPENIA, SCOLIOSIS AND DEGENERATIVE CHANGES LUMBAR SPINE - 2 views COMPARISON: CT 08/26/2023 AP and lateral views were obtained. There is osteopenia. There is S-shaped thoracolumbar scoliotic curvature. No acute compression fractures are identified. There is still slight anterolisthesis of L4 on L5 and L5 on S1. There is disc space narrowing at L2-3 and L3-4, greater toward the right. There is mild endplate spurring and lower lumbar facet hypertrophy. The SI joints are intact. There is atherosclerotic plaque at the aorta and iliac arteries. IMPRESSION: OSTEOPENIA, SCOLIOSIS AND DEGENERATIVE CHANGES SIMILAR TO THE PRIOR. Impression dictated by: Sangeeta Mckeon M.D. 06/30/2025 11:40 AM Dictation Location: [place] [address] Electronically authenticated by: [id number] Y Date: 06/30/2025 11:40
--- OUTSIDE RECORDS SUMMARY | 2025-06-30 10:28 | XMS_ITS | Patient Health Record ---
Author Organization [facility] in [place] Address [address] [place] [address] Care Team Providers Care Cut In Station Operator Name Role Phone Kristyn Dougherty Primary Care Provider [phone] Anna Cantor Unavailable [phone] Allergies Allergen (clinical drug ingredient) Drug/Non Drug Allergy documented on EMR Reaction Allergy Type Onset Date Status [place] Mold (uncoded)UnknownAllergyActiveacetaminophenTylenolRinging earsDrug AllergyActiveCat danderCat DanderUnknownAllergyActiveCannabis sativa whole extractMarijuana (Cannabis Sativa)SwellingDrug AllergyActiveSpider BitesEdema/ SwellingAllergyActive Results Component Value Reference Range Notes COVID-19, Flu A+B IH Reviewed date:06/30/2025 09:44:11 AM Interpretation: Performing Lab: Notes/Report: COVID - FLU A-FLU B-Control+US THYROID Reviewed date:02/15/2025 10:40:33 AM Interpretation: Performing Lab: Notes/Report: Source Facility: [place] [address] [place] [address] Ultrasound Report Signed Patient: BRIGITTE HIGH MR#: [id number] : 1950 Acct:[id number] Age/Sex: 74 / F ADM Date: 02/11/25 Loc: US Attending Dr: KRISTYN DOUGHERTY Ordering Physician: KRISTYN DOUGHERTY Date of Service: 02/11/25 Procedure(s): US thyroid Accession Number(s): [id number] cc: KRISTYN DOUGHERTY [address] [address] Patient Name: BRIGITTE HIGH MRN: [facility]:[id number] date: 1950 Sex: F Assigned Patient Location: US Current Patient Location: Accession/Order Number: [id number] Exam Date: 02/12/2025 00:25 Report Date: 02/12/2025 00:29 At the request of: KRISTYN DOUGHERTY Procedure: US thyroid US thyroid 02/11/2025 11:09 AM SIGNS AND SYMPTOMS: Left Thyroid Nodule COMPARISON: 02/17/2024, 02/04/2023, and 10/18/2022 FINDINGS: Right and left thyroid lobes are normal in size and echotexture. The right thyroid lobe measures 3.7 x 1.5 x 1.4 cm and the left thyroid lobe measures 4.2 x 1.3 x 1.4 cm. The isthmus measures 3 mm in thickness. There is a predominant cystic wider than tall well-circumscribed nodule on the right leg and calcifications measuring up to 7 mm in greatest dimension. There is a nearly isoechoic ill-defined solid appearing nodule near the inferior pole the left thyroid lobe gland calcification. This is wider than tall and measures approximately 1.3 cm in greatest dimension. No cervical lymphadenopathy is noted. US/US thyroid IMPRESSION: TIRADS: 3 (mildly suspicious) There is a mildly suspicious nodule in the left thyroid lobe which is essentially unchanged dating back to the October 18, 2022 study. This study serves as the two-year follow-up. Continued follow-up at years 3 and 5 is recommended. Impression dictated by: Raul Suarez M.D. 02/12/2025 12:29 AM Dictation Location: [place] [address] Electronically authenticated by: [id number] Y Date: 02/12/2025 00:29 Dictated By: Raul Suarez M.D. Signed By: 02/12/25 0032 DD/ 0029 TD/TT: Elevator Repair Mechanic:LOUIE SANCHEZ Reviewed date:09/27/2024 03:26:20 PM Interpretation: Performing Lab: Notes/Report: Source Facility: [facility]-[address] [place] [address] Cardiology Report Signed Patient: BRIGITTE HIGH MR#: [id number] : 1950 Acct:[id number] Age/Sex: 73 / F ADM Date: 09/15/24 Loc: CARD Attending Dr: KRISTYN DOUGHERTY Ordering Physician: KRISTYN DOUGHERTY Date of Service: 09/15/24 Procedure(s): CA segmental UE or LE CHRIS Accession Number(s): [id number] cc: KRISTYN DOUGHERTY [facility] Test Date: 2024-09-15 Pat Name: BRIGITTE HIGH Department: Room: - Gender: Female 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 Interpretive Statements [...] M.D. Dictated By: LION BACON Signed By: 09/25/24 1800 09/25/24 1800 DD/ 1357 TD/TT: Elevator Repair Mechanic:HORACIO T3 Reviewed date:11/09/2024 02:39:09 PM Interpretation: Performing Lab: Notes/Report: Ana [facility] Horacio T32.412.18-3.98 pg/mLPerforming Lab:see noteML - [facility] LB INSULIN Reviewed date:11/10/2024 10:55:47 AM Interpretation: Performing Lab: Notes/Report: [facility] ,Insulin5.32.6-24.9 uIU/mL [address] [place] [address] [id number] Playroom Attendant: Boris Rosen PhD, Phone: [phone] Performed at: [facility] Performing Lab:see [facility] LBIRON Reviewed date:11/09/2024 02:39:09 PM Interpretation: Performing Lab: Notes/Report: [facility] ,Iron59.050.0-170.0 ug/dLPerforming Lab:see note - [facility] LBLAB TESTING Reviewed date:11/11/2024 11:59:20 AM Interpretation: Performing Lab: Notes/Report: [id number] CA27.29 [facility] ,Miscellaneous TestCOMMENT. Performed at: [facility] be used interchangeably. Results cannot be interpreted as Test Ordered: [id number] CA 27.29 Siemens Pluralityaur Immunochemiluminometric Methodology (ICMA) CA 27.29 44.9 [H ] U/mL Reference Range: 0.0-38.[address] [place] [address] [id number] absolute evidence of the presence or absence of malignant Playroom Attendant: Boris Rosen PhD, Phone: [phone] disease. Values obtained with different assay methods or kits cannot Performing Lab:see [facility] LBLIPID PROFILE Reviewed date:11/09/2024 02:39:09 PM Interpretation: Performing Lab: Notes/Report: [facility] ,Leznhfxjyfcnb97<=150 mg/jPWudewnyvwnp107<=200 mg/dLHDL Waiorjghdoe8544-88 mg/dL <40 mg/dl - HIGH CARDIOVASCULAR RISK > or =60 mg/dl - LOW CARDIOVASCULAR RISK LDL Cholesterol Kvznldjuvy36.0 <100 mg/dl OPTIMAL >190 mg/dl VERY HIGH 160-189 mg/dl HIGH 100-129 mg/dl NEAR OR ABOVE OPTIMAL 130-159 mg/dl BORDERLINE HIGH VLDL CHOLESTEROL7.6Chol HDL Ratio1.6 >11.0 HIGH RISK 7.1 - 11.0 MODERATE RISK 3.3 - 4.4 LOW RISK 4.4 - 7.1 AVERAGE RISK Performing Lab:see note - [facility] LBPROF 14(COMP METB) Reviewed date:11/09/2024 02:39:09 PM Interpretation: Performing Lab: Notes/Report: [facility] ,Yhevrp999255-621 mmol/LPotassium3.73.5-5.1 mmol/MYurhhmsf54178-431 mmol/LCarbon Yoaqspw09.321.0-32.0 mmol/LAnion Gap14.9Zcabgsc1283-109 mg/dLBlood Urea Nitrogen 11.07.0-18.0 mg/dLCreatinine0.670.55-1.02 mg/dLEstimated GFR ( Geetha>60 >=60 mL/min/1.73m 2Estimated GFR (Non- Dayana>60>=60 mL/min/1.73m 2BUN Creatinine Ratio16.7Obwfufp8.48.5-10.1 mg/dLBilirubin Total0.40.2-1.0 mg/dL Aspartate Amino Soaekdjkxds5859-14 U/LAlanine Ykvwtlazcajqojuj9758-07 U/L Alkaline Fvhvgvgejmj9656-305 U/LTotal Protein7.66.4-8.2 g/dLAlbumin Level3.73.4- 5.0 g/dLGlobulin3.9Albumin Globulin Ratio0.9Performing Lab:see noteML - [facility] LBT4 Reviewed date:11/09/2024 02:39:09 PM Interpretation: Performing Lab: Notes/Report: [facility] ,T4 Thyroxine5.704.80-13.90 ug/dLPerforming Lab:see noteML - [facility] LBTSH Reviewed date:11/09/2024 02:39:09 PM Interpretation: Performing Lab: Notes/Report: [facility] ,Thyroid Stimulating Hormone1.8710.358-3.740 uIU/mLPerforming Lab:see noteML - [facility] LBVITAMIN D 25 [place] Reviewed date:11/09/2024 02:39:09 PM Interpretation: Performing Lab: Notes/Report: [facility] ,Vitamin D34.6 <20 ng/mL Vit D deficient >100 ng/mL Potential Toxicity 20-<30 ng/mL Vit D insufficient 30-100 ng/mL Vit D sufficient Performing Lab:see noteML - [facility] LBMM tomosynthesis screening BI Reviewed date:12/24/2024 12:40:04 PM Interpretation: Performing Lab: Notes/Report: Source Facility: [facility]-[address] [place] [address] [place] [address] Mammography Report Signed Patient: BRIGITTE HIGH MR#: [id number] : 1950 Acct:[id number] Age/Sex: 74 / F ADM Date: 12/24/24 Loc: MAMMO Attending Dr: Tania Morales D.O. Ordering Physician: Tania Morales D.O. Results: Date of Service: 12/24/24 Follow Up: Procedure(s): MM tomosynthesis screening RT Accession Number(s): [id number] cc: KRISTYN DOUGHERTY ; Tania Morales D.O. Patient Name: BRIGITTE HIGH MR#: [id number] : 1950 Exam Date: 12/24/2024 Ordering Doctor: [...] colon cancer at age 53. LOCATION: [facility] BREAST COMPOSITION: The breasts are heterogeneously [...] Signed By: 12/24/24 1009 DD/ 100 TD/TT: Elevator Repair Mechanic:GLYCOHEMOGLOBIN A1C Reviewed date:11/09/2024 02:39:09 PM Interpretation: Performing Lab: Notes/Report: [facility] ,Glycohemoglobin A1C5.54.5-6.2 % ADA RECOMMENDED LIMIT 4.0 - 6.0 ACTION SUGGESTED ADA THERAPEUTIC TARGET < 7.0 > 7.0 Estimated Average Iuqrvok861Wgghwxoqvd Lab:see noteML - [facility] LB CBC AUTO DIFF Reviewed date:11/09/2024 02:39:09 PM Interpretation: Performing Lab: Notes/Report: [facility] ,White Blood Count4.94.0-11.0 10 3/uLRed Blood Count4.304.20-5.40 10 6/uL Ybcchhgqbb85.112.0-16.0 g/gUZuyqmmyukg77.736.0-48.0 %Mean Corpuscular Qdxabc53.3 81.0-99.0 fLMean Corpuscular Yniwqnwcmx39.526.7-34.0 pgMean Corpuscular HGB Conc 33.029.9-35.2 g/dLRed Cell Distribution Width12.911.0-15.0 %Platelet Wthxr543 150-450 10 3/uLMean Platelet Volume9.59.5-13.5 fLNeutrophils Percent Auto55.5 43.0-75.0 %Lymphocytes Percent Auto33.820.5-60.0 %Monocytes Percent Auto6.81.7- 12.0 %Eosinophils Percent Auto2.70.9-7.0 %Basophils Percent Auto1.00.2-2.0 % Immature Granulocytes Pct Auto0.20.0-0.5 %Neutrophils Absolute Auto2.71.4-6.5 10 3/uLLymphocytes Absolute Auto1.61.2-3.8 10 3/uLMonocytes Absolute Auto0.30.3-0.8 10 3/uLEosinophils Absolute Auto0.10.0-0.7 10 3/uLBasophils Absolute Auto0.10.0- 0.1 10 3/uLImmature Granulocytes Abs Auto0.010.00-0.03 10 3/uLPerforming Lab:see noteML - [facility] LBCOVID-19, Flu A+B IH (Not yet reviewed by provider) Interpretation: Performing Lab: Notes/Report: COVIDpositiveFLU AnegFLU BnegControlpresent Reason For Referral Diagnosis 1 BRBPR (bright red bl ood per rectum) (K62.5) Referral Organization [facility] Referring Provider First Name Kristyn Referring Provider Last Name Noah Referring Provider [facility] Referred Provider Specialty Gastroentero logy Referral Priority Routine Diagnosis 1 Black toe (I96) Referral Organization [facility] Referring Provider First Name Kristyn Referring Provider Last Name Noah Referring Provider [facility] Referred Provider Josh Casillas Referred Provider Specialty Podiatry Referral Priority Routine Reason Would like to be see n at [place] office please. Thank You. Diagnosis 1 Peripheral artery di sease (I73.9) Referral Organization [facility] Referring Provider First Name Kristyn Referring Provider Last Name Noah Referring Provider [facility] Referred Provider Lexx Diop Referred Provider Specialty Vascular John zulma Referral Priority Routine Medications Medication SIG (Take, Route, Frequency, Duration) Notes Start Date End Date Status Ibuprofen 600 MG TAKE 1 TABLET BY ADONIS TH EVERY 6 TO 8 HOURS NEEDED; Duration: 25 ActiveMulti Vitamin -1 tablet Orally Once a dayWith IronActiveNeuriva -as directed OrallyActiveAmoxicillin-Pot Clavulanate 875-125 MG1 tablet Orally every 12 hrs; Duration: 10 days5ActiveNirmatrelvir&Ritonavir 300/100 20 x 150 MG & 10 x 100MG3 tablets Orally Twice a day; Duration: 5 days5Active Ondansetron HCl 4 MG1 tablet Orally BID prn; Duration: 7 days5Active Rosuvastatin Calcium 20 MG1 tablet Orally Once a dayActiveTurmericActiveDoxepin HCl 3 MG1 tablet at bedtime Orally Once a day; Duration: 30 03/07/2025 Ufj-PwagsvFqmmfv-D 37.5 MG1 tablet before breakfast Orally Once a day; Duration: 30 days5ActiveBimatoprost 0.03 %INSTILL 1 DROP INTO BOTH EYES IN THE EVENING ONCE A DAY; Duration: 30ActiveHair Skin & NailsActive Social History Tobacco Use: Social History Observation Description Date Details (start date - stop date) Former Smoker NA - NA Tobacco Use/Smoking Question Answer Notes Patient is a former smoker How long has it been since you last smoked?> 10 yearsAUDIT-C (Standard) Question Answer Notes Did you have a drink containing alcohol in the p ast year? No Bealym9ZdeowwekfdpvptGlgaqxnu Problems Problem Type SNOMED Code ICD Code Onset Dates Problem Status W/U Status Risk Notes Problem Gastro-esophageal re flux disease without esophagitis (051212205) Gastro-esophageal reflux disease without esophagitis (K21.9) ActiveconfirmedProblemOverweight (543659432)Overweight (E66.3)Activeconfirmed ProblemOsteoarthritis (874121446)Unspecified osteoarthritis, unspecified site (M19.90)ActiveconfirmedProblemDysuria (66817906)Dysuria (R30.0)Activeconfirmed ProblemHistopathology finding (597829508)Unspecified abnormal finding in specimens from other organs, systems and tissues (R89.9)ActiveconfirmedProblem Fatigue (84818746)Fatigue (R53.83)ActiveconfirmedProblemPeripheral artery disease (107238782)Peripheral artery disease (I73.9)ActiveconfirmedProblem Arthritis (4649270)Arthritis (M19.90)ActiveconfirmedProblemInsomnia (141000067) Insomnia (G47.00)ActiveconfirmedProblemPersonal history of primary malignant neoplasm of breast (381081840)History of breast cancer (Z85.3)Activeconfirmed ProblemBack pain (746943872)Back pain (M54.9)ActiveconfirmedProblemSinusitis (41766762)Sinusitis (J32.9)ActiveconfirmedProblemOsteoporosis (35344983) Osteoporosis (M81.0)ActiveconfirmedProblemColonic polyp (77822822)Colonic polyp (K63.5)ActiveconfirmedProblemBreathing painful (16082029)Rib pain on left side (R07.81)ActiveconfirmedProblemNon-toxic single thyroid nodule (452647576)Left thyroid nodule (E04.1)ActiveconfirmedProblemCystic acne (10858974)Cystic acne (L70.0)ActiveconfirmedProblemCervical dysfunction (M53.9)ActiveconfirmedProblem Ex-smoker for more than 1 year (26337891162386)Ex-smoker for more than 1 year (Z87.891)ActiveconfirmedProblemIschemia of both lower extremities (I99.8)Active confirmedProblemGangrenous disorder (661288377)Black toe (I96)Activeconfirmed ProblemCellulitis of toe (43980225)Paronychia of great toe (L03.039)Active confirmedProblemChronic cough (48035417)Chronic cough (R05.3)Activeconfirmed Vital Signs Heart Rate 67 /min 05/19/2025 Ijmstaieluu40.2 degrees Pfywdfvkom14/04/0615Mwxvfeox88 %05/19/2025lood pressure oinwhcnzm34 mm Hg06/30/20257152Hjlpju73 in06/30/2025lood pressure janojbpi172 mm Hg 06/30/20254307Vugmvh701 lbs108/31/2024BMI27.45 kg/m206/30/2025 Procedures Procedure Date Ordered Date Performed Result Body Sit e ALDO Segmental Pressure Study of Lower Extremity 09/08/2024 N/A Encounters Encounter Location Date Provider Diagnosis [address] [address] 02/08/2025 Kristynfrank Dougherty Wasp sting T63.461A [address] [address] 08/11/2024 Kristynfrank Dougherty Cellulitis L03.[address] [address] 09/08/2024 Kristynfrank Dougherty Black toe I96 and BRBPR (bright red blood per rectum) K62.5 [facility] (PODIATRY) [address] [place] [address] [place] [address] 09/09/2024 Anna Cantor Other injury of unspecified body region, initial encounter T14.8XXA and Blister (nonthermal), unspecified lesser toe(s), initial encounter S90.426A [place] [address] [place] [address] 11/09/2024 Kristyn Dougherty Overweight E66.3 ; Fatigue R53.83 and History of breast cancer Z85.3 [place] [address] [place] [address] 12/27/2024 Kristyn Dougherty Paronychia L03.019 and Wellness examination Z00.[address] [address] 07/30/2024 Kristyn Dougherty Overweight E66.3 and Chronic cough R05.[address] [address] 06/30/2025 Kristyn Dougherty Sinus pressure J34.89 ; Sinusitis J32.9 and Back pain M54.[address] [place] [address] 04/25/2025 Kristyn Dougherty Body aches R52 ; Sinus drainage J34.89 and COVID-[address] [address] 05/19/2025 Kristyn Dougherty Bronchitis J40 and Overweight E66.3 [facility] [address] [place] [address] 07/30/2024 Kristyn Dougherty [place] [address] [facility] [place] [address] 09/08/2024[facility] [place] [address]/12/2025Kristyn DoughertyBRBPR (bright red blood per rectum) K62.5[place] [address] [place] [address]/12/2025Kristyn DoughertyBlack toe R04SjoaaaySt. [facility] [address] [facility] [place] [address]/Kristyn [facility] [facility] [place] [address]/09/2024 Kristyn DoughertyPeripheral artery disease I73.9B[facility] [facility] [place] [address]/[facility]enia [facility] [facility] [place] [address]/Pazenia [facility] [facility] [place] [address]/08/2024Pazenia [facility] [facility] [place] [address]/Kristyn Quintero thyroid nodule E04.1 [facility] [facility] [place] [address] 02/15/2025[facility] [place] [address]/10/2024Pazenia DoughertyWasp sting T63.461ASt. [facility] Hospital[address] [facility] [place] [address]/12/2024[address]yn [address] [facility] [facility] [place] [address] 03/07/2025[facility] [facility] [place] [address]/03/2025Kristyn Dougherty Assessments Encounter Date Diagnosis (ICD Code) Assessment Notes Treatment Notes Treatment Clinical Notes Section Notes 07/30/2024 Overweight (ICD-10 - E66.3) 5Cellulitis (ICD-10 - L03.90) warm soaks TID close monitoring if not improving, worsens, needs to seek medical care 5Black toe (ICD-10 - I96) 2-3 weeks changed color numb was purple, red sore before that baby ASA daily , see wound care while waiting for aldo testing 5BRBPR (bright red blood per rectum) (ICD-10 - K62.5) referral to GI last colonoscopy 2021 increased BRBRP scant amt 09/09/2024Other injury of unspecified body region, initial encounter (ICD-10 - T14.8XXA) The patient is a pleasant 73 year old female with former history of tobacco use who was sent by herP for evaluation of a black toe. The [...] of the discoloration. Blood Blister right 5th toe5Blister (nonthermal), unspecified lesser toe(s), initial encounter (ICD-10 - S90.426A)11/09/2024Overweight (ICD-10 - E66.3) work on diet discussed my fitness pal karol to track calories increase protein, decrease carbs int fasting? 12/27/2024Paronychia (ICD-10 - L03.019)continue warm soaks12/27/2024Wellness examination (ICD-10 - Z00.00) labs reviewed ROS done exam done recent mammogram follows with onc breast CA 02/08/2025Wasp sting (ICD-10 - T63.461A) rest push fluids otc allergy meds ok for off work note 04/25/2025ody aches (ICD-10 - R52)04/25/2025Sinus drainage (ICD-10 - J34.89) 05/19/2025ronchitis (ICD-10 - J40)fu if not scfwqipbd05/23/2025Overweight (ICD- 10 - E66.3)06/30/2025Sinus pressure (ICD-10 - J34.89)06/30/2025Sinusitis (ICD-10 - J32.9)09/08/2024RBPR (bright red blood per rectum) (ICD-10 - K62.5)09/08/2024 Black toe (ICD-10 - I96)09/27/2024Peripheral artery disease (ICD-10 - I73.9) 02/08/2025Left thyroid nodule (ICD-10 - E04.1)02/28/2025Wasp sting (ICD-10 - T63.461A)06/30/2025ack pain (ICD-10 - M54.9)5COVID-19 (ICD-10 - U07.1) 11/09/2024Fatigue (ICD-10 - R53.83)5Chronic cough (ICD-10 - R05.3)TRY OTC allergy pill and Bdkoogm5711/09/2024History of breast cancer (ICD-10 - Z85.3) Plan Of Treatment Pending Test Test Name Order Date CMP (COMPLETE METABOLIC PANEL) 4 CMP (COMPLETE METABOLIC PANEL) 4 UA (URINALYSIS, COMPLETE) 08/01/2023 UA (URINALYSIS, COMPLETE) 05/27/2023 UA (URINALYSIS, COMPLETE) 07/22/2023 UA (URINALYSIS, COMPLETE) 05/22/2023 UA (URINALYSIS, COMPLETE) 07/17/2023 CA27.29 11/09/2024 CA27.29 09/11/2023 HEMOGLOBIN A1C (GLYCO) 09/11/2023 HEMOGLOBIN A1C (GLYCO) 11/09/2024 IRON, TOTAL 11/09/2024 IRON, TOTAL 09/11/2023 LIPID PANEL (CHOL/TRIG/HDL/LDL) 11/10/19 25 LIPID PANEL (CHOL/TRIG/HDL/LDL) 09/11/19 24 CBC WITH DIFF (EXP 05/2025) 09/11/2023 VITAMIN D, 25 LEVEL (TOTAL) 11/09/2024 VITAMIN D, 25 LEVEL (TOTAL) 09/11/2023 US Thyroid 02/04/2024 UA DIP NONAUTO WO MICRO (79082) - IN OFF ICE 05/22/2023 Urine Culture 07/22/2023 Urine Culture 08/01/2023 URINE CULTURE 07/17/2023 URINE CULTURE 05/22/2023 Insulin Level 11/09/2024 Insulin Level 09/11/2023 COVID-19, Flu A+B IH 04/25/2025 Covid-19 PCR (CVDTBH) 12/25/2023 CULTURE URINE 05/27/2023 URINE MICROSCOPIC ONLY 08/01/2023 MG MAMM RT DIAG FU 11/28/2022 US THYROID 01/30/2023 THYROID PANEL (T4/TSH/FREE T3) 5 THYROID PANEL (T4/TSH/FREE T3) 4 XR lumbar spine 2-3V 06/30/2025 XR thoracic spine 2V 06/30/2025 ALDO Segmental Pressure Study of Lower Ex tremity 09/08/2024 CMP (COMP MET LAMBERT) w/eGFR CKD-EPI 2024 CBC WITH DIFF 11/09/2024 Insurance Providers Payer Name Payer Address Payer Phone Subscriber Number Group Number Insured Name Patient Relationship to Insured Coverage Start Date Coverage End Date [place] [address] [place] [address] [id number] Renny High - patient is the [id number] [facility] [place] [facility] PLUSPO [address] [place] [id number] Renny High - patient is the [id number] 2018 Medical (General) History Medical History History ICD [...] Date(Month/Year) breast reduction 03/20 Cataract Extraction- Bilateral [place] Teeth ExtractionBilateral Carpal Tunnel SurgeryLeft Side Masectomy with ReconstructionNeck SurgeryBack Surgery
--- OUTSIDE RECORDS SUMMARY | 2025-06-30 10:29 | XMS_ITS | CCD ---
Author Organization [facility] Care Team Providers Care Phlebotomy Specialist Name Role Phone Adrian, Jing Unavailable [...] LADONNA, KRISTYN Primary Care Unavailable DR ILDEFONSO TORRES V Consulting Unavailable LADONNA, KRISTYN Admitting Unavailable LADONNA, KRISTYN Primary Care Unavailable LADONNA, KRISTYN Attending Unavailable LADONNA, KRISTYN Consulting Unavailable LADONNA, KRISTYN Attending Unavailable DR LUPIS OZUNA Consulting Unavailable LADONNA, KRISTYN Admitting Unavailable LADONNA, KRISTYN Primary Care Unavailable LADONNA, KRISTYN Consulting Unavailable DR ILDEFONSO TORRES V Consulting Unavailable LADONNA, KRISTYN Attending Unavailable [...] Attending Unavailable ADRIAN, JING KEREN Primary Care UnavailStar Amaya Attending Unavailable Star Recinos Admitting Unavailable MD Star Recinos Attending Provider Ghazoul, Jadyn Consulting Unavailable Ladonna, Kristyn Primary [...] Attending Unavailable Ladonna, Kristyn Referring Unavailable Ladonna MEDICAL RECORDS TECHNICIAN-PHARMACY TECHNICIAN ASSISTANT, Kristyn S Primary Care Provider Carlito Horvath MD Unavailable Ladonna MORGAN Kristyn S Primary Care Provider Unavailable Primary Care Provider Unavailabl e Ladonna MEDICAL RECORDS TECHNICIAN-PHARMACY TECHNICIAN ASSISTANT, Kristyn S Primary Care Provider Unavailable Primary Care Provider UnavailDANIELITO Edwards Attending Unavailable KRISTYN DOUGHERTY S Primary Care Unavailable LadonnaGunjan Lucasela Cynthia Primary Care Provider Carlito Horvath MD Unavailable CARLITO HORVATH Attending Unavailable CARLITO HORVATH Referring Unavailable KRISTYN DOUGHERTY Primary Care Unavailable Star RECINOS Attending Unavailable Star RECINOS Attending Unavailable Star RECINOS Attending Unavailable Star RECINOS Attending Unavailable Allergies Allergy ClassificationReported Allergen(s)Allergy TypeDate of OnsetReaction(s) FacilityAcetaminophen (9 sources)Acetaminophen; Translations: [Tylenol]Drug IbufpsmUC-QXCP-Qkar 2535A Work Phone: (20 sources)Acetaminophen; Translations: [Tylenol]Drug AllergyTinnitus (finding) [facility] (20 sources)Codeine; Translations: [Codeine Derivatives]Drug Ehokclu94-21-2562 Unknown, Other (See Comments)QX-NYKI-Splj 2535A Work Phone: (15 sources)Mold ExtractDrug FglryztBY-GDWB-Zaub 2535A Work Phone: (15 sources)[place] moldAllergy to substance (finding)VV-MSCR-Jcqx 2535A Work Phone: (5 sources)Animal dander - CatsAllergy to substance (finding)VA-FUYM-Hmld 2535A Work Phone: (13 sources)Acetaminophen; Translations: [ACETAMINOPHEN]Drug Zcbjqck39-91-6385 Other: See Comments, Unknown, Other (See Comments), [facility] (1 source)Environmental Allergies: Uncoded; Translations: [Environmental Allergies: Uncoded]Propensity to adverse reactions (disorder)29-79-0840[facility]jm[facility] (1 source)cat danderDrug allergy (disorder)18-75-8482UoosasnS[facility] (6 sources)AcetaminophenDrug Fnwcces75-35-8658[facility] (2 sources)Codeine; Translations: [CODEINE]Drug Vqrpzbt32-71-3311[facility] Repository Medications Current Medications MedicationDrug Class(es)DatesSig (Normalized)Sig (Original)amoxicillin 875 mg / clavulanate 125 mg oral tablet (2 sources)Penicillin-class AntibacterialStart: 08-25-2023 End: 53-22-8949thsv 1 tablet by mouth every twenty-four hours at mealtime Augmentin 875 mg oral tablet = 1 tab(s), Oral, q24hr, Take with probiotics and with food., X 30 day(s), # 30 tab(s), Refills(s) 1, Pharmacy: [facility]/pharmacy #[id number], 165, cm, 08/25/23 12:11:00 EST, Height/Length Dosing, 72, kg, 08/25/23 12:11:00 EST, Weight Dosing Start Date: 08/25/23 Stop Date: 10/24/23 Status: Orderedaspirin 81 mg oral capsule (1 source)Platelet Aggregation Inhibitor, Nonsteroidal Anti-inflammatory Drug Start: 18-82-0510lpuj 1 capsule by mouth every twenty-four hoursaspirin 81 mg oral capsule 81 mg = 1 cap(s), Oral, q24hr, Refills(s) 0 Start Date: 04/04/25 Status: Ordered Repeat number: 1Azithromycin (2 sources)Macrolide AntimicrobialStart: 71-79-1133Bncqubidjfjh Active 0 PO .COMPLEX December 21, 2023 12:00am For 250 mg dose pack: take 500 mg today (day 1), then 250 mg for 4 days (days 2-5) POStart: 57-14-5081Qbodshslbwhr 250 MG Oral Tablet TAKE 2 TABLETS ON DAY 1 THEN TAKE 1 TABLET A DAY FOR 4 DAYS. Quantit y: 1 Refills: 0 Ordered: 29-Oct-2021 Jing Campbell DO Start : 29-Oct-2021 Active B Egdlkdo-Ceimgl-VT (GNP B-100 Complex) tablet controlled-release (6 sources)B Figxkeg-Oluwqy-BN (GNP B-100 Complex) tablet controlled-release Take by mouth Activebimatoprost 0.3 mg/ml topical solution (20 sources)Prostaglandin AnalogStart: 19-84-6041dyptrwkftvj (Latisse) 0.03 % ophthalmic solution Indications: Encounter for general adult medical examination without abnormal findings APPLY 1 INCH TO AFFECTED EYE EVERYDAY AT BEDTIME 3 mL 3 04/15/2023 ActiveBimatoprost 0.03 % External Solution APPLY 1 INCH Bedtime Quantity: 1 Refills: 3 Ordered: 12-Apr-2022 Jing Campbell DO ActiveBimatoprost 0.03 % External Solution APPLY 1 INCH Bedtime Quantity: 1 Refills: 3 Ordered: 29-Oct-2021 Jing Campbell DO ActiveBiotin (3 sources)BIOTIN ORAL Take by mouth. Activecalcium carbonate 1500 mg oral tablet (3 sources)take 1 tablet by mouth in the morning, then take 1 tablet by mouth at mealtimecalcium carbonate (OS-JAMESON) 600 mg elemental (1,500 mg) tablet Take 1 tablet (600 mg total) by mouthin the morning and 1 tablet (600 mg total) in the evening. Take with meals. Activecalcium carbonate 1500 mg / cholecalciferol 200 unt oral tablet (5 sources)Vitamin DStart: 73-83-5390fxqz 1 tablet by mouth once dailycalcium carbonate 600 mg-cholecalciferol 200 units (CALCIUM 600 + D,3,) 600 mg(1,500mg) -200 unit tab Take 1 tablet by mouth once daily. 03/28/2015 ActiveComment on above:Take 1 tablet by mouth once daily.Calcium Citrate / Vitamin D (5 sources)Start: 21-32-9533retwyck-vitamin D Refill(s) 0 Start Date: 08/25/23 Status: Ordered Repeat number: 1Start: 89-83-0661sfoscbb-vitamin D Refill(s) 0 Start Date: 08/25/23 Status: Orderedcholecalciferol 0.05 mg oral tablet (20 sources)Vitamin DStart: 41-00-7641miar 1 tablet by mouth once daily cholecalciferol (Vitamin D-3) 50 MCG (1999 UT) tablet Take 1 tablet (50 mcg) by mouth once daily. 07/10/2020 ActiveStart: 32-70-3533koyp 1 tablet by mouth once dailycholecalciferol (Vitamin D-3) 50 MCG (1999 UT) tablet Take 1 tablet (2,000 Units) by mouth once daily. 07/10/2020 Activeclopidogrel 75 mg oral tablet (3 sources)P2Y12 Platelet InhibitorStart: 55-33-5953cmpn 1 tablet by mouth in the morningclopidogreL (PLAVIX) 75 mg tablet Take 1 tablet (75 mg total) by mouth in the morning. 60 tablet 3 10/21/2024 Ckbwddwyraxo-ncuytfik-acfrdcmphh dis (NEURIVA DE-STRESS) 100-200-10 mg capsule (3 sources)take 1 tablet by mouth in the lxthkbzjllkhv-kwymzgov-lobgmtfwpu dis (NEURIVA DE-STRESS) 100-200-10 mg capsule Take 1 tablet by mouth in the morning. Activedoxepin 3 mg oral tablet (1 source)Tricyclic AntidepressantStart: 12-48-7642ccqhkuw 3 mg oral tablet 3 mg = 1 tab(s), Refills(s) 0 Start Date: 04/04/25 Status: Ordered Repeat number: 1 doxycycline hyclate 100 mg oral capsule (20 sources)Tetracycline-class DrugStart: 33-30-7378hvczdnvtnfw (Vibramycin) 100 mg capsule Take by mouth. 10/29/2021 ActiveStart: 09-94-9415talj 1 capsule by mouth onceDoxycycline Hyclate 100 MG Oral Capsule Take 1 capsule by mouth daily. (Per Derm) Quantity: 0 Refills: 0 Ordered: 29-Oct-2021 DO Start : 29-Oct-2021 ActiveElderberry preparation (4 sources)Start: 19-81-8023xepxgqulku oral liquid Refill(s) 0 Start Date: 10/06/23 Status: Ordered Repeat number: 1Start: 08-71-3462gfookprfar oral liquid Refill(s) 0 Start Date: 10/06/23 Status: Aqjexxb12 hr guaiFENesin 600 mg extended release oral tablet (1 source)Start: 71-44-4123qmiv 1 tablet by mouth twice daily, then take 1 tablet by mouth every twelve hoursGuaifenesin (Mucinex) 600 mg tablet extended release 12hr Active 600 MG PO Twice daily 14 December 21, 2023 12:00amibuprofen 600 mg oral tablet (20 sources)Nonsteroidal Anti-inflammatory DrugStart: 32-02-1692ktnrhtkpo 600 MG tablet TAKE 1 TABLET BY MOUTH EVERY 6 TO 8 HOURS NEEDED 07/20/2023 Active Start: 58-21-2014Glgpxcllh 600 MG Oral Tablet Quantity: 100 Refills: 0 Ordered: 20-Nov-2022 DO Start : 20-Nov-2022 Activetake 3 tablets by mouth every six hours as neededibuprofen 200 MG tablet Take 600 mg by mouth every 6 (six) hours if needed Activelubiprostone 0.024 mg oral capsule (2 sources)Chloride Channel ActivatorStart: 13-39-5539zadx 1 capsule by mouth twice daily at mealtimelubiprostone (AMITIZA) 24 mcg capsule Take 1 capsule by mouth two times a day with meals. 60 capsule 5 09/21/2024 Active methylPREDNISolone 4 mg oral tablet (3 sources)CorticosteroidStart: 87-40-3347mfmc 1 tablet by mouth once Methylprednisolone (Medrol (John Paul)) 4 mg tablets,dose pack Active 0 PO per package directions December 21, 2023 12:00am PO PER PKG DIRStart: 04-12-2022 methylPREDNISolone (Medrol Dospak) 4 mg tablets Take by mouth. 04/12/2022 Active 24 hr mirabegron 50 mg extended release oral tablet (9 sources)beta3-Adrenergic AgonistStart: 11-19-7967bxya 1 tablet by mouth once dailyMyrbetriq 50 MG 24 hr tablet Take 50 mg by mouth Daily 09/08/2023 Active kyrlsfim-spx-pzcev acid-lutein 0.4-250 mg-mcg tablet (3 sources)take 1 tablet by mouth once in the irftlrwjtoqcthc-ths-pgpmx acid- lutein 0.4-250 mg-mcg tablet Take 1 tablet by mouth in the morning. Active multivitamin (DAILY MULTIPLE) tablet (5 sources)Start: 44-25-9600xcea 1 tablet by mouth once dailymultivitamin (DAILY MULTIPLE) tablet Take 1 tablet by mouth once daily. 0 03/28/2015 ActiveComment on above:Take 1 tablet by mouth once daily.multivitamin (Theragran) tablet (6 sources)multivitamin (Theragran) tablet Activemultivitamin with iron (5 sources)Start: 19-74-8425vkytowzpesdj with iron mL, Refill(s) 0 Start Date: 08/25/23 Status: Ordered Repeat number: 1Start: 45-64-8990hrdxtwmbmtor with iron mL, Refill(s) 0 Start Date: 08/25/23 Status: Orderedomeprazole 40 mg delayed release oral capsule (8 sources)Proton Pump InhibitorStart: 41-18-7756obvl 1 capsule by mouth once dailyomeprazole (PriLOSEC) [address] capsule Take 40 mg by mouth Daily 03/14/2023 ActiveStart: 89-35-3446Ukfmqsknsq 40 MG Oral Capsule Delayed Release Quantity: 30 Refills: 0 Ordered: 14-Oct-2022 DO Start: 14-Oct-2022 ActivePhentermine (6 sources)Sympathomimetic Amine AnorecticStart: 00-63-5992omba 1 mg by mouth once dailyAdipex-P mg, Oral, Daily, Refills(s) 0 Start Date: 08/25/23 Status: OrderedStart: 57-49-8734Qcstwyadvbx HCl - 37.5 MG Oral Tablet Quantity: 30 Refills: 0 Ordered: 21-Nov-2022 DO Start : 21-Nov-2022 Activeplecanatide 3 mg oral tablet (3 sources)Start: 98-66-8096dpey 1 tablet by mouth once dailyplecanatide (TRULANCE) 3 mg tablet Take 1 tablet by mouth once daily. 30 tablet 5 09/21/2024 Activerosuvastatin calcium 5 mg oral tablet (5 sources)HMG-CoA Reductase InhibitorStart: 97-71-3025uruhzypkycib 5 mg Tab 5 mg = 1 tab(s), Refills(s) 0 Start Date: 04/04/25 Status: Ordered Repeat number: 1 Start: 10-21-2024 End: 42-34-2078dsld 1 tablet by mouth in the morningrosuvastatin (CRESTOR) 5 mg tablet TAKE 1 TABLET (5 MG TOTAL) BY MOUTH IN THE MORNING 30 tablet 3 02/21/2025 Activesennosides, mcc 8.6 mg oral tablet (20 sources)Start: 48-29-5447nljrtlfzfp (Senokot) 8.6 mg tablet 8 tablets (68.8 mg) once daily at bedtime. 04/04/2021 Activeturmeric extract 500 mg oral capsule (12 sources)Turmeric (QC Tumeric Complex) 500 MG capsule Take by mouth Active take 1 tablet by mouth in the morningTURMERIC ORAL Take 1 tablet by mouth in the morning. ActiveTURMERIC ORAL Take by mouth. Activevit B complex 100 combo no.2 (B-100 Complex) 100 mg tablet extended release (2 sources)vit B complex 100 combo no.2 (B-100 Complex) 100 mg tablet extended release Take by mouth. Active Completed/Discontinued Medications MedicationDrug Class(es)DatesSig (Normalized)Sig (Original)B Complex 1 TABS (1 source)B Complex 1 TABS Refills: 0 DO ActiveB Complex 1 TABS (20 sources)B Complex 1 TABS Quantity: 0 Refills: 0 Ordered: 30-Apr-2019 DO Activecefdinir 300 mg oral capsule (2 sources)Cephalosporin AntibacterialStart: 65-49-4886Pcubitax 300 MG Oral Capsule Quantity: 20 Refills: 0 Ordered: 28-Jun-2022 DO Start : 28-Jun-2022 Active celecoxib 200 mg oral capsule (2 sources)Nonsteroidal Anti-inflammatory DrugStart: 08-35-9133sguf 1 capsule by mouth once daily as neededCelecoxib 200 MG Oral Capsule TAKE 1 CAPSULE DAILY NEEDED. Quantity: 30 Refills: 2 Ordered: 08-May-2021 Jing Campbell DO Start : 08-May-2021 Activecephalexin 500 mg oral capsule (2 sources)Cephalosporin AntibacterialStart: 37-34-6218Yoqykhvizb 500 MG Oral Capsule Quantity: 40 Refills: 0 Ordered: 16-Aug-2022 DO Start : 16-Aug-2022 A ctiveciprofloxacin 500 mg oral tablet (1 source)Quinolone AntimicrobialStart: 25-05-2792tnlz 1 tablet by mouth once dailyCipro 500 mg Tab 500 mg = 1 tab(s), Oral, Daily, Take 1 tablet the day before the procedure and 1 tablet after the procedure, # 2 tab(s), Refills(s) 0, Pharmacy: [facility]/pharmacy #[id number], 165, cm, 258:34:00 EDT, Height/Length Dosing, 72, kg, 10/18/24 8:34:00 EDT, Weight Dosing Start Date: 03/29/25 Status: Ordered Quantity: 2.0 Unit: tab(s) Repeat number: 1clindamycin 10 mg/ml medicated pad (2 sources)Lincosamide AntibacterialStart: 73-88-2460Jgdrwhyvlbl Phosphate 1 % External Swab Quantity: 60 Refills: 0 Ordered: 28-Mar-2022 DO Start : 28-Mar-2022 Activediclofenac sodium 75 mg delayed release oral tablet (8 sources)Nonsteroidal Anti-inflammatory DrugStart: 54-33-6423Vigaqhaovs Sodium 75 MG Oral Tablet Delayed Release Quantity: 60 Refills: 0 Ordered: 06-Jul-2022 DOStart : 06-Jul-2022 Activediclofenac (Voltaren) 75 MG EC tablet Take by mouth Activeescitalopram 10 mg oral tablet (15 sources)Serotonin Reuptake Inhibitortake 1 tablet by mouth once daily Escitalopram Oxalate 10 MG Oral Tablet TAKE 1 TABLET DAILY. Quantity: 90 Refills: 3 Ordered: 04-Apr-2021 Jing Campbell DO Activeestradiol 0.1 mg/ml vaginal cream (6 sources)EstrogenStart: 3932Uvfbzmoru 0.1 MG/GM Vaginal Cream Apply pea- sized amount to vulva twice daily x 2 weeks then 2 daily x 2 weeks then twice a week for maintenance Quantity: 1 Refills: 2 Ordered: 20-Nov-2021 Lauren Barnett DO Start : 20-Nov-2021 Active OK to substitute any generic version of topical estrogen Rx covered by insurancelinaclotide 0.29 mg oral capsule (3 sources)Guanylate Cyclase-C AgonistStart: 80-01-2216zhfw 1 capsule by mouth once dailyLinzess 290 MCG Oral Capsule TAKE 1 CAPSULE Daily Quantity: 90 Refills: 3 Ordered: 20-Apr-2021 Allyn Jackson Start : 20-Apr-2021 Active meloxicam 15 mg oral tablet (7 sources)Nonsteroidal Anti-inflammatory DrugStart: 92-47-8391buqu 1 tablet by mouth once dailyMeloxicam 15 MG Oral Tablet TAKE 1 TABLET BY MOUTH DAILY Quantity: 30 Refills: 3 Ordered: 26-Feb-2021 Jing Campbell DO Start : 26-Feb-2021 ActivemethylPREDNISolone 4 MG Oral Tablet Therapy Pack (3 sources)Start: 48-13-7539mmwbzvVDTXCJKmitce 4 MG Oral Tablet Therapy Pack USE DIRECTED Quantity: 1 Refills: 0 Ordered: 12-Apr-2022 Jing Campbell DO Start : 12-Apr-2022 ActiveStart: 86-91-5189reubbtLHOCZYMrqmuj 4 MG Oral Tablet Therapy Pack USE DIRECTED Quantity: 1 Refills: 0 Ordered: 29-Oct-2021 Jing Campbell DO Start : 29-Oct-2021 ActiveMultivitamin Oral Tablet (10 sources)Start: 53-53-9077izrw 1 tablet by mouth once dailyMultivitamin Oral Tablet TAKE 1 TABLET DAILY. Quantity: 0 Refills: 0 Ordered: 20-Feb-2021 DO Start : 20-Feb-2021 Activepolyethylene glycol 3350 012276 mg / potassium chloride 2970 mg / sodium bicarbonate 6740 mg / sodium chloride 5860 mg / sodium sulfate 11675 mg powder for oral solution (2 sources)Osmotic LaxativeStart: 83-59-0109NsqvZbpe-G 236 GM Oral Solution Reconstituted Quantity: 4000 Refills: 0 Ordered: 01-May-2022 DO Start : 01-May-2022 ActivepredniSONE 10 mg oral tablet (10 sources)Start: 72-54-6261mozg 4 tablets by mouth once daily, then take 3 tablets by mouth once daily, then take 2 tablets bymouth once daily, then take 1 tablet by mouth once dailypredniSONE 10 MG Oral Tablet 4 po qd x 3 then 3 po qd x 3 then 2 o qd x 3 then 1 po qd x 3 Quantity: 30 Refills: 0 Ordered: 20-Feb-2021 Jing Campbell DO Start : 20-Feb-2021 ActiveStart: 90-51-9129lvhx 4 tablets by mouth once daily, then take 3 tablets by mouth once daily, then take 2 tablets bymouth once daily, then take 1 tablet by mouth once dailypredniSONE 10 MG Oral Tablet 4 po qd x 3 then 3 po qd x 3 then 2 o qd x 3 then 1 po qd x 3 Quantity: 30 Refills: 0 Ordered: 27-Dec-2020 Jing Campbell DO Start : 27-Dec-2020 ActiveStart: 80-91-9977jnmwvdEZMM 10 MG Oral Tablet 4 po qd x 2 then 3 po qd x 2 then2 po qd x 2 then 1 po qd x 2 Quantity: 20 Refills: 0 Jing Campbell DO Start : 10-Jul-2020 Activespironolactone 50 mg oral tablet (15 sources)Aldosterone AntagonistStart: 67-63-8360Rbnoloofvvtlsk 50 MG Oral Tablet TAKE ONE-HALF TABLET BY MOUTH DAILY FOR ONE WEEK THEN INCREASE TO ONE Quantity: 30 Refills: 0 Ordered: 21-Apr-2019 DO Start : 21-Apr-2019 Active topiramate 25 mg oral tablet (3 sources)Start: 03-28-2015 End: 49-02-3289kqpe 1 tablet by mouth twice dailytopiramate (TOPAMAX) 25 mg tablet Take 1 tablet by mouth twice daily. 0 03/28/2015 09/21/2024 Discontinued Comment on above:Take 1 tablet by mouth twice daily.tretinoin 0.25 mg/ml topical cream (13 sources)RetinoidStart: 53-33-0037Ljutrupiv 0.025 % External Cream Quantity: 45 Refills: 0 Ordered: 05-Sep-2020 DO Start : 05-Sep-2020 Activevitamin e 450 mg oral capsule (14 sources)Start: 20-72-3506dggy 1 capsule by mouth once dailyVitamin E 1000 UNIT Oral Capsule TAKE 1 CAPSULE BY MOUTH DAILY. 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 artery]22-12-5936OapqzwyGnhszjlc of urinary tract (6 sources)Kidney stone; Translations: [Calculus of kidney]Onset: 10-06-2023 EpisodicCancer of breast (10 sources)Malignant neoplasm of unspecified site of unspecified female breast; Translations: [Malignant neoplasm of central part of female breast]Onset: 610891-60-9143NbbozgeQvbgco of breast (20 sources)History of malignant neoplasm of breast; Translations: [Personal history of malignant neoplasm of breast]Onset: 03-25-2023 Resolved: 154520-99-9749DjemqkevToxpviun (20 sources)Bilateral cataracts; Translations: [Unspecified cataract]Onset: 669155-17-3171UijfcnkGecopzn obstructive pulmonary disease and bronchiectasis (2 sources)Bronchitis; Translations: [Bronchitis, not specified as acute or chronic]16-43-7050XnvzramyMlgkufgjrbmn of device; implant or graft (1 source)Capsular breast contracture of breast implant; Translations: [Capsular contracture of breast implant, initial encounter]88-64-6162Bwcpjiqt Complications of surgical procedures or medical care (16 sources)Postablative ovarian failure; Translations: [Postablative ovarian failure]Onset: 067087-64-3521HscamacEaahvmczea and other anemia (5 sources)Lrtqif51-06-4982UxyefjyfShpjtgonhdrot disorders (1 source)Word finding difficulty ; Translations: [Word finding difficulty] ChronicDisorders of lipid metabolism (2 sources)Hyperlipidemia, unspecified; Translations: [HYPERLIPIDEMIA UNSPECIFIED]Onset: 25-51-8097EfkowaiHgtqygeq of lower limb (7 sources)Closed fracture of patella; Translations: [Closed fracture of patella]Onset: 789443-63-1760MxylxiyySgmxvigzwzygpr ulcer (except hemorrhage) (5 sources)Peptic ulcer, site unspecified, unspecified as acute or chronic, without hemorrhage or perforation;Translations: [Peptic ulcer]Onset: 01-17-2023 22-16-7284JggkjkrNhqpwbvpmcxoh symptoms and ill-defined conditions (20 sources)Delay when starting to pass urine; Translations: [Urinary hesitancy] Onset: 53-64-3216DdvykqlxMzatbymk; including migraine (5 sources)Afhjqovw84-98-3379EgzdltltFiyfygvmxu disorders (20 sources)Postmenopausal bleeding; Translations: [Postmenopausal bleeding] Onset: 520983-09-4792OsnlwcnFibp disorders (1 source)Major depressive disorder, single episode, unspecified; Translations: [Major depressive disorder, single episode, unspecified]Onset: 49-08-6329Yywapvv Nonmalignant breast conditions (7 sources)Pain of breast; Translations: [Mastodynia]Onset: EpisodicNutritional deficiencies (20 sources)Vitamin D deficiency; Translations: [Unspecified vitamin D deficiency]Onset: 527382-01-3891SwrrvhiHszkjjbqixq deficiencies (8 sources)Iron deficiency; Translations: [Iron deficiency]Onset: 01-19-2024 17-27-1879AzzskazuSjtwoabjgtpzaa (20 sources)Arthritis; Translations: [Arthropathy, unspecified, site unspecified]Onset: 234717-65-2082RoiwihdZbwdqvikxosu (20 sources)Postmenopausal osteoporosis; Translations: [Senile osteoporosis] Onset: 845922-60-2997GtadmslGnlfm aftercare (20 sources)Patient encounter status; Translations: [Long-term (current) use of other medications]EpisodicOther aftercare (2 sources)nursing home (current) use of non-steroidal anti-inflammatories (NSAID); Translations: [nursing home (current) use of non-steroidal anti-inflammatories (NSAID)]Onset: 02-43-4589QalbbujzHwdcn and unspecified benign neoplasm (1 source)History of polyp of colon; Translations: [History of colon polyps] 01-82-7215XzfmioarEveyo connective tissue disease (20 sources)H/O: osteoarthritis; Translations: [Personal history of other musculoskeletal disorders]EpisodicOther diseases of bladder and urethra (8 sources)Urethral caruncle; Translations: [Urethral caruncle]Onset: 08-25-2023 EpisodicOther ear and sense organ disorders (5 sources)Hearing pvfo80-51-2406DtkyjytZuual eye disorders (4 sources)Dry eyes; Translations: [Dry eye syndrome of bilateral lacrimal glands]Onset: 525902-74-5254GghmpvikIfpkz female genital disorders (6 sources)Vaginal bleeding; Translations: [Other specified noninflammatory disorders of vagina]ChronicOther gastrointestinal disorders (20 sources)Alteration in bowel elimination; Translations: [Other symptoms involving digestive system]EpisodicOther nervous system disorders (19 sources)Numbness and tingling sensation of skin; Translations: [Disturbance of skin sensation]EpisodicOther nervous system disorders (2 sources)Impairment of balance; Translations: [Other symptoms involving nervous and musculoskeletal systems]EpisodicOther non-traumatic joint disorders (20 sources)Polyarthropathy; Translations: [Unspecified polyarthropathy or polyarthritis, site unspecified]Onset: 907375-71-4528BtmueslSnahu non- traumatic joint disorders (1 source)Knee pain; Translations: [Knee pain, bilateral]EpisodicOther non- traumatic joint disorders (4 sources)Pain in left knee; Translations: [PAIN IN LEFT KNEE]Onset: 11-28-2022 EpisodicOther nutritional; endocrine; and metabolic disorders (5 sources)Lipodystrophy; Translations: [Lipodystrophy, not elsewhere classified]Onset: 211267-19-4522ShgklddKaupn screening for suspected conditions (not mental disorders or infectious disease) (20 sources)Breast neoplasm screening status; Translations: [Other screening mammogram]04-25-8643CvucloqpIpswu skin disorders (2 sources)Other skin changes; Translations: [Other skin changes]Onset: 50-16-6155WtvkrqzsXegek upper respiratory disease (20 sources)Chronic rhinitis; Translations: [Chronic rhinitis]Onset: 09-05-2022 38-32-4271VkvtkpuQwkkw upper respiratory disease (20 sources)Allergic rhinitis; Translations: [Allergic rhinitis, cause unspecified]Onset: 480374-24-7711NlpiditTgfpo upper respiratory disease (1 source)Other seasonal allergic rhinitis; Translations: [Other seasonal allergic rhinitis]Onset: 92-87-0230QqrsrkkCjlijgausl and visceral atherosclerosis (10 sources)Peripheral vascular disease, unspecified; Translations: [Peripheral vascular disease, unspecified]Onset: 242591-38-6270OurkpzuLzamolaj codes; unclassified (20 sources)Sleep apnea; Translations: [Unspecified sleep apnea]Onset: 661351-33-6745FeompmlUtynhzrl codes; unclassified (19 sources)Symptom of head and neck region; Translations: [Other general symptoms]EpisodicResidual codes; unclassified (2 sources)Other specified postprocedural states; Translations: [Other specified postprocedural states]Onset: 83-73-7362WskvntvpIrayahqp codes; unclassified (4 sources)Estrogen receptor negative status [ER-]; Translations: [Estrogen receptor negative status (ER-)]Onset: 92-78-3509CddgjdwuKqeutobjx and history of mental health and substance abuse codes (20 sources)H/O: depression; Translations: [H/O: anxiety state]Onset: 08-25-2023 Resolved: 91-89-7898XsfaukpsYzkdehw on above:Depression;Spondylosis; intervertebral disc disorders; other back problems (15 sources)Cervical radiculopathy; Translations: [Disorder of lumbar disc] Onset: 886084-53-6380DqkadfuPbpnobh disorders (1 source)Nontoxic single thyroid nodule; Translations: [NONTOXIC SINGLE THYROID NODULE]Onset: 42-68-0677HyxeotiGhhikrynpmah (1 source)Unknown / UNK(Unknown)Onset: 11-75-6023Mmmddvkzmunf (1 source)Pain in left kneeOnset: 28-86-2504Etbwjmfdaift (3 sources)Trochanteric bursitis, left hip; Translations: [Trochanteric bursitis, left hip]Onset: 63-65-2086Jfxmumfslxdg (1 source)Trochanteric bursitis, right hipOnset: 96-75-2986Mcrydhsgxuby (1 source)Pain in right hipOnset: 15-13-6700Iprjomrzjwxa (1 source)Pain in left hipOnset: 20-21-8485Dyfwwxqktiwn (1 source)Other intervertebral disc degeneration, lumbar regionOnset: 05-07-2018 Unclassified (1 source)Pain in right kneeOnset: 40-57-2369Ufpftgtofwoh (1 source)Encounter for screening, unspecifiedOnset: 70-98-2920Smvcrnlgirgj (1 source)Toxic effect of unsp spider venom, accidental, initOnset: 05-07-2018 Unclassified (3 sources)CONTACT W/AND (SUSP) EXPOS COVID-19; Translations: [CONTACT W/AND (SUSP) EXPOS COVID-19]Onset: 81-70-2215Gbbfakfjttrl (1 source)COUGH, UNSPECIFIED; Translations: [COUGH, UNSPECIFIED]Onset: 41-60-4354Rlfaoua tract infections (6 sources)Urinary tract infectious disease; Translations: [Urinary tract infection, site not specified]Onset: 97-03-3985Oansuhux Past or Other Problems Problem ClassificationProblemDateDocumented DateEpisodic/ChronicAcute bronchitis (17 sources)Acute bronchitis; Translations: [Acute bronchitis]Onset: 09-05-2022 02-32-7039ZurcwkxqHexudandnw and other anemia (1 source)Anemia, unspecified; Translations: [ANEMIA UNSPECIFIED]Onset: 44-50-2519QmqsrgheLzpullru mellitus without complication (1 source)Other abnormal glucose; Translations: [OTHER ABNORMAL GLUCOSE]Onset: 90-96-8950HawmrbrgRynbuzol of mouth; excluding dental (20 sources)Geographic tongue; Translations: [Glossitis]Onset: 09-05-2022 54-95-4911HxcqtxpwG Codes: Fall (20 sources)Fall; Translations: [Unspecified fall]Onset: EpisodicExternal cause codes: Fall (1 source)Fall; Translations: [Fall]Fracture of neck of femur (hip) (20 sources)Fracture of greater trochanter; Translations: [Closed fracture of trochanteric section of neck of femur] Resolved: 38-70-5966LljaayhoLerwtltuybv (20 sources)Prolapsed internal hemorrhoids; Translations: [Hemorrhoids]Onset: 315806-71-0350KunbeytaVkwibqa and fatigue (4 sources)Other fatigue; Translations: [OTHER FATIGUE]Onset: 42-87-2816Vncimprt Nonspecific chest pain (20 sources)Pain of intercostal space; Translations: [Other chest pain]Onset: 392327-50-6146FivbbztvZjngu connective tissue disease (20 sources)Muscle weakness of limb; Translations: [Other musculoskeletal symptoms referable to limbs]Onset: 516578-87-7155OotyruqgOikut connective tissue disease (9 sources)Swelling of finger ; Translations: [Swelling of limb]Onset: 255597-23-9788OarwnqhsIwdsb diseases of bladder and urethra (16 sources)Prolapse of urethral mucosa; Translations: [Prolapsed urethral mucosa]Onset: 926273-23-4868LnzgnuucXmrhl female genital disorders (8 sources)History of gynecological disorder; Translations: [Personal history of other genital system and obstetric disorders] Resolved: 10-25-2576RemagqueIjefr gastrointestinal disorders (20 sources)Constipation; Translations: [Constipation, unspecified]Onset: 494201-08-6070BbrgfstzIcupt gastrointestinal disorders (4 sources)Altered bowel function; Translations: [Other symptoms involving digestive system]Onset: 928201-51-0766HhnbfxtrAvhua inflammatory condition of skin (20 sources)Prurigo simplex ; Translations: [Prurigo]Onset: EpisodicOther inflammatory condition of skin (1 source)Pruritic rash; Translations: [Other prurigo]Onset: 09-05-2022 01-04-0622IvvqcpwqJimtx injuries and conditions due to external causes (20 sources)Spider bite wound; Translations: [Toxic effect of venom]Onset: 043728-43-2624XpvcrekyIluuq lower respiratory disease (1 source)Pleurodynia; Translations: [PLEURODYNIA]Onset: 87-08-9780TqbyggmvOidws nervous system disorders (20 sources)Word finding difficulty ; Translations: [Mental and behavioral problems with communication [including speech]]Onset: EpisodicOther non-traumatic joint disorders (20 sources)Hip pain; Translations: [Pain in joint, pelvic region and thigh] Onset: 605028-16-2613YsvwtlmeMdlac non-traumatic joint disorders (20 sources)Pain in right knee; Translations: [Knee pain, bilateral]Onset: 439904-76-2168HubolxtjJxjaf nutritional; endocrine; and metabolic disorders (20 sources)Weight loss; Translations: [Loss of weight]Onset: 09-05-2022 79-73-1283FdsqivfjXrvvx nutritional; endocrine; and metabolic disorders (16 sources)Body mass index 25-29 - overweight; Translations: [Overweight]Onset: 768147-73-7232DonwxwutFggwa nutritional; endocrine; and metabolic disorders (1 source)Weight decreased; Translations: [Abnormal weight loss]Onset: 804442-42-6600SyodzoirDdbnv skin disorders (20 sources)Inflamed seborrheic keratosis; Translations: [Inflamed seborrheic keratosis]Onset: 899626-11-9274DlijtgmcMyaqt upper respiratory disease (1 source)Nasal congestion; Translations: [NASAL CONGESTION]Onset: 07-08-2022 EpisodicPneumonia (except that caused by tuberculosis or sexually transmitted disease) (20 sources)Pneumonia; Translations: [Pneumonia, organism unspecified]Onset: 395882-93-9037RczmcudtVweouijz codes; unclassified (20 sources)Memory impairment; Translations: [Memory loss]Onset: 09-05-2022 28-95-4668PdnuipddRgwwgbkp codes; unclassified (20 sources)Insomnia; Translations: [Insomnia, unspecified]Onset: 09-05-2022 76-52-4899XzadqylkMywetocw codes; unclassified (16 sources)History of hysterectomy for benign disease; Translations: [Acquired absence of both cervix and uterus]Onset: 473537-15-4670Gvixpihu Spondylosis; intervertebral disc disorders; other back problems (20 sources)Radiculopathy, cervical region; Translations: [Neck pain]Onset: 73-52-6888PbyhnpruOdzvrdicjkmr (1 source)M54.16 82450Ficjo: 00-68-0992Tdtyhjutqhuv (1 source)Patient encounter status; Translations: [Medication management] Unclassified (1 source)CONTACT W/AND (SUSP) EXPOS COVID-19; Translations: [CONTACT W/AND (SUSP) EXPOS COVID-19]Onset: 01-47-8323Xhaos infection (20 sources)Other specified viral infection; Translations: [Disease caused by 2019-nCoV]Onset: 513171-22-2397ZecijhjgBBDSQQV: Highlighted row has not occurred!Residual codes; unclassified (6 sources)DiseaseEpisodic Results Test NameValueInterpretationReference RangeFacilityAmbulatory Visit Summaryon 15-20-7562Nxltswkhha Visit SummaryAmbulatory Visit Summary BRIGITTE HIGH :1950 Visit Date:04/04/2025 Ambulatory Visit Instructions Your Diagnosis Urethral caruncle Incomplete bladder emptying History of UTI Kidney stones Former smoker Your Care Team Attending Physician - JORJE FIGUEROA, Star Villavicencio Primary Care Physician - KRISTYN DOUGHERTY CNP This Is Your Medications List Contact prescribing physician if questions or concerns aspirin (aspirin 81 mg oral capsule) calcium-vitamin D ciprofloxacin (Cipro 500 mg Tab) doxepin (doxepin 3 mg oral tablet) elderberry (elderberry oral liquid) multivitamin with iron rosuvastatin (rosuvastatin 5 mg Tab) Procedures Performed Cystoscopy (04/04/2025), Carpal tunnel release, CE - Cataract extraction, Extraction of wisdom tooth, History of total hysterectomy with bilateral salpingo-oophorectomy, Mastectomy, Procedure on back, Procedure on neck. Discharge Vitals Temperature (Temporal Artery) 37 ???C Heart Rate (Peripheral) 86 Respiratory Rate 16 Blood Pressure 138/84 Height 165 cm Height 65 in Weight 73.6 kg Weight 162.26 lb BMI 27.03 What to do next You Need to Schedule the Following Appointments Follow Up with JORJE FIGUEROA, JOLENE Rojas When: Where: [address] [place] [address] [place] [address] Medications What How Much When Instructions Unchanged aspirin (aspirin 81 mg oral capsule) 1 Capsules By Mouth Every 24 hours Contact prescribing physician if questions or concerns Unchanged calcium-vitamin D Contact prescribing physician if questions or concerns Unchanged ciprofloxacin (Cipro 500 mg Tab) 1 Tablets By Mouth Every day Take 1 tablet the day before the procedure and 1 tablet after the procedure Contact prescribing physician if questions or concerns Unchanged doxepin (doxepin 3 mg oral tablet) 1 Tablets Contact prescribing physician if questions or concerns Unchanged elderberry (elderberry oral liquid) Contact prescribing physician if questions or concerns Unchanged multivitamin with iron Contact prescribing physician if questions or concerns Unchanged rosuvastatin (rosuvastatin 5 mg Tab) 1 Tablets Contact prescribing physician if questionsor concerns Medications and Immunizations Administered Given lidocaine Top [...] including vitamins, herbs, eye drops, creams, and qhoq-lfu-plugyjs medicines. ??? Any problems you or family [...] such as aspirin and ibuprofen. These medicines (more content not included)...[facility] 19-92-4476Gcqpsxhce Reminders From: Daniella Green To: CLAUDY Recinos; Sent: 04/04/2025 10:05:54 EDT Show up: 12/26/2025 10:05:00 EDT Subject: CYSTO- 1 YR Due Date/Time: 01/23/2026 10:05:00 EDT Reminder/Recall PATIENT IS DUE IN MAR 2026 FOR 1 YEAR [facility]ONormalM[facility] Office/Clinic Noteon 53-50-4055Lpinuxz Office/Clinic NoteUrology Office/Clinic Note Chief Complaint cystoscopy HPI Staff Pt is a 74 year old female here for 6 month cysto History of Present Illness Tests reviewed: reviewed op note I have reviewed the previous health record [...] See HPI. Physical Exam Vitals & Measurements T: 37 ???C(Temporal Artery) HR: 86(Peripheral) RR: 16 BP: 138/84 HT: 65 in HT: 165 cm WT: 73.6 kg WT: 162.26 lb BMI: 27.03 General Appearance: alert , no acute distress, [...] the Cystoscope is introduced. The Urethra is: Slightly more regrowth of lesion on posterior and lateral aspects of urethral meatus, no inflammation or bleeding. The Bladder: No [...] without stromal invasion. 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 S/p Cysto 05/03/24 - Slight regrowth of lesion on posterior aspect of urethral meatus. No b.t. or stones. Moderate bladder trabeculations. [1] S/p Cysto 10/18/24 - Mild regrowth of lesion on posterior and lateral aspects of urethral meatus. No inflammation or bleeding. Pt had IO cysto wo complications today to check for further regrowth. Pt took prophylactic abx prior to procedure. Found to have slight regrowth again today. -Cysto in 1 yr to reevaluate 2. Incomplete bladder emptying (R33.9: Retention of urine, unspecified) PVR 08/25/23 - [address] AP wo con 08/26/23 [facility] - Moderate fluid distention of bladder. No abnormalities. [2] 3. History of UTI (Z87.440: Personal history of urinary (tract) infections) Hx of breast cancer, tx'd w/ mastectomy. Tried estrogen cream and hormone cream but had SE of irritation on hormone replacement therapy. [3] 4. Kidney stones (N20.0: Calculus of kidney) CT AP wo con 08/26/23 [facility] - Punctate bilateral nonobstructing nephrolithiasis. No hydro. [4] 5. Former smoker (Z87.891: Personal history of nicotine dependence) Quit at age 56. Risk factor for urothelial ca. [5] Follow-up With When Contact Information JORJE FIGUEROA, Star Villavicencio, URL [address] [place] [address] [place] [address] Additional Instructions: cysto in 1 yr Patient Education Cystoscopy Pari Liang, personally scribed for Dr. Recinos on 04/04/2025 08:26:55. . Documentation recorded by the scribePari, accurately reflects the services(s) I performed and decisions made by me. Authenticated by Dr. Recinos on 04/04/2025 08:28:03. Problem List/Past Medical History Ongoing Anemia Arthritis Deafness Flank pain Former smoker Headache History of UTI Hx of breast cancer Incomplete bladder emptying Kidney stones Urethral caruncle UTI (urinary tract infection) Historical No qualifying data Procedure/Surgical History Cystoscopy (04/04/2025), Carpal tunnel release, CE - Cataract extraction, Extraction of wisdom tooth, History of total hysterectomy with bilateral salpingo-oophorectomy, Mastectomy, Procedure on back, Procedure on neck. Medications aspirin 81 mg ora (more content not included)...[facility] HospitalComment on above:Result Comment: Electronically Signed By: Star RECINOS MD\.br\Date and Time Signed: 04/04/25 08:28 EDT\.br\Electronically Co- Signed By: Pari Anton\.br\Date and Time Co-Signed: 04/04/25 08:27 EDTCBC W Auto Differential panel (Bld)on 13-40-3301Ggzqmzjdk (Bld) [#/Vol]0.05 x10*3/uL Normal0.00-0.10UnProMedica Defiance Regional HospitalComment on above: Performed By: #### [id number] #### SERJIO LINARES ([id number]) [facility] ([facility]) [address] [place] [address] [address] [place] [address]Gorwtwctn/100 WBC (Bld)0.9 %Normal0.0-2.0UnProMedica Defiance Regional HospitalComment on above:Performed By: #### 82886-4 #### SERJIO LINARES ([id number]) [facility] ([facility]) [address] [place] [address] ARTURO THOMAS 16784Fvmxnxuupxr (Bld) [#/Vol]0.16 x10*3/uLNormal0.00-0.40 [facility] HospitalComment on above:Performed By: #### 06191-5 #### SERJIO LINARES ([id number]) [facility] ([facility]) [address] [place] [address] ARTURO THOMAS 21974Bvzcelyuind/100 WBC (Bld)2.8 %Normal0.0-6.0The [facility] HospitalComment on above:Performed By: #### 14989-6 #### SERJIO LINARES ([id number]) [facility] ([facility]) [address] [place] [address] ARTURO THOMAS 70469Wreykfbjlmx distribution width (RBC) [Ratio]13.3 %Normal 11.5-14.5The [facility] HospitalComment on above:Performed By: #### 01425-3 #### SERJIO LINARES ([id number]) [facility] ([facility]) [address] [place] [address] ARTURO THOMAS 57084Gmdcxnkevn (Bld) [Volume fraction]38.2 %Ozuttz35.0-46.0 [facility] HospitalComment on above:Performed By: #### 67893-1 #### SERJIO LINARES ([id number]) [facility] ([facility]) [address] [place] [address] ARTURO THOMAS 63494Eaybhhnqgv (Bld) [Mass/Vol]12.4 g/oNRunfsl33.0-16.0The [facility] HospitalComment on above:Performed By: #### 84992-8 #### SERJIO LINARES ([id number]) [facility] ([facility]) [address] [place] [address] ARTURO THOMAS 13548Rhcxfejd granulocytes (Bld) [#/Vol]0.00 x10*3/uLNormal 0.00-0.50[facility] HospitalComment on above:Performed By: #### 62001-9 #### SERJIO LINARES ([id number]) [facility] ([facility]) [address] [place] [address] ARTURO THOMAS 98105Jomgjwge granulocytes/100 WBC (Bld)0.0 %Normal0.0-0.9 [facility] HospitalComment on above:Result Comment: Immature Granulocyte Count (IG) includes promyelocytes, myelocytes and metamyelocytes but does not include bands. Percent differential counts (%) should be interpreted in the context of the absolute cell counts (cells/UL). Performed By: #### 05241-2 #### SERJIO LINARES ([id number]) [facility] ([facility]) [address] [place] [address] [address] [place] [address]Oajhlsbhqbb (Bld) [#/Vol]1.79 x10*3/uLNormal0.80-3.00 [facility] HospitalComment on above:Performed By: #### 78077-7 #### SERJIO LINARES ([id number]) [facility] ([facility]) [address] [place] [address] DR [place] [address]Xlncpukihtt/100 WBC (Bld)31.4 %Njnmqu27.0-44.0The [facility] HospitalComment on above:Performed By: #### 35143-4 #### SERJIO LINARES ([id number]) [facility] ([facility]) [address] [place] [address] DR SERR[place]O [place] [address]7610IKA (RBC) [Entitic mass]30.5 lwWievxy41.0-34.0The [facility] HospitalComment on above:Performed By: #### 14783-2 #### SERJIO LINARES ([id number]) [facility] ([facility]) [address] [place] [address] DR [place] [address]VLLZ (RBC) [Mass/Vol]32.5 g/cZUtscwk75.0-36.0The [facility] HospitalComment on above:Performed By: #### 43070-7 #### SERJIO LINARES ([id number]) [facility] ([facility]) [address] [place] [address] DR [place]O [place] [address]FDI (RBC) [Entitic vol]94 bTEeavlx27-878UncyrzzzlmThe Jewish HospitalComment on above:Performed By: #### 55298-5 #### SERJIO LINARES ([id number]) [facility] ([facility]) [address] [place] [address] ARTURO THOMAS 22111Htkbqxkae (Bld) [#/Vol]0.39 x10*3/uLNormal0.05-0.80[facility] HospitalComment on above:Performed By: #### 76483-6 #### SERJIO LINARES ([id number]) [facility] ([facility]) [address] [place] [address] ARTURO THOMAS 71901Mdgayxpix/100 WBC (Bld)6.8 %Normal2.0-10.0The [facility] HospitalComment on above:Performed By: #### 33563-0 #### SERJIO LINARES ([id number]) [facility] ([facility]) [address] [place] [address] DR [place] [address]Nigopqgbrul (Bld) [#/Vol]3.31 x10*3/uLNormal1.60-5.50 [facility] HospitalComment on above:Result Comment: Percent differential counts (%) should be interpreted in the context of the absolute cell counts (cells/uL).Performed By: #### 44256-0 #### SERJIO LINARES ([id number]) [facility] ([facility]) [address] [place] [address] ARTURO THOMAS 72359Mfnrjrdqiyg/100 WBC (Bld)58.1 %Pjypaq52.0-80.0The [facility] HospitalComment on above:Performed By: #### 16023-5 #### SERJIO LINARES ([id number]) [facility] ([facility]) [address] [place] [address] ARTURO THOMAS 43765Xnkzanbxu (Bld) [#/Vol]237 x10*3/mUAfgmii073-745FravpdqposProMedica Defiance Regional HospitalComment on above:Performed By: #### 27047-7 #### SERJIO LINARES ([id number]) [facility] ([facility]) [address] [place] [address] [address] [place] [address]XTD (Bld) [#/Vol]4.07 x10*6/uLNormal4.00-5.20The [facility] HospitalComment on above:Performed By: #### 63571-7 #### SERJIO LINARES ([id number]) [facility] ([facility]) [address] [place] [address] DR [place] [address]XZT (Bld) [#/Vol]5.7 x10*3/uLNormal4.4-11.3The [facility] HospitalComment on above:Performed By: #### 38768-8 #### SERJIO LINARES ([id number]) [facility] ([facility]) [address] [place] [address] DR [place] [address]Iqmgyk Ag 27-29on 38-15-5801Qzgrds Ag - Qn43.5 [arb'U]/mL High0.0-38.6The Jewish HospitalComment on above:Order Comment: CA 27.29 testing is performed by chemiluminescent immunoassay using the [employer]. Values obtained with different analytic methods cannot be used interchangeably. Serum CA 27.29 measurement is intended for use as an aid in monitoring patients previously treated for Stage II or Stage III breast cancer. This assay is not intended for creening or diagnosis of cancer in the general population. The results must not be used as the sole means for clinical diagnosisor patient management decisions.Performed By: #### 10568-5 #### SHA Gould ([id number]) [facility] ([facility]) [address] [place] [address]Zwrhifrgzjfko metabolic 2000 panelon 10-20-9418Nohhxej BCP dye [Mass/Vol]4.3 g/dLNormal3.4-5.0[facility] Comment on above:Performed By: #### 18901-1 #### SERJIO LINARES ([id number]) [facility] ([facility]) [address] [place] [address] DR [place]O [place] [address]DLO [Catalytic activity/Vol]68 U/PNlnlfh24-016QhvgdfnennProMedica Defiance Regional HospitalComment on above:Performed By: #### 34844-4 #### SERJIO LINARES ([id number]) [facility] ([facility]) [address] [place] [address] DR [place] [address]OIX With P-5'-P [Catalytic activity/Vol]21 U/LNormal7-45 The [facility] HospitalComment on above:Result Comment: Patients treated with Sulfasalazine may generate falsely decreased results for ALT.Performed By: #### 59211-4 #### SERJIO LINARES ([id number]) [facility] ([facility]) [address] [place] [address] DR [place] [address]Kjdcg gap [Moles/Vol]12 mmol/WDxtbrr45-19ZbgsalorayThe Jewish HospitalComment on above:Performed By: #### 98079-3 #### SERJIO LINARES ([id number]) [facility] ([facility]) [address] [place] [address] [address] [place] [address]VSJ With P-5'-P [Catalytic activity/Vol]20 U/LNormal9-39 The [facility] HospitalComment on above:Performed By: #### 93323-3 #### SERJIO LINARES ([id number]) [facility] ([facility]) [address] [place] [address] [address] [place] [address]Muxmkjnfa [Mass/Vol]0.4 mg/dLNormal0.0-1.2The [facility] HospitalComment on above:Performed By: #### 39287-2 #### SERJIO LINARES ([id number]) [facility] ([facility]) [address] [place] [address] ARTURO THOMAS 53468Ugeqhvw [Mass/Vol]9.3 mg/dLNormal8.6-10.3The [facility] HospitalComment on above:Performed By: #### 99848-6 #### SERJIO LINARES ([id number]) [facility] ([facility]) [id number] [place] [address] [address] [place] [address]Kuzuzjos [Moles/Vol]109 mmol/XDhdc24-180LgftczmijtThe Jewish HospitalComment on above:Performed By: #### 53637-0 #### SERJIO LINARES ([id number]) [facility] ([facility]) [id number] [place] [address] [address] [place] [address]XA4 [Moles/Vol]26 mmol/CQdombh28-31BepcgzvpezThe Jewish HospitalComment on above:Performed By: #### 21226-6 #### SERJIO LINARES ([id number]) [facility] ([facility]) [address] [place] [address] DR [place] [address]Uarzkgeioj [Mass/Vol]0.56 mg/dLNormal0.50-1.05The [facility] HospitalComment on above:Performed By: #### 60682-7 #### SERJIO LINARES ([id number]) [facility] ([facility]) [address] [place] [address] [address] [place] [address]MKP/1.73 sq M.predicted MDRD (S/P/Bld) [Vol rate/Area] mL/min/{1.73_m2}Normal>60The Jewish HospitalComment on above:Result Comment: Calculations of estimated GFR are performed using the 2020 CKD-EPI Study Refit equation without the race variable for the IDMS-Traceable creatinine methods. https://jasn.asnjournals.org/content/early//ASN.8382400328Zxpcfkssc By: #### 59053-1 #### SERJIO LINARES ([id number]) [facility] ([facility]) [address] [place] [address] ARTURO THOMAS 894[address]Hhprarc [Mass/Vol]106 mg/jFMyst30-73WftgxevwyoThe Jewish HospitalComment on above:Performed By: #### 69641-5 #### SERJIO LINARES ([id number]) [facility] ([facility]) [address] [place] [address] ARTURO THOMAS 644[address]Ucwalktul [Moles/Vol]3.2 mmol/LLow3.5-5.3The [facility] HospitalComment on above:Performed By: #### 36903-4 #### SERJIO LINARES ([id number]) [facility] ([facility]) [address] [place] [address] ARTURO THOMAS 399[address]Jpejsyg [Mass/Vol]6.9 g/dLNormal6.4-8.2The [facility] HospitalComment on above:Performed By: #### 95588-9 #### SERJIO LINARES ([id number]) [facility] ([facility]) [address] [place] [address] ARTURO THOMAS 74419Wftjxr [Moles/Vol]144 mmol/LNpolqv679-625MwgchpafhiProMedica Defiance Regional HospitalComment on above:Performed By: #### 88880-7 #### SERJIO LINARES ([id number]) [facility] ([facility]) [address] [place] [address] ARTURO THOMAS [address]Keus nitrogen [Mass/Vol]22 mg/dLNormal6-23UnProMedica Defiance Regional HospitalComment on above:Performed By: #### 31145-0 #### SERJIO LINARES ([id number]) [facility] ([facility]) [address] [place] [address] ARTURO THOMAS [address]Fkdfxqsznn 22-43-5331Jnxcgjbc [Mass/Vol]59 ng/mLNormal8-150 The [facility] HospitalComment on above:Performed By: #### 2276-4 #### SERJIO LINARES ([id number]) [facility] ([facility]) [address] [address] ARTURO FRANCO [address]Dzea and Iron binding capacity panelon 86-72-7770Dkko [Mass/Vol]59 ug/jQOcxiqx25-940AnlwodvscfThe Jewish Hospital Comment on above:Performed By: #### 36236-2 #### SERJIO LINARES ([id number]) [facility] ([facility] [address] [place], [place] [address]Hwbi binding capacity [Mass/Vol]337 ug/dPCcvmuu123-496 The [facility] HospitalComment on above:Performed By: #### 72646-3 #### SERJIO LINARES (63952) [facility] ([facility]) [address] [place], [place] [address]Smza binding capacity.unsaturated [Mass/Vol]278 ug/dLNormal 110-370The Jewish HospitalComment on above:Performed By: #### 29593-0 #### SERJIO LINARES (37362) [facility] ([facility]) [address] [place], [place] [address]Anwx saturation [Mass fraction]18 %Vgz27-22QknknggenbThe Jewish HospitalComment on above:Performed By: #### 66897-9 #### SERJIO LINARES ([id number]) [facility] ([facility]) [address] [place], [place] [address]KCH Breast - right screeningon 23-15[place]38[place] [address] Mammography Report Signed Patient: BRIGITTE HIGH MR#: [id number] : 1950 Acct:[id number] Age/Sex: 74 / F ADM Date: 12/24/24 Loc: MAMMO Attending Dr: Danielito Morales D.O. Ordering Physician: Danielito Morales D.O. Results: Date of Service: 12/24/24 Follow Up: Procedure(s): MM tomosynthesis screening RT Accession Number(s): [id number] cc: KRISTYN DOUGHERTY ; Danielito Morales D.O. Patient Name: BRIGITTE HIGH MR#: [id number] : 1950 Exam Date: 12/24/2024 Ordering Doctor: [...] colon cancer at age 53. LOCATION: [facility] BREAST COMPOSITION: The breasts [...] Signed By: 12/24/24 1009 DD/ 1009 TD/TT: Weigher And Grader:TBHRadiology, Radiologist, - 12/24/2024 [place] [address] Mammography Report Signed Patient: BRIGITTE HIGH MR#: [id number] : 1950 Acct:[id number] Age/Sex: 74 / F ADM Date: 12/24/24 Loc: MAMMO Attending Dr: Danielito Morales D.O. Ordering Physician: Danielito Morales D.O. Results: Date of Service: 12/24/24 Follow Up: Procedure(s): MM tomosynthesis screening RT Accession Number(s): [id number] cc: KRISTYN DOUGHERTY ; Danielito Morales D.O. Patient Name: BRIGITTE HIGH MR#: [id number] : 1950 Exam Date: 12/24/2024 Ordering Doctor: [...] colon cancer at age 53. LOCATION: [facility] BREAST COMPOSITION: The breasts [...] Signed By: 12/24/24 1009 DD/ 1009 TD/TT: Weigher And Grader: YUDELKA HealthcareRadiology Study observation (narrative)[facility] InstituteDBT Breast - right screeningOrdered By: Radiologist Radiology on 08-60-8666WYKV INTEX Program Work Phone: ambulatory Visit Summaryon 98-40-2546Vajbaasgwa Visit SummaryAmbulatory Visit Summary BRIGITTE HIGH :1950 Visit Date:10/18/2024 [...] Star RECINOS MD Where: [facility] [place] [address] [place] [address]- You Need to Schedule the Following Appointments Follow Up with Star RECINOS MD, URL When: Where: [facility] [address], [place] [phone] Medications What How Much When Instructions Unchanged [...] including vitamins, herbs, eye drops, creams, and sqnf-tpa-zysvsmj medicines. ??? Any problems you or family [...] thinners. ??? Taking medic (more content not included)...[facility] Urology Office/Clinic Noteon 96-99-6707Tvcmmms Office/Clinic NoteUrology Office/Clinic Note Chief Complaint cystoscopy HPI Staff [...] without stromal invasion. Second opinion path from [facility] did not have any discrepancy between [...] [facility] [address], [place] [address] [phone] Additional Instructions: 6 mos cysto Patient Education [...] oral tablet, extended r (more content not included)...Normal [facility] HospitalComment on above:Result Comment: Electronically Signed By: Star RECINOS MD\.br\Date and Time Signed: 10/18/24 09:11 EDT\.br\Electronically Co-Signed By: Pari Anton\.br\Date and Time Co-Signed: 10/18/24 09:07 EDTReminderson 64-49-1095HsgjekmrfQdhkuyoae From: Daniella Green To: EU - Recalls Jorje; Sent: 05/20/2024 16:30:34 EDT Show up: 08/28/2024 16:30:00 EST Subject: cysto, 6 mo Due Date/Time: 09/20/2024 16:30:00 EST Reminder/Recall Patient needs sched for 6 month cysto in October 2024, pt prefers [facility] l/m on cell .LG l/m on cell .LG Patient called back, sched for 11/15/[address] [facility].LGNoSelect Medical [facility], AvonPlastic Surgery Visit Reporton 73-08-8885Bnmwndq Surgery Visit Report [facility] Plastic Reconstructive Surgery [address], [address] [place] [id number] OFFICE VISIT Date of Service: 06/02/24 MR#: [id number] Acct: [id number] Name: BRIGITTE HIGH Rep #: [id number] : 1950 Provider: Dr. Jadyn mccall MD Age/Sex: 73/F Location: [facility] Status: Signed Intake Vital Signs 04/21/24 [...] PO Q6H PRN pain 01/20/24 06/02/24 History iodzfoojrdfm-Ay-pcvs-minerals 1 tab PO DAILY 01/20/24 06/02/24 History vitamin C 45 mg-zinc citrate 3.75 1 tab PO DAILY 01/20/24 06/02/24 History mg-elderberry 50 mg chewable tablet ([employer]) calcium 600 mg (as 1 tab PO [...] of reduction surgery of right breast Z98.890 [facility] Medical History Wears hearing aid [...] needed. 06/02/24 1748 Date [facility] Chavez [facility] Signature: Date (if applicable) CC:[facility] HospitalPl[facility] Surgery Visit Reporton 05-05-2024 [facility]astic [facility] [address], [address] [place] [address] OFFICE VISIT Date of Service: 05/05/24 MR#: [id number] Acct: [id number] Name: BRIGITTE HIGH Rep #: [id number] : 1950 Provider: Dr. Jadyn mccall MD Age/Sex: 73/F [facility] Status: Signed Intake Vital Signs 04/21/24 [...] PO Q6H PRN pain 01/20/24 04/21/24 History tqpdrhibkaok-Vh-zzsq-minerals 1 tab PO DAILY 01/20/24 05/05/24 History vitamin C 45 mg-zinc citrate 3.75 1 tab PO DAILY 01/20/24 05/05/24 History mg-elderberry 50 mg chewable tablet ([employer]) calcium 600 mg (as 1 tab PO [...] healing T14.8XXD Status post breast reconstruction Z98.890 [facility] Medical History Wears hearing aid [...] Additional Comments: Follow-up in 1 month 05/05/24 9687 Date Jadyn Chavez MD [facility] Signature: Date (if applicable) CC:[facility] HospitalPlastic Surgery Visit Reporton 04-21-2024 Plastic [facility] [address], [address] [place] [address] OFFICE VISIT Date of Service: 04/21/24 MR#: [id number] Acct: [id number] Name: BRIGITTE HIGH Rep #: [id number] : 1950 Provider: Dr. Jadyn mccall MD Age/Sex: 73/F Location: [facility] Status: Signed Intake Vital Signs 03/31/24 [...] PO Q6H PRN pain 01/20/24 04/21/24 History jtxobnzoxvdj-Jz-qmuk-minerals 1 tab PO DAILY 01/20/24 04/21/24 History vitamin C 45 mg-zinc citrate 3.75 1 tab PO DAILY 01/20/24 04/21/24 History mg-elderberry 50 mg chewable tablet ([employer]) calcium carbonate 600 mg-vitamin 1 tab PO [...] healing T14.8XXD Status post breast reconstruction Z98.890 [facility] Medical History Wears hearing aid [...] Additional Comments: Follow-up in 2 weeks 04/21/24 2119 Date [facility] Signature: Date (if applicable) CC:[facility] HospitalPl[facility] Surgery Visit Reporton 03-31-2024 [facility] [address] [place] [address], [address] [place] [address] OFFICE VISIT Date of Service: 03/31/24 MR#: [id number] Acct: [id number] Name: BRIGITTE HIGH Rep #: [id number] : 1950 Provider: Dr. Jadyn mccall MD Age/Sex: 73/F Location: [facility] Status: Signed Intake Vital Signs 03/17/24 [...] PO Q6H PRN pain 01/20/24 03/31/24 History zdsomvdysieb-Zu-lmuw-minerals 1 tab PO DAILY 01/20/24 03/31/24 History vitamin C 45 mg-zinc citrate 3.75 1 tab PO DAILY 01/20/24 03/31/24 History mg-elderberry 50 mg chewable tablet ([employer]) calcium carbonate 600 mg-vitamin 1 tab PO [...] of reduction surgery of right breast Z98.890 [facility] Medical History Wears hearing aid [...] weeks. 03/31/24 1646 Date Jadyn Chavez MD [facility] Signature: Date (if applicable) CC:[facility] HospitalPl[facility] Surgery Visit Reporton 03-17-2024 [facility] [address], [address] [place], [place] [address] OFFICE VISIT Date of Service: 03/17/24 MR#: [id number] Acct: [id number] Name: BRIGITTE HIGH Rep #: [id number] : 1950 Provider: Dr. Jadyn mccall MD Age/Sex: 73/F Location: [facility] Status: Signed Intake Vital Signs 01/20/24 [...] PO Q6H PRN pain 01/20/24 03/17/24 History fbvorblixham-Wf-bxnm-minerals 1 tab PO DAILY 01/20/24 03/17/24 History vitamin C 45 mg-zinc citrate 3.75 1 tab PO DAILY 01/20/24 03/17/24 History mg-elderberry 50 mg chewable tablet ([employer]) calcium carbonate 600 mg-vitamin 1 tab PO [...] Op Diagnoses Status post breast reconstruction Z98.890 [facility] Medical History Wears hearing aid [...] interim with any questions or problems 03/17/24 1987 Date Jadyn Chavez MD [employer] Signature: Date (if applicable) CC:[facility] HospitalPl[facility] Surgery Visit Reporton 03-10-2024 [facility]astic [facility] [address], [address] [place] [address] OFFICE VISIT Date of Service: 03/10/24 MR#: [id number] Acct: [id number] Name: BRIGITTE HIGH Rep #: [id number] : 1950 Provider: Dr. Jadyn mccall MD Age/Sex: 73/F Location: [facility] Status: Signed Intake Vital Signs 01/20/24 [...] PO Q6H PRN pain 01/20/24 03/10/24 History rffpbtmioclx-An-uupp-minerals 1 tab PO DAILY 01/20/24 03/10/24 History vitamin C 45 mg-zinc citrate 3.75 1 tab PO DAILY 01/20/24 03/10/24 History mg-elderberry 50 mg chewable tablet ([employer]) calcium carbonate 600 mg-vitamin 1 tab PO [...] incision on the left lateral chest is well- approximated. Xeroform is placed on both sides. An ABD is placed over the left lateral incision to pad this from her bra. Dry gauze is placed on the right breast. She is placed vascular surgery bra. Limitations were reviewed with her including maintaining an elevated position and avoiding overusing her arms. Coding Level of Care Code Global Post Op Diagnoses Breast asymmetry between [place] breast and reconstructed breast N65.1 Status post left breast reconstruction Z98.890 History of reduction surgery of right breast Z98.890 [facility] Medical History Wears hearing aid [...] Assessment and Plan (1) Breast asymmetry between [place] breast and reconstructed breast: Status: Acute (2) Status post left breast reconstruction: Status: Acute (3) History of reduction surgery of right breast: Status: Acute Plan Details Additional Comments: She is to follow-up in 1 week for recheck. She is encouraged to call in the interim with any problems. Her limitations were reviewed with her and her daughter 02/25 (more content not included)...NormalScci Hospital LimaDischarge Instructionon 53-58-4978Xaspdwvfn InstructionRush County Memorial Hospital Medical Records Department [address] [place] [address] Instructions for Home/Discharge Instructions 03/04/24 1123 MR#: [id number] Acct: [id number] Name: BRIGITTE HIGH Rep #: [id number] : 1950 73 From: Jadyn Chavez MD PCP: DOUG Brown Status:REG [facility] Discharge Instructions Dressing / Incision Additional Dressing/Incision Instructions:: Follow instructions given in the office. Maintain a recliner position. Leave the dressings in place until seen in the office. Follow Up Care Please Follow Up With: Jadyn Chavez MD Test Results: Test results from this visit will be discussed in further detail at your follow- up appointment, if applicable. Discharge Plan Admission Attending Provider: Jadyn Chavez Primary Care Provider: Kristyn Dougherty Instructions Print Language: Ecuadorean Discharge Orders/Prescriptions Prescriptions: No Action ibuprofen 600 mg tablet 600 mg PO Q6H PRN (Reason: pain) gtlgasrawbeo-Rq-mwms-minerals Tablet 1 tab PO DAILY Neuriva Original 100-100 mg capsule 1 cap PO DAILY [facility] 45-3.75-50 mg tablet,chewable 1 tab PO [...] Care 03/04/24 1124 Jadyn Chavez MD CC: REINFORCEMENT MAKER-C Kristyn Dougherty SignedNormalWOhio State East HospitalDischarge InstructionWRegency Hospital [facility] Medical Records Department [address] [place] [address] Instructions for Home/Discharge Instructions 03/04/24 1121 MR#: [id number] Acct: [id number] Name: BRIGITTE HIGH Rep #: [id number] : 1950 73 From: Jadyn Chavez MD PCP: DOUG Brown Status:DEP [facility] Discharge Instructions Dressing / Incision Additional Dressing/Incision Instructions:: Follow instructions given in the office. Maintain a recliner position. Leave the dressings in place until seen in the office. Follow Up Care Please Follow Up With: Jadyn Chavez MD When: In 1 week Test Results: Test results from this visit will be discussed in further detail at your follow- up appointment, if applicable. Discharge Plan Admission Attending Provider: Jadyn Chavez Primary Care Provider: Kristyn Dougherty Instructions Print Language: Ecuadorean Discharge Orders/Prescriptions Prescriptions: No Action ibuprofen 600 mg tablet 600 mg PO Q6H PRN (Reason: pain) csjgotqiabjk-Px-skgs-minerals Tablet 1 tab PO DAILY Neuriva Original 100-100 mg capsule 1 cap PO DAILY [facility] 45-3.75-50 mg tablet,chewable 1 tab PO [...] Care 03/04/24 1333 Jadyn Chavez MD CC: REINFORCEMENT MAKER-C Kristyn Dougherty [place]/POSTOP.ANE 18-72-1105PU/POSTOP.[facility] Medical Records Department [address] [place] [address] Anesthesia Postop Eval I 03/04/24 1122 MR#: [id number] Acct: [id number] Name: BRIGITTE HIGH Rep #: [id number] : 1950 73 From: Hyun Hernandez PCP: DOUG Brown Status:REG SDC Y Race: C Location: [place] [address] Anesthesia: Postop Eval I Current Vital Signs [...] completed: Yes 03/04/24 1233 Date Hyun Hernandez Rosemarie Signature: Date CC: [facility] CenterMR/CRCYXHKT4ry 46-26-3269BI/POSTOPAN2 [facility] Medical Records Department [address] [place] [place] [address] Anesthesia Postop Eval II 03/04/24 1146 MR#: [id number] Acct: [id number] Name: BRIGITTE HIGH Rep #: [id number] : 1950 73 From: Julito Domingo MD PCP: DOUG Brown Status:REG SDC Y Race: C Location: AC03-1 Anesthesia Postop Eval I Sum Anesthesia Postop [...] No Vomiting: No 03/04/24 1146 Date Julito Ocasioignbo Signature: Date CC: SignedNormOhio Valley HospitalOperative Reporton 10-44-3353Irdhmjobq ReportWOhio State East Hospital [facility] System Medical Records Department [address] [place] [address] Operative Report 03/04/24 1124 MR#: [id number] Acct: [id number] Name: BRIGITTE HIGH Rep #: [id number] : 1950 73 From: Jadyn Chavez MD PCP: DOUG Brown Status:[facility] Location: [facility] Report of Operation Date of Procedure: 03/04/24 Pre-Operative Diagnosis: Asymmetry between the right [place] breast and the left reconstructed breast; Right [...] clips. This is further reinforced with some ofpkah-dq-bffqp Vicryl sutures. The skin edges were then [...] CC: DOUG Dougherty; Dr. Jadyn Chavez MD SignedNoThe [facility] of [facility] Specimen Level Franky 03-04-2024 Surgery Specimen Level IV Patient Age/Sex Location Account Attending Physician BRIGITTE HIGH 73/F [facility] [id number] Dr. Jadyn Chavez MD Specimen: [id number] Received: 03/04/24 Status: MEHREEN Maude Num: [id number] Spec Type: Lesion Subm Dr: Dr. Jadyn Chavez MD HEADER OPERATION: Right breast lift and revision left breast reconstruction PRE-OP DIAGNOSIS: Breast asymmetry between [place] breast and reconstructed breast, painful periwound skin, [...] Sections do not reveal any mass lesions. Financial Sales Manager sections are submitted in two cassettes. / 03/04/2024 TC:4 CPT:89843 Patient Age/Sex Location Account Attending Physician BRIGITTE HIGH 73/F [facility] [id number] Dr. Jadyn Chavez MD Signed (signature on file) Dr. Cy Sandhu MD 03/05/24 1101 NormalScci Hospital LimaComment on above:Performed By: #### PSUIV ####[facility] [address] [place], [address] Basic Metabolic Profile (BMP)on 06-97-4842ZCZ/CRE32.4 RATIO Qegy29-52PpqtwefRegency Hospital Toledo on above:Order Comment: pre surgery testingPerformed By: #### L300.4310, L500.2500, L300.3900, L100.0500 ####[facility] [address], [address] CA,Total9.3 mg/dLNormal8.5-10.1[facility] on above:Order Comment: pre surgery testingPerformed By: #### L300.4310, L500.2500, L300.3900, L100.0500 ####[facility] [address], [address] Chloride [Moles/Vol]109 mmol/SQknb24-076AhhjhbbRegency Hospital Toledo on above:Order Comment: pre surgery testingPerformed By: #### L300.4310, L500.2500, L300.3900, L100.0500 ####[facility] [address] [place], [address] BG7 [Moles/Vol]23.0 mmol/PUcslji30.0-32.0WOhio State East HospitalComment on above:Order Comment: pre surgery testingPerformed By: #### L300.4310, L500.2500, L300.3900, L100.0500 ####[facility] [address] [place], [address] Creatinine [Mass/Vol]0.68 mg/dLNormal0.55-1.02WOhio State East HospitalComment on above:Order Comment: pre surgery testingResult Comment: The validity of the calculated GFR GFRAA in patients over 70 years has not been determined. Clinical correlation is essential.Performed By: #### L300.4310, L500.2500, L300.3900, L100.0500 ####[facility] [address] [place], [address] EST GFR - AA109 mL/minNormal>60WOhio State East Hospital Comment on above:Order Comment: pre surgery testingResult Comment: GFR CalcPerformed By: #### L300.4310, L500.2500, L300.3900, L100.0500 ####[facility] [address] [place], [address] SKB7Tlpgua4-33Jyieoam Community HospitalComment on above:Order Comment: pre surgery testingPerformed By: #### L300.4310, L500.2500, L300.3900, L100.0500 ####[facility] [address] [place], [address] GFR/1.73 sq M.predicted among non-blacks MDRD (S/P/Bld) [Vol rate/Area]90 mL/min/{1.73_m2}Normal>60WOhio State East HospitalComment on above:Order Comment: pre surgery testingResult Comment: Non- GFR CalcPerformed By: #### L300.4310, L500.2500, L300.3900, L100.0500 ####[facility] [address] [place], [address] Glucose [Mass/Vol]104 mg/pNYrlwbk86-591QfmffchOhio State East HospitalComment on above:Order Comment: pre surgery testingResult Comment: Fasting Glucose result from 100 to 125 mg/dL suggests IMPAIRED HOMEOSTASIS per A.D.A. criteria.Performed By: #### L300.4310, L500.2500, L300.3900, L100.0500 ####[facility] [address] [place], [place], [address]Potassium [Moles/Vol]4.2 mmol/LNormal 3.5-5.1WOhio State East HospitalComment on above:Order Comment: pre surgery testingPerformed By: #### L300.4310, L500.2500, L300.3900, L100.0500 ####[facility] [address] [place], [address] Sodium [Moles/Vol]138 mmol/XFckvyk453-162YwxriidOhio State East HospitalComcaro center on above:Order Comment: pre surgery testingPerformed By: #### L300.4310, L500.2500, L300.3900, L100.0500 ####[facility] [address] [place], [address] Urea nitrogen [Mass/Vol]22 mg/dLHigh7-18WOhio State East HospitalComcaro center on above:Order Comment: pre surgery testingPerformed By: #### L300.4310, L500.2500, L300.3900, L100.0500 ####[facility] [address] [place], [address] WWN-Sputwdjy Blood Cnt No Diffon 18-29-6938Hdcrapwnwkn distribution width (RBC) [Ratio]13.8 % Yiqmpe44.6-14.6Scci Hospital LimaComment on above:Order Comment: Comments: pre surgery testingPerformed By: #### L300.4310, L500.2500, L300.3900, L100.0500 ####[facility] [address] [place], [address] Hematocrit (Bld) [Volume fraction]41.3 %Xzgykt42-60QaohuvpOhio State East HospitalComment on above:Order Comment: Comments: pre surgery testing Performed By: #### L300.4310, L500.2500, L300.3900, L100.0500 ####[facility] [address] [place], [address] Hemoglobin (Bld) [Mass/Vol]13.4 g/wKJcdctk70.0-15.0WOhio State East Hospital Comment on above:Order Comment: Comments: pre surgery testingPerformed By: #### L300.4310, L500.2500, L300.3900, L100.0500 ####[facility] [address] [place], [address] MCH (RBC) [Entitic mass]30.4 kfEwmwhj41.0-32.0WOhio State East HospitalComment on above:Order Comment: Comments: pre surgery testingPerformed By: #### L300.4310, L500.2500, L300.3900, L100.0500 ####[facility] [address] [place], [address] MCHC (RBC) [Mass/Vol]32.4 g/aEFhthqn21-51WzxykaeOhio State East HospitalComment on above:Order Comment: Comments: pre surgery testing Performed By: #### L300.4310, L500.2500, L300.3900, L100.0500 ####[facility] [address] [place], [address] MCV (RBC) [Entitic vol]93.7 xQSfefkh49-78AdiymmcOhio State East HospitalComcaro center on above: Order Comment: Comments: pre surgery testingPerformed By: #### L300.4310, L500.2500, L300.3900, L100.0500 ####[facility] [address] [place], [address] Platelet mean volume (Bld) [Entitic vol]9.4 fLNormal6.2-12.0WOhio State East HospitalComcaro center on above:Order Comment: Comments: pre surgery testingPerformed By: #### L300.4310, L500.2500, L300.3900, L100.0500 ####[facility] [address] [place], [address] Platelets (Bld) [#/Vol]268 10*3/bOMamkww502-565 [facility] on above:Order Comment: Comments: pre surgery testingPerformed By: #### L300.4310, L500.2500, L300.3900, L100.0500 ####[facility] [address] [place], [address] RBC (Bld) [#/Vol]4.41 10*6/uLNormal4.2-5.4[facility] on above:Order Comment: Comments: pre surgery testingPerformed By: #### L300.4310, L500.2500, L300.3900, L100.0500 ####[facility] [address] [place], [address] RDW SD47.8 biUddt61.1-43.9WOhio State East HospitalComcaro center on above:Order Comment: Comments: pre surgery testing Performed By: #### L300.4310, L500.2500, L300.3900, L100.0500 ####[facility] [address] [place], [phone] (Bld) [#/Vol]6.6 10*3/uLNormal4.4-11.0WOhio State East HospitalComment on above:Order Comment: Comments: pre surgery testingPerformed By: #### L300.4310, L500.2500, L300.3900, L100.0500 ####[facility] [address] [place], [address] Partial Thromboplast Timeon 02-18-2024 aPTT Coag (Bld) [Time]27.0 sEcpdkz39.1-36.2WOhio State East HospitalComment on above:Order Comment: Comments: pre surgery testingPerformed By: #### L300.4310, L500.2500, L300.3900, L100.0500 ####[facility] [address] [place], [address] Plastic Surgery Visit Reporton 74-92-3140Rjjviqs Surgery Visit ReportWClay County Medical Center Plastic Reconstructive Surgery [address], [address] [address] [place], [place] [address] OFFICE VISIT Date of Service: 02/18/24 MR#: [id number] Acct: [id number] Name: RBIGITTE HIGH Rep #: [id number] : 1950 Provider: Dr. Jadyn mccall MD Age/Sex: 73/F Location: [facility] [place] Status: Signed Intake Vital Signs 01/20/24 10:05 [...] mg PO Q6H PRN 01/20/24 02/18/24 History turiqruwgyva-Id-cbmp-minerals tab PO 01/20/24 02/18/24 History vitamin C 45 mg-zinc citrate 3.75 tab PO 01/20/24 02/18/24 History mg-elderberry 50 mg chewable tablet (Blu Homes) coffee extract 100 mg-phosphatidyl cap PO 02/04/24 02/18/24 History serine 100 mg capsule (Neuriva Original) lqirpucdty-BO-kxxsaoreekisv 6.25 ml PO 02/04/24 02/18/24 History mg-15 [...] She attends the appointmen (more content not included)...[facility] HospitalProthrombin Time w/INRon 02-18-2024 INR Coag (PPP) [Relative time]1.1 {INR}[facility] HospitalComment on above:Order Comment: Comments: pre surgery testingPerformed By: #### L300.4310, L500.2500, L300.3900, L100.0500 ####[facility] [address] [place], [address] PT Coag (PPP) [Time] 13.8 eQprdah70.7-14.9WOhio State East HospitalComment on above:Order Comment: Comments: pre surgery testingPerformed By: #### L300.4310, L500.2500, L300.3900, L100.0500 ####[facility] [address] [place], [place], [address] Plastic Surgery Visit Reporton 88-78-5192Kwyvssm Surgery Visit ReportWClay County Medical Center Plastic Reconstructive Surgery [address], [address] [place], [place] [address] OFFICE VISIT Date of Service: 02/04/24 MR#: [id number] Acct: [id number] Name: BRIGITTE HIGH Rep #: [id number] : 1950 Provider: Dr. 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 I [...] Painful periwound skin R23.8 Breast asymmetry between [place] breast and reconstructed breast N65.1 Ptosis of right breast N64.81 Status post left br (more content not included)...NormalWOhio State East HospitalPlastic Surgery Visit Reporton 90-49-5361Vzrpumq Surgery Visit Report [facility] Plastic Reconstructive Surgery [address], [address] [place] [address] OFFICE VISIT Date of Service: 01/20/24 MR#: [id number] Acct: [id number] Name: BRIGITTE HIGH Rep #: [id number] : 1950 Provider: Dr. Jadyn mccall MD Age/Sex: 73/F Location: [facility] Status: Signed Intake Vital Signs 01/20/24 [...] mg PO Q6H PRN 01/20/24 01/20/24 History cfswrtawamup-Gb-rmts-minerals tab PO 01/20/24 01/20/24 History vitamin C 45 mg-zinc citrate 3.75 tab PO 01/20/24 01/20/24 History mg-elderberry 50 mg chewable tablet (Blu [employer]) Have you fallen in the past year?: No Nurse's Note: pt here for left breast reconstruction/concern, [facility] (Updated 01/20/24 @ 10:37 [...] mastectomy. She had her initial surgery at [facility] and the second surgery at [facility]. She has a history of [...] intact. She has ptos (more content not included)...NormalWOhio State East HospitalXR DEXA AXIAL SKELETONon 10-86-3130[address] [address] XRay Report Signed Patient: BRIGITTE HIGH MR#: [id number] : 1950 Acct:[id number] Age/Sex: 73 / F ADM Date: 12/26/23 Loc: RAD Attending Dr: Danielito Morales D.O. Ordering Physician: Danielito Morales D.O. Date of Service: 12/26/23 Procedure(s): XR DEXA axial skeleton Accession Number(s): [id number] cc: KRISTYN DOUGHERTY ; Danielito Morales D.O. [address] [place] [address] Patient Name: BRIGITTE HIGH MRN: [id number] date: 1950 Sex: F Assigned Patient Location: [facility] Current Patient Location: [facility] Accession/Order Number: [id number] Exam Date: 12/26/2023 09:53 Report Date: 12/26/2023 11:59 At the request of: DANIELITO MORALES Procedure: XR DEXA axial skeleton EXAMINATION: [...] FRAX: Cannot be calculated. Electronically authenticated by: LUPIS OZUNA Date: 12/26/2023 11:59 Dictated By: Lupis Ozuna M.D. Signed By: 12/26/23 1202 DD/ 1159 TD/TT: Weigher And Grader:TBHRadiology, Radiologist, - 12/26/2023 [place] [address] XRay Report Signed Patient: BRIGITTE HIGH MR#: [id number] : 1950 Acct:[id number] Age/Sex: 73 / F ADM Date: 12/26/23 Loc: RAD Attending Dr: Danielito Morales D.O. Ordering Physician: Danielito Morales D.O. Date of Service: 12/26/23 Procedure(s): XR DEXA axial skeleton Accession Number(s): [id number] cc: KRISTYN DOUGHERTY ; Danielito Morales D.O. The [place] [id number] Patient Name: BRIGITTE HIGH MRN: [id number] date: 1950 Sex: F Assigned Patient Location: RAD Current Patient Location: RAD Accession/Order Number: [id number] Exam Date: 12/26/2023 09:53 Report Date: 12/26/2023 11:59 At the request of: DANIELITO MORALES Procedure: XR DEXA axial skeleton EXAMINATION: [...] FRAX: Cannot be calculated. Electronically authenticated by: LUPIS OZUNA Date: 12/26/2023 11:59 Dictated By: Lupis Ozuna M.D. Signed By: 12/26/23 1202 DD/ 1159 TD/TT: Weigher And Grader: YUDELKA HealthcareRadiology Study observation (narrative)NOMS HealthcareXR DEXA AXIAL SKELETONOrdered By: Radiologist Radiology on 68-94-2506DGFG Healthcare Work Phone: dbt Breast - right screeningon 67-57-4913[address] [address] Mammography Report Signed Patient: BRIGITTE HIGH MR#: [id number] : 1950 Acct:[id number] Age/Sex: 73 / F ADM Date: 12/24/23 Loc: MAMMO Attending Dr: Danielito Morales D.O. Ordering Physician: Danielito Morales D.O. Results: Date of Service: 12/24/23 Follow Up: Procedure(s): MM tomosynthesis screening RT Accession Number(s): [id number] cc: KRISTYN DOUGHERTY ; Danielito Morales D.O. Patient Name: BRIGITTE HIGH MR#: [id number] : 1950 Exam Date: 12/24/2023 Ordering Doctor: [...] colon cancer at age 53. LOCATION: [facility] BREAST COMPOSITION: The breasts [...] PALPABLE LUMP SHOULD BE BIOPSIED. Dictated by: Ildefonso Torres MD on 12/24/2023 at 13:03 Approved by: Ildefonso Torres MD on 12/24/2023 at 13:04 Dictated By: Ildefonso Torres M.D. Signed By: 12/24/23 1306 DD/ 1304 TD/TT: Weigher And Grader:TBHRadiology, RadiologistMD - 12/24/2023 [place] [address] Mammography Report Signed Patient: BRIGITTE HIGH MR#: [id number] : 1950 Acct:[id number] Age/Sex: 73 / F ADM Date: 12/24/23 Loc: MAMMO Attending Dr: Danielito Morales D.O. Ordering Physician: Danielito Morales D.O. Results: Date of Service: 12/24/23 Follow Up: Procedure(s): MM tomosynthesis screening RT Accession Number(s): [id number] cc: KRISTYN DOUGHERTY ; Danielito Morales D.O. Patient Name: BRIGITTE HIGH MR#: [id number] : 1950 Exam Date: 12/24/2023 Ordering Doctor: [...] colon cancer at age 53. LOCATION: [facility] BREAST COMPOSITION: The breasts [...] PALPABLE LUMP SHOULD BE BIOPSIED. Dictated by: Ildefonso Torres MD on 12/24/2023 at 13:03 Approved by: Ildefonso Torres MD on 12/24/2023 at 13:04 Dictated By: Ildefonso Torres M.D. Signed By: 12/24/23 1306 DD/ 1304 TD/TT: Weigher And Grader: YUDELKA HealthcareRadiology Study observation (narrative)NOMCynthia HealthcareDBT Breast - right screeningOrdered By: Radiologist Radiology on 17-13-1365ALQY [employer] [facility] Work Phone: SURGICAL PATHOLOGY REFERENCE LAB CONSULTon 10-08-2023 CASE REPORTNormWyandot Memorial Hospital on above:Order Comment: Specimen Type: FORMALIN-FIXED PARAFFIN-EMBEDDED TISSUE SPECIMEN Ordering Facility: [facility] Address: [address] [place] [id number] Comment: Surgical Pathology Report Case: [id number] Authorizing Provider: Star Recinos MD Collected: 10/08/2023 07:46 PM Ordering Location: [facility] Received: 10/08/2023 07:[address] [facility] Pathologist: Hema Ho MD Specimen: SLIDE(S), 4 SLIDES ([id number])Performed By: #### [id number] #### [facility] CLIA [id number] [address] [place] [address] STATES OF AMERICACLINICAL HISTORYCONSULT REQUESTEDNoMcCullough-Hyde Memorial Hospital on above:Order Comment: Specimen Type: FORMALIN-FIXED PARAFFIN-EMBEDDED TISSUE SPECIMEN Ordering Facility: [facility] Address: [address] [place], [place] [address]Performed By: #### [id number] #### [facility] CLIA [id number] [address] [place], [place] [address]DIAGNOSIS COMMENTNormal [facility] on above:Order Comment: Specimen Type: FORMALIN-FIXED PARAFFIN-EMBEDDED TISSUE SPECIMEN Ordering Facility: [facility] Address: [address] [place], [place] [address]Result Comment: No invasive component is found in the sample examined. P16 immunostain performed atthe referring institution is diffusely/strongly positive. Further, high-risk HPV CISH performed at the [facility] is positive. Laboratory Developed Test (LDT) Disclaimer: Performance characteristics of immunohistochemical, immunofluorescent and chromogenic in-situ hybridization tests have been determined by the performing laboratory within [facility]???s Silvio Martinez Pathology and Laboratory Medicine [place] ([facility], [facility], [facility], [facility], [facility], [facility], or [facility]) in a manner consistent with CLIA requirements. One or more of these tests have not been cleared or approved by the FDA. [facility] is regulated under CLIA as qualified to perform high-complexity testing. These tests are used for clinical purposes. They should not be regarded as investigational or for research. Positive and negative controls stain appropriately.Performed By: #### [id number] #### [facility] CLIA [id number] [address] [place] [address] DIAGNOSISNormal [facility] on above:Order Comment: Specimen Type: FORMALIN-FIXED PARAFFIN-EMBEDDED TISSUE SPECIMEN Ordering Facility: [facility] Address: [address] [place], [place] [id number] Comment: A. Urethral mass, excision: (OY11-485, 09/25/2023) - High-grade squamous intraepithelial lesion (see comment). Performed By: #### [id number] #### [facility] CLIA [id number] [address] [place] [address] PERFORMING LABNormWilson Memorial Hospital on above:Order Comment: Specimen Type: FORMALIN-FIXED PARAFFIN-EMBEDDED TISSUE SPECIMEN Ordering Facility: [facility] Address: [address] [place] [address] Comment: Diagnostic interpretation performed at [facility], [address] [place] [address] CLIA# [id number] Director Of Gift Planning: Eleazar Sutherland M.D.Performed By: #### [id number] #### [facility] CLIA [id number] [address] [place] [address] [id number]: [id number] Received: 09/26/23 Status: MEHREEN Tavarze Num: [id number] Spec Type: Surgical Subm Dr: Star Recinos MD Tissues: A Urethra Biopsy (URETHRAL MASS) Procedures: HE/2, Gross/Micro L4, Ki-67, CINtec p16, IHC First AB Age/ Patient Sex Location Account Attending Physician Brigitte High 72/F LABELL [id number] Star Recinos MD SPEC NUM: [id number] RECD: 09/26/23 STATUS: MEHREEN TAVAREZ NUM: [id number] CRESCENCIO: 09/25/23- SUBM DR: Star Recinos MD ENTERED: 09/26/23-1330 [facility] DR: MARIA E TYPE: Surgical DEPT: HONG GARCIA ORDERED: HE/2, Gross/Micro L4, Ki-67, CINtec p16, IHC First AB ORDERED: HE/2, Gross/Micro L4, Ki-67, CINtec p16, IHC First AB, IMMUNOHISTOCHEM Supplemental Report Addendum 2 Entered: 10/20/23-1132 Supplemental for findings of consultation report from CC: -No discrepancy between the diagnosis of the original report and the findings of consultation report from [facility] -Please also see the first supplemental report issued below Addendum Signed (signature on file) Rocío Horvath MD 10/20/231132 Addendum 1 Entered: 10/16/23-1436 Urethral mass, excision: ? High-grade squamous intraepithelial lesion. ? Comment: This specimen was reviewed by Dr. Hema Ho at the [facility], who rendered the diagnosis above. She noted that no invasive carcinoma is present in the sample examined. P16 immunostain performed at the referring institution is diffusely/strongly positive. Further, high-risk HPV CISH performed at the [facility] is positive. Specimen: [id number] Received: 09/26/23-132 Status: MEHREEN Tavarez Num: [id number] Spec Type: Surgical Subm Dr: Star Recinos MD Tissues: A Urethra Biopsy (URETHRAL MASS) Procedures: HE/2, Gross/Micro L4, Ki-67, CINtec p16, IHC First AB Patient: Brigitte High [id number] (Continued) Specimen: [id number] Received: 09/26/23 (Continued) Supplemental Report (Continued) Signed (signature on file) Rocío Horvath MD 09/29/23 1838 Specimen: [id number] Received: 09/26/23 Status: MEHREEN Tavarez Num: [id number] Spec Type: Surgical Subm Dr: Star Recinos MD Tissues: A Urethra Biopsy (URETHRAL MASS) Procedures: HE/2, Gross/Micro L4, Ki-67, CINtec p16, IHC First AB Patient: Brigitte High [id number] (Continued) Specimen: [id number] Received: 09/26/23-0095 (Continued) Supplemental Report (Continued) Addendum Signed (signature [...] rubbery tissue that is partially surfaced by sloan- wetzel mucosa. The specimen is inked and bisected revealing a rubbery, sloan-wetzel cut surface. Entirely submitted in one cassette labeled A1. CPT Codes 94298 68642, [address] Specimen: [id number] Received: 09/26/23 Status: MEHREEN Maude Num: [id number] Spec Type: Surgical Subm Dr: Star Recinos MD Tissues: A Urethra Biopsy (URETHRAL MASS) Procedures: HE/2, Gross/Micro L4, Ki-67, CINtec p16, IHC First AB Patient: Brigitte High [id number] (Continued) Signed (signature on file)___ (more content not included)...[facility]-FairhillCNPNon 78-57-4500XONRJmsqmrgnz (PLASAV) BRIGITTE HIGH ([id number]) 1950 F Date Time Provider Department 04/02/23 [...] 12/09/2014 Encounter Status:Closed by KYRA PAGE on 04/02/23[facility] 37-52-9808LJRDAbrada Visit (PLASAM) BRIGITTE HIGH ([id number]) 1950 F Date Time Provider Department 03/28/23 [...] 12/09/2014 Encounter Status:Closed by Lawrence MEDINA on 03/28/23[facility] BREAST WO IVCON BILon 35-04-1457ILN BREAST WO IVCON CHRIS* * *Final Report* * * DATE OF EXAM: Mar 25 2023 2:01PM [facility] 0699 - MRI BREAST WO IVCON CHRIS / PROCEDURE REASON: History of breast cancer * * * * Physician Interpretation * * * * #[id number] - MRI BREAST WO IVCON CHRIS BREAST [...] evaluate for breast cancer. Marva pérez/renato:03/26/2023 11:11:18 Forensic Psychiatrist(s): RT Jennifer(R), [facility] MRI BI-RADS: n/a Multiple national specialty organizations have released breast cancer screening guidelines for women at average risk for developing breast cancer - guidelines that are based on both evidence and opinion, yet differ on when to start and how often to screen for breast cancer. With representation from Breast Imaging, Internal Medicine, Women's Health, Family Medicine, and Medical/Surgical Oncology, the [facility] has carefully reviewed the data [...] their providers when to stop screening mammograms. Weigher And Grader: Renato Transcribe Date/Time: Mar 25 2023 1:29P Dictated by : MARVA BONILLA MD This examination was interpreted and the report reviewed and electronically signed by: MARVA BONILLA MD on Mar 26 2023 11:11AM EST [id number] City HospitalEstablished Visit (Orthopaedic Surgery)on 35-49-1092Rgfrfktxmpf Visit (Orthopaedic Surgery) Diagnoses/Problems Assessed Patella fracture (822.0) (S82.009A) Orders Patella fracture Xray Knee 3 View; Status:Resulted - Preliminary,Retrospective Authorization; Done: [id number] 10:14AM Laterality : Left Radiologist to Determine [...] Former smoker (V15.82) (Z87 (more content not included)...NormalUH Touchworks KNEE 3 VIEWSon 99-56-3566GPQR 3 VIEWSMRN: [id number] Patient Name: BRIGITTE HIGH STUDY: KNEE; 3 VIEWS; Left; 02/11/2023 10:14 am INDICATION: . S82.009A: Patella fracture. ACCESSION NUMBER(S): [id number] ORDERING CLINICIAN: SANDRA TAYLOR FINDINGS: Left knee films show transverse patellar fracture to stable in satisfactory position. There is filling in at the fracture site. There is moderate degenerative change seen in the medial and lateral compartments of the knee. There is also moderate degenerative change seen in the patellofemoral joint Electronically signed by: Ingrid HOLMANSaint Michael'S Medical CenterRadiologyon 57-32-9243VF Knee 3 ViewsNoAmerican Healthcare Systems-Edinboro For OrthopedicsBellevue Hospital Work Phone: Clinic Note - Heme Onc Schedulingon 17-28-5212Xwdsmm Note - Heme Onc SchedulingRetrieve Patient Instructions: Patient Instructions: Patient Instructions: RetrievePatient Instructions Instructions Printed Schedule End of Visit Documentation: Clinic Location/Phone Number: Clinic Location/Phone Number: [place] [phone] End Of Visit MU Report Item: Visit Summary given or mailed to patientyes Mailed Appointments Electronic Signatures: Fatimah Melendez (Rev Cycl Spec) (Signed 20-Jan-2023 09:06) Authored: Retrieve Patient Instructions, End of Visit Documentation Last Updated: 20-Jan-2023 09:06 by Fatimah Melendez (Rev Cycl Spec)[facility] HospitalCA27.29on 60-47-6151PO35.2953.0 U/mLHigh0.0 - 38.6[facility] – TishomingoComment on above:Result Comment: CA 27.29 testing is performed by chemiluminescent [...] means for clinical diagnosis or patient management decisions.Performed By: #### [id number] #### [facility] [address] [place], [place] [address]IV40.29 (CA15-3)on 27-95-8891Xakong Ag 27-29 Qn53.0 [arb'U]/mLabove high threshold0.0 - 38.6MP-[place] For OrthopedicsParma Community General Hospital Work Phone: Comment on above:CA 27.29 testing is performed by chemiluminescent immunoassay [...] means for clinical diagnosis or patient management decisi ons.Clinic Note - Heme Onc-Follow Up Visiton 98-37-9581Ptmxdk Note - Heme Onc- Follow Up VisitPatient Visit Information: Visit Type: Follow Up Visit History of Present Illness: ID Statement: BRIGITTE HIGH is a 72 year old Female Chief Complaint: I am doing okay Interval History: Ms. High is a 72 year old female with history of breast cancer who is here for medical oncology consultation. Patient is a transfer her care from [facility]. Dr. Jing Campbell is her PCP. The patient is transferring her medical oncology care here, after having been cared for by Dr. Aleyda Richardson. Her Juan Sheffield was a patient of our practice and in early 2017. Last reported mammogram 06/05/2016 done in [place]. She has history of left sided breast [...] margin, lymphovascular invasion not definite; ER neg, HI neg, SYV5vcv neg. The patient does not recall what [...] and chest xray to be done at [facility] this upcoming Friday. She also happens to [...] now due to intolerable waits at the [place] office. 12/27/2019: Here for annual visit in the setting of history of breast cancer. Her most recent mammogram done on December 30 2018 and that was negative. 12/26/2020 here for interval followup; looking forward to going back to [place] in near future 01/18/2022 here for interval followup; has no complaints 01/17/2023 here for interval followup; now living in [facility] PAST MEDICAL HISTORY: History of sleep [...] Intolerance NEGATIVE: Heat Intolerance, Sweat, Polyuria, Thirst Hematologic/LymphNEGATIVE: Anemia, Bruising, Easy Bleeding, Night Sweats, Petechiae Allergic/ImmunologicNEGATIVE: Anaphylaxis, Itchy/ Teary Eyes, Itching, (more content not included)...NormalUH [facility] At BellevilleClinic Note - Intakeon 15-91-3154Jwibnw Note - IntakePatient Visit Information: Visit TypeFollow Up Visit Source [...] Updated: 17-Jan-2023 13:29 by Iona Ríos (DAMION II)Virginia HospitalBILATERAL KNEE 1 OR 2 VIEWSon 20-07-6815DZQZQCLQD KNEE 1 OR 2 VIEWSMRN: [id number] Patient Name: BRIGITTE HIGH STUDY: BILATERAL KNEE; 1 OR 2 VIEWS; Left; 01/07/2023 9:57 am INDICATION: FX S82.009A: Patella fracture. ACCESSION NUMBER(S): [id number] ORDERING CLINICIAN: SANDRA TAYLOR FINDINGS: Bilateral knee films show on the right no fracture, dislocation or destructive lesion. There is mild to moderate degenerative change seen. The left knee patellar fracture is in stable position. It is nondisplaced. There is some filling in at the fracture site. Electronically signed by: Ingrid HOLMANSaint Michael'S Medical CenterEstablished Visit (Orthopaedic Surgery)on 13-38-7373Xxtmlrxayff Visit (Orthopaedic Surgery)Diagnoses/Problems Assessed Patella fracture (822.0) (S82.009A) Right knee [...] ovarian cyst History o (more content not included)...NormalUH TouchworksEstablished Visit (Orthopaedic Surgery)on 15-93-7814Yplqfnlckhm Visit (Orthopaedic Surgery) Diagnoses/Problems Assessed Other closed fracture of patella, unspecified laterality, initial encounter (822.0) (S82.472M) Chief Complaint Left knee pain Patient to bring xray disc History of Present Illness History of Present Illness This is a 72-year-old female here for. She was in [place] when she fell and landed on both knees. She has swelling and pain initially. Her pain did improve some. She never sought medical attention. She had knee pain. She had persistent pain and went to a hospital back in [place] and had x-rays. She ishere for follow-up. 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 Destini HorvathXR RIBS LT PA George 67-22-3013EZ RIBS LT PA CHEXAMINATION: XR RIBS LT PA CH HISTORY: Rib [...] definite rib fracture Electronically authenticated by: ILDEFONSO TORRES Date: 2022-08-19 06:59NormalThKettering Health Hamilton AUTO DIFFon 84-50-4326XEYC #0.1 103/ulNormal0.0-0.1[facility] Medical CenterComment on above:Performed By: #### CBC #### [facility] [address] [place] [address] Dr. Destini HorvathBasophils/100 WBC (Bld)1.1 %Normal0.2-2.0[facility] Comment on above:Performed By: #### CBC #### [facility] [address] [place] [address] Dr. Destini Abad #0.2 103/ulNormal0.0-0.7ThDoctors HospitalComment on above: Performed By: #### CBC #### [facility] [address] [place] [address] Dr. Destini Rodriguesosinophils/100 WBC (Bld)2.9 %Normal0.9-7.0[facility] Comment on above:Performed By: #### CBC #### [facility] [address] [place] [address] Dr. Destini Rodriguesrythrocyte distribution width (RBC) [Ratio]13.4 %Somzws30.0-15.0 [facility] CenterComment on above:Performed By: #### CBC #### [facility] [address] [place] [address] Dr. Destini HorvathHematocrit (Bld) [Volume fraction]35.2 %Critically low36.0-48.0 [facility] CenterComment on above:Performed By: #### CBC #### [facility] [address] [place] [address] Dr. Destini HorvathHemoglobin (Bld) [Mass/Vol]12.4 g/wLIawiog55.0-16.0The [facility] Medical CenterComment on above:Performed By: #### CBC #### [facility] [address] [place] [address] Dr. Destini Nelson #0.01 10e3/ulNormal0.00-0.03The [facility] CenterComment on above:Performed By: #### CBC #### [facility] [address] [place] [address] Dr. Destini Nelson %0.2 %Normal0.0-0.5The [facility] CenterComment on above: Performed By: #### CBC #### [facility] [address] [place] [address] Dr. Destini Norris #2.5 103/ulNormal1.2-3.8The [facility] CenterComment on above:Performed By: #### CBC #### [facility] [address] [place] [address] Dr. Destini Mojicamphocytes/100 WBC (Bld)45.6 %Mffbry59.5-60.0The [facility] CenterComment on above:Performed By: #### CBC #### [facility] [address] [place] [address] Dr. Destini FernandezUAL DIFF REQNONormalThe [facility] CenterComment on above: Performed By: #### CBC #### [facility] [address] [place] [address] Dr. Destini Lopez (RBC) [Entitic mass]30.1 udMlqzch91.7-34.0The [facility] CenterComment on above:Performed By: #### CBC #### [facility] [address] [place] [address] Dr. Destini Lim (RBC) [Mass/Vol]35.2 g/kLJpqmrf10.9-35.2The [facility] CenterComment on above:Performed By: #### CBC #### [facility] [address] [address] [address] Destini Barnhart (RBC) [Entitic vol]85.4 lBUwohte99.0-99.0The [facility] CenterComment on above:Performed By: #### CBC #### [facility] [address] [place] [address] Dr. Destini Andino #0.5 103/ulNormal0.3-0.8The [facility] CenterComment on above:Performed By: #### CBC #### [facility] [address] [place] [address] Dr. Destini Rangelocytes/100 WBC (Bld)8.3 %Normal1.7-12.0The [facility] Comment on above:Performed By: #### CBC #### [facility] [address] [place] [address] Dr. Destini Caldwell #2.3 103/ulNormal1.4-6.5The [facility] CenterComment on above:Performed By: #### CBC #### [facility] [address] [place] [address] Dr. Destini Allisonutrophils/100 WBC (Bld)41.9 %Critically low43.0-75.0The [facility] CenterComment on above:Performed By: #### CBC #### [facility] [address] [place] [address] Dr. Destini Grantlet mean volume (Bld) [Entitic vol]9.6 fLNormal9.5-13.5The [facility] CenterComment on above:Performed By: #### CBC #### [facility] [address] [place] [address] Dr. Destini EscalanteT262 103/pnMdvazf964-968Chp [facility] CenterComment on above: Performed By: #### CBC #### [facility] [address] [place] [address] Dr. Destini HorvathRBC4.12 106/ulCritically low4.20-5.40The [facility] CenterComment on above:Performed By: #### CBC #### [facility] [address] [place] [address] Dr. Destini HorvathWBC5.6 103/ulNormal4.0-11.0The [facility] CenterComment on above: Performed By: #### CBC #### [facility] [address] [place] [address] Dr. Destini HorvathFRMONA THYROXINE INDEX T7on 42-92-5489VEC7.29Eucjpe5.30-4.50The [facility] on above:Performed By: #### TSH, LIPID, CMP, T7 #### [facility] [address] [place] [address] Dr. Destini HorvathT3U34.0 %Meucao00.0-39.0The [facility] on above: Performed By: #### TSH, LIPID, CMP, T7 #### [facility] [address] [place] [address] Dr. Destini HorvathT4 [Mass/Vol]6.30 ug/dLNormal4.80-13.90The [facility] Comment on above:Performed By: #### TSH, LIPID, CMP, T7 #### [facility] [address] [place] [address] Dr. Destini HorvathGLYCOHEMOGLOBIN A1Con [id number] RECOMMENDATIONSEE BELOWNormal The [facility] CenterComcaro center on above:Result Comment: ADA RECOMMENDED LIMIT 4.0 - 6.0 ADA THERAPEUTIC TARGET < 7.0 ACTION SUGGESTED > 7.0Performed By: #### URCX #### [facility] [address] [place] [address] Dr. Destini HorvathGlucose [Mass/Vol]117 mg/dLNormalThe [facility] CenterComcaro center on above:Performed By: #### URCX #### [facility] [address] [place] [address] Dr. Destini HorvathHbA1c (Bld) [Mass fraction]5.7 %Normal4.5-6.2The [facility] CenterComment on above:Performed By: #### URCX #### [facility] [address] [place] [address] Dr. Destini Mosley [id number] [Mass/Vol]39.0 ug/dLCritically low 50.0-170.0The [facility] CenterComment on above:Performed By: #### URCX #### [facility] [address] [place] [address] Dr. Destini GarciaID PROFILEon [id number]-HDL RATIO NORMSEE BELOWSalem Regional Medical CenterComment on above:Result Comment: 3.3 - 4.4 LOW RISK 4.4 - 7.1 AVERAGE RISK 7.1 - 11.0 MODERATE RISK >11.0 HIGH RISKPerformed By: #### TSH, LIPID, CMP, T7 #### [facility] [address] [place] [address] Dr. Destini Matuteesterol [Mass/Vol]191 mg/dLNormal<=200The [facility] Comment on above:Performed By: #### TSH, LIPID, CMP, T7 #### [facility] [address] [place] [address] Dr. Destini Matuteesterol in HDL [Mass/Vol]109 mg/dLCritically vmfx69-36Ebr [facility] CenterComcaro center on above:Performed By: #### TSH, LIPID, CMP, T7 #### [facility] [address] [place] [address] Dr. Destini Matuteesterol in LDL [Mass/Vol]69.2 mg/dLSalem Regional Medical CenterComment on above:Performed By: #### TSH, LIPID, CMP, T7 #### [facility] [address] [place] [address] Dr. Destini Pollard.total/Cholesterol in HDL [Mass ratio]1.8 {ratio} NormalUniversity Hospitals Portage Medical CenterComment on above:Performed By: #### TSH, LIPID, CMP, T7 #### [facility] [address] [address] [address] Destini Escamilla NORMAL> or = 60 mg/dl - LOW CARDIOVASCULAR RISK <40 mg/dl - HIGH CARDIOVASCULAR RISKSalem Regional Medical CenterComment on above:Performed By: #### TSH, LIPID, CMP, T7 #### [facility] [address] [address] [address] Destini HorvathLDL CALC NORMALSEE BELOWSalem Regional Medical CenterComment on above:Result Comment: <100 mg/dl OPTIMAL 100 - 129 mg/dl NEAR OR ABOVE OPTIMAL 130 - 159 mg/dl BORDERLINE HIGH 160 - 189 mg/dl HIGH >190 mg/dl VERY HIGH Performed By: #### TSH, LIPID, CMP, T7 #### [facility] [address] [address] [address] Destini HorvathTriglyceride [Mass/Vol]64 mg/dLNormal<=150The [facility] Comment on above:Performed By: #### TSH, LIPID, CMP, T7 #### [facility] [address] [place] [address] Dr. Destini RomanLDL CALC12.8 mg/dLNoSheltering Arms HospitalComment on above: Performed By: #### TSH, LIPID, CMP, T7 #### [facility] [address] [place] [address] Dr. Destini HorvathPRORony 14(COMP METB)on [id number] [Mass/Vol]3.6 g/dLNormal 3.4-5.0The [facility] CenterComment on above:Performed By: #### TSH, LIPID, CMP, T7 #### [facility] [address] [address] [address] Destini HorvathAlbumin/Globulin [Mass ratio]1.0 {ratio}NormalThe [facility] on above:Performed By: #### TSH, LIPID, CMP, T7 #### [facility] [address] [address] [address] Destini BrunerP [Catalytic activity/Vol]101 U/DSuwyob58-302Jri Martin Memorial Hospitalment on above:Performed By: #### TSH, LIPID, CMP, T7 #### [facility] [address] [address] [address] Destini Crook [Catalytic activity/Vol]27 U/AIpojaf64-35Xgj [facility] CenterComment on above:Performed By: #### TSH, LIPID, CMP, T7 #### [facility] [address] [place] [address] Dr. Destini Chandon gap [Moles/Vol]15.0 mmol/LNormalThe [facility] Comment on above:Performed By: #### TSH, LIPID, CMP, T7 #### [facility] [address] [place] [address] Dr. Destini Treviño [Catalytic activity/Vol]22 U/ESangxj27-15Uoy [facility] CenterComment on above:Performed By: #### TSH, LIPID, CMP, T7 #### [facility] [address] [place] [address] Dr. Destini HorvathBilirubin [Mass/Vol]0.3 mg/dLNormal0.2-1.0[facility] Comment on above:Performed By: #### TSH, LIPID, CMP, T7 #### [facility] [address] [place] [address] Dr. Destini HorvathCalcium [Mass/Vol]9.2 mg/dLNormal8.5-10.1[facility] Comment on above:Performed By: #### TSH, LIPID, CMP, T7 #### [facility] [address] [place] [address] Dr. Destini HorvathChloride [Moles/Vol]108 mmol/LCritically xifo65-653Muw [facility] CenterComment on above:Performed By: #### TSH, LIPID, CMP, T7 #### [facility] [address] [place] [address] Dr. Destini HorvathCO2 [Moles/Vol]23.7 mmol/VPncybv49.0-32.0[facility] Comment on above:Performed By: #### TSH, LIPID, CMP, T7 #### [facility] [address] [place] [address] Dr. Destini HorvathCreatinine [Mass/Vol]0.59 mg/dLNormal0.55-1.02[facility] CenterComment on above:Performed By: #### TSH, LIPID, CMP, T7 #### [facility] [address] [address] [address] Destini RodriguesGFR-AF THAI>60Normal>=60The [facility] CenterComment on above:Performed By: #### TSH, LIPID, CMP, T7 #### [facility] [address] [address] [address] Destini RodriguesGFR-NON AF THAI>60Normal>=60The [facility] CenterComment on above:Performed By: #### TSH, LIPID, CMP, T7 #### [facility] [address] [place] [address] Dr. Destini HorvathGlobulin (S) [Mass/Vol]3.7 g/dLNormalThe [facility] CenterComment on above:Performed By: #### TSH, LIPID, CMP, T7 #### [facility] [address] [address] [address] Destini HorvathGlucose [Mass/Vol]91 mg/pVEueono36-617EqbUniversity Hospitals Portage Medical Center Comment on above:Performed By: #### TSH, LIPID, CMP, T7 #### [facility] [address] [address] [address] Destini HorvathPotassium [Moles/Vol]3.7 mmol/LNormal3.5-5.1The [facility] Comment on above:Performed By: #### TSH, LIPID, CMP, T7 #### [facility] [address] [address] [address] Destini HorvathProtein [Mass/Vol]7.3 g/dLNormal6.4-8.2The [facility] Comment on above:Performed By: #### TSH, LIPID, CMP, T7 #### [facility] [address] [address] [address] Destini HorvathSodium [Moles/Vol]143 mmol/BVwggaj211-976QayUniversity Hospitals Portage Medical Center Comment on above:Performed By: #### TSH, LIPID, CMP, T7 #### [facility] [address] [address] [address] Destini HorvathUrea nitrogen [Mass/Vol]17.0 mg/dLNormal7.0-18.0The [facility] on above:Performed By: #### TSH, LIPID, CMP, T7 #### [facility] [address] [place] [address] Dr. Destini Browne nitrogen/Creatinine [Mass ratio]28.8 mg/mgNormalThe [facility] CenterComment on above:Performed By: #### TSH, LIPID, CMP, T7 #### [facility] [address] [place] [address] Dr. Destini Martines 42-41-7076INP7.888 uIU/mLNormal0.358-3.740The [facility] on above:Performed By: #### TSH, LIPID, CMP, T7 #### [facility] [address] [place] [address] Dr. Destini HorvathCostephany-19 PCR (CVDTB)on [id number]-CoV-2 (COVID-19) RNA MARY+probe Ql (Unsp spec)Not detectedNormalNOT DETECTEDThe [facility] Comment on above:Result Comment: When diagnostic testing is negative, the [...] for this test is supported by the [place] of Health and Human Service's declaration that circumstances exist to justify the emergency use of in vitro diagnostics for the detection and/or diagnosis of the virus that causes COVID-19. This EUA will remain in effect for the duration of the COVID-19 declaration justifying emergency of IVDs, unless it is terminated or revoked by the FDA (after which the test may no longer be used).Performed By: #### CVDTBH #### [facility] [address] [place] [address] Dr. Destini Combs AND B AGon [id number] [facility] on above:Result Comment: Negative for Flu A protein angiten. Infection due to Flu A cannot be ruled out. FluA angiten in the sample may be below the detection limit of the test.Performed By: #### URCX #### [facility] [address] [place] [address] Dr. Destini NavarroUBNEGThe [facility] on above: Result Comment: Negative for Flu B protein antigen. Infection due to Flu B cannot be ruled out. FluB antigen in the sample may be below the detection limit of the test.Performed By: #### URCX #### [facility] [address] [place] [address] Dr. Destini Combs AGNegativeNormalNEGATIVE SEE COMMENTThe [facility] on above:Performed By: #### URCX #### [facility] [address] [place] [address] Dr. Destini Randle AGNegativeNormalNEGATIVE SEE COMMENTOhio State Health System on above:Performed By: #### URCX #### [facility] [address] [place] [address] Dr. Destini HorvathINTERNAL CONTROLSWithin Normal LimitsNormalWithin Normal Limits The [facility] CenterComcaro center on above:Performed By: #### URCX #### [facility] [address] [place] [address] Dr. Destini Sy URINEon [id number] URINEIsolate 1 Escherichia coli >100,000 cfu/ml of ORGANISM [...] <=0.12 S F Nitrofurantoin <=16 S F Trimethoprim/Sulfamethoxazole <=20 S FNormalUniversity Hospitals Portage Medical CenterComment on above:Performed By: #### URCX #### [facility] [address] [place] [address] Dr. Destini Brewster RANDOM W/MICROSCOPICon 07-19-0668RJPDCSDAFKMIZBqiovyvoFLTN SEENUniversity Hospitals Portage Medical CenterComment on above:Performed By: #### URCX #### [facility] [address] [place] [address] Dr. Destini Urena Ql (U)NegativeNormalNEGATIVEUniversity Hospitals Portage Medical Center Comment on above:Performed By: #### URCX #### [facility] [address] [place] [address] Dr. Destini Jane SEENNormalNONE [facility] HospitalComment on above:Performed By: #### URCX #### [facility] [address] [place] [address] Dr. Destini Momin (U)SL CLOUDYAbnormalCLEARThDoctors HospitalComcaro center on above:Performed By: #### URCX #### [facility] [address] [place] [address] Dr. Destini Thompson (U)LT. YELLOWNormalYELLOWUniversity Hospitals Portage Medical CenterComment on above:Performed By: #### URCX #### [facility] [address] [place] [address] Dr. Destini Schumacher LM Nom (Urine sed)NONE SEENNormalNONE SEENUniversity Hospitals Portage Medical CenterComcaro center on above:Performed By: #### URCX #### [facility] [address] [place] [address] Dr. Georges ChangEpithelial cells LM Ql (Urine sed)FEWAbnormalNONE SEEN /RAREUniversity Hospitals Portage Medical CenterComment on above:Performed By: #### URCX #### [facility] [address] [address] [address] Destini HorvathGlucose Ql (U)NegativeNormalNEGATIVEUniversity Hospitals Portage Medical CenterComment on above:Performed By: #### URCX #### [facility] [address] [place] [address] Dr. Destini HorvathHemoglobin Ql (U)TRACE-INTACTAbnormalNEGATIVEUniversity Hospitals Portage Medical CenterComment on above:Performed By: #### URCX #### [facility] [address] [place] [address] Dr. Destini HorvathKetones Ql (U)NegativeNormalNEGATIVEUniversity Hospitals Portage Medical CenterComment on above:Performed By: #### URCX #### [facility] [address] [place] [address] Dr. Destini HorvathLEUKOCYTESMODERATEAbnormalNEGATIVEUniversity Hospitals Portage Medical CenterComment on above:Performed By: #### URCX #### [facility] [address] [place] [address] Dr. Destini HorvathMUCOUSNONE SEENNormalNONE SEENUniversity Hospitals Portage Medical CenterComment on above:Performed By: #### URCX #### [facility] [address] [place] [address] Dr. Destini HorvathNitrite Ql (U)NegativeNormalNEGATIVEUniversity Hospitals Portage Medical CenterComment on above:Performed By: #### URCX #### [facility] [address] [place] [address] Dr. Destini HorvathpH (U)5.5 [pH]Normal5-9The [facility] CenterComment on above: Performed By: #### URCX #### [facility] [address] [place] [address] Dr. Destini HorvathZagzgDCM2-8Mllvmxkh5-5Fsc [facility] CenterComment on above:Performed By: #### URCX #### [facility] [address] [place] [address] Dr. Destini HorvathSPEC GRAVITY1.280Fvgadq1.005-<=1.025[facility] Port[facility] Medical CenterComment on above:Performed By: #### URCX #### [facility] [address] [place] [address] Dr. Destini Brewster PROTEINNegativeNormalNEGATIVE/ TRACEThe [facility] Comment on above:Performed By: #### URCX #### [facility] [address] [place] [address] Dr. Destini HorvathUrobilinogen Qn (U)0.2 {Abner'U}/dLNormal0.2 - 1.0[facility] Medical CenterComment on above:Performed By: #### URCX #### [facility] [address] [place] [address] Dr. Destini HorvathWBC (U) [#/Vol]/uLAbnormalNONE SEENThe [facility] CenterComment on above:Performed By: #### URCX #### [facility] [address] [place] [address] Dr. Destini HorvathCBDilip 50-74-7525Aujkkaikebq distribution width (RBC) [Ratio]14.0 %Virxoo46.5 - 14.5B[facility]b Children's HospitalComment on above:Performed By: #### CBC #### [address] [id number] (Bld) [Volume fraction]41.0 %Psckbk50.0 - 46.0[facility] Children's HospitalComment on above:Performed By: #### CBC #### [address] [id number] (Bld) [Mass/Vol]12.9 g/fLAgqpsd74.0 - 16.0[facility] Children's HospitalComment on above:Performed By: #### CBC #### [address] [id number] (RBC) [Mass/Vol]31.5 g/dLLow32.0 - 36.0[facility] Children's HospitalComment on above:Performed By: #### CBC #### [address] [id number] (RBC) [Entitic vol]97 oLCvgtei65 - 100B[facility] Children's HospitalComment on above:Performed By: #### CBC #### [address] [id number] (Bld) [#/Vol]268 10*3/wFCpwewm793 - 450B[facility] Children's HospitalComment on above:Performed By: #### CBC #### [address] [id number] x10E12/LNormal4.00 - 5.20[facility] Comment on above:Performed By: #### CBC #### [address] [id number] (Bld) [#/Vol]6.0 10*3/uLNormal4.4 - 11.3[facility] Children's HospitalComment on above:Performed By: #### CBC #### [address] [id number] PANELon 44-63-3972Sqbrrjn [Mass/Vol]4.2 g/dL Normal3.4 - 5.0[facility] Children's HospitalComment on above:Performed By: #### CMP #### [address] [id number] [Catalytic activity/Vol]71 U/PFzgkwl62 - 136B[facility] Children's HospitalComment on above:Performed By: #### CMP #### [address] [id number] [Catalytic activity/Vol]23 U/LNormal7 - 45B[facility] Children's HospitalComment on above:Result Comment: Patients treated with Sulfasalazine may generate falsely decreased results for ALT.Performed By: #### CMP #### [address] [id number] gap [Moles/Vol]13 mmol/MHiukmm25 - 20B[facility] Children's HospitalComment on above:Performed By: #### CMP #### [address] [id number] [Catalytic activity/Vol]24 U/LNormal9 - 39B[facility] Children's HospitalComment on above:Performed By: #### CMP #### [address] [id number] [Mass/Vol]0.4 mg/dLNormal0.0 - 1.2[facility] Children's HospitalComment on above:Performed By: #### CMP #### [address] [id number] [Mass/Vol]9.4 mg/dLNormal8.6 - 10.3UH Select At BellevilleComment on above:Performed By: #### CMP #### [address] [id number] [Moles/Vol]106 mmol/JCmewku35 - 107B[facility] Children's HospitalComment on above:Performed By: #### CMP #### [address] [id number] [Mass/Vol]0.69 mg/dLNormal0.50 - 1.05UH Select At BellevilleComment on above:Performed By: #### CMP #### [address] [id number] FEMALE>90Normal>90UH Select At BellevilleComment on above:Result Comment: CALCULATIONS OF ESTIMATED GFR ARE PERFORMED USING THE 2020 CKD-EPI STUDY REFIT EQUATION WITHOUT THE RACE VARIABLE FOR THE IDMS-TRACEABLE CREATININE METHODS. https://jasn.asnjournals.org/content//ASN.9883895158Jgqlmyjpg By: #### CMP #### [address] [id number] [Mass/Vol]79 mg/sSLfzkgg62 - 99UH [facility] At BellevilleComment on above:Performed By: #### CMP #### [address] [id number] (Bld) [Moles/Vol]25 mmol/NGnhune75 - 32B[facility] Children's HospitalComment on above:Performed By: #### CMP #### [address] [id number] [Moles/Vol]4.1 mmol/LNormal3.5 - 5.3[facility] HospitalComment on above:Performed By: #### CMP #### [address] [id number] [Mass/Vol]7.4 g/dLNormal6.4 - 8.2[facility]'s HospitalComment on above:Performed By: #### CMP #### [address] [id number] [Moles/Vol]140 mmol/DOlsbvs720 - 145B[facility] Children's HospitalComment on above:Performed By: #### CMP #### [address] [id number] nitrogen [Mass/Vol]12 mg/dLNormal6 - 23B[facility] Children's HospitalComment on above:Performed By: #### CMP #### [address] [id number] PANEL (CORONARY RISK 2)on 04-60-1515Wriavrficwz [Mass/Vol]198 mg/dLNormal0 - 199B[facility] Children's HospitalComment on above: Result Comment: . AGE DESIRABLE [...] should be performed immediately prior to Metamizole dosing.Performed By: #### LIPID #### [address] [id number] in HDL [Mass/Vol]89.0 mg/dLNormalUSaint Michael'S Medical CenterComment on above:Result Comment: . AGE VERY LOW LOW NORMAL HIGH 0-19 Y < 35 < 40 40-45 ---- 20-24 Y ---- < 40 >45 ---- >24 Y ---- < 40 40-60 >60 .Performed By: #### LIPID #### [address] [id number] in LDL [Mass/Vol]87 mg/dLNormal0 - 99B[facility] Children's HospitalComment on above:Result Comment: . NEAR BORD AGE DESIRABLE OPTIMAL HIGH HIGH VERY HIGH 0-19 Y 0 - 109 --- 110-129 >/= 130 ---- 20-24 Y 0 - 119 --- 120-159 >/= 160 ---- >24 Y 0 - 99 100-129 130-159 160-189 >/=190 .Performed By: #### LIPID #### [address] [id number] in VLDL [Mass/Vol]22 mg/dLNormal0 - 40B[facility] Children's HospitalComment on above:Performed By: #### LIPID #### [address] [id number].total/Cholesterol in HDL [Mass ratio]2.2 {ratio} NormalBristol-Myers Squibb Children's HospitalComment on above:Result Comment: REF VALUES DESIRABLE < 3.4 HIGH RISK > 5.0Performed By: #### LIPID #### [address] [id number] [Mass/Vol]109 mg/dLNormal0 - 149B[facility] Children's HospitalComment on above:Result Comment: . AGE DESIRABLE BORDERLINE HIGH HIGH [...] should be performed immediately prior to Metamizole dosing.Performed By: #### LIPID #### [address] [id number] - Chemistry and Chemistry - challengeon 50-05-0565Beqkgys BCP dye [Mass/Vol]4.2 g/dL3.4 - 5.3AP-HKFZ-Mlys 2535A Work Phone: aLP [Catalytic activity/Vol]71 U/L33 - 143TN-SSRY-Bdjk 2535A Work Phone: aLT With P-5'-P [Catalytic activity/Vol]23 U/L7 - 45 SC-FHMA-Sxxj 2535A Work Phone: Comment on above:Patients treated with Sulfasalazine may generate falsely decreased results for ALT.Anion gap [Moles/Vol]13 mmol/L10 - 96LG-PWGU-Dqej 2535A Work Phone: aST With P-5'-P [Catalytic activity/Vol]24 U/L9 - 39 ER-EPXA-Whuh 2535A Work Phone: Bilirubin [Mass/Vol]0.4 mg/dL0.0 - 1.5VY-PVOG-Zhft 2535A Work Phone: Calcium [Mass/Vol]9.4 mg/dL8.6 - 10.5GL-DLEB-Tiyu 2535A Work Phone: Chloride [Moles/Vol]106 mmol/L98 - 496NM-ECNC-Nbie 2535A Work Phone: CO2 [Moles/Vol]25 mmol/L21 - 71QR-OTHH-Eats 2535A Work Phone: Creatinine [Mass/Vol]0.69 mg/dLSee NhlmpDC-JKUD-Mfgw 253 Work Phone: Comment on above:Reference Range: 0.50 - 1.05Glucose [Mass/Vol]79 mg/dL74 - 89WM-TFSN-Rozy 253 Work Phone: Potassium [Moles/Vol]4.1 mmol/L3.5 - 5.6RX-CGJA-Rvze Work Phone: Protein [Mass/Vol]7.4 g/dL6.4 - 8.2TK-TUNK-Skvf 253 Work Phone: Sodium [Moles/Vol]140 mmol/L136 - 027JW-JLKD-Sbol Work Phone: Urea nitrogen [Mass/Vol]12 mg/dL6 - 32TP-CXMX-Fpus Work Phone: Laboratory - Hematology and Cell countson 04-29-2022 Erythrocyte distribution width (RBC) [Ratio]14.0 %See LrkxeXK-QZTH-Lwct 253 Work Phone: Comment on above:Reference Range: 11.5 - 14.5 Hematocrit (Bld) [Volume fraction]41.0 %See IbfrrLJ-LVIA-Pnqp 253 Work Phone: Comment on above:Reference Range: 36.0 - 46.0 Hemoglobin (Bld) [Mass/Vol]12.9 g/dLSee CwrlaAB-FWVO-Tezv 2535A Work Phone: Comment on above:Reference Range: 12.0 - 16.0MCHC (RBC) [Mass/Vol]31.5 g/dLbelow low thresholdSee IvtjySP-YOYJ-Uxox 2535A Work Phone: Comment on above:Reference Range: 32.0 - 36.0MCV (RBC) [Entitic vol]97 fL80 - 308MN-VBXA-Khzj 2535A Work Phone: Platelets (Bld) [#/Vol]268 10*3/uL150 - 450 JJ-VFQZ-Aitw 2530B Work Phone: RBC (Bld) [#/Vol]4.24 {x10E12/L}See QxhphXC-NRPD-Wyhm 2533Y Work Phone: Comment on above:Reference Range: 4.00 - 5.20WBC (Bld) [#/Vol]6.0 10*3/uL4.4 - 11.9ZF-JROY-Baaq 2530D Work Phone: Lipid Panelon 85-60-1651Kbnkrkmkfek [Mass/Vol]198 mg/dL0 - 237BO-BFXA-Yxfs 2534E Work Phone: Comment on above:. AGE DESIRABLE BORDERLINE HIGH HIGH 0-19 Y [...] guidelines reference: NCEP ATPIII Guidelines, LUDIVINA 2001, 258:7546-97. Venipuncture immediately after or during the administration of Metamizole may lead to falsely low results. Testing should be performed immediately prior to Metamizole dosing.Cholesterol in HDL [Mass/Vol]89.0 mg/aZMF-DSNI-Mfgi 8228X Work Phone: Comment on above:. AGE VERY LOW LOW NORMAL HIGH 0-19 Y < 35 < 40 40-45 ---- 20-24 Y ---- < 40 >45 ---- >24 Y ---- < 40 40-60 >60. Cholesterol in LDL [Mass/Vol]87 mg/dL0 - 16QK-MLPW-Mada 2530L Work Phone: Comment on above:. NEAR BORD AGE DESIRABLE OPTIMAL HIGH HIGH VERY HIGH 0-19 Y 0 - 109 --- 110-129 >/= 130 ---- 20-24 Y 0 - 119 --- 120-159 >/= 160 ---- >24 Y 0 - 99 100-129 130-159 160-189 >/=190. Cholesterol.total/Cholesterol in HDL [Mass ratio]2.2 {ratio}EventCombo 7750X Work Phone: Comment on above:REF VALUESDESIRABLE < 3.4HIGH RISK > 5.0Triglyceride [Mass/Vol]109 mg/dL0 - 040KJ-LHPY-Kwhc 3187U Work Phone: Comment on above:. AGE DESIRABLE BORDERLINE HIGH HIGH VERY HIGH [...] should be performed immediately prior to Metamizole dosing.Lipid Panel22 mg/dL0 - 40 EventCombo 2847O Work Phone: Medicare Annual Wellness Visiton 10-03-2022Medicare Annual Wellness Visit*Chief Complaint flu 22 covid x 3 shingrix [...] alcohol, recreational drugs, or prescription drugs for non- medical reasons thismorning. Nutrition Screening: In the past month, there [...] last and you didn't have money to getmore: No History of Present Illness The patient [...] no diarrhea, no constipatio (more content not included)...[facility] Informationon 04-29-2022>90 >62KB-TIIK-Dlkn 3125D Work Phone: Comment on above:CALCULATIONS OF ESTIMATED GFR ARE PERFORMED USING THE 2020 CKD-EPI STUDY REFIT EQUATION WITHOUT THERACE VARIABLE FOR THE IDMS-TRACEABLE CREATININE METHODS.https://jasn.asnjournals.org/content/early//ASN.1589780607TJF on 77-84-5547ZGU Qn1.70 m[IU]/LNormal0.44 - 3.98[facility] Comment on above:Result Comment: TSH testing is performed using different testing methodology at [facility] than at other [facility]. Direct result comparisons should only be made within the same method.Performed By: #### TSH2 ####[facility] [place], [place] [id number] - Thyroid Stimulating Hormone, Serumon 47-58-7681DPQ Qn1.70 m[IU]/LSee PnaxuRN-UEVK-Wgaz 2535A Work Phone: Comment on above:Reference Range: 0.44 - 3.98 TSH testing is performed using different testing methodology at [facility] than at other [facility]. Direct result comparisons should only be made within the same method.Tobacco Screening.on 78-06-3596Uysrs depression screening ygrtsgdnsnWzZI-KMIV-Kwcu 2535A Work Phone: Fall risk assessmentb) One or more falls in the last ehlfUJ-DHHX-Wggc 2535A Work Phone: Tobacco use status CPHSb) PvFZ-DQQY-Lqhz 2536D Work Phone: VITAMIN B12on 29-43-0878Dhjnvdtyt (Vitamin B12) [Mass/Vol]417 pg/tQUcbggn846 - 756B[facility] Squ[facility]b Children's HospitalComment on above: Performed By: #### VTB12 ####[facility] [place], [place] [id number] D, 25-HYDROXYon 92-87-0881ERFRWYA D, 25-JYELGRX33 ng/mLNormalBristol-Myers Squibb Children's HospitalComment on above:Result Comment: . DEFICIENCY: < 20 NG/ML INSUFFICIENCY: 20-29 NG/ML SUFFICIENCY: 30-100 NG/ML THIS ASSAY ACCURATELY QUANTIFIES THE SUM OF VITAMIN D3, 25-HYDROXY AND VIT D2,25-HYDROXY.Performed By: #### VTDOH #### [facility] [address] [place], [place] [address]Mgqcava B12, Serumon 13-97-7069Sssexswss (Vitamin B12) [Mass/Vol]417 pg/mL211 811BJ-SPLE-Rvtw 2535A Work Phone: Vitamin D 25-Hydroxyon 133303-uzijrjfmunzsgf D3 [Mass/Vol]31 ng/rNFN-NAGM-Pvly 5217F Work Phone: Comment on above:.DEFICIENCY: < 20 NG/MLINSUFFICIENCY: 20-29 NG/MLSUFFICIENCY: 30-100 NG/MLTHIS ASSAY ACCURATELY QUANTIFIES THE SUM OFVITAMIN D3, 25-HYDROXY AND VIT D2,25-HYDROXY.BASIC METABOLIC PANELon 82-14-9607Dtyue gap [Moles/Vol]15 mmol/LJwclmx47 - 20[facility] Comment on above:Performed By: #### BMP #### [address] [id number] [Mass/Vol]9.6 mg/dLNormal8.6 - 10.3B[facility] Squ[facility] Children's HospitalComment on above:Performed By: #### BMP #### [address] [id number] [Moles/Vol]106 mmol/YIswpgt75 - 107B[facility] Children's HospitalComment on above:Performed By: #### BMP #### [address] [id number] [Mass/Vol]0.80 mg/dLNormal0.50 - 1.05B[facility] Children's HospitalComment on above:Performed By: #### BMP #### [address] [id number]/1.73 sq M.predicted among non-blacks MDRD (S/P/Bld) [Vol rate/Area]78 mL/min/{1.73_m2}Normal>90B[facility] Squ[facility] Children's HospitalComment on above:Result Comment: CALCULATIONS OF ESTIMATED GFR ARE PERFORMED USING THE 2020 CKD-EPI STUDY REFIT EQUATION WITHOUT THE RACE VARIABLE FOR THE IDMS-TRACEABLE CREATININE METHODS. https://jasn.asnjournals.org/content/early/ASN.5085706675Lllfxllqv By: #### BMP #### [address], [place] [phone] [Mass/Vol]67 mg/dLLow74 - 99UH [facility]Comment on [facility]:Performed By: #### BMP #### [address] [id number] (Bld) [Moles/Vol]22 mmol/PPwtfta07 - 32UH [facility]Comment on above:Performed By: #### BMP #### [address] [id number] [Moles/Vol]3.6 mmol/LNormal3.5 - 5.3[facility]Comment [facility]:Performed By: #### BMP #### [address] [id number] [Moles/Vol]139 mmol/XSlfxsu578 - 145UH [facility]Comment on above:Performed By: #### BMP #### [address] [id number] nitrogen [Mass/Vol]17 mg/dLNormal6 - 23B[facility] Children's HospitalComment on above:Performed By: #### BMP #### [address] [id number] 49-60-4428Lyzbquyvzxz distribution width (RBC) [Ratio] 13.8 %Lgkuda34.5 - 14.5B[facility] Children's HospitalComment on above:Performed By: #### CBC #### [address] [id number] (Bld) [Volume fraction]41.1 %Hgjsng25.0 - 46.0B[facility] Children's HospitalComment on above:Performed By: #### CBC #### [address] [id number] (Bld) [Mass/Vol]13.0 g/kZAleqca16.0 - 16.0[facility]:Performed By: #### CBC #### [address], [place] [id number] (RBC) [Mass/Vol]31.6 g/dLLow32.0 - 36.0B[facility] HospitalComment on above:Performed By: #### CBC #### [address] [phone] (RBC) [Entitic vol]97 qDYekkjt87 - 100B[facility] Children's HospitalComment on above:Performed By: #### CBC #### [address] [id number] (Bld) [#/Vol]287 10*3/fHXduetb125 - 450[facility]Comment on above:Performed By: #### CBC #### [address] [id number] x10E12/LNormal4.00 - 5.20[facility] Comment on above:Performed By: #### CBC #### [address] [phone] (Bld) [#/Vol]5.9 10*3/uLNormal4.4 - 11.3B[facility] Children's HospitalComment on above:Performed By: #### CBC #### [address] [id number] - Chemistry and Chemistry - challengeon 94-10-6853Qnukj gap [Moles/Vol]15 mmol/L10 - 95MA-FQUM-Kdym 2537W Work Phone: Calcium [Mass/Vol]9.6 mg/dL8.6 - 10.5OQ-OJAW-Smvf 9046J Work Phone: Chloride [Moles/Vol]106 mmol/L98 - 112LQ-SAJS-Yaqa 0T Work Phone: CO2 [Moles/Vol]22 mmol/L21 - 01FA-PIXW-Kcwk 7941M Work Phone: Creatinine [Mass/Vol]0.80 mg/dLSee VsdxaJD-IAMH-Lbex 253 Work Phone: Comment on above:Reference Range: 0.50 - 1.05Glucose [Mass/Vol]67 mg/dLbelow low ryblpgzbz79 - 60UK-OSCM-Ijbp Work Phone: Potassium [Moles/Vol]3.6 mmol/L3.5 - 5.5YX-DRBF-Bdgs Work Phone: Sodium [Moles/Vol]139 mmol/L136 - 222BT-EBMF-Jvcm Work Phone: Urea nitrogen [Mass/Vol]17 mg/dL6 - 46RR-IFNI-Fmfv Work Phone: Laboratory - Hematology and Cell countson 04-12-2022 Erythrocyte distribution width (RBC) [Ratio]13.8 %See KyxbxYJ-INGF-Nfak 253 Work Phone: Comment on above:Reference Range: 11.5 - 14.5 Hematocrit (Bld) [Volume fraction]41.1 %See LxxydBA-NKFU-Mtdq 253 Work Phone: Comment on above:Reference Range: 36.0 - 46.0 Hemoglobin (Bld) [Mass/Vol]13.0 g/dLSee KxaaoEQ-NHKX-Rqgh 253 Work Phone: Comment on above:Reference Range: 12.0 - 16.0MCHC (RBC) [Mass/Vol]31.6 g/dLbelow low thresholdSee RctcxQT-VGIJ-Eywy 253 Work Phone: Comment on above:Reference Range: 32.0 - 36.0MCV (RBC) [Entitic vol]97 fL80 - 222JS-HAPE-Fayn 253 Work Phone: Platelets (Bld) [#/Vol]287 10*3/uL150 - 450 WV-PNUP-Pvkd 253 Work Phone: RBC (Bld) [#/Vol]4.24 {x10E12/L}See UwtxkUL-YKOD-Fbip 1656A Work Phone: Comment on above:Reference Range: 4.00 - 5.20WBC (Bld) [#/Vol]5.9 10*3/uL4.4 - 11.8RY-JXHB-Wjdk 3247F Work Phone: No Panel Informationon {mL/min/1.73m2}>90 AU-MMID-Uget 6399Y Work Phone: Comment on above:CALCULATIONS OF ESTIMATED GFR ARE PERFORMED USING THE 2020 CKD-EPI STUDY REFIT EQUATION WITHOUT THERACE VARIABLE FOR THE IDMS-TRACEABLE CREATININE METHODS.https://jasn.asnjournals.org/content/early//ASN.0169778029 Office Visit (Primary Care Txt/Forms)on 33-44-6593Qltbie-up visit Diagnoses/Problems Assessed Encounter for immunization (V03.89) (Z23) Finger swelling (729.81) (M79.89) Orders Encounter for immunization Administered: Fluzone High-Dose Quadrivalent 0.7 ML Intramuscular Suspension Prefilled Syringe Finger swelling Start: methylPREDNISolone 4 MG Oral Tablet Therapy Pack (Medrol); USE DIRECTED Basic Metabolic Panel; Status:Complete; Done: 49Lom9195 12:16PM Complete Blood Count; Status:Complete; Done: 92Otz5855 12:16PM Sedimentation Rate, Erythrocyte; Status:Complete; Done: 22Ieh1774 12:16PM Uric Acid, Serum; Status:Complete; Done: 65Ypr1326 12:16PM Xray Finger(s) Min 2 View; Status:Hold For - Scheduling; Requested for:29Hqh4312; Laterality : Left Radiologist to Determine Optimal [...] DAILY. Allergies Medication Codeine Derivatives Tylenol NonMedication [place] mold Mold Vitals Vital Signs Recorded: 26Ter8743 11:45AM Temperature: 98.2 F Heart Rate: 72 Respiration: 18 Systolic: 126 Diastolic: 80 Weight: 167 lb (more content not included)...NormalUH TouchworksSEDIMENTATION RATE, ERYTHROCYTEon 03-98-6664BXASTGZEHQCYY RATE, ERYTHROCYTE9 mm/hNormal0 - 30 [facility]'s HospitalComment on above:Result Comment: Please note new reference ranges as of 12/03/2021. Ran on alternate instrument Reference Ranges: Males: 0-15 Females: 0-20 Children under 18: 0-10Performed By: #### ESRWS #### [address] [id number] Rate, Erythrocyteon 09-74-9260XZS (Bld) [Velocity]9 mm/h0 - 19FJ-TZCI-Adib 9096S Work Phone: Comment on above:Please note new reference ranges as of 12/03/2021.Ran on alternate instrumentReference Ranges: Males:0-15 Females: 0- 20 Children under 18: 0-10Tobacco Screening.on 86-92-6772Nxwf risk assessmentb) One or more falls in the last eargYL-PATJ-Ocem 9543E Work Phone: Tobacco use status CPHSb) BxNX-FGQX-Jdjd 7847P Work Phone: URIC ACIDon 03-10-6341Yulkb [Mass/Vol]4.2 mg/dLNormal 2.3 - 6.7[facility] Children's HospitalComment on above:Result Comment: Venipuncture immediately after or during the administration of Metamizole may lead to falsely low results. Testing should be performed immediately prior to Metamizole dosing.Performed By: #### URIC #### [address] [phone] Acid, Serumon 14-84-4178Xzpbo [Mass/Vol]4.2 mg/dL2.3 - 6.7KL-SDVK-Ccgs 1936P Work Phone: Comment on above:Venipuncture immediately after or during the administration of Metamizole may lead to falsely low results. Testing should be performed immediately prior to Metamizole dosing.DIGITAL MAMM SCREENING W/ TOMOon 69-35-5407HEYXFLN MAMM SCREENING W/ TOMOMRN: [id number] Patient Name: BRIGITTE HIGH STUDY: DIGITAL MAMM SCREENING W/ CLAUDIA; 11/20/2021 12:37 pm ACCESSION NUMBER(S): [id number] ORDERING CLINICIAN: JING CAMPBELL INDICATION: Right breast [...] any future breast imaging appointments, please call [phone] ([phone]). Electronically signed by: BUCK HIGUERA MDGeisinger-Shamokin Area Community HospitalMamm - Screening Mammogram w/ Tomosynthesison 22-02-5354XD Breast ScreeningNormJackson [facility] Center Work Phone: No Panel Informationon 36-51-4581Jmqfpn click on the link to view the study imagesNoEncompass Health Rehabilitation Hospital of [facility] Work Phone: [phone]-VYDO-Laila 2535A Work Phone: SPINE, LUMBOSACRAL MIN 4 VIEWSon 47-29-8744PGMBT, LUMBOSACRAL MIN 4 VIEWSMRN: [id number] Patient Name: BRIGITTE HIGH STUDY: Lumbar Spine, 5 views. INDICATION: lbp M54.9: Back pain. COMPARISON: 07/15/2020. ACCESSION NUMBER(S): [id number] ORDERING CLINICIAN: JING CAMPBELL FINDINGS: Moderate levoscoliosis centered in the mid lumbar region. Grade 1 L5-S1 anterolisthesis noted. Moderate spondylosis at L2-3 with disc height loss and endplate sclerosis. Mild spondylosis at L3-4. Dfoc-kp-fheicnia facet joint degenerative changes throughout the lumbar spine. No spondylolysis on the oblique views. Atherosclerosis of the abdominal aorta noted Vertebral body heights are preserved. Posterior elements are intact. IMPRESSION: 1. Moderate levoscoliosis with lumbar spine degenerative changes as described above that are most pronounced at L2-3 and L3-4. 2. Grade 1 L5-S1 anterolisthesis. Electronically signed by: POORNIMA MONTERO MDGeisinger-Shamokin Area Community HospitalTobacco Screening.on 09-60-0478Bvvm menstrual period start date [facility] Work Phone: Tobacco use status CPHSb) [facility] Work Phone: CHEST 2 VIEW PA AND LATon 29-46-5767VLOVL 2 VIEW PA AND LATMRN: [id number] Patient Name: BRIGITTE HIGH STUDY: TH CHEST 2 VIEW PA AND LAT; INDICATION: pain. Cough. History of breast cancer and history of smoking. COMPARISON: 07/27/2020 ACCESSION NUMBER(S): [id number] ORDERING CLINICIAN: JING CAMPBELL FINDINGS: The cardiac [...] cardiopulmonary process. Electronically signed by: POORNIMA MONTERO MDGeisinger-Shamokin Area Community HospitalCult, Urineon 50-81-0298Ogekvhft identified Cx Nom (U)KR-CFFH-Guvi 2535A Work Phone: Laboratory - Chemistry and Chemistry - challengeon 34-03-8324Neypwxk BCP dye [Mass/Vol]4.2 g/dL3.4 - 5.3OD-RNRY-Dgeo 2535A Work Phone: aLP [Catalytic activity/Vol]81 U/L33 - 911HD-PRRD-Elnx 2535A Work Phone: aLT With P-5'-P [Catalytic activity/Vol]24 U/L7 - 45 DZ-GFPZ-Tvbu 2535A Work Phone: Comment on above:Patients treated with Sulfasalazine may generate falsely decreased results for ALT.Anion gap [Moles/Vol]12 mmol/L10 - 95VF-WGDG-Fsff 2535A Work Phone: aST With P-5'-P [Catalytic activity/Vol]22 U/L9 - 39 XM-DDNM-Zayy 2535A Work Phone: Bilirubin [Mass/Vol]0.4 mg/dL0.0 - 1.8JW-BKUN-Jbla 2535A Work Phone: Calcium [Mass/Vol]9.6 mg/dL8.6 - 10.5QO-YBTL-Wdgu 2535A Work Phone: Chloride [Moles/Vol]107 mmol/L98 - 591AO-LHPQ-Mpik 2535A Work Phone: CO2 [Moles/Vol]26 mmol/L21 - 69RT-EMTS-Kwng 2535A Work Phone: Creatinine [Mass/Vol]0.65 mg/dLSee DpdhiWY-TQAF-Jhjk 2535A Work Phone: Comment on above:Reference Range: 0.50 - 1.05Glucose [Mass/Vol]89 mg/dL74 - 90OB-ARCX-Bqyc 253 Work Phone: Potassium [Moles/Vol]4.7 mmol/L3.5 - 5.0AI-QTUW-Iqau 253 Work Phone: Protein [Mass/Vol]7.2 g/dL6.4 - 8.0MR-ZYKY-Lnnh 253 Work Phone: Sodium [Moles/Vol]140 mmol/L136 - 677UF-PWQZ-Iixt Work Phone: Urea nitrogen [Mass/Vol]12 mg/dL6 - 92US-XOSA-Lmjz Work Phone: Laboratory - Hematology and Cell countson 04-04-2021 Erythrocyte distribution width (RBC) [Ratio]13.8 %See IdipeDF-EEXX-Gntg 253 Work Phone: Comment on above:Reference Range: 11.5 - 14.5 Hematocrit (Bld) [Volume fraction]41.7 %See XmsioBZ-JYYC-Elqf 253 Work Phone: Comment on above:Reference Range: 36.0 - 46.0 Hemoglobin (Bld) [Mass/Vol]13.2 g/dLSee BbrvrER-JAWC-Fpij 2535A Work Phone: Comment on above:Reference Range: 12.0 - 16.0MCHC (RBC) [Mass/Vol]31.7 g/dLbelow low thresholdSee WmyllTS-ADOP-Iykb 2535A Work Phone: Comment on above:Reference Range: 32.0 - 36.0MCV (RBC) [Entitic vol]98 fL80 - 002EZ-TNUR-Gzit 2535A Work Phone: Platelets (Bld) [#/Vol]247 10*3/uL150 - 450 VZ-OVAU-Fqqy 2530K Work Phone: RBC (Bld) [#/Vol]4.26 {x10E12/L}See OubraXQ-QYZM-Dkkh 2535A Work Phone: Comment on above:Reference Range: 4.00 - 5.20WBC (Bld) [#/Vol]4.7 10*3/uL4.4 - 11.2TO-PXUR-Mlgq 2538W Work Phone: Lipid Panelon 53-40-5418Iqblzxcazbn [Mass/Vol]206 mg/dLabove high threshold0 - 573MP-ORXU-Dsky 2535A Work Phone: Comment on above:. AGE DESIRABLE BORDERLINE HIGH HIGH 0-19 Y [...] should be performed immediately prior to Metamizole dosing.Cholesterol in HDL [Mass/Vol]79.0 mg/yBAA-IOTJ-Gnsa 2538H Work Phone: Comment on above:. AGE VERY LOW LOW NORMAL HIGH 0-19 Y < 35 < 40 40-45 ---- 20-24 Y ---- < 40 >45 ---- >24 Y ---- < 40 40-60 >60. Cholesterol in LDL [Mass/Vol]95 mg/dL0 - 02MA-REPX-Erjb 2535A Work Phone: Comment on above:. NEAR BORD AGE DESIRABLE OPTIMAL HIGH HIGH VERY HIGH 0-19 Y 0 - 109 --- 110-129 >/= 130 ---- 20-24 Y 0 - 119 --- 120-159 >/= 160 ---- >24 Y 0 - 99 100-129 130-159 160-189 >/=190. Cholesterol.total/Cholesterol in HDL [Mass ratio]2.6 {ratio}TF-XGXJ-Dojy 5545F Work Phone: Comment on above:REF VALUESDESIRABLE < 3.4HIGH RISK > 5.0Triglyceride [Mass/Vol]161 mg/dLabove high threshold0 - 027WV-UYJS-Pnlm 2533Q Work Phone: Comment on above:. AGE DESIRABLE BORDERLINE HIGH HIGH VERY HIGH [...] should be performed immediately prior to Metamizole dosing.Lipid Panel32 mg/dL0 - 40 NO-RUIH-Mhba 2535J Work Phone: No Panel Informationon 04-04-2021>60>90YN-TJAV-Qgya 253LearnSomething Work Phone: Comment on above:CALCULATIONS OF ESTIMATED GFR ARE PERFORMED USING THE MDRD STUDY EQUATION FOR THE IDMS-TRACEABLE CREATININE METHODS. CLIN CHEM 2007;53:766-72Radiologyon 27-60-2331GM Chest 2 ViewsNormal MS-PJRJ-Vfgu 2539U Work Phone: Urinalysison 43-95-3059Rrdnp (U)YELLOWSee Below RF-AUAP-Tywu 2535A Work Phone: Comment on above:Reference Range: STRAW,YELLOWGlucose Ql (U)GpkmogcxTAHXOSMMFM-TLQS-Ojlk 253 Work Phone: Ketones Ql (U)MeluantiUTNCXEWOWF-GOEE-Shey 2535A Work Phone: Leukocyte esterase Test strip Ql (U)LARGE (3+)Abnormal TBJUPESXXM-PRVY-Bxpy 253 Work Phone: pH (U)5.0 [pH]5.0 - 8.2XV-FGIW-Sraa 2535A Work Phone: Protein (U) [Mass/Vol]PuhvljagFWQALYJIYV-UQQV-Ivrk 2535A Work Phone: RBC (U) [#/Vol]UgrbcxelQQVILNRCOS-RYVP-Utzk 253 Work Phone: Specific gravity (U) [Rel density]1.016 1See Below MI-DFTH-Yhhb 2535A Work Phone: Comment on above:Reference Range: 1.005 - 1.035 HimsucpzsjGtoygvhwJFZFXVNOKV-OFYX-Pvfl 253 Work Phone: Urinalysis<2.00.0 - 1.9KZ-DYIX-Shug 253 Work Phone: [phone]-INJU-Laila 253 Work Phone: Urinalysis, Microscopicon 04-86-6775Iarctjxzqh, Microscopic<05-3UJ-YKRX-Laila 253 Work Phone: Urinalysis, Microscopic1 {/HPF}1-5ST-FHPL-Laila 253 Work Phone: Vitamin D 25-Hydroxyon 83-76-399394101826-srilkcrokmjibp D3 [Mass/Vol]34 ng/eKVP-JITM-Mwka 2535A Work Phone: Comment on above:.DEFICIENCY: < 20 NG/MLINSUFFICIENCY: 20-29 NG/MLSUFFICIENCY: 30-100 NG/MLTHIS ASSAY ACCURATELY QUANTIFIES THE SUM OFVITAMIN D3, 25-HYDROXY AND VIT D2,25-HYDROXY.BILATERAL KNEE 3 VIEWSon 68-57-1427GKIBZFRDF KNEE 3 VIEWSMRN: [id number] Patient Name: BRIGITTE HIGH STUDY: BILATERAL KNEE; 3 VIEWS; 02/20/2021 12:06 pm INDICATION: right lateral knee pain. COMPARISON: None. ACCESSION NUMBER(S): [id number] ORDERING CLINICIAN: JING CAMPBELL FINDINGS: Bilateral knees, three views of each Mild tricompartmental osteophytosis bilaterally. There is no joint space narrowing. There is no effusion. No fracture seen IMPRESSION: Mild degenerative changes with osteophyte formation Electronically signed by: RIKY MCDONOUGH MDGeisinger-Shamokin Area Community HospitalC Reactive Protein, Serumon [id number] [Mass/Vol]0.59 mg/ySAD-DFQM-Ppnk 6244C Work Phone: Comment on above:REF VALUE< 1.00Citrulline Antibodyon [id number] citrullinated peptide IgG Qn<3GU-BJKE-Koxw 7395F Work Phone: Comment on above:THE TEST FOR ANTIBODIES SPECIFIC FOR CYCLICCITRULLINATED PEPTIDE (CCP) HAS SHOWN TO BEVALUABLE IN THE DIAGNOSIS OF RHEUMATOIDARTHRITIS. THE DIAGNOSTIC VALUE OFANTIBODIES TO CCP IN JUVENILE RHEUMATOIDARTHRITIS PATIENTS HAS NOT BEEN DETERMINED.ANTIBODIES TO CENTROMERE OR SS-A AND MYELOMA IGG MAY BE REACTIVE IN THIS ASSAY. REF VALUES NEGATIVE < 3 U/ML POSITIVE >=3 U/MLLaboratory - Chemistry and Chemistry - challengeon [id number] BCP dye [Mass/Vol]4.3 g/dL3.4 - 5.5AF-DYAD-Jooq 3691L Work Phone: aLP [Catalytic activity/Vol]70 U/L33 - 238JI-BXYI-Vore 2531T Work Phone: aLT With P-5'-P [Catalytic activity/Vol]23 U/L7 - 45 EU-NLLW-Hupo 2536J Work Phone: Comment on above:Patients treated with Sulfasalazine may generate falsely decreased results for ALT.Anion gap [Moles/Vol]13 mmol/L10 - 21DG-OCTS-Ysuu 2535A Work Phone: aST With P-5'-P [Catalytic activity/Vol]27 U/L9 - 39 XA-QDIU-Kdxh Work Phone: Bilirubin [Mass/Vol]0.5 mg/dL0.0 - 1.2JY-XMUW-Daqb Work Phone: Calcium [Mass/Vol]9.6 mg/dL8.6 - 10.6WO-CQFV-Medg Work Phone: Chloride [Moles/Vol]107 mmol/L98 - 304VH-LCLA-Uwda Work Phone: CO2 [Moles/Vol]23 mmol/L21 - 84TW-BEYN-Kyow Work Phone: Creatinine [Mass/Vol]0.71 mg/dLSee BcgdoZR-MXGJ-Tpbx Work Phone: Comment on above:Reference Range: 0.50 - 1.05Glucose [Mass/Vol]82 mg/dL74 - 32UY-ALMG-Bxle Work Phone: Potassium [Moles/Vol]4.2 mmol/L3.5 - 5.3BO-HKQD-Xuqz Work Phone: Protein [Mass/Vol]7.2 g/dL6.4 - 8.9NC-BNOZ-Xave Work Phone: Sodium [Moles/Vol]139 mmol/L136 - 984AS-RJRR-Qqol 253 Work Phone: Urea nitrogen [Mass/Vol]18 mg/dL6 - 48JJ-PPHC-Fxcm Work Phone: Laboratory - Hematology and Cell countson 02-20-2021 Erythrocyte distribution width (RBC) [Ratio]14.3 %See SnwlcQH-CYGP-Mcab 253 Work Phone: Comment on above:Reference Range: 11.5 - 14.5 Hematocrit (Bld) [Volume fraction]41.3 %See XrtqoKB-DMDD-Kiiw 253 Work Phone: Comment on above:Reference Range: 36.0 - 46.0 Hemoglobin (Bld) [Mass/Vol]13.0 g/dLSee PouaaBL-EIYG-Ahpy 2535A Work Phone: Comment on above:Reference Range: 12.0 - 16.0MCHC (RBC) [Mass/Vol]31.5 g/dLbelow low thresholdSee VloanJN-YOGU-Sohl 2535A Work Phone: Comment on above:Reference Range: 32.0 - 36.0MCV (RBC) [Entitic vol]100 fL80 - 305KT-LSNG-Bmon 2535A Work Phone: Platelets (Bld) [#/Vol]261 10*3/uL150 - 450 BU-THJN-Gzkd 253 Work Phone: RBC (Bld) [#/Vol]4.13 {x10E12/L}See DlltyBP-QLTP-Iapi 253 Work Phone: Comment on above:Reference Range: 4.00 - 5.20WBC (Bld) [#/Vol]6.0 10*3/uL4.4 - 11.1VA-SIDP-Egwq 253 Work Phone: Laboratory - Serology - non-microon 51-82-1454Mnfyofw Ab Hep2 substrate Ql (S)RnxkbfvqQXCYMZMUVH-PAIR-Iexj 2535A Work Phone: Comment on above:The Antinuclear Antibody (JACOB) test was performed using indirect immunofluorescence assay with HEp-2 cells slide.No Panel Informationon 02-20-2021>60>15TU-LXCU-Ttxw 2535A Work Phone: Comment on above:CALCULATIONS OF ESTIMATED GFR ARE PERFORMED USING THE MDRD STUDY EQUATION FOR THE IDMS-TRACEABLE CREATININE METHODS. CLIN CHEM 2007;53:766-72Radiologyon 93-05-4052CL Knee - bilateral 3 VlojuQhbohnTJ-DIVA-Zndp Cintric5P Work Phone: XR Knee - bilateral 3 ViewsPlease click on the link to view the study vbxucqCwudyvZI-DJBB-Dgon Cintric8O Work Phone: Rheumatoid Factor, Serum or Plasmaon 02-20-2021 Rheumatoid factor Nephelometry Qn (S)<100 - 65SI-XKGV-Khtq Cintric7Y Work Phone: Sedimentation Rate, Erythrocyteon 17-66-3520VAF (Bld) [Velocity]8 mm/h0 - 03BR-XBTJ-Wpit 2538S Work Phone: TSH - Thyroid Stimulating Hormone, Serumon 02-20-2021 TSH Qn2.66 m[IU]/LSee NbqosKJ-HMDN-Ufzd Cintric1M Work Phone: Comment on above:Reference Range: 0.44 - 3.98 TSH testing is performed using different testing methodology at [facility] than at other [facility]. Direct result comparisons should only be made within the same method.Uric Acid, Serumon 42-09-5389Njnbw [Mass/Vol]4.5 mg/dL2.3 - 6.5XV-UMWK-Sxrx Cintric1R Work Phone: Comment on above:Venipuncture immediately after or during the administration of Metamizole may lead to falsely low results. Testing should be performed immediately prior to Metamizole dosing.Vitamin B12, Serumon 76-43-1025Ifnllwywx (Vitamin B12) [Mass/Vol]306 pg/mL211 - 093YJ-EWWS-Mcgd Cintric0V Work Phone: CA27.29 (CA15-3)on 92-34-6985Rdybej Ag 27-29 Qn44.7 [arb'U]/mLabove high threshold0.0 - 38.4PV-FIFR-Chxz [employer] Work Phone: Comment on above:CA 27.29 testing is performed by chemiluminescent immunoassay using the Siemens Feathr. Values obtained with different analytic methods cannot [...] means for clinical diagnosis or patient management decisi ons.Complete Blood Count + Differentialon 71-68-4642Yjbonfaim/100 WBC (Bld)0.5 % 0.0 - 2.9ST-HSUO-Gqjd 2538Y Work Phone: Erythrocyte distribution width (RBC) [Ratio]14.1 %See JvtdkCT-HZPK-Mlco 253 Work Phone: Comment on above:Reference Range: 11.5 - 14.5 Hematocrit (Bld) [Volume fraction]36.1 %See VeqblMK-CZNE-Pgtg 253 Work Phone: Comment on above:Reference Range: 36.0 - 46.0 Hemoglobin (Bld) [Mass/Vol]11.9 g/dLbelow low thresholdSee DogwjDK-DMLH-Amzq Work Phone: Comment on above:Reference Range: 12.0 - 16.0 Lymphocytes/100 WBC (Bld)39.4 %See GsjhfTF-PCJR-Nyyh Work Phone: Comment on above:Reference Range: 13.0 - 44.0MCHC (RBC) [Mass/Vol]33.0 g/dLSee PacvzBD-CCUV-Cmhi 253 Work Phone: Comment on above:Reference Range: 32.0 - 36.0MCV (RBC) [Entitic vol]95 fL80 - 187LG-UWMS-Vfhv 253 Work Phone: Monocytes/100 WBC (Bld)7.5 %2.0 - 10.0EU-XFIL-Bzuh 253 Work Phone: Neutrophils/100 WBC (Bld)50.1 %See CtlmgHY-YQWP-Zdaw 253 Work Phone: Comment on above:Reference Range: 40.0 - 80.0Platelets (Bld) [#/Vol]225 10*3/uL150 - 916QJ-IIXF-Qmmm Work Phone: [phone] (Bld) [#/Vol]3.80 {x10E12/L}below low thresholdSee JvaveCJ-UQQE-Fjlv 253 Work Phone: Comment on above:Reference Range: 4.00 - 5.20WBC (Bld) [#/Vol]4.0 10*3/uLbelow low threshold4.4 - 11.5YB-KIOC-Fnhn Work Phone: Complete Blood Count + Differential0.02 {x10E9/L}See UhefcMR-QRGH-Spei 253 Work Phone: Comment on above:Reference Range: 0.00 - 0.10Complete Blood Count + Differential0.10 {x10E9/L}See TwcfoRV-ZJWD-Zgju Work Phone: Comment on above:Reference Range: 0.00 - 0.40Complete Blood Count + Differential0.30 {x10E9/L}See DeiypLT-JSMH-Zqbb Work Phone: Comment on above:Reference Range: 0.05 - 0.80Complete Blood Count + Differential1.57 {x10E9/L}See UxjvmYO-CIWH-Asdd 253 Work Phone: Comment on above:Reference Range: 0.80 - 3.00Complete Blood Count + Differential1.99 {x10E9/L}See TfkejVE-WTYM-Otwx 253 Work Phone: Comment on above:Reference Range: 1.60 - 5.50Complete Blood Count + Differential2.5 %0.0 - 6.4ZK-BNIJ-Srgl 253 Work Phone: Complete Blood Count + Differential0.0 %0.0 - 0.9 VL-ZWWV-Dopf 2535A Work Phone: Comment on above:Immature Granulocyte Count (IG) includes promyelocytes, myelocytes and metamyelocytes but does not include bands. Percent differential counts (%) should be interpreted in the context of the absolute cell counts (cells/L).Laboratory - Chemistry and Chemistry - challengeon 46-09-9994Yvpxgut BCP dye [Mass/Vol]4.4 g/dL3.4 - 5.6OZ-JOVI-Jizt 2535A Work Phone: aLP [Catalytic activity/Vol]66 U/L33 - 487PK-RRTH-Baux 253 Work Phone: aLT With P-5'-P [Catalytic activity/Vol]18 U/L7 - 45 IN-WYHU-Ixqr Cintric Work Phone: Comment on above:Patients treated with Sulfasalazine may generate falsely decreased results for ALT.Anion gap [Moles/Vol]10 mmol/L10 - 52NV-CVFS-Cbsx 2530V Work Phone: aST With P-5'-P [Catalytic activity/Vol]19 U/L9 - 39 UU-DBEI-Tpab 253 Work Phone: Bilirubin [Mass/Vol]0.5 mg/dL0.0 - 1.3YN-ZSSI-Wlzk 2535A Work Phone: Calcium [Mass/Vol]9.6 mg/dL8.6 - 10.0YV-DELP-Zzjv 2535A Work Phone: Chloride [Moles/Vol]108 mmol/Labove high cserqdgmd11 - 245VH-QDNH-Qkxc 2535A Work Phone: CO2 [Moles/Vol]25 mmol/L21 - 78JX-PICF-Cxus 2535A Work Phone: Creatinine [Mass/Vol]0.70 mg/dLSee BppzuAK-TRZP-Dnhy 2530R Work Phone: Comment on above:Reference Range: 0.50 - 1.05Glucose [Mass/Vol]108 mg/dLabove high otvatjojo74 - 82TK-EUWE-Kqea 2539S Work Phone: Potassium [Moles/Vol]3.7 mmol/L3.5 - 5.9IF-WPJL-Cogb 2536C Work Phone: Protein [Mass/Vol]7.1 g/dL6.4 - 8.3OV-TXHA-Yyry 2535F Work Phone: Sodium [Moles/Vol]139 mmol/L136 - 432TS-FKMX-Kogm 2536R Work Phone: Urea nitrogen [Mass/Vol]16 mg/dL6 - 76QZ-RKIC-Qvwi 2538N Work Phone: No Panel Informationon 12-26-2020>60>33AI-KSKA-Zucl 2533L Work Phone: Comment on above:CALCULATIONS OF ESTIMATED GFR ARE PERFORMED USING THE MDRD STUDY EQUATION FOR THE IDMS-TRACEABLE CREATININE METHODS. CLIN CHEM 2007;53:766-72Mamm - Screening Mammogram w/ Tomosynthesison 47-68-0348ZJ Breast screeningInterpreted by: BAILEE DEGROOT QEJOZP09/21/20 08:23MRN: [id number] Name: RUFUSONI BRIGITTE STUDY:DIGITAL SCREENING RIGHT-SIDED MAMMOGRAM WITH BREAST TOMOSYNTHESIS ANDWITH CAD; 07/15/2020 9:51 am INDIC ATION:Routine screening. COMPARISON:12/30/2018 ORDERING CLINICIAN:JING CAMPBELL FINDINGS:2D and tomosynthesis images were reviewed at 1 mm slice thickness.Images were obtained in MLO and CC projections. The breast tissue is heterogeneously dense, which may obscure smallmasses. There are few stable scattered calcifications. No newsuspicious masses or calcifications are identified. There are stableareas of asymmetry. This study was interpreted with CAD. IMPRESSION:Nomammographic evidence of malignancy. BI- RADS CATEGORY: Category: 2 - Benign.Recommendation: 1 Year S creening.Electronically signed by: BAILEE HUTSON 07/17/20 08:63YifnuiAJ-LDLH-Lzay 2535A Work Phone: Comment on above:ORDER REVISED TO A DIGITAL MAMM SCREENING W/ CLAUDIA BY RADIOLOGIST; Original Order Number: [id number] 42-90-7466JV Cervical spine 3 viewsInterpreted by: YASMINE GIRON07/17/20 10:01MRN: [id number] Name: BRIGITTE HIGH STUDY:SPINE, CERVICAL, 2 OR [...] chest.Electronically signed by: YASMINE GIRON 07/17/20 10:01 LyxtmhEV-HDDP-Dein 2535A Work Phone: XR Lumbar spine AP and lateralInterpreted by: YASMINE GIRON07/17/20 10:02MRN: [id number] Name: BRIGITTE HIGH ST UDY:SPINE, LUMBOSACRAL; 2 OR 3 VIEWS INDICATION:Neck pain Cervicalgia M54.9 Dorsalgia, unspecified . COMPARISON:April 22, 2016 ORDERING CLINICIAN:JING CAMPBELL FINDINGS:Mild scoliosis unchanged. There is a moderate degree of multilevel lumbar degenerative changeat all levels from L2-S1 which has minimally progressed from prior.There is a mild anterolisthesis of 8mm of L4-L5 which has alsoprogressed. IMPRESSION:There is a moderate degree of multilevel lumbar degenerative changeat all levels from L2- S1 which has minimally progressed from prior.There is a mild anterolisthesis of 8 mm of L4-L5 which has alsoprogressed.Electronically signed by: YASMINE GIRON 07/17/20 10:33PtawgdCJ-VWAZ-Oodr 2535A Work Phone: KNEES BOTH STANDINGon 64-38-4756NFRYN BOTH STANDING DATE OF EXAM: May 07 2018 1:48PM CLINICAL HISTORY/ Patient Name: BRIGITTE HIGH STUDY: KNEES BOTH STANDING; 05/07/2018 1:48 pm INDICATION: cervical radiculopathy, bilat knee pain. COMPARISON: None. ACCESSION NUMBER(S): [id number] ORDERING CLINICIAN: JING CAMPBELL FINDINGS: No fracture or dislocation of either knee. Moderate joint space narrowing. Tiny patellar osteophytes. CONCLUSION: IMPRESSION: Moderate degenerative changes of the knees.[facility]SP[facility] 4 VIEWSon 56-42-9475YRKBP C MIN 4 VIEWSDATE OF EXAM: May 07 2018 1:48PM CLINICAL HISTORY/ Patient Name: BRIGITTE HIGH STUDY: SPINE C MIN 4 VIEWS; 05/07/2018 1:48 pm INDICATION: cervical radiculopathy, bilat knee pain. COMPARISON: None. ACCESSION NUMBER(S): [id number] ORDERING CLINICIAN: JING CAMPBELL FINDINGS: Anterior metallic [...] apparent complication. Degenerative changes of the cervical spine.[facility] HealthcareLUMBAR SP WO CONTRASTon 87-41-7556CAFENL SP WO CONTRASTSTUDY:LUMBAR SP WO CONTRAST; 10/18/2017 8:10 amINDICATION:LUMBAR RADICULOPATHY (M54.16).COMPARISON:04/29/2016ACCESSION NUMBER(S):[id number] CLINICIAN:Jing CampbellTECHNIQUE:Sagittal and axial T1 and T2 weighted images of the lumbar spine wereacquired.FINDINGS:Alignment: There remains mild levoscoliosis without listhesis.Vertebrae/Intervertebral Discs: The vertebral bodies demonstrateex pected height.The marrow signal is within normal limits. [...] right compromise offoramina.L5-S1: There is posterior disc bulgewith some facet hypertrophy.There is effacement of anterior epidural fat and mild narrowing ofthe transverse diameter of the canal from epidural fat but no greatercanal stenosis. 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 There has been some progression tonow moderate canal stenosisat L4-5.Compromise of foramen remains most pronounced yet moderate to theright at L3-4 and L4-5.[facility], [facility]NormalSCom[facility] Vital Signs Date TimeVital SignValuePerforming IpjivyutxJkkfszvk23-11-2173 09:58-0400Body mass index (BMI) [Ratio]25.64 kg/t8IluflvqCarlito Horvath MD Work Phone: [facility]-2025 09:58-0400 Body bkrinombhfy10.5 [degF]Carlito Horvath MD Work Phone: [facility]06-20-2025 09:58-0400 Body .9 kgCarlito Horvath MD Work Phone: [facility]06-20-2025 09:58-0400 Diastolic blood hdhmaotf78 mm[Hg]Carlito Horvath MD Work Phone: [facility]06-20-2025 09:58-0400 Heart rate66 /minCarlito Horvath MD Work Phone: [facility]06-20-2025 09:58-0400 Respiratory rate16 /minCarlito Horvath MD Work Phone: [phone]06-20-2025 09:58-0400 SaO2% (BldA) [Mass fraction]97 %Carlito Horvath MD Work Phone: [facility]06-20-2025 09:58-0400 Systolic blood akztbeyo761 mm[Hg]Carlito Horvath MD Work Phone: [facility]04-29-2025 14:10-0400 Body .3 kgCorey Carmen DO Work Phone: [facility] InstituteQiqojkkzza10-97-8442 14:10-0400Diastolic blood cwsinpvn35 mm[Hg]Danielito Carmen DO Work Phone: [phone] InstituteDyhvyhkeox36-51-0109 14:10-0400Systolic blood fsynqfty820 mm[Hg]Danielito Carmen DO Work Phone: [facility] InstituteAiypphmvzf80-90-9746 08:43-0400Body .1 cmLexx Diop MD Work Phone: 1(150)[facility]04-24-2025 08:43-0400Body mass index (BMI) [Ratio]26.63 kg/f1SsoseqmLexx Diop MD Work Phone: [phone])[facility]04-24-2025 08:43-0400Body mcitxwunlvp63.11 [degF]Lexx Diop MD Work Phone: [phone]04-24-2025 08:43-0400Body nyxzdm43.58 kgLexx Diop MD Work Phone: [phone])[facility]04-24-2025 08:43-0400Diastolic blood tnvqlbgy31 mm[Hg]Lexx Diop MD Work Phone: 1(934)[facility]04-24-2025 08:43-0400Heart rate 68 /minLexx Diop MD Work Phone: 1(773)[facility]04-24-2025 08:43-3267IxQ1% (BldA) [Mass fraction]96 %Lexx Diop MD Work Phone: 1(989)[facility]04-24-2025 08:43-0400Systolic blood ihvjslix587 mm[Hg]Lexx Diop MD Work Phone: [phone])[facility]03-27-2025 09:15-0400Body .1 cmLexx Diop MD Work Phone: 1(479)[facility]03-27-2025 09:15-0400Body mass index (BMI) [Ratio]26.96 kg/s2MgfbiqhLexx Diop MD Work Phone: [phone])[facility]03-27-2025 09:15-0400Body jqzlmxojlxg43.2 [degF]Lexx Diop MD Work Phone: 1(017)[facility]03-27-2025 09:15-0400Body yemqdu84.48 kgLexx Diop MD Work Phone: [phone])[facility]03-27-2025 09:15-0400Diastolic blood vykvhafe32 mm[Hg]Lexx Diop MD Work Phone: 1(758)[facility]03-27-2025 09:15-0400Heart rate 86 /minLexx Diop MD Work Phone: 1(039)[facility]03-27-2025 09:15-0084AvF9% (BldA) [Mass fraction]97 %Lexx Diop MD Work Phone: [phone])[facility]03-27-2025 09:15-0400Systolic blood hhvgancr123 mm[Hg]eLxx Diop MD Work Phone: [facility]02-25-2025 10:35-0500Body aezqkd748.1 cmEjeanine Karen MEDICAL RECORDS TECHNICIAN.PHARMACY TECHNICIAN ASSISTANT Work Phone: [facility] Shazgm74-26-6908 10:35-0500Body mass index (BMI) [Ratio]27.36 kg/g1Wtsxs Karen MEDICAL RECORDS TECHNICIAN.PHARMACY TECHNICIAN ASSISTANT Work Phone: [place] Izlneg18-98-0287 10:35-0500Body .57 kgChristi Karen MEDICAL RECORDS TECHNICIAN.PHARMACY TECHNICIAN ASSISTANT Work Phone: [place] Zblaxk80-06-4031 10:35-0500Diastolic blood kyacxsny61 mm[Hg]Chritsi Karen MEDICAL RECORDS TECHNICIAN.PHARMACY TECHNICIAN ASSISTANT Work Phone: [place] Attvxh60-34-8650 10:35-0500Heart rate67 /min Christi Karen MEDICAL RECORDS TECHNICIAN.PHARMACY TECHNICIAN ASSISTANT Work Phone: [place] Sjbmji71-02-8506 10:35-0500Systolic blood trutorxg013 mm[Hg]Christi Karen MEDICAL RECORDS TECHNICIAN.PHARMACY TECHNICIAN ASSISTANT Work Phone: [facility] Crulpx86-05-7918 10:23-0400Body mass index (BMI) [Ratio]26.89 kg/k1BusubktCarlito Horvath MD Work Phone: [facility]06-21-2024 10:23-0400 Body ztoevxvdwee55.9 [degF]Carlito Horvath MD Work Phone: [facility]06-21-2024 10:23-0400 Body xxelki47.3 kgCarlito Horvath MD Work Phone: [facility]06-21-2024 10:23-0400 Diastolic blood mm[Hg]Carlito Horvath MD Work Phone: [facility]06-21-2024 10:23-0400 Heart rate70 /minCarlito Horvath MD Work Phone: [facility]06-21-2024 10:23-0400 Respiratory rate16 /minCarlito Horvath MD Work Phone: [facility]06-21-2024 10:23-0400 SaO2% (BldA) [Mass fraction]96 %Carlito Horvath MD Work Phone: [facility]06-21-2024 10:23-0400 Systolic blood mm[Hg]Carlito Horvath MD Work Phone: [facility]05-26-2024 09:57-0400 Body brofmq675.1 cmMD Star Recinos Work Phone: [phone]05-26-2024 09:57-0400 Body mass index (BMI) [Ratio]26.8 kg/m2MD Star Recinos Work Phone: [phone] [place], [place] 7665605-26-2024 09:57-0400 Body ospljswvawz94.8 [degF]MD Star Recinos Work Phone: [phone]05-26-2024 09:57-0400 Body .02 kgMD Star Recinos Work Phone: [phone]05-26-2024 09:57-0400 Diastolic blood ugymoqld43 mm[Hg]MD Star Recinos Work Phone: [phone]05-26-2024 09:57-0400 Heart rate77 /minMD Star Recinos Work Phone: [phone]05-26-2024 09:57-0400 Respiratory rate16 /minMD Star Recinos Work Phone: [phone]05-26-2024 09:57-0400 SaO2% (BldA) [Mass fraction]98 %MD Star Recinos Work Phone: [phone]05-26-2024 09:57-0400 Systolic blood nqdaetun628 mm[Hg]MD Star Recinos Work Phone: [phone]01-29-2024 11:36-0500 Blood Pressure LocationPatrick JORJE [facility]01-29-2024 11:36-0500Diastolic blood kxqwlxef17 mm[Hg]Star RECINOS [facility]01-29-2024 11:36-0500Heart rate79 /minPatrick RECINOS [facility]01-29-2024 11:36-0500Respiratory rate16 /minPatrick JORJE [facility]01-29-2024 11:36-0500Systolic blood yitozwyn586 mm[Hg]Star RECINOS [facility]05-16-2023 16:07-0400Body erbcgs380.1 cmPamelviky S Ladonna Work Phone: [phone]-[facility]abb [facility] DO Work Phone: 1(509) 163-484005-16-2023 16:07-0400Body mass index (BMI) [Ratio] 26.96 kg/f6Bxxmqy S Ladonna Work Phone: [phone]-Asiekk [facility] DO Work Phone: 1(381) 170-560805-16-2023 16:07-0400Body surface area Derived from formula1.81 g9Gztmpj S Ladonna Work Phone: [phone]-Ihiyvi [facility] DO Work Phone: 1([phone]) 776-857605-16-2023 16:07-0400Body ydppdq89.48 kgParyliea S Ladonna Work Phone: [phone]-Mhysno [facility] DO Work Phone: 1([phone] 11:05-0400Body .83 cmJing Campbell Work Phone: [phone]-VDPD-[place]aila 6460S Work Phone: 1([phone]) 258-860810-03-2022 11:05-0400Body mass index (BMI) [Ratio] 28.73 kg/u0Bshkmsxzverena Campbell Work Phone: mp-WSPC-[place] 8403T Work Phone: 1(328) 204-637410-03-2022 11:05-0400Body surface area Derived from formula1.84 l1Vapgcirs Saud Campbell Work Phone: mp-[facility] 8225P Work Phone: 1([phone] 154-347310-03-2022 11:05-0400Body veffotbvjbj64.5 [degF] Jing Villavicencio Adrian Work Phone: mp-[facility] 8009N Work Phone: [phone] 11:05-0400Body rleyjl89.11 kgMicverena Campbell Work Phone: mp-[facility] 7983L Work Phone: 1([phone] 255-125610-03-2022 11:05-0400Diastolic blood mm[Hg] Jing Villavicencio Adrian Work Phone: mp-[facility] 3325T Work Phone: [phone] 11:05-0400Heart rate72 /minMicverena Saud Campbell Work Phone: mp-[facility] 2700M Work Phone: 1(856) 437-656510-03-2022 11:05-0400Respiratory rate16 /minMicverena Villavicencio Adrian Work Phone: mp-[facility] 2533S Work Phone: 1([phone] 127-445010-03-2022 11:05-0364WwH9% (BldA) [Mass fraction]98 % Jing Campbell Work Phone: mp-[facility] 2539V Work Phone: 1(731) 559-488110-03-2022 11:05-0400Systolic blood mm[Hg] Jing Campbell Work Phone: mp-[facility] 0011C Work Phone: 1(703) 112-649509-16-2022 11:45-0400Body mass index (BMI) [Ratio] 27.79 kg/i5Bewhynvnverena Campbell Work Phone: mp-[facility] 2535K Work Phone: 1(169) 206-567609-16-2022 11:45-0400Body surface area Derived from formula1.83 d1Facmirlnverena Campbell Work Phone: mp-[facility] 2252V Work Phone: 1(305) [phone] 11:45-0400Body lajggdwztkx56.2 [degF] Jing Saud Adrian Work Phone: mp-[facility] 2532C Work Phone: 1([phone] 11:45-0400Body intatu11.75 kgMicverena Campbell Work Phone: [facility] 0085S Work Phone: 1([phone] 135-673709-16-2022 11:45-0400Diastolic blood ceydaldw97 mm[Hg] Jing Campbell Work Phone: mp-[facility] 8706P Work Phone: 1(254) 630-838409-16-2022 11:45-0400Heart rate72 /minMichelle Saud Campbell Work Phone: mp-[facility] 2536M Work Phone: 1(196) [phone] 11:45-0400Respiratory rate18 /minMichelle Saud Campbell Work Phone: mp-[facility] 2531J Work Phone: 1(679) 179-339309-16-2022 11:45-2788LiB0% (BldA) [Mass fraction]98 % Jing Campbell Work Phone: mp-[facility] 0814D Work Phone: 1(949) 795-125709-16-2022 11:45-0400Systolic blood xlanptni742 mm[Hg] Jing Campbell Work Phone: mp-[facility] 6936I Work Phone: 1(549) 155-276206-13-2022 09:18-0400Body mhkyfc607.1 cmJing Campbell Work Phone: 1([phone]-JZY [facility] Work Phone: 1(512) 451-972106-13-2022 09:18-0400Body mass index (BMI) [Ratio] 28.11 kg/p4DsdkmxvnJing Campbell Work Phone: 1([phone]-VIW [facility] Work Phone: 1(968) 479-701406-13-2022 09:18-0400Body surface area Derived from formula1.84 m8CifuqsrtJing Campbell Work Phone: 1(696) [phone]-MIY [facility] Work Phone: 1(821) 351-572906-13-2022 09:18-0400Body .61 kgMicverena Frankliney Work Phone: 1(679) [phone]-EGB [facility] Work Phone: 1(792) 548-384106-13-2022 09:18-0400Diastolic blood fegnufgb44 mm[Hg] Jing Campbell Work Phone: 1(341) [phone]-EYT [facility] Work Phone: 1(148) [phone] 09:18-0400Systolic blood lswjltli224 mm[Hg] Jing Campbell Work Phone: 1([phone]-MQM [facility] Work Phone: 1(608) [phone] 13:51-0400Body ncmyih909.1 cmJing Campbell Work Phone: 1(662) [phone]-[facility]QP[facility] Work Phone: 1(864) 149-703704-26-2022 13:51-0400Body mass index (BMI) [Ratio] 28.62 kg/f1Ctpbqbho R Adrian Work Phone: [facility] Work Phone: 1(218) 308-954904-26-2022 13:51-0400Body surface area Derived from formula1.86 e6LupjiykuJing Campbell Work Phone: 1(211) [phone]-FKAPied[facility] Work Phone: 1(622) 320-215104-26-2022 13:51-0400Body yzaqhr83.02 kgMicverena Campbell Work Phone: 1(402) [phone]-VWPPied[facility] Work Phone: 1(179) [phone] 13:51-0400Diastolic blood mm[Hg] Jing Campbell Work Phone: 1(592) [phone]-SZIPiedmont [facility] Work Phone: 1(983) [phone] 13:51-0400Systolic blood jixdexdh932 mm[Hg] Jing Campbell Work Phone: 1(999) [phone]-PDOPiedmont [facility] Work Phone: 1(373) 633-978204-04-2022 11:29-0400Body mass index (BMI) [Ratio] 28.62 kg/u4QjbcnecsJing Campbell Work Phone: [facility] 6551F Work Phone: 1(639) 106-514504-04-2022 11:29-0400Body surface area Derived from formula1.86 b2AlcfvldhJing Campbell Work Phone: [facility] [address]G Work Phone: 1(912) 834-159504-04-2022 11:29-0400Body .2 [degF] Jing Campbell Work Phone: [facility] 8348U Work Phone: 1(829) 123-850004-04-2022 11:29-0400Body .02 kgJing Campbell Work Phone: [facility] 5102Q Work Phone: 1(978) 471-693204-04-2022 11:29-0400Diastolic blood vygwjpvz08 mm[Hg] Jing Campbell Work Phone: [facility] 8577X Work Phone: 1(746) 311-446604-04-2022 11:29-0400Heart rate76 /minJing Campbell Work Phone: [facility] 2553P Work Phone: 1(570) [phone] 11:29-0400Respiratory rate18 /minJing Campbell Work Phone: [facility] 9972K Work Phone: 1(431) 519-276804-04-2022 11:29-0099EgM5% (BldA) [Mass fraction]98 % Jing Campbell Work Phone: [facility] 7217F Work Phone: 1(492) 110-613604-04-2022 11:29-0400Systolic blood lttimxda421 mm[Hg] Jing Campbell Work Phone: [facility] 2714I Work Phone: 1(464) 626-971710-12-2021 11:20-0400Diastolic blood sotleldr48 mm[Hg] Jing Campbell Work Phone: [facility] 0417C Work Phone: 1(702) 943-432710-12-2021 11:20-0400Systolic blood omxaeciu261 mm[Hg] Jing Campbell Work Phone: [facility] 5251I Work Phone: 1(927) [phone] 10:35-0400Body naavgd460.1 cmMicverena Campbell Work Phone: [facility] 2539P Work Phone: 1(995) 536-401310-12-2021 10:35-0400Body mass index (BMI) [Ratio] 28.62 kg/g8Xeajtloiverena Campbell Work Phone: [facility] 2537E Work Phone: 1(543) 497-968710-12-2021 10:35-0400Body surface area Derived from formula1.86 z7Bjebweqwverena Campbell Work Phone: [facility] [address]J Work Phone: 1(959) [phone] 10:35-0400Body ldbmphwuudm89.5 [degF] Jing Villavicencio Adrian Work Phone: [facility] [address] Work Phone: 1(980) [phone] 10:35-0400Body ynivjb39.02 kgMicverena Campbell Work Phone: [facility] [address]O Work Phone: 1(769) [phone] 10:35-0400Diastolic blood mm[Hg] Jing Villavicencio Adrian Work Phone: [facility] [address]B Work Phone: 1(970) [phone] 10:35-0400Heart rate80 /minMicmasoodle Saud Campbell Work Phone: [facility] 2538U Work Phone: 1(611) [phone] 10:35-0400Respiratory rate16 /minMichelle Saud Campbell Work Phone: [facility] 25[address]S Work Phone: 1(160) 211-312810-12-2021 10:35-2751RtL6% (BldA) [Mass fraction]98 % Jing Campbell Work Phone: [facility] [address]W Work Phone: 1(792) 208-715210-12-2021 10:35-0400Systolic blood cbsgpkoq510 mm[Hg] Jing Frankliney Work Phone: [facility] [address] Work Phone: 1(487) 334-699909-24-2021 09:27-0400Body gmyhqo659.1 cmMicverena Frankliney Work Phone: 1(742) [phone][facility] Work Phone: 1(924) 391-453909-24-2021 09:27-0400Body mass index (BMI) [Ratio] 28.29 kg/d8Irfwpibrverena Frankliney Work Phone: 1(186) [phone]-[facility]fdpAsh[facility] Work Phone: 1(677) 389-578409-24-2021 09:27-0400Body surface area Derived from formula1.85 r1EkyssryxJing Frankliney Work Phone: 1(477) [phone]-JmfdAshland [facility] Work Phone: 1(438) [phone] 09:27-0400Body pmreeusnmam85.3 [degF] Jing Frankliney Work Phone: 1(136) [phone]-RzydAsh[facility] Work Phone: 1(740) 520-394709-24-2021 09:27-0400Body pzubga29.11 kgMicverena Villavicencio Adrian [facility]: [facility] Work Phone: 1(794) [phone] 09:27-0400Diastolic blood kyxibsns58 mm[Hg] Jing Campbell Work Phone: [facility] Work Phone: 1(995) 413-279209-24-2021 09:27-0400Heart rate69 /minMicverena Frankliney Work Phone: [facility] Work Phone: 1(963) [phone] 09:27-0400Systolic blood jnydxoap598 mm[Hg] Jing Villavicencio Adrian Work Phone: [facility] [place] Work Phone: 1(862) [phone] 09:17-0400Body dutdyc639.1 cmMicverena Campbell Work Phone: [facility] [address]H Work Phone: 1(764) [phone] 09:17-0400Body mass index (BMI) [Ratio] 28.46 kg/h6Xrxjbxmvverena Campbell Work Phone: [facility] 2534K Work Phone: 1(505) 191-555209-08-2021 09:17-0400Body surface area Derived from formula1.85 b7Xoizenaeverena Campbell Work Phone: [facility] [address]I Work Phone: 1(131) 615-856509-08-2021 09:17-0400Body mvcmhtipqnz60.7 [degF] Jing Campbell Work Phone: [facility] 25[address]K Work Phone: 1(190) [phone] 09:17-0400Body rdwnko84.57 kgMicverena Campbell Work Phone: [facility] 2539H Work Phone: 1(516) 281-790709-08-2021 09:17-0400Diastolic blood ceypzlot30 mm[Hg] Jing Villavicencio Adrian Work Phone: [facility] [address] Work Phone: 1(222) 244-450309-08-2021 09:17-0400Heart rate68 /minMicverena Villavicencio Adrian Work Phone: [facility] [address] Work Phone: 1(489) 215-712209-08-2021 09:17-0400Respiratory rate18 /minMicverena Villavicencio Adrian Work Phone: [facility] 4584P Work Phone: 1(224) [phone] 09:17-2112ToJ8% (BldA) [Mass fraction]98 % Jing Campbell Work Phone: [facility] 25[address]T Work Phone: 1(626) [phone] 09:17-0400Systolic blood splyxzsd147 mm[Hg] Jing Campbell Work Phone: [facility] 4[address]H Work Phone: 1(229) [phone] 15:27-0400Body acsajp807.37 cmMicverena Campbell Work Phone: [facility] 8874C Work Phone: 1(345) 610-685708-24-2021 15:27-0400Body mass index (BMI) [Ratio] 27.04 kg/y9Lmlkwsyrverena Campbell Work Phone: [facility] 4888L Work Phone: 1(688) [phone] 15:27-0400Body surface area Derived from formula1.83 u3Cmxmrtpyverena Campbell Work Phone: [facility] 1584M Work Phone: 1(895) [phone] 15:27-0400Body vyhzat94.84 kgMicverena Campbell Work Phone: [facility] 3533I Work Phone: 1(864) [phone] 10:54-0400Body mass index (BMI) [Ratio] 27.12 kg/y3WxjqxfogJing Campbell Work Phone: [facility] 8078M Work Phone: 1(913) [phone] 10:54-0400Body surface area Derived from formula1.81 o3Fjmmpblbverena Campbell Work Phone: [facility] 7886F Work Phone: 1(106) [phone] 10:54-0400Body onbecxysuik22.2 [degF] Jing Villavicencio Adrian Work Phone: [facility] 6783Z Work Phone: 1(598) 211-447707-27-2021 10:54-0400Body gqdhau27.94 kgMicverena Campbell Work Phone: [facility] [address] Work Phone: 1(510) [phone] 10:54-0400Diastolic blood ciulqvip06 mm[Hg] Jing Campbell Work Phone: [facility] 1342L Work Phone: 1(666) [phone] 10:54-0400Heart rate72 /minMicmasoodtapna Saud Campbell Work Phone: [facility] 6156K Work Phone: 1(323) [phone] 10:54-0400Respiratory rate16 /minMicverena Campbell Work Phone: [facility] 1995F Work Phone: 1(662) [phone] 10:54-8019FoF0% (BldA) [Mass fraction]98 % Jign Campbell Work Phone: [facility] 7413P Work Phone: 1(337) [phone] 10:54-0400Systolic blood mm[Hg] Jing Campbell Work Phone: [facility] 8308T Work Phone: 1(679) 768-562906-02-2021 09:29-0400Body mass index (BMI) [Ratio] 26.29 kg/s3Woytmsbx R Adrian Work Phone: [facility] 1175P Work Phone: 1(260) [phone] 09:29-0400Body surface area Derived from formula1.79 u4QwvpttbdJing Campbell Work Phone: [facility] 2533Z Work Phone: 1(170) [phone] 09:29-0400Body rqtnvctpewv96.8 [degF] Jing Saud Adrian Work Phone: [facility] [address]B Work Phone: 1(183) [phone] 09:29-0400Body .67 kgMicverena Campbell Work Phone: [facility] 2537L Work Phone: 1(780) 264-385106-02-2021 09:29-0400Diastolic blood pyfgsqig19 mm[Hg] Jing R Adrian Work Phone: [facility] 2532X Work Phone: 1(385) 142-815306-02-2021 09:29-0400Heart rate72 /minMicverena Campbell Work Phone: [facility] 2530Q Work Phone: 1(490) [phone] 09:29-0400Respiratory rate16 /minJing Campbell Work Phone: [facility] 2532S Work Phone: 1(797) 576-623306-02-2021 09:29-3153SmR3% (BldA) [Mass fraction]97 % Jing Villavicencio Adrian Work Phone: [facility] [address]E Work Phone: 1(635) [phone] 09:29-0400Systolic blood hkqjvzda354 mm[Hg] Jing Campbell Work Phone: [facility] [address]N Work Phone: Encounters Encounter DateEncounter TypeCare ProviderFacilityStart: 04-04-2025 End: 66-75-8800pfnehrywppYkannry R WATERSFacility:EU BellevueStart: 04-04-2025 End: 86-15-8021Tqozrzv encounter procedurePagermain RECINOS [facility] [place] start: 02-12-2025 End: 19-78-0966AqpannHblbspl F Osman MD Work Phone: [facility] V[facility] SurgeryStart: 01-14-2025 End: 80-89-1882Wmvpgd outpatient visit 25 minutesCarlito Horvath MD Work Phone: [facility] DrComment on above:Malignant neoplasm of central portion of right breast in female, estrogen receptor negative (Primary Dx); Iron deficiency; Dry eyes; Postmenopausal osteoporosis; Peptic ulcer disease; Closed sleeve fracture of left patella, sequelaStart: 01-14-2025 End: 49-27-5320yiaslcqtgcIMFGZLSouthwest General Health Centertart: 12-24-2024 End: 21-63-1093Hnpjzhzim Result EncounterCorey Carmen DO Work Phone: noms External Department UnsolicitedStart: 12-24-2024 End: 17-58-9548Yaiqbtusu Result EncounterCorey Carmen DO Work Phone: noms External Department UnsolicitedStart: 11-23-2024 End: 83-88-5435Pkkfai flowsheetCorey Carmen DO Work Phone: noms BCP OBStart: 11-23-2024 End: 34-49-5386Avcsip flowsheetCorey Carmen DO Work Phone: noms BCP OBStart: 11-23-2024 End: 86-94-5395Rysmqt outpatient visit 10 minutesCorey Carmen DO Work Phone: noms BCP OBComment on above:Breast cancer screening by mammogram; Wellness examinationStart: 11-23-2024 End: 54-06-6287Hbqljhd encounter statusCorey Carmen DO Work Phone: NO HealthcareStart: 11-23-2024 End: 08-60-7376dpvywlkdrrDCYHI Basil AvailableStart: 11-18-2024 End: 64-67-9360Timayg outpatient visit 15 minutesMosusie Diop MD Work Phone: [facility] Vascular SurgeryComment on above:PAD (peripheral artery disease) (Primary Dx); Ischemia of both feetStart: 78-12-8472pqttxbgrskOpkcfiy R WATERS Facility:CD:[id number]: 10-21-2024 End: 71-18-5342Cvwrih outpatient new 45 minutesMohamed Rony Diop MD Work Phone: [facility] Vascular SurgeryComment on above:Ischemia of both feet (CMS-HCC) (Primary Dx); PAD (peripheral artery disease) (CMS-HCC); Arterial embolism (CMS-HCC)Start: 10-18-2024 End: 76-50-1918qutvpxrkebAihrcxo R WATERSFacility:EU BellevueStart: 09-22-2024 End: 00-17-8250Irueaaase encounterSanya Simms MD Work Phone: [facility] Comment on above:Received Outside Medical RecordsStart: 09-21-2024 End: 90-56-6995Symqjarsm encounterChristi Jones APRN.CNP Work Phone: [facility] Comment on above:Refill RequestStart: 09-21-2024 End: 01-05-5529Aomyuyx encounter procedureChristi Jones APRN.CNP Work Phone: [facility] Comment on above:Constipation, unspecified constipation type (Primary Dx); History of colon polypsStart: 09-13-2024 End: 47-21-8044Knrwrmaiv encounterNorthshore [facility]astroenterology Work Phone: [facility] Start: 06-02-2024 End: 23-53-4188vbqxmgxattFtzwlx GhazoulFacility:BMSStart: 05-05-2024 End: 03-07-0461vztnjyzonmEjdibw GhazoulFacility:BMSStart: 05-03-2024 End: 36-78-7976bichhqartwMfqjnci R WATERSFacility:CD:[id number]: 04-21-2024 End: 04-57-7025towalfavjoDayyis CramerFacility:BMSStart: 03-31-2024 End: 83-44-7897kajtkrfzdaWjqhjt CramerFacility:BMSStart: 03-17-2024 End: 71-45-4319fuekstidiwSjwwgu CramerFacility:BMSStart: 03-10-2024 End: 79-14-4587hobdmjmuyqEsdojl CramerFacility:BMSStart: 64-37-1946qhfmpagpyr Jadyn GhazoulFacility:BMSStart: 03-04-2024 End: 79-76-5623wxgpylqbvaZfggbd CramerFacility:[facility] Hospitaltart: 02-18-2024 End: 22-37-2735bdrasrnohdZmwwxg GhazoulFacility:BMSStart: 02-04-2024 End: 99-98-8569urrzcyriodDojiqn GhazoulFacility:BMSStart: 01-20-2024 End: 72-42-9742peqrmctdtwStgqvi GhazoulFacility:BMSStart: 01-16-2024 End: 18-70-6779Oscqkh outpatient visit 25 minutesCarlito Horvath MD Work Phone: [facility] DrComment on above:Malignant neoplasm of central portion of right breast in female, estrogen receptor negative (Multi)(Primary Dx); Iron deficiency; Postmenopausal osteoporosis; Peptic ulcer disease; Dry eyes; Closed sleeve fracture of left patella, sequelaStart: 12-26-2023 End: 54-36-8252Vqmkkjpkc Result EncounterCorey Carmen DO Work Phone: NOL[facility] External Department UnsolicitedStart: 12-26-2023 End: 35-00-7267Ebbzrzisx Result EncounterCorey Carmen DO Work Phone: NOYG External Department UnsolicitedStart: 12-24-2023 End: 91-24-3482Favbmzlyq Result EncounterCorey Carmen DO Work Phone: noms External Department UnsolicitedStart: 12-24-2023 End: 00-74-1501Rmshxdewi Result EncounterCorey Carmen DO Work Phone: noms External Department UnsolicitedStart: 12-21-2023 End: 26-42-8108yyvzhasjqfXF Star Recinos Work Phone: [facility] Work Phone: Start: 12-21-2023 End: 66-75-6288Przgjll encounter procedureMD Star Recinos Work Phone: [facility] Work Phone: Start: 11-04-2023 End: 88-00-6513Rvt Drop offStar RECINOS [facility] Start: 11-04-2023 End: 22-28-6092Bnqbozi encounter procedurePagermain Villavicencio RECINOS [facility] start: 10-06-2023 End: 78-54-6857Hpveybu encounter procedureJuantriclary Villavicencio RECINOS [facility] start: 09-25-2023 End: 08-66-1706oadcflvcgdOsqhaad WatersFacility:[facility] Townshiptart: 09-25-2023 End: 26-68-4582Gtatlbys ReferredMD Star Recinos Work Phone: [facility]-LAB Path Spec [place] HospStart: 08-25-2023 End: 13-69-5500Tmeyibo encounter procedureStar RECINOS [facility] [place] start: 03-28-2023 End: 43-60-5710zopkyzxkntEJalen MEDINAFacility:[facility] Start: 03-28-2023 End: 50-82-9517Zrytmyd encounter procedureLawrence Medina MD Work Phone: plastic SurgeryComment on above:Breast pain (Primary Dx); Acquired breast deformity; Capsular contracture of breast implant, initial encounterStart: 03-25-2023 End: 79-55-4379zfajkwwpftA VICENTE POBLETEFacility:[facility] Start: 80-77-2066Hczhrkw encounter procedureKristyn Dougherty Work Phone: [phone]-Zihzls [facility] Work Phone: Start: 16-74-5811kfjrifurdkKP SANDRA SABOFacility:9330 Start: 26-34-5979jhciaocyotNR CARLITO NORRIS CHANGFacility:[facility] CtrStart: 74-88-5206ubxgoavhdkYG CARLITO NORRIS CHANGFacility:9542Start: 35-89-6682ykxhvdoshkTZ SANDRA SABOFacility:9330Start: 80-76-9309wzsaxyorcdXQCCCJ LADONNAFacility:K5Jwfjz: 73-09-0291ofmxteqtzcKQ SANDRA SABOFacility:9330Start: 39-35-3087Rhjbmmc encounter procedureKristyn S Ladonna Work Phone: [phone]-Evvfje [facility]icsCross[facility] Work Phone: Start: 15-25-2155zklmavsvegVWDO JING CAMPBELL Facility:[id number]: 11-28-2022 End: 35-92-7366iaokxououvYJ ILDEFONSO TORRESFacility:J7Axtmt: 10-18-2022 End: 50-57-2563jdoelnvjwyNOGQSK CRAMERFacility:C9Lfmdk: 08-17-2022 End: 73-40-5101lckaebrqskUB ILDEFONSO V WESTFacility:W3Dimbe: 07-05-2022 End: 74-67-3191kpujntihnbCQNWIL CRAMERFacility:W4Zgjqn: 06-28-2022 End: 57-07-4589dltjkrhesqHOLOMD CRAMERFacility:Y2Suoro: 15-88-3022Qyevu Update Jing Campbell Work Phone: [facility] 2536T Work Phone: Start: 02-18-6850zecmckkqrhMZ JING CAMPBELL Facility:9228Start: 36-31-6275Kgjhgac tobacco non-user cad cap copd pv dm Jing Campbell Work Phone: [facility] 25[address]Q Work Phone: Start: 15-62-1950Vsyaz UpdateJing Campbell Work Phone: [facility] [address]37H Work Phone: Start: 86-04-3207Vsgzfeb encounter procedureJing Campbell Work Phone: [facility] 2535J Work Phone: Start: 63-00-2750znzaphnvfnQXDO JING CAMPBELL Facility:9228Start: 50-77-7682Rtzzcn outpatient visit 15 minutesJing Campbell Work Phone: [facility] Work Phone: Start: 58-12-6091QQHXQUondlgwj R Riley Work Phone: [facility] 2535G Work Phone: Start: 80-53-7714BELYRJsojimke R Riley Work Phone: [facility] 2537P Work Phone: Start: 24-85-8164Ukfxp UpdateJing Campbell Work Phone: [facility] 2532V Work Phone: Start: 15-80-1759Gniuzc outpatient new 45 minutes Jing Campbell Work Phone: mp-[facility] Work Phone: Start: 90-81-5908Zgvpzx outpatient visit 25 minutes Jing Campbell Work Phone: [facility] [address]J Work Phone: Start: 95-17-9839Xcuzgpd tobacco non-user cad cap copd pv dmJing Campbell Work Phone: [facility] 25[address]C Work Phone: Start: 85-32-3417Drislv consultation new/estab patient 60 minJing Campbell Work Phone: [facility] Work Phone: Start: 55-90-1841Rqpelo outpatient visit 25 minutes Jing Campbell Work Phone: [facility] [address]P Work Phone: Start: 24-56-0965JAFSCRxcstsqa R Riley Work Phone: [facility] 25[address]J Work Phone: Start: 91-12-6931TOIDKUlrmpsdq R Riley Work Phone: [facility] 25[address]F Work Phone: Start: 59-79-3260Xazof UpdateJing Campbell Work Phone: [facility] 2533X Work Phone: Start: 97-73-6328Yprrws outpatient visit 25 minutes Jing Campbell Work Phone: [facility] [address]A Work Phone: Start: 43-11-3349Tiqifsg encounter procedureJing Campbell Work Phone: [facility] 2535A Work Phone: Start: 81-28-7311Wzkrxu outpatient visit 25 minutes Jing Campbell Work Phone: [facility] 2535A Work Phone: Start: 24-09-1868Esqsukp encounter procedureMicverena FranklinBdtaeLV-HRJS-Mujm 2535A Work Phone: Start: 64-32-1666Qrgcgpy encounter procedureMicverena CampbellErupmUO-HCVI-Srlg 2535A Work Phone: Start: 76-72-3385Hufdlvm encounter procedureJing CampbellZlsizDY-EFOE-Gwnc 2535A Work Phone: Start: 51-49-4337Bkqmump encounter procedureJing CampbellLphlsBT-NDVH-Aqsh 2535A Work Phone: Start: 05-03-9350Hcwbhli encounter procedureJing CampbellCigkvBK-FZVU-Jfmz 2535A Work Phone: Start: 43-45-3826Ipscccv encounter procedureWIKATIEDeacon KRISHFacility:8Start: 81-16-7806Fguvmqg encounter procedureJING FRANKLINEY Facility:3Start: 89-79-2177CosqftqsxrPjwshyqa RileyFacility:[facility] [place] DateProcedureProcedure DetailPerforming ClinicianStart: 79-37-5022Wbdbecrirh Star RECINOS Start: 44-93-8670Yolsfjoeq digital breast tomosynthesis biCorey Carmen DO Work Phone: Start: 68-13-5004HJ DEXA AXIAL SKELETONCorey Carmen DO Work Phone: Start: 01-91-4130Xbcpdnspv digital breast tomosynthesis biCorey Carmen DO Work Phone: Start: 84-04-6087BzwreborqyxNnhlxvs Chang MD Work Phone: Start: 77-85-3037Qgdjj 1996 panel - Serum or Plasma Carlito Horvath MD Work Phone: Cataract surgeryMichelle RileyComment on above: bilateral 2015;Decompression of median nervePatrick RECINOS Excision of breastPatrick RECINOS Extraction of cataractPatrick RECINOS Extraction of wisdom toothPatrick RECINOS History of total hysterectomy with bilateral salpingo-oophorectomyPatrick RECINOS Ligation of fallopian tubeMichelle R Adrian Work Phone: Ligation of varicose veinMichelle RileyProcedure on backPatrick RECINOS Procedure on neckPatrick RECINOS Tonsillectomy and adenoidectomyMichelle RileyComment on above:uvula also removed;Total hysterectomyMichelle R Adrian Work Phone: Comment on above:1981 - due AUB and enloarged ovarian cyst; Plan of Treatment DateCare ActivityDetailAuthorStart: 35-82-4010Invmzujkl for malignant neoplasm of colonUnFirelands Regional Medical Center [facility]: 88-97-8690Ojuot panelUnFirelands Regional Medical Center South Campus: 01-13-2026 End: 21-48-6442Etxtsv Ag 27-29 [Units/volume] in Serum or PlasmaCancer Antigen 27-29 Lab Routine Malignant neoplasm of central portion of right breast in female, estrogen receptor negative Expected: 01/13/2026 (Approximate), Expires: 07/16/2026[facility] Work Phone: Comment on above:Expected: 01/13/2026 (Approximate), Expires: 07/16/2026Start: 01-13-2026 End: 90-58-4609VZD W Auto Differential panel - BloodCBC and Auto Differential Lab Routine Malignant neoplasm of central portion of right breast in female, estrogen receptor negative Expected: 01/13/2026, Expires: 07/16/2026[facility] Service Area Work Phone: Comment on above:Expected: 01/13/2026, Expires: 07/16/2026Start: 01-13-2026 End: 44-68-3172Ngsmdxxyxttml metabolic 2000 panel - Serum or PlasmaComprehensive metabolic panel Lab Routine Malignant neoplasm of central portion of right breast in female, estrogen receptor negative Expected: 01/13/2026 (Approximate), Expires: 07/16/2026[facility] Work Phone: Comment on above:Expected: 01/13/2026 (Approximate), Expires: 07/16/2026Start: 01-13-2026 End: 57-92-1171Xjhnayzr [Mass/volume] in Serum or PlasmaFerritin Lab Routine Iron deficiency Expected: 01/13/2026 (Approximate), Expires: 07/16/2026 [facility] Work Phone: Comment on above:Expected: 01/13/2026 (Approximate), Expires: 07/16/2026Start: 01-13-2026 End: 04-40-0205Xiqf and Iron binding capacity panel - Serum or PlasmaIron and TIBC Lab Routine Iron deficiency Expected: 01/13/2026, Expires: 07/16/2026 [facility] Work Phone: Comment on above:Expected: 01/13/2026, Expires: 07/16/2026Start: 01-13-2026 End: 83-06-9725Jjndjfe encounter /19/2026 10:00 AM EDT Office Visit [facility] [address] [place] [id number] [place] [address] [place], [place] [phone] (Work) [facility] DrStart: 01-44-8630Nibmumliu for osteoporosisBone Density ScanSt. Mary's Medical CenterStart: 42-87-9160Dxnmnwe ScreeningTobacco ScreeningUC Medical Center SystemStart: 81-50-7659Sjbhu BMI ScreeningAdult BMI ScreeningUC Medical Center SystemStart: 44-82-2364Pvsaxem ScreeningTobacco ScreeningUC Medical Center System Start: 70-43-4716Csdhoqha ScreeningDiabetes ScreeningUniversity Hospitals Parma Medical Centertart: 24-76-7102Fingmilcm vaccinationUC Medical Center SystemStart: 01-14-2025 End: 97-75-1906Ofsxjl Ag 27-29 [Units/volume] in Serum or PlasmaCancer Antigen 27-29 Lab Routine Malignant neoplasm of central portion of right breast in female, estrogen receptor negative (Multi) Expected: 01/14/2025 (Approximate), Expires: 07/17/2025[facility] Work Phone: Comment on above:Expected: 01/14/2025 (Approximate), Expires: 07/17/2025Start: 01-14-2025 End: 67-34-1160LAG W Auto Differential panel - BloodCBC and Auto Differential Lab Routine Malignant neoplasm of central portion of right breast in female, estrogen receptor negative (Multi) Expected: 01/14/2025, Expires: 07/17/2025[facility] Service Area Work Phone: Comment on above:Expected: 01/14/2025, Expires: 07/17/2025Start: 01-14-2025 End: 12-54-6791Avbiagalkxtqw metabolic 2000 panel - Serum or PlasmaComprehensive metabolic panel Lab Routine Malignant neoplasm of central portion of right breast in female, estrogen receptor negative (Multi) Expected: 01/14/2025 (Approximate), Expires: 07/17/2025[facility] Work Phone: Comment on above:Expected: 01/14/2025 (Approximate), Expires: 07/17/2025Start: 01-14-2025 End: 12-28-3106Vrsvicbd [Mass/volume] in Serum or PlasmaFerritin Lab Routine Iron deficiency Expected: 01/14/2025 (Approximate), Expires: 07/17/2025 [facility] Work Phone: Comment on above:Expected: 01/14/2025 (Approximate), Expires: 07/17/2025Start: 01-14-2025 End: 11-00-1498Dnkh and Iron binding capacity panel - Serum or PlasmaIron and TIBC Lab Routine Iron deficiency Expected: 01/14/2025, Expires: 07/17/2025 [facility] Work Phone: Comment on above:Expected: 01/14/2025, Expires: 07/17/2025Start: 01-14-2025 End: 23-64-8489Sfmrkif encounter procedurePrem[facility] DrComment on above:4 month follow up visitStart: 89-91-2561Ibxdwoplg for malignant neoplasm of breastMammogram ScreeningUniversity Hospitals Parma Medical Centertart: 11-23-2024 End: 13-30-2467KG Breast - bilateral ScreeningBilateral screening mammogram Imaging Routine Breast cancer screening by mammogram Expected: 11/23/2024, Expires: 01/23/2026[facility] Work Phone: comment on above:Expected: 11/23/2024, Expires: 01/23/2026Start: 11-23-2024 End: 84-49-7204Gviuylt encounter /29/2025 2:00 PM EDT Office Visit [facility] [address] [place] [address] Danielito Morales, DO [address] [place] [address] ArrivedNOLA BCP OBComment on above:ArrivedStart: [id number] Vaccine (1 - 1-dose 75+ series)RSV Vaccine (1 - 1-dose 75+ series) [facility] 10-21-2024 End: 49-50-6795OSV Abdominal Aorta and Bilateral Runoff Vessels W contrast IVCT angiogram abdominal aorta with runoff Imaging Routine Arterial embolism (CMS- HCC) Expected: 10/21/2024, Expires: 10/21/2025[facility] Work Phone: [phone] on above:Expected: 10/21/2024, Expires: 10/21/2025Start: 03-13-2025Medicare Annual Wellness VisitMedicare Annual Wellness Visit (AWV)[facility]: [facility] End: 50-40-9924Dtphugr encounter /25/2025 10:30 AM EST Office Visit [facility] [address] [place] [id number] Christi Jones APRN.PHARMACY TECHNICIAN ASSISTANT [address] [place] [address] constipation pain lower backNortNew Prague Hospital Gastroenterology and Endoscopy EdinboroComment on above: constipation pain lower backStart: 40-31-1243Stsdcqw Directive DiscussionAdvance Directive DiscussionUniversity Hospitals Parma Medical Centertart: 28-03-9615Jqzipqkciuokul of varicella zoster vaccineZoster (Shingles) Vaccine (3 of 3)Zylie the Bear SystemStart: 98-84-7849Tfybbumc Vaccine (3 of 3)Shingrix Vaccine (3 of 3) [facility]art: 11-58-8012Mtdou-19 Vaccine ( season)Covid-19 Vaccine ( season)[facility] Centertart: 49-15-4862Gpmgvezgw vaccinationInfluenza Vaccine (#1)[facility]ertart: 46-87-3117Yjpkme Vaccines (3 of 3)Zoster Vaccines (3 of 3)[facility] CenterSteast alton: 91-39-8297Fmyybgtaf for malignant neoplasm of colonUniversity Hospitals Parma Medical Centertart: 05-74-2083PKQAC-19 Vaccine ( season)COVID-19 Vaccine ( season)[facility] CenterStart: 26-97-7970Kxfjisbzs vaccination INFLUENZA (#1)[facility]ertart: 55-09-5620Kbahv microalbumin profile DTaP,Tdap,Td Vaccine (2 - Td or Tdap)[facility] Centertart: 92-74-7307QNQ, Provider: Sandra Taylor, Status: Pen, Time: 9:45 AMFUV, Provider: Sandra Taylor, Status: Pen, Time: 9:45 AMMP[facility] Work Phone: Start: 73-72-4627NWF, Provider: Jing Campbell, Status: Pen, Time: 10:40 AMEPV, Provider: Jing Campbell, Status: Pen, Time: 10:40 ZWST-UVJX-Avpj 2535A Work Phone: Start: 26-41-9134BJKBWAB DIRECTIVE DISCUSSIONADVANCE DIRECTIVE DISCUSSIONUniversity Hospitals Parma Medical Centertart: 65-24-0419YASEISVSDZ ASSESSMENT DEPRESSION ASSESSMENTUniversity Hospitals Parma Medical Centertart: 92-70-5876TARWQARFFV, Provider: Jing Campbell, Status: Pen, Time: 10:40 AMMCRINITIAL, Provider: Jing Campbell, Status: Pen, Time: 10:40 IFCO-GVXV-Dptp 2535A Work Phone: Start: 62-65-9835QPF, Provider: Efra Barnett, Status: Pen, Time: 9:15 AMFUV, Provider: Efra Barnett, Status: Pen, Time: 9:15 AMMP-[facility] Work Phone: Start: 54-79-6980LXV, Provider: Efra Barnett, Status: Pen, Time: 9:30 AMNPV, Provider: Efra Barnett, Status: Pen, Time: 9:30 AM ZY-QOBW-Gyud 2535A Work Phone: Start: 29-98-8712BHBVP-19 VACCINE (4 - Moderna series) COVID-19 VACCINE (4 - Moderna series)[facility] Centertart: 90-43-3471Ojiulga encounter procedureMCRANNUAL, Provider: Jing Campbell, Status: Pen, Time: 10:20 SGEB-TWSI-Esbv 2535A Work Phone: Start: 84-51-7979JJB, Provider: Allyn Ba, Status: Pen, Time: 9:30 AMNPV, Provider: Allyn Ba, Status: Pen, Time: 9:30 AM [facility] Work Phone: Start: 57-79-2302UOBZGFRFQR, Provider: Jing Campbell, Status: Pen, Time: 9:20 AMMCRINITIAL, Provider: Jing Campbell, Status: Pen, Time: 9:20 OWUP-DNXI-Ivbx 2535A Work Phone: Start: 85-39-6416JMK, Provider: Juan Rutherford, Status: Pen, Time: 2:30 PMNPV, Provider: Juan Rutherford, Status: Pen, Time: [facility]:30 [facility] Work Phone: Start: 37-51-1169RQL, Provider: Allyn Ba, Status: Pen, Time: 8:00 AMNPV, Provider: Allyn Ba, Status: Pen, Time: 8:00 AM TC-SGKK-Riqr 2535A Work Phone: Start: 20-65-1915EUHO DENSITYBONE DENSITYUniversity Hospitals Parma Medical Centertart: 61-85-8820Bwal Risk ScreeningFall Risk ScreeningUC Medical Center SystemStart: 61-73-6747KEAVCJQAOPVR: 65+ (1 - PCV)PNEUMOCOCCAL: 65+ (1 - PCV) [facility] Centertart: 83-92-1325Ohrxpiysj for osteoporosisBone Density ScreeningUniversity Hospitals Parma Medical Centertart: 60-61-5805Bytixzen Vaccine (2 of 3)Shingrix Vaccine (2 of 3)[facility] Centertart: 45-20-9195GHKNXRVB VACCINE (1 of 2) SHINGRIX VACCINE (1 of 2)[facility] Centertart: 84-27-8918FSRZCOCYJ (FIT-DNA) COLOGUARD (FIT-DNA)[facility] Centertart: 33-87-5398SbyoylmedhhPQOHENNNJBX [facility] Centertart: 36-22-4465FAXPMZOAGS CANCER SCREENINGCOLORECTAL CANCER SCREENINGUniversity Hospitals Parma Medical Centertart: 33-20-6883YM COLONOGRAPHYCT COLONOGRAPHY [facility] Centertart: 52-99-0038XZFDDCVZ SCREENDIABETES SCREENRegional Medical Center Start: 45-09-3958PTRXU OCCULT BLOODFECAL OCCULT BLOODUniversity Hospitals Parma Medical Centertart: 53-23-0781MYZSC SCREENLIPID SCREENUniversity Hospitals Parma Medical Centertart: 31-63-6501Uxnmzzoqi for malignant neoplasm of colonUniversity Hospitals Parma Medical Centertart: 49-60-7702KAGHWSWMVKCCB SIGMOIDOSCOPYUniversity Hospitals Parma Medical Centertart: 98-71-6440WwgkazgaasiIJUBHVYWCPfnuengfp ClinicStart: 74-21-7584KTgD/Tdap/Td Vaccines (1 - Tdap)DTaP/Tdap/Td Vaccines (1 - Tdap)[facility] CenterSteast alton: 93-99-1967SWbV,Tdap and Td Vaccines (1 - Tdap)DTaP,Tdap and Td Vaccines (1 - Tdap)[facility] Start: 85-89-3353Ulafc microalbumin profileDTAP,TDAP,TD (1 - Tdap)[facility] Centertart: 92-31-5871Tramc BMI Follow Up PlanAdult BMI Follow Up PlanECU Health Roanoke-Chowan Hospitaltart: 95-58-3200Qmjdkkm ScreeningAnxiety ScreeningUniversity Hospitals Parma Medical Centertart: 80-88-6517Owlojckhev ScreeningDepression ScreeningRegional Medical Center Start: 39-51-3093SIAQXNGAL C SCREENINGHEPATITIS C SCREENINGRegional Medical Center Start: 57-55-2846Vciiwzbxk C screeningHepatitis C ScreeningSt. Mary's Medical CenterStart: 01-51-0134Idifstuunl ScreeningDepression ScreeningECU Health Roanoke-Chowan Hospitaltart: 04-13-1950Medicare Annual Wellness VisitMedicare Annual Wellness Visit (AWV)[facility] CenterStart: 52-91-4847Hflavogjc for malignant neoplasm of colonSt. Mary's Medical CenterStart: 92-70-6085Sexrdwabq for osteoporosisBone Density ScanSt. Mary's Medical Center End: 97-08-1574Myypgkythr includes GFR, serumCreatinine includes GFR, serum Lab Routine PAD (peripheral artery disease) ([facility]) Ischemia of both feet ([facility]) Arterial embolism ([facility]) 1 Occurrences starting 10/21/2024 until 10/21/2025UC [facility] SystemComment on above:1 Occurrences starting 10/21/2024 until 10/21/2025 Immunizations Immunization DateImmunizationNotesCare TovdllocWjmpjcef17-93-2396ozswoaiiy virus vaccine, unspecified formulationLexx Diop MD Work Phone: [phone] County Medical CenterQqqmas03-40-7750rwhyhd vaccine, unspecified formulationMosusie Diop MD Work Phone: [facility] FoundationItjeiy44-71-4218nflshsvqr virus vaccine, unspecified formulationNortowatonna clinic Gastroenterology Work Phone: [facility] Medical CenterKeunti77-93-1325Wdoeokt High-Dose Quadrivalent 0.7 ML Intramuscular Suspension Prefilled Syringe; Translations: [Fluzone High-Dose Quadrivalent 0.7 ML Intramuscular Suspension Prefilled Syringe]Jing Campbell Work Phone: mp-WSPC-Laila 6901Z Work Phone: Comment on above:Series:16-32-0645Lpcvvqa COVID-19 Vaccine 100 MCG/0.5ML Intramuscular SuspensionMicverena Campbell Work Phone: [facility] Medical CenterComment on above: Series:37-46-8216tuwhqedwm, high dose seasonal, preservative-free; Translations: [Fluzone High-Dose 0.5 ML Intramuscular Suspension Prefilled Syringe]Jing Campbell Work Phone: mp-WSP[facility]-[place]ail[place] 2421R Work Phone: Comment on above:Series:53-11-4443Fbocxov COVID-19 Vaccine 100 MCG/0.5ML Intramuscular SuspensionJing Campbell Work Phone: mp-[facility]-[place] 1892X Work Phone: Comment on above:Series:75-01-5766Nveqmei COVID-19 Vaccine 100 MCG/0.5ML Intramuscular SuspensionJing Campbell Work Phone: [facility]08-24-2020influenza, injectable, quadrivalent, preservative freeYonihelle Saud Campbell Work Phone: mp-[facility]SP[facility]-[place] [address]Y Work Phone: [phone]tk, high dose seasonal, preservative- free; Translations: [Fluzone High-Dose 0.5 ML Intramuscular Suspension Prefilled Syringe]Jing Jean-BaptisteJfnvyOY-WIZT-Gvuv 3991U Work Phone: Comment on above:Series:11-44-3319ceduysoctkcv polysaccharide vaccine, 23 valent; Translations: [Pneumococcal polysaccharide vaccine,23 valent]Jing CampbellUnWooster Community HospitalComment on above:Series:87-54-8874eyciwsxlg, high dose seasonal, preservative-freeAdenle Saud Campbell Work Phone: mp-[facility] 0799U Work Phone: [phone]fonw conjugate vaccine, 13 valent Jing Campbell Work Phone: mp-[facility]-[place] 4315S Work Phone: Comment on above:Series:21-70-6360mhjctvomnrzd polysaccharide vaccine, 23 valentAdenle Saud Adrian Work Phone: UnWooster Community Hospital11-25-2014zoster vaccine, liveMichelle Saud Campbell Work Phone: [facility] Medical CenterCOVID- mRNA booster vaccine, Moderna, (Moderna COVID-19 Vac, Booster,) 50 MCG/0.5ML suspension dark blue cap injectionCorey Carmen DO Work Phone: [facility] Payers DatePayer CategoryPayerPolicy [id number] Indemnity [employer] Member Subscriber Plan / Payer (Effective 2021-Present) Name: Brigitte High Relation to Subscriber: Self Name: Brigitte High Payer ID: Not on file Type: Not on file Address: [place] [id number] Private Health [id number].Unknown2015M[id number]. [id number] [id number] [id number] 2.0.1.655315.3.57[id number] 2.0.1.708908.3.57[id number] 2.0.1.416402.3.57[id number] 2.0.1.666940.3.57[id number] 2.0.1.932628.3.57[id number] 2.0.1.057618.3.579.[id number] 2.0.1.213424.3.57[id number] 2.16.840.1.559598.3.57[id number] 2.16.840.1.279510.3.57[id number] 2.16.840.1.453416.3.57[id number] 2.16.840.1.503661.3.57[id number] 2..840.1.441517.3.57[id number] 2.16840.1.787236.3.57[id number] 2.840.1.380693.3.57[id number] 2.840.1.948657.3.579.2.0[id number] 2.840.1.274265.3.579.2.38345-78-1870Lfjoyvw3936486 2..840.1.298506.3.57[id number] 2.840.1.601051.3.579.2.[id number] 2..840.1.700285.3.57[id number] 2.840.1.210560.3.57[id number] 2.16.840.1.251202.3.579.[id number] 2.16.840.1.62[id number] 2.16.840.1.812029.3.579.2.840Xlmpmgx63625120 2.16.840.1.442767.3.579.2.462 [id number] 2.16.840.1.54517[id number] 2.16.840.1.9[id number] 2.16.840.1.396923.3.579.2.462 [id number] 2.16.840.1.3[id number] 2.16.840.1.315[id number] 2.16840.1.011288.3.579.2.462 [id number] 2.16.840.1.6[id number] 2.16840.1.570978.3.579.2.947Mdixjij83222694 2.16.840.1.530938.3.579.2.462 [id number] 2.16840.1.579841.3.579.2.462 Social History DateTypeDetailFacilityStart: 03-11-2022 End: 84-56-1158Tiadxj smokerFormer mrscvvGK-NJRB-Vuls 2535A Work Phone: Start: 05-30-2014 End: 83-82-1494Vaguzbg smoking status NHISEx-smokerCleSt. John of God HospitalHistory of tobacco useCurrent smokerUniversity Hospitals Parma Medical Centertart: 03-11-2022 End: 25-24-9970Ykbhnxv intakeCurrent drinker of alcohol (finding)[facility] Centertart: 03-11-2022 End: 69-46-2924Ugdujsh use panelGood Samaritan Hospitaltart: 10-23-2023 National Score (1-100), lower number is lower xzbb07BtwqfmzyaUniversity Hospitals Parma Medical Centertart: 22-12-9696Ftyxqda Commentquit 7 years agoUniversity Hospitals Parma Medical Centertart: 05-30-2014 Alcohol CommentsocialUniversity Hospitals Parma Medical Centertart: 62-49-8679Esc Assigned At BirthNot on fileUniversity Hospitals Parma Medical Centertart: 87-32-3078Ome Assigned At BirthFeSelect Medical Specialty Hospital - Akrontart: 56-94-4883Silpjkx smoking status NHISTobacco smoking consumption unknownSt. Mary's Medical CenterStart: 01-06-2024 End: 32-16-6493Cghbabyq to SARS-CoV-2 (event)Not sureSt. Mary's Medical CenterHistory of tobacco useCigarette SmokerUC Medical Center SystemStart: 87-61-0992Oqeznck use and exposureSmokeless tobacco non-userUC Medical Center SystemStart: 80-68-3152Tghjfdw CommentPatient smoked 1PPD 1967-2006ProMadison Health SystemStart: 72-67-1444BeqRdsubz (finding)[facility] ZIMPERIUM SystemSexual OrientationExecutive [facility]rology of [facility] NEGATED: Highlighted row--LI-ITMM-Welq 1463K Work Phone: Medical Equipment Procedure CodeEquipment CodeEquipment Original TextEquipment IdentifierDatesLens Iol +15.50 Acrsf 13mm 6mm - [id number]_sdjRjsjp: 53-81-6509Husi Iol +14 Nidia 0 D Bcnvx 13 - [id number]_azgXarbu: 04-25-2015 Functional Status TteuHyzhujzegxCkiuleRawfzhsl76-53-3489Qvsjalghrd StatusN/AExecutive [facility]rology of [facility]01-29-2024Functional StatusN/AExec[facility]05-15-2015Are you deaf, or do you have serious difficulty hearingNo 12/09/2014 11:05 AM Xiomy Daly LPN NoClima city hospitalulises Gugjww60-69-6614Wbb you blind, or do you have serious difficulty seeing, even when wearing glassesNo 12/09/2014 11:05 AM Xiomy Daly LPN NoCACMC Healthcare SystemZyfflm47-14-9295Dr you have serious difficulty walking or climbing stairsNo 12/09/2014 11:05 AM Xiomy Daly LPN NoCACMC Healthcare SystemWwmxjw68-46-6406Qr you have difficulty dressing or bathingNo 12/09/2014 11:05 AM Xiomy Daly LPN NoCleveland Qxsdpv01-64-8498Xxwqzmf of a physical, mental, or emotional condition, do you have difficulty doing errands alone such as visiting a physician's office or shoppingNo 12/09/2014 11:05 AM Xiomy Daly LPN NoClima city hospitalulises [facility] HospitalNEGATED: Highlighted rowFunctional performanceFunctional status health issues are not documented Disease [facility] 3942L Work Phone: Mental Status AhjkClhgajnamoIpytjrRloijrrs45-48-5288Nnqkhyo of a physical, mental, or emotional condition, do you have serious difficulty concentrating, remembering, or making decisionsNo 12/09/2014 11:05 AM Xiomy Daly LPN [facility] SouthNEGATED: Highlighted rowCognitive function [Interpretation] Cognitive status health issues are not documented QvfffeuLZ-BTRA-Ncag 7106A Work Phone: Clinical Notes 12-28-2020 to 04-04-2025 Note Date & NvhuLdecUyixnkyz95-32-6854 Hospital Discharge instructions Patient Education 04/04/2025 08:26:41 Cystoscopy Cystoscopy Cystoscopy is a procedure that is [...] Cystoscopy may be recommended if you have: Urinary tract infections that keep coming back. Blood in the urine (hematuria). An inability to control when you urinate (urinary incontinence) or an overactive bladder. Unusual cells found in a urine sample. A blockage in the urethra, such as a urinary stone. Painful urination. An abnormality in the bladder found during an intravenous pyelogram (IVP) or CT scan. Cystoscopy may also be done to remove a sample of tissue to be examined under a microscope (biopsy). Tell a health care provider about: Any allergies you have. All medicines you are taking, including vitamins, herbs, eye drops, creams, and rtsc-fwq-waukhro medicines. Any problems you or family members have had with anesthetic medicines. Any blood disorders you have. Any surgeries you have had. Any medical conditions you have. Whether you are or may be . What are the risks? Generally, this is a safe procedure. However, problems may occur, including: Infection. Bleeding. Allergic reactions to medicines. Damage to other structures or organs. What happens before the procedure? Medicines Ask your health care provider about: Changing or stopping your regular medicines. This is especially important if you are taking diabetes medicines or blood thinners. Taking medicines such as aspirin and ibuprofen. These medicines can thin your blood. Do not take these medicines unless your health care provider tells you to take them. Taking bsgc-fwu-xkbqvsh medicines, vitamins, herbs, and supplements. Tests You may have an exam or testing, such as: X-rays of the bladder, urethra, or kidneys. CT scan of the abdomen or pelvis. Urine tests to check for signs of infection. General instructions Follow instructions from your health care provider about eating or drinking restrictions. Ask your health care provider what steps will be taken to help prevent infection. These steps may include: ?Washing skin with a germ-killing soap. ?Taking antibiotic medicine. Plan to have a responsible adult take you home from the hospital or clinic. What happens during the procedure? You will be given one or more of the following: ?A medicine to help you relax (sedative). ?A medicine to numb the area (local anesthetic). The area around the opening of your urethra will be cleaned. The cystoscope will be passed through your urethra into your bladder. Germ-free (sterile) fluid will flow through the cystoscope to fill your bladder. The fluid will stretch your bladder so that your health care provider can clearly examine your bladder fong. Your doctor will look at the urethra and bladder. Your doctor may take a biopsy or remove stones. The cystoscope will be removed, and your bladder will be emptied. The procedure may vary among health care providers and hospitals. What can I expect after the procedure? After the procedure, it is common to have: Some soreness or pain in your abdomen and urethra. Urinary symptoms. These include: ?Mild pain or burning when you urinate. Pain should stop within a few minutes after you urinate. This may last for up to 1 week. ?A small amount of blood in your urine for several days. ?Feeling like you need to urinate but producing only a small amount of urine. Follow these instructions at home: Medicines Take lzlv-pox-lbzfkic and prescription medicines only as told by your health care provider. If you were prescribed an antibiotic medicine, take it as told by your health care provider. Do notstop taking the antibiotic even if you start to feel better. General instructions Return to your normal activities as told by your health care provider. Ask your health care provider what activities are safe for you. If you were given a sedative during the procedure, it can affect you for several hours. Do not drive or operate machinery until your health care provider says that it is safe. Watch for any blood in your urine. If the amount of blood in your urine increases, call your healthcare provider. Follow instructions from your health care provider about eating or drinking restrictions. If a tissue sample was removed for testing (biopsy) during your procedure, it is up to you to get your test results. Ask your health care provider, or the department that is doing the test, when yourresults will be ready. Drink enough fluid to keep your urine pale yellow. Keep all follow-up visits. This is important. Contact a health care provider if: You have pain that gets worse or does not get better with medicine, especially pain when you urinate. You have trouble urinating. You have more blood in your urine. Get help right away if: You have blood clots in your urine. You have abdominal pain. You have a fever or chills. You are unable to urinate. Summary Cystoscopy is a procedure that is used to help diagnose and sometimes treat conditions that affect the lower urinary tract. Cystoscopy is done using a thin, tube-shaped instrument with a light and camera at the end. After the procedure, it is common to have some soreness or pain in your abdomen and urethra. Watch for any blood in your urine. If the amount of blood in your urine increases, call your healthcare provider. If you were prescribed an antibiotic medicine, take it as told by your health care provider. Do notstop taking the antibiotic even if you start to feel better. This information is not intended to replace advice given to you by your health care provider. Make sure you discuss any questions you have with your health care provider. Document Revised: 03/27/2022 Document Reviewed: 02/23/2021 [email or web address] Patient Education 2023 Training Advisor. Follow Up Care 10/18/2024 09:12:58 With:JORJE FIGUEROA, Star Villavicencio, URL Address: [address] [place] [phone] When: Unknown [facility] 09-08-2025 NotePatient Education Urology Cystoscopy Cystoscopy is a procedure [...] including vitamins, herbs, eye drops, creams, and unih-izr-cdvxydy medicines. ??? Any problems you or family [...] tells you to take them. ??? Taking ndmm-vlk-sbzgymi medicines, vitamins, herbs, and supplements. Tests You [...] cystoscope to fill your bladder. The fluid willstretch your bladder so that your health care [...] these instructions at home: Medicines ??? Take bvmq-rmu-ajgjvpe and prescription medicines only as told by your health care provider. ??? If you were prescribed an antibiotic medicine, take it as told by your health care provider. Donot stop taking the antibiotic even if you [...] testing (biopsy) during your (more content not included)...[facility]06-20-2025 History of Present illness Narrative* Carlito Horvath MD - 01/14/2025 10:00 AM EDT Patient ID: Brigitte High is a 74 y.o. female. Referring Physician: [place] [id number] [facility] [facility] [address] [place] [address] Primary Care Provider: NADIRA Davis Visit Type: [...] encounter for closed fracture (Multi) (07/10/2020), Other generalsymptoms and signs (03/20/2021), Personal history of malignant [...] history (04/30/2019); Other surgical history (11/20/2021); and Othersurgical history (11/20/2021). Family History[1] Oncology History No [...] Review Audit Reviewed by Gabby Wallace MA (Employee Welfare Manager) on 01/14/25 at 0958 Medication Order Taking? Sig Documenting Provider Last Dose Status bimatoprost (Latisse) 0.03 % ophthalmic solution [id number] Yes APPLY 1 INCH TO AFFECTED EYE EVERYDAYAT BEDTIME Jing Campbell, Taking Active cholecalciferol (Vitamin D-3) 50 MCG (1999 UT) tablet [id number] Yes Take 1 tablet (50 mcg) by mouth once daily. Historical Provider, Taking Active doxycycline (Vibramycin) 100 mg capsule [id number] Yes Take by mouth. Historical Provider, Taking Active methylPREDNISolone (Medrol Dospak) 4 mg tablets [id number] Yes Take by mouth. Historical Provider, Taking Active sennosides (Senokot) 8.6 mg tablet [id number] Yes 8 tablets (68.8 mg) once daily at bedtime. Historical Provider, Taking Active vit B complex 100 combo no.2 (B-100 Complex) 100 mg tablet extended release [id number] Yes Take by mouth. 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, invasive ductal carcinoma of the left breast in 1998, for which she underwent left radical mastectomy followed by reconstruction -It was ER neg, HI neg, and HSX2dhc neg -She had received post-op chemotherapy but is unable to recall the names of these agents -She did not need radiation therapy -The implant did rupture at one point, and she needed this to be replaced -last mammo was done in 12/24/2023 in [place]--breasts are heterogeneously dense which may obscure small masses; scattered benign appearing calcifications are present; no significant suspicious findings in either breast -here for interval followup -doing well, has no new complaints -mammo done at [facility] on 12/24/2024 reviewed--the breasts are heterogeneously dense, [...] fractured patella -while visiting a friend in [place] in January 2023--she saw her friend returning home, and ran through the house intending to open the front gate--she tripped on a landing and fractured her left kneecap--neither her friend nor her friend's wanted to take her to the ED so when she returned to [place] she went to the ER and had xrays done confirming fractured left patella--she worse a knee stabilizer/brace Problem List Items Addressed This Visit ICD-10-CM Malignant neoplasm of central portion of right breast in female, estrogen receptor negative C50.111, Z17.1 Relevant Orders Clinic Appointment Request Follow Up; CARLITO HORVATH; [facility] CBC and Auto Differential Comprehensive metabolic panel Cancer Antigen 27-29 Iron deficiency - Primary E61.1 Relevant Orders Iron and TIBC Ferritin Carlito Horvath MD [1] No family history on file. documented in this encounterSt. [facility] Work Phone: 1(785) 857-953906-20-2025 Instructions* Patient Instructions* Carlito Horvath MD - 01/14/2025 10:00 AM EDT See you again in 1 year documented in this encounterSt. Mary's [facility] Work Phone: 1(713) 459-184004-29-2025 History of Present illness Narrative* Sangeeta Bennett LPN - 11/23/2024 2:00 PM EDT Reason for Appointment: Patient ID: Brigitte High is a 74 y.o. female who presents for Well Women Visit Patient presents today for Consult appointment. MEDICATIONS Current Outpatient Medications Medication Instructions B Jpmhgzw-Qgzzve-YV (GNP B-100 Complex) tablet controlled-release Oral bimatoprost [...] fracture due to osteoporosis by DEXA scan ([facility]) 01/26/2024 Resolved Ambulatory Problems Diagnosis Date Noted [...] nursing note reviewed. Exam conducted with a christian science practitioner present. Vitals: There is no height or [...] of: Danielito Morales DO documented in this encounterFreeman Heart [id number] Evaluation + Plan note* Assessment & Plan Note - Lexx Diop MD - 11/18/2024 9:10 AM EDT Associated Problem(s): PAD (peripheral artery disease) Continue aspirin and statin. Continue Crestor 5 mg and aspirin 81 mg.Risk factors modification to control blood pressure. Continue walking [facility]04-24-2025 Evaluation + Plan note* Assessment & Plan Note - Lexx Diop MD - 11/18/2024 9:10 AM EDTAssociated Problem(s): Ischemia of both feet Continue aspirin and statin. Continue Crestor 5 mg and aspirin 81 mg.Risk factors modification to control blood pressure. Continue walking [facility]04-24-2025 Miscellaneous Notes* Assessment & Plan Note - Lexx Diop MD - 11/18/2024 9:10 AM EDTAssociated Problem(s): PAD (peripheral artery disease) Continue aspirin and statin. Continue Crestor 5 mg and aspirin 81 mg.Risk factors modification to control blood pressure. Continue walking * Assessment & Plan Note - Lexx Diop MD - 11/18/2024 9:10 AM EDT Associated Problem(s): Ischemia of both feet Continue aspirin and statin. Continue Crestor 5 mg and aspirin 81 mg.Risk factors modification to control blood pressure. Continue walking documented in this encounterCleveland Clinic [facility]04-24-2025 History of Present illness Narrative* Lexx Diop MD - 11/18/2024 8:50 AM EDT Images from the original note were not included. To: KRISTYN DOUGHERTY, MEDICAL RECORDS TECHNICIAN-PHARMACY TECHNICIAN ASSISTANT HPI: Brigitte High is a 74 y.o. female with Bilateral lower extremity atheroembolic disease I obtained ALDO PVR and CTA with runoff. She has atherosclerotic disease but no significant occlusive disease.No clot burden or clear source that needs interventional treatment. Recommended medical therapy by continuing aspirin Plavix and statin. She would like to stop the Plavix because of multiple bruises.I thought that is reasonable. She will however [...] Take 1 tablet (600 mg total) by mouthin the morning and 1 tablet (600 mg total) in the evening. Take with meals. clopidogreL (PLAVIX) 75 mg tablet Take 1 tablet (75 mg total) by mouth in the morning. 60 tablet 3 exvvwu-hakuhzbw-ggcisiyxvk dis (NEURIVA DE-STRESS) 100-200-10 mg capsule Take 1 tablet by mouth in the morning. ibuprofen (MOTRIN) 600 mg tablet Take 1 tablet (600 mg total) by mouth every 8 (eight) hours as needed. hurthasq-zll-lndtx acid-lutein 0.4-250 mg-mcg tablet Take 1 tablet by mouth in the morning. rosuvastatin (CRESTOR) 5 mg tablet Take 1 tablet (5 mg total) by mouth in the morning. 30 tablet 3 TURMERIC ORAL Take 1 tablet by mouth in the morning. No current facility-administered medications on file prior to visit. Past Medical History: Past Medical History: Diagnosis Date Cancer ([facility]) History of arterial disease of lower extremity [...] tobacco: Never Tobacco comments: Patient smoked 1PPD 2056-8910 Substance and Sexual Activity Alcohol use: Not [...] you for your understanding. documented in this encounterC[facility]03-[facility]-2025 Evaluation + Plan note* Assessment & Plan Note - Lexx Diop MD - 10/21/2024 9:49 AM EDT Associated Problem(s): Ischemia of both feet (CMS-HCC) 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 She has strong palpable popliteal pulses. She has strong family history of abdominal arctic aneurysm. The plan is to start aspirin Plavixand Statin. We will alsoget a CTA abdomen pelvis with runoff. [facility]03-27-2025 Miscellaneous Notes* Assessment & Plan Note - Lexx Diop MD - 10/21/2024 9:49 AM EDTAssociated Problem(s): Ischemia of both feet (CMS-HCC) 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 She has strong palpable popliteal pulses. She has strong family history of abdominal arctic aneurysm. The plan is to start aspirin Plavixand Statin. We will alsoget a CTA abdomen pelvis with runoff. documented in this encounterCleveland Clinic [facility]03-27-2025 History of Present illness Narrative* Lexx Diop MD - 10/21/2024 9:10 AM EDT Images from the original note were not included. To: No primary care provider on file. HPI: Brigitte High is a 73 y.o. female with Ex-smoker with atherosclerotic disease strong palpable popliteal pulses and normal ALDO with very severe toe pressures. She has discoloration of her fifth toebilaterally. She has what looks like atheroembolic disease [...] mouth every 8 (eight) hours as needed. sdnrfxpq-waa-nplmc acid-lutein 0.4-250 mg-mcg tablet Take 1 tablet by mouth in the morning. TURMERIC ORAL Take 1 tablet by mouth in the morning. calcium carbonate (OS-JAMESON) 600 mg elemental (1,500 mg) tablet Take 1 tablet (600 mg total) by mouthin the morning and 1 tablet (600 mg total) in the evening. Take with meals. rlcpnj-tnphihpl-tenfyzosjr dis (NEURIVA DE-STRESS) 100-200-10 mg capsule Take 1 tablet by mouth in the morning. No current facility-administered medications on file prior to visit. Past Medical History: Past Medical History: Diagnosis Date Cancer ([facility]) History of arterial disease of [...] tobacco: Never Tobacco comments: Patient smoked 1PPD 2966-4274 Substance and Sexual Activity Alcohol use: Not [...] Plan: Problem List PAD (peripheral artery disease) ([facility]) Ischemia of both feet ([facility]) - Primary Current Assessment & Plan 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 She has strong palpable popliteal pulses. She has strong family history of abdominal arctic aneurysm. The plan is to start aspirin Plavixand Statin. We will alsoget a CTA abdomen pelvis with runoff. Brigitte was seen today for pad (peripheral artery disease) ([facility]) i73.9] please sc. Diagnoses and all orders for this visit: Ischemia of both feet ([facility]) PAD (peripheral artery disease) ([facility]) - [facility] [place], [place] Arterial embolism ([facility]) Lexx Diop MD, LARA, RPVI, FSVS, FACS [...] you for your understanding. documented in this encounterCleveland Clinic [facility]03-24-2025 NotePatient Education Urology Cystoscopy Cystoscopy is a procedure [...] including vitamins, herbs, eye drops, creams, and ymyp-qux-rdmhith medicines. ??? Any problems you or family [...] tells you to take them. ??? Taking elfj-hmk-kdjryzl medicines, vitamins, herbs, and supplements. Tests You [...] cystoscope to fill your bladder. The fluid willstretch your bladder so that your health care [...] these instructions at home: Medicines ??? Take jnbi-rte-ajucmrp and prescription medicines only as told by your health care provider. ??? If you were prescribed an antibiotic medicine, take it as told by your health care provider. Donot stop taking the antibiotic even if you [...] testing (biopsy) during your (more content not included)...[facility]02-26-2025 Telephone encounter Note* Telephone Encounter - Kim Albright MA - 09/22/2024 1:38 PM ESTSummary: All records are in scanned documents for viewing. Images from the original note were not included. [facility]02-26-[facility] Miscellaneous Notes* Telephone Encounter - Kim Albright MA - 09/22/2024 1:38 PM ESTSummary: All records are in scanned documents for viewing. Images from the original note were not included. documented in this encounterRegional Medical Center02-25-2025 Telephone encounter Note * Telephone Encounter - Christi Jones APRN.CNP - 09/21/2024 4:13 PM EST I sent amitiza to [facility]. It's about $40 per month with [employer] if insurance won't cover it. [facility]02-25-2025 Miscellaneous Notes* Telephone Encounter - Christi Jones APRN.CNP - 09/21/2024 4:13 PM EST I sent amitiza to [facility]. It's about $40 per month with [employer] if insurance won't cover it. documented in this encounterRegional Medical Center02-25-2025 Instructions* Patient Instructions* Christi Jones APRN.CNP - 09/21/2024 11:19 AM [...] above, we should pursue testing of your pelvicfloor- please call or [employer] message with an update in 1 month. We will see you in the office in 4 months. documented in this encounterRegional Medical Center02-25-2025 History of Present illness Narrative* Christi Jones APRN.CNP - 09/21/2024 10:39 AM EST Images from the original note were not included. [facility] DATE: 09/21/2024 [...] and underwent resection Spring 2023 (Dr Recinos [place]). Was told it is regrowing already, has [...] back pain, pain with defecation. Prev tried miralax(no response) and linzess (erratic, watery stools and high cost). Suspect she may have motility andpelvic floor component. Colonoscopy 04/2022 with med lipoma in asc colon, tics, 2 polyps removed, melanosis, IH. Repeat 5 yrs. # Constipation - Stop senna. Start trulance daily. Mg citrate if no response in 48 hours. If it's not covered, tryamitiza. - ARM if constipation doesn't approve with meds above - Obtain records from [facility] (surgery 2023 for urethral growth ) RTC 4 months Christi Jones APRN.CNP [facility] [address] [place] [address] [place] [id number] Office: [phone] documented in this encounterRegional Medical Center02-17-2025 Telephone encounter Note * Telephone Encounter - Cristina Kaplan - 09/13/2024 7:37 AM EST Images from the original note were not included. [facility]-17-2025 Miscellaneous Notes* Telephone Encounter - Cristina Kaplan - 09/13/2024 7:37 AM EST Images from the original note were not included. documented in this encounterRegional Medical Center08-08-2024 [facility] Medical Records Department [address] [place] [address] History Physical Exam 03/04/24 0715 MR#: [id number] Acct: [id number] Name: BRIGITTE HIGH Rep #: [id number] : 1950 73 From: Jadyn Chavez MD PCP: Krsityn Dougherty, REINFORCEMENT MAKER-C Status:[facility] Location: [place] [address] History and Physical Date of Admission: 03/04/24 The patient is examined and there are no changes from the H P dated 02/12/2024. The patient presents for right breast lift for symmetry and revision left breast reconstruction. Informed consent is obtained and patient is marked in the preop holding area. Assessment Plan Assessment/Plan (1) Breast asymmetry between [place] breast and reconstructed breast: PLAN: Patient for right breast lift for symmetry (2) Painful periwound skin: PLAN: Patient for revision left breast reconstruction (3) Ptosis of right breast: (4) Status post left breast reconstruction: (5) History of breast cancer in adulthood: 03/04/24 0718 Cosigner Signature (if applicable): CC: DOUG Dougherty; Dr. Jadyn Chavez MD [facility]06-21-2024 History of Present illness Narrative * Carlito Horvath MD - 01/16/2024 10:40 AM EDT Patient ID: Brigitte High is a 73 [...] encounter for closed fracture (Multi) (07/10/2020), Other generalsymptoms and signs (03/20/2021), Personal history of malignant [...] history (04/30/2019); Other surgical history (11/20/2021); and Othersurgical history (11/20/2021). No family history on file. [...] followed by reconstruction -It was ER neg, HI neg, and EIE6lpt neg -She had received post-op chemotherapy but is unable to recall the names of these agents -She did not need radiation therapy -The implant did rupture at one point, and she needed this to be replaced - here for interval followup-moved to [place] -last mammo was done in 12/24/2023 in [place]--breasts are heterogeneously dense which may obscure small [...] for next year -she went on a [employer] bus tour of [place]--she said she had to share a room [...] fractured patella -while visiting a friend in [place] in January 2023--she saw her friend returning home, and ran through the house intending to open the front gate--she tripped on a landing and fractured her left kneecap--neither her friend nor her friend's wanted to take her to the ED so when she returned to [place] she went to the ER and had xrays done confirming fractured left patella--she worse a knee stabilizer/brace Problem List Items Addressed This Visit None Visit Diagnoses Codes Malignant neoplasm of central portion of right breast in female, estrogen receptor negative (Multi)- Primary C50.111, Z17.1 Relevant Orders Clinic Appointment Request Follow Up; CARLITO HORVATH; [facility] CBC and Auto Differential Comprehensive metabolic panel Cancer Antigen 27-29 Iron deficiency E61.1 Relevant Orders Iron and TIBC Ferritin Carlito Horvath MD documented in this encounterSt. Mary's Medical Center Work Phone: 1(940) 149-593606-21-2024 Instructions* Patient Instructions* Carlito Horvath MD - 01/16/2024 10:40 AM EDT See you again in 1 year documented in this encounterSt. Mary's Medical Center Work Phone: 1(122) 963-420804-09-2024 Evaluation + Plan note Diagnostic Tests Pending * Urine Culture 11/04/23 [facility]03-11-2024 Hospital Discharge instructions Patient Education 10/06/2023 17:14:42 [...] muscles. These are the same muscles you squeezewhen you try to stop the flow of [...] tight lift in your rectal area. If youare a female, you should also feel a [...] provider. Document Revised: 11/22/2021 Document Reviewed: 11/22/2021 [email or web address] Patient Education 2022 Training Advisor. Follow Up Care 09/09/2023 14:36:29 With:JORJE FIGUEROA, Star Villavicencio, URL Address: [facility] [address] , [place] [address] [phone] When: Unknown Comments:toro call pt to review updated path [facility] 01-29-2024 Hospital Discharge instructions Patient Education 08/25/2023 13:11:13 Urinary Tract Infection, Adult, Pvdc-vm-Euua Urinary Tract Infection, Adult A urinary tract infection (UTI) is an infection of any part of the urinary tract. The urinary tractincludes: The kidneys. The ureters. The bladder. The [...] Follow these instructions at home: Medicines Take yqto-lgu-jxjfxzq and prescription medicines only as told by [...] a female. Use each tissue one time whenyou wipe. Drink enough fluid to keep your [...] provider. Document Revised: 02/23/2021 Document Reviewed: 02/23/2021 [email or web address] Patient Education 2022 Training Advisor. Follow Up Care 05/27/2023 09:36:14 With:JORJE FIGUEROA, Star Villavicencio, URL Address: [facility] [address] , [place] [address] [phone] When: Unknown Comments:sched cysto/UD [facility] 09-01-2023 NoteHNO ID: [id number] Author: Lawrence Medina MD Service: ? Author [...] to move forward with replacement surgery. Lawrence Medina, [facility]09-01-2023 History of Present illness Narrative* Lawrence Medina MD - 03/28/2023 10:39 AM EDT Family History: Significant Family Hx :NA Social [...] until a few a years ago when shenoted tightening on the left reconstructed brats. The [...] surgery. Lawrence Medina MD documented in this encounterRegional Medical Center08-29-2023 NoteHNO ID: [id number] Author: Gray Mcdonald RT(R) Service: Radiology Author [...] BY: RT Jennifer(R) March 25, 2023 1:36 [facility]05-04-2023 NotePROCEDURE: XR KNEE LT 3V COMPARISON: None. HISTORY: Pain of left [...] the articular surface Electronically authenticated by: ILDEFONSO TORRES Date: 2022-11-28 18:01[facility]05-11-2022 History of Present illness Narrative* The patient is being seen for worsening symptoms of back pain. Symptoms: back stiffness * The patient presents with complaints of back pain (Reports worsening back pain when attempting to move bowels). * The patient presents with complaints of lower extremity numbness (Reports noted left big toe numbness last night) The patient is currently experiencing symptoms. Pain scores include a current pain level of 4/10. (Reports worsening bilat hip pain, knee pain) (Uses CBD gummies and Ibuprofen) * The patient is being seen for worsening symptoms of constipation. Symptoms: infrequent stools, straining at stools and incomplete evacuation * The patient presents with complaints of small volume stools (Reports small, loose bm's). The patient is currently experiencing symptoms. Associated symptoms: bloating. (Saw GI, prescribed Linzess. Ineffective and could not tolerate) * BRIGITTE HIGH presents with complaints of nonmenstrual bleeding (Reports occasional dark blood noted on underpants. Reports foul odor. Used OTC vaginal anti-fungal suppository. Noted blood on insert. Reports h/o hysterectomy 1980) * BRIGITTE HIGH presents with complaints of cough (Reports symptoms started yesterday. Reports wasin [place] about a month ago, had similar sx's. Took Zyrtec and Coricidin w/good effect. Had Covid test x1 month ago, negative) * Associated symptoms include runny nose, stuffy nose, sore throat and headache, but no wheezing, no fever and no chest pain. * The patient presents with complaints of dyspnea (Reports SOB on exertion) [facility] Work Phone: 1(986) 556-504304-04-2022 History of Present illness Narrative* The patient is being seen for worsening symptoms of back pain. Symptoms: back stiffness * The patient presents with complaints of back pain (Reports worsening back pain when attempting to move bowels). * The patient presents with complaints of lower extremity numbness (Reports noted left big toe numbness last night) The patient is currently experiencing symptoms. Pain scores include a current pain level of 4/10. (Reports worsening bilat hip pain, knee pain) (Uses CBD gummies and Ibuprofen) * The patient is being seen for worsening symptoms of constipation. Symptoms: infrequent stools, straining at stools and incomplete evacuation * The patient presents with complaints of small volume stools (Reports small, loose bm's). The patient is currently experiencing symptoms. Associated symptoms: bloating. (Saw GI, prescribed Linzess. Ineffective and could not tolerate) * BRIGITTE HIGH presents with complaints of nonmenstrual bleeding (Reports occasional dark blood noted on underpants. Reports foul odor. Used OTC vaginal anti-fungal suppository. Noted blood on insert. Reports h/o hysterectomy 1980) * BRIGITTE HIGH presents with complaints of cough (Reports symptoms started yesterday. Reports wasin [place] about a month ago, had similar sx's. Took Zyrtec and Coricidin w/good effect. Had Covid test x1 month ago, negative) * Associated symptoms include runny nose, stuffy nose, sore throat and headache, but no wheezing, no fever and no chest pain. * The patient presents with complaints of dyspnea (Reports SOB on exertion) [id number] Work Phone: 1(720) 652-979809-24-2021 History of Present illness Narrative* Ms. High is a 70-year-old female who is referred by Dr. [place] for chronic constipation. * She has history of chronic constipation. She has been using laxatives for over 20 years. Currently,she is taking 8 tabs of Sennakot every 2 to 3 days. She has tried fiber in the past (not effective)and Miralax (not effective though did not use consistently). Without using laxatives, she will go 3to 4 days without a bowel movement and then develop abdominal bloating and discomfort. She denies splinting or using manual maneuvers to help herself defecate. * She had a colonoscopy in March [address] Simms at [facility] that demonstratedmelanosis coli, two 2-3 mm TAs in the transverse colon s/p resection and nonbleeding internal hemorrhoids. I do not have the pathology results. She was advised to have her next colonoscopy in 5 years. * Recent blood work reviewed and normal. She follows with Dr. Horvath in Oncology due to her history ofbreast cancer. She had a surveillance CT Chest/Abdomen/Pelvis last year that was normal. * Past medical history: Chronic constipation, OA, anxiety, sleep apnea, breast cancer. * Surgical history: Hemorrhoidal banding, cervical spine surgery, tonsillectomy and adenoidectomy, hysterectomy, mastectomy with reconstruction, spinal fusion, orthopedic surgeries NOS. * Family history: Sister had colon cancer; she believes she was diagnosed in her 60's. * Social history: Former smoker. Drinks 1 glass of wine daily. No illicits. [facility] [place] Work Phone: 1([phone]) 405-394409-04-2021 History of Present illness Narrative* The patient is being seen for an initial evaluation of chest pain. Symptoms: no cough, no fever andno palpitations * The patient presents with complaints of intermittent episodes of bilateral anterior chest pain, described as pressure-like Episodes started March 31, 2021 (Pt reports falling x2 weeks ago. Was holding vasquez, hand in fist, fell forward onto chest. Reports chest pain started this past Sat). * The patient presents with complaints of shortness of breath (C/o SOB on exertion or in supine position) * The patient presents with complaints of orthopnea (C/o SOB in supine position) The patient is currently experiencing symptoms. Associated symptoms: fatigue, but no dizziness, no lightheadedness and no leg swelling * The patient presents with complaints of < 10 pound weight gain. * BRIGITTE HIGH presents with complaints of dysuria starting 1 week ago (Pt reports lack or urination. Took Diurex x2. Pt not sure if effective) * Associated symptoms include no urgency, no frequency, no suprapubic pain, no flank pain, no fever and no chills. * The patient is being seen for worsening symptoms of constipation. Symptoms: straining at stools, hard stools and abdominal cramping * The patient presents with complaints of infrequent stools starting 1 month ago Symptoms are worsening (Pt reports worsening constipation. Taking x8 tabs of OTC Senokot QHS). The patient is currently experiencing symptoms. No associated symptoms are reported. [id number] Work Phone: 1([phone]) 505-579807-29-2021 History of Present illness Narrative* BRIGITTE HIGH presents with complaints of joint pain, described as aching On a scale of 1 to 10,the patient rates the pain as 7 (Reports h/o generalized joint pain. Worsening x2 weeks) * Associated symptoms include joint stiffness, morning stiffness and fatigue, but no fever and no chills. * joint swelling [id number] Work Phone: 1([phone]) 496-915707-27-2021 History of Present illness Narrative* BRIGITTE HIGH presents with complaints of joint pain, described as aching On a scale of 1 to 10,the patient rates the pain as 7 (Reports h/o generalized joint pain. Worsening x2 weeks) * Associated symptoms include joint stiffness, morning stiffness and fatigue, but no fever and no chills. * joint swelling [id number] Work Phone: 1(343) 531-435107-24-2021 History of Present illness Narrative* The patient is being seen for worsening symptoms of back pain. Symptoms: back stiffness, decreased lateral bending and lower extremity weakness * The patient presents with complaints of intermittent episodes [...] pain. Reports worsening lower back pain w/bowel movements.). * The patient presents with complaints of lower extremity numbness (L>R) * The patient presents with complaints of lower extremity tingling (L>R) The patient is currently experiencing symptoms. Associated symptoms: neck pain, but no headache, no dizziness, no urinary incontinence and no fecal incontinence * The patient presents with complaints of difficulty sleeping (Sleeping on on couch d/t treatment forRadon in house). (C/o trigger finger to left middle finger and occasional right middle finger) Current treatment includes nonsteroidal anti-inflammatory drugs and Ibuprofen 600 mg BID/TID Hot shower in AM. * low back pain into butt * having bad constipation [facility] Work Phone: 1(454) 173-237206-06-2021 History of Present illness Narrative* The patient is being seen for worsening symptoms of back pain. Symptoms: back stiffness, decreased lateral bending and lower extremity weakness * The patient presents with complaints of intermittent episodes [...] pain. Reports worsening lower back pain w/bowel movements.). * The patient presents with complaints of lower extremity numbness (L>R) * The patient presents with complaints of lower extremity tingling (L>R) The patient is currently experiencing symptoms. Associated symptoms: neck pain, but no headache, no dizziness, no urinary incontinence and no fecal incontinence * The patient presents with complaints of difficulty sleeping (Sleeping on on couch d/t treatment forRadon in house). (C/o trigger finger to left middle finger and occasional right middle finger) Current treatment includes nonsteroidal anti-inflammatory drugs and Ibuprofen 600 mg BID/TID Hot shower in AM. * low back pain into butt * having bad [facility] Work Phone: [phone]) 364-791706-03-2021 History of Present illness Narrative* The patient is being seen for worsening symptoms of back pain. Symptoms: back stiffness, decreased lateral bending and lower extremity weakness * The patient presents with complaints of intermittent episodes [...] pain. Reports worsening lower back pain w/bowel movements.). * The patient presents with complaints of lower extremity numbness (L>R) * The patient presents with complaints of lower extremity tingling (L>R) The patient is currently experiencing symptoms. Associated symptoms: neck pain, but no headache, no dizziness, no urinary incontinence and no fecal incontinence * The patient presents with complaints of difficulty sleeping (Sleeping on on couch d/t treatment forRadon in house). (C/o trigger finger to left middle finger and occasional right middle finger) Current treatment includes nonsteroidal anti-inflammatory drugs and Ibuprofen 600 mg BID/TID Hot shower in AM. * low back pain into butt * having bad constipation [id number] Work Phone: Evaluation + Plan note No data available for this section [facility] evaluation note* Diagnosis Breast pain- Primary Mastodynia Acquired breast deformity Other specified disorders of breast Capsular contracture of breast implant, [facility] encounter [facility] Diagnosis Onset Date Resolution Status Bronchitis acute [facility] Work Phone: Evaluation note* Diagnosis Malignant [...] left patella, sequela documented in this encounter [facility] Work Phone: Evaluation note* Diagnosis Constipation, unspecified constipation type- Primary History of colon polyps Personal history of colonic polyps [facility] Diagnosis Ischemia of both feet- Primary PAD (peripheral artery disease) Unspecified peripheral vascular disease Arterial embolism (CMS-HCC) Embolism and thrombosis of unspecified artery [facility] Diagnosis Ischemia of both feet- Primary PAD (peripheral artery disease) Unspecified peripheral vascular disease Arterial embolism (CMS-HCC) Embolism and thrombosis of unspecified artery PAD (peripheral artery disease)- Primary Unspecified peripheral vascular disease Ischemia of both feet [facility]* Diagnosis Breast cancer screening by mammogram Wellness examination [facility] Malignant neoplasm of central portion of right breast in female, estrogen receptor negative- Primary Iron deficiency Disorders of iron metabolism Dry eyes Unspecified tear film insufficiency Postmenopausal osteoporosis Peptic ulcer disease Peptic ulcer, unspecified site, unspecified as acute or chronic, without mention of hemorrhage, perforation, or obstruction Closed sleeve fracture of left patella, sequela documented in this encounter [facility] Work Phone: History of Present [...] has living will. Patient has healthcare POA. [id number] Work Phone: History of Present illness NarrativePatient [...] stopping the medication. 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 [facility]: [facility] of Present illness Narrative* Hand Swelling * C/o swelling to 1st finger and middle finger x1 week. * C/o joint aching. * Hands felt tight while wearing gloves. * Took OTC Diurex and Aspercreme, voiced mild improvement. [id number] Work Phone: History of Present illness Narrative* [...] has living will. Patient has healthcare POA. [id number] Work Phone: History of Present illness Narrative* [...] needed * All questions answered * . [facility] Work Phone: Hospital Discharge instructions No data available for this section [facility] InstructionsNot on filedocumented in this encounter [facility]Not on filedocumented in this encounter [facility]ructionsNot on filedocumented in this encounter [facility] No data available for this section [facility] Summary Purpose Family History Mother Name Dates Details Family history of (7 99.9, R99) Status:ActiveFamily history of hyperlipidemia(V18.19, Z83.438) Status:ActiveFamily history of History of quadruple bypass(V15.1, Z95.1) Status:ActiveFamily history of Overweight(278.02, E66.3) Status:Active Father Name Dates Details Family history of (7 99.9, R99) Status:ActiveFamily history of hypertension(V17.49, Z82.49) Status:Active Unknown Family Member Name Dates Details : Mother, Father Status:ActiveFamily history of hyperlipidemia: Mother(V18.19, Z83.438) Status:ActiveHistory of quadruple bypass: Mother(V15.1, Z95.1) Status:ActiveOverweight: Mother Status:ActiveFamily history of hypertension: Father(V17.49, Z82.49) Status:Active Unknown Family Member Name Dates Details : Mother, Father Status:ActiveFamily history of hyperlipidemia: Mother(V18.19, Z83.438) Status:ActiveHistory of quadruple bypass: Mother(V15.1, Z95.1) Status:ActiveOverweight: Mother Status:ActiveFamily history of hypertension: Father(V17.49, Z82.49) Status:Active Unknown Family Member Name Dates Details : Mother, Father Status:ActiveFamily history of hyperlipidemia: Mother(V18.19, Z83.438) Status:ActiveHistory of quadruple bypass: Mother(V15.1, Z95.1) Status:ActiveOverweight: Mother Status:ActiveFamily history of hypertension: Father(V17.49, Z82.49) Status:Active Unknown Family Member Name Dates Details : Mother, Father Status:ActiveFamily history of hyperlipidemia: Mother(V18.19, Z83.438) Status:ActiveHistory of quadruple bypass: Mother(V15.1, Z95.1) Status:ActiveOverweight: Mother Status:ActiveFamily history of hypertension: Father(V17.49, Z82.49) Status:Active Unknown Family Member Name Dates Details : Mother, Father Status:ActiveFamily history of hyperlipidemia: Mother(V18.19, Z83.438) Status:ActiveHistory of quadruple bypass: Mother(V15.1, Z95.1) Status:ActiveOverweight: Mother Status:ActiveFamily history of hypertension: Father(V17.49, Z82.49) Status:Active Unknown Family Member Name Dates Details : Mother, Father Status:ActiveFamily history of hyperlipidemia: Mother(V18.19, Z83.438) Status:ActiveHistory of quadruple bypass: Mother(V15.1, Z95.1) Status:ActiveOverweight: Mother Status:ActiveFamily history of hypertension: Father(V17.49, Z82.49) Status:Active Unknown Family Member Name Dates Details : Mother, Father Status:ActiveFamily history of hyperlipidemia: Mother(V18.19, Z83.438) Status:ActiveHistory of quadruple bypass: Mother(V15.1, Z95.1) Status:ActiveOverweight: Mother Status:ActiveFamily history of hypertension: Father(V17.49, Z82.49) Status:Active Unknown Family Member Name Dates Details : Mother, Father Status:ActiveFamily history of hyperlipidemia: Mother(V18.19, Z83.438) Status:ActiveHistory of quadruple bypass: Mother(V15.1, Z95.1) Status:ActiveOverweight: Mother Status:ActiveFamily history of hypertension: Father(V17.49, Z82.49) Status:Active Unknown Family Member Name Dates Details : Mother, Father Status:ActiveFamily history of hyperlipidemia: Mother(V18.19, Z83.438) Status:ActiveHistory of quadruple bypass: Mother(V15.1, Z95.1) Status:ActiveOverweight: Mother Status:ActiveFamily history of hypertension: Father(V17.49, Z82.49) Status:Active Unknown Family Member Name Dates Details : Mother, Father Status:ActiveFamily history of hyperlipidemia: Mother(V18.19, Z83.438) Status:ActiveHistory of quadruple bypass: Mother(V15.1, Z95.1) Status:ActiveOverweight: Mother Status:ActiveFamily history of hypertension: Father(V17.49, Z82.49) Status:Active Unknown Family Member Name Dates Details : Mother, Father Status:ActiveFamily history of hyperlipidemia: Mother(V18.19, Z83.438) Status:ActiveHistory of quadruple bypass: Mother(V15.1, Z95.1) Status:ActiveOverweight: Mother Status:ActiveFamily history of hypertension: Father(V17.49, Z82.49) Status:Active Unknown Family Member Name Dates Details : Mother, Father Status:ActiveFamily history of hyperlipidemia: Mother(V18.19, Z83.438) Status:ActiveHistory of quadruple bypass: Mother(V15.1, Z95.1) Status:ActiveOverweight: Mother Status:ActiveFamily history of hypertension: Father(V17.49, Z82.49) Status:Active Unknown Family Member Name Dates Details : Mother, Father Status:ActiveFamily history of hyperlipidemia: Mother(V18.19, Z83.438) Status:ActiveHistory of quadruple bypass: Mother(V15.1, Z95.1) Status:ActiveOverweight: Mother Status:ActiveFamily history of hypertension: Father(V17.49, Z82.49) Status:Active Unknown Family Member Name Dates Details Family history of hypertensi on: Father(V17.49, Z82.49) Status:ActiveOverweight: Mother Status:ActiveHistory of quadruple bypass: Mother(V15.1, Z95.1) Status:ActiveFamily history of hyperlipidemia: Mother(V18.19, Z83.438) Status:ActiveDeceased: Mother, Father Status:Active Unknown Family Member Name Dates Details Family history of hypertensi on: Father(V17.49, Z82.49) Status:ActiveOverweight: Mother Status:ActiveHistory of quadruple bypass: Mother(V15.1, Z95.1) Status:ActiveFamily history of hyperlipidemia: Mother(V18.19, Z83.438) Status:ActiveDeceased: Mother, Father Status:Active Unknown Family Member Name Dates Details : Mother, Father Status:ActiveFamily history of hyperlipidemia: Mother(V18.19, Z83.438) Status:ActiveHistory of quadruple bypass: Mother(V15.1, Z95.1) Status:ActiveOverweight: Mother Status:ActiveFamily history of hypertension: Father(V17.49, Z82.49) Status:Active Unknown Family Member Name Dates Details : Mother, Father Status:ActiveFamily history of hyperlipidemia: Mother(V18.19, Z83.438) Status:ActiveHistory of quadruple bypass: Mother(V15.1, Z95.1) Status:ActiveOverweight: Mother Status:ActiveFamily history of hypertension: Father(V17.49, Z82.49) Status:Active Unknown Family Member Name Dates Details : Mother, Father Status:ActiveFamily history of hyperlipidemia: Mother(V18.19, Z83.438) Status:ActiveHistory of quadruple bypass: Mother(V15.1, Z95.1) Status:ActiveOverweight: Mother Status:ActiveFamily history of hypertension: Father(V17.49, Z82.49) Status:Active Unknown Family Member Name Dates Details : Mother, Father Status:ActiveFamily history of hyperlipidemia: Mother(V18.19, Z83.438) Status:ActiveHistory of quadruple bypass: Mother(V15.1, Z95.1) Status:ActiveOverweight: Mother Status:ActiveFamily history of hypertension: Father(V17.49, Z82.49) Status:Active Unknown Family Member Name Dates Details : Mother, Father Status:ActiveFamily history of hyperlipidemia: Mother(V18.19, Z83.438) Status:ActiveHistory of quadruple bypass: Mother(V15.1, Z95.1) Status:ActiveOverweight: Mother Status:ActiveFamily history of hypertension: Father(V17.49, Z82.49) Status:Active Unknown Family Member Name Dates Details : Mother, Father Status:ActiveFamily history of hyperlipidemia: Mother(V18.19, Z83.438) Status:ActiveHistory of quadruple bypass: Mother(V15.1, Z95.1) Status:ActiveOverweight: Mother Status:ActiveFamily history of hypertension: Father(V17.49, Z82.49) Status:Active Unknown Family Member Name Dates Details : Mother, Father Status:ActiveFamily history of hyperlipidemia: Mother(V18.19, Z83.438) Status:ActiveHistory of quadruple bypass: Mother(V15.1, Z95.1) Status:ActiveOverweight: Mother Status:ActiveFamily history of hypertension: Father(V17.49, Z82.49) Status:Active Unknown Family Member Name Dates Details : Mother, Father Status:ActiveFamily history of hyperlipidemia: Mother(V18.19, Z83.438) Status:ActiveHistory of quadruple bypass: Mother(V15.1, Z95.1) Status:ActiveOverweight: Mother Status:ActiveFamily history of hypertension: Father(V17.49, Z82.49) Status:Active Unknown Family Member Name Dates Details : Mother, Father Status:ActiveFamily history of hyperlipidemia: Mother(V18.19, Z83.438) Status:ActiveHistory of quadruple bypass: Mother(V15.1, Z95.1) Status:ActiveOverweight: Mother Status:ActiveFamily history of hypertension: Father(V17.49, Z82.49) Status:Active Unknown Family Member Name Dates Details : Mother, Father Status:ActiveFamily history of hyperlipidemia: Mother(V18.19, Z83.438) Status:ActiveHistory of quadruple bypass: Mother(V15.1, Z95.1) Status:ActiveOverweight: Mother Status:ActiveFamily history of hypertension: Father(V17.49, Z82.49) Status:Active Unknown Family Member Name Dates Details : Mother, Father Status:ActiveFamily history of hyperlipidemia: Mother(V18.19, Z83.438) Status:ActiveHistory of quadruple bypass: Mother(V15.1, Z95.1) Status:ActiveOverweight: Mother Status:ActiveFamily history of hypertension: Father(V17.49, Z82.49) Status:Active Advance Directives Advance Directive Response Recorded Date/ Time Advance Directives No December 20 4 9:44am TypeDate RecordedPatient RepresentativeExplanationLiving Will10/14/2014 Chief Complaint * every joint is hurting [...] rescheduled gastro appt * had colonoscopy in 2017 [facility] * weight gain * eating healthy [...] in 80 - due to AUB * 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 * sick since yesterday [...] and content) DATE CREATED AUTHOR 01/31/2018 [facility] DATE CREATED AUTHOR AUTHOR'S ORGANIZ ATION 09/16/2018 [facility] DATE CREATED AUTHOR AUTHOR'S ORGANIZ ATION 11/26/2021 [facility] DATE CREATED AUTHOR AUTHOR'S ORGANIZ ATION 12/05/2022 [facility] DATE CREATED AUTHOR AUTHOR'S ORGANIZ ATION 01/21/2023 [facility] DATE CREATED AUTHOR AUTHOR'S ORGANIZ ATION 02/12/2023 [facility] DATE CREATED AUTHOR AUTHOR'S ORGANIZ ATION 02/12/2023 [facility] DATE CREATED AUTHOR AUTHOR'S ORGANIZ ATION 10/17/2023 [facility] DATE CREATED AUTHOR AUTHOR'S ORGANIZ ATION 10/21/2023 [facility] DATE CREATED AUTHOR AUTHOR'S ORGANIZ ATION 06/04/2024 [facility] DATE CREATED AUTHOR AUTHOR'S ORGANIZ ATION 11/24/2024 [facility] DATE CREATED AUTHOR AUTHOR'S ORGANIZ ATION 01/19/2025 [facility] DATE CREATED AUTHOR AUTHOR'S ORGANIZ ATION 01/28/2025 [facility] DATE CREATED AUTHOR AUTHOR'S ORGANIZ ATION 04/05/2025 [facility] Source Comments (unrecognize d section and content) In the event this informatio n is protected by the Federal Confidentiality of Alcohol and Drug Abuse Patient Records regulations: The Federal rules restrict any use of the information to criminally investigate or prosecute any alcohol or drug abuse patient.[facility] the event this information is protected by the Federal Confidentiality of Alcohol and Drug Abuse Patient Records regulations: The Federal rules restrict any use of the information to criminally investigate or prosecute any alcohol or drug abuse patient.[facility] CenterIn the event this information is protected by the Federal Confidentiality of Alcohol and Drug Abuse Patient Records regulations: The Federal rules restrict any use of the information to criminally investigate or prosecute any alcohol or drug abuse patient.[facility] CenterIn the event this information is protected by the Federal Confidentiality of Alcohol and Drug Abuse Patient Records regulations: The Federal rules restrict any use of the information to criminally investigate or prosecute any alcohol or drug abuse patient.[facility] CenterIn the event this information is protected by the Federal Confidentiality of Alcohol and Drug Abuse Patient Records regulations: The Federal rules restrict any use of the information to criminally investigate or prosecute any alcohol or drug abuse patient.[facility] Reason for Visit (unrecogniz ed section and content) ReasonCommentsNew Patient EvaluationPatient states has possible implant leak. ReasonCommentsFollow-upReasonCommentsConsultConstipationConstipation, pain lower backReasonOnset DateCommentsRefill Ndiiqtz3909/21/2024ReasonCommentsPAD (peripheral artery disease) ([facility]) I73.9] Please scSpecialtyDiagnoses / ProceduresReferred By ContactReferred To ContactVascular Surgery Diagnoses PAD (peripheral artery disease) Kristyn Dougherty APRN-CNP [address] [place] [address] Phone: tel: fax: [facility] [address] [place] [address] Phone: tel:[phone] fax: Referral IDStatusReasonStart DateExpiration DateVisits RequestedVisits [id number] Review Specialty Services Required [id number] up to go over Ct abdomen and pelvis runoffFollow up to go over Ct abdomen and pelvis runoffReasonCommentsWell Women VisitReasonCommentsReceived Outside Medical RecordsReasonCommentsMed Refill Care Teams (unrecognized sec tion and content) Team MemberRelationshipSpecialtyStart DateEnd Date Jing Campbell DO [address] [place] [id number] PCP - General03/28/15 Team Status: Active Member Role Status Dates Kristyn Dougherty NP-C Primary Care Provider Active Team Status: Inactive Member Role Status Dates Star Recinos MD Attending Provider Active St art: September 25, 2023 End: September 25, 2023 Team Status: Inactive Member Role Status Dates Suha Goel APRN Attending Provider Active S tart: December 21, 2023 End: December 20karoline Dougherty NP-CPrimary Care ProviderActiveStart: December 21, 2023 End: December 21, 2023Team MemberRelationshipSpecialtyStart DateEnd Date Kristyn Dougherty APRN-CATHY [address] [id number] PCP - General12/10/22 Carlito Horvath MD [address] [place] [address] [address] [place] [address] Consulting PhysicianHematology and Oncology09/16/23Team MemberRelationship SpecialtyStart DateEnd Date Kristyn Dougherty CNP [address] [place] [address] PCP - GeneralInternal Medicine09/13/24Te MemberRelationshipSpecialtyStart Date End Date Kristyn Dougherty CNP [address] [place] [address] PCP - GeneralInternal Medicine09/13/24Te MemberRelationshipSpecialtyStart Date End Date Kristyn Dougherty CNP [address] [place] [address] PCP - GeneralInternal Medicine09/13/24Team MemberRelationshipSpecialtyStart Date End Date Kristyn Dougherty APRN-CNP [address] [place] [address] PCP - GeneralFamily Medicine10/25/24Team MemberRelationshipSpecialtyStart DateEnd Date Kristyn Dougherty APRN-CNP [address] [place] [address] PCP - General12/10/22 Carlito Horvath MD [address] [place] [address] [address] [place] [address] Consulting PhysicianHematology and Oncology09/16/23 Goals (unrecognized section and content) Goals may [...] BE BASED ON THE PRIMARY CLINICAL RECORDS. [facility]. provides no warranty or guarantee of the accuracy or completeness of information in this document.
== END 2025-06-30 10:22 | disposition home or self-care (01) ==
LOC: RAD 10:23
PROVIDERS: PCP Nurse Practitioner Family; Visit Provider Nurse Practitioner Family
DX: M54.9 Dorsalgia, unspecified (principal); M85.88 Other specified disorders of bone density and structure, other site; M41.86 Other forms of scoliosis, lumbar region; M51.369 Other intervertebral disc degeneration, lumbar region without mention of lumbar back pain or lower extremity pain
CPT/HCPCS: 72070; 72100

== ENCOUNTER 2025-07-12 07:54 | Outpatient (OUT) | payer MEDICARE, OTHER, SELFPAY ==
--- OUTSIDE RECORDS SUMMARY | 2023-11-12 10:23 | XMS_ITS | Continuity of Care Document ---
Author Organization [facility] Address [address] [place] [address] [place] [address] Phone Care Team Providers Care Clinical Dietitian Name Role Phone Denise FIGUEROA MD, Dileep Unavailable Unavailabl e Allergies, Adverse Reactions, Alerts Substance Reaction Status Criticality acetaminophen Tinnitus Active No Information Medications Medication Instructions Dosage Dose Quantity Effective Dates (start - stop) Status Indication Fill Status Comments multivitamin with iron tablet - Active Calcium 600 + D(3) 600 mg-10 mcg (400 unit) tablet - Active Problems Condition Type Effective Dates (start - stop) Diagnosed Date Clinical Status Comments Cystocele Problem (finding) Active (qualifier value) Increased frequency of urination Problem (finding) Active (qualifier value) Urethral caruncle Problem (finding) Active (qualifier value) Urgent desire to urinate Problem (finding) Active (qualifier value) Advance Directives Directive Yes / No Effective Date File Name No Information Encounters Encounter Description Practice Location Reason(s) For Visit Diagnoses Date Provider Encounter Disposition [facility], [address] [place] [address], [id number] , [place] tel: [phone] [facility] No Information 4 Denise Falk. [address] [address], [place], [place], [id number] , [place]. tel:[phone] [facility], [address] [place] [address] B, [place], [place], [id number] , [place] tel: [phone] [facility] Silas Urinary Problems (chief complaint) Urethral caruncleUrinary frequencyUrinary urgencyUrge incontinenceNoctu riaFemale bladder prolapse 3 Denise Falk. [address] [facility] [address], [place], [place], [id number] , [place]. tel:+ [phone] Family History Family Member Type Diagnosis Age At Onset Mother Problem clots Father Problem Cardiovascular disease Father Problem clots Mother Problem Cardiovascular disease Mother Problem Coronary artery disease Payers Payer name Insurance type Identifiers Authorization(s) Comments Medicare MB criber ID: [id number] p Name: Coverage Status Eligibility Check on: UnknownRelationship to Subscriber: selfPayer Address: [address] , [place], [place], [id number] Phone: [phone] [facility] [place] Medicare Supplemental CI scriber ID: [id number] up Name: Coverage Status Eligibility Check on: UnknownRelationship to Subscriber: selfPayer Address: [address], [place], [place], [id number] Phone: [phone] Social History Type Description Quantity Date Captured Comments Alcohol Use Details Unknown Caffeine Use Details Unknown Tobacco Use Status No Information Smoking Status No Information Sex Female Current Gender Female (finding) Chief Complaint And Reason For Visit No Information History Of Present Illness Encounter Date Complaint History Of Prese nt Illness Comments: Jamey ceballos is a pleasant 72 year old female that presents to the clinic for evaluation of caruncle, urgency, and frequency. Hx hysterectomy. Today, the patient reports she has been experiencing urgency and frequency significantly for the past 2-3 months. She has had multiple UTI's over the past few months. The patient wears a pad due to incontinence. She notes having an allergic reaction to a certain pad she had been using. Typically she will wake up every hour to urinate despite not drinking before bed. At it's worst, she will urinate every 15 minutes with dribbling. When she is at work she will avoid using the restroom due to it not being clean. She will sometimes have urinary hesitancy. Denies seeing gross hematuria. When she wipes she has noticed blood on her toilet paper. Patient has some dribbling with laughing, sneezing, coughing, etc. She wears the liners for urgency. The patient was told she had a caruncle and she feels it is getting worse due to feeling discomfort in the urethra. She notes she cannot be on hormones due to it causing her to have rage issues . Patient notes having constipation. Urinary Problems Functional Status Date Description Comments No Information Instructions Date Instruction Additional Infor mation No Information Assessments Type Assessment Date No Information
--- OUTSIDE RECORDS SUMMARY | 2025-06-30 04:45 | XMS_ITS ---
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 Name Role Phone Kristyn Zamora Primary Care Provider Allergies Allergen (clinical drug ingredient) Drug/Non Drug Allergy documented on EMR Reaction Allergy Type Onset Date Status [place] Mold (uncoded)UnknownAllergyActiveacetaminophenTylenolRinging earsDrug AllergyActiveCat danderCat DanderUnknownAllergyActiveCannabis sativa whole extractMarijuana (Cannabis Sativa)SwellingDrug AllergyActiveSpider BitesEdema/ SwellingAllergyActive Results Component Value Reference Range Notes COVID-19, Flu A+B IH Reviewed date:06/30/2025 09:44:11 AM Interpretation: Performing Lab: Notes/Report: COVID - FLU A-FLU B-Control+XR lumbar spine 2-3V Reviewed date:07/01/2025 01:16:27 PM Interpretation: Performing Lab: Notes/Report: Source Facility: [place] [address] [place] [address] XRay Report Signed Patient: BRIGITTE HIGH MR#: [id number] : 1950 Acct:[id number] Age/Sex: 74 / F ADM Date: 06/30/25 Loc: RAD Attending Dr: KRISTYN ZAMORA Ordering Physician: KRISTYN ZAMORA Date of Service: 06/30/25 Procedure(s): XR lumbar spine 2-3V Accession Number(s): [id number] cc: KRISTYN ZAMORA [place] [address] Patient Name: BRIGITTE HIGH MRN: [facility]:[id number] date: 1950 Sex: F Assigned Patient Location: [facility] Current Patient Location: [facility] Accession/Order Number: [id number] Exam Date: 06/30/2025 10:55 Report Date: 06/30/2025 11:40 At the request of: KRISTYN ZAMORA Procedure: XR thoracic spine 2V CLINICAL DATA: Chronic mid back pain. THORACIC SPINE -2 views: COMPARISON: None AP and lateral views were obtained. There is osteopenia. There is slight dextroscoliotic curvature. There is no evidence of compression fracture or displacement. The pedicles, as visualized are intact. There is mild endplate spurring. Prior cervical fusion is noted. There are no paraspinal soft tissue abnormalities. XR/XR lumbar spine 2-3V IMPRESSION: OSTEOPENIA, SCOLIOSIS AND DEGENERATIVE CHANGES LUMBAR SPINE - 2 views COMPARISON: CT 08/26/2023 AP and lateral views were obtained. There is osteopenia. There is S-shaped thoracolumbar scoliotic curvature. No acute compression fractures are identified. There is still slight anterolisthesis of L4 on L5 and L5 on S1. There is disc space narrowing at L2-3 and L3-4, greater toward the right. There is mild endplate spurring and lower lumbar facet hypertrophy. The SI joints are intact. There is atherosclerotic plaque at the aorta and iliac arteries. IMPRESSION: OSTEOPENIA, SCOLIOSIS AND DEGENERATIVE CHANGES SIMILAR TO THE PRIOR. Impression dictated by: Sangeeta Mckeon M.D. 06/30/2025 11:40 AM Dictation Location: [place] [address] Electronically authenticated by: [id number] Y Date: 06/30/2025 11:40 Dictated By: Sangeeta Mckeon M.D. 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 Therapy Teacher:XR thoracic spine 2V Reviewed date:07/01/2025 01:16:27 PM Interpretation: Performing Lab: Notes/Report: Source Facility: [facility]-[address], [place] [address] [address] XRay Report Signed Patient: BRIGITTE HIGH MR#: [id number] : 1950 Acct:[id number] Age/Sex: 74 / F ADM Date: 06/30/25 Loc: [facility] Attending Dr: KRISTYN ZAMORA Ordering Physician: KRISTYN ZAMORA Date of Service: 06/30/25 Procedure(s): XR thoracic spine 2V Accession Number(s): [id number] cc: KRISTYN ZAMORA [address] [address] Patient Name: BRIGITTE HIGH MRN: [id number] date: 1950 Sex: F Assigned Patient Location: [facility] Current Patient Location: [facility] Accession/Order Number: [id number] Exam Date: 06/30/2025 10:55 Report Date: 06/30/2025 11:40 At the request of: KRISTYN ZAMORA Procedure: XR thoracic spine 2V CLINICAL DATA: Chronic mid back pain. THORACIC SPINE -2 views: COMPARISON: None AP and lateral views were obtained. There is osteopenia. There is slight dextroscoliotic curvature. There is no evidence of compression fracture or displacement. The pedicles, as visualized are intact. There is mild endplate spurring. Prior cervical fusion is noted. There are no paraspinal soft tissue abnormalities. XR/XR thoracic spine 2V IMPRESSION: OSTEOPENIA, SCOLIOSIS AND DEGENERATIVE CHANGES LUMBAR SPINE - 2 views COMPARISON: CT 08/26/2023 AP and lateral views were obtained. There is osteopenia. There is S-shaped thoracolumbar scoliotic curvature. No acute compression fractures are identified. There is still slight anterolisthesis of L4 on L5 and L5 on S1. There is disc space narrowing at L2-3 and L3-4, greater toward the right. There is mild endplate spurring and lower lumbar facet hypertrophy. The SI joints are intact. There is atherosclerotic plaque at the aorta and iliac arteries. IMPRESSION: OSTEOPENIA, SCOLIOSIS AND DEGENERATIVE CHANGES SIMILAR TO THE PRIOR. Impression dictated by: Sangeeta Mckeon M.D. 06/30/2025 11:40 AM Dictation Location: [place] [address] Electronically authenticated by: [id number] Y Date: 06/30/2025 11:40 Dictated By: Sangeeta Mckeon M.D. 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 Therapy Teacher: REASON FOR VISIT patient is co sinus pressure, green yellow drainage , fatigue, GARRISON, lasting over a week, patient wasstarted on adipex in apr, she missed her nov appointment Medications Medication SIG (Take, Route, Frequency, Duration) Notes Start Date End Date Status Nirmatrelvir&Ritonavir 300/1 00 20 x 150 MG & 10 x 100MG 3 tablets Orally Twice a day; Duration: 5 days 5ActiveOndansetron HCl 4 MG1 tablet Orally BID prn; Duration: 7 days 5ActiveRosuvastatin Calcium 20 MG1 tablet Orally Once a dayActive TurmericActiveDoxepin HCl 3 MG1 tablet at bedtime Orally Once a day; Duration: 30 days03/07/2025Not-TakingIbuprofen 600 MGTAKE 1 TABLET BY MOUTH EVERY 6 TO 8 HOURS NEEDED; Duration: 25ActiveMulti Vitamin -1 tablet Orally Once a dayWith IronActiveNeuriva -as directed OrallyActiveAmoxicillin-Pot Clavulanate 875-125 MG1 tablet Orally every 12 hrs; Duration: 10 days5ActiveHair Skin & NailsActiveAdipex-P 37.5 MG1 tablet before breakfast Orally Once a day; Duration: 30 days5ActiveBimatoprost 0.03 %INSTILL 1 DROP INTO BOTH EYES IN THE EVENING ONCE A DAY; Duration: 30Active Social History Tobacco Use: Social History Observation Description Date Details (start date - stop date) Former Smoker NA - NA Tobacco Use/Smoking Question Answer Notes Patient is a former smoker How long has it been since you last smoked?> 10 yearsAUDIT-C (Standard) Question Answer Notes Did you have a drink containing alcohol in the p ast year? No Knanbz4SteuhcoewzfgvxQihclwsu Problems Problem Type SNOMED Code ICD Code Onset Dates Problem Status W/U Status Risk Notes Problem Sinusitis (90518427) Sinusitis (J32.9) Activeconfirmed Vital Signs Weight 165 lbs 06/30/2025 Height 65 in 06/30/2025 Blood pressure systolic 120 mm Hg 06/30/20 25 Blood pressure diastolic 78 mm Hg 025 Temperature 96.2 degrees Fahrenheit 06/30/20 25 BMI 27.45 kg/m2 06/30/2025 Encounters Encounter Location Date Provider Diagnosis [facility] [address] [place] [address] 06/30/2025 Kristyn Zamora Sinus pressure J34.89 ; Sinusitis J32.9 and Back pain M54.9 Assessments Encounter Date Diagnosis (ICD Code) Assessment Notes Treatment Notes Treatment Clinical Notes Section Notes 06/30/2025 Sinus pressure (ICD-10 - J34.89) 06/30/2025Sinusitis (ICD-10 - J32.9)06/30/2025ack pain (ICD-10 - M54.9) Plan Of Treatment Medication Medication Name Sig Start Date Stop Date Notes Amoxicillin-Pot Clavulanate 875-125 MG 1 tablet Orally every 12 hrs; Duration: 10 days 06/30/2025 Next Appt Details Follow Up: prn, Reason: Progress Notes * Jody HIGHLenOB: [birth year] (74 yo F)Acc No.[id number]:06/30/2025 Progress Note Patient: Brigitte CALLAHAN :?Kristyn Zamora ([facility]), CNPDOB:1950 ???Age:74 Y???Sex:FemaleDate:06/30/2025Phone:[phone]:[address], [place]-[address]Check In:09:33 AM ESTCheck Out:10:15 AM EST Subjective: * Chief Complaints: * 1 . patient is co sinus pressure, green yellow drainage , fatigue, GARRISON, lasting over a week. 2. Patient was started on adipex in apr, she missed her nov appointment. * HPI: ???General:?fur lined thermals sinus sx for week, colored nasal drainage pain and pressure headaches seeing chiro for back mid back had lumbar sx in past heat helps xrays , note for work. * ROS: ???General/Constitutional:?Fever?denies.?Headache?admits.?Weight loss?denies.?Ophthalmologic:?Discharge?denies.?Eye Pain?denies.?Itching and redness?denies.?ENT:?Nasal discharge?admits.?Nasal congestion?admits with colored drainage, GARRISON.?Sore throat?denies.?Cardiovascular:?Chest tightness/ heavy pressure?denies.?Rapid heart rate?denies.?Swelling of extremities?denies.?Chest pain?denies.?Respiratory:?Productive cough?denies.?Chest pain?denies.?Cough?denies.?Shortness of breath?denies.?Wheezing?denies.?Gastrointestinal:?Abdominal pain?denies.?Constipation?denies.?Decreased appetite?denies.?Diarrhea?denies.?Nausea?denies.?Vomiting denies.?Genitourinary:?Urinary incontinence?denies.?Painful urination?denies.?Musculoskeletal:?Back pain?admits where thoracic lumbar meets.?Neck pain?denies.?Muscle aches?denies.?Skin:?Rash?denies.?Skin lesion(s)?denies.? * Active Problem List Z85.3 History of breast ca ncer Modified On:11/27/2022U Status:dlvyzacanK36.9Back pain Modified On:11/27/2022 Status:yhqghouafU25.5Colonic polyp Modified On:11/27/2022 Status:xnrdcfhdaO61.81Rib pain on left side Modified On:11/27/2022 Status:mzlejqbwjP15.1Left thyroid nodule Modified On:11/27/2022 Status:cbvenyussT34.0Cystic acne Modified On:11/27/2022 Status:pgsornqkrE67.9Cervical dysfunction Modified On:11/27/2022 Status:oxuvwvjvrQ09.891Ex-smoker for more than 1 year Modified On:11/27/2022 Status:xtyirrywwB94.039Paronychia of great toe Modified On:11/27/2022 Status:ydwfiaszlM81.3Chronic cough Modified On:07/17/2023 Status:axeamobkhQ14.3Overweight Modified On:09/11/2023 Status:nryyyjxpvP68.0Dysuria Modified On:07/17/2023 Status:kcwjedkxtQ35.83Fatigue Modified On:11/27/2022 Status:oslklklkrH48.9Gastro-esophageal reflux disease without esophagitis Modified On:10/15/2022 Status:dymjaowuuS87.90Unspecified osteoarthritis, unspecified site Modified On:10/15/2022 Status:lzssabrzoQ83.90Arthritis Modified On:10/15/2022 Status:elgysgfrdF40.9Unspecified abnormal finding in specimens from other organs, systems and tissues Modified On:09/16/2023 Status:szswfvyflV89.0Osteoporosis Modified On:12/29/2023 Status:lweeirmloH50Auzgu toe Modified On:09/08/2024 Status:ygjjunfdoH40.9Peripheral artery disease Modified On:09/27/2024 Status:lifiezvipR00.8Ischemia of both lower extremities Modified On:11/19/2024 Status:fmokmgoftY47.00Insomnia Modified On:03/03/2025 Status:fkcuscvplR59.9Sinusitis Modified On:06/30/2025 Status:confirmed * Medical History: L eft thyroid nodule, Cervical dysfunction, Chronic cough, Overweight, Paronychia of great toe, Fatigue, Rib pain on left side, Back pain, Colonic polyp, Dysuria, Ex-smoker for more than 1 year, History of breast cancer, Cystic acne. * Surgical History: B ack Surgery , Neck Surgery , Left Side Masectomy with Reconstruction , Bilateral Carpal Tunnel Surgery , Smoot Teeth Extraction , Cataract Extraction- Bilateral , breast reduction 03/20. * Family History: F ather: , Cerebral vascular accident. M other: , Heart Disease, hypertension, diagnosed with Hypertension, Heart Disease. S ister(s): alive, colon cancer, dementia. 2 sister(s) . 1 son(s) , 1 daughter(s) - healthy. . * Social History: ???Tobacco Use:?Tobacco Use/Smoking?Patient is a?former smoker ?How long has it been since you last smoked? > 10 years ???Drug/Alcohol:?AUDIT-C (Standard)?Did you have a drink containing alcohol in the past year??No ?Points?0 ?Interpretation?Negative * Medications: T aking Adipex-P 37.5 MG Tablet 1 tablet before breakfast Orally Once a day , Taking Bimatoprost 0.03 % Solution INSTILL 1 DROP INTO BOTH EYES IN THE EVENING ONCE A DAY , Taking Hair Skin & Nails , Taking Ibuprofen 600 MG Tablet TAKE 1 TABLET BY MOUTH EVERY 6 TO 8 HOURS NEEDED , Taking Multi Vitamin - Tablet 1 tablet Orally Once a day , Notes to Pharmacist: With Iron, Taking Neuriva(Misc Natural Products) - Capsule as directed Orally , Taking Nirmatrelvir&Ritonavir 300/100 20 x 150 MG & 10 x 100MG Tablet Therapy Pack 3 tablets Orally Twice a day , Taking Ondansetron HCl 4 MG Tablet 1 tablet Orally BID prn , Taking Rosuvastatin Calcium 20 MG Tablet 1 tablet Orally Once a day , Taking Turmeric , Not-Taking/PRN Doxepin HCl 3 MG Tablet 1 tablet at bedtime Orally Once a day , Medication List reviewed and reconciled with the patient * Allergies: T ylenol: Ringing ears - Side Effects - Criticality High, Cat Dander: Allergy, [place] Mold: Allergy, Spider Bites: Edema/ Swelling, Marijuana (Cannabis Sativa): Swelling. Objective: * Vitals: W t:165lbs, Ht: 65 in, BP:120/78mm Hg, Temp:96.2F, BMI:27.45Index, Ht-cm: 165.1 cm, Wt-k.84 kg. * Examination: ???General Examinations: ?GENERAL APPEARANCE:?alert and oriented,?in no acute distress.?EYES:?conjunctiva normal, sclera non-icteric.?NOSE:?normal external appearance, mild congestion.?LUNGS:?clear to auscultation bilaterally.?CARDIO:?regular rate and rhythm, S1, S2 normal.?ABDOMEN:?soft, nontender.?MUSCULOSKELETAL:?decreased ROM due to back pain.?SKIN:?warm and dry.? Assessment: * Assessment: 1.?Sinusitis - J32.9 (Primary)???2.?Sinus pressure - J34.89?? 3.?Back pain - M54.9??? Plan: * Treatment: Start Amoxicillin-Pot Clavulanate Tablet, 875-125 MG, 1 tablet, Orally, every 12 hrs, 10 days, 20 Tablet, Refills 0.??2.?Sinus pressure?LAB: COVID-19, Flu A+B IH (Collection Date & Time - 06/30/2025)3.?Back pain ?Imaging: XR lumbar spine 2-3V (Performed Date - 06/30/2025) ?Imaging: XR thoracic spine 2V (Performed Date - 06/30/2025) * Labs: * L ab: COVID-19, Flu A+B IH (Collection Date & Time - 06/30/2025) ?ValueReference Range?COVID- * F MAGDY A - * F MAGDY B - * C ontrol + * Procedure Codes: 8 7636 SARSCOV2 & INF A&B AMP PRB, Modifiers: QW * Preventive Medicine: ??Screenings/Counseling:?BMI ACTION PLAN?Above Normal BMI Follow-up?Dietary management education, guidance, and counseling ?FALL RISK SCREENING?Fall Risk Assessment:?No falls in the past year * Follow Up: p rn * * Electronically signed by Kristyn Zamora NP, INTEGRATED CAMPAIGN MANAGER.WEB PAGE [id number] on 07/01/2025 at 12:50 PM ESTSign off status: CompletedVisit Status:?CHK (Check Out) true * Provider: Johnathan Zamora (TTC), WEB PAGE DEVELOPER Date: 1 08/31/2024 Generated for Printing/[id number]/eTransmitting on:?07/12/2025 07:56 AM EST History and Physical Notes * HPI (History of Present Illness) CategorySub-CategoryDetailNotesCategory NotesGeneral fur lined thermals sinus sx for week, colored nasal drainage pain and pressure headaches seeing chiro for back mid back had lumbar sx in past heat helps xrays , note for work Examination CategorySub-CategoryDetailNotesCategory NotesGeneral ExaminationsGENERAL APPEARANCE:alert and oriented, in no acute distressEYES:conjunctiva normal, sclera non-ictericEARS:NOSE:normal external appearance, mild congestionTHROAT: CARDIO:regular rate and rhythm, S1, S2 normalLUNGS:clear to auscultation bilaterallyABDOMEN:soft, nontenderSKIN:warm and dryBACK:MUSCULOSKELETAL: decreased ROM due to back painLYMPH NODES:
--- OUTSIDE RECORDS SUMMARY | 2025-07-01 08:16 | XMS_ITS ---
Author Organization [facility] in [place] Address [address] [place] [address] Care Team Providers Care Construction Specialist Name Role Phone Kristyn Zamora Primary Care Provider REASON FOR VISIT xr results Encounters Encounter Location Date Provider Diagnosis [facility] [address] [place] [address] 07/01/2025 Kristyn Zamora Back pain M54.9 Assessments Encounter Date Diagnosis (ICD Code) Assessment Notes Treatment Notes Treatment Clinical Notes Section Notes 07/01/2025 Back pain (ICD-10 - M54.9) Plan Of Treatment Pending Test Test Name Order Date MRI Lumbar Spine w/o contrast 07/01/2025 MRI Thoracic Spine w/o contrast 07/01/20 25 Progress Notes * Wanda HIGHOB: [birth year] (74 yo F)Acc No.[id number]:07/01/2025 Patient:?Brigitte HIGH :1950???Age:74 Y???Sex:FemalePhone:[phone] Address:[address] [place] [id number] Subjective: * Chief Complaints: * X r results * Medical History: * Surgical History: * Hospitalization/Major Diagno stic Procedure: * Medications: Objective: * Vitals: * Physical Examination: ??? Assessment: * Assessment: 1.?Back pain - M54.9??? Plan: * Treatment: ?Imaging: MRI Lumbar Spine w/o contrast ?Imaging: MRI Thoracic Spine w/o contrast * Procedure Codes: * true * Date:?Generated for Printing/Faxing/eTransmitting on:?07/12/2025 07:57 AM EST
--- NOTE | 2025-07-12 07:56 | MR_ITS ---
[address] [address] Patient Name: SALOMÓN ROMERO MRN: [id number] date: 1950 Sex: F Assigned Patient Location: MRI Current Patient Location: MRI Accession/Order Number: [id number] Exam Date: 07/12/2025 08:35 Report Date: 07/12/2025 18:17 At the request of: BART DOUGHERTY Procedure: MR lumbar spine wo con MR lumbar spine wo con 07/12/2025 9:39 AM SIGNS AND SYMPTOMS: Low back pain with left lower extremity radiculopathy and weakness PROTOCOL: Multiplanar multisequence MR images of the lumbar spine without IV contrast COMPARISON: None. FINDINGS: There is a levoconvex curvature of the lumbar spine. There is 5 mm of anterolisthesis of L4 upon L5 with 6 mm of anterolisthesis of L5 upon S1. The bones are in anatomic alignment otherwise. There is preservation of vertebral body heights. There is moderate disc height loss at L2-L3 and L3-L4 with mild disc height loss throughout otherwise. The marrow signal is within normal limits. The conus terminates at the superior endplate of the L2 vertebral body level. No epidural or paraspinous fluid collection is appreciated. At T12-L1: There is a normal disc, central canal, and neural foramen. At L1-L2: There is a broad-based disc bulge with facet hypertrophy and ligamentum flavum thickening. There is mild spinal canal stenosis with mild left and moderate right neural foraminal stenosis. At L2-L3: There is a circumferential disc bulge. There is facet hypertrophy with ligamentum flavum thickening. There is mild spinal canal stenosis with mild left and moderate to severe right neural foraminal narrowing. At L3-L4: There is a circumferential disc bulge with facet hypertrophy and ligamentum flavum thickening. There is moderate right and mild left neural foraminal narrowing with moderate spinal canal narrowing. At L4-L5: There is 5 mm of anterolisthesis of L4 upon L5 secondary to facet hypertrophy. There is a circumferential disc bulge. There is ligament flavum thickening. There is mild to moderate bilateral neural foraminal narrowing. There is moderate to severe spinal canal stenosis. At L5-S1: There is 6 mm of anterolisthesis of L5 upon S1. There is a circumferential disc bulge with facet hypertrophy and ligamentum flavum thickening. There is mild to moderate spinal canal narrowing with mild bilateral neural foraminal narrowing. MR/MR lumbar spine wo con IMPRESSION: At L2-L3: There is a circumferential disc bulge. There is facet hypertrophy with ligamentum flavum thickening. There is mild spinal canal stenosis with mild left and moderate to severe right neural foraminal narrowing. At L3-L4: There is a circumferential disc bulge with facet hypertrophy and ligamentum flavum thickening. There is moderate right and mild left neural foraminal narrowing with moderate spinal canal narrowing. At L4-L5: There is 5 mm of anterolisthesis of L4 upon L5 secondary to facet hypertrophy. There is a circumferential disc bulge. There is ligament flavum thickening. There is mild to moderate bilateral neural foraminal narrowing. There is moderate to severe spinal canal stenosis. Lesser degrees of degenerative changes are noted as above. Impression dictated by: Raul Suarez M.D. 07/12/2025 6:17 PM Dictation Location: [place] [address] Electronically authenticated by: [id number] Y Date: 07/12/2025 18:17
--- NOTE | 2025-07-12 07:56 | MR_ITS ---
[address] [address] Patient Name: SALOMÓN ROMERO MRN: [id number] date: 1950 Sex: F Assigned Patient Location: MRI Current Patient Location: MRI Accession/Order Number: [id number] Exam Date: 07/12/2025 08:35 Report Date: 07/12/2025 18:11 At the request of: BART DOUGHERTY Procedure: MR thoracic spine wo con MR thoracic spine wo con 07/12/2025 9:39 AM SIGNS AND SYMPTOMS: Chronic thoracic and low back pain with radiculopathy, left leg weakness PROTOCOL: Multiplanar multisequence MR images of the thoracic spine without IV contrast COMPARISON: 06/30/2025 FINDINGS: The bones of the thoracic spine are in anatomic alignment. There is preservation of vertebral body heights there is moderate to severe disc height loss at T1-T2, T2-T3, T3-T4, T4-T5, T5-T6, T7-T8, T8-T9, and T9-T10. There is mild disc height loss throughout otherwise. Modic type I endplate edema is noted at T7-T8, T8-T9, T9-T10, and T10-T11. No epidural or paraspinous fluid collection is appreciated. The visualized paraspinous soft tissues are within normal limits. At T1-T2: There is a circumferential disc bulge with facet hypertrophy. There is moderate to severe bilateral neural foraminal narrowing. There is mild spinal canal narrowing. At T2-T3: There is a circumferential disc bulge with facet hypertrophy. There is moderate bilateral neural foraminal narrowing with mild spinal canal narrowing. At T3-T4: There is a broad-based disc bulge with facet hypertrophy. There is moderate right and mild left neural foraminal narrowing. There is mild spinal canal stenosis. At T4-T5: There is a broad-based disc bulge with facet hypertrophy. There is mild spinal canal narrowing and mild bilateral neural foraminal narrowing. At T5-T6: There is a broad-based disc bulge with facet hypertrophy. There is moderate left and mild right neural foraminal narrowing with mild spinal canal narrowing. At T6-T7: There is a broad-based disc bulge with facet hypertrophy. There is minimal spinal canal narrowing with mild bilateral neural foraminal narrowing. At T7-T8: There is a broad-based disc bulge with facet hypertrophy. There is minimal spinal canal narrowing with mild left neural foraminal narrowing. At T8-T9: There is a broad-based disc bulge with facet hypertrophy. There is mild bilateral neural foraminal narrowing with mild spinal canal narrowing. At T9-T10: There is a broad-based disc bulge with facet hypertrophy. There is moderate bilateral neural foraminal narrowing with mild spinal canal narrowing. At T10-T11: There is a broad-based disc bulge with facet hypertrophy contributing to mild spinal canal narrowing. There is moderate to severe bilateral neural foraminal narrowing. At T11-T12: There is a broad-based disc bulge with facet hypertrophy. There is moderate to severe bilateral neural foraminal narrowing with mild spinal canal narrowing. At T12-L1: There is a normal disc, central canal, and neural foramen. MR/MR thoracic spine wo con IMPRESSION: No cord compression or cord signal abnormality. Significant multilevel degenerative changes noted as above with variable degrees of spinal canal and neural foraminal stenosis predominantly in the upper and lower thoracic spine. Please see detailed above. Impression dictated by: Raul Suarez M.D. 07/12/2025 6:11 PM Dictation Location: [facility]ITALSw[facility] Electronically authenticated by: [id number] Y Date: 07/12/2025 18:11
--- OUTSIDE RECORDS SUMMARY | 2025-07-12 07:56 | XMS_ITS | Clinical Summary ---
Author Organization [facility] Address [address] [place] [address] Phone Care Team Providers Care Human Resources Intern Name Role Phone Kristyn Zamora APRN-FIELD CARE COORDINATOR Primary Care Provider Ney Parkinson MD Unavailable [phone] Allergies Active AllergyReactionsCriticalityNoted DateCommentsAcetaminophenUnknown 2409LhbyiapQkjbqae10/09/2023 Medications MedicationSigDispense QuantityRefillsLast FilledStart DateEnd DateStatus vit [...] of right breast in female, estrogen receptor ddatlawo50/24/2024Iron bowgajpbiy09/24/2024 Peptic ulcer otpdksw6601/19/2024ry eyes01/19/2024losed patellar sleeve fracture of left knee01/19/2024cute btjahifbrn80/09/2023llergic /09/2023 Chronic rmyiqlxc56/09/2023trophic zmqqsvqcvndbho56/09/2023owel habit changes 09/05/2022ataracts, zhgnlvibb19/09/4650Pcehxgtcfrhi03/09/2023OVID-19009/05/2022 Fall, xwntjthryc87/09/2023Finger lqrykjhv46/09/9757Uruecdfhd12/09/2023eographic ygajen9909/05/20220651Zmogjfgom16/09/2023olyarthropathy, multiple sites09/05/2022H/O hysterectomy for benign ahuyrat1109/05/20225014Fhmhafgkgpg16/09/2023ack pain 09/05/2022Hip pain, gdxrbuifz58/09/2023Inflamed seborrheic tpimbhmac29/09/2023 Ugborzwa38/09/2023Intercostal pain09/05/2022nee pain, roacabktr76/09/2023Leg cdgpaeiw31/09/2023Memory loss or sqrozawqua29/09/2023Neck pain09/05/2022 Overweight (BMI 25.0-29.9)09/05/2022apular cmeisxqwk73/09/2023neumonia 09/05/2022ostmenopausal egqboaortiav78/09/2023ostmenopausal vaginal bleeding 09/05/2022remature surgical ibvnduvpo17/09/2023ervical radiculopathy, acute 09/05/2022Lumbar disc hhkaomx0209/05/2022Lumbar radiculopathy, acute09/05/2022 Prolapse urethral uijytq6009/05/2022Spinal stenosis of lumbar pqjkns7209/05/2022 Prolapsed internal pnctikqjgag87/09/6391Bntxlpgh18/09/2023Sleep apnea09/05/2022 Spider bite09/05/2022Urinary vzwazfced29/09/2023Vitamin D hqvtrogjpe81/09/2023 Weight loss09/05/2022Word finding tccgwhcihw00/09/2023 Immunizations ImmunizationAdministration DatesNext DueFlu vaccine, quadrivalent, high-dose, preservative free, age 65y+ (FLUZONE)04/12/2022Moderna SARS-CoV-2 Vaccination 05/21/2021,10/27/2020,1Pneumococcal conjugate vaccine, 13-valent (PREVNAR 13)05/08/2016Pneumococcal polysaccharide vaccine, 23-valent, age 2 years and older (PNEUMOVAX 23)05/10/2019,06/21/2014Zoster, live06/21/2014 Social History Tobacco UseTypesPacks/DayYears UsedDateSmoking Tobacco: Never Assessed Tobacco Cessation:Counseling Given: No CommentsUnknownSex and Gender InformationValueDate RecordedSex Assigned at BirthNot on fileLegal JidOyncwj11/26/2022 2:46 PM ESTGender IdentityNot on fileSexual OrientationNot on file Last Filed Vital Signs Vital SignReadingTime TakenCommentsBlood Loyaeuvk199/8301/14/2025 9:58 AM EDT Jufzo329001/14/2025 9:58 AM GTMMluumnndabo38.4 ??C (97.5 ??F)01/14/2025 9:58 AM EDTRespiratory Yrum119601/14/2025 9:58 AM EDTOxygen Yhsfwaurlw85%01/14/2025 9:58 AM EDTInhaled Oxygen Concentration--Fnfnbg27.9 kg (154 lb 1.6 oz)01/14/2025 9:58 AM OOQZfixkr612.1 cm (5' 5 )12/10/2022 4:07 PM EDTBody Mass Index25.64012/10/2022 4:07 PM EDT Plan of Treatment DateTypeDepartmentCare Team (Latest Contact Info)Mwhyaulqlbc40/19/2026 10:00 AM EDTOffice Visit [facility] [address] [place] [phone] [place] [address] [place] [address] Health MaintenanceDue DateLast DoneCommentsCT Iakqcmughmrv10/13/1950FIT-DNA (Cologuard)1950FIT11/07/19490350Ibfyeniuxmytl47/13/1950Hepatitis C Screening 11/08/1967DTaP/Tdap/Td Vaccines (1 - Tdap)11/08/1971MMR Vaccines (1 of 1 - Standard series)07/19/2014Medicare Annual Wellness Visit (AWV)10/07/2024 10/07/2023, 04/29/2022, 05/08/2021, Additional history existsInfluenza Vaccine (#1)5004/15/2024, 05/27/2023, 10/01/2022, Additional history exists COVID-19 Vaccine ( season), 10/27/2020, 09/22/2020one Density ScanLipid Panel/09/2021, 04/04/2021, 02/11/2020, Additional history tonhhtRnxwtjevyza35/20/2032 05/16/2022, 05/16/2022, 05/16/2022, Additional history existsColorectal Cancer Wmmztlsmw26/20/2032Irritable Bowel WlowomxvWtltcjrtqjxd83/20/2022, 04/01/2017 Pneumococcal SubgtjvYayohjgdb19/09/2023, 05/10/2019, 05/08/2016, Additional history existsRSV High Risk: (Elderly (60+) or Population)Completed 05/27/2023Zoster ZdfhqrxxWnjpbrfin15/19/2024, 10/01/2023, 06/21/2014Mammogram Fqamogipwsvk47/30/2025, 12/24/2024, 12/24/2023, Additional history existsHIB VaccinesAged OutNo longer eligible based on patient's age to complete this topic HPV VaccinesAged OutNo longer eligible based on patient's age to complete this topicHepatitis A VaccinesAged OutNo longer eligible based on patient's age to complete this topicHepatitis B VaccinesAged OutNo longer eligible based on patient's age to complete this topicIPV VaccinesAged OutNo longer eligible based on patient's age to complete this topicMeningococcal VaccineAged OutNo longer eligible based on patient's age to complete this topicRotavirus VaccinesAged Out No longer eligible based on patient's age to complete this topic Procedures Procedure NamePriorityDate/TimeAssociated JfxfrdwjbTlksmcstMDLJVSWRFCY74/20/2022 LIPID WHKUGGiywmbe69/03/2022 11:49 AM EDT DIGITAL MAMM YLRVLDEPGBnhgvjj74/26/2022 12:37 PM EDT Encounter for general adult medical examination without abnormal findings from Last 3 Months or Most Recently Relevant to Health Maintenance Results * COLONOSCOPY (05/16/2022)Anatomical RegionLateralityModalityEndoscopy Narrative 05/16/2022 Ordered by an unspecified provider. Authorizing ProviderResult TypeResult StatusOnbase ConversionENDOSCOPY PROCEDURE ORDERABLESFinal Result * Lipid Panel (04/29/2022 11:49 AM EDT)ComponentValueRef RangeTest Method Analysis TimePerformed AtPathologist MfjqlgneqIdlthapnqst6462 - 199 mg/dL [facility]: . ?AGE ?DESIRABLE ?? BORDERLINE HIGH [...] be performed immediately prior to Metamizole dosing. HDL89.0mg/dLH[facility] LABComment: . ?AGE ?VERY LOW ?? LOW ? NORMAL ?HIGH ?? 0-19 Y < 35 < 40 40-45 ---- 20-24 Y ---- < 40 >45 ---- >24 Y ---- < 40 40-60 >60 . Cholesterol/HDL Ratio2.2EJOHN C. FREMONT HOSPITAL LABComment: REF VALUES DESIRABLE < 3.4 HIGH RISK > 5.0 WBE997 - 99 mg/dLH[facility] LABComment: . ? NEAR ?BORD ?AGE ?DESIRABLE ??OPTIMAL ?HIGH ? HIGH ? VERY HIGH 0-19 Y 0 - 109 --- 110-129 >/= 130 ---- 20-24 Y 0 - 119 --- 120-159 >/= 160 ---- >24 Y 0 - 99 100-129 130-159 160-189 >/=190 . ZBQJ370 - 40 mg/dLH[facility] DQVLaverjllyleku7682 - 149 mg/dLH[facility] LABComment: . ?AGE ?DESIRABLE ?? BORDERLINE HIGH [...] ProviderResult TypeResult StatusMicverena MEDRANO BLOOD ORDERABLESFinal ResultPerforming OrganizationAddressCity/State/[facility] CodePhone Number [facility] [address] [place] [address] * DIGITAL MAMM SCREENING (11/20/2021 12:37 PM EDT)Anatomical RegionLaterality ModalityMammographySpecimen (Source)Anatomical Location / LateralityCollection Method / VolumeCollection TimeReceived Time Narrative 11/20/2021 12:45 PM EDT Patient Name: BRIGITTE HIGH STUDY: DIGITAL MAMM SCREENING W/ CLAUDIA; ??11/20/2021 12:37 pm ACCESSION NUMBER(S): [id number] ORDERING CLINICIAN: JING MENDOZA INDICATION: Right breast [...] any future breast imaging appointments, please call [phone] ([phone]). Procedure Note Rick Castro MD - 09/09/2022 Patient Name: BRIGITTE HIGH STUDY: DIGITAL MAMM SCREENING W/ CLAUDIA; 11/20/2021 12:37 pm ACCESSION NUMBER(S): [id number] ORDERING CLINICIAN: JING MENDOZA INDICATION: Right breast [...] any future breast imaging appointments, please call [phone] ([phone]). Authorizing ProviderResult TypeResult StatusMicverena Mendoza DOIMG BI PROCEDURES Final Result from Last 3 Months or Most Recently Relevant to Health Maintenance Insurance Advance Directives For more information, please contact: [phone] (Available ) TypeDate RecordedPatient RepresentativeExplanationAdvance Directives and Living Will3/20/2015Advance Directives and Living Will10/14/2014Living Will10/14/2014 Care Teams Team MemberRelationshipSpecialtyStart DateEnd Date Kristyn Zamora, SWITCH FOREMAN-FIELD CARE COORDINATOR [address] [place] [address] PCP - General12/10/22 [place] [address] [facility] [address]son [address] [place] [address] Consulting PhysicianHematology and Oncology09/16/23
--- OUTSIDE RECORDS SUMMARY | 2025-07-12 07:56 | XMS_ITS | Clinical Summary ---
Author Organization Publicates tem Address [id number] [address] [place] [address] Care Team Providers Care Memory Care Director Name Role Phone Kristyn Zamora Cynthia BUSINESS AFFAIRS MANAGER-CLASSICS PROFESSOR Primary Care Provider Allergies Active AllergyReactionsCriticalityNoted DateCommentsAcetaminophenOther (See Comments),QguhtirvDoktdb16/24/2013 Makes my ears ring Other Reaction(s): EARS RING Makes my ears ring CodeineOther (See Comments)09/05/2022 Medications MedicationSigDispense QuantityRefillsLast FilledStart DateEnd DateStatus ibuprofen (MOTRIN) 600 mg tablet Take 1 tablet (600 mg total) by mouth every 8 (eight) hours as needed.Active zedzqwmo-oxo-pmlyd acid-lutein 0.4-250 mg-mcg tablet Take 1 tablet by mouth in the morning.Active TURMERIC ORAL Take 1 tablet by mouth in the morning.Active calcium carbonate (OS-JAMESON) 600 mg elemental (1,500 mg) tablet Take 1 tablet (600 mg total) by mouth in the morning and 1 tablet (600 mg total) in the evening. Take with meals.Active gfrbqq-wrhalvws-besmkniexu dis (NEURIVA DE-STRESS) 100-200-10 mg capsule Take [...] a CTA abdomen pelvis with runoff. Encounters DateTypeDepartmentCare RpotGywfptjfqtq11/16/2025Refill [facility] [address] [place] [phone] Lexx Diop MD from Last 3 Months Family History RelationNameStatusCommentsFatherStroke, femoral artery surgeriesMotherblood clots, CABGx4 Social History Tobacco UseTypesPacks/DayYears UsedDateSmoking Tobacco: FormerCigarettes Smokeless Tobacco: Never Tobacco Cessation:Counseling Given: Not Answered Comments:Patient smoked 1PPD 5526-7837 Hunger ScreeningAnswerDate RecordedWithin the past 12 months [...] Last Filed Vital Signs Vital SignReadingTime TakenCommentsBlood Otjhemsa847/8804 8:43 AM EDT Zzwvx312311/18/2024 8:43 AM TUZWelyzwdrsxq96.2 ??C (97.1 ??F)11/18/2024 8:43 AM EDTRespiratory Rate--Oxygen Rpuezrdelp26%11/18/2024 8:43 AM EDTInhaled Oxygen Concentration--Ilunht24.6 kg (160 lb)11/18/2024 8:43 AM YEKKgkhyz786.1 cm (5' 5 )11/18/2024 8:43 AM EDTBody Mass Index26.63011/18/2024 8:43 AM EDT Plan of Treatment Health MaintenanceDue DateLast DoneCommentsDepression Yaxrvcmjl20/13/1962 DTaP,Tdap and Td Vaccines (1 - Tdap)1968Fall Risk Jgxqbwvrc60/13/2015 Zoster (Shingles) Vaccine (3 of 3)/, 10/01/2023, 06/21/2014 COVID-19 Vaccine ( - season)/, 10/27/2020, 09/22/2020Influenza Dvosavt23/, 05/27/2023, 10/01/2022, Additional history existsTobacco Pflijxyps39RSV ( or age 60+ yrs)Ootafxsym50/31/2023 Medical Devices Not on file Insurance Care Teams Team MemberRelationshipSpecialtyStart DateEnd Date Kristyn Zamora, BUSINESS AFFAIRS MANAGER-CLASSICS PROFESSOR [address] [place] [phone] [facility]/25/24
--- OUTSIDE RECORDS SUMMARY | 2025-07-12 07:56 | XMS_ITS | Clinical Summary ---
Author Organization [facility] Address [address] [place] [address] Care Team Providers Care Axle Turner Name Role Phone Unavailable Primary Care Provider Unavailabl e Allergies Active AllergyReactionsCriticalityNoted DateCommentsAcetaminophenUnknown, RndzlpedWlogmk53/24/2013 Other Reaction(s): EARS RING Makes my ears ring Other Reaction(s): EARS RING, Other (See Comments) Makes my ears ring Other Reaction(s): EARS RING ??Makes my ears ring FjolvgeIqeboya00/09/2023 Other Reaction(s): Other (See Comments) Medications MedicationSigDispense QuantityRefillsLast FilledStart DateEnd DateStatus B Jecfuid-Kjocwo-[place] (GNP B-100 Complex) tablet controlled-release Take by [...] BY MOUTH EVERY 6 TO 8 HOURS KWLBNU6207/20/2023ctive Myrbetriq 50 MG 24 hr tablet Take [...] InformationValueDate RecordedSex Assigned at BirthNot on fileLegal UgwKnxrqs97/28/2024 12:54 PM EDTGender IdentityNot on fileSexual OrientationNot on file Last Filed Vital Signs Vital SignReadingTime TakenCommentsBlood Egttfvch434/66011/23/2024 2:10 PM EDT Pulse--Temperature--Respiratory Rate--Oxygen Saturation--Inhaled Oxygen Concentration--Kjueqs97.3 kg (163 lb 12.8 oz)11/23/2024 2:10 PM EDTHeight--Body Mass Index-- Plan of Treatment Health MaintenanceDue DateLast DoneCommentsCT Ljvlhpaigdsk73/13/1950FIT-DNA 1950FIT1950FOBT11/07/19498539Zwjgxhevhlcki58/13/1950COVID-19 Vaccine ( season)51, 10/27/2020, 09/22/2020Influenza Vaccine (#1)5004/15/2024, 05/27/2023, 10/01/2022, Additional history exists Ifungmeafix87/20/524153, 05/16/2022, 04/01/2017Colorectal Cancer Ruwvlvjjd79/20/2032Pneumococcal Vaccine: 65+ BszpuVwmaqfxju90/09/2023, 05/10/2019, 05/08/2016, Additional history existsMammogramDiscontinued 12/24/2024, 12/24/2023, [...] EDT Narrative 12/24/2024 10:09 AM EDT [facility] ?[address] ? [place] [address] ? Mammography Report ? Signed ? Patient: AYLINEN,BRIGITTE ?MR#: [id number] ?? : 1950 ?Acct:[id number] ?? Age/Sex: 74 / F ?ADM Date: 12/24/24 ?? Loc: MAMMO ? Attending Dr: Tania Morales D.O. ? Ordering Physician: Tania Morales D.O. ?Results: ? Date of Service: 12/24/24 ?Follow Up: ? Procedure(s): MM tomosynthesis screening RT ?? Accession Number(s): [id number] ? cc: BART DOUGHERTY ; Tania Morales D.O. ? Patient Name: ? BRIGITTE HIGH ? MR#: [id number] ? : 1950 ? Exam Date: 12/24/2024 [...] at age 53. ? LOCATION: ? [facility] ? BREAST COMPOSITION: ? The breasts are [...] 1009 ? DD/ 1009 ? TD/TT: ? Submersible Pilot: Procedure Note Radiology, Radiologist, - 12/24/2024 [place] [address] Mammography Report Signed Patient: FABIAN HIGH#: [id number] : 1950Acct:[id number] Age/Sex: 74 / FADM Date: 12/24/24 Loc: MAMMO Attending Dr: Tania Morales D.O. Ordering Physician: Tania Morales D.O.Results: Date of Service: 12/24/24Follow Up: Procedure(s): MM tomosynthesis screening RT Accession Number(s): [id number] cc: BART DOUGHERTY ; Tania Morales D.O. Patient Name: BRIGITTE HIGH MR#: [id number] : 1950 Exam Date: 12/24/2024 Ordering Doctor: [...] colon cancer at age 53. LOCATION: [facility] BREAST COMPOSITION: The breasts are [...] MD on 12/24/2024 at 09:59 Approved by: aRul Suarez MD on 12/24/2024 at 10:08 Dictated By: Raul Suarez M.D. Signed By:12/24/24 1009 DD/ 1009 TD/TT: Submersible Pilot: Authorizing ProviderResult TypeResult StatusCorey Carmen DOIMG BI PROCEDURESFinal Result from Last 3 Months or Most Recently Relevant to Health Maintenance Insurance
--- OUTSIDE RECORDS SUMMARY | 2025-07-12 07:56 | XMS_ITS | Encounter Summary ---
Author Organization [facility] Address [id number] [address] [place] [address] Care Team Providers Care Membership Director Name Role Phone Kristyn Zamora Primary Care Provider Reason for Visit * ReasonCommentsMed Refill Encounter Details DateTypeDepartmentCare Team (Latest Contact Info)Bdqlgqxfxhw96/16/2025Refill [facility] [address] [place] [address] Lexx Diop MD [address] [address] Social History Tobacco UseTypesPacks/DayYears UsedDateSmoking Tobacco: FormerCigarettes Smokeless Tobacco: Never Comments:Patient smoked 1PPD 6557-1579 Hunger ScreeningAnswerDate RecordedWithin the past 12 months [...] ESTGender IdentityNot on fileSexual OrientationNot on file documented as of this encounter Plan of Treatment Not on file documented as of this encounter Visit Diagnoses Not on filedocumented in this encounter Care Teams Team MemberRelationshipSpecialtyStart DateEnd Date Kristyn Zamora APRN-CNP [address] [place] [address] PCP - GeneralFamily Medicine10/25/24documented as of this encounter
--- OUTSIDE RECORDS SUMMARY | 2025-07-12 07:56 | XMS_ITS | Clinical Summary ---
Author Organization [facility] Address [address] [place] [address] Care Team Providers Care Produce Weigher Name Role Phone Kristyn Zamora CNP Primary Care Provider + Allergies Active AllergyReactionsCriticalityNoted DateCommentsAcetaminophenOther: See Abhpvkqh24/03/2014 Makes my ears ring Medications MedicationSigDispense QuantityRefillsLast [...] 60 capsule 5Active Active Problems ProblemNoted DateDiagnosed UddvPvnknnjspqada63/15/2015 Family History Medical HistoryRelationCommentsCataractFatherMacular DegenFatherCataractMother RelationStatusCommentsFatherDeceasedMotherDeceased Social History Tobacco UseTypesPacks/DayYears UsedDateSmoking Tobacco: Former Comments:quit 7 years ago Alcohol UseStandard Drinks/WeekCommentsYes0 (1 standard drink = 0.6 oz pure alcohol)socialArea Deprivation IndexAnswerDate RecordedNational Score (1-100), lower number is lower brqm444202/24/2023State Score (1-10), lower number is lower ofyu4953Data from: https://www.neighborhoodatlas.medicine.[facility].edu/. Last address used for j[address]puprhyb[address] [place], [place] [address]CommentsNoSex and Gender InformationValueDate RecordedSex Assigned at BirthNot on fileLegal Sex Ghguwu5206/28/2012 8:56 AM ESTGender IdentityNot on fileSexual OrientationNot on fileOccupationIndustryJob Start DateJob End DateSECRETARYNot on fileNot on file Not on fileretired in 2013Not on fileNot on fileNot on file Last Filed Vital Signs Vital SignReadingTime TakenCommentsBlood Jxyeodce253/8609/21/2024 10:35 AM EST Oorbg729509/21/2024 10:35 AM NKRLklemgcykri52.4 ??C (97.6 ??F)05/30/2014 11:01 AM ESTRespiratory Clqr934704/25/2015 3:31 PM EDTOxygen Vqwwegedwz35%04/25/2015 3:31 PM EDTInhaled Oxygen Concentration--Tmyzgy18.6 kg (164 lb 6.4 oz)09/21/2024 10:35 AM YGSWnjfrc828.1 cm (5' 5 )09/21/2024 10:35 AM ESTBody Mass Index27.36 09/21/2024 10:35 AM EST Plan of Treatment Health MaintenanceDue DateLast DoneCommentsAnxiety Zybcwswoh97/13/1968Depression Xepgpqsbg99/13/1968Hepatitis C Zyuqfohqs62/13/1968CT Yscneacpclkt55/13/1995 Cologuard (FIT-DNA)1994Fecal Occult Blood11/07/19947737Azubaqlqujymc23/13/1995 Medicare Annual Wellness Visit10/26/2014Bone Density Midtsgbog13/13/2015 DTaP,Tdap,Td Vaccine (2 - Td or Tdap)Colonoscopy05/16/2023 05/16/2022, 05/16/2022, 04/01/2017, Additional history existsColorectal Cancer Lwcmojsdb36/20/2023Shingrix Vaccine (3 of 3)409/, 10/01/2023, 06/21/2014dvance Directive Xxweundqks11/01/2025ovid-19 Vaccine ( season)/, 10/27/2020, 09/22/2020Influenza Vaccine (#1) /, 05/27/2023, 10/01/2022, Additional history existsDiabetes Fjbnorlib78/09/2021, 04/12/2022, 01/18/2022, Additional history exists Lipid Gtaviggon29/09/2021, 04/04/2021, 02/11/2020, Additional history existsPneumococcal Vaccine: 50+Mtmoafinr74/09/2023, 05/10/2019, 05/08/2016, Additional history existsRSV HqpktosCszfaenci09/31/2023Mammogram Screening Ckzeifyvpkut28/29/2024, 12/24/2023 Medical Devices ImplantedTypeAreaManufacturerDevice IdentifierShelf Expiration DateModel / Serial / LotLens Iol +15.50 Acrsf 13mm 6mm - [id number] [facility] LensRight: Eye [employer] [id number]/31/[id number] 15.5 / [id number] / Lens Iol +14 Nidia 0 D Bcnvx 13 - [id number] Implanted:Qty: [facility]ra[facility] LensLeft: Eye[employer] [id number]/30/[id number] 14.0 / [id number] / Insurance Care Teams Team MemberRelationshipSpecialtyStart DateEnd Date Kristyn Zamora, TOOL AND MACHINE MAINTAINER [address] [place] [address] PCP - GeneralInternal Medicine09/13/24
--- OUTSIDE RECORDS SUMMARY | 2025-07-12 07:56 | XMS_ITS | Patient Health Record ---
Author Organization [facility] Address [address] [place] [address] Care Team Providers Care Auto Body Repair Estimator Name Role Phone Dr. Fred Recinos Primary Care Provider Allergies Allergen (clinical drug ingredient) Drug/Non Drug Allergy documented on EMR Reaction Allergy Type Onset Date Status MoldUnknownAllergyActiveDust MitesUnknownAllergyActiveCat danderCat Dander UnknownAllergyActive Results Component Value Reference Range Notes Ultrasound : Legs, bilateral Reviewed date:01/17/2025 01:10:16 PM Interpretation:No DVT, Distal left small saphenous vein reflux associated with multiple daycare assistant veins, Reflux in varicosities Performing Lab: Notes/Report: No DVT, Distal left small saphenous vein reflux associated with multiple daycare assistant veins, Reflux in varicosities Reason For Referral [...] and above Unknown 09/05/2022 Administered Pneumococcal polysaccharide CUI84Seyhmod25/09/2023dministeredInfluenza, seasonal, injectable (split), for 3 yrs and yaYipgrhs54/07/2023dministered Social History Tobacco Use: Social History Observation [...] Vital Signs Heart Rate 75 /min 03/11/2025 Awwrlixn95 %03/11/2025lood pressure rvdbrikvx37 mm Hg03/11/20253818Aitdrk51 in 03/11/2025lood pressure mm Hg03/11/20251522Ucwlsf414 lbs03/11/2025MI 25.96 kg/m203/11/2025 Encounters Encounter Location Date Provider Diagnosis [facility] 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 [place] [address] 02/24/2025 Fred Recinos Varicose veins of right lower extremity with inflammation I83.11 and Varicose veins of left lower extremity with inflammation I83.12 [facility] [address] [place] [address] 02/03/2025 Fred Recinos Assessments Encounter Date Diagnosis [...] evaluated and seen by Ebonie Davis, CATHY, [facility], and I have reviewed the findings and [...] Date Coverage End Date [place] [address] [id number] High - patient is the insuredMedical [facility] CenterPO [address] [place] [id number], RosemarieSelf - patient is the insured Medical (General) History Medical History History ICD Code Arthritis Chronic AcneEye Lash growthVaricose veinsLT breast cancer s/p reconstruction and chemotherapyUrethral caruncleSurgical History Surgery Date(Month/Year) Phlebetomy 01/2025 sclerotherapy right breast reductionleft patella stabilization with bracecataract removal mastectomyosteophytectomybi lateral carpal tunneltonsillectomyhysterectomy discectomyphlebectomyHospitalization History Reason Date(Month/Year) mastectomy discectomynatural child birthhysterectomy
--- OUTSIDE RECORDS SUMMARY | 2025-07-12 07:56 | XMS_ITS | Clinical Summary ---
Author Organization [facility] Address [address], [address] [place] [address] Care Team Providers Care Lasting Room Supervisor Name Role Phone Unavailable Primary Care Provider Unavailabl e Allergies Active AllergyReactionsCriticalityNoted NeulXusuxfppQwnqlgojolhww51/24/2013 Medications MedicationSigDispense QuantityRefillsLast FilledStart DateEnd DateStatus ibuprofen (ADVIL;MOTRIN) 200 MG tablet Take 600 mg by mouth every 6 hours as needed for PainActive Active Problems ProblemNoted DateDiagnosed DateSpinal stenosis of lumbar region without neurogenic ftgiwfqmpfic62/26/2018Left sided ybekzgud47/26/2018 Social History Tobacco UseTypesPacks/DayYears UsedDateSmoking Tobacco: FormerCigarettesQuit: 11/20/2006Smokeless Tobacco: NeverCommentsUnknownSex and Gender InformationValueDate RecordedSex Assigned at BirthNot on fileLegal SexFemale 09/08/2012 4:53 AM ESTGender IdentityNot on fileSexual OrientationNot on file Last Filed Vital Signs Vital SignReadingTime TakenCommentsBlood Pressure--Pulse--Xsfmlpydtfl19.5 ??C (97.7 ??F)11/20/2017 2:34 PM EDTRespiratory Rate--Oxygen Saturation--Inhaled Oxygen Concentration--Qppdnn64.3 kg (177 lb)11/20/2017 2:34 PM VYLPidjyf170.1 cm (5' 5 )11/20/2017 2:34 PM EDTBody Mass Index29.45011/20/2017 2:34 PM EDT Plan of Treatment Not on file Insurance
--- OUTSIDE RECORDS SUMMARY | 2025-07-12 07:57 | XMS_ITS | Patient Health Record ---
Author Organization [facility] in [place] Address [address] [place] [address] Care Team Providers Care Technology Instructor Name Role Phone Kristyn Zamora Primary Care Provider [phone] Anna Cantor Unavailable [phone] Allergies Allergen (clinical drug ingredient) Drug/Non Drug Allergy documented on EMR Reaction Allergy Type Onset Date Status Langston Mold (uncoded)UnknownAllergyActiveacetaminophenTylenolRinging earsDrug AllergyActiveCat danderCat DanderUnknownAllergyActiveCannabis sativa whole extractMarijuana (Cannabis Sativa)SwellingDrug AllergyActiveSpider BitesEdema/ SwellingAllergyActive Results Component Value Reference Range Notes COVID-19, Flu A+B IH Reviewed date:06/30/2025 09:44:11 AM Interpretation: Performing Lab: Notes/Report: COVID - FLU A-FLU B-Control+XR lumbar spine 2-3V Reviewed date:07/01/2025 01:16:27 PM Interpretation: Performing Lab: Notes/Report: Source Facility: [place] [address] [place] [address] XRay Report Signed Patient: BRIGITTE HIGH MR#: [id number] : 1950 Acct:[id number] Age/Sex: 74 / F ADM Date: 06/30/25 Loc: RAD Attending Dr: KRISTYN ZAMORA Ordering Physician: KRISTYN ZAMORA Date of Service: 06/30/25 Procedure(s): XR lumbar spine 2-3V Accession Number(s): [id number] cc: KRISTYN ZAMORA The [address] [id number] Patient Name: BRIGITTE HIGH MRN: [id number] date: 1950 Sex: F Assigned Patient Location: [facility] Current Patient Location: [facility] Accession/Order Number: [id number] Exam Date: 06/30/2025 10:55 Report Date: 06/30/2025 [...] Mckeon M.D. 06/30/2025 11:40 AM Dictation Location: [place] [address] Electronically authenticated by: [id number] Y Date: 06/30/2025 11:40 Dictated By: Sangeeta Mckeon M.D. Signed By: 06/30/25 1143 DD/ 1140 TD/TT: Control Officer Manager:XR thoracic spine 2V Reviewed date:07/01/2025 01:16:27 PM Interpretation: Performing Lab: Notes/Report: Source Facility: [address] [address] XRay Report Signed Patient: BRIGITTE HIGH MR#: [id number] : 1950 Acct:[id number] Age/Sex: 74 / F ADM Date: 06/30/25 Loc: RAD Attending Dr: KRISTYN ZAMORA Ordering Physician: KRISTYN ZAMORA Date of Service: 06/30/25 Procedure(s): XR thoracic spine 2V Accession Number(s): [id number] cc: KRISTYN ZAMORA [place] [address] Patient Name: BRIGITTE HIGH MRN: [id number] date: 1950 Sex: F Assigned Patient Location: [facility] Current Patient Location: [facility] Accession/Order Number: [id number] Exam Date: 06/30/2025 10:55 Report Date: 06/30/2025 [...] Mckeon M.D. 06/30/2025 11:40 AM Dictation Location: [place] [address] Electronically authenticated by: [id number] Y Date: 06/30/2025 11:40 Dictated By: Sangeeta Mckeon M.D. Signed By: 06/30/25 1143 DD/ 1140 TD/TT: Control Officer Manager:MM tomosynthesis screening BI Reviewed date:12/24/2024 12:40:04 PM Interpretation: Performing Lab: Notes/Report: Source Facility: [place] [address] Mammography Report Signed Patient: BRIGITTE HIGH MR#: [id number] : 1950 Acct:[id number] Age/Sex: 74 / F ADM Date: 12/24/24 Loc: MAMMO Attending Dr: Tania Morales D.O. Ordering Physician: Tania Morales D.O. Results: Date of Service: 12/24/24 Follow Up: Procedure(s): MM tomosynthesis screening RT Accession Number(s): [id number] cc: KRISTYN ZAMORA ; Tania Morales D.O. Patient Name: BRIGITTE HIGH MR#: [id number] : 1950 Exam Date: 12/24/2024 Ordering Doctor: [...] colon cancer at age 53. LOCATION: [facility] BREAST COMPOSITION: The breasts are [...] By: Raul Suarez M.D. Signed By: 12/24/24 100 DD/ 100 TD/TT: Control Officer Manager:VITAMIN D 25 [place] Reviewed date:11/09/2024 02:39:09 PM Interpretation: Performing Lab: Notes/Report: [facility] ,Vitamin D34.6 <20 ng/mL Vit D deficient 20-<30 ng/mL Vit D insufficient 30-100 ng/mL Vit D sufficient >100 ng/mL Potential Toxicity Performing Lab:see noteML - [facility] LBTSH Reviewed date:11/09/2024 02:39:09 PM Interpretation: Performing Lab: Notes/Report: [facility] ,Thyroid Stimulating Hormone1.8710.358-3.740 uIU/mLPerforming Lab:see noteML - [facility] LBT4 Reviewed date:11/09/2024 02:39:09 PM Interpretation: Performing Lab: Notes/Report: [facility] ,T4 Thyroxine5.704.80-13.90 ug/dLPerforming Lab:see noteML - [facility] LBPROF 14(COMP METB) Reviewed date:11/09/2024 02:39:09 PM Interpretation: Performing Lab: Notes/Report: [facility] ,Plgrxv077346-395 mmol/LPotassium3.73.5-5.1 mmol/JZebnidph59180-268 mmol/LCarbon Tjosdya22.321.0-32.0 mmol/LAnion Gap14.7Tujxrae6768-924 mg/dLBlood Urea Nitrogen 11.07.0-18.0 mg/dLCreatinine0.670.55-1.02 mg/dLEstimated GFR ( Geetha>60 >=60 mL/min/1.73m 2Estimated GFR (Non- Dayana>60>=60 mL/min/1.73m 2BUN Creatinine Ratio16.3Pylyfod7.48.5-10.1 mg/dLBilirubin Total0.40.2-1.0 mg/dL Aspartate Amino Ieszzgbqusp7187-34 U/LAlanine Bbxbndtndlssaaqr9055-35 U/L Alkaline Czrvyjjjaze6918-975 U/LTotal Protein7.66.4-8.2 g/dLAlbumin Level3.73.4- 5.0 g/dLGlobulin3.9Albumin Globulin Ratio0.9Performing Lab:see noteML - [facility] LBLIPID PROFILE Reviewed date:11/09/2024 02:39:09 PM Interpretation: Performing Lab: Notes/Report: [facility] ,Ugyezsxuzcjrj78<=150 mg/fXGccitstvjoq543<=200 mg/dLHDL Cuydrhhdxiz5976-99 mg/dL > or =60 mg/dl - LOW CARDIOVASCULAR RISK <40 mg/dl - HIGH CARDIOVASCULAR RISK LDL Cholesterol Yqkutvbcqp62.0 <100 mg/dl OPTIMAL 100-129 mg/dl NEAR OR ABOVE OPTIMAL 130-159 mg/dl BORDERLINE HIGH 160-189 mg/dl HIGH >190 mg/dl VERY HIGH VLDL CHOLESTEROL7.6Chol HDL Ratio1.6 3.3 - 4.4 LOW RISK 4.4 - 7.1 AVERAGE RISK 7.1 - 11.0 MODERATE RISK >11.0 HIGH RISK Performing Lab:see note - [facility] LBLAB TESTING Reviewed date:11/11/2024 11:59:20 AM Interpretation: Performing Lab: Notes/Report: [id number] CA27.29 [facility] ,Miscellaneous TestCOMMENT. Test Ordered: [id number] CA 27.29 CA 27.29 44.9 [H ] U/mL Reference Range: 0.0-38.6 Siemens Centaur Immunochemiluminometric Methodology (ICMA) Values obtained with different assay methods or kits cannot be used interchangeably. Results cannot be interpreted as absolute evidence of the presence or absence of malignant disease. Performed at: [address] [id number] Camp Nurse: Boris Rosen PhD, Phone: [phone] Performing Lab:[facility] LBIRON Reviewed date:11/09/2024 02:39:09 PM Interpretation: Performing Lab: Notes/Report: [facility] ,Iron59.050.0-170.0 ug/dLPerforming Lab:see noteML - [facility] LB INSULIN Reviewed date:11/10/2024 10:55:47 AM Interpretation: Performing Lab: Notes/Report: [facility] ,Insulin5.32.6-24.9 uIU/mL Performed at: [address] [id number] Camp Nurse: Boris Rosen PhD, Phone: [phone] Performing Lab:see note - [facility] LBGLYCOHEMOGLOBIN A1C Reviewed date:11/09/2024 02:39:09 PM Interpretation: Performing Lab: Notes/Report: [facility] ,Glycohemoglobin A1C5.54.5-6.2 % ADA RECOMMENDED LIMIT 4.0 - 6.0 ADA THERAPEUTIC TARGET < 7.0 ACTION SUGGESTED > 7.0 Estimated Average Baxjlmv671Bnmiwzezsv Lab:see noteML - [facility] LB FREE T3 Reviewed date:11/09/2024 02:39:09 PM Interpretation: Performing Lab: Notes/Report: [facility] ,Free T32.412.18-3.98 pg/mLPerforming Lab:see noteML - [facility] LB CBC AUTO DIFF Reviewed date:11/09/2024 02:39:09 PM Interpretation: Performing Lab: Notes/Report: [facility] ,White Blood Count4.94.0-11.0 10 3/uLRed Blood Count4.304.20-5.40 10 6/uL Hhnvmgcumk92.112.0-16.0 g/lJLzwhbmrjni64.736.0-48.0 %Mean Corpuscular Lawncw60.3 81.0-99.0 fLMean Corpuscular Lhrdhxwkxq23.526.7-34.0 pgMean Corpuscular HGB Conc 33.029.9-35.2 g/dLRed Cell Distribution Width12.911.0-15.0 %Platelet Hnzmf269 150-450 10 3/uLMean Platelet Volume9.59.5-13.5 fLNeutrophils Percent Auto55.5 43.0-75.0 %Lymphocytes Percent Auto33.820.5-60.0 %Monocytes Percent Auto6.81.7- 12.0 %Eosinophils Percent Auto2.70.9-7.0 %Basophils Percent Auto1.00.2-2.0 % Immature Granulocytes Pct Auto0.20.0-0.5 %Neutrophils Absolute Auto2.71.4-6.5 10 3/uLLymphocytes Absolute Auto1.61.2-3.8 10 3/uLMonocytes Absolute Auto0.30.3-0.8 10 3/uLEosinophils Absolute Auto0.10.0-0.7 10 3/uLBasophils Absolute Auto0.10.0- 0.1 10 3/uLImmature Granulocytes Abs Auto0.010.00-0.03 10 3/uLPerforming Lab:see noteML - [facility] LBCA segmental UE or LE CHRIS Reviewed date:09/27/2024 03:26:20 PM Interpretation: Performing Lab: Notes/Report: Source Facility: [place] [address] [place] [address] Cardiology Report Signed Patient: BRIGITTE HIGH MR#: [id number] : 1950 Acct:[id number] Age/Sex: 73 / F ADM Date: 09/15/24 Loc: CARD Attending Dr: KRISTYN ZAMORA Ordering Physician: KRISTYN ZAMORA Date of Service: 09/15/24 Procedure(s): CA segmental UE or LE CHRIS Accession Number(s): [id number] cc: KRISTYN ZAMORA [facility] Test Date: 2024-09-15 Pat Name: BRIGITTE HIGH Department: Room: - Gender: Female Broke Worker: Yanni Lacey : 1950 Requested By: [id number] Order Number: [id number] Alena MD: LION BACON M.D. Interpretive Statements Summary [...] 09/25/24 1800 09/25/24 1800 DD/ 1357 TD/TT: Control Officer Manager:US THYROID Reviewed date:02/15/2025 10:40:33 AM Interpretation: Performing Lab: Notes/Report: Source Facility: [place] [address] Ultrasound Report Signed Patient: BRIGITTE HIGH MR#: [id number] : 1950 Acct:[id number] Age/Sex: 74 / F ADM Date: 02/11/25 Loc: US Attending Dr: KRISTYN ZAMORA Ordering Physician: KRISTYN ZAMORA Date of Service: 02/11/25 Procedure(s): US thyroid Accession Number(s): [id number] cc: KRISTYN ZAMORA [place] [address] Patient Name: BRIGITTE HIGH MRN: [id number] date: 1950 Sex: F Assigned Patient Location: Current Patient Location: Accession/Order Number: [id number] Exam Date: 02/12/2025 00:25 Report Date: 02/12/2025 00:29 At the request of: KRISTYN ZAMORA Procedure: US thyroid US thyroid 02/11/2025 11:09 [...] Suarez M.D. 02/12/2025 12:29 AM Dictation Location[facility] Electronically authenticated by: [id number] Y Date: 02/12/2025 00:29 Dictated By: Raul Suarez M.D. Signed By: 02/12/25 0032 DD/ 0029 TD/TT: Control Officer Manager:MELISA, Flu A+B IH Reviewed date:07/01/2025 01:16:27 PM Interpretation: Performing Lab: Notes/Report: COVIDpositiveFLU AnegFLU BnegControlpresent Reason For Referral Diagnosis 1 BRBPR (bright red bl ood per rectum) (K62.5) Referral Organization [facility] Referring Provider First Name Kristyn Referring Provider Last Name Noah Referring Provider [facility] Referred Provider Specialty Gastroentero logy Referral Priority Routine Diagnosis 1 Black toe (I96) Referral Organization [facility] Referring Provider First Name Kristyn Referring Provider Last Name Noah Referring Provider [facility] Referred Provider Josh Casillas Referred Provider Specialty Podiatry Referral Priority Routine Reason Would like to be see n at [place] office please. Thank You. Diagnosis 1 Peripheral artery di sease (I73.9) Referral Organization [facility] Referring Provider First Name Kristyn Referring Provider Last Name Noah Referring Provider Speciality Family [facility] aaron Referred Provider [facility] Diop Referred Provider [...] Orally Once a day; Duration: 30 03/07/2025 Zws-YkfppzRjgnfg-C 37.5 MG1 tablet before breakfast Orally Once a day; Duration: 30 5ActiveBimatoprost 0.03 %INSTILL 1 DROP INTO BOTH EYES IN THE EVENING ONCE A DAY; Duration: 30ActiveHair Skin & NailsActive Social History Tobacco Use: Social History Observation Description Date Details (start date - stop date) Former Smoker NA - NA Tobacco Use/Smoking Question Answer Notes Patient is a former smoker How long has it been since you last smoked?> 10 yearsAlcohol Screen (Audit-C) Question Answer Notes Did you have a drink containing alcohol in the p ast year? Yes How often did you have 6 or more drinks on one occasion in the past year?Never (0 point)How many drinks did you have on a typical day when you were drinking in the past year?1 or 2 drinks (0 point)How often did you have a drink containing alcohol in the past year?Monthly (2 points)Aylhek1LqeuktnbskhrdwAffpzmdiWWRAI-B (Standard) Question Answer Notes Did you have a drink containing alcohol in the p ast year? No Mafdiq7GvjjdmnmnyldzbOhavakre Problems Problem Type SNOMED Code ICD Code Onset Dates Problem Status W/U Status Risk Notes Problem Gastro-esophageal re flux disease without esophagitis (616448289) Gastro-esophageal reflux disease without esophagitis (K21.9) ActiveconfirmedProblemOverweight (515128428)Overweight (E66.3)Activeconfirmed ProblemOsteoarthritis (714979178)Unspecified osteoarthritis, unspecified site (M19.90)ActiveconfirmedProblemDysuria (25981098)Dysuria (R30.0)Activeconfirmed ProblemHistopathology finding (363683416)Unspecified abnormal finding in specimens from other organs, systems and tissues (R89.9)ActiveconfirmedProblem Fatigue (39128649)Fatigue (R53.83)ActiveconfirmedProblemPeripheral artery disease (261258773)Peripheral artery disease (I73.9)ActiveconfirmedProblem Arthritis (6730219)Arthritis (M19.90)ActiveconfirmedProblemInsomnia (612863299) Insomnia (G47.00)ActiveconfirmedProblemPersonal history of primary malignant neoplasm of breast (720098654)History of breast cancer (Z85.3)Activeconfirmed ProblemBack pain (128853403)Back pain (M54.9)ActiveconfirmedProblemSinusitis (48391894)Sinusitis (J32.9)ActiveconfirmedProblemOsteoporosis (23244107) Osteoporosis (M81.0)ActiveconfirmedProblemColonic polyp (55026553)Colonic polyp (K63.5)ActiveconfirmedProblemBreathing painful (11864414)Rib pain on left side (R07.81)ActiveconfirmedProblemNon-toxic single thyroid nodule (530203838)Left thyroid nodule (E04.1)ActiveconfirmedProblemCystic acne (62231381)Cystic acne (L70.0)ActiveconfirmedProblemCervical dysfunction (M53.9)ActiveconfirmedProblem Ex-smoker for more than 1 year (22690210623750)Ex-smoker for more than 1 year (Z87.891)ActiveconfirmedProblemIschemia of both lower extremities (I99.8)Active confirmedProblemGangrenous disorder (518747889)Black toe (I96)Activeconfirmed ProblemCellulitis of toe (28758934)Paronychia of great toe (L03.039)Active confirmedProblemChronic cough (46107786)Chronic cough (R05.3)Activeconfirmed Vital Signs Heart Rate 67 /min 05/19/2025 Knenswpssjs25.2 degrees Ssfqfbqbea90/04/6682Mjounbvi37 %05/19/2025lood pressure prskvnxoj31 mm Hg06/30/20253635Jvzzks06 in06/30/2025lood pressure waruvhxy804 mm Hg 06/30/20256917Xlzvja909 lbs108/31/2024BMI27.45 kg/m206/30/2025 Procedures Procedure Date Ordered Date Performed Result Body Sit e ALDO Segmental Pressure Study of Lower Extremity 09/08/2024 N/A Encounters Encounter Location Date Provider Diagnosis [address] [address] 08/11/2024 Kristyn Zamora Cellulitis L03.[address] [address] 09/08/2024 Kristyn Zamora Black toe I96 and BRBPR (bright red blood per rectum) K62.[address] [address] 02/08/2025 Kristyn Zamora Wasp sting T63.461A [facility] (PODIATRY) [address] [place] [address] [place] [address] 09/09/2024 Anna Cantor Other injury of unspecified body region, initial encounter T14.8XXA and Blister (nonthermal), unspecified lesser toe(s), initial encounter S90.426A [address] [address] 06/30/2025 Kristyn Zamora Sinus pressure J34.89 ; Sinusitis J32.9 and Back pain M54.[address] [address] 07/30/2024 Kristyn Zamora Overweight E66.3 and Chronic cough R05.[address] [place] [address] 11/09/2024 Kristyn Zamora Overweight E66.3 ; Fatigue R53.83 and History of breast cancer Z85.3 [facility] [address] [facility] [place] [address] 12/27/2024 Kristyn Zamora Paronychia L03.019 and Wellness examination Z00.00 [facility] [address] [facility] [place] [address] 04/25/2025 Kristyn Zamora Body aches R52 ; Sinus drainage J34.89 and COVID-19 U07.1 [facility] [address] [facility] [place] [address] 05/19/2025 Kristyn Zamora Bronchitis J40 and Overweight E66.3 [facility] [address] [facility] [place] [address] 05/05/2025 Kristyn Zamora [facility] [facility] [place] [address] 07/01/2025Pamela CramerBack pain M54.9B[facility] [facility] [place] [address]/08/2024Pamelviky [facility] [facility] [place] [address]/Pamela NoahLeft thyroid nodule E04.1BAdventHealth [facility] [facility] [place] [address]/Pamela CramerBVH [facility] [place] [place] [address]/10/2024Pamela CramerWasp sting T63.461A [facility] [facility] [place] [address] 03/02/2025Pamela [facility] [facility] [place] [address]/05/2025Pamela [facility] [address] [facility] [place] [address]/06/2025Pazenia ZamoraBRBPR (bright red blood per rectum) K62.5BAd[facility]Health [facility] [facility] [place] [address]/06/2025Paryliea NoahBlack toe E18ZfepqajKit [facility] [facility] [place] [address]/Pamela EstivenmerThe [facility] [facility] [place] [address]/09/2024Paryliea NoahPeripheral artery disease I73.9BAdventHealth Parker[address] [facility] [place] [address]/Paryliea [facility] [facility] [place] [address]/Pamela NoahSt. [facility] [place] [place] [address]/09/2024Pamela EstivenMercyOne [facility] [address] [facility] [place] [address]/06/2025Kristyn Zamora Assessments Encounter Date Diagnosis (ICD Code) Assessment Notes Treatment Notes Treatment Clinical Notes Section Notes 07/30/2024 Overweight (ICD-10 - E66.3) 06/30/2025Sinusitis (ICD-10 - J32.9)06/30/2025Sinus pressure (ICD-10 - J34.89) 09/08/2024RBPR (bright red blood per rectum) (ICD-10 - K62.5)09/08/2024lack toe (ICD-10 - I96)09/27/2024Peripheral artery disease (ICD-10 - I73.9)02/08/2025 Left thyroid nodule (ICD-10 - E04.1)02/28/2025Wasp sting (ICD-10 - T63.461A) 5Back pain (ICD-10 - M54.9)08/11/2024ellulitis (ICD-10 - L03.90) warm soaks TID close monitoring if not improving, worsens, needs to seek medical care 09/08/2024RBPR (bright red blood per rectum) (ICD-10 - K62.5) referral to GI last colonoscopy 2021 increased BRBRP scant amt 09/08/2024lack toe (ICD-10 - I96) 2-3 weeks changed color numb was purple, red sore before that baby ASA daily , see wound care while waiting for aldo testing 09/09/2024lister (nonthermal), unspecified lesser toe(s), initial encounter (ICD-10 - S90.426A)09/09/2024Other injury of unspecified body region, initial encounter [...] of the discoloration. Blood Blister right 5th toe11/09/2024Overweight (ICD-10 - E66.3) work on diet discussed my fitness pal karol to track calories increase protein, decrease carbs int fasting? 12/27/2024Paronychia (ICD-10 - L03.019)continue warm soaks12/27/2024Wellness examination (ICD-10 - Z00.00) labs reviewed ROS done exam done recent mammogram follows with onc breast CA 02/08/2025Wasp sting (ICD-10 - T63.461A) rest push fluids otc allergy meds ok for off work note 04/25/2025Sinus drainage (ICD-10 - J34.89)04/25/2025ody aches (ICD-10 - R52) 05/19/2025Overweight (ICD-10 - E66.3)05/19/2025ronchitis (ICD-10 - J40)fu if not /04/2025ack pain (ICD-10 - M54.9)04/25/2025OVID-19 (ICD-10 - U07.1)11/09/2024Fatigue (ICD-10 - R53.83)5Chronic cough (ICD-10 - R05.3)TRY OTC allergy pill and Llmygnd4811/09/2024History of breast cancer (ICD-10 - Z85.3) Plan [...] PANEL (CHOL/TRIG/HDL/LDL) 11/10/19 25 CBC WITH DIFF (EXP 05/2025) 09/11/2023 VITAMIN D, 25 LEVEL (TOTAL) 09/11/2023 VITAMIN D, 25 LEVEL (TOTAL) 11/09/2024 US Thyroid 02/04/2024 MRI Lumbar Spine w/o contrast 07/01/2025 UA DIP NONAUTO WO MICRO (20351) - IN OFF ICE 05/22/2023 Urine Culture 07/22/2023 Urine Culture 08/01/2023 URINE CULTURE 05/22/2023 URINE CULTURE 07/17/2023 Insulin Level 11/09/2024 Insulin Level 09/11/2023 Covid-19 PCR (CVDTBH) 12/25/2023 CULTURE URINE 05/27/2023 URINE MICROSCOPIC ONLY 08/01/2023 MG MAMM RT DIAG FU 11/28/2022 US THYROID 01/30/2023 THYROID PANEL (T4/TSH/FREE T3) 5 THYROID PANEL (T4/TSH/FREE T3) 4 ALDO Segmental Pressure Study of Lower Ex tremity 09/08/2024 MRI Thoracic Spine w/o contrast 07/01/20 25 CMP (COMP MET LAMBERT) w/eGFR CKD-EPI 2024 CBC WITH DIFF 11/09/2024 Insurance Providers Payer Name Payer Address Payer Phone Subscriber Number Group Number Insured Name Patient Relationship to Insured Coverage Start Date Coverage End Date [place] [address] [place] [address] [id number] Christy Highelf - patient is the [id number] 2022[facility] PLUSPO [address] [place] [id number] Renny High - patient is the [id number] 2018 Medical (General) History Medical History History ICD Code Left thyroid nodule E04.1 Cervical dysfunction M53.9 Chronic cough R05.3 Overweight E66.3 Paronychia of great toe L03.039 Fatigue R53.83 Rib pain on left side R07.81 Back pain M54.9 Colonic polyp K63.5 Dysuria R30.0 Ex-smoker for more than 1 year Z87.891 History of breast cancer Z85.3 Cystic acne L70.0 Surgical History Surgery Date(Month/Year) Bilateral Carpal Tunnel Surgery Left Side Masectomy with ReconstructionNeck SurgeryBack SurgeryWisdom Teeth ExtractionCataract Extraction- Bilateralbreast sdouomtug47/24
== END 2025-07-12 07:55 | disposition home or self-care (01) ==
LOC: MRI 07:54
PROVIDERS: PCP Nurse Practitioner Family; Visit Provider Nurse Practitioner Family
DX: M54.9 Dorsalgia, unspecified (principal); M51.369 Other intervertebral disc degeneration, lumbar region without mention of lumbar back pain or lower extremity pain; M51.34 Other intervertebral disc degeneration, thoracic region
CPT/HCPCS: 72146; 72148